=== PATIENT | female | born 1955 | race American Indian/Alaskan Native ===

== ENCOUNTER 2016-05-01 16:07 | Emergency (ER) | payer MEDICAID ==
[2016-05-01 19:19] LABS: Bilirubin,Urine NEG (Negative); Blood,Urine NEG (Negative); Ketones,Urine 20 mg/dL (Negative); Leukocyte Esterase,Urine NEG (Negative); Nitrite,Urine NEG (Negative); Urobilinogen,Urine < 2.0 mg/dL (<2.0)
[2016-05-01 19:20] LABS: Protein,Urine >500 mg/dL (Negative)
[2016-05-01 19:44] VITALS: BP 167/63
[2016-05-01] MEDS ORDERED: ZOFRAN IV ONE (20:19)
[2016-05-01] MEDS ORDERED: BENTYL IM ONE (20:20)
[2016-05-01 20:26] LABS: Basophils % (Auto) 0.7 % (0.0-1.8); Eosinophils % (Auto) 2.5 % (0.0-4.3); Hematocrit 37.4 % (30.3-42.9); Hemoglobin 11.8 gm/dl (10.1-14.3); Mean Corpuscular HGB Conc 32 % (30-34); Mean Corpuscular Hemoglobin 25 pg (28-32); Mean Corpuscular Volume 80 fl (79-97); Platelet Count 209 K/mm3 (140-440); Red Blood Count 4.66 M/mm3 (3.65-5.03); Red Cell Distribution Width 20.5 % (13.2-15.2); White Blood Count 6.1 K/mm3 (4.5-11.0)
--- NOTE | 2016-05-01 20:30 | Emergency Department Report ---
ED Abdominal Pain HPI - General Chief Complaint: Abdominal Pain Stated Complaint: ABDOMINAL PAIN Time Seen by Provider: 05/01/16 20:18 Source: patient, EMS Mode of arrival: Stretcher Limitations: Physical Limitation - History of Present Illness Initial Comments: Patient is a 61-year-old female with history of hypertension, diabetes, severe morbid obesity presented today because of abdominal pain. Patient states that she has had this pain on and off for the last many months and has been Vi here as well as another hospital for the pain. She states that she has a couple episodes of nonbloody nonbilious emesis over the last few days however she is having normal stool without any blood and at about 2 times a day. States she also ran out of her medications a week and half ago and has not made it to her primary doctor to have them refilled. No fevers, chills , dysuria, urinary frequency or any other new significant symptoms. Severity scale (0 -10): 0 - Related Data Home Medications Medication Instructions Recorded Confirmed Last Taken AtorvaSTATin [Lipitor] 20 mg PO QDAY 01/11/16 02/26/16 1 Day Ago 20 Citalopram [Celexa] 20 mg PO QDAY 01/11/16 02/26/16 1 Day Ago 20 Folic Acid [Folvite] 1 mg PO QDAY 01/11/16 02/26/16 1 Day Ago 1 Tizanidine HCl [tiZANidine] 2 mg PO Q8H 01/11/16 02/26/16 1 Day Ago 2 amLODIPine [Norvasc] 10 mg PO DAILY 01/11/16 02/26/16 1 Day Ago 10 Previous Rx's Medication Instructions Recorded Last Taken Type Furosemide [Lasix TAB] 40 mg PO DAILY #30 01/20/16 1 Day Ago Rx 40 Gabapentin [Gralise] 300 mg PO BID #30 01/20/16 1 Day Ago Rx 300 Insulin Glargine [Lantus VIAL] 20 units SUB-Q QAMDIAB 30 Days 01/20/16 1 Day Ago Rx 20 Insulin Glulisine [Apidra] 6 units SUB-Q AC 30 Days 01/20/16 1 Day Ago Rx 6 Bumetanide [Bumex] 1 mg PO QDAY #30 tablet 01/21/16 1 Day Ago Rx 1 Pantoprazole [Protonix TAB] 40 mg PO BID #60 tablet 01/21/16 1 Day Ago Rx 40 Warfarin [Coumadin] 5 mg PO QDAY #30 tablet 01/21/16 1 Day Ago Rx 5 HYDROcodone/APAP 5-325 [[place] 1 each PO Q6HR PRN #10 tablet 02/26/16 Unknown Rx 5-325 mg TAB] Acetaminophen [Acetaminophen TAB] 500 mg PO Q6HR #16 tablet 05/01/16 Unknown Rx Blood Sugar Diagnostic [Blood 1 each MC TIDAC #100 strip 05/01/16 Unknown Rx Glucose Test Strip] Allergies Allergy/AdvReac Type Severity Reaction Status Date / Time No Known Allergies Allergy Verified 01/11/16 00:24 ED Review of Systems ROS: Stated complaint: ABDOMINAL PAIN Other details as noted in HPI Comment: All other systems reviewed and negative Constitutional: denies: chills, fever Respiratory: denies: cough, shortness of breath Cardiovascular: denies: chest pain Gastrointestinal: abdominal pain Genitourinary: denies: dysuria Skin: denies: rash Psychiatric: denies: anxiety ED Past Medical Hx - Past Medical History Previous Medical History?: Yes Hx Hypertension: Yes Hx Congestive Heart Failure: Yes Hx Diabetes: Yes Additional medical history: High Cholesterol. morbid obesity - Social History Smoking Status: Never Smoker Substance Use Type: None - Medications Home Medications: Home Medications Medication Instructions Recorded Confirmed Last Taken Type AtorvaSTATin [Lipitor] 20 mg PO QDAY 01/11/16 02/26/16 1 Day Ago History 20 Citalopram [Celexa] 20 mg PO QDAY 01/11/16 02/26/16 1 Day Ago History 20 Folic Acid [Folvite] 1 mg PO QDAY 01/11/16 02/26/16 1 Day Ago History 1 Tizanidine HCl [tiZANidine] 2 mg PO Q8H 01/11/16 02/26/16 1 Day Ago History 2 amLODIPine [Norvasc] 10 mg PO DAILY 01/11/16 02/26/16 1 Day Ago History 10 Furosemide [Lasix TAB] 40 mg PO DAILY #30 01/20/16 02/26/16 1 Day Ago Rx 40 Gabapentin [Gralise] 300 mg PO BID #30 01/20/16 02/26/16 1 Day Ago Rx 300 Insulin Glargine [Lantus VIAL] 20 units SUB-Q QAMDIAB 30 Days 01/20/16 02/26/16 1 Day Ago Rx 20 Insulin Glulisine [Apidra] 6 units SUB-Q AC 30 Days 01/20/16 02/26/16 1 Day Ago Rx 6 Bumetanide [Bumex] 1 mg PO QDAY #30 tablet 01/21/16 02/26/16 1 Day Ago Rx 1 Pantoprazole [Protonix TAB] 40 mg PO BID #60 tablet 01/21/16 02/26/16 1 Day Ago Rx 40 Warfarin [Coumadin] 5 mg PO QDAY #30 tablet 01/21/16 02/26/16 1 Day Ago Rx 5 HYDROcodone/APAP 5-325 [[place] 1 each PO Q6HR PRN #10 tablet 02/26/16 Unknown Rx 5-325 mg TAB] Acetaminophen [Acetaminophen TAB] 500 mg PO Q6HR #16 tablet 05/01/16 Unknown Rx Blood Sugar Diagnostic [Blood 1 each MC TIDAC #100 strip 05/01/16 Unknown Rx Glucose Test Strip] ED Physical Exam - General Limitations: Physical Limitation General appearance: alert - Eye Eye exam: Present: normal appearance - ENT ENT exam: Present: mucous membranes dry - Respiratory Respiratory exam: Present: normal lung sounds bilaterally - Cardiovascular Cardiovascular Exam: Present: regular rate, normal heart sounds - GI/Abdominal GI/Abdominal exam: Present: soft, other (morbidly obese, mild diffuse tenderness , no guarding, no rebound). Absent: guarding, rebound - Neurological Exam Neurological exam: Present: alert, oriented X3 - Psychiatric Psychiatric exam: Present: normal affect ED Course Vital Signs 05/01/16 05/01/16 05/01/16 18:12 18:25 19:09 Temperature 98.2 F 98.2 F 98.4 F Pulse Rate 89 89 81 Respiratory 16 18 20 Rate Blood Pressure 158/85 Blood Pressure 158/85 167/63 [Left] O2 Sat by Pulse 99 99 Oximetry ED Medical Decision Making - Lab Data Result diagrams: 05/01/16 19:56 05/01/16 19:56 - Medical Decision Making Patient has chronic abdominal pain. Labs here are unremarkable other than hyperglycemia. Patient to receive 1 L normal saline boluses as 5 units of insulin. I discussed the results of the labs here with the patient. Given that the patient has chronic symptoms and no acute significant abnormalities and her exam or lab work, plan will be to discharge her. She understands and is okay with the plan to go home and follow-up with her primary doctor. Critical care attestation.: If time is entered above; I have spent that time in minutes in the direct care of this critically ill patient, excluding procedure time. ED Disposition Clinical Impression: Abdominal pain in female Disposition: DISCHARGED TO HOME OR SELFCARE Is pt being admited?: No Does the pt Need Aspirin: No Condition: Stable Instructions: Abdominal Pain (ED) Additional Instructions: Please follow up with your primary care doctor as well as it solutions architect in the next 3-5 days. Return to emergency room if you have worsening of your pain , or any new symptoms. Prescriptions: Acetaminophen [Acetaminophen TAB] 500 mg PO Q6HR #16 tablet Blood Sugar Diagnostic [Blood Glucose Test Strip] 1 each MC TIDAC #100 strip Referrals: PRIMARY CARE, [Primary Care Provider] - 3-5 Days Time of Disposition: 22:48
[2016-05-01 20:34] LABS: Alanine Aminotransferase 16 units/L (7-56); Albumin 2.7 g/dL (3.9-5); Albumin/Globulin Ratio 0.8 %; Alkaline Phosphatase 76 units/L (35-129); Anion Gap 15 mmol/L; BUN/Creatinine Ratio 5.55; Bilirubin,Total 0.5 mg/dL (0.1-1.2); Blood Urea Nitrogen 5 mg/dL (7-17); Calcium 8.6 mg/dL (8.4-10.2); Carbon Dioxide 30 mmol/L (22-30); Chloride 101.7 mmol/L (98-107); Glucose 341 mg/dL (65-100); Lipase 19 units/L (13-60); Potassium 4.4 mmol/L (3.6-5.0); Sodium 142 mmol/L (137-145); Total Protein 6.2 g/dL (6.3-8.2)
[2016-05-01] MEDS ORDERED: NACL 0.9% 1000 ML 1,000 ML IV ONE (21:12)
[2016-05-02] MEDS ORDERED: ZOFRAN PO ONE (02:11)
[2016-05-02] MEDS ORDERED: ZOFRAN ODT PO ONE (02:11)
== END 2016-05-02 03:39 | disposition home or self-care (01) ==
LOC: ED 16:07
DX: R10.9 Unspecified abdominal pain (principal); I10 Essential (primary) hypertension; I50.9 Heart failure, unspecified; E11.9 Type 2 diabetes mellitus without complications; E78.00 Pure hypercholesterolemia, unspecified; E66.01 Morbid (severe) obesity due to excess calories
CPT/HCPCS: 36415; 51702; 80053; 81001; 82962; 83690; 85025; 96361; 96372; 96374; 96375; 99284; J0500; J2405; J7030; J1815; Q0162

== ENCOUNTER 2016-07-08 22:24 | Inpatient (IN) | payer MEDICAID ==
[2016-07-09] MEDS ORDERED: ZOFRAN IV ONE (00:34)
[2016-07-09] MEDS ORDERED: DILAUDID IV ONE (00:34)
[2016-07-09 00:35] LABS: INR 1.12 (0.87-1.13)
[2016-07-09 00:50] LABS: Creatine Kinase MB < 1.0 ng/mL (0.0-4.0)
[2016-07-09 00:51] LABS: Alanine Aminotransferase 12 units/L (7-56); Albumin 1.8 g/dL (3.9-5); Albumin/Globulin Ratio 0.3 %; Alkaline Phosphatase 160 units/L (35-129); Anion Gap 24 mmol/L; Bilirubin,Total 0.5 mg/dL (0.1-1.2); Blood Urea Nitrogen 30 mg/dL (7-17); Calcium 8.7 mg/dL (8.4-10.2); Carbon Dioxide 18 mmol/L (22-30); Creatine Kinase 137 units/L (30-135); Glucose 241 mg/dL (65-100); Lipase 15 units/L (13-60); Potassium 5.8 mmol/L (3.6-5.0); Sodium 137 mmol/L (137-145); Total Protein 8.1 g/dL (6.3-8.2)
[2016-07-09 00:53] LABS: Hematocrit 39.4 % (30.3-42.9); Hemoglobin 12.2 gm/dl (10.1-14.3); Mean Corpuscular HGB Conc 31 % (30-34); Mean Corpuscular Volume 81 fl (79-97); Platelet Count 530 K/mm3 (140-440); Red Blood Count 4.86 M/mm3 (3.65-5.03); Red Cell Distribution Width 19.7 % (13.2-15.2); White Blood Count 8.5 K/mm3 (4.5-11.0)
[2016-07-09 00:54] LABS: Mean Corpuscular Hemoglobin 25 pg (28-32)
--- NOTE | 2016-07-09 00:54 | Emergency Department Report ---
ED Abdominal Pain HPI - General Chief Complaint: Abdominal Pain Stated Complaint: POSS SEPSIS Time Seen by Provider: 07/09/16 00:33 Source: patient, family, EMS, old records reviewed (patient was admitted here January 2016 for GI bleed, anemia, supratherapeutic INR on Coumadin. Patient states Coumadin was discontinued after this admission.) Mode of arrival: Stretcher Limitations: Altered Mental Status, Physical Limitation - History of Present Illness Initial Comments: 61-year-old female with a past medical history of morbid obesity, insulin dependent diabetes, diastolic CHF, hypertension, and elevated cholesterol presents to the hospital complaints of abdominal pain. Patient complains of generalized crampy intermittent abdominal pain rated as 9/10 in intensity. Worse with palpation. Patient has had nausea without vomiting and is tolerating by mouth intake. Patient had diarrhea for 3 days however, this stopped the last 2 days and she started to have a repeat bowel movement today. No reports of melena, hematochezia, or hematemesis. Patient is bedbound since last year. She has rehabilitation nurses and home care nurses come to the home to help her with her ADLs. For the past one week patient has had significant skin breakdown to her inner thighs upper leg area secondary to stool and urine contact. Patient presented to the ER covered in feces. Patient currently has hoarse voice secondary to crying all day as per . They are also complains of shortness of breath and worsening leg edema. They denies sleep apnea and BiPAP use. - Related Data Home Medications Medication Instructions Recorded Confirmed Last Taken AtorvaSTATin [Lipitor] 20 mg PO QDAY 01/11/16 02/26/16 1 Day Ago 20 Citalopram [Celexa] 20 mg PO QDAY 01/11/16 02/26/16 1 Day Ago 20 Folic Acid [Folvite] 1 mg PO QDAY 01/11/16 02/26/16 1 Day Ago 1 Tizanidine HCl [tiZANidine] 2 mg PO Q8H 01/11/16 02/26/16 1 Day Ago 2 amLODIPine [Norvasc] 10 mg PO DAILY 01/11/16 02/26/16 1 Day Ago 10 Previous Rx's Medication Instructions Recorded Last Taken Type Furosemide [Lasix TAB] 40 mg PO DAILY #30 01/20/16 1 Day Ago Rx 40 Gabapentin [Gralise] 300 mg PO BID #30 01/20/16 1 Day Ago Rx 300 Insulin Glargine [Lantus VIAL] 20 units SUB-Q QAMDIAB 30 Days 01/20/16 1 Day Ago Rx 20 Insulin Glulisine [Apidra] 6 units SUB-Q AC 30 Days 01/20/16 1 Day Ago Rx 6 Bumetanide [Bumex] 1 mg PO QDAY #30 tablet 01/21/16 1 Day Ago Rx 1 Pantoprazole [Protonix TAB] 40 mg PO BID #60 tablet 01/21/16 1 Day Ago Rx 40 Warfarin [Coumadin] 5 mg PO QDAY #30 tablet 01/21/16 1 Day Ago Rx 5 HYDROcodone/APAP 5-325 [[place] 1 each PO Q6HR PRN #10 tablet 02/26/16 Unknown Rx 5-325 mg TAB] Acetaminophen [Acetaminophen TAB] 500 mg PO Q6HR #16 tablet 05/01/16 Unknown Rx Blood Sugar Diagnostic [Blood 1 each MC TIDAC #100 strip 05/01/16 Unknown Rx Glucose Test Strip] Allergies Allergy/AdvReac Type Severity Reaction Status Date / Time No Known Allergies Allergy Verified 01/11/16 00:24 ED Review of Systems ROS: Stated complaint: POSS SEPSIS Other details as noted in HPI Comment: All other systems reviewed and negative Other: Constitutional: No fevers chills Eyes: No eye pain visual changes ENT: No ear pain or throat pain Neck: Denies pain Respiratory: Denies cough wheezing shortness of breath Cardiovascular: Denies chest pain, palpitations, syncope GI: as per hpi : Denies dysuria Musculoskeletal: Denies back pain Skin: as per hpi Neurologic: Denies headache, numbness, weakness Psychiatric: Denies suicidal ideation, hallucinations ED Past Medical Hx - Past Medical History Hx Hypertension: Yes Hx Congestive Heart Failure: Yes Hx Diabetes: Yes Additional medical history: High Cholesterol. morbid obesity - Surgical History Additional Surgical History: L ankle, lumpectomy - Social History Smoking Status: Never Smoker Substance Use Type: None - Medications Home Medications: Home Medications Medication Instructions Recorded Confirmed Last Taken Type AtorvaSTATin [Lipitor] 20 mg PO QDAY 01/11/16 02/26/16 1 Day Ago History 20 Citalopram [Celexa] 20 mg PO QDAY 01/11/16 02/26/16 1 Day Ago History 20 Folic Acid [Folvite] 1 mg PO QDAY 01/11/16 02/26/16 1 Day Ago History 1 Tizanidine HCl [tiZANidine] 2 mg PO Q8H 01/11/16 02/26/16 1 Day Ago History 2 amLODIPine [Norvasc] 10 mg PO DAILY 01/11/16 02/26/16 1 Day Ago History 10 Furosemide [Lasix TAB] 40 mg PO DAILY #30 01/20/16 02/26/16 1 Day Ago Rx 40 Gabapentin [Gralise] 300 mg PO BID #30 01/20/16 02/26/16 1 Day Ago Rx 300 Insulin Glargine [Lantus VIAL] 20 units SUB-Q QAMDIAB 30 Days 01/20/16 02/26/16 1 Day Ago Rx 20 Insulin Glulisine [Apidra] 6 units SUB-Q AC 30 Days 01/20/16 02/26/16 1 Day Ago Rx 6 Bumetanide [Bumex] 1 mg PO QDAY #30 tablet 01/21/16 02/26/16 1 Day Ago Rx 1 Pantoprazole [Protonix TAB] 40 mg PO BID #60 tablet 01/21/16 02/26/16 1 Day Ago Rx 40 Warfarin [Coumadin] 5 mg PO QDAY #30 tablet 01/21/16 02/26/16 1 Day Ago Rx 5 HYDROcodone/APAP 5-325 [[place] 1 each PO Q6HR PRN #10 tablet 02/26/16 Unknown Rx 5-325 mg TAB] Acetaminophen [Acetaminophen TAB] 500 mg PO Q6HR #16 tablet 05/01/16 Unknown Rx Blood Sugar Diagnostic [Blood 1 each TIDAC #100 strip 05/01/16 Unknown Rx Glucose Test Strip] ED Physical Exam - General Limitations: Altered Mental Status, Physical Limitation - Other Other exam information: General: Morbidly obese Head exam: Atraumatic, normocephalic Eyes exam: Normal appearance, pupils equal reactive to light, extraocular movements intact ENT: Moist mucous membrane, normal oropharynx Neck exam: Normal inspection, full range of motion, no meningismus nontender 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 Cardiovascular: Regular rate and rhythm Abdomen: Soft, nondistended, generalized abdominal tenderness Extremity: Full range of motion, b/l lower extremity edema Back: Normal Inspection, full range of motion, no tenderness Neurologic: Alert, oriented x3, cranial nerves intact, no motor or sensory deficit Psychiatric: normal affect, normal mood Skin: Patient has multiple skin ulcerations to the left labium, bilateral and left thighs, rectal area, and posterior thighs ED Course Vital Signs 07/08/16 07/08/16 07/08/16 22:45 23:38 23:50 Temperature 98.6 F Pulse Rate 85 Pulse Rate [ Bilateral Throughout] Respiratory 20 Rate Respiratory Rate [Bilateral Throughout] Blood Pressure 130/58 O2 Sat by Pulse 100 99 85 Oximetry 07/08/16 07/09/16 07/09/16 23:56 00:02 00:08 Temperature Pulse Rate Pulse Rate [ Bilateral Throughout] Respiratory Rate Respiratory Rate [Bilateral Throughout] Blood Pressure O2 Sat by Pulse 99 97 100 Oximetry 07/09/16 07/09/16 07/09/16 00:10 00:16 00:20 Temperature Pulse Rate Pulse Rate [ Bilateral Throughout] Respiratory 20 Rate Respiratory Rate [Bilateral Throughout] Blood Pressure O2 Sat by Pulse 100 97 96 Oximetry 07/09/16 07/09/16 07/09/16 00:26 00:30 00:36 Temperature Pulse Rate Pulse Rate [ Bilateral Throughout] Respiratory Rate Respiratory Rate [Bilateral Throughout] Blood Pressure O2 Sat by Pulse 97 69 L 97 Oximetry 07/09/16 07/09/16 07/09/16 00:40 00:46 00:51 Temperature Pulse Rate 80 Pulse Rate [ Bilateral Throughout] Respiratory 31 H Rate Respiratory Rate [Bilateral Throughout] Blood Pressure 101/46 101/46 101/46 O2 Sat by Pulse 97 100 96 Oximetry 07/09/16 07/09/16 01:45 02:25 Temperature Pulse Rate Pulse Rate [ 85 88 Bilateral Throughout] Respiratory Rate Respiratory 24 22 Rate [Bilateral Throughout] Blood Pressure O2 Sat by Pulse Oximetry - Reevaluation(s) Reevaluation #1: 07/09/16 04:45 repeat K ordered after meds. ED Medical Decision Making - Lab Data Result diagrams: 07/08/16 23:55 07/08/16 23:55 Lab Results 07/08/16 07/08/16 07/08/16 Range/Units 23:55 23:55 23:55 WBC 8.5 (4.5-11.0) K/mm3 RBC 4.86 (3.65-5.03) M/mm3 Hgb 12.2 (10.1-14.3) gm/dl Hct 39.4 (30.3-42.9) % MCV 81 (79-97) fl MCH 25 L (28-32) pg MCHC 31 (30-34) % RDW 19.7 H (13.2-15.2) % Plt Count 530 H (140-440) K/mm3 Add Manual Diff Complete Total Counted 100 Seg Neuts % (Manual) 47.0 (40.0-70.0) % Band Neutrophils % 21.0 % Lymphocytes % (Manual) 27.0 (13.4-35.0) % Reactive Lymphs % (Man) 0 % Monocytes % (Manual) 2.0 (0.0-7.3) % Eosinophils % (Manual) 0 (0.0-4.3) % Basophils % (Manual) 0 (0.0-1.8) % Metamyelocytes % 3.0 % Myelocytes % 0 % Promyelocytes % 0 % Blast Cells % 0 % Nucleated RBC % 4.0 H (0.0-0.9) % Seg Neutrophils # Man 4.0 (1.8-7.7) K/mm3 Band Neutrophils # 1.8 K/mm3 Lymphocytes # (Manual) 2.3 (1.2-5.4) K/mm3 Abs React Lymphs (Man) 0.0 K/mm3 Monocytes # (Manual) 0.2 (0.0-0.8) K/mm3 Eosinophils # (Manual) 0.0 (0.0-0.4) K/mm3 Basophils # (Manual) 0.0 (0.0-0.1) K/mm3 Metamyelocytes # 0.3 K/mm3 Myelocytes # 0.0 K/mm3 Promyelocytes # 0.0 K/mm3 Blast Cells # 0.0 K/mm3 WBC Morphology Not Reportable Hypersegmented Neuts Not Reportable Hyposegmented Neuts Not Reportable Hypogranular Neuts Not Reportable Smudge Cells Not Reportable Toxic Granulation Not Reportable Toxic Vacuolation Not Reportable Dohle Bodies Not Reportable Pelger-Huet Anomaly Not Reportable Feli Rods Not Reportable Platelet Estimate Consistent w auto Clumped Platelets Not Reportable Plt Clumps, EDTA Not Reportable Large Platelets Few Giant Platelets Not Reportable Platelet Satelliting Not Reportable Plt Morphology Comment Not Reportable RBC Morphology Not Reportable Dimorphic RBCs Not Reportable Polychromasia Not Reportable Hypochromasia 1+ Poikilocytosis Not Reportable Anisocytosis 1+ Microcytosis Not Reportable Macrocytosis Not Reportable Spherocytes Not Reportable Pappenheimer Bodies Not Reportable Sickle Cells Not Reportable Target Cells Not Reportable Tear Drop Cells Not Reportable Ovalocytes Not Reportable Helmet Cells Not Reportable [place] Bodies Not Reportable [place] Rings Not Reportable [place] Cells Not Reportable Bite Cells Not Reportable Crenated Cell Not Reportable Elliptocytes Not Reportable Acanthocytes (Spur) Not Reportable Rouleaux Not Reportable Hemoglobin C Crystals Not Reportable Schistocytes Not Reportable Malaria parasites Not Reportable Manny Bodies Not Reportable Hem Pathologist Commnt No PT 14.3 (12.2-14.9) Sec. INR 1.12 (0.87-1.13) APTT 20.0 L (24.2-36.6) Sec. Sodium 137 (137-145) mmol/L Potassium 5.8 H (3.6-5.0) mmol/L Chloride 101.0 (98-107) mmol/L Carbon Dioxide 18 L (22-30) mmol/L Anion Gap 24 mmol/L BUN 30 H (7-17) mg/dL Creatinine 1.0 (0.7-1.2) mg/dL Estimated GFR > 60 ml/min BUN/Creatinine Ratio 30.00 % Glucose 241 H (65-100) mg/dL Calcium 8.7 (8.4-10.2) mg/dL Total Bilirubin 0.5 (0.1-1.2) mg/dL AST 17 (5-40) units/L ALT 12 (7-56) units/L Alkaline Phosphatase 160 H (35-129) units/L Total Creatine Kinase 137 H (30-135) units/L CK-MB (CK-2) < 1.0 (0.0-4.0) ng/mL CK-MB (CK-2) Rel Index 0.7 (0-4) Troponin T 0.016 (0.00-0.029) ng/mL NT-Pro-B Natriuret Pep 3619 H (0-900) pg/mL Total Protein 8.1 (6.3-8.2) g/dL Albumin 1.8 L (3.9-5) g/dL Albumin/Globulin Ratio 0.3 % Lipase 15 (13-60) units/L - EKG Data -: EKG Interpreted by Me (nsr raet 76, marked sinus arrhythmia) - Medical Decision Making Patient received Dilaudid and Zofran. For hyperkalemia patient received D50, insulin, bicarbonate, Lasix, and albuterol. Repeat potassium ordered. Attempted to obtain a CT abdomen and pelvis however, patient needs to weight requirement however, patient will not fit circumferentially into the CT scanner. Patient has significant ulcerations and will require additional care and wound care. Patient admitted to the hospital for further treatment. york placed in ED due to significant skin breakdown - Differential Diagnosis gastroenteritis, diverticulitis, appendicitis, decubitus ulcers Critical Care Time: No Critical care attestation.: If time is entered above; I have spent that time in minutes in the direct care of this critically ill patient, excluding procedure time. ED Disposition Clinical Impression: Morbid obesity, Abdominal pain, Acute diarrhea, Acute on chronic diastolic ( congestive) heart failure, Decubitus ulcers, Hyperkalemia Disposition: OP ADMITTED IP TO THIS HOSP Is pt being admited?: Yes Condition: Stable Time of Disposition: 04:45 (Dr Crenshaw/hosp)
[2016-07-09] MEDS ORDERED: SODIUM BICARBONATE IV ONE (01:02)
[2016-07-09] MEDS ORDERED: PROVENTIL IH ONE (01:02)
[2016-07-09] MEDS ORDERED: LASIX IV ONE (01:02)
[2016-07-09] MEDS ORDERED: D50W (25GM) IV ONE (01:03)
[2016-07-09 01:45] LABS: Basophils % (Manual) 0 % (0.0-1.8); Blastocytes % (Manual) 0 %; Eosinophils % (Manual) 0 % (0.0-4.3)
[2016-07-09 01:46] LABS: Anisocytosis 1+; Diff Status Complete; Hypochromasia 1+; Large Platelets Few; Platelet Estimate Consistent w Auto
[2016-07-09] MEDS ORDERED: D50W (25GM) IV PRN ×2 (06:04→15:21)
[2016-07-09] MEDS ORDERED: MILK OF MAGNESIA PO PRN (06:04)
[2016-07-09] MEDS ORDERED: DULCOLAX PR PRN (06:04)
[2016-07-09] MEDS ORDERED: ZOFRAN IV PRN (06:04)
[2016-07-09] MEDS ORDERED: TYLENOL PO PRN (06:04)
--- NOTE | 2016-07-09 06:06 | History and Physical Report ---
History of Present Illness Date of examination: 07/09/16 History of present illness: 59-year-old woman with a history of hypertension, diabetes, CHF, hyperlipidemia , A. fib, morbid obesity, bedbound comes emergency room with complaints of abdominal pain that started 4 days ago. Abdominal pain is in the bilateral lower quadrants which she described as a sharp pain, intermittent in nature, unable to [place] the last 4, intensityv 6/10, no radiation and she cannot identify exacerbating or relieving factors. Patient stated that she has been constipated over the last 4 days, she took medication for constipation, and had diarrhea over the last 2 days. She's had skin breakdown between her legs, she states the cream that she's been using on is not working. She'll resume the emergency room covered in stool. Emergency room physician tried to obtain a CAT scan but the patient was unable to fit into CT there to body habitus. Also admits to nausea vomiting. Also admits to increasing lower extremity edema, shortness of breath, PND. She stated she was taken off her Lasix and Coumadin on the last admission Patient denies chest pain, palpitation, shortness of breath, cough, hematochezia, dysuria, frequency, focal weakness, dysarthria, fever chills, polydipsia polyuria, hot or cold intolerance, easy bruisability, or rash or bleeding from mucosal membrane, rhinorrhea, epistaxis, earache, tinnitus, blurry vision, eye discharge, anxiety, depression. Other review of systems negative PAST SURGICAL HISTORY: Ankle SOCIAL HISTORY: Denies alcohol, tobacco, drugs FAMILY HISTORY: Hypertension Medications and Allergies Allergies Allergy/AdvReac Type Severity Reaction Status Date / Time No Known Allergies Allergy Verified 01/11/16 00:24 Home Medications Medication Instructions Recorded Confirmed Last Taken Type AtorvaSTATin [Lipitor] 20 mg PO QDAY 01/11/16 02/26/16 1 Day Ago History 20 Citalopram [Celexa] 20 mg PO QDAY 01/11/16 02/26/16 1 Day Ago History 20 Folic Acid [Folvite] 1 mg PO QDAY 01/11/16 02/26/16 1 Day Ago History 1 Tizanidine HCl [tiZANidine] 2 mg PO Q8H 01/11/16 02/26/16 1 Day Ago History 2 amLODIPine [Norvasc] 10 mg PO DAILY 01/11/16 02/26/16 1 Day Ago History 10 Furosemide [Lasix TAB] 40 mg PO DAILY #30 01/20/16 02/26/16 1 Day Ago Rx 40 Gabapentin [Gralise] 300 mg PO BID #30 01/20/16 02/26/16 1 Day Ago Rx 300 Insulin Glargine [Lantus VIAL] 20 units SUB-Q QAMDIAB 30 Days 01/20/16 02/26/16 1 Day Ago Rx 20 Insulin Glulisine [Apidra] 6 units SUB-Q AC 30 Days 01/20/16 02/26/16 1 Day Ago Rx 6 Bumetanide [Bumex] 1 mg PO QDAY #30 tablet 01/21/16 02/26/16 1 Day Ago Rx 1 Pantoprazole [Protonix TAB] 40 mg PO BID #60 tablet 01/21/16 02/26/16 1 Day Ago Rx 40 Warfarin [Coumadin] 5 mg PO QDAY #30 tablet 01/21/16 02/26/16 1 Day Ago Rx 5 HYDROcodone/APAP 5-325 [[place] 1 each PO Q6HR PRN #10 tablet 02/26/16 Unknown Rx 5-325 mg TAB] Acetaminophen [Acetaminophen TAB] 500 mg PO Q6HR #16 tablet 05/01/16 Unknown Rx Blood Sugar Diagnostic [Blood 1 each TIDAC #100 strip 05/01/16 Unknown Rx Glucose Test Strip] Exam - Physical Exam Narrative exam: Gen. appearance: Patient lying in bed, no apparent distress HEENT: Normocephalic, atraumatic, pupils equally round and reactive to light, extraocular movement intact, and no sclericterus,. No JVD or thyromegaly or nodule,neck supple, no carotid bruit ,mucous membranes moist, no exudate or erythema Heart: S1, S2, regular rate and rhythm Lungs: Difficult to assess, breathing comfortable Abdomen: Positive bowel sounds, nontender, nondistended, no organomegaly Extremity:+edema, cyanosis, clubbing Skin: Skin breakdown on the right inner thighs, sacral decubitus, no nodules, warm, dry Neuro: Oriented 3, cranial nerves II-12 intact, speech is fluent, motor and sensory intact - Constitutional Vitals: Temp Pulse Resp BP Pulse Ox 98.6 F 84 29 H 94/49 100 07/08/16 22:45 07/09/16 04:40 07/09/16 04:40 07/09/16 04:40 07/09/16 04:20 Results - Labs CBC & Chem 7: 07/08/16 23:55 07/09/16 04:52 Labs: Abnormal lab results 07/08/16 07/08/16 07/08/16 Range/Units 23:55 23:55 23:55 MCH 25 L (28-32) pg RDW 19.7 H (13.2-15.2) % Plt Count 530 H (140-440) K/mm3 Nucleated RBC % 4.0 H (0.0-0.9) % APTT 20.0 L (24.2-36.6) Sec. Potassium 5.8 H (3.6-5.0) mmol/L Carbon Dioxide 18 L (22-30) mmol/L BUN 30 H (7-17) mg/dL Glucose 241 H (65-100) mg/dL Alkaline Phosphatase 160 H (35-129) units/L Total Creatine Kinase 137 H (30-135) units/L NT-Pro-B Natriuret Pep 3619 H (0-900) pg/mL Albumin 1.8 L (3.9-5) g/dL - Imaging and Cardiology EKG: image reviewed Chest x-ray: image reviewed Assessment and Plan CHF, acute on chronic diastolic Abdominal pain, unclear etiology, probably related to constipation Skin breakdown on the inner thighs, significant decubitus Hypertension Diabetes Hyperlipidemia A. fib Morbid obesity Admits medicine Diuresed with IV Lasix, hold RJ inhibitor secondary to renal failure the last admission, start aspirin Check cardiac enzymes, echo, consult cardiology Hold beta kalyani, blood pressure will not tolerate Monitor I's and O's, daily weights Obtain abdominal x-ray, consult wound care Check fingersticks and initiate insulin sliding scale Start DVT prophylaxis
[2016-07-09 06:56] LABS: Creatine Kinase MB < 1.0 ng/mL (0.0-4.0)
[2016-07-09 06:57] LABS: Creatine Kinase 93 units/L (30-135)
--- NOTE | 2016-07-09 07:02 | Admit Criteria Form ---
Admission Criteria Documentation: HEART FAILURE Clinical Indications for Admission to Inpatient Care (Place 'X' for any and all applicable criteria): Admission is indicated by ANY ONE of the following(1)(2)(3)(4): [ ]I. Severe electrolyte abnormalities requiring inpatient care(9) [ ]II. Hemodynamic instability [ ]III. Anasarca [ ]IV. Acute cardiac ischemia causing or associated with failure (Also use Angina or Myocardial Infarction as appropriate) [ ]V. Cardiac arrhythmias of immediate concern [ ]. Precipitating cause for acute decompensation (eg, pneumonia, pulmonary embolism) requires inpatient care [ ]VII. Pulmonary edema that is very severe (eg, mechanical ventilation needed, imminent or likely, need for 100% oxygen to keep oxygen saturation above 90%) [X ]VIII. Inpatient admission required rather than observation care (Also use Heart Failure: Observation Care as appropriate) because of ANY ONE of the following: [ ]a) Pulmonary edema that is severe or worsening as indicated by ALL of the following: [ ]i) New need for oxygen therapy to keep oxygen saturation above 90% (or increased FiO2 need from baseline) [ ]ii) Has not improved sufficiently with emergency department or observation care IV diuretics or other heart failure treatments[C] [ ]b) Cognitive impairment that is severe or persistent [ ]c) Increased creatinine (new on laboratory test) with reduction of more than 50% in estimated glomerular filtration rate from baseline. [ ]d) Acute renal insufficiency (progressively (ongoing) rising creatinine (known from past laboratory test) with reduction of more than 25% in estimated glomerular filtration rate from baseline) [ ]e) Acute peripheral ischemia (eg, pulseless, cool, mottled, or cyanotic extremity) [ ]f) Acute renal failure [ ]g) Supplemental O2 or respiratory treatment for >24 hr that are performable only in acute inpatient setting [ ]h) Pulmonary artery catheter monitoring [X ]i) Other condition, treatment or monitoring requiring inpatient admission [ ]IX. Contraindications and/or Inappropriate clinical situations for Observational Care in patients with Heart Failure, when ANY ONE of the following is required: [ ]a) Patient with High risk of cardiac embolism (e.g, patients with previous cardiac embolism, LVEF < 40%, age >75 and patients with prosthetic valve) 18 [ ]b) Patient with Moderate risk including DM patient, CAD and patient aged 65-75 [ ]c) Patient with any change in cardiac biomarker especially troponin should be managed as high risk in an inpatient setting 19 [ ]d) Physician judgement irrespective of ECG and other diagnostic findings 20 [ ]e) Patients with hyponatremia have high risk for mortality and require more extensive care and length of stay 21 [ ]f) Need for large volume diuresis 21 [ ]g) Presence of renal insufficiency or hypotension limiting speed of diuresis 21 [ ]h) Acute cardiac Ischemia in the elderly 21 [ ]i) Patients with a 30 day risk of mortality based on a multidimensional prognostic index (MPI) [J,]21 [X ]X. General contraindications and/or Inappropriate clinical situations for Observational Care in patients with Heart Failure, when ANY ONE of the following is required: [X ]a) Prediction of prolongation of LOS based on ANY ONE of the following may be considered as a contraindication for observational care 2, 3, 4, 5, 6, 7, 8 , 9, 10, 11 [ ]i) Age > 65 yrs. [ X]ii) Patient arriving by ambulance [ ]iii) Patient with high acuity [ ]iv) Patient requiring vital sign monitoring [ ]v) Patient on IV medication [ ]b) Systolic blood pressures 180mmHg 3,12 [ ]c) Patient with altered mental status including delirium and other alteration of consciousness, (3) [ ]d) Patient whose discharge disposition will be to a [place] [facility] home or rehabilitation home should not be managed in Emergency Department Observation Unit. CMS rule requires 3 days hospital stay before such placement.3,13 [ ]e) Patient with failure to thrive due to broad array of etiologies 3,16,17 [ ]f) Inability to ambulate 3,14 Extended stay beyond goal length of stay may be needed for(1)(3)(21)(25): [ ]a) Cardiac ischemia, confirmed or suspected as precipitant [ ]b) Cardiogenic shock or refractory pulmonary edema [ ]c) Acute kidney injury or renal failure [ ]d) Respiratory failure (eg, need for noninvasive or invasive mechanical ventilation) (23) [ ]e) Concomitant pneumonia or significant electrolyte abnormality (eg, severe hyponatremia) [ ]f) Newly diagnosed (new onset) atrial fibrillation [ ]g) Stage IV chronic kidney disease (estimated glomerular filtration rate of less than 30 mL/min/1.73m2 (0.50 mL/sec/1.73m2), and not previously on chronic dialysis The original [facility] content created by [facility] has been revised. The portions of the content which have been revised are identified through the use of italic text or in bold, and [facility] has neither reviewed nor approved the modified material. All other unmodified content is copyright [facility]. Please see references footnoted in the original [facility] edition 2016 Admission Criteria Met: Yes
--- NOTE | 2016-07-09 07:20 | XRay Report ---
ABDOMEN, 2 views: History: Abdominal pain. There is limited penetration secondary to body habitus. There is no evidence of free air beneath the diaphragms. The gas pattern within the abdomen is unremarkable. There is no evidence of bowel dilatation, significant air-fluid levels, or pathologic calcifications. Organ shadows are unremarkable. IMPRESSION: Unremarkable abdomen.
--- NOTE | 2016-07-09 09:37 | XRay Report ---
PORTABLE CHEST INDICATION: Shortness of breath. COMPARISON: 01/12/2016 FINDINGS: Portable, frontal chest radiographs, 2 images again demonstrate prominent/increased bronchovascular markings centrally and mild aortic knob calcifications. Mild exaggerated cardiomediastinal silhouette, though overall smaller since the prior exam. Slight mid to lower lung zones pulmonary haziness nonspecific and may in part be technical on this exam limited due to patient's body habitus. EKG leads. Stable bones. CONCLUSION: No significant acute chest process suspected radiographically, as described. Please correlate. Thank you for the opportunity to participate in this patient's care.
[2016-07-09] MEDS: ASPIRIN PO SCH (10:00)
[2016-07-09] MEDS: LOVENOX SUB-Q SCH (10:27)
--- NOTE | 2016-07-09 13:17 | Progress Note ---
Assessment and Plan Assessment and plan: Patient is a 61-year-old woman with a plethora comorbidities including extreme obesity BMI 73.2, type 2 diabetes mellitus, hypertension and diastolic heart failure who presents with abdominal pain abdominal x-ray unremarkable as well as chest x-ray although the proBNP is 3619 Suspect acute on chronic HFrEF Morbid obesity, bmi 73.2 causing most of these co-morbities, consider gastric bypass Severe protein malnurition, bmi 1.8, discuss gastric bypass History Interval history: Patient seen and examined. Follow up on abdominal pain which is slightly better. Overnight uneventful. No cp, sob, n/v or severe headaches. Imaging, old records, testing, labs, nursing notes reviewed. Plan discussed with patient. Hospitalist Physical - Physical exam Narrative exam: GEN: Morbid obesity BMI 73.2, NAD, AWAKE, ALERT, ORIENTATED 3 HEENT: NCAT, PERRL, EOMI, OP CLEAR NECK: SUPPLE, NO THYROMEGALY, NO JVD, NO LAD CVS: RRR, NORMAL S1S2 LUNGS/CHEST: CTA B, NORMAL CHEST EXPANSION B, GOOD AIR ENTRY B ABD: SOFT NTND, GBS, NO REBOUND OR GUARDING MSK: FROM X 4 EXTREMITIES NEURO: CN 2-12 GROSSLY INTACT, NO new FOCAL DEFICITS PSY: CALM - Constitutional Vitals: Temp Pulse Resp BP Pulse Ox 97.4 F L 81 24 92/44 100 07/09/16 12:00 07/09/16 08:16 07/09/16 08:16 07/09/16 08:16 07/09/16 08:16 Results - Labs CBC & Chem 7: 07/08/16 23:55 07/09/16 04:52 Labs: Laboratory Last Values WBC 8.5 K/mm3 (4.5-11.0) 07/08/16 23:55 RBC 4.86 M/mm3 (3.65-5.03) 07/08/16 23:55 Hgb 12.2 gm/dl (10.1-14.3) 07/08/16 23:55 Hct 39.4 % (30.3-42.9) 07/08/16 23:55 MCV 81 fl (79-97) 07/08/16 23:55 MCH 25 pg (28-32) L 07/08/16 23:55 MCHC 31 % (30-34) 07/08/16 23:55 RDW 19.7 % (13.2-15.2) H 07/08/16 23:55 Plt Count 530 K/mm3 (140-440) H 07/08/16 23:55 Add Manual Diff Complete 07/08/16 23:55 Total Counted 100 07/08/16 23:55 Seg Neuts % (Manual) 47.0 % (40.0-70.0) 07/08/16 23:55 Band Neutrophils % 21.0 % 07/08/16 23:55 Lymphocytes % (Manual) 27.0 % (13.4-35.0) 07/08/16 23:55 Reactive Lymphs % (Man) 0 % 07/08/16 23:55 Monocytes % (Manual) 2.0 % (0.0-7.3) 07/08/16 23:55 Eosinophils % (Manual) 0 % (0.0-4.3) 07/08/16 23:55 Basophils % (Manual) 0 % (0.0-1.8) 07/08/16 23:55 Metamyelocytes % 3.0 % 07/08/16 23:55 Myelocytes % 0 % 07/08/16 23:55 Promyelocytes % 0 % 07/08/16 23:55 Blast Cells % 0 % 07/08/16 23:55 Nucleated RBC % 4.0 % (0.0-0.9) H 07/08/16 23:55 Seg Neutrophils # Man 4.0 K/mm3 (1.8-7.7) 07/08/16 23:55 Band Neutrophils # 1.8 K/mm3 07/08/16 23:55 Lymphocytes # (Manual) 2.3 K/mm3 (1.2-5.4) 07/08/16 23:55 Abs React Lymphs (Man) 0.0 K/mm3 07/08/16 23:55 Monocytes # (Manual) 0.2 K/mm3 (0.0-0.8) 07/08/16 23:55 Eosinophils # (Manual) 0.0 K/mm3 (0.0-0.4) 07/08/16 23:55 Basophils # (Manual) 0.0 K/mm3 (0.0-0.1) 07/08/16 23:55 Metamyelocytes # 0.3 K/mm3 07/08/16 23:55 Myelocytes # 0.0 K/mm3 07/08/16 23:55 Promyelocytes # 0.0 K/mm3 07/08/16 23:55 Blast Cells # 0.0 K/mm3 07/08/16 23:55 WBC Morphology Not Reportable 07/08/16 23:55 Hypersegmented Neuts Not Reportable 07/08/16 23:55 Hyposegmented Neuts Not Reportable 07/08/16 23:55 Hypogranular Neuts Not Reportable 07/08/16 23:55 Smudge Cells Not Reportable 07/08/16 23:55 Toxic Granulation Not Reportable 07/08/16 23:55 Toxic Vacuolation Not Reportable 07/08/16 23:55 Dohle Bodies Not Reportable 07/08/16 23:55 Pelger-Huet Anomaly Not Reportable 07/08/16 23:55 Feli Rods Not Reportable 07/08/16 23:55 Platelet Estimate Consistent w auto 07/08/16 23:55 Clumped Platelets Not Reportable 07/08/16 23:55 Plt Clumps, EDTA Not Reportable 07/08/16 23:55 Large Platelets Few 07/08/16 23:55 Giant Platelets Not Reportable 07/08/16 23:55 Platelet Satelliting Not Reportable 07/08/16 23:55 Plt Morphology Comment Not Reportable 07/08/16 23:55 RBC Morphology Not Reportable 07/08/16 23:55 Dimorphic RBCs Not Reportable 07/08/16 23:55 Polychromasia Not Reportable 07/08/16 23:55 Hypochromasia 1+ 07/08/16 23:55 Poikilocytosis Not Reportable 07/08/16 23:55 Anisocytosis 1+ 07/08/16 23:55 Microcytosis Not Reportable 07/08/16 23:55 Macrocytosis Not Reportable 07/08/16 23:55 Spherocytes Not Reportable 07/08/16 23:55 Pappenheimer Bodies Not Reportable 07/08/16 23:55 Sickle Cells Not Reportable 07/08/16 23:55 Target Cells Not Reportable 07/08/16 23:55 Tear Drop Cells Not Reportable 07/08/16 23:55 Ovalocytes Not Reportable 07/08/16 23:55 Helmet Cells Not Reportable 07/08/16 23:55 [place] Bodies Not Reportable 07/08/16 23:55 [place] Rings Not Reportable 07/08/16 23:55 Dana Cells Not Reportable 07/08/16 23:55 Bite Cells Not Reportable 07/08/16 23:55 Crenated Cell Not Reportable 07/08/16 23:55 Elliptocytes Not Reportable 07/08/16 23:55 Acanthocytes (Spur) Not Reportable 07/08/16 23:55 Rouleaux Not Reportable 07/08/16 23:55 Hemoglobin C Crystals Not Reportable 07/08/16 23:55 Schistocytes Not Reportable 07/08/16 23:55 Malaria parasites Not Reportable 07/08/16 23:55 Manny Bodies Not Reportable 07/08/16 23:55 Hem Pathologist Commnt No 07/08/16 23:55 PT 14.3 Sec. (12.2-14.9) 07/08/16 23:55 INR 1.12 (0.87-1.13) 07/08/16 23:55 APTT 20.0 Sec. (24.2-36.6) L 07/08/16 23:55 Sodium 137 mmol/L (137-145) 07/08/16 23:55 Potassium 4.6 mmol/L (3.6-5.0) D 07/09/16 04:52 Chloride 101.0 mmol/L (98-107) 07/08/16 23:55 Carbon Dioxide 18 mmol/L (22-30) L 07/08/16 23:55 Anion Gap 24 mmol/L 07/08/16 23:55 BUN 30 mg/dL (7-17) H 07/08/16 23:55 Creatinine 1.0 mg/dL (0.7-1.2) 07/08/16 23:55 Estimated GFR > 60 ml/min 07/08/16 23:55 BUN/Creatinine Ratio 30.00 % 07/08/16 23:55 Glucose 241 mg/dL (65-100) H 07/08/16 23:55 POC Glucose 188 (70-105) H 07/09/16 12:18 Calcium 8.7 mg/dL (8.4-10.2) 07/08/16 23:55 Total Bilirubin 0.5 mg/dL (0.1-1.2) 07/08/16 23:55 AST 17 units/L (5-40) 07/08/16 23:55 ALT 12 units/L (7-56) 07/08/16 23:55 Alkaline Phosphatase 160 units/L (35-129) H 07/08/16 23:55 Total Creatine Kinase 93 units/L (30-135) 07/09/16 04:52 CK-MB (CK-2) < 1.0 ng/mL (0.0-4.0) 07/09/16 04:52 CK-MB (CK-2) Rel Index 1.0 (0-4) 07/09/16 04:52 Troponin T 0.011 ng/mL (0.00-0.029) 07/09/16 04:52 NT-Pro-B Natriuret Pep 3619 pg/mL (0-900) H 07/08/16 23:55 Total Protein 8.1 g/dL (6.3-8.2) 07/08/16 23:55 Albumin 1.8 g/dL (3.9-5) L 07/08/16 23:55 Albumin/Globulin Ratio 0.3 % 07/08/16 23:55 Lipase 15 units/L (13-60) 07/08/16 23:55
[2016-07-09 14:15] LABS: Creatine Kinase 101 units/L (30-135)
[2016-07-09 14:19] LABS: Creatine Kinase MB < 1.0 ng/mL (0.0-4.0)
[2016-07-09] MEDS ORDERED: NACL 0.9% 500 ML 500 ML IV ONE (14:37)
--- NOTE | 2016-07-09 15:03 | Consultation ---
History of Present Illness Consult date: 07/09/16 Consult reason: congestive heart failure History of present illness: This is a 61yr old woman whom is morbidly obese and bedridden was brought to the ED with complaints of abdominal pain and shortness of breath. Patient is poor historian. Patient unable to articulate prior cardiac history. She denies chest pain. An ECG shows a sinus rhythm with occasional sinus arrhythmia. A chest x-ray reports no acute process. Cardiac consultation requested for CHF. Medications and Allergies Allergies Allergy/AdvReac Type Severity Reaction Status Date / Time No Known Allergies Allergy Verified 01/11/16 00:24 Home Medications Medication Instructions Recorded Confirmed Last Taken Type AtorvaSTATin [Lipitor] 20 mg PO QDAY 01/11/16 07/09/16 07/08/16 History Citalopram [Celexa] 20 mg PO QDAY 01/11/16 07/09/16 07/08/16 History Folic Acid [Folvite] 1 mg PO QDAY 01/11/16 07/09/16 07/08/16 History Tizanidine HCl [tiZANidine] 2 mg PO Q8H 01/11/16 07/09/16 07/08/16 History amLODIPine [Norvasc] 10 mg PO DAILY 01/11/16 07/09/16 07/08/16 History Furosemide [Lasix TAB] 40 mg PO DAILY #30 01/20/16 07/09/16 07/08/16 Rx Gabapentin [Gralise] 300 mg PO BID #30 01/20/16 07/09/16 07/08/16 Rx Insulin Glargine [Lantus VIAL] 20 units SUB-Q QAMDIAB 30 Days 01/20/16 07/09/16 07/08/16 Rx Insulin Glulisine [Apidra] 6 units SUB-Q AC 30 Days 01/20/16 07/09/16 07/08/16 Rx Bumetanide [Bumex] 1 mg PO QDAY #30 tablet 01/21/16 07/09/16 07/08/16 Rx Pantoprazole [Protonix TAB] 40 mg PO BID #60 tablet 01/21/16 07/09/16 07/08/16 Rx Warfarin [Coumadin] 5 mg PO QDAY #30 tablet 01/21/16 07/09/16 07/08/16 Rx HYDROcodone/APAP 5-325 [[place] 1 each PO Q6HR PRN #10 tablet 02/26/16 07/09/16 Rx 5-325 mg TAB] Acetaminophen [Acetaminophen TAB] 500 mg PO Q6HR #16 tablet 05/01/16 07/09/16 Rx Blood Sugar Diagnostic [Blood 1 each TIDAC #100 strip 05/01/16 07/09/1607/08 Rx Glucose Test Strip] Active Meds: Active Medications Acetaminophen (Tylenol) 650 mg PO Q4H PRN PRN Reason: Pain MILD(1-3)/Fever >100.5/DUBOSE Acetaminophen/Hydrocodone Bitart ([place] 10/325) 1 each PO Q4H PRN PRN Reason: Pain , Severe (7-10) Aspirin (Aspirin) 325 mg PO QDAY KATHY Bisacodyl (Dulcolax) 10 mg VA QDAY PRN PRN Reason: Constipation unrelieved by MOM Dextrose (D50w (25gm)) 50 ml IV PRN PRN PRN Reason: Hypoglycemia Enoxaparin Sodium (Lovenox) 40 mg SUB-Q QDAY KATHY Furosemide (Lasix) 20 mg IV BID@0600,1800 KATHY Sodium Chloride (Nacl 0.9% 500 Ml) 500 mls @ 999 mls/hr IV ONCE ONE Stop: 07/09/16 15:07 Magnesium Hydroxide (Milk Of Magnesia) 30 ml PO Q4H PRN PRN Reason: Constipation Ondansetron HCl (Zofran) 4 mg IV Q8H PRN PRN Reason: N/V unrelieved by Reglan Physical Examination Vital Signs Temp Pulse Resp BP Pulse Ox 98.6 F 85 20 130/58 100 07/08/16 22:45 07/08/16 22:45 07/08/16 22:45 07/08/16 22:45 07/08/16 22:45 General appearance: obese Cardiac: Positive: Reg Rate and Rhythm Results 07/08/16 23:55 07/09/16 04:52 Cardiac Enzymes 07/09/16 Range/Units 13:53 CK-MB (CK-2) < 1.0 (0.0-4.0) ng/mL Assessment and Plan Abdominal pain Decubitus ulcers Morbidly obese Hypertension Diabetes mellitus EF 50-55% on echocardiogram.
[2016-07-09] MEDS: NOVOLOG SUB-Q SCH ×2 (17:00→23:04)
[2016-07-09] MEDS: LASIX IV SCH (17:38)
[2016-07-09] MEDS ORDERED: LASIX IV SCH (18:00)
[2016-07-09] MEDS: NORCO 10/325 PO PRN (20:17)
[2016-07-10] MEDS: NORCO 10/325 PO PRN ×2 (04:11→11:38)
[2016-07-10] MEDS: LASIX IV SCH (05:48)
[2016-07-10 06:49] LABS: Anion Gap 18 mmol/L; BUN/Creatinine Ratio 28.18; Blood Urea Nitrogen 31 mg/dL (7-17); Calcium 8.1 mg/dL (8.4-10.2); Carbon Dioxide 21 mmol/L (22-30); Chloride 103.4 mmol/L (98-107); Glucose 153 mg/dL (65-100); Potassium 5.6 mmol/L (3.6-5.0); Sodium 137 mmol/L (137-145)
[2016-07-10 07:30] LABS: Basophils % (Auto) 0.5 % (0.0-1.8); Eosinophils % (Auto) 1.5 % (0.0-4.3); Mean Corpuscular HGB Conc 32 % (30-34); Mean Corpuscular Volume 79 fl (79-97); Red Blood Count 3.56 M/mm3 (3.65-5.03); Red Cell Distribution Width 19.3 % (13.2-15.2); White Blood Count 15.2 K/mm3 (4.5-11.0)
[2016-07-10 07:43] LABS: Hemoglobin 9.9 gm/dl (10.1-14.3); Mean Corpuscular Hemoglobin 25 pg (28-32); Platelet Count 424 K/mm3 (140-440)
[2016-07-10] MEDS: NOVOLOG SUB-Q SCH ×2 (08:00→12:34)
[2016-07-10] MEDS ORDERED: KIONEX PO ONE (10:00)
--- NOTE | 2016-07-10 10:27 | Progress Note ---
Assessment and Plan Chronic lymphedema Morbid obesity Chronically bedridden Cardiomegaly, preserved LVEF Anemia Leukocytosis Hyperkalemia Recommendations: No cardiac recommendations for chronic lymphedema resulting from morbid obesity and a bedridden status Continue diuresis and afterload reduction Subjective Date of service: 07/10/16 Principal diagnosis: Lymphedema Interval history: Patient denies chest pain or shortness of breath Objective Vital Signs Temp Pulse Resp Resp Resp BP Pulse Ox 07/10/16 08:00 97.5 F L 07/10/16 07:00 74 21 113/48 95 07/10/16 06:00 69 19 121/54 91 07/10/16 05:22 70 99 07/10/16 05:11 12 07/10/16 04:24 97.4 F L 07/10/16 04:11 14 07/10/16 04:00 68 22 105/39 99 07/10/16 03:00 69 23 112/53 96 07/10/16 02:00 70 23 97/40 98 07/10/16 01:00 70 24 99/38 96 07/10/16 00:42 97.9 F 07/10/16 00:00 71 23 99/43 96 07/09/16 23:26 71 07/09/16 23:00 71 24 97/40 95 07/09/16 22:00 72 22 101/36 92 07/09/16 21:59 100 07/09/16 21:17 25 H 07/09/16 21:00 71 25 H 115/39 100 07/09/16 20:17 24 07/09/16 20:15 20 20 20 100 07/09/16 20:07 98.1 F 07/09/16 20:00 74 20 116/51 100 07/09/16 19:32 76 27 H 91/34 07/09/16 19:20 78 28 H 91/34 07/09/16 19:10 75 29 H 91/34 97 07/09/16 19:00 71 29 H 91/34 95 07/09/16 18:50 73 29 H 97/38 96 07/09/16 18:40 74 25 H 97/38 98 07/09/16 18:30 66 27 H 97/38 96 07/09/16 18:20 71 24 97/38 98 07/09/16 18:10 71 28 H 97/38 99 07/09/16 18:00 72 19 97/38 82 L 07/09/16 17:50 74 18 114/42 96 07/09/16 17:40 75 16 114/42 99 07/09/16 17:30 76 27 H 92/35 99 07/09/16 17:28 98 07/09/16 17:20 77 29 H 92/35 97 07/09/16 17:10 74 26 H 92/35 96 07/09/16 17:00 74 27 H 92/35 96 07/09/16 16:50 76 28 H 92/35 97 07/09/16 16:40 75 27 H 92/35 99 07/09/16 16:30 71 28 H 92/35 100 07/09/16 16:20 76 23 92/35 93 07/09/16 16:10 77 25 H 92/35 100 07/09/16 16:00 98.0 F 74 24 92/35 99 07/09/16 15:50 79 21 92/35 100 07/09/16 15:40 73 24 92/35 96 07/09/16 15:30 74 26 H 92/35 94 07/09/16 15:20 76 24 92/35 97 07/09/16 15:10 76 25 H 92/35 97 07/09/16 15:00 77 26 H 92/35 95 07/09/16 14:50 75 23 77/41 96 07/09/16 14:40 77 26 H 77/41 96 07/09/16 14:30 76 27 H 83/44 95 07/09/16 14:20 77 25 H 83/44 98 07/09/16 14:10 74 26 H 83/44 97 07/09/16 14:00 74 26 H 83/44 93 07/09/16 13:50 76 25 H 83/44 99 07/09/16 13:40 79 20 83/44 100 07/09/16 13:30 76 21 101/33 96 07/09/16 13:20 78 22 101/33 99 07/09/16 13:10 77 25 H 101/33 98 07/09/16 13:00 81 24 101/33 97 07/09/16 12:50 86 19 101/33 100 07/09/16 12:40 81 23 101/33 100 07/09/16 12:30 77 26 H 101/33 100 07/09/16 12:20 77 22 101/33 100 07/09/16 12:10 75 24 101/33 100 07/09/16 12:00 97.4 F L 77 25 H 97/43 07/09/16 11:50 76 20 97/43 100 07/09/16 11:40 73 19 97/43 96 07/09/16 11:30 75 19 97/43 99 07/09/16 11:20 76 17 97/43 48 L 07/09/16 11:10 75 25 H 97/43 99 07/09/16 11:00 70 25 H 07/09/16 10:50 76 21 100 07/09/16 10:40 79 26 H 91 07/09/16 10:32 75 24 - Physical Examination General: Appears Well Neck: Positive: neck supple Cardiac: Positive: Reg Rate and Rhythm Lungs: Positive: Decreased Breath Sounds Extremities: Present: edema - Labs and Meds Cardiac Enzymes 07/09/16 Range/Units 13:53 CK-MB (CK-2) < 1.0 (0.0-4.0) ng/mL CBC 07/10/16 Range/Units 06:29 WBC 15.2 H (4.5-11.0) K/mm3 RBC 3.56 L (3.65-5.03) M/mm3 Hgb 9.9 L (10.1-14.3) gm/dl Hct 30.0 L D (30.3-42.9) % Plt Count 424 (140-440) K/mm3 Lymph # 4.0 (1.2-5.4) K/mm3 [place] # 2.0 H (0.0-0.8) K/mm3 Eos # 0.2 (0.0-0.4) K/mm3 Baso # 0.1 (0.0-0.1) K/mm3 Comprehensive Metabolic Panel 07/10/16 Range/Units 06:29 Sodium 137 (137-145) mmol/L Potassium 5.6 H D (3.6-5.0) mmol/L Chloride 103.4 (98-107) mmol/L Carbon Dioxide 21 L (22-30) mmol/L BUN 31 H (7-17) mg/dL Creatinine 1.1 (0.7-1.2) mg/dL Glucose 153 H (65-100) mg/dL Calcium 8.1 L (8.4-10.2) mg/dL - Imaging and Cardiology EKG: image reviewed
[2016-07-10] MEDS: LOVENOX SUB-Q SCH (10:42)
[2016-07-10] MEDS: ASPIRIN PO SCH (10:43)
[2016-07-10 11:48] VITALS: BP 122/51
--- NOTE | 2016-07-10 15:11 | Progress Note ---
Assessment and Plan Assessment and plan: Patient is a 61-year-old woman with a plethora comorbidities including extreme obesity BMI 73.2, type 2 diabetes mellitus, hypertension and diastolic heart failure who presents with abdominal pain shortness breath and inner thighs skin breakdown. Abdominal x-ray unremarkable as well as chest x-ray although the proBNP is 3619. Patient had just moved into her apartment with her after being at [facility] for quite some time. She refused placement, even though, She was found covered in feces with worsening skin breakdown in between her legs and inner thighs. Chronic HFrEF, stable Extreme obesity, bmi 80 causing most of these co-morbities, consider gastric bypass Severe protein malnurition, poa, bmi 1.8, discuss gastric bypass Severe pressure ulcers due to functional quadriplegia, poa most likely due to extreme obesity Hyperkalemia, gave kayexalate, repeat levels in am d.c home once cleared by DFAC and potassium level stable. History Interval history: Patient seen and examined. Follow up on abdominal pain which is slightly better. Overnight uneventful. No cp, sob, n/v or severe headaches. Imaging, old records, testing, labs, nursing notes reviewed. Plan discussed with patient. Hospitalist Physical - Physical exam Narrative exam: GEN: Morbid obesity BMI 80 NAD, AWAKE, ALERT, ORIENTATED 3 HEENT: NCAT, PERRL, EOMI, OP CLEAR NECK: SUPPLE, NO THYROMEGALY, NO JVD, NO LAD CVS: RRR, NORMAL S1S2 LUNGS/CHEST: CTA B, NORMAL CHEST EXPANSION B, GOOD AIR ENTRY B ABD: SOFT NTND, GBS, NO REBOUND OR GUARDING MSK: FROM X 4 EXTREMITIES NEURO: CN 2-12 GROSSLY INTACT, NO new FOCAL DEFICITS PSY: CALM - Constitutional Vitals: Temp Pulse Resp BP Pulse Ox 97.3 F L 78 13 122/51 100 07/10/16 12:00 07/10/16 11:00 07/10/16 11:00 07/10/16 11:00 07/10/16 11:00 General appearance: Present: obese Results - Labs CBC & Chem 7: 07/10/16 06:29 07/10/16 06:29 Labs: Laboratory Last Values WBC 15.2 K/mm3 (4.5-11.0) H 07/10/16 06:29 RBC 3.56 M/mm3 (3.65-5.03) L 07/10/16 06:29 Hgb 9.9 gm/dl (10.1-14.3) L 07/10/16 06:29 Hct 30.0 % (30.3-42.9) L D 07/10/16 06:29 MCV 79 fl (79-97) 07/10/16 06:29 MCH 25 pg (28-32) L 07/10/16 06: MCHC 32 % (30-34) 07/10/16 06:29 RDW 19.3 % (13.2-15.2) H 07/10/16 06:29 Plt Count 424 K/mm3 (140-440) 07/10/16 06:29 Lymph % (Auto) 26.0 % (13.4-35.0) 07/10/16 06:29 [place] % (Auto) 13.1 % (0.0-7.3) H 07/10/16 06:29 Eos % (Auto) 1.5 % (0.0-4.3) 07/10/16 06:29 Baso % (Auto) 0.5 % (0.0-1.8) 07/10/16 06:29 Lymph # 4.0 K/mm3 (1.2-5.4) 07/10/16 06:29 [place] # 2.0 K/mm3 (0.0-0.8) H 07/10/16 06:29 Eos # 0.2 K/mm3 (0.0-0.4) 07/10/16 06:29 Baso # 0.1 K/mm3 (0.0-0.1) 07/10/16 06:29 Add Manual Diff Complete 07/08/16 23:55 Total Counted 100 07/08/16 23:55 Seg Neutrophils % 58.9 % (40.0-70.0) 07/10/16 06:29 Seg Neuts % (Manual) 47.0 % (40.0-70.0) 07/08/16 23:55 Band Neutrophils % 21.0 % 07/08/16 23:55 Lymphocytes % (Manual) 27.0 % (13.4-35.0) 07/08/16 23:55 Reactive Lymphs % (Man) 0 % 07/08/16 23:55 Monocytes % (Manual) 2.0 % (0.0-7.3) 07/08/16 23:55 Eosinophils % (Manual) 0 % (0.0-4.3) 07/08/16 23:55 Basophils % (Manual) 0 % (0.0-1.8) 07/08/16 23:55 Metamyelocytes % 3.0 % 07/08/16 23:55 Myelocytes % 0 % 07/08/16 23:55 Promyelocytes % 0 % 07/08/16 23:55 Blast Cells % 0 % 07/08/16 23:55 Nucleated RBC % 4.0 % (0.0-0.9) H 07/08/16 23:55 Seg Neutrophils # 9.0 K/mm3 (1.8-7.7) H 07/10/16 06:29 Seg Neutrophils # Man 4.0 K/mm3 (1.8-7.7) 07/08/16 23:55 Band Neutrophils # 1.8 K/mm3 07/08/16 23:55 Lymphocytes # (Manual) 2.3 K/mm3 (1.2-5.4) 07/08/16 23:55 Abs React Lymphs (Man) 0.0 K/mm3 07/08/16 23:55 Monocytes # (Manual) 0.2 K/mm3 (0.0-0.8) 07/08/16 23:55 Eosinophils # (Manual) 0.0 K/mm3 (0.0-0.4) 07/08/16 23:55 Basophils # (Manual) 0.0 K/mm3 (0.0-0.1) 07/08/16 23:55 Metamyelocytes # 0.3 K/mm3 07/08/16 23:55 Myelocytes # 0.0 K/mm3 07/08/16 23:55 Promyelocytes # 0.0 K/mm3 07/08/16 23:55 Blast Cells # 0.0 K/mm3 07/08/16 23:55 WBC Morphology Not Reportable 07/08/16 23:55 Hypersegmented Neuts Not Reportable 07/08/16 23:55 Hyposegmented Neuts Not Reportable 07/08/16 23:55 Hypogranular Neuts Not Reportable 07/08/16 23:55 Smudge Cells Not Reportable 07/08/16 23:55 Toxic Granulation Not Reportable 07/08/16 23:55 Toxic Vacuolation Not Reportable 07/08/16 23:55 Dohle Bodies Not Reportable 07/08/16 23:55 Pelger-Huet Anomaly Not Reportable 07/08/16 23:55 Feli Rods Not Reportable 07/08/16 23:55 Platelet Estimate Consistent w auto 07/08/16 23:55 Clumped Platelets Not Reportable 07/08/16 23:55 Plt Clumps, EDTA Not Reportable 07/08/16 23:55 Large Platelets Few 07/08/16 23:55 Giant Platelets Not Reportable 07/08/16 23:55 Platelet Satelliting Not Reportable 07/08/16 23:55 Plt Morphology Comment Not Reportable 07/08/16 23:55 RBC Morphology Not Reportable 07/08/16 23:55 Dimorphic RBCs Not Reportable 07/08/16 23:55 Polychromasia Not Reportable 07/08/16 23:55 Hypochromasia 1+ 07/08/16 23:55 Poikilocytosis Not Reportable 07/08/16 23:55 Anisocytosis 1+ 07/08/16 23:55 Microcytosis Not Reportable 07/08/16 23:55 Macrocytosis Not Reportable 07/08/16 23:55 Spherocytes Not Reportable 07/08/16 23:55 Pappenheimer Bodies Not Reportable 07/08/16 23:55 Sickle Cells Not Reportable 07/08/16 23:55 Target Cells Not Reportable 07/08/16 23:55 Tear Drop Cells Not Reportable 07/08/16 23:55 Ovalocytes Not Reportable 07/08/16 23:55 Helmet Cells Not Reportable 07/08/16 23:55 [place] Bodies Not Reportable 07/08/16 23:55 [place] Rings Not Reportable 07/08/16 23:55 [place] Cells Not Reportable 07/08/16 23:55 Bite Cells Not Reportable 07/08/16 23:55 Crenated Cell Not Reportable 07/08/16 23:55 Elliptocytes Not Reportable 07/08/16 23:55 Acanthocytes (Spur) Not Reportable 07/08/16 23:55 Rouleaux Not Reportable 07/08/16 23:55 Hemoglobin C Crystals Not Reportable 07/08/16 23:55 Schistocytes Not Reportable 07/08/16 23:55 Malaria parasites Not Reportable 07/08/16 23:55 Manny Bodies Not Reportable 07/08/16 23:55 Hem Pathologist Commnt No 07/08/16 23:55 PT 14.3 Sec. (12.2-14.9) 07/08/16 23:55 INR 1.12 (0.87-1.13) 07/08/16 23:55 APTT 20.0 Sec. (24.2-36.6) L 07/08/16 23:55 Sodium 137 mmol/L (137-145) 07/10/16 06:29 Potassium 5.6 mmol/L (3.6-5.0) H D 07/10/16 06:29 Chloride 103.4 mmol/L (98-107) 07/10/16 06:29 Carbon Dioxide 21 mmol/L (22-30) L 07/10/16 06:29 Anion Gap 18 mmol/L 07/10/16 06:29 BUN 31 mg/dL (7-17) H 07/10/16 06:29 Creatinine 1.1 mg/dL (0.7-1.2) 07/10/16 06:29 Estimated GFR > 60 ml/min 07/10/16 06:29 BUN/Creatinine Ratio 28.18 % 07/10/16 06:29 Glucose 153 mg/dL (65-100) H 07/10/16 06:29 POC Glucose 206 (70-105) H 07/10/16 12:10 Calcium 8.1 mg/dL (8.4-10.2) L 07/10/16 06:29 Total Bilirubin 0.5 mg/dL (0.1-1.2) 07/08/16 23:55 AST 17 units/L (5-40) 07/08/16 23:55 ALT 12 units/L (7-56) 07/08/16 23:55 Alkaline Phosphatase 160 units/L (35-129) H 07/08/16 23:55 Total Creatine Kinase 101 units/L (30-135) 07/09/16 13:53 CK-MB (CK-2) < 1.0 ng/mL (0.0-4.0) 07/09/16 13:53 CK-MB (CK-2) Rel Index 0.9 (0-4) 07/09/16 13:53 Troponin T < 0.010 ng/mL (0.00-0.029) 07/09/16 13:53 NT-Pro-B Natriuret Pep 3619 pg/mL (0-900) H 07/08/16 23:55 Total Protein 8.1 g/dL (6.3-8.2) 07/08/16 23:55 Albumin 1.8 g/dL (3.9-5) L 07/08/16 23:55 Albumin/Globulin Ratio 0.3 % 07/08/16 23:55 Lipase 15 units/L (13-60) 07/08/16 23:55
--- NOTE | 2016-07-10 15:58 | Discharge Summary ---
Providers - Providers Date of Admission: 07/09/16 06:04 Date of discharge: 07/10/16 Attending physician: JENNIFER GOLDSTEIN 07/09/16 06:08 Consult to Physician [CONS] Routine Consulting Provider: GA PEREZ Reason For Exam: chf Place consult to:: cardiology Notified:: y If yes, spoke with:: miladis 07/09/16 06:28 Consult to Wound/ET Nurse [CONS] Routine Reason For Exam: wound eval 07/10/16 08:57 Consult to Case Management [CONS] Routine Services Needed at Discharge: Other Notified:: immigration case worker Phone number called:: [phone] Was contact made?: Yes Time called:: 09:11 Comment:: placement Primary care physician: LOG CHAIN WORKER Hospitalization Condition: Stable Hospital course: Patient is a 61-year-old woman with a plethora comorbidities including extreme obesity BMI 73.2, type 2 diabetes mellitus, hypertension and diastolic heart failure who presents with abdominal pain shortness breath and inner thighs skin breakdown. Abdominal x-ray unremarkable as well as chest x-ray although the proBNP is 3619. Patient had just moved into her apartment with her after being at [facility] for quite some time. She refused placement, even though, She was found covered in feces with worsening skin breakdown in between her legs and inner thighs. Chronic HFrEF, stable Extreme obesity, bmi 80 causing most of these co-morbities, consider gastric bypass Severe protein malnurition, poa, bmi 1.8, discuss gastric bypass Severe pressure ulcers due to functional quadriplegia, poa most likely due to extreme obesity Hyperkalemia, gave kayexalate, mild d.c home once cleared by DFAC Disposition: DISCHARGED TO HOME OR SELFCARE Core Measure Documentation - Palliative Care Palliative Care/ Comfort Measures: Not Applicable - Core Measures Any of the following diagnoses?: none - VTE Discharge Requirements Deep Vein Thrombosis/Pulmonary Embolism Present on Admission: No Has pt received <5 days of overlap therapy or INR<2.0: No Anticoagulant overlap therapy prescribed at discharge: No Contraindication No Overlap Therapy order at DC: Not Indicated Exam - Physical Exam Narrative exam: GEN: Morbid obesity BMI 80 NAD, AWAKE, ALERT, ORIENTATED 3 HEENT: NCAT, PERRL, EOMI, OP CLEAR NECK: SUPPLE, NO THYROMEGALY, NO JVD, NO LAD CVS: RRR, NORMAL S1S2 LUNGS/CHEST: CTA B, NORMAL CHEST EXPANSION B, GOOD AIR ENTRY B ABD: SOFT NTND, GBS, NO REBOUND OR GUARDING MSK: FROM X 4 EXTREMITIES NEURO: CN 2-12 GROSSLY INTACT, NO new FOCAL DEFICITS PSY: CALM - Constitutional Vitals: Temp Pulse Resp BP Pulse Ox 97.3 F L 78 13 122/51 100 07/10/16 12:00 07/10/16 11:00 07/10/16 11:00 07/10/16 11:00 07/10/16 11:00 Plan Follow up with: PRIMARY CARE, [Primary Care Provider] - 7 Days
== END 2016-07-10 15:45 | disposition home health service (06) | DRG 291 ==
LOC: ED 22:24 → 4A 07-09 06:04 → CC1 07-09 08:42
PROVIDERS: ADMIT Internal Medicine; ATTEND Internal Medicine
DX: I11.0 Hypertensive heart disease with heart failure (principal); E43 Unspecified severe protein-calorie malnutrition; R53.2 Functional quadriplegia; I50.33 Acute on chronic diastolic (congestive) heart failure; K59.00 Constipation, unspecified; R10.9 Unspecified abdominal pain; E78.5 Hyperlipidemia, unspecified; I89.0 Lymphedema, not elsewhere classified; L89.159 Pressure ulcer of sacral region, unspecified stage; I48.91 Unspecified atrial fibrillation; E87.5 Hyperkalemia; E66.01 Morbid (severe) obesity due to excess calories; E11.9 Type 2 diabetes mellitus without complications; Z74.01 Bed confinement status; Z68.45 Body mass index [BMI] 70 or greater, adult; Z79.4 Long term (current) use of insulin; Z82.49 Family history of ischemic heart disease and other diseases of the circulatory system
CPT/HCPCS: 36415; 71010; 74020; 80048; 80053; 82550; 82553; 82962; 83690; 83880; 84132; 84484; 85007; 85025; 85610; 85730; 93005; 93010; 93306; 94644; 94760; 96374; 96375; J1170; J1650; J1815; J1940; J2405; J7040

== ENCOUNTER 2016-08-29 15:47 | Inpatient (IN) | payer MEDICAID ==
[2016-08-29] MEDS ORDERED: ATIVAN ONE (16:59)
[2016-08-29] MEDS ORDERED: NACL 0.9% 1000 ML 1,000 ML ONE (17:02)
[2016-08-29] MEDS ORDERED: KETALAR ONE (17:11)
[2016-08-29] MEDS ORDERED: NACL 0.9% 500 ML 500 ML IV ONE ×2 (17:22→18:18)
[2016-08-29] MEDS ORDERED: KETALAR IV ONE ×8 (17:30→19:00)
[2016-08-29] MEDS ORDERED: ATIVAN IV ONE (17:31)
[2016-08-29] MEDS ORDERED: NACL 0.9% 1000 ML 1,000 ML IV ONE ×2 (17:39→19:13)
[2016-08-29 17:57] LABS: Hematocrit 25.4 % (30.3-42.9); Hemoglobin 7.7 gm/dl (10.1-14.3); Mean Corpuscular HGB Conc 30 % (30-34); Mean Corpuscular Hemoglobin 30 pg (28-32); Mean Corpuscular Volume 98 fl (79-97); Platelet Count 330 K/mm3 (140-440); Red Blood Count 2.58 M/mm3 (3.65-5.03); White Blood Count 10.2 K/mm3 (4.5-11.0)
[2016-08-29] MEDS ORDERED: QUELICIN IV ONE (17:59)
[2016-08-29] MEDS ORDERED: ARTIFICIAL TEARS OPHTH OINT OU PRN (18:03)
[2016-08-29] MEDS ORDERED: VASELINE LIP THERAPY TP PRN (18:03)
[2016-08-29 18:07] LABS: INR 1.34 (0.87-1.13)
[2016-08-29 18:19] LABS: Alanine Aminotransferase 47 units/L (7-56); Albumin 1.2 g/dL (3.9-5); Albumin/Globulin Ratio 0.2 %; Alkaline Phosphatase 384 units/L (35-129); Anion Gap 18 mmol/L; Blood Urea Nitrogen 9 mg/dL (7-17); Calcium 7.3 mg/dL (8.4-10.2); Carbon Dioxide 20 mmol/L (22-30); Chloride 99.2 mmol/L (98-107); Creatine Kinase 28 units/L (30-135); Glucose 104 mg/dL (65-100); Potassium 4.4 mmol/L (3.6-5.0); Sodium 133 mmol/L (137-145); Total Protein 6.2 g/dL (6.3-8.2)
[2016-08-29 18:21] LABS: Creatine Kinase MB < 1.0 ng/mL (0.0-4.0)
[2016-08-29 18:34] LABS: Blastocytes % (Manual) 0 %
[2016-08-29 18:35] LABS: Basophils % (Manual) 0 % (0.0-1.8); Eosinophils % (Manual) 0 % (0.0-4.3)
[2016-08-29 18:36] LABS: Anisocytosis 1+; Diff Status Complete; Platelet Estimate Consistent w Auto; Polychromasia 1+
--- NOTE | 2016-08-29 18:37 | Emergency Department Report ---
ED General Adult HPI - General Chief complaint: Altered Mental Status Stated complaint: AMS Time Seen by Provider: 08/29/16 18:12 Source: patient Mode of arrival: Stretcher Limitations: Physical Limitation - History of Present Illness Initial comments: Patient is transported via EMS and her provides limited historical information. He states he called the ambulance because she hasn't been " talking for 2 days". Patient has been aware and tracking was largely not responding to verbal stimuli. She has kept her eyes open but is otherwise non- verbal. states that she has previously been here and required intubation. I discussed her current intubation and resuscitation status and the had an extremely limited understanding of end-of-life issues. I was unable to make any headway in determining if he has ever considered this in a meaningful way. In any case, the did want all medical interventions. The patient presented with a blood pressure which was low or unobtainable. She did not have a fever. She is extremely morbidly obese, nonverbal and is not providing any history. Asked The states that the patient has been admitted here before for abdominal pain. Apparently she was admitted in June and . She also has a complaint of abdominal pain in April and in June. Diagnostic study must admit extremely limited secondary to her extreme obesity. The only diagnostic test I see is a plain x-ray of the abdomen. Echocardiogram at that time showed an ejection fraction of 50-55%. -: unknown Severity scale (0 -10): 4 - Related Data Home Medications Medication Instructions Recorded Confirmed Last Taken AtorvaSTATin [Lipitor] 20 mg PO QDAY 01/11/16 07/09/16 07/08/16 Citalopram [Celexa] 20 mg PO QDAY 01/11/16 07/09/16 07/08/16 Folic Acid [Folvite] 1 mg PO QDAY 01/11/16 07/09/16 07/08/16 Tizanidine HCl [tiZANidine] 2 mg PO Q8H 01/11/16 07/09/16 07/08/16 amLODIPine [Norvasc] 10 mg PO DAILY 01/11/16 07/09/16 07/08/16 Previous Rx's Medication Instructions Recorded Last Taken Type Furosemide [Lasix TAB] 40 mg PO DAILY #30 01/20/16 07/08/16 Rx Gabapentin [Gralise] 300 mg PO BID #30 01/20/16 07/08/16 Rx Insulin Glargine [Lantus VIAL] 20 units SUB-Q QAMDIAB 30 Days 01/20/16 07/08/16 Rx Insulin Glulisine [Apidra] 6 units SUB-Q AC 30 Days 01/20/16 07/08/16 Rx Bumetanide [Bumex 1 mg tab] 1 mg PO QDAY #30 tablet 01/21/16 07/08/16 Rx Pantoprazole [Protonix TAB] 40 mg PO BID #60 tablet 01/21/16 07/08/16 Rx Warfarin [Coumadin] 5 mg PO QDAY #30 tablet 01/21/16 07/08/16 Rx HYDROcodone/APAP 5-325 [[place] 1 each PO Q6HR PRN #10 tablet 02/26/16 07/08/16 Rx 5-325 mg TAB] Acetaminophen [Acetaminophen TAB] 500 mg PO Q6HR #16 tablet 05/01/16 07/08/16 Rx Blood Sugar Diagnostic [Blood 1 each MC TIDAC #100 strip 05/01/16 07/08/16 Rx Glucose Test Strip] Allergies Allergy/AdvReac Type Severity Reaction Status Date / Time No Known Allergies Allergy Verified 01/11/16 00:24 ED Review of Systems ROS: Stated complaint: AMS Other details as noted in HPI Comment: Unobtainable due to pts medical conditions ED Past Medical Hx - Past Medical History Previous Medical History?: Yes Hx Hypertension: Yes Hx Congestive Heart Failure: Yes Hx Diabetes: Yes Hx Asthma: No Hx COPD: No Hx HIV: No Additional medical history: High Cholesterol. morbid obesity - Surgical History Past Surgical History?: Yes Additional Surgical History: L ankle, lumpectomy - Social History Smoking Status: Never Smoker Substance Use Type: None - Medications Home Medications: Home Medications Medication Instructions Recorded Confirmed Last Taken Type AtorvaSTATin [Lipitor] 20 mg PO QDAY 01/11/16 07/09/16 07/08/16 History Citalopram [Celexa] 20 mg PO QDAY 01/11/16 07/09/16 07/08/16 History Folic Acid [Folvite] 1 mg PO QDAY 01/11/16 07/09/16 07/08/16 History Tizanidine HCl [tiZANidine] 2 mg PO Q8H 01/11/16 07/09/16 07/08/16 History amLODIPine [Norvasc] 10 mg PO DAILY 01/11/16 07/09/16 07/08/16 History Furosemide [Lasix TAB] 40 mg PO DAILY #30 01/20/16 07/09/16 07/08/16 Rx Gabapentin [Gralise] 300 mg PO BID #30 01/20/16 07/09/16 07/08/16 Rx Insulin Glargine [Lantus VIAL] 20 units SUB-Q QAMDIAB 30 Days 01/20/16 07/09/16 07/08/16 Rx Insulin Glulisine [Apidra] 6 units SUB-Q AC 30 Days 01/20/16 07/09/16 07/08/16 Rx Bumetanide [Bumex 1 mg tab] 1 mg PO QDAY #30 tablet 01/21/16 07/09/16 07/08/16 Rx Pantoprazole [Protonix TAB] 40 mg PO BID #60 tablet 01/21/16 07/09/16 07/08/16 Rx Warfarin [Coumadin] 5 mg PO QDAY #30 tablet 01/21/16 07/09/16 07/08/16 Rx HYDROcodone/APAP 5-325 [[place] 1 each PO Q6HR PRN #10 tablet 02/26/16 07/09/16 Rx 5-325 mg TAB] Acetaminophen [Acetaminophen TAB] 500 mg PO Q6HR #16 tablet 05/01/16 07/09/16 Rx Blood Sugar Diagnostic [Blood 1 each TIDAC #100 strip 05/01/16 07/09/1607/08 Rx Glucose Test Strip] ED Physical Exam - General Limitations: Physical Limitation General appearance: lethargic - Head Head exam: Present: atraumatic - Eye Eye exam: Absent: scleral icterus - ENT ENT exam: Present: mucous membranes dry - Neck Neck exam: Present: normal inspection. Absent: tenderness, meningismus - Respiratory Respiratory exam: Present: decreased breath sounds - Cardiovascular Cardiovascular Exam: Present: regular rate, normal rhythm. Absent: systolic murmur, diastolic murmur, rubs, gallop - GI/Abdominal GI/Abdominal exam: Present: soft, other (exam limited secondary to habitus). Absent: distended, tenderness - Extremities Exam Extremities exam: Present: other (there is extreme lymphedema of both legs all the way to the abdomen and beyond into the abdominal wall) - Back Exam Back exam: Present: other (unable to visualize) - Neurological Exam Neurological exam: Present: other (patient appears to be functionally paraplegic. In addition she does appear to be moving her arms with guarding and voluntary movement. She is however lethargic/stuporous. She doesn't respond to a sternal rub specifically.) - Psychiatric Psychiatric exam: Present: flat affect - Skin Skin exam: Present: other (lymph edema noted) ED Course Vital Signs 08/29/16 08/29/16 16:30 16:45 Temperature 97.2 F L Pulse Rate 80 90 Respiratory 16 Rate Blood Pressure 87/36 O2 Sat by Pulse 100 Oximetry - Reevaluation(s) Reevaluation #1: Nurse was able to get a 24-gauge line in the patient's right shoulder. This enabled sedation for central line placement the patient was given boluses of ketamine 50 mg. This was effective in enabling me to place a central line. A central line was placed in the left subclavian vein actually without much difficulty. I did attempt IJ unsuccessfully under ultrasound. There appears to be no readily accessible vessel there. Patient continued to be essentially altered/lethargic and obtunded. It did not seem likely that she could successfully protect her airway. Therefore she was electively intubated using an 8 Arabic endotracheal tube under direct laryngoscopy without difficulty. Patient did respond to a first liter of IV fluid healing a blood pressure over 100 systolic. She was found to be in lactic acidosis. Empiric antibiotics are ordered. The patient is admitted to the hospitalist service for further care and management. 08/29/16 18:46 - Central Line Placement Left IJ Consent Obtained: emergent situation Time Out Performed: No Patient Placed on Monitor/Pulse Ox: Yes MD Prep: mask, gown, gloves, other Central Line Prep: Povidone-Iodine 1% Ultrasound Used for Placement: Yes Central Line Lumen Inserted: triple Bloods Obtained for Lab: Yes Central Line Position: good blood return, all ports aspirated, flus, sutured in place with 3-0 Dressing Applied: Tegaderm Post Procedure X-Ray: tip of catheter in good p Patient Tolerated Procedure: well Complications: none - Intubation Sedative: Ketamine Paralytic: Succinylcholine Laryngoscope: Luciana Size: 4 ET Tube Size: 8 Other Airway Intervention: 22-23 Tube Secured Location: lips Tube Placement Confirmation: visualized tube passing t, no breath sounds over epi Patient Tolerated Procedure: well Intubation Complications: none ED Medical Decision Making - Lab Data Result diagrams: 08/29/16 17:40 08/29/16 17:40 - EKG Data -: EKG Interpreted by Me EKG shows normal: sinus rhythm, axis, intervals, QRS complexes, ST-T waves Rate: normal - EKG Data Nonspecific inferolateral ST T wave changes. Consider LVH. 08/29/16 19:00 - Radiology Data interpreted by me: Chest x-ray showed good line and tube placement. I don't see any other acute process. - Medical Decision Making Further diagnostic workup of this patient is going to be limited secondary to her weight. She is not eligible for any CAT scan procedure. She'll be admitted to the ICU for supportive care and further evaluation per the hospitalist staff. Critical care attestation.: If time is entered above; I have spent that time in minutes in the direct care of this critically ill patient, excluding procedure time. ED Disposition Clinical Impression: Lactic acidosis, Renal insufficiency Morbid obesity Qualifiers: Obesity type: unspecified obesity type Qualified Code(s): E66.01 - Morbid ( severe) obesity due to excess calories Altered mental status Qualifiers: Altered mental status type: unspecified Qualified Code(s): R41.82 - Altered mental status, unspecified Anemia Qualifiers: Anemia type: unspecified type Qualified Code(s): D64.9 - Anemia, unspecified Disposition: OP ADMITTED IP TO THIS HOSP Is pt being admited?: Yes Does the pt Need Aspirin: Yes Condition: Stable Referrals: PRIMARY CARE, [Primary Care Provider] - 3-5 Days Time of Disposition: 19:04
[2016-08-29 18:43] LABS: Cholesterol 130 mg/dL (50-199); HDL Cholesterol 3 mg/dL (40-59); LDL Cholesterol,Direct 82 mg/dL (50-130); Triglycerides 225 mg/dL (2-149)
[2016-08-29] MEDS ORDERED: NACL 0.9% 500 ML IV SCH (19:00)
[2016-08-29] MEDS ORDERED: ATIVAN 100 MG in NACL 0.9% 50 ML, VIAFLEX EMPTY CONTAINER 0 ML IV SCH (19:00)
[2016-08-29] MEDS ORDERED: BABY ASPIRIN PO ONE (19:05)
[2016-08-29] MEDS ORDERED: QUELICIN ONE (19:31)
[2016-08-29] MEDS ORDERED: AMIDATE IV ONE (19:31)
[2016-08-29] MEDS: ZOSYN/NS 4.5GM/100ML 4.5 GM/100 ML VIAL IV SCH (19:38)
[2016-08-29] MEDS ORDERED: PROTONIX IV ONE (19:43)
[2016-08-29] MEDS: LEVOPHED DRIP 4 MG/NS 250 ML 4 MG/250 ML BAG IV SCH (19:57)
[2016-08-29 19:58] LABS: ISTAT Base Excess -4; ISTAT HCO3 20.7; ISTAT PCO2 35.2 (35-45); ISTAT PH 7.378 (7.35-7.45); ISTAT PO2 57 (80-105); ISTAT SO2 89; ISTAT TCO2 22
--- NOTE | 2016-08-29 21:53 | Event Note ---
Date: 08/29/16 See H/P in reports Sepsis Acute resp failure Hypotensiom Morbid obesity IDDM
[2016-08-29] MEDS ORDERED: DULCOLAX PR PRN (21:57)
[2016-08-29] MEDS ORDERED: ZOFRAN IV PRN (21:57)
[2016-08-29] MEDS ORDERED: TYLENOL PO PRN (21:57)
[2016-08-29] MEDS ORDERED: MILK OF MAGNESIA PO PRN (21:57)
[2016-08-29] MEDS ORDERED: SODIUM BICARBONATE FEEDTUBE PRN (21:59)
[2016-08-29] MEDS ORDERED: SIMPLE SYRUP FEEDTUBE PRN ×2 (21:59)
[2016-08-29] MEDS ORDERED: PANCREAZE DR 10,500 UNIT FEEDTUBE PRN (21:59)
[2016-08-29] MEDS ORDERED: DUONEB 0.5 MG-3 MG/3 ML SOLN IH PRN (22:01)
--- NOTE | 2016-08-29 22:09 | History and Physical Report ---
History of Present Illness Date of examination: 08/29/16 Date of admission: 08/29/16 Medications and Allergies Allergies Allergy/AdvReac Type Severity Reaction Status Date / Time No Known Allergies Allergy Verified 01/11/16 00:24 Home Medications Medication Instructions Recorded Confirmed Last Taken Type AtorvaSTATin [Lipitor] 20 mg PO QDAY 01/11/16 07/09/16 07/08/16 History Citalopram [Celexa] 20 mg PO QDAY 01/11/16 07/09/16 07/08/16 History Folic Acid [Folvite] 1 mg PO QDAY 01/11/16 07/09/16 07/08/16 History Tizanidine HCl [tiZANidine] 2 mg PO Q8H 01/11/16 07/09/16 07/08/16 History amLODIPine [Norvasc] 10 mg PO DAILY 01/11/16 07/09/16 07/08/16 History Furosemide [Lasix TAB] 40 mg PO DAILY #30 01/20/16 07/09/16 07/08/16 Rx Gabapentin [Gralise] 300 mg PO BID #30 01/20/16 07/09/16 07/08/16 Rx Insulin Glargine [Lantus VIAL] 20 units SUB-Q QAMDIAB 30 Days 01/20/16 07/09/16 07/08/16 Rx Insulin Glulisine [Apidra] 6 units SUB-Q AC 30 Days 01/20/16 07/09/16 07/08/16 Rx Bumetanide [Bumex 1 mg tab] 1 mg PO QDAY #30 tablet 01/21/16 07/09/16 07/08/16 Rx Pantoprazole [Protonix TAB] 40 mg PO BID #60 tablet 01/21/16 07/09/16 07/08/16 Rx Warfarin [Coumadin] 5 mg PO QDAY #30 tablet 01/21/16 07/09/16 07/08/16 Rx HYDROcodone/APAP 5-325 [Echo 1 each PO Q6HR PRN #10 tablet 02/26/16 07/09/16 Rx 5-325 mg TAB] Acetaminophen [Acetaminophen TAB] 500 mg PO Q6HR #16 tablet 05/01/16 07/09/16 Rx Blood Sugar Diagnostic [Blood 1 each MC TIDAC #100 strip 05/01/16 07/09/1607/08 Rx Glucose Test Strip] Active Meds: Active Medications Acetaminophen (Tylenol) 650 mg PO Q4H PRN PRN Reason: Pain MILD(1-3)/Fever >100.5/DUBOSE Albuterol/Ipratropium (Duoneb 0.5 Mg-3 Mg/3 Ml Soln) 1 ampul IH Q6HRT KATHY Albuterol/Ipratropium (Duoneb 0.5 Mg-3 Mg/3 Ml Soln) 1 ampul IH Q3H PRN PRN Reason: Wheezing Lipase/Protease/Amylase (Pancreaze Dr 10,500 Unit) 1 each FEEDTUBE PRN PRN PRN Reason: For Clogged Feeding Tube Bisacodyl (Dulcolax) 10 mg HI QDAY PRN PRN Reason: Constipation unrelieved by MOM Furosemide (Lasix) 60 mg IV 0600,1800 KATHY Hydrophilic Ointment (Vaseline Lip Therapy) 1 applic TP Q2HR PRN PRN Reason: Dry Lips Lorazepam 100 mg/ Sodium Chloride/ Miscellaneous Information 100 mls @ 1 mls/ hr IV TITR KATHY; 1 MG/HR PRN Reason: Protocol Last Titration: 08/29/16 19:58 Dose: 2 mg/hr, 2 mls/hr Piperacillin Sod/Tazobactam Sod (Zosyn/Ns 4.5gm/100ml) 4.5 gm in 100 mls @ 200 mls/hr IV Q8H KATHY PRN Reason: Protocol Last Admin: 08/29/16 19:38 Dose: 200 mls/hr Norepinephrine (Levophed Drip 4 Mg/Ns 250 Ml) 4 mg in 250 mls @ 7.5 mls/hr IV TITR KATHY; 2 MCG/MIN PRN Reason: Protocol Last Titration: 08/29/16 20:54 Dose: 8 mcg/min, 30 mls/hr Levofloxacin/Dextrose (Levaquin 750mg/150ml) 750 mg in 150 mls @ 100 mls/hr IV Q24HR KATHY PRN Reason: Protocol Magnesium Hydroxide (Milk Of Magnesia) 30 ml PO Q4H PRN PRN Reason: Constipation Methylprednisolone Sodium Succinate (Solu-Medrol) 40 mg IV Q8HR KATHY Miscellaneous Medication (Insulin Glargine) 20 units SUB-Q QAMDIAB KATHY Multi-Ingred Cream/Lotion/Oil/Oint (Artificial Tears Ophth Oint) 1 applic OU Q4HR PRN PRN Reason: Dry Eye(s) Ondansetron HCl (Zofran) 4 mg IV Q8H PRN PRN Reason: N/V unrelieved by Reglan Potassium Chloride (K-Dur) 20 meq PO Q12H KATHY Simple Syrup (Simple Syrup) 15 ml FEEDTUBE PRN PRN PRN Reason: Hypoglycemia Simple Syrup (Simple Syrup) 30 ml FEEDTUBE PRN PRN PRN Reason: Hypoglycemia Sodium Bicarbonate (Sodium Bicarbonate) 325 mg FEEDTUBE PRN PRN PRN Reason: For Clogged Feeding Tube Sodium Chloride (Nacl 0.9% 500 Ml) 500 ml IV DIRECT KATHY Warfarin Sodium (Coumadin) 5 mg PO QDAY KATHY PRN Reason: Protocol Exam - Constitutional Vitals: Temp Pulse Resp BP Pulse Ox 97.3 F L 96 H 16 92/52 65 L 08/29/16 20:58 08/29/16 21:40 08/29/16 21:40 08/29/16 21:40 08/29/16 21:40 Results - Labs CBC & Chem 7: 08/29/16 17:40 08/29/16 17:40 Labs: Laboratory Last Values WBC 10.2 K/mm3 (4.5-11.0) 08/29/16 17:40 RBC 2.58 M/mm3 (3.65-5.03) L 08/29/16 17:40 Hgb 7.7 gm/dl (10.1-14.3) L 08/29/16 17:40 Hct 25.4 % (30.3-42.9) L 08/29/16 17:40 MCV 98 fl (79-97) H 08/29/16 17:40 MCH 30 pg (28-32) 08/29/16 17:40 MCHC 30 % (30-34) 08/29/16 17:40 RDW 23.0 % (13.2-15.2) H 08/29/16 17:40 Plt Count 330 K/mm3 (140-440) 08/29/16 17:40 Add Manual Diff Complete 08/29/16 17:40 Total Counted 100 08/29/16 17:40 Seg Neuts % (Manual) 70.0 % (40.0-70.0) 08/29/16 17:40 Band Neutrophils % 17.0 % 08/29/16 17:40 Lymphocytes % (Manual) 10.0 % (13.4-35.0) L 08/29/16 17:40 Reactive Lymphs % (Man) 0 % 08/29/16 17:40 Monocytes % (Manual) 3.0 % (0.0-7.3) 08/29/16 17:40 Eosinophils % (Manual) 0 % (0.0-4.3) 08/29/16 17:40 Basophils % (Manual) 0 % (0.0-1.8) 08/29/16 17:40 Metamyelocytes % 0 % 08/29/16 17:40 Myelocytes % 0 % 08/29/16 17:40 Promyelocytes % 0 % 08/29/16 17:40 Blast Cells % 0 % 08/29/16 17:40 Nucleated RBC % 3.0 % (0.0-0.9) H 08/29/16 17:40 Seg Neutrophils # Man 7.1 K/mm3 (1.8-7.7) 08/29/16 17:40 Band Neutrophils # 1.7 K/mm3 08/29/16 17:40 Lymphocytes # (Manual) 1.0 K/mm3 (1.2-5.4) L 08/29/16 17:40 Abs React Lymphs (Man) 0.0 K/mm3 08/29/16 17:40 Monocytes # (Manual) 0.3 K/mm3 (0.0-0.8) 08/29/16 17:40 Eosinophils # (Manual) 0.0 K/mm3 (0.0-0.4) 08/29/16 17:40 Basophils # (Manual) 0.0 K/mm3 (0.0-0.1) 08/29/16 17:40 Metamyelocytes # 0.0 K/mm3 08/29/16 17:40 Myelocytes # 0.0 K/mm3 08/29/16 17:40 Promyelocytes # 0.0 K/mm3 08/29/16 17:40 Blast Cells # 0.0 K/mm3 08/29/16 17:40 WBC Morphology Not Reportable 08/29/16 17:40 Hypersegmented Neuts Not Reportable 08/29/16 17:40 Hyposegmented Neuts Not Reportable 08/29/16 17:40 Hypogranular Neuts Not Reportable 08/29/16 17:40 Smudge Cells Not Reportable 08/29/16 17:40 Toxic Granulation Not Reportable 08/29/16 17:40 Toxic Vacuolation Not Reportable 08/29/16 17:40 Dohle Bodies Not Reportable 08/29/16 17:40 Pelger-Huet Anomaly Not Reportable 08/29/16 17:40 Feli Rods Not Reportable 08/29/16 17:40 Platelet Estimate Consistent w auto 08/29/16 17:40 Clumped Platelets Not Reportable 08/29/16 17:40 Plt Clumps, EDTA Not Reportable 08/29/16 17:40 Large Platelets Not Reportable 08/29/16 17:40 Giant Platelets Not Reportable 08/29/16 17:40 Platelet Satelliting Not Reportable 08/29/16 17:40 Plt Morphology Comment Not Reportable 08/29/16 17:40 RBC Morphology Not Reportable 08/29/16 17:40 Dimorphic RBCs Not Reportable 08/29/16 17:40 Polychromasia 1+ 08/29/16 17:40 Hypochromasia Not Reportable 08/29/16 17:40 Poikilocytosis Not Reportable 08/29/16 17:40 Anisocytosis 1+ 08/29/16 17:40 Microcytosis Not Reportable 08/29/16 17:40 Macrocytosis Not Reportable 08/29/16 17:40 Spherocytes Not Reportable 08/29/16 17:40 Pappenheimer Bodies Not Reportable 08/29/16 17:40 Sickle Cells Not Reportable 08/29/16 17:40 Target Cells Not Reportable 08/29/16 17:40 Tear Drop Cells Not Reportable 08/29/16 17:40 Ovalocytes Not Reportable 08/29/16 17:40 Helmet Cells Not Reportable 08/29/16 17:40 [place] Bodies Not Reportable 08/29/16 17:40 [place] Rings Not Reportable 08/29/16 17:40 Dana Cells Not Reportable 08/29/16 17:40 Bite Cells Not Reportable 08/29/16 17:40 Crenated Cell Not Reportable 08/29/16 17:40 Elliptocytes Not Reportable 08/29/16 17:40 Acanthocytes (Spur) Not Reportable 08/29/16 17:40 Rouleaux Not Reportable 08/29/16 17:40 Hemoglobin C Crystals Not Reportable 08/29/16 17:40 Schistocytes Not Reportable 08/29/16 17:40 Malaria parasites Not Reportable 08/29/16 17:40 Manny Bodies Not Reportable 08/29/16 17:40 Hem Pathologist Commnt No 08/29/16 17:40 PT 16.5 Sec. (12.2-14.9) H 08/29/16 17:40 INR 1.34 (0.87-1.13) H 08/29/16 17:40 APTT 29.5 Sec. (24.2-36.6) 08/29/16 17:40 POC ABG pH 7.378 (7.35-7.45) 08/29/16 19:48 POC ABG pCO2 35.2 (35-45) 08/29/16 19:48 POC ABG pO2 57 (80-105) L 08/29/16 19:48 POC ABG HCO3 20.7 08/29/16 19:48 POC ABG Total CO2 22 08/29/16 19:48 POC ABG O2 Sat 89 08/29/16 19:48 POC ABG Base Excess -4 08/29/16 19:48 VBG pH 7.366 (7.320-7.420) 08/29/16 17:40 FiO2 50 % 08/29/16 19:48 Sodium 133 mmol/L (137-145) L 08/29/16 17:40 Potassium 4.4 mmol/L (3.6-5.0) 08/29/16 17:40 Chloride 99.2 mmol/L (98-107) 08/29/16 17:40 Carbon Dioxide 20 mmol/L (22-30) L 08/29/16 17:40 Anion Gap 18 mmol/L 08/29/16 17:40 BUN 9 mg/dL (7-17) 08/29/16 17:40 Creatinine 1.5 mg/dL (0.7-1.2) H 08/29/16 17:40 Estimated GFR 43 ml/min 08/29/16 17:40 BUN/Creatinine Ratio 6.00 % 08/29/16 17:40 Glucose 104 mg/dL (65-100) H 08/29/16 17:40 POC Glucose 99 (70-105) 08/29/16 17:03 Lactic Acid 3.60 mmol/L (0.7-2.0) H* 08/29/16 20:10 Calcium 7.3 mg/dL (8.4-10.2) L 08/29/16 17:40 Phosphorus 3.30 mg/dL (2.5-4.5) 08/29/16 17:40 Magnesium 1.80 mg/dL (1.7-2.3) 08/29/16 17:40 Total Bilirubin 1.00 mg/dL (0.1-1.2) 08/29/16 17:40 AST 130 units/L (5-40) H 08/29/16 17:40 ALT 47 units/L (7-56) 08/29/16 17:40 Alkaline Phosphatase 384 units/L (35-129) H 08/29/16 17:40 Ammonia 73.0 umol/L (25-60) H 08/29/16 17:40 Total Creatine Kinase 28 units/L (30-135) L 08/29/16 17:40 CK-MB (CK-2) < 1.0 ng/mL (0.0-4.0) 08/29/16 17:40 CK-MB (CK-2) Rel Index 3.5 (0-4) 08/29/16 17:40 Troponin T 0.232 ng/mL (0.00-0.029) H* 08/29/16 17:40 NT-Pro-B Natriuret Pep 1712 pg/mL (0-900) H 08/29/16 17:40 Total Protein 6.2 g/dL (6.3-8.2) L 08/29/16 17:40 Albumin 1.2 g/dL (3.9-5) L 08/29/16 17:40 Albumin/Globulin Ratio 0.2 % 08/29/16 17:40 Triglycerides 225 mg/dL (2-149) H 08/29/16 17:40 Cholesterol 130 mg/dL (50-199) 08/29/16 17:40 LDL Cholesterol Direct 82 mg/dL (50-130) 08/29/16 17:40 HDL Cholesterol 3 mg/dL (40-59) L 08/29/16 17:40 Cholesterol/HDL Ratio 43.33 % 08/29/16 17:40 Blood Type O POSITIVE 08/29/16 18:15 Antibody Screen TNR 08/29/16 18:15 PATRICK Antibody Screen Negative 08/29/16 18:15 Crossmatch See Detail 08/29/16 18:15
[2016-08-29] MEDS ORDERED: NOVOLOG SUB-Q ONE (22:18)
[2016-08-29] MEDS ORDERED: PROVENTIL IH PRN (22:52)
--- NOTE | 2016-08-29 22:53 | Admit Criteria Form ---
Admission Criteria Documentation: SEPSIS and OTHER FEBRILE ILLNESS, W/O FOCAL INFECTION Clinical Indications for Admission to Inpatient Care ( Place 'X' for any and all applicable criteria): Admission is indicated for ANY ONE of the following (1)(2)(3)(4): [ ] I. Bacteremia [ ]II. Suspected or identified specific infection requiring hospitalization (eg, meningitis, endocarditis) [ ]III. Hemodynamic instability [ X]IV. Altered mental status [ ]V. Failure or unavailability of outpatient antimicrobial treatment [ ]. Hypoxemia [ ]VII. Seizures [ ]VIII. High-risk febrile neutropenia [ ]IX. Need for parenteral antibiotic in patient who is likely to abuse vascular access device (eg, injection drug user) [A](7) [ ]X. Temperature greater than 104.9 degrees F (40.5 degrees C) (oral) [ ]XI. Inpatient admission required rather than observation care because of ANY ONE of the following: [ ]1) Specific infection identified that is too severe for outpatient treatment or observation care trial [ ]2) Metabolic disorder (eg, hypoglycemia, hyperglycemia, metabolic acidosis) that is severe or persistent [ ]3) Temperature greater than 103.1 degrees F (39.5 degrees C) ( oral) that is not responsive to observation care treatment [ ]4) IV fluid to replace significant ongoing (eg, for over 24 hours) losses (> 3 L/m2 per day) [ ]5) Supplemental oxygen or respiratory treatments for over 24 hours that is performable only in acute inpatient setting [ ]6) Parenteral nutrition regimen need that must be implemented on inpatient basis [ ]7) Strict or protective (eg, laminar flow) isolation [ ]8) Other condition, treatment or monitoring requiring inpatient admission Extended stay beyond goal length of stay may be needed for(1)(3) [ ]a) Sepsis or septic shock(22) [ ]b) Positive blood cultures [ ]c) Insufficient oral intake [ ]d) High-risk febrile neutropenia(29)(30) [ ]e) Continued fever and clinical instability [ ]f) Clinically active comorbid illness (e.g,heart failure, renal failure , diabetes) The original [facility] content created by Suzie Nicolas has been revised. The portions of the content which have been revised are identified through the use of italic text or in bold, and Suzie Nicolas has neither reviewed nor approved the modified material. All other unmodified content is copyright [facility]. Please see references footnoted in the original [facility] edition 2016 Admission Criteria Met: Yes
--- NOTE | 2016-08-29 22:54 | XRay Report ---
FINAL REPORT PROCEDURE: XR ABDOMEN 1V AP TECHNIQUE: Abdominal series, including supine and upright AP views. HISTORY: OG tube placement COMPARISON: No prior studies are available for comparison. FINDINGS: Bowel gas pattern:Nonobstructive . Masses or calcifications:None . Bony structures:No significant abnormality . Pneumoperitoneum:None . Other:No significant findings. The NG tube is in the stomach. IMPRESSION: No acute abnormality. The NG tube is in the stomach.
[2016-08-29 22:58] LABS: Magnesium 1.8 mg/dL (1.7-2.3); Phosphorous 3.6 mg/dL (2.5-4.5); Prealbumin 0.12 g/L (0.200-0.400)
[2016-08-29] MEDS ORDERED: NACL 0.9% 1000 ML 1,000 ML IV SCH (23:00)
[2016-08-30] MEDS: DUONEB 0.5 MG-3 MG/3 ML SOLN IH SCH ×5 (02:51→20:06)
[2016-08-30] MEDS: ZOSYN/NS 4.5GM/100ML 4.5 GM/100 ML VIAL IV SCH ×3 (05:05→20:25)
[2016-08-30] MEDS: LEVOPHED DRIP 4 MG/NS 250 ML 4 MG/250 ML BAG IV SCH ×5 (05:24→22:34)
[2016-08-30] MEDS ORDERED: NON-FORMULARY (Insulin Glargine 20 UNITS) SUB-Q SCH (08:00)
[2016-08-30] MEDS: POTASSIUM CHLORIDE PO SCH ×4 (08:16→22:38)
[2016-08-30] MEDS: LEVEMIR SUB-Q SCH ×2 (08:18→11:17)
--- NOTE | 2016-08-30 08:23 | Progress Note ---
Assessment and Plan Assessment and plan: Records obtained from ER documentation of family Patient is a 61-year-old morbidly obese female past medical history of congestive heart failure, severe protein calorie malnutrition with BMI of 1.8, functional quadriplegia, type 2 diabetes mellitus, hypertension, multiple skin breakdown between legs and thighs per history presented to the hospital via EMS after the called EMS. The patient has not been verbally responsive for about 2 days. Although tracks and appears to be aware for involvement. By history patient has had intubations in the past history appears to have been unavailable apart from what is noted above. It appears patient has been admitted to the hospital in the past for CHF and also for abdominal pain with echocardiogram at that time showing ejection fraction of 50-55%. During the past admission patient was recommended for placement but refused. On presentation patient was felt to be able to maintain airway and intubated the ER and was admitted was also felt to be in florid heart failure with hemoglobin of 7.7 on the source of bleeding and shock syndrome with systolic pressures in the 70s requiring packed red blood cell transfusion * Acute toxic metabolic encephalopathy * Acute on chronic diastolic congestive heart failure * Acute on chronic respiratory failure * Septic shock with hypothermia * Hypercoagulable state * Severe anemia * Paroxysmal atrial fibrillation * Non-ST elevated NM * Acute on chronic kidney disease likely secondary to vasomotor nephropathy-POA * Transaminitis-elevated alkaline phosphatase and AST * Severe protein calorie malnutrition albumin 1.2 * Morbid obesity BMI 81.6 * PRESSURE ULCERS-POA PLAN: * Continue supportive care * Currently on the vent aspiration precautions sedation holiday as needed * Await cardiology, pump mechanic, nephrology consultation and input * Monitor electrolytes and replace as needed * Obtain CT of the brain * Obtain nutrition consultation * Continue antibiotics. Cultures revealed no growth to date. * Patient is on warfarin * We'll trend lactic acid. * He is better however if temperatures and improving. * Monitor his H&H * Is no neurological improvement will need a neurologic consultation * Continue Lasix, daily weights, strict ins and outs, * POOR prognosis 35 mins critical care time discussed with family member at bedside - he states patient was taken off warfarin months ago,. she was taking it for AFIB, but had low blood count. History Interval history: Patient seen and examined, remains intubated Hospitalist Physical - Physical exam Narrative exam: VITAL SIGNS: Reviewed. GENERAL: The patient appeared to be obese. Vital signs as documented. HEAD: No signs of head trauma. EYES: Pupils are equal. Extraocular motions intact. EARS: Hearing grossly intact. MOUTH: ET tube NECK: No adenopathy, no JVD. CHEST: Chest with decreased sounds bilaterally. No wheezes, rales, or rhonchi. CARDIAC: Regular rate and rhythm. S1 and S2, without murmurs, gallops, or rubs. VASCULAR: Lymphedema. Peripheral pulses normal and equal in all extremities. ABDOMEN: Soft, without detectable tenderness. Anasarca with edema extended to the abdominal [place] No sign of distention. No rebound or guarding, and no masses palpated. Bowel Sounds normal. MUSCULOSKELETAL: Good range of motion of all major joints. Extremities without clubbing, cyanosis or edema. NEUROLOGIC EXAM: Lethargic, stuporous PSYCHIATRIC: Mood flat SKIN: multiple pressure ulcers - - Constitutional Vitals: Temp Pulse Resp BP Pulse Ox 97.4 F L 76 18 101/59 100 08/30/16 08:00 08/30/16 08:18 08/30/16 08:18 08/30/16 07:43 08/30/16 07:43 Results - Labs CBC & Chem 7: 08/30/16 10:30 08/30/16 10:30 Labs: Laboratory Last Values WBC 10.2 K/mm3 (4.5-11.0) 08/29/16 17:40 RBC 2.58 M/mm3 (3.65-5.03) L 08/29/16 17:40 Hgb 7.7 gm/dl (10.1-14.3) L 08/29/16 17:40 Hct 25.4 % (30.3-42.9) L 08/29/16 17:40 MCV 98 fl (79-97) H 08/29/16 17:40 MCH 30 pg (28-32) 08/29/16 17:40 MCHC 30 % (30-34) 08/29/16 17:40 RDW 23.0 % (13.2-15.2) H 08/29/16 17:40 Plt Count 330 K/mm3 (140-440) 08/29/16 17:40 Add Manual Diff Complete 08/29/16 17:40 Total Counted 100 08/29/16 17:40 Seg Neuts % (Manual) 70.0 % (40.0-70.0) 08/29/16 17:40 Band Neutrophils % 17.0 % 08/29/16 17:40 Lymphocytes % (Manual) 10.0 % (13.4-35.0) L 08/29/16 17:40 Reactive Lymphs % (Man) 0 % 08/29/16 17:40 Monocytes % (Manual) 3.0 % (0.0-7.3) 08/29/16 17:40 Eosinophils % (Manual) 0 % (0.0-4.3) 08/29/16 17:40 Basophils % (Manual) 0 % (0.0-1.8) 08/29/16 17:40 Metamyelocytes % 0 % 08/29/16 17:40 Myelocytes % 0 % 08/29/16 17:40 Promyelocytes % 0 % 08/29/16 17:40 Blast Cells % 0 % 08/29/16 17:40 Nucleated RBC % 3.0 % (0.0-0.9) H 08/29/16 17:40 Seg Neutrophils # Man 7.1 K/mm3 (1.8-7.7) 08/29/16 17:40 Band Neutrophils # 1.7 K/mm3 08/29/16 17:40 Lymphocytes # (Manual) 1.0 K/mm3 (1.2-5.4) L 08/29/16 17:40 Abs React Lymphs (Man) 0.0 K/mm3 08/29/16 17:40 Monocytes # (Manual) 0.3 K/mm3 (0.0-0.8) 08/29/16 17:40 Eosinophils # (Manual) 0.0 K/mm3 (0.0-0.4) 08/29/16 17:40 Basophils # (Manual) 0.0 K/mm3 (0.0-0.1) 08/29/16 17:40 Metamyelocytes # 0.0 K/mm3 08/29/16 17:40 Myelocytes # 0.0 K/mm3 08/29/16 17:40 Promyelocytes # 0.0 K/mm3 08/29/16 17:40 Blast Cells # 0.0 K/mm3 08/29/16 17:40 WBC Morphology Not Reportable 08/29/16 17:40 Hypersegmented Neuts Not Reportable 08/29/16 17:40 Hyposegmented Neuts Not Reportable 08/29/16 17:40 Hypogranular Neuts Not Reportable 08/29/16 17:40 Smudge Cells Not Reportable 08/29/16 17:40 Toxic Granulation Not Reportable 08/29/16 17:40 Toxic Vacuolation Not Reportable 08/29/16 17:40 Dohle Bodies Not Reportable 08/29/16 17:40 Pelger-Huet Anomaly Not Reportable 08/29/16 17:40 Feli Rods Not Reportable 08/29/16 17:40 Platelet Estimate Consistent w auto 08/29/16 17:40 Clumped Platelets Not Reportable 08/29/16 17:40 Plt Clumps, EDTA Not Reportable 08/29/16 17:40 Large Platelets Not Reportable 08/29/16 17:40 Giant Platelets Not Reportable 08/29/16 17:40 Platelet Satelliting Not Reportable 08/29/16 17:40 Plt Morphology Comment Not Reportable 08/29/16 17:40 RBC Morphology Not Reportable 08/29/16 17:40 Dimorphic RBCs Not Reportable 08/29/16 17:40 Polychromasia 1+ 08/29/16 17:40 Hypochromasia Not Reportable 08/29/16 17:40 Poikilocytosis Not Reportable 08/29/16 17:40 Anisocytosis 1+ 08/29/16 17:40 Microcytosis Not Reportable 08/29/16 17:40 Macrocytosis Not Reportable 08/29/16 17:40 Spherocytes Not Reportable 08/29/16 17:40 Pappenheimer Bodies Not Reportable 08/29/16 17:40 Sickle Cells Not Reportable 08/29/16 17:40 Target Cells Not Reportable 08/29/16 17:40 Tear Drop Cells Not Reportable 08/29/16 17:40 Ovalocytes Not Reportable 08/29/16 17:40 Helmet Cells Not Reportable 08/29/16 17:40 [place] Bodies Not Reportable 08/29/16 17:40 [place] Rings Not Reportable 08/29/16 17:40 Dana Cells Not Reportable 08/29/16 17:40 Bite Cells Not Reportable 08/29/16 17:40 Crenated Cell Not Reportable 08/29/16 17:40 Elliptocytes Not Reportable 08/29/16 17:40 Acanthocytes (Spur) Not Reportable 08/29/16 17:40 Rouleaux Not Reportable 08/29/16 17:40 Hemoglobin C Crystals Not Reportable 08/29/16 17:40 Schistocytes Not Reportable 08/29/16 17:40 Malaria parasites Not Reportable 08/29/16 17:40 Manny Bodies Not Reportable 08/29/16 17:40 Hem Pathologist Commnt No 08/29/16 17:40 PT 16.5 Sec. (12.2-14.9) H 08/29/16 17:40 INR 1.34 (0.87-1.13) H 08/29/16 17:40 APTT 29.5 Sec. (24.2-36.6) 08/29/16 17:40 POC ABG pH 7.378 (7.35-7.45) 08/29/16 19:48 POC ABG pCO2 35.2 (35-45) 08/29/16 19:48 POC ABG pO2 57 (80-105) L 08/29/16 19:48 POC ABG HCO3 20.7 08/29/16 19:48 POC ABG Total CO2 22 08/29/16 19:48 POC ABG O2 Sat 89 08/29/16 19:48 POC ABG Base Excess -4 08/29/16 19:48 VBG pH 7.366 (7.320-7.420) 08/29/16 17:40 FiO2 50 % 08/29/16 19:48 Sodium 133 mmol/L (137-145) L 08/29/16 17:40 Potassium 4.4 mmol/L (3.6-5.0) 08/29/16 17:40 Chloride 99.2 mmol/L (98-107) 08/29/16 17:40 Carbon Dioxide 20 mmol/L (22-30) L 08/29/16 17:40 Anion Gap 18 mmol/L 08/29/16 17:40 BUN 9 mg/dL (7-17) 08/29/16 17:40 Creatinine 1.5 mg/dL (0.7-1.2) H 08/29/16 17:40 Estimated GFR 43 ml/min 08/29/16 17:40 BUN/Creatinine Ratio 6.00 % 08/29/16 17:40 Glucose 104 mg/dL (65-100) H 08/29/16 17:40 POC Glucose 128 (70-105) H 08/30/16 05:39 Lactic Acid 3.60 mmol/L (0.7-2.0) H* 08/29/16 20:10 Calcium 7.3 mg/dL (8.4-10.2) L 08/29/16 17:40 Phosphorus 3.60 mg/dL (2.5-4.5) 08/29/16 21:59 Magnesium 1.80 mg/dL (1.7-2.3) 08/29/16 21:59 Total Bilirubin 1.00 mg/dL (0.1-1.2) 08/29/16 17:40 AST 130 units/L (5-40) H 08/29/16 17:40 ALT 47 units/L (7-56) 08/29/16 17:40 Alkaline Phosphatase 384 units/L (35-129) H 08/29/16 17:40 Ammonia 73.0 umol/L (25-60) H 08/29/16 17:40 Total Creatine Kinase 28 units/L (30-135) L 08/29/16 17:40 CK-MB (CK-2) < 1.0 ng/mL (0.0-4.0) 08/29/16 17:40 CK-MB (CK-2) Rel Index 3.5 (0-4) 08/29/16 17:40 Troponin T 0.232 ng/mL (0.00-0.029) H* 08/29/16 17:40 NT-Pro-B Natriuret Pep 1712 pg/mL (0-900) H 08/29/16 17:40 Total Protein 6.2 g/dL (6.3-8.2) L 08/29/16 17:40 Albumin 1.2 g/dL (3.9-5) L 08/29/16 17:40 Albumin/Globulin Ratio 0.2 % 08/29/16 17:40 Prealbumin 0.120 g/L (0.200-0.400) L 08/29/16 21:59 Triglycerides 225 mg/dL (2-149) H 08/29/16 17:40 Cholesterol 130 mg/dL (50-199) 08/29/16 17:40 LDL Cholesterol Direct 82 mg/dL (50-130) 08/29/16 17:40 HDL Cholesterol 3 mg/dL (40-59) L 08/29/16 17:40 Cholesterol/HDL Ratio 43.33 % 08/29/16 17:40 Blood Type O POSITIVE 08/29/16 18:15 Antibody Screen TNR 08/29/16 18:15 PATRICK Antibody Screen Negative 08/29/16 18:15 Crossmatch See Detail 08/29/16 18:15 - Imaging and Cardiology Abdominal x-ray: image reviewed (unremarkable)
[2016-08-30] MEDS ORDERED: PANCREAZE DR 10,500 UNIT FEEDTUBE PRN (08:29)
[2016-08-30] MEDS ORDERED: SIMPLE SYRUP FEEDTUBE PRN ×2 (08:29)
[2016-08-30] MEDS ORDERED: SODIUM BICARBONATE FEEDTUBE PRN (08:29)
--- NOTE | 2016-08-30 09:07 | History and Physical Report ---
CHIEF COMPLAINT: Decreased breathing. HISTORY OF PRESENT ILLNESS: This 61-year-old morbidly obese female brought in by EMS for decreased responsiveness and decreased breathing. As per her close friend, the patient has been keeping her eyes open, but has been nonverbal. She was previously intubated. Apparently, the patient has not been breathing well and not communicating at all. No fever, no chills. The patient is unable to give any history. The patient was hypertensive when she came into the ER. The patient also had some abdominal pain. The patient had some abdominal pain in April and June. Diagnostic studies were limited because of the extreme obesity. A plain x-ray of the abdomen was done and the echocardiogram was done, which showed 50-55% ejection fraction. The patient has history of depression, hypertension, hyperlipidemia, and insulin-dependent diabetes. PAST MEDICAL HISTORY: As mentioned, hypertension, congestive heart failure, diabetes, high cholesterol, moderate obesity. PAST SURGICAL HISTORY: Left ankle surgery and lumpectomy. SOCIAL HISTORY: Does not smoke. No alcohol, no recreational drugs. HOME MEDICATIONS: Atorvastatin 20 mg once a day, citalopram 20 mg once a day, folic acid 1 mg p.o. daily, tizanidine 2 mg p.o. q.8, amlodipine 10 mg p.o. daily, insulin 20 units in the morning Lantus, and Apidra 6 units before each meal, Bumex 1 mg b.i.d., Protonix 40 mg twice a day, Coumadin 5 mg p.o. daily, [place]beau 5/325 q.6 p.r.n. ____ 500 mg p.o. q.6. REVIEW OF SYSTEMS: CONSTITUTIONAL: No fever, no weight loss, no weight gain, no chills. HEENT: No sore throat. No postnasal drip. CARDIOVASCULAR AND RESPIRATORY SYSTEM: As mentioned in history of present illness, decreased breathing and staring into space and decreases verbalization. No chest pain, no palpitations, no diaphoresis. GASTROINTESTINAL: There is some abdominal pain present, but no nausea, no vomiting. Genitourinary: No dysuria, no flank pain. MUSCULOSKELETAL: No joint pains. CENTRAL NERVOUS SYSTEM: Altered sensorium present. Decreased verbalization. No syncope, no seizures. A 14-point review of systems done. PHYSICAL EXAMINATION: GENERAL: Elderly female, morbidly obese, lying in bed. VITAL SIGNS: Temperature is 97.2, pulse is 90, respirations 16, blood pressure 87/36, sats 100%. HEENT: Unremarkable. Pupils equally reacting to light. Posterior pharynx is normal. NECK: Supple, no lymphadenopathy, no thyromegaly. LUNGS: Clear to auscultation and percussion. Good air entry. CARDIOVASCULAR: S1, S2 heard. No gallop, no murmur, no rub. Apical impulse in left fifth intercostal space and midclavicular line. ABDOMEN: Soft and benign. No hepatosplenomegaly. No guarding, no rigidity. Hernial orifices are normal. Morbidly obese. EXTREMITIES: Good pedal pulses. No pedal edema. CENTRAL NERVOUS SYSTEM: Alert and oriented x 4, nonfocal exam. SKIN: Normal. LABORATORY DATA: Significant for white count of 10,200, H and H is 7.7 and 25.4, platelet count of 330,000. INR is 1.34. Lactic acid is 3.20 and the second one is 3.60. Sodium is 133, potassium is 4.4, chloride is 99.2, bicarbonate is 20, BUN and creatinine 9 and 1.5, glucose is 104, calcium is 7.3, phosphorus is 3.3. ABG significant for pH of 7.378, pCO2 of 35.2, pO2 of 57, bicarbonate of 20.7, O2 sat of 89, pH of 7.366. Troponin 0.232. Prealbumin is 0.123, albumin is 1.2 low. ASSESSMENT AND PLAN: 1. Acute respiratory failure secondary to hypoventilation. The patient was intubated in the ER for protection of airway because the patient has decreased responsiveness. Continue vent support. Critical care consult requested. Vent management. 2. Sepsis. The patient has a low blood pressure and lactic acid of 3.2 and 3.6. The patient is hypotensive, Started on empiric abx for broad spectrum coverage. No source of infection found. Blood cultures done. Urine negative. Chest x-ray negative. No focus of infection found. 3 Severe malnutrition. The patient's albumin is 1.2. Dietary consult requested for tube feeding. Once the patient is alert and oriented, and extubated, dietitian to reconsult about healthy and lowcarb/high protein diet. Even though the patient is morbidly obese patient is malnourished. 4 High troponin appears to be nonspecific because the CKs are normal. CK is 28 and CK-MB is less than 1.0. 5. Deep venous thrombosis prophylaxis. The patient's INR is 1.34. The patient is on Coumadin. Etiology not clear. Question of atrial fibrillation present, but EKG shows sinus rhythm. Normal axis and intervals. Normal QRS complexes. Nonspecific ST-T wave changes. Deep venous thrombosis prophylaxis, Lovenox initiated because Coumadin level was subtherapeutic. Continue Coumadin. 6. Nutrition. Continue tube feeding as per incident commander. The patient will be counseled about hypoproteinemia and hypoalbuminemia after the patient is stable. CRITICAL CARE STATEMENT: The high probability of clinically significant sudden or life-threatening deterioration of the cardiorespiratory system required my full and direct attention, intervention and personal management. The aggregate critical care time was 40 minutes. The time is in addition to time spent on performing the reported procedures, which includes the followin. Data review and interpretation. 2. The patient assessment and monitoring of vital signs. 3. Documentation. 4. Medication orders and management. JOB# [id number] CIPRIANO/GLENNY BAJWA
--- NOTE | 2016-08-30 09:38 | XRay Report ---
AP CHEST :08/29/16 18:09 CLINICAL: Post intubation. COMPARISON:07/09/16 FINDINGS: Endotracheal tube has been placed and the tip is in the right mainstem bronchus. However, lung are normally expanded and clear. A nasogastric tube tip is below the diaphragm and not imaged. A left central venous catheter tip is in the distal SVC. No pneumothorax. IMPRESSION: Endotracheal tube tip in the right mainstem bronchus. Recommend 5 cm pullback.
[2016-08-30] MEDS: LEVAQUIN 750MG/150ML 750 MG/150 ML BAG IV SCH (10:19)
[2016-08-30 11:05] LABS: Basophils % (Auto) 0.1 % (0.0-1.8); Eosinophils % (Auto) 0.6 % (0.0-4.3); Hematocrit 29.9 % (30.3-42.9); Hemoglobin 8.7 gm/dl (10.1-14.3); Mean Corpuscular HGB Conc 29 % (30-34); Mean Corpuscular Hemoglobin 28 pg (28-32); Mean Corpuscular Volume 95 fl (79-97); Platelet Count 334 K/mm3 (140-440); Red Blood Count 3.16 M/mm3 (3.65-5.03); White Blood Count 11.1 K/mm3 (4.5-11.0)
[2016-08-30 11:17] LABS: Albumin 1.2 g/dL (3.9-5); Albumin/Globulin Ratio 0.2 %; Bilirubin,Total 1.3 mg/dL (0.1-1.2); Calcium 7.2 mg/dL (8.4-10.2); Chloride 100.4 mmol/L (98-107); Potassium 4.3 mmol/L (3.6-5.0); Total Protein 6.1 g/dL (6.3-8.2)
--- NOTE | 2016-08-30 11:18 | XRay Report ---
AP CHEST :08/30/16 09:46 CLINICAL: Intubated.Follow up respiratory failure. COMPARISON:08/29/16 18:09 FINDINGS: The endotracheal tube tip remains in the right mainstem bronchus. However, the lungs are normally expanded. The left lung is clear. Vague opacities in the right lung base with overlying soft tissue. Normal heart and pulmonary vessels. IMPRESSION: Endotracheal tube tip in the right mainstem bronchus. Recommend a 5 cm pullback or replacement of the tube.Right basal airspace disease is a possibility.
[2016-08-30] MEDS ORDERED: PNEUMOVAX 23 IM ONE (12:00)
[2016-08-30] MEDS: NOVOLOG SUB-Q SCH ×2 (12:29→18:35)
--- NOTE | 2016-08-30 13:50 | Consultation ---
History of Present Illness Consult date: 08/30/16 Requesting physician: PATRICA RIVAS Reason for consult: other (Acute Hypoxemic Respiratory Failure; Acute Encephalopathy) History of present illness: PULMONARY/CCM CONSULT NOTE (Full dictation # [id number]) Please see dictated notes for full details Medications and Allergies Allergies Allergy/AdvReac Type Severity Reaction Status Date / Time No Known Allergies Allergy Verified 01/11/16 00:24 Home Medications Medication Instructions Recorded Confirmed Last Taken Type AtorvaSTATin [Lipitor] 20 mg PO QDAY 01/11/16 07/09/16 07/08/16 History Citalopram [Celexa] 20 mg PO QDAY 01/11/16 07/09/16 07/08/16 History Folic Acid [Folvite] 1 mg PO QDAY 01/11/16 07/09/16 07/08/16 History Tizanidine HCl [tiZANidine] 2 mg PO Q8H 01/11/16 07/09/16 07/08/16 History amLODIPine [Norvasc] 10 mg PO DAILY 01/11/16 07/09/16 07/08/16 History Furosemide [Lasix TAB] 40 mg PO DAILY #30 01/20/16 07/09/16 07/08/16 Rx Gabapentin [Gralise] 300 mg PO BID #30 01/20/16 07/09/16 07/08/16 Rx Insulin Glargine [Lantus VIAL] 20 units SUB-Q QAMDIAB 30 Days 01/20/16 07/09/16 07/08/16 Rx Insulin Glulisine [Apidra] 6 units SUB-Q AC 30 Days 01/20/16 07/09/16 07/08/16 Rx Bumetanide [Bumex 1 mg tab] 1 mg PO QDAY #30 tablet 01/21/16 07/09/16 07/08/16 Rx Pantoprazole [Protonix TAB] 40 mg PO BID #60 tablet 01/21/16 07/09/16 07/08/16 Rx Warfarin [Coumadin] 5 mg PO QDAY #30 tablet 01/21/16 07/09/16 07/08/16 Rx HYDROcodone/APAP 5-325 [[place] 1 each PO Q6HR PRN #10 tablet 02/26/16 07/09/16 Rx 5-325 mg TAB] Acetaminophen [Acetaminophen TAB] 500 mg PO Q6HR #16 tablet 05/01/16 07/09/16 Rx Blood Sugar Diagnostic [Blood 1 each TIDAC #100 strip 05/01/16 07/09/1607/08 Rx Glucose Test Strip] Active Meds: Active Medications Acetaminophen (Tylenol) 650 mg PO Q4H PRN PRN Reason: Pain MILD(1-3)/Fever >100.5/DUBOSE Albuterol (Proventil) 2.5 mg IH Q3HRT PRN PRN Reason: Shortness Of Breath Albuterol/Ipratropium (Duoneb 0.5 Mg-3 Mg/3 Ml Soln) 1 ampul IH Q6HRT [facility] [place] Last Admin: 08/30/16 07:43 Dose: Not Given Lipase/Protease/Amylase (Pancreaze Dr 10,500 Unit) 1 each FEEDTUBE PRN PRN PRN Reason: For Clogged Feeding Tube Bisacodyl (Dulcolax) 10 mg MT QDAY PRN PRN Reason: Constipation unrelieved by MOM Furosemide (Lasix) 60 mg IV 0600,1800 KATHY Hydrophilic Ointment (Vaseline Lip Therapy) 1 applic TP Q2HR PRN PRN Reason: Dry Lips Lorazepam 100 mg/ Sodium Chloride/ Miscellaneous Information 100 mls @ 1 mls/ hr IV TITR KATHY; 1 MG/HR PRN Reason: Protocol Last Titration: 08/29/16 19:58 Dose: 2 mg/hr, 2 mls/hr Piperacillin Sod/Tazobactam Sod (Zosyn/Ns 4.5gm/100ml) 4.5 gm in 100 mls @ 200 mls/hr IV Q8H KATHY PRN Reason: Protocol Last Admin: 08/30/16 11:19 Dose: 200 mls/hr Norepinephrine (Levophed Drip 4 Mg/Ns 250 Ml) 4 mg in 250 mls @ 7.5 mls/hr IV TITR KATHY; 2 MCG/MIN PRN Reason: Protocol Last Admin: 08/30/16 13:33 Dose: 15 mcg/min, 56.25 mls/hr Levofloxacin/Dextrose (Levaquin 750mg/150ml) 750 mg in 150 mls @ 100 mls/hr IV Q48HR KATHY PRN Reason: Protocol Last Admin: 08/30/16 10:19 Dose: 100 mls/hr Sodium Chloride (Nacl 0.9% 1000 Ml) 1,000 mls @ 42 mls/hr IV DIRECT [facility] [place] Last Admin: 08/30/16 10:12 Dose: 42 mls/hr Insulin Aspart (Novolog) 0 units SUB-Q Q6HR [facility] [place] PRN Reason: Protocol Last Admin: 08/30/16 12:29 Dose: Not Given Insulin Detemir (Levemir) 20 units SUB-Q QAM@0800 [facility] [place] Last Admin: 08/30/16 11:17 Dose: 20 units Magnesium Hydroxide (Milk Of Magnesia) 30 ml PO Q4H PRN PRN Reason: Constipation Methylprednisolone Sodium Succinate (Solu-Medrol) 40 mg IV Q8HR [facility] [place] Last Admin: 08/30/16 13:30 Dose: 40 mg Multi-Ingred Cream/Lotion/Oil/Oint (Artificial Tears Ophth Oint) 1 applic OU Q4HR PRN PRN Reason: Dry Eye(s) Ondansetron HCl (Zofran) 4 mg IV Q8H PRN PRN Reason: N/V unrelieved by Reglan Potassium Chloride (Potassium Chloride) 20 meq PO Q12HR [facility] [place] Last Admin: 08/30/16 10:48 Dose: 20 meq Simple Syrup (Simple Syrup) 15 ml FEEDTUBE PRN PRN PRN Reason: Hypoglycemia Simple Syrup (Simple Syrup) 30 ml FEEDTUBE PRN PRN PRN Reason: Hypoglycemia Sodium Bicarbonate (Sodium Bicarbonate) 325 mg FEEDTUBE PRN PRN PRN Reason: For Clogged Feeding Tube Sodium Bicarbonate (Sodium Bicarbonate) 325 mg FEEDTUBE PRN PRN PRN Reason: For Clogged Feeding Tube Sodium Chloride (Nacl 0.9% 500 Ml) 500 ml IV DIRECT [facility] [place] Warfarin Sodium (Coumadin) 5 mg PO 1700 [facility] [place] PRN Reason: Protocol Physical Examination Vital signs: Vital Signs Pulse Ox 100 08/29/16 16:06 Results - Laboratory Findings CBC and BMP: 08/30/16 10:30 08/30/16 10:30 ABG POC ABG pH 7.378 (7.35-7.45) 08/29/16 19:48 POC ABG pCO2 35.2 (35-45) 08/29/16 19:48 POC ABG pO2 57 (80-105) L 08/29/16 19:48 POC ABG HCO3 20.7 08/29/16 19:48 POC ABG Total CO2 22 08/29/16 19:48 POC ABG O2 Sat 89 08/29/16 19:48 PT/INR, D-dimer PT 16.5 Sec. (12.2-14.9) H 08/29/16 17:40 INR 1.34 (0.87-1.13) H 08/29/16 17:40 Abnormal lab findings: Abnormal Labs 08/29/16 08/30/16 08/30/16 21:59 00:16 05:39 WBC RBC Hgb Hct MCHC RDW Seg Neutrophils % Seg Neutrophils # Sodium Carbon Dioxide Creatinine Glucose POC Glucose 106 H 128 H Calcium Total Bilirubin AST Alkaline Phosphatase Total Protein Albumin Prealbumin 0.120 L 08/30/16 08/30/16 10:30 10:30 WBC 11.1 H RBC 3.16 L Hgb 8.7 L Hct 29.9 L MCHC 29 L RDW 25.0 H Seg Neutrophils % 78.6 H Seg Neutrophils # 8.7 H Sodium 135 L Carbon Dioxide 20 L Creatinine 1.5 H Glucose 148 H POC Glucose Calcium 7.2 L Total Bilirubin 1.30 H AST 143 H Alkaline Phosphatase 392 H Total Protein 6.1 L Albumin 1.2 L Prealbumin
[2016-08-30] MEDS ORDERED: COUMADIN PO SCH (17:00)
[2016-08-30] MEDS ORDERED: CEPHULAC PO PRN (17:22)
[2016-08-30] MEDS: PROTONIX PO SCH (17:58)
[2016-08-30] MEDS: LASIX IV SCH (17:58)
[2016-08-30 18:34] LABS: ISTAT Base Excess -3; ISTAT HCO3 22.3; ISTAT PCO2 39.7 (35-45); ISTAT PH 7.358 (7.35-7.45); ISTAT PO2 59 (80-105); ISTAT SO2 89; ISTAT TCO2 24
[2016-08-30 18:34] LABS: ISTAT Base Excess -3; ISTAT HCO3 22.7; ISTAT PCO2 44.4 (35-45); ISTAT PH 7.316 (7.35-7.45); ISTAT PO2 44 (80-105); ISTAT SO2 75; ISTAT TCO2 24
[2016-08-30] MEDS: LOVENOX SUB-Q SCH (22:39)
[2016-08-31] MEDS: NOVOLOG SUB-Q SCH ×4 (01:13→18:44)
[2016-08-31] MEDS: DUONEB 0.5 MG-3 MG/3 ML SOLN IH SCH ×4 (02:34→19:32)
[2016-08-31] MEDS: ZOSYN/NS 4.5GM/100ML 4.5 GM/100 ML VIAL IV SCH ×3 (04:15→20:11)
[2016-08-31 05:17] LABS: INR 1.37 (0.87-1.13)
[2016-08-31 05:24] LABS: Mean Corpuscular HGB Conc 29 % (30-34); Mean Corpuscular Hemoglobin 27 pg (28-32); Mean Corpuscular Volume 94 fl (79-97); Platelet Count 305 K/mm3 (140-440); Red Blood Count 3.19 M/mm3 (3.65-5.03); White Blood Count 18.3 K/mm3 (4.5-11.0)
[2016-08-31 05:25] LABS: Hemoglobin 8.8 gm/dl (10.1-14.3); Red Cell Distribution Width 23.9 % (13.2-15.2)
[2016-08-31 05:34] LABS: ISTAT Base Excess -2; ISTAT PCO2 40.7 (35-45); ISTAT PH 7.359 (7.35-7.45); ISTAT PO2 142 (80-105); ISTAT SO2 99; ISTAT TCO2 24
[2016-08-31 05:38] LABS: Albumin 1.2 g/dL (3.9-5); Albumin/Globulin Ratio 0.2 %; Bilirubin,Total 1.5 mg/dL (0.1-1.2); Chloride 102.2 mmol/L (98-107); Potassium 4.3 mmol/L (3.6-5.0); Total Protein 6.2 g/dL (6.3-8.2)
[2016-08-31] MEDS: LASIX IV SCH ×4 (05:50→20:12)
--- NOTE | 2016-08-31 07:20 | Consultation ---
History of Present Illness - Reason for Consult Consult date: 08/31/16 acute renal failure - History of Present Illness Patient is a 59-year-old AAF with history significant for Hypertension, Type 2 diabetes, CHF, Hyperlipidemia, A. fib, Morbid obesity and bedbound was brought into the Emergency room with complaints of altered mental status. Patient is not able to provide any history at this time and there was no family members at the bedside. Patient was not talking for about 2 days. She has kept her eyes open but non-verbal. Her sBP was 70s on admission and she is on Levophed. Patient is currently intubated and on mechanical ventilation. Her creatinine is 1.5 since admission and her baseline creatinine is around 1. Past History Past Medical History: anemia, diabetes, hypertension, hyperlipidemia, other ( Morbid Obesity) Medications and Allergies Allergies Allergy/AdvReac Type Severity Reaction Status Date / Time No Known Allergies Allergy Verified 01/11/16 00:24 Home Medications Medication Instructions Recorded Confirmed Last Taken Type AtorvaSTATin [Lipitor] 20 mg PO QDAY 01/11/16 08/31/16 07/08/16 History Folic Acid [Folvite] 1 mg PO QDAY 01/11/16 08/31/16 07/08/16 History Tizanidine HCl [tiZANidine] 2 mg PO Q8H 01/11/16 08/31/16 07/08/16 History amLODIPine [Norvasc] 10 mg PO DAILY 01/11/16 08/31/16 07/08/16 History Insulin Glargine [Lantus VIAL] 20 units SUB-Q QAMDIAB 30 Days 01/20/16 08/31/16 07/08/16 Rx Insulin Glulisine [Apidra] 6 units SUB-Q AC 30 Days 01/20/16 08/31/16 07/08/16 Rx Pantoprazole [Protonix TAB] 40 mg PO BID #60 tablet 01/21/16 08/31/16 07/08/16 Rx HYDROcodone/APAP 5-325 [[place] 1 each PO Q6HR PRN #10 tablet 02/26/16 08/31/16 Rx 5-325 mg TAB] Blood Sugar Diagnostic [Blood 1 each MC TIDAC #100 strip 05/01/16 08/31/1607/08 Rx Glucose Test Strip] Gabapentin 300 mg PO TID 08/31/16 08/31/16 Unknown History Active Meds: Active Medications Acetaminophen (Tylenol) 650 mg PO Q4H PRN PRN Reason: Pain MILD(1-3)/Fever >100.5/DUBOSE Albuterol (Proventil) 2.5 mg IH Q3HRT PRN PRN Reason: Shortness Of Breath Albuterol/Ipratropium (Duoneb 0.5 Mg-3 Mg/3 Ml Soln) 1 ampul IH Q6HRT [facility] Last Admin: 08/31/16 07:18 Dose: 1 ampul Lipase/Protease/Amylase (Pancreaze Dr 10,500 Unit) 1 each FEEDTUBE PRN PRN PRN Reason: For Clogged Feeding Tube Bisacodyl (Dulcolax) 10 mg [place] QDAY PRN PRN Reason: Constipation unrelieved by MOM Enoxaparin Sodium (Lovenox) 40 mg SUB-Q QDAY@2200 [facility] Last Admin: 08/30/16 22:39 Dose: 40 mg Furosemide (Lasix) 60 mg IV 0600,1800 [facility] Last Admin: 08/31/16 06:35 Dose: 60 mg Hydrophilic Ointment (Vaseline Lip Therapy) 1 applic TP Q2HR PRN PRN Reason: Dry Lips Lorazepam 100 mg/ Sodium Chloride/ Miscellaneous Information 100 mls @ 1 mls/ hr IV TITR KATHY; 1 MG/HR PRN Reason: Protocol Last Titration: 08/29/16 19:58 Dose: 2 mg/hr, 2 mls/hr Piperacillin Sod/Tazobactam Sod (Zosyn/Ns 4.5gm/100ml) 4.5 gm in 100 mls @ 200 mls/hr IV Q8H KATHY PRN Reason: Protocol Last Admin: 08/31/16 04:15 Dose: 200 mls/hr Norepinephrine (Levophed Drip 4 Mg/Ns 250 Ml) 4 mg in 250 mls @ 7.5 mls/hr IV TITR KATHY; 2 MCG/MIN PRN Reason: Protocol Last Admin: 08/30/16 22:34 Dose: 10 mcg/min, 37.5 mls/hr Levofloxacin/Dextrose (Levaquin 750mg/150ml) 750 mg in 150 mls @ 100 mls/hr IV Q48HR KATHY PRN Reason: Protocol Last Admin: 08/30/16 10:19 Dose: 100 mls/hr Sodium Chloride (Nacl 0.9% 1000 Ml) 1,000 mls @ 42 mls/hr IV DIRECT [facility] Last Admin: 08/30/16 10:12 Dose: 42 mls/hr Insulin Aspart (Novolog) 0 units SUB-Q Q6HR KATHY PRN Reason: Protocol Last Admin: 08/31/16 06:38 Dose: Not Given Insulin Detemir (Levemir) 20 units SUB-Q QAM@0800 [facility] Last Admin: 08/30/16 11:17 Dose: 20 units Lactulose (Cephulac) 20 gm PO Q6H PRN PRN Reason: Constipation Magnesium Hydroxide (Milk Of Magnesia) 30 ml PO Q4H PRN PRN Reason: Constipation Methylprednisolone Sodium Succinate (Solu-Medrol) 40 mg IV Q8HR [facility] Last Admin: 08/31/16 06:38 Dose: 40 mg Multi-Ingred Cream/Lotion/Oil/Oint (Artificial Tears Ophth Oint) 1 applic OU Q4HR PRN PRN Reason: Dry Eye(s) Ondansetron HCl (Zofran) 4 mg IV Q8H PRN PRN Reason: N/V unrelieved by Reglan Pantoprazole (Protonix) 40 mg PO QDAY [facility] Last Admin: 08/30/16 17:58 Dose: 40 mg Potassium Chloride (Potassium Chloride) 20 meq PO Q12HR [facility] Last Admin: 08/30/16 22:38 Dose: 20 meq Simple Syrup (Simple Syrup) 15 ml FEEDTUBE PRN PRN PRN Reason: Hypoglycemia Simple Syrup (Simple Syrup) 30 ml FEEDTUBE PRN PRN PRN Reason: Hypoglycemia Sodium Bicarbonate (Sodium Bicarbonate) 325 mg FEEDTUBE PRN PRN PRN Reason: For Clogged Feeding Tube Sodium Chloride (Nacl 0.9% 500 Ml) 500 ml IV DIRECT [facility] Review of Systems ROS unobtainable: due to endotracheal tube, due to mental status Exam - Vital Signs Vital signs: Vital Signs Pulse Ox 100 08/29/16 16:06 - General Appearance General appearance: well-developed, well-nourished, appears stated age, obese, sedated on ventilator (FiO2 40%), intubated EENT: ATNC, PERRL Neck: Present: neck supple Respiratory: Clear to Ascultation Heart: regular, S1S2, no murmurs Gastrointestinal: Present: obese. Absent: normoactive bowel sounds Integumentary: no rash Neurologic: other (not responding) Musculoskeletal: Present: other (2+ edema of both LEs noted) Results - Lab Results 08/31/16 04:20 08/31/16 15:45 Most recent lab results Calcium 7.0 mg/dL (8.4-10.2) L 08/31/16 04:20 Phosphorus 3.60 mg/dL (2.5-4.5) 08/29/16 21:59 Magnesium 1.80 mg/dL (1.7-2.3) 08/29/16 21:59 Assessment and Plan - Patient Problems (1) RORY (acute kidney injury) Current Visit: No Status: Acute Plan to address problem: Acute Kidney Injury is hemodynamically mediated in the setting of hypotension / shock. Renal function is stable. Continue current treatment. (2) Shock Current Visit: Yes Status: Acute (3) Respiratory failure Current Visit: Yes Status: Acute Qualifiers: Chronicity: C Respiratory failure complication: R Plan to address problem: On vent. (4) Altered mental status Current Visit: Yes Status: Acute Qualifiers: Altered mental status type: unspecified Coma depth: C Coma timing: C Qualified Code(s): R41.82 - Altered mental status, unspecified
--- NOTE | 2016-08-31 08:52 | XRay Report ---
Single view chest: Compared to 08/30/16. History: Followup respiratory failure. Findings: Normal cardiomediastinal silhouette. Trachea is midline. Tip of endotracheal tube in normal position. No consolidation, pneumothorax or pleural effusion. Stable support system. Impression: No acute lung changes. Haziness right lower lobe is probably related to overlying soft tissue.
[2016-08-31] MEDS: LEVEMIR SUB-Q SCH (09:02)
--- NOTE | 2016-08-31 10:15 | Progress Note ---
Assessment and Plan - Patient Problems (1) Respiratory failure Current Visit: Yes Status: Acute Qualifiers: Chronicity: C Respiratory failure complication: R Plan to address problem: Currently on mechanical ventilatory support AC-VC 16/500/PEEP8/60% ABG 7.36/41/142/23/-2.Continue with MVS VAP bundle addressed HOB>40, aspiration precautions VTE prophylaxis- enoxaparin Stress ulcer prophylaxis- Pantoprazole Sedation/Analgesia- Lorazepam---discontinue this and start on fentanyl once she starts becoming more responsive Lung protective strategies Continue with enteric feedings, monitor accucheck, glycemic control- keep blood glucose<180mg/dl (2) Shock Current Visit: Yes Status: Acute Plan to address problem: Treated as septic shock secondary to HCAP - Wean vasopressor support for MAP>65 Continue with antibiotics for now. Follow up cultures and de-escalate/re-evaluate on going need for antibiotics (3) Acute on chronic diastolic (congestive) heart failure Current Visit: No Status: Acute Plan to address problem: Documented EF 55% Increased diuretic while monitoring renal function and electrolyte profile closely (4) Altered mental status Current Visit: Yes Status: Acute Qualifiers: Altered mental status type: unspecified Coma depth: C Coma timing: C Qualified Code(s): R41.82 - Altered mental status, unspecified Plan to address problem: CThead and EEG pending Suspect this is metabolic/toxic encephalopathy but need to r/o non convulsive seizure activity and any acute intracranial processes (5) Morbid obesity Current Visit: Yes Status: Acute Qualifiers: Obesity type: unspecified obesity type Qualified Code(s): E66.01 - Morbid ( severe) obesity due to excess calories (6) Anemia Current Visit: Yes Status: Acute Qualifiers: Anemia type: unspecified type Iron deficiency anemia type: I Vitamin B12 deficiency anemia type: V Folate deficiency anemia type: F Bone marrow failure anemia type: B Hemolytic anemia type: H Other causes of anemia: O (7) Hyponatremia Current Visit: Yes Status: Acute Plan to address problem: Continue to monitor closely and trend Subjective Date of service: 08/31/16 Interval history: No acute overnight events. at the bedside. Remains unresponsive. Sedation has been discontinued. On empiric antibiotics for possible HCAP. Remains orally intubated. Seen and examined. Vitals, labs, medications, chart and imaging reviewed. Discussed care at interdisciplinary rounds Objective - Exam Narrative Exam: VITAL SIGNS: Reviewed. No ventilator-patient dysynchrony GENERAL: Morbidly obese. Vital signs as documented. HEAD: No signs of head trauma. EYES: Pupils are equal. Extraocular motions intact. MOUTH: ET tube NECK: No adenopathy, no JVD. CHEST: Chest with decreased sounds bilaterally. No wheezes, rales, or rhonchi. CARDIAC: Regular rate and rhythm. S1 and S2, without murmurs, gallops, or rubs. VASCULAR: Lymphedema. Peripheral pulses normal and equal in all extremities. ABDOMEN: Soft, without detectable tenderness. Anasarca with edema extended to the abdominal hamilton No sign of distention. No rebound or guarding, and no masses palpated. Bowel Sounds normal. MUSCULOSKELETAL: Extremities without clubbing or cyanosis NEUROLOGIC EXAM: Lethargic, stuporous, not obeying any commands SKIN: multiple pressure ulcers - Vital Signs - 12hr 08/30/16 08/30/16 08/30/16 22:21 22:30 22:41 Temperature Pulse Rate 76 77 75 Pulse Rate [ Anterior Left Throughout] Pulse Rate [ Throughout] Respiratory 17 16 16 Rate Respiratory Rate [Anterior Left Throughout ] Respiratory Rate [ Throughout] Blood Pressure 108/53 105/59 105/59 O2 Sat by Pulse 100 100 Oximetry 08/30/16 08/30/16 08/30/16 22:51 23:00 23:11 Temperature Pulse Rate 76 74 78 Pulse Rate [ Anterior Left Throughout] Pulse Rate [ Throughout] Respiratory 18 17 21 Rate Respiratory Rate [Anterior Left Throughout ] Respiratory Rate [ Throughout] Blood Pressure 99/51 97/45 97/45 O2 Sat by Pulse 100 97 Oximetry 08/30/16 08/30/16 08/30/16 23:21 23:30 23:39 Temperature Pulse Rate 79 80 78 Pulse Rate [ Anterior Left Throughout] Pulse Rate [ Throughout] Respiratory 18 21 20 Rate Respiratory Rate [Anterior Left Throughout ] Respiratory Rate [ Throughout] Blood Pressure 112/49 102/56 102/56 O2 Sat by Pulse 100 100 Oximetry 08/30/16 08/30/16 08/31/16 23:41 23:51 00:00 Temperature Pulse Rate 80 78 78 Pulse Rate [ Anterior Left Throughout] Pulse Rate [ Throughout] Respiratory 21 17 17 Rate Respiratory Rate [Anterior Left Throughout ] Respiratory Rate [ Throughout] Blood Pressure 102/56 109/49 107/59 O2 Sat by Pulse 100 100 87 Oximetry 08/31/16 08/31/16 08/31/16 00:11 00:21 00:25 Temperature Pulse Rate 78 77 76 Pulse Rate [ Anterior Left Throughout] Pulse Rate [ Throughout] Respiratory 19 19 Rate Respiratory Rate [Anterior Left Throughout ] Respiratory Rate [ Throughout] Blood Pressure 102/56 105/61 100/55 O2 Sat by Pulse 100 100 100 Oximetry 08/31/16 08/31/16 08/31/16 00:30 00:41 00:51 Temperature Pulse Rate 77 76 76 Pulse Rate [ Anterior Left Throughout] Pulse Rate [ Throughout] Respiratory 17 16 16 Rate Respiratory Rate [Anterior Left Throughout ] Respiratory Rate [ Throughout] Blood Pressure 114/59 107/59 106/51 O2 Sat by Pulse 99 100 100 Oximetry 08/31/16 08/31/16 08/31/16 01:00 01:11 01:21 Temperature Pulse Rate 75 76 76 Pulse Rate [ Anterior Left Throughout] Pulse Rate [ Throughout] Respiratory 16 16 16 Rate Respiratory Rate [Anterior Left Throughout ] Respiratory Rate [ Throughout] Blood Pressure 100/55 106/51 91/53 O2 Sat by Pulse 100 100 Oximetry 08/31/16 08/31/16 08/31/16 01:30 01:41 01:51 Temperature Pulse Rate 76 75 76 Pulse Rate [ Anterior Left Throughout] Pulse Rate [ Throughout] Respiratory 16 16 16 Rate Respiratory Rate [Anterior Left Throughout ] Respiratory Rate [ Throughout] Blood Pressure 97/59 100/55 102/55 O2 Sat by Pulse 100 100 100 Oximetry 08/31/16 08/31/16 08/31/16 02:00 02:11 02:21 Temperature Pulse Rate 74 74 75 Pulse Rate [ Anterior Left Throughout] Pulse Rate [ Throughout] Respiratory 16 16 16 Rate Respiratory Rate [Anterior Left Throughout ] Respiratory Rate [ Throughout] Blood Pressure 104/48 91/53 44/17 O2 Sat by Pulse 100 100 100 Oximetry 08/31/16 08/31/16 08/31/16 02:30 02:34 02:41 Temperature Pulse Rate 74 73 Pulse Rate [ 73 Anterior Left Throughout] Pulse Rate [ Throughout] Respiratory 16 16 Rate Respiratory 16 Rate [Anterior Left Throughout ] Respiratory Rate [ Throughout] Blood Pressure 111/55 111/55 O2 Sat by Pulse 100 Oximetry 08/31/16 08/31/16 08/31/16 02:44 02:51 03:00 Temperature Pulse Rate 73 73 Pulse Rate [ 78 Anterior Left Throughout] Pulse Rate [ Throughout] Respiratory 16 16 Rate Respiratory 18 Rate [Anterior Left Throughout ] Respiratory Rate [ Throughout] Blood Pressure 108/54 106/54 O2 Sat by Pulse 100 Oximetry 08/31/16 08/31/16 08/31/16 03:11 03:21 03:30 Temperature Pulse Rate 72 73 74 Pulse Rate [ Anterior Left Throughout] Pulse Rate [ Throughout] Respiratory 16 16 16 Rate Respiratory Rate [Anterior Left Throughout ] Respiratory Rate [ Throughout] Blood Pressure 106/54 102/55 102/51 O2 Sat by Pulse 100 100 Oximetry 08/31/16 08/31/16 08/31/16 03:41 03:51 04:00 Temperature Pulse Rate 74 74 77 Pulse Rate [ Anterior Left Throughout] Pulse Rate [ Throughout] Respiratory 15 15 16 Rate Respiratory Rate [Anterior Left Throughout ] Respiratory Rate [ Throughout] Blood Pressure 102/51 120/61 114/57 O2 Sat by Pulse 100 100 100 Oximetry 08/31/16 08/31/16 08/31/16 04:11 04:21 04:30 Temperature Pulse Rate 75 73 74 Pulse Rate [ Anterior Left Throughout] Pulse Rate [ Throughout] Respiratory 17 14 17 Rate Respiratory Rate [Anterior Left Throughout ] Respiratory Rate [ Throughout] Blood Pressure 114/57 96/44 118/61 O2 Sat by Pulse 100 100 Oximetry 08/31/16 08/31/16 08/31/16 04:41 04:51 05:00 Temperature Pulse Rate 75 75 74 Pulse Rate [ Anterior Left Throughout] Pulse Rate [ Throughout] Respiratory 16 16 16 Rate Respiratory Rate [Anterior Left Throughout ] Respiratory Rate [ Throughout] Blood Pressure 118/61 116/56 91/48 O2 Sat by Pulse 100 100 Oximetry 08/31/16 08/31/16 08/31/16 05:11 05:21 05:24 Temperature Pulse Rate 77 74 75 Pulse Rate [ Anterior Left Throughout] Pulse Rate [ Throughout] Respiratory 16 16 Rate Respiratory Rate [Anterior Left Throughout ] Respiratory Rate [ Throughout] Blood Pressure 116/56 115/49 115/49 O2 Sat by Pulse 100 100 100 Oximetry 08/31/16 08/31/16 08/31/16 05:30 05:41 05:51 Temperature Pulse Rate 72 71 72 Pulse Rate [ Anterior Left Throughout] Pulse Rate [ Throughout] Respiratory 15 14 14 Rate Respiratory Rate [Anterior Left Throughout ] Respiratory Rate [ Throughout] Blood Pressure 105/51 115/49 101/53 O2 Sat by Pulse 95 100 100 Oximetry 08/31/16 08/31/16 08/31/16 06:00 06:11 06:21 Temperature Pulse Rate 71 72 72 Pulse Rate [ Anterior Left Throughout] Pulse Rate [ Throughout] Respiratory 8 L 12 14 Rate Respiratory Rate [Anterior Left Throughout ] Respiratory Rate [ Throughout] Blood Pressure 102/54 102/54 103/58 O2 Sat by Pulse 98 100 100 Oximetry 08/31/16 08/31/16 08/31/16 06:30 06:41 07:15 Temperature Pulse Rate 71 72 73 Pulse Rate [ Anterior Left Throughout] Pulse Rate [ Throughout] Respiratory 12 16 Rate Respiratory Rate [Anterior Left Throughout ] Respiratory Rate [ Throughout] Blood Pressure 109/55 109/55 111/66 O2 Sat by Pulse 100 100 100 Oximetry 08/31/16 08/31/16 07:18 08:00 Temperature 97.3 F L Pulse Rate Pulse Rate [ Anterior Left Throughout] Pulse Rate [ 71 Throughout] Respiratory Rate Respiratory Rate [Anterior Left Throughout ] Respiratory 16 Rate [ Throughout] Blood Pressure O2 Sat by Pulse Oximetry CBC and BMP: 08/31/16 04:20 08/31/16 15:45 ABG, PT/INR, D-dimer: ABG POC ABG pH 7.359 (7.35-7.45) 08/31/16 05:24 POC ABG pCO2 40.7 (35-45) 08/31/16 05:24 POC ABG pO2 142 (80-105) H 08/31/16 05:24 POC ABG HCO3 23.0 08/31/16 05:24 POC ABG Total CO2 24 08/31/16 05:24 POC ABG O2 Sat 99 08/31/16 05:24 PT/INR, D-dimer PT 16.8 Sec. (12.2-14.9) H 08/31/16 04:20 INR 1.37 (0.87-1.13) H 08/31/16 04:20 Abnormal lab findings: Abnormal Labs 08/29/16 08/30/16 08/30/16 21:59 00:16 05:39 WBC RBC Hgb Hct MCH MCHC RDW Seg Neutrophils % Seg Neutrophils # PT INR POC ABG pH POC ABG pO2 Sodium Carbon Dioxide Creatinine Glucose POC Glucose 106 H 128 H Lactic Acid Calcium Total Bilirubin AST Alkaline Phosphatase Ammonia C-Reactive Protein Total Protein Albumin Prealbumin 0.120 L 08/30/16 08/30/16 08/30/16 10:30 10:30 11:12 WBC 11.1 H RBC 3.16 L Hgb 8.7 L Hct 29.9 L MCH MCHC 29 L RDW 25.0 H Seg Neutrophils % 78.6 H Seg Neutrophils # 8.7 H PT INR POC ABG pH POC ABG pO2 Sodium 135 L Carbon Dioxide 20 L Creatinine 1.5 H Glucose 148 H POC Glucose 142 H Lactic Acid Calcium 7.2 L Total Bilirubin 1.30 H AST 143 H Alkaline Phosphatase 392 H Ammonia C-Reactive Protein Total Protein 6.1 L Albumin 1.2 L Prealbumin 08/30/16 08/30/16 08/30/16 17:41 18:03 18:18 WBC RBC Hgb Hct MCH MCHC RDW Seg Neutrophils % Seg Neutrophils # PT INR POC ABG pH 7.316 L POC ABG pO2 44 L 59 L Sodium Carbon Dioxide Creatinine Glucose POC Glucose 150 H Lactic Acid Calcium Total Bilirubin AST Alkaline Phosphatase Ammonia C-Reactive Protein Total Protein Albumin Prealbumin 08/30/16 08/30/16 08/31/16 22:20 22:20 00:11 WBC RBC Hgb Hct MCH MCHC RDW Seg Neutrophils % Seg Neutrophils # PT INR POC ABG pH POC ABG pO2 Sodium Carbon Dioxide Creatinine Glucose POC Glucose 133 H Lactic Acid 2.30 H* Calcium Total Bilirubin AST Alkaline Phosphatase Ammonia C-Reactive Protein 10.20 H Total Protein Albumin Prealbumin 08/31/16 08/31/16 08/31/16 04:20 04:20 04:20 WBC 18.3 H RBC 3.19 L Hgb 8.8 L Hct 30.0 L MCH 27 L MCHC 29 L RDW 23.9 H Seg Neutrophils % Seg Neutrophils # PT 16.8 H INR 1.37 H POC ABG pH POC ABG pO2 Sodium 136 L Carbon Dioxide 19 L Creatinine 1.5 H Glucose 125 H POC Glucose Lactic Acid Calcium 7.0 L Total Bilirubin 1.50 H AST 131 H Alkaline Phosphatase 431 H Ammonia C-Reactive Protein Total Protein 6.2 L Albumin 1.2 L Prealbumin 08/31/16 08/31/16 08/31/16 04:20 05:22 05:24 WBC RBC Hgb Hct MCH MCHC RDW Seg Neutrophils % Seg Neutrophils # PT INR POC ABG pH POC ABG pO2 142 H Sodium Carbon Dioxide Creatinine Glucose POC Glucose 123 H Lactic Acid Calcium Total Bilirubin AST Alkaline Phosphatase Ammonia 70.0 H C-Reactive Protein Total Protein Albumin Prealbumin Chest x-ray: report reviewed Allied health notes reviewed: RT ED Critical Care Note - Critical Care Note Total Time (mins): 35 Critical Care Time: Yes Critical care time in (mins) excluding proc time.: 35 Critical care attestation.: If time is entered above; I have spent that time in minutes in the direct care of this critically ill patient, excluding procedure time.
--- NOTE | 2016-08-31 10:28 | Consultation ---
PULMONARY CRITICAL CARE CONSULT NOTE CONSULTING PHYSICIAN: Emanuel Aguilar M.D. REASON FOR CONSULTATION: Altered mental status, acute respiratory failure on mechanical ventilatory support. CHIEF COMPLAINT AND HISTORY OF PRESENT ILLNESS: The patient is a 61-year-old female with past medical history significant amongst other things for a diagnosis of congestive heart failure and morbid obesity who was brought into the Emergency Room because according to her , she had not been talking for two days. She had been aware. She was tracking largely but not responding to verbal stimuli. She kept her eyes open, but otherwise was nonviable. She was hypotensive at the time of presentation as a result of the patient been essentially obtunded. She was intubated for airway protection. Blood pressure responded to volume boluses we were asked to assist with management. We stopped by to see her, she was on sedation. She were to open her eyes occasionally to ____1.47, but was not following commands appropriately at that time. I do not have any history of nausea, vomiting, or overt aspiration. It is unclear if she was having any upper respiratory tract or other symptoms of an infection prior to coming into the ER. This is much of the limited history as I have on this lady. PAST MEDICAL HISTORY: Significant for hypertension, congestive heart failure, diabetes, morbid obesity, and hyperlipidemia. PAST SURGICAL HISTORY: She has had a left ankle surgery and lumpectomy. MEDICATIONS: She was on at the time I stopped by to see her according to the medication administration record included the following: Albuterol treatments 2.5 mg nebulized q.3h. p.r.n. shortness of breath, DuoNeb was scheduled q.6h., Dulcolax p.r.n., Lasix 60 mg IV b.i.d., insulin via sliding scale, detemir insulin 20 units subq q.a.m., Levaquin 750 mg IV q.48 h, p.r.n. milk of magnesia, Solu-Medrol 40 mg IV q.8h. She was on Levophed drip at 20 mcg per minute, Zofran 4 mg IV q.8h. p.r.n. nausea and vomiting, and Zosyn 4.5 g IV q.8h. ALLERGIES: No known drug allergies. DIET: Morbidly obese lady, acute weight loss or gain history is unknown. FAMILY AND SOCIAL HISTORY: Lives in the community. She is . She denied being on any tobacco use or abuse according to the at presentation, alcohol or illicit drug use or abuse history is unknown. REVIEW OF SYSTEMS: Unobtainable secondary to the patient's medical and mental condition. Since she has been here, no gross hematochezia or melena, no gross hematuria, no hematemesis. No hemoptysis. No seizures. PHYSICAL EXAMINATION: VITAL SIGNS: At presentation in the emergency room, she was afebrile, temperature 97.2, pulse was 90, respiratory rate was 16, blood pressure was 87/36, oxygen sats 100%, inspired oxygen concentration was not recorded. HEAD, EYES, EARS, NOSE AND THROAT: Pupils are equal, round, about 2 mm, sluggishly reactive to light. Extraocular muscle movements could not be assessed. Endotracheal tube was in place, taped at the lips around 23 to 24 cm. LUNGS: Auscultation of both lung rodriguez, bilateral breath sounds were heard basilar rales, no wheezing. HEART: Heart sounds 1 and 2 are heard, regular rate and rhythm at the time of my evaluation. ABDOMEN: Soft and full. Bowel sounds are positive, did not appear tender. EXTREMITIES: Very about 2+ bipedal pitting edema. No significant digital clubbing or cyanosis. NEUROLOGIC: She was sedated appeared to have spontaneous withdraws to noxious stimuli to all extremities. LABORATORY DATA: From my review are as follows: Admission white cell count 10,200, hemoglobin 7.7, hematocrit 25.4, and platelets 330. No band forms reported of significance. INR 1.34. Arterial blood gas showed a pH of 7.38, pCO2 of 35, pO2 of 57 that was on 50% at that time. Serum sodium 133, potassium 4.4, chloride 99, bicarbonate 20, BUN 9, creatinine 1.5, glucose 104. Lactic acid level was 3.2. I went up to 3.6 yesterday. Phosphorus, mag within normal limits. AST was up at 130, ALT within normal limits. Ammonia was up at 73. Troponin was up at 0.23. BNP was elevated at 1712. Albumin was 1.2. White count today 11,100. BUN today 9, creatinine is 21.5. AST is 143. Radiographic studies have been reviewed. I should first of all mention that all cultures have no growth to date from blood cultures and tracheal aspirate. Chest x-ray was done at admission and I have reviewed the radiologist's interpretation. The chest tube does appear to be the tip just in the right main stem bronchus without any significant atelectasis of the left lung. No gross pneumothorax, no gross bony fracture that has a left subclavian central line in place, tip is in the distal SVC. No gross bony fractures. A chest x-ray was repeated today, unfortunately I do see the x-ray now shows more prominent infiltrates in the bases, right greater than left. Endotracheal tube tip appears to be at the lower level of the clavicular heads. Feeding tube is seen coursing through the mediastinum. No gross pneumothorax, no gross bony fracture appears increased volume overload, although it may be due to the penetration and upon further review, the ET tube tip does appear to be at the right main stem bronchus opening. ASSESSMENT AND PLAN: We have an elderly lady in with altered mental status, elevated lactic acid levels and was essentially septic. From a respiratory standpoint, we will keep her on full mechanical ventilatory support. Arterial blood gas is pending. She is currently on assist control 500, tidal volumes I believe rate is 16, but FiO2 is at 80% we will get a stat arterial blood gas and make changes from there. Oxygen will be titrated to keep sats greater than or equal to about 92% initially until we get down below 60%. Aspiration precautions and other ventilator bundles will be instituted and we can get down to appreciable acceptable normals. We will begin weaning her. From a cardiovascular standpoint, she is on a Levophed drip at this time. Sepsis is what we have blaming this on. She will benefit obviously from a 2D echocardiogram, and note the BMP is elevated at 1712. Cardiology evaluation may also be in order in this patient. We will continue gentle diuresis for now and trend cardiac enzymes. I should also mention that from a hematologic standpoint, a stat D-dimer will be ordered and a venous thromboembolic disorder workup will be done. For now, she will be placed on GI prophylaxis. She is on mechanical GI prophylaxis. She will be placed on IV subacute heparinization. From GI and nutritional standpoint, enteral nutrition will be the feeding modality of choice. Aspiration precautions will be maintained and she will be placed on GI prophylaxis. From a [employer] standpoint, CT of the brain should be in order. However, it is unclear if she was just unable to get into the CT scanner. She does open her eyes. I do believe Neurology has been consulted. She does have spontaneous movement to all extremities. We will follow up on the CT of the brain. From an infectious disease standpoint, she is appropriately on broad-spectrum anti-infective coverage. I will order a CRP level. Anti-infectives will ultimately be deescalated based on results of clinical and microbiologic data. From a general and hospital healthcare maintenance standpoint, she is going to be on GI and DVT prophylaxis. Flu and pneumonia vaccination will be per protocol. From a GI standpoint, I should mention she will be placed on lactulose and we will try and get the ammonia level back within normal limits and see if that does not improve her mental status. Thank you very much for the consult. We will follow along. We will make further recommendations as picture progresses/becomes clearer. She is critically ill on life-sustaining interventions including mechanical ventilator support at risk for further deterioration including . At this point, I have spent about 35-40 minutes of critical care time without overlap and excluding any procedural time that may be necessary. JOB# [id number] GEN/GLENNY
[2016-08-31] MEDS: PROTONIX PO SCH (10:40)
[2016-08-31] MEDS: POTASSIUM CHLORIDE PO SCH ×2 (10:40→22:03)
[2016-08-31] MEDS: LEVOPHED DRIP 4 MG/NS 250 ML 4 MG/250 ML BAG IV SCH (10:45)
[2016-08-31] MEDS ORDERED: ZAROXOLYN PO SCH (11:00)
[2016-08-31] MEDS ORDERED: fentaNYL DRIP Premix 2,000 MCG/100 ML BAG IV SCH (11:00)
--- NOTE | 2016-08-31 11:02 | Consultation ---
History of Present Illness Consult date: 08/31/16 Consult reason: congestive heart failure History of present illness: This is a 61yr old woman whom is morbidly obese, bedridden with multiple skin breakdown lesions was brought to this hospital with altered mental status. Patient was subsequently intubated in the ED for airway protection and is currently on pressor support. A cardiac consultation is requested for CHF. There is no evidence of CHF on chest x-ray reports. An echocardiogram, done 2 months ago, shows a normal left ventricular systolic function, ejection fraction 50-55%. Medications and Allergies Allergies Allergy/AdvReac Type Severity Reaction Status Date / Time No Known Allergies Allergy Verified 01/11/16 00:24 Home Medications Medication Instructions Recorded Confirmed Last Taken Type AtorvaSTATin [Lipitor] 20 mg PO QDAY 01/11/16 07/09/16 07/08/16 History Citalopram [Celexa] 20 mg PO QDAY 01/11/16 07/09/16 07/08/16 History Folic Acid [Folvite] 1 mg PO QDAY 01/11/16 07/09/16 07/08/16 History Tizanidine HCl [tiZANidine] 2 mg PO Q8H 01/11/16 07/09/16 07/08/16 History amLODIPine [Norvasc] 10 mg PO DAILY 01/11/16 07/09/16 07/08/16 History Furosemide [Lasix TAB] 40 mg PO DAILY #30 01/20/16 07/09/16 07/08/16 Rx Gabapentin [Gralise] 300 mg PO BID #30 01/20/16 07/09/16 07/08/16 Rx Insulin Glargine [Lantus VIAL] 20 units SUB-Q QAMDIAB 30 Days 01/20/16 07/09/16 07/08/16 Rx Insulin Glulisine [Apidra] 6 units SUB-Q AC 30 Days 01/20/16 07/09/16 07/08/16 Rx Bumetanide [Bumex 1 mg tab] 1 mg PO QDAY #30 tablet 01/21/16 07/09/16 07/08/16 Rx Pantoprazole [Protonix TAB] 40 mg PO BID #60 tablet 01/21/16 07/09/16 07/08/16 Rx Warfarin [Coumadin] 5 mg PO QDAY #30 tablet 01/21/16 07/09/16 07/08/16 Rx HYDROcodone/APAP 5-325 [[place] 1 each PO Q6HR PRN #10 tablet 02/26/16 07/09/16 Rx 5-325 mg TAB] Acetaminophen [Acetaminophen TAB] 500 mg PO Q6HR #16 tablet 05/01/16 07/09/16 Rx Blood Sugar Diagnostic [Blood 1 each TIDAC #100 strip 05/01/16 07/09/1607/08 Rx Glucose Test Strip] Active Meds: Active Medications Acetaminophen (Tylenol) 650 mg PO Q4H PRN PRN Reason: Pain MILD(1-3)/Fever >100.5/DUBOSE Albuterol (Proventil) 2.5 mg IH Q3HRT PRN PRN Reason: Shortness Of Breath Albuterol/Ipratropium (Duoneb 0.5 Mg-3 Mg/3 Ml Soln) 1 ampul IH Q6HRT [facility] Last Admin: 08/31/16 07:18 Dose: 1 ampul Lipase/Protease/Amylase (Pancreaze Dr 10,500 Unit) 1 each FEEDTUBE PRN PRN PRN Reason: For Clogged Feeding Tube Bisacodyl (Dulcolax) 10 mg NM QDAY PRN PRN Reason: Constipation unrelieved by MOM Enoxaparin Sodium (Lovenox) 40 mg SUB-Q QDAY@2200 [facility] Last Admin: 08/30/16 22:39 Dose: 40 mg Furosemide (Lasix) 60 mg IV Q8H [facility] Hydrophilic Ointment (Vaseline Lip Therapy) 1 applic TP Q2HR PRN PRN Reason: Dry Lips Piperacillin Sod/Tazobactam Sod (Zosyn/Ns 4.5gm/100ml) 4.5 gm in 100 mls @ 200 mls/hr IV Q8H KATHY PRN Reason: Protocol Last Admin: 08/31/16 04:15 Dose: 200 mls/hr Norepinephrine (Levophed Drip 4 Mg/Ns 250 Ml) 4 mg in 250 mls @ 7.5 mls/hr IV TITR KATHY; 2 MCG/MIN PRN Reason: Protocol Last Titration: 08/31/16 10:41 Dose: 7.5 mcg/min, 28.125 mls/hr Levofloxacin/Dextrose (Levaquin 750mg/150ml) 750 mg in 150 mls @ 100 mls/hr IV Q48HR KATHY PRN Reason: Protocol Last Admin: 08/30/16 10:19 Dose: 100 mls/hr Sodium Chloride (Nacl 0.9% 1000 Ml) 1,000 mls @ 42 mls/hr IV DIRECT [facility] Last Admin: 08/30/16 10:12 Dose: 42 mls/hr Fentanyl Citrate (Fentanyl Drip Premix) 2,000 mcg in 100 mls @ 9.48 mls/hr IV TITR KATHY; 1 MCG/KG/HR PRN Reason: Protocol Insulin Aspart (Novolog) 0 units SUB-Q Q6HR [facility] PRN Reason: Protocol Last Admin: 08/31/16 06:38 Dose: Not Given Insulin Detemir (Levemir) 20 units SUB-Q QAM@0800 [facility] Last Admin: 08/31/16 09:02 Dose: 20 units Lactulose (Cephulac) 20 gm PO Q6H PRN PRN Reason: Constipation Magnesium Hydroxide (Milk Of Magnesia) 30 ml PO Q4H PRN PRN Reason: Constipation Methylprednisolone Sodium Succinate (Solu-Medrol) 40 mg IV Q8HR [facility] Last Admin: 08/31/16 06:38 Dose: 40 mg Metolazone (Zaroxolyn) 5 mg PO Q24H [facility] Multi-Ingred Cream/Lotion/Oil/Oint (Artificial Tears Ophth Oint) 1 applic OU Q4HR PRN PRN Reason: Dry Eye(s) Ondansetron HCl (Zofran) 4 mg IV Q8H PRN PRN Reason: N/V unrelieved by Reglan Pantoprazole (Protonix) 40 mg PO QDAY [facility] Last Admin: 08/31/16 10:40 Dose: 40 mg Potassium Chloride (Potassium Chloride) 20 meq PO Q12HR [facility] Last Admin: 08/31/16 10:40 Dose: 20 meq Simple Syrup (Simple Syrup) 15 ml FEEDTUBE PRN PRN PRN Reason: Hypoglycemia Simple Syrup (Simple Syrup) 30 ml FEEDTUBE PRN PRN PRN Reason: Hypoglycemia Sodium Bicarbonate (Sodium Bicarbonate) 325 mg FEEDTUBE PRN PRN PRN Reason: For Clogged Feeding Tube Sodium Chloride (Nacl 0.9% 500 Ml) 500 ml IV DIRECT KATHY Physical Examination Vital Signs Pulse Ox 100 08/29/16 16:06 General appearance: other (intubated on the vent) Cardiac: Positive: Reg Rate and Rhythm Results 08/31/16 04:20 08/31/16 04:20 Cardiac Enzymes 08/30/16 08/31/16 Range/Units 10:30 04:20 AST 143 H 131 H (5-40) units/L Coagulation 08/31/16 Range/Units 04:20 PT 16.8 H (12.2-14.9) Sec. INR 1.37 H (0.87-1.13) CBC 08/30/16 08/31/16 Range/Units 10:30 04:20 WBC 11.1 H 18.3 H (4.5-11.0) K/mm3 RBC 3.16 L 3.19 L (3.65-5.03) M/mm3 Hgb 8.7 L 8.8 L (10.1-14.3) gm/dl Hct 29.9 L 30.0 L (30.3-42.9) % Plt Count 334 305 (140-440) K/mm3 Lymph # 1.7 (1.2-5.4) K/mm3 [place] # 0.6 (0.0-0.8) K/mm3 Eos # 0.1 (0.0-0.4) K/mm3 Baso # 0.0 (0.0-0.1) K/mm3 Comprehensive Metabolic Panel 08/30/16 08/31/16 Range/Units 10:30 04:20 Sodium 135 L 136 L (137-145) mmol/L Potassium 4.3 4.3 (3.6-5.0) mmol/L Chloride 100.4 102.2 (98-107) mmol/L Carbon Dioxide 20 L 19 L (22-30) mmol/L BUN 9 9 (7-17) mg/dL Creatinine 1.5 H 1.5 H (0.7-1.2) mg/dL Glucose 148 H 125 H (65-100) mg/dL Calcium 7.2 L 7.0 L (8.4-10.2) mg/dL AST 143 H 131 H (5-40) units/L ALT 50 50 (7-56) units/L Alkaline Phosphatase 392 H 431 H (35-129) units/L Total Protein 6.1 L 6.2 L (6.3-8.2) g/dL Albumin 1.2 L 1.2 L (3.9-5) g/dL Assessment and Plan Altered mental status Acute respiratory failure intubated on the vent Lactic acidosis Anemia requiring blood transfusion Obesity Decubitus ulcer Sepsis
[2016-08-31 16:21] LABS: Bacteria,Urine 1+ /HPF (Negative); Bilirubin,Urine NEG (Negative); Blood,Urine SM (Negative); Ketones,Urine NEG (Negative); Leukocyte Esterase,Urine SM (Negative); Mucus,Urine FEW /HPF; Nitrite,Urine NEG (Negative); Protein,Urine <15 mg/dL mg/dL (Negative); Urobilinogen,Urine < 2.0 mg/dL (<2.0)
[2016-08-31 16:44] LABS: Calcium 6.9 mg/dL (8.4-10.2); Chloride 101.4 mmol/L (98-107); Potassium 4.3 mmol/L (3.6-5.0)
--- NOTE | 2016-08-31 17:25 | Progress Note ---
Assessment and Plan Assessment and plan: Records obtained from ER documentation of family Patient is a 61-year-old morbidly obese female past medical history of congestive heart failure, severe protein calorie malnutrition with BMI of 1.8, functional quadriplegia, type 2 diabetes mellitus, hypertension, multiple skin breakdown between legs and thighs per history presented to the hospital via EMS after the called EMS. The patient has not been verbally responsive for about 2 days. Although tracks and appears to be aware for involvement. By history patient has had intubations in the past history appears to have been unavailable apart from what is noted above. It appears patient has been admitted to the hospital in the past for CHF and also for abdominal pain with echocardiogram at that time showing ejection fraction of 50-55%. During the past admission patient was recommended for placement but refused. On presentation patient was felt to be able to maintain airway and intubated the ER and was admitted was also felt to be in florid heart failure with hemoglobin of 7.7 on the source of bleeding and shock syndrome with systolic pressures in the 70s requiring packed red blood cell transfusion * Acute toxic metabolic encephalopathy * Acute on chronic diastolic congestive heart failure * Acute on chronic respiratory failure * Septic shock with hypothermia * Hypercoagulable state * Severe anemia * Mitral stenosis * Paroxysmal atrial fibrillation * Non-ST elevated IA * Acute on chronic kidney disease likely secondary to vasomotor nephropathy-POA * Transaminitis-elevated alkaline phosphatase and AST * Severe protein calorie malnutrition albumin 1.2 * Morbid obesity BMI 81.6 * PRESSURE ULCERS-POA PLAN: * Continue supportive care * Currently on the vent aspiration precautions sedation holiday as needed * S/P 1 UNIT PRBC * Monitor electrolytes and replace as needed * Obtain CT of the brain * Obtain nutrition consultation * change sedation medications as benzos have long half life in fat cells. * Conservating mangement per cardiology * Continue antibiotics. Cultures revealed no growth to date. * Patient is on warfarin * We'll trend lactic acid. * He is better however if temperatures and improving. * Monitor his H&H * Is no neurological improvement will need a neurologic consultation * Continue Lasix, daily weights, strict ins and outs, * POOR prognosis 35 mins critical care time discussed with family member at bedside - he states patient was taken off warfarin months ago,. she was taking it for AFIB, but had low blood count. STILL AWAITING RECORDS History Interval history: Patient seen and examined, remains intubated, SEDATED Hospitalist Physical - Physical exam Narrative exam: VITAL SIGNS: Reviewed. GENERAL: The patient appeared to be obese. Vital signs as documented. HEAD: No signs of head trauma. EYES: Pupils are equal. Extraocular motions intact. EARS: Hearing grossly intact. MOUTH: ET tube NECK: No adenopathy, no JVD. CHEST: Chest with decreased sounds bilaterally. No wheezes, rales, or rhonchi. CARDIAC: Regular rate and rhythm. S1 and S2, without murmurs, gallops, or rubs. VASCULAR: Lymphedema. Peripheral pulses normal and equal in all extremities. ABDOMEN: Soft, without detectable tenderness. Anasarca with edema extended to the abdominal [place] No sign of distention. No rebound or guarding, and no masses palpated. Bowel Sounds normal. MUSCULOSKELETAL: Good range of motion of all major joints. Extremities without clubbing, cyanosis or edema. NEUROLOGIC EXAM: Lethargic, stuporous PSYCHIATRIC: Mood flat SKIN: multiple pressure ulcers - - Constitutional Vitals: Temp Pulse Resp BP Pulse Ox 97.4 F L 72 16 95/50 100 08/31/16 12:02 08/31/16 16:05 08/31/16 16:05 08/31/16 15:21 08/31/16 15:21 General appearance: Present: other (intubated on the vent) Results - Labs CBC & Chem 7: 08/31/16 04:20 08/31/16 15:45 Labs: Laboratory Last Values WBC 18.3 K/mm3 (4.5-11.0) H 08/31/16 04:20 RBC 3.19 M/mm3 (3.65-5.03) L 08/31/16 04:20 Hgb 8.8 gm/dl (10.1-14.3) L 08/31/16 04:20 Hct 30.0 % (30.3-42.9) L 08/31/16 04:20 MCV 94 fl (79-97) 08/31/16 04:20 MCH 27 pg (28-32) L 08/31/16 04:20 MCHC 29 % (30-34) L 08/31/16 04:20 RDW 23.9 % (13.2-15.2) H 08/31/16 04:20 Plt Count 305 K/mm3 (140-440) 08/31/16 04:20 Lymph % (Auto) 15.6 % (13.4-35.0) 08/30/16 10:30 [place] % (Auto) 5.1 % (0.0-7.3) 08/30/16 10:30 Eos % (Auto) 0.6 % (0.0-4.3) 08/30/16 10:30 Baso % (Auto) 0.1 % (0.0-1.8) 08/30/16 10:30 Lymph # 1.7 K/mm3 (1.2-5.4) 08/30/16 10:30 [place] # 0.6 K/mm3 (0.0-0.8) 08/30/16 10:30 Eos # 0.1 K/mm3 (0.0-0.4) 08/30/16 10:30 Baso # 0.0 K/mm3 (0.0-0.1) 08/30/16 10:30 Add Manual Diff Complete 08/29/16 17:40 Total Counted 100 08/29/16 17:40 Seg Neutrophils % 78.6 % (40.0-70.0) H 08/30/16 10:30 Seg Neuts % (Manual) 70.0 % (40.0-70.0) 08/29/16 17:40 Band Neutrophils % 17.0 % 08/29/16 17:40 Lymphocytes % (Manual) 10.0 % (13.4-35.0) L 08/29/16 17:40 Reactive Lymphs % (Man) 0 % 08/29/16 17:40 Monocytes % (Manual) 3.0 % (0.0-7.3) 08/29/16 17:40 Eosinophils % (Manual) 0 % (0.0-4.3) 08/29/16 17:40 Basophils % (Manual) 0 % (0.0-1.8) 08/29/16 17:40 Metamyelocytes % 0 % 08/29/16 17:40 Myelocytes % 0 % 08/29/16 17:40 Promyelocytes % 0 % 08/29/16 17:40 Blast Cells % 0 % 08/29/16 17:40 Nucleated RBC % 3.0 % (0.0-0.9) H 08/29/16 17:40 Seg Neutrophils # 8.7 K/mm3 (1.8-7.7) H 08/30/16 10:30 Seg Neutrophils # Man 7.1 K/mm3 (1.8-7.7) 08/29/16 17:40 Band Neutrophils # 1.7 K/mm3 08/29/16 17:40 Lymphocytes # (Manual) 1.0 K/mm3 (1.2-5.4) L 08/29/16 17:40 Abs React Lymphs (Man) 0.0 K/mm3 08/29/16 17:40 Monocytes # (Manual) 0.3 K/mm3 (0.0-0.8) 08/29/16 17:40 Eosinophils # (Manual) 0.0 K/mm3 (0.0-0.4) 08/29/16 17:40 Basophils # (Manual) 0.0 K/mm3 (0.0-0.1) 08/29/16 17:40 Metamyelocytes # 0.0 K/mm3 08/29/16 17:40 Myelocytes # 0.0 K/mm3 08/29/16 17:40 Promyelocytes # 0.0 K/mm3 08/29/16 17:40 Blast Cells # 0.0 K/mm3 08/29/16 17:40 WBC Morphology Not Reportable 08/29/16 17:40 Hypersegmented Neuts Not Reportable 08/29/16 17:40 Hyposegmented Neuts Not Reportable 08/29/16 17:40 Hypogranular Neuts Not Reportable 08/29/16 17:40 Smudge Cells Not Reportable 08/29/16 17:40 Toxic Granulation Not Reportable 08/29/16 17:40 Toxic Vacuolation Not Reportable 08/29/16 17:40 Dohle Bodies Not Reportable 08/29/16 17:40 Pel[place]-Huet Anomaly Not Reportable 08/29/16 17:40 Feli Rods Not Reportable 08/29/16 17:40 Platelet Estimate Consistent w auto 08/29/16 17:40 Clumped Platelets Not Reportable 08/29/16 17:40 Plt Clumps, EDTA Not Reportable 08/29/16 17:40 Large Platelets Not Reportable 08/29/16 17:40 Giant Platelets Not Reportable 08/29/16 17:40 Platelet Satelliting Not Reportable 08/29/16 17:40 Plt Morphology Comment Not Reportable 08/29/16 17:40 RBC Morphology Not Reportable 08/29/16 17:40 Dimorphic RBCs Not Reportable 08/29/16 17:40 Polychromasia 1+ 08/29/16 17:40 Hypochromasia Not Reportable 08/29/16 17:40 Poikilocytosis Not Reportable 08/29/16 17:40 Anisocytosis 1+ 08/29/16 17:40 Microcytosis Not Reportable 08/29/16 17:40 Macrocytosis Not Reportable 08/29/16 17:40 Spherocytes Not Reportable 08/29/16 17:40 Pappenheimer Bodies Not Reportable 08/29/16 17:40 Sickle Cells Not Reportable 08/29/16 17:40 Target Cells Not Reportable 08/29/16 17:40 Tear Drop Cells Not Reportable 08/29/16 17:40 Ovalocytes Not Reportable 08/29/16 17:40 Helmet Cells Not Reportable 08/29/16 17:40 [place] Bodies Not Reportable 08/29/16 17:40 [place] Rings Not Reportable 08/29/16 17:40 [place] Cells Not Reportable 08/29/16 17:40 Bite Cells Not Reportable 08/29/16 17:40 Crenated Cell Not Reportable 08/29/16 17:40 Elliptocytes Not Reportable 08/29/16 17:40 Acanthocytes (Spur) Not Reportable 08/29/16 17:40 Rouleaux Not Reportable 08/29/16 17:40 Hemoglobin C Crystals Not Reportable 08/29/16 17:40 Schistocytes Not Reportable 08/29/16 17:40 Malaria parasites Not Reportable 08/29/16 17:40 Manny Bodies Not Reportable 08/29/16 17:40 Hem Pathologist Commnt No 08/29/16 17:40 PT 16.8 Sec. (12.2-14.9) H 08/31/16 04:20 INR 1.37 (0.87-1.13) H 08/31/16 04:20 APTT 29.5 Sec. (24.2-36.6) 08/29/16 17:40 POC ABG pH 7.359 (7.35-7.45) 08/31/16 05:24 POC ABG pCO2 40.7 (35-45) 08/31/16 05:24 POC ABG pO2 142 (80-105) H 08/31/16 05:24 POC ABG HCO3 23.0 08/31/16 05:24 POC ABG Total CO2 24 08/31/16 05:24 POC ABG O2 Sat 99 08/31/16 05:24 POC ABG Base Excess -2 08/31/16 05:24 VBG pH 7.366 (7.320-7.420) 08/29/16 17:40 FiO2 60 % 08/31/16 05:24 Sodium 136 mmol/L (137-145) L 08/31/16 15:45 Potassium 4.3 mmol/L (3.6-5.0) 08/31/16 15:45 Chloride 101.4 mmol/L (98-107) 08/31/16 15:45 Carbon Dioxide 21 mmol/L (22-30) L 08/31/16 15:45 Anion Gap 18 mmol/L 08/31/16 15:45 BUN 9 mg/dL (7-17) 08/31/16 15:45 Creatinine 1.5 mg/dL (0.7-1.2) H 08/31/16 15:45 Estimated GFR 43 ml/min 08/31/16 15:45 BUN/Creatinine Ratio 6.00 % 08/31/16 15:45 Glucose 160 mg/dL (65-100) H 08/31/16 15:45 POC Glucose 123 (70-105) H 08/31/16 05:22 Lactic Acid 1.90 mmol/L (0.7-2.0) 08/31/16 04:20 Calcium 6.9 mg/dL (8.4-10.2) L 08/31/16 15:45 Phosphorus 3.60 mg/dL (2.5-4.5) 08/29/16 21:59 Magnesium 1.80 mg/dL (1.7-2.3) 08/29/16 21:59 Total Bilirubin 1.50 mg/dL (0.1-1.2) H 08/31/16 04:20 AST 131 units/L (5-40) H 08/31/16 04:20 ALT 50 units/L (7-56) 08/31/16 04:20 Alkaline Phosphatase 431 units/L (35-129) H 08/31/16 04:20 Ammonia 70.0 umol/L (25-60) H 08/31/16 04:20 Total Creatine Kinase 28 units/L (30-135) L 08/29/16 17:40 CK-MB (CK-2) < 1.0 ng/mL (0.0-4.0) 08/29/16 17:40 CK-MB (CK-2) Rel Index 3.5 (0-4) 08/29/16 17:40 Troponin T 0.109 ng/mL (0.00-0.029) H* D 08/31/16 15:45 C-Reactive Protein 10.20 mg/dL (0.00-1.30) H 08/30/16 22:20 NT-Pro-B Natriuret Pep 1712 pg/mL (0-900) H 08/29/16 17:40 Total Protein 6.2 g/dL (6.3-8.2) L 08/31/16 04:20 Albumin 1.2 g/dL (3.9-5) L 08/31/16 04:20 Albumin/Globulin Ratio 0.2 % 08/31/16 04:20 Prealbumin 0.120 g/L (0.200-0.400) L 08/29/16 21:59 Triglycerides 225 mg/dL (2-149) H 08/29/16 17:40 Cholesterol 130 mg/dL (50-199) 08/29/16 17:40 LDL Cholesterol Direct 82 mg/dL (50-130) 08/29/16 17:40 HDL Cholesterol 3 mg/dL (40-59) L 08/29/16 17:40 Cholesterol/HDL Ratio 43.33 % 08/29/16 17:40 Urine Color Yellow (Yellow) 08/31/16 15:37 Urine Turbidity Clear (Clear) 08/31/16 15:37 Urine pH 5.0 (5.0-7.0) 08/31/16 15:37 Ur Specific [place] 1.009 (1.003-1.030) 08/31/16 15:37 Urine Protein <15 mg/dl mg/dL (Negative) 08/31/16 15:37 Urine Glucose (UA) Neg mg/dL (Negative) 08/31/16 15:37 Urine Ketones Neg mg/dL (Negative) 08/31/16 15:37 Urine Blood Sm (Negative) 08/31/16 15:37 Urine Nitrite Neg (Negative) 08/31/16 15:37 Urine Bilirubin Neg (Negative) 08/31/16 15:37 Urine Urobilinogen < 2.0 mg/dL (<2.0) 08/31/16 15:37 Ur Leukocyte Esterase Sm (Negative) 08/31/16 15:37 Urine WBC (Auto) 3.0 /HPF (0.0-6.0) 08/31/16 15:37 Urine RBC (Auto) 1.0 /HPF (0.0-6.0) 08/31/16 15:37 U Epithel Cells (Auto) < 1.0 /HPF (0-13.0) 08/31/16 15:37 Urine Bacteria (Auto) 1+ /HPF (Negative) 08/31/16 15:37 Hyaline Casts 5 /LPF 08/31/16 15:37 Urine Mucus Few /HPF 08/31/16 15:37 Blood Type O POSITIVE 08/29/16 18:15 Antibody Screen TNR 08/29/16 18:15 PATRICK Antibody Screen Negative 08/29/16 18:15 Crossmatch See Detail 08/29/16 18:15
[2016-08-31] MEDS: LOVENOX SUB-Q SCH (22:03)
[2016-09-01] MEDS: LEVOPHED DRIP 4 MG/NS 250 ML 4 MG/250 ML BAG IV SCH ×2 (00:28→13:18)
[2016-09-01] MEDS: NOVOLOG SUB-Q SCH ×4 (00:29→17:54)
[2016-09-01] MEDS: DUONEB 0.5 MG-3 MG/3 ML SOLN IH SCH ×4 (03:56→19:33)
[2016-09-01 04:46] LABS: Mean Corpuscular HGB Conc 29 % (30-34); Mean Corpuscular Hemoglobin 27 pg (28-32); Mean Corpuscular Volume 94 fl (79-97); Platelet Count 252 K/mm3 (140-440); Red Blood Count 2.89 M/mm3 (3.65-5.03); White Blood Count 14.8 K/mm3 (4.5-11.0)
[2016-09-01 04:52] LABS: Hematocrit 27.2 % (30.3-42.9); Hemoglobin 7.8 gm/dl (10.1-14.3); Red Cell Distribution Width 24.4 % (13.2-15.2)
[2016-09-01 04:57] LABS: INR 1.51 (0.87-1.13)
[2016-09-01 05:01] LABS: Albumin 1.2 g/dL (3.9-5); Albumin/Globulin Ratio 0.2 %; BUN/Creatinine Ratio 5.62; Bilirubin,Total 1.3 mg/dL (0.1-1.2); Calcium 6.9 mg/dL (8.4-10.2); Chloride 101.6 mmol/L (98-107); Potassium 4.1 mmol/L (3.6-5.0); Total Protein 6.1 g/dL (6.3-8.2)
[2016-09-01] MEDS: LASIX IV SCH ×3 (05:29→20:33)
[2016-09-01] MEDS: ZOSYN/NS 4.5GM/100ML 4.5 GM/100 ML VIAL IV SCH ×3 (05:30→20:34)
[2016-09-01] MEDS: LEVEMIR SUB-Q SCH (07:36)
--- NOTE | 2016-09-01 07:59 | XRay Report ---
AP CHEST: HISTORY: Followup respiratory failure Lines and support devices remain in good position. Hazy opacity throughout the right lung is unchanged since yesterday's exam and probably represents atelectatic changes. Layering pleural effusion could also be considered. The left lung is clear. Heart size remains within normal limits.
--- NOTE | 2016-09-01 08:08 | Progress Note ---
Assessment and Plan - Patient Problems (1) RORY (acute kidney injury) Current Visit: No Status: Acute Plan to address problem: Acute Kidney Injury is hemodynamically mediated in the setting of hypotension / shock. Renal function is stable. Continue current treatment. (2) Shock Current Visit: Yes Status: Acute Plan to address problem: On Levophed. (3) Respiratory failure Current Visit: Yes Status: Acute Qualifiers: Chronicity: C Respiratory failure complication: R Plan to address problem: On vent. (4) Altered mental status Current Visit: Yes Status: Acute Qualifiers: Altered mental status type: unspecified Coma depth: C Coma timing: C Qualified Code(s): R41.82 - Altered mental status, unspecified Subjective Date of service: 09/01/16 Interval history: Patient remain on the vent. Objective - Vital Signs Vital signs: Vital Signs - 12hr 08/31/16 08/31/16 08/31/16 20:11 20:21 20:30 Pulse Rate 70 68 69 Pulse Rate [ Anterior Bilateral] Respiratory 18 16 16 Rate Respiratory Rate [Anterior Bilateral] Blood Pressure 106/46 99/46 97/46 O2 Sat by Pulse 100 100 100 Oximetry 08/31/16 08/31/16 08/31/16 20:41 20:51 21:00 Pulse Rate 69 69 70 Pulse Rate [ Anterior Bilateral] Respiratory 16 21 17 Rate Respiratory Rate [Anterior Bilateral] Blood Pressure 97/46 100/49 100/50 O2 Sat by Pulse 100 100 100 Oximetry 08/31/16 08/31/16 08/31/16 21:11 21:21 21:30 Pulse Rate 70 71 71 Pulse Rate [ Anterior Bilateral] Respiratory 20 20 19 Rate Respiratory Rate [Anterior Bilateral] Blood Pressure 100/50 110/47 103/49 O2 Sat by Pulse 100 100 98 Oximetry 08/31/16 08/31/16 08/31/16 21:41 21:51 22:00 Pulse Rate 71 70 70 Pulse Rate [ Anterior Bilateral] Respiratory 18 20 18 Rate Respiratory Rate [Anterior Bilateral] Blood Pressure 103/49 103/51 98/52 O2 Sat by Pulse 100 100 99 Oximetry 08/31/16 08/31/16 08/31/16 22:11 22:21 22:30 Pulse Rate 71 70 72 Pulse Rate [ Anterior Bilateral] Respiratory 16 16 16 Rate Respiratory Rate [Anterior Bilateral] Blood Pressure 98/52 113/56 110/47 O2 Sat by Pulse 100 100 100 Oximetry 08/31/16 08/31/16 08/31/16 22:41 22:51 23:00 Pulse Rate 71 71 70 Pulse Rate [ Anterior Bilateral] Respiratory 18 16 17 Rate Respiratory Rate [Anterior Bilateral] Blood Pressure 110/47 117/54 115/53 O2 Sat by Pulse 100 100 100 Oximetry 08/31/16 08/31/16 08/31/16 23:11 23:21 23:30 Pulse Rate 71 70 71 Pulse Rate [ Anterior Bilateral] Respiratory 17 17 16 Rate Respiratory Rate [Anterior Bilateral] Blood Pressure 115/53 108/46 105/56 O2 Sat by Pulse 100 100 100 Oximetry 08/31/16 08/31/16 09/01/16 23:41 23:51 00:00 Pulse Rate 72 72 69 Pulse Rate [ Anterior Bilateral] Respiratory 16 17 17 Rate Respiratory Rate [Anterior Bilateral] Blood Pressure 105/56 114/53 100/49 O2 Sat by Pulse 100 100 99 Oximetry 09/01/16 09/01/16 09/01/16 00:11 00:18 00:21 Pulse Rate 70 69 70 Pulse Rate [ Anterior Bilateral] Respiratory 18 18 Rate Respiratory Rate [Anterior Bilateral] Blood Pressure 100/49 100/49 107/52 O2 Sat by Pulse 100 100 100 Oximetry 09/01/16 09/01/16 09/01/16 00:23 00:30 00:41 Pulse Rate 69 69 68 Pulse Rate [ Anterior Bilateral] Respiratory 17 17 30 H Rate Respiratory Rate [Anterior Bilateral] Blood Pressure 107/52 118/59 118/59 O2 Sat by Pulse 98 100 100 Oximetry 09/01/16 09/01/16 09/01/16 00:51 01:00 01:11 Pulse Rate 67 Pulse Rate [ Anterior Bilateral] Respiratory 16 Rate Respiratory Rate [Anterior Bilateral] Blood Pressure 118/59 91/63 91/63 O2 Sat by Pulse 71 L 83 L 100 Oximetry 09/01/16 09/01/16 09/01/16 01:21 01:30 01:41 Pulse Rate 69 70 69 Pulse Rate [ Anterior Bilateral] Respiratory 16 15 14 Rate Respiratory Rate [Anterior Bilateral] Blood Pressure 106/61 111/60 118/59 O2 Sat by Pulse 100 100 100 Oximetry 09/01/16 09/01/16 09/01/16 01:51 02:00 02:11 Pulse Rate 67 67 70 Pulse Rate [ Anterior Bilateral] Respiratory 15 15 16 Rate Respiratory Rate [Anterior Bilateral] Blood Pressure 116/53 118/59 118/59 O2 Sat by Pulse 100 99 100 Oximetry 09/01/16 09/01/16 09/01/16 02:21 02:30 02:41 Pulse Rate 67 69 69 Pulse Rate [ Anterior Bilateral] Respiratory 16 15 16 Rate Respiratory Rate [Anterior Bilateral] Blood Pressure 112/60 113/63 118/59 O2 Sat by Pulse 100 97 100 Oximetry 09/01/16 09/01/16 09/01/16 02:51 03:00 03:11 Pulse Rate 68 67 67 Pulse Rate [ Anterior Bilateral] Respiratory 14 16 16 Rate Respiratory Rate [Anterior Bilateral] Blood Pressure 115/60 125/59 125/59 O2 Sat by Pulse 100 100 99 Oximetry 09/01/16 09/01/16 09/01/16 03:21 03:30 03:41 Pulse Rate 66 66 68 Pulse Rate [ Anterior Bilateral] Respiratory 16 16 16 Rate Respiratory Rate [Anterior Bilateral] Blood Pressure 119/59 115/63 115/63 O2 Sat by Pulse 100 98 100 Oximetry 09/01/16 09/01/16 09/01/16 03:51 03:57 04:00 Pulse Rate 66 65 Pulse Rate [ 76 Anterior Bilateral] Respiratory 16 14 Rate Respiratory 18 Rate [Anterior Bilateral] Blood Pressure 122/53 111/56 O2 Sat by Pulse 100 99 Oximetry 09/01/16 09/01/16 09/01/16 04:11 04:21 04:30 Pulse Rate 65 64 66 Pulse Rate [ Anterior Bilateral] Respiratory 15 16 16 Rate Respiratory Rate [Anterior Bilateral] Blood Pressure 111/56 113/58 117/54 O2 Sat by Pulse 100 100 100 Oximetry 09/01/16 09/01/16 09/01/16 04:41 04:51 05:00 Pulse Rate 67 66 65 Pulse Rate [ Anterior Bilateral] Respiratory 12 15 16 Rate Respiratory Rate [Anterior Bilateral] Blood Pressure 117/54 105/59 114/54 O2 Sat by Pulse 98 100 100 Oximetry 09/01/16 09/01/16 09/01/16 05:11 05:21 05:30 Pulse Rate 65 65 66 Pulse Rate [ Anterior Bilateral] Respiratory 16 16 11 L Rate Respiratory Rate [Anterior Bilateral] Blood Pressure 114/54 108/57 116/64 O2 Sat by Pulse 100 100 95 Oximetry 09/01/16 09/01/16 05:41 05:51 Pulse Rate 65 64 Pulse Rate [ Anterior Bilateral] Respiratory 16 16 Rate Respiratory Rate [Anterior Bilateral] Blood Pressure 116/64 104/46 O2 Sat by Pulse 99 100 Oximetry - General Appearance General appearance: well-developed, well-nourished, appears stated age, obese, intubated (FiO2 40%) EENT: ATNC, PERRL Neck: supple Respiratory: Present: Clear to Ascultation Cardiology: regular, S1S2, no murmurs Gastrointestinal: normoactive bowel sounds, no tenderness, obese Integumentary: no rash Neurologic: other (not responding) Musculoskeletal: other (2+ edema of both LEs noted) - Lab 09/01/16 04:00 09/01/16 04:00 Most recent lab results Calcium 6.9 mg/dL (8.4-10.2) L 09/01/16 04:00 Phosphorus 3.60 mg/dL (2.5-4.5) 08/29/16 21:59 Magnesium 1.80 mg/dL (1.7-2.3) 08/29/16 21:59
--- NOTE | 2016-09-01 09:55 | Progress Note ---
Assessment and Plan - Patient Problems (1) Respiratory failure Current Visit: Yes Status: Acute Qualifiers: Chronicity: C Respiratory failure complication: R Plan to address problem: Currently on mechanical ventilatory support AC-VC 16/500/PEEP8/60% ABG 7.36/41/142/23/-2.Continue with MVS VAP bundle addressed Wean FIO2 for O2 sats>92% HOB>40, aspiration precautions VTE prophylaxis- enoxaparin Stress ulcer prophylaxis- Pantoprazole Sedation/Analgesia- not requiring any sedation Lung protective strategies Start SBTs in the morning Continue with enteric feedings, monitor accucheck, glycemic control- keep blood glucose<180mg/dl (2) Shock Current Visit: Yes Status: Acute Plan to address problem: Treated as septic shock secondary to HCAP - Wean vasopressor support for MAP>65 Continue with antibiotics for now. Follow up cultures and de-escalate/re-evaluate on going need for antibiotics (3) Acute on chronic diastolic (congestive) heart failure Current Visit: No Status: Acute Plan to address problem: Documented EF 55% Increased diuretic while monitoring renal function and electrolyte profile closely Positive balance 600cc in the last 24 hours. Monitor urine output, electrolyte profile and electrolytes while on diuretics (4) Altered mental status Current Visit: Yes Status: Acute Qualifiers: Altered mental status type: unspecified Coma depth: C Coma timing: C Qualified Code(s): R41.82 - Altered mental status, unspecified Plan to address problem: EEG pending Suspect this is metabolic/toxic encephalopathy but need to r/o non convulsive seizure activity (5) Morbid obesity Current Visit: Yes Status: Acute Qualifiers: Obesity type: unspecified obesity type Qualified Code(s): E66.01 - Morbid ( severe) obesity due to excess calories (6) Anemia Current Visit: Yes Status: Acute Qualifiers: Anemia type: unspecified type Iron deficiency anemia type: I Vitamin B12 deficiency anemia type: V Folate deficiency anemia type: F Bone marrow failure anemia type: B Hemolytic anemia type: H Other causes of anemia: O Qualified Code(s): D64.9 - Anemia, unspecified (7) Hyponatremia Current Visit: Yes Status: Acute Plan to address problem: Resolved. Continue to monitor closely and trend Subjective Date of service: 09/01/16 Interval history: No acute overnight events. at the bedside. Remains unresponsive. Sedation has been discontinued. On empiric antibiotics for possible HCAP. Remains orally intubated. Seen and examined. Vitals, labs, medications, chart and imaging reviewed. Discussed care at interdisciplinary rounds Unable to obtain CTScan of the brain as she is over 400lbs and the CTscanner is unable to accommodate her weight Objective - Exam Narrative Exam: GEN: Critically ill, morbid obese BMI 81.6, intubated HEENT: Pupils are pinpoint and reactive, ET tube in place NECK: SUPPLE, NO THYROMEGALY, NO JVD, NO LAD CVS: regular irregular NORMAL S1S2 LUNGS/CHEST: TA B, NORMAL CHEST EXPANSION B, GOOD AIR ENTRY B ABD: SOFT, NONDISTENDED GBS, NO REBOUND OR GUARDING MSK: Lower extremity edema to thighs NEURO: CN 2-12 GROSSLY INTACT, doesn't follow commands Vital Signs - 12hr 08/31/16 08/31/16 08/31/16 22:00 22:11 22:21 Temperature Pulse Rate 70 71 70 Pulse Rate [ Anterior Bilateral] Respiratory 18 16 16 Rate Respiratory Rate [Anterior Bilateral] Blood Pressure 98/52 98/52 113/56 O2 Sat by Pulse 99 100 100 Oximetry 08/31/16 08/31/16 08/31/16 22:30 22:41 22:51 Temperature Pulse Rate 72 71 71 Pulse Rate [ Anterior Bilateral] Respiratory 16 18 16 Rate Respiratory Rate [Anterior Bilateral] Blood Pressure 110/47 110/47 117/54 O2 Sat by Pulse 100 100 100 Oximetry 08/31/16 08/31/16 08/31/16 23:00 23:11 23:21 Temperature Pulse Rate 70 71 70 Pulse Rate [ Anterior Bilateral] Respiratory 17 17 17 Rate Respiratory Rate [Anterior Bilateral] Blood Pressure 115/53 115/53 108/46 O2 Sat by Pulse 100 100 100 Oximetry 08/31/16 08/31/16 08/31/16 23:30 23:41 23:51 Temperature Pulse Rate 71 72 72 Pulse Rate [ Anterior Bilateral] Respiratory 16 16 17 Rate Respiratory Rate [Anterior Bilateral] Blood Pressure 105/56 105/56 114/53 O2 Sat by Pulse 100 100 100 Oximetry 09/01/16 09/01/16 09/01/16 00:00 00:11 00:18 Temperature Pulse Rate 69 70 69 Pulse Rate [ Anterior Bilateral] Respiratory 17 18 Rate Respiratory Rate [Anterior Bilateral] Blood Pressure 100/49 100/49 100/49 O2 Sat by Pulse 99 100 100 Oximetry 09/01/16 09/01/16 09/01/16 00:21 00:23 00:30 Temperature Pulse Rate 70 69 69 Pulse Rate [ Anterior Bilateral] Respiratory 18 17 17 Rate Respiratory Rate [Anterior Bilateral] Blood Pressure 107/52 107/52 118/59 O2 Sat by Pulse 100 98 100 Oximetry 09/01/16 09/01/16 09/01/16 00:41 00:51 01:00 Temperature Pulse Rate 68 Pulse Rate [ Anterior Bilateral] Respiratory 30 H Rate Respiratory Rate [Anterior Bilateral] Blood Pressure 118/59 118/59 91/63 O2 Sat by Pulse 100 71 L 83 L Oximetry 09/01/16 09/01/16 09/01/16 01:11 01:21 01:30 Temperature Pulse Rate 67 69 70 Pulse Rate [ Anterior Bilateral] Respiratory 16 16 15 Rate Respiratory Rate [Anterior Bilateral] Blood Pressure 91/63 106/61 111/60 O2 Sat by Pulse 100 100 100 Oximetry 09/01/16 09/01/16 09/01/16 01:41 01:51 02:00 Temperature Pulse Rate 69 67 67 Pulse Rate [ Anterior Bilateral] Respiratory 14 15 15 Rate Respiratory Rate [Anterior Bilateral] Blood Pressure 118/59 116/53 118/59 O2 Sat by Pulse 100 100 99 Oximetry 09/01/16 09/01/16 09/01/16 02:11 02:21 02:30 Temperature Pulse Rate 70 67 69 Pulse Rate [ Anterior Bilateral] Respiratory 16 16 15 Rate Respiratory Rate [Anterior Bilateral] Blood Pressure 118/59 112/60 113/63 O2 Sat by Pulse 100 100 97 Oximetry 09/01/16 09/01/16 09/01/16 02:41 02:51 03:00 Temperature Pulse Rate 69 68 67 Pulse Rate [ Anterior Bilateral] Respiratory 16 14 16 Rate Respiratory Rate [Anterior Bilateral] Blood Pressure 118/59 115/60 125/59 O2 Sat by Pulse 100 100 100 Oximetry 09/01/16 09/01/16 09/01/16 03:11 03:21 03:30 Temperature Pulse Rate 67 66 66 Pulse Rate [ Anterior Bilateral] Respiratory 16 16 16 Rate Respiratory Rate [Anterior Bilateral] Blood Pressure 125/59 119/59 115/63 O2 Sat by Pulse 99 100 98 Oximetry 09/01/16 09/01/16 09/01/16 03:41 03:51 03:57 Temperature Pulse Rate 68 66 Pulse Rate [ 76 Anterior Bilateral] Respiratory 16 16 Rate Respiratory 18 Rate [Anterior Bilateral] Blood Pressure 115/63 122/53 O2 Sat by Pulse 100 100 Oximetry 09/01/16 09/01/16 09/01/16 04:00 04:11 04:21 Temperature Pulse Rate 65 65 64 Pulse Rate [ Anterior Bilateral] Respiratory 14 15 16 Rate Respiratory Rate [Anterior Bilateral] Blood Pressure 111/56 111/56 113/58 O2 Sat by Pulse 99 100 100 Oximetry 09/01/16 09/01/16 09/01/16 04:30 04:41 04:51 Temperature Pulse Rate 66 67 66 Pulse Rate [ Anterior Bilateral] Respiratory 16 12 15 Rate Respiratory Rate [Anterior Bilateral] Blood Pressure 117/54 117/54 105/59 O2 Sat by Pulse 100 98 100 Oximetry 09/01/16 09/01/16 09/01/16 05:00 05:11 05:21 Temperature Pulse Rate 65 65 65 Pulse Rate [ Anterior Bilateral] Respiratory 16 16 16 Rate Respiratory Rate [Anterior Bilateral] Blood Pressure 114/54 114/54 108/57 O2 Sat by Pulse 100 100 100 Oximetry 09/01/16 09/01/16 09/01/16 05:30 05:41 05:51 Temperature Pulse Rate 66 65 64 Pulse Rate [ Anterior Bilateral] Respiratory 11 L 16 16 Rate Respiratory Rate [Anterior Bilateral] Blood Pressure 116/64 116/64 104/46 O2 Sat by Pulse 95 99 100 Oximetry 09/01/16 09/01/16 09/01/16 06:00 06:11 06:21 Temperature Pulse Rate 66 66 64 Pulse Rate [ Anterior Bilateral] Respiratory 16 16 16 Rate Respiratory Rate [Anterior Bilateral] Blood Pressure 102/52 102/52 101/53 O2 Sat by Pulse 100 100 100 Oximetry 09/01/16 09/01/16 09/01/16 06:30 06:41 06:51 Temperature Pulse Rate 66 65 66 Pulse Rate [ Anterior Bilateral] Respiratory 15 16 16 Rate Respiratory Rate [Anterior Bilateral] Blood Pressure 110/54 110/54 109/54 O2 Sat by Pulse 100 100 100 Oximetry 09/01/16 09/01/16 09/01/16 07:00 07:11 07:21 Temperature Pulse Rate 65 64 67 Pulse Rate [ Anterior Bilateral] Respiratory 16 16 16 Rate Respiratory Rate [Anterior Bilateral] Blood Pressure 104/54 104/54 113/57 O2 Sat by Pulse 100 100 99 Oximetry 09/01/16 09/01/16 09/01/16 07:30 07:41 07:51 Temperature Pulse Rate 67 66 67 Pulse Rate [ Anterior Bilateral] Respiratory 15 16 16 Rate Respiratory Rate [Anterior Bilateral] Blood Pressure 112/58 112/58 108/50 O2 Sat by Pulse 100 100 Oximetry 09/01/16 09/01/16 09/01/16 08:00 08:11 08:21 Temperature 98.4 F Pulse Rate 66 63 66 Pulse Rate [ Anterior Bilateral] Respiratory 16 16 16 Rate Respiratory Rate [Anterior Bilateral] Blood Pressure 110/52 110/52 113/57 O2 Sat by Pulse 100 100 100 Oximetry 09/01/16 09/01/16 09/01/16 08:30 08:41 08:49 Temperature Pulse Rate 65 67 66 Pulse Rate [ Anterior Bilateral] Respiratory 16 16 Rate Respiratory Rate [Anterior Bilateral] Blood Pressure 105/57 105/57 98/52 O2 Sat by Pulse 100 98 100 Oximetry CBC and BMP: 09/01/16 04:00 09/01/16 04:00 ABG, PT/INR, D-dimer: ABG POC ABG pH 7.359 (7.35-7.45) 08/31/16 05:24 POC ABG pCO2 40.7 (35-45) 08/31/16 05:24 POC ABG pO2 142 (80-105) H 08/31/16 05:24 POC ABG HCO3 23.0 08/31/16 05:24 POC ABG Total CO2 24 08/31/16 05:24 POC ABG O2 Sat 99 08/31/16 05:24 PT/INR, D-dimer PT 18.2 Sec. (12.2-14.9) H 09/01/16 04:00 INR 1.51 (0.87-1.13) H 09/01/16 04:00 Abnormal lab findings: Abnormal Labs 08/29/16 08/30/16 08/30/16 21:59 00:16 05:39 WBC RBC Hgb Hct MCH MCHC RDW Seg Neutrophils % Seg Neutrophils # PT INR POC ABG pH POC ABG pO2 Sodium Carbon Dioxide Creatinine Glucose POC Glucose 106 H 128 H Lactic Acid Calcium Total Bilirubin AST Alkaline Phosphatase Ammonia Troponin T C-Reactive Protein Total Protein Albumin Prealbumin 0.120 L 0508/30/16 08/30/16 10:30 10:30 11:12 WBC 11.1 H RBC 3.16 L Hgb 8.7 L Hct 29.9 L MCH MCHC 29 L RDW 25.0 H Seg Neutrophils % 78.6 H Seg Neutrophils # 8.7 H PT INR POC ABG pH POC ABG pO2 Sodium 135 L Carbon Dioxide 20 L Creatinine 1.5 H Glucose 148 H POC Glucose 142 H Lactic Acid Calcium 7.2 L Total Bilirubin 1.30 H AST 143 H Alkaline Phosphatase 392 H Ammonia Troponin T C-Reactive Protein Total Protein 6.1 L Albumin 1.2 L Prealbumin 08/30/16 08/30/16 08/30/16 17:41 18:03 18:18 WBC RBC Hgb Hct MCH MCHC RDW Seg Neutrophils % Seg Neutrophils # PT INR POC ABG pH 7.316 L POC ABG pO2 44 L 59 L Sodium Carbon Dioxide Creatinine Glucose POC Glucose 150 H Lactic Acid Calcium Total Bilirubin AST Alkaline Phosphatase Ammonia Troponin T C-Reactive Protein Total Protein Albumin Prealbumin 08/30/16 08/30/16 08/31/16 22:20 22:20 00:11 WBC RBC Hgb Hct MCH MCHC RDW Seg Neutrophils % Seg Neutrophils # PT INR POC ABG pH POC ABG pO2 Sodium Carbon Dioxide Creatinine Glucose POC Glucose 133 H Lactic Acid 2.30 H* Calcium Total Bilirubin AST Alkaline Phosphatase Ammonia Troponin T C-Reactive Protein 10.20 H Total Protein Albumin Prealbumin 08/31/16 08/31/16 08/31/16 04:20 04:20 04:20 WBC 18.3 H RBC 3.19 L Hgb 8.8 L Hct 30.0 L MCH 27 L MCHC 29 L RDW 23.9 H Seg Neutrophils % Seg Neutrophils # PT 16.8 H INR 1.37 H POC ABG pH POC ABG pO2 Sodium 136 L Carbon Dioxide 19 L Creatinine 1.5 H Glucose 125 H POC Glucose Lactic Acid Calcium 7.0 L Total Bilirubin 1.50 H AST 131 H Alkaline Phosphatase 431 H Ammonia Troponin T C-Reactive Protein Total Protein 6.2 L Albumin 1.2 L Prealbumin 08/31/16 08/31/16 08/31/16 04:20 05:22 05:24 WBC RBC Hgb Hct MCH MCHC RDW Seg Neutrophils % Seg Neutrophils # PT INR POC ABG pH POC ABG pO2 142 H Sodium Carbon Dioxide Creatinine Glucose POC Glucose 123 H Lactic Acid Calcium Total Bilirubin AST Alkaline Phosphatase Ammonia 70.0 H Troponin T C-Reactive Protein Total Protein Albumin Prealbumin 08/31/16 08/31/16 08/31/16 12:10 15:45 17:38 WBC RBC Hgb Hct MCH MCHC RDW Seg Neutrophils % Seg Neutrophils # PT INR POC ABG pH POC ABG pO2 Sodium 136 L Carbon Dioxide 21 L Creatinine 1.5 H Glucose 160 H POC Glucose 147 H 151 H Lactic Acid Calcium 6.9 L Total Bilirubin AST Alkaline Phosphatase Ammonia Troponin T 0.109 H* D C-Reactive Protein Total Protein Albumin Prealbumin 09/01/16 09/01/16 09/01/16 00:09 04:00 04:00 WBC 14.8 H RBC 2.89 L Hgb 7.8 L Hct 27.2 L MCH 27 L MCHC 29 L RDW 24.4 H Seg Neutrophils % Seg Neutrophils # PT 18.2 H INR 1.51 H POC ABG pH POC ABG pO2 Sodium Carbon Dioxide Creatinine Glucose POC Glucose 192 H Lactic Acid Calcium Total Bilirubin AST Alkaline Phosphatase Ammonia Troponin T C-Reactive Protein Total Protein Albumin Prealbumin 09/01/16 09/01/16 04:00 05:28 WBC RBC Hgb Hct MCH MCHC RDW Seg Neutrophils % Seg Neutrophils # PT INR POC ABG pH POC ABG pO2 Sodium Carbon Dioxide 20 L Creatinine 1.6 H Glucose 183 H POC Glucose 189 H Lactic Acid Calcium 6.9 L Total Bilirubin 1.30 H AST 138 H Alkaline Phosphatase 520 H Ammonia Troponin T C-Reactive Protein Total Protein 6.1 L Albumin 1.2 L Prealbumin Allied health notes reviewed: RT ED Critical Care Note - Critical Care Note Total Time (mins): 35 Critical care time in (mins) excluding proc time.: 35 Critical care attestation.: If time is entered above; I have spent that time in minutes in the direct care of this critically ill patient, excluding procedure time.
--- NOTE | 2016-09-01 10:22 | Progress Note ---
Assessment and Plan Altered mental status Acute respiratory failure intubated on the vent Lactic acidosis Anemia requiring blood transfusion Obesity Decubitus ulcer Sepsis Conservative cardiac management. Subjective Date of service: 09/01/16 Interval history: Patient remains intubated. Objective Vital Signs Temp Pulse Pulse Resp Resp BP Pulse Ox 09/01/16 08:49 66 98/52 100 09/01/16 08:41 67 16 105/57 98 09/01/16 08:30 65 16 105/57 100 09/01/16 08:21 66 16 113/57 100 09/01/16 08:11 63 16 110/52 100 09/01/16 08:00 98.4 F 66 16 110/52 100 09/01/16 07:51 67 16 108/50 100 09/01/16 07:41 66 16 112/58 100 09/01/16 07:30 67 15 112/58 09/01/16 07:21 67 16 113/57 99 09/01/16 07:11 64 16 104/54 100 09/01/16 07:00 65 16 104/54 100 09/01/16 06:51 66 16 109/54 100 09/01/16 06:41 65 16 110/54 100 09/01/16 06:30 66 15 110/54 100 09/01/16 06:21 64 16 101/53 100 09/01/16 06:11 66 16 102/52 100 09/01/16 06:00 66 16 102/52 100 09/01/16 05:51 64 16 104/46 100 09/01/16 05:41 65 16 116/64 99 09/01/16 05:30 66 11 L 116/64 95 09/01/16 05:21 65 16 108/57 100 09/01/16 05:11 65 16 114/54 100 09/01/16 05:00 65 16 114/54 100 09/01/16 04:51 66 15 105/59 100 09/01/16 04:41 67 12 117/54 98 09/01/16 04:30 66 16 117/54 100 09/01/16 04:21 64 16 113/58 100 09/01/16 04:11 65 15 111/56 100 09/01/16 04:00 65 14 111/56 99 09/01/16 03:57 76 18 09/01/16 03:51 66 16 122/53 100 05/ 03:41 68 16 115/63 100 0517 03:30 66 16 115/63 98 0517 03:21 66 16 119/59 100 0517 03:11 67 16 125/59 99 0517 03:00 67 16 125/59 100 0517 02:51 68 14 115/60 100 05 02:41 69 16 118/59 100 05 02:30 69 15 113/63 97 0517 02:21 67 16 112/60 100 05 02:11 70 16 118/59 100 05 02:00 67 15 118/59 99 05 01:51 67 15 116/53 100 05 01:41 69 14 118/59 100 05 01:30 70 15 111/60 100 05 01:21 69 16 106/61 100 05 01:11 67 16 91/63 100 05 01:00 91/63 83 L 05 00:51 118/59 71 L 05 00:41 68 30 H 118/59 100 05 00:30 69 17 118/59 100 05 00:23 69 17 107/52 98 05 00:21 70 18 107/52 100 05 00:18 69 100/49 100 0517 00:11 70 18 100/49 100 05 00:00 69 17 100/49 99 0517 23:51 72 17 114/53 100 05/17 23:41 72 16 105/56 100 05/17 23:30 71 16 105/56 100 05/22/17 23:21 70 17 108/46 100 05/22/17 23:11 71 17 115/53 100 05/17 23:00 70 17 115/53 100 0522/17 22:51 71 16 117/54 100 05/22/17 22:41 71 18 110/47 100 05/22/17 22:30 72 16 110/47 100 05/22/17 22:21 70 16 113/56 100 0522/17 22:11 71 16 98/52 100 05/22/17 22:00 70 18 98/52 99 05/22/17 21:51 70 20 103/51 100 05/22/17 21:41 71 18 103/49 100 05/22/17 21:30 71 19 103/49 98 05/22/17 21:21 71 20 110/47 100 05/22/17 21:11 70 20 100/50 100 05/22/17 21:00 70 17 100/50 100 05/22/17 20:51 69 21 100/49 100 05/22/17 20:41 69 16 97/46 100 05/22/17 20:30 69 16 97/46 100 05/22/17 20:21 68 16 99/46 100 05/22/17 20:11 70 18 106/46 100 05//17 20:00 68 17 106/46 100 05//17 19:51 70 18 113/56 100 05//17 19:41 69 17 96/47 100 05/17 19:33 74 18 05/17 19:30 67 15 96/47 100 05//17 19:29 68 104/46 100 05//17 19:21 69 17 104/46 100 05//17 19:11 70 16 99/50 100 05//17 19:00 70 16 99/50 99 05//17 18:51 70 16 109/51 100 05//17 18:41 70 16 104/42 100 05//17 18:30 71 17 104/42 100 05//17 18:21 69 16 109/51 100 05//17 18:11 69 15 107/45 100 05//17 18:00 71 17 107/45 100 05//17 17:52 70 111/49 100 05/22/17 17:51 71 16 111/49 100 05/22/17 17:48 70 98/45 100 05/22/17 17:41 70 16 98/45 100 05/22/17 17:30 72 17 98/45 100 05//17 17:21 69 16 103/52 100 05/22/17 17:11 70 16 104/47 100 05/22/17 17:00 71 16 104/47 100 05//17 16:51 69 16 100/46 100 05/22/17 16:41 68 16 95/42 100 08/31/16 16:31 71 15 08/31/16 16:25 71 8 L 08/31/16 16:05 72 16 08/31/16 15:51 71 16 96/52 100 08/31/16 15:41 69 16 87/52 100 08/31/16 15:30 70 16 87/52 79 L 08/31/16 15:21 71 16 95/50 100 08/31/16 15:11 68 16 93/45 100 08/31/16 15:03 69 17 08/31/16 15:00 70 17 93/45 100 08/31/16 14:59 70 95/50 100 08/31/16 14:51 69 16 95/50 100 08/31/16 14:41 68 16 105/59 100 08/31/16 14:30 68 16 105/59 94 08/31/16 14:21 68 16 112/57 100 08/31/16 14:11 69 16 118/61 100 08/31/16 14:00 68 16 118/61 100 08/31/16 13:51 68 16 121/63 100 08/31/16 13:41 69 16 118/62 100 08/31/16 13:30 69 16 118/62 99 08/31/16 13:21 68 16 125/65 100 08/31/16 13:11 68 16 117/64 100 08/31/16 13:00 70 16 117/64 99 08/31/16 12:51 70 16 111/58 100 08/31/16 12:41 69 16 117/59 100 08/31/16 12:30 70 16 117/59 100 08/31/16 12:21 71 16 118/59 100 08/31/16 12:11 70 16 114/64 100 08/31/16 12:02 97.4 F L 08/31/16 12:00 70 16 114/64 99 08/31/16 11:51 71 16 117/61 98 08/31/16 11:41 80 17 107/62 95 08/31/16 11:30 76 20 107/62 98 08/31/16 11:28 72 101/53 100 05 11:21 74 17 101/53 100 08/31/16 11:11 74 16 98/71 100 05/22/17 11:01 74 18 106/51 99 08/31/16 10:50 73 16 98/71 100 08/31/16 10:41 72 16 93/52 100 08/31/16 10:30 74 16 70/46 99 - Physical Examination General: Other (intubated on the vent) Cardiac: Positive: Reg Rate and Rhythm - Labs and Meds Cardiac Enzymes 09/01/16 Range/Units 04:00 AST 138 H (5-40) units/L Coagulation 09/01/16 Range/Units 04:00 PT 18.2 H (12.2-14.9) Sec. INR 1.51 H (0.87-1.13) CBC 09/01/16 Range/Units 04:00 WBC 14.8 H (4.5-11.0) K/mm3 RBC 2.89 L (3.65-5.03) M/mm3 Hgb 7.8 L (10.1-14.3) gm/dl Hct 27.2 L (30.3-42.9) % Plt Count 252 (140-440) K/mm3 Comprehensive Metabolic Panel 08/31/16 09/01/16 Range/Units 15:45 04:00 Sodium 136 L 137 (137-145) mmol/L Potassium 4.3 4.1 (3.6-5.0) mmol/L Chloride 101.4 101.6 (98-107) mmol/L Carbon Dioxide 21 L 20 L (22-30) mmol/L BUN 9 9 (7-17) mg/dL Creatinine 1.5 H 1.6 H (0.7-1.2) mg/dL Glucose 160 H 183 H (65-100) mg/dL Calcium 6.9 L 6.9 L (8.4-10.2) mg/dL AST 138 H (5-40) units/L ALT 53 (7-56) units/L Alkaline Phosphatase 520 H (35-129) units/L Total Protein 6.1 L (6.3-8.2) g/dL Albumin 1.2 L (3.9-5) g/dL - Allied health notes Allied health notes reviewed: RT
[2016-09-01] MEDS: LEVAQUIN 750MG/150ML 750 MG/150 ML BAG IV SCH (10:37)
[2016-09-01] MEDS: PROTONIX PO SCH (10:37)
[2016-09-01] MEDS: POTASSIUM CHLORIDE PO SCH ×2 (10:37→22:42)
[2016-09-01] MEDS: ZAROXOLYN PO SCH (12:45)
--- NOTE | 2016-09-01 16:11 | Progress Note ---
Assessment and Plan Assessment and plan: Patient is a 61-year-old morbidly obese woman with a past medical history of congestive heart failure, severe protein calorie malnutrition with BMI of 81.6, functional quadriplegia, type 2 diabetes mellitus, hypertension, multiple skin breakdown between legs and thighs who presented to the hospital via EMS with AMS. 2D echocardiogram with ejection fraction of 50-55%. During the past admission patient was recommended for placement but refused. On presentation patient was felt to be unable to maintain airway and intubated the ER. Acute toxic metabolic encephalopathy Acute on chronic diastolic congestive heart failure: Cardiology is following, diuresis Acute on chronic respiratory failure, intubated Septic shock on Levaphed: Weaning attempts Hypercoagulable state Severe anemia s/p blood transfusion: monitor cbc closely Mitral stenosis Paroxysmal atrial fibrillation Non-ST elevated MD: Cardiology is following, Acute on chronic kidney disease likely secondary to vasomotor nephropathy-POA Transaminitis-elevated alkaline phosphatase and AST: continue to monitor Severe protein calorie malnutrition albumin 1.2 Morbid obesity BMI 81.6 Mulitple PRESSURE ULCERS-POA: consulted wound care New issues: Levaphed down to 3 mcg Unable to get CT head due to weight issues Patient is currently not on sedation. Pupils are pinpoint so prior sedative medications are probably still active in her system Family to bring in old records History Interval history: Patient seen and examined. Follow up on respiratory failure. Patient still intubated. Overnight uneventful. No cp, sob, n/v or severe headaches. Imaging, old records, testing, labs, nursing notes reviewed. Hospitalist Physical - Physical exam Narrative exam: GEN: Critically ill, morbid obese BMI 81.6, intubated HEENT: Pupils are pinpoint and reactive, ET tube in place NECK: SUPPLE, NO THYROMEGALY, NO JVD, NO LAD CVS: regular irregular NORMAL S1S2 LUNGS/CHEST: TA B, NORMAL CHEST EXPANSION B, GOOD AIR ENTRY B ABD: SOFT, NONDISTENDED GBS, NO REBOUND OR GUARDING MSK: Spontaneous movement of extremities NEURO: CN 2-12 GROSSLY INTACT, doesn't follow commands PSY: Confused - Constitutional Vitals: Temp Pulse Resp BP Pulse Ox 98.6 F 64 17 73/42 100 09/01/16 12:00 09/01/16 14:51 09/01/16 14:51 09/01/16 14:51 09/01/16 14:51 General appearance: Present: other (intubated on the vent) Results - Labs CBC & Chem 7: 09/01/16 04:00 09/01/16 04:00 Labs: Laboratory Last Values WBC 14.8 K/mm3 (4.5-11.0) H 09/01/16 04:00 RBC 2.89 M/mm3 (3.65-5.03) L 09/01/16 04:00 Hgb 7.8 gm/dl (10.1-14.3) L 09/01/16 04:00 Hct 27.2 % (30.3-42.9) L 09/01/16 04:00 MCV 94 fl (79-97) 09/01/16 04:00 MCH 27 pg (28-32) L 09/01/16 04:00 MCHC 29 % (30-34) L 09/01/16 04:00 RDW 24.4 % (13.2-15.2) H 09/01/16 04:00 Plt Count 252 K/mm3 (140-440) 09/01/16 04:00 Lymph % (Auto) 15.6 % (13.4-35.0) 08/30/16 10:30 Edwards % (Auto) 5.1 % (0.0-7.3) 08/30/16 10:30 Eos % (Auto) 0.6 % (0.0-4.3) 08/30/16 10:30 Baso % (Auto) 0.1 % (0.0-1.8) 08/30/16 10:30 Lymph # 1.7 K/mm3 (1.2-5.4) 08/30/16 10:30 Edwards # 0.6 K/mm3 (0.0-0.8) 08/30/16 10:30 Eos # 0.1 K/mm3 (0.0-0.4) 08/30/16 10:30 Baso # 0.0 K/mm3 (0.0-0.1) 08/30/16 10:30 Add Manual Diff Complete 08/29/16 17:40 Total Counted 100 08/29/16 17:40 Seg Neutrophils % 78.6 % (40.0-70.0) H 08/30/16 10:30 Seg Neuts % (Manual) 70.0 % (40.0-70.0) 08/29/16 17:40 Band Neutrophils % 17.0 % 08/29/16 17:40 Lymphocytes % (Manual) 10.0 % (13.4-35.0) L 08/29/16 17:40 Reactive Lymphs % (Man) 0 % 08/29/16 17:40 Monocytes % (Manual) 3.0 % (0.0-7.3) 08/29/16 17:40 Eosinophils % (Manual) 0 % (0.0-4.3) 08/29/16 17:40 Basophils % (Manual) 0 % (0.0-1.8) 08/29/16 17:40 Metamyelocytes % 0 % 08/29/16 17:40 Myelocytes % 0 % 08/29/16 17:40 Promyelocytes % 0 % 08/29/16 17:40 Blast Cells % 0 % 08/29/16 17:40 Nucleated RBC % 3.0 % (0.0-0.9) H 08/29/16 17:40 Seg Neutrophils # 8.7 K/mm3 (1.8-7.7) H 08/30/16 10:30 Seg Neutrophils # Man 7.1 K/mm3 (1.8-7.7) 08/29/16 17:40 Band Neutrophils # 1.7 K/mm3 08/29/16 17:40 Lymphocytes # (Manual) 1.0 K/mm3 (1.2-5.4) L 08/29/16 17:40 Abs React Lymphs (Man) 0.0 K/mm3 08/29/16 17:40 Monocytes # (Manual) 0.3 K/mm3 (0.0-0.8) 08/29/16 17:40 Eosinophils # (Manual) 0.0 K/mm3 (0.0-0.4) 08/29/16 17:40 Basophils # (Manual) 0.0 K/mm3 (0.0-0.1) 08/29/16 17:40 Metamyelocytes # 0.0 K/mm3 08/29/16 17:40 Myelocytes # 0.0 K/mm3 08/29/16 17:40 Promyelocytes # 0.0 K/mm3 08/29/16 17:40 Blast Cells # 0.0 K/mm3 08/29/16 17:40 WBC Morphology Not Reportable 08/29/16 17:40 Hypersegmented Neuts Not Reportable 08/29/16 17:40 Hyposegmented Neuts Not Reportable 08/29/16 17:40 Hypogranular Neuts Not Reportable 08/29/16 17:40 Smudge Cells Not Reportable 08/29/16 17:40 Toxic Granulation Not Reportable 08/29/16 17:40 Toxic Vacuolation Not Reportable 08/29/16 17:40 Dohle Bodies Not Reportable 08/29/16 17:40 Pelger-Huet Anomaly Not Reportable 08/29/16 17:40 Feli Rods Not Reportable 08/29/16 17:40 Platelet Estimate Consistent w auto 08/29/16 17:40 Clumped Platelets Not Reportable 08/29/16 17:40 Plt Clumps, EDTA Not Reportable 08/29/16 17:40 Large Platelets Not Reportable 08/29/16 17:40 Giant Platelets Not Reportable 08/29/16 17:40 Platelet Satelliting Not Reportable 08/29/16 17:40 Plt Morphology Comment Not Reportable 08/29/16 17:40 RBC Morphology Not Reportable 08/29/16 17:40 Dimorphic RBCs Not Reportable 08/29/16 17:40 Polychromasia 1+ 08/29/16 17:40 Hypochromasia Not Reportable 08/29/16 17:40 Poikilocytosis Not Reportable 08/29/16 17:40 Anisocytosis 1+ 08/29/16 17:40 Microcytosis Not Reportable 08/29/16 17:40 Macrocytosis Not Reportable 08/29/16 17:40 Spherocytes Not Reportable 08/29/16 17:40 Pappenheimer Bodies Not Reportable 08/29/16 17:40 Sickle Cells Not Reportable 08/29/16 17:40 Target Cells Not Reportable 08/29/16 17:40 Tear Drop Cells Not Reportable 08/29/16 17:40 Ovalocytes Not Reportable 08/29/16 17:40 Helmet Cells Not Reportable 08/29/16 17:40 [place] Bodies Not Reportable 08/29/16 17:40 [place] Rings Not Reportable 08/29/16 17:40 [place] Cells Not Reportable 08/29/16 17:40 Bite Cells Not Reportable 08/29/16 17:40 Crenated Cell Not Reportable 08/29/16 17:40 Elliptocytes Not Reportable 08/29/16 17:40 Acanthocytes (Spur) Not Reportable 08/29/16 17:40 Rouleaux Not Reportable 08/29/16 17:40 Hemoglobin C Crystals Not Reportable 08/29/16 17:40 Schistocytes Not Reportable 08/29/16 17:40 Malaria parasites Not Reportable 08/29/16 17:40 Manny Bodies Not Reportable 08/29/16 17:40 Hem Pathologist Commnt No 08/29/16 17:40 PT 18.2 Sec. (12.2-14.9) H 09/01/16 04:00 INR 1.51 (0.87-1.13) H 09/01/16 04:00 APTT 29.5 Sec. (24.2-36.6) 08/29/16 17:40 POC ABG pH 7.359 (7.35-7.45) 08/31/16 05:24 POC ABG pCO2 40.7 (35-45) 08/31/16 05:24 POC ABG pO2 142 (80-105) H 08/31/16 05:24 POC ABG HCO3 23.0 08/31/16 05:24 POC ABG Total CO2 24 08/31/16 05:24 POC ABG O2 Sat 99 08/31/16 05:24 POC ABG Base Excess -2 08/31/16 05:24 VBG pH 7.366 (7.320-7.420) 08/29/16 17:40 FiO2 60 % 08/31/16 05:24 Sodium 137 mmol/L (137-145) 09/01/16 04:00 Potassium 4.1 mmol/L (3.6-5.0) 09/01/16 04:00 Chloride 101.6 mmol/L (98-107) 09/01/16 04:00 Carbon Dioxide 20 mmol/L (22-30) L 09/01/16 04:00 Anion Gap 20 mmol/L 09/01/16 04:00 BUN 9 mg/dL (7-17) 09/01/16 04:00 Creatinine 1.6 mg/dL (0.7-1.2) H 09/01/16 04:00 Estimated GFR 40 ml/min 09/01/16 04:00 BUN/Creatinine Ratio 5.62 % 09/01/16 04:00 Glucose 183 mg/dL (65-100) H 09/01/16 04:00 POC Glucose 189 (70-105) H 09/01/16 05:28 Lactic Acid 1.90 mmol/L (0.7-2.0) 08/31/16 04:20 Calcium 6.9 mg/dL (8.4-10.2) L 09/01/16 04:00 Phosphorus 3.60 mg/dL (2.5-4.5) 08/29/16 21:59 Magnesium 1.80 mg/dL (1.7-2.3) 08/29/16 21:59 Total Bilirubin 1.30 mg/dL (0.1-1.2) H 09/01/16 04:00 AST 138 units/L (5-40) H 09/01/16 04:00 ALT 53 units/L (7-56) 09/01/16 04:00 Alkaline Phosphatase 520 units/L (35-129) H 09/01/16 04:00 Ammonia 70.0 umol/L (25-60) H 08/31/16 04:20 Total Creatine Kinase 28 units/L (30-135) L 08/29/16 17:40 CK-MB (CK-2) < 1.0 ng/mL (0.0-4.0) 08/29/16 17:40 CK-MB (CK-2) Rel Index 3.5 (0-4) 08/29/16 17:40 Troponin T 0.109 ng/mL (0.00-0.029) H* D 08/31/16 15:45 C-Reactive Protein 10.20 mg/dL (0.00-1.30) H 08/30/16 22:20 NT-Pro-B Natriuret Pep 1712 pg/mL (0-900) H 08/29/16 17:40 Total Protein 6.1 g/dL (6.3-8.2) L 09/01/16 04:00 Albumin 1.2 g/dL (3.9-5) L 09/01/16 04:00 Albumin/Globulin Ratio 0.2 % 09/01/16 04:00 Prealbumin 0.120 g/L (0.200-0.400) L 08/29/16 21:59 Triglycerides 225 mg/dL (2-149) H 08/29/16 17:40 Cholesterol 130 mg/dL (50-199) 08/29/16 17:40 LDL Cholesterol Direct 82 mg/dL (50-130) 08/29/16 17:40 HDL Cholesterol 3 mg/dL (40-59) L 08/29/16 17:40 Cholesterol/HDL Ratio 43.33 % 08/29/16 17:40 Urine Color Yellow (Yellow) 08/31/16 15:37 Urine Turbidity Clear (Clear) 08/31/16 15:37 Urine pH 5.0 (5.0-7.0) 08/31/16 15:37 Ur Specific [place] 1.009 (1.003-1.030) 08/31/16 15:37 Urine Protein <15 mg/dl mg/dL (Negative) 08/31/16 15:37 Urine Glucose (UA) Neg mg/dL (Negative) 08/31/16 15:37 Urine Ketones Neg mg/dL (Negative) 08/31/16 15:37 Urine Blood Sm (Negative) 08/31/16 15:37 Urine Nitrite Neg (Negative) 08/31/16 15:37 Urine Bilirubin Neg (Negative) 08/31/16 15:37 Urine Urobilinogen < 2.0 mg/dL (<2.0) 08/31/16 15:37 Ur Leukocyte Esterase Sm (Negative) 08/31/16 15:37 Urine WBC (Auto) 3.0 /HPF (0.0-6.0) 08/31/16 15:37 Urine RBC (Auto) 1.0 /HPF (0.0-6.0) 08/31/16 15:37 U Epithel Cells (Auto) < 1.0 /HPF (0-13.0) 08/31/16 15:37 Urine Bacteria (Auto) 1+ /HPF (Negative) 08/31/16 15:37 Hyaline Casts 5 /LPF 08/31/16 15:37 Urine Mucus Few /HPF 08/31/16 15:37 Blood Type O POSITIVE 08/29/16 18:15 Antibody Screen TNR 08/29/16 18:15 PATRICK Antibody Screen Negative 08/29/16 18:15 Crossmatch See Detail 08/29/16 18:15
[2016-09-01] MEDS ORDERED: NACL 0.9% 250ML 250 ML ONE (20:40)
[2016-09-01] MEDS: LOVENOX SUB-Q SCH (22:41)
[2016-09-02] MEDS: NOVOLOG SUB-Q SCH ×4 (00:07→17:32)
[2016-09-02] MEDS: DUONEB 0.5 MG-3 MG/3 ML SOLN IH SCH ×4 (02:03→19:19)
[2016-09-02] MEDS: LASIX IV SCH ×2 (04:30→20:46)
[2016-09-02] MEDS: ZOSYN/NS 4.5GM/100ML 4.5 GM/100 ML VIAL IV SCH ×3 (04:30→21:18)
[2016-09-02 05:50] LABS: Hematocrit 23.4 % (30.3-42.9); Hemoglobin 7.1 gm/dl (10.1-14.3); Mean Corpuscular HGB Conc 30 % (30-34); Mean Corpuscular Hemoglobin 28 pg (28-32); Mean Corpuscular Volume 91 fl (79-97); Platelet Count 224 K/mm3 (140-440); Red Blood Count 2.57 M/mm3 (3.65-5.03); White Blood Count 12.3 K/mm3 (4.5-11.0)
[2016-09-02 05:50] LABS: ISTAT Base Excess -3; ISTAT HCO3 22.7; ISTAT PCO2 39.8 (35-45); ISTAT PH 7.364 (7.35-7.45); ISTAT PO2 92 (80-105); ISTAT SO2 97; ISTAT TCO2 24
[2016-09-02 05:51] LABS: Red Cell Distribution Width 23.9 % (13.2-15.2)
[2016-09-02 05:57] LABS: BUN/Creatinine Ratio 6.42; Chloride 102.3 mmol/L (98-107); Potassium 3.9 mmol/L (3.6-5.0)
[2016-09-02 06:03] LABS: INR 1.49 (0.87-1.13)
[2016-09-02 06:30] LABS: Anisocytosis 1+; Basophils % (Manual) 0 % (0.0-1.8); Blastocytes % (Manual) 0 %; Diff Status Complete; Eosinophils % (Manual) 0 % (0.0-4.3); Macrocytosis 1+; Platelet Estimate Consistent w Auto; Polychromasia Rare
[2016-09-02] MEDS: LEVEMIR SUB-Q SCH (08:29)
--- NOTE | 2016-09-02 08:30 | XRay Report ---
AP CHEST :09/02/16 CLINICAL: Intubated.Follow up respiratory failure. COMPARISON:09/01/16 FINDINGS: The endotracheal tube is in satisfactory position. The feeding tube is satisfactory. A left such venous catheter tip remains in the distal SVC. Continued diffuse opacification of the right hemithorax and relatively clear left hemithorax. The heart is normal size. Mild central vascular congestion. No pneumothorax. IMPRESSION: No change. Suspect right pleural effusion.
--- NOTE | 2016-09-02 08:38 | Progress Note ---
Assessment and Plan - Patient Problems (1) RORY (acute kidney injury) Current Visit: No Status: Acute Plan to address problem: Acute Kidney Injury is hemodynamically mediated in the setting of hypotension / shock. Renal function is stable. Continue current treatment. (2) Shock Current Visit: Yes Status: Acute Plan to address problem: On Levophed. (3) Respiratory failure Current Visit: Yes Status: Acute Qualifiers: Chronicity: C Respiratory failure complication: R Plan to address problem: On vent. (4) Altered mental status Current Visit: Yes Status: Acute Qualifiers: Altered mental status type: unspecified Coma depth: C Coma timing: C Qualified Code(s): R41.82 - Altered mental status, unspecified Subjective Date of service: 09/02/16 Interval history: Patient remain on the vent. Objective - Vital Signs Vital signs: Vital Signs - 12hr 09/01/16 09/01/16 09/01/16 20:41 20:51 21:00 Temperature Pulse Rate 65 66 68 Pulse Rate [ Bilateral Throughout] Respiratory 17 13 19 Rate Respiratory Rate [Bilateral Throughout] Blood Pressure 102/54 113/58 115/60 O2 Sat by Pulse 100 99 100 Oximetry 09/01/16 09/01/16 09/01/16 21:11 21:21 21:30 Temperature Pulse Rate 67 66 64 Pulse Rate [ Bilateral Throughout] Respiratory 11 L 12 18 Rate Respiratory Rate [Bilateral Throughout] Blood Pressure 115/60 116/55 119/54 O2 Sat by Pulse 100 100 100 Oximetry 09/01/16 09/01/16 09/01/16 21:41 21:51 22:00 Temperature Pulse Rate 67 65 68 Pulse Rate [ Bilateral Throughout] Respiratory 19 16 16 Rate Respiratory Rate [Bilateral Throughout] Blood Pressure 119/54 122/60 114/65 O2 Sat by Pulse 98 99 100 Oximetry 09/01/16 09/01/16 09/01/16 22:11 22:21 22:30 Temperature Pulse Rate 67 66 66 Pulse Rate [ Bilateral Throughout] Respiratory 21 17 14 Rate Respiratory Rate [Bilateral Throughout] Blood Pressure 114/65 122/56 120/51 O2 Sat by Pulse 99 100 100 Oximetry 09/01/16 09/01/16 09/01/16 22:41 22:51 23:00 Temperature Pulse Rate 68 65 68 Pulse Rate [ Bilateral Throughout] Respiratory 16 16 22 Rate Respiratory Rate [Bilateral Throughout] Blood Pressure 120/51 115/57 105/57 O2 Sat by Pulse 100 100 100 Oximetry 09/01/16 09/01/16 09/01/16 23:11 23:21 23:30 Temperature Pulse Rate 70 69 71 Pulse Rate [ Bilateral Throughout] Respiratory 20 22 14 Rate Respiratory Rate [Bilateral Throughout] Blood Pressure 115/57 112/57 112/57 O2 Sat by Pulse 100 100 99 Oximetry 09/01/16 09/01/16 09/01/16 23:31 23:33 23:41 Temperature Pulse Rate 70 69 70 Pulse Rate [ Bilateral Throughout] Respiratory 16 18 Rate Respiratory Rate [Bilateral Throughout] Blood Pressure 112/57 105/57 112/57 O2 Sat by Pulse 99 100 100 Oximetry 09/01/16 09/01/16 09/01/16 23:44 23:51 23:52 Temperature Pulse Rate 71 71 69 Pulse Rate [ Bilateral Throughout] Respiratory 15 19 16 Rate Respiratory Rate [Bilateral Throughout] Blood Pressure 112/57 121/53 112/57 O2 Sat by Pulse 99 100 100 Oximetry 09/02/16 09/02/16 09/02/16 00:00 00:01 00:10 Temperature 97.8 F Pulse Rate 72 68 70 Pulse Rate [ Bilateral Throughout] Respiratory 17 17 16 Rate Respiratory Rate [Bilateral Throughout] Blood Pressure 117/55 117/55 117/55 O2 Sat by Pulse 99 99 100 Oximetry 09/02/16 09/02/16 09/02/16 00:21 00:30 00:41 Temperature Pulse Rate 74 74 75 Pulse Rate [ Bilateral Throughout] Respiratory 9 L 17 19 Rate Respiratory Rate [Bilateral Throughout] Blood Pressure 117/59 116/56 117/59 O2 Sat by Pulse 99 98 100 Oximetry 09/02/16 09/02/16 09/02/16 00:51 01:00 01:11 Temperature Pulse Rate 72 76 73 Pulse Rate [ Bilateral Throughout] Respiratory 17 16 17 Rate Respiratory Rate [Bilateral Throughout] Blood Pressure 113/58 119/57 119/57 O2 Sat by Pulse 100 98 99 Oximetry 09/02/16 09/02/16 09/02/16 01:21 01:30 01:41 Temperature Pulse Rate 75 72 70 Pulse Rate [ Bilateral Throughout] Respiratory 22 16 20 Rate Respiratory Rate [Bilateral Throughout] Blood Pressure 112/56 119/60 112/56 O2 Sat by Pulse 99 99 100 Oximetry 09/02/16 09/02/16 09/02/16 01:51 02:00 02:03 Temperature Pulse Rate 79 78 Pulse Rate [ 72 Bilateral Throughout] Respiratory 20 16 Rate Respiratory 17 Rate [Bilateral Throughout] Blood Pressure 115/62 122/58 O2 Sat by Pulse 99 98 Oximetry 09/02/16 09/02/16 09/02/16 02:11 02:18 02:21 Temperature Pulse Rate 68 76 Pulse Rate [ 74 Bilateral Throughout] Respiratory 15 12 Rate Respiratory 17 Rate [Bilateral Throughout] Blood Pressure 122/58 109/38 O2 Sat by Pulse 96 93 Oximetry 09/02/16 09/02/16 09/02/16 02:30 02:41 02:51 Temperature Pulse Rate 75 75 78 Pulse Rate [ Bilateral Throughout] Respiratory 22 19 24 Rate Respiratory Rate [Bilateral Throughout] Blood Pressure 114/62 109/38 118/67 O2 Sat by Pulse 96 97 96 Oximetry 09/02/16 09/02/16 09/02/16 03:00 03:11 03:21 Temperature Pulse Rate 78 78 77 Pulse Rate [ Bilateral Throughout] Respiratory 22 22 24 Rate Respiratory Rate [Bilateral Throughout] Blood Pressure 125/64 125/64 120/68 O2 Sat by Pulse 97 98 98 Oximetry 09/02/16 09/02/16 09/02/16 03:30 03:41 03:51 Temperature Pulse Rate 80 80 77 Pulse Rate [ Bilateral Throughout] Respiratory 20 20 17 Rate Respiratory Rate [Bilateral Throughout] Blood Pressure 128/70 128/70 125/65 O2 Sat by Pulse 98 98 99 Oximetry 09/02/16 09/02/16 09/02/16 04:00 04:11 04:17 Temperature Pulse Rate 81 77 76 Pulse Rate [ Bilateral Throughout] Respiratory 19 18 Rate Respiratory Rate [Bilateral Throughout] Blood Pressure 121/65 121/65 121/65 O2 Sat by Pulse 99 99 99 Oximetry 09/02/16 09/02/16 09/02/16 04:21 04:30 04:41 Temperature Pulse Rate 79 81 78 Pulse Rate [ Bilateral Throughout] Respiratory 20 24 18 Rate Respiratory Rate [Bilateral Throughout] Blood Pressure 105/57 96/51 96/51 O2 Sat by Pulse 99 93 97 Oximetry 09/02/16 09/02/16 09/02/16 04:51 05:00 05:11 Temperature 98.0 F Pulse Rate 76 73 75 Pulse Rate [ Bilateral Throughout] Respiratory 20 20 18 Rate Respiratory Rate [Bilateral Throughout] Blood Pressure 111/62 117/59 117/59 O2 Sat by Pulse 97 97 97 Oximetry 09/02/16 09/02/16 09/02/16 05:21 05:30 05:41 Temperature Pulse Rate 73 73 75 Pulse Rate [ Bilateral Throughout] Respiratory 19 19 16 Rate Respiratory Rate [Bilateral Throughout] Blood Pressure 116/62 109/59 109/59 O2 Sat by Pulse 97 97 97 Oximetry 09/02/16 09/02/16 09/02/16 05:51 06:00 06:11 Temperature Pulse Rate 70 71 68 Pulse Rate [ Bilateral Throughout] Respiratory 19 16 16 Rate Respiratory Rate [Bilateral Throughout] Blood Pressure 107/61 100/63 100/63 O2 Sat by Pulse 97 97 98 Oximetry 09/02/16 09/02/16 09/02/16 06:21 06:30 06:41 Temperature Pulse Rate 70 70 72 Pulse Rate [ Bilateral Throughout] Respiratory 16 16 16 Rate Respiratory Rate [Bilateral Throughout] Blood Pressure 110/62 103/61 103/61 O2 Sat by Pulse 98 99 97 Oximetry 09/02/16 09/02/16 09/02/16 06:51 07:00 07:11 Temperature Pulse Rate 70 70 67 Pulse Rate [ Bilateral Throughout] Respiratory 16 16 18 Rate Respiratory Rate [Bilateral Throughout] Blood Pressure 110/62 112/61 112/61 O2 Sat by Pulse 98 97 99 Oximetry 09/02/16 09/02/16 09/02/16 07:21 07:25 07:30 Temperature Pulse Rate 69 69 71 Pulse Rate [ Bilateral Throughout] Respiratory 16 16 Rate Respiratory Rate [Bilateral Throughout] Blood Pressure 118/61 118/61 123/59 O2 Sat by Pulse 98 99 99 Oximetry 09/02/16 09/02/16 09/02/16 07:38 07:41 07:51 Temperature Pulse Rate 70 65 Pulse Rate [ 70 Bilateral Throughout] Respiratory 17 16 Rate Respiratory 18 Rate [Bilateral Throughout] Blood Pressure 123/59 110/60 O2 Sat by Pulse 99 99 Oximetry 09/02/16 09/02/16 09/02/16 08:00 08:11 08:22 Temperature 98 F Pulse Rate 71 69 Pulse Rate [ 73 Bilateral Throughout] Respiratory 18 17 Rate Respiratory 16 Rate [Bilateral Throughout] Blood Pressure 102/60 102/60 O2 Sat by Pulse 98 97 Oximetry - General Appearance General appearance: well-developed, well-nourished, appears stated age, obese, intubated (FiO2 30%) EENT: ATNC, PERRL Neck: supple Respiratory: Present: Clear to Ascultation Cardiology: regular, S1S2, no murmurs Gastrointestinal: no normoactive bowel sounds, no tenderness, obese Integumentary: no rash Neurologic: other (arousable) Musculoskeletal: other (2+ edema of both LEs noted) - Lab 09/02/16 05:00 09/02/16 05:00 Most recent lab results Calcium 7.0 mg/dL (8.4-10.2) L 09/02/16 05:00 Phosphorus 3.60 mg/dL (2.5-4.5) 08/29/16 21:59 Magnesium 1.80 mg/dL (1.7-2.3) 08/29/16 21:59
[2016-09-02] MEDS: LEVAQUIN 750MG/150ML 750 MG/150 ML BAG IV SCH (09:08)
[2016-09-02] MEDS: POTASSIUM CHLORIDE PO SCH ×2 (09:08→21:19)
[2016-09-02] MEDS: PROTONIX PO SCH (09:09)
--- NOTE | 2016-09-02 10:04 | Progress Note ---
Assessment and Plan - Patient Problems (1) Respiratory failure Current Visit: Yes Status: Acute Qualifiers: Chronicity: C Respiratory failure complication: R Plan to address problem: Currently on mechanical ventilatory support AC-VC 16/500/PEEP8/60% ABG 7.36/41/142/23/-2.Continue with MVS VAP bundle addressed Wean FIO2 for O2 sats>92% HOB>40, aspiration precautions VTE prophylaxis- enoxaparin Stress ulcer prophylaxis- Pantoprazole Sedation/Analgesia- not requiring any sedation Lung protective strategies Start SBTs in the morning Continue with enteric feedings, monitor accucheck, glycemic control- keep blood glucose<180mg/dl Decrease PEEP to 5, and continue to wean FIO2 (2) Shock Current Visit: Yes Status: Acute Plan to address problem: Treated as septic shock secondary to HCAP - Wean vasopressor support for MAP>65 Continue with antibiotics for now. Follow up cultures and de-escalate/re-evaluate on going need for antibiotics On steroid therapy for possible CPD with AE (3) Acute on chronic diastolic (congestive) heart failure Current Visit: No Status: Acute Plan to address problem: Documented EF 55% Increased diuretic while monitoring renal function and electrolyte profile closely Positive balance in the last 24 hours. Monitor urine output, electrolyte profile and electrolytes while on diuretics (4) Altered mental status Current Visit: Yes Status: Acute Qualifiers: Altered mental status type: unspecified Coma depth: C Coma timing: C Qualified Code(s): R41.82 - Altered mental status, unspecified Plan to address problem: Suspect this is metabolic/toxic encephalopathy but need to r/o non convulsive seizure activity (5) Morbid obesity Current Visit: Yes Status: Acute Qualifiers: Obesity type: unspecified obesity type Qualified Code(s): E66.01 - Morbid ( severe) obesity due to excess calories (6) Anemia Current Visit: Yes Status: Acute Qualifiers: Anemia type: unspecified type Iron deficiency anemia type: I Vitamin B12 deficiency anemia type: V Folate deficiency anemia type: F Bone marrow failure anemia type: B Hemolytic anemia type: H Other causes of anemia: O Qualified Code(s): D64.9 - Anemia, unspecified Plan to address problem: Start IV iron therapies with supplements. As per admission documentation, the patient elects not to be transfused (7) Hyponatremia Current Visit: Yes Status: Acute Plan to address problem: Resolved. Continue to monitor closely and trend (8) Decubitus ulcers Onset Date: Unknown Current Visit: No Status: Acute Qualifiers: Pressure ulcer location: P Pressure ulcer stage: P Laterality: L Plan to address problem: Present on admission. Wound care and off loading Subjective Date of service: 09/02/16 Interval history: No acute overnight events. at the bedside- he states that he is the boyfriend and they live together. Remains unresponsive. Sedation has been discontinued. On empiric antibiotics for possible HCAP. Remains orally intubated. Seen and examined. Vitals, labs, medications, chart and imaging reviewed. Discussed care at interdisciplinary rounds Objective - Exam Narrative Exam: GEN: Critically ill, morbid obese BMI 81.6, intubated HEENT: Pupils are pinpoint and reactive, ET tube in place NECK: SUPPLE, NO THYROMEGALY, NO JVD, NO LAD CVS: regular irregular NORMAL S1S2 LUNGS/CHEST: TA B, NORMAL CHEST EXPANSION B, GOOD AIR ENTRY B ABD: SOFT, NONDISTENDED GBS, NO REBOUND OR GUARDING MSK: Spontaneous movement of extremities NEURO: Doesn't follow commands, spontaneous eye opening Extremities- Bilateral lower extremity edema Vital Signs - 12hr 09/01/16 09/01/16 09/01/16 22:11 22:21 22:30 Temperature Pulse Rate 67 66 66 Pulse Rate [ Bilateral Throughout] Respiratory 21 17 14 Rate Respiratory Rate [Bilateral Throughout] Blood Pressure 114/65 122/56 120/51 O2 Sat by Pulse 99 100 100 Oximetry 09/01/16 09/01/16 09/01/16 22:41 22:51 23:00 Temperature Pulse Rate 68 65 68 Pulse Rate [ Bilateral Throughout] Respiratory 16 16 22 Rate Respiratory Rate [Bilateral Throughout] Blood Pressure 120/51 115/57 105/57 O2 Sat by Pulse 100 100 100 Oximetry 09/01/16 09/01/16 09/01/16 23:11 23:21 23:30 Temperature Pulse Rate 70 69 71 Pulse Rate [ Bilateral Throughout] Respiratory 20 22 14 Rate Respiratory Rate [Bilateral Throughout] Blood Pressure 115/57 112/57 112/57 O2 Sat by Pulse 100 100 99 Oximetry 09/01/16 09/01/16 09/01/16 23:31 23:33 23:41 Temperature Pulse Rate 70 69 70 Pulse Rate [ Bilateral Throughout] Respiratory 16 18 Rate Respiratory Rate [Bilateral Throughout] Blood Pressure 112/57 105/57 112/57 O2 Sat by Pulse 99 100 100 Oximetry 09/01/16 09/01/16 09/01/16 23:44 23:51 23:52 Temperature Pulse Rate 71 71 69 Pulse Rate [ Bilateral Throughout] Respiratory 15 19 16 Rate Respiratory Rate [Bilateral Throughout] Blood Pressure 112/57 121/53 112/57 O2 Sat by Pulse 99 100 100 Oximetry 09/02/16 09/02/16 09/02/16 00:00 00:01 00:10 Temperature 97.8 F Pulse Rate 72 68 70 Pulse Rate [ Bilateral Throughout] Respiratory 17 17 16 Rate Respiratory Rate [Bilateral Throughout] Blood Pressure 117/55 117/55 117/55 O2 Sat by Pulse 99 99 100 Oximetry 09/02/16 09/02/16 09/02/16 00:21 00:30 00:41 Temperature Pulse Rate 74 74 75 Pulse Rate [ Bilateral Throughout] Respiratory 9 L 17 19 Rate Respiratory Rate [Bilateral Throughout] Blood Pressure 117/59 116/56 117/59 O2 Sat by Pulse 99 98 100 Oximetry 09/02/16 09/02/16 09/02/16 00:51 01:00 01:11 Temperature Pulse Rate 72 76 73 Pulse Rate [ Bilateral Throughout] Respiratory 17 16 17 Rate Respiratory Rate [Bilateral Throughout] Blood Pressure 113/58 119/57 119/57 O2 Sat by Pulse 100 98 99 Oximetry 09/02/16 09/02/16 09/02/16 01:21 01:30 01:41 Temperature Pulse Rate 75 72 70 Pulse Rate [ Bilateral Throughout] Respiratory 22 16 20 Rate Respiratory Rate [Bilateral Throughout] Blood Pressure 112/56 119/60 112/56 O2 Sat by Pulse 99 99 100 Oximetry 09/02/16 09/02/16 09/02/16 01:51 02:00 02:03 Temperature Pulse Rate 79 78 Pulse Rate [ 72 Bilateral Throughout] Respiratory 20 16 Rate Respiratory 17 Rate [Bilateral Throughout] Blood Pressure 115/62 122/58 O2 Sat by Pulse 99 98 Oximetry 09/02/16 09/02/16 09/02/16 02:11 02:18 02:21 Temperature Pulse Rate 68 76 Pulse Rate [ 74 Bilateral Throughout] Respiratory 15 12 Rate Respiratory 17 Rate [Bilateral Throughout] Blood Pressure 122/58 109/38 O2 Sat by Pulse 96 93 Oximetry 09/02/16 09/02/16 09/02/16 02:30 02:41 02:51 Temperature Pulse Rate 75 75 78 Pulse Rate [ Bilateral Throughout] Respiratory 22 19 24 Rate Respiratory Rate [Bilateral Throughout] Blood Pressure 114/62 109/38 118/67 O2 Sat by Pulse 96 97 96 Oximetry 09/02/16 09/02/16 09/02/16 03:00 03:11 03:21 Temperature Pulse Rate 78 78 77 Pulse Rate [ Bilateral Throughout] Respiratory 22 22 24 Rate Respiratory Rate [Bilateral Throughout] Blood Pressure 125/64 125/64 120/68 O2 Sat by Pulse 97 98 98 Oximetry 09/02/16 09/02/16 09/02/16 03:30 03:41 03:51 Temperature Pulse Rate 80 80 77 Pulse Rate [ Bilateral Throughout] Respiratory 20 20 17 Rate Respiratory Rate [Bilateral Throughout] Blood Pressure 128/70 128/70 125/65 O2 Sat by Pulse 98 98 99 Oximetry 09/02/16 09/02/16 09/02/16 04:00 04:11 04:17 Temperature Pulse Rate 81 77 76 Pulse Rate [ Bilateral Throughout] Respiratory 19 18 Rate Respiratory Rate [Bilateral Throughout] Blood Pressure 121/65 121/65 121/65 O2 Sat by Pulse 99 99 99 Oximetry 09/02/16 09/02/16 09/02/16 04:21 04:30 04:41 Temperature Pulse Rate 79 81 78 Pulse Rate [ Bilateral Throughout] Respiratory 20 24 18 Rate Respiratory Rate [Bilateral Throughout] Blood Pressure 105/57 96/51 96/51 O2 Sat by Pulse 99 93 97 Oximetry 09/02/16 09/02/16 09/02/16 04:51 05:00 05:11 Temperature 98.0 F Pulse Rate 76 73 75 Pulse Rate [ Bilateral Throughout] Respiratory 20 20 18 Rate Respiratory Rate [Bilateral Throughout] Blood Pressure 111/62 117/59 117/59 O2 Sat by Pulse 97 97 97 Oximetry 09/02/16 09/02/16 09/02/16 05:21 05:30 05:41 Temperature Pulse Rate 73 73 75 Pulse Rate [ Bilateral Throughout] Respiratory 19 19 16 Rate Respiratory Rate [Bilateral Throughout] Blood Pressure 116/62 109/59 109/59 O2 Sat by Pulse 97 97 97 Oximetry 09/02/16 09/02/16 09/02/16 05:51 06:00 06:11 Temperature Pulse Rate 70 71 68 Pulse Rate [ Bilateral Throughout] Respiratory 19 16 16 Rate Respiratory Rate [Bilateral Throughout] Blood Pressure 107/61 100/63 100/63 O2 Sat by Pulse 97 97 98 Oximetry 09/02/16 09/02/16 09/02/16 06:21 06:30 06:41 Temperature Pulse Rate 70 70 72 Pulse Rate [ Bilateral Throughout] Respiratory 16 16 16 Rate Respiratory Rate [Bilateral Throughout] Blood Pressure 110/62 103/61 103/61 O2 Sat by Pulse 98 99 97 Oximetry 09/02/16 09/02/16 09/02/16 06:51 07:00 07:11 Temperature Pulse Rate 70 70 67 Pulse Rate [ Bilateral Throughout] Respiratory 16 16 18 Rate Respiratory Rate [Bilateral Throughout] Blood Pressure 110/62 112/61 112/61 O2 Sat by Pulse 98 97 99 Oximetry 09/02/16 09/02/16 09/02/16 07:21 07:25 07:30 Temperature Pulse Rate 69 69 71 Pulse Rate [ Bilateral Throughout] Respiratory 16 16 Rate Respiratory Rate [Bilateral Throughout] Blood Pressure 118/61 118/61 123/59 O2 Sat by Pulse 98 99 99 Oximetry 09/02/16 09/02/16 09/02/16 07:38 07:41 07:51 Temperature Pulse Rate 70 65 Pulse Rate [ 70 Bilateral Throughout] Respiratory 17 16 Rate Respiratory 18 Rate [Bilateral Throughout] Blood Pressure 123/59 110/60 O2 Sat by Pulse 99 99 Oximetry 09/02/16 09/02/16 09/02/16 08:00 08:11 08:22 Temperature 98 F Pulse Rate 71 69 Pulse Rate [ 73 Bilateral Throughout] Respiratory 18 17 Rate Respiratory 16 Rate [Bilateral Throughout] Blood Pressure 102/60 102/60 O2 Sat by Pulse 98 97 Oximetry CBC and BMP: 09/03/16 04:10 09/03/16 04:10 ABG, PT/INR, D-dimer: ABG POC ABG pH 7.364 (7.35-7.45) 09/02/16 04:34 POC ABG pCO2 39.8 (35-45) 09/02/16 04:34 POC ABG pO2 92 (80-105) 09/02/16 04:34 POC ABG HCO3 22.7 09/02/16 04:34 POC ABG Total CO2 24 09/02/16 04:34 POC ABG O2 Sat 97 09/02/16 04:34 PT/INR, D-dimer PT 18.0 Sec. (12.2-14.9) H 09/02/16 05:00 INR 1.49 (0.87-1.13) H 09/02/16 05:00 Abnormal lab findings: Abnormal Labs 08/29/16 08/30/16 08/30/16 21:59 00:16 05:39 WBC RBC Hgb Hct MCH MCHC RDW Seg Neutrophils % Seg Neuts % (Manual) Nucleated RBC % Seg Neutrophils # Seg Neutrophils # Man PT INR POC ABG pH POC ABG pO2 Sodium Carbon Dioxide Creatinine Glucose POC Glucose 106 H 128 H Lactic Acid Calcium Total Bilirubin AST Alkaline Phosphatase Ammonia Troponin T C-Reactive Protein Total Protein Albumin Prealbumin 0.120 L 08/30/16 08/30/16 08/30/16 10:30 10:30 11:12 WBC 11.1 H RBC 3.16 L Hgb 8.7 L Hct 29.9 L MCH MCHC 29 L RDW 25.0 H Seg Neutrophils % 78.6 H Seg Neuts % (Manual) Nucleated RBC % Seg Neutrophils # 8.7 H Seg Neutrophils # Man PT INR POC ABG pH POC ABG pO2 Sodium 135 L Carbon Dioxide 20 L Creatinine 1.5 H Glucose 148 H POC Glucose 142 H Lactic Acid Calcium 7.2 L Total Bilirubin 1.30 H AST 143 H Alkaline Phosphatase 392 H Ammonia Troponin T C-Reactive Protein Total Protein 6.1 L Albumin 1.2 L Prealbumin 08/30/16 08/30/16 08/30/16 17:41 18:03 18:18 WBC RBC Hgb Hct MCH MCHC RDW Seg Neutrophils % Seg Neuts % (Manual) Nucleated RBC % Seg Neutrophils # Seg Neutrophils # Man PT INR POC ABG pH 7.316 L POC ABG pO2 44 L 59 L Sodium Carbon Dioxide Creatinine Glucose POC Glucose 150 H Lactic Acid Calcium Total Bilirubin AST Alkaline Phosphatase Ammonia Troponin T C-Reactive Protein Total Protein Albumin Prealbumin 08/30/16 08/30/16 08/31/16 22:20 22:20 00:11 WBC RBC Hgb Hct MCH MCHC RDW Seg Neutrophils % Seg Neuts % (Manual) Nucleated RBC % Seg Neutrophils # Seg Neutrophils # Man PT INR POC ABG pH POC ABG pO2 Sodium Carbon Dioxide Creatinine Glucose POC Glucose 133 H Lactic Acid 2.30 H* Calcium Total Bilirubin AST Alkaline Phosphatase Ammonia Troponin T C-Reactive Protein 10.20 H Total Protein Albumin Prealbumin 08/31/16 08/31/16 08/31/16 04:20 04:20 04:20 WBC 18.3 H RBC 3.19 L Hgb 8.8 L Hct 30.0 L MCH 27 L MCHC 29 L RDW 23.9 H Seg Neutrophils % Seg Neuts % (Manual) Nucleated RBC % Seg Neutrophils # Seg Neutrophils # Man PT 16.8 H INR 1.37 H POC ABG pH POC ABG pO2 Sodium 136 L Carbon Dioxide 19 L Creatinine 1.5 H Glucose 125 H POC Glucose Lactic Acid Calcium 7.0 L Total Bilirubin 1.50 H AST 131 H Alkaline Phosphatase 431 H Ammonia Troponin T C-Reactive Protein Total Protein 6.2 L Albumin 1.2 L Prealbumin 08/31/16 08/31/16 08/31/16 04:20 05:22 05:24 WBC RBC Hgb Hct MCH MCHC RDW Seg Neutrophils % Seg Neuts % (Manual) Nucleated RBC % Seg Neutrophils # Seg Neutrophils # Man PT INR POC ABG pH POC ABG pO2 142 H Sodium Carbon Dioxide Creatinine Glucose POC Glucose 123 H Lactic Acid Calcium Total Bilirubin AST Alkaline Phosphatase Ammonia 70.0 H Troponin T C-Reactive Protein Total Protein Albumin Prealbumin 08/31/16 08/31/16 08/31/16 12:10 15:45 17:38 WBC RBC Hgb Hct MCH MCHC RDW Seg Neutrophils % Seg Neuts % (Manual) Nucleated RBC % Seg Neutrophils # Seg Neutrophils # Man PT INR POC ABG pH POC ABG pO2 Sodium 136 L Carbon Dioxide 21 L Creatinine 1.5 H Glucose 160 H POC Glucose 147 H 151 H Lactic Acid Calcium 6.9 L Total Bilirubin AST Alkaline Phosphatase Ammonia Troponin T 0.109 H* D C-Reactive Protein Total Protein Albumin Prealbumin 09/01/16 09/01/16 09/01/16 00:09 04:00 04:00 WBC 14.8 H RBC 2.89 L Hgb 7.8 L Hct 27.2 L MCH 27 L MCHC 29 L RDW 24.4 H Seg Neutrophils % Seg Neuts % (Manual) Nucleated RBC % Seg Neutrophils # Seg Neutrophils # Man PT 18.2 H INR 1.51 H POC ABG pH POC ABG pO2 Sodium Carbon Dioxide Creatinine Glucose POC Glucose 192 H Lactic Acid Calcium Total Bilirubin AST Alkaline Phosphatase Ammonia Troponin T C-Reactive Protein Total Protein Albumin Prealbumin 05/09/01/16 09/01/16 04:00 05:28 11:28 WBC RBC Hgb Hct MCH MCHC RDW Seg Neutrophils % Seg Neuts % (Manual) Nucleated RBC % Seg Neutrophils # Seg Neutrophils # Man PT INR POC ABG pH POC ABG pO2 Sodium Carbon Dioxide 20 L Creatinine 1.6 H Glucose 183 H POC Glucose 189 H 207 H Lactic Acid Calcium 6.9 L Total Bilirubin 1.30 H AST 138 H Alkaline Phosphatase 520 H Ammonia Troponin T C-Reactive Protein Total Protein 6.1 L Albumin 1.2 L Prealbumin 09/01/16 09/01/16 09/02/16 16:56 23:49 05:00 WBC RBC Hgb Hct MCH MCHC RDW Seg Neutrophils % Seg Neuts % (Manual) Nucleated RBC % Seg Neutrophils # Seg Neutrophils # Man PT 18.0 H INR 1.49 H POC ABG pH POC ABG pO2 Sodium Carbon Dioxide Creatinine Glucose POC Glucose 250 H 307 H Lactic Acid Calcium Total Bilirubin AST Alkaline Phosphatase Ammonia Troponin T C-Reactive Protein Total Protein Albumin Prealbumin 09/02/16 09/02/16 09/02/16 05:00 05:00 05:45 WBC 12.3 H RBC 2.57 L Hgb 7.1 L Hct 23.4 L MCH MCHC RDW 23.9 H Seg Neutrophils % Seg Neuts % (Manual) 72.0 H Nucleated RBC % 25.0 H Seg Neutrophils # Seg Neutrophils # Man 8.9 H PT INR POC ABG pH POC ABG pO2 Sodium Carbon Dioxide Creatinine 1.4 H Glucose 299 H POC Glucose 327 H Lactic Acid Calcium 7.0 L Total Bilirubin AST Alkaline Phosphatase Ammonia Troponin T C-Reactive Protein Total Protein Albumin Prealbumin Chest x-ray: report reviewed Allied health notes reviewed: RT
[2016-09-02] MEDS: ZAROXOLYN PO SCH (12:22)
--- NOTE | 2016-09-02 12:31 | Progress Note ---
Assessment and Plan Altered mental status Acute respiratory failure intubated on the vent Lactic acidosis Anemia requiring blood transfusion Obesity Decubitus ulcer Sepsis Conservative cardiac management. Subjective Date of service: 09/02/16 Interval history: Patient remains intubated on the vent. No event on panel monitor. Objective Vital Signs Temp Pulse Pulse Pulse Resp Resp Resp 09/02/16 12:00 72 25 H 09/02/16 11:51 71 19 09/02/16 11:41 71 26 H 09/02/16 11:30 71 29 H 09/02/16 11:21 66 22 09/02/16 11:11 70 25 H 09/02/16 11:07 69 23 09/02/16 10:51 69 23 09/02/16 10:41 69 23 09/02/16 10:30 70 23 09/02/16 10:21 71 23 09/02/16 10:11 72 22 09/02/16 10:05 73 20 09/02/16 10:00 74 33 H 09/02/16 09:51 75 34 H 09/02/16 09:41 73 18 09/02/16 09:30 72 17 09/02/16 09:21 71 18 09/02/16 09:11 72 16 09/02/16 09:00 69 21 09/02/16 08:51 70 09/02/16 08:41 67 18 09/02/16 08:30 72 16 09/02/16 08:22 73 16 09/02/16 08:21 72 18 09/02/16 08:11 69 17 09/02/16 08:00 98 F 71 18 09/02/16 07:51 65 09/02/16 07:41 70 17 09/02/16 07:38 70 18 09/02/16 07:30 71 09/02/16 07:25 69 09/02/16 07:21 69 09/02/16 07:11 67 18 09/02/16 07:00 70 09/02/16 06:51 70 16 09/02/16 06:41 72 16 09/02/16 06:30 70 16 09/02/16 06:21 70 16 09/02/16 06:11 68 16 09/02/16 06:00 71 16 09/02/16 05:51 70 19 09/02/16 05:41 75 16 09/02/16 05:30 73 19 09/02/16 05:21 73 19 09/02/16 05:11 75 18 09/02/16 05:00 98.0 F 73 20 09/02/16 04:51 76 20 09/02/16 04:41 78 18 09/02/16 04:30 81 24 09/02/16 04:21 79 20 09/02/16 04:17 76 09/02/16 04:11 77 18 09/02/16 04:00 81 19 09/02/16 03:51 77 17 09/02/16 03:41 80 20 09/02/16 03:30 80 20 09/02/16 03:21 77 24 09/02/16 03:11 78 22 09/02/16 03:00 78 22 09/02/16 02:51 78 24 09/02/16 02:41 75 19 09/02/16 02:30 75 22 09/02/16 02:21 76 12 09/02/16 02:18 74 17 09/02/16 02:11 68 15 09/02/16 02:03 72 17 09/02/16 02:00 78 16 09/02/16 01:51 79 20 09/02/16 01:41 70 20 09/02/16 01:30 72 16 09/02/16 01:21 75 22 09/02/16 01:11 73 17 09/02/16 01:00 76 16 09/02/16 00:51 72 17 09/02/16 00:41 75 19 09/02/16 00:30 74 17 09/02/16 00:21 74 9 L 09/02/16 00:10 70 16 09/02/16 00:01 68 17 09/02/16 00:00 97.8 F 72 17 09/01/16 23:52 69 16 17 23:51 71 19 17 23:44 71 15 17 23:41 70 18 17 23:33 69 17 23:31 70 16 17 23:30 71 14 17 23:21 69 22 17 23:11 70 20 17 23:00 68 22 17 22:51 65 16 05/23/17 22:41 68 16 05/17 22:30 66 14 05/17 22:21 66 17 05/17 22:11 67 21 0517 22:00 68 16 05/17 21:51 65 16 05/17 21:41 67 19 05/17 21:30 64 18 05/17 21:21 66 12 05/17 21:11 67 11 L 0517 21:00 68 19 05/17 20:51 66 13 05/17 20:41 65 17 05/17 20:30 65 18 05/17 20:21 66 19 05/17 20:11 68 16 05/17 20:00 98.9 F 65 16 05/17 19:51 66 21 05/17 19:49 64 17 0517 19:41 65 16 05/17 19:34 62 17 0517 19:30 64 17 0517 19:28 61 05/17 19:21 65 12 0517 19:11 66 16 0517 19:00 66 21 0517 18:51 66 18 0517 18:41 63 16 0517 18:30 65 19 05/17 18:21 65 16 05/17 18:11 66 17 0517 18:00 65 18 0517 17:51 64 16 0517 17:41 66 16 0517 17:30 65 19 0517 17:20 66 16 05/17 17:11 66 20 0517 17:00 66 19 05/17 16:51 68 21 05/17 16:41 66 19 05/17 16:30 66 16 05/17 16:21 64 16 05/17 16:11 66 17 05/17 16:00 98.4 F 68 20 05/17 15:51 66 17 05/23/17 15:41 64 16 05/23/17 15:31 64 18 0523/17 15:20 65 17 05//17 15:11 63 18 05//17 15:00 65 20 09/01/16 14:51 64 17 09/01/16 14:41 64 17 09/01/16 14:30 66 16 09/01/16 14:21 65 18 09/01/16 14:15 70 22 09/01/16 14:11 67 16 09/01/16 14:00 65 68 17 20 09/01/16 13:51 64 16 09/01/16 13:41 65 16 09/01/16 13:30 64 15 09/01/16 13:21 65 16 09/01/16 13:11 62 16 09/01/16 13:00 66 16 09/01/16 12:51 68 16 09/01/16 12:41 67 16 09/01/16 12:30 64 16 BP Pulse Ox 09/02/16 12:00 117/61 100 09/02/16 11:51 114/59 100 09/02/16 11:41 113/58 99 09/02/16 11:30 113/58 99 09/02/16 11:21 115/59 100 09/02/16 11:11 100 09/02/16 11:07 100 09/02/16 10:51 112/62 99 09/02/16 10:41 112/62 99 09/02/16 10:30 112/62 99 09/02/16 10:21 109/59 99 09/02/16 10:11 130/55 99 09/02/16 10:05 130/55 100 09/02/16 10:00 117/60 99 09/02/16 09:51 111/55 97 09/02/16 09:41 114/61 98 09/02/16 09:30 114/61 98 09/02/16 09:21 111/63 99 09/02/16 09:11 111/62 98 09/02/16 09:00 111/62 97 09/02/16 08:51 117/62 98 09/02/16 08:41 112/61 97 09/02/16 08:30 112/61 97 09/02/16 08:22 09/02/16 08:21 110/60 98 09/02/16 08:11 102/60 97 09/02/16 08:00 102/60 98 09/02/16 07:51 110/60 99 09/02/16 07:41 123/59 99 0517 07:38 05 07:30 123/59 99 0517 07:25 118/61 99 05 07:21 118/61 98 0517 07:11 112/61 99 09/02/16 07:00 112/61 97 05 06:51 110/62 98 09/02/16 06:41 103/61 97 09/02/16 06:30 103/61 99 0517 06:21 110/62 98 09/02/16 06:11 100/63 98 05 06:00 100/63 97 09/02/16 05:51 107/61 97 09/02/16 05:41 109/59 97 09/02/16 05:30 109/59 97 09/02/16 05:21 116/62 97 09/02/16 05:11 117/59 97 09/02/16 05:00 117/59 97 09/02/16 04:51 111/62 97 09/02/16 04:41 96/51 97 09/02/16 04:30 96/51 93 09/02/16 04:21 105/57 99 09/02/16 04:17 121/65 99 09/02/16 04:11 121/65 99 09/02/16 04:00 121/65 99 09/02/16 03:51 125/65 99 09/02/16 03:41 128/70 98 09/02/16 03:30 128/70 98 09/02/16 03:21 120/68 98 09/02/16 03:11 125/64 98 09/02/16 03:00 125/64 97 09/02/16 02:51 118/67 96 09/02/16 02:41 109/38 97 09/02/16 02:30 114/62 96 09/02/16 02:21 109/38 93 09/02/16 02:18 09/02/16 02:11 122/58 96 09/02/16 02:03 09/02/16 02:00 122/58 98 09/02/16 01:51 115/62 99 09/02/16 01:41 112/56 100 09/02/16 01:30 119/60 99 05/24/17 01:21 112/56 99 05 01:11 119/57 99 05 01:00 119/57 98 05 00:51 113/58 100 05 00:41 117/59 100 09/02/16 00:30 116/56 98 05 00:21 117/59 99 05 00:10 117/55 100 05 00:01 117/55 99 05 00:00 117/55 99 05 23:52 112/57 100 05 23:51 121/53 100 05 23:44 112/57 99 05 23:41 112/57 100 0517 23:33 105/57 100 05 23:31 112/57 99 05 23:30 112/57 99 05 23:21 112/57 100 05 23:11 115/57 100 05 23:00 105/57 100 0517 22:51 115/57 100 0517 22:41 120/51 100 0517 22:30 120/51 100 0517 22:21 122/56 100 0517 22:11 114/65 99 0517 22:00 114/65 100 05 21:51 122/60 99 05 21:41 119/54 98 05 21:30 119/54 100 0517 21:21 116/55 100 0517 21:11 115/60 100 05 21:00 115/60 100 0517 20:51 113/58 99 0517 20:41 102/54 100 0517 20:30 102/54 100 0517 20:21 108/54 100 0517 20:11 108/58 100 05 20:00 108/58 99 0517 19:51 122/58 98 0517 19:49 0517 19:41 118/55 99 05/23/17 19:34 05//17 19:30 118/55 100 05/23/17 19:28 114/54 100 05//17 19:21 114/54 98 05//17 19:11 115/59 100 05/17 19:00 115/59 100 05//17 18:51 113/60 99 05//17 18:41 115/55 100 05//17 18:30 115/55 100 05/17 18:21 115/53 100 05/17 18:11 111/52 100 05//17 18:00 111/52 99 05/17 17:51 118/61 100 05/17 17:41 113/59 100 05/17 17:30 113/59 97 05/17 17:20 122/66 100 05/17 17:11 122/66 99 05/17 17:00 122/66 92 05/17 16:51 122/45 97 0517 16:41 118/44 99 0517 16:30 102/49 100 05/17 16:21 130/60 98 05/17 16:11 129/67 100 05/23/17 16:00 129/67 98 05/17 15:51 134/57 100 05/17 15:41 126/75 99 05/17 15:31 126/75 100 05/17 15:20 82/43 05/17 15:11 84/42 100 05/17 15:00 71/40 100 05/17 14:51 73/42 100 05/17 14:41 79/41 100 05/17 14:30 79/41 97 05//17 14:21 88/40 98 05//17 14:15 05/17 14:11 116/61 100 05//17 14:00 116/61 100 05/17 13:51 105/56 100 05/17 13:41 107/57 100 05/17 13:30 107/57 98 05/23/17 13:21 104/50 100 05/23/17 13:11 83/41 100 05/17 13:00 83/41 95 05//17 12:51 104/50 100 09/01/16 12:41 105/48 100 09/01/16 12:30 105/48 100 - Physical Examination General: Other (intubated on the vent) Cardiac: Positive: Reg Rate and Rhythm - Labs and Meds Coagulation 09/02/16 Range/Units 05:00 PT 18.0 H (12.2-14.9) Sec. INR 1.49 H (0.87-1.13) CBC 09/02/16 Range/Units 05:00 WBC 12.3 H (4.5-11.0) K/mm3 RBC 2.57 L (3.65-5.03) M/mm3 Hgb 7.1 L (10.1-14.3) gm/dl Hct 23.4 L (30.3-42.9) % Plt Count 224 (140-440) K/mm3 Comprehensive Metabolic Panel 09/02/16 Range/Units 05:00 Sodium 139 (137-145) mmol/L Potassium 3.9 (3.6-5.0) mmol/L Chloride 102.3 (98-107) mmol/L Carbon Dioxide 22 (22-30) mmol/L BUN 9 (7-17) mg/dL Creatinine 1.4 H (0.7-1.2) mg/dL Glucose 299 H (65-100) mg/dL Calcium 7.0 L (8.4-10.2) mg/dL - Allied health notes Allied health notes reviewed: RT
[2016-09-02] MEDS ORDERED: LEVEMIR SUB-Q ONE (13:00)
--- NOTE | 2016-09-02 13:01 | Progress Note ---
Assessment and Plan Assessment and plan: Patient is a 61-year-old morbidly obese woman with a past medical history of congestive heart failure, severe protein calorie malnutrition with BMI of 81.6, functional quadriplegia, type 2 diabetes mellitus, hypertension, multiple skin breakdown between legs and thighs who presented to the hospital via EMS with AMS. 2D echocardiogram with ejection fraction of 50-55%. During the past admission patient was recommended for placement but refused. On presentation patient was felt to be unable to maintain airway and intubated the ER. Acute toxic metabolic encephalopathy Acute on chronic diastolic congestive heart failure: Cardiology is following, diuresis Acute on chronic respiratory failure, intubated Septic shock on Levaphed: Weaning attempts Hypercoagulable state Severe anemia s/p blood transfusion: monitor cbc closely Mitral stenosis Paroxysmal atrial fibrillation Non-ST elevated SC: Cardiology is following, conservative management Acute on chronic kidney disease likely secondary to vasomotor nephropathy-POA Transaminitis-elevated alkaline phosphatase and AST: continue to monitor Severe protein calorie malnutrition albumin 1.2 Morbid obesity BMI 81.6 Mulitple PRESSURE ULCERS-POA: consulted wound care New issues: uncontrolled dm: increase ssi and wean down iv steroids. restraints renewed drop in HCT, ordered am labs Levaphed still at 3 mcg Unable to get CT head due to weight issues Patient is currently not on sedation. Pupils are STILL pinpoint so prior sedative medications are probably still active in her system, she spontaneously opened her eyes today. Still not following commands Family to bring in old records History Interval history: Patient seen and examined. Follow up on respiratory failure. Patient still intubated. Overnight uneventful. No cp, sob, n/v or severe headaches. Imaging, old records, testing, labs, nursing notes reviewed. Hospitalist Physical - Physical exam Narrative exam: GEN: Critically ill, morbid obese BMI 81.6, intubated HEENT: Pupils are pinpoint and reactive, ET tube in place NECK: SUPPLE, NO THYROMEGALY, NO JVD, NO LAD CVS: regular irregular NORMAL S1S2 LUNGS/CHEST: TA B, NORMAL CHEST EXPANSION B, GOOD AIR ENTRY B ABD: SOFT, NONDISTENDED GBS, NO REBOUND OR GUARDING MSK: Spontaneous movement of extremities NEURO: CN 2-12 GROSSLY INTACT, doesn't follow commands PSY: Confused - Constitutional Vitals: Temp Pulse Resp BP Pulse Ox 98 F 72 25 H 117/61 100 09/02/16 08:00 09/02/16 12:00 09/02/16 12:00 09/02/16 12:00 09/02/16 12:00 General appearance: Present: other (intubated on the vent) Results - Labs CBC & Chem 7: 09/02/16 05:00 09/02/16 05:00 Labs: Laboratory Last Values WBC 12.3 K/mm3 (4.5-11.0) H 09/02/16 05:00 RBC 2.57 M/mm3 (3.65-5.03) L 09/02/16 05:00 Hgb 7.1 gm/dl (10.1-14.3) L 09/02/16 05:00 Hct 23.4 % (30.3-42.9) L 09/02/16 05:00 MCV 91 fl (79-97) D 09/02/16 05:00 MCH 28 pg (28-32) 09/02/16 05:00 MCHC 30 % (30-34) 09/02/16 05:00 RDW 23.9 % (13.2-15.2) H 09/02/16 05:00 Plt Count 224 K/mm3 (140-440) 09/02/16 05:00 Lymph % (Auto) 15.6 % (13.4-35.0) 08/30/16 10:30 [place] % (Auto) 5.1 % (0.0-7.3) 08/30/16 10:30 Eos % (Auto) 0.6 % (0.0-4.3) 08/30/16 10:30 Baso % (Auto) 0.1 % (0.0-1.8) 08/30/16 10:30 Lymph # 1.7 K/mm3 (1.2-5.4) 08/30/16 10:30 [place] # 0.6 K/mm3 (0.0-0.8) 08/30/16 10:30 Eos # 0.1 K/mm3 (0.0-0.4) 08/30/16 10:30 Baso # 0.0 K/mm3 (0.0-0.1) 08/30/16 10:30 Add Manual Diff Complete 09/02/16 05:00 Total Counted 100 09/02/16 05:00 Seg Neutrophils % 78.6 % (40.0-70.0) H 08/30/16 10:30 Seg Neuts % (Manual) 72.0 % (40.0-70.0) H 09/02/16 05:00 Band Neutrophils % 9.0 % 09/02/16 05:00 Lymphocytes % (Manual) 15.0 % (13.4-35.0) 09/02/16 05:00 Reactive Lymphs % (Man) 0 % 09/02/16 05:00 Monocytes % (Manual) 4.0 % (0.0-7.3) 09/02/16 05:00 Eosinophils % (Manual) 0 % (0.0-4.3) 09/02/16 05:00 Basophils % (Manual) 0 % (0.0-1.8) 09/02/16 05:00 Metamyelocytes % 0 % 09/02/16 05:00 Myelocytes % 0 % 09/02/16 05:00 Promyelocytes % 0 % 09/02/16 05:00 Blast Cells % 0 % 09/02/16 05:00 Nucleated RBC % 25.0 % (0.0-0.9) H 09/02/16 05:00 Seg Neutrophils # 8.7 K/mm3 (1.8-7.7) H 08/30/16 10:30 Seg Neutrophils # Man 8.9 K/mm3 (1.8-7.7) H 09/02/16 05:00 Band Neutrophils # 1.1 K/mm3 09/02/16 05:00 Lymphocytes # (Manual) 1.8 K/mm3 (1.2-5.4) 09/02/16 05:00 Abs React Lymphs (Man) 0.0 K/mm3 09/02/16 05:00 Monocytes # (Manual) 0.5 K/mm3 (0.0-0.8) 09/02/16 05:00 Eosinophils # (Manual) 0.0 K/mm3 (0.0-0.4) 09/02/16 05:00 Basophils # (Manual) 0.0 K/mm3 (0.0-0.1) 09/02/16 05:00 Metamyelocytes # 0.0 K/mm3 09/02/16 05:00 Myelocytes # 0.0 K/mm3 09/02/16 05:00 Promyelocytes # 0.0 K/mm3 09/02/16 05:00 Blast Cells # 0.0 K/mm3 09/02/16 05:00 WBC Morphology Not Reportable 09/02/16 05:00 Hypersegmented Neuts Not Reportable 09/02/16 05:00 Hyposegmented Neuts Not Reportable 09/02/16 05:00 Hypogranular Neuts Not Reportable 09/02/16 05:00 Smudge Cells Not Reportable 09/02/16 05:00 Toxic Granulation Not Reportable 09/02/16 05:00 Toxic Vacuolation Not Reportable 09/02/16 05:00 Dohle Bodies Not Reportable 09/02/16 05:00 Pelger-Huet Anomaly Not Reportable 09/02/16 05:00 Feli Rods Not Reportable 09/02/16 05:00 Platelet Estimate Consistent w auto 09/02/16 05:00 Clumped Platelets Not Reportable 09/02/16 05:00 Plt Clumps, EDTA Not Reportable 09/02/16 05:00 Large Platelets Not Reportable 09/02/16 05:00 Giant Platelets Not Reportable 09/02/16 05:00 Platelet Satelliting Not Reportable 09/02/16 05:00 Plt Morphology Comment Not Reportable 09/02/16 05:00 RBC Morphology Not Reportable 09/02/16 05:00 Dimorphic RBCs Not Reportable 09/02/16 05:00 Polychromasia Rare 09/02/16 05:00 Hypochromasia Not Reportable 09/02/16 05:00 Poikilocytosis Not Reportable 09/02/16 05:00 Anisocytosis 1+ 09/02/16 05:00 Microcytosis Not Reportable 09/02/16 05:00 Macrocytosis 1+ 09/02/16 05:00 Spherocytes Not Reportable 09/02/16 05:00 Pappenheimer Bodies Not Reportable 09/02/16 05:00 Sickle Cells Not Reportable 09/02/16 05:00 Target Cells Not Reportable 09/02/16 05:00 Tear Drop Cells Not Reportable 09/02/16 05:00 Ovalocytes Not Reportable 09/02/16 05:00 Helmet Cells Not Reportable 09/02/16 05:00 [place] Bodies Not Reportable 09/02/16 05:00 [place] Rings Not Reportable 09/02/16 05:00 [place] Cells Not Reportable 09/02/16 05:00 Bite Cells Not Reportable 09/02/16 05:00 Crenated Cell Not Reportable 09/02/16 05:00 Elliptocytes Not Reportable 09/02/16 05:00 Acanthocytes (Spur) Not Reportable 09/02/16 05:00 Rouleaux Not Reportable 09/02/16 05:00 Hemoglobin C Crystals Not Reportable 09/02/16 05:00 Schistocytes Not Reportable 09/02/16 05:00 Malaria parasites Not Reportable 09/02/16 05:00 Manny Bodies Not Reportable 09/02/16 05:00 Hem Pathologist Commnt No 09/02/16 05:00 PT 18.0 Sec. (12.2-14.9) H 09/02/16 05:00 INR 1.49 (0.87-1.13) H 09/02/16 05:00 APTT 29.5 Sec. (24.2-36.6) 08/29/16 17:40 POC ABG pH 7.364 (7.35-7.45) 09/02/16 04:34 POC ABG pCO2 39.8 (35-45) 09/02/16 04:34 POC ABG pO2 92 (80-105) 09/02/16 04:34 POC ABG HCO3 22.7 09/02/16 04:34 POC ABG Total CO2 24 09/02/16 04:34 POC ABG O2 Sat 97 09/02/16 04:34 POC ABG Base Excess -3 09/02/16 04:34 VBG pH 7.366 (7.320-7.420) 08/29/16 17:40 FiO2 40 % 09/02/16 04:34 Sodium 139 mmol/L (137-145) 09/02/16 05:00 Potassium 3.9 mmol/L (3.6-5.0) 09/02/16 05:00 Chloride 102.3 mmol/L (98-107) 09/02/16 05:00 Carbon Dioxide 22 mmol/L (22-30) 09/02/16 05:00 Anion Gap 19 mmol/L 09/02/16 05:00 BUN 9 mg/dL (7-17) 09/02/16 05:00 Creatinine 1.4 mg/dL (0.7-1.2) H 09/02/16 05:00 Estimated GFR 46 ml/min 09/02/16 05:00 BUN/Creatinine Ratio 6.42 % 09/02/16 05:00 Glucose 299 mg/dL (65-100) H 09/02/16 05:00 POC Glucose 310 (70-105) H 09/02/16 12:22 Lactic Acid 1.90 mmol/L (0.7-2.0) 08/31/16 04:20 Calcium 7.0 mg/dL (8.4-10.2) L 09/02/16 05:00 Phosphorus 3.60 mg/dL (2.5-4.5) 08/29/16 21:59 Magnesium 1.80 mg/dL (1.7-2.3) 08/29/16 21:59 Total Bilirubin 1.30 mg/dL (0.1-1.2) H 09/01/16 04:00 AST 138 units/L (5-40) H 09/01/16 04:00 ALT 53 units/L (7-56) 09/01/16 04:00 Alkaline Phosphatase 520 units/L (35-129) H 09/01/16 04:00 Ammonia 70.0 umol/L (25-60) H 08/31/16 04:20 Total Creatine Kinase 28 units/L (30-135) L 08/29/16 17:40 CK-MB (CK-2) < 1.0 ng/mL (0.0-4.0) 08/29/16 17:40 CK-MB (CK-2) Rel Index 3.5 (0-4) 08/29/16 17:40 Troponin T 0.109 ng/mL (0.00-0.029) H* D 08/31/16 15:45 C-Reactive Protein 10.20 mg/dL (0.00-1.30) H 08/30/16 22:20 NT-Pro-B Natriuret Pep 1712 pg/mL (0-900) H 08/29/16 17:40 Total Protein 6.1 g/dL (6.3-8.2) L 09/01/16 04:00 Albumin 1.2 g/dL (3.9-5) L 09/01/16 04:00 Albumin/Globulin Ratio 0.2 % 09/01/16 04:00 Prealbumin 0.120 g/L (0.200-0.400) L 08/29/16 21:59 Triglycerides 225 mg/dL (2-149) H 08/29/16 17:40 Cholesterol 130 mg/dL (50-199) 08/29/16 17:40 LDL Cholesterol Direct 82 mg/dL (50-130) 08/29/16 17:40 HDL Cholesterol 3 mg/dL (40-59) L 08/29/16 17:40 Cholesterol/HDL Ratio 43.33 % 08/29/16 17:40 Urine Color Yellow (Yellow) 08/31/16 15:37 Urine Turbidity Clear (Clear) 08/31/16 15:37 Urine pH 5.0 (5.0-7.0) 08/31/16 15:37 Ur Specific [place] 1.009 (1.003-1.030) 08/31/16 15:37 Urine Protein <15 mg/dl mg/dL (Negative) 08/31/16 15:37 Urine Glucose (UA) Neg mg/dL (Negative) 08/31/16 15:37 Urine Ketones Neg mg/dL (Negative) 08/31/16 15:37 Urine Blood Sm (Negative) 08/31/16 15:37 Urine Nitrite Neg (Negative) 08/31/16 15:37 Urine Bilirubin Neg (Negative) 08/31/16 15:37 Urine Urobilinogen < 2.0 mg/dL (<2.0) 08/31/16 15:37 Ur Leukocyte Esterase Sm (Negative) 08/31/16 15:37 Urine WBC (Auto) 3.0 /HPF (0.0-6.0) 08/31/16 15:37 Urine RBC (Auto) 1.0 /HPF (0.0-6.0) 08/31/16 15:37 U Epithel Cells (Auto) < 1.0 /HPF (0-13.0) 08/31/16 15:37 Urine Bacteria (Auto) 1+ /HPF (Negative) 08/31/16 15:37 Hyaline Casts 5 /LPF 08/31/16 15:37 Urine Mucus Few /HPF 08/31/16 15:37 Blood Type O POSITIVE 08/29/16 18:15 Antibody Screen TNR 08/29/16 18:15 PATRICK Antibody Screen Negative 08/29/16 18:15 Crossmatch See Detail 08/29/16 18:15
[2016-09-02] MEDS: BUMEX IV SCH ×2 (15:32→23:01)
[2016-09-02] MEDS: LOVENOX SUB-Q SCH (21:19)
[2016-09-02] MEDS: LEVOPHED DRIP 4 MG/NS 250 ML 4 MG/250 ML BAG IV SCH (23:02)
[2016-09-03] MEDS: NOVOLOG SUB-Q SCH ×4 (01:14→17:50)
[2016-09-03] MEDS: DUONEB 0.5 MG-3 MG/3 ML SOLN IH SCH ×4 (02:31→19:35)
[2016-09-03] MEDS: ZOSYN/NS 4.5GM/100ML 4.5 GM/100 ML VIAL IV SCH ×3 (03:38→22:12)
[2016-09-03 04:54] LABS: Hemoglobin 6.1 gm/dl (10.1-14.3); Mean Corpuscular HGB Conc 29 % (30-34); Mean Corpuscular Hemoglobin 27 pg (28-32); Mean Corpuscular Volume 92 fl (79-97); Platelet Count 186 K/mm3 (140-440); Red Blood Count 2.29 M/mm3 (3.65-5.03); White Blood Count 11.8 K/mm3 (4.5-11.0)
[2016-09-03 05:06] LABS: INR 1.45 (0.87-1.13); Red Cell Distribution Width 24.1 % (13.2-15.2)
[2016-09-03 05:08] LABS: BUN/Creatinine Ratio 7.85; Chloride 102.2 mmol/L (98-107)
[2016-09-03 05:25] LABS: ISTAT Base Excess 0; ISTAT HCO3 24.3; ISTAT PCO2 36.9 (35-45); ISTAT PH 7.426 (7.35-7.45); ISTAT PO2 86 (80-105); ISTAT SO2 97; ISTAT TCO2 25
--- NOTE | 2016-09-03 07:42 | Progress Note ---
Assessment and Plan - Patient Problems (1) RORY (acute kidney injury) Current Visit: No Status: Acute Plan to address problem: Acute Kidney Injury is hemodynamically mediated in the setting of hypotension / shock. Renal function is stable. Continue current treatment. (2) Shock Current Visit: Yes Status: Acute Plan to address problem: On Levophed. (3) Respiratory failure Current Visit: Yes Status: Acute Qualifiers: Chronicity: C Respiratory failure complication: R Plan to address problem: On vent. (4) Altered mental status Current Visit: Yes Status: Acute Qualifiers: Altered mental status type: unspecified Coma depth: C Coma timing: C Qualified Code(s): R41.82 - Altered mental status, unspecified (5) Anemia Current Visit: Yes Status: Acute Qualifiers: Anemia type: unspecified type Iron deficiency anemia type: I Vitamin B12 deficiency anemia type: V Folate deficiency anemia type: F Bone marrow failure anemia type: B Hemolytic anemia type: H Other causes of anemia: O Qualified Code(s): D64.9 - Anemia, unspecified Plan to address problem: Patient refused Transfusion. Subjective Date of service: 09/03/16 Interval history: Patient remain on the vent. Objective - Vital Signs Vital signs: Vital Signs - 12hr 09/02/16 09/02/16 09/02/16 19:45 20:00 20:01 Temperature 96.0 F L Pulse Rate 77 76 Pulse Rate [ Bilateral Throughout] Respiratory 15 16 Rate Respiratory Rate [Bilateral Throughout] Blood Pressure 109/55 103/81 O2 Sat by Pulse 99 Oximetry 09/02/16 09/02/16 09/02/16 20:15 20:30 20:45 Temperature Pulse Rate 77 77 73 Pulse Rate [ Bilateral Throughout] Respiratory 33 H 19 21 Rate Respiratory Rate [Bilateral Throughout] Blood Pressure 94/49 90/49 95/53 O2 Sat by Pulse 99 98 100 Oximetry 09/02/16 09/02/16 09/02/16 21:00 21:15 21:30 Temperature Pulse Rate 76 73 75 Pulse Rate [ Bilateral Throughout] Respiratory 19 24 21 Rate Respiratory Rate [Bilateral Throughout] Blood Pressure 101/54 96/53 108/41 O2 Sat by Pulse 100 93 100 Oximetry 09/02/16 09/02/16 09/02/16 21:45 22:00 22:15 Temperature Pulse Rate 74 72 75 Pulse Rate [ Bilateral Throughout] Respiratory 24 23 22 Rate Respiratory Rate [Bilateral Throughout] Blood Pressure 91/44 105/51 106/55 O2 Sat by Pulse 99 100 100 Oximetry 09/02/16 09/02/16 09/02/16 22:30 22:45 23:00 Temperature Pulse Rate 76 75 76 Pulse Rate [ Bilateral Throughout] Respiratory 31 H 11 L 21 Rate Respiratory Rate [Bilateral Throughout] Blood Pressure 114/56 104/53 96/56 O2 Sat by Pulse 98 100 100 Oximetry 09/02/16 09/02/16 09/02/16 23:09 23:15 23:30 Temperature Pulse Rate 81 72 74 Pulse Rate [ Bilateral Throughout] Respiratory 23 17 Rate Respiratory Rate [Bilateral Throughout] Blood Pressure 104/53 104/54 95/53 O2 Sat by Pulse 100 99 98 Oximetry 09/02/16 09/03/16 09/03/16 23:45 00:00 00:15 Temperature Pulse Rate 70 71 72 Pulse Rate [ Bilateral Throughout] Respiratory 12 20 18 Rate Respiratory Rate [Bilateral Throughout] Blood Pressure 103/55 105/55 101/55 O2 Sat by Pulse 99 99 99 Oximetry 09/03/16 09/03/16 09/03/16 00:30 00:45 01:00 Temperature Pulse Rate 69 72 74 Pulse Rate [ Bilateral Throughout] Respiratory 14 8 L 19 Rate Respiratory Rate [Bilateral Throughout] Blood Pressure 105/54 106/57 100/54 O2 Sat by Pulse 99 99 99 Oximetry 09/03/16 09/03/16 09/03/16 01:15 01:30 01:45 Temperature Pulse Rate 71 73 72 Pulse Rate [ Bilateral Throughout] Respiratory 23 30 H 30 H Rate Respiratory Rate [Bilateral Throughout] Blood Pressure 105/54 105/59 107/62 O2 Sat by Pulse 99 96 99 Oximetry 09/03/16 09/03/16 09/03/16 02:00 02:15 02:30 Temperature Pulse Rate 75 74 78 Pulse Rate [ Bilateral Throughout] Respiratory 20 18 10 L Rate Respiratory Rate [Bilateral Throughout] Blood Pressure 106/58 109/53 105/55 O2 Sat by Pulse 99 100 98 Oximetry 09/03/16 09/03/16 09/03/16 02:31 02:45 02:46 Temperature Pulse Rate 77 Pulse Rate [ 73 75 Bilateral Throughout] Respiratory 21 Rate Respiratory 19 19 Rate [Bilateral Throughout] Blood Pressure 106/58 O2 Sat by Pulse Oximetry 09/03/16 09/03/1617 03:00 03:15 03:30 Temperature Pulse Rate 79 74 76 Pulse Rate [ Bilateral Throughout] Respiratory 20 19 24 Rate Respiratory Rate [Bilateral Throughout] Blood Pressure 106/58 103/52 100/51 O2 Sat by Pulse 100 99 98 Oximetry 09/03/16 09/03/16 09/03/16 03:45 03:46 04:00 Temperature 96.0 F L Pulse Rate 80 79 78 Pulse Rate [ Bilateral Throughout] Respiratory 31 H 21 Rate Respiratory Rate [Bilateral Throughout] Blood Pressure 108/53 106/53 O2 Sat by Pulse 99 98 Oximetry 09/03/16 09/03/16 09/03/16 04:15 04:30 04:45 Temperature Pulse Rate 79 80 71 Pulse Rate [ Bilateral Throughout] Respiratory 24 18 19 Rate Respiratory Rate [Bilateral Throughout] Blood Pressure 108/54 103/55 100/48 O2 Sat by Pulse 99 99 Oximetry 09/03/16 09/03/16 09/03/16 05:00 05:15 05:30 Temperature Pulse Rate 80 77 79 Pulse Rate [ Bilateral Throughout] Respiratory 16 26 H 18 Rate Respiratory Rate [Bilateral Throughout] Blood Pressure 99/55 109/53 98/53 O2 Sat by Pulse 99 99 Oximetry 09/03/16 09/03/16 09/03/16 05:45 06:00 06:15 Temperature Pulse Rate 85 82 84 Pulse Rate [ Bilateral Throughout] Respiratory 28 H 20 21 Rate Respiratory Rate [Bilateral Throughout] Blood Pressure 108/54 103/55 106/51 O2 Sat by Pulse 97 97 Oximetry - General Appearance General appearance: well-developed, well-nourished, appears stated age, obese, intubated (FiO2 30%) EENT: ATNC, PERRL Neck: supple Respiratory: Present: Clear to Ascultation Cardiology: regular, S1S2, no murmurs Gastrointestinal: normoactive bowel sounds, obese Integumentary: no rash Neurologic: other (opens eyes) Musculoskeletal: other (2+ edema of both LEs noted) - Lab 09/03/16 04:10 09/03/16 04:10 Most recent lab results Calcium 7.0 mg/dL (8.4-10.2) L 09/03/16 04:10 Phosphorus 3.60 mg/dL (2.5-4.5) 08/29/16 21:59 Magnesium 1.80 mg/dL (1.7-2.3) 08/29/16 21:59
[2016-09-03] MEDS ORDERED: LEVEMIR SUB-Q SCH (08:00)
--- NOTE | 2016-09-03 08:14 | XRay Report ---
AP chest x-ray. Findings: Since yesterday's study, there has been no interval change. Hazy opacification of the lower right lung field suggest a posterior layered effusion and/or atelectasis with diminished by him of the right hemithorax.. No focal air space disease is seen. The left lung is clear. The endotracheal tube is in satisfactory position. No new findings are seen.
[2016-09-03] MEDS ORDERED: ZAROXOLYN PO SCH (09:30)
[2016-09-03] MEDS: PROTONIX PO SCH (09:36)
[2016-09-03] MEDS: LEVAQUIN 750MG/150ML 750 MG/150 ML BAG IV SCH (09:38)
[2016-09-03] MEDS: POTASSIUM CHLORIDE PO SCH ×2 (09:38→22:06)
[2016-09-03] MEDS ORDERED: LEVEMIR SUB-Q ONE (11:00)
--- NOTE | 2016-09-03 11:14 | Progress Note ---
Assessment and Plan - Patient Problems (1) Respiratory failure Current Visit: Yes Status: Acute Qualifiers: Chronicity: C Respiratory failure complication: R Plan to address problem: Currently on mechanical ventilatory support AC-VC 16/500/PEEP8/60% ABG 7.36/41/142/23/-2.Continue with MVS VAP bundle addressed Wean FIO2 for O2 sats>92% HOB>40, aspiration precautions VTE prophylaxis- enoxaparin Stress ulcer prophylaxis- Pantoprazole Sedation/Analgesia- not requiring any sedation Lung protective strategies Start SBTs in the morning Continue with enteric feedings, monitor accucheck, glycemic control- keep blood glucose<180mg/dl Decrease PEEP to 5, and continue to wean FIO2 (2) Shock Current Visit: Yes Status: Acute Plan to address problem: Treated as septic shock secondary to HCAP - Wean vasopressor support for MAP>65 Continue with antibiotics for now. Follow up cultures and de-escalate/re-evaluate on going need for antibiotics On steroid therapy for possible CPD with AE (3) Acute on chronic diastolic (congestive) heart failure Current Visit: No Status: Acute (4) Altered mental status Current Visit: Yes Status: Acute Qualifiers: Altered mental status type: unspecified Coma depth: C Coma timing: C Qualified Code(s): R41.82 - Altered mental status, unspecified Plan to address problem: Suspect this is metabolic/toxic encephalopathy but need to r/o non convulsive seizure activity (5) Morbid obesity Current Visit: Yes Status: Acute Qualifiers: Obesity type: unspecified obesity type Qualified Code(s): E66.01 - Morbid ( severe) obesity due to excess calories (6) Anemia Current Visit: Yes Status: Acute Qualifiers: Anemia type: unspecified type Iron deficiency anemia type: I Vitamin B12 deficiency anemia type: V Folate deficiency anemia type: F Bone marrow failure anemia type: B Hemolytic anemia type: H Other causes of anemia: O Qualified Code(s): D64.9 - Anemia, unspecified Plan to address problem: Start IV iron therapies with supplements. As per admission documentation, the patient elects not to be transfused (7) Hyponatremia Current Visit: Yes Status: Acute Plan to address problem: Resolved. Continue to monitor closely and trend Subjective Date of service: 09/03/16 Interval history: No acute overnight events. Boyfriend at the bedside. More awake today, though she still does not obey commands. Sedation has been discontinued. On empiric antibiotics for possible HCAP- will complete a 7 day course and then discontinue. Remains orally intubated. Seen and examined. Vitals, labs, medications, chart and imaging reviewed. Discussed care at interdisciplinary rounds Objective - Exam Narrative Exam: GEN: Critically ill, morbid obese BMI 81.6, intubated HEENT: Pupils are pinpoint and reactive, ET tube in place NECK: Supple, no adenopathy, orally intubated CVS: regular irregular, S1, S2 LUNGS/CHEST: Decreased AE bilterally, rhonchorus ABD: SOFT, NONDISTENDED GBS, NO REBOUND OR GUARDING MSK: Spontaneous movement of extremities NEURO: Doesn't follow commands, spontaneous eye opening Extremities- Bilateral lower extremity edema Vital Signs - 12hr 09/02/16 09/02/16 09/02/16 23:15 23:30 23:45 Temperature Pulse Rate 72 74 70 Pulse Rate [ Bilateral Throughout] Pulse Rate [ From Monitor] Respiratory 23 17 12 Rate Respiratory Rate [Bilateral Throughout] Blood Pressure 104/54 95/53 103/55 O2 Sat by Pulse 99 98 99 Oximetry 09/03/16 09/03/16 09/03/16 00:00 00:15 00:30 Temperature Pulse Rate 71 72 69 Pulse Rate [ Bilateral Throughout] Pulse Rate [ 69 From Monitor] Respiratory 20 18 14 Rate Respiratory Rate [Bilateral Throughout] Blood Pressure 105/55 101/55 105/54 O2 Sat by Pulse 99 99 99 Oximetry 09/03/16 09/03/16 09/03/16 00:45 01:00 01:15 Temperature Pulse Rate 72 74 71 Pulse Rate [ Bilateral Throughout] Pulse Rate [ From Monitor] Respiratory 8 L 19 23 Rate Respiratory Rate [Bilateral Throughout] Blood Pressure 106/57 100/54 105/54 O2 Sat by Pulse 99 99 99 Oximetry 09/03/16 09/03/16 09/03/16 01:30 01:45 02:00 Temperature Pulse Rate 73 72 75 Pulse Rate [ Bilateral Throughout] Pulse Rate [ From Monitor] Respiratory 30 H 30 H 20 Rate Respiratory Rate [Bilateral Throughout] Blood Pressure 105/59 107/62 106/58 O2 Sat by Pulse 96 99 99 Oximetry 09/03/16 09/03/16 09/03/16 02:15 02:30 02:31 Temperature Pulse Rate 74 78 Pulse Rate [ 73 Bilateral Throughout] Pulse Rate [ From Monitor] Respiratory 18 10 L Rate Respiratory 19 Rate [Bilateral Throughout] Blood Pressure 109/53 105/55 O2 Sat by Pulse 100 98 Oximetry 09/03/16 09/03/16 09/03/16 02:45 02:46 03:00 Temperature Pulse Rate 77 79 Pulse Rate [ 75 Bilateral Throughout] Pulse Rate [ From Monitor] Respiratory 21 20 Rate Respiratory 19 Rate [Bilateral Throughout] Blood Pressure 106/58 106/58 O2 Sat by Pulse 100 Oximetry 09/03/16 09/03/16 09/03/16 03:15 03:30 03:45 Temperature Pulse Rate 74 76 80 Pulse Rate [ Bilateral Throughout] Pulse Rate [ From Monitor] Respiratory 19 24 31 H Rate Respiratory Rate [Bilateral Throughout] Blood Pressure 103/52 100/51 108/53 O2 Sat by Pulse 99 98 99 Oximetry 09/03/16 09/03/16 09/03/16 03:46 04:00 04:15 Temperature 96.0 F L Pulse Rate 79 78 79 Pulse Rate [ Bilateral Throughout] Pulse Rate [ From Monitor] Respiratory 21 24 Rate Respiratory Rate [Bilateral Throughout] Blood Pressure 106/53 108/54 O2 Sat by Pulse 98 99 Oximetry 09/03/16 09/03/16 09/03/16 04:30 04:45 05:00 Temperature Pulse Rate 80 71 80 Pulse Rate [ Bilateral Throughout] Pulse Rate [ 80 From Monitor] Respiratory 18 19 16 Rate Respiratory Rate [Bilateral Throughout] Blood Pressure 103/55 100/48 99/55 O2 Sat by Pulse 99 Oximetry 09/03/16 09/03/16 09/03/16 05:15 05:30 05:45 Temperature Pulse Rate 77 79 85 Pulse Rate [ Bilateral Throughout] Pulse Rate [ From Monitor] Respiratory 26 H 18 28 H Rate Respiratory Rate [Bilateral Throughout] Blood Pressure 109/53 98/53 108/54 O2 Sat by Pulse 99 99 97 Oximetry 09/03/16 09/03/16 09/03/16 06:00 06:15 06:30 Temperature Pulse Rate 82 84 86 Pulse Rate [ Bilateral Throughout] Pulse Rate [ From Monitor] Respiratory 20 21 27 H Rate Respiratory Rate [Bilateral Throughout] Blood Pressure 103/55 106/51 104/52 O2 Sat by Pulse 97 97 Oximetry 09/03/16 09/03/16 09/03/16 06:45 07:00 07:15 Temperature Pulse Rate 78 84 85 Pulse Rate [ Bilateral Throughout] Pulse Rate [ From Monitor] Respiratory 26 H 22 24 Rate Respiratory Rate [Bilateral Throughout] Blood Pressure 105/52 109/53 105/55 O2 Sat by Pulse 98 Oximetry 09/03/16 09/03/16 09/03/16 07:30 07:45 07:49 Temperature Pulse Rate 87 85 85 Pulse Rate [ Bilateral Throughout] Pulse Rate [ From Monitor] Respiratory 28 H 25 H Rate Respiratory Rate [Bilateral Throughout] Blood Pressure 107/55 107/55 107/55 O2 Sat by Pulse 97 99 Oximetry 09/03/16 09/03/16 09/03/16 07:50 07:55 08:00 Temperature 97.6 F Pulse Rate 82 Pulse Rate [ 84 Bilateral Throughout] Pulse Rate [ From Monitor] Respiratory 27 H Rate Respiratory 27 H Rate [Bilateral Throughout] Blood Pressure 105/55 O2 Sat by Pulse Oximetry 09/03/16 09/03/16 09/03/16 08:15 08:30 08:45 Temperature Pulse Rate 85 76 81 Pulse Rate [ Bilateral Throughout] Pulse Rate [ From Monitor] Respiratory 28 H 29 H 24 Rate Respiratory Rate [Bilateral Throughout] Blood Pressure 112/54 104/45 103/54 O2 Sat by Pulse 98 98 Oximetry 09/03/16 09/03/16 09/03/16 09:00 09:15 09:30 Temperature Pulse Rate 87 84 85 Pulse Rate [ Bilateral Throughout] Pulse Rate [ From Monitor] Respiratory 26 H 29 H 20 Rate Respiratory Rate [Bilateral Throughout] Blood Pressure 110/57 104/54 96/53 O2 Sat by Pulse 97 98 Oximetry 09/03/16 09/03/16 09/03/16 09:45 10:00 10:15 Temperature Pulse Rate 86 82 84 Pulse Rate [ Bilateral Throughout] Pulse Rate [ From Monitor] Respiratory 24 22 29 H Rate Respiratory Rate [Bilateral Throughout] Blood Pressure 100/56 99/52 95/50 O2 Sat by Pulse 98 Oximetry 09/03/16 09/03/16 10:30 10:45 Temperature Pulse Rate 88 90 Pulse Rate [ Bilateral Throughout] Pulse Rate [ From Monitor] Respiratory 26 H 30 H Rate Respiratory Rate [Bilateral Throughout] Blood Pressure 97/50 103/52 O2 Sat by Pulse 96 Oximetry CBC and BMP: 09/03/16 04:10 09/03/16 04:10 ABG, PT/INR, D-dimer: ABG POC ABG pH 7.426 (7.35-7.45) 09/03/16 04:04 POC ABG pCO2 36.9 (35-45) 09/03/16 04:04 POC ABG pO2 86 (80-105) 09/03/16 04:04 POC ABG HCO3 24.3 09/03/16 04:04 POC ABG Total CO2 25 09/03/16 04:04 POC ABG O2 Sat 97 09/03/16 04:04 PT/INR, D-dimer PT 17.6 Sec. (12.2-14.9) H 09/03/16 04:10 INR 1.45 (0.87-1.13) H 09/03/16 04:10 Abnormal lab findings: Abnormal Labs 08/29/16 08/30/16 08/30/16 21:59 00:16 05:39 WBC RBC Hgb Hct MCH MCHC RDW Seg Neutrophils % Seg Neuts % (Manual) Nucleated RBC % Seg Neutrophils # Seg Neutrophils # Man PT INR POC ABG pH POC ABG pO2 Sodium Carbon Dioxide Creatinine Glucose POC Glucose 106 H 128 H Lactic Acid Calcium Total Bilirubin AST Alkaline Phosphatase Ammonia Troponin T C-Reactive Protein Total Protein Albumin Prealbumin 0.120 L 08/30/16 08/30/16 08/30/16 10:30 10:30 11:12 WBC 11.1 H RBC 3.16 L Hgb 8.7 L Hct 29.9 L MCH MCHC 29 L RDW 25.0 H Seg Neutrophils % 78.6 H Seg Neuts % (Manual) Nucleated RBC % Seg Neutrophils # 8.7 H Seg Neutrophils # Man PT INR POC ABG pH POC ABG pO2 Sodium 135 L Carbon Dioxide 20 L Creatinine 1.5 H Glucose 148 H POC Glucose 142 H Lactic Acid Calcium 7.2 L Total Bilirubin 1.30 H AST 143 H Alkaline Phosphatase 392 H Ammonia Troponin T C-Reactive Protein Total Protein 6.1 L Albumin 1.2 L Prealbumin 08/30/16 08/30/16 08/30/16 17:41 18:03 18:18 WBC RBC Hgb Hct MCH MCHC RDW Seg Neutrophils % Seg Neuts % (Manual) Nucleated RBC % Seg Neutrophils # Seg Neutrophils # Man PT INR POC ABG pH 7.316 L POC ABG pO2 44 L 59 L Sodium Carbon Dioxide Creatinine Glucose POC Glucose 150 H Lactic Acid Calcium Total Bilirubin AST Alkaline Phosphatase Ammonia Troponin T C-Reactive Protein Total Protein Albumin Prealbumin 08/30/16 08/30/16 08/31/16 22:20 22:20 00:11 WBC RBC Hgb Hct MCH MCHC RDW Seg Neutrophils % Seg Neuts % (Manual) Nucleated RBC % Seg Neutrophils # Seg Neutrophils # Man PT INR POC ABG pH POC ABG pO2 Sodium Carbon Dioxide Creatinine Glucose POC Glucose 133 H Lactic Acid 2.30 H* Calcium Total Bilirubin AST Alkaline Phosphatase Ammonia Troponin T C-Reactive Protein 10.20 H Total Protein Albumin Prealbumin 08/31/16 08/31/16 08/31/16 04:20 04:20 04:20 WBC 18.3 H RBC 3.19 L Hgb 8.8 L Hct 30.0 L MCH 27 L MCHC 29 L RDW 23.9 H Seg Neutrophils % Seg Neuts % (Manual) Nucleated RBC % Seg Neutrophils # Seg Neutrophils # Man PT 16.8 H INR 1.37 H POC ABG pH POC ABG pO2 Sodium 136 L Carbon Dioxide 19 L Creatinine 1.5 H Glucose 125 H POC Glucose Lactic Acid Calcium 7.0 L Total Bilirubin 1.50 H AST 131 H Alkaline Phosphatase 431 H Ammonia Troponin T C-Reactive Protein Total Protein 6.2 L Albumin 1.2 L Prealbumin 08/31/16 08/31/16 08/31/16 04:20 05:22 05:24 WBC RBC Hgb Hct MCH MCHC RDW Seg Neutrophils % Seg Neuts % (Manual) Nucleated RBC % Seg Neutrophils # Seg Neutrophils # Man PT INR POC ABG pH POC ABG pO2 142 H Sodium Carbon Dioxide Creatinine Glucose POC Glucose 123 H Lactic Acid Calcium Total Bilirubin AST Alkaline Phosphatase Ammonia 70.0 H Troponin T C-Reactive Protein Total Protein Albumin Prealbumin 08/31/16 08/31/16 08/31/16 12:10 15:45 17:38 WBC RBC Hgb Hct MCH MCHC RDW Seg Neutrophils % Seg Neuts % (Manual) Nucleated RBC % Seg Neutrophils # Seg Neutrophils # Man PT INR POC ABG pH POC ABG pO2 Sodium 136 L Carbon Dioxide 21 L Creatinine 1.5 H Glucose 160 H POC Glucose 147 H 151 H Lactic Acid Calcium 6.9 L Total Bilirubin AST Alkaline Phosphatase Ammonia Troponin T 0.109 H* D C-Reactive Protein Total Protein Albumin Prealbumin 09/01/16 09/01/16 09/01/16 00:09 04:00 04:00 WBC 14.8 H RBC 2.89 L Hgb 7.8 L Hct 27.2 L MCH 27 L MCHC 29 L RDW 24.4 H Seg Neutrophils % Seg Neuts % (Manual) Nucleated RBC % Seg Neutrophils # Seg Neutrophils # Cristian PT 18.2 H INR 1.51 H POC ABG pH POC ABG pO2 Sodium Carbon Dioxide Creatinine Glucose POC Glucose 192 H Lactic Acid Calcium Total Bilirubin AST Alkaline Phosphatase Ammonia Troponin T C-Reactive Protein Total Protein Albumin Prealbumin 09/01/16 09/01/16 09/01/16 04:00 05:28 11:28 WBC RBC Hgb Hct MCH MCHC RDW Seg Neutrophils % Seg Neuts % (Manual) Nucleated RBC % Seg Neutrophils # Seg Neutrophils # Man PT INR POC ABG pH POC ABG pO2 Sodium Carbon Dioxide 20 L Creatinine 1.6 H Glucose 183 H POC Glucose 189 H 207 H Lactic Acid Calcium 6.9 L Total Bilirubin 1.30 H AST 138 H Alkaline Phosphatase 520 H Ammonia Troponin T C-Reactive Protein Total Protein 6.1 L Albumin 1.2 L Prealbumin 09/01/16 09/01/16 09/02/16 16:56 23:49 05:00 WBC RBC Hgb Hct MCH MCHC RDW Seg Neutrophils % Seg Neuts % (Manual) Nucleated RBC % Seg Neutrophils # Seg Neutrophils # Man PT 18.0 H INR 1.49 H POC ABG pH POC ABG pO2 Sodium Carbon Dioxide Creatinine Glucose POC Glucose 250 H 307 H Lactic Acid Calcium Total Bilirubin AST Alkaline Phosphatase Ammonia Troponin T C-Reactive Protein Total Protein Albumin Prealbumin 09/02/16 09/02/16 09/02/16 05:00 05:00 05:45 WBC 12.3 H RBC 2.57 L Hgb 7.1 L Hct 23.4 L MCH MCHC RDW 23.9 H Seg Neutrophils % Seg Neuts % (Manual) 72.0 H Nucleated RBC % 25.0 H Seg Neutrophils # Seg Neutrophils # Man 8.9 H PT INR POC ABG pH POC ABG pO2 Sodium Carbon Dioxide Creatinine 1.4 H Glucose 299 H POC Glucose 327 H Lactic Acid Calcium 7.0 L Total Bilirubin AST Alkaline Phosphatase Ammonia Troponin T C-Reactive Protein Total Protein Albumin Prealbumin 09/02/16 09/02/16 09/02/16 12:22 17:22 23:24 WBC RBC Hgb Hct MCH MCHC RDW Seg Neutrophils % Seg Neuts % (Manual) Nucleated RBC % Seg Neutrophils # Seg Neutrophils # Man PT INR POC ABG pH POC ABG pO2 Sodium Carbon Dioxide Creatinine Glucose POC Glucose 310 H 358 H 286 H Lactic Acid Calcium Total Bilirubin AST Alkaline Phosphatase Ammonia Troponin T C-Reactive Protein Total Protein Albumin Prealbumin 09/03/16 09/03/16 09/03/16 04:10 04:10 04:10 WBC 11.8 H RBC 2.29 L Hgb 6.1 L Hct 21.0 L MCH 27 L MCHC 29 L RDW 24.1 H Seg Neutrophils % Seg Neuts % (Manual) Nucleated RBC % Seg Neutrophils # Seg Neutrophils # Man PT 17.6 H INR 1.45 H POC ABG pH POC ABG pO2 Sodium Carbon Dioxide Creatinine 1.4 H Glucose 301 H POC Glucose Lactic Acid Calcium 7.0 L Total Bilirubin AST Alkaline Phosphatase Ammonia Troponin T C-Reactive Protein Total Protein Albumin Prealbumin 09/03/16 05:59 WBC RBC Hgb Hct MCH MCHC RDW Seg Neutrophils % Seg Neuts % (Manual) Nucleated RBC % Seg Neutrophils # Seg Neutrophils # Man PT INR POC ABG pH POC ABG pO2 Sodium Carbon Dioxide Creatinine Glucose POC Glucose 351 H Lactic Acid Calcium Total Bilirubin AST Alkaline Phosphatase Ammonia Troponin T C-Reactive Protein Total Protein Albumin Prealbumin Allied health notes reviewed: RT
--- NOTE | 2016-09-03 12:38 | Progress Note ---
Assessment and Plan Altered mental status Acute respiratory failure intubated on the vent Lactic acidosis Anemia requiring blood transfusion Obesity Decubitus ulcer Septic shock Conservative cardiac management. Subjective Date of service: 09/03/16 Interval history: Patient remains intubated on the vent. No event on monitoring specialist. Objective Vital Signs Temp Pulse Pulse Pulse Resp Resp BP 09/03/16 12:24 84 110/55 09/03/16 12:00 98.0 F 09/03/16 11:15 89 30 H 94/45 09/03/16 11:00 88 27 H 96/48 09/03/16 10:45 90 30 H 103/52 09/03/16 10:30 88 26 H 97/50 09/03/16 10:15 84 29 H 95/50 09/03/16 10:00 82 22 99/52 09/03/16 09:45 86 24 100/56 09/03/16 09:30 85 20 96/53 09/03/16 09:15 84 29 H 104/54 09/03/16 09:00 87 26 H 110/57 09/03/16 08:45 81 24 103/54 09/03/16 08:30 76 29 H 104/45 09/03/16 08:15 85 28 H 112/54 09/03/16 08:00 82 27 H 105/55 09/03/16 07:55 84 27 H 09/03/16 07:50 97.6 F 09/03/16 07:49 85 107/55 09/03/16 07:45 85 25 H 107/55 09/03/16 07:30 87 28 H 107/55 09/03/16 07:15 85 24 105/55 09/03/16 07:00 84 22 109/53 09/03/16 06:45 78 26 H 105/52 09/03/16 06:30 86 27 H 104/52 09/03/16 06:15 84 21 106/51 09/03/16 06:00 82 20 103/55 09/03/16 05:45 85 28 H 108/54 09/03/16 05:30 79 18 98/53 09/03/16 05:15 77 26 H 109/53 09/03/16 05:00 80 16 99/55 09/03/16 04:45 71 19 100/48 09/03/16 04:30 80 80 18 103/55 09/03/16 04:15 79 24 108/54 09/03/16 04:00 96.0 F L 78 21 106/53 09/03/16 03:46 79 09/03/16 03:45 80 31 H 108/53 09/03/16 03:30 76 24 100/51 09/03/16 03:15 74 19 103/52 09/03/16 03:00 79 20 106/58 09/03/16 02:46 75 19 09/03/16 02:45 77 21 106/58 09/03/16 02:31 73 19 09/03/16 02:30 78 10 L 105/55 09/03/16 02:15 74 18 109/53 09/03/16 02:00 75 20 106/58 09/03/16 01:45 72 30 H 107/62 09/03/16 01:30 73 30 H 105/59 09/03/16 01:15 71 23 105/54 09/03/16 01:00 74 19 100/54 09/03/16 00:45 72 8 L 106/57 09/03/16 00:30 69 69 14 105/54 09/03/16 00:15 72 18 101/55 09/03/16 00:00 71 20 105/55 09/02/16 23:45 70 12 103/55 09/02/16 23:30 74 17 95/53 09/02/16 23:15 72 23 104/54 09/02/16 23:09 81 104/53 09/02/16 23:00 76 21 96/56 09/02/16 22:45 75 11 L 104/53 05 22:30 76 31 H 114/56 09/02/16 22:15 75 22 106/55 05 22:00 72 23 105/51 05 21:45 74 24 91/44 0517 21:30 75 21 108/41 05 21:15 73 24 96/53 05 21:00 76 19 101/54 09/02/16 20:45 73 21 95/53 05 20:30 77 77 19 90/49 0517 20:15 77 33 H 94/49 05 20:01 76 16 103/81 09/02/16 20:00 96.0 F L 09/02/16 19:45 77 15 109/55 09/02/16 19:35 83 25 H 09/02/16 19:30 78 26 H 103/55 09/02/16 19:19 81 25 H 09/02/16 19:15 78 20 108/52 09/02/16 19:12 77 100/52 09/02/16 19:00 75 19 100/52 09/02/16 18:45 78 20 95/49 09/02/16 18:30 73 24 110/53 09/02/16 18:15 69 18 106/55 09/02/16 18:11 74 17 108/52 09/02/16 18:01 83 19 108/52 09/02/16 17:51 77 17 119/64 09/02/16 17:41 78 15 117/63 09/02/16 17:30 81 28 H 117/63 09/02/16 17:21 82 16 114/57 09/02/16 17:11 80 27 H 120/64 09/02/16 17:00 80 26 H 120/64 09/02/16 16:51 78 21 118/61 09/02/16 16:41 79 27 H 95/56 09/02/16 16:30 79 26 H 114/62 09/02/16 16:21 77 26 H 89/56 09/02/16 16:14 77 19 95/56 09/02/16 16:11 75 24 95/56 09/02/16 16:00 77 23 95/56 09/02/16 15:51 75 27 H 109/56 09/02/16 15:41 75 26 H 116/59 09/02/16 15:30 67 25 H 116/59 09/02/16 15:21 77 27 H 104/59 09/02/16 15:11 77 30 H 115/57 09/02/16 15:00 74 31 H 115/57 09/02/16 14:59 72 20 09/02/16 14:51 74 25 H 112/56 09/02/16 14:41 72 15 115/57 09/02/16 14:30 73 28 H 115/57 09/02/16 14:21 72 27 H 109/58 09/02/16 14:11 70 29 H 120/57 09/02/16 14:09 72 28 H 120/57 09/02/16 14:08 71 18 09/02/16 14:00 69 26 H 120/57 09/02/16 13:51 69 23 121/59 09/02/16 13:41 67 16 115/59 09/02/16 13:30 65 22 115/59 09/02/16 13:21 60 18 114/58 09/02/16 13:10 69 25 H 115/59 09/02/16 13:00 66 26 H 118/58 09/02/16 12:51 68 22 110/57 09/02/16 12:41 71 32 H 112/59 Pulse Ox 09/03/16 12:24 100 09/03/16 12:00 09/03/16 11:15 09/03/16 11:00 95 09/03/16 10:45 96 09/03/16 10:30 09/03/16 10:15 98 09/03/16 10:00 09/03/16 09:45 09/03/16 09:30 98 09/03/16 09:15 97 09/03/16 09:00 09/03/16 08:45 98 09/03/16 08:30 98 09/03/16 08:15 09/03/16 08:00 09/03/16 07:55 09/03/16 07:50 09/03/16 07:49 99 09/03/16 07:45 97 09/03/16 07:30 09/03/16 07:15 09/03/16 07:00 09/03/16 06:45 98 09/03/16 06:30 97 09/03/16 06:15 97 09/03/16 06:00 09/03/16 05:45 97 09/03/16 05:30 99 09/03/16 05:15 99 09/03/16 05:00 09/03/16 04:45 09/03/16 04:30 99 09/03/16 04:15 99 09/03/16 04:00 98 09/03/16 03:46 09/03/16 03:45 99 09/03/16 03:30 98 09/03/16 03:15 99 09/03/16 03:00 100 09/03/16 02:46 09/03/16 02:45 09/03/16 02:31 09/03/16 02:30 98 09/03/16 02:15 100 09/03/16 02:00 99 09/03/16 01:45 99 09/03/16 01:30 96 09/03/16 01:15 99 09/03/16 01:00 99 09/03/16 00:45 99 09/03/16 00:30 99 09/03/16 00:15 99 09/03/16 00:00 99 09/02/16 23:45 99 09/02/16 23:30 98 09/02/16 23:15 99 09/02/16 23:09 100 09/02/16 23:00 100 09/02/16 22:45 100 09/02/16 22:30 98 09/02/16 22:15 100 09/02/16 22:00 100 09/02/16 21:45 99 09/02/16 21:30 100 09/02/16 21:15 93 09/02/16 21:00 100 09/02/16 20:45 100 09/02/16 20:30 98 09/02/16 20:15 99 09/02/16 20:01 09/02/16 20:00 09/02/16 19:45 99 09/02/16 19:35 09/02/16 19:30 99 09/02/16 19:19 09/02/16 19:15 100 09/02/16 19:12 97 09/02/16 19:00 99 09/02/16 18:45 99 09/02/16 18:30 100 09/02/16 18:15 100 09/02/16 18:11 100 09/02/16 18:01 98 09/02/16 17:51 98 09/02/16 17:41 100 09/02/16 17:30 98 09/02/16 17:21 100 09/02/16 17:11 99 09/02/16 17:00 99 09/02/16 16:51 100 09/02/16 16:41 100 17 16:30 100 17 16:21 100 17 16:14 100 17 16:11 100 09/02/16 16:00 100 05/24/17 15:51 09/02/16 15:41 09/02/16 15:30 09/02/16 15:21 09/02/16 15:11 09/02/16 15:00 09/02/16 14:59 09/02/16 14:51 09/02/16 14:41 09/02/16 14:30 09/02/16 14:21 09/02/16 14:11 09/02/16 14:09 09/02/16 14:08 09/02/16 14:00 09/02/16 13:51 09/02/16 13:41 09/02/16 13:30 09/02/16 13:21 09/02/16 13:10 09/02/16 13:00 09/02/16 12:51 09/02/16 12:41 100 - Physical Examination General: Other (intubated on the vent) Cardiac: Positive: Reg Rate and Rhythm - Labs and Meds Coagulation 09/03/16 Range/Units 04:10 PT 17.6 H (12.2-14.9) Sec. INR 1.45 H (0.87-1.13) CBC 09/03/16 Range/Units 04:10 WBC 11.8 H (4.5-11.0) K/mm3 RBC 2.29 L (3.65-5.03) M/mm3 Hgb 6.1 L (10.1-14.3) gm/dl Hct 21.0 L (30.3-42.9) % Plt Count 186 (140-440) K/mm3 Comprehensive Metabolic Panel 09/03/16 Range/Units 04:10 Sodium 140 (137-145) mmol/L Potassium 4.0 (3.6-5.0) mmol/L Chloride 102.2 (98-107) mmol/L Carbon Dioxide 23 (22-30) mmol/L BUN 11 (7-17) mg/dL Creatinine 1.4 H (0.7-1.2) mg/dL Glucose 301 H (65-100) mg/dL Calcium 7.0 L (8.4-10.2) mg/dL - Allied health notes Allied health notes reviewed: RT
[2016-09-03] MEDS: LASIX IV SCH ×2 (13:01→22:07)
[2016-09-03] MEDS: NULECIT 125 MG in NACL 0.9% 100 ML IV SCH (14:15)
--- NOTE | 2016-09-03 15:07 | Progress Note ---
Assessment and Plan Assessment and plan: Patient is a 61-year-old morbidly obese woman with a past medical history of congestive heart failure, severe protein calorie malnutrition with BMI of 81.6, functional quadriplegia, type 2 diabetes mellitus, hypertension, multiple skin breakdown between legs and thighs who presented to the hospital via EMS with AMS. 2D echocardiogram with ejection fraction of 50-55%. During the past admission patient was recommended for placement but refused. On presentation patient was felt to be unable to maintain airway and intubated the ER. Acute toxic metabolic encephalopathy Acute on chronic diastolic congestive heart failure: Cardiology is following, diuresis Acute on chronic respiratory failure, intubated Septic shock on Levaphed: Weaning attempts Hypercoagulable state Severe anemia s/p blood transfusion: monitor cbc closely Mitral stenosis Paroxysmal atrial fibrillation Non-ST elevated AR: Cardiology is following, conservative management Acute on chronic kidney disease likely secondary to vasomotor nephropathy-POA Transaminitis-elevated alkaline phosphatase and AST: continue to monitor Severe protein calorie malnutrition albumin 1.2 Morbid obesity BMI 81.6 Mulitple PRESSURE ULCERS-POA: consulted wound care New issues: uncontrolled dm: increase ssi and wean down iv steroids. restraints renewed drop in HCT, ordered am labs Levaphed still at 3 mcg Unable to get CT head due to weight issues Patient is currently not on sedation. Pupils are STILL pinpoint so prior sedative medications are probably still active in her system, she spontaneously opened her eyes today. Still not following commands Family to bring in old records History Interval history: Patient seen and examined. Follow up on respiratory failure. Patient still intubated. Overnight uneventful. No cp, sob, n/v or severe headaches. Imaging, old records, testing, labs, nursing notes reviewed. Hospitalist Physical - Physical exam Narrative exam: GEN: Critically ill, morbid obese BMI 81.6, intubated HEENT: Pupils are pinpoint and reactive, ET tube in place NECK: SUPPLE, NO THYROMEGALY, NO JVD, NO LAD CVS: regular irregular NORMAL S1S2 LUNGS/CHEST: TA B, NORMAL CHEST EXPANSION B, GOOD AIR ENTRY B ABD: SOFT, NONDISTENDED GBS, NO REBOUND OR GUARDING MSK: Spontaneous movement of extremities NEURO: CN 2-12 GROSSLY INTACT, doesn't follow commands PSY: Confused - Constitutional Vitals: Temp Pulse Resp BP Pulse Ox 98.0 F 90 29 H 109/59 98 09/03/16 12:00 09/03/16 14:00 09/03/16 14:00 09/03/16 14:00 09/03/16 13:45 General appearance: Present: other (intubated on the vent) Results - Labs CBC & Chem 7: 09/03/16 04:10 09/03/16 04:10 Labs: Laboratory Last Values WBC 11.8 K/mm3 (4.5-11.0) H 09/03/16 04:10 RBC 2.29 M/mm3 (3.65-5.03) L 09/03/16 04:10 Hgb 6.1 gm/dl (10.1-14.3) L 09/03/16 04:10 Hct 21.0 % (30.3-42.9) L 09/03/16 04:10 MCV 92 fl (79-97) 09/03/16 04:10 MCH 27 pg (28-32) L 09/03/16 04:10 MCHC 29 % (30-34) L 09/03/16 04:10 RDW 24.1 % (13.2-15.2) H 09/03/16 04:10 Plt Count 186 K/mm3 (140-440) 09/03/16 04:10 Lymph % (Auto) 15.6 % (13.4-35.0) 08/30/16 10:30 [place] % (Auto) 5.1 % (0.0-7.3) 08/30/16 10:30 Eos % (Auto) 0.6 % (0.0-4.3) 08/30/16 10:30 Baso % (Auto) 0.1 % (0.0-1.8) 08/30/16 10:30 Lymph # 1.7 K/mm3 (1.2-5.4) 08/30/16 10:30 [place] # 0.6 K/mm3 (0.0-0.8) 08/30/16 10:30 Eos # 0.1 K/mm3 (0.0-0.4) 08/30/16 10:30 Baso # 0.0 K/mm3 (0.0-0.1) 08/30/16 10:30 Add Manual Diff Complete 09/02/16 05:00 Total Counted 100 09/02/16 05:00 Seg Neutrophils % 78.6 % (40.0-70.0) H 08/30/16 10:30 Seg Neuts % (Manual) 72.0 % (40.0-70.0) H 09/02/16 05:00 Band Neutrophils % 9.0 % 09/02/16 05:00 Lymphocytes % (Manual) 15.0 % (13.4-35.0) 09/02/16 05:00 Reactive Lymphs % (Man) 0 % 09/02/16 05:00 Monocytes % (Manual) 4.0 % (0.0-7.3) 09/02/16 05:00 Eosinophils % (Manual) 0 % (0.0-4.3) 09/02/16 05:00 Basophils % (Manual) 0 % (0.0-1.8) 09/02/16 05:00 Metamyelocytes % 0 % 09/02/16 05:00 Myelocytes % 0 % 09/02/16 05:00 Promyelocytes % 0 % 09/02/16 05:00 Blast Cells % 0 % 09/02/16 05:00 Nucleated RBC % 25.0 % (0.0-0.9) H 09/02/16 05:00 Seg Neutrophils # 8.7 K/mm3 (1.8-7.7) H 08/30/16 10:30 Seg Neutrophils # Man 8.9 K/mm3 (1.8-7.7) H 09/02/16 05:00 Band Neutrophils # 1.1 K/mm3 09/02/16 05:00 Lymphocytes # (Manual) 1.8 K/mm3 (1.2-5.4) 09/02/16 05:00 Abs React Lymphs (Man) 0.0 K/mm3 09/02/16 05:00 Monocytes # (Manual) 0.5 K/mm3 (0.0-0.8) 09/02/16 05:00 Eosinophils # (Manual) 0.0 K/mm3 (0.0-0.4) 09/02/16 05:00 Basophils # (Manual) 0.0 K/mm3 (0.0-0.1) 09/02/16 05:00 Metamyelocytes # 0.0 K/mm3 09/02/16 05:00 Myelocytes # 0.0 K/mm3 09/02/16 05:00 Promyelocytes # 0.0 K/mm3 09/02/16 05:00 Blast Cells # 0.0 K/mm3 09/02/16 05:00 WBC Morphology Not Reportable 09/02/16 05:00 Hypersegmented Neuts Not Reportable 09/02/16 05:00 Hyposegmented Neuts Not Reportable 09/02/16 05:00 Hypogranular Neuts Not Reportable 09/02/16 05:00 Smudge Cells Not Reportable 09/02/16 05:00 Toxic Granulation Not Reportable 09/02/16 05:00 Toxic Vacuolation Not Reportable 09/02/16 05:00 Dohle Bodies Not Reportable 09/02/16 05:00 Pelger-Huet Anomaly Not Reportable 09/02/16 05:00 Feli Rods Not Reportable 09/02/16 05:00 Platelet Estimate Consistent w auto 09/02/16 05:00 Clumped Platelets Not Reportable 09/02/16 05:00 Plt Clumps, EDTA Not Reportable 09/02/16 05:00 Large Platelets Not Reportable 09/02/16 05:00 Giant Platelets Not Reportable 09/02/16 05:00 Platelet Satelliting Not Reportable 09/02/16 05:00 Plt Morphology Comment Not Reportable 09/02/16 05:00 RBC Morphology Not Reportable 09/02/16 05:00 Dimorphic RBCs Not Reportable 09/02/16 05:00 Polychromasia Rare 09/02/16 05:00 Hypochromasia Not Reportable 09/02/16 05:00 Poikilocytosis Not Reportable 09/02/16 05:00 Anisocytosis 1+ 09/02/16 05:00 Microcytosis Not Reportable 09/02/16 05:00 Macrocytosis 1+ 09/02/16 05:00 Spherocytes Not Reportable 09/02/16 05:00 Pappenheimer Bodies Not Reportable 09/02/16 05:00 Sickle Cells Not Reportable 09/02/16 05:00 Target Cells Not Reportable 09/02/16 05:00 Tear Drop Cells Not Reportable 09/02/16 05:00 Ovalocytes Not Reportable 09/02/16 05:00 Helmet Cells Not Reportable 09/02/16 05:00 [place] Bodies Not Reportable 09/02/16 05:00 [place] Rings Not Reportable 09/02/16 05:00 [place] Cells Not Reportable 09/02/16 05:00 Bite Cells Not Reportable 09/02/16 05:00 Crenated Cell Not Reportable 09/02/16 05:00 Elliptocytes Not Reportable 09/02/16 05:00 Acanthocytes (Spur) Not Reportable 09/02/16 05:00 Rouleaux Not Reportable 09/02/16 05:00 Hemoglobin C Crystals Not Reportable 09/02/16 05:00 Schistocytes Not Reportable 09/02/16 05:00 Malaria parasites Not Reportable 09/02/16 05:00 Manny Bodies Not Reportable 09/02/16 05:00 Hem Pathologist Commnt No 09/02/16 05:00 PT 17.6 Sec. (12.2-14.9) H 09/03/16 04:10 INR 1.45 (0.87-1.13) H 09/03/16 04:10 APTT 29.5 Sec. (24.2-36.6) 08/29/16 17:40 POC ABG pH 7.426 (7.35-7.45) 09/03/16 04:04 POC ABG pCO2 36.9 (35-45) 09/03/16 04:04 POC ABG pO2 86 (80-105) 09/03/16 04:04 POC ABG HCO3 24.3 09/03/16 04:04 POC ABG Total CO2 25 09/03/16 04:04 POC ABG O2 Sat 97 09/03/16 04:04 POC ABG Base Excess 0 09/03/16 04:04 VBG pH 7.366 (7.320-7.420) 08/29/16 17:40 FiO2 30 % 09/03/16 04:04 Sodium 140 mmol/L (137-145) 09/03/16 04:10 Potassium 4.0 mmol/L (3.6-5.0) 09/03/16 04:10 Chloride 102.2 mmol/L (98-107) 09/03/16 04:10 Carbon Dioxide 23 mmol/L (22-30) 09/03/16 04:10 Anion Gap 19 mmol/L 09/03/16 04:10 BUN 11 mg/dL (7-17) 09/03/16 04:10 Creatinine 1.4 mg/dL (0.7-1.2) H 09/03/16 04:10 Estimated GFR 46 ml/min 09/03/16 04:10 BUN/Creatinine Ratio 7.85 % 09/03/16 04:10 Glucose 301 mg/dL (65-100) H 09/03/16 04:10 POC Glucose 285 (70-105) H 09/03/16 11:36 Lactic Acid 1.90 mmol/L (0.7-2.0) 08/31/16 04:20 Calcium 7.0 mg/dL (8.4-10.2) L 09/03/16 04:10 Phosphorus 3.60 mg/dL (2.5-4.5) 08/29/16 21:59 Magnesium 1.80 mg/dL (1.7-2.3) 08/29/16 21:59 Total Bilirubin 1.30 mg/dL (0.1-1.2) H 09/01/16 04:00 AST 138 units/L (5-40) H 09/01/16 04:00 ALT 53 units/L (7-56) 09/01/16 04:00 Alkaline Phosphatase 520 units/L (35-129) H 09/01/16 04:00 Ammonia 70.0 umol/L (25-60) H 08/31/16 04:20 Total Creatine Kinase 28 units/L (30-135) L 08/29/16 17:40 CK-MB (CK-2) < 1.0 ng/mL (0.0-4.0) 08/29/16 17:40 CK-MB (CK-2) Rel Index 3.5 (0-4) 08/29/16 17:40 Troponin T 0.109 ng/mL (0.00-0.029) H* D 08/31/16 15:45 C-Reactive Protein 10.20 mg/dL (0.00-1.30) H 08/30/16 22:20 NT-Pro-B Natriuret Pep 1712 pg/mL (0-900) H 08/29/16 17:40 Total Protein 6.1 g/dL (6.3-8.2) L 09/01/16 04:00 Albumin 1.2 g/dL (3.9-5) L 09/01/16 04:00 Albumin/Globulin Ratio 0.2 % 09/01/16 04:00 Prealbumin 0.120 g/L (0.200-0.400) L 08/29/16 21:59 Triglycerides 225 mg/dL (2-149) H 08/29/16 17:40 Cholesterol 130 mg/dL (50-199) 08/29/16 17:40 LDL Cholesterol Direct 82 mg/dL (50-130) 08/29/16 17:40 HDL Cholesterol 3 mg/dL (40-59) L 08/29/16 17:40 Cholesterol/HDL Ratio 43.33 % 08/29/16 17:40 Urine Color Yellow (Yellow) 08/31/16 15:37 Urine Turbidity Clear (Clear) 08/31/16 15:37 Urine pH 5.0 (5.0-7.0) 08/31/16 15:37 Ur Specific [place] 1.009 (1.003-1.030) 08/31/16 15:37 Urine Protein <15 mg/dl mg/dL (Negative) 08/31/16 15:37 Urine Glucose (UA) Neg mg/dL (Negative) 08/31/16 15:37 Urine Ketones Neg mg/dL (Negative) 08/31/16 15:37 Urine Blood Sm (Negative) 08/31/16 15:37 Urine Nitrite Neg (Negative) 08/31/16 15:37 Urine Bilirubin Neg (Negative) 08/31/16 15:37 Urine Urobilinogen < 2.0 mg/dL (<2.0) 08/31/16 15:37 Ur Leukocyte Esterase Sm (Negative) 08/31/16 15:37 Urine WBC (Auto) 3.0 /HPF (0.0-6.0) 08/31/16 15:37 Urine RBC (Auto) 1.0 /HPF (0.0-6.0) 08/31/16 15:37 U Epithel Cells (Auto) < 1.0 /HPF (0-13.0) 08/31/16 15:37 Urine Bacteria (Auto) 1+ /HPF (Negative) 08/31/16 15:37 Hyaline Casts 5 /LPF 08/31/16 15:37 Urine Mucus Few /HPF 08/31/16 15:37 Blood Type O POSITIVE 08/29/16 18:15 Antibody Screen TNR 08/29/16 18:15 PATRICK Antibody Screen Negative 08/29/16 18:15 Crossmatch See Detail 08/29/16 18:15
[2016-09-03] MEDS: FOLVITE PO SCH (15:16)
[2016-09-03] MEDS: LEVOPHED DRIP 4 MG/NS 250 ML 4 MG/250 ML BAG IV SCH (20:48)
[2016-09-04] MEDS: DUONEB 0.5 MG-3 MG/3 ML SOLN IH SCH ×4 (02:02→19:35)
[2016-09-04 05:09] LABS: ISTAT Base Excess 4; ISTAT HCO3 26.6; ISTAT PCO2 30.8 (35-45); ISTAT PH 7.544 (7.35-7.45); ISTAT PO2 78 (80-105); ISTAT SO2 97; ISTAT TCO2 28
[2016-09-04] MEDS: ZOSYN/NS 4.5GM/100ML 4.5 GM/100 ML VIAL IV SCH ×3 (06:36→21:08)
[2016-09-04] MEDS: ZAROXOLYN PO SCH (06:43)
[2016-09-04] MEDS: LASIX IV SCH ×2 (06:44→13:31)
[2016-09-04 06:46] LABS: Hematocrit 20.1 % (30.3-42.9); Mean Corpuscular HGB Conc 30 % (30-34); Mean Corpuscular Hemoglobin 27 pg (28-32); Mean Corpuscular Volume 90 fl (79-97); Platelet Count 177 K/mm3 (140-440); Red Blood Count 2.22 M/mm3 (3.65-5.03)
[2016-09-04] MEDS: NOVOLOG SUB-Q SCH ×4 (06:46→18:15)
[2016-09-04 06:49] LABS: Red Cell Distribution Width 24.3 % (13.2-15.2)
[2016-09-04 06:54] LABS: INR 1.37 (0.87-1.13)
[2016-09-04 07:15] LABS: Calcium 7.1 mg/dL (8.4-10.2); Chloride 102.3 mmol/L (98-107); Potassium 4.9 mmol/L (3.6-5.0)
[2016-09-04] MEDS: LEVEMIR SUB-Q SCH (07:41)
[2016-09-04] MEDS: LEVOPHED DRIP 4 MG/NS 250 ML 4 MG/250 ML BAG IV SCH ×2 (07:43→23:30)
--- NOTE | 2016-09-04 08:19 | Progress Note ---
Assessment and Plan - Patient Problems (1) RORY (acute kidney injury) Current Visit: No Status: Acute Plan to address problem: Acute Kidney Injury is hemodynamically mediated in the setting of hypotension / shock. Renal function is stable. Continue current treatment. (2) Shock Current Visit: Yes Status: Acute Plan to address problem: On Levophed. (3) Respiratory failure Current Visit: Yes Status: Acute Qualifiers: Chronicity: C Respiratory failure complication: R Plan to address problem: On vent. (4) Altered mental status Current Visit: Yes Status: Acute Qualifiers: Altered mental status type: unspecified Coma depth: C Coma timing: C Qualified Code(s): R41.82 - Altered mental status, unspecified (5) Anemia Current Visit: Yes Status: Acute Qualifiers: Anemia type: unspecified type Iron deficiency anemia type: I Vitamin B12 deficiency anemia type: V Folate deficiency anemia type: F Bone marrow failure anemia type: B Hemolytic anemia type: H Other causes of anemia: O Qualified Code(s): D64.9 - Anemia, unspecified Plan to address problem: Family agreed for transfusion. Subjective Date of service: 09/04/16 Interval history: Patient remain on the vent. Objective - Vital Signs Vital signs: Vital Signs - 12hr 09/03/16 09/03/16 09/03/16 20:30 20:45 21:00 Temperature Pulse Rate 94 H 92 H 88 Pulse Rate [ Bilateral Throughout] Pulse Rate [ From Monitor] Respiratory 31 H 19 30 H Rate Respiratory Rate [Bilateral Throughout] Blood Pressure 106/55 106/53 104/53 O2 Sat by Pulse 100 99 Oximetry 09/03/16 09/03/16 09/03/16 21:15 21:30 21:45 Temperature Pulse Rate 92 H 89 90 Pulse Rate [ Bilateral Throughout] Pulse Rate [ From Monitor] Respiratory 29 H 27 H 28 H Rate Respiratory Rate [Bilateral Throughout] Blood Pressure 101/51 104/52 95/52 O2 Sat by Pulse 99 Oximetry 09/03/16 09/03/16 09/03/16 22:00 22:15 22:31 Temperature Pulse Rate 92 H 88 88 Pulse Rate [ Bilateral Throughout] Pulse Rate [ From Monitor] Respiratory 29 H 29 H 26 H Rate Respiratory Rate [Bilateral Throughout] Blood Pressure 87/51 110/59 108/54 O2 Sat by Pulse 98 98 97 Oximetry 09/03/16 09/03/16 09/03/16 22:45 23:00 23:05 Temperature Pulse Rate 87 86 87 Pulse Rate [ Bilateral Throughout] Pulse Rate [ From Monitor] Respiratory 29 H 30 H 30 H Rate Respiratory Rate [Bilateral Throughout] Blood Pressure 112/59 114/56 114/56 O2 Sat by Pulse 99 97 99 Oximetry 09/03/16 09/03/16 09/03/16 23:15 23:30 23:41 Temperature 98.6 F Pulse Rate 88 85 Pulse Rate [ Bilateral Throughout] Pulse Rate [ From Monitor] Respiratory 28 H 26 H Rate Respiratory Rate [Bilateral Throughout] Blood Pressure 114/54 114/60 O2 Sat by Pulse 97 98 Oximetry 09/03/16 09/04/16 09/04/16 23:45 00:00 00:04 Temperature Pulse Rate 87 85 85 Pulse Rate [ Bilateral Throughout] Pulse Rate [ 93 H From Monitor] Respiratory 24 29 H Rate Respiratory Rate [Bilateral Throughout] Blood Pressure 113/65 112/57 114/54 O2 Sat by Pulse 99 98 100 Oximetry 09/04/16 09/04/16 09/04/16 00:15 00:30 00:45 Temperature Pulse Rate 84 80 80 Pulse Rate [ Bilateral Throughout] Pulse Rate [ From Monitor] Respiratory 28 H 26 H 27 H Rate Respiratory Rate [Bilateral Throughout] Blood Pressure 111/53 101/52 106/50 O2 Sat by Pulse 100 100 99 Oximetry 09/04/16 09/04/16 09/04/16 01:00 01:15 01:30 Temperature Pulse Rate 83 81 81 Pulse Rate [ Bilateral Throughout] Pulse Rate [ From Monitor] Respiratory 28 H 27 H 28 H Rate Respiratory Rate [Bilateral Throughout] Blood Pressure 108/54 110/53 102/53 O2 Sat by Pulse 100 97 Oximetry 09/04/16 09/04/16 09/04/16 01:45 02:00 02:15 Temperature Pulse Rate 84 98 H Pulse Rate [ 88 85 Bilateral Throughout] Pulse Rate [ From Monitor] Respiratory 27 H 35 H Rate Respiratory 30 H 31 H Rate [Bilateral Throughout] Blood Pressure 112/57 114/63 O2 Sat by Pulse 100 Oximetry 09/04/16 09/04/16 09/04/16 02:16 02:30 02:45 Temperature Pulse Rate 91 H 85 80 Pulse Rate [ Bilateral Throughout] Pulse Rate [ From Monitor] Respiratory 25 H 20 29 H Rate Respiratory Rate [Bilateral Throughout] Blood Pressure 114/63 113/56 116/57 O2 Sat by Pulse 96 86 Oximetry 09/04/16 09/04/16 09/04/16 03:00 03:15 03:30 Temperature Pulse Rate 78 78 84 Pulse Rate [ Bilateral Throughout] Pulse Rate [ From Monitor] Respiratory 27 H 27 H 33 H Rate Respiratory Rate [Bilateral Throughout] Blood Pressure 106/58 108/57 116/63 O2 Sat by Pulse 96 100 Oximetry 09/04/16 09/04/16 09/04/16 03:45 04:00 04:06 Temperature 98.8 F Pulse Rate 81 81 Pulse Rate [ Bilateral Throughout] Pulse Rate [ 88 From Monitor] Respiratory 26 H 27 H Rate Respiratory Rate [Bilateral Throughout] Blood Pressure 109/59 110/58 O2 Sat by Pulse 98 98 Oximetry 09/04/16 09/04/16 09/04/16 04:15 04:30 04:45 Temperature Pulse Rate 83 81 83 Pulse Rate [ Bilateral Throughout] Pulse Rate [ From Monitor] Respiratory 25 H 24 25 H Rate Respiratory Rate [Bilateral Throughout] Blood Pressure 103/61 107/59 107/60 O2 Sat by Pulse 100 98 Oximetry 09/04/16 09/04/16 09/04/16 05:00 05:15 05:30 Temperature Pulse Rate 82 82 79 Pulse Rate [ Bilateral Throughout] Pulse Rate [ From Monitor] Respiratory 28 H 21 27 H Rate Respiratory Rate [Bilateral Throughout] Blood Pressure 114/57 112/54 108/57 O2 Sat by Pulse 97 96 97 Oximetry 09/04/16 09/04/16 09/04/16 05:45 06:00 06:15 Temperature Pulse Rate 82 80 81 Pulse Rate [ Bilateral Throughout] Pulse Rate [ From Monitor] Respiratory 27 H 17 18 Rate Respiratory Rate [Bilateral Throughout] Blood Pressure 110/51 114/53 107/52 O2 Sat by Pulse 97 96 97 Oximetry 09/04/16 09/04/16 09/04/16 06:30 06:45 07:00 Temperature Pulse Rate 79 81 82 Pulse Rate [ Bilateral Throughout] Pulse Rate [ From Monitor] Respiratory 19 28 H 22 Rate Respiratory Rate [Bilateral Throughout] Blood Pressure 115/53 112/54 114/50 O2 Sat by Pulse 99 97 98 Oximetry 09/04/16 09/04/16 09/04/16 07:15 07:30 07:51 Temperature 97.9 F Pulse Rate 82 80 Pulse Rate [ Bilateral Throughout] Pulse Rate [ From Monitor] Respiratory 29 H 29 H Rate Respiratory Rate [Bilateral Throughout] Blood Pressure 110/52 108/52 O2 Sat by Pulse 97 Oximetry - General Appearance General appearance: well-developed, well-nourished, appears stated age, intubated (FiO2 30%) EENT: ATNC, PERRL Neck: supple Respiratory: Present: Clear to Ascultation Cardiology: regular, S1S2, no murmurs Gastrointestinal: normoactive bowel sounds, no distended, obese Integumentary: no rash Neurologic: other (lethargic) Musculoskeletal: other (2+ edema of both LEs noted) - Lab 09/04/16 06:37 09/04/16 06:39 Most recent lab results Calcium 7.1 mg/dL (8.4-10.2) L 09/04/16 06:39 Phosphorus 3.60 mg/dL (2.5-4.5) 08/29/16 21:59 Magnesium 1.80 mg/dL (1.7-2.3) 08/29/16 21:59
--- NOTE | 2016-09-04 09:23 | Progress Note ---
Assessment and Plan - Patient Problems (1) Respiratory failure Current Visit: Yes Status: Acute Qualifiers: Chronicity: C Respiratory failure complication: R Plan to address problem: Currently on mechanical ventilatory support AC-VC 16/500/PEEP5/30% ABG 7.5/30/78/26/4.Continue with MVS VAP bundle addressed Wean FIO2 for O2 sats>92% HOB>40, aspiration precautions VTE prophylaxis- enoxaparin Stress ulcer prophylaxis- Pantoprazole Sedation/Analgesia- not requiring any sedation Lung protective strategies Daily spontaneous breathing rials as tolerated. Adjust minute ventilation for better gas-exchange. Continue with enteric feedings, monitor accucheck, glycemic control- keep blood glucose<180mg/dl (2) Shock Current Visit: Yes Status: Acute Plan to address problem: Treated as septic shock secondary to HCAP - Wean vasopressor support for MAP>65 Off vasopressor- discontinued this morning Cultures negative with worsening leukocytosis. Will get ID consult and start empiric metronidazole On steroid therapy for possible COPD with AE (3) Acute on chronic diastolic (congestive) heart failure Current Visit: No Status: Acute Plan to address problem: Documented EF 55% Increased diuretic while monitoring renal function and electrolyte profile closely Monitor urine output, electrolyte profile and electrolytes while on diuretics (4) Altered mental status Current Visit: Yes Status: Acute Qualifiers: Altered mental status type: unspecified Coma depth: C Coma timing: C Qualified Code(s): R41.82 - Altered mental status, unspecified Plan to address problem: Suspect this is metabolic/toxic encephalopathy . Neurology following. Seizure activity noted this morning. IV Lorazepam give. Keppra started. Neurology following (5) Morbid obesity Current Visit: Yes Status: Acute Qualifiers: Obesity type: unspecified obesity type Qualified Code(s): E66.01 - Morbid ( severe) obesity due to excess calories (6) Anemia Current Visit: Yes Status: Acute Qualifiers: Anemia type: unspecified type Iron deficiency anemia type: I Vitamin B12 deficiency anemia type: V Folate deficiency anemia type: F Bone marrow failure anemia type: B Hemolytic anemia type: H Other causes of anemia: O Qualified Code(s): D64.9 - Anemia, unspecified Plan to address problem: On IV iron therapy with supplements. As per admission documentation, the patient elects not to be transfused (7) Hyponatremia Current Visit: Yes Status: Acute Plan to address problem: Resolved. Continue to monitor closely and trend (8) Discharge planning issues Current Visit: Yes Status: Acute Plan to address problem: Needs leukocytosis addressed and recent seizure activity. Discussed with case management - will need LTACH Subjective Date of service: 09/04/16 Interval history: No acute overnight events. Boyfriend at the bedside. More awake today, though she still does not obey commands. Sedation has been discontinued. On empiric antibiotics for possible HCAP- will completed a 7 day course Remains orally intubated. Seen and examined. Vitals, labs, medications, chart and imaging reviewed. Discussed care at interdisciplinary rounds No acute overnight events, possible seizure activity this morning. During my evaluation- I witnessed one. EEG did not show any epileptiform discharge Objective - Exam Narrative Exam: GEN: Critically ill, morbid obese BMI 81.6, intubated HEENT: Pupils are pinpoint and reactive, ET tube in place NECK: SUPPLE, NO THYROMEGALY, NO JVD, NO LAD CVS: regular irregular NORMAL S1S2 LUNGS/CHEST: TA B, NORMAL CHEST EXPANSION B, GOOD AIR ENTRY B ABD: SOFT, NON DISTENDED GBS, NO REBOUND OR GUARDING MSK: Spontaneous movement of extremities NEURO: doesn't follow commands, seizure activity Vital Signs - 12hr 09/03/16 09/03/16 09/03/16 21:30 21:45 22:00 Temperature Pulse Rate 89 90 92 H Pulse Rate [ Anterior Bilateral Throughout] Pulse Rate [ Bilateral Throughout] Pulse Rate [ From Monitor] Respiratory 27 H 28 H 29 H Rate Respiratory Rate [Anterior Bilateral Throughout] Respiratory Rate [Bilateral Throughout] Blood Pressure 104/52 95/52 87/51 O2 Sat by Pulse 99 98 Oximetry 09/03/16 09/03/16 09/03/16 22:15 22:31 22:45 Temperature Pulse Rate 88 88 87 Pulse Rate [ Anterior Bilateral Throughout] Pulse Rate [ Bilateral Throughout] Pulse Rate [ From Monitor] Respiratory 29 H 26 H 29 H Rate Respiratory Rate [Anterior Bilateral Throughout] Respiratory Rate [Bilateral Throughout] Blood Pressure 110/59 108/54 112/59 O2 Sat by Pulse 98 97 99 Oximetry 09/03/16 09/03/16 09/03/16 23:00 23:05 23:15 Temperature Pulse Rate 86 87 88 Pulse Rate [ Anterior Bilateral Throughout] Pulse Rate [ Bilateral Throughout] Pulse Rate [ From Monitor] Respiratory 30 H 30 H 28 H Rate Respiratory Rate [Anterior Bilateral Throughout] Respiratory Rate [Bilateral Throughout] Blood Pressure 114/56 114/56 114/54 O2 Sat by Pulse 97 99 97 Oximetry 09/03/16 09/03/16 09/03/16 23:30 23:41 23:45 Temperature 98.6 F Pulse Rate 85 87 Pulse Rate [ Anterior Bilateral Throughout] Pulse Rate [ Bilateral Throughout] Pulse Rate [ From Monitor] Respiratory 26 H 24 Rate Respiratory Rate [Anterior Bilateral Throughout] Respiratory Rate [Bilateral Throughout] Blood Pressure 114/60 113/65 O2 Sat by Pulse 98 99 Oximetry 09/04/16 09/04/16 09/04/16 00:00 00:04 00:15 Temperature Pulse Rate 85 85 84 Pulse Rate [ Anterior Bilateral Throughout] Pulse Rate [ Bilateral Throughout] Pulse Rate [ 93 H From Monitor] Respiratory 29 H 28 H Rate Respiratory Rate [Anterior Bilateral Throughout] Respiratory Rate [Bilateral Throughout] Blood Pressure 112/57 114/54 111/53 O2 Sat by Pulse 98 100 100 Oximetry 09/04/16 09/04/16 09/04/16 00:30 00:45 01:00 Temperature Pulse Rate 80 80 83 Pulse Rate [ Anterior Bilateral Throughout] Pulse Rate [ Bilateral Throughout] Pulse Rate [ From Monitor] Respiratory 26 H 27 H 28 H Rate Respiratory Rate [Anterior Bilateral Throughout] Respiratory Rate [Bilateral Throughout] Blood Pressure 101/52 106/50 108/54 O2 Sat by Pulse 100 99 Oximetry 09/04/16 09/04/16 09/04/16 01:15 01:30 01:45 Temperature Pulse Rate 81 81 84 Pulse Rate [ Anterior Bilateral Throughout] Pulse Rate [ Bilateral Throughout] Pulse Rate [ From Monitor] Respiratory 27 H 28 H 27 H Rate Respiratory Rate [Anterior Bilateral Throughout] Respiratory Rate [Bilateral Throughout] Blood Pressure 110/53 102/53 112/57 O2 Sat by Pulse 100 97 Oximetry 09/04/16 09/04/16 09/04/16 02:00 02:15 02:16 Temperature Pulse Rate 98 H 91 H Pulse Rate [ Anterior Bilateral Throughout] Pulse Rate [ 88 85 Bilateral Throughout] Pulse Rate [ From Monitor] Respiratory 35 H 25 H Rate Respiratory Rate [Anterior Bilateral Throughout] Respiratory 30 H 31 H Rate [Bilateral Throughout] Blood Pressure 114/63 114/63 O2 Sat by Pulse 100 Oximetry 09/04/16 09/04/16 09/04/16 02:30 02:45 03:00 Temperature Pulse Rate 85 80 78 Pulse Rate [ Anterior Bilateral Throughout] Pulse Rate [ Bilateral Throughout] Pulse Rate [ From Monitor] Respiratory 20 29 H 27 H Rate Respiratory Rate [Anterior Bilateral Throughout] Respiratory Rate [Bilateral Throughout] Blood Pressure 113/56 116/57 106/58 O2 Sat by Pulse 96 86 96 Oximetry 09/04/16 09/04/16 09/04/16 03:15 03:30 03:45 Temperature Pulse Rate 78 84 81 Pulse Rate [ Anterior Bilateral Throughout] Pulse Rate [ Bilateral Throughout] Pulse Rate [ From Monitor] Respiratory 27 H 33 H 26 H Rate Respiratory Rate [Anterior Bilateral Throughout] Respiratory Rate [Bilateral Throughout] Blood Pressure 108/57 116/63 109/59 O2 Sat by Pulse 100 98 Oximetry 09/04/16 09/04/16 09/04/16 04:00 04:06 04:15 Temperature 98.8 F Pulse Rate 81 83 Pulse Rate [ Anterior Bilateral Throughout] Pulse Rate [ Bilateral Throughout] Pulse Rate [ 88 From Monitor] Respiratory 27 H 25 H Rate Respiratory Rate [Anterior Bilateral Throughout] Respiratory Rate [Bilateral Throughout] Blood Pressure 110/58 103/61 O2 Sat by Pulse 98 100 Oximetry 09/04/16 09/04/16 09/04/16 04:30 04:45 05:00 Temperature Pulse Rate 81 83 82 Pulse Rate [ Anterior Bilateral Throughout] Pulse Rate [ Bilateral Throughout] Pulse Rate [ From Monitor] Respiratory 24 25 H 28 H Rate Respiratory Rate [Anterior Bilateral Throughout] Respiratory Rate [Bilateral Throughout] Blood Pressure 107/59 107/60 114/57 O2 Sat by Pulse 98 97 Oximetry 09/04/16 09/04/16 09/04/16 05:15 05:30 05:45 Temperature Pulse Rate 82 79 82 Pulse Rate [ Anterior Bilateral Throughout] Pulse Rate [ Bilateral Throughout] Pulse Rate [ From Monitor] Respiratory 21 27 H 27 H Rate Respiratory Rate [Anterior Bilateral Throughout] Respiratory Rate [Bilateral Throughout] Blood Pressure 112/54 108/57 110/51 O2 Sat by Pulse 96 97 97 Oximetry 09/04/16 09/04/16 09/04/16 06:00 06:15 06:30 Temperature Pulse Rate 80 81 79 Pulse Rate [ Anterior Bilateral Throughout] Pulse Rate [ Bilateral Throughout] Pulse Rate [ From Monitor] Respiratory 17 18 19 Rate Respiratory Rate [Anterior Bilateral Throughout] Respiratory Rate [Bilateral Throughout] Blood Pressure 114/53 107/52 115/53 O2 Sat by Pulse 96 97 99 Oximetry 09/04/16 09/04/16 09/04/16 06:45 07:00 07:15 Temperature Pulse Rate 81 82 82 Pulse Rate [ Anterior Bilateral Throughout] Pulse Rate [ Bilateral Throughout] Pulse Rate [ From Monitor] Respiratory 28 H 22 29 H Rate Respiratory Rate [Anterior Bilateral Throughout] Respiratory Rate [Bilateral Throughout] Blood Pressure 112/54 114/50 110/52 O2 Sat by Pulse 97 98 97 Oximetry 09/04/16 09/04/16 09/04/16 07:30 07:45 07:51 Temperature 97.9 F Pulse Rate 80 84 Pulse Rate [ Anterior Bilateral Throughout] Pulse Rate [ Bilateral Throughout] Pulse Rate [ From Monitor] Respiratory 29 H 29 H Rate Respiratory Rate [Anterior Bilateral Throughout] Respiratory Rate [Bilateral Throughout] Blood Pressure 108/52 118/56 O2 Sat by Pulse Oximetry 09/04/16 09/04/16 09/04/16 08:00 08:15 08:27 Temperature Pulse Rate 85 87 85 Pulse Rate [ 86 Anterior Bilateral Throughout] Pulse Rate [ Bilateral Throughout] Pulse Rate [ 87 From Monitor] Respiratory 30 H 34 H Rate Respiratory 28 H Rate [Anterior Bilateral Throughout] Respiratory Rate [Bilateral Throughout] Blood Pressure 119/58 129/65 129/65 O2 Sat by Pulse 99 94 98 Oximetry 09/04/16 08:43 Temperature Pulse Rate Pulse Rate [ 89 Anterior Bilateral Throughout] Pulse Rate [ Bilateral Throughout] Pulse Rate [ From Monitor] Respiratory Rate Respiratory 27 H Rate [Anterior Bilateral Throughout] Respiratory Rate [Bilateral Throughout] Blood Pressure O2 Sat by Pulse Oximetry CBC and BMP: 09/04/16 06:37 09/04/16 06:39 ABG, PT/INR, D-dimer: ABG POC ABG pH 7.544 (7.35-7.45) H 09/04/16 04:27 POC ABG pCO2 30.8 (35-45) L 09/04/16 04:27 POC ABG pO2 78 (80-105) L 09/04/16 04:27 POC ABG HCO3 26.6 09/04/16 04:27 POC ABG Total CO2 28 09/04/16 04:27 POC ABG O2 Sat 97 09/04/16 04:27 PT/INR, D-dimer PT 16.8 Sec. (12.2-14.9) H 09/04/16 06:37 INR 1.37 (0.87-1.13) H 09/04/16 06:37 Abnormal lab findings: Abnormal Labs 08/29/16 08/30/16 08/30/16 21:59 00:16 05:39 WBC RBC Hgb Hct MCH MCHC RDW Seg Neutrophils % Seg Neuts % (Manual) Nucleated RBC % Seg Neutrophils # Seg Neutrophils # Man PT INR POC ABG pH POC ABG pCO2 POC ABG pO2 Sodium Carbon Dioxide Creatinine Glucose POC Glucose 106 H 128 H Lactic Acid Calcium Total Bilirubin AST Alkaline Phosphatase Ammonia Troponin T C-Reactive Protein Total Protein Albumin Prealbumin 0.120 L 08/30/16 08/30/16 08/30/16 10:30 10:30 11:12 WBC 11.1 H RBC 3.16 L Hgb 8.7 L Hct 29.9 L MCH MCHC 29 L RDW 25.0 H Seg Neutrophils % 78.6 H Seg Neuts % (Manual) Nucleated RBC % Seg Neutrophils # 8.7 H Seg Neutrophils # Man PT INR POC ABG pH POC ABG pCO2 POC ABG pO2 Sodium 135 L Carbon Dioxide 20 L Creatinine 1.5 H Glucose 148 H POC Glucose 142 H Lactic Acid Calcium 7.2 L Total Bilirubin 1.30 H AST 143 H Alkaline Phosphatase 392 H Ammonia Troponin T C-Reactive Protein Total Protein 6.1 L Albumin 1.2 L Prealbumin 08/30/16 08/30/16 08/30/16 17:41 18:03 18:18 WBC RBC Hgb Hct MCH MCHC RDW Seg Neutrophils % Seg Neuts % (Manual) Nucleated RBC % Seg Neutrophils # Seg Neutrophils # Man PT INR POC ABG pH 7.316 L POC ABG pCO2 POC ABG pO2 44 L 59 L Sodium Carbon Dioxide Creatinine Glucose POC Glucose 150 H Lactic Acid Calcium Total Bilirubin AST Alkaline Phosphatase Ammonia Troponin T C-Reactive Protein Total Protein Albumin Prealbumin 08/30/16 08/30/16 08/31/16 22:20 22:20 00:11 WBC RBC Hgb Hct MCH MCHC RDW Seg Neutrophils % Seg Neuts % (Manual) Nucleated RBC % Seg Neutrophils # Seg Neutrophils # Man PT INR POC ABG pH POC ABG pCO2 POC ABG pO2 Sodium Carbon Dioxide Creatinine Glucose POC Glucose 133 H Lactic Acid 2.30 H* Calcium Total Bilirubin AST Alkaline Phosphatase Ammonia Troponin T C-Reactive Protein 10.20 H Total Protein Albumin Prealbumin 08/31/16 08/31/16 08/31/16 04:20 04:20 04:20 WBC 18.3 H RBC 3.19 L Hgb 8.8 L Hct 30.0 L MCH 27 L MCHC 29 L RDW 23.9 H Seg Neutrophils % Seg Neuts % (Manual) Nucleated RBC % Seg Neutrophils # Seg Neutrophils # Man PT 16.8 H INR 1.37 H POC ABG pH POC ABG pCO2 POC ABG pO2 Sodium 136 L Carbon Dioxide 19 L Creatinine 1.5 H Glucose 125 H POC Glucose Lactic Acid Calcium 7.0 L Total Bilirubin 1.50 H AST 131 H Alkaline Phosphatase 431 H Ammonia Troponin T C-Reactive Protein Total Protein 6.2 L Albumin 1.2 L Prealbumin 08/31/16 08/31/16 08/31/16 04:20 05:22 05:24 WBC RBC Hgb Hct MCH MCHC RDW Seg Neutrophils % Seg Neuts % (Manual) Nucleated RBC % Seg Neutrophils # Seg Neutrophils # Man PT INR POC ABG pH POC ABG pCO2 POC ABG pO2 142 H Sodium Carbon Dioxide Creatinine Glucose POC Glucose 123 H Lactic Acid Calcium Total Bilirubin AST Alkaline Phosphatase Ammonia 70.0 H Troponin T C-Reactive Protein Total Protein Albumin Prealbumin 08/31/16 08/31/16 08/31/16 12:10 15:45 17:38 WBC RBC Hgb Hct MCH MCHC RDW Seg Neutrophils % Seg Neuts % (Manual) Nucleated RBC % Seg Neutrophils # Seg Neutrophils # Cristian PT INR POC ABG pH POC ABG pCO2 POC ABG pO2 Sodium 136 L Carbon Dioxide 21 L Creatinine 1.5 H Glucose 160 H POC Glucose 147 H 151 H Lactic Acid Calcium 6.9 L Total Bilirubin AST Alkaline Phosphatase Ammonia Troponin T 0.109 H* D C-Reactive Protein Total Protein Albumin Prealbumin 09/01/16 09/01/16 09/01/16 00:09 04:00 04:00 WBC 14.8 H RBC 2.89 L Hgb 7.8 L Hct 27.2 L MCH 27 L MCHC 29 L RDW 24.4 H Seg Neutrophils % Seg Neuts % (Manual) Nucleated RBC % Seg Neutrophils # Seg Neutrophils # Man PT 18.2 H INR 1.51 H POC ABG pH POC ABG pCO2 POC ABG pO2 Sodium Carbon Dioxide Creatinine Glucose POC Glucose 192 H Lactic Acid Calcium Total Bilirubin AST Alkaline Phosphatase Ammonia Troponin T C-Reactive Protein Total Protein Albumin Prealbumin 09/01/16 09/01/16 09/01/16 04:00 05:28 11:28 WBC RBC Hgb Hct MCH MCHC RDW Seg Neutrophils % Seg Neuts % (Manual) Nucleated RBC % Seg Neutrophils # Seg Neutrophils # Man PT INR POC ABG pH POC ABG pCO2 POC ABG pO2 Sodium Carbon Dioxide 20 L Creatinine 1.6 H Glucose 183 H POC Glucose 189 H 207 H Lactic Acid Calcium 6.9 L Total Bilirubin 1.30 H AST 138 H Alkaline Phosphatase 520 H Ammonia Troponin T C-Reactive Protein Total Protein 6.1 L Albumin 1.2 L Prealbumin 09/01/16 09/01/16 09/02/16 16:56 23:49 05:00 WBC RBC Hgb Hct MCH MCHC RDW Seg Neutrophils % Seg Neuts % (Manual) Nucleated RBC % Seg Neutrophils # Seg Neutrophils # Man PT 18.0 H INR 1.49 H POC ABG pH POC ABG pCO2 POC ABG pO2 Sodium Carbon Dioxide Creatinine Glucose POC Glucose 250 H 307 H Lactic Acid Calcium Total Bilirubin AST Alkaline Phosphatase Ammonia Troponin T C-Reactive Protein Total Protein Albumin Prealbumin 09/02/16 09/02/16 09/02/16 05:00 05:00 05:45 WBC 12.3 H RBC 2.57 L Hgb 7.1 L Hct 23.4 L MCH MCHC RDW 23.9 H Seg Neutrophils % Seg Neuts % (Manual) 72.0 H Nucleated RBC % 25.0 H Seg Neutrophils # Seg Neutrophils # Man 8.9 H PT INR POC ABG pH POC ABG pCO2 POC ABG pO2 Sodium Carbon Dioxide Creatinine 1.4 H Glucose 299 H POC Glucose 327 H Lactic Acid Calcium 7.0 L Total Bilirubin AST Alkaline Phosphatase Ammonia Troponin T C-Reactive Protein Total Protein Albumin Prealbumin 09/02/16 09/02/16 09/02/16 12:22 17:22 23:24 WBC RBC Hgb Hct MCH MCHC RDW Seg Neutrophils % Seg Neuts % (Manual) Nucleated RBC % Seg Neutrophils # Seg Neutrophils # Man PT INR POC ABG pH POC ABG pCO2 POC ABG pO2 Sodium Carbon Dioxide Creatinine Glucose POC Glucose 310 H 358 H 286 H Lactic Acid Calcium Total Bilirubin AST Alkaline Phosphatase Ammonia Troponin T C-Reactive Protein Total Protein Albumin Prealbumin 09/03/16 09/03/16 09/03/16 04:10 04:10 04:10 WBC 11.8 H RBC 2.29 L Hgb 6.1 L Hct 21.0 L MCH 27 L MCHC 29 L RDW 24.1 H Seg Neutrophils % Seg Neuts % (Manual) Nucleated RBC % Seg Neutrophils # Seg Neutrophils # Man PT 17.6 H INR 1.45 H POC ABG pH POC ABG pCO2 POC ABG pO2 Sodium Carbon Dioxide Creatinine 1.4 H Glucose 301 H POC Glucose Lactic Acid Calcium 7.0 L Total Bilirubin AST Alkaline Phosphatase Ammonia Troponin T C-Reactive Protein Total Protein Albumin Prealbumin 09/03/16 09/03/16 09/03/16 05:59 11:36 17:42 WBC RBC Hgb Hct MCH MCHC RDW Seg Neutrophils % Seg Neuts % (Manual) Nucleated RBC % Seg Neutrophils # Seg Neutrophils # Man PT INR POC ABG pH POC ABG pCO2 POC ABG pO2 Sodium Carbon Dioxide Creatinine Glucose POC Glucose 351 H 285 H 259 H Lactic Acid Calcium Total Bilirubin AST Alkaline Phosphatase Ammonia Troponin T C-Reactive Protein Total Protein Albumin Prealbumin 09/03/16 09/04/16 09/04/16 23:00 04:27 05:36 WBC RBC Hgb Hct MCH MCHC RDW Seg Neutrophils % Seg Neuts % (Manual) Nucleated RBC % Seg Neutrophils # Seg Neutrophils # Man PT INR POC ABG pH 7.544 H POC ABG pCO2 30.8 L POC ABG pO2 78 L Sodium Carbon Dioxide Creatinine Glucose POC Glucose 192 H 228 H Lactic Acid Calcium Total Bilirubin AST Alkaline Phosphatase Ammonia Troponin T C-Reactive Protein Total Protein Albumin Prealbumin 09/04/16 09/04/16 09/04/16 06:37 06:37 06:39 WBC 21.0 H RBC 2.22 L Hgb 6.0 L Hct 20.1 L MCH 27 L MCHC RDW 24.3 H Seg Neutrophils % Seg Neuts % (Manual) Nucleated RBC % Seg Neutrophils # Seg Neutrophils # Man PT 16.8 H INR 1.37 H POC ABG pH POC ABG pCO2 POC ABG pO2 Sodium Carbon Dioxide Creatinine 1.4 H Glucose 201 H POC Glucose Lactic Acid Calcium 7.1 L Total Bilirubin AST Alkaline Phosphatase Ammonia Troponin T C-Reactive Protein Total Protein Albumin Prealbumin Allied health notes reviewed: RT
--- NOTE | 2016-09-04 09:41 | XRay Report ---
Portable chest: Respiratory distress. Comparison is made to recent studies of September 02 and September 03. The patient continues to have bronchoalveolar opacity occupying most of the right lung with questionable coarsening of the markings on the left. The cardiac contour is questionable in size in view of the positioning. There is no obvious vascular congestion. Multiple life support tubes are in good positions unchanged from prior study. Impression: No recent change. Right pulmonary consolidation/effusion.
[2016-09-04] MEDS: LEVAQUIN 750MG/150ML 750 MG/150 ML BAG IV SCH (10:02)
[2016-09-04] MEDS: PROTONIX PO SCH (10:03)
[2016-09-04] MEDS: FOLVITE PO SCH (10:03)
[2016-09-04] MEDS: POTASSIUM CHLORIDE PO SCH (10:03)
[2016-09-04] MEDS ORDERED: ATIVAN IV ONE (11:00)
--- NOTE | 2016-09-04 11:51 | Consultation ---
History of Present Illness - Reason for Consult Consult date: 09/04/16 Leukocytosis - History of Present Illness Ms. Ashley is a 61-year-old morbidly obese woman with multiple chronic medical problems. She was brought by ambulance for evaluation of decreased responsiveness. Sequential chest radiographic imaging show a right lower lobe opacity initially thought to be atelectasis but likely a layering pleural effusion. She remains intubated in the ICU. A tracheal aspirate culture showed rare Gram positive cocci in pairs and Gram negative rods. She has been on empiric Zosyna nd Levaquin for several days. Her WBC increased significantly today. She is on steroids over the past ~2 days. She has no other localizing clinical issues. ID is consulted for further treatment recommendations. Past History Past Medical History: anemia, diabetes, hypertension, hyperlipidemia, other ( Morbid Obesity) Social history: Family history: hypertension Medications and Allergies Allergies Allergy/AdvReac Type Severity Reaction Status Date / Time No Known Allergies Allergy Verified 01/11/16 00:24 Home Medications Medication Instructions Recorded Confirmed Last Taken Type AtorvaSTATin [Lipitor] 20 mg PO QDAY 01/11/16 08/31/16 07/08/16 History Folic Acid [Folvite] 1 mg PO QDAY 01/11/16 08/31/16 07/08/16 History Tizanidine HCl [tiZANidine] 2 mg PO Q8H 01/11/16 08/31/16 07/08/16 History amLODIPine [Norvasc] 10 mg PO DAILY 01/11/16 08/31/16 07/08/16 History Insulin Glargine [Lantus VIAL] 20 units SUB-Q QAMDIAB 30 Days 01/20/16 08/31/16 07/08/16 Rx Insulin Glulisine [Apidra] 6 units SUB-Q AC 30 Days 01/20/16 08/31/16 07/08/16 Rx Pantoprazole [Protonix TAB] 40 mg PO BID #60 tablet 01/21/16 08/31/16 07/08/16 Rx HYDROcodone/APAP 5-325 [[place] 1 each PO Q6HR PRN #10 tablet 02/26/16 08/31/16 Rx 5-325 mg TAB] Blood Sugar Diagnostic [Blood 1 each MC TIDAC #100 strip 05/01/16 08/31/1607/08 /17 Rx Glucose Test Strip] Gabapentin 300 mg PO TID 08/31/16 08/31/16 Unknown History Active Meds: Active Medications Acetaminophen (Tylenol) 650 mg PO Q4H PRN PRN Reason: Pain MILD(1-3)/Fever >100.5/DUBOSE Albuterol (Proventil) 2.5 mg IH Q3HRT PRN PRN Reason: Shortness Of Breath Albuterol/Ipratropium (Duoneb 0.5 Mg-3 Mg/3 Ml Soln) 1 ampul IH Q6HRT [facility] Last Admin: 09/04/16 08:32 Dose: 1 ampul Lipase/Protease/Amylase (Pancreaze Dr 10,500 Unit) 1 each FEEDTUBE PRN PRN PRN Reason: For Clogged Feeding Tube Bisacodyl (Dulcolax) 10 mg MI QDAY PRN PRN Reason: Constipation unrelieved by MOM Ferrous Sulfate (Ferrous Sulfate) 300 mg PO QDAY KATHY Folic Acid (Folvite) 1 mg PO DAILY [facility] Last Admin: 09/04/16 10:03 Dose: 1 mg Furosemide (Lasix) 60 mg IV Q8HR [facility] Last Admin: 09/04/16 06:44 Dose: 60 mg Hydrophilic Ointment (Vaseline Lip Therapy) 1 applic TP Q2HR PRN PRN Reason: Dry Lips Piperacillin Sod/Tazobactam Sod (Zosyn/Ns 4.5gm/100ml) 4.5 gm in 100 mls @ 200 mls/hr IV Q8H KATHY PRN Reason: Protocol Stop: 09/04/16 23:59 Last Admin: 09/04/16 06:36 Dose: 200 mls/hr Norepinephrine (Levophed Drip 4 Mg/Ns 250 Ml) 4 mg in 250 mls @ 7.5 mls/hr IV TITR KATHY; 2 MCG/MIN PRN Reason: Protocol Last Titration: 09/04/16 10:24 Dose: 0 mcg/min, 0 mls/hr Fentanyl Citrate (Fentanyl Drip Premix) 2,000 mcg in 100 mls @ 9.48 mls/hr IV TITR KATHY; 1 MCG/KG/HR PRN Reason: Protocol Last Titration: 09/01/16 19:53 Dose: 0 mcg/kg/hr, 0 mls/hr Levofloxacin/Dextrose (Levaquin 750mg/150ml) 750 mg in 150 mls @ 100 mls/hr IV Q24HR [facility] PRN Reason: Protocol Stop: 09/04/16 12:00 Last Admin: 09/04/16 10:02 Dose: 100 mls/hr Ferric Sodium Gluconate Complex 125 mg/ Sodium Chloride 110 mls @ 100 mls/hr IV Q24H [facility] Stop: 09/05/16 14:05 Last Admin: 09/03/16 14:15 Dose: 100 mls/hr Insulin Aspart (Novolog) 0 units SUB-Q Q6HR [facility] PRN Reason: Protocol Last Admin: 09/04/16 06:46 Dose: 4 units Insulin Detemir (Levemir) 45 units SUB-Q QAM@0800 [facility] Last Admin: 09/04/16 07:41 Dose: 45 units Lactulose (Cephulac) 20 gm PO Q6H PRN PRN Reason: Constipation Magnesium Hydroxide (Milk Of Magnesia) 30 ml PO Q4H PRN PRN Reason: Constipation Methylprednisolone Sodium Succinate (Solu-Medrol) 40 mg IV Q12HR [facility] Last Admin: 09/04/16 10:03 Dose: 40 mg Metolazone (Zaroxolyn) 5 mg PO Q24H [facility] Last Admin: 09/04/16 06:43 Dose: 5 mg Multi-Ingred Cream/Lotion/Oil/Oint (Artificial Tears Ophth Oint) 1 applic OU Q4HR PRN PRN Reason: Dry Eye(s) Ondansetron HCl (Zofran) 4 mg IV Q8H PRN PRN Reason: N/V unrelieved by Reglan Pantoprazole (Protonix) 40 mg PO QDAY [facility] Last Admin: 09/04/16 10:03 Dose: 40 mg Potassium Chloride (Potassium Chloride) 20 meq PO Q12HR [facility] Last Admin: 09/04/16 10:03 Dose: 20 meq Simple Syrup (Simple Syrup) 15 ml FEEDTUBE PRN PRN PRN Reason: Hypoglycemia Simple Syrup (Simple Syrup) 30 ml FEEDTUBE PRN PRN PRN Reason: Hypoglycemia Sodium Bicarbonate (Sodium Bicarbonate) 325 mg FEEDTUBE PRN PRN PRN Reason: For Clogged Feeding Tube Review of Systems ROS unobtainable: due to endotracheal tube Physical Examination - Physical Exam Narrative exam: morbidly obese woman, intubated - Constitutional Vitals: Vital Signs Temp Pulse Resp BP Pulse Ox 97.9 F 100 H 29 H 116/60 99 09/04/16 07:51 09/04/16 11:27 09/04/16 11:27 09/04/16 11:27 09/04/16 11:27 Temperature -Last 24 Hours Temperature 97.9 F Temperature 98.8 F Temperature 98.6 F Temperature 98.6 F Temperature 98.6 F Temperature 98.0 F - EENT Eyes: Absent: scleral icterus - Neck Neck: Present: supple - Respiratory Respiratory: bilateral: diminished (ET tube in place) - Cardiovascular Rhythm: regular Heart Sounds: Present: S1 & S2 - Extremities Extremity abnormal: edema (prominent skin folds with chronic, inflammatory skin changes within folds of thighs) - Abdominal General gastrointestinal: Present: soft, non-distended Female genitourinary: Present: other (Jose with yellow urine) - Integumentary Integumentary: Absent: jaundice, rash - Additional findings Additional findings: subclavian central line, no surrounding inflammation Results - Labs CBC & Chem 7: 09/04/16 06:37 09/04/16 06:39 Labs: Abnormal lab results 09/03/16 09/03/16 09/03/16 Range/Units 11:36 17:42 23:00 WBC (4.5-11.0) K/mm3 RBC (3.65-5.03) M/mm3 Hgb (10.1-14.3) gm/dl Hct (30.3-42.9) % MCH (28-32) pg RDW (13.2-15.2) % PT (12.2-14.9) Sec. INR (0.87-1.13) POC ABG pH (7.35-7.45) POC ABG pCO2 (35-45) POC ABG pO2 (80-105) Creatinine (0.7-1.2) mg/dL Glucose (65-100) mg/dL POC Glucose 285 H 259 H 192 H (70-105) Calcium (8.4-10.2) mg/dL 09/04/16 09/04/16 09/04/16 Range/Units 04:27 05:36 06:37 WBC (4.5-11.0) K/mm3 RBC (3.65-5.03) M/mm3 Hgb (10.1-14.3) gm/dl Hct (30.3-42.9) % MCH (28-32) pg RDW (13.2-15.2) % PT 16.8 H (12.2-14.9) Sec. INR 1.37 H (0.87-1.13) POC ABG pH 7.544 H (7.35-7.45) POC ABG pCO2 30.8 L (35-45) POC ABG pO2 78 L (80-105) Creatinine (0.7-1.2) mg/dL Glucose (65-100) mg/dL POC Glucose 228 H (70-105) Calcium (8.4-10.2) mg/dL 09/04/16 09/04/16 Range/Units 06:37 06:39 WBC 21.0 H (4.5-11.0) K/mm3 RBC 2.22 L (3.65-5.03) M/mm3 Hgb 6.0 L (10.1-14.3) gm/dl Hct 20.1 L (30.3-42.9) % MCH 27 L (28-32) pg RDW 24.3 H (13.2-15.2) % PT (12.2-14.9) Sec. INR (0.87-1.13) POC ABG pH (7.35-7.45) POC ABG pCO2 (35-45) POC ABG pO2 (80-105) Creatinine 1.4 H (0.7-1.2) mg/dL Glucose 201 H (65-100) mg/dL POC Glucose (70-105) Calcium 7.1 L (8.4-10.2) mg/dL Microbiology 08/29/16 17:40 Peripheral/Venous Blood Culture - Final NO GROWTH AFTER 5 DAYS 08/29/16 17:45 Peripheral/Venous Blood Culture - Final NO GROWTH AFTER 5 DAYS 09/03/16 18:00 Stool Stool Occult Blood (JEANNETTE) - Final 08/29/16 15:37 Urine,Catheterized - Indwelling Catheter Urine Culture - Final NO GROWTH AFTER 48 HOURS 08/29/16 Unknown Tracheal Aspirate Sputum Culture - Final Assessment and Plan - Patient Problems (1) Leukocytosis, unspecified Current Visit: Yes Status: Acute Qualifiers: Leukocytosis type: L Plan to address problem: 1. Would finish out current course of pneumonia treatment with Zosyn monotherapy. 2. Leukocytosis is likely from concurrent steroids, but will monitor closely clinically for new changes, e.g. diarrhea, rash, etc.
--- NOTE | 2016-09-04 11:55 | Progress Note ---
Assessment and Plan Altered mental status Acute respiratory failure intubated on the vent Lactic acidosis Anemia requiring blood transfusion Obesity Decubitus ulcer Sepsis Diabetes EF 50-55% on echo 06/2016. Conservative cardiac management. Subjective Date of service: 09/04/16 Interval history: Patient remains intubated on the vent, with out sedation. Patient with eyes open. Objective Vital Signs Temp Pulse Pulse Pulse Pulse Resp Resp 09/04/16 11:27 100 H 29 H 09/04/16 11:21 102 H 09/04/16 10:30 102 H 09/04/16 10:22 99 H 09/04/16 10:15 100 H 30 H 09/04/16 10:00 99 H 25 H 09/04/16 09:45 97 H 30 H 09/04/16 09:30 97 H 25 H 09/04/16 09:15 95 H 25 H 09/04/16 09:00 92 H 33 H 09/04/16 08:45 89 32 H 09/04/16 08:43 89 27 H 09/04/16 08:30 85 33 H 09/04/16 08:27 85 86 28 H 09/04/16 08:15 87 34 H 09/04/16 08:00 85 87 30 H 09/04/16 07:51 97.9 F 09/04/16 07:45 84 29 H 09/04/16 07:30 80 29 H 09/04/16 07:15 82 29 H 09/04/16 07:00 82 22 09/04/16 06:45 81 28 H 09/04/16 06:30 79 19 09/04/16 06:15 81 18 09/04/16 06:00 80 17 09/04/16 05:45 82 27 H 09/04/16 05:30 79 27 H 09/04/16 05:15 82 21 09/04/16 05:00 82 28 H 09/04/16 04:45 83 25 H 09/04/16 04:30 81 24 09/04/16 04:15 83 25 H 09/04/16 04:06 98.8 F 09/04/16 04:00 81 88 27 H 09/04/16 03:45 81 26 H 09/04/16 03:30 84 33 H 09/04/16 03:15 78 27 H 09/04/16 03:00 78 27 H 09/04/16 02:45 80 29 H 09/04/16 02:30 85 20 09/04/16 02:16 91 H 25 H 09/04/16 02:15 85 09/04/16 02:00 98 H 88 35 H 09/04/16 01:45 84 27 H 09/04/16 01:30 81 28 H 09/04/16 01:15 81 27 H 09/04/16 01:00 83 28 H 09/04/16 00:45 80 27 H 09/04/16 00:30 80 26 H 09/04/16 00:15 84 28 H 09/04/16 00:04 85 09/04/16 00:00 85 93 H 29 H 09/03/16 23:45 87 24 09/03/16 23:41 98.6 F 09/03/16 23:30 85 26 H 09/03/16 23:15 88 28 H 09/03/16 23:05 87 30 H 09/03/16 23:00 86 30 H 09/03/16 22:45 87 29 H 09/03/16 22:31 88 26 H 09/03/16 22:15 88 29 H 09/03/16 22:00 92 H 29 H 09/03/16 21:45 90 28 H 09/03/16 21:30 89 27 H 09/03/16 21:15 92 H 29 H 09/03/16 21:00 88 30 H 09/03/16 20:45 92 H 19 09/03/16 20:30 94 H 31 H 09/03/16 20:15 91 H 32 H 09/03/16 20:02 91 H 09/03/16 20:00 98.6 F 90 93 H 31 H 09/03/16 19:45 95 H 33 H 09/03/16 19:40 98 H 09/03/16 19:35 93 H 09/03/16 19:30 92 H 32 H 09/03/16 19:15 93 H 31 H 09/03/16 19:00 93 H 30 H 09/03/16 18:45 94 H 30 H 09/03/16 18:30 95 H 32 H 09/03/16 18:15 93 H 11 L 09/03/16 18:00 110 H 15 09/03/16 17:45 93 H 29 H 09/03/16 17:40 93 H 09/03/16 17:30 91 H 28 H 09/03/16 17:15 95 H 30 H 09/03/16 17:00 92 H 29 H 09/03/16 16:45 90 27 H 09/03/16 16:30 93 H 30 H 09/03/16 16:15 90 28 H 09/03/16 16:00 97 H 92 H 30 H 09/03/16 15:45 96 H 29 H 09/03/16 15:44 98.6 F 09/03/16 15:30 94 H 29 H 09/03/16 15:21 95 H 09/03/16 15:19 90 09/03/16 15:15 94 H 31 H 09/03/16 15:00 94 H 30 H 09/03/16 14:45 94 H 30 H 09/03/16 14:30 84 32 H 09/03/16 14:15 90 28 H 09/03/16 14:00 90 29 H 09/03/16 13:45 87 30 H 09/03/16 13:30 89 28 H 09/03/16 13:15 86 27 H 09/03/16 13:00 94 H 27 H 09/03/16 12:45 91 H 25 H 09/03/16 12:43 87 09/03/16 12:30 89 29 H 09/03/16 12:24 84 09/03/16 12:15 89 25 H 09/03/16 12:00 98.0 F 88 30 H Resp BP Pulse Ox 09/04/16 11:27 116/60 99 09/04/16 11:21 116/60 99 09/04/16 10:30 09/04/16 10:22 102/54 97 09/04/16 10:15 102/54 95 09/04/16 10:00 131/50 96 09/04/16 09:45 123/60 96 09/04/16 09:30 117/57 96 09/04/16 09:15 124/59 09/04/16 09:00 119/62 98 09/04/16 08:45 120/54 96 09/04/16 08:43 09/04/16 08:30 139/67 99 09/04/16 08:27 129/65 98 09/04/16 08:15 129/65 94 09/04/16 08:00 119/58 99 09/04/16 07:51 09/04/16 07:45 118/56 09/04/16 07:30 108/52 09/04/16 07:15 110/52 97 09/04/16 07:00 114/50 98 09/04/16 06:45 112/54 97 09/04/16 06:30 115/53 99 09/04/16 06:15 107/52 97 09/04/16 06:00 114/53 96 09/04/16 05:45 110/51 97 09/04/16 05:30 108/57 97 09/04/16 05:15 112/54 96 09/04/16 05:00 114/57 97 09/04/16 04:45 107/60 09/04/16 04:30 107/59 98 09/04/16 04:15 103/61 100 09/04/16 04:06 09/04/16 04:00 110/58 98 09/04/16 03:45 109/59 98 09/04/16 03:30 116/63 09/04/16 03:15 108/57 100 09/04/16 03:00 106/58 96 09/04/16 02:45 116/57 86 09/04/16 02:30 113/56 96 09/04/16 02:16 114/63 09/04/16 02:15 31 H 09/04/16 02:00 30 H 114/63 100 09/04/16 01:45 112/57 09/04/16 01:30 102/53 97 09/04/16 01:15 110/53 100 09/04/16 01:00 108/54 09/04/16 00:45 106/50 99 09/04/16 00:30 101/52 100 09/04/16 00:15 111/53 100 09/04/16 00:04 114/54 100 09/04/16 00:00 112/57 98 09/03/16 23:45 113/65 99 09/03/16 23:41 09/03/16 23:30 114/60 98 09/03/16 23:15 114/54 97 09/03/16 23:05 114/56 99 09/03/16 23:00 114/56 97 09/03/16 22:45 112/59 99 09/03/16 22:31 108/54 97 09/03/16 22:15 110/59 98 09/03/16 22:00 87/51 98 0517 21:45 95/52 99 17 21:30 104/52 09/03/16 21:15 101/51 09/03/16 21:00 104/53 99 17 20:45 106/53 09/03/16 20:30 106/55 100 17 20:15 109/55 98 09/03/16 20:02 30 H 09/03/16 20:00 113/54 98 09/03/16 19:45 106/55 98 09/03/16 19:40 32 H 09/03/16 19:35 113/54 100 09/03/16 19:30 113/54 97 09/03/16 19:15 115/57 99 09/03/16 19:00 106/56 98 09/03/16 18:45 118/62 98 17 18:30 114/61 97 09/03/16 18:15 108/58 09/03/16 18:00 108/57 96 09/03/16 17:45 108/57 97 09/03/16 17:40 98/55 99 17 17:30 98/55 09/03/16 17:15 107/54 09/03/16 17:00 114/53 17 16:45 105/53 98 17 16:30 110/54 09/03/16 16:15 106/53 98 17 16:00 27 H 111/55 99 17 15:45 101/51 98 17 15:44 0517 15:30 113/53 09/03/16 15:21 30 H 09/03/16 15:19 105/57 100 17 15:15 111/56 09/03/16 15:00 105/57 98 17 14:45 110/58 05/17 14:30 95/59 0517 14:15 101/54 0517 14:00 109/59 05/25/17 13:45 102/53 98 09/03/16 13:30 110/55 09/03/16 13:15 101/54 09/03/16 13:00 103/60 09/03/16 12:45 114/55 98 09/03/16 12:43 27 H 09/03/16 12:30 105/60 98 09/03/16 12:24 110/55 100 09/03/16 12:15 110/55 09/03/16 12:00 103/55 99 - Physical Examination General: Other (intubated on the vent) Cardiac: Positive: Reg Rate and Rhythm - Labs and Meds Coagulation 09/04/16 Range/Units 06:37 PT 16.8 H (12.2-14.9) Sec. INR 1.37 H (0.87-1.13) CBC 09/04/16 Range/Units 06:37 WBC 21.0 H (4.5-11.0) K/mm3 RBC 2.22 L (3.65-5.03) M/mm3 Hgb 6.0 L (10.1-14.3) gm/dl Hct 20.1 L (30.3-42.9) % Plt Count 177 (140-440) K/mm3 Comprehensive Metabolic Panel 09/04/16 Range/Units 06:39 Sodium 141 (137-145) mmol/L Potassium 4.9 D (3.6-5.0) mmol/L Chloride 102.3 (98-107) mmol/L Carbon Dioxide 24 (22-30) mmol/L BUN 14 (7-17) mg/dL Creatinine 1.4 H (0.7-1.2) mg/dL Glucose 201 H (65-100) mg/dL Calcium 7.1 L (8.4-10.2) mg/dL - Allied health notes Allied health notes reviewed: RT
--- NOTE | 2016-09-04 13:14 | XRay Report ---
Portable supine chest: Dobbhoff placement. A Dobbhoff catheter is located with its tip in the midportion of what appears to be a somewhat distended stomach. Abnormal chest findings are described in separate dictation of the chest.
[2016-09-04] MEDS: NULECIT 125 MG in NACL 0.9% 100 ML IV SCH (13:30)
[2016-09-04] MEDS ORDERED: NACL 0.9% 500 ML 500 ML IV ONE (14:45)
--- NOTE | 2016-09-04 14:52 | Progress Note ---
Assessment and Plan Assessment and plan: Patient is a 61-year-old morbidly obese woman with a past medical history of congestive heart failure, severe protein calorie malnutrition with BMI of 81.6, functional quadriplegia, type 2 diabetes mellitus, hypertension, multiple skin breakdown between legs and thighs who presented to the hospital via EMS with AMS. 2D echocardiogram with ejection fraction of 50-55%. During the past admission patient was recommended for placement but refused. On presentation patient was felt to be unable to maintain airway and intubated the ER. Acute toxic metabolic encephalopathy Acute on chronic diastolic congestive heart failure: Cardiology is following, diuresis Acute on chronic respiratory failure, intubated Septic shock on Levaphed: Weaning attempts Hypercoagulable state Severe anemia s/p blood transfusion: monitor cbc closely altered and. Mitral stenosis Paroxysmal atrial fibrillation Non-ST elevated SD: Cardiology is following, conservative management Acute on chronic kidney disease likely secondary to vasomotor nephropathy-POA Transaminitis-elevated alkaline phosphatase and AST: continue to monitor Severe protein calorie malnutrition albumin 1.2 Morbid obesity BMI 81.6 Mulitple PRESSURE ULCERS-POA: consulted wound care New issues: uncontrolled dm: increase ssi and wean down iv steroids. restraints renewed drop in HCT, ordered am labs Levaphed still at 3 mcg Unable to get CT head due to weight issues Patient is currently not on sedation. Pupils are STILL pinpoint so prior sedative medications are probably still active in her system, she spontaneously opened her eyes today. Still not following commands Family to bring in old records has agreed to blood transfusion, hgb is 6.0 will transfuse 2 units. History Interval history: Patient seen and examined. Follow up on respiratory failure. Patient still intubated. Overnight uneventful. No cp, sob, n/v or severe headaches. Imaging, old records, testing, labs, nursing notes reviewed. at bedside states that she can have blood transfusion. She's not [employer]. This statement was witnessed by public health aide Dr. Avendano who was also at bedside. Hospitalist Physical - Physical exam Narrative exam: GEN: Critically ill, morbid obese BMI 81.6, intubated HEENT: Pupils are pinpoint and reactive, ET tube in place NECK: SUPPLE, NO THYROMEGALY, NO JVD, NO LAD CVS: regular irregular NORMAL S1S2 LUNGS/CHEST: TA B, NORMAL CHEST EXPANSION B, GOOD AIR ENTRY B ABD: SOFT, NONDISTENDED GBS, NO REBOUND OR GUARDING MSK: Spontaneous movement of extremities NEURO: CN 2-12 GROSSLY INTACT, doesn't follow commands PSY: Confused - Constitutional Vitals: Temp Pulse Resp BP Pulse Ox 97.8 F 103 H 26 H 108/56 100 09/04/16 12:00 09/04/16 13:45 09/04/16 12:30 09/04/16 12:30 09/04/16 13:45 General appearance: Present: other (intubated on the vent) Results - Labs CBC & Chem 7: 09/04/16 06:37 09/04/16 06:39 Labs: Laboratory Last Values WBC 21.0 K/mm3 (4.5-11.0) H 09/04/16 06:37 RBC 2.22 M/mm3 (3.65-5.03) L 09/04/16 06:37 Hgb 6.0 gm/dl (10.1-14.3) L 09/04/16 06:37 Hct 20.1 % (30.3-42.9) L 09/04/16 06:37 MCV 90 fl (79-97) 09/04/16 06:37 MCH 27 pg (28-32) L 09/04/16 06:37 MCHC 30 % (30-34) 09/04/16 06:37 RDW 24.3 % (13.2-15.2) H 09/04/16 06:37 Plt Count 177 K/mm3 (140-440) 09/04/16 06:37 Lymph % (Auto) 15.6 % (13.4-35.0) 08/30/16 10:30 Dickinson % (Auto) 5.1 % (0.0-7.3) 08/30/16 10:30 Eos % (Auto) 0.6 % (0.0-4.3) 08/30/16 10:30 Baso % (Auto) 0.1 % (0.0-1.8) 08/30/16 10:30 Lymph # 1.7 K/mm3 (1.2-5.4) 08/30/16 10:30 Dickinson # 0.6 K/mm3 (0.0-0.8) 08/30/16 10:30 Eos # 0.1 K/mm3 (0.0-0.4) 08/30/16 10:30 Baso # 0.0 K/mm3 (0.0-0.1) 08/30/16 10:30 Add Manual Diff Complete 09/02/16 05:00 Total Counted 100 09/02/16 05:00 Seg Neutrophils % 78.6 % (40.0-70.0) H 08/30/16 10:30 Seg Neuts % (Manual) 72.0 % (40.0-70.0) H 09/02/16 05:00 Band Neutrophils % 9.0 % 09/02/16 05:00 Lymphocytes % (Manual) 15.0 % (13.4-35.0) 09/02/16 05:00 Reactive Lymphs % (Man) 0 % 09/02/16 05:00 Monocytes % (Manual) 4.0 % (0.0-7.3) 09/02/16 05:00 Eosinophils % (Manual) 0 % (0.0-4.3) 09/02/16 05:00 Basophils % (Manual) 0 % (0.0-1.8) 09/02/16 05:00 Metamyelocytes % 0 % 09/02/16 05:00 Myelocytes % 0 % 09/02/16 05:00 Promyelocytes % 0 % 09/02/16 05:00 Blast Cells % 0 % 09/02/16 05:00 Nucleated RBC % 25.0 % (0.0-0.9) H 09/02/16 05:00 Seg Neutrophils # 8.7 K/mm3 (1.8-7.7) H 08/30/16 10:30 Seg Neutrophils # Man 8.9 K/mm3 (1.8-7.7) H 09/02/16 05:00 Band Neutrophils # 1.1 K/mm3 09/02/16 05:00 Lymphocytes # (Manual) 1.8 K/mm3 (1.2-5.4) 09/02/16 05:00 Abs React Lymphs (Man) 0.0 K/mm3 09/02/16 05:00 Monocytes # (Manual) 0.5 K/mm3 (0.0-0.8) 09/02/16 05:00 Eosinophils # (Manual) 0.0 K/mm3 (0.0-0.4) 09/02/16 05:00 Basophils # (Manual) 0.0 K/mm3 (0.0-0.1) 09/02/16 05:00 Metamyelocytes # 0.0 K/mm3 09/02/16 05:00 Myelocytes # 0.0 K/mm3 09/02/16 05:00 Promyelocytes # 0.0 K/mm3 09/02/16 05:00 Blast Cells # 0.0 K/mm3 09/02/16 05:00 WBC Morphology Not Reportable 09/02/16 05:00 Hypersegmented Neuts Not Reportable 09/02/16 05:00 Hyposegmented Neuts Not Reportable 09/02/16 05:00 Hypogranular Neuts Not Reportable 09/02/16 05:00 Smudge Cells Not Reportable 09/02/16 05:00 Toxic Granulation Not Reportable 09/02/16 05:00 Toxic Vacuolation Not Reportable 09/02/16 05:00 Dohle Bodies Not Reportable 09/02/16 05:00 Pelger-Huet Anomaly Not Reportable 09/02/16 05:00 Feli Rods Not Reportable 09/02/16 05:00 Platelet Estimate Consistent w auto 09/02/16 05:00 Clumped Platelets Not Reportable 09/02/16 05:00 Plt Clumps, EDTA Not Reportable 09/02/16 05:00 Large Platelets Not Reportable 09/02/16 05:00 Giant Platelets Not Reportable 09/02/16 05:00 Platelet Satelliting Not Reportable 09/02/16 05:00 Plt Morphology Comment Not Reportable 09/02/16 05:00 RBC Morphology Not Reportable 09/02/16 05:00 Dimorphic RBCs Not Reportable 09/02/16 05:00 Polychromasia Rare 09/02/16 05:00 Hypochromasia Not Reportable 09/02/16 05:00 Poikilocytosis Not Reportable 09/02/16 05:00 Anisocytosis 1+ 09/02/16 05:00 Microcytosis Not Reportable 09/02/16 05:00 Macrocytosis 1+ 09/02/16 05:00 Spherocytes Not Reportable 09/02/16 05:00 Pappenheimer Bodies Not Reportable 09/02/16 05:00 Sickle Cells Not Reportable 09/02/16 05:00 Target Cells Not Reportable 09/02/16 05:00 Tear Drop Cells Not Reportable 09/02/16 05:00 Ovalocytes Not Reportable 09/02/16 05:00 Helmet Cells Not Reportable 09/02/16 05:00 Patterson-Balta Bodies Not Reportable 09/02/16 05:00 Boscobel Rings Not Reportable 09/02/16 05:00 Dana Cells Not Reportable 09/02/16 05:00 Bite Cells Not Reportable 09/02/16 05:00 Crenated Cell Not Reportable 09/02/16 05:00 Elliptocytes Not Reportable 09/02/16 05:00 Acanthocytes (Spur) Not Reportable 09/02/16 05:00 Rouleaux Not Reportable 09/02/16 05:00 Hemoglobin C Crystals Not Reportable 09/02/16 05:00 Schistocytes Not Reportable 09/02/16 05:00 Malaria parasites Not Reportable 09/02/16 05:00 Manny Bodies Not Reportable 09/02/16 05:00 Hem Pathologist Commnt No 09/02/16 05:00 PT 16.8 Sec. (12.2-14.9) H 09/04/16 06:37 INR 1.37 (0.87-1.13) H 09/04/16 06:37 APTT 29.5 Sec. (24.2-36.6) 08/29/16 17:40 POC ABG pH 7.544 (7.35-7.45) H 09/04/16 04:27 POC ABG pCO2 30.8 (35-45) L 09/04/16 04:27 POC ABG pO2 78 (80-105) L 09/04/16 04:27 POC ABG HCO3 26.6 09/04/16 04:27 POC ABG Total CO2 28 09/04/16 04:27 POC ABG O2 Sat 97 09/04/16 04:27 POC ABG Base Excess 4 09/04/16 04:27 VBG pH 7.366 (7.320-7.420) 08/29/16 17:40 FiO2 30 % 09/04/16 04:27 Sodium 141 mmol/L (137-145) 09/04/16 06:39 Potassium 4.9 mmol/L (3.6-5.0) D 09/04/16 06:39 Chloride 102.3 mmol/L (98-107) 09/04/16 06:39 Carbon Dioxide 24 mmol/L (22-30) 09/04/16 06:39 Anion Gap 20 mmol/L 09/04/16 06:39 BUN 14 mg/dL (7-17) 09/04/16 06:39 Creatinine 1.4 mg/dL (0.7-1.2) H 09/04/16 06:39 Estimated GFR 46 ml/min 09/04/16 06:39 BUN/Creatinine Ratio 10.00 % 09/04/16 06:39 Glucose 201 mg/dL (65-100) H 09/04/16 06:39 POC Glucose 176 (70-105) H 09/04/16 12:14 Lactic Acid 1.90 mmol/L (0.7-2.0) 08/31/16 04:20 Calcium 7.1 mg/dL (8.4-10.2) L 09/04/16 06:39 Phosphorus 3.60 mg/dL (2.5-4.5) 08/29/16 21:59 Magnesium 1.80 mg/dL (1.7-2.3) 08/29/16 21:59 Total Bilirubin 1.30 mg/dL (0.1-1.2) H 09/01/16 04:00 AST 138 units/L (5-40) H 09/01/16 04:00 ALT 53 units/L (7-56) 09/01/16 04:00 Alkaline Phosphatase 520 units/L (35-129) H 09/01/16 04:00 Ammonia 70.0 umol/L (25-60) H 08/31/16 04:20 Total Creatine Kinase 28 units/L (30-135) L 08/29/16 17:40 CK-MB (CK-2) < 1.0 ng/mL (0.0-4.0) 08/29/16 17:40 CK-MB (CK-2) Rel Index 3.5 (0-4) 08/29/16 17:40 Troponin T 0.109 ng/mL (0.00-0.029) H* D 08/31/16 15:45 C-Reactive Protein 10.20 mg/dL (0.00-1.30) H 08/30/16 22:20 NT-Pro-B Natriuret Pep 1712 pg/mL (0-900) H 08/29/16 17:40 Total Protein 6.1 g/dL (6.3-8.2) L 09/01/16 04:00 Albumin 1.2 g/dL (3.9-5) L 09/01/16 04:00 Albumin/Globulin Ratio 0.2 % 09/01/16 04:00 Prealbumin 0.120 g/L (0.200-0.400) L 08/29/16 21:59 Triglycerides 225 mg/dL (2-149) H 08/29/16 17:40 Cholesterol 130 mg/dL (50-199) 08/29/16 17:40 LDL Cholesterol Direct 82 mg/dL (50-130) 08/29/16 17:40 HDL Cholesterol 3 mg/dL (40-59) L 08/29/16 17:40 Cholesterol/HDL Ratio 43.33 % 08/29/16 17:40 Urine Color Yellow (Yellow) 08/31/16 15:37 Urine Turbidity Clear (Clear) 08/31/16 15:37 Urine pH 5.0 (5.0-7.0) 08/31/16 15:37 Ur Specific Bryant 1.009 (1.003-1.030) 08/31/16 15:37 Urine Protein <15 mg/dl mg/dL (Negative) 08/31/16 15:37 Urine Glucose (UA) Neg mg/dL (Negative) 08/31/16 15:37 Urine Ketones Neg mg/dL (Negative) 08/31/16 15:37 Urine Blood Sm (Negative) 08/31/16 15:37 Urine Nitrite Neg (Negative) 08/31/16 15:37 Urine Bilirubin Neg (Negative) 08/31/16 15:37 Urine Urobilinogen < 2.0 mg/dL (<2.0) 08/31/16 15:37 Ur Leukocyte Esterase Sm (Negative) 08/31/16 15:37 Urine WBC (Auto) 3.0 /HPF (0.0-6.0) 08/31/16 15:37 Urine RBC (Auto) 1.0 /HPF (0.0-6.0) 08/31/16 15:37 U Epithel Cells (Auto) < 1.0 /HPF (0-13.0) 08/31/16 15:37 Urine Bacteria (Auto) 1+ /HPF (Negative) 08/31/16 15:37 Hyaline Casts 5 /LPF 08/31/16 15:37 Urine Mucus Few /HPF 08/31/16 15:37 Blood Type O POSITIVE 08/29/16 18:15 Antibody Screen TNR 08/29/16 18:15 PATRICK Antibody Screen Negative 08/29/16 18:15 Crossmatch See Detail 08/29/16 18:15
[2016-09-04] MEDS ORDERED: KEPPRA 500 MG in D5W 100 ML IV ONE ×2 (15:00→16:00)
[2016-09-04] MEDS ORDERED: KEPPRA 1,000 MG in D5W 100 ML IV ONE (15:00)
[2016-09-04] MEDS: ATIVAN IV PRN ×5 (20:21→23:47)
[2016-09-04] MEDS ORDERED: NACL 0.9% 500 ML 500 ML ONE (20:52)
[2016-09-05] MEDS ORDERED: DILANTIN 1,000 MG in NACL 0.9% 250ML 250 ML IV ONE
[2016-09-05] MEDS: KEPPRA PO SCH ×3 (00:50→22:18)
[2016-09-05] MEDS: NOVOLOG SUB-Q SCH ×4 (01:15→17:52)
[2016-09-05] MEDS: LASIX IV SCH ×3 (01:16→22:50)
[2016-09-05] MEDS: ATIVAN IV PRN ×5 (01:32→03:05)
[2016-09-05] MEDS: POTASSIUM CHLORIDE PO SCH (01:39)
[2016-09-05] MEDS: DUONEB 0.5 MG-3 MG/3 ML SOLN IH SCH ×4 (02:20→19:30)
[2016-09-05] MEDS ORDERED: VASELINE LIP THERAPY TP PRN ×2 (02:46→09:55)
[2016-09-05] MEDS ORDERED: ARTIFICIAL TEARS OPHTH OINT OU PRN (02:46)
[2016-09-05] MEDS: ATIVAN 100 MG in NACL 0.9% 50 ML, VIAFLEX EMPTY CONTAINER 0 ML IV SCH ×2 (03:25→18:51)
[2016-09-05 05:17] LABS: Hematocrit 28.3 % (30.3-42.9); Hemoglobin 8.5 gm/dl (10.1-14.3); Mean Corpuscular HGB Conc 30 % (30-34); Mean Corpuscular Hemoglobin 27 pg (28-32); Mean Corpuscular Volume 91 fl (79-97); Platelet Count 168 K/mm3 (140-440); Red Blood Count 3.11 M/mm3 (3.65-5.03)
[2016-09-05 05:20] LABS: White Blood Count 31.9 K/mm3 (4.5-11.0)
[2016-09-05 05:26] LABS: INR 1.41 (0.87-1.13)
[2016-09-05 05:36] LABS: BUN/Creatinine Ratio 14.37; Calcium 7.1 mg/dL (8.4-10.2); Chloride 96.6 mmol/L (98-107); Potassium 5.5 mmol/L (3.6-5.0)
[2016-09-05 05:48] LABS: ISTAT Base Excess -2; ISTAT HCO3 25.6; ISTAT PCO2 61.6 (35-45); ISTAT PH 7.226 (7.35-7.45); ISTAT PO2 68 (80-105); ISTAT SO2 89; ISTAT TCO2 27
--- NOTE | 2016-09-05 05:52 | Event Note ---
Date: 09/05/16 Patient with status epilepticus unresponsive to IV Ativan Nurse reports that patient started seizing on day shift IV Dilantin loading dose given, patient still seizing Ativan drip was started, frequency of seizure decreases Will give phenobarb, obtain CT head Please have neurology follow up with patient D/c fentanyl drip, patient not on fentanyl Critical care 35 minutes
[2016-09-05] MEDS ORDERED: NACL 0.9% IV ONE (06:00)
[2016-09-05] MEDS ORDERED: PHENOBARBITAL IV ONE (06:00)
[2016-09-05] MEDS: ZAROXOLYN PO SCH (06:41)
[2016-09-05] MEDS ORDERED: KIONEX PO ONE ×2 (06:58→08:17)
[2016-09-05] MEDS: LEVOPHED DRIP 4 MG/NS 250 ML 4 MG/250 ML BAG IV SCH ×3 (07:40→22:44)
--- NOTE | 2016-09-05 07:56 | Progress Note ---
Assessment and Plan - Patient Problems (1) RORY (acute kidney injury) Current Visit: No Status: Acute Plan to address problem: Acute Kidney Injury is hemodynamically mediated in the setting of hypotension / shock. Renal function is stable. Continue current treatment. (2) Hyperkalemia Current Visit: No Status: Acute Plan to address problem: Kayexalate ordered. (3) Shock Current Visit: Yes Status: Acute Plan to address problem: On Levophed. (4) Respiratory failure Current Visit: Yes Status: Acute Qualifiers: Chronicity: C Respiratory failure complication: R Plan to address problem: On vent. (5) Altered mental status Current Visit: Yes Status: Acute Qualifiers: Altered mental status type: unspecified Coma depth: C Coma timing: C Qualified Code(s): R41.82 - Altered mental status, unspecified (6) Anemia Current Visit: Yes Status: Acute Qualifiers: Anemia type: unspecified type Iron deficiency anemia type: I Vitamin B12 deficiency anemia type: V Folate deficiency anemia type: F Bone marrow failure anemia type: B Hemolytic anemia type: H Other causes of anemia: O Qualified Code(s): D64.9 - Anemia, unspecified Plan to address problem: S/p PRBC. Subjective Date of service: 09/05/16 Interval history: Patient remain on the vent. Objective - Vital Signs Vital signs: Vital Signs - 12hr 09/04/16 09/04/16 09/04/16 20:00 20:16 20:17 Temperature Pulse Rate 102 H 100 H Pulse Rate [ 101 H Anterior Bilateral Throughout] Respiratory 16 17 Rate Respiratory 17 Rate [Anterior Bilateral Throughout] Blood Pressure 109/60 100/49 O2 Sat by Pulse 91 78 L Oximetry 09/04/16 09/04/16 09/04/16 20:30 20:46 21:00 Temperature Pulse Rate 101 H 100 H 97 H Pulse Rate [ Anterior Bilateral Throughout] Respiratory 19 28 H 19 Rate Respiratory Rate [Anterior Bilateral Throughout] Blood Pressure 100/49 118/56 102/51 O2 Sat by Pulse 92 97 90 Oximetry 09/04/16 09/04/16 09/04/16 21:02 21:15 21:17 Temperature 98.5 F 97.8 F Pulse Rate 100 H 97 H 96 H Pulse Rate [ Anterior Bilateral Throughout] Respiratory 24 18 19 Rate Respiratory Rate [Anterior Bilateral Throughout] Blood Pressure 105/45 108/50 102/51 O2 Sat by Pulse 92 90 93 Oximetry 09/04/16 09/04/16 09/04/16 21:30 21:45 21:47 Temperature 97.6 F Pulse Rate 97 H 97 H 95 H Pulse Rate [ Anterior Bilateral Throughout] Respiratory 18 16 16 Rate Respiratory Rate [Anterior Bilateral Throughout] Blood Pressure 115/59 114/57 115/59 O2 Sat by Pulse 91 92 Oximetry 09/04/16 09/04/16 09/04/16 22:00 22:16 22:30 Temperature Pulse Rate 97 H 94 H 94 H Pulse Rate [ Anterior Bilateral Throughout] Respiratory 18 15 22 Rate Respiratory Rate [Anterior Bilateral Throughout] Blood Pressure 113/59 100/49 110/45 O2 Sat by Pulse 93 Oximetry 09/04/16 09/04/16 09/04/16 22:40 22:46 23:00 Temperature 97.8 F Pulse Rate 96 H 97 H 94 H Pulse Rate [ Anterior Bilateral Throughout] Respiratory 16 14 17 Rate Respiratory Rate [Anterior Bilateral Throughout] Blood Pressure 110/45 110/45 87/42 O2 Sat by Pulse 93 94 Oximetry 09/04/16 09/04/16 09/04/16 23:08 23:12 23:30 Temperature 97.8 F 98.3 F Pulse Rate 96 H 98 H 97 H Pulse Rate [ Anterior Bilateral Throughout] Respiratory 16 16 26 H Rate Respiratory Rate [Anterior Bilateral Throughout] Blood Pressure 87/42 87/42 77/43 O2 Sat by Pulse 94 94 96 Oximetry 09/04/16 09/05/16 09/05/16 23:43 00:00 00:01 Temperature 97.8 F 98.2 F Pulse Rate 96 H 97 H 94 H Pulse Rate [ Anterior Bilateral Throughout] Respiratory 23 16 Rate Respiratory Rate [Anterior Bilateral Throughout] Blood Pressure 87/42 102/48 102/48 O2 Sat by Pulse 96 98 94 Oximetry 09/05/16 09/05/16 09/05/16 00:15 00:20 00:30 Temperature 98.4 F 98.5 F Pulse Rate 96 H 96 H Pulse Rate [ Anterior Bilateral Throughout] Respiratory 19 17 Rate Respiratory Rate [Anterior Bilateral Throughout] Blood Pressure 114/52 114/52 O2 Sat by Pulse 92 90 Oximetry 09/05/16 09/05/16 09/05/16 00:46 01:00 01:05 Temperature 98.5 F Pulse Rate 96 H 82 80 Pulse Rate [ Anterior Bilateral Throughout] Respiratory 18 25 H 28 H Rate Respiratory Rate [Anterior Bilateral Throughout] Blood Pressure 114/52 96/48 96/49 O2 Sat by Pulse 93 94 95 Oximetry 09/05/16 09/05/16 09/05/16 01:16 01:30 01:46 Temperature Pulse Rate 80 80 85 Pulse Rate [ Anterior Bilateral Throughout] Respiratory 17 17 26 H Rate Respiratory Rate [Anterior Bilateral Throughout] Blood Pressure 80/44 90/45 90/45 O2 Sat by Pulse 92 89 Oximetry 09/05/16 09/05/16 09/05/16 02:00 02:07 02:10 Temperature Pulse Rate 85 Pulse Rate [ 90 Anterior Bilateral Throughout] Respiratory 20 Rate Respiratory 31 H Rate [Anterior Bilateral Throughout] Blood Pressure 114/59 114/59 O2 Sat by Pulse 91 Oximetry 09/05/16 09/05/16 09/05/16 02:20 02:30 03:20 Temperature Pulse Rate 90 89 92 H Pulse Rate [ Anterior Bilateral Throughout] Respiratory 26 H 32 H 15 Rate Respiratory Rate [Anterior Bilateral Throughout] Blood Pressure 90/45 90/45 107/73 O2 Sat by Pulse 93 89 94 Oximetry 09/05/16 09/05/16 09/05/16 03:30 04:00 04:10 Temperature 97.8 F Pulse Rate 91 H 95 H 90 Pulse Rate [ Anterior Bilateral Throughout] Respiratory 18 29 H 18 Rate Respiratory Rate [Anterior Bilateral Throughout] Blood Pressure 107/73 107/73 121/69 O2 Sat by Pulse 92 93 88 Oximetry 09/05/16 09/05/16 09/05/16 04:30 05:00 05:20 Temperature Pulse Rate 92 H 91 H 90 Pulse Rate [ Anterior Bilateral Throughout] Respiratory 20 18 21 Rate Respiratory Rate [Anterior Bilateral Throughout] Blood Pressure 124/76 100/67 100/67 O2 Sat by Pulse 91 92 98 Oximetry 09/05/16 09/05/16 05:40 07:41 Temperature Pulse Rate 88 85 Pulse Rate [ 85 Anterior Bilateral Throughout] Respiratory 21 Rate Respiratory 27 H Rate [Anterior Bilateral Throughout] Blood Pressure 118/67 O2 Sat by Pulse 99 100 Oximetry - General Appearance General appearance: well-developed, well-nourished, appears stated age, obese, intubated (FiO2 50%) EENT: ATNC, PERRL Neck: supple Respiratory: Present: Clear to Ascultation Cardiology: regular, S1S2, no murmurs Gastrointestinal: normoactive bowel sounds, obese Integumentary: no rash Neurologic: other (opens eyes) Musculoskeletal: other (2+ pitting edema of both LEs noted) - Lab 09/06/16 03:30 09/06/16 03:30 Most recent lab results Calcium 7.1 mg/dL (8.4-10.2) L 09/05/16 04:30 Phosphorus 3.60 mg/dL (2.5-4.5) 08/29/16 21:59 Magnesium 1.80 mg/dL (1.7-2.3) 08/29/16 21:59
[2016-09-05] MEDS: LEVEMIR SUB-Q SCH (09:25)
[2016-09-05] MEDS: PROTONIX PO SCH (09:25)
[2016-09-05] MEDS: FOLVITE PO SCH (09:25)
--- NOTE | 2016-09-05 09:41 | XRay Report ---
AP CHEST: HISTORY: Followup respiratory failure Lines and support devices are unchanged since yesterday's exam. Heart size is stable at the upper limits of normal. Bilateral congestive changes are again noted. Hazy opacity in the right lung has decreased slightly. Small pleural effusions and mild bibasilar atelectasis are suspected and not significantly changed. No new acute process is appreciated.
[2016-09-05] MEDS: DIPRIVAN 10 MG/ML 1,000 MG/100 ML BOTTLE IV SCH (10:12)
--- NOTE | 2016-09-05 11:46 | Progress Note ---
Assessment and Plan - Patient Problems (1) Leukocytosis, unspecified Current Visit: Yes Status: Acute Qualifiers: Leukocytosis type: L Plan to address problem: Increased, but patient is on steroids. Zosyn course completed. Recommend monitoring clinically for any infection concerns. Subjective Date of service: 09/05/16 Interval history: Remains in ICU. Seizure-like activity today. Objective - Exam Narrative Exam: morbidly obese woman with generalized seizure-like movements; spouse at bedside - Constitutional Vitals: Vital Signs Temp Pulse Resp BP Pulse Ox 99.3 F 90 21 113/48 99 09/05/16 08:00 09/05/16 11:30 09/05/16 11:30 09/05/16 11:30 09/05/16 11:30 Temperature -Last 24 Hours Temperature 99.3 F Temperature 97.8 F Temperature 98.5 F Temperature 98.5 F Temperature 98.4 F Temperature 98.2 F Temperature 97.8 F Temperature 98.3 F Temperature 97.8 F Temperature 97.8 F Temperature 97.8 F Temperature 97.6 F Temperature 97.8 F Temperature 98.5 F Temperature 98.6 F Temperature 97.8 F General appearance: Present: obese - EENT Eyes: no scleral icterus ENT: other (ET and Dobhoff tubes in place) - Neck Neck: supple - Respiratory Respiratory: bilateral: CTA (FiO2 50%), diminished - Cardiovascular Rhythm: regular Heart Sounds: Present: S1 & S2 Extremity abnormal: edema (trace edema) - Gastrointestinal General gastrointestinal: Present: soft, non-distended - Genitourinary Female genitourinary: other (Jose catheter) - Integumentary Integumentary: no rash (chronic intertrigo between thighs) - Neurologic Neurologic: other (seizures) - Additional findings Additional findings: left subclavian central line - Labs CBC & Chem 7: 09/05/16 04:30 09/05/16 04:30 Labs: Abnormal lab results 09/04/16 09/04/16 09/04/16 Range/Units 12:14 15:47 17:41 WBC (4.5-11.0) K/mm3 RBC (3.65-5.03) M/mm3 Hgb (10.1-14.3) gm/dl Hct (30.3-42.9) % MCH (28-32) pg RDW (13.2-15.2) % PT (12.2-14.9) Sec. INR (0.87-1.13) POC ABG pH (7.35-7.45) POC ABG pCO2 (35-45) POC ABG pO2 (80-105) Sodium (137-145) mmol/L Potassium (3.6-5.0) mmol/L Chloride (98-107) mmol/L BUN (7-17) mg/dL Creatinine (0.7-1.2) mg/dL Glucose (65-100) mg/dL POC Glucose 176 H 218 H (70-105) Calcium (8.4-10.2) mg/dL Crossmatch See Detail 09/04/16 09/04/16 09/05/16 Range/Units 21:59 23:48 04:30 WBC (4.5-11.0) K/mm3 RBC (3.65-5.03) M/mm3 Hgb (10.1-14.3) gm/dl Hct (30.3-42.9) % MCH (28-32) pg RDW (13.2-15.2) % PT 17.2 H (12.2-14.9) Sec. INR 1.41 H (0.87-1.13) POC ABG pH (7.35-7.45) POC ABG pCO2 (35-45) POC ABG pO2 (80-105) Sodium (137-145) mmol/L Potassium (3.6-5.0) mmol/L Chloride (98-107) mmol/L BUN (7-17) mg/dL Creatinine (0.7-1.2) mg/dL Glucose (65-100) mg/dL POC Glucose 170 H 121 H (70-105) Calcium (8.4-10.2) mg/dL Crossmatch 09/05/16 09/05/16 09/05/16 Range/Units 04:30 04:30 05:09 WBC 31.9 H (4.5-11.0) K/mm3 RBC 3.11 L (3.65-5.03) M/mm3 Hgb 8.5 L (10.1-14.3) gm/dl Hct 28.3 L D (30.3-42.9) % MCH 27 L (28-32) pg RDW 21.0 H (13.2-15.2) % PT (12.2-14.9) Sec. INR (0.87-1.13) POC ABG pH 7.226 L (7.35-7.45) POC ABG pCO2 61.6 H (35-45) POC ABG pO2 68 L (80-105) Sodium 134 L (137-145) mmol/L Potassium 5.5 H (3.6-5.0) mmol/L Chloride 96.6 L (98-107) mmol/L BUN 23 H (7-17) mg/dL Creatinine 1.6 H (0.7-1.2) mg/dL Glucose 116 H (65-100) mg/dL POC Glucose (70-105) Calcium 7.1 L (8.4-10.2) mg/dL Crossmatch 09/05/16 Range/Units 05:33 WBC (4.5-11.0) K/mm3 RBC (3.65-5.03) M/mm3 Hgb (10.1-14.3) gm/dl Hct (30.3-42.9) % MCH (28-32) pg RDW (13.2-15.2) % PT (12.2-14.9) Sec. INR (0.87-1.13) POC ABG pH (7.35-7.45) POC ABG pCO2 (35-45) POC ABG pO2 (80-105) Sodium (137-145) mmol/L Potassium (3.6-5.0) mmol/L Chloride (98-107) mmol/L BUN (7-17) mg/dL Creatinine (0.7-1.2) mg/dL Glucose (65-100) mg/dL POC Glucose 114 H (70-105) Calcium (8.4-10.2) mg/dL Crossmatch - Imaging and cardiology Chest x-ray: report reviewed (small effusions, no acute process)
--- NOTE | 2016-09-05 12:34 | Progress Note ---
Assessment and Plan - Patient Problems (1) Respiratory failure Current Visit: Yes Status: Acute Qualifiers: Chronicity: C Respiratory failure complication: R Plan to address problem: Currently on mechanical ventilatory support AC-VC 16/500/PEEP5/30% ABG 7.226/61.6/68/.Continue with MVS, increase FIO2 to 50% and increase rate to 20. VAP bundle addressed Wean FIO2 for O2 sats>92% HOB>40, aspiration precautions VTE prophylaxis- discontinue enoxaparin in view of anemia and use SCDs Stress ulcer prophylaxis- Pantoprazole Sedation/Analgesia-propofol, lorazepam Lung protective strategies Suspend SBTs until seizures are better controlled Adjust minute ventilation for better gas-exchange. Continue with enteric feedings, monitor accucheck, glycemic control- keep blood glucose<180mg/dl (2) Shock Current Visit: Yes Status: Acute Plan to address problem: Treated as septic shock secondary to HCAP - Wean vasopressor support for MAP>65 On Norepinephrine at 10mcg Cultures negative with worsening leukocytosis. ID following On steroid therapy for possible COPD with AE (3) Acute on chronic diastolic (congestive) heart failure Current Visit: No Status: Acute Plan to address problem: Documented EF 55% Increased diuretic while monitoring renal function and electrolyte profile closely Monitor urine output, electrolyte profile and electrolytes while on diuretics (4) Altered mental status Current Visit: Yes Status: Acute Qualifiers: Altered mental status type: unspecified Coma depth: C Coma timing: C Qualified Code(s): R41.82 - Altered mental status, unspecified Plan to address problem: Suspect this is metabolic/toxic encephalopathy . Neurology following. Seizure activity noted this morning. IV Lorazepam give. Keppra started. Neurology following (5) Morbid obesity Current Visit: Yes Status: Acute Qualifiers: Obesity type: unspecified obesity type Qualified Code(s): E66.01 - Morbid ( severe) obesity due to excess calories (6) Anemia Current Visit: Yes Status: Acute Qualifiers: Anemia type: unspecified type Iron deficiency anemia type: I Vitamin B12 deficiency anemia type: V Folate deficiency anemia type: F Bone marrow failure anemia type: B Hemolytic anemia type: H Other causes of anemia: O Qualified Code(s): D64.9 - Anemia, unspecified Plan to address problem: On IV iron therapy with supplements. As per admission documentation, the patient elects not to be transfused Significant other signed consent for blood transfusion this morning (7) Status epilepticus Current Visit: Yes Status: Acute (8) Status epilepticus due to refractory complex partial seizures Current Visit: Yes Status: Acute Plan to address problem: On lorazepam infusion, propofol Keppra and Dilantin Neurology following. This could be secondary to an intracranial process, however unable to obtain neuro imaging, patient's weight exceeds allowable maximum (9) Discharge planning issues Current Visit: Yes Status: Acute Plan to address problem: Needs leukocytosis addressed and recent seizure activity. Discussed with case management - will need LTACH Subjective Date of service: 09/05/16 Interval history: No acute overnight events. Boyfriend at the bedside. More awake today, though she still does not obey commands. Sedation has been discontinued. On empiric antibiotics for possible HCAP- will completed a 7 day course Remains orally intubated. Seen and examined. Vitals, labs, medications, chart and imaging reviewed. On going seizures overnight. Had one while I was evaluating her. Currently on IV lorazepam infusion, IV propofol. Received dilantin loading, and is on IV Keppra. Her son and niece are at the bedside Objective - Exam Narrative Exam: GEN: Critically ill, morbid obese BMI 81.6, intubated HEENT: Pupils are pinpoint and reactive, ET tube in place Orofacial twitching NECK: SUPPLE, NO THYROMEGALY, NO JVD, NO LAD CVS: regular irregular NORMAL S1S2 LUNGS/CHEST: TA B, NORMAL CHEST EXPANSION B, GOOD AIR ENTRY B ABD: SOFT, NONDISTENDED GBS, NO REBOUND OR GUARDING NEURO: Sedated EXTREMITIES- bilateral lower extremity edema, improving Vital Signs - 12hr 09/05/16 09/05/16 09/05/16 00:46 00:50 01:00 Temperature Pulse Rate 96 H 82 Pulse Rate [ Anterior Bilateral Throughout] Pulse Rate [ 96 H From Monitor] Respiratory 18 18 25 H Rate Respiratory Rate [Anterior Bilateral Throughout] Blood Pressure 114/52 96/48 O2 Sat by Pulse 93 93 94 Oximetry 09/05/16 09/05/16 09/05/16 01:05 01:16 01:30 Temperature 98.5 F Pulse Rate 80 80 80 Pulse Rate [ Anterior Bilateral Throughout] Pulse Rate [ From Monitor] Respiratory 28 H 17 17 Rate Respiratory Rate [Anterior Bilateral Throughout] Blood Pressure 96/49 80/44 90/45 O2 Sat by Pulse 95 92 89 Oximetry 09/05/16 09/05/16 09/05/16 01:46 02:00 02:07 Temperature Pulse Rate 85 85 Pulse Rate [ Anterior Bilateral Throughout] Pulse Rate [ From Monitor] Respiratory 26 H 20 Rate Respiratory Rate [Anterior Bilateral Throughout] Blood Pressure 90/45 114/59 114/59 O2 Sat by Pulse 91 Oximetry 09/05/16 09/05/16 09/05/16 02:10 02:20 02:30 Temperature Pulse Rate 90 89 Pulse Rate [ 90 Anterior Bilateral Throughout] Pulse Rate [ From Monitor] Respiratory 26 H 32 H Rate Respiratory 31 H Rate [Anterior Bilateral Throughout] Blood Pressure 90/45 90/45 O2 Sat by Pulse 93 89 Oximetry 09/05/16 09/05/16 09/05/16 03:20 03:30 04:00 Temperature 97.8 F Pulse Rate 92 H 91 H 95 H Pulse Rate [ Anterior Bilateral Throughout] Pulse Rate [ From Monitor] Respiratory 15 18 29 H Rate Respiratory Rate [Anterior Bilateral Throughout] Blood Pressure 107/73 107/73 107/73 O2 Sat by Pulse 94 92 93 Oximetry 09/05/16 09/05/16 09/05/16 04:10 04:30 04:49 Temperature Pulse Rate 90 92 H Pulse Rate [ Anterior Bilateral Throughout] Pulse Rate [ 90 From Monitor] Respiratory 18 20 20 Rate Respiratory Rate [Anterior Bilateral Throughout] Blood Pressure 121/69 124/76 O2 Sat by Pulse 88 91 93 Oximetry 09/05/16 09/05/16 09/05/16 05:00 05:20 05:40 Temperature Pulse Rate 91 H 90 88 Pulse Rate [ Anterior Bilateral Throughout] Pulse Rate [ From Monitor] Respiratory 18 21 21 Rate Respiratory Rate [Anterior Bilateral Throughout] Blood Pressure 100/67 100/67 118/67 O2 Sat by Pulse 92 98 99 Oximetry 09/05/16 09/05/16 09/05/16 05:46 06:00 06:30 Temperature Pulse Rate 90 93 H 87 Pulse Rate [ Anterior Bilateral Throughout] Pulse Rate [ From Monitor] Respiratory 20 20 21 Rate Respiratory Rate [Anterior Bilateral Throughout] Blood Pressure 118/67 116/67 165/145 O2 Sat by Pulse 99 99 Oximetry 09/05/16 09/05/16 09/05/16 06:46 07:00 07:16 Temperature Pulse Rate 88 87 87 Pulse Rate [ Anterior Bilateral Throughout] Pulse Rate [ From Monitor] Respiratory 21 21 24 Rate Respiratory Rate [Anterior Bilateral Throughout] Blood Pressure 116/62 116/62 116/62 O2 Sat by Pulse 100 Oximetry 09/05/16 09/05/16 09/05/16 07:30 07:41 07:46 Temperature Pulse Rate 86 85 86 Pulse Rate [ 85 Anterior Bilateral Throughout] Pulse Rate [ 87 From Monitor] Respiratory 21 22 Rate Respiratory 27 H Rate [Anterior Bilateral Throughout] Blood Pressure 86/46 72/12 O2 Sat by Pulse 99 100 99 Oximetry 09/05/16 09/05/16 09/05/16 07:55 08:00 08:15 Temperature 99.3 F Pulse Rate 88 87 Pulse Rate [ 92 H Anterior Bilateral Throughout] Pulse Rate [ From Monitor] Respiratory 18 21 Rate Respiratory 21 Rate [Anterior Bilateral Throughout] Blood Pressure 72/12 114/53 O2 Sat by Pulse 100 99 Oximetry 09/05/16 09/05/16 09/05/16 08:30 08:45 09:00 Temperature Pulse Rate 88 88 91 H Pulse Rate [ Anterior Bilateral Throughout] Pulse Rate [ From Monitor] Respiratory 21 29 H 25 H Rate Respiratory Rate [Anterior Bilateral Throughout] Blood Pressure 114/53 94/49 94/49 O2 Sat by Pulse 89 100 99 Oximetry 09/05/16 09/05/16 09/05/16 09:16 09:30 09:46 Temperature Pulse Rate 92 H 93 H 95 H Pulse Rate [ Anterior Bilateral Throughout] Pulse Rate [ From Monitor] Respiratory 21 21 29 H Rate Respiratory Rate [Anterior Bilateral Throughout] Blood Pressure 58/34 118/51 175/129 O2 Sat by Pulse 76 L 100 89 Oximetry 09/05/16 09/05/16 09/05/16 10:00 10:15 10:30 Temperature Pulse Rate 91 H 93 H 89 Pulse Rate [ Anterior Bilateral Throughout] Pulse Rate [ From Monitor] Respiratory 21 21 15 Rate Respiratory Rate [Anterior Bilateral Throughout] Blood Pressure 175/129 108/48 98/50 O2 Sat by Pulse 97 99 98 Oximetry 09/05/16 09/05/16 09/05/16 10:46 11:00 11:15 Temperature Pulse Rate 89 91 H 94 H Pulse Rate [ Anterior Bilateral Throughout] Pulse Rate [ From Monitor] Respiratory 24 22 22 Rate Respiratory Rate [Anterior Bilateral Throughout] Blood Pressure 98/50 101/53 109/55 O2 Sat by Pulse 84 96 99 Oximetry 09/05/16 09/05/16 09/05/16 11:30 11:45 12:00 Temperature 99.1 F Pulse Rate 90 90 90 Pulse Rate [ Anterior Bilateral Throughout] Pulse Rate [ From Monitor] Respiratory 21 22 21 Rate Respiratory Rate [Anterior Bilateral Throughout] Blood Pressure 113/48 103/48 103/48 O2 Sat by Pulse 99 100 86 Oximetry 09/05/16 12:15 Temperature Pulse Rate 89 Pulse Rate [ Anterior Bilateral Throughout] Pulse Rate [ From Monitor] Respiratory 22 Rate Respiratory Rate [Anterior Bilateral Throughout] Blood Pressure 99/60 O2 Sat by Pulse Oximetry CBC and BMP: 09/05/16 04:30 09/05/16 17:25 ABG, PT/INR, D-dimer: ABG POC ABG pH 7.226 (7.35-7.45) L 09/05/16 05:09 POC ABG pCO2 61.6 (35-45) H 09/05/16 05:09 POC ABG pO2 68 (80-105) L 09/05/16 05:09 POC ABG HCO3 25.6 09/05/16 05:09 POC ABG Total CO2 27 09/05/16 05:09 POC ABG O2 Sat 89 09/05/16 05:09 PT/INR, D-dimer PT 17.2 Sec. (12.2-14.9) H 09/05/16 04:30 INR 1.41 (0.87-1.13) H 09/05/16 04:30 Abnormal lab findings: Abnormal Labs 08/29/16 08/30/16 08/30/16 21:59 00:16 05:39 WBC RBC Hgb Hct MCH MCHC RDW Seg Neutrophils % Seg Neuts % (Manual) Nucleated RBC % Seg Neutrophils # Seg Neutrophils # Man PT INR POC ABG pH POC ABG pCO2 POC ABG pO2 Sodium Potassium Chloride Carbon Dioxide BUN Creatinine Glucose POC Glucose 106 H 128 H Lactic Acid Calcium Total Bilirubin AST Alkaline Phosphatase Ammonia Troponin T C-Reactive Protein Total Protein Albumin Prealbumin 0.120 L Crossmatch 08/30/16 08/30/16 08/30/16 10:30 10:30 11:12 WBC 11.1 H RBC 3.16 L Hgb 8.7 L Hct 29.9 L MCH MCHC 29 L RDW 25.0 H Seg Neutrophils % 78.6 H Seg Neuts % (Manual) Nucleated RBC % Seg Neutrophils # 8.7 H Seg Neutrophils # Man PT INR POC ABG pH POC ABG pCO2 POC ABG pO2 Sodium 135 L Potassium Chloride Carbon Dioxide 20 L BUN Creatinine 1.5 H Glucose 148 H POC Glucose 142 H Lactic Acid Calcium 7.2 L Total Bilirubin 1.30 H AST 143 H Alkaline Phosphatase 392 H Ammonia Troponin T C-Reactive Protein Total Protein 6.1 L Albumin 1.2 L Prealbumin Crossmatch 08/30/16 08/30/16 08/30/16 17:41 18:03 18:18 WBC RBC Hgb Hct MCH MCHC RDW Seg Neutrophils % Seg Neuts % (Manual) Nucleated RBC % Seg Neutrophils # Seg Neutrophils # Man PT INR POC ABG pH 7.316 L POC ABG pCO2 POC ABG pO2 44 L 59 L Sodium Potassium Chloride Carbon Dioxide BUN Creatinine Glucose POC Glucose 150 H Lactic Acid Calcium Total Bilirubin AST Alkaline Phosphatase Ammonia Troponin T C-Reactive Protein Total Protein Albumin Prealbumin Crossmatch 08/30/16 08/30/16 08/31/16 22:20 22:20 00:11 WBC RBC Hgb Hct MCH MCHC RDW Seg Neutrophils % Seg Neuts % (Manual) Nucleated RBC % Seg Neutrophils # Seg Neutrophils # Man PT INR POC ABG pH POC ABG pCO2 POC ABG pO2 Sodium Potassium Chloride Carbon Dioxide BUN Creatinine Glucose POC Glucose 133 H Lactic Acid 2.30 H* Calcium Total Bilirubin AST Alkaline Phosphatase Ammonia Troponin T C-Reactive Protein 10.20 H Total Protein Albumin Prealbumin Crossmatch 08/31/16 08/31/16 08/31/16 04:20 04:20 04:20 WBC 18.3 H RBC 3.19 L Hgb 8.8 L Hct 30.0 L MCH 27 L MCHC 29 L RDW 23.9 H Seg Neutrophils % Seg Neuts % (Manual) Nucleated RBC % Seg Neutrophils # Seg Neutrophils # Man PT 16.8 H INR 1.37 H POC ABG pH POC ABG pCO2 POC ABG pO2 Sodium 136 L Potassium Chloride Carbon Dioxide 19 L BUN Creatinine 1.5 H Glucose 125 H POC Glucose Lactic Acid Calcium 7.0 L Total Bilirubin 1.50 H AST 131 H Alkaline Phosphatase 431 H Ammonia Troponin T C-Reactive Protein Total Protein 6.2 L Albumin 1.2 L Prealbumin Crossmatch 08/31/16 08/31/16 08/31/16 04:20 05:22 05:24 WBC RBC Hgb Hct MCH MCHC RDW Seg Neutrophils % Seg Neuts % (Manual) Nucleated RBC % Seg Neutrophils # Seg Neutrophils # Man PT INR POC ABG pH POC ABG pCO2 POC ABG pO2 142 H Sodium Potassium Chloride Carbon Dioxide BUN Creatinine Glucose POC Glucose 123 H Lactic Acid Calcium Total Bilirubin AST Alkaline Phosphatase Ammonia 70.0 H Troponin T C-Reactive Protein Total Protein Albumin Prealbumin Crossmatch 08/31/16 08/31/16 08/31/16 12:10 15:45 17:38 WBC RBC Hgb Hct MCH MCHC RDW Seg Neutrophils % Seg Neuts % (Manual) Nucleated RBC % Seg Neutrophils # Seg Neutrophils # Man PT INR POC ABG pH POC ABG pCO2 POC ABG pO2 Sodium 136 L Potassium Chloride Carbon Dioxide 21 L BUN Creatinine 1.5 H Glucose 160 H POC Glucose 147 H 151 H Lactic Acid Calcium 6.9 L Total Bilirubin AST Alkaline Phosphatase Ammonia Troponin T 0.109 H* D C-Reactive Protein Total Protein Albumin Prealbumin Crossmatch 09/01/16 09/01/16 09/01/16 00:09 04:00 04:00 WBC 14.8 H RBC 2.89 L Hgb 7.8 L Hct 27.2 L MCH 27 L MCHC 29 L RDW 24.4 H Seg Neutrophils % Seg Neuts % (Manual) Nucleated RBC % Seg Neutrophils # Seg Neutrophils # Man PT 18.2 H INR 1.51 H POC ABG pH POC ABG pCO2 POC ABG pO2 Sodium Potassium Chloride Carbon Dioxide BUN Creatinine Glucose POC Glucose 192 H Lactic Acid Calcium Total Bilirubin AST Alkaline Phosphatase Ammonia Troponin T C-Reactive Protein Total Protein Albumin Prealbumin Crossmatch 09/01/16 09/01/16 09/01/16 04:00 05:28 11:28 WBC RBC Hgb Hct MCH MCHC RDW Seg Neutrophils % Seg Neuts % (Manual) Nucleated RBC % Seg Neutrophils # Seg Neutrophils # Man PT INR POC ABG pH POC ABG pCO2 POC ABG pO2 Sodium Potassium Chloride Carbon Dioxide 20 L BUN Creatinine 1.6 H Glucose 183 H POC Glucose 189 H 207 H Lactic Acid Calcium 6.9 L Total Bilirubin 1.30 H AST 138 H Alkaline Phosphatase 520 H Ammonia Troponin T C-Reactive Protein Total Protein 6.1 L Albumin 1.2 L Prealbumin Crossmatch 05/23/17 05/23/17 05/24/17 16:56 23:49 05:00 WBC RBC Hgb Hct MCH MCHC RDW Seg Neutrophils % Seg Neuts % (Manual) Nucleated RBC % Seg Neutrophils # Seg Neutrophils # Man PT 18.0 H INR 1.49 H POC ABG pH POC ABG pCO2 POC ABG pO2 Sodium Potassium Chloride Carbon Dioxide BUN Creatinine Glucose POC Glucose 250 H 307 H Lactic Acid Calcium Total Bilirubin AST Alkaline Phosphatase Ammonia Troponin T C-Reactive Protein Total Protein Albumin Prealbumin Crossmatch 09/02/16 09/02/16 09/02/16 05:00 05:00 05:45 WBC 12.3 H RBC 2.57 L Hgb 7.1 L Hct 23.4 L MCH MCHC RDW 23.9 H Seg Neutrophils % Seg Neuts % (Manual) 72.0 H Nucleated RBC % 25.0 H Seg Neutrophils # Seg Neutrophils # Man 8.9 H PT INR POC ABG pH POC ABG pCO2 POC ABG pO2 Sodium Potassium Chloride Carbon Dioxide BUN Creatinine 1.4 H Glucose 299 H POC Glucose 327 H Lactic Acid Calcium 7.0 L Total Bilirubin AST Alkaline Phosphatase Ammonia Troponin T C-Reactive Protein Total Protein Albumin Prealbumin Crossmatch 09/02/16 09/02/16 09/02/16 12:22 17:22 23:24 WBC RBC Hgb Hct MCH MCHC RDW Seg Neutrophils % Seg Neuts % (Manual) Nucleated RBC % Seg Neutrophils # Seg Neutrophils # Cristian PT INR POC ABG pH POC ABG pCO2 POC ABG pO2 Sodium Potassium Chloride Carbon Dioxide BUN Creatinine Glucose POC Glucose 310 H 358 H 286 H Lactic Acid Calcium Total Bilirubin AST Alkaline Phosphatase Ammonia Troponin T C-Reactive Protein Total Protein Albumin Prealbumin Crossmatch 09/03/16 09/03/16 09/03/16 04:10 04:10 04:10 WBC 11.8 H RBC 2.29 L Hgb 6.1 L Hct 21.0 L MCH 27 L MCHC 29 L RDW 24.1 H Seg Neutrophils % Seg Neuts % (Manual) Nucleated RBC % Seg Neutrophils # Seg Neutrophils # Man PT 17.6 H INR 1.45 H POC ABG pH POC ABG pCO2 POC ABG pO2 Sodium Potassium Chloride Carbon Dioxide BUN Creatinine 1.4 H Glucose 301 H POC Glucose Lactic Acid Calcium 7.0 L Total Bilirubin AST Alkaline Phosphatase Ammonia Troponin T C-Reactive Protein Total Protein Albumin Prealbumin Crossmatch 05/25/17 05/25/17 05/25/17 05:59 11:36 17:42 WBC RBC Hgb Hct MCH MCHC RDW Seg Neutrophils % Seg Neuts % (Manual) Nucleated RBC % Seg Neutrophils # Seg Neutrophils # Man PT INR POC ABG pH POC ABG pCO2 POC ABG pO2 Sodium Potassium Chloride Carbon Dioxide BUN Creatinine Glucose POC Glucose 351 H 285 H 259 H Lactic Acid Calcium Total Bilirubin AST Alkaline Phosphatase Ammonia Troponin T C-Reactive Protein Total Protein Albumin Prealbumin Crossmatch 09/03/16 09/04/16 09/04/16 23:00 04:27 05:36 WBC RBC Hgb Hct MCH MCHC RDW Seg Neutrophils % Seg Neuts % (Manual) Nucleated RBC % Seg Neutrophils # Seg Neutrophils # Man PT INR POC ABG pH 7.544 H POC ABG pCO2 30.8 L POC ABG pO2 78 L Sodium Potassium Chloride Carbon Dioxide BUN Creatinine Glucose POC Glucose 192 H 228 H Lactic Acid Calcium Total Bilirubin AST Alkaline Phosphatase Ammonia Troponin T C-Reactive Protein Total Protein Albumin Prealbumin Crossmatch 09/04/16 09/04/16 09/04/16 06:37 06:37 06:39 WBC 21.0 H RBC 2.22 L Hgb 6.0 L Hct 20.1 L MCH 27 L MCHC RDW 24.3 H Seg Neutrophils % Seg Neuts % (Manual) Nucleated RBC % Seg Neutrophils # Seg Neutrophils # Man PT 16.8 H INR 1.37 H POC ABG pH POC ABG pCO2 POC ABG pO2 Sodium Potassium Chloride Carbon Dioxide BUN Creatinine 1.4 H Glucose 201 H POC Glucose Lactic Acid Calcium 7.1 L Total Bilirubin AST Alkaline Phosphatase Ammonia Troponin T C-Reactive Protein Total Protein Albumin Prealbumin Crossmatch 09/04/16 09/04/16 09/04/16 12:14 15:47 17:41 WBC RBC Hgb Hct MCH MCHC RDW Seg Neutrophils % Seg Neuts % (Manual) Nucleated RBC % Seg Neutrophils # Seg Neutrophils # Man PT INR POC ABG pH POC ABG pCO2 POC ABG pO2 Sodium Potassium Chloride Carbon Dioxide BUN Creatinine Glucose POC Glucose 176 H 218 H Lactic Acid Calcium Total Bilirubin AST Alkaline Phosphatase Ammonia Troponin T C-Reactive Protein Total Protein Albumin Prealbumin Crossmatch See Detail 09/04/16 09/04/16 09/05/16 21:59 23:48 04:30 WBC RBC Hgb Hct MCH MCHC RDW Seg Neutrophils % Seg Neuts % (Manual) Nucleated RBC % Seg Neutrophils # Seg Neutrophils # Man PT 17.2 H INR 1.41 H POC ABG pH POC ABG pCO2 POC ABG pO2 Sodium Potassium Chloride Carbon Dioxide BUN Creatinine Glucose POC Glucose 170 H 121 H Lactic Acid Calcium Total Bilirubin AST Alkaline Phosphatase Ammonia Troponin T C-Reactive Protein Total Protein Albumin Prealbumin Crossmatch 09/05/16 09/05/16 09/05/16 04:30 04:30 05:09 WBC 31.9 H RBC 3.11 L Hgb 8.5 L Hct 28.3 L D MCH 27 L MCHC RDW 21.0 H Seg Neutrophils % Seg Neuts % (Manual) Nucleated RBC % Seg Neutrophils # Seg Neutrophils # Man PT INR POC ABG pH 7.226 L POC ABG pCO2 61.6 H POC ABG pO2 68 L Sodium 134 L Potassium 5.5 H Chloride 96.6 L Carbon Dioxide BUN 23 H Creatinine 1.6 H Glucose 116 H POC Glucose Lactic Acid Calcium 7.1 L Total Bilirubin AST Alkaline Phosphatase Ammonia Troponin T C-Reactive Protein Total Protein Albumin Prealbumin Crossmatch 09/05/16 05:33 WBC RBC Hgb Hct MCH MCHC RDW Seg Neutrophils % Seg Neuts % (Manual) Nucleated RBC % Seg Neutrophils # Seg Neutrophils # Man PT INR POC ABG pH POC ABG pCO2 POC ABG pO2 Sodium Potassium Chloride Carbon Dioxide BUN Creatinine Glucose POC Glucose 114 H Lactic Acid Calcium Total Bilirubin AST Alkaline Phosphatase Ammonia Troponin T C-Reactive Protein Total Protein Albumin Prealbumin Crossmatch Allied health notes reviewed: RT
--- NOTE | 2016-09-05 12:37 | Progress Note ---
Assessment and Plan 1. Acute respiratory failure 2. Type 2 diabetes mellitus 3. Sepsis 4. Decubitus ulcer Plan. Echocardiogram shows normal left ventricular size and function with left ventricular ejection fraction of 50-55%. Continue antibiotic treatment to wean off ventilator. Subjective Date of service: 09/05/16 Interval history: Intubated and sedated Objective Vital Signs Temp Pulse Pulse Pulse Resp Resp BP 09/05/16 12:15 89 22 99/60 09/05/16 12:00 99.1 F 90 21 103/48 09/05/16 11:45 90 22 103/48 09/05/16 11:30 90 21 113/48 09/05/16 11:15 94 H 22 109/55 09/05/16 11:00 91 H 22 101/53 09/05/16 10:46 89 24 98/50 09/05/16 10:30 89 15 98/50 09/05/16 10:15 93 H 21 108/48 09/05/16 10:00 91 H 21 175/129 09/05/16 09:46 95 H 29 H 175/129 09/05/16 09:30 93 H 21 118/51 09/05/16 09:16 92 H 21 58/34 09/05/16 09:00 91 H 25 H 94/49 09/05/16 08:45 88 29 H 94/49 09/05/16 08:30 88 21 114/53 09/05/16 08:15 87 21 114/53 09/05/16 08:00 99.3 F 88 18 72/12 09/05/16 07:55 92 H 21 09/05/16 07:46 86 22 72/12 09/05/16 07:41 85 85 27 H 09/05/16 07:30 86 87 21 86/46 09/05/16 07:16 87 24 116/62 09/05/16 07:00 87 21 116/62 09/05/16 06:46 88 21 116/62 09/05/16 06:30 87 21 165/145 09/05/16 06:00 93 H 20 116/67 09/05/16 05:46 90 20 118/67 09/05/16 05:40 88 21 118/67 09/05/16 05:20 90 21 100/67 09/05/16 05:00 91 H 18 100/67 09/05/16 04:49 90 20 09/05/16 04:30 92 H 20 124/76 09/05/16 04:10 90 18 121/69 09/05/16 04:00 97.8 F 95 H 29 H 107/73 09/05/16 03:30 91 H 18 107/73 09/05/16 03:20 92 H 15 107/73 09/05/16 02:30 89 32 H 90/45 09/05/16 02:20 90 26 H 90/45 09/05/16 02:10 90 31 H 09/05/16 02:07 114/59 09/05/16 02:00 85 20 114/59 09/05/16 01:46 85 26 H 90/45 09/05/16 01:30 80 17 90/45 09/05/16 01:16 80 17 80/44 09/05/16 01:05 98.5 F 80 28 H 96/49 09/05/16 01:00 82 25 H 96/48 09/05/16 00:50 96 H 18 09/05/16 00:46 96 H 18 114/52 09/05/16 00:30 98.5 F 96 H 17 114/52 09/05/16 00:20 98.4 F 09/05/16 00:15 96 H 19 114/52 09/05/16 00:01 98.2 F 94 H 16 102/48 09/05/16 00:00 97.8 F 97 H 23 102/48 09/04/16 23:43 96 H 87/42 09/04/16 23:30 97 H 26 H 77/43 09/04/16 23:12 98.3 F 98 H 16 87/42 09/04/16 23:08 97.8 F 96 H 16 87/42 09/04/16 23:00 94 H 17 87/42 09/04/16 22:46 97 H 14 110/45 09/04/16 22:40 97.8 F 96 H 16 110/45 09/04/16 22:30 94 H 22 110/45 09/04/16 22:16 94 H 15 100/49 09/04/16 22:00 97 H 18 113/59 09/04/16 21:47 97.6 F 95 H 16 115/59 09/04/16 21:45 97 H 16 114/57 09/04/16 21:30 97 H 18 115/59 09/04/16 21:17 97.8 F 96 H 19 102/51 09/04/16 21:15 97 H 18 108/50 09/04/16 21:02 98.5 F 100 H 24 105/45 09/04/16 21:00 97 H 19 102/51 09/04/16 20:46 100 H 28 H 118/56 09/04/16 20:30 101 H 19 100/49 09/04/16 20:17 101 H 17 09/04/16 20:16 100 H 17 100/49 09/04/16 20:00 102 H 102 H 16 109/60 09/04/16 19:52 101 H 16 104/53 09/04/16 19:45 102 H 17 104/53 09/04/16 19:39 101 H 16 09/04/16 19:35 103 H 109/51 09/04/16 19:32 104 H 19 95/40 09/04/16 19:30 101 H 17 109/51 09/04/16 19:16 102 H 19 95/40 09/04/16 19:00 102 H 19 111/45 09/04/16 18:46 102 H 20 103/35 09/04/16 18:30 104 H 20 114/61 09/04/16 18:15 105 H 18 116/62 09/04/16 18:00 103 H 21 114/59 09/04/16 17:46 104 H 17 107/55 09/04/16 17:30 103 H 19 119/64 09/04/16 17:15 107 H 16 115/60 09/04/16 17:00 107 H 19 119/65 09/04/16 16:45 103 H 17 126/66 09/04/16 16:30 105 H 19 119/67 09/04/16 16:15 104 H 23 133/63 09/04/16 16:00 98.6 F 104 H 104 H 16 126/65 09/04/16 15:50 108 H 18 09/04/16 15:45 108 H 21 130/71 09/04/16 15:38 110 H 107 H 33 H 118/56 09/04/16 15:30 106 H 25 H 224/108 09/04/16 15:16 108 H 24 224/108 09/04/16 15:00 102 H 21 126/66 09/04/16 14:45 102 H 26 H 133/72 09/04/16 14:30 103 H 20 131/64 09/04/16 14:16 104 H 20 123/62 09/04/16 14:00 111 H 18 126/67 09/04/16 13:45 101 H 12 126/67 09/04/16 13:30 102 H 25 H 127/69 09/04/16 13:15 97 H 12 117/63 09/04/16 13:00 98 H 14 117/62 09/04/16 12:45 95 H 24 116/62 Pulse Ox 09/05/16 12:15 09/05/16 12:00 86 09/05/16 11:45 100 09/05/16 11:30 99 09/05/16 11:15 99 09/05/16 11:00 96 09/05/16 10:46 84 09/05/16 10:30 98 09/05/16 10:15 99 09/05/16 10:00 97 09/05/16 09:46 89 09/05/16 09:30 100 09/05/16 09:16 76 L 09/05/16 09:00 99 09/05/16 08:45 100 09/05/16 08:30 89 09/05/16 08:15 99 09/05/16 08:00 100 09/05/16 07:55 09/05/16 07:46 99 09/05/16 07:41 100 09/05/16 07:30 99 09/05/16 07:16 09/05/16 07:00 09/05/16 06:46 100 09/05/16 06:30 09/05/16 06:00 99 09/05/16 05:46 99 09/05/16 05:40 99 09/05/16 05:20 98 09/05/16 05:00 92 09/05/16 04:49 93 09/05/16 04:30 91 09/05/16 04:10 88 09/05/16 04:00 93 09/05/16 03:30 92 09/05/16 03:20 94 09/05/16 02:30 89 09/05/16 02:20 93 09/05/16 02:10 09/05/16 02:07 09/05/16 02:00 91 09/05/16 01:46 09/05/16 01:30 89 09/05/16 01:16 92 09/05/16 01:05 95 09/05/16 01:00 94 09/05/16 00:50 93 09/05/16 00:46 93 09/05/16 00:30 90 09/05/16 00:20 09/05/16 00:15 92 09/05/16 00:01 94 09/05/16 00:00 98 09/04/16 23:43 96 09/04/16 23:30 96 09/04/16 23:12 94 09/04/16 23:08 94 09/04/16 23:00 09/04/16 22:46 94 09/04/16 22:40 93 09/04/16 22:30 93 09/04/16 22:16 09/04/16 22:00 09/04/16 21:47 92 09/04/16 21:45 91 09/04/16 21:30 09/04/16 21:17 93 09/04/16 21:15 90 09/04/16 21:02 92 09/04/16 21:00 90 09/04/16 20:46 97 09/04/16 20:30 92 09/04/16 20:17 09/04/16 20:16 78 L 09/04/16 20:00 91 09/04/16 19:52 93 09/04/16 19:45 94 09/04/16 19:39 09/04/16 19:35 95 09/04/16 19:32 92 09/04/16 19:30 90 09/04/16 19:16 09/04/16 19:00 92 09/04/16 18:46 86 09/04/16 18:30 91 09/04/16 18:15 92 09/04/16 18:00 96 09/04/16 17:46 09/04/16 17:30 97 09/04/16 17:15 94 09/04/16 17:00 95 09/04/16 16:45 97 09/04/16 16:30 96 09/04/16 16:15 97 09/04/16 16:00 96 09/04/16 15:50 09/04/16 15:45 94 09/04/16 15:38 96 09/04/16 15:30 75 L 09/04/16 15:16 09/04/16 15:00 99 09/04/16 14:45 99 09/04/16 14:30 97 09/04/16 14:16 98 09/04/16 14:00 92 09/04/16 13:45 97 09/04/16 13:30 99 09/04/16 13:15 98 09/04/16 13:00 99 09/04/16 12:45 - Physical Examination General: Other (intubated on the vent) HEENT: Positive: PERRL, Normocephaly, Mucus Membranes Moist Neck: Positive: neck supple. Negative: JVD/HJR Cardiac: Positive: Regular Rate, S1/S2. Negative: Audible Murmur Lungs: Positive: No Wheeze, Rales, Rhonchi Abdomen: Positive: Unremarkable, Soft Extremities: Absent: edema - Labs and Meds Coagulation 09/05/16 Range/Units 04:30 PT 17.2 H (12.2-14.9) Sec. INR 1.41 H (0.87-1.13) CBC 09/05/16 Range/Units 04:30 WBC 31.9 H (4.5-11.0) K/mm3 RBC 3.11 L (3.65-5.03) M/mm3 Hgb 8.5 L (10.1-14.3) gm/dl Hct 28.3 L D (30.3-42.9) % Plt Count 168 (140-440) K/mm3 Comprehensive Metabolic Panel 09/05/16 Range/Units 04:30 Sodium 134 L (137-145) mmol/L Potassium 5.5 H (3.6-5.0) mmol/L Chloride 96.6 L (98-107) mmol/L Carbon Dioxide 23 (22-30) mmol/L BUN 23 H (7-17) mg/dL Creatinine 1.6 H (0.7-1.2) mg/dL Glucose 116 H (65-100) mg/dL Calcium 7.1 L (8.4-10.2) mg/dL - Telemetry EKG Rhythm: Sinus Rhythm - Allied health notes Allied health notes reviewed: RT
[2016-09-05] MEDS: NULECIT 125 MG in NACL 0.9% 100 ML IV SCH (13:21)
--- NOTE | 2016-09-05 15:19 | Progress Note ---
Assessment and Plan Assessment and plan: Patient is a 61-year-old morbidly obese woman with a past medical history of congestive heart failure, severe protein calorie malnutrition (bilateral taoism muscle severe wasting, hypothenar muscle wasting) with BMI of 81.6, functional quadriplegia, type 2 diabetes mellitus, hypertension, multiple skin breakdown between legs and thighs who presented to the hospital via EMS with AMS. 2D echocardiogram with ejection fraction of 50-55%. During the past admission patient was recommended for placement but refused. On presentation to ED, patient was felt to be unable to maintain airway and intubated the ER since 08/29. Acute toxic metabolic encephalopathy Acute on chronic diastolic congestive heart failure: Cardiology is following, diuresis Acute on chronic respiratory failure, intubated Septic shock on Levaphed: Weaning attempts Hypercoagulable state Severe anemia s/p blood transfusion: monitor cbc closely altered and. Mitral stenosis Paroxysmal atrial fibrillation Non-ST elevated OR: Cardiology is following, conservative management Acute on chronic kidney disease likely secondary to vasomotor nephropathy-POA Transaminitis-elevated alkaline phosphatase and AST: continue to monitor Severe protein calorie malnutrition albumin 1.2 Morbid obesity BMI 81.6 Mulitple PRESSURE ULCERS-POA: consulted wound care uncontrolled dm: increase ssi and wean down iv steroids. restraints renewed drop in HCT, ordered am labs Levaphed still at 3 mcg Unable to get CT head due to weight issues Patient is currently not on sedation. Pupils are STILL pinpoint so prior sedative medications are probably still active in her system, she spontaneously opened her eyes today. Still not following commands Family did not bring old records after multiple request has agreed to blood transfusion, hgb is 6.0 will transfuse 2 units==>h/ h steady, continue to monitor 09/05/16: Overnight was very eventful. New issue: Status epilepticus most likely due to anoxic brain injury, poa. She is back on 8 mcg of Levophed, which had weaned off up to the point of seizure activity Patient had status epilepticus before receiving blood transfusions. She was given multiple doses of Ativan and was still having breakthrough seizures. She was given phenobarbital and Dilantin but still having seizures. I started propofol drip which is helping. She still on IV Ativan drip also. Difficult family dynamics: Her son (she has multiple children), Srikanth and sister Leanne were at her bedside and well as her boyfriend who is not her legal , which he told me. They are upset because they didn't know patient was in the hospital. It appears the gentleman in the room is her boyfriend and not her legal He also did not notify the family the patient was here. That gentleman who is her boyfriend dropped the patient's wallet and our security called the number inside the wallet which was patient's mother's number and this is how the family found out that patient was in the hospital. I was told by RN, that patient has no , patient has 7 siblings and they are estranged from mother. No legal POA but sister Leanne is active in sister's life. Her boyfriend name is Tad Vieyra and he has consistently been at her beside, holding her hand and being supportive. CCT 45 minutes History Interval history: Patient seen and examined. Follow up on respiratory failure. Patient still intubated. Overnight was very eventful. Patient had status epilepticus before receiving blood transfusions. She was given multiple doses of Ativan and was still having breakthrough seizures. She was given phenobarbital and Dilantin but still having seizures. I started propofol which helped. She still on IV Ativan drip. Her son and sister Leanne were at her bedside and well as her boyfriend who is not her legal , which he told me. They are upset because they didn't know patient was in the hospital. It appears the gentleman in the room is her boyfriend and not her legal He also did not notify the family the patient was here. That gentleman who is her boyfriend dropped the patient's wallet and our security called the number inside the wallet which was patient's mother's number and this is how the family found out that patient was in the hospital. Hospitalist Physical - Physical exam Narrative exam: GEN: Critically ill, morbid obese BMI 81.6, intubated HEENT: Pupils are pinpoint and reactive, ET tube in place NECK: SUPPLE, NO THYROMEGALY, NO JVD, NO LAD CVS: regular irregular NORMAL S1S2 LUNGS/CHEST: TA B, NORMAL CHEST EXPANSION B, GOOD AIR ENTRY B ABD: SOFT, NONDISTENDED GBS, NO REBOUND OR GUARDING MSK: Spontaneous movement of extremities NEURO: CN 2-12 GROSSLY INTACT, doesn't follow commands PSY: Confused - Constitutional Vitals: Temp Pulse Resp BP Pulse Ox 99.1 F 102 H 20 103/52 51 L 09/05/16 12:00 09/05/16 14:13 09/05/16 14:13 09/05/16 13:30 09/05/16 13:30 General appearance: Present: obese Results - Labs CBC & Chem 7: 09/05/16 04:30 09/05/16 04:30 Labs: Laboratory Last Values WBC 31.9 K/mm3 (4.5-11.0) H 09/05/16 04:30 RBC 3.11 M/mm3 (3.65-5.03) L 09/05/16 04:30 Hgb 8.5 gm/dl (10.1-14.3) L 09/05/16 04:30 Hct 28.3 % (30.3-42.9) L D 09/05/16 04:30 MCV 91 fl (79-97) 09/05/16 04:30 MCH 27 pg (28-32) L 09/05/16 04:30 MCHC 30 % (30-34) 09/05/16 04:30 RDW 21.0 % (13.2-15.2) H 09/05/16 04:30 Plt Count 168 K/mm3 (140-440) 09/05/16 04:30 Lymph % (Auto) 15.6 % (13.4-35.0) 08/30/16 10:30 [place] % (Auto) 5.1 % (0.0-7.3) 08/30/16 10:30 Eos % (Auto) 0.6 % (0.0-4.3) 08/30/16 10:30 Baso % (Auto) 0.1 % (0.0-1.8) 08/30/16 10:30 Lymph # 1.7 K/mm3 (1.2-5.4) 08/30/16 10:30 [place] # 0.6 K/mm3 (0.0-0.8) 08/30/16 10:30 Eos # 0.1 K/mm3 (0.0-0.4) 08/30/16 10:30 Baso # 0.0 K/mm3 (0.0-0.1) 08/30/16 10:30 Add Manual Diff Complete 09/02/16 05:00 Total Counted 100 09/02/16 05:00 Seg Neutrophils % 78.6 % (40.0-70.0) H 08/30/16 10:30 Seg Neuts % (Manual) 72.0 % (40.0-70.0) H 09/02/16 05:00 Band Neutrophils % 9.0 % 09/02/16 05:00 Lymphocytes % (Manual) 15.0 % (13.4-35.0) 09/02/16 05:00 Reactive Lymphs % (Man) 0 % 09/02/16 05:00 Monocytes % (Manual) 4.0 % (0.0-7.3) 09/02/16 05:00 Eosinophils % (Manual) 0 % (0.0-4.3) 09/02/16 05:00 Basophils % (Manual) 0 % (0.0-1.8) 09/02/16 05:00 Metamyelocytes % 0 % 09/02/16 05:00 Myelocytes % 0 % 09/02/16 05:00 Promyelocytes % 0 % 09/02/16 05:00 Blast Cells % 0 % 09/02/16 05:00 Nucleated RBC % 25.0 % (0.0-0.9) H 09/02/16 05:00 Seg Neutrophils # 8.7 K/mm3 (1.8-7.7) H 08/30/16 10:30 Seg Neutrophils # Man 8.9 K/mm3 (1.8-7.7) H 09/02/16 05:00 Band Neutrophils # 1.1 K/mm3 09/02/16 05:00 Lymphocytes # (Manual) 1.8 K/mm3 (1.2-5.4) 09/02/16 05:00 Abs React Lymphs (Man) 0.0 K/mm3 09/02/16 05:00 Monocytes # (Manual) 0.5 K/mm3 (0.0-0.8) 09/02/16 05:00 Eosinophils # (Manual) 0.0 K/mm3 (0.0-0.4) 09/02/16 05:00 Basophils # (Manual) 0.0 K/mm3 (0.0-0.1) 09/02/16 05:00 Metamyelocytes # 0.0 K/mm3 09/02/16 05:00 Myelocytes # 0.0 K/mm3 09/02/16 05:00 Promyelocytes # 0.0 K/mm3 09/02/16 05:00 Blast Cells # 0.0 K/mm3 09/02/16 05:00 WBC Morphology Not Reportable 09/02/16 05:00 Hypersegmented Neuts Not Reportable 09/02/16 05:00 Hyposegmented Neuts Not Reportable 09/02/16 05:00 Hypogranular Neuts Not Reportable 09/02/16 05:00 Smudge Cells Not Reportable 09/02/16 05:00 Toxic Granulation Not Reportable 09/02/16 05:00 Toxic Vacuolation Not Reportable 09/02/16 05:00 Dohle Bodies Not Reportable 09/02/16 05:00 Pelger-Huet Anomaly Not Reportable 09/02/16 05:00 Feli Rods Not Reportable 09/02/16 05:00 Platelet Estimate Consistent w auto 09/02/16 05:00 Clumped Platelets Not Reportable 09/02/16 05:00 Plt Clumps, EDTA Not Reportable 09/02/16 05:00 Large Platelets Not Reportable 09/02/16 05:00 Giant Platelets Not Reportable 09/02/16 05:00 Platelet Satelliting Not Reportable 09/02/16 05:00 Plt Morphology Comment Not Reportable 09/02/16 05:00 RBC Morphology Not Reportable 09/02/16 05:00 Dimorphic RBCs Not Reportable 09/02/16 05:00 Polychromasia Rare 09/02/16 05:00 Hypochromasia Not Reportable 09/02/16 05:00 Poikilocytosis Not Reportable 09/02/16 05:00 Anisocytosis 1+ 09/02/16 05:00 Microcytosis Not Reportable 09/02/16 05:00 Macrocytosis 1+ 09/02/16 05:00 Spherocytes Not Reportable 09/02/16 05:00 Pappenheimer Bodies Not Reportable 09/02/16 05:00 Sickle Cells Not Reportable 09/02/16 05:00 Target Cells Not Reportable 09/02/16 05:00 Tear Drop Cells Not Reportable 09/02/16 05:00 Ovalocytes Not Reportable 09/02/16 05:00 Helmet Cells Not Reportable 09/02/16 05:00 [place] Bodies Not Reportable 09/02/16 05:00 [place] Rings Not Reportable 09/02/16 05:00 [place] Cells Not Reportable 09/02/16 05:00 Bite Cells Not Reportable 09/02/16 05:00 Crenated Cell Not Reportable 09/02/16 05:00 Elliptocytes Not Reportable 09/02/16 05:00 Acanthocytes (Spur) Not Reportable 09/02/16 05:00 Rouleaux Not Reportable 09/02/16 05:00 Hemoglobin C Crystals Not Reportable 09/02/16 05:00 Schistocytes Not Reportable 09/02/16 05:00 Malaria parasites Not Reportable 09/02/16 05:00 Manny Bodies Not Reportable 09/02/16 05:00 Hem Pathologist Commnt No 09/02/16 05:00 PT 17.2 Sec. (12.2-14.9) H 09/05/16 04:30 INR 1.41 (0.87-1.13) H 09/05/16 04:30 APTT 29.5 Sec. (24.2-36.6) 08/29/16 17:40 POC ABG pH 7.226 (7.35-7.45) L 09/05/16 05:09 POC ABG pCO2 61.6 (35-45) H 09/05/16 05:09 POC ABG pO2 68 (80-105) L 09/05/16 05:09 POC ABG HCO3 25.6 09/05/16 05:09 POC ABG Total CO2 27 09/05/16 05:09 POC ABG O2 Sat 89 09/05/16 05:09 POC ABG Base Excess -2 09/05/16 05:09 VBG pH 7.366 (7.320-7.420) 08/29/16 17:40 FiO2 30 % 09/05/16 05:09 Sodium 134 mmol/L (137-145) L 09/05/16 04:30 Potassium 5.5 mmol/L (3.6-5.0) H 09/05/16 04:30 Chloride 96.6 mmol/L (98-107) L 09/05/16 04:30 Carbon Dioxide 23 mmol/L (22-30) 09/05/16 04:30 Anion Gap 20 mmol/L 09/05/16 04:30 BUN 23 mg/dL (7-17) H 09/05/16 04:30 Creatinine 1.6 mg/dL (0.7-1.2) H 09/05/16 04:30 Estimated GFR 40 ml/min 09/05/16 04:30 BUN/Creatinine Ratio 14.37 % 09/05/16 04:30 Glucose 116 mg/dL (65-100) H 09/05/16 04:30 POC Glucose 114 (70-105) H 09/05/16 05:33 Lactic Acid 1.90 mmol/L (0.7-2.0) 08/31/16 04:20 Calcium 7.1 mg/dL (8.4-10.2) L 09/05/16 04:30 Phosphorus 3.60 mg/dL (2.5-4.5) 08/29/16 21:59 Magnesium 1.80 mg/dL (1.7-2.3) 08/29/16 21:59 Total Bilirubin 1.30 mg/dL (0.1-1.2) H 09/01/16 04:00 AST 138 units/L (5-40) H 09/01/16 04:00 ALT 53 units/L (7-56) 09/01/16 04:00 Alkaline Phosphatase 520 units/L (35-129) H 09/01/16 04:00 Ammonia 70.0 umol/L (25-60) H 08/31/16 04:20 Total Creatine Kinase 28 units/L (30-135) L 08/29/16 17:40 CK-MB (CK-2) < 1.0 ng/mL (0.0-4.0) 08/29/16 17:40 CK-MB (CK-2) Rel Index 3.5 (0-4) 08/29/16 17:40 Troponin T 0.109 ng/mL (0.00-0.029) H* D 08/31/16 15:45 C-Reactive Protein 10.20 mg/dL (0.00-1.30) H 08/30/16 22:20 NT-Pro-B Natriuret Pep 1712 pg/mL (0-900) H 08/29/16 17:40 Total Protein 6.1 g/dL (6.3-8.2) L 09/01/16 04:00 Albumin 1.2 g/dL (3.9-5) L 09/01/16 04:00 Albumin/Globulin Ratio 0.2 % 09/01/16 04:00 Prealbumin 0.120 g/L (0.200-0.400) L 08/29/16 21:59 Triglycerides 225 mg/dL (2-149) H 08/29/16 17:40 Cholesterol 130 mg/dL (50-199) 08/29/16 17:40 LDL Cholesterol Direct 82 mg/dL (50-130) 08/29/16 17:40 HDL Cholesterol 3 mg/dL (40-59) L 08/29/16 17:40 Cholesterol/HDL Ratio 43.33 % 08/29/16 17:40 Urine Color Yellow (Yellow) 08/31/16 15:37 Urine Turbidity Clear (Clear) 08/31/16 15:37 Urine pH 5.0 (5.0-7.0) 08/31/16 15:37 Ur Specific [place] 1.009 (1.003-1.030) 08/31/16 15:37 Urine Protein <15 mg/dl mg/dL (Negative) 08/31/16 15:37 Urine Glucose (UA) Neg mg/dL (Negative) 08/31/16 15:37 Urine Ketones Neg mg/dL (Negative) 08/31/16 15:37 Urine Blood Sm (Negative) 08/31/16 15:37 Urine Nitrite Neg (Negative) 08/31/16 15:37 Urine Bilirubin Neg (Negative) 08/31/16 15:37 Urine Urobilinogen < 2.0 mg/dL (<2.0) 08/31/16 15:37 Ur Leukocyte Esterase Sm (Negative) 08/31/16 15:37 Urine WBC (Auto) 3.0 /HPF (0.0-6.0) 08/31/16 15:37 Urine RBC (Auto) 1.0 /HPF (0.0-6.0) 08/31/16 15:37 U Epithel Cells (Auto) < 1.0 /HPF (0-13.0) 08/31/16 15:37 Urine Bacteria (Auto) 1+ /HPF (Negative) 08/31/16 15:37 Hyaline Casts 5 /LPF 08/31/16 15:37 Urine Mucus Few /HPF 08/31/16 15:37 Blood Type O POSITIVE 09/04/16 15:47 Antibody Screen TNR 09/04/16 15:47 PATRICK Antibody Screen Negative 09/04/16 15:47 Crossmatch See Detail 09/04/16 15:47
[2016-09-06] MEDS: DIPRIVAN 10 MG/ML 1,000 MG/100 ML BOTTLE IV SCH (01:00)
[2016-09-06] MEDS: DUONEB 0.5 MG-3 MG/3 ML SOLN IH SCH ×4 (01:55→19:26)
[2016-09-06] MEDS: ZAROXOLYN PO SCH (05:30)
[2016-09-06] MEDS: NOVOLOG SUB-Q SCH ×4 (05:50→18:00)
[2016-09-06] MEDS ORDERED: D50W (25GM) IV ONE (06:10)
[2016-09-06 06:20] LABS: Hematocrit 22.8 % (30.3-42.9); Hemoglobin 7.2 gm/dl (10.1-14.3); Mean Corpuscular HGB Conc 32 % (30-34); Mean Corpuscular Hemoglobin 28 pg (28-32); Mean Corpuscular Volume 89 fl (79-97); Platelet Count 138 K/mm3 (140-440); Red Blood Count 2.57 M/mm3 (3.65-5.03)
[2016-09-06 06:25] LABS: Red Cell Distribution Width 20.9 % (13.2-15.2); White Blood Count 25.4 K/mm3 (4.5-11.0)
[2016-09-06 06:27] LABS: INR 1.33 (0.87-1.13)
[2016-09-06 06:41] LABS: BUN/Creatinine Ratio 18.94; Calcium 7.2 mg/dL (8.4-10.2); Chloride 99.4 mmol/L (98-107); Magnesium 1.7 mg/dL (1.7-2.3); Potassium 4.1 mmol/L (3.6-5.0)
[2016-09-06] MEDS: LEVEMIR SUB-Q SCH (08:00)
--- NOTE | 2016-09-06 08:09 | Progress Note ---
Assessment and Plan - Patient Problems (1) RORY (acute kidney injury) Current Visit: No Status: Acute Plan to address problem: Acute Kidney Injury is hemodynamically mediated in the setting of hypotension / shock. Increase in the creatinine level noted. Remain on Levophed. Continue current treatment. (2) Hyperkalemia Current Visit: No Status: Acute Plan to address problem: Improved with Kayexalate. (3) Shock Current Visit: Yes Status: Acute Plan to address problem: On Levophed. (4) Respiratory failure Current Visit: Yes Status: Acute Qualifiers: Chronicity: C Respiratory failure complication: R Plan to address problem: On vent. (5) Altered mental status Current Visit: Yes Status: Acute Qualifiers: Altered mental status type: unspecified Coma depth: C Coma timing: C Qualified Code(s): R41.82 - Altered mental status, unspecified (6) Anemia Current Visit: Yes Status: Acute Qualifiers: Anemia type: unspecified type Iron deficiency anemia type: I Vitamin B12 deficiency anemia type: V Folate deficiency anemia type: F Bone marrow failure anemia type: B Hemolytic anemia type: H Other causes of anemia: O Qualified Code(s): D64.9 - Anemia, unspecified Plan to address problem: S/p PRBC. Subjective Date of service: 09/06/16 Interval history: Patient remain on the vent. Objective - Vital Signs Vital signs: Vital Signs - 12hr 09/05/16 09/05/16 09/06/16 23:41 23:52 01:55 Temperature 99.1 F Pulse Rate 90 Pulse Rate [ 83 Anterior Bilateral Throughout] Respiratory 23 Rate [Anterior Bilateral Throughout] Blood Pressure 116/65 O2 Sat by Pulse 100 Oximetry 09/06/16 09/06/16 09/06/16 02:15 03:46 03:57 Temperature 99.8 F H Pulse Rate 82 Pulse Rate [ 89 Anterior Bilateral Throughout] Respiratory 21 Rate [Anterior Bilateral Throughout] Blood Pressure 95/56 O2 Sat by Pulse 100 Oximetry 09/06/16 09/06/16 07:28 07:44 Temperature Pulse Rate 81 Pulse Rate [ 81 68 Anterior Bilateral Throughout] Respiratory 31 H 32 H Rate [Anterior Bilateral Throughout] Blood Pressure O2 Sat by Pulse 100 Oximetry - General Appearance General appearance: well-developed, well-nourished, appears stated age, obese, sedated on ventilator (FiO2 50%), intubated EENT: ATNC, PERRL Neck: supple Respiratory: Present: Clear to Ascultation Cardiology: regular, S1S2, no murmurs Gastrointestinal: normoactive bowel sounds, no tenderness, obese Integumentary: no rash Neurologic: obtunded Musculoskeletal: other (2+ edema of both LEs noted) - Lab 09/06/16 03:30 09/06/16 03:30 Most recent lab results Calcium 7.2 mg/dL (8.4-10.2) L 09/06/16 03:30 Phosphorus 3.60 mg/dL (2.5-4.5) 08/29/16 21:59 Magnesium 1.70 mg/dL (1.7-2.3) 09/06/16 03:30
--- NOTE | 2016-09-06 09:26 | XRay Report ---
Single view chest: Compared to 09/05/16. History: Followup respiratory failure. Findings: Borderline cardiomegaly. Bilateral airspace opacities with suspected bilateral pleural effusion. Stable support system. No significant interval change. Impression: No significant interval change.
[2016-09-06] MEDS: KEPPRA PO SCH ×2 (10:30→22:30)
--- NOTE | 2016-09-06 10:56 | Ultrasound Report ---
Renal sonogram: History: Acute renal failure. Findings: Right kidney 12.6 x 4.7 x 5.6 cm. Cortical thickness 1.3 cm. Cyst right kidney. Cyst measures 2 x 1.7 x 1.9 cm. Left kidney 11.6 x 6 x 4.5 cm. Cortical thickness 1.6 cm. No mass. No hydronephrosis. Impression: Cyst right kidney.
[2016-09-06] MEDS ORDERED: INTROPIN DRIP 800 MG/D5W 250 ML 800 MG/250 ML BAG IV SCH (11:00)
[2016-09-06] MEDS: ATIVAN 100 MG in NACL 0.9% 50 ML, VIAFLEX EMPTY CONTAINER 0 ML IV SCH (11:15)
--- NOTE | 2016-09-06 11:21 | Progress Note ---
Assessment and Plan 1. Acute respiratory failure 2. Type 2 diabetes mellitus 3. Sepsis 4. Decubitus ulcer Plan. Echocardiogram shows normal left ventricular size and function with left ventricular ejection fraction of 50-55%. Continue antibiotic treatment to wean off ventilator. Subjective Date of service: 09/06/16 Interval history: Intubated and sedated Objective Vital Signs Temp Pulse Pulse Pulse Resp Resp BP 09/06/16 11:09 55 L 108/52 09/06/16 09:30 71 15 111/50 09/06/16 09:15 61 10 L 101/51 09/06/16 09:00 92 H 29 H 105/52 09/06/16 08:45 75 24 114/45 09/06/16 08:30 85 14 104/55 09/06/16 08:15 75 26 H 112/52 09/06/16 08:00 97.9 F 58 L 69 30 H 115/48 09/06/16 07:46 70 31 H 117/49 09/06/16 07:44 68 32 H 09/06/16 07:30 71 30 H 117/49 09/06/16 07:28 81 81 31 H 09/06/16 07:16 67 30 H 117/49 09/06/16 07:00 70 31 H 117/49 09/06/16 06:46 74 33 H 117/49 09/06/16 06:30 81 31 H 117/49 09/06/16 06:15 69 32 H 117/49 09/06/16 06:00 76 27 H 108/53 09/06/16 05:45 80 22 106/55 09/06/16 05:30 79 31 H 116/45 09/06/16 05:15 74 28 H 115/49 09/06/16 05:00 71 24 106/55 09/06/16 04:45 71 22 102/52 09/06/16 04:30 63 23 98/40 09/06/16 04:15 75 31 H 108/47 09/06/16 04:00 81 88 31 H 95/56 09/06/16 03:57 82 95/56 09/06/16 03:46 99.8 F H 09/06/16 03:45 77 24 112/49 09/06/16 03:30 76 24 94/49 09/06/16 03:15 86 25 H 105/57 09/06/16 03:00 83 26 H 122/53 09/06/16 02:45 84 33 H 110/53 09/06/16 02:30 83 32 H 106/44 09/06/16 02:15 90 89 30 H 21 130/73 09/06/16 02:00 83 30 H 120/59 09/06/16 01:55 83 23 09/06/16 01:45 84 29 H 120/61 09/06/16 01:30 82 21 125/61 09/06/16 01:15 88 28 H 120/61 09/06/16 01:00 88 25 H 120/55 09/06/16 00:45 90 22 124/50 09/06/16 00:30 91 H 24 118/51 09/06/16 00:16 89 22 118/52 09/06/16 00:00 90 72 20 118/52 09/05/16 23:52 99.1 F 09/05/16 23:45 91 H 23 118/57 09/05/16 23:41 90 116/65 09/05/16 23:30 89 21 116/65 09/05/16 23:15 91 H 29 H 127/63 09/05/16 23:00 91 H 24 130/71 09/05/16 22:46 89 21 154/125 09/05/16 22:30 90 26 H 92/62 09/05/16 22:15 88 21 92/62 09/05/16 22:00 88 23 99/54 09/05/16 21:46 89 25 H 129/92 09/05/16 21:30 92 H 25 H 131/66 09/05/16 21:15 92 H 24 132/70 09/05/16 21:00 93 H 25 H 131/71 09/05/16 20:46 94 H 22 144/103 09/05/16 20:30 93 H 25 H 130/70 09/05/16 20:00 99.6 F 09/05/16 19:45 93 H 20 09/05/16 19:30 94 H 96 H 21 21 120/60 09/05/16 19:27 96 H 124/68 09/05/16 19:15 96 H 22 124/68 09/05/16 19:00 97 H 21 102/45 09/05/16 18:45 96 H 20 121/65 09/05/16 18:30 96 H 23 134/63 09/05/16 18:15 96 H 20 134/63 09/05/16 18:00 95 H 20 114/65 09/05/16 17:46 95 H 20 176/137 09/05/16 17:30 96 H 22 112/65 09/05/16 17:16 94 H 23 209/118 09/05/16 17:00 95 H 30 H 115/61 09/05/16 16:46 93 H 19 124/62 09/05/16 16:30 94 H 23 123/62 09/05/16 16:15 94 H 20 117/62 09/05/16 16:00 99.4 F 94 H 94 H 21 124/62 09/05/16 15:46 94 H 20 103/67 09/05/16 15:30 95 H 22 103/67 09/05/16 15:15 93 H 22 117/51 09/05/16 15:00 95 H 30 H 135/78 09/05/16 14:45 93 H 22 117/54 09/05/16 14:30 92 H 23 91/50 09/05/16 14:16 94 H 21 91/50 09/05/16 14:13 102 H 20 09/05/16 14:00 92 H 28 H 191/159 09/05/16 13:59 94 H 22 09/05/16 13:46 91 H 22 103/49 09/05/16 13:30 92 H 34 H 103/52 09/05/16 13:16 93 H 20 103/52 09/05/16 13:00 92 H 22 106/56 09/05/16 12:48 92 H 106/56 09/05/16 12:45 90 21 106/56 09/05/16 12:30 90 26 H 99/60 09/05/16 12:15 89 22 99/60 09/05/16 12:00 99.1 F 90 90 21 103/48 09/05/16 11:45 90 22 103/48 09/05/16 11:30 90 21 113/48 Pulse Ox 09/06/16 11:09 100 09/06/16 09:30 99 09/06/16 09:15 100 09/06/16 09:00 100 09/06/16 08:45 99 09/06/16 08:30 99 09/06/16 08:15 99 09/06/16 08:00 100 09/06/16 07:46 100 09/06/16 07:44 05 07:30 100 09/06/16 07:28 100 09/06/16 07:16 100 09/06/16 07:00 100 09/06/16 06:46 100 09/06/16 06:30 100 09/06/16 06:15 96 09/06/16 06:00 96 09/06/16 05:45 97 09/06/16 05:30 98 09/06/16 05:15 97 09/06/16 05:00 98 09/06/16 04:45 97 09/06/16 04:30 98 09/06/16 04:15 98 09/06/16 04:00 97 09/06/16 03:57 100 09/06/16 03:46 09/06/16 03:45 98 09/06/16 03:30 97 09/06/16 03:15 97 09/06/16 03:00 97 09/06/16 02:45 96 09/06/16 02:30 97 09/06/16 02:15 98 09/06/16 02:00 97 09/06/16 01:55 09/06/16 01:45 97 09/06/16 01:30 98 09/06/16 01:15 98 09/06/16 01:00 98 09/06/16 00:45 99 09/06/16 00:30 100 09/06/16 00:16 09/06/16 00:00 99 09/05/16 23:52 09/05/16 23:45 98 09/05/16 23:41 100 09/05/16 23:30 99 09/05/16 23:15 100 09/05/16 23:00 100 09/05/16 22:46 91 09/05/16 22:30 100 09/05/16 22:15 99 09/05/16 22:00 99 09/05/16 21:46 100 05 21:30 100 09/05/16 21:15 100 09/05/16 21:00 100 09/05/16 20:46 94 05 20:30 99 05/27/17 20:00 09/05/16 19:45 09/05/16 19:30 100 09/05/16 19:27 100 09/05/16 19:15 09/05/16 19:00 97 09/05/16 18:45 98 09/05/16 18:30 84 09/05/16 18:15 98 09/05/16 18:00 97 09/05/16 17:46 89 09/05/16 17:30 09/05/16 17:16 74 L 09/05/16 17:00 97 09/05/16 16:46 68 L 09/05/16 16:30 98 09/05/16 16:15 96 09/05/16 16:00 98 09/05/16 15:46 86 09/05/16 15:30 97 09/05/16 15:15 99 09/05/16 15:00 99 09/05/16 14:45 99 09/05/16 14:30 94 09/05/16 14:16 99 09/05/16 14:13 09/05/16 14:00 09/05/16 13:59 09/05/16 13:46 72 L 09/05/16 13:30 51 L 09/05/16 13:16 99 09/05/16 13:00 100 09/05/16 12:48 100 09/05/16 12:45 09/05/16 12:30 93 09/05/16 12:15 09/05/16 12:00 96 09/05/16 11:45 100 09/05/16 11:30 99 - Physical Examination General: Other (intubated on the vent) HEENT: Positive: PERRL, Normocephaly, Mucus Membranes Moist Neck: Positive: neck supple. Negative: JVD/HJR Cardiac: Positive: Regular Rate, S1/S2, PMI, Laterally Displaced Lungs: Positive: Decreased Breath Sounds, Rhonchi Abdomen: Positive: Unremarkable, Soft Extremities: Absent: edema - Labs and Meds Coagulation 09/06/16 Range/Units 03:30 PT 16.4 H (12.2-14.9) Sec. INR 1.33 H (0.87-1.13) CBC 09/06/16 Range/Units 03:30 WBC 25.4 H (4.5-11.0) K/mm3 RBC 2.57 L (3.65-5.03) M/mm3 Hgb 7.2 L (10.1-14.3) gm/dl Hct 22.8 L (30.3-42.9) % Plt Count 138 L (140-440) K/mm3 Comprehensive Metabolic Panel 09/05/16 09/06/16 Range/Units 17:25 03:30 Sodium 141 D (137-145) mmol/L Potassium 4.9 4.1 (3.6-5.0) mmol/L Chloride 99.4 (98-107) mmol/L Carbon Dioxide 23 (22-30) mmol/L BUN 36 H (7-17) mg/dL Creatinine 1.9 H (0.7-1.2) mg/dL Glucose 75 (65-100) mg/dL Calcium 7.2 L (8.4-10.2) mg/dL - Allied health notes Allied health notes reviewed: RT
[2016-09-06] MEDS: FERROUS SULFATE PO SCH (11:34)
[2016-09-06] MEDS: PROTONIX PO SCH (11:35)
[2016-09-06] MEDS: FOLVITE PO SCH (11:35)
[2016-09-06 11:50] LABS: Creatine Kinase MB < 1.0 ng/mL (0.0-4.0)
[2016-09-06 11:51] LABS: Creatine Kinase 36 units/L (30-135)
--- NOTE | 2016-09-06 13:42 | Progress Note ---
Assessment and Plan - Patient Problems (1) Respiratory failure Current Visit: Yes Status: Acute Qualifiers: Chronicity: C Respiratory failure complication: R Plan to address problem: Currently on mechanical ventilatory support AC-VC 16/500/PEEP5/30% ABG 7.226/61.6/68/.Continue with MVS, increase FIO2 to 50% and increase rate to 20. VAP bundle addressed Wean FIO2 for O2 sats>92% HOB>40, aspiration precautions VTE prophylaxis- discontinue enoxaparin in view of anemia and use SCDs Stress ulcer prophylaxis- Pantoprazole Sedation/Analgesia-propofol, lorazepam Lung protective strategies Suspend SBTs until there is better hemodynamic stability Continue with enteric feedings, monitor accucheck,episodes of profound hypoglycemia today. D10 infusion started. (2) Shock Current Visit: Yes Status: Acute Plan to address problem: Treated as septic shock secondary to HCAP - Wean vasopressor support for MAP>65 On Norepinephrine at 10mcg and dopamine at 5mcg Cultures negative with worsening leukocytosis. ID following On steroid therapy for possible COPD with AE (3) Acute on chronic diastolic (congestive) heart failure Current Visit: No Status: Acute Plan to address problem: Documented EF 55% Diuretics discontinued in view or worsening renal indices and the need for vasoprsessor support. Continue to monitoring renal function and electrolyte profile closely Monitor urine output, electrolyte profile (4) Altered mental status Current Visit: Yes Status: Acute Qualifiers: Altered mental status type: unspecified Coma depth: C Coma timing: C Qualified Code(s): R41.82 - Altered mental status, unspecified Plan to address problem: Neurology following (5) Morbid obesity Current Visit: Yes Status: Acute Qualifiers: Obesity type: unspecified obesity type Qualified Code(s): E66.01 - Morbid ( severe) obesity due to excess calories (6) Anemia Current Visit: Yes Status: Acute Qualifiers: Anemia type: unspecified type Iron deficiency anemia type: I Vitamin B12 deficiency anemia type: V Folate deficiency anemia type: F Bone marrow failure anemia type: B Hemolytic anemia type: H Other causes of anemia: O Qualified Code(s): D64.9 - Anemia, unspecified Plan to address problem: Coffee ground emesis, high residuals reported by RN Place OGT to LIS. Discontinue tube feedings for the next 24 hours, monitor H and H and the output from the GI tract. Supportive transfusions (7) Status epilepticus Current Visit: Yes Status: Acute Plan to address problem: Continue AEDs Neurology following (8) Status epilepticus due to refractory complex partial seizures Current Visit: Yes Status: Acute Plan to address problem: On lorazepam infusion, propofol Keppra and Dilantin Neurology following. This could be secondary to an intracranial process, however unable to obtain neuro imaging, patient's weight exceeds allowable maximum (9) Discharge planning issues Current Visit: Yes Status: Acute Plan to address problem: Continue current care. AND/DNR Sister update at the bedside re care plan and the critical nature of her illness Subjective Date of service: 09/06/16 Interval history: Remains orally intubated. Seen and examined. Vitals, labs, medications, chart and imaging reviewed. No seizures overnight Currently on IV lorazepam infusion, IV propofol, IV norepinephrine. Received dilantin loading, and is on IV Keppra. Episodes of bradycardia with rivera-arrhythmias Continues to require norepinephrine to support her blood pressure Her sister is at the bedside- patient is now DNR in the event of cardiopulmonary arrest Objective - Exam Narrative Exam: GEN: Critically ill, morbid obese BMI 81.6, intubated HEENT: Pupils are pinpoint and reactive, ET tube in place NECK: SUPPLE, NO THYROMEGALY, NO JVD, NO LAD CVS: regular irregular NORMAL S1S2 LUNGS/CHEST: TA B, NORMAL CHEST EXPANSION B, GOOD AIR ENTRY B ABD: SOFT, NON-DISTENDED BS+, NO REBOUND OR GUARDING NEURO: Obtunded, unresponsive doesn't follow commands EXT: Edema +, no cyanosis, no clubbing Vital Signs - 12hr 09/06/16 09/06/16 09/06/16 01:45 01:55 02:00 Temperature Pulse Rate 84 83 Pulse Rate [ 83 Anterior Bilateral Throughout] Pulse Rate [ From Monitor] Respiratory 29 H 30 H Rate Respiratory 23 Rate [Anterior Bilateral Throughout] Blood Pressure 120/61 120/59 O2 Sat by Pulse 97 97 Oximetry 09/06/16 09/06/16 09/06/16 02:15 02:30 02:45 Temperature Pulse Rate 90 83 84 Pulse Rate [ 89 Anterior Bilateral Throughout] Pulse Rate [ From Monitor] Respiratory 30 H 32 H 33 H Rate Respiratory 21 Rate [Anterior Bilateral Throughout] Blood Pressure 130/73 106/44 110/53 O2 Sat by Pulse 98 97 96 Oximetry 09/06/16 09/06/16 09/06/16 03:00 03:15 03:30 Temperature Pulse Rate 83 86 76 Pulse Rate [ Anterior Bilateral Throughout] Pulse Rate [ From Monitor] Respiratory 26 H 25 H 24 Rate Respiratory Rate [Anterior Bilateral Throughout] Blood Pressure 122/53 105/57 94/49 O2 Sat by Pulse 97 97 97 Oximetry 09/06/16 09/06/16 09/06/16 03:45 03:46 03:57 Temperature 99.8 F H Pulse Rate 77 82 Pulse Rate [ Anterior Bilateral Throughout] Pulse Rate [ From Monitor] Respiratory 24 Rate Respiratory Rate [Anterior Bilateral Throughout] Blood Pressure 112/49 95/56 O2 Sat by Pulse 98 100 Oximetry 09/06/16 09/06/16 09/06/16 04:00 04:15 04:30 Temperature Pulse Rate 81 75 63 Pulse Rate [ Anterior Bilateral Throughout] Pulse Rate [ 88 From Monitor] Respiratory 31 H 31 H 23 Rate Respiratory Rate [Anterior Bilateral Throughout] Blood Pressure 95/56 108/47 98/40 O2 Sat by Pulse 97 98 98 Oximetry 09/06/16 09/06/16 09/06/16 04:45 05:00 05:15 Temperature Pulse Rate 71 71 74 Pulse Rate [ Anterior Bilateral Throughout] Pulse Rate [ From Monitor] Respiratory 22 24 28 H Rate Respiratory Rate [Anterior Bilateral Throughout] Blood Pressure 102/52 106/55 115/49 O2 Sat by Pulse 97 98 97 Oximetry 09/06/16 09/06/16 09/06/16 05:30 05:45 06:00 Temperature Pulse Rate 79 80 76 Pulse Rate [ Anterior Bilateral Throughout] Pulse Rate [ From Monitor] Respiratory 31 H 22 27 H Rate Respiratory Rate [Anterior Bilateral Throughout] Blood Pressure 116/45 106/55 108/53 O2 Sat by Pulse 98 97 96 Oximetry 09/06/16 09/06/16 09/06/16 06:15 06:30 06:46 Temperature Pulse Rate 69 81 74 Pulse Rate [ Anterior Bilateral Throughout] Pulse Rate [ From Monitor] Respiratory 32 H 31 H 33 H Rate Respiratory Rate [Anterior Bilateral Throughout] Blood Pressure 117/49 117/49 117/49 O2 Sat by Pulse 96 100 100 Oximetry 09/06/16 09/06/16 09/06/16 07:00 07:16 07:28 Temperature Pulse Rate 70 67 81 Pulse Rate [ 81 Anterior Bilateral Throughout] Pulse Rate [ From Monitor] Respiratory 31 H 30 H Rate Respiratory 31 H Rate [Anterior Bilateral Throughout] Blood Pressure 117/49 117/49 O2 Sat by Pulse 100 100 100 Oximetry 09/06/16 09/06/16 09/06/16 07:30 07:44 07:46 Temperature Pulse Rate 71 70 Pulse Rate [ 68 Anterior Bilateral Throughout] Pulse Rate [ From Monitor] Respiratory 30 H 31 H Rate Respiratory 32 H Rate [Anterior Bilateral Throughout] Blood Pressure 117/49 117/49 O2 Sat by Pulse 100 100 Oximetry 09/06/16 09/06/16 09/06/16 08:00 08:15 08:30 Temperature 97.9 F Pulse Rate 58 L 75 85 Pulse Rate [ Anterior Bilateral Throughout] Pulse Rate [ 69 From Monitor] Respiratory 30 H 26 H 14 Rate Respiratory Rate [Anterior Bilateral Throughout] Blood Pressure 115/48 112/52 104/55 O2 Sat by Pulse 100 99 99 Oximetry 09/06/16 09/06/16 09/06/16 08:45 09:00 09:15 Temperature Pulse Rate 75 92 H 61 Pulse Rate [ Anterior Bilateral Throughout] Pulse Rate [ From Monitor] Respiratory 24 29 H 10 L Rate Respiratory Rate [Anterior Bilateral Throughout] Blood Pressure 114/45 105/52 101/51 O2 Sat by Pulse 99 100 100 Oximetry 09/06/16 09/06/16 09:30 11:09 Temperature Pulse Rate 71 55 L Pulse Rate [ Anterior Bilateral Throughout] Pulse Rate [ From Monitor] Respiratory 15 Rate Respiratory Rate [Anterior Bilateral Throughout] Blood Pressure 111/50 108/52 O2 Sat by Pulse 99 100 Oximetry CBC and BMP: 09/07/16 03:42 09/07/16 03:42 ABG, PT/INR, D-dimer: ABG POC ABG pH 7.226 (7.35-7.45) L 09/05/16 05:09 POC ABG pCO2 61.6 (35-45) H 09/05/16 05:09 POC ABG pO2 68 (80-105) L 09/05/16 05:09 POC ABG HCO3 25.6 09/05/16 05:09 POC ABG Total CO2 27 09/05/16 05:09 POC ABG O2 Sat 89 09/05/16 05:09 PT/INR, D-dimer PT 16.4 Sec. (12.2-14.9) H 09/06/16 03:30 INR 1.33 (0.87-1.13) H 09/06/16 03:30 Abnormal lab findings: Abnormal Labs 08/29/16 08/30/16 08/30/16 21:59 00:16 05:39 WBC RBC Hgb Hct MCH MCHC RDW Plt Count Seg Neutrophils % Seg Neuts % (Manual) Nucleated RBC % Seg Neutrophils # Seg Neutrophils # Man PT INR POC ABG pH POC ABG pCO2 POC ABG pO2 Sodium Potassium Chloride Carbon Dioxide BUN Creatinine Glucose POC Glucose 106 H 128 H Lactic Acid Calcium Total Bilirubin AST Alkaline Phosphatase Ammonia Troponin T C-Reactive Protein Total Protein Albumin Prealbumin 0.120 L Crossmatch 08/30/16 08/30/16 08/30/16 10:30 10:30 11:12 WBC 11.1 H RBC 3.16 L Hgb 8.7 L Hct 29.9 L MCH MCHC 29 L RDW 25.0 H Plt Count Seg Neutrophils % 78.6 H Seg Neuts % (Manual) Nucleated RBC % Seg Neutrophils # 8.7 H Seg Neutrophils # Man PT INR POC ABG pH POC ABG pCO2 POC ABG pO2 Sodium 135 L Potassium Chloride Carbon Dioxide 20 L BUN Creatinine 1.5 H Glucose 148 H POC Glucose 142 H Lactic Acid Calcium 7.2 L Total Bilirubin 1.30 H AST 143 H Alkaline Phosphatase 392 H Ammonia Troponin T C-Reactive Protein Total Protein 6.1 L Albumin 1.2 L Prealbumin Crossmatch 08/30/16 08/30/16 08/30/16 17:41 18:03 18:18 WBC RBC Hgb Hct MCH MCHC RDW Plt Count Seg Neutrophils % Seg Neuts % (Manual) Nucleated RBC % Seg Neutrophils # Seg Neutrophils # Man PT INR POC ABG pH 7.316 L POC ABG pCO2 POC ABG pO2 44 L 59 L Sodium Potassium Chloride Carbon Dioxide BUN Creatinine Glucose POC Glucose 150 H Lactic Acid Calcium Total Bilirubin AST Alkaline Phosphatase Ammonia Troponin T C-Reactive Protein Total Protein Albumin Prealbumin Crossmatch 08/30/16 08/30/16 08/31/16 22:20 22:20 00:11 WBC RBC Hgb Hct MCH MCHC RDW Plt Count Seg Neutrophils % Seg Neuts % (Manual) Nucleated RBC % Seg Neutrophils # Seg Neutrophils # Man PT INR POC ABG pH POC ABG pCO2 POC ABG pO2 Sodium Potassium Chloride Carbon Dioxide BUN Creatinine Glucose POC Glucose 133 H Lactic Acid 2.30 H* Calcium Total Bilirubin AST Alkaline Phosphatase Ammonia Troponin T C-Reactive Protein 10.20 H Total Protein Albumin Prealbumin Crossmatch 08/31/16 08/31/16 08/31/16 04:20 04:20 04:20 WBC 18.3 H RBC 3.19 L Hgb 8.8 L Hct 30.0 L MCH 27 L MCHC 29 L RDW 23.9 H Plt Count Seg Neutrophils % Seg Neuts % (Manual) Nucleated RBC % Seg Neutrophils # Seg Neutrophils # Man PT 16.8 H INR 1.37 H POC ABG pH POC ABG pCO2 POC ABG pO2 Sodium 136 L Potassium Chloride Carbon Dioxide 19 L BUN Creatinine 1.5 H Glucose 125 H POC Glucose Lactic Acid Calcium 7.0 L Total Bilirubin 1.50 H AST 131 H Alkaline Phosphatase 431 H Ammonia Troponin T C-Reactive Protein Total Protein 6.2 L Albumin 1.2 L Prealbumin Crossmatch 08/31/16 08/31/16 08/31/16 04:20 05:22 05:24 WBC RBC Hgb Hct MCH MCHC RDW Plt Count Seg Neutrophils % Seg Neuts % (Manual) Nucleated RBC % Seg Neutrophils # Seg Neutrophils # Man PT INR POC ABG pH POC ABG pCO2 POC ABG pO2 142 H Sodium Potassium Chloride Carbon Dioxide BUN Creatinine Glucose POC Glucose 123 H Lactic Acid Calcium Total Bilirubin AST Alkaline Phosphatase Ammonia 70.0 H Troponin T C-Reactive Protein Total Protein Albumin Prealbumin Crossmatch 08/31/16 08/31/16 08/31/16 12:10 15:45 17:38 WBC RBC Hgb Hct MCH MCHC RDW Plt Count Seg Neutrophils % Seg Neuts % (Manual) Nucleated RBC % Seg Neutrophils # Seg Neutrophils # Man PT INR POC ABG pH POC ABG pCO2 POC ABG pO2 Sodium 136 L Potassium Chloride Carbon Dioxide 21 L BUN Creatinine 1.5 H Glucose 160 H POC Glucose 147 H 151 H Lactic Acid Calcium 6.9 L Total Bilirubin AST Alkaline Phosphatase Ammonia Troponin T 0.109 H* D C-Reactive Protein Total Protein Albumin Prealbumin Crossmatch 09/01/16 09/01/16 09/01/16 00:09 04:00 04:00 WBC 14.8 H RBC 2.89 L Hgb 7.8 L Hct 27.2 L MCH 27 L MCHC 29 L RDW 24.4 H Plt Count Seg Neutrophils % Seg Neuts % (Manual) Nucleated RBC % Seg Neutrophils # Seg Neutrophils # Man PT 18.2 H INR 1.51 H POC ABG pH POC ABG pCO2 POC ABG pO2 Sodium Potassium Chloride Carbon Dioxide BUN Creatinine Glucose POC Glucose 192 H Lactic Acid Calcium Total Bilirubin AST Alkaline Phosphatase Ammonia Troponin T C-Reactive Protein Total Protein Albumin Prealbumin Crossmatch 09/01/16 09/01/16 09/01/16 04:00 05:28 11:28 WBC RBC Hgb Hct MCH MCHC RDW Plt Count Seg Neutrophils % Seg Neuts % (Manual) Nucleated RBC % Seg Neutrophils # Seg Neutrophils # Man PT INR POC ABG pH POC ABG pCO2 POC ABG pO2 Sodium Potassium Chloride Carbon Dioxide 20 L BUN Creatinine 1.6 H Glucose 183 H POC Glucose 189 H 207 H Lactic Acid Calcium 6.9 L Total Bilirubin 1.30 H AST 138 H Alkaline Phosphatase 520 H Ammonia Troponin T C-Reactive Protein Total Protein 6.1 L Albumin 1.2 L Prealbumin Crossmatch 09/01/16 09/01/16 09/02/16 16:56 23:49 05:00 WBC RBC Hgb Hct MCH MCHC RDW Plt Count Seg Neutrophils % Seg Neuts % (Manual) Nucleated RBC % Seg Neutrophils # Seg Neutrophils # Man PT 18.0 H INR 1.49 H POC ABG pH POC ABG pCO2 POC ABG pO2 Sodium Potassium Chloride Carbon Dioxide BUN Creatinine Glucose POC Glucose 250 H 307 H Lactic Acid Calcium Total Bilirubin AST Alkaline Phosphatase Ammonia Troponin T C-Reactive Protein Total Protein Albumin Prealbumin Crossmatch 09/02/16 09/02/16 09/02/16 05:00 05:00 05:45 WBC 12.3 H RBC 2.57 L Hgb 7.1 L Hct 23.4 L MCH MCHC RDW 23.9 H Plt Count Seg Neutrophils % Seg Neuts % (Manual) 72.0 H Nucleated RBC % 25.0 H Seg Neutrophils # Seg Neutrophils # Man 8.9 H PT INR POC ABG pH POC ABG pCO2 POC ABG pO2 Sodium Potassium Chloride Carbon Dioxide BUN Creatinine 1.4 H Glucose 299 H POC Glucose 327 H Lactic Acid Calcium 7.0 L Total Bilirubin AST Alkaline Phosphatase Ammonia Troponin T C-Reactive Protein Total Protein Albumin Prealbumin Crossmatch 09/02/16 09/02/16 09/02/16 12:22 17:22 23:24 WBC RBC Hgb Hct MCH MCHC RDW Plt Count Seg Neutrophils % Seg Neuts % (Manual) Nucleated RBC % Seg Neutrophils # Seg Neutrophils # Man PT INR POC ABG pH POC ABG pCO2 POC ABG pO2 Sodium Potassium Chloride Carbon Dioxide BUN Creatinine Glucose POC Glucose 310 H 358 H 286 H Lactic Acid Calcium Total Bilirubin AST Alkaline Phosphatase Ammonia Troponin T C-Reactive Protein Total Protein Albumin Prealbumin Crossmatch 09/03/16 09/03/16 09/03/16 04:10 04:10 04:10 WBC 11.8 H RBC 2.29 L Hgb 6.1 L Hct 21.0 L MCH 27 L MCHC 29 L RDW 24.1 H Plt Count Seg Neutrophils % Seg Neuts % (Manual) Nucleated RBC % Seg Neutrophils # Seg Neutrophils # Man PT 17.6 H INR 1.45 H POC ABG pH POC ABG pCO2 POC ABG pO2 Sodium Potassium Chloride Carbon Dioxide BUN Creatinine 1.4 H Glucose 301 H POC Glucose Lactic Acid Calcium 7.0 L Total Bilirubin AST Alkaline Phosphatase Ammonia Troponin T C-Reactive Protein Total Protein Albumin Prealbumin Crossmatch 09/03/16 09/03/16 09/03/16 05:59 11:36 17:42 WBC RBC Hgb Hct MCH MCHC RDW Plt Count Seg Neutrophils % Seg Neuts % (Manual) Nucleated RBC % Seg Neutrophils # Seg Neutrophils # Man PT INR POC ABG pH POC ABG pCO2 POC ABG pO2 Sodium Potassium Chloride Carbon Dioxide BUN Creatinine Glucose POC Glucose 351 H 285 H 259 H Lactic Acid Calcium Total Bilirubin AST Alkaline Phosphatase Ammonia Troponin T C-Reactive Protein Total Protein Albumin Prealbumin Crossmatch 09/03/16 09/04/16 09/04/16 23:00 04:27 05:36 WBC RBC Hgb Hct MCH MCHC RDW Plt Count Seg Neutrophils % Seg Neuts % (Manual) Nucleated RBC % Seg Neutrophils # Seg Neutrophils # Man PT INR POC ABG pH 7.544 H POC ABG pCO2 30.8 L POC ABG pO2 78 L Sodium Potassium Chloride Carbon Dioxide BUN Creatinine Glucose POC Glucose 192 H 228 H Lactic Acid Calcium Total Bilirubin AST Alkaline Phosphatase Ammonia Troponin T C-Reactive Protein Total Protein Albumin Prealbumin Crossmatch 09/04/16 09/04/16 09/04/16 06:37 06:37 06:39 WBC 21.0 H RBC 2.22 L Hgb 6.0 L Hct 20.1 L MCH 27 L MCHC RDW 24.3 H Plt Count Seg Neutrophils % Seg Neuts % (Manual) Nucleated RBC % Seg Neutrophils # Seg Neutrophils # Man PT 16.8 H INR 1.37 H POC ABG pH POC ABG pCO2 POC ABG pO2 Sodium Potassium Chloride Carbon Dioxide BUN Creatinine 1.4 H Glucose 201 H POC Glucose Lactic Acid Calcium 7.1 L Total Bilirubin AST Alkaline Phosphatase Ammonia Troponin T C-Reactive Protein Total Protein Albumin Prealbumin Crossmatch 09/04/16 09/04/16 09/04/16 12:14 15:47 17:41 WBC RBC Hgb Hct MCH MCHC RDW Plt Count Seg Neutrophils % Seg Neuts % (Manual) Nucleated RBC % Seg Neutrophils # Seg Neutrophils # Man PT INR POC ABG pH POC ABG pCO2 POC ABG pO2 Sodium Potassium Chloride Carbon Dioxide BUN Creatinine Glucose POC Glucose 176 H 218 H Lactic Acid Calcium Total Bilirubin AST Alkaline Phosphatase Ammonia Troponin T C-Reactive Protein Total Protein Albumin Prealbumin Crossmatch See Detail 09/04/16 09/04/16 09/05/16 21:59 23:48 04:30 WBC RBC Hgb Hct MCH MCHC RDW Plt Count Seg Neutrophils % Seg Neuts % (Manual) Nucleated RBC % Seg Neutrophils # Seg Neutrophils # Man PT 17.2 H INR 1.41 H POC ABG pH POC ABG pCO2 POC ABG pO2 Sodium Potassium Chloride Carbon Dioxide BUN Creatinine Glucose POC Glucose 170 H 121 H Lactic Acid Calcium Total Bilirubin AST Alkaline Phosphatase Ammonia Troponin T C-Reactive Protein Total Protein Albumin Prealbumin Crossmatch 09/05/16 09/05/16 09/05/16 04:30 04:30 05:09 WBC 31.9 H RBC 3.11 L Hgb 8.5 L Hct 28.3 L D MCH 27 L MCHC RDW 21.0 H Plt Count Seg Neutrophils % Seg Neuts % (Manual) Nucleated RBC % Seg Neutrophils # Seg Neutrophils # Man PT INR POC ABG pH 7.226 L POC ABG pCO2 61.6 H POC ABG pO2 68 L Sodium 134 L Potassium 5.5 H Chloride 96.6 L Carbon Dioxide BUN 23 H Creatinine 1.6 H Glucose 116 H POC Glucose Lactic Acid Calcium 7.1 L Total Bilirubin AST Alkaline Phosphatase Ammonia Troponin T C-Reactive Protein Total Protein Albumin Prealbumin Crossmatch 09/05/16 09/05/16 09/05/16 05:33 12:08 17:32 WBC RBC Hgb Hct MCH MCHC RDW Plt Count Seg Neutrophils % Seg Neuts % (Manual) Nucleated RBC % Seg Neutrophils # Seg Neutrophils # Man PT INR POC ABG pH POC ABG pCO2 POC ABG pO2 Sodium Potassium Chloride Carbon Dioxide BUN Creatinine Glucose POC Glucose 114 H 147 H 174 H Lactic Acid Calcium Total Bilirubin AST Alkaline Phosphatase Ammonia Troponin T C-Reactive Protein Total Protein Albumin Prealbumin Crossmatch 09/06/16 09/06/16 09/06/16 03:30 03:30 03:30 WBC 25.4 H RBC 2.57 L Hgb 7.2 L Hct 22.8 L MCH MCHC RDW 20.9 H Plt Count 138 L Seg Neutrophils % Seg Neuts % (Manual) Nucleated RBC % Seg Neutrophils # Seg Neutrophils # Man PT 16.4 H INR 1.33 H POC ABG pH POC ABG pCO2 POC ABG pO2 Sodium Potassium Chloride Carbon Dioxide BUN 36 H Creatinine 1.9 H Glucose POC Glucose Lactic Acid Calcium 7.2 L Total Bilirubin AST Alkaline Phosphatase Ammonia Troponin T C-Reactive Protein Total Protein Albumin Prealbumin Crossmatch 09/06/16 09/06/16 11:07 12:03 WBC RBC Hgb Hct MCH MCHC RDW Plt Count Seg Neutrophils % Seg Neuts % (Manual) Nucleated RBC % Seg Neutrophils # Seg Neutrophils # Man PT INR POC ABG pH POC ABG pCO2 POC ABG pO2 Sodium Potassium Chloride Carbon Dioxide BUN Creatinine Glucose POC Glucose 61 L Lactic Acid Calcium Total Bilirubin AST Alkaline Phosphatase Ammonia Troponin T 0.080 H C-Reactive Protein Total Protein Albumin Prealbumin Crossmatch Allied health notes reviewed: [facility] ED Critical Care Note - Critical Care Note Total Time (mins): 31
--- NOTE | 2016-09-06 14:18 | Progress Note ---
Assessment and Plan Assessment and plan: Patient is a 61-year-old morbid obese woman with a past medical history of congestive heart failure, severe protein calorie malnutrition (bilateral mormon muscle severe wasting, hypothenar muscle wasting) with BMI of 81.6, functional quadriplegia, type 2 diabetes mellitus, hypertension, multiple skin breakdown between legs and thighs who presented to the hospital via EMS with AMS. 2D echocardiogram with ejection fraction of 50-55%. During the past admission patient was recommended for placement but refused. On presentation to ED, patient was felt to be unable to maintain her airways and intubated the ER since 08/29/16. Acute toxic metabolic encephalopathy Acute on chronic diastolic congestive heart failure: Cardiology is following, diuresis Acute on chronic respiratory failure, intubated Septic shock on Levaphed: Weaning attempts Hypercoagulable state Severe anemia s/p blood transfusion: monitor cbc closely altered and. Mitral stenosis Paroxysmal atrial fibrillation Non-ST elevated HI: Cardiology is following, conservative management Acute on chronic kidney disease likely secondary to vasomotor nephropathy-POA Transaminitis-elevated alkaline phosphatase and AST: continue to monitor Severe protein calorie malnutrition albumin 1.2 Morbid obesity BMI 81.6 Mulitple PRESSURE ULCERS-POA: consulted wound care uncontrolled dm: increase ssi and wean down iv steroids. restraints renewed drop in HCT, ordered am labs Levaphed now at 8 mcg Unable to get CT head due to weight issues , boyfriend agreed to blood transfusion, hgb is 6.0 will transfuse 2 units==>h/ h steady, continue to monitor 09/05/16: Overnight was very eventful. New issue: Status epilepticus most likely due to anoxic brain injury, poa. She is back on 8 mcg of Levophed, which had weaned off up to the point of seizure activity Patient had status epilepticus before receiving blood transfusions. She was given multiple doses of Ativan and was still having breakthrough seizures. She was given phenobarbital and Dilantin but still having seizures. I started propofol drip which is helping. She still on IV Ativan drip also. Difficult family dynamics: Her son (she has multiple children), Srikanth and sister Leanne were at her bedside and well as her boyfriend who is not her legal , which he told me. They are upset because they didn't know patient was in the hospital. It appears the gentleman in the room is her boyfriend and not her legal He also did not notify the family the patient was here. That gentleman who is her boyfriend dropped the patient's wallet and our security called the number inside the wallet which was patient's mother's number and this is how the family found out that patient was in the hospital. I was told by RN, that patient has no , patient has 7 siblings and they are estranged from mother. No legal POA but sister Leanne is active in sister's life. Her boyfriend name is Tad Vieyra and he has consistently been at her beside, holding her hand and being supportive. New issue: Patient is becoming bradycardic, son at bedside defer to his Leanne and afebrile with family patient is now DO NOT RESUSCITATE, which I think is appropriate, poor prognosis. Spoke with the family to consider hospice History Interval history: Patient seen and examined. Follow up on respiratory failure. Patient still intubated. Overnight was very eventful. Patient had status epilepticus before receiving blood transfusions. She was given multiple doses of Ativan and was still having breakthrough seizures. She was given phenobarbital and Dilantin but still having seizures. I started propofol which helped. She still on IV Ativan drip. Her son and sister Leanne were at her bedside and well as her boyfriend who is not her legal , which he told me. They are upset because they didn't know patient was in the hospital. It appears the gentleman in the room is her boyfriend and not her legal He also did not notify the family the patient was here. That gentleman who is her boyfriend dropped the patient's wallet and our security called the number inside the wallet which was patient's mother's number and this is how the family found out that patient was in the hospital. Hospitalist Physical - Physical exam Narrative exam: GEN: Critically ill, morbid obese BMI 81.6, intubated HEENT: Pupils are pinpoint and reactive, ET tube in place NECK: SUPPLE, NO THYROMEGALY, NO JVD, NO LAD CVS: regular irregular NORMAL S1S2 LUNGS/CHEST: TA B, NORMAL CHEST EXPANSION B, GOOD AIR ENTRY B ABD: SOFT, NONDISTENDED GBS, NO REBOUND OR GUARDING MSK: Spontaneous movement of extremities NEURO: CN 2-12 GROSSLY INTACT, doesn't follow commands PSY: Confused - Constitutional Vitals: Temp Pulse Resp BP Pulse Ox 97.9 F 55 L 15 108/52 100 09/06/16 08:00 09/06/16 11:09 09/06/16 09:30 09/06/16 11:09 09/06/16 11:09 General appearance: Present: obese Results - Labs CBC & Chem 7: 09/06/16 03:30 09/06/16 03:30 Labs: Laboratory Last Values WBC 25.4 K/mm3 (4.5-11.0) H 09/06/16 03:30 RBC 2.57 M/mm3 (3.65-5.03) L 09/06/16 03:30 Hgb 7.2 gm/dl (10.1-14.3) L 09/06/16 03:30 Hct 22.8 % (30.3-42.9) L 09/06/16 03:30 MCV 89 fl (79-97) 09/06/16 03:30 MCH 28 pg (28-32) 09/06/16 03:30 MCHC 32 % (30-34) 09/06/16 03:30 RDW 20.9 % (13.2-15.2) H 09/06/16 03:30 Plt Count 138 K/mm3 (140-440) L 09/06/16 03:30 Lymph % (Auto) 15.6 % (13.4-35.0) 08/30/16 10:30 [place] % (Auto) 5.1 % (0.0-7.3) 08/30/16 10:30 Eos % (Auto) 0.6 % (0.0-4.3) 08/30/16 10:30 Baso % (Auto) 0.1 % (0.0-1.8) 08/30/16 10:30 Lymph # 1.7 K/mm3 (1.2-5.4) 08/30/16 10:30 [place] # 0.6 K/mm3 (0.0-0.8) 08/30/16 10:30 Eos # 0.1 K/mm3 (0.0-0.4) 08/30/16 10:30 Baso # 0.0 K/mm3 (0.0-0.1) 08/30/16 10:30 Add Manual Diff Complete 09/02/16 05:00 Total Counted 100 09/02/16 05:00 Seg Neutrophils % 78.6 % (40.0-70.0) H 08/30/16 10:30 Seg Neuts % (Manual) 72.0 % (40.0-70.0) H 09/02/16 05:00 Band Neutrophils % 9.0 % 09/02/16 05:00 Lymphocytes % (Manual) 15.0 % (13.4-35.0) 09/02/16 05:00 Reactive Lymphs % (Man) 0 % 09/02/16 05:00 Monocytes % (Manual) 4.0 % (0.0-7.3) 09/02/16 05:00 Eosinophils % (Manual) 0 % (0.0-4.3) 09/02/16 05:00 Basophils % (Manual) 0 % (0.0-1.8) 09/02/16 05:00 Metamyelocytes % 0 % 09/02/16 05:00 Myelocytes % 0 % 09/02/16 05:00 Promyelocytes % 0 % 09/02/16 05:00 Blast Cells % 0 % 09/02/16 05:00 Nucleated RBC % 25.0 % (0.0-0.9) H 09/02/16 05:00 Seg Neutrophils # 8.7 K/mm3 (1.8-7.7) H 08/30/16 10:30 Seg Neutrophils # Man 8.9 K/mm3 (1.8-7.7) H 09/02/16 05:00 Band Neutrophils # 1.1 K/mm3 09/02/16 05:00 Lymphocytes # (Manual) 1.8 K/mm3 (1.2-5.4) 09/02/16 05:00 Abs React Lymphs (Man) 0.0 K/mm3 09/02/16 05:00 Monocytes # (Manual) 0.5 K/mm3 (0.0-0.8) 09/02/16 05:00 Eosinophils # (Manual) 0.0 K/mm3 (0.0-0.4) 09/02/16 05:00 Basophils # (Manual) 0.0 K/mm3 (0.0-0.1) 09/02/16 05:00 Metamyelocytes # 0.0 K/mm3 09/02/16 05:00 Myelocytes # 0.0 K/mm3 09/02/16 05:00 Promyelocytes # 0.0 K/mm3 09/02/16 05:00 Blast Cells # 0.0 K/mm3 09/02/16 05:00 WBC Morphology Not Reportable 09/02/16 05:00 Hypersegmented Neuts Not Reportable 09/02/16 05:00 Hyposegmented Neuts Not Reportable 09/02/16 05:00 Hypogranular Neuts Not Reportable 09/02/16 05:00 Smudge Cells Not Reportable 09/02/16 05:00 Toxic Granulation Not Reportable 09/02/16 05:00 Toxic Vacuolation Not Reportable 09/02/16 05:00 Dohle Bodies Not Reportable 09/02/16 05:00 Pelger-Huet Anomaly Not Reportable 09/02/16 05:00 Feli Rods Not Reportable 09/02/16 05:00 Platelet Estimate Consistent w auto 09/02/16 05:00 Clumped Platelets Not Reportable 09/02/16 05:00 Plt Clumps, EDTA Not Reportable 09/02/16 05:00 Large Platelets Not Reportable 09/02/16 05:00 Giant Platelets Not Reportable 09/02/16 05:00 Platelet Satelliting Not Reportable 09/02/16 05:00 Plt Morphology Comment Not Reportable 09/02/16 05:00 RBC Morphology Not Reportable 09/02/16 05:00 Dimorphic RBCs Not Reportable 09/02/16 05:00 Polychromasia Rare 09/02/16 05:00 Hypochromasia Not Reportable 09/02/16 05:00 Poikilocytosis Not Reportable 09/02/16 05:00 Anisocytosis 1+ 09/02/16 05:00 Microcytosis Not Reportable 09/02/16 05:00 Macrocytosis 1+ 09/02/16 05:00 Spherocytes Not Reportable 09/02/16 05:00 Pappenheimer Bodies Not Reportable 09/02/16 05:00 Sickle Cells Not Reportable 09/02/16 05:00 Target Cells Not Reportable 09/02/16 05:00 Tear Drop Cells Not Reportable 09/02/16 05:00 Ovalocytes Not Reportable 09/02/16 05:00 Helmet Cells Not Reportable 09/02/16 05:00 [place] Bodies Not Reportable 09/02/16 05:00 [place] Rings Not Reportable 09/02/16 05:00 [place] Cells Not Reportable 09/02/16 05:00 Bite Cells Not Reportable 09/02/16 05:00 Crenated Cell Not Reportable 09/02/16 05:00 Elliptocytes Not Reportable 09/02/16 05:00 Acanthocytes (Spur) Not Reportable 09/02/16 05:00 Rouleaux Not Reportable 09/02/16 05:00 Hemoglobin C Crystals Not Reportable 09/02/16 05:00 Schistocytes Not Reportable 09/02/16 05:00 Malaria parasites Not Reportable 09/02/16 05:00 Manny Bodies Not Reportable 09/02/16 05:00 Hem Pathologist Commnt No 09/02/16 05:00 PT 16.4 Sec. (12.2-14.9) H 09/06/16 03:30 INR 1.33 (0.87-1.13) H 09/06/16 03:30 APTT 29.5 Sec. (24.2-36.6) 08/29/16 17:40 POC ABG pH 7.226 (7.35-7.45) L 09/05/16 05:09 POC ABG pCO2 61.6 (35-45) H 09/05/16 05:09 POC ABG pO2 68 (80-105) L 09/05/16 05:09 POC ABG HCO3 25.6 09/05/16 05:09 POC ABG Total CO2 27 09/05/16 05:09 POC ABG O2 Sat 89 09/05/16 05:09 POC ABG Base Excess -2 09/05/16 05:09 VBG pH 7.366 (7.320-7.420) 08/29/16 17:40 FiO2 30 % 09/05/16 05:09 Sodium 141 mmol/L (137-145) D 09/06/16 03:30 Potassium 4.1 mmol/L (3.6-5.0) 09/06/16 03:30 Chloride 99.4 mmol/L (98-107) 09/06/16 03:30 Carbon Dioxide 23 mmol/L (22-30) 09/06/16 03:30 Anion Gap 23 mmol/L 09/06/16 03:30 BUN 36 mg/dL (7-17) H 09/06/16 03:30 Creatinine 1.9 mg/dL (0.7-1.2) H 09/06/16 03:30 Estimated GFR 32 ml/min 09/06/16 03:30 BUN/Creatinine Ratio 18.94 % 09/06/16 03:30 Glucose 75 mg/dL (65-100) 09/06/16 03:30 POC Glucose 61 (70-105) L 09/06/16 12:03 Lactic Acid 1.90 mmol/L (0.7-2.0) 08/31/16 04:20 Calcium 7.2 mg/dL (8.4-10.2) L 09/06/16 03:30 Phosphorus 3.60 mg/dL (2.5-4.5) 08/29/16 21:59 Magnesium 1.70 mg/dL (1.7-2.3) 09/06/16 03:30 Total Bilirubin 1.30 mg/dL (0.1-1.2) H 09/01/16 04:00 AST 138 units/L (5-40) H 09/01/16 04:00 ALT 53 units/L (7-56) 09/01/16 04:00 Alkaline Phosphatase 520 units/L (35-129) H 09/01/16 04:00 Ammonia 70.0 umol/L (25-60) H 08/31/16 04:20 Total Creatine Kinase 36 units/L (30-135) 09/06/16 11:07 CK-MB (CK-2) < 1.0 ng/mL (0.0-4.0) 09/06/16 11:07 CK-MB (CK-2) Rel Index 2.7 (0-4) 09/06/16 11:07 Troponin T 0.080 ng/mL (0.00-0.029) H 09/06/16 11:07 C-Reactive Protein 10.20 mg/dL (0.00-1.30) H 08/30/16 22:20 NT-Pro-B Natriuret Pep 1712 pg/mL (0-900) H 08/29/16 17:40 Total Protein 6.1 g/dL (6.3-8.2) L 09/01/16 04:00 Albumin 1.2 g/dL (3.9-5) L 09/01/16 04:00 Albumin/Globulin Ratio 0.2 % 09/01/16 04:00 Prealbumin 0.120 g/L (0.200-0.400) L 08/29/16 21:59 Triglycerides 225 mg/dL (2-149) H 08/29/16 17:40 Cholesterol 130 mg/dL (50-199) 08/29/16 17:40 LDL Cholesterol Direct 82 mg/dL (50-130) 08/29/16 17:40 HDL Cholesterol 3 mg/dL (40-59) L 08/29/16 17:40 Cholesterol/HDL Ratio 43.33 % 08/29/16 17:40 Urine Color Yellow (Yellow) 08/31/16 15:37 Urine Turbidity Clear (Clear) 08/31/16 15:37 Urine pH 5.0 (5.0-7.0) 08/31/16 15:37 Ur Specific [place] 1.009 (1.003-1.030) 08/31/16 15:37 Urine Protein <15 mg/dl mg/dL (Negative) 08/31/16 15:37 Urine Glucose (UA) Neg mg/dL (Negative) 08/31/16 15:37 Urine Ketones Neg mg/dL (Negative) 08/31/16 15:37 Urine Blood Sm (Negative) 08/31/16 15:37 Urine Nitrite Neg (Negative) 08/31/16 15:37 Urine Bilirubin Neg (Negative) 08/31/16 15:37 Urine Urobilinogen < 2.0 mg/dL (<2.0) 08/31/16 15:37 Ur Leukocyte Esterase Sm (Negative) 08/31/16 15:37 Urine WBC (Auto) 3.0 /HPF (0.0-6.0) 08/31/16 15:37 Urine RBC (Auto) 1.0 /HPF (0.0-6.0) 08/31/16 15:37 U Epithel Cells (Auto) < 1.0 /HPF (0-13.0) 08/31/16 15:37 Urine Bacteria (Auto) 1+ /HPF (Negative) 08/31/16 15:37 Hyaline Casts 5 /LPF 08/31/16 15:37 Urine Mucus Few /HPF 08/31/16 15:37 Blood Type O POSITIVE 09/04/16 15:47 Antibody Screen TNR 09/04/16 15:47 PATRICK Antibody Screen Negative 09/04/16 15:47 Crossmatch See Detail 09/04/16 15:47
[2016-09-06] MEDS: LEVOPHED DRIP 4 MG/NS 250 ML 4 MG/250 ML BAG IV SCH (14:42)
[2016-09-06] MEDS: D10W 1,000 ML IV SCH (17:23)
[2016-09-07] MEDS: NOVOLOG SUB-Q SCH ×4 (01:00→18:11)
[2016-09-07] MEDS: LEVOPHED DRIP 4 MG/NS 250 ML 4 MG/250 ML BAG IV SCH ×2 (01:01→22:47)
[2016-09-07] MEDS: DUONEB 0.5 MG-3 MG/3 ML SOLN IH SCH ×4 (02:32→19:09)
[2016-09-07 05:36] LABS: Hematocrit 23.8 % (30.3-42.9); Hemoglobin 7.6 gm/dl (10.1-14.3); Mean Corpuscular HGB Conc 32 % (30-34); Mean Corpuscular Hemoglobin 28 pg (28-32); Mean Corpuscular Volume 89 fl (79-97); Platelet Count 137 K/mm3 (140-440); Red Blood Count 2.69 M/mm3 (3.65-5.03); White Blood Count 17.3 K/mm3 (4.5-11.0)
[2016-09-07 05:47] LABS: Red Cell Distribution Width 20.5 % (13.2-15.2)
[2016-09-07 05:53] LABS: BUN/Creatinine Ratio 23.75; Calcium 7.4 mg/dL (8.4-10.2); Chloride 100.1 mmol/L (98-107); Potassium 3.3 mmol/L (3.6-5.0)
[2016-09-07] MEDS: D10W 1,000 ML IV SCH (05:53)
[2016-09-07] MEDS: ZAROXOLYN PO SCH (08:25)
[2016-09-07] MEDS: LASIX IV SCH (08:27)
--- NOTE | 2016-09-07 08:40 | XRay Report ---
AP CHEST: HISTORY: Follow up respiratory failure No significant change in borderline to mild cardiomegaly, mild vascular congestion and trace pleural effusions is demonstrated since yesterday's exam. No new acute findings are appreciated. Lines and support devices remain in good position. IMPRESSION: No change.
--- NOTE | 2016-09-07 08:52 | Progress Note ---
Assessment and Plan - Patient Problems (1) RORY (acute kidney injury) Current Visit: No Status: Acute Plan to address problem: Acute Kidney Injury is hemodynamically mediated in the setting of hypotension / shock. Creatinine level is slightly better today. Remain on Levophed. Continue current treatment. (2) Hyperkalemia Current Visit: No Status: Acute Plan to address problem: Improved with Kayexalate. (3) Shock Current Visit: Yes Status: Acute Plan to address problem: On Levophed. (4) Respiratory failure Current Visit: Yes Status: Acute Qualifiers: Chronicity: C Respiratory failure complication: R Plan to address problem: On vent. (5) Altered mental status Current Visit: Yes Status: Acute Qualifiers: Altered mental status type: unspecified Coma depth: C Coma timing: C Qualified Code(s): R41.82 - Altered mental status, unspecified (6) Anemia Current Visit: Yes Status: Acute Qualifiers: Anemia type: unspecified type Iron deficiency anemia type: I Vitamin B12 deficiency anemia type: V Folate deficiency anemia type: F Bone marrow failure anemia type: B Hemolytic anemia type: H Other causes of anemia: O Qualified Code(s): D64.9 - Anemia, unspecified Plan to address problem: S/p PRBC. Subjective Date of service: 09/07/16 Interval history: Patient remain on the vent. Objective - Vital Signs Vital signs: Vital Signs - 12hr 09/06/16 09/06/16 09/06/16 21:00 21:15 21:30 Temperature Pulse Rate 64 68 70 Pulse Rate [ Anterior Bilateral Throughout] Pulse Rate [ From Monitor] Respiratory 27 H 9 L 5 L Rate Respiratory Rate [Anterior Bilateral Throughout] Blood Pressure 123/63 128/63 126/63 O2 Sat by Pulse 98 Oximetry 09/06/16 09/06/16 09/06/16 21:45 22:00 22:15 Temperature Pulse Rate 68 62 67 Pulse Rate [ Anterior Bilateral Throughout] Pulse Rate [ From Monitor] Respiratory 28 H 28 H 27 H Rate Respiratory Rate [Anterior Bilateral Throughout] Blood Pressure 123/56 121/54 124/55 O2 Sat by Pulse 97 99 99 Oximetry 09/06/16 09/06/16 09/06/16 22:30 22:45 22:54 Temperature Pulse Rate 68 63 58 L Pulse Rate [ Anterior Bilateral Throughout] Pulse Rate [ From Monitor] Respiratory 26 H 28 H Rate Respiratory Rate [Anterior Bilateral Throughout] Blood Pressure 121/53 114/55 114/55 O2 Sat by Pulse 97 97 100 Oximetry 09/06/16 09/06/16 09/06/16 23:00 23:15 23:30 Temperature Pulse Rate 57 L 65 55 L Pulse Rate [ Anterior Bilateral Throughout] Pulse Rate [ From Monitor] Respiratory 25 H 25 H 22 Rate Respiratory Rate [Anterior Bilateral Throughout] Blood Pressure 128/47 128/56 128/49 O2 Sat by Pulse 98 97 98 Oximetry 09/06/16 09/06/16 09/07/16 23:45 23:58 00:00 Temperature Pulse Rate 65 60 54 L Pulse Rate [ Anterior Bilateral Throughout] Pulse Rate [ 62 From Monitor] Respiratory 25 H 27 H 24 Rate Respiratory Rate [Anterior Bilateral Throughout] Blood Pressure 120/55 120/55 135/48 O2 Sat by Pulse 96 100 100 Oximetry 09/07/16 09/07/16 09/07/16 00:03 00:15 00:23 Temperature 97.4 F L Pulse Rate 52 L 50 L Pulse Rate [ Anterior Bilateral Throughout] Pulse Rate [ From Monitor] Respiratory 25 H 24 Rate Respiratory Rate [Anterior Bilateral Throughout] Blood Pressure 135/48 132/54 O2 Sat by Pulse 100 97 Oximetry 09/07/16 09/07/16 09/07/16 00:30 00:45 01:00 Temperature Pulse Rate 61 66 58 L Pulse Rate [ Anterior Bilateral Throughout] Pulse Rate [ From Monitor] Respiratory 29 H 26 H 23 Rate Respiratory Rate [Anterior Bilateral Throughout] Blood Pressure 144/54 125/63 130/56 O2 Sat by Pulse 98 96 98 Oximetry 09/07/16 09/07/16 09/07/16 01:15 01:30 01:45 Temperature Pulse Rate 67 61 57 L Pulse Rate [ Anterior Bilateral Throughout] Pulse Rate [ From Monitor] Respiratory 26 H 26 H 25 H Rate Respiratory Rate [Anterior Bilateral Throughout] Blood Pressure 133/59 140/58 138/58 O2 Sat by Pulse 96 96 96 Oximetry 09/07/16 09/07/16 09/07/16 02:00 02:15 02:30 Temperature Pulse Rate 59 L 59 L 56 L Pulse Rate [ Anterior Bilateral Throughout] Pulse Rate [ From Monitor] Respiratory 24 27 H 26 H Rate Respiratory Rate [Anterior Bilateral Throughout] Blood Pressure 144/81 147/72 141/71 O2 Sat by Pulse 97 94 94 Oximetry 09/07/16 09/07/16 09/07/16 02:32 02:45 02:59 Temperature Pulse Rate 52 L 61 Pulse Rate [ 51 L 61 Anterior Bilateral Throughout] Pulse Rate [ From Monitor] Respiratory 29 H Rate Respiratory 27 H 25 H Rate [Anterior Bilateral Throughout] Blood Pressure 144/56 144/56 O2 Sat by Pulse 99 100 Oximetry 09/07/16 09/07/16 09/07/16 03:00 03:15 03:30 Temperature Pulse Rate 63 49 L 58 L Pulse Rate [ Anterior Bilateral Throughout] Pulse Rate [ From Monitor] Respiratory 28 H 27 H 30 H Rate Respiratory Rate [Anterior Bilateral Throughout] Blood Pressure 147/46 150/56 141/69 O2 Sat by Pulse 96 95 97 Oximetry 09/07/16 09/07/16 09/07/16 03:45 04:00 04:15 Temperature 97.8 F Pulse Rate 69 68 67 Pulse Rate [ Anterior Bilateral Throughout] Pulse Rate [ 46 L From Monitor] Respiratory 28 H 29 H 27 H Rate Respiratory Rate [Anterior Bilateral Throughout] Blood Pressure 144/64 136/65 143/71 O2 Sat by Pulse 96 96 94 Oximetry 09/07/16 09/07/16 09/07/16 04:30 04:45 05:00 Temperature Pulse Rate 61 56 L 61 Pulse Rate [ Anterior Bilateral Throughout] Pulse Rate [ From Monitor] Respiratory H 27 H 28 H Rate Respiratory Rate [Anterior Bilateral Throughout] Blood Pressure 152/65 142/66 143/64 O2 Sat by Pulse 97 96 96 Oximetry 09/07/16 09/07/16 09/07/16 05:15 05:30 05:45 Temperature Pulse Rate 62 67 64 Pulse Rate [ Anterior Bilateral Throughout] Pulse Rate [ From Monitor] Respiratory 28 H 27 H 28 H Rate Respiratory Rate [Anterior Bilateral Throughout] Blood Pressure 135/69 146/72 146/68 O2 Sat by Pulse 96 95 94 Oximetry 09/07/16 09/07/16 09/07/16 06:00 06:15 06:30 Temperature Pulse Rate 56 L 58 L 56 L Pulse Rate [ Anterior Bilateral Throughout] Pulse Rate [ From Monitor] Respiratory 24 25 H 28 H Rate Respiratory Rate [Anterior Bilateral Throughout] Blood Pressure 140/52 149/47 138/68 O2 Sat by Pulse 96 97 96 Oximetry 09/07/16 09/07/16 09/07/16 06:45 07:00 07:15 Temperature Pulse Rate 65 58 L 70 Pulse Rate [ Anterior Bilateral Throughout] Pulse Rate [ From Monitor] Respiratory 28 H 28 H 26 H Rate Respiratory Rate [Anterior Bilateral Throughout] Blood Pressure 145/58 150/48 143/57 O2 Sat by Pulse 96 95 97 Oximetry 09/07/16 09/07/16 09/07/16 07:30 07:41 07:45 Temperature 97.5 F L Pulse Rate 51 L 66 Pulse Rate [ Anterior Bilateral Throughout] Pulse Rate [ From Monitor] Respiratory 28 H 29 H Rate Respiratory Rate [Anterior Bilateral Throughout] Blood Pressure 149/63 148/66 O2 Sat by Pulse 96 95 Oximetry 09/07/16 09/07/16 09/07/16 08:00 08:15 08:33 Temperature Pulse Rate 50 L 57 L 52 L Pulse Rate [ Anterior Bilateral Throughout] Pulse Rate [ From Monitor] Respiratory 30 H 29 H Rate Respiratory Rate [Anterior Bilateral Throughout] Blood Pressure 140/63 147/67 147/67 O2 Sat by Pulse 96 96 100 Oximetry 09/07/16 08:43 Temperature Pulse Rate Pulse Rate [ 71 Anterior Bilateral Throughout] Pulse Rate [ From Monitor] Respiratory Rate Respiratory 29 H Rate [Anterior Bilateral Throughout] Blood Pressure O2 Sat by Pulse Oximetry - General Appearance General appearance: well-developed, well-nourished, appears stated age, sedated on ventilator (FiO2 50%), intubated EENT: ATNC, PERRL Neck: supple Respiratory: Present: Other (coarse breath sounds) Cardiology: regular, S1S2, no murmurs Gastrointestinal: normoactive bowel sounds, obese Integumentary: no rash Neurologic: other (sedated) Musculoskeletal: other (2+ edema of both LEs noted) - Lab 09/07/16 03:42 09/07/16 03:42 Most recent lab results Calcium 7.4 mg/dL (8.4-10.2) L 09/07/16 03:42 Phosphorus 3.60 mg/dL (2.5-4.5) 08/29/16 21:59 Magnesium 1.70 mg/dL (1.7-2.3) 09/06/16 03:30
[2016-09-07] MEDS: PROTONIX PO SCH (09:51)
[2016-09-07] MEDS: LEVEMIR SUB-Q SCH (09:51)
[2016-09-07] MEDS: FOLVITE PO SCH (09:51)
[2016-09-07] MEDS: FERROUS SULFATE PO SCH (09:51)
[2016-09-07] MEDS: KEPPRA PO SCH ×2 (09:51→22:21)
[2016-09-07] MEDS ORDERED: POTASSIUM CHLORIDE FEEDTUBE ONE (10:00)
--- NOTE | 2016-09-07 11:12 | Progress Note ---
Assessment and Plan Assessment and plan: Patient is a 61-year-old morbid obese woman with a past medical history of congestive heart failure, severe protein calorie malnutrition (bilateral moravian muscle severe wasting, hypothenar muscle wasting) with BMI of 81.6, functional quadriplegia, type 2 diabetes mellitus, hypertension, multiple skin breakdown between legs and thighs who presented to the hospital via EMS with AMS. 2D echocardiogram with ejection fraction of 50-55%. During the past admission patient was recommended for placement but refused. On presentation to ED, patient was felt to be unable to maintain her airways and intubated the ER since 08/29/16. Acute toxic metabolic encephalopathy Acute on chronic diastolic congestive heart failure: Cardiology is following, diuresis Acute on chronic respiratory failure, intubated Septic shock on Levaphed: Weaning attempts Hypercoagulable state Severe anemia s/p blood transfusion: monitor cbc closely altered and. Mitral stenosis Paroxysmal atrial fibrillation Non-ST elevated LA: Cardiology is following, conservative management Acute on chronic kidney disease likely secondary to vasomotor nephropathy-POA Transaminitis-elevated alkaline phosphatase and AST: continue to monitor Severe protein calorie malnutrition albumin 1.2 Morbid obesity BMI 81.6 Mulitple PRESSURE ULCERS-POA: consulted wound care uncontrolled dm: increase ssi and wean down iv steroids. restraints renewed drop in HCT, ordered am labs Levaphed now at 4 mcg Unable to get CT head due to weight issues , boyfriend agreed to blood transfusion, hgb is 6.0 will transfuse 2 units==>h/ h steady, continue to monitor 09/05/16: Overnight was very eventful. New issue: Status epilepticus most likely due to anoxic brain injury, poa. She is back on 8 mcg of Levophed, which had weaned off up to the point of seizure activity Patient had status epilepticus before receiving blood transfusions. She was given multiple doses of Ativan and was still having breakthrough seizures. She was given phenobarbital and Dilantin but still having seizures. I started propofol drip which is helping. She still on IV Ativan drip also. Difficult family dynamics: Her son (she has multiple children), Srikanth and sister Leanne were at her bedside and well as her boyfriend who is not her legal , which he told me. They are upset because they didn't know patient was in the hospital. It appears the gentleman in the room is her boyfriend and not her legal He also did not notify the family the patient was here. That gentleman who is her boyfriend dropped the patient's wallet and our security called the number inside the wallet which was patient's mother's number and this is how the family found out that patient was in the hospital. I was told by RN, that patient has no , patient has 7 siblings and they are estranged from mother. No legal POA but sister Leanne is active in sister's life. Her boyfriend name is Tad Vieyra and he has consistently been at her beside, holding her hand and being supportive. History Interval history: Patient seen and examined. Follow up on respiratory failure. Patient still intubated. Overnight was very eventful. Patient had status epilepticus before receiving blood transfusions. She was given multiple doses of Ativan and was still having breakthrough seizures. She was given phenobarbital and Dilantin but still having seizures. I started propofol which helped. She still on IV Ativan drip. Her son and sister Leanne were at her bedside and well as her boyfriend who is not her legal , which he told me. They are upset because they didn't know patient was in the hospital. It appears the gentleman in the room is her boyfriend and not her legal He also did not notify the family the patient was here. That gentleman who is her boyfriend dropped the patient's wallet and our security called the number inside the wallet which was patient's mother's number and this is how the family found out that patient was in the hospital. Hospitalist Physical - Physical exam Narrative exam: GEN: Critically ill, morbid obese BMI 81.6, intubated HEENT: Pupils are pinpoint and reactive, ET tube in place NECK: SUPPLE, NO THYROMEGALY, NO JVD, NO LAD CVS: regular irregular NORMAL S1S2 LUNGS/CHEST: TA B, NORMAL CHEST EXPANSION B, GOOD AIR ENTRY B ABD: SOFT, NONDISTENDED GBS, NO REBOUND OR GUARDING MSK: Spontaneous movement of extremities NEURO: CN 2-12 GROSSLY INTACT, doesn't follow commands PSY: Confused - Constitutional Vitals: Temp Pulse Resp BP Pulse Ox 97.5 F L 57 L 25 H 128/55 96 09/07/16 07:41 09/07/16 11:00 09/07/16 11:00 09/07/16 11:00 09/07/16 11:00 General appearance: Present: obese Results - Labs CBC & Chem 7: 09/07/16 03:42 09/07/16 03:42 Labs: Laboratory Last Values WBC 17.3 K/mm3 (4.5-11.0) H 09/07/16 03:42 RBC 2.69 M/mm3 (3.65-5.03) L 09/07/16 03:42 Hgb 7.6 gm/dl (10.1-14.3) L 09/07/16 03:42 Hct 23.8 % (30.3-42.9) L 09/07/16 03:42 MCV 89 fl (79-97) 09/07/16 03:42 MCH 28 pg (28-32) 09/07/16 03:42 MCHC 32 % (30-34) 09/07/16 03:42 RDW 20.5 % (13.2-15.2) H 09/07/16 03:42 Plt Count 137 K/mm3 (140-440) L 09/07/16 03:42 Lymph % (Auto) 15.6 % (13.4-35.0) 08/30/16 10:30 [place] % (Auto) 5.1 % (0.0-7.3) 08/30/16 10:30 Eos % (Auto) 0.6 % (0.0-4.3) 08/30/16 10:30 Baso % (Auto) 0.1 % (0.0-1.8) 08/30/16 10:30 Lymph # 1.7 K/mm3 (1.2-5.4) 08/30/16 10:30 [place] # 0.6 K/mm3 (0.0-0.8) 08/30/16 10:30 Eos # 0.1 K/mm3 (0.0-0.4) 08/30/16 10:30 Baso # 0.0 K/mm3 (0.0-0.1) 08/30/16 10:30 Add Manual Diff Complete 09/02/16 05:00 Total Counted 100 09/02/16 05:00 Seg Neutrophils % 78.6 % (40.0-70.0) H 08/30/16 10:30 Seg Neuts % (Manual) 72.0 % (40.0-70.0) H 09/02/16 05:00 Band Neutrophils % 9.0 % 09/02/16 05:00 Lymphocytes % (Manual) 15.0 % (13.4-35.0) 09/02/16 05:00 Reactive Lymphs % (Man) 0 % 09/02/16 05:00 Monocytes % (Manual) 4.0 % (0.0-7.3) 09/02/16 05:00 Eosinophils % (Manual) 0 % (0.0-4.3) 09/02/16 05:00 Basophils % (Manual) 0 % (0.0-1.8) 09/02/16 05:00 Metamyelocytes % 0 % 09/02/16 05:00 Myelocytes % 0 % 09/02/16 05:00 Promyelocytes % 0 % 09/02/16 05:00 Blast Cells % 0 % 09/02/16 05:00 Nucleated RBC % 25.0 % (0.0-0.9) H 09/02/16 05:00 Seg Neutrophils # 8.7 K/mm3 (1.8-7.7) H 08/30/16 10:30 Seg Neutrophils # Man 8.9 K/mm3 (1.8-7.7) H 09/02/16 05:00 Band Neutrophils # 1.1 K/mm3 09/02/16 05:00 Lymphocytes # (Manual) 1.8 K/mm3 (1.2-5.4) 09/02/16 05:00 Abs React Lymphs (Man) 0.0 K/mm3 09/02/16 05:00 Monocytes # (Manual) 0.5 K/mm3 (0.0-0.8) 09/02/16 05:00 Eosinophils # (Manual) 0.0 K/mm3 (0.0-0.4) 09/02/16 05:00 Basophils # (Manual) 0.0 K/mm3 (0.0-0.1) 09/02/16 05:00 Metamyelocytes # 0.0 K/mm3 09/02/16 05:00 Myelocytes # 0.0 K/mm3 09/02/16 05:00 Promyelocytes # 0.0 K/mm3 09/02/16 05:00 Blast Cells # 0.0 K/mm3 09/02/16 05:00 WBC Morphology Not Reportable 09/02/16 05:00 Hypersegmented Neuts Not Reportable 09/02/16 05:00 Hyposegmented Neuts Not Reportable 09/02/16 05:00 Hypogranular Neuts Not Reportable 09/02/16 05:00 Smudge Cells Not Reportable 09/02/16 05:00 Toxic Granulation Not Reportable 09/02/16 05:00 Toxic Vacuolation Not Reportable 09/02/16 05:00 Dohle Bodies Not Reportable 09/02/16 05:00 Pelger-Huet Anomaly Not Reportable 09/02/16 05:00 Feli Rods Not Reportable 09/02/16 05:00 Platelet Estimate Consistent w auto 09/02/16 05:00 Clumped Platelets Not Reportable 09/02/16 05:00 Plt Clumps, EDTA Not Reportable 09/02/16 05:00 Large Platelets Not Reportable 09/02/16 05:00 Giant Platelets Not Reportable 09/02/16 05:00 Platelet Satelliting Not Reportable 09/02/16 05:00 Plt Morphology Comment Not Reportable 09/02/16 05:00 RBC Morphology Not Reportable 09/02/16 05:00 Dimorphic RBCs Not Reportable 09/02/16 05:00 Polychromasia Rare 09/02/16 05:00 Hypochromasia Not Reportable 09/02/16 05:00 Poikilocytosis Not Reportable 09/02/16 05:00 Anisocytosis 1+ 09/02/16 05:00 Microcytosis Not Reportable 09/02/16 05:00 Macrocytosis 1+ 09/02/16 05:00 Spherocytes Not Reportable 09/02/16 05:00 Pappenheimer Bodies Not Reportable 09/02/16 05:00 Sickle Cells Not Reportable 09/02/16 05:00 Target Cells Not Reportable 09/02/16 05:00 Tear Drop Cells Not Reportable 09/02/16 05:00 Ovalocytes Not Reportable 09/02/16 05:00 Helmet Cells Not Reportable 09/02/16 05:00 Patterson-Ayden Bodies Not Reportable 09/02/16 05:00 Everetts Rings Not Reportable 09/02/16 05:00 Dana Cells Not Reportable 09/02/16 05:00 Bite Cells Not Reportable 09/02/16 05:00 Crenated Cell Not Reportable 09/02/16 05:00 Elliptocytes Not Reportable 09/02/16 05:00 Acanthocytes (Spur) Not Reportable 09/02/16 05:00 Rouleaux Not Reportable 09/02/16 05:00 Hemoglobin C Crystals Not Reportable 09/02/16 05:00 Schistocytes Not Reportable 09/02/16 05:00 Malaria parasites Not Reportable 09/02/16 05:00 Manny Bodies Not Reportable 09/02/16 05:00 Hem Pathologist Commnt No 09/02/16 05:00 PT 16.4 Sec. (12.2-14.9) H 09/06/16 03:30 INR 1.33 (0.87-1.13) H 09/06/16 03:30 APTT 29.5 Sec. (24.2-36.6) 08/29/16 17:40 POC ABG pH 7.226 (7.35-7.45) L 09/05/16 05:09 POC ABG pCO2 61.6 (35-45) H 09/05/16 05:09 POC ABG pO2 68 (80-105) L 09/05/16 05:09 POC ABG HCO3 25.6 09/05/16 05:09 POC ABG Total CO2 27 09/05/16 05:09 POC ABG O2 Sat 89 09/05/16 05:09 POC ABG Base Excess -2 09/05/16 05:09 VBG pH 7.366 (7.320-7.420) 08/29/16 17:40 FiO2 30 % 09/05/16 05:09 Sodium 142 mmol/L (137-145) 09/07/16 03:42 Potassium 3.3 mmol/L (3.6-5.0) L 09/07/16 03:42 Chloride 100.1 mmol/L (98-107) 09/07/16 03:42 Carbon Dioxide 23 mmol/L (22-30) 09/07/16 03:42 Anion Gap 22 mmol/L 09/07/16 03:42 BUN 38 mg/dL (7-17) H 09/07/16 03:42 Creatinine 1.6 mg/dL (0.7-1.2) H 09/07/16 03:42 Estimated GFR 40 ml/min 09/07/16 03:42 BUN/Creatinine Ratio 23.75 % 09/07/16 03:42 Glucose 201 mg/dL (65-100) H 09/07/16 03:42 POC Glucose 241 (70-105) H 09/07/16 05:04 Lactic Acid 1.90 mmol/L (0.7-2.0) 08/31/16 04:20 Calcium 7.4 mg/dL (8.4-10.2) L 09/07/16 03:42 Phosphorus 3.60 mg/dL (2.5-4.5) 08/29/16 21:59 Magnesium 1.70 mg/dL (1.7-2.3) 09/06/16 03:30 Total Bilirubin 1.30 mg/dL (0.1-1.2) H 09/01/16 04:00 AST 138 units/L (5-40) H 09/01/16 04:00 ALT 53 units/L (7-56) 09/01/16 04:00 Alkaline Phosphatase 520 units/L (35-129) H 09/01/16 04:00 Ammonia 70.0 umol/L (25-60) H 08/31/16 04:20 Total Creatine Kinase 36 units/L (30-135) 09/06/16 11:07 CK-MB (CK-2) < 1.0 ng/mL (0.0-4.0) 09/06/16 11:07 CK-MB (CK-2) Rel Index 2.7 (0-4) 09/06/16 11:07 Troponin T 0.080 ng/mL (0.00-0.029) H 09/06/16 11:07 C-Reactive Protein 10.20 mg/dL (0.00-1.30) H 08/30/16 22:20 NT-Pro-B Natriuret Pep 1712 pg/mL (0-900) H 08/29/16 17:40 Total Protein 6.1 g/dL (6.3-8.2) L 09/01/16 04:00 Albumin 1.2 g/dL (3.9-5) L 09/01/16 04:00 Albumin/Globulin Ratio 0.2 % 09/01/16 04:00 Prealbumin 0.120 g/L (0.200-0.400) L 08/29/16 21:59 Triglycerides 225 mg/dL (2-149) H 08/29/16 17:40 Cholesterol 130 mg/dL (50-199) 08/29/16 17:40 LDL Cholesterol Direct 82 mg/dL (50-130) 08/29/16 17:40 HDL Cholesterol 3 mg/dL (40-59) L 08/29/16 17:40 Cholesterol/HDL Ratio 43.33 % 08/29/16 17:40 Urine Color Yellow (Yellow) 08/31/16 15:37 Urine Turbidity Clear (Clear) 08/31/16 15:37 Urine pH 5.0 (5.0-7.0) 08/31/16 15:37 Ur Specific [place] 1.009 (1.003-1.030) 08/31/16 15:37 Urine Protein <15 mg/dl mg/dL (Negative) 08/31/16 15:37 Urine Glucose (UA) Neg mg/dL (Negative) 08/31/16 15:37 Urine Ketones Neg mg/dL (Negative) 08/31/16 15:37 Urine Blood Sm (Negative) 08/31/16 15:37 Urine Nitrite Neg (Negative) 08/31/16 15:37 Urine Bilirubin Neg (Negative) 08/31/16 15:37 Urine Urobilinogen < 2.0 mg/dL (<2.0) 08/31/16 15:37 Ur Leukocyte Esterase Sm (Negative) 08/31/16 15:37 Urine WBC (Auto) 3.0 /HPF (0.0-6.0) 08/31/16 15:37 Urine RBC (Auto) 1.0 /HPF (0.0-6.0) 08/31/16 15:37 U Epithel Cells (Auto) < 1.0 /HPF (0-13.0) 08/31/16 15:37 Urine Bacteria (Auto) 1+ /HPF (Negative) 08/31/16 15:37 Hyaline Casts 5 /LPF 08/31/16 15:37 Urine Mucus Few /HPF 08/31/16 15:37 Blood Type O POSITIVE 09/04/16 15:47 Antibody Screen TNR 09/04/16 15:47 PATRICK Antibody Screen Negative 09/04/16 15:47 Crossmatch See Detail 09/04/16 15:47
--- NOTE | 2016-09-07 11:18 | Progress Note ---
Assessment and Plan - Patient Problems (1) Leukocytosis, unspecified Current Visit: Yes Status: Acute Qualifiers: Leukocytosis type: L Plan to address problem: 1. Downtrending WBC count. No new infectious issues clinically. 2. Continue to monitor off antibiotics for now. Subjective Date of service: 09/07/16 Interval history: Remains in ICU. Afebrile. No new clinical issues. Objective - Exam Narrative Exam: morbidly obese, intubated, FiO2 50% - Constitutional Vitals: Vital Signs Temp Pulse Resp BP Pulse Ox 97.5 F L 57 L 25 H 128/55 96 09/07/16 07:41 09/07/16 11:00 09/07/16 11:00 09/07/16 11:00 09/07/16 11:00 Temperature -Last 24 Hours Temperature 97.5 F Temperature 97.8 F Temperature 97.4 F Temperature 97.5 F - EENT Eyes: no conjunctival injection ENT: other (ET and NG tubes) - Respiratory Respiratory effort: normal Respiratory: bilateral: CTA, diminished - Cardiovascular Rhythm: regular Heart Sounds: Present: S1 & S2 Extremities: No edema - Gastrointestinal General gastrointestinal: Present: soft, non-distended - Integumentary Integumentary: clear, no rash - Additional findings Additional findings: left subclavian central line - Labs CBC & Chem 7: 09/07/16 03:42 09/07/16 03:42 Labs: Abnormal lab results 09/06/16 09/06/16 09/06/16 Range/Units 11:07 12:03 14:44 WBC (4.5-11.0) K/mm3 RBC (3.65-5.03) M/mm3 Hgb (10.1-14.3) gm/dl Hct (30.3-42.9) % RDW (13.2-15.2) % Plt Count (140-440) K/mm3 Potassium (3.6-5.0) mmol/L BUN (7-17) mg/dL Creatinine (0.7-1.2) mg/dL Glucose (65-100) mg/dL POC Glucose 61 L 55 L (70-105) Calcium (8.4-10.2) mg/dL Troponin T 0.080 H (0.00-0.029) ng/mL 09/06/16 09/06/1609/07/17 Range/Units 21:05 23:53 03:36 WBC (4.5-11.0) K/mm3 RBC (3.65-5.03) M/mm3 Hgb (10.1-14.3) gm/dl Hct (30.3-42.9) % RDW (13.2-15.2) % Plt Count (140-440) K/mm3 Potassium (3.6-5.0) mmol/L BUN (7-17) mg/dL Creatinine (0.7-1.2) mg/dL Glucose (65-100) mg/dL POC Glucose 140 H 178 H 243 H (70-105) Calcium (8.4-10.2) mg/dL Troponin T (0.00-0.029) ng/mL 09/07/16 09/07/16 09/07/16 Range/Units 03:42 03:42 05:04 WBC 17.3 H (4.5-11.0) K/mm3 RBC 2.69 L (3.65-5.03) M/mm3 Hgb 7.6 L (10.1-14.3) gm/dl Hct 23.8 L (30.3-42.9) % RDW 20.5 H (13.2-15.2) % Plt Count 137 L (140-440) K/mm3 Potassium 3.3 L (3.6-5.0) mmol/L BUN 38 H (7-17) mg/dL Creatinine 1.6 H (0.7-1.2) mg/dL Glucose 201 H (65-100) mg/dL POC Glucose 241 H (70-105) Calcium 7.4 L (8.4-10.2) mg/dL Troponin T (0.00-0.029) ng/mL Microbiology 08/29/16 17:40 Peripheral/Venous Blood Culture - Final NO GROWTH AFTER 5 DAYS 08/29/16 17:45 Peripheral/Venous Blood Culture - Final NO GROWTH AFTER 5 DAYS 09/03/16 18:00 Stool Stool Occult Blood (JEANNETTE) - Final 08/29/16 15:37 Urine,Catheterized - Indwelling Catheter Urine Culture - Final NO GROWTH AFTER 48 HOURS 08/29/16 Unknown Tracheal Aspirate Sputum Culture - Final Active Medications Acetaminophen (Tylenol) 650 mg PO Q4H PRN PRN Reason: Pain MILD(1-3)/Fever >100.5/DUBOSE Albuterol (Proventil) 2.5 mg IH Q3HRT PRN PRN Reason: Shortness Of Breath Albuterol/Ipratropium (Duoneb 0.5 Mg-3 Mg/3 Ml Soln) 1 ampul IH Q6HRT [facility] Last Admin: 09/07/16 08:43 Dose: 1 ampul Lipase/Protease/Amylase (Pancreaze Dr 10,500 Unit) 1 each FEEDTUBE PRN PRN PRN Reason: For Clogged Feeding Tube Bisacodyl (Dulcolax) 10 mg MI QDAY PRN PRN Reason: Constipation unrelieved by MOM Ferrous Sulfate (Ferrous Sulfate) 300 mg PO QDAY [facility] Last Admin: 09/07/16 09:51 Dose: 300 mg Folic Acid (Folvite) 1 mg PO DAILY [facility] Last Admin: 09/07/16 09:51 Dose: 1 mg Hydrophilic Ointment (Vaseline Lip Therapy) 1 applic TP Q2HR PRN PRN Reason: Dry Lips Hydrophilic Ointment (Vaseline Lip Therapy) 1 applic TP Q2HR PRN PRN Reason: Dry Lips Norepinephrine (Levophed Drip 4 Mg/Ns 250 Ml) 4 mg in 250 mls @ 7.5 mls/hr IV TITR KATHY; 2 MCG/MIN PRN Reason: Protocol Last Titration: 09/07/16 09:00 Dose: 2 mcg/min, 7.5 mls/hr Lorazepam 100 mg/ Sodium Chloride/ Miscellaneous Information 100 mls @ 2 mls/ hr IV TITR KATHY; 2 MG/HR PRN Reason: Protocol Last Titration: 09/06/16 18:00 Dose: 3 mg/hr, 3 mls/hr Propofol (Diprivan 10 Mg/Ml) 1,000 mg in 100 mls @ 5.688 mls/hr IV TITR KATHY; 5 MCG/KG/MIN PRN Reason: Protocol Last Titration: 09/07/16 07:00 Dose: 4 mcg/kg/min, 4.55 mls/hr Dopamine HCl/Dextrose (Intropin Drip 800 Mg/D5w 250 Ml) 800 mg in 250 mls @ 7.11 mls/hr IV TITR KATHY; 2 MCG/KG/MIN PRN Reason: Protocol Dextrose (D10w) 1,000 mls @ 75 mls/hr IV DIRECT [facility] Last Admin: 09/07/16 05:53 Dose: 75 mls/hr Insulin Aspart (Novolog) 0 units SUB-Q Q6HR KATHY PRN Reason: Protocol Last Admin: 09/07/16 05:55 Dose: 4 units Insulin Detemir (Levemir) 45 units SUB-Q QAM@0800 [facility] Last Admin: 09/07/16 09:51 Dose: 45 units Lactulose (Cephulac) 20 gm PO Q6H PRN PRN Reason: Constipation Levetiracetam (Keppra) 500 mg PO BID [facility] Last Admin: 09/07/16 09:51 Dose: 500 mg Lorazepam (Ativan) 1 mg IV Q5MIN PRN PRN Reason: Seizures Last Admin: 09/05/16 03:05 Dose: 1 mg Magnesium Hydroxide (Milk Of Magnesia) 30 ml PO Q4H PRN PRN Reason: Constipation Methylprednisolone Sodium Succinate (Solu-Medrol) 40 mg IV Q12HR [facility] Last Admin: 09/07/16 09:50 Dose: 40 mg Metolazone (Zaroxolyn) 5 mg PO Q24H [facility] Last Admin: 09/07/16 08:25 Dose: Not Given Multi-Ingred Cream/Lotion/Oil/Oint (Artificial Tears Ophth Oint) 1 applic OU Q4HR PRN PRN Reason: Dry Eye(s) Last Admin: 09/06/16 06:39 Dose: 1 applic Ondansetron HCl (Zofran) 4 mg IV Q8H PRN PRN Reason: N/V unrelieved by Reglan Pantoprazole (Protonix) 40 mg PO QDAY [facility] Last Admin: 09/07/16 09:51 Dose: 40 mg Simple Syrup (Simple Syrup) 15 ml FEEDTUBE PRN PRN PRN Reason: Hypoglycemia Last Admin: 09/06/16 13:00 Dose: 15 ml Simple Syrup (Simple Syrup) 30 ml FEEDTUBE PRN PRN PRN Reason: Hypoglycemia Last Admin: 09/06/16 15:00 Dose: 30 ml Sodium Bicarbonate (Sodium Bicarbonate) 325 mg FEEDTUBE PRN PRN PRN Reason: For Clogged Feeding Tube
--- NOTE | 2016-09-07 11:54 | Progress Note ---
Assessment and Plan 1. Acute respiratory failure 2. Type 2 diabetes mellitus 3. Sepsis 4. Decubitus ulcer Plan. Echocardiogram shows normal left ventricular size and function with left ventricular ejection fraction of 50-55%. Continue antibiotic treatment to wean off ventilator. Subjective Date of service: 09/07/16 Interval history: Intubated and sedated Objective Vital Signs Temp Pulse Pulse Pulse Resp Resp BP 09/07/16 11:24 59 L 122/58 09/07/16 11:00 57 L 25 H 128/55 09/07/16 10:45 57 L 26 H 119/56 09/07/16 10:30 56 L 28 H 119/51 09/07/16 10:15 67 29 H 128/59 09/07/16 10:00 59 L 28 H 115/56 09/07/16 09:49 50 L 29 H 09/07/16 09:45 58 L 28 H 132/60 09/07/16 09:30 57 L 28 H 119/55 09/07/16 09:15 60 30 H 133/45 09/07/16 09:00 59 L 30 H 133/68 09/07/16 08:45 61 28 H 136/61 09/07/16 08:43 71 29 H 09/07/16 08:33 52 L 147/67 09/07/16 08:30 64 29 H 147/67 09/07/16 08:15 57 L 29 H 147/67 09/07/16 08:00 50 L 58 L 26 H 140/63 09/07/16 07:45 66 29 H 148/66 09/07/16 07:41 97.5 F L 09/07/16 07:30 51 L 28 H 149/63 09/07/16 07:15 70 26 H 143/57 09/07/16 07:00 58 L 28 H 150/48 09/07/16 06:45 65 28 H 145/58 09/07/16 06:30 56 L 28 H 138/68 09/07/16 06:15 58 L 25 H 149/47 09/07/16 06:00 56 L 24 140/52 09/07/16 05:45 64 28 H 146/68 09/07/16 05:30 67 27 H 146/72 09/07/16 05:15 62 28 H 135/69 09/07/16 05:00 61 28 H 143/64 09/07/16 04:45 56 L 27 H 142/66 09/07/16 04:30 61 25 H 152/65 09/07/16 04:15 67 27 H 143/71 09/07/16 04:00 68 46 L 29 H 136/65 09/07/16 03:45 97.8 F 69 28 H 144/64 09/07/16 03:30 58 L 30 H 141/69 09/07/16 03:15 49 L 27 H 150/56 09/07/16 03:00 63 28 H 147/46 09/07/16 02:59 61 144/56 09/07/16 02:45 52 L 61 29 H 25 H 144/56 09/07/16 02:32 51 L 27 H 09/07/16 02:30 56 L 26 H 141/71 09/07/16 02:15 59 L 27 H 147/72 09/07/16 02:00 59 L 24 144/81 09/07/16 01:45 57 L 25 H 138/58 09/07/16 01:30 61 26 H 140/58 09/07/16 01:15 67 26 H 133/59 09/07/16 01:00 58 L 23 130/56 09/07/16 00:45 66 26 H 125/63 09/07/16 00:30 61 29 H 144/54 09/07/16 00:23 97.4 F L 09/07/16 00:15 50 L 24 132/54 09/07/16 00:03 52 L 25 H 135/48 09/07/16 00:00 54 L 62 24 135/48 09/06/16 23:58 60 27 H 120/55 09/06/16 23:45 65 25 H 120/55 09/06/16 23:30 55 L 22 128/49 09/06/16 23:15 65 25 H 128/56 09/06/16 23:00 57 L 25 H 128/47 09/06/16 22:54 58 L 114/55 09/06/16 22:45 63 28 H 114/55 09/06/16 22:30 68 26 H 121/53 09/06/16 22:15 67 27 H 124/55 09/06/16 22:00 62 28 H 121/54 09/06/16 21:45 68 28 H 123/56 09/06/16 21:30 70 5 L 126/63 09/06/16 21:15 68 9 L 128/63 09/06/16 21:00 64 27 H 123/63 09/06/16 20:45 60 30 H 127/61 09/06/16 20:30 66 29 H 130/65 09/06/16 20:15 67 10 L 135/65 09/06/16 20:00 72 56 L 26 H 142/66 09/06/16 19:48 97.5 F L 09/06/16 19:45 65 12 130/41 09/06/16 19:39 66 24 09/06/16 19:30 64 25 H 137/71 09/06/16 19:27 71 129/62 09/06/16 19:26 71 28 H 09/06/16 19:15 69 26 H 129/62 09/06/16 19:00 66 27 H 127/63 09/06/16 18:45 66 30 H 123/60 09/06/16 18:30 60 26 H 127/60 09/06/16 18:15 73 29 H 115/63 09/06/16 18:00 65 19 134/71 09/06/16 17:45 60 26 H 129/59 09/06/16 17:30 62 26 H 139/69 09/06/16 17:15 49 L 26 H 131/66 09/06/16 17:00 61 31 H 138/71 09/06/16 16:45 67 31 H 142/66 09/06/16 16:30 63 30 H 131/62 09/06/16 16:15 70 8 L 150/86 09/06/16 16:00 75 75 29 H 122/53 09/06/16 15:46 68 31 H 101/62 09/06/16 15:35 79 33 H 09/06/16 15:30 57 L 25 H 88/58 09/06/16 15:19 64 64 38 H 94/52 09/06/16 15:16 63 30 H 88/58 09/06/16 15:00 57 L 29 H 94/52 09/06/16 14:45 64 28 H 106/50 09/06/16 14:30 61 27 H 111/45 09/06/16 14:15 61 29 H 103/46 05/28/17 14:00 60 30 H 112/38 09/06/16 13:45 73 31 H 107/56 09/06/16 13:30 70 31 H 112/47 09/06/16 13:15 64 31 H 113/44 09/06/16 13:00 71 31 H 113/48 09/06/16 12:45 66 29 H 107/43 09/06/16 12:30 64 31 H 102/46 09/06/16 12:15 59 L 30 H 102/46 09/06/16 12:00 63 63 32 H 103/47 Pulse Ox 09/07/16 11:24 100 09/07/16 11:00 96 09/07/16 10:45 97 09/07/16 10:30 97 09/07/16 10:15 96 09/07/16 10:00 96 09/07/16 09:49 09/07/16 09:45 98 09/07/16 09:30 97 09/07/16 09:15 99 09/07/16 09:00 95 09/07/16 08:45 97 09/07/16 08:43 09/07/16 08:33 100 09/07/16 08:30 95 09/07/16 08:15 96 09/07/16 08:00 100 09/07/16 07:45 95 09/07/16 07:41 09/07/16 07:30 96 09/07/16 07:15 97 09/07/16 07:00 95 09/07/16 06:45 96 09/07/16 06:30 96 09/07/16 06:15 97 09/07/16 06:00 96 09/07/16 05:45 94 09/07/16 05:30 95 09/07/16 05:15 96 09/07/16 05:00 96 09/07/16 04:45 96 09/07/16 04:30 97 09/07/16 04:15 94 09/07/16 04:00 96 09/07/16 03:45 96 09/07/16 03:30 97 09/07/16 03:15 95 09/07/16 03:00 96 09/07/16 02:59 100 09/07/16 02:45 99 09/07/16 02:32 09/07/16 02:30 94 09/07/16 02:15 94 09/07/16 02:00 97 09/07/16 01:45 96 09/07/16 01:30 96 09/07/16 01:15 96 09/07/16 01:00 98 09/07/16 00:45 96 09/07/16 00:30 98 09/07/16 00:23 09/07/16 00:15 97 09/07/16 00:03 100 09/07/16 00:00 100 09/06/16 23:58 100 09/06/16 23:45 96 09/06/16 23:30 98 09/06/16 23:15 97 09/06/16 23:00 98 09/06/16 22:54 100 09/06/16 22:45 97 09/06/16 22:30 97 09/06/16 22:15 99 09/06/16 22:00 99 09/06/16 21:45 97 09/06/16 21:30 98 09/06/16 21:15 09/06/16 21:00 09/06/16 20:45 09/06/16 20:30 09/06/16 20:15 86 09/06/16 20:00 99 09/06/16 19:48 09/06/16 19:45 99 09/06/16 19:39 09/06/16 19:30 100 09/06/16 19:27 100 09/06/16 19:26 09/06/16 19:15 97 09/06/16 19:00 98 09/06/16 18:45 97 09/06/16 18:30 99 09/06/16 18:15 99 09/06/16 18:00 99 09/06/16 17:45 99 09/06/16 17:30 99 09/06/16 17:15 98 09/06/16 17:00 98 09/06/16 16:45 97 09/06/16 16:30 97 09/06/16 16:15 100 09/06/16 16:00 98 09/06/16 15:46 96 09/06/16 15:35 09/06/16 15:30 98 09/06/16 15:19 100 09/06/16 15:16 96 09/06/16 15:00 98 09/06/16 14:45 98 09/06/16 14:30 98 09/06/16 14:15 98 09/06/16 14:00 98 09/06/16 13:45 98 09/06/16 13:30 98 09/06/16 13:15 98 09/06/16 13:00 97 09/06/16 12:45 98 09/06/16 12:30 100 09/06/16 12:15 98 09/06/16 12:00 99 - Physical Examination General: Other (intubated on the vent) HEENT: Positive: PERRL, Normocephaly, Mucus Membranes Moist Neck: Positive: neck supple. Negative: JVD/HJR Cardiac: Positive: Regular Rate, PMI, Laterally Displaced Abdomen: Positive: Unremarkable, Soft Extremities: Absent: edema - Labs and Meds CBC 09/07/16 Range/Units 03:42 WBC 17.3 H (4.5-11.0) K/mm3 RBC 2.69 L (3.65-5.03) M/mm3 Hgb 7.6 L (10.1-14.3) gm/dl Hct 23.8 L (30.3-42.9) % Plt Count 137 L (140-440) K/mm3 Comprehensive Metabolic Panel 09/07/16 Range/Units 03:42 Sodium 142 (137-145) mmol/L Potassium 3.3 L (3.6-5.0) mmol/L Chloride 100.1 (98-107) mmol/L Carbon Dioxide 23 (22-30) mmol/L BUN 38 H (7-17) mg/dL Creatinine 1.6 H (0.7-1.2) mg/dL Glucose 201 H (65-100) mg/dL Calcium 7.4 L (8.4-10.2) mg/dL - Allied health notes Allied health notes reviewed: RT
--- NOTE | 2016-09-07 12:02 | Progress Note ---
Assessment and Plan (1) Respiratory failure Current Visit: Yes Status: Acute Qualifiers: Chronicity: C Respiratory failure complication: R Plan to address problem: - Currently on mechanical ventilatory support AC-VC 16/500/PEEP5/50% - VAP bundle addressed - continue to Wean FIO2 for O2 sats>92% - continue VTE prophylaxis (SCD's re: thrombocytopenia) - continue Stress ulcer prophylaxis (Pantoprazole) - sedation vacations while watching for any obvious seizure activity - continue Lung protective strategies (2) Shock Current Visit: Yes Status: Acute Plan to address problem: - Treated as septic shock secondary to HCAP - continue Wean vasopressor support for MAP>65 - glycemic control - completed AB's course; trending WBC - ID following - On steroid therapy for possible COPD with AE (but also possible relative adrenal insufficiency) (3) Acute on chronic diastolic (congestive) heart failure Current Visit: No Status: Acute Plan to address problem: - Documented EF 55% - gentle diuresis prn (will transduce CVP's to assist with volume resuscitation) - Continue to monitoring renal function and electrolyte profile closely - Monitor urine output, electrolyte profile (4) Altered mental status Current Visit: Yes Status: Acute Qualifiers: Altered mental status type: unspecified Coma depth: C Coma timing: C Qualified Code(s): R41.82 - Altered mental status, unspecified Plan to address problem: - Neurology following - on keppra - wean off ativan (5) Morbid obesity Current Visit: Yes Status: Acute Qualifiers: Obesity type: unspecified obesity type Qualified Code(s): E66.01 - Morbid ( severe) obesity due to excess calories - weight loss strategies once more stable - caloric intake per biofuels engineering manager at this point (6) Anemia Current Visit: Yes Status: Acute Qualifiers: Anemia type: unspecified type Iron deficiency anemia type: I Vitamin B12 deficiency anemia type: V Folate deficiency anemia type: F Bone marrow failure anemia type: B Hemolytic anemia type: H Other causes of anemia: O Qualified Code(s): D64.9 - Anemia, unspecified Plan to address problem: - no more coffe grouds noted - tube feeds resumed - continuing PPI therapy (7) Status epilepticus Current Visit: Yes Status: Acute Plan to address problem: - Continue AEDs - Neurology following - no obvious clinical seizure activity (8) Status epilepticus due to refractory complex partial seizures Current Visit: Yes Status: Acute Plan to address problem: - On lorazepam infusion, propofol - continue Keppra and Dilantin - Neurology following. - This could be secondary to an intracranial process, however unable to obtain neuro imaging, patient's weight exceeds allowable maximum (9) Discharge planning issues Current Visit: Yes Status: Acute Plan to address problem: - Continue current care. - need to determine appropriate power of banking attorney / legal healthcare veterans employment representative prior to any tentative withdrawal of care - discussed with relatives in room that a tracheostomy will be indicated if further care desired in light especially of altered mental status ..she remains critically ill on life sustaining interventions including MVS and at high risk for further deterioration including ....34' CCT Subjective Date of service: 09/07/16 Principal diagnosis: Acute Hypoxemic Hypercapnic Resp Failure; Severe Sepsis Interval history: Seen and examined at bedside; 24 hour events reviewed; nursing and respiratory care staff consulted; no adverse overnight events reported to me; resting peacefully in bed; sedated; Ativan going at 3mg/hr; mother and niece visiting; remains on full AC support; no emesis or overt aspiration; remains hypotensive and on levophed at 8mics/min with room to wean Objective Vital Signs - 12hr 09/07/16 09/07/16 09/07/16 00:03 00:15 00:23 Temperature 97.4 F L Pulse Rate 52 L 50 L Pulse Rate [ Anterior Bilateral Throughout] Pulse Rate [ From Monitor] Respiratory 25 H 24 Rate Respiratory Rate [Anterior Bilateral Throughout] Blood Pressure 135/48 132/54 O2 Sat by Pulse 100 97 Oximetry 09/07/16 09/07/16 09/07/16 00:30 00:45 01:00 Temperature Pulse Rate 61 66 58 L Pulse Rate [ Anterior Bilateral Throughout] Pulse Rate [ From Monitor] Respiratory 29 H 26 H 23 Rate Respiratory Rate [Anterior Bilateral Throughout] Blood Pressure 144/54 125/63 130/56 O2 Sat by Pulse 98 96 98 Oximetry 09/07/16 09/07/16 09/07/16 01:15 01:30 01:45 Temperature Pulse Rate 67 61 57 L Pulse Rate [ Anterior Bilateral Throughout] Pulse Rate [ From Monitor] Respiratory 26 H 26 H 25 H Rate Respiratory Rate [Anterior Bilateral Throughout] Blood Pressure 133/59 140/58 138/58 O2 Sat by Pulse 96 96 96 Oximetry 09/07/16 09/07/16 09/07/16 02:00 02:15 02:30 Temperature Pulse Rate 59 L 59 L 56 L Pulse Rate [ Anterior Bilateral Throughout] Pulse Rate [ From Monitor] Respiratory 24 27 H 26 H Rate Respiratory Rate [Anterior Bilateral Throughout] Blood Pressure 144/81 147/72 141/71 O2 Sat by Pulse 97 94 94 Oximetry 09/07/16 09/07/16 09/07/16 02:32 02:45 02:59 Temperature Pulse Rate 52 L 61 Pulse Rate [ 51 L 61 Anterior Bilateral Throughout] Pulse Rate [ From Monitor] Respiratory 29 H Rate Respiratory 27 H 25 H Rate [Anterior Bilateral Throughout] Blood Pressure 144/56 144/56 O2 Sat by Pulse 99 100 Oximetry 09/07/16 09/07/16 09/07/16 03:00 03:15 03:30 Temperature Pulse Rate 63 49 L 58 L Pulse Rate [ Anterior Bilateral Throughout] Pulse Rate [ From Monitor] Respiratory 28 H 27 H 30 H Rate Respiratory Rate [Anterior Bilateral Throughout] Blood Pressure 147/46 150/56 141/69 O2 Sat by Pulse 96 95 97 Oximetry 09/07/16 09/07/16 09/07/16 03:45 04:00 04:15 Temperature 97.8 F Pulse Rate 69 68 67 Pulse Rate [ Anterior Bilateral Throughout] Pulse Rate [ 46 L From Monitor] Respiratory 28 H 29 H 27 H Rate Respiratory Rate [Anterior Bilateral Throughout] Blood Pressure 144/64 136/65 143/71 O2 Sat by Pulse 96 96 94 Oximetry 09/07/16 09/07/16 09/07/16 04:30 04:45 05:00 Temperature Pulse Rate 61 56 L 61 Pulse Rate [ Anterior Bilateral Throughout] Pulse Rate [ From Monitor] Respiratory 25 H 27 H 28 H Rate Respiratory Rate [Anterior Bilateral Throughout] Blood Pressure 152/65 142/66 143/64 O2 Sat by Pulse 97 96 96 Oximetry 09/07/16 09/07/16 09/07/16 05:15 05:30 05:45 Temperature Pulse Rate 62 67 64 Pulse Rate [ Anterior Bilateral Throughout] Pulse Rate [ From Monitor] Respiratory 28 H 27 H 28 H Rate Respiratory Rate [Anterior Bilateral Throughout] Blood Pressure 135/69 146/72 146/68 O2 Sat by Pulse 96 95 94 Oximetry 09/07/16 09/07/16 09/07/16 06:00 06:15 06:30 Temperature Pulse Rate 56 L 58 L 56 L Pulse Rate [ Anterior Bilateral Throughout] Pulse Rate [ From Monitor] Respiratory 24 25 H 28 H Rate Respiratory Rate [Anterior Bilateral Throughout] Blood Pressure 140/52 149/47 138/68 O2 Sat by Pulse 96 97 96 Oximetry 09/07/16 09/07/16 09/07/16 06:45 07:00 07:15 Temperature Pulse Rate 65 58 L 70 Pulse Rate [ Anterior Bilateral Throughout] Pulse Rate [ From Monitor] Respiratory 28 H 28 H 26 H Rate Respiratory Rate [Anterior Bilateral Throughout] Blood Pressure 145/58 150/48 143/57 O2 Sat by Pulse 96 95 97 Oximetry 09/07/16 09/07/16 09/07/16 07:30 07:41 07:45 Temperature 97.5 F L Pulse Rate 51 L 66 Pulse Rate [ Anterior Bilateral Throughout] Pulse Rate [ From Monitor] Respiratory 28 H 29 H Rate Respiratory Rate [Anterior Bilateral Throughout] Blood Pressure 149/63 148/66 O2 Sat by Pulse 96 95 Oximetry 09/07/16 09/07/16 09/07/16 08:00 08:15 08:30 Temperature Pulse Rate 50 L 57 L 64 Pulse Rate [ Anterior Bilateral Throughout] Pulse Rate [ 58 L From Monitor] Respiratory 26 H 29 H 29 H Rate Respiratory Rate [Anterior Bilateral Throughout] Blood Pressure 140/63 147/67 147/67 O2 Sat by Pulse 100 96 95 Oximetry 09/07/16 09/07/16 09/07/16 08:33 08:43 08:45 Temperature Pulse Rate 52 L 61 Pulse Rate [ 71 Anterior Bilateral Throughout] Pulse Rate [ From Monitor] Respiratory 28 H Rate Respiratory 29 H Rate [Anterior Bilateral Throughout] Blood Pressure 147/67 136/61 O2 Sat by Pulse 100 97 Oximetry 09/07/16 09/07/16 09/07/16 09:00 09:15 09:30 Temperature Pulse Rate 59 L 60 57 L Pulse Rate [ Anterior Bilateral Throughout] Pulse Rate [ From Monitor] Respiratory 30 H 30 H 28 H Rate Respiratory Rate [Anterior Bilateral Throughout] Blood Pressure 133/68 133/45 119/55 O2 Sat by Pulse 95 99 97 Oximetry 09/07/16 09/07/16 09/07/16 09:45 09:49 10:00 Temperature Pulse Rate 58 L 59 L Pulse Rate [ 50 L Anterior Bilateral Throughout] Pulse Rate [ From Monitor] Respiratory 28 H 28 H Rate Respiratory 29 H Rate [Anterior Bilateral Throughout] Blood Pressure 132/60 115/56 O2 Sat by Pulse 98 96 Oximetry 09/07/16 09/07/16 09/07/16 10:15 10:30 10:45 Temperature Pulse Rate 67 56 L 57 L Pulse Rate [ Anterior Bilateral Throughout] Pulse Rate [ From Monitor] Respiratory 29 H 28 H 26 H Rate Respiratory Rate [Anterior Bilateral Throughout] Blood Pressure 128/59 119/51 119/56 O2 Sat by Pulse 96 97 97 Oximetry 09/07/16 09/07/16 11:00 11:24 Temperature Pulse Rate 57 L 59 L Pulse Rate [ Anterior Bilateral Throughout] Pulse Rate [ From Monitor] Respiratory 25 H Rate Respiratory Rate [Anterior Bilateral Throughout] Blood Pressure 128/55 122/58 O2 Sat by Pulse 96 100 Oximetry Constitutional: no acute distress, other (sedated) Eyes: non-icteric ENT: oropharynx moist Neck: supple, no lymphadenopathy Effort: mildly labored Ascultation: Bilateral: clear, diminished breath sounds (bases) Cardiovascular: regular rate and rhythm Gastrointestinal: hypoactive bowel sounds, soft, non-tender, non-distended Integumentary: normal Extremities: no cyanosis, pink and warm, pulses normal, no ischemia or petechiae , edema (trace) Neurologic: unable to assess, other (sedated; status epilepticus prior) Psychiatric: other (sedated) CBC and BMP: 09/07/16 03:42 09/07/16 03:42 ABG, PT/INR, D-dimer: ABG POC ABG pH 7.226 (7.35-7.45) L 09/05/16 05:09 POC ABG pCO2 61.6 (35-45) H 09/05/16 05:09 POC ABG pO2 68 (80-105) L 09/05/16 05:09 POC ABG HCO3 25.6 09/05/16 05:09 POC ABG Total CO2 27 09/05/16 05:09 POC ABG O2 Sat 89 09/05/16 05:09 PT/INR, D-dimer PT 16.4 Sec. (12.2-14.9) H 09/06/16 03:30 INR 1.33 (0.87-1.13) H 09/06/16 03:30 Abnormal lab findings: Abnormal Labs 05/20/17 05/21/17 05/21/17 21:59 00:16 05:39 WBC RBC Hgb Hct MCH MCHC RDW Plt Count Seg Neutrophils % Seg Neuts % (Manual) Nucleated RBC % Seg Neutrophils # Seg Neutrophils # Man PT INR POC ABG pH POC ABG pCO2 POC ABG pO2 Sodium Potassium Chloride Carbon Dioxide BUN Creatinine Glucose POC Glucose 106 H 128 H Lactic Acid Calcium Total Bilirubin AST Alkaline Phosphatase Ammonia Troponin T C-Reactive Protein Total Protein Albumin Prealbumin 0.120 L Crossmatch 08/30/16 08/30/16 08/30/16 10:30 10:30 11:12 WBC 11.1 H RBC 3.16 L Hgb 8.7 L Hct 29.9 L MCH MCHC 29 L RDW 25.0 H Plt Count Seg Neutrophils % 78.6 H Seg Neuts % (Manual) Nucleated RBC % Seg Neutrophils # 8.7 H Seg Neutrophils # Man PT INR POC ABG pH POC ABG pCO2 POC ABG pO2 Sodium 135 L Potassium Chloride Carbon Dioxide 20 L BUN Creatinine 1.5 H Glucose 148 H POC Glucose 142 H Lactic Acid Calcium 7.2 L Total Bilirubin 1.30 H AST 143 H Alkaline Phosphatase 392 H Ammonia Troponin T C-Reactive Protein Total Protein 6.1 L Albumin 1.2 L Prealbumin Crossmatch 08/30/16 08/30/16 08/30/16 17:41 18:03 18:18 WBC RBC Hgb Hct MCH MCHC RDW Plt Count Seg Neutrophils % Seg Neuts % (Manual) Nucleated RBC % Seg Neutrophils # Seg Neutrophils # Man PT INR POC ABG pH 7.316 L POC ABG pCO2 POC ABG pO2 44 L 59 L Sodium Potassium Chloride Carbon Dioxide BUN Creatinine Glucose POC Glucose 150 H Lactic Acid Calcium Total Bilirubin AST Alkaline Phosphatase Ammonia Troponin T C-Reactive Protein Total Protein Albumin Prealbumin Crossmatch 08/30/16 08/30/16 08/31/16 22:20 22:20 00:11 WBC RBC Hgb Hct MCH MCHC RDW Plt Count Seg Neutrophils % Seg Neuts % (Manual) Nucleated RBC % Seg Neutrophils # Seg Neutrophils # Man PT INR POC ABG pH POC ABG pCO2 POC ABG pO2 Sodium Potassium Chloride Carbon Dioxide BUN Creatinine Glucose POC Glucose 133 H Lactic Acid 2.30 H* Calcium Total Bilirubin AST Alkaline Phosphatase Ammonia Troponin T C-Reactive Protein 10.20 H Total Protein Albumin Prealbumin Crossmatch 08/31/16 08/31/1608/31/17 04:20 04:20 04:20 WBC 18.3 H RBC 3.19 L Hgb 8.8 L Hct 30.0 L MCH 27 L MCHC 29 L RDW 23.9 H Plt Count Seg Neutrophils % Seg Neuts % (Manual) Nucleated RBC % Seg Neutrophils # Seg Neutrophils # Cristian PT 16.8 H INR 1.37 H POC ABG pH POC ABG pCO2 POC ABG pO2 Sodium 136 L Potassium Chloride Carbon Dioxide 19 L BUN Creatinine 1.5 H Glucose 125 H POC Glucose Lactic Acid Calcium 7.0 L Total Bilirubin 1.50 H AST 131 H Alkaline Phosphatase 431 H Ammonia Troponin T C-Reactive Protein Total Protein 6.2 L Albumin 1.2 L Prealbumin Crossmatch 08/31/16 08/31/16 08/31/16 04:20 05:22 05:24 WBC RBC Hgb Hct MCH MCHC RDW Plt Count Seg Neutrophils % Seg Neuts % (Manual) Nucleated RBC % Seg Neutrophils # Seg Neutrophils # Cristian PT INR POC ABG pH POC ABG pCO2 POC ABG pO2 142 H Sodium Potassium Chloride Carbon Dioxide BUN Creatinine Glucose POC Glucose 123 H Lactic Acid Calcium Total Bilirubin AST Alkaline Phosphatase Ammonia 70.0 H Troponin T C-Reactive Protein Total Protein Albumin Prealbumin Crossmatch 08/31/16 08/31/16 08/31/16 12:10 15:45 17:38 WBC RBC Hgb Hct MCH MCHC RDW Plt Count Seg Neutrophils % Seg Neuts % (Manual) Nucleated RBC % Seg Neutrophils # Seg Neutrophils # Cristian PT INR POC ABG pH POC ABG pCO2 POC ABG pO2 Sodium 136 L Potassium Chloride Carbon Dioxide 21 L BUN Creatinine 1.5 H Glucose 160 H POC Glucose 147 H 151 H Lactic Acid Calcium 6.9 L Total Bilirubin AST Alkaline Phosphatase Ammonia Troponin T 0.109 H* D C-Reactive Protein Total Protein Albumin Prealbumin Crossmatch 09/01/16 09/01/16 09/01/16 00:09 04:00 04:00 WBC 14.8 H RBC 2.89 L Hgb 7.8 L Hct 27.2 L MCH 27 L MCHC 29 L RDW 24.4 H Plt Count Seg Neutrophils % Seg Neuts % (Manual) Nucleated RBC % Seg Neutrophils # Seg Neutrophils # Cristian PT 18.2 H INR 1.51 H POC ABG pH POC ABG pCO2 POC ABG pO2 Sodium Potassium Chloride Carbon Dioxide BUN Creatinine Glucose POC Glucose 192 H Lactic Acid Calcium Total Bilirubin AST Alkaline Phosphatase Ammonia Troponin T C-Reactive Protein Total Protein Albumin Prealbumin Crossmatch 09/01/16 09/01/16 09/01/16 04:00 05:28 11:28 WBC RBC Hgb Hct MCH MCHC RDW Plt Count Seg Neutrophils % Seg Neuts % (Manual) Nucleated RBC % Seg Neutrophils # Seg Neutrophils # Man PT INR POC ABG pH POC ABG pCO2 POC ABG pO2 Sodium Potassium Chloride Carbon Dioxide 20 L BUN Creatinine 1.6 H Glucose 183 H POC Glucose 189 H 207 H Lactic Acid Calcium 6.9 L Total Bilirubin 1.30 H AST 138 H Alkaline Phosphatase 520 H Ammonia Troponin T C-Reactive Protein Total Protein 6.1 L Albumin 1.2 L Prealbumin Crossmatch 09/01/16 09/01/16 09/02/16 16:56 23:49 05:00 WBC RBC Hgb Hct MCH MCHC RDW Plt Count Seg Neutrophils % Seg Neuts % (Manual) Nucleated RBC % Seg Neutrophils # Seg Neutrophils # Man PT 18.0 H INR 1.49 H POC ABG pH POC ABG pCO2 POC ABG pO2 Sodium Potassium Chloride Carbon Dioxide BUN Creatinine Glucose POC Glucose 250 H 307 H Lactic Acid Calcium Total Bilirubin AST Alkaline Phosphatase Ammonia Troponin T C-Reactive Protein Total Protein Albumin Prealbumin Crossmatch 09/02/16 09/02/16 09/02/16 05:00 05:00 05:45 WBC 12.3 H RBC 2.57 L Hgb 7.1 L Hct 23.4 L MCH MCHC RDW 23.9 H Plt Count Seg Neutrophils % Seg Neuts % (Manual) 72.0 H Nucleated RBC % 25.0 H Seg Neutrophils # Seg Neutrophils # Man 8.9 H PT INR POC ABG pH POC ABG pCO2 POC ABG pO2 Sodium Potassium Chloride Carbon Dioxide BUN Creatinine 1.4 H Glucose 299 H POC Glucose 327 H Lactic Acid Calcium 7.0 L Total Bilirubin AST Alkaline Phosphatase Ammonia Troponin T C-Reactive Protein Total Protein Albumin Prealbumin Crossmatch 09/02/16 09/02/16 09/02/16 12:22 17:22 23:24 WBC RBC Hgb Hct MCH MCHC RDW Plt Count Seg Neutrophils % Seg Neuts % (Manual) Nucleated RBC % Seg Neutrophils # Seg Neutrophils # Man PT INR POC ABG pH POC ABG pCO2 POC ABG pO2 Sodium Potassium Chloride Carbon Dioxide BUN Creatinine Glucose POC Glucose 310 H 358 H 286 H Lactic Acid Calcium Total Bilirubin AST Alkaline Phosphatase Ammonia Troponin T C-Reactive Protein Total Protein Albumin Prealbumin Crossmatch 09/03/16 09/03/16 09/03/16 04:10 04:10 04:10 WBC 11.8 H RBC 2.29 L Hgb 6.1 L Hct 21.0 L MCH 27 L MCHC 29 L RDW 24.1 H Plt Count Seg Neutrophils % Seg Neuts % (Manual) Nucleated RBC % Seg Neutrophils # Seg Neutrophils # Man PT 17.6 H INR 1.45 H POC ABG pH POC ABG pCO2 POC ABG pO2 Sodium Potassium Chloride Carbon Dioxide BUN Creatinine 1.4 H Glucose 301 H POC Glucose Lactic Acid Calcium 7.0 L Total Bilirubin AST Alkaline Phosphatase Ammonia Troponin T C-Reactive Protein Total Protein Albumin Prealbumin Crossmatch 09/03/16 09/03/16 09/03/16 05:59 11:36 17:42 WBC RBC Hgb Hct MCH MCHC RDW Plt Count Seg Neutrophils % Seg Neuts % (Manual) Nucleated RBC % Seg Neutrophils # Seg Neutrophils # Man PT INR POC ABG pH POC ABG pCO2 POC ABG pO2 Sodium Potassium Chloride Carbon Dioxide BUN Creatinine Glucose POC Glucose 351 H 285 H 259 H Lactic Acid Calcium Total Bilirubin AST Alkaline Phosphatase Ammonia Troponin T C-Reactive Protein Total Protein Albumin Prealbumin Crossmatch 09/03/16 09/04/16 09/04/16 23:00 04:27 05:36 WBC RBC Hgb Hct MCH MCHC RDW Plt Count Seg Neutrophils % Seg Neuts % (Manual) Nucleated RBC % Seg Neutrophils # Seg Neutrophils # Cristian PT INR POC ABG pH 7.544 H POC ABG pCO2 30.8 L POC ABG pO2 78 L Sodium Potassium Chloride Carbon Dioxide BUN Creatinine Glucose POC Glucose 192 H 228 H Lactic Acid Calcium Total Bilirubin AST Alkaline Phosphatase Ammonia Troponin T C-Reactive Protein Total Protein Albumin Prealbumin Crossmatch 09/04/16 09/04/16 09/04/16 06:37 06:37 06:39 WBC 21.0 H RBC 2.22 L Hgb 6.0 L Hct 20.1 L MCH 27 L MCHC RDW 24.3 H Plt Count Seg Neutrophils % Seg Neuts % (Manual) Nucleated RBC % Seg Neutrophils # Seg Neutrophils # Man PT 16.8 H INR 1.37 H POC ABG pH POC ABG pCO2 POC ABG pO2 Sodium Potassium Chloride Carbon Dioxide BUN Creatinine 1.4 H Glucose 201 H POC Glucose Lactic Acid Calcium 7.1 L Total Bilirubin AST Alkaline Phosphatase Ammonia Troponin T C-Reactive Protein Total Protein Albumin Prealbumin Crossmatch 09/04/16 09/04/16 09/04/16 12:14 15:47 17:41 WBC RBC Hgb Hct MCH MCHC RDW Plt Count Seg Neutrophils % Seg Neuts % (Manual) Nucleated RBC % Seg Neutrophils # Seg Neutrophils # Man PT INR POC ABG pH POC ABG pCO2 POC ABG pO2 Sodium Potassium Chloride Carbon Dioxide BUN Creatinine Glucose POC Glucose 176 H 218 H Lactic Acid Calcium Total Bilirubin AST Alkaline Phosphatase Ammonia Troponin T C-Reactive Protein Total Protein Albumin Prealbumin Crossmatch See Detail 09/04/16 09/04/16 09/05/16 21:59 23:48 04:30 WBC RBC Hgb Hct MCH MCHC RDW Plt Count Seg Neutrophils % Seg Neuts % (Manual) Nucleated RBC % Seg Neutrophils # Seg Neutrophils # Man PT 17.2 H INR 1.41 H POC ABG pH POC ABG pCO2 POC ABG pO2 Sodium Potassium Chloride Carbon Dioxide BUN Creatinine Glucose POC Glucose 170 H 121 H Lactic Acid Calcium Total Bilirubin AST Alkaline Phosphatase Ammonia Troponin T C-Reactive Protein Total Protein Albumin Prealbumin Crossmatch 09/05/16 09/05/16 09/05/16 04:30 04:30 05:09 WBC 31.9 H RBC 3.11 L Hgb 8.5 L Hct 28.3 L D MCH 27 L MCHC RDW 21.0 H Plt Count Seg Neutrophils % Seg Neuts % (Manual) Nucleated RBC % Seg Neutrophils # Seg Neutrophils # Man PT INR POC ABG pH 7.226 L POC ABG pCO2 61.6 H POC ABG pO2 68 L Sodium 134 L Potassium 5.5 H Chloride 96.6 L Carbon Dioxide BUN 23 H Creatinine 1.6 H Glucose 116 H POC Glucose Lactic Acid Calcium 7.1 L Total Bilirubin AST Alkaline Phosphatase Ammonia Troponin T C-Reactive Protein Total Protein Albumin Prealbumin Crossmatch 09/05/16 09/05/16 09/05/16 05:33 12:08 17:32 WBC RBC Hgb Hct MCH MCHC RDW Plt Count Seg Neutrophils % Seg Neuts % (Manual) Nucleated RBC % Seg Neutrophils # Seg Neutrophils # Man PT INR POC ABG pH POC ABG pCO2 POC ABG pO2 Sodium Potassium Chloride Carbon Dioxide BUN Creatinine Glucose POC Glucose 114 H 147 H 174 H Lactic Acid Calcium Total Bilirubin AST Alkaline Phosphatase Ammonia Troponin T C-Reactive Protein Total Protein Albumin Prealbumin Crossmatch 09/06/16 09/06/16 09/06/16 03:30 03:30 03:30 WBC 25.4 H RBC 2.57 L Hgb 7.2 L Hct 22.8 L MCH MCHC RDW 20.9 H Plt Count 138 L Seg Neutrophils % Seg Neuts % (Manual) Nucleated RBC % Seg Neutrophils # Seg Neutrophils # Man PT 16.4 H INR 1.33 H POC ABG pH POC ABG pCO2 POC ABG pO2 Sodium Potassium Chloride Carbon Dioxide BUN 36 H Creatinine 1.9 H Glucose POC Glucose Lactic Acid Calcium 7.2 L Total Bilirubin AST Alkaline Phosphatase Ammonia Troponin T C-Reactive Protein Total Protein Albumin Prealbumin Crossmatch 09/06/16 09/06/16 09/06/16 11:07 12:03 14:44 WBC RBC Hgb Hct MCH MCHC RDW Plt Count Seg Neutrophils % Seg Neuts % (Manual) Nucleated RBC % Seg Neutrophils # Seg Neutrophils # Man PT INR POC ABG pH POC ABG pCO2 POC ABG pO2 Sodium Potassium Chloride Carbon Dioxide BUN Creatinine Glucose POC Glucose 61 L 55 L Lactic Acid Calcium Total Bilirubin AST Alkaline Phosphatase Ammonia Troponin T 0.080 H C-Reactive Protein Total Protein Albumin Prealbumin Crossmatch 09/06/16 09/06/16 09/07/16 21:05 23:53 03:36 WBC RBC Hgb Hct MCH MCHC RDW Plt Count Seg Neutrophils % Seg Neuts % (Manual) Nucleated RBC % Seg Neutrophils # Seg Neutrophils # Man PT INR POC ABG pH POC ABG pCO2 POC ABG pO2 Sodium Potassium Chloride Carbon Dioxide BUN Creatinine Glucose POC Glucose 140 H 178 H 243 H Lactic Acid Calcium Total Bilirubin AST Alkaline Phosphatase Ammonia Troponin T C-Reactive Protein Total Protein Albumin Prealbumin Crossmatch 09/07/16 09/07/16 09/07/16 03:42 03:42 05:04 WBC 17.3 H RBC 2.69 L Hgb 7.6 L Hct 23.8 L MCH MCHC RDW 20.5 H Plt Count 137 L Seg Neutrophils % Seg Neuts % (Manual) Nucleated RBC % Seg Neutrophils # Seg Neutrophils # Man PT INR POC ABG pH POC ABG pCO2 POC ABG pO2 Sodium Potassium 3.3 L Chloride Carbon Dioxide BUN 38 H Creatinine 1.6 H Glucose 201 H POC Glucose 241 H Lactic Acid Calcium 7.4 L Total Bilirubin AST Alkaline Phosphatase Ammonia Troponin T C-Reactive Protein Total Protein Albumin Prealbumin Crossmatch Chest x-ray: image reviewed Allied health notes reviewed: RT
[2016-09-07] MEDS ORDERED: NACL 0.9% 500 ML 500 ML ONE (13:36)
[2016-09-07] MEDS ORDERED: NACL 0.9% 500 ML IV ONE (13:47)
[2016-09-07] MEDS: ATIVAN 100 MG in NACL 0.9% 50 ML, VIAFLEX EMPTY CONTAINER 0 ML IV SCH (14:02)
[2016-09-08] MEDS: DUONEB 0.5 MG-3 MG/3 ML SOLN IH SCH ×4 (02:23→20:16)
[2016-09-08 05:22] LABS: ISTAT Base Excess 5; ISTAT PH 7.458 (7.35-7.45); ISTAT PO2 177 (80-105); ISTAT SO2 100; ISTAT TCO2 30
[2016-09-08 05:35] LABS: Hematocrit 21.5 % (30.3-42.9); Hemoglobin 6.9 gm/dl (10.1-14.3); Mean Corpuscular HGB Conc 32 % (30-34); Mean Corpuscular Hemoglobin 28 pg (28-32); Mean Corpuscular Volume 88 fl (79-97); Platelet Count 119 K/mm3 (140-440); Red Blood Count 2.43 M/mm3 (3.65-5.03); White Blood Count 18.4 K/mm3 (4.5-11.0)
[2016-09-08 05:39] LABS: Red Cell Distribution Width 20.5 % (13.2-15.2)
[2016-09-08 05:56] LABS: BUN/Creatinine Ratio 28.46; Calcium 7.1 mg/dL (8.4-10.2); Chloride 100.1 mmol/L (98-107); Potassium 3.5 mmol/L (3.6-5.0)
[2016-09-08] MEDS: NOVOLOG SUB-Q SCH ×5 (06:19→23:33)
[2016-09-08] MEDS: ZAROXOLYN PO SCH (06:21)
[2016-09-08] MEDS: D10W 1,000 ML IV SCH ×3 (06:25→23:25)
--- NOTE | 2016-09-08 08:50 | Progress Note ---
Assessment and Plan - Patient Problems (1) RORY (acute kidney injury) Current Visit: No Status: Acute Plan to address problem: Acute Kidney Injury is hemodynamically mediated in the setting of hypotension / shock. Creatinine level is better today. Remain on Levophed. Continue current treatment. (2) Hyperkalemia Current Visit: No Status: Acute Plan to address problem: Improved with Kayexalate. Monitor K levels. (3) Shock Current Visit: Yes Status: Acute Plan to address problem: On Levophed. (4) Respiratory failure Current Visit: Yes Status: Acute Qualifiers: Chronicity: C Respiratory failure complication: R Plan to address problem: On vent. (5) Altered mental status Current Visit: Yes Status: Acute Qualifiers: Altered mental status type: unspecified Coma depth: C Coma timing: C Qualified Code(s): R41.82 - Altered mental status, unspecified (6) Anemia Current Visit: Yes Status: Acute Qualifiers: Anemia type: unspecified type Iron deficiency anemia type: I Vitamin B12 deficiency anemia type: V Folate deficiency anemia type: F Bone marrow failure anemia type: B Hemolytic anemia type: H Other causes of anemia: O Qualified Code(s): D64.9 - Anemia, unspecified Plan to address problem: S/p PRBC. Subjective Date of service: 09/08/16 Principal diagnosis: Acute Hypoxemic Hypercapnic Resp Failure; Severe Sepsis Interval history: Patient remain on the vent. Objective - Vital Signs Vital signs: Vital Signs - 12hr 09/07/16 09/07/16 09/07/16 21:00 21:15 21:30 Temperature Pulse Rate 63 56 L 78 Pulse Rate [ Anterior Bilateral Throughout] Pulse Rate [ From Monitor] Respiratory 27 H 26 H 25 H Rate Respiratory Rate [Anterior Bilateral Throughout] Blood Pressure 110/44 104/43 107/51 O2 Sat by Pulse 100 99 98 Oximetry 09/07/16 09/07/16 09/07/16 21:45 22:00 22:15 Temperature Pulse Rate 63 65 60 Pulse Rate [ Anterior Bilateral Throughout] Pulse Rate [ From Monitor] Respiratory 28 H 22 29 H Rate Respiratory Rate [Anterior Bilateral Throughout] Blood Pressure 104/41 111/46 105/44 O2 Sat by Pulse 100 100 100 Oximetry 09/07/16 09/07/16 09/07/16 22:30 22:45 22:49 Temperature Pulse Rate 75 69 69 Pulse Rate [ Anterior Bilateral Throughout] Pulse Rate [ From Monitor] Respiratory 29 H 25 H Rate Respiratory Rate [Anterior Bilateral Throughout] Blood Pressure 101/41 111/42 111/42 O2 Sat by Pulse 100 98 98 Oximetry 09/07/16 09/07/16 09/07/16 23:00 23:15 23:30 Temperature Pulse Rate 69 70 63 Pulse Rate [ Anterior Bilateral Throughout] Pulse Rate [ From Monitor] Respiratory 40 H 32 H 25 H Rate Respiratory Rate [Anterior Bilateral Throughout] Blood Pressure 112/45 106/42 116/43 O2 Sat by Pulse 99 97 97 Oximetry 09/07/16 09/07/16 09/08/16 23:38 23:45 00:00 Temperature 98.8 F Pulse Rate 74 67 63 Pulse Rate [ Anterior Bilateral Throughout] Pulse Rate [ 61 From Monitor] Respiratory 28 H 29 H 24 Rate Respiratory Rate [Anterior Bilateral Throughout] Blood Pressure 116/43 105/49 126/44 O2 Sat by Pulse 100 97 98 Oximetry 09/08/16 09/08/16 09/08/16 00:16 00:30 00:45 Temperature Pulse Rate 54 L 68 60 Pulse Rate [ Anterior Bilateral Throughout] Pulse Rate [ From Monitor] Respiratory 18 27 H 19 Rate Respiratory Rate [Anterior Bilateral Throughout] Blood Pressure 110/44 109/47 108/45 O2 Sat by Pulse 100 100 99 Oximetry 09/08/16 09/08/16 09/08/16 01:00 01:15 01:30 Temperature Pulse Rate 54 L 65 58 L Pulse Rate [ Anterior Bilateral Throughout] Pulse Rate [ From Monitor] Respiratory 25 H 21 23 Rate Respiratory Rate [Anterior Bilateral Throughout] Blood Pressure 113/43 110/43 115/43 O2 Sat by Pulse 98 100 100 Oximetry 09/08/16 09/08/16 09/08/16 01:45 02:00 02:15 Temperature Pulse Rate 57 L 68 69 Pulse Rate [ Anterior Bilateral Throughout] Pulse Rate [ From Monitor] Respiratory 25 H 25 H 28 H Rate Respiratory Rate [Anterior Bilateral Throughout] Blood Pressure 117/37 96/34 95/37 O2 Sat by Pulse 100 98 99 Oximetry 09/08/16 09/08/16 09/08/16 02:23 02:30 02:43 Temperature Pulse Rate 65 Pulse Rate [ 59 L 66 Anterior Bilateral Throughout] Pulse Rate [ From Monitor] Respiratory 29 H Rate Respiratory 28 H 18 Rate [Anterior Bilateral Throughout] Blood Pressure 97/44 O2 Sat by Pulse 97 Oximetry 09/08/16 09/08/16 09/08/16 02:45 03:00 03:15 Temperature Pulse Rate 73 78 57 L Pulse Rate [ Anterior Bilateral Throughout] Pulse Rate [ From Monitor] Respiratory 24 28 H 26 H Rate Respiratory Rate [Anterior Bilateral Throughout] Blood Pressure 102/39 93/40 108/33 O2 Sat by Pulse 98 98 99 Oximetry 09/08/16 09/08/16 09/08/16 03:30 03:39 03:45 Temperature 98.4 F Pulse Rate 74 62 Pulse Rate [ Anterior Bilateral Throughout] Pulse Rate [ From Monitor] Respiratory 21 27 H Rate Respiratory Rate [Anterior Bilateral Throughout] Blood Pressure 106/46 99/51 O2 Sat by Pulse 97 97 Oximetry 09/08/16 09/08/16 09/08/16 04:00 04:04 04:15 Temperature Pulse Rate 67 61 Pulse Rate [ Anterior Bilateral Throughout] Pulse Rate [ From Monitor] Respiratory 19 Rate Respiratory Rate [Anterior Bilateral Throughout] Blood Pressure 106/49 99/51 120/42 O2 Sat by Pulse 96 100 99 Oximetry 09/08/16 09/08/16 09/08/16 04:30 04:45 05:00 Temperature Pulse Rate 46 L 61 53 L Pulse Rate [ Anterior Bilateral Throughout] Pulse Rate [ From Monitor] Respiratory 13 25 H 22 Rate Respiratory Rate [Anterior Bilateral Throughout] Blood Pressure 106/49 117/45 107/44 O2 Sat by Pulse 100 100 98 Oximetry 09/08/16 09/08/16 09/08/16 05:15 05:30 05:45 Temperature Pulse Rate 58 L 67 56 L Pulse Rate [ Anterior Bilateral Throughout] Pulse Rate [ From Monitor] Respiratory 26 H 27 H 26 H Rate Respiratory Rate [Anterior Bilateral Throughout] Blood Pressure 111/45 108/51 113/32 O2 Sat by Pulse 99 97 100 Oximetry 09/08/16 09/08/16 09/08/16 06:00 06:15 06:30 Temperature Pulse Rate 61 63 63 Pulse Rate [ Anterior Bilateral Throughout] Pulse Rate [ From Monitor] Respiratory 14 27 H 27 H Rate Respiratory Rate [Anterior Bilateral Throughout] Blood Pressure 107/41 106/46 110/48 O2 Sat by Pulse 99 99 96 Oximetry 09/08/16 09/08/16 09/08/16 06:45 07:00 07:15 Temperature Pulse Rate 66 58 L 61 Pulse Rate [ Anterior Bilateral Throughout] Pulse Rate [ From Monitor] Respiratory 12 24 27 H Rate Respiratory Rate [Anterior Bilateral Throughout] Blood Pressure 115/47 109/45 107/40 O2 Sat by Pulse 97 98 99 Oximetry 09/08/16 09/08/16 09/08/16 07:30 07:45 07:47 Temperature Pulse Rate 50 L 51 L Pulse Rate [ Anterior Bilateral Throughout] Pulse Rate [ 80 From Monitor] Respiratory 17 25 H 20 Rate Respiratory Rate [Anterior Bilateral Throughout] Blood Pressure 105/37 109/43 O2 Sat by Pulse 98 98 98 Oximetry 09/08/16 09/08/16 09/08/16 08:00 08:12 08:41 Temperature 97.4 F L Pulse Rate 59 L 59 L Pulse Rate [ 68 Anterior Bilateral Throughout] Pulse Rate [ From Monitor] Respiratory 20 Rate Respiratory 18 Rate [Anterior Bilateral Throughout] Blood Pressure 105/52 105/52 O2 Sat by Pulse 98 98 Oximetry - General Appearance General appearance: well-developed, well-nourished, appears stated age, intubated (FiO2 30%) EENT: ATNC, PERRL Neck: supple Respiratory: Present: Other (coarse breath sounds) Cardiology: irregular, S1S2, no murmurs Gastrointestinal: normoactive bowel sounds, obese Integumentary: no rash Neurologic: obtunded Musculoskeletal: other (2+ edema of both LEs) - Lab 09/08/16 04:00 09/08/16 04:00 Most recent lab results Calcium 7.1 mg/dL (8.4-10.2) L 09/08/16 04:00 Phosphorus 3.60 mg/dL (2.5-4.5) 08/29/16 21:59 Magnesium 1.70 mg/dL (1.7-2.3) 09/06/16 03:30
[2016-09-08] MEDS: KEPPRA PO SCH ×2 (09:10→22:03)
[2016-09-08] MEDS: KCL 20MEQ/100ML 20 MEQ/100 ML BAG IV SCH ×2 (09:10→10:05)
[2016-09-08] MEDS: PROTONIX PO SCH (09:11)
[2016-09-08] MEDS: FERROUS SULFATE PO SCH (09:11)
[2016-09-08] MEDS: LEVEMIR SUB-Q SCH (09:11)
[2016-09-08] MEDS: FOLVITE PO SCH (09:11)
--- NOTE | 2016-09-08 09:20 | XRay Report ---
Single view chest: Compared to 09/07/16. History: Followup of respiratory failure. Findings: Cardiomegaly. Stable support system. Pulmonary venous congestion. No consolidation or pleural effusion. No significant interval change. Impression: No significant interval change.
--- NOTE | 2016-09-08 10:13 | Progress Note ---
Assessment and Plan Patient is a 61-year-old morbid obese woman with a past medical history of congestive heart failure, severe protein calorie malnutrition (severe wasting bilateral taoist muscle, hypothenar muscle wasting) with BMI of 81.6, functional quadriplegia, type 2 diabetes mellitus, hypertension, multiple skin breakdown between legs and thighs who presented to the hospital via EMS with AMS. 2D echocardiogram with ejection fraction of 50-55%. During the past admission patient was recommended for placement but refused. On presentation to ED, patient was felt to be unable to maintain her airways and intubated the ER since 08/29/16. Pt's son wants pt to be DNR. Awaiting decision for withdrawal of care by family member Acute toxic metabolic encephalopathy Acute on chronic diastolic congestive heart failure: Cardiology is following, diuresis Acute on chronic respiratory failure, intubated Septic shock on Levaphed: Weaning attempts Hypercoagulable state Severe anemia s/p blood transfusion: Will be xfuse with 2 more unit as H/H is 6.9/21.5. monitor cbc Mitral stenosis Paroxysmal atrial fibrillation Non-ST elevated KS: Cardiology is following, conservative management Acute on chronic kidney disease likely secondary to vasomotor nephropathy-POA Transaminitis-elevated alkaline phosphatase and AST: continue to monitor Severe protein calorie malnutrition albumin 1.2 Morbid obesity BMI 81.6 Mulitple PRESSURE ULCERS-POA: consulted wound care uncontrolled dm: increase ssi and wean down iv steroids. restraints renewed Unable to get CT head due to weight issues Still very sick with high probability of demised is not in ICU. Awaitng DNR signature by adult son. Subjective Date of service: 09/08/16 Principal diagnosis: Acute Hypoxemic Hypercapnic Resp Failure; Severe Sepsis Interval history: still unresponsive Objective - Constitutional Vitals: Vital Signs - 12hr 09/07/16 09/07/16 09/07/16 22:15 22:30 22:45 Temperature Pulse Rate 60 75 69 Pulse Rate [ Anterior Bilateral Throughout] Pulse Rate [ From Monitor] Respiratory 29 H 29 H 25 H Rate Respiratory Rate [Anterior Bilateral Throughout] Blood Pressure 105/44 101/41 111/42 O2 Sat by Pulse 100 100 98 Oximetry 09/07/16 09/07/16 09/07/16 22:49 23:00 23:15 Temperature Pulse Rate 69 69 70 Pulse Rate [ Anterior Bilateral Throughout] Pulse Rate [ From Monitor] Respiratory 40 H 32 H Rate Respiratory Rate [Anterior Bilateral Throughout] Blood Pressure 111/42 112/45 106/42 O2 Sat by Pulse 98 99 97 Oximetry 09/07/16 09/07/16 09/07/16 23:30 23:38 23:45 Temperature 98.8 F Pulse Rate 63 74 67 Pulse Rate [ Anterior Bilateral Throughout] Pulse Rate [ From Monitor] Respiratory 25 H 28 H 29 H Rate Respiratory Rate [Anterior Bilateral Throughout] Blood Pressure 116/43 116/43 105/49 O2 Sat by Pulse 97 100 97 Oximetry 09/08/16 09/08/16 09/08/16 00:00 00:16 00:30 Temperature Pulse Rate 63 54 L 68 Pulse Rate [ Anterior Bilateral Throughout] Pulse Rate [ 61 From Monitor] Respiratory 24 18 27 H Rate Respiratory Rate [Anterior Bilateral Throughout] Blood Pressure 126/44 110/44 109/47 O2 Sat by Pulse 98 100 100 Oximetry 09/08/16 09/08/16 09/08/16 00:45 01:00 01:15 Temperature Pulse Rate 60 54 L 65 Pulse Rate [ Anterior Bilateral Throughout] Pulse Rate [ From Monitor] Respiratory 19 25 H 21 Rate Respiratory Rate [Anterior Bilateral Throughout] Blood Pressure 108/45 113/43 110/43 O2 Sat by Pulse 99 98 100 Oximetry 09/08/16 09/08/16 09/08/16 01:30 01:45 02:00 Temperature Pulse Rate 58 L 57 L 68 Pulse Rate [ Anterior Bilateral Throughout] Pulse Rate [ From Monitor] Respiratory 23 25 H 25 H Rate Respiratory Rate [Anterior Bilateral Throughout] Blood Pressure 115/43 117/37 96/34 O2 Sat by Pulse 100 100 98 Oximetry 09/08/16 09/08/16 09/08/16 02:15 02:23 02:30 Temperature Pulse Rate 69 65 Pulse Rate [ 59 L Anterior Bilateral Throughout] Pulse Rate [ From Monitor] Respiratory 28 H 29 H Rate Respiratory 28 H Rate [Anterior Bilateral Throughout] Blood Pressure 95/37 97/44 O2 Sat by Pulse 99 97 Oximetry 09/08/16 09/08/16 09/08/16 02:43 02:45 03:00 Temperature Pulse Rate 73 78 Pulse Rate [ 66 Anterior Bilateral Throughout] Pulse Rate [ From Monitor] Respiratory 24 28 H Rate Respiratory 18 Rate [Anterior Bilateral Throughout] Blood Pressure 102/39 93/40 O2 Sat by Pulse 98 98 Oximetry 0509/08/16 09/08/16 03:15 03:30 03:39 Temperature 98.4 F Pulse Rate 57 L 74 Pulse Rate [ Anterior Bilateral Throughout] Pulse Rate [ From Monitor] Respiratory 26 H 21 Rate Respiratory Rate [Anterior Bilateral Throughout] Blood Pressure 108/33 106/46 O2 Sat by Pulse 99 97 Oximetry 09/08/16 09/08/16 09/08/16 03:45 04:00 04:04 Temperature Pulse Rate 62 67 61 Pulse Rate [ Anterior Bilateral Throughout] Pulse Rate [ From Monitor] Respiratory 27 H 19 Rate Respiratory Rate [Anterior Bilateral Throughout] Blood Pressure 99/51 106/49 99/51 O2 Sat by Pulse 97 96 100 Oximetry 09/08/16 09/08/16 09/08/16 04:15 04:30 04:45 Temperature Pulse Rate 46 L 61 Pulse Rate [ Anterior Bilateral Throughout] Pulse Rate [ From Monitor] Respiratory 13 25 H Rate Respiratory Rate [Anterior Bilateral Throughout] Blood Pressure 120/42 106/49 117/45 O2 Sat by Pulse 99 100 100 Oximetry 09/08/16 09/08/16 09/08/16 05:00 05:15 05:30 Temperature Pulse Rate 53 L 58 L 67 Pulse Rate [ Anterior Bilateral Throughout] Pulse Rate [ From Monitor] Respiratory 22 26 H 27 H Rate Respiratory Rate [Anterior Bilateral Throughout] Blood Pressure 107/44 111/45 108/51 O2 Sat by Pulse 98 99 97 Oximetry 09/08/16 09/08/16 09/08/16 05:45 06:00 06:15 Temperature Pulse Rate 56 L 61 63 Pulse Rate [ Anterior Bilateral Throughout] Pulse Rate [ From Monitor] Respiratory 26 H 14 27 H Rate Respiratory Rate [Anterior Bilateral Throughout] Blood Pressure 113/32 107/41 106/46 O2 Sat by Pulse 100 99 99 Oximetry 09/08/16 09/08/16 09/08/16 06:30 06:45 07:00 Temperature Pulse Rate 63 66 58 L Pulse Rate [ Anterior Bilateral Throughout] Pulse Rate [ From Monitor] Respiratory 27 H 12 24 Rate Respiratory Rate [Anterior Bilateral Throughout] Blood Pressure 110/48 115/47 109/45 O2 Sat by Pulse 96 97 98 Oximetry 09/08/16 09/08/16 09/08/16 07:15 07:30 07:45 Temperature Pulse Rate 61 50 L 51 L Pulse Rate [ Anterior Bilateral Throughout] Pulse Rate [ From Monitor] Respiratory 27 H 17 25 H Rate Respiratory Rate [Anterior Bilateral Throughout] Blood Pressure 107/40 105/37 109/43 O2 Sat by Pulse 99 98 98 Oximetry 09/08/16 09/08/16 09/08/16 07:47 08:00 08:12 Temperature 97.4 F L Pulse Rate 59 L 59 L Pulse Rate [ Anterior Bilateral Throughout] Pulse Rate [ 80 From Monitor] Respiratory 20 20 Rate Respiratory Rate [Anterior Bilateral Throughout] Blood Pressure 105/52 105/52 O2 Sat by Pulse 98 98 98 Oximetry 09/08/16 09/08/16 09/08/16 08:15 08:30 08:41 Temperature Pulse Rate 63 76 Pulse Rate [ 68 Anterior Bilateral Throughout] Pulse Rate [ From Monitor] Respiratory 19 19 Rate Respiratory 18 Rate [Anterior Bilateral Throughout] Blood Pressure 114/52 124/54 O2 Sat by Pulse 96 98 Oximetry 09/08/16 09/08/16 09/08/16 08:45 09:00 09:15 Temperature Pulse Rate 68 57 L 64 Pulse Rate [ Anterior Bilateral Throughout] Pulse Rate [ From Monitor] Respiratory 14 18 25 H Rate Respiratory Rate [Anterior Bilateral Throughout] Blood Pressure 116/45 115/44 106/52 O2 Sat by Pulse 99 97 97 Oximetry General appearance: Present: other (intubated) - EENT Eyes: PERRL, EOM intact - Neck Neck: supple - Respiratory Respiratory effort: normal Respiratory: bilateral: diminished - Cardiovascular Rhythm: regular Heart Sounds: Present: S1 & S2. Absent: gallop, rub Extremities: pulses intact, No edema, normal color, Full ROM - Gastrointestinal General gastrointestinal: Present: soft, non-tender, non-distended, normal bowel sounds - Integumentary Integumentary: clear, warm, dry - Musculoskeletal Musculoskeletal: strength equal bilaterally - Psychiatric Psychiatric: other (intubated and unresponsive) - Labs CBC & Chem 7: 09/08/16 04:00 09/08/16 04:00 Labs: Abnormal lab results 09/07/16 09/07/16 09/07/16 Range/Units 11:46 17:41 23:18 WBC (4.5-11.0) K/mm3 RBC (3.65-5.03) M/mm3 Hgb (10.1-14.3) gm/dl Hct (30.3-42.9) % RDW (13.2-15.2) % Plt Count (140-440) K/mm3 POC ABG pH (7.35-7.45) POC ABG pO2 (80-105) Potassium (3.6-5.0) mmol/L BUN (7-17) mg/dL Creatinine (0.7-1.2) mg/dL POC Glucose 313 H 227 H 116 H (70-105) Calcium (8.4-10.2) mg/dL 09/08/16 09/08/16 09/08/16 Range/Units 04:00 04:00 05:15 WBC 18.4 H (4.5-11.0) K/mm3 RBC 2.43 L (3.65-5.03) M/mm3 Hgb 6.9 L (10.1-14.3) gm/dl Hct 21.5 L (30.3-42.9) % RDW 20.5 H (13.2-15.2) % Plt Count 119 L (140-440) K/mm3 POC ABG pH 7.458 H (7.35-7.45) POC ABG pO2 177 H (80-105) Potassium 3.5 L (3.6-5.0) mmol/L BUN 37 H (7-17) mg/dL Creatinine 1.3 H (0.7-1.2) mg/dL POC Glucose (70-105) Calcium 7.1 L (8.4-10.2) mg/dL
--- NOTE | 2016-09-08 10:44 | Progress Note ---
Assessment and Plan Altered mental status Acute respiratory failure intubated on the vent Lactic acidosis Anemia requiring blood transfusion Obesity Decubitus ulcers Sepsis Diabetes EF 50-55% on echo 06/2016. Conservative cardiac management. Subjective Date of service: 09/08/16 Principal diagnosis: Acute Hypoxemic Hypercapnic Resp Failure; Severe Sepsis Interval history: Patient remains intubated on the vent. Objective Vital Signs Temp Pulse Pulse Pulse Resp Resp BP 09/08/16 10:00 70 25 H 113/53 09/08/16 09:45 66 14 121/50 09/08/16 09:30 73 15 111/48 09/08/16 09:15 64 25 H 106/52 09/08/16 09:00 57 L 18 115/44 09/08/16 08:56 70 18 09/08/16 08:45 68 14 116/45 09/08/16 08:41 68 18 09/08/16 08:30 76 19 124/54 09/08/16 08:15 63 19 114/52 09/08/16 08:12 59 L 105/52 09/08/16 08:00 97.4 F L 59 L 20 105/52 09/08/16 07:47 80 20 09/08/16 07:45 51 L 25 H 109/43 09/08/16 07:30 50 L 17 105/37 09/08/16 07:15 61 27 H 107/40 09/08/16 07:00 58 L 24 109/45 09/08/16 06:45 66 12 115/47 09/08/16 06:30 63 27 H 110/48 09/08/16 06:15 63 27 H 106/46 09/08/16 06:00 61 14 107/41 09/08/16 05:45 56 L 26 H 113/32 09/08/16 05:30 67 27 H 108/51 09/08/16 05:15 58 L 26 H 111/45 09/08/16 05:00 53 L 22 107/44 09/08/16 04:45 61 25 H 117/45 09/08/16 04:30 46 L 13 106/49 09/08/16 04:15 120/42 09/08/16 04:04 61 99/51 09/08/16 04:00 67 19 106/49 09/08/16 03:45 62 27 H 99/51 09/08/16 03:39 98.4 F 09/08/16 03:30 74 21 106/46 09/08/16 03:15 57 L 26 H 108/33 09/08/16 03:00 78 28 H 93/40 09/08/16 02:45 73 24 102/39 09/08/16 02:43 66 18 09/08/16 02:30 65 29 H 97/44 09/08/16 02:23 59 L 28 H 09/08/16 02:15 69 28 H 95/37 09/08/16 02:00 68 25 H 96/34 09/08/16 01:45 57 L 25 H 117/37 09/08/16 01:30 58 L 23 115/43 09/08/16 01:15 65 21 110/43 09/08/16 01:00 54 L 25 H 113/43 09/08/16 00:45 60 19 108/45 09/08/16 00:30 68 27 H 109/47 09/08/16 00:16 54 L 18 110/44 09/08/16 00:00 63 61 24 126/44 09/07/16 23:45 67 29 H 105/49 09/07/16 23:38 98.8 F 74 28 H 116/43 09/07/16 23:30 63 25 H 116/43 09/07/16 23:15 70 32 H 106/42 09/07/16 23:00 69 40 H 112/45 09/07/16 22:49 69 111/42 09/07/16 22:45 69 25 H 111/42 09/07/16 22:30 75 29 H 101/41 09/07/16 22:15 60 29 H 105/44 09/07/16 22:00 65 22 111/46 09/07/16 21:45 63 28 H 104/41 09/07/16 21:30 78 25 H 107/51 09/07/16 21:15 56 L 26 H 104/43 09/07/16 21:00 63 27 H 110/44 09/07/16 20:45 67 16 120/40 09/07/16 20:30 72 30 H 114/40 09/07/16 20:15 70 27 H 100/52 09/07/16 20:00 63 70 24 102/49 09/07/16 19:45 53 L 24 118/45 09/07/16 19:33 97.2 F L 09/07/16 19:30 59 L 28 H 113/51 09/07/16 19:21 60 24 09/07/16 19:15 63 25 H 117/51 09/07/16 19:09 61 26 H 09/07/16 19:06 61 120/51 09/07/16 19:00 60 24 120/51 09/07/16 18:45 52 L 26 H 118/50 09/07/16 18:30 53 L 22 108/42 09/07/16 18:15 69 22 113/58 09/07/16 18:00 60 26 H 122/50 09/07/16 17:45 66 26 H 121/54 09/07/16 17:30 59 L 25 H 114/48 09/07/16 17:15 47 L 27 H 114/48 09/07/16 17:00 56 L 26 H 95/48 09/07/16 16:45 53 L 22 100/44 09/07/16 16:30 63 27 H 107/48 09/07/16 16:16 68 25 H 111/40 09/07/16 16:00 63 25 H 112/53 09/07/16 15:57 94.0 F L 09/07/16 15:45 64 10 L 102/53 09/07/16 15:30 60 13 102/53 09/07/16 15:15 59 L 19 100/50 09/07/16 15:00 62 11 L 104/45 09/07/16 14:45 47 L 26 H 95/53 09/07/16 14:30 49 L 24 101/42 09/07/16 14:15 68 61 25 H 23 122/61 09/07/16 14:00 53 L 23 113/57 09/07/16 13:45 58 L 25 H 121/52 09/07/16 13:30 58 L 23 137/64 09/07/16 13:26 61 24 09/07/16 13:15 61 25 H 128/59 09/07/16 13:00 55 L 24 130/57 09/07/16 12:45 60 23 141/58 09/07/16 12:30 59 L 24 137/69 09/07/16 12:15 55 L 23 127/65 05/29/17 12:00 97.8 F 58 L 25 H 133/63 09/07/16 11:45 62 26 H 131/62 09/07/16 11:30 61 26 H 133/61 09/07/16 11:24 59 L 122/58 09/07/16 11:15 55 L 27 H 122/58 09/07/16 11:00 57 L 25 H 128/55 09/07/16 10:45 57 L 26 H 119/56 Pulse Ox 09/08/16 10:00 97 09/08/16 09:45 96 09/08/16 09:30 97 09/08/16 09:15 97 09/08/16 09:00 97 09/08/16 08:56 09/08/16 08:45 99 09/08/16 08:41 09/08/16 08:30 98 09/08/16 08:15 96 09/08/16 08:12 98 09/08/16 08:00 98 09/08/16 07:47 98 09/08/16 07:45 98 09/08/16 07:30 98 09/08/16 07:15 99 09/08/16 07:00 98 09/08/16 06:45 97 09/08/16 06:30 96 09/08/16 06:15 99 09/08/16 06:00 99 09/08/16 05:45 100 09/08/16 05:30 97 09/08/16 05:15 99 09/08/16 05:00 98 09/08/16 04:45 100 09/08/16 04:30 100 09/08/16 04:15 99 09/08/16 04:04 100 09/08/16 04:00 96 09/08/16 03:45 97 09/08/16 03:39 09/08/16 03:30 97 09/08/16 03:15 99 09/08/16 03:00 98 09/08/16 02:45 98 09/08/16 02:43 09/08/16 02:30 97 09/08/16 02:23 09/08/16 02:15 99 09/08/16 02:00 98 09/08/16 01:45 100 09/08/16 01:30 100 09/08/16 01:15 100 09/08/16 01:00 98 09/08/16 00:45 99 09/08/16 00:30 100 09/08/16 00:16 100 09/08/16 00:00 98 09/07/16 23:45 97 09/07/16 23:38 100 09/07/16 23:30 97 09/07/16 23:15 97 09/07/16 23:00 99 09/07/16 22:49 98 09/07/16 22:45 98 09/07/16 22:30 100 09/07/16 22:15 100 09/07/16 22:00 100 09/07/16 21:45 100 09/07/16 21:30 98 09/07/16 21:15 99 09/07/16 21:00 100 09/07/16 20:45 99 09/07/16 20:30 99 09/07/16 20:15 100 09/07/16 20:00 93 09/07/16 19:45 97 09/07/16 19:33 09/07/16 19:30 96 09/07/16 19:21 09/07/16 19:15 100 09/07/16 19:09 09/07/16 19:06 100 09/07/16 19:00 97 09/07/16 18:45 96 09/07/16 18:30 98 09/07/16 18:15 97 09/07/16 18:00 98 09/07/16 17:45 97 09/07/16 17:30 97 09/07/16 17:15 98 09/07/16 17:00 98 09/07/16 16:45 97 09/07/16 16:30 97 09/07/16 16:16 100 09/07/16 16:00 98 09/07/16 15:57 05 15:45 98 09/07/16 15:30 99 09/07/16 15:15 98 09/07/16 15:00 98 09/07/16 14:45 98 09/07/16 14:30 98 09/07/16 14:15 95 09/07/16 14:00 95 09/07/16 13:45 95 09/07/16 13:30 98 09/07/16 13:26 09/07/16 13:15 96 09/07/16 13:00 96 09/07/16 12:45 97 09/07/16 12:30 96 09/07/16 12:15 95 09/07/16 12:00 95 09/07/16 11:45 95 09/07/16 11:30 94 09/07/16 11:24 100 09/07/16 11:15 99 09/07/16 11:00 96 09/07/16 10:45 97 - Physical Examination General: Other (intubated on the vent) Cardiac: Positive: Reg Rate and Rhythm - Labs and Meds CBC 09/08/16 Range/Units 04:00 WBC 18.4 H (4.5-11.0) K/mm3 RBC 2.43 L (3.65-5.03) M/mm3 Hgb 6.9 L (10.1-14.3) gm/dl Hct 21.5 L (30.3-42.9) % Plt Count 119 L (140-440) K/mm3 Comprehensive Metabolic Panel 09/08/16 Range/Units 04:00 Sodium 139 (137-145) mmol/L Potassium 3.5 L (3.6-5.0) mmol/L Chloride 100.1 (98-107) mmol/L Carbon Dioxide 24 (22-30) mmol/L BUN 37 H (7-17) mg/dL Creatinine 1.3 H (0.7-1.2) mg/dL Glucose 93 (65-100) mg/dL Calcium 7.1 L (8.4-10.2) mg/dL - Allied health notes Allied health notes reviewed: RT
--- NOTE | 2016-09-08 13:01 | Progress Note ---
Assessment and Plan (1) Respiratory failure Current Visit: Yes Status: Acute Qualifiers: Chronicity: C Respiratory failure complication: R Plan to address problem: - Placed on PSV trial at 15/5 and tolerating well so far - VAP bundle addressed - continue to Wean FIO2 for O2 sats>92% - continue VTE prophylaxis (SCD's re: thrombocytopenia) - continue Stress ulcer prophylaxis (Pantoprazole) - continuing sedation vacations while watching for any obvious seizure activity - continue Lung protective strategies (2) Shock Current Visit: Yes Status: Acute Plan to address problem: - Treated as septic shock secondary to HCAP - off vasopressors now - strict glycemic control - completed AB's course; trending WBC - ID following - On steroid therapy for possible COPD with AE (but also possible relative adrenal insufficiency)(weaning slowly) (3) Acute on chronic diastolic (congestive) heart failure Current Visit: No Status: Acute Plan to address problem: - Documented EF 55% - CVP's 8-9; diuretics on hold - Continue to monitoring renal function and electrolyte profile closely - Monitor urine output, electrolyte profile (4) Altered mental status Current Visit: Yes Status: Acute Qualifiers: Altered mental status type: unspecified Coma depth: C Coma timing: C Qualified Code(s): R41.82 - Altered mental status, unspecified Plan to address problem: - Neurology following - on keppra - weaned off ativan and will use prn now (5) Morbid obesity Current Visit: Yes Status: Acute Qualifiers: Obesity type: unspecified obesity type Qualified Code(s): E66.01 - Morbid ( severe) obesity due to excess calories - weight loss strategies once more stable - caloric intake per department of sociology chair at this point (6) Anemia Current Visit: Yes Status: Acute Qualifiers: Anemia type: unspecified type Iron deficiency anemia type: I Vitamin B12 deficiency anemia type: V Folate deficiency anemia type: F Bone marrow failure anemia type: B Hemolytic anemia type: H Other causes of anemia: O Qualified Code(s): D64.9 - Anemia, unspecified Plan to address problem: - no more coffee grounds noted - continuing PPI therapy - begining reglan today - resume trickle feeding (7) Status epilepticus Current Visit: Yes Status: Acute Plan to address problem: - Continue AEDs - Neurology following - no obvious clinical seizure activity (8) 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 - This could be secondary to an intra-cranial process, however unable to obtain neuro-imaging, patient's weight exceeds allowable maximum (9) Discharge planning issues Current Visit: Yes Status: Acute Plan to address problem: - Continue current care. - need to determine appropriate power of complex human resources manager / legal healthcare fuels sales representative prior to any tentative withdrawal of care - discussed with relatives in room that a tracheostomy will be indicated if further care desired in light especially of altered mental status - discussed with her son Srikanth who states that there are 3 adult children; his other brother is awaiting a call and agree's with DNR decision; also states that he did ask his aunt (patient's sister) to sign the DNR; third brother is incarcerated at this time ..she remains critically ill on life sustaining interventions including MVS and at high risk for further deterioration including ....30' CCT Subjective Date of service: 09/08/16 Principal diagnosis: Acute Hypoxemic Hypercapnic Resp Failure; Severe Sepsis Interval history: Seen and examined at bedside; 24 hour events reviewed; nursing and respiratory care staff consulted; no adverse overnight events reported to me; remains on MVS ; oxygenation improved; AMS is persistent; neurology evaluation pending; no new issues otherwise; Hb <7.0 and PRBC transfusion ordered Objective Vital Signs - 12hr 09/08/16 09/08/16 09/08/16 01:15 01:30 01:45 Temperature Pulse Rate 65 58 L 57 L Pulse Rate [ Anterior Bilateral Throughout] Pulse Rate [ From Monitor] Respiratory 21 23 25 H Rate Respiratory Rate [Anterior Bilateral Throughout] Blood Pressure 110/43 115/43 117/37 O2 Sat by Pulse 100 100 100 Oximetry 09/08/16 09/08/16 09/08/16 02:00 02:15 02:23 Temperature Pulse Rate 68 69 Pulse Rate [ 59 L Anterior Bilateral Throughout] Pulse Rate [ From Monitor] Respiratory 25 H 28 H Rate Respiratory 28 H Rate [Anterior Bilateral Throughout] Blood Pressure 96/34 95/37 O2 Sat by Pulse 98 99 Oximetry 09/08/16 09/08/16 09/08/16 02:30 02:43 02:45 Temperature Pulse Rate 65 73 Pulse Rate [ 66 Anterior Bilateral Throughout] Pulse Rate [ From Monitor] Respiratory 29 H 24 Rate Respiratory 18 Rate [Anterior Bilateral Throughout] Blood Pressure 97/44 102/39 O2 Sat by Pulse 97 98 Oximetry 09/08/16 09/08/16 09/08/16 03:00 03:15 03:30 Temperature Pulse Rate 78 57 L 74 Pulse Rate [ Anterior Bilateral Throughout] Pulse Rate [ From Monitor] Respiratory 28 H 26 H 21 Rate Respiratory Rate [Anterior Bilateral Throughout] Blood Pressure 93/40 108/33 106/46 O2 Sat by Pulse 98 99 97 Oximetry 09/08/16 09/08/16 09/08/16 03:39 03:45 04:00 Temperature 98.4 F Pulse Rate 62 67 Pulse Rate [ Anterior Bilateral Throughout] Pulse Rate [ From Monitor] Respiratory 27 H 19 Rate Respiratory Rate [Anterior Bilateral Throughout] Blood Pressure 99/51 106/49 O2 Sat by Pulse 97 96 Oximetry 09/08/16 09/08/16 09/08/16 04:04 04:15 04:30 Temperature Pulse Rate 61 46 L Pulse Rate [ Anterior Bilateral Throughout] Pulse Rate [ From Monitor] Respiratory 13 Rate Respiratory Rate [Anterior Bilateral Throughout] Blood Pressure 99/51 120/42 106/49 O2 Sat by Pulse 100 99 100 Oximetry 09/08/16 09/08/16 09/08/16 04:45 05:00 05:15 Temperature Pulse Rate 61 53 L 58 L Pulse Rate [ Anterior Bilateral Throughout] Pulse Rate [ From Monitor] Respiratory 25 H 22 26 H Rate Respiratory Rate [Anterior Bilateral Throughout] Blood Pressure 117/45 107/44 111/45 O2 Sat by Pulse 100 98 99 Oximetry 09/08/16 09/08/16 09/08/16 05:30 05:45 06:00 Temperature Pulse Rate 67 56 L 61 Pulse Rate [ Anterior Bilateral Throughout] Pulse Rate [ From Monitor] Respiratory 27 H 26 H 14 Rate Respiratory Rate [Anterior Bilateral Throughout] Blood Pressure 108/51 113/32 107/41 O2 Sat by Pulse 97 100 99 Oximetry 09/08/16 09/08/16 09/08/16 06:15 06:30 06:45 Temperature Pulse Rate 63 63 66 Pulse Rate [ Anterior Bilateral Throughout] Pulse Rate [ From Monitor] Respiratory 27 H 27 H 12 Rate Respiratory Rate [Anterior Bilateral Throughout] Blood Pressure 106/46 110/48 115/47 O2 Sat by Pulse 99 96 97 Oximetry 09/08/16 09/08/16 09/08/16 07:00 07:15 07:30 Temperature Pulse Rate 58 L 61 50 L Pulse Rate [ Anterior Bilateral Throughout] Pulse Rate [ From Monitor] Respiratory 24 27 H 17 Rate Respiratory Rate [Anterior Bilateral Throughout] Blood Pressure 109/45 107/40 105/37 O2 Sat by Pulse 98 99 98 Oximetry 09/08/16 09/08/16 09/08/16 07:45 07:47 08:00 Temperature 97.4 F L Pulse Rate 51 L 59 L Pulse Rate [ Anterior Bilateral Throughout] Pulse Rate [ 80 From Monitor] Respiratory 25 H 20 20 Rate Respiratory Rate [Anterior Bilateral Throughout] Blood Pressure 109/43 105/52 O2 Sat by Pulse 98 98 98 Oximetry 09/08/16 09/08/16 09/08/16 08:12 08:15 08:30 Temperature Pulse Rate 59 L 63 76 Pulse Rate [ Anterior Bilateral Throughout] Pulse Rate [ From Monitor] Respiratory 19 19 Rate Respiratory Rate [Anterior Bilateral Throughout] Blood Pressure 105/52 114/52 124/54 O2 Sat by Pulse 98 96 98 Oximetry 09/08/16 09/08/16 09/08/16 08:41 08:45 08:56 Temperature Pulse Rate 68 Pulse Rate [ 68 70 Anterior Bilateral Throughout] Pulse Rate [ From Monitor] Respiratory 14 Rate Respiratory 18 18 Rate [Anterior Bilateral Throughout] Blood Pressure 116/45 O2 Sat by Pulse 99 Oximetry 09/08/16 09/08/16 09/08/16 09:00 09:15 09:30 Temperature Pulse Rate 57 L 64 73 Pulse Rate [ Anterior Bilateral Throughout] Pulse Rate [ From Monitor] Respiratory 18 25 H 15 Rate Respiratory Rate [Anterior Bilateral Throughout] Blood Pressure 115/44 106/52 111/48 O2 Sat by Pulse 97 97 97 Oximetry 09/08/16 09/08/16 09/08/16 09:45 10:00 10:15 Temperature Pulse Rate 66 70 74 Pulse Rate [ Anterior Bilateral Throughout] Pulse Rate [ From Monitor] Respiratory 14 25 H 9 L Rate Respiratory Rate [Anterior Bilateral Throughout] Blood Pressure 121/50 113/53 114/52 O2 Sat by Pulse 96 97 98 Oximetry 09/08/16 09/08/16 09/08/16 10:30 10:45 11:00 Temperature Pulse Rate 67 65 74 Pulse Rate [ Anterior Bilateral Throughout] Pulse Rate [ From Monitor] Respiratory 25 H 27 H 25 H Rate Respiratory Rate [Anterior Bilateral Throughout] Blood Pressure 109/46 108/48 101/54 O2 Sat by Pulse 98 95 99 Oximetry 09/08/16 09/08/16 09/08/16 11:15 11:29 11:30 Temperature Pulse Rate 66 66 79 Pulse Rate [ Anterior Bilateral Throughout] Pulse Rate [ From Monitor] Respiratory 26 H 27 H Rate Respiratory Rate [Anterior Bilateral Throughout] Blood Pressure 110/44 110/44 124/52 O2 Sat by Pulse 98 98 97 Oximetry 09/08/16 09/08/16 11:45 12:00 Temperature Pulse Rate 76 70 Pulse Rate [ Anterior Bilateral Throughout] Pulse Rate [ From Monitor] Respiratory 27 H 25 H Rate Respiratory Rate [Anterior Bilateral Throughout] Blood Pressure 106/64 114/54 O2 Sat by Pulse 98 99 Oximetry Constitutional: no acute distress, other (obtunded) Eyes: non-icteric ENT: oropharynx moist Neck: supple, no lymphadenopathy Effort: mildly labored Ascultation: Bilateral: clear, diminished breath sounds (bases) Cardiovascular: regular rate and rhythm Gastrointestinal: hypoactive bowel sounds, soft, non-tender, non-distended Integumentary: normal Extremities: no cyanosis, pink and warm, pulses normal, no ischemia or petechiae , edema (trace) Neurologic: unable to assess, other (off sedation now) Psychiatric: other (sedated) CBC and BMP: 09/08/16 04:00 09/08/16 04:00 ABG, PT/INR, D-dimer: ABG POC ABG pH 7.458 (7.35-7.45) H 09/08/16 05:15 POC ABG pCO2 41.0 (35-45) 09/08/16 05:15 POC ABG pO2 177 (80-105) H 09/08/16 05:15 POC ABG HCO3 29.0 09/08/16 05:15 POC ABG Total CO2 30 09/08/16 05:15 POC ABG O2 Sat 100 09/08/16 05:15 PT/INR, D-dimer PT 16.4 Sec. (12.2-14.9) H 09/06/16 03:30 INR 1.33 (0.87-1.13) H 09/06/16 03:30 Abnormal lab findings: Abnormal Labs 08/29/16 08/30/16 08/30/16 21:59 00:16 05:39 WBC RBC Hgb Hct MCH MCHC RDW Plt Count Seg Neutrophils % Seg Neuts % (Manual) Nucleated RBC % Seg Neutrophils # Seg Neutrophils # Man PT INR POC ABG pH POC ABG pCO2 POC ABG pO2 Sodium Potassium Chloride Carbon Dioxide BUN Creatinine Glucose POC Glucose 106 H 128 H Lactic Acid Calcium Total Bilirubin AST Alkaline Phosphatase Ammonia Troponin T C-Reactive Protein Total Protein Albumin Prealbumin 0.120 L Crossmatch 08/30/16 08/30/16 08/30/16 10:30 10:30 11:12 WBC 11.1 H RBC 3.16 L Hgb 8.7 L Hct 29.9 L MCH MCHC 29 L RDW 25.0 H Plt Count Seg Neutrophils % 78.6 H Seg Neuts % (Manual) Nucleated RBC % Seg Neutrophils # 8.7 H Seg Neutrophils # Man PT INR POC ABG pH POC ABG pCO2 POC ABG pO2 Sodium 135 L Potassium Chloride Carbon Dioxide 20 L BUN Creatinine 1.5 H Glucose 148 H POC Glucose 142 H Lactic Acid Calcium 7.2 L Total Bilirubin 1.30 H AST 143 H Alkaline Phosphatase 392 H Ammonia Troponin T C-Reactive Protein Total Protein 6.1 L Albumin 1.2 L Prealbumin Crossmatch 08/30/16 08/30/16 08/30/16 17:41 18:03 18:18 WBC RBC Hgb Hct MCH MCHC RDW Plt Count Seg Neutrophils % Seg Neuts % (Manual) Nucleated RBC % Seg Neutrophils # Seg Neutrophils # Man PT INR POC ABG pH 7.316 L POC ABG pCO2 POC ABG pO2 44 L 59 L Sodium Potassium Chloride Carbon Dioxide BUN Creatinine Glucose POC Glucose 150 H Lactic Acid Calcium Total Bilirubin AST Alkaline Phosphatase Ammonia Troponin T C-Reactive Protein Total Protein Albumin Prealbumin Crossmatch 08/30/16 08/30/16 08/31/16 22:20 22:20 00:11 WBC RBC Hgb Hct MCH MCHC RDW Plt Count Seg Neutrophils % Seg Neuts % (Manual) Nucleated RBC % Seg Neutrophils # Seg Neutrophils # Man PT INR POC ABG pH POC ABG pCO2 POC ABG pO2 Sodium Potassium Chloride Carbon Dioxide BUN Creatinine Glucose POC Glucose 133 H Lactic Acid 2.30 H* Calcium Total Bilirubin AST Alkaline Phosphatase Ammonia Troponin T C-Reactive Protein 10.20 H Total Protein Albumin Prealbumin Crossmatch 08/31/16 08/31/16 08/31/16 04:20 04:20 04:20 WBC 18.3 H RBC 3.19 L Hgb 8.8 L Hct 30.0 L MCH 27 L MCHC 29 L RDW 23.9 H Plt Count Seg Neutrophils % Seg Neuts % (Manual) Nucleated RBC % Seg Neutrophils # Seg Neutrophils # Cristian PT 16.8 H INR 1.37 H POC ABG pH POC ABG pCO2 POC ABG pO2 Sodium 136 L Potassium Chloride Carbon Dioxide 19 L BUN Creatinine 1.5 H Glucose 125 H POC Glucose Lactic Acid Calcium 7.0 L Total Bilirubin 1.50 H AST 131 H Alkaline Phosphatase 431 H Ammonia Troponin T C-Reactive Protein Total Protein 6.2 L Albumin 1.2 L Prealbumin Crossmatch 08/31/16 08/31/16 08/31/16 04:20 05:22 05:24 WBC RBC Hgb Hct MCH MCHC RDW Plt Count Seg Neutrophils % Seg Neuts % (Manual) Nucleated RBC % Seg Neutrophils # Seg Neutrophils # Cristian PT INR POC ABG pH POC ABG pCO2 POC ABG pO2 142 H Sodium Potassium Chloride Carbon Dioxide BUN Creatinine Glucose POC Glucose 123 H Lactic Acid Calcium Total Bilirubin AST Alkaline Phosphatase Ammonia 70.0 H Troponin T C-Reactive Protein Total Protein Albumin Prealbumin Crossmatch 08/31/16 08/31/16 08/31/16 12:10 15:45 17:38 WBC RBC Hgb Hct MCH MCHC RDW Plt Count Seg Neutrophils % Seg Neuts % (Manual) Nucleated RBC % Seg Neutrophils # Seg Neutrophils # Cristian PT INR POC ABG pH POC ABG pCO2 POC ABG pO2 Sodium 136 L Potassium Chloride Carbon Dioxide 21 L BUN Creatinine 1.5 H Glucose 160 H POC Glucose 147 H 151 H Lactic Acid Calcium 6.9 L Total Bilirubin AST Alkaline Phosphatase Ammonia Troponin T 0.109 H* D C-Reactive Protein Total Protein Albumin Prealbumin Crossmatch 09/01/16 09/01/16 09/01/16 00:09 04:00 04:00 WBC 14.8 H RBC 2.89 L Hgb 7.8 L Hct 27.2 L MCH 27 L MCHC 29 L RDW 24.4 H Plt Count Seg Neutrophils % Seg Neuts % (Manual) Nucleated RBC % Seg Neutrophils # Seg Neutrophils # Man PT 18.2 H INR 1.51 H POC ABG pH POC ABG pCO2 POC ABG pO2 Sodium Potassium Chloride Carbon Dioxide BUN Creatinine Glucose POC Glucose 192 H Lactic Acid Calcium Total Bilirubin AST Alkaline Phosphatase Ammonia Troponin T C-Reactive Protein Total Protein Albumin Prealbumin Crossmatch 09/01/16 09/01/16 09/01/16 04:00 05:28 11:28 WBC RBC Hgb Hct MCH MCHC RDW Plt Count Seg Neutrophils % Seg Neuts % (Manual) Nucleated RBC % Seg Neutrophils # Seg Neutrophils # Man PT INR POC ABG pH POC ABG pCO2 POC ABG pO2 Sodium Potassium Chloride Carbon Dioxide 20 L BUN Creatinine 1.6 H Glucose 183 H POC Glucose 189 H 207 H Lactic Acid Calcium 6.9 L Total Bilirubin 1.30 H AST 138 H Alkaline Phosphatase 520 H Ammonia Troponin T C-Reactive Protein Total Protein 6.1 L Albumin 1.2 L Prealbumin Crossmatch 09/01/16 09/01/16 09/02/16 16:56 23:49 05:00 WBC RBC Hgb Hct MCH MCHC RDW Plt Count Seg Neutrophils % Seg Neuts % (Manual) Nucleated RBC % Seg Neutrophils # Seg Neutrophils # Man PT 18.0 H INR 1.49 H POC ABG pH POC ABG pCO2 POC ABG pO2 Sodium Potassium Chloride Carbon Dioxide BUN Creatinine Glucose POC Glucose 250 H 307 H Lactic Acid Calcium Total Bilirubin AST Alkaline Phosphatase Ammonia Troponin T C-Reactive Protein Total Protein Albumin Prealbumin Crossmatch 09/02/16 09/02/16 09/02/16 05:00 05:00 05:45 WBC 12.3 H RBC 2.57 L Hgb 7.1 L Hct 23.4 L MCH MCHC RDW 23.9 H Plt Count Seg Neutrophils % Seg Neuts % (Manual) 72.0 H Nucleated RBC % 25.0 H Seg Neutrophils # Seg Neutrophils # Man 8.9 H PT INR POC ABG pH POC ABG pCO2 POC ABG pO2 Sodium Potassium Chloride Carbon Dioxide BUN Creatinine 1.4 H Glucose 299 H POC Glucose 327 H Lactic Acid Calcium 7.0 L Total Bilirubin AST Alkaline Phosphatase Ammonia Troponin T C-Reactive Protein Total Protein Albumin Prealbumin Crossmatch 09/02/16 09/02/16 09/02/16 12:22 17:22 23:24 WBC RBC Hgb Hct MCH MCHC RDW Plt Count Seg Neutrophils % Seg Neuts % (Manual) Nucleated RBC % Seg Neutrophils # Seg Neutrophils # Man PT INR POC ABG pH POC ABG pCO2 POC ABG pO2 Sodium Potassium Chloride Carbon Dioxide BUN Creatinine Glucose POC Glucose 310 H 358 H 286 H Lactic Acid Calcium Total Bilirubin AST Alkaline Phosphatase Ammonia Troponin T C-Reactive Protein Total Protein Albumin Prealbumin Crossmatch 09/03/16 09/03/16 09/03/16 04:10 04:10 04:10 WBC 11.8 H RBC 2.29 L Hgb 6.1 L Hct 21.0 L MCH 27 L MCHC 29 L RDW 24.1 H Plt Count Seg Neutrophils % Seg Neuts % (Manual) Nucleated RBC % Seg Neutrophils # Seg Neutrophils # Man PT 17.6 H INR 1.45 H POC ABG pH POC ABG pCO2 POC ABG pO2 Sodium Potassium Chloride Carbon Dioxide BUN Creatinine 1.4 H Glucose 301 H POC Glucose Lactic Acid Calcium 7.0 L Total Bilirubin AST Alkaline Phosphatase Ammonia Troponin T C-Reactive Protein Total Protein Albumin Prealbumin Crossmatch 09/03/16 09/03/16 09/03/16 05:59 11:36 17:42 WBC RBC Hgb Hct MCH MCHC RDW Plt Count Seg Neutrophils % Seg Neuts % (Manual) Nucleated RBC % Seg Neutrophils # Seg Neutrophils # Man PT INR POC ABG pH POC ABG pCO2 POC ABG pO2 Sodium Potassium Chloride Carbon Dioxide BUN Creatinine Glucose POC Glucose 351 H 285 H 259 H Lactic Acid Calcium Total Bilirubin AST Alkaline Phosphatase Ammonia Troponin T C-Reactive Protein Total Protein Albumin Prealbumin Crossmatch 09/03/16 09/04/16 09/04/16 23:00 04:27 05:36 WBC RBC Hgb Hct MCH MCHC RDW Plt Count Seg Neutrophils % Seg Neuts % (Manual) Nucleated RBC % Seg Neutrophils # Seg Neutrophils # Man PT INR POC ABG pH 7.544 H POC ABG pCO2 30.8 L POC ABG pO2 78 L Sodium Potassium Chloride Carbon Dioxide BUN Creatinine Glucose POC Glucose 192 H 228 H Lactic Acid Calcium Total Bilirubin AST Alkaline Phosphatase Ammonia Troponin T C-Reactive Protein Total Protein Albumin Prealbumin Crossmatch 09/04/16 09/04/16 09/04/16 06:37 06:37 06:39 WBC 21.0 H RBC 2.22 L Hgb 6.0 L Hct 20.1 L MCH 27 L MCHC RDW 24.3 H Plt Count Seg Neutrophils % Seg Neuts % (Manual) Nucleated RBC % Seg Neutrophils # Seg Neutrophils # Man PT 16.8 H INR 1.37 H POC ABG pH POC ABG pCO2 POC ABG pO2 Sodium Potassium Chloride Carbon Dioxide BUN Creatinine 1.4 H Glucose 201 H POC Glucose Lactic Acid Calcium 7.1 L Total Bilirubin AST Alkaline Phosphatase Ammonia Troponin T C-Reactive Protein Total Protein Albumin Prealbumin Crossmatch 09/04/16 09/04/16 09/04/16 12:14 15:47 17:41 WBC RBC Hgb Hct MCH MCHC RDW Plt Count Seg Neutrophils % Seg Neuts % (Manual) Nucleated RBC % Seg Neutrophils # Seg Neutrophils # Man PT INR POC ABG pH POC ABG pCO2 POC ABG pO2 Sodium Potassium Chloride Carbon Dioxide BUN Creatinine Glucose POC Glucose 176 H 218 H Lactic Acid Calcium Total Bilirubin AST Alkaline Phosphatase Ammonia Troponin T C-Reactive Protein Total Protein Albumin Prealbumin Crossmatch See Detail 09/04/16 09/04/16 09/05/16 21:59 23:48 04:30 WBC RBC Hgb Hct MCH MCHC RDW Plt Count Seg Neutrophils % Seg Neuts % (Manual) Nucleated RBC % Seg Neutrophils # Seg Neutrophils # Man PT 17.2 H INR 1.41 H POC ABG pH POC ABG pCO2 POC ABG pO2 Sodium Potassium Chloride Carbon Dioxide BUN Creatinine Glucose POC Glucose 170 H 121 H Lactic Acid Calcium Total Bilirubin AST Alkaline Phosphatase Ammonia Troponin T C-Reactive Protein Total Protein Albumin Prealbumin Crossmatch 09/05/16 09/05/16 09/05/16 04:30 04:30 05:09 WBC 31.9 H RBC 3.11 L Hgb 8.5 L Hct 28.3 L D MCH 27 L MCHC RDW 21.0 H Plt Count Seg Neutrophils % Seg Neuts % (Manual) Nucleated RBC % Seg Neutrophils # Seg Neutrophils # Man PT INR POC ABG pH 7.226 L POC ABG pCO2 61.6 H POC ABG pO2 68 L Sodium 134 L Potassium 5.5 H Chloride 96.6 L Carbon Dioxide BUN 23 H Creatinine 1.6 H Glucose 116 H POC Glucose Lactic Acid Calcium 7.1 L Total Bilirubin AST Alkaline Phosphatase Ammonia Troponin T C-Reactive Protein Total Protein Albumin Prealbumin Crossmatch 09/05/16 09/05/16 09/05/16 05:33 12:08 17:32 WBC RBC Hgb Hct MCH MCHC RDW Plt Count Seg Neutrophils % Seg Neuts % (Manual) Nucleated RBC % Seg Neutrophils # Seg Neutrophils # Man PT INR POC ABG pH POC ABG pCO2 POC ABG pO2 Sodium Potassium Chloride Carbon Dioxide BUN Creatinine Glucose POC Glucose 114 H 147 H 174 H Lactic Acid Calcium Total Bilirubin AST Alkaline Phosphatase Ammonia Troponin T C-Reactive Protein Total Protein Albumin Prealbumin Crossmatch 09/06/16 09/06/16 09/06/16 03:30 03:30 03:30 WBC 25.4 H RBC 2.57 L Hgb 7.2 L Hct 22.8 L MCH MCHC RDW 20.9 H Plt Count 138 L Seg Neutrophils % Seg Neuts % (Manual) Nucleated RBC % Seg Neutrophils # Seg Neutrophils # Man PT 16.4 H INR 1.33 H POC ABG pH POC ABG pCO2 POC ABG pO2 Sodium Potassium Chloride Carbon Dioxide BUN 36 H Creatinine 1.9 H Glucose POC Glucose Lactic Acid Calcium 7.2 L Total Bilirubin AST Alkaline Phosphatase Ammonia Troponin T C-Reactive Protein Total Protein Albumin Prealbumin Crossmatch 09/06/16 09/06/16 09/06/16 11:07 12:03 14:44 WBC RBC Hgb Hct MCH MCHC RDW Plt Count Seg Neutrophils % Seg Neuts % (Manual) Nucleated RBC % Seg Neutrophils # Seg Neutrophils # Man PT INR POC ABG pH POC ABG pCO2 POC ABG pO2 Sodium Potassium Chloride Carbon Dioxide BUN Creatinine Glucose POC Glucose 61 L 55 L Lactic Acid Calcium Total Bilirubin AST Alkaline Phosphatase Ammonia Troponin T 0.080 H C-Reactive Protein Total Protein Albumin Prealbumin Crossmatch 09/06/16 09/06/16 09/07/16 21:05 23:53 03:36 WBC RBC Hgb Hct MCH MCHC RDW Plt Count Seg Neutrophils % Seg Neuts % (Manual) Nucleated RBC % Seg Neutrophils # Seg Neutrophils # Man PT INR POC ABG pH POC ABG pCO2 POC ABG pO2 Sodium Potassium Chloride Carbon Dioxide BUN Creatinine Glucose POC Glucose 140 H 178 H 243 H Lactic Acid Calcium Total Bilirubin AST Alkaline Phosphatase Ammonia Troponin T C-Reactive Protein Total Protein Albumin Prealbumin Crossmatch 09/07/16 09/07/16 09/07/16 03:42 03:42 05:04 WBC 17.3 H RBC 2.69 L Hgb 7.6 L Hct 23.8 L MCH MCHC RDW 20.5 H Plt Count 137 L Seg Neutrophils % Seg Neuts % (Manual) Nucleated RBC % Seg Neutrophils # Seg Neutrophils # Man PT INR POC ABG pH POC ABG pCO2 POC ABG pO2 Sodium Potassium 3.3 L Chloride Carbon Dioxide BUN 38 H Creatinine 1.6 H Glucose 201 H POC Glucose 241 H Lactic Acid Calcium 7.4 L Total Bilirubin AST Alkaline Phosphatase Ammonia Troponin T C-Reactive Protein Total Protein Albumin Prealbumin Crossmatch 09/07/16 09/07/16 09/07/16 11:46 17:41 23:18 WBC RBC Hgb Hct MCH MCHC RDW Plt Count Seg Neutrophils % Seg Neuts % (Manual) Nucleated RBC % Seg Neutrophils # Seg Neutrophils # Man PT INR POC ABG pH POC ABG pCO2 POC ABG pO2 Sodium Potassium Chloride Carbon Dioxide BUN Creatinine Glucose POC Glucose 313 H 227 H 116 H Lactic Acid Calcium Total Bilirubin AST Alkaline Phosphatase Ammonia Troponin T C-Reactive Protein Total Protein Albumin Prealbumin Crossmatch 09/08/16 09/08/16 09/08/16 04:00 04:00 05:15 WBC 18.4 H RBC 2.43 L Hgb 6.9 L Hct 21.5 L MCH MCHC RDW 20.5 H Plt Count 119 L Seg Neutrophils % Seg Neuts % (Manual) Nucleated RBC % Seg Neutrophils # Seg Neutrophils # Man PT INR POC ABG pH 7.458 H POC ABG pCO2 POC ABG pO2 177 H Sodium Potassium 3.5 L Chloride Carbon Dioxide BUN 37 H Creatinine 1.3 H Glucose POC Glucose Lactic Acid Calcium 7.1 L Total Bilirubin AST Alkaline Phosphatase Ammonia Troponin T C-Reactive Protein Total Protein Albumin Prealbumin Crossmatch Allied health notes reviewed: RT
[2016-09-08] MEDS ORDERED: NACL 0.9% 500 ML 500 ML IV NR (15:11)
[2016-09-08] MEDS: REGLAN IV SCH ×2 (15:34→22:04)
[2016-09-08 16:08] LABS: ISTAT Base Excess 2; ISTAT HCO3 26.5; ISTAT PCO2 38.6 (35-45); ISTAT PH 7.445 (7.35-7.45); ISTAT PO2 113 (80-105); ISTAT SO2 99; ISTAT TCO2 28
[2016-09-08] MEDS ORDERED: D50W (25GM) IV ONE (23:20)
[2016-09-09] MEDS: DUONEB 0.5 MG-3 MG/3 ML SOLN IH SCH ×4 (02:14→19:47)
[2016-09-09] MEDS: REGLAN IV SCH ×3 (05:08→22:33)
[2016-09-09] MEDS ORDERED: D50W (25GM) IV ONE (05:13)
[2016-09-09] MEDS: NOVOLOG SUB-Q SCH ×2 (05:13→12:38)
--- NOTE | 2016-09-09 08:51 | XRay Report ---
AP CHEST: HISTORY: Followup respiratory failure Lines and support devices remain in the same position. Increased congestive changes in both lungs is suspected since yesterday's exam. Small layering pleural effusions are likely present. Borderline to mild cardiomegaly and pulmonary venous congestion are stable.
[2016-09-09] MEDS: KEPPRA PO SCH ×2 (09:24→22:33)
[2016-09-09] MEDS: PROTONIX PO SCH (09:24)
[2016-09-09] MEDS: FOLVITE PO SCH (09:28)
[2016-09-09] MEDS ORDERED: NACL 0.9% 250ML 250 ML ONE (10:23)
--- NOTE | 2016-09-09 10:24 | Progress Note ---
Assessment and Plan - Patient Problems (1) Leukocytosis, unspecified Current Visit: Yes Status: Acute Qualifiers: Leukocytosis type: L Plan to address problem: Continued leukocytosis, but remains on steroids. Will re-culture sputum and blood given hypothermia. Can result from post- ictal state as well. Empiric Cefepime/ Flagyl pending culture results. Subjective Date of service: 09/09/16 Principal diagnosis: Acute Hypoxemic Hypercapnic Resp Failure; Severe Sepsis Interval history: Requiring Levophed. Minimal responsiveness. Remains intubated in ICU. Afebrile. Objective - Exam Narrative Exam: morbidly obese woman, minimal responsiveness, intubated, FiO2 30%, covered in warming blanket - Constitutional Vitals: Vital Signs Temp Pulse Resp BP Pulse Ox 98.8 F 85 33 H 106/42 96 09/09/16 08:00 09/09/16 08:30 09/09/16 08:30 09/09/16 08:30 09/09/16 08:30 Temperature -Last 24 Hours Temperature 98.8 F Temperature 98.2 F Temperature 98.0 F Temperature 96.5 F Temperature 96.5 F Temperature 96.5 F Temperature 96.5 F Temperature 97.8 F Temperature 97.3 F - EENT Eyes: no conjunctival injection ENT: other (ET tube in place) - Respiratory Respiratory: bilateral: diminished, negative: rales, rhonchi - Cardiovascular Rhythm: regular Heart Sounds: Present: S1 & S2 Extremity abnormal: edema (2+) - Gastrointestinal General gastrointestinal: Present: soft, non-distended - Integumentary Integumentary: no jaundice, no rash - Neurologic Neurologic: other (unresponsive to verbal and deep tactile stimuli) - Labs CBC & Chem 7: 09/08/16 04:00 09/08/16 04:00 Labs: Abnormal lab results 09/04/16 09/08/16 09/08/16 Range/Units 15:47 11:00 15:58 POC ABG pO2 113 H (80-105) POC Glucose (70-105) Crossmatch See Detail See Detail 09/08/16 09/09/16 Range/Units 23:16 05:02 POC ABG pO2 (80-105) POC Glucose 40 L 59 L (70-105) Crossmatch Microbiology 08/29/16 17:40 Peripheral/Venous Blood Culture - Final NO GROWTH AFTER 5 DAYS 08/29/16 17:45 Peripheral/Venous Blood Culture - Final NO GROWTH AFTER 5 DAYS 09/03/16 18:00 Stool Stool Occult Blood (JEANNETTE) - Final 08/29/16 15:37 Urine,Catheterized - Indwelling Catheter Urine Culture - Final NO GROWTH AFTER 48 HOURS 08/29/16 Unknown Tracheal Aspirate Sputum Culture - Final Active Medications Acetaminophen (Tylenol) 650 mg PO Q4H PRN PRN Reason: Pain MILD(1-3)/Fever >100.5/DUBOSE Albuterol (Proventil) 2.5 mg IH Q3HRT PRN PRN Reason: Shortness Of Breath Albuterol/Ipratropium (Duoneb 0.5 Mg-3 Mg/3 Ml Soln) 1 ampul IH Q6HRT [facility] Last Admin: 09/09/16 07:50 Dose: 1 ampul Lipase/Protease/Amylase (Pancreaze Dr 10,500 Unit) 1 each FEEDTUBE PRN PRN PRN Reason: For Clogged Feeding Tube Bisacodyl (Dulcolax) 10 mg TN QDAY PRN PRN Reason: Constipation unrelieved by MOM Ferrous Sulfate (Ferrous Sulfate) 300 mg PO QDAY [facility] Last Admin: 09/08/16 09:11 Dose: 300 mg Folic Acid (Folvite) 1 mg PO DAILY [facility] Last Admin: 09/08/16 09:11 Dose: 1 mg Hydrophilic Ointment (Vaseline Lip Therapy) 1 applic TP Q2HR PRN PRN Reason: Dry Lips Norepinephrine (Levophed Drip 4 Mg/Ns 250 Ml) 4 mg in 250 mls @ 7.5 mls/hr IV TITR KATHY; 2 MCG/MIN PRN Reason: Protocol Last Titration: 09/08/16 16:24 Dose: 1 mcg/min, 3.75 mls/hr Lorazepam 100 mg/ Sodium Chloride/ Miscellaneous Information 100 mls @ 2 mls/ hr IV TITR KATHY; 2 MG/HR PRN Reason: Protocol Last Titration: 09/07/16 14:03 Dose: 0 mg/hr, 0 mls/hr Propofol (Diprivan 10 Mg/Ml) 1,000 mg in 100 mls @ 5.688 mls/hr IV TITR KATYH; 5 MCG/KG/MIN PRN Reason: Protocol Last Titration: 09/07/16 07:00 Dose: 4 mcg/kg/min, 4.55 mls/hr Dopamine HCl/Dextrose (Intropin Drip 800 Mg/D5w 250 Ml) 800 mg in 250 mls @ 7.11 mls/hr IV TITR KATHY; 2 MCG/KG/MIN PRN Reason: Protocol Dextrose (D10w) 1,000 mls @ 75 mls/hr IV DIRECT KATHY Last Admin: 09/08/16 23:25 Dose: 75 mls/hr Insulin Aspart (Novolog) 0 units SUB-Q Q6HR AKTHY PRN Reason: Protocol Last Admin: 09/09/16 05:13 Dose: Not Given Lactulose (Cephulac) 20 gm PO Q6H PRN PRN Reason: Constipation Levetiracetam (Keppra) 500 mg PO BID [facility] Last Admin: 09/09/16 09:24 Dose: 500 mg Lorazepam (Ativan) 1 mg IV Q5MIN PRN PRN Reason: Seizures Last Admin: 09/05/16 03:05 Dose: 1 mg Magnesium Hydroxide (Milk Of Magnesia) 30 ml PO Q4H PRN PRN Reason: Constipation Methylprednisolone Sodium Succinate (Solu-Medrol) 40 mg IV Q12HR [facility] Last Admin: 09/08/16 22:03 Dose: 40 mg Metoclopramide HCl (Reglan) 10 mg IV Q8HR [facility] Last Admin: 09/09/16 05:08 Dose: 10 mg Multi-Ingred Cream/Lotion/Oil/Oint (Artificial Tears Ophth Oint) 1 applic OU Q4HR PRN PRN Reason: Dry Eye(s) Last Admin: 09/06/16 06:39 Dose: 1 applic Ondansetron HCl (Zofran) 4 mg IV Q8H PRN PRN Reason: N/V unrelieved by Reglan Pantoprazole (Protonix) 40 mg PO QDAY [facility] Last Admin: 09/09/16 09:24 Dose: 40 mg Simple Syrup (Simple Syrup) 15 ml FEEDTUBE PRN PRN PRN Reason: Hypoglycemia Last Admin: 09/06/16 13:00 Dose: 15 ml Simple Syrup (Simple Syrup) 30 ml FEEDTUBE PRN PRN PRN Reason: Hypoglycemia Last Admin: 09/06/16 15:00 Dose: 30 ml Sodium Bicarbonate (Sodium Bicarbonate) 325 mg FEEDTUBE PRN PRN PRN Reason: For Clogged Feeding Tube
--- NOTE | 2016-09-09 10:28 | Progress Note ---
Assessment and Plan Altered mental status Acute respiratory failure intubated on the vent Lactic acidosis Anemia requiring blood transfusion Obesity Decubitus ulcers Sepsis Diabetes EF 50-55% on echo 06/2016. Conservative cardiac management. Subjective Date of service: 09/09/16 Principal diagnosis: Acute Hypoxemic Hypercapnic Resp Failure; Severe Sepsis Interval history: Patient remains intubated on the vent. Abbe hugger in place. Objective Vital Signs Temp Pulse Pulse Pulse Resp Resp BP 09/09/16 08:30 85 33 H 106/42 09/09/16 08:15 71 33 H 109/43 09/09/16 08:10 66 33 H 09/09/16 08:00 98.8 F 83 28 H 116/44 09/09/16 07:50 80 62 33 H 33 H 109/46 09/09/16 07:45 63 33 H 121/52 09/09/16 07:30 96 H 31 H 117/51 09/09/16 07:15 75 33 H 111/45 09/09/16 07:00 80 31 H 115/48 09/09/16 06:45 73 27 H 111/45 09/09/16 06:30 72 28 H 104/36 09/09/16 06:15 80 28 H 109/46 09/09/16 06:00 66 28 H 111/50 09/09/16 05:45 78 29 H 109/43 09/09/16 05:30 73 28 H 115/38 09/09/16 05:15 71 21 110/48 09/09/16 05:00 70 26 H 108/40 09/09/16 04:45 70 26 H 113/46 09/09/16 04:30 58 L 26 H 122/44 09/09/16 04:15 62 27 H 115/49 09/09/16 04:00 98.2 F 75 79 24 118/41 09/09/16 03:45 74 26 H 123/50 09/09/16 03:30 72 27 H 108/56 09/09/16 03:15 81 28 H 107/65 09/09/16 03:00 73 30 H 122/57 09/09/16 02:45 66 29 H 121/56 09/09/16 02:30 70 27 H 121/56 09/09/16 02:26 72 25 H 09/09/16 02:15 68 23 119/60 05/31/17 02:00 69 27 H 113/54 09/09/16 01:45 67 27 H 103/48 09/09/16 01:30 69 24 103/48 09/09/16 01:15 59 L 23 111/57 09/09/16 01:00 76 26 H 112/50 09/09/16 00:45 72 27 H 104/47 09/09/16 00:30 52 L 27 H 112/42 09/09/16 00:15 65 27 H 112/51 09/09/16 00:00 98.0 F 68 29 H 107/52 09/08/16 23:45 70 26 H 108/50 09/08/16 23:30 66 25 H 119/46 09/08/16 23:25 63 110/48 09/08/16 23:15 55 L 24 110/48 09/08/16 23:00 65 25 H 103/45 09/08/16 22:45 60 24 102/45 09/08/16 22:30 66 27 H 100/49 09/08/16 22:15 68 26 H 113/48 09/08/16 22:00 78 26 H 108/41 09/08/16 21:45 68 25 H 111/51 09/08/16 21:34 61 26 H 102/45 09/08/16 21:30 66 20 102/45 09/08/16 21:15 65 29 H 102/43 09/08/16 21:00 68 26 H 103/49 09/08/16 20:45 70 28 H 107/48 09/08/16 20:43 58 L 09/08/16 20:30 61 28 H 111/50 09/08/16 20:16 49 L 23 117/44 09/08/16 20:00 96.5 F L 59 L 64 25 H 106/47 09/08/16 19:45 60 25 H 102/52 09/08/16 19:35 96.5 F L 09/08/16 19:30 96.5 F L 61 25 H 104/52 09/08/16 19:15 54 L 18 109/48 09/08/16 19:00 96.5 F L 70 25 H 106/47 09/08/16 18:00 74 25 H 110/49 09/08/16 17:45 65 24 109/40 05/30/17 17:30 73 24 100/46 09/08/16 17:15 69 24 92/41 09/08/16 17:00 61 26 H 105/42 09/08/16 16:45 58 L 24 110/40 09/08/16 16:30 65 25 H 100/37 09/08/16 16:15 63 22 119/54 09/08/16 16:00 97.8 F 79 25 H 118/46 09/08/16 15:45 59 L 25 H 121/41 09/08/16 15:30 70 23 113/47 09/08/16 15:15 69 28 H 118/51 09/08/16 15:00 62 26 H 114/42 09/08/16 14:46 71 103/48 09/08/16 14:45 75 27 H 110/53 09/08/16 14:30 77 26 H 103/48 09/08/16 14:18 78 16 09/08/16 14:15 71 29 H 109/52 09/08/16 14:03 76 18 09/08/16 14:00 61 20 108/49 09/08/16 13:45 62 24 126/55 09/08/16 13:30 53 L 26 H 117/52 09/08/16 13:15 65 24 123/58 09/08/16 13:00 55 L 24 122/54 09/08/16 12:45 70 25 H 119/51 09/08/16 12:30 70 25 H 118/42 09/08/16 12:15 53 L 23 118/42 09/08/16 12:00 97.3 F L 70 25 H 114/54 09/08/16 11:45 76 27 H 106/64 09/08/16 11:30 79 27 H 124/52 09/08/16 11:29 66 110/44 09/08/16 11:15 66 26 H 110/44 09/08/16 11:00 74 25 H 101/54 09/08/16 10:45 65 27 H 108/48 09/08/16 10:30 67 25 H 109/46 Pulse Ox 09/09/16 08:30 96 09/09/16 08:15 95 09/09/16 08:10 09/09/16 08:00 97 09/09/16 07:50 95 05/31/17 07:45 93 09/09/16 07:30 96 09/09/16 07:15 95 09/09/16 07:00 95 09/09/16 06:45 97 09/09/16 06:30 97 09/09/16 06:15 95 09/09/16 06:00 94 09/09/16 05:45 97 09/09/16 05:30 98 09/09/16 05:15 93 09/09/16 05:00 97 09/09/16 04:45 96 09/09/16 04:30 96 09/09/16 04:15 96 09/09/16 04:00 99 09/09/16 03:45 94 09/09/16 03:30 92 09/09/16 03:15 95 09/09/16 03:00 93 09/09/16 02:45 93 09/09/16 02:30 93 09/09/16 02:26 09/09/16 02:15 93 09/09/16 02:00 96 09/09/16 01:45 97 09/09/16 01:30 95 09/09/16 01:15 93 09/09/16 01:00 94 09/09/16 00:45 96 09/09/16 00:30 96 09/09/16 00:15 94 09/09/16 00:00 93 09/08/16 23:45 95 09/08/16 23:30 96 09/08/16 23:25 99 09/08/16 23:15 96 09/08/16 23:00 97 09/08/16 22:45 97 09/08/16 22:30 94 09/08/16 22:15 95 09/08/16 22:00 97 09/08/16 21:45 95 09/08/16 21:34 99 09/08/16 21:30 96 09/08/16 21:15 95 09/08/16 21:00 96 09/08/16 20:45 97 09/08/16 20:43 09/08/16 20:30 95 09/08/16 20:16 98 09/08/16 20:00 100 09/08/16 19:45 95 09/08/16 19:35 09/08/16 19:30 100 09/08/16 19:15 96 09/08/16 19:00 99 09/08/16 18:00 95 09/08/16 17:45 98 09/08/16 17:30 97 09/08/16 17:15 97 09/08/16 17:00 99 09/08/16 16:45 97 09/08/16 16:30 98 09/08/16 16:15 98 09/08/16 16:00 98 09/08/16 15:45 99 09/08/16 15:30 97 09/08/16 15:15 97 09/08/16 15:00 97 09/08/16 14:46 99 09/08/16 14:45 97 09/08/16 14:30 97 09/08/16 14:18 09/08/16 14:15 97 09/08/16 14:03 09/08/16 14:00 97 09/08/16 13:45 96 09/08/16 13:30 97 09/08/16 13:15 96 09/08/16 13:00 97 09/08/16 12:45 97 09/08/16 12:30 09/08/16 12:15 99 09/08/16 12:00 99 09/08/16 11:45 98 09/08/16 11:30 97 09/08/16 11:29 98 09/08/16 11:15 98 09/08/16 11:00 99 09/08/16 10:45 95 09/08/16 10:30 98 - Physical Examination General: Other (intubated on the vent) Cardiac: Positive: Reg Rate and Rhythm - Allied health notes Allied health notes reviewed: RT
[2016-09-09] MEDS: FERROUS SULFATE PO SCH (10:37)
--- NOTE | 2016-09-09 11:03 | Consultation ---
History of Present Illness Consult date: 09/09/16 Requesting physician: JALYN GARCIA Reason for Consult: Brain Chief complaint: AMS limits direct hx History of present illness: 61-year-old morbid obese woman with a past medical history of congestive heart failure, severe protein calorie malnutrition (severe wasting bilateral muslim muscle, hypothenar muscle wasting) with BMI of 81.6, functional quadriplegia ? etiology, type 2 diabetes mellitus, hypertension, multiple skin breakdown between legs and thighs who presented to the hospital via EMS with AMS on 08/29. On presentation to ED, patient was felt to be unable to maintain her airways and intubated the ER since 08/29/16. She has been managed for acute on chronic diastolic congestive heart failure, Acute on chronic respiratory failure, intubated, septic shock on Levaphed, hypercoagulable state, severe anemia s/p blood transfusion, Paroxysmal atrial fibrillation, non-ST elevated HI, Acute on chronic kidney disease likely secondary to vasomotor nephropathy, Transaminitis and uncontrolled dm. Direct Hx unable to obtained d/t AMS. CTH unable to be obtained d/t weight. Past History Past Medical History: anemia, diabetes, hypertension, hyperlipidemia, other ( Morbid Obesity) Social history: Family history: hypertension Medications and Allergies Allergies Allergy/AdvReac Type Severity Reaction Status Date / Time No Known Allergies Allergy Verified 01/11/16 00:24 Home Medications Medication Instructions Recorded Confirmed Last Taken Type AtorvaSTATin [Lipitor] 20 mg PO QDAY 01/11/16 08/31/16 07/08/16 History Folic Acid [Folvite] 1 mg PO QDAY 01/11/16 08/31/16 07/08/16 History Tizanidine HCl [tiZANidine] 2 mg PO Q8H 01/11/16 08/31/16 07/08/16 History amLODIPine [Norvasc] 10 mg PO DAILY 01/11/16 08/31/16 07/08/16 History Insulin Glargine [Lantus VIAL] 20 units SUB-Q QAMDIAB 30 Days 01/20/16 08/31/16 07/08/16 Rx Insulin Glulisine [Apidra] 6 units SUB-Q AC 30 Days 01/20/16 08/31/16 07/08/16 Rx Pantoprazole [Protonix TAB] 40 mg PO BID #60 tablet 01/21/16 08/31/16 07/08/16 Rx HYDROcodone/APAP 5-325 [[place] 1 each PO Q6HR PRN #10 tablet 02/26/16 08/31/16 Rx 5-325 mg TAB] Blood Sugar Diagnostic [Blood 1 each TIDAC #100 strip 05/01/16 08/31/1607/08 Rx Glucose Test Strip] Gabapentin 300 mg PO TID 08/31/16 08/31/16 Unknown History Active Meds: Active Medications Acetaminophen (Tylenol) 650 mg PO Q4H PRN PRN Reason: Pain MILD(1-3)/Fever >100.5/DUBOSE Albuterol (Proventil) 2.5 mg IH Q3HRT PRN PRN Reason: Shortness Of Breath Albuterol/Ipratropium (Duoneb 0.5 Mg-3 Mg/3 Ml Soln) 1 ampul IH Q6HRT [facility] Last Admin: 09/09/16 07:50 Dose: 1 ampul Lipase/Protease/Amylase (Pancreaze Dr 10,500 Unit) 1 each FEEDTUBE PRN PRN PRN Reason: For Clogged Feeding Tube Bisacodyl (Dulcolax) 10 mg PA QDAY PRN PRN Reason: Constipation unrelieved by MOM Ferrous Sulfate (Ferrous Sulfate) 300 mg PO QDAY [facility] Last Admin: 09/08/16 09:11 Dose: 300 mg Folic Acid (Folvite) 1 mg PO DAILY [facility] Last Admin: 09/08/16 09:11 Dose: 1 mg Hydrophilic Ointment (Vaseline Lip Therapy) 1 applic TP Q2HR PRN PRN Reason: Dry Lips Norepinephrine (Levophed Drip 4 Mg/Ns 250 Ml) 4 mg in 250 mls @ 7.5 mls/hr IV TITR KATHY; 2 MCG/MIN PRN Reason: Protocol Last Titration: 09/08/16 16:24 Dose: 1 mcg/min, 3.75 mls/hr Lorazepam 100 mg/ Sodium Chloride/ Miscellaneous Information 100 mls @ 2 mls/ hr IV TITR KATHY; 2 MG/HR PRN Reason: Protocol Last Titration: 09/07/16 14:03 Dose: 0 mg/hr, 0 mls/hr Propofol (Diprivan 10 Mg/Ml) 1,000 mg in 100 mls @ 5.688 mls/hr IV TITR KATHY; 5 MCG/KG/MIN PRN Reason: Protocol Last Titration: 09/07/16 07:00 Dose: 4 mcg/kg/min, 4.55 mls/hr Dopamine HCl/Dextrose (Intropin Drip 800 Mg/D5w 250 Ml) 800 mg in 250 mls @ 7.11 mls/hr IV TITR KATHY; 2 MCG/KG/MIN PRN Reason: Protocol Dextrose (D10w) 1,000 mls @ 75 mls/hr IV DIRECT [facility] Last Admin: 09/08/16 23:25 Dose: 75 mls/hr Insulin Aspart (Novolog) 0 units SUB-Q Q6HR KATHY PRN Reason: Protocol Last Admin: 09/09/16 05:13 Dose: Not Given Lactulose (Cephulac) 20 gm PO Q6H PRN PRN Reason: Constipation Levetiracetam (Keppra) 500 mg PO BID [facility] Last Admin: 09/09/16 09:24 Dose: 500 mg Lorazepam (Ativan) 1 mg IV Q5MIN PRN PRN Reason: Seizures Last Admin: 09/05/16 03:05 Dose: 1 mg Magnesium Hydroxide (Milk Of Magnesia) 30 ml PO Q4H PRN PRN Reason: Constipation Methylprednisolone Sodium Succinate (Solu-Medrol) 40 mg IV Q12HR [facility] Last Admin: 09/08/16 22:03 Dose: 40 mg Metoclopramide HCl (Reglan) 10 mg IV Q8HR [facility] Last Admin: 09/09/16 05:08 Dose: 10 mg Multi-Ingred Cream/Lotion/Oil/Oint (Artificial Tears Ophth Oint) 1 applic OU Q4HR PRN PRN Reason: Dry Eye(s) Last Admin: 09/06/16 06:39 Dose: 1 applic Ondansetron HCl (Zofran) 4 mg IV Q8H PRN PRN Reason: N/V unrelieved by Reglan Pantoprazole (Protonix) 40 mg PO QDAY [facility] Last Admin: 09/09/16 09:24 Dose: 40 mg Simple Syrup (Simple Syrup) 15 ml FEEDTUBE PRN PRN PRN Reason: Hypoglycemia Last Admin: 09/06/16 13:00 Dose: 15 ml Simple Syrup (Simple Syrup) 30 ml FEEDTUBE PRN PRN PRN Reason: Hypoglycemia Last Admin: 09/06/16 15:00 Dose: 30 ml Sodium Bicarbonate (Sodium Bicarbonate) 325 mg FEEDTUBE PRN PRN PRN Reason: For Clogged Feeding Tube Review of Systems ROS unobtainable: due to endotracheal tube, due to mental status Physical Examination - Vital Signs Vital Signs: Vital Signs Pulse Ox 100 08/29/16 16:06 - Constitutional General appearance: acutely ill, chronically ill - EENT EENT: Present: ATNC, PERRL, mucous membranes dry - Respiratory Respiratory: Present: decreased breath sounds - Cardiovascular Cardiovascular: Present: regular rate Extremities: Present: no clubbing, cyanosis, no inflammation, no ischemia or petechiae - Gastrointestinal Gastrointestinal: Present: normoactive bowel sounds, soft, non-distended - Integumentary Integumentary: Present: normal - Neurologic Cranial nerve examination: PERRL, face symmetric, other (sluggish intermittent corneal reflex, neg OCR but present gag) Speech examination: other (no speech intubated, not following commands) Detailed motor examination: other (UE no clear movement to proximal pain, LE triple flexion) Reflex and gait examination: Babinski's sign (b/l) Reflexes: 0: ankle, knee, 1+: bicep - Musculoskeletal Musculoskeletal: Present: no fluid collection, no pain Results - Laboratory Findings CBC and BMP: 09/08/16 04:00 09/08/16 04:00 Abnormal Lab Findings: Abnormal Labs 08/29/16 08/30/16 08/30/16 21:59 00:16 05:39 WBC RBC Hgb Hct MCH MCHC RDW Plt Count Seg Neutrophils % Seg Neuts % (Manual) Nucleated RBC % Seg Neutrophils # Seg Neutrophils # Man PT INR POC ABG pH POC ABG pCO2 POC ABG pO2 Sodium Potassium Chloride Carbon Dioxide BUN Creatinine Glucose POC Glucose 106 H 128 H Lactic Acid Calcium Total Bilirubin AST Alkaline Phosphatase Ammonia Troponin T C-Reactive Protein Total Protein Albumin Prealbumin 0.120 L Crossmatch 08/30/16 08/30/16 08/30/16 10:30 10:30 11:12 WBC 11.1 H RBC 3.16 L Hgb 8.7 L Hct 29.9 L MCH MCHC 29 L RDW 25.0 H Plt Count Seg Neutrophils % 78.6 H Seg Neuts % (Manual) Nucleated RBC % Seg Neutrophils # 8.7 H Seg Neutrophils # Man PT INR POC ABG pH POC ABG pCO2 POC ABG pO2 Sodium 135 L Potassium Chloride Carbon Dioxide 20 L BUN Creatinine 1.5 H Glucose 148 H POC Glucose 142 H Lactic Acid Calcium 7.2 L Total Bilirubin 1.30 H AST 143 H Alkaline Phosphatase 392 H Ammonia Troponin T C-Reactive Protein Total Protein 6.1 L Albumin 1.2 L Prealbumin Crossmatch 08/30/16 08/30/16 08/30/16 17:41 18:03 18:18 WBC RBC Hgb Hct MCH MCHC RDW Plt Count Seg Neutrophils % Seg Neuts % (Manual) Nucleated RBC % Seg Neutrophils # Seg Neutrophils # Man PT INR POC ABG pH 7.316 L POC ABG pCO2 POC ABG pO2 44 L 59 L Sodium Potassium Chloride Carbon Dioxide BUN Creatinine Glucose POC Glucose 150 H Lactic Acid Calcium Total Bilirubin AST Alkaline Phosphatase Ammonia Troponin T C-Reactive Protein Total Protein Albumin Prealbumin Crossmatch 08/30/16 08/30/16 08/31/16 22:20 22:20 00:11 WBC RBC Hgb Hct MCH MCHC RDW Plt Count Seg Neutrophils % Seg Neuts % (Manual) Nucleated RBC % Seg Neutrophils # Seg Neutrophils # Man PT INR POC ABG pH POC ABG pCO2 POC ABG pO2 Sodium Potassium Chloride Carbon Dioxide BUN Creatinine Glucose POC Glucose 133 H Lactic Acid 2.30 H* Calcium Total Bilirubin AST Alkaline Phosphatase Ammonia Troponin T C-Reactive Protein 10.20 H Total Protein Albumin Prealbumin Crossmatch 08/31/16 08/31/16 08/31/16 04:20 04:20 04:20 WBC 18.3 H RBC 3.19 L Hgb 8.8 L Hct 30.0 L MCH 27 L MCHC 29 L RDW 23.9 H Plt Count Seg Neutrophils % Seg Neuts % (Manual) Nucleated RBC % Seg Neutrophils # Seg Neutrophils # Man PT 16.8 H INR 1.37 H POC ABG pH POC ABG pCO2 POC ABG pO2 Sodium 136 L Potassium Chloride Carbon Dioxide 19 L BUN Creatinine 1.5 H Glucose 125 H POC Glucose Lactic Acid Calcium 7.0 L Total Bilirubin 1.50 H AST 131 H Alkaline Phosphatase 431 H Ammonia Troponin T C-Reactive Protein Total Protein 6.2 L Albumin 1.2 L Prealbumin Crossmatch 08/31/16 08/31/16 08/31/16 04:20 05:22 05:24 WBC RBC Hgb Hct MCH MCHC RDW Plt Count Seg Neutrophils % Seg Neuts % (Manual) Nucleated RBC % Seg Neutrophils # Seg Neutrophils # Man PT INR POC ABG pH POC ABG pCO2 POC ABG pO2 142 H Sodium Potassium Chloride Carbon Dioxide BUN Creatinine Glucose POC Glucose 123 H Lactic Acid Calcium Total Bilirubin AST Alkaline Phosphatase Ammonia 70.0 H Troponin T C-Reactive Protein Total Protein Albumin Prealbumin Crossmatch 08/31/16 08/31/16 08/31/16 12:10 15:45 17:38 WBC RBC Hgb Hct MCH MCHC RDW Plt Count Seg Neutrophils % Seg Neuts % (Manual) Nucleated RBC % Seg Neutrophils # Seg Neutrophils # Man PT INR POC ABG pH POC ABG pCO2 POC ABG pO2 Sodium 136 L Potassium Chloride Carbon Dioxide 21 L BUN Creatinine 1.5 H Glucose 160 H POC Glucose 147 H 151 H Lactic Acid Calcium 6.9 L Total Bilirubin AST Alkaline Phosphatase Ammonia Troponin T 0.109 H* D C-Reactive Protein Total Protein Albumin Prealbumin Crossmatch 09/01/16 09/01/16 09/01/16 00:09 04:00 04:00 WBC 14.8 H RBC 2.89 L Hgb 7.8 L Hct 27.2 L MCH 27 L MCHC 29 L RDW 24.4 H Plt Count Seg Neutrophils % Seg Neuts % (Manual) Nucleated RBC % Seg Neutrophils # Seg Neutrophils # Man PT 18.2 H INR 1.51 H POC ABG pH POC ABG pCO2 POC ABG pO2 Sodium Potassium Chloride Carbon Dioxide BUN Creatinine Glucose POC Glucose 192 H Lactic Acid Calcium Total Bilirubin AST Alkaline Phosphatase Ammonia Troponin T C-Reactive Protein Total Protein Albumin Prealbumin Crossmatch 09/01/16 09/01/16 09/01/16 04:00 05:28 11:28 WBC RBC Hgb Hct MCH MCHC RDW Plt Count Seg Neutrophils % Seg Neuts % (Manual) Nucleated RBC % Seg Neutrophils # Seg Neutrophils # Man PT INR POC ABG pH POC ABG pCO2 POC ABG pO2 Sodium Potassium Chloride Carbon Dioxide 20 L BUN Creatinine 1.6 H Glucose 183 H POC Glucose 189 H 207 H Lactic Acid Calcium 6.9 L Total Bilirubin 1.30 H AST 138 H Alkaline Phosphatase 520 H Ammonia Troponin T C-Reactive Protein Total Protein 6.1 L Albumin 1.2 L Prealbumin Crossmatch 09/01/16 09/01/16 09/02/16 16:56 23:49 05:00 WBC RBC Hgb Hct MCH MCHC RDW Plt Count Seg Neutrophils % Seg Neuts % (Manual) Nucleated RBC % Seg Neutrophils # Seg Neutrophils # Cristian PT 18.0 H INR 1.49 H POC ABG pH POC ABG pCO2 POC ABG pO2 Sodium Potassium Chloride Carbon Dioxide BUN Creatinine Glucose POC Glucose 250 H 307 H Lactic Acid Calcium Total Bilirubin AST Alkaline Phosphatase Ammonia Troponin T C-Reactive Protein Total Protein Albumin Prealbumin Crossmatch 09/02/16 09/02/16 09/02/16 05:00 05:00 05:45 WBC 12.3 H RBC 2.57 L Hgb 7.1 L Hct 23.4 L MCH MCHC RDW 23.9 H Plt Count Seg Neutrophils % Seg Neuts % (Manual) 72.0 H Nucleated RBC % 25.0 H Seg Neutrophils # Seg Neutrophils # Cristian 8.9 H PT INR POC ABG pH POC ABG pCO2 POC ABG pO2 Sodium Potassium Chloride Carbon Dioxide BUN Creatinine 1.4 H Glucose 299 H POC Glucose 327 H Lactic Acid Calcium 7.0 L Total Bilirubin AST Alkaline Phosphatase Ammonia Troponin T C-Reactive Protein Total Protein Albumin Prealbumin Crossmatch 09/02/16 09/02/16 09/02/16 12:22 17:22 23:24 WBC RBC Hgb Hct MCH MCHC RDW Plt Count Seg Neutrophils % Seg Neuts % (Manual) Nucleated RBC % Seg Neutrophils # Seg Neutrophils # Cristian PT INR POC ABG pH POC ABG pCO2 POC ABG pO2 Sodium Potassium Chloride Carbon Dioxide BUN Creatinine Glucose POC Glucose 310 H 358 H 286 H Lactic Acid Calcium Total Bilirubin AST Alkaline Phosphatase Ammonia Troponin T C-Reactive Protein Total Protein Albumin Prealbumin Crossmatch 09/03/16 09/03/16 09/03/16 04:10 04:10 04:10 WBC 11.8 H RBC 2.29 L Hgb 6.1 L Hct 21.0 L MCH 27 L MCHC 29 L RDW 24.1 H Plt Count Seg Neutrophils % Seg Neuts % (Manual) Nucleated RBC % Seg Neutrophils # Seg Neutrophils # Cristian PT 17.6 H INR 1.45 H POC ABG pH POC ABG pCO2 POC ABG pO2 Sodium Potassium Chloride Carbon Dioxide BUN Creatinine 1.4 H Glucose 301 H POC Glucose Lactic Acid Calcium 7.0 L Total Bilirubin AST Alkaline Phosphatase Ammonia Troponin T C-Reactive Protein Total Protein Albumin Prealbumin Crossmatch 09/03/16 09/03/16 09/03/16 05:59 11:36 17:42 WBC RBC Hgb Hct MCH MCHC RDW Plt Count Seg Neutrophils % Seg Neuts % (Manual) Nucleated RBC % Seg Neutrophils # Seg Neutrophils # Man PT INR POC ABG pH POC ABG pCO2 POC ABG pO2 Sodium Potassium Chloride Carbon Dioxide BUN Creatinine Glucose POC Glucose 351 H 285 H 259 H Lactic Acid Calcium Total Bilirubin AST Alkaline Phosphatase Ammonia Troponin T C-Reactive Protein Total Protein Albumin Prealbumin Crossmatch 09/03/16 09/04/16 09/04/16 23:00 04:27 05:36 WBC RBC Hgb Hct MCH MCHC RDW Plt Count Seg Neutrophils % Seg Neuts % (Manual) Nucleated RBC % Seg Neutrophils # Seg Neutrophils # Man PT INR POC ABG pH 7.544 H POC ABG pCO2 30.8 L POC ABG pO2 78 L Sodium Potassium Chloride Carbon Dioxide BUN Creatinine Glucose POC Glucose 192 H 228 H Lactic Acid Calcium Total Bilirubin AST Alkaline Phosphatase Ammonia Troponin T C-Reactive Protein Total Protein Albumin Prealbumin Crossmatch 09/04/16 09/04/16 09/04/16 06:37 06:37 06:39 WBC 21.0 H RBC 2.22 L Hgb 6.0 L Hct 20.1 L MCH 27 L MCHC RDW 24.3 H Plt Count Seg Neutrophils % Seg Neuts % (Manual) Nucleated RBC % Seg Neutrophils # Seg Neutrophils # Man PT 16.8 H INR 1.37 H POC ABG pH POC ABG pCO2 POC ABG pO2 Sodium Potassium Chloride Carbon Dioxide BUN Creatinine 1.4 H Glucose 201 H POC Glucose Lactic Acid Calcium 7.1 L Total Bilirubin AST Alkaline Phosphatase Ammonia Troponin T C-Reactive Protein Total Protein Albumin Prealbumin Crossmatch 09/04/16 09/04/16 09/04/16 12:14 15:47 17:41 WBC RBC Hgb Hct MCH MCHC RDW Plt Count Seg Neutrophils % Seg Neuts % (Manual) Nucleated RBC % Seg Neutrophils # Seg Neutrophils # Man PT INR POC ABG pH POC ABG pCO2 POC ABG pO2 Sodium Potassium Chloride Carbon Dioxide BUN Creatinine Glucose POC Glucose 176 H 218 H Lactic Acid Calcium Total Bilirubin AST Alkaline Phosphatase Ammonia Troponin T C-Reactive Protein Total Protein Albumin Prealbumin Crossmatch See Detail 09/04/16 09/04/16 09/05/16 21:59 23:48 04:30 WBC RBC Hgb Hct MCH MCHC RDW Plt Count Seg Neutrophils % Seg Neuts % (Manual) Nucleated RBC % Seg Neutrophils # Seg Neutrophils # Cristian PT 17.2 H INR 1.41 H POC ABG pH POC ABG pCO2 POC ABG pO2 Sodium Potassium Chloride Carbon Dioxide BUN Creatinine Glucose POC Glucose 170 H 121 H Lactic Acid Calcium Total Bilirubin AST Alkaline Phosphatase Ammonia Troponin T C-Reactive Protein Total Protein Albumin Prealbumin Crossmatch 09/05/16 09/05/16 09/05/16 04:30 04:30 05:09 WBC 31.9 H RBC 3.11 L Hgb 8.5 L Hct 28.3 L D MCH 27 L MCHC RDW 21.0 H Plt Count Seg Neutrophils % Seg Neuts % (Manual) Nucleated RBC % Seg Neutrophils # Seg Neutrophils # Cristian PT INR POC ABG pH 7.226 L POC ABG pCO2 61.6 H POC ABG pO2 68 L Sodium 134 L Potassium 5.5 H Chloride 96.6 L Carbon Dioxide BUN 23 H Creatinine 1.6 H Glucose 116 H POC Glucose Lactic Acid Calcium 7.1 L Total Bilirubin AST Alkaline Phosphatase Ammonia Troponin T C-Reactive Protein Total Protein Albumin Prealbumin Crossmatch 09/05/16 09/05/16 09/05/16 05:33 12:08 17:32 WBC RBC Hgb Hct MCH MCHC RDW Plt Count Seg Neutrophils % Seg Neuts % (Manual) Nucleated RBC % Seg Neutrophils # Seg Neutrophils # Man PT INR POC ABG pH POC ABG pCO2 POC ABG pO2 Sodium Potassium Chloride Carbon Dioxide BUN Creatinine Glucose POC Glucose 114 H 147 H 174 H Lactic Acid Calcium Total Bilirubin AST Alkaline Phosphatase Ammonia Troponin T C-Reactive Protein Total Protein Albumin Prealbumin Crossmatch 09/06/16 09/06/16 09/06/16 03:30 03:30 03:30 WBC 25.4 H RBC 2.57 L Hgb 7.2 L Hct 22.8 L MCH MCHC RDW 20.9 H Plt Count 138 L Seg Neutrophils % Seg Neuts % (Manual) Nucleated RBC % Seg Neutrophils # Seg Neutrophils # Man PT 16.4 H INR 1.33 H POC ABG pH POC ABG pCO2 POC ABG pO2 Sodium Potassium Chloride Carbon Dioxide BUN 36 H Creatinine 1.9 H Glucose POC Glucose Lactic Acid Calcium 7.2 L Total Bilirubin AST Alkaline Phosphatase Ammonia Troponin T C-Reactive Protein Total Protein Albumin Prealbumin Crossmatch 09/06/16 09/06/16 09/06/16 11:07 12:03 14:44 WBC RBC Hgb Hct MCH MCHC RDW Plt Count Seg Neutrophils % Seg Neuts % (Manual) Nucleated RBC % Seg Neutrophils # Seg Neutrophils # Man PT INR POC ABG pH POC ABG pCO2 POC ABG pO2 Sodium Potassium Chloride Carbon Dioxide BUN Creatinine Glucose POC Glucose 61 L 55 L Lactic Acid Calcium Total Bilirubin AST Alkaline Phosphatase Ammonia Troponin T 0.080 H C-Reactive Protein Total Protein Albumin Prealbumin Crossmatch 09/06/16 09/06/16 09/07/16 21:05 23:53 03:36 WBC RBC Hgb Hct MCH MCHC RDW Plt Count Seg Neutrophils % Seg Neuts % (Manual) Nucleated RBC % Seg Neutrophils # Seg Neutrophils # Man PT INR POC ABG pH POC ABG pCO2 POC ABG pO2 Sodium Potassium Chloride Carbon Dioxide BUN Creatinine Glucose POC Glucose 140 H 178 H 243 H Lactic Acid Calcium Total Bilirubin AST Alkaline Phosphatase Ammonia Troponin T C-Reactive Protein Total Protein Albumin Prealbumin Crossmatch 09/07/16 09/07/16 09/07/16 03:42 03:42 05:04 WBC 17.3 H RBC 2.69 L Hgb 7.6 L Hct 23.8 L MCH MCHC RDW 20.5 H Plt Count 137 L Seg Neutrophils % Seg Neuts % (Manual) Nucleated RBC % Seg Neutrophils # Seg Neutrophils # Man PT INR POC ABG pH POC ABG pCO2 POC ABG pO2 Sodium Potassium 3.3 L Chloride Carbon Dioxide BUN 38 H Creatinine 1.6 H Glucose 201 H POC Glucose 241 H Lactic Acid Calcium 7.4 L Total Bilirubin AST Alkaline Phosphatase Ammonia Troponin T C-Reactive Protein Total Protein Albumin Prealbumin Crossmatch 09/07/16 09/07/16 09/07/16 11:46 17:41 23:18 WBC RBC Hgb Hct MCH MCHC RDW Plt Count Seg Neutrophils % Seg Neuts % (Manual) Nucleated RBC % Seg Neutrophils # Seg Neutrophils # Man PT INR POC ABG pH POC ABG pCO2 POC ABG pO2 Sodium Potassium Chloride Carbon Dioxide BUN Creatinine Glucose POC Glucose 313 H 227 H 116 H Lactic Acid Calcium Total Bilirubin AST Alkaline Phosphatase Ammonia Troponin T C-Reactive Protein Total Protein Albumin Prealbumin Crossmatch 09/08/16 09/08/16 09/08/16 04:00 04:00 05:15 WBC 18.4 H RBC 2.43 L Hgb 6.9 L Hct 21.5 L MCH MCHC RDW 20.5 H Plt Count 119 L Seg Neutrophils % Seg Neuts % (Manual) Nucleated RBC % Seg Neutrophils # Seg Neutrophils # Man PT INR POC ABG pH 7.458 H POC ABG pCO2 POC ABG pO2 177 H Sodium Potassium 3.5 L Chloride Carbon Dioxide BUN 37 H Creatinine 1.3 H Glucose POC Glucose Lactic Acid Calcium 7.1 L Total Bilirubin AST Alkaline Phosphatase Ammonia Troponin T C-Reactive Protein Total Protein Albumin Prealbumin Crossmatch 09/08/16 09/08/16 09/08/16 11:00 15:58 23:16 WBC RBC Hgb Hct MCH MCHC RDW Plt Count Seg Neutrophils % Seg Neuts % (Manual) Nucleated RBC % Seg Neutrophils # Seg Neutrophils # Man PT INR POC ABG pH POC ABG pCO2 POC ABG pO2 113 H Sodium Potassium Chloride Carbon Dioxide BUN Creatinine Glucose POC Glucose 40 L Lactic Acid Calcium Total Bilirubin AST Alkaline Phosphatase Ammonia Troponin T C-Reactive Protein Total Protein Albumin Prealbumin Crossmatch See Detail 09/09/16 05:02 WBC RBC Hgb Hct MCH MCHC RDW Plt Count Seg Neutrophils % Seg Neuts % (Manual) Nucleated RBC % Seg Neutrophils # Seg Neutrophils # Man PT INR POC ABG pH POC ABG pCO2 POC ABG pO2 Sodium Potassium Chloride Carbon Dioxide BUN Creatinine Glucose POC Glucose 59 L Lactic Acid Calcium Total Bilirubin AST Alkaline Phosphatase Ammonia Troponin T C-Reactive Protein Total Protein Albumin Prealbumin Crossmatch Assessment and Plan 61-year-old morbid obese woman with a past medical history of CHF, severe protein calorie malnutrition, morbid obesity with BMI of 81.[address]/MRI, functional quadriplegia ? etiology, DM2, HTN, admitted w/ AMS on 08/29 s.p intubation managed for acute on chronic diastolic congestive heart failure, Acute on chronic respiratory failure, septic shock on Levaphed, hypercoagulable state, severe anemia s/p blood transfusion, paroxysmal atrial fibrillation but not placed on AC, NSTEMI, and Acute on chronic kidney disease likely secondary to vasomotor nephropathy, Transaminitis and uncontrolled dm. Direct Hx unable to obtained d/t AMS. CTH unable to be obtained d/t weight. I have been asked to eval for brain but pt breathes over vent and has intact Pupillary reflex to light and gag reflex, therefore she is be definition not brain . EEG mild-mod diffuse slowing no IEDs/Sz. NH4 elevated prior in admit but normal on 09/07 Recommendations: 1. Unable to obtain CTH/MRI Brain d/t weight 2. Check serum TSH and correct as necessary 3. Cont Infectious work up/medical management for UTI, PNA, cellulitis, bacteremia, etc. 4. Avoid hyponatremia, hypo/hyper-calcemia, hypo/hyperglycemia, acidosis, hypoxia/hypoxemia, hypercarbia/hypercapnia 5. Avoid institution of any psychoactive medications (e.g. antihistamines, anticholinergics, BZD, hypnotics, opiates) as able unless low doses of low potency antipsychotic needed for behavioral issues complicating medical care 6. Specific neurologic assessment of likelihood of prognosis back to baseline @ this point is limited as there is no active primary neurologic issue ongoing, and therefore prognosis will be completely secondary to any potential progress patient is able to make from multiple ongoing critical medical issues as above. 7. Thiamine/Folate/CIWA protocol accordingly for any hx obtained to suggest EtOH withdrawal 8. Cont home meds-there is no neurologic indication to change 9. We can revisit as needed.
--- NOTE | 2016-09-09 11:18 | Progress Note ---
Assessment and Plan (1) Respiratory failure Current Visit: Yes Status: Acute Qualifiers: Chronicity: C Respiratory failure complication: R Plan to address problem: - On PSV at 10/5 and tolerating decently - get ABG to assess ventilation - VAP bundle addressed - continue to Wean FIO2 for O2 sats>92% - continue VTE prophylaxis (SCD's re: thrombocytopenia) - continue Stress ulcer prophylaxis (Pantoprazole) - continuing sedation vacations while watching for any obvious seizure activity - continue Lung protective strategies - she needs a tracheostomy and we will place a consult (2) Shock Current Visit: Yes Status: Acute Plan to address problem: - Treated as septic shock secondary to HCAP - on low dose levophed - continue strict glycemic control - completed AB's course; trending WBC - ID following - On steroid therapy for possible COPD with AE (but also possible relative adrenal insufficiency)(weaning slowly) - will add midodrine (3) Acute on chronic diastolic (congestive) heart failure Current Visit: No Status: Acute Plan to address problem: - Documented EF 55% - CVP's 8-9; diuretics on hold - Continue to monitoring renal function and electrolyte profile closely - Monitor urine output, electrolyte profile (4) Altered mental status Current Visit: Yes Status: Acute Qualifiers: Altered mental status type: unspecified Coma depth: C Coma timing: C Qualified Code(s): R41.82 - Altered mental status, unspecified Plan to address problem: - Neurology following - on keppra - weaned off ativan and will use prn now - follow TSH level (5) Morbid obesity Current Visit: Yes Status: Acute Qualifiers: Obesity type: unspecified obesity type Qualified Code(s): E66.01 - Morbid ( severe) obesity due to excess calories - weight loss strategies once more stable - caloric intake per global analytics head at this point (6) Anemia Current Visit: Yes Status: Acute Qualifiers: Anemia type: unspecified type Iron deficiency anemia type: I Vitamin B12 deficiency anemia type: V Folate deficiency anemia type: F Bone marrow failure anemia type: B Hemolytic anemia type: H Other causes of anemia: O Qualified Code(s): D64.9 - Anemia, unspecified Plan to address problem: - no more coffee grounds noted - continuing PPI therapy - beginning reglan today - resumed tube feeding (7) Status epilepticus Current Visit: Yes Status: Acute Plan to address problem: - Continue AEDs - Neurology following - no obvious clinical seizure activity (8) 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 - This could be secondary to an intra-cranial process, however unable to obtain neuro-imaging, patient's weight exceeds allowable maximum (9) Discharge planning issues Current Visit: Yes Status: Acute Plan to address problem: - Continue current care. - need to determine appropriate power of erisa attorney / legal healthcare financial service representative prior to any tentative withdrawal of care - discussed with relatives in room that a tracheostomy will be indicated if further care desired in light especially of altered mental status - son came by and signed DNR order however no concencus on hospice care / withdrawal ..she remains critically ill on life sustaining interventions including MVS and at high risk for further deterioration including ....34' CCT Subjective Date of service: 09/09/16 Principal diagnosis: Acute Hypoxemic Hypercapnic Resp Failure; Severe Sepsis Interval history: Seen and examined at bedside; 24 hour events reviewed; nursing and respiratory care staff consulted; no adverse overnight events reported to me; remains on MVS ; AMS is persistent; tolerating PSV trials well so far; on low dose levophed; no emesis or overt aspiration and no significant gastric residuals Objective Vital Signs - 12hr 09/08/16 09/08/16 09/08/16 23:25 23:30 23:45 Temperature Pulse Rate 63 66 70 Pulse Rate [ Anterior Bilateral Throughout] Pulse Rate [ From Monitor] Respiratory 25 H 26 H Rate Respiratory Rate [Anterior Bilateral Throughout] Blood Pressure 110/48 119/46 108/50 O2 Sat by Pulse 99 96 95 Oximetry 09/09/16 09/09/16 09/09/16 00:00 00:15 00:30 Temperature 98.0 F Pulse Rate 68 65 52 L Pulse Rate [ Anterior Bilateral Throughout] Pulse Rate [ From Monitor] Respiratory 29 H 27 H 27 H Rate Respiratory Rate [Anterior Bilateral Throughout] Blood Pressure 107/52 112/51 112/42 O2 Sat by Pulse 93 94 96 Oximetry 09/09/16 09/09/16 09/09/16 00:45 01:00 01:15 Temperature Pulse Rate 72 76 59 L Pulse Rate [ Anterior Bilateral Throughout] Pulse Rate [ From Monitor] Respiratory 27 H 26 H 23 Rate Respiratory Rate [Anterior Bilateral Throughout] Blood Pressure 104/47 112/50 111/57 O2 Sat by Pulse 96 94 93 Oximetry 09/09/16 09/09/16 09/09/16 01:30 01:45 02:00 Temperature Pulse Rate 69 67 69 Pulse Rate [ Anterior Bilateral Throughout] Pulse Rate [ From Monitor] Respiratory 24 27 H 27 H Rate Respiratory Rate [Anterior Bilateral Throughout] Blood Pressure 103/48 103/48 113/54 O2 Sat by Pulse 95 97 96 Oximetry 09/09/16 09/09/16 09/09/16 02:15 02:26 02:30 Temperature Pulse Rate 68 70 Pulse Rate [ 72 Anterior Bilateral Throughout] Pulse Rate [ From Monitor] Respiratory 23 27 H Rate Respiratory 25 H Rate [Anterior Bilateral Throughout] Blood Pressure 119/60 121/56 O2 Sat by Pulse 93 93 Oximetry 09/09/16 09/09/16 09/09/16 02:45 03:00 03:15 Temperature Pulse Rate 66 73 81 Pulse Rate [ Anterior Bilateral Throughout] Pulse Rate [ From Monitor] Respiratory 29 H 30 H 28 H Rate Respiratory Rate [Anterior Bilateral Throughout] Blood Pressure 121/56 122/57 107/65 O2 Sat by Pulse 93 93 95 Oximetry 09/09/16 09/09/16 09/09/16 03:30 03:45 04:00 Temperature 98.2 F Pulse Rate 72 74 75 Pulse Rate [ Anterior Bilateral Throughout] Pulse Rate [ 79 From Monitor] Respiratory 27 H 26 H 24 Rate Respiratory Rate [Anterior Bilateral Throughout] Blood Pressure 108/56 123/50 118/41 O2 Sat by Pulse 92 94 99 Oximetry 09/09/16 09/09/16 09/09/16 04:15 04:30 04:45 Temperature Pulse Rate 62 58 L 70 Pulse Rate [ Anterior Bilateral Throughout] Pulse Rate [ From Monitor] Respiratory 27 H 26 H 26 H Rate Respiratory Rate [Anterior Bilateral Throughout] Blood Pressure 115/49 122/44 113/46 O2 Sat by Pulse 96 96 96 Oximetry 09/09/16 09/09/16 09/09/16 05:00 05:15 05:30 Temperature Pulse Rate 70 71 73 Pulse Rate [ Anterior Bilateral Throughout] Pulse Rate [ From Monitor] Respiratory 26 H 21 28 H Rate Respiratory Rate [Anterior Bilateral Throughout] Blood Pressure 108/40 110/48 115/38 O2 Sat by Pulse 97 93 98 Oximetry 09/09/16 09/09/16 09/09/16 05:45 06:00 06:15 Temperature Pulse Rate 78 66 80 Pulse Rate [ Anterior Bilateral Throughout] Pulse Rate [ From Monitor] Respiratory 29 H 28 H 28 H Rate Respiratory Rate [Anterior Bilateral Throughout] Blood Pressure 109/43 111/50 109/46 O2 Sat by Pulse 97 94 95 Oximetry 09/09/16 09/09/16 09/09/16 06:30 06:45 07:00 Temperature Pulse Rate 72 73 80 Pulse Rate [ Anterior Bilateral Throughout] Pulse Rate [ From Monitor] Respiratory 28 H 27 H 31 H Rate Respiratory Rate [Anterior Bilateral Throughout] Blood Pressure 104/36 111/45 115/48 O2 Sat by Pulse 97 97 95 Oximetry 09/09/16 09/09/16 09/09/16 07:15 07:30 07:45 Temperature Pulse Rate 75 96 H 63 Pulse Rate [ Anterior Bilateral Throughout] Pulse Rate [ From Monitor] Respiratory 33 H 31 H 33 H Rate Respiratory Rate [Anterior Bilateral Throughout] Blood Pressure 111/45 117/51 121/52 O2 Sat by Pulse 95 96 93 Oximetry 09/09/16 09/09/16 09/09/16 07:50 08:00 08:10 Temperature 98.8 F Pulse Rate 80 83 Pulse Rate [ 62 66 Anterior Bilateral Throughout] Pulse Rate [ From Monitor] Respiratory 33 H 28 H Rate Respiratory 33 H 33 H Rate [Anterior Bilateral Throughout] Blood Pressure 109/46 116/44 O2 Sat by Pulse 95 97 Oximetry 09/09/16 09/09/16 09/09/16 08:15 08:30 08:45 Temperature Pulse Rate 71 85 73 Pulse Rate [ Anterior Bilateral Throughout] Pulse Rate [ From Monitor] Respiratory 33 H 33 H 32 H Rate Respiratory Rate [Anterior Bilateral Throughout] Blood Pressure 109/43 106/42 98/38 O2 Sat by Pulse 95 96 95 Oximetry 09/09/16 09/09/16 09/09/16 09:00 09:15 09:30 Temperature Pulse Rate 93 H 87 84 Pulse Rate [ Anterior Bilateral Throughout] Pulse Rate [ From Monitor] Respiratory 33 H 31 H 32 H Rate Respiratory Rate [Anterior Bilateral Throughout] Blood Pressure 102/42 103/45 103/41 O2 Sat by Pulse 95 92 93 Oximetry 09/09/16 09/09/16 09/09/16 09:45 10:00 10:15 Temperature Pulse Rate 76 69 96 H Pulse Rate [ Anterior Bilateral Throughout] Pulse Rate [ From Monitor] Respiratory 28 H 34 H 31 H Rate Respiratory Rate [Anterior Bilateral Throughout] Blood Pressure 102/41 89/32 84/39 O2 Sat by Pulse 95 94 98 Oximetry 09/09/16 09/09/16 09/09/16 10:30 10:46 11:00 Temperature Pulse Rate 73 65 77 Pulse Rate [ Anterior Bilateral Throughout] Pulse Rate [ From Monitor] Respiratory 31 H 31 H 31 H Rate Respiratory Rate [Anterior Bilateral Throughout] Blood Pressure 84/31 80/34 113/44 O2 Sat by Pulse 96 98 96 Oximetry Constitutional: no acute distress, other (obtunded) Eyes: non-icteric ENT: oropharynx moist Neck: supple, no lymphadenopathy Effort: mildly labored Ascultation: Bilateral: clear, diminished breath sounds (bases) Cardiovascular: regular rate and rhythm Gastrointestinal: normoactive bowel sounds, soft, non-distended Integumentary: normal Extremities: no cyanosis, pink and warm, pulses normal, no ischemia or petechiae , edema (trace) Neurologic: unable to assess, other (off sedation now) Psychiatric: other (sedated) CBC and BMP: 09/08/16 04:00 09/08/16 04:00 ABG, PT/INR, D-dimer: ABG POC ABG pH 7.445 (7.35-7.45) 09/08/16 15:58 POC ABG pCO2 38.6 (35-45) 09/08/16 15:58 POC ABG pO2 113 (80-105) H 09/08/16 15:58 POC ABG HCO3 26.5 09/08/16 15:58 POC ABG Total CO2 28 09/08/16 15:58 POC ABG O2 Sat 99 09/08/16 15:58 PT/INR, D-dimer PT 16.4 Sec. (12.2-14.9) H 09/06/16 03:30 INR 1.33 (0.87-1.13) H 09/06/16 03:30 Abnormal lab findings: Abnormal Labs 08/29/16 08/30/16 08/30/16 21:59 00:16 05:39 WBC RBC Hgb Hct MCH MCHC RDW Plt Count Seg Neutrophils % Seg Neuts % (Manual) Nucleated RBC % Seg Neutrophils # Seg Neutrophils # Man PT INR POC ABG pH POC ABG pCO2 POC ABG pO2 Sodium Potassium Chloride Carbon Dioxide BUN Creatinine Glucose POC Glucose 106 H 128 H Lactic Acid Calcium Total Bilirubin AST Alkaline Phosphatase Ammonia Troponin T C-Reactive Protein Total Protein Albumin Prealbumin 0.120 L Crossmatch 08/30/16 08/30/16 08/30/16 10:30 10:30 11:12 WBC 11.1 H RBC 3.16 L Hgb 8.7 L Hct 29.9 L MCH MCHC 29 L RDW 25.0 H Plt Count Seg Neutrophils % 78.6 H Seg Neuts % (Manual) Nucleated RBC % Seg Neutrophils # 8.7 H Seg Neutrophils # Man PT INR POC ABG pH POC ABG pCO2 POC ABG pO2 Sodium 135 L Potassium Chloride Carbon Dioxide 20 L BUN Creatinine 1.5 H Glucose 148 H POC Glucose 142 H Lactic Acid Calcium 7.2 L Total Bilirubin 1.30 H AST 143 H Alkaline Phosphatase 392 H Ammonia Troponin T C-Reactive Protein Total Protein 6.1 L Albumin 1.2 L Prealbumin Crossmatch 08/30/16 08/30/16 08/30/16 17:41 18:03 18:18 WBC RBC Hgb Hct MCH MCHC RDW Plt Count Seg Neutrophils % Seg Neuts % (Manual) Nucleated RBC % Seg Neutrophils # Seg Neutrophils # Man PT INR POC ABG pH 7.316 L POC ABG pCO2 POC ABG pO2 44 L 59 L Sodium Potassium Chloride Carbon Dioxide BUN Creatinine Glucose POC Glucose 150 H Lactic Acid Calcium Total Bilirubin AST Alkaline Phosphatase Ammonia Troponin T C-Reactive Protein Total Protein Albumin Prealbumin Crossmatch 08/30/16 08/30/16 08/31/16 22:20 22:20 00:11 WBC RBC Hgb Hct MCH MCHC RDW Plt Count Seg Neutrophils % Seg Neuts % (Manual) Nucleated RBC % Seg Neutrophils # Seg Neutrophils # Man PT INR POC ABG pH POC ABG pCO2 POC ABG pO2 Sodium Potassium Chloride Carbon Dioxide BUN Creatinine Glucose POC Glucose 133 H Lactic Acid 2.30 H* Calcium Total Bilirubin AST Alkaline Phosphatase Ammonia Troponin T C-Reactive Protein 10.20 H Total Protein Albumin Prealbumin Crossmatch 08/31/16 08/31/16 08/31/16 04:20 04:20 04:20 WBC 18.3 H RBC 3.19 L Hgb 8.8 L Hct 30.0 L MCH 27 L MCHC 29 L RDW 23.9 H Plt Count Seg Neutrophils % Seg Neuts % (Manual) Nucleated RBC % Seg Neutrophils # Seg Neutrophils # Man PT 16.8 H INR 1.37 H POC ABG pH POC ABG pCO2 POC ABG pO2 Sodium 136 L Potassium Chloride Carbon Dioxide 19 L BUN Creatinine 1.5 H Glucose 125 H POC Glucose Lactic Acid Calcium 7.0 L Total Bilirubin 1.50 H AST 131 H Alkaline Phosphatase 431 H Ammonia Troponin T C-Reactive Protein Total Protein 6.2 L Albumin 1.2 L Prealbumin Crossmatch 08/31/16 08/31/16 08/31/16 04:20 05:22 05:24 WBC RBC Hgb Hct MCH MCHC RDW Plt Count Seg Neutrophils % Seg Neuts % (Manual) Nucleated RBC % Seg Neutrophils # Seg Neutrophils # Man PT INR POC ABG pH POC ABG pCO2 POC ABG pO2 142 H Sodium Potassium Chloride Carbon Dioxide BUN Creatinine Glucose POC Glucose 123 H Lactic Acid Calcium Total Bilirubin AST Alkaline Phosphatase Ammonia 70.0 H Troponin T C-Reactive Protein Total Protein Albumin Prealbumin Crossmatch 08/31/16 08/31/16 08/31/16 12:10 15:45 17:38 WBC RBC Hgb Hct MCH MCHC RDW Plt Count Seg Neutrophils % Seg Neuts % (Manual) Nucleated RBC % Seg Neutrophils # Seg Neutrophils # Man PT INR POC ABG pH POC ABG pCO2 POC ABG pO2 Sodium 136 L Potassium Chloride Carbon Dioxide 21 L BUN Creatinine 1.5 H Glucose 160 H POC Glucose 147 H 151 H Lactic Acid Calcium 6.9 L Total Bilirubin AST Alkaline Phosphatase Ammonia Troponin T 0.109 H* D C-Reactive Protein Total Protein Albumin Prealbumin Crossmatch 09/01/16 09/01/16 09/01/16 00:09 04:00 04:00 WBC 14.8 H RBC 2.89 L Hgb 7.8 L Hct 27.2 L MCH 27 L MCHC 29 L RDW 24.4 H Plt Count Seg Neutrophils % Seg Neuts % (Manual) Nucleated RBC % Seg Neutrophils # Seg Neutrophils # Man PT 18.2 H INR 1.51 H POC ABG pH POC ABG pCO2 POC ABG pO2 Sodium Potassium Chloride Carbon Dioxide BUN Creatinine Glucose POC Glucose 192 H Lactic Acid Calcium Total Bilirubin AST Alkaline Phosphatase Ammonia Troponin T C-Reactive Protein Total Protein Albumin Prealbumin Crossmatch 09/01/16 09/01/16 09/01/16 04:00 05:28 11:28 WBC RBC Hgb Hct MCH MCHC RDW Plt Count Seg Neutrophils % Seg Neuts % (Manual) Nucleated RBC % Seg Neutrophils # Seg Neutrophils # Man PT INR POC ABG pH POC ABG pCO2 POC ABG pO2 Sodium Potassium Chloride Carbon Dioxide 20 L BUN Creatinine 1.6 H Glucose 183 H POC Glucose 189 H 207 H Lactic Acid Calcium 6.9 L Total Bilirubin 1.30 H AST 138 H Alkaline Phosphatase 520 H Ammonia Troponin T C-Reactive Protein Total Protein 6.1 L Albumin 1.2 L Prealbumin Crossmatch 09/01/16 09/01/16 09/02/16 16:56 23:49 05:00 WBC RBC Hgb Hct MCH MCHC RDW Plt Count Seg Neutrophils % Seg Neuts % (Manual) Nucleated RBC % Seg Neutrophils # Seg Neutrophils # Man PT 18.0 H INR 1.49 H POC ABG pH POC ABG pCO2 POC ABG pO2 Sodium Potassium Chloride Carbon Dioxide BUN Creatinine Glucose POC Glucose 250 H 307 H Lactic Acid Calcium Total Bilirubin AST Alkaline Phosphatase Ammonia Troponin T C-Reactive Protein Total Protein Albumin Prealbumin Crossmatch 09/02/16 09/02/16 09/02/16 05:00 05:00 05:45 WBC 12.3 H RBC 2.57 L Hgb 7.1 L Hct 23.4 L MCH MCHC RDW 23.9 H Plt Count Seg Neutrophils % Seg Neuts % (Manual) 72.0 H Nucleated RBC % 25.0 H Seg Neutrophils # Seg Neutrophils # Man 8.9 H PT INR POC ABG pH POC ABG pCO2 POC ABG pO2 Sodium Potassium Chloride Carbon Dioxide BUN Creatinine 1.4 H Glucose 299 H POC Glucose 327 H Lactic Acid Calcium 7.0 L Total Bilirubin AST Alkaline Phosphatase Ammonia Troponin T C-Reactive Protein Total Protein Albumin Prealbumin Crossmatch 09/02/16 09/02/16 09/02/16 12:22 17:22 23:24 WBC RBC Hgb Hct MCH MCHC RDW Plt Count Seg Neutrophils % Seg Neuts % (Manual) Nucleated RBC % Seg Neutrophils # Seg Neutrophils # Man PT INR POC ABG pH POC ABG pCO2 POC ABG pO2 Sodium Potassium Chloride Carbon Dioxide BUN Creatinine Glucose POC Glucose 310 H 358 H 286 H Lactic Acid Calcium Total Bilirubin AST Alkaline Phosphatase Ammonia Troponin T C-Reactive Protein Total Protein Albumin Prealbumin Crossmatch 09/03/16 09/03/16 09/03/16 04:10 04:10 04:10 WBC 11.8 H RBC 2.29 L Hgb 6.1 L Hct 21.0 L MCH 27 L MCHC 29 L RDW 24.1 H Plt Count Seg Neutrophils % Seg Neuts % (Manual) Nucleated RBC % Seg Neutrophils # Seg Neutrophils # Man PT 17.6 H INR 1.45 H POC ABG pH POC ABG pCO2 POC ABG pO2 Sodium Potassium Chloride Carbon Dioxide BUN Creatinine 1.4 H Glucose 301 H POC Glucose Lactic Acid Calcium 7.0 L Total Bilirubin AST Alkaline Phosphatase Ammonia Troponin T C-Reactive Protein Total Protein Albumin Prealbumin Crossmatch 09/03/16 09/03/16 09/03/16 05:59 11:36 17:42 WBC RBC Hgb Hct MCH MCHC RDW Plt Count Seg Neutrophils % Seg Neuts % (Manual) Nucleated RBC % Seg Neutrophils # Seg Neutrophils # Man PT INR POC ABG pH POC ABG pCO2 POC ABG pO2 Sodium Potassium Chloride Carbon Dioxide BUN Creatinine Glucose POC Glucose 351 H 285 H 259 H Lactic Acid Calcium Total Bilirubin AST Alkaline Phosphatase Ammonia Troponin T C-Reactive Protein Total Protein Albumin Prealbumin Crossmatch 09/03/16 09/04/16 09/04/16 23:00 04:27 05:36 WBC RBC Hgb Hct MCH MCHC RDW Plt Count Seg Neutrophils % Seg Neuts % (Manual) Nucleated RBC % Seg Neutrophils # Seg Neutrophils # Man PT INR POC ABG pH 7.544 H POC ABG pCO2 30.8 L POC ABG pO2 78 L Sodium Potassium Chloride Carbon Dioxide BUN Creatinine Glucose POC Glucose 192 H 228 H Lactic Acid Calcium Total Bilirubin AST Alkaline Phosphatase Ammonia Troponin T C-Reactive Protein Total Protein Albumin Prealbumin Crossmatch 09/04/16 09/04/16 09/04/16 06:37 06:37 06:39 WBC 21.0 H RBC 2.22 L Hgb 6.0 L Hct 20.1 L MCH 27 L MCHC RDW 24.3 H Plt Count Seg Neutrophils % Seg Neuts % (Manual) Nucleated RBC % Seg Neutrophils # Seg Neutrophils # Man PT 16.8 H INR 1.37 H POC ABG pH POC ABG pCO2 POC ABG pO2 Sodium Potassium Chloride Carbon Dioxide BUN Creatinine 1.4 H Glucose 201 H POC Glucose Lactic Acid Calcium 7.1 L Total Bilirubin AST Alkaline Phosphatase Ammonia Troponin T C-Reactive Protein Total Protein Albumin Prealbumin Crossmatch 09/04/16 09/04/16 09/04/16 12:14 15:47 17:41 WBC RBC Hgb Hct MCH MCHC RDW Plt Count Seg Neutrophils % Seg Neuts % (Manual) Nucleated RBC % Seg Neutrophils # Seg Neutrophils # Man PT INR POC ABG pH POC ABG pCO2 POC ABG pO2 Sodium Potassium Chloride Carbon Dioxide BUN Creatinine Glucose POC Glucose 176 H 218 H Lactic Acid Calcium Total Bilirubin AST Alkaline Phosphatase Ammonia Troponin T C-Reactive Protein Total Protein Albumin Prealbumin Crossmatch See Detail 09/04/16 09/04/16 09/05/16 21:59 23:48 04:30 WBC RBC Hgb Hct MCH MCHC RDW Plt Count Seg Neutrophils % Seg Neuts % (Manual) Nucleated RBC % Seg Neutrophils # Seg Neutrophils # Man PT 17.2 H INR 1.41 H POC ABG pH POC ABG pCO2 POC ABG pO2 Sodium Potassium Chloride Carbon Dioxide BUN Creatinine Glucose POC Glucose 170 H 121 H Lactic Acid Calcium Total Bilirubin AST Alkaline Phosphatase Ammonia Troponin T C-Reactive Protein Total Protein Albumin Prealbumin Crossmatch 09/05/16 09/05/16 09/05/16 04:30 04:30 05:09 WBC 31.9 H RBC 3.11 L Hgb 8.5 L Hct 28.3 L D MCH 27 L MCHC RDW 21.0 H Plt Count Seg Neutrophils % Seg Neuts % (Manual) Nucleated RBC % Seg Neutrophils # Seg Neutrophils # Man PT INR POC ABG pH 7.226 L POC ABG pCO2 61.6 H POC ABG pO2 68 L Sodium 134 L Potassium 5.5 H Chloride 96.6 L Carbon Dioxide BUN 23 H Creatinine 1.6 H Glucose 116 H POC Glucose Lactic Acid Calcium 7.1 L Total Bilirubin AST Alkaline Phosphatase Ammonia Troponin T C-Reactive Protein Total Protein Albumin Prealbumin Crossmatch 09/05/16 09/05/16 09/05/16 05:33 12:08 17:32 WBC RBC Hgb Hct MCH MCHC RDW Plt Count Seg Neutrophils % Seg Neuts % (Manual) Nucleated RBC % Seg Neutrophils # Seg Neutrophils # Man PT INR POC ABG pH POC ABG pCO2 POC ABG pO2 Sodium Potassium Chloride Carbon Dioxide BUN Creatinine Glucose POC Glucose 114 H 147 H 174 H Lactic Acid Calcium Total Bilirubin AST Alkaline Phosphatase Ammonia Troponin T C-Reactive Protein Total Protein Albumin Prealbumin Crossmatch 09/06/16 09/06/16 09/06/16 03:30 03:30 03:30 WBC 25.4 H RBC 2.57 L Hgb 7.2 L Hct 22.8 L MCH MCHC RDW 20.9 H Plt Count 138 L Seg Neutrophils % Seg Neuts % (Manual) Nucleated RBC % Seg Neutrophils # Seg Neutrophils # Cristian PT 16.4 H INR 1.33 H POC ABG pH POC ABG pCO2 POC ABG pO2 Sodium Potassium Chloride Carbon Dioxide BUN 36 H Creatinine 1.9 H Glucose POC Glucose Lactic Acid Calcium 7.2 L Total Bilirubin AST Alkaline Phosphatase Ammonia Troponin T C-Reactive Protein Total Protein Albumin Prealbumin Crossmatch 09/06/16 09/06/16 09/06/16 11:07 12:03 14:44 WBC RBC Hgb Hct MCH MCHC RDW Plt Count Seg Neutrophils % Seg Neuts % (Manual) Nucleated RBC % Seg Neutrophils # Seg Neutrophils # Cristian PT INR POC ABG pH POC ABG pCO2 POC ABG pO2 Sodium Potassium Chloride Carbon Dioxide BUN Creatinine Glucose POC Glucose 61 L 55 L Lactic Acid Calcium Total Bilirubin AST Alkaline Phosphatase Ammonia Troponin T 0.080 H C-Reactive Protein Total Protein Albumin Prealbumin Crossmatch 09/06/16 09/06/16 09/07/16 21:05 23:53 03:36 WBC RBC Hgb Hct MCH MCHC RDW Plt Count Seg Neutrophils % Seg Neuts % (Manual) Nucleated RBC % Seg Neutrophils # Seg Neutrophils # Cristian PT INR POC ABG pH POC ABG pCO2 POC ABG pO2 Sodium Potassium Chloride Carbon Dioxide BUN Creatinine Glucose POC Glucose 140 H 178 H 243 H Lactic Acid Calcium Total Bilirubin AST Alkaline Phosphatase Ammonia Troponin T C-Reactive Protein Total Protein Albumin Prealbumin Crossmatch 09/07/16 09/07/16 09/07/16 03:42 03:42 05:04 WBC 17.3 H RBC 2.69 L Hgb 7.6 L Hct 23.8 L MCH MCHC RDW 20.5 H Plt Count 137 L Seg Neutrophils % Seg Neuts % (Manual) Nucleated RBC % Seg Neutrophils # Seg Neutrophils # Man PT INR POC ABG pH POC ABG pCO2 POC ABG pO2 Sodium Potassium 3.3 L Chloride Carbon Dioxide BUN 38 H Creatinine 1.6 H Glucose 201 H POC Glucose 241 H Lactic Acid Calcium 7.4 L Total Bilirubin AST Alkaline Phosphatase Ammonia Troponin T C-Reactive Protein Total Protein Albumin Prealbumin Crossmatch 09/07/16 09/07/16 09/07/16 11:46 17:41 23:18 WBC RBC Hgb Hct MCH MCHC RDW Plt Count Seg Neutrophils % Seg Neuts % (Manual) Nucleated RBC % Seg Neutrophils # Seg Neutrophils # Man PT INR POC ABG pH POC ABG pCO2 POC ABG pO2 Sodium Potassium Chloride Carbon Dioxide BUN Creatinine Glucose POC Glucose 313 H 227 H 116 H Lactic Acid Calcium Total Bilirubin AST Alkaline Phosphatase Ammonia Troponin T C-Reactive Protein Total Protein Albumin Prealbumin Crossmatch 09/08/16 09/08/16 09/08/16 04:00 04:00 05:15 WBC 18.4 H RBC 2.43 L Hgb 6.9 L Hct 21.5 L MCH MCHC RDW 20.5 H Plt Count 119 L Seg Neutrophils % Seg Neuts % (Manual) Nucleated RBC % Seg Neutrophils # Seg Neutrophils # Man PT INR POC ABG pH 7.458 H POC ABG pCO2 POC ABG pO2 177 H Sodium Potassium 3.5 L Chloride Carbon Dioxide BUN 37 H Creatinine 1.3 H Glucose POC Glucose Lactic Acid Calcium 7.1 L Total Bilirubin AST Alkaline Phosphatase Ammonia Troponin T C-Reactive Protein Total Protein Albumin Prealbumin Crossmatch 09/08/16 09/08/16 09/08/16 11:00 15:58 23:16 WBC RBC Hgb Hct MCH MCHC RDW Plt Count Seg Neutrophils % Seg Neuts % (Manual) Nucleated RBC % Seg Neutrophils # Seg Neutrophils # Man PT INR POC ABG pH POC ABG pCO2 POC ABG pO2 113 H Sodium Potassium Chloride Carbon Dioxide BUN Creatinine Glucose POC Glucose 40 L Lactic Acid Calcium Total Bilirubin AST Alkaline Phosphatase Ammonia Troponin T C-Reactive Protein Total Protein Albumin Prealbumin Crossmatch See Detail 09/09/16 05:02 WBC RBC Hgb Hct MCH MCHC RDW Plt Count Seg Neutrophils % Seg Neuts % (Manual) Nucleated RBC % Seg Neutrophils # Seg Neutrophils # Man PT INR POC ABG pH POC ABG pCO2 POC ABG pO2 Sodium Potassium Chloride Carbon Dioxide BUN Creatinine Glucose POC Glucose 59 L Lactic Acid Calcium Total Bilirubin AST Alkaline Phosphatase Ammonia Troponin T C-Reactive Protein Total Protein Albumin Prealbumin Crossmatch Allied health notes reviewed: RT
--- NOTE | 2016-09-09 11:46 | Progress Note ---
Assessment and Plan - Patient Problems (1) RORY (acute kidney injury) Current Visit: No Status: Acute Plan to address problem: Acute Kidney Injury is hemodynamically mediated in the setting of hypotension / shock. Creatinine level is better. Lab results pending. Remain on Levophed. Continue current treatment. (2) Hyperkalemia Current Visit: No Status: Acute Plan to address problem: Improved with Kayexalate. Monitor K levels. (3) Shock Current Visit: Yes Status: Acute Plan to address problem: On Levophed. (4) Respiratory failure Current Visit: Yes Status: Acute Qualifiers: Chronicity: C Respiratory failure complication: R Plan to address problem: On vent. (5) Altered mental status Current Visit: Yes Status: Acute Qualifiers: Altered mental status type: unspecified Coma depth: C Coma timing: C Qualified Code(s): R41.82 - Altered mental status, unspecified (6) Anemia Current Visit: Yes Status: Acute Qualifiers: Anemia type: unspecified type Iron deficiency anemia type: I Vitamin B12 deficiency anemia type: V Folate deficiency anemia type: F Bone marrow failure anemia type: B Hemolytic anemia type: H Other causes of anemia: O Qualified Code(s): D64.9 - Anemia, unspecified Plan to address problem: Receiving PRBC. Subjective Date of service: 09/09/16 Principal diagnosis: Acute Hypoxemic Hypercapnic Resp Failure; Severe Sepsis Interval history: Patient remain on the vent. Objective - Vital Signs Vital signs: Vital Signs - 12hr 09/08/16 09/09/16 09/09/16 23:45 00:00 00:15 Temperature 98.0 F Pulse Rate 70 68 65 Pulse Rate [ Anterior Bilateral Throughout] Pulse Rate [ From Monitor] Respiratory 26 H 29 H 27 H Rate Respiratory Rate [Anterior Bilateral Throughout] Blood Pressure 108/50 107/52 112/51 O2 Sat by Pulse 95 93 94 Oximetry 09/09/16 09/09/16 09/09/16 00:30 00:45 01:00 Temperature Pulse Rate 52 L 72 76 Pulse Rate [ Anterior Bilateral Throughout] Pulse Rate [ From Monitor] Respiratory 27 H 27 H 26 H Rate Respiratory Rate [Anterior Bilateral Throughout] Blood Pressure 112/42 104/47 112/50 O2 Sat by Pulse 96 96 94 Oximetry 09/09/16 09/09/16 09/09/16 01:15 01:30 01:45 Temperature Pulse Rate 59 L 69 67 Pulse Rate [ Anterior Bilateral Throughout] Pulse Rate [ From Monitor] Respiratory 23 24 27 H Rate Respiratory Rate [Anterior Bilateral Throughout] Blood Pressure 111/57 103/48 103/48 O2 Sat by Pulse 93 95 97 Oximetry 09/09/16 09/09/16 09/09/16 02:00 02:15 02:26 Temperature Pulse Rate 69 68 Pulse Rate [ 72 Anterior Bilateral Throughout] Pulse Rate [ From Monitor] Respiratory 27 H 23 Rate Respiratory 25 H Rate [Anterior Bilateral Throughout] Blood Pressure 113/54 119/60 O2 Sat by Pulse 96 93 Oximetry 09/09/16 09/09/16 09/09/16 02:30 02:45 03:00 Temperature Pulse Rate 70 66 73 Pulse Rate [ Anterior Bilateral Throughout] Pulse Rate [ From Monitor] Respiratory 27 H 29 H 30 H Rate Respiratory Rate [Anterior Bilateral Throughout] Blood Pressure 121/56 121/56 122/57 O2 Sat by Pulse 93 93 93 Oximetry 09/09/16 09/09/16 09/09/16 03:15 03:30 03:45 Temperature Pulse Rate 81 72 74 Pulse Rate [ Anterior Bilateral Throughout] Pulse Rate [ From Monitor] Respiratory 28 H 27 H 26 H Rate Respiratory Rate [Anterior Bilateral Throughout] Blood Pressure 107/65 108/56 123/50 O2 Sat by Pulse 95 92 94 Oximetry 09/09/16 09/09/16 09/09/16 04:00 04:15 04:30 Temperature 98.2 F Pulse Rate 75 62 58 L Pulse Rate [ Anterior Bilateral Throughout] Pulse Rate [ 79 From Monitor] Respiratory 24 27 H 26 H Rate Respiratory Rate [Anterior Bilateral Throughout] Blood Pressure 118/41 115/49 122/44 O2 Sat by Pulse 99 96 96 Oximetry 09/09/16 09/09/16 09/09/16 04:45 05:00 05:15 Temperature Pulse Rate 70 70 71 Pulse Rate [ Anterior Bilateral Throughout] Pulse Rate [ From Monitor] Respiratory 26 H 26 H 21 Rate Respiratory Rate [Anterior Bilateral Throughout] Blood Pressure 113/46 108/40 110/48 O2 Sat by Pulse 96 97 93 Oximetry 09/09/16 09/09/16 09/09/16 05:30 05:45 06:00 Temperature Pulse Rate 73 78 66 Pulse Rate [ Anterior Bilateral Throughout] Pulse Rate [ From Monitor] Respiratory 28 H 29 H 28 H Rate Respiratory Rate [Anterior Bilateral Throughout] Blood Pressure 115/38 109/43 111/50 O2 Sat by Pulse 98 97 94 Oximetry 09/09/16 09/09/16 09/09/16 06:15 06:30 06:45 Temperature Pulse Rate 80 72 73 Pulse Rate [ Anterior Bilateral Throughout] Pulse Rate [ From Monitor] Respiratory 28 H 28 H 27 H Rate Respiratory Rate [Anterior Bilateral Throughout] Blood Pressure 109/46 104/36 111/45 O2 Sat by Pulse 95 97 97 Oximetry 09/09/16 09/09/16 09/09/16 07:00 07:15 07:30 Temperature Pulse Rate 80 75 96 H Pulse Rate [ Anterior Bilateral Throughout] Pulse Rate [ From Monitor] Respiratory 31 H 33 H 31 H Rate Respiratory Rate [Anterior Bilateral Throughout] Blood Pressure 115/48 111/45 117/51 O2 Sat by Pulse 95 95 96 Oximetry 09/09/16 09/09/16 09/09/16 07:45 07:50 08:00 Temperature 98.8 F Pulse Rate 63 80 83 Pulse Rate [ 62 Anterior Bilateral Throughout] Pulse Rate [ From Monitor] Respiratory 33 H 33 H 28 H Rate Respiratory 33 H Rate [Anterior Bilateral Throughout] Blood Pressure 121/52 109/46 116/44 O2 Sat by Pulse 93 95 97 Oximetry 09/09/16 09/09/16 09/09/16 08:10 08:15 08:30 Temperature Pulse Rate 71 85 Pulse Rate [ 66 Anterior Bilateral Throughout] Pulse Rate [ From Monitor] Respiratory 33 H 33 H Rate Respiratory 33 H Rate [Anterior Bilateral Throughout] Blood Pressure 109/43 106/42 O2 Sat by Pulse 95 96 Oximetry 09/09/16 09/09/16 09/09/16 08:45 09:00 09:15 Temperature Pulse Rate 73 93 H 87 Pulse Rate [ Anterior Bilateral Throughout] Pulse Rate [ From Monitor] Respiratory 32 H 33 H 31 H Rate Respiratory Rate [Anterior Bilateral Throughout] Blood Pressure 98/38 102/42 103/45 O2 Sat by Pulse 95 95 92 Oximetry 09/09/16 09/09/16 09/09/16 09:30 09:45 10:00 Temperature Pulse Rate 84 76 69 Pulse Rate [ Anterior Bilateral Throughout] Pulse Rate [ From Monitor] Respiratory 32 H 28 H 34 H Rate Respiratory Rate [Anterior Bilateral Throughout] Blood Pressure 103/41 102/41 89/32 O2 Sat by Pulse 93 95 94 Oximetry 09/09/16 09/09/1609/09/17 10:15 10:30 10:46 Temperature Pulse Rate 96 H 73 65 Pulse Rate [ Anterior Bilateral Throughout] Pulse Rate [ From Monitor] Respiratory 31 H 31 H 31 H Rate Respiratory Rate [Anterior Bilateral Throughout] Blood Pressure 84/39 84/31 80/34 O2 Sat by Pulse 98 96 98 Oximetry 09/09/16 09/09/16 11:00 11:15 Temperature 97.6 F Pulse Rate 77 84 Pulse Rate [ Anterior Bilateral Throughout] Pulse Rate [ From Monitor] Respiratory 31 H 29 H Rate Respiratory Rate [Anterior Bilateral Throughout] Blood Pressure 113/44 104/49 O2 Sat by Pulse 96 80 L Oximetry - General Appearance General appearance: well-developed, well-nourished, appears stated age, intubated (FiO2 30%) EENT: ATNC, PERRL Neck: supple Respiratory: Present: Other (coarse breath sounds) Cardiology: irregular, S1S2, no murmurs Gastrointestinal: normoactive bowel sounds, obese Integumentary: no rash Neurologic: obtunded Musculoskeletal: other (2+ edema of both LEs noted) - Lab 09/08/16 04:00 09/08/16 04:00 Most recent lab results Calcium 7.1 mg/dL (8.4-10.2) L 09/08/16 04:00 Phosphorus 3.60 mg/dL (2.5-4.5) 08/29/16 21:59 Magnesium 1.70 mg/dL (1.7-2.3) 09/06/16 03:30
[2016-09-09] MEDS: LEVOPHED DRIP 4 MG/NS 250 ML 4 MG/250 ML BAG IV SCH (12:29)
[2016-09-09] MEDS: D5NS 1,000 ML IV SCH ×2 (12:30→20:14)
[2016-09-09] MEDS: PROAMATINE PO SCH ×3 (12:38→22:33)
[2016-09-09 12:40] LABS: ISTAT Base Excess 3; ISTAT PCO2 38.4 (35-45); ISTAT PH 7.454 (7.35-7.45); ISTAT PO2 75 (80-105); ISTAT SO2 96; ISTAT TCO2 28
--- NOTE | 2016-09-09 14:48 | Progress Note ---
Assessment and Plan Patient is a 61-year-old morbid obese woman with a past medical history of congestive heart failure, severe protein calorie malnutrition (severe wasting bilateral congregation muscle, hypothenar muscle wasting) with BMI of 81.6, functional quadriplegia, type 2 diabetes mellitus, hypertension, multiple skin breakdown between legs and thighs who presented to the hospital via EMS with AMS. 2D echocardiogram with ejection fraction of 50-55%. During the past admission patient was recommended for placement but refused. On presentation to ED, patient was felt to be unable to maintain her airways and intubated the ER since 08/29/16. Pt's son wants pt to be DNR. Awaiting decision for withdrawal of care by family member Acute toxic metabolic encephalopathy Acute on chronic diastolic congestive heart failure: Cardiology is following, diuresis Acute on chronic respiratory failure, intubated Septic shock on Levaphed: Weaning attempts Hypercoagulable state Severe anemia s/p blood transfusion: Will be xfuse with 2 more unit as H/H is 6.9/21.5. monitor cbc Mitral stenosis Paroxysmal atrial fibrillation Non-ST elevated DE: Cardiology is following, conservative management Acute on chronic kidney disease likely secondary to vasomotor nephropathy-POA Transaminitis-elevated alkaline phosphatase and AST: continue to monitor Severe protein calorie malnutrition albumin 1.2 Morbid obesity BMI 81.6 Mulitple PRESSURE ULCERS-POA: consulted wound care uncontrolled dm: increase ssi and wean down iv steroids. restraints renewed Unable to get CT head due to weight issues Still very sick with high probability of demised is not in ICU. Awaitng DNR signature by adult son. Critical care time was 35 min Subjective Date of service: 09/09/16 Principal diagnosis: Acute Hypoxemic Hypercapnic Resp Failure; Severe Sepsis Interval history: still unresponsive. Still awaiting consensus on withdrawal of support from family members Objective - Constitutional Vitals: Vital Signs - 12hr 09/09/16 09/09/16 09/09/16 02:45 03:00 03:15 Temperature Pulse Rate 66 73 81 Pulse Rate [ Anterior Bilateral Throughout] Pulse Rate [ From Monitor] Respiratory 29 H 30 H 28 H Rate Respiratory Rate [Anterior Bilateral Throughout] Blood Pressure 121/56 122/57 107/65 O2 Sat by Pulse 93 93 95 Oximetry 09/09/16 09/09/16 09/09/16 03:30 03:45 04:00 Temperature 98.2 F Pulse Rate 72 74 75 Pulse Rate [ Anterior Bilateral Throughout] Pulse Rate [ 79 From Monitor] Respiratory 27 H 26 H 24 Rate Respiratory Rate [Anterior Bilateral Throughout] Blood Pressure 108/56 123/50 118/41 O2 Sat by Pulse 92 94 99 Oximetry 09/09/16 09/09/16 09/09/16 04:15 04:30 04:45 Temperature Pulse Rate 62 58 L 70 Pulse Rate [ Anterior Bilateral Throughout] Pulse Rate [ From Monitor] Respiratory 27 H 26 H 26 H Rate Respiratory Rate [Anterior Bilateral Throughout] Blood Pressure 115/49 122/44 113/46 O2 Sat by Pulse 96 96 96 Oximetry 09/09/16 09/09/16 09/09/16 05:00 05:15 05:30 Temperature Pulse Rate 70 71 73 Pulse Rate [ Anterior Bilateral Throughout] Pulse Rate [ From Monitor] Respiratory 26 H 21 28 H Rate Respiratory Rate [Anterior Bilateral Throughout] Blood Pressure 108/40 110/48 115/38 O2 Sat by Pulse 97 93 98 Oximetry 09/09/16 09/09/16 09/09/16 05:45 06:00 06:15 Temperature Pulse Rate 78 66 80 Pulse Rate [ Anterior Bilateral Throughout] Pulse Rate [ From Monitor] Respiratory 29 H 28 H 28 H Rate Respiratory Rate [Anterior Bilateral Throughout] Blood Pressure 109/43 111/50 109/46 O2 Sat by Pulse 97 94 95 Oximetry 09/09/16 09/09/16 09/09/16 06:30 06:45 07:00 Temperature Pulse Rate 72 73 80 Pulse Rate [ Anterior Bilateral Throughout] Pulse Rate [ From Monitor] Respiratory 28 H 27 H 31 H Rate Respiratory Rate [Anterior Bilateral Throughout] Blood Pressure 104/36 111/45 115/48 O2 Sat by Pulse 97 97 95 Oximetry 09/09/16 09/09/16 09/09/16 07:15 07:30 07:45 Temperature Pulse Rate 75 96 H 63 Pulse Rate [ Anterior Bilateral Throughout] Pulse Rate [ From Monitor] Respiratory 33 H 31 H 33 H Rate Respiratory Rate [Anterior Bilateral Throughout] Blood Pressure 111/45 117/51 121/52 O2 Sat by Pulse 95 96 93 Oximetry 09/09/16 09/09/16 09/09/16 07:50 08:00 08:10 Temperature 98.8 F Pulse Rate 80 83 Pulse Rate [ 62 66 Anterior Bilateral Throughout] Pulse Rate [ From Monitor] Respiratory 33 H 28 H Rate Respiratory 33 H 33 H Rate [Anterior Bilateral Throughout] Blood Pressure 109/46 116/44 O2 Sat by Pulse 95 97 Oximetry 09/09/16 09/09/16 09/09/16 08:15 08:30 08:45 Temperature Pulse Rate 71 85 73 Pulse Rate [ Anterior Bilateral Throughout] Pulse Rate [ From Monitor] Respiratory 33 H 33 H 32 H Rate Respiratory Rate [Anterior Bilateral Throughout] Blood Pressure 109/43 106/42 98/38 O2 Sat by Pulse 95 96 95 Oximetry 09/09/16 09/09/16 09/09/16 09:00 09:15 09:30 Temperature Pulse Rate 93 H 87 84 Pulse Rate [ Anterior Bilateral Throughout] Pulse Rate [ From Monitor] Respiratory 33 H 31 H 32 H Rate Respiratory Rate [Anterior Bilateral Throughout] Blood Pressure 102/42 103/45 103/41 O2 Sat by Pulse 95 92 93 Oximetry 09/09/16 09/09/16 09/09/16 09:45 10:00 10:15 Temperature Pulse Rate 76 69 96 H Pulse Rate [ Anterior Bilateral Throughout] Pulse Rate [ From Monitor] Respiratory 28 H 34 H 31 H Rate Respiratory Rate [Anterior Bilateral Throughout] Blood Pressure 102/41 89/32 84/39 O2 Sat by Pulse 95 94 98 Oximetry 09/09/16 09/09/16 09/09/16 10:30 10:46 11:00 Temperature Pulse Rate 73 65 77 Pulse Rate [ Anterior Bilateral Throughout] Pulse Rate [ From Monitor] Respiratory 31 H 31 H 31 H Rate Respiratory Rate [Anterior Bilateral Throughout] Blood Pressure 84/31 80/34 113/44 O2 Sat by Pulse 96 98 96 Oximetry 09/09/16 09/09/16 09/09/16 11:15 11:30 11:45 Temperature 97.6 F 98 F Pulse Rate 88 82 75 Pulse Rate [ Anterior Bilateral Throughout] Pulse Rate [ From Monitor] Respiratory 30 H 30 H 31 H Rate Respiratory Rate [Anterior Bilateral Throughout] Blood Pressure 102/41 113/44 97/42 O2 Sat by Pulse 95 100 96 Oximetry 09/09/16 09/09/16 09/09/16 12:00 12:15 12:30 Temperature 98 F 97 F L Pulse Rate 78 92 H 88 Pulse Rate [ Anterior Bilateral Throughout] Pulse Rate [ From Monitor] Respiratory 25 H 32 H 31 H Rate Respiratory Rate [Anterior Bilateral Throughout] Blood Pressure 101/44 104/40 98/37 O2 Sat by Pulse 100 95 97 Oximetry 09/09/16 09/09/16 09/09/16 12:45 12:47 13:00 Temperature 98 F Pulse Rate 95 H 84 98 H Pulse Rate [ Anterior Bilateral Throughout] Pulse Rate [ From Monitor] Respiratory 33 H 29 H 33 H Rate Respiratory Rate [Anterior Bilateral Throughout] Blood Pressure 112/46 104/49 116/45 O2 Sat by Pulse 96 98 95 Oximetry 09/09/16 09/09/16 09/09/16 13:15 13:30 13:45 Temperature 99.4 F Pulse Rate 94 H 96 H 94 H Pulse Rate [ Anterior Bilateral Throughout] Pulse Rate [ From Monitor] Respiratory 36 H 33 H 33 H Rate Respiratory Rate [Anterior Bilateral Throughout] Blood Pressure 120/53 115/52 118/52 O2 Sat by Pulse 93 94 91 Oximetry 09/09/16 09/09/16 09/09/16 13:55 14:00 14:04 Temperature Pulse Rate 98 H Pulse Rate [ 69 71 Anterior Bilateral Throughout] Pulse Rate [ From Monitor] Respiratory 36 H Rate Respiratory 28 H 28 H Rate [Anterior Bilateral Throughout] Blood Pressure 119/50 O2 Sat by Pulse 93 Oximetry 09/09/16 14:15 Temperature Pulse Rate 83 Pulse Rate [ Anterior Bilateral Throughout] Pulse Rate [ From Monitor] Respiratory 34 H Rate Respiratory Rate [Anterior Bilateral Throughout] Blood Pressure 107/44 O2 Sat by Pulse 95 Oximetry General appearance: Present: obese, other (still on mechanical ventilation day # 11) - EENT Eyes: PERRL - Neck Neck: supple, normal ROM - Respiratory Respiratory effort: normal Respiratory: bilateral: diminished - Cardiovascular Rhythm: regular Heart Sounds: Present: S1 & S2. Absent: gallop, rub Extremities: pulses intact, No edema, normal color, Full ROM - Gastrointestinal General gastrointestinal: Present: soft, non-tender, non-distended, normal bowel sounds - Genitourinary Female genitourinary: normal - Integumentary Integumentary: clear, warm, dry - Musculoskeletal Musculoskeletal: 1, strength equal bilaterally - Neurologic Neurologic: moves all extremities - Psychiatric Psychiatric: memory intact, appropriate mood/affect, intact judgment & insight - Labs CBC & Chem 7: 09/08/16 04:00 09/08/16 04:00 Labs: Abnormal lab results 09/04/16 09/08/16 09/08/16 Range/Units 15:47 11:00 15:58 POC ABG pH (7.35-7.45) POC ABG pO2 113 H (80-105) POC Glucose (70-105) Crossmatch See Detail See Detail 09/08/16 09/09/16 09/09/16 Range/Units 23:16 05:02 12:33 POC ABG pH 7.454 H (7.35-7.45) POC ABG pO2 75 L (80-105) POC Glucose 40 L 59 L (70-105) Crossmatch
[2016-09-09] MEDS: LOVENOX SUB-Q SCH (15:33)
[2016-09-09] MEDS: FLAGYL 500 MG/100 ML 500 MG/100 ML BAG IV SCH ×2 (16:07→23:18)
[2016-09-09] MEDS ORDERED: SODIUM BICARBONATE FEEDTUBE PRN (16:11)
[2016-09-09] MEDS ORDERED: SIMPLE SYRUP FEEDTUBE PRN ×2 (16:11)
[2016-09-09] MEDS ORDERED: PANCREAZE DR 10,500 UNIT FEEDTUBE PRN (16:11)
--- NOTE | 2016-09-09 16:24 | Consultation ---
History of Present Illness Consult date: 09/09/16 - History of present illness History of present illness: The patient is a 61F with h/o morbid obesity, CHF, DM, HTN who is currently intubated with an FIO2 of .35. She initially presented with metabolic encephalopathy. The surgery service has been called to evaluate for a trach/ PEG. Past History Past Medical History: anemia, diabetes, hypertension, hyperlipidemia, other ( Morbid Obesity) Social history: Family history: hypertension Medications and Allergies Allergies Allergy/AdvReac Type Severity Reaction Status Date / Time No Known Allergies Allergy Verified 01/11/16 00:24 Home Medications Medication Instructions Recorded Confirmed Last Taken Type AtorvaSTATin [Lipitor] 20 mg PO QDAY 01/11/16 08/31/16 07/08/16 History Folic Acid [Folvite] 1 mg PO QDAY 01/11/16 08/31/16 07/08/16 History Tizanidine HCl [tiZANidine] 2 mg PO Q8H 01/11/16 08/31/16 07/08/16 History amLODIPine [Norvasc] 10 mg PO DAILY 01/11/16 08/31/16 07/08/16 History Insulin Glargine [Lantus VIAL] 20 units SUB-Q QAMDIAB 30 Days 01/20/16 08/31/16 07/08/16 Rx Insulin Glulisine [Apidra] 6 units SUB-Q AC 30 Days 01/20/16 08/31/16 07/08/16 Rx Pantoprazole [Protonix TAB] 40 mg PO BID #60 tablet 01/21/16 08/31/16 07/08/16 Rx HYDROcodone/APAP 5-325 [[place] 1 each PO Q6HR PRN #10 tablet 02/26/16 08/31/16 Rx 5-325 mg TAB] Blood Sugar Diagnostic [Blood 1 each [facility] TIDAC #100 strip 05/01/16 08/31/1607/08 Rx Glucose Test Strip] Gabapentin 300 mg PO TID 08/31/16 08/31/16 Unknown History Active Meds: Active Medications Acetaminophen (Tylenol) 650 mg PO Q4H PRN PRN Reason: Pain MILD(1-3)/Fever >100.5/DUBOSE Albuterol (Proventil) 2.5 mg IH Q3HRT PRN PRN Reason: Shortness Of Breath Albuterol/Ipratropium (Duoneb 0.5 Mg-3 Mg/3 Ml Soln) 1 ampul IH Q6HRT [facility] Last Admin: 09/09/16 13:55 Dose: 1 ampul Lipase/Protease/Amylase (Pancreaze Dr 10,500 Unit) 1 each FEEDTUBE PRN PRN PRN Reason: For Clogged Feeding Tube Lipase/Protease/Amylase (Pancreaze Dr 10,500 Unit) 1 each FEEDTUBE PRN PRN PRN Reason: For Clogged Feeding Tube Bisacodyl (Dulcolax) 10 mg HI QDAY PRN PRN Reason: Constipation unrelieved by MOM Enoxaparin Sodium (Lovenox) 40 mg SUB-Q DAILY [facility] Last Admin: 09/09/16 15:33 Dose: 40 mg Ferrous Sulfate (Ferrous Sulfate) 300 mg PO QDAY [facility] Last Admin: 09/09/16 10:37 Dose: 300 mg Folic Acid (Folvite) 1 mg PO DAILY [facility] Last Admin: 09/08/16 09:11 Dose: 1 mg Hydrophilic Ointment (Vaseline Lip Therapy) 1 applic TP Q2HR PRN PRN Reason: Dry Lips Norepinephrine (Levophed Drip 4 Mg/Ns 250 Ml) 4 mg in 250 mls @ 7.5 mls/hr IV TITR KATHY; 2 MCG/MIN PRN Reason: Protocol Last Admin: 09/09/16 12:29 Dose: 1 mcg/min, 3.75 mls/hr Lorazepam 100 mg/ Sodium Chloride/ Miscellaneous Information 100 mls @ 2 mls/ hr IV TITR KATHY; 2 MG/HR PRN Reason: Protocol Last Titration: 09/07/16 14:03 Dose: 0 mg/hr, 0 mls/hr Propofol (Diprivan 10 Mg/Ml) 1,000 mg in 100 mls @ 5.688 mls/hr IV TITR KATHY; 5 MCG/KG/MIN PRN Reason: Protocol Last Titration: 09/07/16 07:00 Dose: 4 mcg/kg/min, 4.55 mls/hr Dopamine HCl/Dextrose (Intropin Drip 800 Mg/D5w 250 Ml) 800 mg in 250 mls @ 7.11 mls/hr IV TITR KATHY; 2 MCG/KG/MIN PRN Reason: Protocol Dextrose (D10w) 1,000 mls @ 75 mls/hr IV DIRECT [facility] Last Admin: 09/08/16 23:25 Dose: 75 mls/hr Dextrose/Sodium Chloride (D5ns) 1,000 mls @ 150 mls/hr IV DIRECT KATHY Stop: 09/10/16 18:39 Last Admin: 09/09/16 12:30 Dose: 150 mls/hr Cefepime HCl (Maxipime/Ns 1 Gm/100 Ml) 1 gm in 100 mls @ 200 mls/hr IV Q8H KATHY PRN Reason: Protocol Metronidazole (Flagyl 500 Mg/100 Ml) 500 mg in 100 mls @ 100 mls/hr IV Q8H [facility] Last Admin: 09/09/16 16:07 Dose: 100 mls/hr Insulin Aspart (Novolog) 0 units SUB-Q Q6HR KATHY PRN Reason: Protocol Last Admin: 09/09/16 12:38 Dose: Not Given Lactulose (Cephulac) 20 gm PO Q6H PRN PRN Reason: Constipation Levetiracetam (Keppra) 500 mg PO BID [facility] Last Admin: 09/09/16 09:24 Dose: 500 mg Lorazepam (Ativan) 1 mg IV Q5MIN PRN PRN Reason: Seizures Last Admin: 09/05/16 03:05 Dose: 1 mg Magnesium Hydroxide (Milk Of Magnesia) 30 ml PO Q4H PRN PRN Reason: Constipation Methylprednisolone Sodium Succinate (Solu-Medrol) 40 mg IV Q12HR [facility] Last Admin: 09/09/16 11:00 Dose: 40 mg Metoclopramide HCl (Reglan) 10 mg IV Q8HR [facility] Last Admin: 09/09/16 13:43 Dose: 10 mg Midodrine (Proamatine) 10 mg PO Q8HR [facility] Last Admin: 09/09/16 15:34 Dose: 10 mg Multi-Ingred Cream/Lotion/Oil/Oint (Artificial Tears Ophth Oint) 1 applic OU Q4HR PRN PRN Reason: Dry Eye(s) Last Admin: 09/06/16 06:39 Dose: 1 applic Ondansetron HCl (Zofran) 4 mg IV Q8H PRN PRN Reason: N/V unrelieved by Reglan Pantoprazole (Protonix) 40 mg PO QDAY [facility] Last Admin: 09/09/16 09:24 Dose: 40 mg Simple Syrup (Simple Syrup) 15 ml FEEDTUBE PRN PRN PRN Reason: Hypoglycemia Last Admin: 09/06/16 13:00 Dose: 15 ml Simple Syrup (Simple Syrup) 30 ml FEEDTUBE PRN PRN PRN Reason: Hypoglycemia Last Admin: 09/06/16 15:00 Dose: 30 ml Simple Syrup (Simple Syrup) 15 ml FEEDTUBE PRN PRN PRN Reason: Hypoglycemia Simple Syrup (Simple Syrup) 30 ml FEEDTUBE PRN PRN PRN Reason: Hypoglycemia Sodium Bicarbonate (Sodium Bicarbonate) 325 mg FEEDTUBE PRN PRN PRN Reason: For Clogged Feeding Tube Sodium Bicarbonate (Sodium Bicarbonate) 325 mg FEEDTUBE PRN PRN PRN Reason: For Clogged Feeding Tube Exam Vital Signs Pulse Ox 100 08/29/16 16:06 - Neck Positive: no masses, trachea midline - Respiratory Positive: clear to auscultation - Cardiovascular Rhythm: regular Heart Sounds: Present: S1 & S2 - Abdomen Abdomen: Present: soft (soft, obese, no visible surgical scars) Results - Labs 09/08/16 04:00 09/08/16 04:00 Abnormal lab results 09/04/16 09/08/16 09/08/16 Range/Units 15:47 11:00 23:16 POC ABG pH (7.35-7.45) POC ABG pO2 (80-105) POC Glucose 40 L (70-105) Crossmatch See Detail See Detail 09/09/16 09/09/16 Range/Units 05:02 12:33 POC ABG pH 7.454 H (7.35-7.45) POC ABG pO2 75 L (80-105) POC Glucose 59 L (70-105) Crossmatch Assessment and Plan A/P: 1) We have to speak to the family to obtain consent for the trach/PEG. Once that is done, we can schedule the procedure at the next earliest available time.
[2016-09-09] MEDS: MAXIPIME/NS 1 GM/100 ML 1 GM/100 ML BAG IV SCH (18:34)
[2016-09-09 18:56] LABS: Hematocrit 26.1 % (30.3-42.9); Hemoglobin 8.5 gm/dl (10.1-14.3); Mean Corpuscular HGB Conc 33 % (30-34); Mean Corpuscular Hemoglobin 29 pg (28-32); Mean Corpuscular Volume 90 fl (79-97); Platelet Count 126 K/mm3 (140-440); Red Cell Distribution Width 17.9 % (13.2-15.2)
[2016-09-09 18:59] LABS: Alanine Aminotransferase 184 units/L (7-56); Albumin 1.7 g/dL (3.9-5); Albumin/Globulin Ratio 0.5 %; Alkaline Phosphatase 729 units/L (35-129); Anion Gap 17 mmol/L; Blood Urea Nitrogen 36 mg/dL (7-17); Calcium 6.9 mg/dL (8.4-10.2); Carbon Dioxide 25 mmol/L (22-30); Chloride 98.7 mmol/L (98-107); Glucose 133 mg/dL (65-100); Potassium 3.7 mmol/L (3.6-5.0); Sodium 137 mmol/L (137-145); Total Protein 5.1 g/dL (6.3-8.2)
[2016-09-10] MEDS: MAXIPIME/NS 1 GM/100 ML 1 GM/100 ML BAG IV SCH ×3 (00:05→16:32)
[2016-09-10] MEDS: NOVOLOG SUB-Q SCH ×4 (00:08→18:20)
[2016-09-10] MEDS: DUONEB 0.5 MG-3 MG/3 ML SOLN IH SCH ×4 (01:55→19:34)
[2016-09-10] MEDS: REGLAN IV SCH ×3 (05:21→21:09)
[2016-09-10] MEDS: PROAMATINE PO SCH ×3 (05:21→21:09)
[2016-09-10 06:05] LABS: INR 1.07 (0.87-1.13)
[2016-09-10 06:13] LABS: Alanine Aminotransferase 171 units/L (7-56); Albumin 1.7 g/dL (3.9-5); Albumin/Globulin Ratio 0.5 %; Alkaline Phosphatase 710 units/L (35-129); Anion Gap 20 mmol/L; Blood Urea Nitrogen 35 mg/dL (7-17); Calcium 6.8 mg/dL (8.4-10.2); Carbon Dioxide 22 mmol/L (22-30); Chloride 99.6 mmol/L (98-107); Glucose 240 mg/dL (65-100); Potassium 3.6 mmol/L (3.6-5.0); Sodium 138 mmol/L (137-145); Total Protein 5.2 g/dL (6.3-8.2)
--- NOTE | 2016-09-10 06:59 | Progress Note ---
Assessment and Plan - Patient Problems (1) RORY (acute kidney injury) Current Visit: No Status: Acute Plan to address problem: Acute Kidney Injury is hemodynamically mediated in the setting of hypotension / shock. Renal function has improved. Remain on Levophed. Continue current treatment. Will follow labs. (2) Hyperkalemia Current Visit: No Status: Acute Plan to address problem: Improved with Kayexalate. Monitor K levels. (3) Shock Current Visit: Yes Status: Acute Plan to address problem: On Levophed. (4) Respiratory failure Current Visit: Yes Status: Acute Qualifiers: Chronicity: C Respiratory failure complication: R Plan to address problem: On vent. (5) Altered mental status Current Visit: Yes Status: Acute Qualifiers: Altered mental status type: unspecified Coma depth: C Coma timing: C Qualified Code(s): R41.82 - Altered mental status, unspecified (6) Anemia Current Visit: Yes Status: Acute Qualifiers: Anemia type: unspecified type Iron deficiency anemia type: I Vitamin B12 deficiency anemia type: V Folate deficiency anemia type: F Bone marrow failure anemia type: B Hemolytic anemia type: H Other causes of anemia: O Qualified Code(s): D64.9 - Anemia, unspecified Plan to address problem: S/p PRBC. Subjective Date of service: 09/10/16 Principal diagnosis: Acute Hypoxemic Hypercapnic Resp Failure; Severe Sepsis Interval history: Patient remain on the vent. Objective - Vital Signs Vital signs: Vital Signs - 12hr 09/09/16 09/09/16 09/09/16 19:00 19:15 19:30 Temperature Pulse Rate 80 97 H 94 H Pulse Rate [ Anterior Bilateral Throughout] Pulse Rate [ From Monitor] Respiratory 30 H 34 H 33 H Rate Respiratory Rate [Anterior Bilateral Throughout] Blood Pressure 100/64 91/55 104/45 O2 Sat by Pulse 95 97 Oximetry 09/09/16 09/09/16 09/09/16 19:45 19:48 19:49 Temperature Pulse Rate 73 83 Pulse Rate [ 93 H Anterior Bilateral Throughout] Pulse Rate [ From Monitor] Respiratory 34 H 35 H Rate Respiratory 33 H Rate [Anterior Bilateral Throughout] Blood Pressure 96/41 104/45 O2 Sat by Pulse 94 99 Oximetry 09/09/16 09/09/16 09/09/16 19:52 19:54 20:00 Temperature 99.0 F Pulse Rate 67 Pulse Rate [ 94 H Anterior Bilateral Throughout] Pulse Rate [ 70 From Monitor] Respiratory 34 H Rate Respiratory 33 H Rate [Anterior Bilateral Throughout] Blood Pressure 99/39 O2 Sat by Pulse 98 Oximetry 09/09/16 09/09/16 09/09/16 20:15 20:30 20:45 Temperature Pulse Rate 96 H 81 79 Pulse Rate [ Anterior Bilateral Throughout] Pulse Rate [ From Monitor] Respiratory 33 H 31 H 32 H Rate Respiratory Rate [Anterior Bilateral Throughout] Blood Pressure 99/46 108/44 97/40 O2 Sat by Pulse 94 95 Oximetry 09/09/16 09/09/16 09/09/16 21:00 21:15 21:30 Temperature Pulse Rate 80 86 Pulse Rate [ Anterior Bilateral Throughout] Pulse Rate [ From Monitor] Respiratory 30 H 18 Rate Respiratory Rate [Anterior Bilateral Throughout] Blood Pressure 105/45 113/54 113/54 O2 Sat by Pulse 96 96 98 Oximetry 09/09/16 09/09/16 09/09/16 21:45 22:00 22:15 Temperature Pulse Rate 102 H 88 91 H Pulse Rate [ Anterior Bilateral Throughout] Pulse Rate [ From Monitor] Respiratory 29 H 27 H 34 H Rate Respiratory Rate [Anterior Bilateral Throughout] Blood Pressure 92/38 91/37 90/35 O2 Sat by Pulse 97 97 94 Oximetry 09/09/16 09/09/16 09/09/16 22:30 22:36 22:45 Temperature Pulse Rate 66 75 94 H Pulse Rate [ Anterior Bilateral Throughout] Pulse Rate [ From Monitor] Respiratory 19 28 H 19 Rate Respiratory Rate [Anterior Bilateral Throughout] Blood Pressure 79/33 81/42 88/40 O2 Sat by Pulse 95 97 95 Oximetry 09/09/16 09/09/16 09/09/16 23:00 23:15 23:30 Temperature Pulse Rate 95 H 93 H 86 Pulse Rate [ Anterior Bilateral Throughout] Pulse Rate [ From Monitor] Respiratory 31 H 28 H 31 H Rate Respiratory Rate [Anterior Bilateral Throughout] Blood Pressure 91/42 98/39 97/37 O2 Sat by Pulse 94 92 96 Oximetry 09/09/16 09/09/16 09/10/16 23:37 23:45 00:00 Temperature 97.9 F Pulse Rate 78 81 75 Pulse Rate [ Anterior Bilateral Throughout] Pulse Rate [ From Monitor] Respiratory 19 24 32 H Rate Respiratory Rate [Anterior Bilateral Throughout] Blood Pressure 97/37 90/35 104/38 O2 Sat by Pulse 96 95 100 Oximetry 09/10/16 09/10/16 09/10/16 00:15 00:30 00:45 Temperature Pulse Rate 85 70 82 Pulse Rate [ Anterior Bilateral Throughout] Pulse Rate [ From Monitor] Respiratory 27 H 31 H 26 H Rate Respiratory Rate [Anterior Bilateral Throughout] Blood Pressure 98/42 100/42 108/52 O2 Sat by Pulse 94 93 94 Oximetry 09/10/16 09/10/16 09/10/16 01:00 01:15 01:30 Temperature Pulse Rate 85 88 77 Pulse Rate [ Anterior Bilateral Throughout] Pulse Rate [ From Monitor] Respiratory 30 H 26 H 24 Rate Respiratory Rate [Anterior Bilateral Throughout] Blood Pressure 111/46 108/53 112/54 O2 Sat by Pulse 92 94 92 Oximetry 09/10/16 09/10/16 09/10/16 01:45 01:55 02:00 Temperature Pulse Rate 82 67 Pulse Rate [ 88 Anterior Bilateral Throughout] Pulse Rate [ From Monitor] Respiratory 23 20 Rate Respiratory 28 H Rate [Anterior Bilateral Throughout] Blood Pressure 116/44 118/44 O2 Sat by Pulse 92 95 Oximetry 09/10/16 09/10/16 09/10/16 02:02 02:15 02:30 Temperature Pulse Rate 86 94 H Pulse Rate [ 86 Anterior Bilateral Throughout] Pulse Rate [ From Monitor] Respiratory 16 12 Rate Respiratory 28 H Rate [Anterior Bilateral Throughout] Blood Pressure 127/59 118/61 O2 Sat by Pulse 93 94 Oximetry 09/10/16 09/10/16 09/10/16 02:45 03:00 03:15 Temperature Pulse Rate 95 H 93 H 81 Pulse Rate [ Anterior Bilateral Throughout] Pulse Rate [ From Monitor] Respiratory 24 35 H 11 L Rate Respiratory Rate [Anterior Bilateral Throughout] Blood Pressure 114/57 123/55 128/63 O2 Sat by Pulse 95 94 94 Oximetry 09/10/16 09/10/16 09/10/16 03:30 03:45 04:00 Temperature 98.0 F Pulse Rate 94 H 81 78 Pulse Rate [ Anterior Bilateral Throughout] Pulse Rate [ 82 From Monitor] Respiratory 26 H 25 H 25 H Rate Respiratory Rate [Anterior Bilateral Throughout] Blood Pressure 126/60 127/61 123/55 O2 Sat by Pulse 94 94 94 Oximetry 09/10/16 09/10/16 09/10/16 04:15 04:30 04:45 Temperature Pulse Rate 92 H 94 H 91 H Pulse Rate [ Anterior Bilateral Throughout] Pulse Rate [ From Monitor] Respiratory 25 H 15 25 H Rate Respiratory Rate [Anterior Bilateral Throughout] Blood Pressure 130/60 118/40 126/36 O2 Sat by Pulse 96 94 Oximetry 09/10/16 09/10/16 09/10/16 05:00 05:15 05:30 Temperature Pulse Rate 95 H 87 87 Pulse Rate [ Anterior Bilateral Throughout] Pulse Rate [ From Monitor] Respiratory 18 28 H 27 H Rate Respiratory Rate [Anterior Bilateral Throughout] Blood Pressure 117/52 126/49 125/49 O2 Sat by Pulse 96 95 95 Oximetry 09/10/16 09/10/16 05:45 06:00 Temperature Pulse Rate 78 89 Pulse Rate [ Anterior Bilateral Throughout] Pulse Rate [ From Monitor] Respiratory 25 H 29 H Rate Respiratory Rate [Anterior Bilateral Throughout] Blood Pressure 109/42 121/55 O2 Sat by Pulse 95 97 Oximetry - General Appearance General appearance: well-developed, well-nourished, appears stated age, obese, intubated (FiO2 30%) EENT: ATNC, PERRL Neck: supple Respiratory: Present: Other (coarse breath sounds) Cardiology: regular, S1S2, no murmurs Gastrointestinal: normoactive bowel sounds, no tenderness, obese Integumentary: no rash Neurologic: obtunded Musculoskeletal: other (2+ edema of both LEs noted) - Lab 09/09/16 18:10 09/10/16 05:10 Most recent lab results Calcium 6.8 mg/dL (8.4-10.2) L 09/10/16 05:10 Phosphorus 3.60 mg/dL (2.5-4.5) 08/29/16 21:59 Magnesium 1.70 mg/dL (1.7-2.3) 09/06/16 03:30
--- NOTE | 2016-09-10 07:02 | Progress Note ---
Assessment and Plan - Patient Problems (1) Leukocytosis, unspecified Current Visit: Yes Status: Acute Qualifiers: Leukocytosis type: L Plan to address problem: 1. GPC pairs and GNRs on Gram stain of tracheal aspirate. Continue Cefepime/ Flagyl for now. 2. Normothermic presently. Subjective Date of service: 09/10/16 Principal diagnosis: Acute Hypoxemic Hypercapnic Resp Failure; Severe Sepsis Interval history: Remains intubated in ICU. Empiric antibiotics started yesterday given report of hypothermia and increased respiratory secretions. Objective - Exam Narrative Exam: morbidly obese, intubated, FiO2 30% - Constitutional Vitals: Vital Signs Temp Pulse Resp BP Pulse Ox 98.0 F 89 29 H 121/55 97 09/10/16 04:00 09/10/16 06:00 09/10/16 06:00 09/10/16 06:00 09/10/16 06:00 Temperature -Last 24 Hours Temperature 98.0 F Temperature 97.9 F Temperature 99.0 F Temperature 99.3 F Temperature 99.3 F Temperature 99.3 F Temperature 99.3 F Temperature 99.4 F Temperature 98 F Temperature 97 F Temperature 98 F Temperature 99.4 F Temperature 98 F Temperature 97.6 F Temperature 98.8 F - EENT Eyes: no scleral icterus, no conjunctival injection ENT: clear oral mucosa, other (ET tube) - Respiratory Respiratory: bilateral: diminished, negative: rhonchi - Cardiovascular Rhythm: irregularly irregular (PACs) Extremity abnormal: edema (2-3+ bilaterally) - Gastrointestinal General gastrointestinal: Present: soft, non-distended - Genitourinary Female genitourinary: other (Jose with normal-appearing urine) - Integumentary Integumentary: no jaundice, no rash - Psychiatric Psychiatric: other (minimally responsive to tactile/ auditory stimuli) - Labs CBC & Chem 7: 09/09/16 18:10 09/10/16 05:10 Labs: Abnormal lab results 09/08/16 09/09/16 09/09/16 Range/Units 11:00 12:33 18:10 WBC (4.5-11.0) K/mm3 RBC (3.65-5.03) M/mm3 Hgb (10.1-14.3) gm/dl Hct (30.3-42.9) % RDW (13.2-15.2) % Plt Count (140-440) K/mm3 POC ABG pH 7.454 H (7.35-7.45) POC ABG pO2 75 L (80-105) BUN (7-17) mg/dL Glucose (65-100) mg/dL POC Glucose (70-105) Calcium (8.4-10.2) mg/dL AST (5-40) units/L ALT (7-56) units/L Alkaline Phosphatase (35-129) units/L Total Protein (6.3-8.2) g/dL Albumin (3.9-5) g/dL TSH 5.220 H (0.270-4.200) mlU/mL Crossmatch See Detail 09/09/16 09/09/16 09/09/16 Range/Units 18:10 18:10 18:42 WBC 17.0 H (4.5-11.0) K/mm3 RBC 2.90 L (3.65-5.03) M/mm3 Hgb 8.5 L (10.1-14.3) gm/dl Hct 26.1 L (30.3-42.9) % RDW 17.9 H (13.2-15.2) % Plt Count 126 L (140-440) K/mm3 POC ABG pH (7.35-7.45) POC ABG pO2 (80-105) BUN 36 H (7-17) mg/dL Glucose 133 H (65-100) mg/dL POC Glucose 148 H (70-105) Calcium 6.9 L (8.4-10.2) mg/dL AST 253 H (5-40) units/L ALT 184 H (7-56) units/L Alkaline Phosphatase 729 H (35-129) units/L Total Protein 5.1 L (6.3-8.2) g/dL Albumin 1.7 L (3.9-5) g/dL TSH (0.270-4.200) mlU/mL Crossmatch 09/09/16 09/10/16 Range/Units 23:22 05:10 WBC (4.5-11.0) K/mm3 RBC (3.65-5.03) M/mm3 Hgb (10.1-14.3) gm/dl Hct (30.3-42.9) % RDW (13.2-15.2) % Plt Count (140-440) K/mm3 POC ABG pH (7.35-7.45) POC ABG pO2 (80-105) BUN 35 H (7-17) mg/dL Glucose 240 H (65-100) mg/dL POC Glucose 170 H (70-105) Calcium 6.8 L (8.4-10.2) mg/dL AST 226 H (5-40) units/L ALT 171 H (7-56) units/L Alkaline Phosphatase 710 H (35-129) units/L Total Protein 5.2 L (6.3-8.2) g/dL Albumin 1.7 L (3.9-5) g/dL TSH (0.270-4.200) mlU/mL Crossmatch Microbiology 09/09/16 19:23 Peripheral/Venous Blood Culture - Preliminary Culture in Progress 09/09/16 18:10 Peripheral/Venous Blood Culture - Preliminary Culture in Progress 09/09/16 13:40 Tracheal Aspirate Sputum Culture - Preliminary 08/29/16 17:40 Peripheral/Venous Blood Culture - Final NO GROWTH AFTER 5 DAYS 08/29/16 17:45 Peripheral/Venous Blood Culture - Final NO GROWTH AFTER 5 DAYS 09/03/16 18:00 Stool Stool Occult Blood (JEANNETTE) - Final 08/29/16 15:37 Urine,Catheterized - Indwelling Catheter Urine Culture - Final NO GROWTH AFTER 48 HOURS 08/29/16 Unknown Tracheal Aspirate Sputum Culture - Final Active Medications Acetaminophen (Tylenol) 650 mg PO Q4H PRN PRN Reason: Pain MILD(1-3)/Fever >100.5/DUBOSE Albuterol (Proventil) 2.5 mg IH Q3HRT PRN PRN Reason: Shortness Of Breath Albuterol/Ipratropium (Duoneb 0.5 Mg-3 Mg/3 Ml Soln) 1 ampul IH Q6HRT KATHY Last Admin: 09/10/16 01:55 Dose: 1 ampul Lipase/Protease/Amylase (Pancreaze Dr 10,500 Unit) 1 each FEEDTUBE PRN PRN PRN Reason: For Clogged Feeding Tube Bisacodyl (Dulcolax) 10 mg FL QDAY PRN PRN Reason: Constipation unrelieved by MOM Enoxaparin Sodium (Lovenox) 40 mg SUB-Q DAILY [facility] Last Admin: 09/09/16 15:33 Dose: 40 mg Ferrous Sulfate (Ferrous Sulfate) 300 mg PO QDAY KATHY Last Admin: 09/09/16 10:37 Dose: 300 mg Folic Acid (Folvite) 1 mg PO DAILY KATHY Last Admin: 09/08/16 09:11 Dose: 1 mg Hydrophilic Ointment (Vaseline Lip Therapy) 1 applic TP Q2HR PRN PRN Reason: Dry Lips Norepinephrine (Levophed Drip 4 Mg/Ns 250 Ml) 4 mg in 250 mls @ 7.5 mls/hr IV TITR KATHY; 2 MCG/MIN PRN Reason: Protocol Last Titration: 09/09/16 22:40 Dose: 2 mcg/min, 7.5 mls/hr Lorazepam 100 mg/ Sodium Chloride/ Miscellaneous Information 100 mls @ 2 mls/ hr IV TITR KATHY; 2 MG/HR PRN Reason: Protocol Last Titration: 09/07/16 14:03 Dose: 0 mg/hr, 0 mls/hr Propofol (Diprivan 10 Mg/Ml) 1,000 mg in 100 mls @ 5.688 mls/hr IV TITR KATHY; 5 MCG/KG/MIN PRN Reason: Protocol Last Titration: 09/07/16 07:00 Dose: 4 mcg/kg/min, 4.55 mls/hr Dopamine HCl/Dextrose (Intropin Drip 800 Mg/D5w 250 Ml) 800 mg in 250 mls @ 7.11 mls/hr IV TITR KATHY; 2 MCG/KG/MIN PRN Reason: Protocol Dextrose/Sodium Chloride (D5ns) 1,000 mls @ 150 mls/hr IV DIRECT KATHY Stop: 09/10/16 18:39 Last Admin: 09/09/16 20:14 Dose: 150 mls/hr Cefepime HCl (Maxipime/Ns 1 Gm/100 Ml) 1 gm in 100 mls @ 200 mls/hr IV Q8H KATHY PRN Reason: Protocol Last Admin: 09/10/16 00:05 Dose: 200 mls/hr Metronidazole (Flagyl 500 Mg/100 Ml) 500 mg in 100 mls @ 100 mls/hr IV Q8H [facility] Last Admin: 09/09/16 23:18 Dose: 100 mls/hr Insulin Aspart (Novolog) 0 units SUB-Q Q6HR [facility] PRN Reason: Protocol Last Admin: 09/10/16 06:16 Dose: 4 units Lactulose (Cephulac) 20 gm PO Q6H PRN PRN Reason: Constipation Levetiracetam (Keppra) 500 mg PO BID [facility] Last Admin: 09/09/16 22:33 Dose: 500 mg Lorazepam (Ativan) 1 mg IV Q5MIN PRN PRN Reason: Seizures Last Admin: 09/05/16 03:05 Dose: 1 mg Magnesium Hydroxide (Milk Of Magnesia) 30 ml PO Q4H PRN PRN Reason: Constipation Methylprednisolone Sodium Succinate (Solu-Medrol) 40 mg IV Q12HR [facility] Last Admin: 09/09/16 22:33 Dose: 40 mg Metoclopramide HCl (Reglan) 10 mg IV Q8HR [facility] Last Admin: 09/10/16 05:21 Dose: 10 mg Midodrine (Proamatine) 10 mg PO Q8HR [facility] Last Admin: 09/10/16 05:21 Dose: 10 mg Multi-Ingred Cream/Lotion/Oil/Oint (Artificial Tears Ophth Oint) 1 applic OU Q4HR PRN PRN Reason: Dry Eye(s) Last Admin: 09/06/16 06:39 Dose: 1 applic Ondansetron HCl (Zofran) 4 mg IV Q8H PRN PRN Reason: N/V unrelieved by Reglan Pantoprazole (Protonix) 40 mg PO QDAY [facility] Last Admin: 09/09/16 09:24 Dose: 40 mg Simple Syrup (Simple Syrup) 15 ml FEEDTUBE PRN PRN PRN Reason: Hypoglycemia Simple Syrup (Simple Syrup) 30 ml FEEDTUBE PRN PRN PRN Reason: Hypoglycemia Sodium Bicarbonate (Sodium Bicarbonate) 325 mg FEEDTUBE PRN PRN PRN Reason: For Clogged Feeding Tube - Imaging and cardiology Chest x-ray: report reviewed (no significant change in CHF pattern)
--- NOTE | 2016-09-10 08:52 | XRay Report ---
CHEST 1 VIEW INDICATION: Respiratory failure followup. COMPARISON: Yesterday. FINDINGS: Portable, frontal chest radiograph, 2:19 AM, 09/10/2016 reveals stable cardiomediastinal silhouette, supporting devices, appearance of the lungs and osseous structures, providing for the difference in technique. CONCLUSION: No significant interval change in CHF pattern. Thank you for the opportunity to participate in this patient's care.
[2016-09-10] MEDS: KEPPRA PO SCH ×2 (09:27→21:08)
[2016-09-10] MEDS: FERROUS SULFATE PO SCH (09:27)
[2016-09-10] MEDS: PROTONIX PO SCH (09:28)
[2016-09-10] MEDS: LOVENOX SUB-Q SCH (09:28)
[2016-09-10] MEDS: FOLVITE PO SCH (09:32)
[2016-09-10] MEDS: FLAGYL 500 MG/100 ML 500 MG/100 ML BAG IV SCH ×2 (09:42→16:32)
--- NOTE | 2016-09-10 10:00 | Progress Note ---
Assessment and Plan Altered mental status Acute respiratory failure intubated on the vent Lactic acidosis Anemia requiring blood transfusion Obesity Decubitus ulcers Sepsis Diabetes AND/DNR status EF 50-55% on echo 06/2016. Conservative cardiac management. Subjective Date of service: 09/10/16 Principal diagnosis: Acute Hypoxemic Hypercapnic Resp Failure; Severe Sepsis Interval history: No interval changes. Patient remains intubated on the vent. Objective Vital Signs Temp Pulse Pulse Pulse Resp Resp BP 09/10/16 08:20 73 23 09/10/16 08:10 80 24 09/10/16 08:00 98.3 F 62 31 H 114/38 09/10/16 07:45 78 27 H 117/39 09/10/16 07:30 76 31 H 123/47 09/10/16 07:15 68 27 H 124/48 09/10/16 07:00 88 32 H 117/49 09/10/16 06:45 81 32 H 122/48 09/10/16 06:30 84 31 H 106/41 09/10/16 06:15 87 26 H 120/56 09/10/16 06:00 89 29 H 121/55 09/10/16 05:45 78 25 H 109/42 09/10/16 05:30 87 27 H 125/49 09/10/16 05:15 87 28 H 126/49 09/10/16 05:00 95 H 18 117/52 09/10/16 04:45 91 H 25 H 126/36 09/10/16 04:30 94 H 15 118/40 09/10/16 04:15 92 H 25 H 130/60 09/10/16 04:00 98.0 F 78 82 25 H 123/55 09/10/16 03:45 81 25 H 127/61 09/10/16 03:30 94 H 26 H 126/60 09/10/16 03:15 81 11 L 128/63 09/10/16 03:00 93 H 35 H 123/55 09/10/16 02:45 95 H 24 114/57 09/10/16 02:30 94 H 12 118/61 09/10/16 02:15 86 16 127/59 09/10/16 02:02 86 28 H 09/10/16 02:00 67 20 118/44 09/10/16 01:55 88 28 H 09/10/16 01:45 82 23 116/44 09/10/16 01:30 77 24 112/54 09/10/16 01:15 88 26 H 108/53 09/10/16 01:00 85 30 H 111/46 09/10/16 00:45 82 26 H 108/52 09/10/16 00:30 70 31 H 100/42 09/10/16 00:15 85 27 H 98/42 09/10/16 00:00 97.9 F 75 32 H 104/38 09/09/16 23:45 81 24 90/35 09/09/16 23:37 78 19 97/37 09/09/16 23:30 86 31 H 97/37 09/09/16 23:15 93 H 28 H 98/39 09/09/16 23:00 95 H 31 H 91/42 09/09/16 22:45 94 H 19 88/40 09/09/16 22:36 75 28 H 81/42 09/09/16 22:30 66 19 79/33 09/09/16 22:15 91 H 34 H 90/35 09/09/16 22:00 88 27 H 91/37 09/09/16 21:45 102 H 29 H 92/38 09/09/16 21:30 113/54 09/09/16 21:15 86 18 113/54 09/09/16 21:00 80 30 H 105/45 09/09/16 20:45 79 32 H 97/40 09/09/16 20:30 81 31 H 108/44 09/09/16 20:15 96 H 33 H 99/46 09/09/16 20:00 67 70 34 H 99/39 09/09/16 19:54 99.0 F 09/09/16 19:52 94 H 33 H 09/09/16 19:49 83 35 H 104/45 09/09/16 19:48 93 H 33 H 09/09/16 19:45 73 34 H 96/41 09/09/16 19:30 94 H 33 H 104/45 09/09/16 19:15 97 H 34 H 91/55 09/09/16 19:00 80 30 H 100/64 09/09/16 18:15 95 H 35 H 121/45 09/09/16 18:00 82 34 H 118/39 09/09/16 17:45 104 H 34 H 108/54 09/09/16 17:30 90 34 H 111/52 09/09/16 17:15 105 H 33 H 121/58 09/09/16 17:00 88 30 H 121/49 09/09/16 16:45 95 H 33 H 118/53 09/09/16 16:30 89 32 H 113/46 09/09/16 16:18 78 33 H 115/45 09/09/16 16:15 101 H 33 H 108/50 09/09/16 16:00 102 H 102 H 33 H 112/49 09/09/16 15:46 99.3 F 09/09/16 15:45 96 H 37 H 110/41 09/09/16 15:30 82 32 H 117/51 09/09/16 15:15 78 33 H 115/45 09/09/16 15:00 99.3 F 100 H 32 H 111/53 09/09/16 14:45 89 33 H 108/43 09/09/16 14:30 99.3 F 99 H 33 H 111/51 09/09/16 14:15 83 34 H 107/44 09/09/16 14:04 71 28 H 09/09/16 14:00 99.3 F 97 H 33 H 107/44 09/09/16 13:55 69 28 H 09/09/16 13:45 94 H 33 H 118/52 09/09/16 13:30 99.4 F 96 H 33 H 115/52 09/09/16 13:15 94 H 36 H 120/53 09/09/16 13:00 98 F 98 H 33 H 116/45 09/09/16 12:47 84 29 H 104/49 09/09/16 12:45 95 H 33 H 112/46 09/09/16 12:30 97 F L 88 31 H 98/37 09/09/16 12:15 92 H 32 H 104/40 09/09/16 12:00 98 F 78 25 H 101/44 09/09/16 11:45 75 31 H 97/42 09/09/16 11:30 98 F 82 30 H 113/44 09/09/16 11:15 97.6 F 88 30 H 102/41 09/09/16 11:00 77 31 H 113/44 09/09/16 10:46 65 31 H 80/34 09/09/16 10:30 73 31 H 84/31 09/09/16 10:15 96 H 31 H 84/39 09/09/16 10:00 69 34 H 89/32 Pulse Ox 09/10/16 08:20 09/10/16 08:10 09/10/16 08:00 94 09/10/16 07:45 96 09/10/16 07:30 94 09/10/16 07:15 100 09/10/16 07:00 94 09/10/16 06:45 96 09/10/16 06:30 96 09/10/16 06:15 97 09/10/16 06:00 97 09/10/16 05:45 95 09/10/16 05:30 95 09/10/16 05:15 95 09/10/16 05:00 96 09/10/16 04:45 94 09/10/16 04:30 96 09/10/16 04:15 09/10/16 04:00 94 09/10/16 03:45 94 09/10/16 03:30 94 09/10/16 03:15 94 09/10/16 03:00 94 09/10/16 02:45 95 09/10/16 02:30 94 09/10/16 02:15 93 09/10/16 02:02 09/10/16 02:00 95 09/10/16 01:55 09/10/16 01:45 92 09/10/16 01:30 92 09/10/16 01:15 94 09/10/16 01:00 92 09/10/16 00:45 94 09/10/16 00:30 93 09/10/16 00:15 94 09/10/16 00:00 100 09/09/16 23:45 95 09/09/16 23:37 96 09/09/16 23:30 96 09/09/16 23:15 92 09/09/16 23:00 94 09/09/16 22:45 95 09/09/16 22:36 97 09/09/16 22:30 95 09/09/16 22:15 94 09/09/16 22:00 97 09/09/16 21:45 97 09/09/16 21:30 98 09/09/16 21:15 96 09/09/16 21:00 96 09/09/16 20:45 95 09/09/16 20:30 09/09/16 20:15 94 09/09/16 20:00 98 09/09/16 19:54 09/09/16 19:52 09/09/16 19:49 99 09/09/16 19:48 09/09/16 19:45 94 09/09/16 19:30 97 09/09/16 19:15 09/09/16 19:00 95 09/09/16 18:15 96 09/09/16 18:00 94 09/09/16 17:45 92 09/09/16 17:30 92 09/09/16 17:15 98 09/09/16 17:00 94 09/09/16 16:45 97 09/09/16 16:30 94 09/09/16 16:18 96 09/09/16 16:15 09/09/16 16:00 96 09/09/16 15:46 09/09/16 15:45 94 09/09/16 15:30 93 09/09/16 15:15 96 09/09/16 15:00 09/09/16 14:45 95 09/09/16 14:30 94 09/09/16 14:15 95 09/09/16 14:04 09/09/16 14:00 93 09/09/16 13:55 09/09/16 13:45 91 09/09/16 13:30 94 09/09/16 13:15 93 09/09/16 13:00 95 09/09/16 12:47 98 09/09/16 12:45 96 09/09/16 12:30 97 09/09/16 12:15 95 09/09/16 12:00 100 09/09/16 11:45 96 09/09/16 11:30 100 09/09/16 11:15 95 09/09/16 11:00 96 09/09/16 10:46 98 09/09/16 10:30 96 09/09/16 10:15 98 09/09/16 10:00 94 - Physical Examination General: Other (intubated on the vent) Cardiac: Positive: Reg Rate and Rhythm - Labs and Meds Cardiac Enzymes 09/09/16 09/10/16 Range/Units 18:10 05:10 AST 253 H 226 H (5-40) units/L Coagulation 09/10/16 Range/Units 05:10 PT 13.8 (12.2-14.9) Sec. INR 1.07 (0.87-1.13) CBC 09/09/16 Range/Units 18:10 WBC 17.0 H (4.5-11.0) K/mm3 RBC 2.90 L (3.65-5.03) M/mm3 Hgb 8.5 L (10.1-14.3) gm/dl Hct 26.1 L (30.3-42.9) % Plt Count 126 L (140-440) K/mm3 Comprehensive Metabolic Panel 09/09/16 09/10/16 Range/Units 18:10 05:10 Sodium 137 138 (137-145) mmol/L Potassium 3.7 3.6 (3.6-5.0) mmol/L Chloride 98.7 99.6 (98-107) mmol/L Carbon Dioxide 25 22 (22-30) mmol/L BUN 36 H 35 H (7-17) mg/dL Creatinine 1.0 1.0 (0.7-1.2) mg/dL Glucose 133 H 240 H (65-100) mg/dL Calcium 6.9 L 6.8 L (8.4-10.2) mg/dL AST 253 H 226 H (5-40) units/L ALT 184 H 171 H (7-56) units/L Alkaline Phosphatase 729 H 710 H (35-129) units/L Total Protein 5.1 L 5.2 L (6.3-8.2) g/dL Albumin 1.7 L 1.7 L (3.9-5) g/dL - Allied health notes Allied health notes reviewed: RT
--- NOTE | 2016-09-10 11:30 | Progress Note ---
Assessment and Plan (1) Respiratory failure Current Visit: Yes Status: Acute Qualifiers: Chronicity: C Respiratory failure complication: R Plan to address problem: - continue daytime PSV trials as tolerated - VAP bundle addressed - continue to Wean FIO2 for O2 sats>92% - continue VTE prophylaxis (SCD's re: thrombocytopenia) - continue Stress ulcer prophylaxis (Pantoprazole) - continuing sedation vacations while watching for any obvious seizure activity - continue Lung protective strategies - she needs a tracheostomy and consult placed - LTAC evaluation ongoing and family refuses to sign for tracheostomy in meantime (2) Shock Current Visit: Yes Status: Acute Plan to address problem: - Treated as septic shock secondary to HCAP - on low dose levophed - continue strict glycemic control - completed AB's course; trending WBC - ID following - On steroid therapy for possible COPD with AE (but also possible relative adrenal insufficiency)(weaning slowly) - will change to stress dosed solucortef - continue midodrine (3) Acute on chronic diastolic (congestive) heart failure Current Visit: No Status: Acute Plan to address problem: - Documented EF 55% - CVP's 8-9; diuretics on hold - Continue to monitoring renal function and electrolyte profile closely - Monitor urine output, electrolyte profile (4) Altered mental status Current Visit: Yes Status: Acute Qualifiers: Altered mental status type: unspecified Coma depth: C Coma timing: C Qualified Code(s): R41.82 - Altered mental status, unspecified Plan to address problem: - Neurology following - on keppra - weaned off ativan and will use prn now - follow TSH level (5) Morbid obesity Current Visit: Yes Status: Acute Qualifiers: Obesity type: unspecified obesity type Qualified Code(s): E66.01 - Morbid ( severe) obesity due to excess calories - weight loss strategies once more stable - caloric intake per tax services manager at this point (6) Anemia Current Visit: Yes Status: Acute Qualifiers: Anemia type: unspecified type Iron deficiency anemia type: I Vitamin B12 deficiency anemia type: V Folate deficiency anemia type: F Bone marrow failure anemia type: B Hemolytic anemia type: H Other causes of anemia: O Qualified Code(s): D64.9 - Anemia, unspecified Plan to address problem: - no more coffee grounds noted - continuing PPI therapy - continue reglan - continue tube feeding (7) Status epilepticus Current Visit: Yes Status: Acute Plan to address problem: - Continue AEDs - Neurology following - no obvious clinical seizure activity (8) 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 - This could be secondary to an intra-cranial process, however unable to obtain neuro-imaging, patient's weight exceeds allowable maximum (9) Discharge planning issues Current Visit: Yes Status: Acute Plan to address problem: - Continue current care. - need to determine appropriate power of insurance defense attorney / legal healthcare sales representative electric service prior to any tentative withdrawal of care - son came by and signed DNR order however no concencus on hospice care / withdrawal - transfer to LTAC once bed available ..she remains critically ill on life sustaining interventions including MVS and at high risk for further deterioration including ....30' CCT Subjective Date of service: 09/10/16 Principal diagnosis: Acute Hypoxemic Hypercapnic Resp Failure; Severe Sepsis Interval history: Seen and examined at bedside; 24 hour events reviewed; nursing and respiratory care staff consulted; no adverse overnight events reported to me; remains on MVS ; AMS is persistent; tolerating PSV trials albeit tenuously at times Objective Vital Signs - 12hr 09/09/16 09/09/16 09/10/16 23:37 23:45 00:00 Temperature 97.9 F Pulse Rate 78 81 75 Pulse Rate [ Anterior Bilateral Throughout] Pulse Rate [ From Monitor] Respiratory 19 24 32 H Rate Respiratory Rate [Anterior Bilateral Throughout] Blood Pressure 97/37 90/35 104/38 O2 Sat by Pulse 96 95 100 Oximetry 09/10/16 09/10/16 09/10/16 00:15 00:30 00:45 Temperature Pulse Rate 85 70 82 Pulse Rate [ Anterior Bilateral Throughout] Pulse Rate [ From Monitor] Respiratory 27 H 31 H 26 H Rate Respiratory Rate [Anterior Bilateral Throughout] Blood Pressure 98/42 100/42 108/52 O2 Sat by Pulse 94 93 94 Oximetry 09/10/16 09/10/16 09/10/16 01:00 01:15 01:30 Temperature Pulse Rate 85 88 77 Pulse Rate [ Anterior Bilateral Throughout] Pulse Rate [ From Monitor] Respiratory 30 H 26 H 24 Rate Respiratory Rate [Anterior Bilateral Throughout] Blood Pressure 111/46 108/53 112/54 O2 Sat by Pulse 92 94 92 Oximetry 09/10/16 09/10/16 09/10/16 01:45 01:55 02:00 Temperature Pulse Rate 82 67 Pulse Rate [ 88 Anterior Bilateral Throughout] Pulse Rate [ From Monitor] Respiratory 23 20 Rate Respiratory 28 H Rate [Anterior Bilateral Throughout] Blood Pressure 116/44 118/44 O2 Sat by Pulse 92 95 Oximetry 09/10/16 09/10/16 09/10/16 02:02 02:15 02:30 Temperature Pulse Rate 86 94 H Pulse Rate [ 86 Anterior Bilateral Throughout] Pulse Rate [ From Monitor] Respiratory 16 12 Rate Respiratory 28 H Rate [Anterior Bilateral Throughout] Blood Pressure 127/59 118/61 O2 Sat by Pulse 93 94 Oximetry 09/10/16 09/10/16 09/10/16 02:45 03:00 03:15 Temperature Pulse Rate 95 H 93 H 81 Pulse Rate [ Anterior Bilateral Throughout] Pulse Rate [ From Monitor] Respiratory 24 35 H 11 L Rate Respiratory Rate [Anterior Bilateral Throughout] Blood Pressure 114/57 123/55 128/63 O2 Sat by Pulse 95 94 94 Oximetry 09/10/16 09/10/16 09/10/16 03:30 03:45 04:00 Temperature 98.0 F Pulse Rate 94 H 81 78 Pulse Rate [ Anterior Bilateral Throughout] Pulse Rate [ 82 From Monitor] Respiratory 26 H 25 H 25 H Rate Respiratory Rate [Anterior Bilateral Throughout] Blood Pressure 126/60 127/61 123/55 O2 Sat by Pulse 94 94 94 Oximetry 09/10/16 09/10/16 09/10/16 04:15 04:30 04:45 Temperature Pulse Rate 92 H 94 H 91 H Pulse Rate [ Anterior Bilateral Throughout] Pulse Rate [ From Monitor] Respiratory 25 H 15 25 H Rate Respiratory Rate [Anterior Bilateral Throughout] Blood Pressure 130/60 118/40 126/36 O2 Sat by Pulse 96 94 Oximetry 09/10/16 09/10/16 09/10/16 05:00 05:15 05:30 Temperature Pulse Rate 95 H 87 87 Pulse Rate [ Anterior Bilateral Throughout] Pulse Rate [ From Monitor] Respiratory 18 28 H 27 H Rate Respiratory Rate [Anterior Bilateral Throughout] Blood Pressure 117/52 126/49 125/49 O2 Sat by Pulse 96 95 95 Oximetry 09/10/16 09/10/16 09/10/16 05:45 06:00 06:15 Temperature Pulse Rate 78 89 87 Pulse Rate [ Anterior Bilateral Throughout] Pulse Rate [ From Monitor] Respiratory 25 H 29 H 26 H Rate Respiratory Rate [Anterior Bilateral Throughout] Blood Pressure 109/42 121/55 120/56 O2 Sat by Pulse 95 97 97 Oximetry 09/10/16 09/10/16 09/10/16 06:30 06:45 07:00 Temperature Pulse Rate 84 81 88 Pulse Rate [ Anterior Bilateral Throughout] Pulse Rate [ From Monitor] Respiratory 31 H 32 H 32 H Rate Respiratory Rate [Anterior Bilateral Throughout] Blood Pressure 106/41 122/48 117/49 O2 Sat by Pulse 96 96 94 Oximetry 09/10/16 09/10/16 09/10/16 07:15 07:30 07:45 Temperature Pulse Rate 68 76 78 Pulse Rate [ Anterior Bilateral Throughout] Pulse Rate [ From Monitor] Respiratory 27 H 31 H 27 H Rate Respiratory Rate [Anterior Bilateral Throughout] Blood Pressure 124/48 123/47 117/39 O2 Sat by Pulse 100 94 96 Oximetry 09/10/16 09/10/16 09/10/16 08:00 08:10 08:20 Temperature 98.3 F Pulse Rate 62 Pulse Rate [ 80 73 Anterior Bilateral Throughout] Pulse Rate [ From Monitor] Respiratory 31 H Rate Respiratory 24 23 Rate [Anterior Bilateral Throughout] Blood Pressure 114/38 O2 Sat by Pulse 94 Oximetry 09/10/16 11:25 Temperature Pulse Rate 83 Pulse Rate [ Anterior Bilateral Throughout] Pulse Rate [ From Monitor] Respiratory 30 H Rate Respiratory Rate [Anterior Bilateral Throughout] Blood Pressure 128/41 O2 Sat by Pulse 199 H Oximetry Constitutional: no acute distress, other (obtunded) Eyes: non-icteric ENT: oropharynx moist Neck: supple, no lymphadenopathy Effort: mildly labored Ascultation: Bilateral: clear, diminished breath sounds (bases) Cardiovascular: regular rate and rhythm Gastrointestinal: normoactive bowel sounds, soft, non-distended Integumentary: normal Extremities: no cyanosis, pink and warm, pulses normal, no ischemia or petechiae , edema (trace) Neurologic: unable to assess, other (off sedation now) Psychiatric: other (sedated) CBC and BMP: 09/09/16 18:10 09/10/16 05:10 ABG, PT/INR, D-dimer: ABG POC ABG pH 7.454 (7.35-7.45) H 09/09/16 12:33 POC ABG pCO2 38.4 (35-45) 09/09/16 12:33 POC ABG pO2 75 (80-105) L 09/09/16 12:33 POC ABG HCO3 27.0 09/09/16 12:33 POC ABG Total CO2 28 09/09/16 12:33 POC ABG O2 Sat 96 09/09/16 12:33 PT/INR, D-dimer PT 13.8 Sec. (12.2-14.9) 09/10/16 05:10 INR 1.07 (0.87-1.13) 09/10/16 05:10 Abnormal lab findings: Abnormal Labs 08/29/16 08/30/16 08/30/16 21:59 00:16 05:39 WBC RBC Hgb Hct MCH MCHC RDW Plt Count Seg Neutrophils % Seg Neuts % (Manual) Nucleated RBC % Seg Neutrophils # Seg Neutrophils # Man PT INR POC ABG pH POC ABG pCO2 POC ABG pO2 Sodium Potassium Chloride Carbon Dioxide BUN Creatinine Glucose POC Glucose 106 H 128 H Lactic Acid Calcium Total Bilirubin AST ALT Alkaline Phosphatase Ammonia Troponin T C-Reactive Protein Total Protein Albumin Prealbumin 0.120 L TSH Crossmatch 08/30/16 08/30/16 08/30/16 10:30 10:30 11:12 WBC 11.1 H RBC 3.16 L Hgb 8.7 L Hct 29.9 L MCH MCHC 29 L RDW 25.0 H Plt Count Seg Neutrophils % 78.6 H Seg Neuts % (Manual) Nucleated RBC % Seg Neutrophils # 8.7 H Seg Neutrophils # Man PT INR POC ABG pH POC ABG pCO2 POC ABG pO2 Sodium 135 L Potassium Chloride Carbon Dioxide 20 L BUN Creatinine 1.5 H Glucose 148 H POC Glucose 142 H Lactic Acid Calcium 7.2 L Total Bilirubin 1.30 H AST 143 H ALT Alkaline Phosphatase 392 H Ammonia Troponin T C-Reactive Protein Total Protein 6.1 L Albumin 1.2 L Prealbumin TSH Crossmatch 08/30/16 08/30/16 08/30/16 17:41 18:03 18:18 WBC RBC Hgb Hct MCH MCHC RDW Plt Count Seg Neutrophils % Seg Neuts % (Manual) Nucleated RBC % Seg Neutrophils # Seg Neutrophils # Man PT INR POC ABG pH 7.316 L POC ABG pCO2 POC ABG pO2 44 L 59 L Sodium Potassium Chloride Carbon Dioxide BUN Creatinine Glucose POC Glucose 150 H Lactic Acid Calcium Total Bilirubin AST ALT Alkaline Phosphatase Ammonia Troponin T C-Reactive Protein Total Protein Albumin Prealbumin TSH Crossmatch 08/30/16 08/30/16 08/31/16 22:20 22:20 00:11 WBC RBC Hgb Hct MCH MCHC RDW Plt Count Seg Neutrophils % Seg Neuts % (Manual) Nucleated RBC % Seg Neutrophils # Seg Neutrophils # Man PT INR POC ABG pH POC ABG pCO2 POC ABG pO2 Sodium Potassium Chloride Carbon Dioxide BUN Creatinine Glucose POC Glucose 133 H Lactic Acid 2.30 H* Calcium Total Bilirubin AST ALT Alkaline Phosphatase Ammonia Troponin T C-Reactive Protein 10.20 H Total Protein Albumin Prealbumin TSH Crossmatch 08/31/16 08/31/16 08/31/16 04:20 04:20 04:20 WBC 18.3 H RBC 3.19 L Hgb 8.8 L Hct 30.0 L MCH 27 L MCHC 29 L RDW 23.9 H Plt Count Seg Neutrophils % Seg Neuts % (Manual) Nucleated RBC % Seg Neutrophils # Seg Neutrophils # Man PT 16.8 H INR 1.37 H POC ABG pH POC ABG pCO2 POC ABG pO2 Sodium 136 L Potassium Chloride Carbon Dioxide 19 L BUN Creatinine 1.5 H Glucose 125 H POC Glucose Lactic Acid Calcium 7.0 L Total Bilirubin 1.50 H AST 131 H ALT Alkaline Phosphatase 431 H Ammonia Troponin T C-Reactive Protein Total Protein 6.2 L Albumin 1.2 L Prealbumin TSH Crossmatch 08/31/16 08/31/16 08/31/16 04:20 05:22 05:24 WBC RBC Hgb Hct MCH MCHC RDW Plt Count Seg Neutrophils % Seg Neuts % (Manual) Nucleated RBC % Seg Neutrophils # Seg Neutrophils # Man PT INR POC ABG pH POC ABG pCO2 POC ABG pO2 142 H Sodium Potassium Chloride Carbon Dioxide BUN Creatinine Glucose POC Glucose 123 H Lactic Acid Calcium Total Bilirubin AST ALT Alkaline Phosphatase Ammonia 70.0 H Troponin T C-Reactive Protein Total Protein Albumin Prealbumin TSH Crossmatch 08/31/16 08/31/16 08/31/16 12:10 15:45 17:38 WBC RBC Hgb Hct MCH MCHC RDW Plt Count Seg Neutrophils % Seg Neuts % (Manual) Nucleated RBC % Seg Neutrophils # Seg Neutrophils # Man PT INR POC ABG pH POC ABG pCO2 POC ABG pO2 Sodium 136 L Potassium Chloride Carbon Dioxide 21 L BUN Creatinine 1.5 H Glucose 160 H POC Glucose 147 H 151 H Lactic Acid Calcium 6.9 L Total Bilirubin AST ALT Alkaline Phosphatase Ammonia Troponin T 0.109 H* D C-Reactive Protein Total Protein Albumin Prealbumin TSH Crossmatch 09/01/16 09/01/16 09/01/16 00:09 04:00 04:00 WBC 14.8 H RBC 2.89 L Hgb 7.8 L Hct 27.2 L MCH 27 L MCHC 29 L RDW 24.4 H Plt Count Seg Neutrophils % Seg Neuts % (Manual) Nucleated RBC % Seg Neutrophils # Seg Neutrophils # Man PT 18.2 H INR 1.51 H POC ABG pH POC ABG pCO2 POC ABG pO2 Sodium Potassium Chloride Carbon Dioxide BUN Creatinine Glucose POC Glucose 192 H Lactic Acid Calcium Total Bilirubin AST ALT Alkaline Phosphatase Ammonia Troponin T C-Reactive Protein Total Protein Albumin Prealbumin TSH Crossmatch 09/01/16 09/01/16 09/01/16 04:00 05:28 11:28 WBC RBC Hgb Hct MCH MCHC RDW Plt Count Seg Neutrophils % Seg Neuts % (Manual) Nucleated RBC % Seg Neutrophils # Seg Neutrophils # Man PT INR POC ABG pH POC ABG pCO2 POC ABG pO2 Sodium Potassium Chloride Carbon Dioxide 20 L BUN Creatinine 1.6 H Glucose 183 H POC Glucose 189 H 207 H Lactic Acid Calcium 6.9 L Total Bilirubin 1.30 H AST 138 H ALT Alkaline Phosphatase 520 H Ammonia Troponin T C-Reactive Protein Total Protein 6.1 L Albumin 1.2 L Prealbumin TSH Crossmatch 09/01/16 09/01/16 09/02/16 16:56 23:49 05:00 WBC RBC Hgb Hct MCH MCHC RDW Plt Count Seg Neutrophils % Seg Neuts % (Manual) Nucleated RBC % Seg Neutrophils # Seg Neutrophils # Man PT 18.0 H INR 1.49 H POC ABG pH POC ABG pCO2 POC ABG pO2 Sodium Potassium Chloride Carbon Dioxide BUN Creatinine Glucose POC Glucose 250 H 307 H Lactic Acid Calcium Total Bilirubin AST ALT Alkaline Phosphatase Ammonia Troponin T C-Reactive Protein Total Protein Albumin Prealbumin TSH Crossmatch 09/02/16 09/02/16 09/02/16 05:00 05:00 05:45 WBC 12.3 H RBC 2.57 L Hgb 7.1 L Hct 23.4 L MCH MCHC RDW 23.9 H Plt Count Seg Neutrophils % Seg Neuts % (Manual) 72.0 H Nucleated RBC % 25.0 H Seg Neutrophils # Seg Neutrophils # Man 8.9 H PT INR POC ABG pH POC ABG pCO2 POC ABG pO2 Sodium Potassium Chloride Carbon Dioxide BUN Creatinine 1.4 H Glucose 299 H POC Glucose 327 H Lactic Acid Calcium 7.0 L Total Bilirubin AST ALT Alkaline Phosphatase Ammonia Troponin T C-Reactive Protein Total Protein Albumin Prealbumin TSH Crossmatch 09/02/16 09/02/16 09/02/16 12:22 17:22 23:24 WBC RBC Hgb Hct MCH MCHC RDW Plt Count Seg Neutrophils % Seg Neuts % (Manual) Nucleated RBC % Seg Neutrophils # Seg Neutrophils # Man PT INR POC ABG pH POC ABG pCO2 POC ABG pO2 Sodium Potassium Chloride Carbon Dioxide BUN Creatinine Glucose POC Glucose 310 H 358 H 286 H Lactic Acid Calcium Total Bilirubin AST ALT Alkaline Phosphatase Ammonia Troponin T C-Reactive Protein Total Protein Albumin Prealbumin TSH Crossmatch 09/03/16 09/03/16 09/03/16 04:10 04:10 04:10 WBC 11.8 H RBC 2.29 L Hgb 6.1 L Hct 21.0 L MCH 27 L MCHC 29 L RDW 24.1 H Plt Count Seg Neutrophils % Seg Neuts % (Manual) Nucleated RBC % Seg Neutrophils # Seg Neutrophils # Man PT 17.6 H INR 1.45 H POC ABG pH POC ABG pCO2 POC ABG pO2 Sodium Potassium Chloride Carbon Dioxide BUN Creatinine 1.4 H Glucose 301 H POC Glucose Lactic Acid Calcium 7.0 L Total Bilirubin AST ALT Alkaline Phosphatase Ammonia Troponin T C-Reactive Protein Total Protein Albumin Prealbumin TSH Crossmatch 09/03/16 09/03/16 09/03/16 05:59 11:36 17:42 WBC RBC Hgb Hct MCH MCHC RDW Plt Count Seg Neutrophils % Seg Neuts % (Manual) Nucleated RBC % Seg Neutrophils # Seg Neutrophils # Man PT INR POC ABG pH POC ABG pCO2 POC ABG pO2 Sodium Potassium Chloride Carbon Dioxide BUN Creatinine Glucose POC Glucose 351 H 285 H 259 H Lactic Acid Calcium Total Bilirubin AST ALT Alkaline Phosphatase Ammonia Troponin T C-Reactive Protein Total Protein Albumin Prealbumin TSH Crossmatch 09/03/16 09/04/16 09/04/16 23:00 04:27 05:36 WBC RBC Hgb Hct MCH MCHC RDW Plt Count Seg Neutrophils % Seg Neuts % (Manual) Nucleated RBC % Seg Neutrophils # Seg Neutrophils # Man PT INR POC ABG pH 7.544 H POC ABG pCO2 30.8 L POC ABG pO2 78 L Sodium Potassium Chloride Carbon Dioxide BUN Creatinine Glucose POC Glucose 192 H 228 H Lactic Acid Calcium Total Bilirubin AST ALT Alkaline Phosphatase Ammonia Troponin T C-Reactive Protein Total Protein Albumin Prealbumin TSH Crossmatch 09/04/16 09/04/16 09/04/16 06:37 06:37 06:39 WBC 21.0 H RBC 2.22 L Hgb 6.0 L Hct 20.1 L MCH 27 L MCHC RDW 24.3 H Plt Count Seg Neutrophils % Seg Neuts % (Manual) Nucleated RBC % Seg Neutrophils # Seg Neutrophils # Man PT 16.8 H INR 1.37 H POC ABG pH POC ABG pCO2 POC ABG pO2 Sodium Potassium Chloride Carbon Dioxide BUN Creatinine 1.4 H Glucose 201 H POC Glucose Lactic Acid Calcium 7.1 L Total Bilirubin AST ALT Alkaline Phosphatase Ammonia Troponin T C-Reactive Protein Total Protein Albumin Prealbumin TSH Crossmatch 09/04/16 09/04/16 09/04/16 12:14 15:47 17:41 WBC RBC Hgb Hct MCH MCHC RDW Plt Count Seg Neutrophils % Seg Neuts % (Manual) Nucleated RBC % Seg Neutrophils # Seg Neutrophils # Man PT INR POC ABG pH POC ABG pCO2 POC ABG pO2 Sodium Potassium Chloride Carbon Dioxide BUN Creatinine Glucose POC Glucose 176 H 218 H Lactic Acid Calcium Total Bilirubin AST ALT Alkaline Phosphatase Ammonia Troponin T C-Reactive Protein Total Protein Albumin Prealbumin TSH Crossmatch See Detail 09/04/16 09/04/16 09/05/16 21:59 23:48 04:30 WBC RBC Hgb Hct MCH MCHC RDW Plt Count Seg Neutrophils % Seg Neuts % (Manual) Nucleated RBC % Seg Neutrophils # Seg Neutrophils # Man PT 17.2 H INR 1.41 H POC ABG pH POC ABG pCO2 POC ABG pO2 Sodium Potassium Chloride Carbon Dioxide BUN Creatinine Glucose POC Glucose 170 H 121 H Lactic Acid Calcium Total Bilirubin AST ALT Alkaline Phosphatase Ammonia Troponin T C-Reactive Protein Total Protein Albumin Prealbumin TSH Crossmatch 09/05/16 09/05/16 09/05/16 04:30 04:30 05:09 WBC 31.9 H RBC 3.11 L Hgb 8.5 L Hct 28.3 L D MCH 27 L MCHC RDW 21.0 H Plt Count Seg Neutrophils % Seg Neuts % (Manual) Nucleated RBC % Seg Neutrophils # Seg Neutrophils # Man PT INR POC ABG pH 7.226 L POC ABG pCO2 61.6 H POC ABG pO2 68 L Sodium 134 L Potassium 5.5 H Chloride 96.6 L Carbon Dioxide BUN 23 H Creatinine 1.6 H Glucose 116 H POC Glucose Lactic Acid Calcium 7.1 L Total Bilirubin AST ALT Alkaline Phosphatase Ammonia Troponin T C-Reactive Protein Total Protein Albumin Prealbumin TSH Crossmatch 09/05/16 09/05/16 09/05/16 05:33 12:08 17:32 WBC RBC Hgb Hct MCH MCHC RDW Plt Count Seg Neutrophils % Seg Neuts % (Manual) Nucleated RBC % Seg Neutrophils # Seg Neutrophils # Man PT INR POC ABG pH POC ABG pCO2 POC ABG pO2 Sodium Potassium Chloride Carbon Dioxide BUN Creatinine Glucose POC Glucose 114 H 147 H 174 H Lactic Acid Calcium Total Bilirubin AST ALT Alkaline Phosphatase Ammonia Troponin T C-Reactive Protein Total Protein Albumin Prealbumin TSH Crossmatch 09/06/16 09/06/16 09/06/16 03:30 03:30 03:30 WBC 25.4 H RBC 2.57 L Hgb 7.2 L Hct 22.8 L MCH MCHC RDW 20.9 H Plt Count 138 L Seg Neutrophils % Seg Neuts % (Manual) Nucleated RBC % Seg Neutrophils # Seg Neutrophils # Man PT 16.4 H INR 1.33 H POC ABG pH POC ABG pCO2 POC ABG pO2 Sodium Potassium Chloride Carbon Dioxide BUN 36 H Creatinine 1.9 H Glucose POC Glucose Lactic Acid Calcium 7.2 L Total Bilirubin AST ALT Alkaline Phosphatase Ammonia Troponin T C-Reactive Protein Total Protein Albumin Prealbumin TSH Crossmatch 09/06/16 09/06/16 09/06/16 11:07 12:03 14:44 WBC RBC Hgb Hct MCH MCHC RDW Plt Count Seg Neutrophils % Seg Neuts % (Manual) Nucleated RBC % Seg Neutrophils # Seg Neutrophils # Man PT INR POC ABG pH POC ABG pCO2 POC ABG pO2 Sodium Potassium Chloride Carbon Dioxide BUN Creatinine Glucose POC Glucose 61 L 55 L Lactic Acid Calcium Total Bilirubin AST ALT Alkaline Phosphatase Ammonia Troponin T 0.080 H C-Reactive Protein Total Protein Albumin Prealbumin TSH Crossmatch 09/06/16 09/06/16 09/07/16 21:05 23:53 03:36 WBC RBC Hgb Hct MCH MCHC RDW Plt Count Seg Neutrophils % Seg Neuts % (Manual) Nucleated RBC % Seg Neutrophils # Seg Neutrophils # Man PT INR POC ABG pH POC ABG pCO2 POC ABG pO2 Sodium Potassium Chloride Carbon Dioxide BUN Creatinine Glucose POC Glucose 140 H 178 H 243 H Lactic Acid Calcium Total Bilirubin AST ALT Alkaline Phosphatase Ammonia Troponin T C-Reactive Protein Total Protein Albumin Prealbumin TSH Crossmatch 09/07/16 09/07/16 09/07/16 03:42 03:42 05:04 WBC 17.3 H RBC 2.69 L Hgb 7.6 L Hct 23.8 L MCH MCHC RDW 20.5 H Plt Count 137 L Seg Neutrophils % Seg Neuts % (Manual) Nucleated RBC % Seg Neutrophils # Seg Neutrophils # Man PT INR POC ABG pH POC ABG pCO2 POC ABG pO2 Sodium Potassium 3.3 L Chloride Carbon Dioxide BUN 38 H Creatinine 1.6 H Glucose 201 H POC Glucose 241 H Lactic Acid Calcium 7.4 L Total Bilirubin AST ALT Alkaline Phosphatase Ammonia Troponin T C-Reactive Protein Total Protein Albumin Prealbumin TSH Crossmatch 09/07/16 09/07/16 09/07/16 11:46 17:41 23:18 WBC RBC Hgb Hct MCH MCHC RDW Plt Count Seg Neutrophils % Seg Neuts % (Manual) Nucleated RBC % Seg Neutrophils # Seg Neutrophils # Man PT INR POC ABG pH POC ABG pCO2 POC ABG pO2 Sodium Potassium Chloride Carbon Dioxide BUN Creatinine Glucose POC Glucose 313 H 227 H 116 H Lactic Acid Calcium Total Bilirubin AST ALT Alkaline Phosphatase Ammonia Troponin T C-Reactive Protein Total Protein Albumin Prealbumin TSH Crossmatch 09/08/16 09/08/16 09/08/16 04:00 04:00 05:15 WBC 18.4 H RBC 2.43 L Hgb 6.9 L Hct 21.5 L MCH MCHC RDW 20.5 H Plt Count 119 L Seg Neutrophils % Seg Neuts % (Manual) Nucleated RBC % Seg Neutrophils # Seg Neutrophils # Man PT INR POC ABG pH 7.458 H POC ABG pCO2 POC ABG pO2 177 H Sodium Potassium 3.5 L Chloride Carbon Dioxide BUN 37 H Creatinine 1.3 H Glucose POC Glucose Lactic Acid Calcium 7.1 L Total Bilirubin AST ALT Alkaline Phosphatase Ammonia Troponin T C-Reactive Protein Total Protein Albumin Prealbumin TSH Crossmatch 09/08/16 09/08/16 09/08/16 11:00 15:58 23:16 WBC RBC Hgb Hct MCH MCHC RDW Plt Count Seg Neutrophils % Seg Neuts % (Manual) Nucleated RBC % Seg Neutrophils # Seg Neutrophils # Man PT INR POC ABG pH POC ABG pCO2 POC ABG pO2 113 H Sodium Potassium Chloride Carbon Dioxide BUN Creatinine Glucose POC Glucose 40 L Lactic Acid Calcium Total Bilirubin AST ALT Alkaline Phosphatase Ammonia Troponin T C-Reactive Protein Total Protein Albumin Prealbumin TSH Crossmatch See Detail 09/09/16 09/09/16 09/09/16 05:02 12:33 18:10 WBC RBC Hgb Hct MCH MCHC RDW Plt Count Seg Neutrophils % Seg Neuts % (Manual) Nucleated RBC % Seg Neutrophils # Seg Neutrophils # Man PT INR POC ABG pH 7.454 H POC ABG pCO2 POC ABG pO2 75 L Sodium Potassium Chloride Carbon Dioxide BUN Creatinine Glucose POC Glucose 59 L Lactic Acid Calcium Total Bilirubin AST ALT Alkaline Phosphatase Ammonia Troponin T C-Reactive Protein Total Protein Albumin Prealbumin TSH 5.220 H Crossmatch 09/09/16 09/09/16 09/09/16 18:10 18:10 18:42 WBC 17.0 H RBC 2.90 L Hgb 8.5 L Hct 26.1 L MCH MCHC RDW 17.9 H Plt Count 126 L Seg Neutrophils % Seg Neuts % (Manual) Nucleated RBC % Seg Neutrophils # Seg Neutrophils # Man PT INR POC ABG pH POC ABG pCO2 POC ABG pO2 Sodium Potassium Chloride Carbon Dioxide BUN 36 H Creatinine Glucose 133 H POC Glucose 148 H Lactic Acid Calcium 6.9 L Total Bilirubin AST 253 H ALT 184 H Alkaline Phosphatase 729 H Ammonia Troponin T C-Reactive Protein Total Protein 5.1 L Albumin 1.7 L Prealbumin TSH Crossmatch 09/09/16 09/10/16 23:22 05:10 WBC RBC Hgb Hct MCH MCHC RDW Plt Count Seg Neutrophils % Seg Neuts % (Manual) Nucleated RBC % Seg Neutrophils # Seg Neutrophils # Man PT INR POC ABG pH POC ABG pCO2 POC ABG pO2 Sodium Potassium Chloride Carbon Dioxide BUN 35 H Creatinine Glucose 240 H POC Glucose 170 H Lactic Acid Calcium 6.8 L Total Bilirubin AST 226 H ALT 171 H Alkaline Phosphatase 710 H Ammonia Troponin T C-Reactive Protein Total Protein 5.2 L Albumin 1.7 L Prealbumin TSH Crossmatch Allied health notes reviewed: RT
--- NOTE | 2016-09-10 12:56 | Progress Note ---
Assessment and Plan - Patient Problems (1) Respiratory failure Current Visit: Yes Status: Acute Qualifiers: Chronicity: C Respiratory failure complication: R Plan to address problem: We were asked to place Trach and PEG spoke with Dr. Robledo and patient's sister ( Leanne)- patient to have Trach and PEG at LTAC we will sign-off thanks Subjective Date of service: 09/10/16 Patient Reports: Positive: other (on vent; significant other at bedside ( Tad)) Objective Vital Signs - 12hr 09/10/16 09/10/16 09/10/16 01:00 01:15 01:30 Temperature Pulse Rate 85 88 77 Pulse Rate [ Anterior Bilateral Throughout] Pulse Rate [ From Monitor] Respiratory 30 H 26 H 24 Rate Respiratory Rate [Anterior Bilateral Throughout] Blood Pressure 111/46 108/53 112/54 O2 Sat by Pulse 92 94 92 Oximetry 09/10/16 09/10/16 09/10/16 01:45 01:55 02:00 Temperature Pulse Rate 82 67 Pulse Rate [ 88 Anterior Bilateral Throughout] Pulse Rate [ From Monitor] Respiratory 23 20 Rate Respiratory 28 H Rate [Anterior Bilateral Throughout] Blood Pressure 116/44 118/44 O2 Sat by Pulse 92 95 Oximetry 09/10/16 09/10/16 09/10/16 02:02 02:15 02:30 Temperature Pulse Rate 86 94 H Pulse Rate [ 86 Anterior Bilateral Throughout] Pulse Rate [ From Monitor] Respiratory 16 12 Rate Respiratory 28 H Rate [Anterior Bilateral Throughout] Blood Pressure 127/59 118/61 O2 Sat by Pulse 93 94 Oximetry 09/10/16 09/10/16 09/10/16 02:45 03:00 03:15 Temperature Pulse Rate 95 H 93 H 81 Pulse Rate [ Anterior Bilateral Throughout] Pulse Rate [ From Monitor] Respiratory 24 35 H 11 L Rate Respiratory Rate [Anterior Bilateral Throughout] Blood Pressure 114/57 123/55 128/63 O2 Sat by Pulse 95 94 94 Oximetry 09/10/16 09/10/16 09/10/16 03:30 03:45 04:00 Temperature 98.0 F Pulse Rate 94 H 81 78 Pulse Rate [ Anterior Bilateral Throughout] Pulse Rate [ 82 From Monitor] Respiratory 26 H 25 H 25 H Rate Respiratory Rate [Anterior Bilateral Throughout] Blood Pressure 126/60 127/61 123/55 O2 Sat by Pulse 94 94 94 Oximetry 09/10/16 09/10/16 09/10/16 04:15 04:30 04:45 Temperature Pulse Rate 92 H 94 H 91 H Pulse Rate [ Anterior Bilateral Throughout] Pulse Rate [ From Monitor] Respiratory 25 H 15 25 H Rate Respiratory Rate [Anterior Bilateral Throughout] Blood Pressure 130/60 118/40 126/36 O2 Sat by Pulse 96 94 Oximetry 09/10/16 09/10/16 09/10/16 05:00 05:15 05:30 Temperature Pulse Rate 95 H 87 87 Pulse Rate [ Anterior Bilateral Throughout] Pulse Rate [ From Monitor] Respiratory 18 28 H 27 H Rate Respiratory Rate [Anterior Bilateral Throughout] Blood Pressure 117/52 126/49 125/49 O2 Sat by Pulse 96 95 95 Oximetry 09/10/16 09/10/16 09/10/16 05:45 06:00 06:15 Temperature Pulse Rate 78 89 87 Pulse Rate [ Anterior Bilateral Throughout] Pulse Rate [ From Monitor] Respiratory 25 H 29 H 26 H Rate Respiratory Rate [Anterior Bilateral Throughout] Blood Pressure 109/42 121/55 120/56 O2 Sat by Pulse 95 97 97 Oximetry 09/10/16 09/10/16 09/10/16 06:30 06:45 07:00 Temperature Pulse Rate 84 81 88 Pulse Rate [ Anterior Bilateral Throughout] Pulse Rate [ From Monitor] Respiratory 31 H 32 H 32 H Rate Respiratory Rate [Anterior Bilateral Throughout] Blood Pressure 106/41 122/48 117/49 O2 Sat by Pulse 96 96 94 Oximetry 09/10/16 09/10/16 09/10/16 07:15 07:30 07:45 Temperature Pulse Rate 68 76 78 Pulse Rate [ Anterior Bilateral Throughout] Pulse Rate [ From Monitor] Respiratory 27 H 31 H 27 H Rate Respiratory Rate [Anterior Bilateral Throughout] Blood Pressure 124/48 123/47 117/39 O2 Sat by Pulse 100 94 96 Oximetry 09/10/16 09/10/16 09/10/16 08:00 08:10 08:20 Temperature 98.3 F Pulse Rate 62 Pulse Rate [ 80 73 Anterior Bilateral Throughout] Pulse Rate [ From Monitor] Respiratory 31 H Rate Respiratory 24 23 Rate [Anterior Bilateral Throughout] Blood Pressure 114/38 O2 Sat by Pulse 94 Oximetry 09/10/16 09/10/16 11:25 12:00 Temperature 98.7 F Pulse Rate 83 Pulse Rate [ Anterior Bilateral Throughout] Pulse Rate [ From Monitor] Respiratory 30 H Rate Respiratory Rate [Anterior Bilateral Throughout] Blood Pressure 128/41 O2 Sat by Pulse 199 H Oximetry - General physical appearance no distress, obese - Neck trachea midline - Abdomen other (morbidly obese) - Labs 09/09/16 18:10 09/10/16 05:10 Diabetes panel 09/09/16 09/10/16 Range/Units 18:10 05:10 Sodium 137 138 (137-145) mmol/L Potassium 3.7 3.6 (3.6-5.0) mmol/L Chloride 98.7 99.6 (98-107) mmol/L Carbon Dioxide 25 22 (22-30) mmol/L BUN 36 H 35 H (7-17) mg/dL Creatinine 1.0 1.0 (0.7-1.2) mg/dL Glucose 133 H 240 H (65-100) mg/dL Calcium 6.9 L 6.8 L (8.4-10.2) mg/dL AST 253 H 226 H (5-40) units/L ALT 184 H 171 H (7-56) units/L Alkaline Phosphatase 729 H 710 H (35-129) units/L Total Protein 5.1 L 5.2 L (6.3-8.2) g/dL Albumin 1.7 L 1.7 L (3.9-5) g/dL Thyroid panel 09/09/16 Range/Units 18:10 TSH 5.220 H (0.270-4.200) mlU/mL Calcium panel 09/09/16 09/10/16 Range/Units 18:10 05:10 Calcium 6.9 L 6.8 L (8.4-10.2) mg/dL Albumin 1.7 L 1.7 L (3.9-5) g/dL Pituitary panel 09/09/16 09/09/16 09/10/16 Range/Units 18:10 18:10 05:10 Sodium 137 138 (137-145) mmol/L Potassium 3.7 3.6 (3.6-5.0) mmol/L Chloride 98.7 99.6 (98-107) mmol/L Carbon Dioxide 25 22 (22-30) mmol/L BUN 36 H 35 H (7-17) mg/dL Creatinine 1.0 1.0 (0.7-1.2) mg/dL Glucose 133 H 240 H (65-100) mg/dL Calcium 6.9 L 6.8 L (8.4-10.2) mg/dL TSH 5.220 H (0.270-4.200) mlU/mL Adrenal panel 09/09/16 09/10/16 Range/Units 18:10 05:10 Sodium 137 138 (137-145) mmol/L Potassium 3.7 3.6 (3.6-5.0) mmol/L Chloride 98.7 99.6 (98-107) mmol/L Carbon Dioxide 25 22 (22-30) mmol/L BUN 36 H 35 H (7-17) mg/dL Creatinine 1.0 1.0 (0.7-1.2) mg/dL Glucose 133 H 240 H (65-100) mg/dL Calcium 6.9 L 6.8 L (8.4-10.2) mg/dL Total Bilirubin 0.80 0.90 (0.1-1.2) mg/dL AST 253 H 226 H (5-40) units/L ALT 184 H 171 H (7-56) units/L Alkaline Phosphatase 729 H 710 H (35-129) units/L Total Protein 5.1 L 5.2 L (6.3-8.2) g/dL Albumin 1.7 L 1.7 L (3.9-5) g/dL
--- NOTE | 2016-09-10 14:35 | Progress Note ---
Assessment and Plan Assessment and plan: Patient is a 61-year-old morbid obese woman with a past medical history of congestive heart failure, severe protein calorie malnutrition (bilateral rastafari muscle severe wasting, hypothenar muscle wasting) with BMI of 81.6, functional quadriplegia, type 2 diabetes mellitus, hypertension, multiple skin breakdown between legs and thighs who presented to the hospital via EMS with AMS. 2D echocardiogram with ejection fraction of 50-55%. During the past admission, patient was recommended for placement but refused. On presentation to ED, patient was felt to be unable to maintain her airways and intubated the ER since 08/29/16. Acute toxic metabolic encephalopathy Acute on chronic diastolic congestive heart failure: treat with diuresis Acute on chronic respiratory failure, intubated > 96 hours Septic shock on Levaphed: Weaning attempts Hypercoagulable state Severe anemia s/p blood transfusion: monitor cbc closely altered Mitral stenosis Paroxysmal atrial fibrillation Non-ST elevated [place] type 2: Cardiology is following, conservative management Acute on chronic kidney disease likely secondary to vasomotor nephropathy-POA Transaminitis-elevated alkaline phosphatase and AST: continue to monitor Severe protein calorie malnutrition albumin 1.2 Morbid obesity BMI 81.6 Mulitple PRESSURE ULCERS-POA: consulted wound care uncontrolled dm: increase ssi and wean down iv steroids. restraints renewed drop in HCT, ordered am labs Levaphed now at 2 mcg Unable to get CT head due to weight issues Disposition: Trach and trach LTAC 09/04/16 , boyfriend agreed to blood transfusion, hgb is 6.0 will transfuse 2 units==>h/h steady, continue to monitor 09/05/16: Overnight was very eventful. New issue: Status epilepticus most likely due to anoxic brain injury, poa. She is back on 8 mcg of Levophed, which had weaned off up to the point of seizure activity Patient had status epilepticus before receiving blood transfusions. She was given multiple doses of Ativan and was still having breakthrough seizures. She was given phenobarbital and Dilantin but still having seizures. I started propofol drip which is helping. She still on IV Ativan drip also. Difficult family dynamics: Her son (she has multiple children), Srikanth and sister Leanne were at her bedside and well as her boyfriend who is not her legal , which he told me. They are upset because they didn't know patient was in the hospital. It appears the gentleman in the room is her boyfriend and not her legal He also did not notify the family the patient was here. That gentleman who is her boyfriend dropped the patient's wallet and our security called the number inside the wallet which was patient's mother's number and this is how the family found out that patient was in the hospital. I was told by RN, that patient has no , patient has 7 siblings and they are estranged from mother. No legal POA but sister Leanne is active in sister's life. Her boyfriend name is Tad Vieyra and he has consistently been at her beside, holding her hand and being supportive. 09/10/16: Trying to get to LTAC, still on 2 mcg of Levaphed but not sedated==>? Significant anoxic brain injury most likely poa History Interval history: Patient seen and examined. Follow up on respiratory failure. Patient still intubated. Overnight uneventful. Patient had status epilepticus before receiving blood transfusions. She was given multiple doses of Ativan and was still having breakthrough seizures. She was given phenobarbital and Dilantin but still having seizures. I started propofol which helped. She still on IV Ativan drip. Her son and sister Leanne were at her bedside and well as her boyfriend who is not her legal , which he told me. They are upset because they didn't know patient was in the hospital. It appears the gentleman in the room is her boyfriend and not her legal He also did not notify the family the patient was here. That gentleman who is her boyfriend dropped the patient's wallet and our security called the number inside the wallet which was patient's mother's number and this is how the family found out that patient was in the hospital. Hospitalist Physical - Physical exam Narrative exam: GEN: Critically ill, morbid obese BMI 81.6, intubated HEENT: Pupils are pinpoint and reactive, ET tube in place NECK: SUPPLE, NO THYROMEGALY, NO JVD, NO LAD CVS: regular irregular NORMAL S1S2 LUNGS/CHEST: TA B, NORMAL CHEST EXPANSION B, GOOD AIR ENTRY B ABD: SOFT, NONDISTENDED GBS, NO REBOUND OR GUARDING MSK: Spontaneous movement of extremities NEURO: CN 2-12 GROSSLY INTACT, doesn't follow commands PSY: Confused - Constitutional Vitals: Temp Pulse Resp BP Pulse Ox 98.7 F 85 35 H 128/62 98 09/10/16 12:00 09/10/16 13:31 09/10/16 13:31 09/10/16 13:31 09/10/16 13:31 General appearance: Present: obese, other (still on mechanical ventilation day ) Results - Labs CBC & Chem 7: 09/09/16 18:10 09/10/16 05:10 Labs: Laboratory Last Values WBC 17.0 K/mm3 (4.5-11.0) H 09/09/16 18:10 RBC 2.90 M/mm3 (3.65-5.03) L 09/09/16 18:10 Hgb 8.5 gm/dl (10.1-14.3) L 09/09/16 18:10 Hct 26.1 % (30.3-42.9) L 09/09/16 18:10 MCV 90 fl (79-97) 09/09/16 18:10 MCH 29 pg (28-32) 09/09/16 18:10 MCHC 33 % (30-34) 09/09/16 18:10 RDW 17.9 % (13.2-15.2) H 09/09/16 18:10 Plt Count 126 K/mm3 (140-440) L 09/09/16 18:10 Lymph % (Auto) 15.6 % (13.4-35.0) 08/30/16 10:30 Saline % (Auto) 5.1 % (0.0-7.3) 08/30/16 10:30 Eos % (Auto) 0.6 % (0.0-4.3) 08/30/16 10:30 Baso % (Auto) 0.1 % (0.0-1.8) 08/30/16 10:30 Lymph # 1.7 K/mm3 (1.2-5.4) 08/30/16 10:30 Saline # 0.6 K/mm3 (0.0-0.8) 08/30/16 10:30 Eos # 0.1 K/mm3 (0.0-0.4) 08/30/16 10:30 Baso # 0.0 K/mm3 (0.0-0.1) 08/30/16 10:30 Add Manual Diff Complete 09/02/16 05:00 Total Counted 100 09/02/16 05:00 Seg Neutrophils % 78.6 % (40.0-70.0) H 08/30/16 10:30 Seg Neuts % (Manual) 72.0 % (40.0-70.0) H 09/02/16 05:00 Band Neutrophils % 9.0 % 09/02/16 05:00 Lymphocytes % (Manual) 15.0 % (13.4-35.0) 09/02/16 05:00 Reactive Lymphs % (Man) 0 % 09/02/16 05:00 Monocytes % (Manual) 4.0 % (0.0-7.3) 09/02/16 05:00 Eosinophils % (Manual) 0 % (0.0-4.3) 09/02/16 05:00 Basophils % (Manual) 0 % (0.0-1.8) 09/02/16 05:00 Metamyelocytes % 0 % 09/02/16 05:00 Myelocytes % 0 % 09/02/16 05:00 Promyelocytes % 0 % 09/02/16 05:00 Blast Cells % 0 % 09/02/16 05:00 Nucleated RBC % 25.0 % (0.0-0.9) H 09/02/16 05:00 Seg Neutrophils # 8.7 K/mm3 (1.8-7.7) H 08/30/16 10:30 Seg Neutrophils # Man 8.9 K/mm3 (1.8-7.7) H 09/02/16 05:00 Band Neutrophils # 1.1 K/mm3 09/02/16 05:00 Lymphocytes # (Manual) 1.8 K/mm3 (1.2-5.4) 09/02/16 05:00 Abs React Lymphs (Man) 0.0 K/mm3 09/02/16 05:00 Monocytes # (Manual) 0.5 K/mm3 (0.0-0.8) 09/02/16 05:00 Eosinophils # (Manual) 0.0 K/mm3 (0.0-0.4) 09/02/16 05:00 Basophils # (Manual) 0.0 K/mm3 (0.0-0.1) 09/02/16 05:00 Metamyelocytes # 0.0 K/mm3 09/02/16 05:00 Myelocytes # 0.0 K/mm3 09/02/16 05:00 Promyelocytes # 0.0 K/mm3 09/02/16 05:00 Blast Cells # 0.0 K/mm3 09/02/16 05:00 WBC Morphology Not Reportable 09/02/16 05:00 Hypersegmented Neuts Not Reportable 09/02/16 05:00 Hyposegmented Neuts Not Reportable 09/02/16 05:00 Hypogranular Neuts Not Reportable 09/02/16 05:00 Smudge Cells Not Reportable 09/02/16 05:00 Toxic Granulation Not Reportable 09/02/16 05:00 Toxic Vacuolation Not Reportable 09/02/16 05:00 Dohle Bodies Not Reportable 09/02/16 05:00 Pelger-Huet Anomaly Not Reportable 09/02/16 05:00 Feli Rods Not Reportable 09/02/16 05:00 Platelet Estimate Consistent w auto 09/02/16 05:00 Clumped Platelets Not Reportable 09/02/16 05:00 Plt Clumps, EDTA Not Reportable 09/02/16 05:00 Large Platelets Not Reportable 09/02/16 05:00 Giant Platelets Not Reportable 09/02/16 05:00 Platelet Satelliting Not Reportable 09/02/16 05:00 Plt Morphology Comment Not Reportable 09/02/16 05:00 RBC Morphology Not Reportable 09/02/16 05:00 Dimorphic RBCs Not Reportable 09/02/16 05:00 Polychromasia Rare 09/02/16 05:00 Hypochromasia Not Reportable 09/02/16 05:00 Poikilocytosis Not Reportable 09/02/16 05:00 Anisocytosis 1+ 09/02/16 05:00 Microcytosis Not Reportable 09/02/16 05:00 Macrocytosis 1+ 09/02/16 05:00 Spherocytes Not Reportable 09/02/16 05:00 Pappenheimer Bodies Not Reportable 09/02/16 05:00 Sickle Cells Not Reportable 09/02/16 05:00 Target Cells Not Reportable 09/02/16 05:00 Tear Drop Cells Not Reportable 09/02/16 05:00 Ovalocytes Not Reportable 09/02/16 05:00 Helmet Cells Not Reportable 09/02/16 05:00 [place] Bodies Not Reportable 09/02/16 05:00 [place] Rings Not Reportable 09/02/16 05:00 [place] Cells Not Reportable 09/02/16 05:00 Bite Cells Not Reportable 09/02/16 05:00 Crenated Cell Not Reportable 09/02/16 05:00 Elliptocytes Not Reportable 09/02/16 05:00 Acanthocytes (Spur) Not Reportable 09/02/16 05:00 Rouleaux Not Reportable 09/02/16 05:00 Hemoglobin C Crystals Not Reportable 09/02/16 05:00 Schistocytes Not Reportable 09/02/16 05:00 Malaria parasites Not Reportable 09/02/16 05:00 Manny Bodies Not Reportable 09/02/16 05:00 Hem Pathologist Commnt No 09/02/16 05:00 PT 13.8 Sec. (12.2-14.9) 09/10/16 05:10 INR 1.07 (0.87-1.13) 09/10/16 05:10 APTT 29.5 Sec. (24.2-36.6) 08/29/16 17:40 POC ABG pH 7.454 (7.35-7.45) H 09/09/16 12:33 POC ABG pCO2 38.4 (35-45) 09/09/16 12:33 POC ABG pO2 75 (80-105) L 09/09/16 12:33 POC ABG HCO3 27.0 09/09/16 12:33 POC ABG Total CO2 28 09/09/16 12:33 POC ABG O2 Sat 96 09/09/16 12:33 POC ABG Base Excess 3 09/09/16 12:33 VBG pH 7.366 (7.320-7.420) 08/29/16 17:40 FiO2 30 % 09/09/16 12:33 Sodium 138 mmol/L (137-145) 09/10/16 05:10 Potassium 3.6 mmol/L (3.6-5.0) 09/10/16 05:10 Chloride 99.6 mmol/L (98-107) 09/10/16 05:10 Carbon Dioxide 22 mmol/L (22-30) 09/10/16 05:10 Anion Gap 20 mmol/L 09/10/16 05:10 BUN 35 mg/dL (7-17) H 09/10/16 05:10 Creatinine 1.0 mg/dL (0.7-1.2) 09/10/16 05:10 Estimated GFR > 60 ml/min 09/10/16 05:10 BUN/Creatinine Ratio 35.00 % 09/10/16 05:10 Glucose 240 mg/dL (65-100) H 09/10/16 05:10 POC Glucose 268 (70-105) H 09/10/16 11:43 Lactic Acid 1.90 mmol/L (0.7-2.0) 09/07/16 15:00 Calcium 6.8 mg/dL (8.4-10.2) L 09/10/16 05:10 Phosphorus 3.60 mg/dL (2.5-4.5) 08/29/16 21:59 Magnesium 1.70 mg/dL (1.7-2.3) 09/06/16 03:30 Total Bilirubin 0.90 mg/dL (0.1-1.2) 09/10/16 05:10 AST 226 units/L (5-40) H 09/10/16 05:10 ALT 171 units/L (7-56) H 09/10/16 05:10 Alkaline Phosphatase 710 units/L (35-129) H 09/10/16 05:10 Ammonia 39.0 umol/L (25-60) 09/07/16 15:00 Total Creatine Kinase 36 units/L (30-135) 09/06/16 11:07 CK-MB (CK-2) < 1.0 ng/mL (0.0-4.0) 09/06/16 11:07 CK-MB (CK-2) Rel Index 2.7 (0-4) 09/06/16 11:07 Troponin T 0.080 ng/mL (0.00-0.029) H 09/06/16 11:07 C-Reactive Protein 10.20 mg/dL (0.00-1.30) H 08/30/16 22:20 NT-Pro-B Natriuret Pep 1712 pg/mL (0-900) H 08/29/16 17:40 Total Protein 5.2 g/dL (6.3-8.2) L 09/10/16 05:10 Albumin 1.7 g/dL (3.9-5) L 09/10/16 05:10 Albumin/Globulin Ratio 0.5 % 09/10/16 05:10 Prealbumin 0.120 g/L (0.200-0.400) L 08/29/16 21:59 Triglycerides 225 mg/dL (2-149) H 08/29/16 17:40 Cholesterol 130 mg/dL (50-199) 08/29/16 17:40 LDL Cholesterol Direct 82 mg/dL (50-130) 08/29/16 17:40 HDL Cholesterol 3 mg/dL (40-59) L 08/29/16 17:40 Cholesterol/HDL Ratio 43.33 % 08/29/16 17:40 TSH 5.220 mlU/mL (0.270-4.200) H 09/09/16 18:10 Urine Color Yellow (Yellow) 08/31/16 15:37 Urine Turbidity Clear (Clear) 08/31/16 15:37 Urine pH 5.0 (5.0-7.0) 08/31/16 15:37 Ur Specific [place] 1.009 (1.003-1.030) 08/31/16 15:37 Urine Protein <15 mg/dl mg/dL (Negative) 08/31/16 15:37 Urine Glucose (UA) Neg mg/dL (Negative) 08/31/16 15:37 Urine Ketones Neg mg/dL (Negative) 08/31/16 15:37 Urine Blood Sm (Negative) 08/31/16 15:37 Urine Nitrite Neg (Negative) 08/31/16 15:37 Urine Bilirubin Neg (Negative) 08/31/16 15:37 Urine Urobilinogen < 2.0 mg/dL (<2.0) 08/31/16 15:37 Ur Leukocyte Esterase Sm (Negative) 08/31/16 15:37 Urine WBC (Auto) 3.0 /HPF (0.0-6.0) 08/31/16 15:37 Urine RBC (Auto) 1.0 /HPF (0.0-6.0) 08/31/16 15:37 U Epithel Cells (Auto) < 1.0 /HPF (0-13.0) 08/31/16 15:37 Urine Bacteria (Auto) 1+ /HPF (Negative) 08/31/16 15:37 Hyaline Casts 5 /LPF 08/31/16 15:37 Urine Mucus Few /HPF 08/31/16 15:37 Blood Type O POSITIVE 09/08/16 11:00 Antibody Screen TNR 09/08/16 11:00 PATRICK Antibody Screen Negative 09/08/16 11:00 Crossmatch See Detail 09/08/16 11:00
[2016-09-10] MEDS: SYNTHROID IV SCH (16:31)
[2016-09-11] MEDS: DUONEB 0.5 MG-3 MG/3 ML SOLN IH SCH ×4 (01:09→18:59)
[2016-09-11] MEDS: NOVOLOG SUB-Q SCH ×4 (01:13→17:38)
[2016-09-11] MEDS: MAXIPIME/NS 1 GM/100 ML 1 GM/100 ML BAG IV SCH ×3 (05:35→16:55)
[2016-09-11] MEDS: FLAGYL 500 MG/100 ML 500 MG/100 ML BAG IV SCH ×3 (05:35→16:55)
[2016-09-11] MEDS: PROAMATINE PO SCH ×3 (05:36→22:09)
[2016-09-11] MEDS: REGLAN IV SCH ×3 (05:36→22:09)
[2016-09-11 05:56] LABS: Alanine Aminotransferase 145 units/L (7-56); Albumin 1.6 g/dL (3.9-5); Albumin/Globulin Ratio 0.5 %; Alkaline Phosphatase 631 units/L (35-129); Anion Gap 18 mmol/L; BUN/Creatinine Ratio 43.75; Blood Urea Nitrogen 35 mg/dL (7-17); Calcium 6.9 mg/dL (8.4-10.2); Carbon Dioxide 23 mmol/L (22-30); Chloride 100.1 mmol/L (98-107); Glucose 274 mg/dL (65-100); Sodium 138 mmol/L (137-145); Total Protein 5.1 g/dL (6.3-8.2)
[2016-09-11 05:58] LABS: Potassium 2.9 mmol/L (3.6-5.0)
--- NOTE | 2016-09-11 07:20 | Progress Note ---
Assessment and Plan - Patient Problems (1) Tracheobronchitis Current Visit: Yes Status: Acute Plan to address problem: 1. Continue current antimicrobials pending identification of GNR in tracheal aspirate. (2) Leukocytosis, unspecified Current Visit: Yes Status: Acute Qualifiers: Leukocytosis type: L Plan to address problem: 1. Stable without recent increase. Subjective Date of service: 09/11/16 Principal diagnosis: Acute Hypoxemic Hypercapnic Resp Failure; Severe Sepsis Interval history: Remains afebrile in ICU. Off pressors. Intermittently more alert. Objective - Exam Narrative Exam: intubated, FiO2 30% - Constitutional Vitals: Vital Signs Temp Pulse Resp BP Pulse Ox 97.0 F L 69 24 133/68 99 09/11/16 04:00 09/11/16 06:16 09/11/16 06:16 09/11/16 06:16 09/11/16 06:16 Temperature -Last 24 Hours Temperature 97.0 F Temperature 97.8 F Temperature 98.5 F Temperature 98.5 F Temperature 98.7 F Temperature 98.3 F - EENT ENT: other (ET tube in place) - Respiratory Respiratory: bilateral: diminished - Cardiovascular Rhythm: regular Heart Sounds: Present: S1 & S2 Extremity abnormal: edema - Gastrointestinal General gastrointestinal: Present: soft, non-distended - Genitourinary Female genitourinary: other (Jose with normal-appearing urine) - Integumentary Integumentary: no rash - Additional findings Additional findings: left subclavian central line - Labs CBC & Chem 7: 09/09/16 18:10 09/11/16 05:00 Labs: Abnormal lab results 09/10/16 09/10/16 09/11/16 Range/Units 11:43 17:51 01:07 Potassium (3.6-5.0) mmol/L BUN (7-17) mg/dL Glucose (65-100) mg/dL POC Glucose 268 H 334 H 223 H (70-105) Calcium (8.4-10.2) mg/dL AST (5-40) units/L ALT (7-56) units/L Alkaline Phosphatase (35-129) units/L Total Protein (6.3-8.2) g/dL Albumin (3.9-5) g/dL 09/11/16 Range/Units 05:00 Potassium 2.9 L* (3.6-5.0) mmol/L BUN 35 H (7-17) mg/dL Glucose 274 H (65-100) mg/dL POC Glucose (70-105) Calcium 6.9 L (8.4-10.2) mg/dL AST 167 H (5-40) units/L ALT 145 H (7-56) units/L Alkaline Phosphatase 631 H (35-129) units/L Total Protein 5.1 L (6.3-8.2) g/dL Albumin 1.6 L (3.9-5) g/dL Microbiology 09/09/16 19:23 Peripheral/Venous Blood Culture - Preliminary NO GROWTH AFTER 24 HOURS 09/09/16 18:10 Peripheral/Venous Blood Culture - Preliminary NO GROWTH AFTER 24 HOURS 09/09/16 13:40 Tracheal Aspirate Sputum Culture - Preliminary Gram Negative Scot 08/29/16 17:40 Peripheral/Venous Blood Culture - Final NO GROWTH AFTER 5 DAYS 08/29/16 17:45 Peripheral/Venous Blood Culture - Final NO GROWTH AFTER 5 DAYS 09/03/16 18:00 Stool Stool Occult Blood (JEANNETTE) - Final 08/29/16 15:37 Urine,Catheterized - Indwelling Catheter Urine Culture - Final NO GROWTH AFTER 48 HOURS 08/29/16 Unknown Tracheal Aspirate Sputum Culture - Final Active Medications Acetaminophen (Tylenol) 650 mg PO Q4H PRN PRN Reason: Pain MILD(1-3)/Fever >100.5/DUBOSE Albuterol (Proventil) 2.5 mg IH Q3HRT PRN PRN Reason: Shortness Of Breath Albuterol/Ipratropium (Duoneb 0.5 Mg-3 Mg/3 Ml Soln) 1 ampul IH Q6HRT [facility] Last Admin: 09/11/16 01:09 Dose: 1 ampul Lipase/Protease/Amylase (Pancreaze Dr 10,500 Unit) 1 each FEEDTUBE PRN PRN PRN Reason: For Clogged Feeding Tube Bisacodyl (Dulcolax) 10 mg MI QDAY PRN PRN Reason: Constipation unrelieved by MOM Enoxaparin Sodium (Lovenox) 40 mg SUB-Q DAILY [facility] Last Admin: 09/10/16 09:28 Dose: 40 mg Ferrous Sulfate (Ferrous Sulfate) 300 mg PO QDAY [facility] Last Admin: 09/10/16 09:27 Dose: 300 mg Folic Acid (Folvite) 1 mg PO DAILY [facility] Last Admin: 09/10/16 09:32 Dose: 1 mg Hydrocortisone Sodium Succinate (Solu-Cortef) 100 mg IV Q8HR [facility] Last Admin: 09/11/16 05:35 Dose: 100 mg Hydrophilic Ointment (Vaseline Lip Therapy) 1 applic TP Q2HR PRN PRN Reason: Dry Lips Norepinephrine (Levophed Drip 4 Mg/Ns 250 Ml) 4 mg in 250 mls @ 7.5 mls/hr IV TITR KATHY; 2 MCG/MIN PRN Reason: Protocol Last Titration: 09/10/16 12:00 Dose: 0 mcg/min, 0 mls/hr Lorazepam 100 mg/ Sodium Chloride/ Miscellaneous Information 100 mls @ 2 mls/ hr IV TITR KATHY; 2 MG/HR PRN Reason: Protocol Last Titration: 09/07/16 14:03 Dose: 0 mg/hr, 0 mls/hr Propofol (Diprivan 10 Mg/Ml) 1,000 mg in 100 mls @ 5.688 mls/hr IV TITR KATHY; 5 MCG/KG/MIN PRN Reason: Protocol Last Titration: 09/07/16 07:00 Dose: 4 mcg/kg/min, 4.55 mls/hr Dopamine HCl/Dextrose (Intropin Drip 800 Mg/D5w 250 Ml) 800 mg in 250 mls @ 7.11 mls/hr IV TITR KATHY; 2 MCG/KG/MIN PRN Reason: Protocol Cefepime HCl (Maxipime/Ns 1 Gm/100 Ml) 1 gm in 100 mls @ 200 mls/hr IV Q8H KATHY PRN Reason: Protocol Last Admin: 09/11/16 05:35 Dose: 200 mls/hr Metronidazole (Flagyl 500 Mg/100 Ml) 500 mg in 100 mls @ 100 mls/hr IV Q8H [facility] Last Admin: 09/11/16 05:35 Dose: 100 mls/hr Insulin Aspart (Novolog) 0 units SUB-Q Q6HR KATHY PRN Reason: Protocol Last Admin: 09/11/16 05:34 Dose: 8 units Lactulose (Cephulac) 20 gm PO Q6H PRN PRN Reason: Constipation Levetiracetam (Keppra) 500 mg PO BID [facility] Last Admin: 09/10/16 21:08 Dose: 500 mg Levothyroxine Sodium (Synthroid) 37.5 mcg IV DAILY [facility] Last Admin: 09/10/16 16:31 Dose: 37.5 mcg Lorazepam (Ativan) 1 mg IV Q5MIN PRN PRN Reason: Seizures Last Admin: 09/05/16 03:05 Dose: 1 mg Magnesium Hydroxide (Milk Of Magnesia) 30 ml PO Q4H PRN PRN Reason: Constipation Metoclopramide HCl (Reglan) 10 mg IV Q8HR [facility] Last Admin: 09/11/16 05:36 Dose: 10 mg Midodrine (Proamatine) 10 mg PO Q8HR [facility] Last Admin: 09/11/16 05:36 Dose: 10 mg Multi-Ingred Cream/Lotion/Oil/Oint (Artificial Tears Ophth Oint) 1 applic OU Q4HR PRN PRN Reason: Dry Eye(s) Last Admin: 09/06/16 06:39 Dose: 1 applic Ondansetron HCl (Zofran) 4 mg IV Q8H PRN PRN Reason: N/V unrelieved by Reglan Pantoprazole (Protonix) 40 mg PO QDAY [facility] Last Admin: 09/10/16 09:28 Dose: 40 mg Simple Syrup (Simple Syrup) 15 ml FEEDTUBE PRN PRN PRN Reason: Hypoglycemia Simple Syrup (Simple Syrup) 30 ml FEEDTUBE PRN PRN PRN Reason: Hypoglycemia Sodium Bicarbonate (Sodium Bicarbonate) 325 mg FEEDTUBE PRN PRN PRN Reason: For Clogged Feeding Tube - Imaging and cardiology Chest x-ray: report reviewed
--- NOTE | 2016-09-11 08:22 | XRay Report ---
CHEST 1 VIEW INDICATION: Respiratory failure followup. COMPARISON: Yesterday. FINDINGS: Portable, frontal chest radiograph, 1:58 AM, 09/11/2016 reveals stable cardiomediastinal silhouette, supporting devices, appearance of the lungs and osseous structures, providing for the difference in technique. CONCLUSION: No significant interval change in CHF pattern. Thank you for the opportunity to participate in this patient's care.
[2016-09-11] MEDS: KCL 20MEQ/100ML 20 MEQ/100 ML BAG IV SCH ×2 (10:13→11:36)
[2016-09-11] MEDS: FERROUS SULFATE PO SCH (10:14)
[2016-09-11] MEDS: KEPPRA PO SCH ×2 (10:14→22:09)
[2016-09-11] MEDS: PROTONIX PO SCH (10:14)
[2016-09-11] MEDS: SYNTHROID IV SCH (10:14)
[2016-09-11] MEDS: LOVENOX SUB-Q SCH (10:14)
[2016-09-11] MEDS: FOLVITE PO SCH (10:14)
[2016-09-11] MEDS ORDERED: MAGNESIUM SULFATE 2GM/50ML 2 GM/50 ML BAG IV ONE (11:14)
[2016-09-11] MEDS ORDERED: POTASSIUM CHLORIDE FEEDTUBE ONE (11:14)
--- NOTE | 2016-09-11 11:16 | Progress Note ---
Assessment and Plan Assessment and plan: Patient is a 61-year-old morbid obese woman with a past medical history of congestive heart failure, severe protein calorie malnutrition (bilateral muslim muscle severe wasting, hypothenar muscle wasting) with BMI of 81.6, functional quadriplegia, type 2 diabetes mellitus, hypertension, multiple skin breakdown between legs and thighs who presented to the hospital via EMS with AMS. 2D echocardiogram with ejection fraction of 50-55%. During the past admission, patient was recommended for placement but refused. On presentation to ED, patient was felt to be unable to maintain her airways and intubated the ER since 08/29/16. Acute toxic metabolic encephalopathy Acute on chronic diastolic congestive heart failure: treat with diuresis Acute on chronic respiratory failure, intubated > 96 hours Septic shock on Levaphed: Weaning attempts Hypercoagulable state Severe anemia s/p blood transfusion: monitor cbc closely altered Mitral stenosis Paroxysmal atrial fibrillation Non-ST elevated ND type 2: Cardiology is following, conservative management Acute on chronic kidney disease likely secondary to vasomotor nephropathy-POA Transaminitis-elevated alkaline phosphatase and AST: continue to monitor Severe protein calorie malnutrition albumin 1.2 Morbid obesity BMI 81.6 Mulitple PRESSURE ULCERS-POA: consulted wound care uncontrolled dm: increase ssi and wean down iv steroids. restraints renewed drop in HCT, ordered am labs Levaphed now at 2 mcg Unable to get [address] head due to weight issues Disposition: [facility] 09/04/16 , boyfriend agreed to blood transfusion, hgb is 6.0 will transfuse 2 units==>h/h steady, continue to monitor 09/05/16: Overnight was very eventful. New issue: Status epilepticus most likely due to anoxic brain injury, poa. She is back on 8 mcg of Levophed, which had weaned off up to the point of seizure activity Patient had status epilepticus before receiving blood transfusions. She was given multiple doses of Ativan and was still having breakthrough seizures. She was given phenobarbital and Dilantin but still having seizures. I started propofol drip which is helping. She still on IV Ativan drip also. Difficult family dynamics: Her son (she has multiple children), Srikanth and sister Leanne were at her bedside and well as her boyfriend who is not her legal , which he told me. They are upset because they didn't know patient was in the hospital. It appears the gentleman in the room is her boyfriend and not her legal He also did not notify the family the patient was here. That gentleman who is her boyfriend dropped the patient's wallet and our security called the number inside the wallet which was patient's mother's number and this is how the family found out that patient was in the hospital. I was told by RN, that patient has no , patient has 7 siblings and they are estranged from mother. No legal POA but sister Leanne is active in sister's life. Her boyfriend name is Tad Vieyra and he has consistently been at her beside, holding her hand and being supportive. 09/10/16: Trying to get to LTAC, still on 2 mcg of Levaphed but not sedated==>? Significant anoxic brain injury most likely poa 09/11/16, trach aspirated GNR, continue abx pending identification, off levaphed today. Trying to get to LTAC, they can trach her there. Only [facility] takes her insurance History Interval history: Patient seen and examined. Follow up on respiratory failure. Patient still intubated. Overnight uneventful. Patient had status epilepticus before receiving blood transfusions. She was given multiple doses of Ativan and was still having breakthrough seizures. She was given phenobarbital and Dilantin but still having seizures. I started propofol which helped. She still on IV Ativan drip. Her son and sister Leanne were at her bedside and well as her boyfriend who is not her legal , which he told me. They are upset because they didn't know patient was in the hospital. It appears the gentleman in the room is her boyfriend and not her legal He also did not notify the family the patient was here. That gentleman who is her boyfriend dropped the patient's wallet and our security called the number inside the wallet which was patient's mother's number and this is how the family found out that patient was in the hospital. Hospitalist Physical - Physical exam Narrative exam: GEN: Critically ill, morbid obese BMI 81.6, intubated HEENT: Pupils are pinpoint and reactive, ET tube in place NECK: SUPPLE, NO THYROMEGALY, NO JVD, NO LAD CVS: regular irregular NORMAL S1S2 LUNGS/CHEST: TA B, NORMAL CHEST EXPANSION B, GOOD AIR ENTRY B ABD: SOFT, NONDISTENDED GBS, NO REBOUND OR GUARDING MSK: Spontaneous movement of extremities NEURO: CN 2-12 GROSSLY INTACT, doesn't follow commands PSY: Confused - Constitutional Vitals: Temp Pulse Resp BP Pulse Ox 98 F 67 25 H 143/67 94 09/11/16 08:00 09/11/16 09:00 09/11/16 09:00 09/11/16 09:00 09/11/16 09:00 General appearance: Present: obese, other (still on mechanical ventilation ) Results - Labs CBC & Chem 7: 09/09/16 18:10 09/11/16 05:00 Labs: Laboratory Last Values WBC 17.0 K/mm3 (4.5-11.0) H 09/09/16 18:10 RBC 2.90 M/mm3 (3.65-5.03) L 09/09/16 18:10 Hgb 8.5 gm/dl (10.1-14.3) L 09/09/16 18:10 Hct 26.1 % (30.3-42.9) L 09/09/16 18:10 MCV 90 fl (79-97) 09/09/16 18:10 MCH 29 pg (28-32) 09/09/16 18:10 MCHC 33 % (30-34) 09/09/16 18:10 RDW 17.9 % (13.2-15.2) H 09/09/16 18:10 Plt Count 126 K/mm3 (140-440) L 09/09/16 18:10 Lymph % (Auto) 15.6 % (13.4-35.0) 08/30/16 10:30 Dickson % (Auto) 5.1 % (0.0-7.3) 08/30/16 10:30 Eos % (Auto) 0.6 % (0.0-4.3) 08/30/16 10:30 Baso % (Auto) 0.1 % (0.0-1.8) 08/30/16 10:30 Lymph # 1.7 K/mm3 (1.2-5.4) 08/30/16 10:30 Dickson # 0.6 K/mm3 (0.0-0.8) 08/30/16 10:30 Eos # 0.1 K/mm3 (0.0-0.4) 08/30/16 10:30 Baso # 0.0 K/mm3 (0.0-0.1) 08/30/16 10:30 Add Manual Diff Complete 09/02/16 05:00 Total Counted 100 09/02/16 05:00 Seg Neutrophils % 78.6 % (40.0-70.0) H 08/30/16 10:30 Seg Neuts % (Manual) 72.0 % (40.0-70.0) H 09/02/16 05:00 Band Neutrophils % 9.0 % 09/02/16 05:00 Lymphocytes % (Manual) 15.0 % (13.4-35.0) 09/02/16 05:00 Reactive Lymphs % (Man) 0 % 09/02/16 05:00 Monocytes % (Manual) 4.0 % (0.0-7.3) 09/02/16 05:00 Eosinophils % (Manual) 0 % (0.0-4.3) 09/02/16 05:00 Basophils % (Manual) 0 % (0.0-1.8) 09/02/16 05:00 Metamyelocytes % 0 % 09/02/16 05:00 Myelocytes % 0 % 09/02/16 05:00 Promyelocytes % 0 % 09/02/16 05:00 Blast Cells % 0 % 09/02/16 05:00 Nucleated RBC % 25.0 % (0.0-0.9) H 09/02/16 05:00 Seg Neutrophils # 8.7 K/mm3 (1.8-7.7) H 08/30/16 10:30 Seg Neutrophils # Man 8.9 K/mm3 (1.8-7.7) H 09/02/16 05:00 Band Neutrophils # 1.1 K/mm3 09/02/16 05:00 Lymphocytes # (Manual) 1.8 K/mm3 (1.2-5.4) 09/02/16 05:00 Abs React Lymphs (Man) 0.0 K/mm3 09/02/16 05:00 Monocytes # (Manual) 0.5 K/mm3 (0.0-0.8) 09/02/16 05:00 Eosinophils # (Manual) 0.0 K/mm3 (0.0-0.4) 09/02/16 05:00 Basophils # (Manual) 0.0 K/mm3 (0.0-0.1) 09/02/16 05:00 Metamyelocytes # 0.0 K/mm3 09/02/16 05:00 Myelocytes # 0.0 K/mm3 09/02/16 05:00 Promyelocytes # 0.0 K/mm3 09/02/16 05:00 Blast Cells # 0.0 K/mm3 09/02/16 05:00 WBC Morphology Not Reportable 09/02/16 05:00 Hypersegmented Neuts Not Reportable 09/02/16 05:00 Hyposegmented Neuts Not Reportable 09/02/16 05:00 Hypogranular Neuts Not Reportable 09/02/16 05:00 Smudge Cells Not Reportable 09/02/16 05:00 Toxic Granulation Not Reportable 09/02/16 05:00 Toxic Vacuolation Not Reportable 09/02/16 05:00 Dohle Bodies Not Reportable 09/02/16 05:00 Pelger-Huet Anomaly Not Reportable 09/02/16 05:00 Feli Rods Not Reportable 09/02/16 05:00 Platelet Estimate Consistent w auto 09/02/16 05:00 Clumped Platelets Not Reportable 09/02/16 05:00 Plt Clumps, EDTA Not Reportable 09/02/16 05:00 Large Platelets Not Reportable 09/02/16 05:00 Giant Platelets Not Reportable 09/02/16 05:00 Platelet Satelliting Not Reportable 09/02/16 05:00 Plt Morphology Comment Not Reportable 09/02/16 05:00 RBC Morphology Not Reportable 09/02/16 05:00 Dimorphic RBCs Not Reportable 09/02/16 05:00 Polychromasia Rare 09/02/16 05:00 Hypochromasia Not Reportable 09/02/16 05:00 Poikilocytosis Not Reportable 09/02/16 05:00 Anisocytosis 1+ 09/02/16 05:00 Microcytosis Not Reportable 09/02/16 05:00 Macrocytosis 1+ 09/02/16 05:00 Spherocytes Not Reportable 09/02/16 05:00 Pappenheimer Bodies Not Reportable 09/02/16 05:00 Sickle Cells Not Reportable 09/02/16 05:00 Target Cells Not Reportable 09/02/16 05:00 Tear Drop Cells Not Reportable 09/02/16 05:00 Ovalocytes Not Reportable 09/02/16 05:00 Helmet Cells Not Reportable 09/02/16 05:00 Patterson-Luverne Bodies Not Reportable 09/02/16 05:00 [place] Rings Not Reportable 09/02/16 05:00 Eccles Cells Not Reportable 09/02/16 05:00 Bite Cells Not Reportable 09/02/16 05:00 Crenated Cell Not Reportable 09/02/16 05:00 Elliptocytes Not Reportable 09/02/16 05:00 Acanthocytes (Spur) Not Reportable 09/02/16 05:00 Rouleaux Not Reportable 09/02/16 05:00 Hemoglobin C Crystals Not Reportable 09/02/16 05:00 Schistocytes Not Reportable 09/02/16 05:00 Malaria parasites Not Reportable 09/02/16 05:00 Manny Bodies Not Reportable 09/02/16 05:00 Hem Pathologist Commnt No 09/02/16 05:00 PT 13.8 Sec. (12.2-14.9) 09/10/16 05:10 INR 1.07 (0.87-1.13) 09/10/16 05:10 APTT 29.5 Sec. (24.2-36.6) 08/29/16 17:40 POC ABG pH 7.454 (7.35-7.45) H 09/09/16 12:33 POC ABG pCO2 38.4 (35-45) 09/09/16 12:33 POC ABG pO2 75 (80-105) L 09/09/16 12:33 POC ABG HCO3 27.0 09/09/16 12:33 POC ABG Total CO2 28 09/09/16 12:33 POC ABG O2 Sat 96 09/09/16 12:33 POC ABG Base Excess 3 09/09/16 12:33 VBG pH 7.366 (7.320-7.420) 08/29/16 17:40 FiO2 30 % 09/09/16 12:33 Sodium 138 mmol/L (137-145) 09/11/16 05:00 Potassium 2.9 mmol/L (3.6-5.0) L* 09/11/16 05:00 Chloride 100.1 mmol/L (98-107) 09/11/16 05:00 Carbon Dioxide 23 mmol/L (22-30) 09/11/16 05:00 Anion Gap 18 mmol/L 09/11/16 05:00 BUN 35 mg/dL (7-17) H 09/11/16 05:00 Creatinine 0.8 mg/dL (0.7-1.2) 09/11/16 05:00 Estimated GFR > 60 ml/min 09/11/16 05:00 BUN/Creatinine Ratio 43.75 % 09/11/16 05:00 Glucose 274 mg/dL (65-100) H 09/11/16 05:00 POC Glucose 223 (70-105) H 09/11/16 01:07 Lactic Acid 1.90 mmol/L (0.7-2.0) 09/07/16 15:00 Calcium 6.9 mg/dL (8.4-10.2) L 09/11/16 05:00 Phosphorus 3.60 mg/dL (2.5-4.5) 08/29/16 21:59 Magnesium 1.70 mg/dL (1.7-2.3) 09/06/16 03:30 Total Bilirubin 0.70 mg/dL (0.1-1.2) 09/11/16 05:00 AST 167 units/L (5-40) H 09/11/16 05:00 ALT 145 units/L (7-56) H 09/11/16 05:00 Alkaline Phosphatase 631 units/L (35-129) H 09/11/16 05:00 Ammonia 39.0 umol/L (25-60) 09/07/16 15:00 Total Creatine Kinase 36 units/L (30-135) 09/06/16 11:07 CK-MB (CK-2) < 1.0 ng/mL (0.0-4.0) 09/06/16 11:07 CK-MB (CK-2) Rel Index 2.7 (0-4) 09/06/16 11:07 Troponin T 0.080 ng/mL (0.00-0.029) H 09/06/16 11:07 C-Reactive Protein 10.20 mg/dL (0.00-1.30) H 08/30/16 22:20 NT-Pro-B Natriuret Pep 1712 pg/mL (0-900) H 08/29/16 17:40 Total Protein 5.1 g/dL (6.3-8.2) L 09/11/16 05:00 Albumin 1.6 g/dL (3.9-5) L 09/11/16 05:00 Albumin/Globulin Ratio 0.5 % 09/11/16 05:00 Prealbumin 0.120 g/L (0.200-0.400) L 08/29/16 21:59 Triglycerides 225 mg/dL (2-149) H 08/29/16 17:40 Cholesterol 130 mg/dL (50-199) 08/29/16 17:40 LDL Cholesterol Direct 82 mg/dL (50-130) 08/29/16 17:40 HDL Cholesterol 3 mg/dL (40-59) L 08/29/16 17:40 Cholesterol/HDL Ratio 43.33 % 08/29/16 17:40 TSH 5.220 mlU/mL (0.270-4.200) H 09/09/16 18:10 Urine Color Yellow (Yellow) 08/31/16 15:37 Urine Turbidity Clear (Clear) 08/31/16 15:37 Urine pH 5.0 (5.0-7.0) 08/31/16 15:37 Ur Specific Solo 1.009 (1.003-1.030) 08/31/16 15:37 Urine Protein <15 mg/dl mg/dL (Negative) 08/31/16 15:37 Urine Glucose (UA) Neg mg/dL (Negative) 08/31/16 15:37 Urine Ketones Neg mg/dL (Negative) 08/31/16 15:37 Urine Blood Sm (Negative) 08/31/16 15:37 Urine Nitrite Neg (Negative) 08/31/16 15:37 Urine Bilirubin Neg (Negative) 08/31/16 15:37 Urine Urobilinogen < 2.0 mg/dL (<2.0) 08/31/16 15:37 Ur Leukocyte Esterase Sm (Negative) 08/31/16 15:37 Urine WBC (Auto) 3.0 /HPF (0.0-6.0) 08/31/16 15:37 Urine RBC (Auto) 1.0 /HPF (0.0-6.0) 08/31/16 15:37 U Epithel Cells (Auto) < 1.0 /HPF (0-13.0) 08/31/16 15:37 Urine Bacteria (Auto) 1+ /HPF (Negative) 08/31/16 15:37 Hyaline Casts 5 /LPF 08/31/16 15:37 Urine Mucus Few /HPF 08/31/16 15:37 Blood Type O POSITIVE 09/08/16 11:00 Antibody Screen TNR 09/08/16 11:00 PATRICK Antibody Screen Negative 09/08/16 11:00 Crossmatch See Detail 09/08/16 11:00
--- NOTE | 2016-09-11 11:25 | Progress Note ---
Assessment and Plan (1) Respiratory failure Current Visit: Yes Status: Acute Qualifiers: Chronicity: C Respiratory failure complication: R Plan to address problem: - continue daytime PSV trials as tolerated - VAP bundle addressed - continue to Wean FIO2 for O2 sats>92% - continue VTE prophylaxis (SCD's re: thrombocytopenia) - continue Stress ulcer prophylaxis (Pantoprazole) - continuing sedation vacations while watching for any obvious seizure activity - continue Lung protective strategies - will add gentle diuresis now with better BP's and stopped IVF - she needs a tracheostomy and consult placed - LTAC evaluation ongoing and family refuses to sign for tracheostomy in meantime (2) Shock Current Visit: Yes Status: Acute Plan to address problem: - Treated as septic shock secondary to HCAP - off levophed now - continue strict glycemic control - completed AB's course; trending WBC - ID following - continue stress dosed solucortef - continue midodrine (3) Acute on chronic diastolic (congestive) heart failure Current Visit: No Status: Acute Plan to address problem: - Documented EF 55% - CVP's 12-21 - resume gentle diuresis - Continue to monitoring renal function and electrolyte profile closely - continue to monitor urine output, electrolyte profile (4) Altered mental status Current Visit: Yes Status: Acute Qualifiers: Altered mental status type: unspecified Coma depth: C Coma timing: C Qualified Code(s): R41.82 - Altered mental status, unspecified Plan to address problem: - Neurology following - on keppra - weaned off ativan and will use prn now - TSH elevated and started on low dose levoxyl (5) Morbid obesity Current Visit: Yes Status: Acute Qualifiers: Obesity type: unspecified obesity type Qualified Code(s): E66.01 - Morbid ( severe) obesity due to excess calories - weight loss strategies once more stable - caloric intake per billet assembler at this point (6) Anemia Current Visit: Yes Status: Acute Qualifiers: Anemia type: unspecified type Iron deficiency anemia type: I Vitamin B12 deficiency anemia type: V Folate deficiency anemia type: F Bone marrow failure anemia type: B Hemolytic anemia type: H Other causes of anemia: O Qualified Code(s): D64.9 - Anemia, unspecified Plan to address problem: - no more coffee grounds noted - continuing PPI therapy - continue reglan but increased frequency - continue tube feeding but at 5mls/hr (7) Status epilepticus Current Visit: Yes Status: Acute Plan to address problem: - Continue AEDs - Neurology following - no obvious clinical seizure activity (8) 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 - This could be secondary to an intra-cranial process, however unable to obtain neuro-imaging, patient's weight exceeds allowable maximum (9) Discharge planning issues Current Visit: Yes Status: Acute Plan to address problem: - Continue current care. - need to determine appropriate power of college or university faculty member / legal healthcare community service representative prior to any tentative withdrawal of care - son came by and signed DNR order however no concencus on hospice care / withdrawal - transfer to LTAC once bed available ..she remains critically ill on life sustaining interventions including MVS and at high risk for further deterioration including ....34' CCT Subjective Date of service: 09/11/16 Principal diagnosis: Acute Hypoxemic Hypercapnic Resp Failure; Severe Sepsis Interval history: Seen and examined at bedside; 24 hour events reviewed; nursing and respiratory care staff consulted; no adverse overnight events reported to me; more somnolent than lethargic earlier; residuals increased and possible regurgitation without overt emesis; no fevers / chills; ETT at 22 cm RAFAEL; off vasopressors and good press Objective Vital Signs - 12hr 09/10/16 09/10/16 09/11/16 23:30 23:45 00:00 Temperature 97.8 F Pulse Rate 81 80 73 Pulse Rate [ Anterior Bilateral Throughout] Respiratory 19 20 22 Rate Respiratory Rate [Anterior Bilateral Throughout] Blood Pressure 151/64 134/63 144/56 O2 Sat by Pulse 95 96 97 Oximetry 09/11/16 09/11/16 09/11/16 00:15 00:30 00:45 Temperature Pulse Rate 91 H 65 72 Pulse Rate [ Anterior Bilateral Throughout] Respiratory 21 22 23 Rate Respiratory Rate [Anterior Bilateral Throughout] Blood Pressure 135/72 154/56 141/73 O2 Sat by Pulse 95 97 93 Oximetry 09/11/16 09/11/16 09/11/16 01:00 01:15 01:30 Temperature Pulse Rate 67 65 60 Pulse Rate [ Anterior Bilateral Throughout] Respiratory 22 21 21 Rate Respiratory Rate [Anterior Bilateral Throughout] Blood Pressure 146/72 152/72 146/69 O2 Sat by Pulse 97 94 92 Oximetry 09/11/16 09/11/16 09/11/16 01:45 01:58 02:00 Temperature Pulse Rate 80 79 Pulse Rate [ 78 77 Anterior Bilateral Throughout] Respiratory 23 19 Rate Respiratory 27 H 24 Rate [Anterior Bilateral Throughout] Blood Pressure 151/70 155/61 O2 Sat by Pulse 96 93 Oximetry 09/11/16 09/11/16 09/11/16 02:15 02:30 02:45 Temperature Pulse Rate 74 71 63 Pulse Rate [ Anterior Bilateral Throughout] Respiratory 25 H 23 27 H Rate Respiratory Rate [Anterior Bilateral Throughout] Blood Pressure 147/61 147/61 157/67 O2 Sat by Pulse 99 92 95 Oximetry 09/11/16 09/11/16 09/11/16 03:00 03:15 03:30 Temperature Pulse Rate 64 66 77 Pulse Rate [ Anterior Bilateral Throughout] Respiratory 27 H 26 H 28 H Rate Respiratory Rate [Anterior Bilateral Throughout] Blood Pressure 138/69 146/61 143/61 O2 Sat by Pulse 93 97 94 Oximetry 09/11/16 09/11/16 09/11/16 03:45 03:50 04:00 Temperature 97.0 F L Pulse Rate 74 63 68 Pulse Rate [ Anterior Bilateral Throughout] Respiratory 30 H 24 Rate Respiratory Rate [Anterior Bilateral Throughout] Blood Pressure 155/68 155/68 148/61 O2 Sat by Pulse 94 99 94 Oximetry 09/11/16 09/11/16 09/11/16 04:16 04:30 04:46 Temperature Pulse Rate 68 73 78 Pulse Rate [ Anterior Bilateral Throughout] Respiratory 26 H 26 H 24 Rate Respiratory Rate [Anterior Bilateral Throughout] Blood Pressure 148/61 148/61 148/61 O2 Sat by Pulse 99 99 99 Oximetry 09/11/16 09/11/16 09/11/16 05:00 05:16 05:30 Temperature Pulse Rate 68 67 70 Pulse Rate [ Anterior Bilateral Throughout] Respiratory 23 22 23 Rate Respiratory Rate [Anterior Bilateral Throughout] Blood Pressure 133/68 133/68 133/68 O2 Sat by Pulse 94 100 99 Oximetry 09/11/16 09/11/16 09/11/16 05:46 06:00 06:16 Temperature Pulse Rate 69 63 69 Pulse Rate [ Anterior Bilateral Throughout] Respiratory 24 25 H 24 Rate Respiratory Rate [Anterior Bilateral Throughout] Blood Pressure 133/68 141/66 133/68 O2 Sat by Pulse 100 94 99 Oximetry 09/11/16 09/11/16 09/11/16 06:30 06:46 07:00 Temperature Pulse Rate 79 74 80 Pulse Rate [ Anterior Bilateral Throughout] Respiratory 32 H 27 H 29 H Rate Respiratory Rate [Anterior Bilateral Throughout] Blood Pressure 133/68 133/68 150/79 O2 Sat by Pulse 100 100 99 Oximetry 09/11/16 09/11/16 09/11/16 07:16 07:30 07:46 Temperature Pulse Rate 77 79 67 Pulse Rate [ Anterior Bilateral Throughout] Respiratory 21 29 H 28 H Rate Respiratory Rate [Anterior Bilateral Throughout] Blood Pressure 150/79 150/79 150/79 O2 Sat by Pulse 99 100 99 Oximetry 09/11/16 09/11/16 09/11/16 08:00 08:15 08:16 Temperature 98 F Pulse Rate 58 L 91 H Pulse Rate [ 66 74 Anterior Bilateral Throughout] Respiratory 29 H 30 H Rate Respiratory 29 H 31 H Rate [Anterior Bilateral Throughout] Blood Pressure 150/79 144/74 O2 Sat by Pulse 99 100 Oximetry 09/11/16 09/11/16 09/11/16 08:30 08:46 09:00 Temperature Pulse Rate 60 57 L 67 Pulse Rate [ Anterior Bilateral Throughout] Respiratory 23 26 H 25 H Rate Respiratory Rate [Anterior Bilateral Throughout] Blood Pressure 144/74 144/74 143/67 O2 Sat by Pulse 99 100 94 Oximetry Constitutional: no acute distress, other (somnolent) Eyes: non-icteric ENT: oropharynx moist Neck: supple, no lymphadenopathy Effort: mildly labored Ascultation: Bilateral: diminished breath sounds (bases), rales Cardiovascular: regular rate and rhythm Gastrointestinal: hypoactive bowel sounds, soft, non-tender, non-distended Integumentary: normal Extremities: no cyanosis, pulses normal, no ischemia or petechiae, edema (trace) Neurologic: unable to assess, other (lethargic) Psychiatric: other (sedated) CBC and BMP: 09/09/16 18:10 09/11/16 05:00 ABG, PT/INR, D-dimer: ABG POC ABG pH 7.454 (7.35-7.45) H 09/09/16 12:33 POC ABG pCO2 38.4 (35-45) 09/09/16 12:33 POC ABG pO2 75 (80-105) L 09/09/16 12:33 POC ABG HCO3 27.0 09/09/16 12:33 POC ABG Total CO2 28 09/09/16 12:33 POC ABG O2 Sat 96 09/09/16 12:33 PT/INR, D-dimer PT 13.8 Sec. (12.2-14.9) 09/10/16 05:10 INR 1.07 (0.87-1.13) 09/10/16 05:10 Abnormal lab findings: Abnormal Labs 08/29/16 08/30/16 08/30/16 21:59 00:16 05:39 WBC RBC Hgb Hct MCH MCHC RDW Plt Count Seg Neutrophils % Seg Neuts % (Manual) Nucleated RBC % Seg Neutrophils # Seg Neutrophils # Man PT INR POC ABG pH POC ABG pCO2 POC ABG pO2 Sodium Potassium Chloride Carbon Dioxide BUN Creatinine Glucose POC Glucose 106 H 128 H Lactic Acid Calcium Total Bilirubin AST ALT Alkaline Phosphatase Ammonia Troponin T C-Reactive Protein Total Protein Albumin Prealbumin 0.120 L TSH Crossmatch 08/30/16 08/30/16 08/30/16 10:30 10:30 11:12 WBC 11.1 H RBC 3.16 L Hgb 8.7 L Hct 29.9 L MCH MCHC 29 L RDW 25.0 H Plt Count Seg Neutrophils % 78.6 H Seg Neuts % (Manual) Nucleated RBC % Seg Neutrophils # 8.7 H Seg Neutrophils # Man PT INR POC ABG pH POC ABG pCO2 POC ABG pO2 Sodium 135 L Potassium Chloride Carbon Dioxide 20 L BUN Creatinine 1.5 H Glucose 148 H POC Glucose 142 H Lactic Acid Calcium 7.2 L Total Bilirubin 1.30 H AST 143 H ALT Alkaline Phosphatase 392 H Ammonia Troponin T C-Reactive Protein Total Protein 6.1 L Albumin 1.2 L Prealbumin TSH Crossmatch 08/30/16 08/30/16 08/30/16 17:41 18:03 18:18 WBC RBC Hgb Hct MCH MCHC RDW Plt Count Seg Neutrophils % Seg Neuts % (Manual) Nucleated RBC % Seg Neutrophils # Seg Neutrophils # Man PT INR POC ABG pH 7.316 L POC ABG pCO2 POC ABG pO2 44 L 59 L Sodium Potassium Chloride Carbon Dioxide BUN Creatinine Glucose POC Glucose 150 H Lactic Acid Calcium Total Bilirubin AST ALT Alkaline Phosphatase Ammonia Troponin T C-Reactive Protein Total Protein Albumin Prealbumin TSH Crossmatch 08/30/16 08/30/16 08/31/16 22:20 22:20 00:11 WBC RBC Hgb Hct MCH MCHC RDW Plt Count Seg Neutrophils % Seg Neuts % (Manual) Nucleated RBC % Seg Neutrophils # Seg Neutrophils # Man PT INR POC ABG pH POC ABG pCO2 POC ABG pO2 Sodium Potassium Chloride Carbon Dioxide BUN Creatinine Glucose POC Glucose 133 H Lactic Acid 2.30 H* Calcium Total Bilirubin AST ALT Alkaline Phosphatase Ammonia Troponin T C-Reactive Protein 10.20 H Total Protein Albumin Prealbumin TSH Crossmatch 08/31/16 08/31/16 08/31/16 04:20 04:20 04:20 WBC 18.3 H RBC 3.19 L Hgb 8.8 L Hct 30.0 L MCH 27 L MCHC 29 L RDW 23.9 H Plt Count Seg Neutrophils % Seg Neuts % (Manual) Nucleated RBC % Seg Neutrophils # Seg Neutrophils # Man PT 16.8 H INR 1.37 H POC ABG pH POC ABG pCO2 POC ABG pO2 Sodium 136 L Potassium Chloride Carbon Dioxide 19 L BUN Creatinine 1.5 H Glucose 125 H POC Glucose Lactic Acid Calcium 7.0 L Total Bilirubin 1.50 H AST 131 H ALT Alkaline Phosphatase 431 H Ammonia Troponin T C-Reactive Protein Total Protein 6.2 L Albumin 1.2 L Prealbumin TSH Crossmatch 08/31/16 08/31/16 08/31/16 04:20 05:22 05:24 WBC RBC Hgb Hct MCH MCHC RDW Plt Count Seg Neutrophils % Seg Neuts % (Manual) Nucleated RBC % Seg Neutrophils # Seg Neutrophils # Man PT INR POC ABG pH POC ABG pCO2 POC ABG pO2 142 H Sodium Potassium Chloride Carbon Dioxide BUN Creatinine Glucose POC Glucose 123 H Lactic Acid Calcium Total Bilirubin AST ALT Alkaline Phosphatase Ammonia 70.0 H Troponin T C-Reactive Protein Total Protein Albumin Prealbumin TSH Crossmatch 08/31/16 08/31/16 08/31/16 12:10 15:45 17:38 WBC RBC Hgb Hct MCH MCHC RDW Plt Count Seg Neutrophils % Seg Neuts % (Manual) Nucleated RBC % Seg Neutrophils # Seg Neutrophils # Man PT INR POC ABG pH POC ABG pCO2 POC ABG pO2 Sodium 136 L Potassium Chloride Carbon Dioxide 21 L BUN Creatinine 1.5 H Glucose 160 H POC Glucose 147 H 151 H Lactic Acid Calcium 6.9 L Total Bilirubin AST ALT Alkaline Phosphatase Ammonia Troponin T 0.109 H* D C-Reactive Protein Total Protein Albumin Prealbumin TSH Crossmatch 09/01/16 09/01/16 09/01/16 00:09 04:00 04:00 WBC 14.8 H RBC 2.89 L Hgb 7.8 L Hct 27.2 L MCH 27 L MCHC 29 L RDW 24.4 H Plt Count Seg Neutrophils % Seg Neuts % (Manual) Nucleated RBC % Seg Neutrophils # Seg Neutrophils # Man PT 18.2 H INR 1.51 H POC ABG pH POC ABG pCO2 POC ABG pO2 Sodium Potassium Chloride Carbon Dioxide BUN Creatinine Glucose POC Glucose 192 H Lactic Acid Calcium Total Bilirubin AST ALT Alkaline Phosphatase Ammonia Troponin T C-Reactive Protein Total Protein Albumin Prealbumin TSH Crossmatch 09/01/16 09/01/16 09/01/16 04:00 05:28 11:28 WBC RBC Hgb Hct MCH MCHC RDW Plt Count Seg Neutrophils % Seg Neuts % (Manual) Nucleated RBC % Seg Neutrophils # Seg Neutrophils # Man PT INR POC ABG pH POC ABG pCO2 POC ABG pO2 Sodium Potassium Chloride Carbon Dioxide 20 L BUN Creatinine 1.6 H Glucose 183 H POC Glucose 189 H 207 H Lactic Acid Calcium 6.9 L Total Bilirubin 1.30 H AST 138 H ALT Alkaline Phosphatase 520 H Ammonia Troponin T C-Reactive Protein Total Protein 6.1 L Albumin 1.2 L Prealbumin TSH Crossmatch 09/01/16 09/01/16 09/02/16 16:56 23:49 05:00 WBC RBC Hgb Hct MCH MCHC RDW Plt Count Seg Neutrophils % Seg Neuts % (Manual) Nucleated RBC % Seg Neutrophils # Seg Neutrophils # Man PT 18.0 H INR 1.49 H POC ABG pH POC ABG pCO2 POC ABG pO2 Sodium Potassium Chloride Carbon Dioxide BUN Creatinine Glucose POC Glucose 250 H 307 H Lactic Acid Calcium Total Bilirubin AST ALT Alkaline Phosphatase Ammonia Troponin T C-Reactive Protein Total Protein Albumin Prealbumin TSH Crossmatch 09/02/16 09/02/16 09/02/16 05:00 05:00 05:45 WBC 12.3 H RBC 2.57 L Hgb 7.1 L Hct 23.4 L MCH MCHC RDW 23.9 H Plt Count Seg Neutrophils % Seg Neuts % (Manual) 72.0 H Nucleated RBC % 25.0 H Seg Neutrophils # Seg Neutrophils # Man 8.9 H PT INR POC ABG pH POC ABG pCO2 POC ABG pO2 Sodium Potassium Chloride Carbon Dioxide BUN Creatinine 1.4 H Glucose 299 H POC Glucose 327 H Lactic Acid Calcium 7.0 L Total Bilirubin AST ALT Alkaline Phosphatase Ammonia Troponin T C-Reactive Protein Total Protein Albumin Prealbumin TSH Crossmatch 09/02/16 09/02/16 09/02/16 12:22 17:22 23:24 WBC RBC Hgb Hct MCH MCHC RDW Plt Count Seg Neutrophils % Seg Neuts % (Manual) Nucleated RBC % Seg Neutrophils # Seg Neutrophils # Man PT INR POC ABG pH POC ABG pCO2 POC ABG pO2 Sodium Potassium Chloride Carbon Dioxide BUN Creatinine Glucose POC Glucose 310 H 358 H 286 H Lactic Acid Calcium Total Bilirubin AST ALT Alkaline Phosphatase Ammonia Troponin T C-Reactive Protein Total Protein Albumin Prealbumin TSH Crossmatch 09/03/16 09/03/16 09/03/16 04:10 04:10 04:10 WBC 11.8 H RBC 2.29 L Hgb 6.1 L Hct 21.0 L MCH 27 L MCHC 29 L RDW 24.1 H Plt Count Seg Neutrophils % Seg Neuts % (Manual) Nucleated RBC % Seg Neutrophils # Seg Neutrophils # Man PT 17.6 H INR 1.45 H POC ABG pH POC ABG pCO2 POC ABG pO2 Sodium Potassium Chloride Carbon Dioxide BUN Creatinine 1.4 H Glucose 301 H POC Glucose Lactic Acid Calcium 7.0 L Total Bilirubin AST ALT Alkaline Phosphatase Ammonia Troponin T C-Reactive Protein Total Protein Albumin Prealbumin TSH Crossmatch 09/03/16 09/03/16 09/03/16 05:59 11:36 17:42 WBC RBC Hgb Hct MCH MCHC RDW Plt Count Seg Neutrophils % Seg Neuts % (Manual) Nucleated RBC % Seg Neutrophils # Seg Neutrophils # Man PT INR POC ABG pH POC ABG pCO2 POC ABG pO2 Sodium Potassium Chloride Carbon Dioxide BUN Creatinine Glucose POC Glucose 351 H 285 H 259 H Lactic Acid Calcium Total Bilirubin AST ALT Alkaline Phosphatase Ammonia Troponin T C-Reactive Protein Total Protein Albumin Prealbumin TSH Crossmatch 09/03/16 09/04/16 09/04/16 23:00 04:27 05:36 WBC RBC Hgb Hct MCH MCHC RDW Plt Count Seg Neutrophils % Seg Neuts % (Manual) Nucleated RBC % Seg Neutrophils # Seg Neutrophils # Man PT INR POC ABG pH 7.544 H POC ABG pCO2 30.8 L POC ABG pO2 78 L Sodium Potassium Chloride Carbon Dioxide BUN Creatinine Glucose POC Glucose 192 H 228 H Lactic Acid Calcium Total Bilirubin AST ALT Alkaline Phosphatase Ammonia Troponin T C-Reactive Protein Total Protein Albumin Prealbumin TSH Crossmatch 09/04/16 09/04/16 09/04/16 06:37 06:37 06:39 WBC 21.0 H RBC 2.22 L Hgb 6.0 L Hct 20.1 L MCH 27 L MCHC RDW 24.3 H Plt Count Seg Neutrophils % Seg Neuts % (Manual) Nucleated RBC % Seg Neutrophils # Seg Neutrophils # Man PT 16.8 H INR 1.37 H POC ABG pH POC ABG pCO2 POC ABG pO2 Sodium Potassium Chloride Carbon Dioxide BUN Creatinine 1.4 H Glucose 201 H POC Glucose Lactic Acid Calcium 7.1 L Total Bilirubin AST ALT Alkaline Phosphatase Ammonia Troponin T C-Reactive Protein Total Protein Albumin Prealbumin TSH Crossmatch 09/04/16 09/04/16 09/04/16 12:14 15:47 17:41 WBC RBC Hgb Hct MCH MCHC RDW Plt Count Seg Neutrophils % Seg Neuts % (Manual) Nucleated RBC % Seg Neutrophils # Seg Neutrophils # Man PT INR POC ABG pH POC ABG pCO2 POC ABG pO2 Sodium Potassium Chloride Carbon Dioxide BUN Creatinine Glucose POC Glucose 176 H 218 H Lactic Acid Calcium Total Bilirubin AST ALT Alkaline Phosphatase Ammonia Troponin T C-Reactive Protein Total Protein Albumin Prealbumin TSH Crossmatch See Detail 09/04/16 09/04/16 09/05/16 21:59 23:48 04:30 WBC RBC Hgb Hct MCH MCHC RDW Plt Count Seg Neutrophils % Seg Neuts % (Manual) Nucleated RBC % Seg Neutrophils # Seg Neutrophils # Cristian PT 17.2 H INR 1.41 H POC ABG pH POC ABG pCO2 POC ABG pO2 Sodium Potassium Chloride Carbon Dioxide BUN Creatinine Glucose POC Glucose 170 H 121 H Lactic Acid Calcium Total Bilirubin AST ALT Alkaline Phosphatase Ammonia Troponin T C-Reactive Protein Total Protein Albumin Prealbumin TSH Crossmatch 09/05/16 09/05/16 09/05/16 04:30 04:30 05:09 WBC 31.9 H RBC 3.11 L Hgb 8.5 L Hct 28.3 L D MCH 27 L MCHC RDW 21.0 H Plt Count Seg Neutrophils % Seg Neuts % (Manual) Nucleated RBC % Seg Neutrophils # Seg Neutrophils # Man PT INR POC ABG pH 7.226 L POC ABG pCO2 61.6 H POC ABG pO2 68 L Sodium 134 L Potassium 5.5 H Chloride 96.6 L Carbon Dioxide BUN 23 H Creatinine 1.6 H Glucose 116 H POC Glucose Lactic Acid Calcium 7.1 L Total Bilirubin AST ALT Alkaline Phosphatase Ammonia Troponin T C-Reactive Protein Total Protein Albumin Prealbumin TSH Crossmatch 09/05/16 09/05/16 09/05/16 05:33 12:08 17:32 WBC RBC Hgb Hct MCH MCHC RDW Plt Count Seg Neutrophils % Seg Neuts % (Manual) Nucleated RBC % Seg Neutrophils # Seg Neutrophils # Man PT INR POC ABG pH POC ABG pCO2 POC ABG pO2 Sodium Potassium Chloride Carbon Dioxide BUN Creatinine Glucose POC Glucose 114 H 147 H 174 H Lactic Acid Calcium Total Bilirubin AST ALT Alkaline Phosphatase Ammonia Troponin T C-Reactive Protein Total Protein Albumin Prealbumin TSH Crossmatch 09/06/16 09/06/16 09/06/16 03:30 03:30 03:30 WBC 25.4 H RBC 2.57 L Hgb 7.2 L Hct 22.8 L MCH MCHC RDW 20.9 H Plt Count 138 L Seg Neutrophils % Seg Neuts % (Manual) Nucleated RBC % Seg Neutrophils # Seg Neutrophils # Man PT 16.4 H INR 1.33 H POC ABG pH POC ABG pCO2 POC ABG pO2 Sodium Potassium Chloride Carbon Dioxide BUN 36 H Creatinine 1.9 H Glucose POC Glucose Lactic Acid Calcium 7.2 L Total Bilirubin AST ALT Alkaline Phosphatase Ammonia Troponin T C-Reactive Protein Total Protein Albumin Prealbumin TSH Crossmatch 09/06/16 09/06/16 09/06/16 11:07 12:03 14:44 WBC RBC Hgb Hct MCH MCHC RDW Plt Count Seg Neutrophils % Seg Neuts % (Manual) Nucleated RBC % Seg Neutrophils # Seg Neutrophils # Man PT INR POC ABG pH POC ABG pCO2 POC ABG pO2 Sodium Potassium Chloride Carbon Dioxide BUN Creatinine Glucose POC Glucose 61 L 55 L Lactic Acid Calcium Total Bilirubin AST ALT Alkaline Phosphatase Ammonia Troponin T 0.080 H C-Reactive Protein Total Protein Albumin Prealbumin TSH Crossmatch 09/06/16 09/06/16 09/07/16 21:05 23:53 03:36 WBC RBC Hgb Hct MCH MCHC RDW Plt Count Seg Neutrophils % Seg Neuts % (Manual) Nucleated RBC % Seg Neutrophils # Seg Neutrophils # Man PT INR POC ABG pH POC ABG pCO2 POC ABG pO2 Sodium Potassium Chloride Carbon Dioxide BUN Creatinine Glucose POC Glucose 140 H 178 H 243 H Lactic Acid Calcium Total Bilirubin AST ALT Alkaline Phosphatase Ammonia Troponin T C-Reactive Protein Total Protein Albumin Prealbumin TSH Crossmatch 09/07/16 09/07/16 09/07/16 03:42 03:42 05:04 WBC 17.3 H RBC 2.69 L Hgb 7.6 L Hct 23.8 L MCH MCHC RDW 20.5 H Plt Count 137 L Seg Neutrophils % Seg Neuts % (Manual) Nucleated RBC % Seg Neutrophils # Seg Neutrophils # Man PT INR POC ABG pH POC ABG pCO2 POC ABG pO2 Sodium Potassium 3.3 L Chloride Carbon Dioxide BUN 38 H Creatinine 1.6 H Glucose 201 H POC Glucose 241 H Lactic Acid Calcium 7.4 L Total Bilirubin AST ALT Alkaline Phosphatase Ammonia Troponin T C-Reactive Protein Total Protein Albumin Prealbumin TSH Crossmatch 09/07/16 09/07/16 09/07/16 11:46 17:41 23:18 WBC RBC Hgb Hct MCH MCHC RDW Plt Count Seg Neutrophils % Seg Neuts % (Manual) Nucleated RBC % Seg Neutrophils # Seg Neutrophils # Man PT INR POC ABG pH POC ABG pCO2 POC ABG pO2 Sodium Potassium Chloride Carbon Dioxide BUN Creatinine Glucose POC Glucose 313 H 227 H 116 H Lactic Acid Calcium Total Bilirubin AST ALT Alkaline Phosphatase Ammonia Troponin T C-Reactive Protein Total Protein Albumin Prealbumin TSH Crossmatch 09/08/16 09/08/16 09/08/16 04:00 04:00 05:15 WBC 18.4 H RBC 2.43 L Hgb 6.9 L Hct 21.5 L MCH MCHC RDW 20.5 H Plt Count 119 L Seg Neutrophils % Seg Neuts % (Manual) Nucleated RBC % Seg Neutrophils # Seg Neutrophils # Man PT INR POC ABG pH 7.458 H POC ABG pCO2 POC ABG pO2 177 H Sodium Potassium 3.5 L Chloride Carbon Dioxide BUN 37 H Creatinine 1.3 H Glucose POC Glucose Lactic Acid Calcium 7.1 L Total Bilirubin AST ALT Alkaline Phosphatase Ammonia Troponin T C-Reactive Protein Total Protein Albumin Prealbumin TSH Crossmatch 09/08/16 09/08/16 09/08/16 11:00 15:58 23:16 WBC RBC Hgb Hct MCH MCHC RDW Plt Count Seg Neutrophils % Seg Neuts % (Manual) Nucleated RBC % Seg Neutrophils # Seg Neutrophils # Man PT INR POC ABG pH POC ABG pCO2 POC ABG pO2 113 H Sodium Potassium Chloride Carbon Dioxide BUN Creatinine Glucose POC Glucose 40 L Lactic Acid Calcium Total Bilirubin AST ALT Alkaline Phosphatase Ammonia Troponin T C-Reactive Protein Total Protein Albumin Prealbumin TSH Crossmatch See Detail 09/09/16 09/09/16 09/09/16 05:02 12:33 18:10 WBC RBC Hgb Hct MCH MCHC RDW Plt Count Seg Neutrophils % Seg Neuts % (Manual) Nucleated RBC % Seg Neutrophils # Seg Neutrophils # Man PT INR POC ABG pH 7.454 H POC ABG pCO2 POC ABG pO2 75 L Sodium Potassium Chloride Carbon Dioxide BUN Creatinine Glucose POC Glucose 59 L Lactic Acid Calcium Total Bilirubin AST ALT Alkaline Phosphatase Ammonia Troponin T C-Reactive Protein Total Protein Albumin Prealbumin TSH 5.220 H Crossmatch 09/09/16 09/09/16 09/09/16 18:10 18:10 18:42 WBC 17.0 H RBC 2.90 L Hgb 8.5 L Hct 26.1 L MCH MCHC RDW 17.9 H Plt Count 126 L Seg Neutrophils % Seg Neuts % (Manual) Nucleated RBC % Seg Neutrophils # Seg Neutrophils # Man PT INR POC ABG pH POC ABG pCO2 POC ABG pO2 Sodium Potassium Chloride Carbon Dioxide BUN 36 H Creatinine Glucose 133 H POC Glucose 148 H Lactic Acid Calcium 6.9 L Total Bilirubin AST 253 H ALT 184 H Alkaline Phosphatase 729 H Ammonia Troponin T C-Reactive Protein Total Protein 5.1 L Albumin 1.7 L Prealbumin TSH Crossmatch 09/09/16 09/10/16 09/10/16 23:22 05:10 11:43 WBC RBC Hgb Hct MCH MCHC RDW Plt Count Seg Neutrophils % Seg Neuts % (Manual) Nucleated RBC % Seg Neutrophils # Seg Neutrophils # Man PT INR POC ABG pH POC ABG pCO2 POC ABG pO2 Sodium Potassium Chloride Carbon Dioxide BUN 35 H Creatinine Glucose 240 H POC Glucose 170 H 268 H Lactic Acid Calcium 6.8 L Total Bilirubin AST 226 H ALT 171 H Alkaline Phosphatase 710 H Ammonia Troponin T C-Reactive Protein Total Protein 5.2 L Albumin 1.7 L Prealbumin TSH Crossmatch 09/10/16 09/11/16 09/11/16 17:51 01:07 05:00 WBC RBC Hgb Hct MCH MCHC RDW Plt Count Seg Neutrophils % Seg Neuts % (Manual) Nucleated RBC % Seg Neutrophils # Seg Neutrophils # Man PT INR POC ABG pH POC ABG pCO2 POC ABG pO2 Sodium Potassium 2.9 L* Chloride Carbon Dioxide BUN 35 H Creatinine Glucose 274 H POC Glucose 334 H 223 H Lactic Acid Calcium 6.9 L Total Bilirubin AST 167 H ALT 145 H Alkaline Phosphatase 631 H Ammonia Troponin T C-Reactive Protein Total Protein 5.1 L Albumin 1.6 L Prealbumin TSH Crossmatch Chest x-ray: image reviewed Allied health notes reviewed: RT
--- NOTE | 2016-09-11 11:34 | Progress Note ---
Assessment and Plan Altered mental status Acute respiratory failure intubated on the vent Lactic acidosis Anemia requiring blood transfusion Obesity Decubitus ulcers Sepsis Diabetes AND/DNR status EF 50-55% on echo 06/2016. Conservative cardiac management. Subjective Date of service: 09/11/16 Principal diagnosis: Acute Hypoxemic Hypercapnic Resp Failure; Severe Sepsis Interval history: Patient remains intubated on the vent. Objective Vital Signs Temp Pulse Pulse Resp Resp BP Pulse Ox 09/11/16 09:00 67 25 H 143/67 94 09/11/16 08:46 57 L 26 H 144/74 100 09/11/16 08:30 60 23 144/74 99 09/11/16 08:16 91 H 30 H 144/74 100 09/11/16 08:15 74 31 H 09/11/16 08:00 98 F 58 L 66 29 H 29 H 150/79 99 09/11/16 07:46 67 28 H 150/79 99 09/11/16 07:30 79 29 H 150/79 100 09/11/16 07:16 77 21 150/79 99 09/11/16 07:00 80 29 H 150/79 99 09/11/16 06:46 74 27 H 133/68 100 09/11/16 06:30 79 32 H 133/68 100 09/11/16 06:16 69 24 133/68 99 09/11/16 06:00 63 25 H 141/66 94 09/11/16 05:46 69 24 133/68 100 09/11/16 05:30 70 23 133/68 99 09/11/16 05:16 67 22 133/68 100 09/11/16 05:00 68 23 133/68 94 09/11/16 04:46 78 24 148/61 99 09/11/16 04:30 73 26 H 148/61 99 09/11/16 04:16 68 26 H 148/61 99 09/11/16 04:00 97.0 F L 68 24 148/61 94 09/11/16 03:50 63 155/68 99 09/11/16 03:45 74 30 H 155/68 94 09/11/16 03:30 77 28 H 143/61 94 09/11/16 03:15 66 26 H 146/61 97 09/11/16 03:00 64 27 H 138/69 93 09/11/16 02:45 63 27 H 157/67 95 09/11/16 02:30 71 23 147/61 92 09/11/16 02:15 74 25 H 147/61 99 09/11/16 02:00 79 19 155/61 93 09/11/16 01:58 77 24 09/11/16 01:45 80 78 23 27 H 151/70 96 09/11/16 01:30 60 21 146/69 92 09/11/16 01:15 65 21 152/72 94 09/11/16 01:00 67 22 146/72 97 09/11/16 00:45 72 23 141/73 93 09/11/16 00:30 65 22 154/56 97 09/11/16 00:15 91 H 21 135/72 95 09/11/16 00:00 97.8 F 73 22 144/56 97 09/10/16 23:45 80 20 134/63 96 09/10/16 23:30 81 19 151/64 95 09/10/16 23:15 79 23 140/62 97 09/10/16 23:00 83 22 147/51 99 09/10/16 22:45 76 22 146/71 97 09/10/16 22:30 72 22 138/68 94 09/10/16 22:15 63 21 134/66 96 09/10/16 22:00 81 24 133/60 96 09/10/16 21:48 86 26 H 132/63 98 09/10/16 21:45 78 28 H 132/63 95 09/10/16 21:30 88 21 138/66 97 09/10/16 21:15 69 27 H 137/50 96 09/10/16 21:00 73 27 H 149/74 95 09/10/16 20:45 83 28 H 142/65 96 09/10/16 20:30 81 32 H 144/58 96 09/10/16 20:15 93 H 23 148/62 99 09/10/16 20:00 98.5 F 78 31 H 146/53 94 09/10/16 19:45 79 30 H 141/59 98 09/10/16 19:39 88 24 09/10/16 19:30 80 77 25 H 22 145/53 100 09/10/16 19:15 86 23 136/71 99 09/10/16 19:00 85 24 134/62 97 09/10/16 18:45 88 24 138/75 98 09/10/16 18:30 81 23 141/71 98 09/10/16 18:15 82 27 H 137/69 96 09/10/16 18:02 93 H 123/77 98 09/10/16 18:00 95 H 27 H 143/74 93 09/10/16 17:45 95 H 24 123/77 96 09/10/16 17:30 94 H 21 134/75 97 09/10/16 17:15 96 H 24 138/72 92 09/10/16 17:00 102 H 15 142/82 96 09/10/16 16:46 119 H 18 130/53 86 09/10/16 16:30 93 H 35 H 130/53 93 09/10/16 16:15 95 H 34 H 135/54 93 09/10/16 16:00 98.5 F 98 H 33 H 139/44 93 09/10/16 15:45 93 H 36 H 134/54 93 09/10/16 15:30 94 H 35 H 145/63 93 09/10/16 15:15 98 H 34 H 131/53 95 09/10/16 15:00 79 31 H 121/54 92 09/10/16 14:45 94 H 33 H 136/52 94 09/10/16 14:30 96 H 35 H 131/53 96 09/10/16 14:15 95 H 35 H 120/51 95 09/10/16 14:00 84 36 H 117/57 98 09/10/16 13:45 93 H 34 H 139/58 95 09/10/16 13:31 85 85 35 H 35 H 128/62 98 09/10/16 13:30 95 H 33 H 139/61 94 09/10/16 13:15 93 H 36 H 128/62 94 09/10/16 13:00 92 H 30 H 127/54 95 09/10/16 12:45 90 38 H 127/60 99 09/10/16 12:30 93 H 33 H 128/55 95 09/10/16 12:15 80 34 H 120/53 96 09/10/16 12:00 98.7 F 90 31 H 133/52 95 09/10/16 11:45 88 32 H 118/49 94 - Physical Examination General: Other (intubated on the vent) Cardiac: Positive: Reg Rate and Rhythm - Labs and Meds Cardiac Enzymes 09/11/16 Range/Units 05:00 AST 167 H (5-40) units/L Comprehensive Metabolic Panel 09/11/16 Range/Units 05:00 Sodium 138 (137-145) mmol/L Potassium 2.9 L* (3.6-5.0) mmol/L Chloride 100.1 (98-107) mmol/L Carbon Dioxide 23 (22-30) mmol/L BUN 35 H (7-17) mg/dL Creatinine 0.8 (0.7-1.2) mg/dL Glucose 274 H (65-100) mg/dL Calcium 6.9 L (8.4-10.2) mg/dL AST 167 H (5-40) units/L ALT 145 H (7-56) units/L Alkaline Phosphatase 631 H (35-129) units/L Total Protein 5.1 L (6.3-8.2) g/dL Albumin 1.6 L (3.9-5) g/dL - Allied health notes Allied health notes reviewed: RT
[2016-09-11] MEDS ORDERED: PANCREAZE DR 10,500 UNIT FEEDTUBE PRN ×3 (12:51→12:57)
[2016-09-11] MEDS ORDERED: SIMPLE SYRUP FEEDTUBE PRN ×6 (12:51→12:57)
[2016-09-11] MEDS ORDERED: SODIUM BICARBONATE FEEDTUBE PRN ×3 (12:51→12:57)
[2016-09-11] MEDS: LASIX IV SCH (14:33)
--- NOTE | 2016-09-11 14:40 | XRay Report ---
SUPINE KUB: History: Ileus, high feeding residuals. There is poor penetration through the abdomen secondary to body habitus. Grossly, the bowel gas pattern is unremarkable. No obvious obstruction or pathologic calcifications. Mild cardiomegaly and vascular congestion is suspected at the lung bases. IMPRESSION: No acute abdominal process is identified.
[2016-09-11] MEDS: LEVEMIR SUB-Q SCH (22:09)
[2016-09-12] MEDS: REGLAN IV SCH ×4 (01:00→21:53)
[2016-09-12] MEDS: DUONEB 0.5 MG-3 MG/3 ML SOLN IH SCH ×4 (01:52→19:42)
[2016-09-12] MEDS: NOVOLOG SUB-Q SCH ×3 (02:50→18:39)
[2016-09-12] MEDS: FLAGYL 500 MG/100 ML 500 MG/100 ML BAG IV SCH ×3 (03:09→17:18)
[2016-09-12] MEDS: MAXIPIME/NS 1 GM/100 ML 1 GM/100 ML BAG IV SCH ×3 (03:09→17:00)
[2016-09-12 07:25] LABS: Hematocrit 25.4 % (30.3-42.9); Hemoglobin 8.2 gm/dl (10.1-14.3); Mean Corpuscular HGB Conc 32 % (30-34); Mean Corpuscular Hemoglobin 29 pg (28-32); Mean Corpuscular Volume 90 fl (79-97); Platelet Count 151 K/mm3 (140-440); Red Blood Count 2.81 M/mm3 (3.65-5.03); Red Cell Distribution Width 17.9 % (13.2-15.2); White Blood Count 12.9 K/mm3 (4.5-11.0)
[2016-09-12 07:36] LABS: Anion Gap 18 mmol/L; Blood Urea Nitrogen 33 mg/dL (7-17); Carbon Dioxide 23 mmol/L (22-30); Chloride 103.5 mmol/L (98-107); Glucose 95 mg/dL (65-100); Sodium 141 mmol/L (137-145)
[2016-09-12] MEDS: LOVENOX SUB-Q SCH (09:26)
[2016-09-12] MEDS: FERROUS SULFATE PO SCH (09:26)
[2016-09-12] MEDS: KEPPRA PO SCH ×2 (09:26→21:53)
[2016-09-12] MEDS: FOLVITE PO SCH (09:26)
[2016-09-12] MEDS: SYNTHROID IV SCH (09:27)
[2016-09-12] MEDS: PROTONIX PO SCH (09:30)
[2016-09-12] MEDS: LASIX IV SCH (09:33)
--- NOTE | 2016-09-12 10:07 | Progress Note ---
Assessment and Plan Assessment and plan: Patient is a 61-year-old morbid obese woman with a history of congestive heart failure, severe protein calorie malnutrition (bilateral restorationism muscle severe wasting, hypothenar muscle wasting) with BMI of 81.6, functional quadriplegia, type 2 diabetes mellitus, hypertension, multiple skin breakdown between legs and thighs who presented to the hospital via EMS with AMS. 2D echocardiogram with ejection fraction of 50-55%. During the past admission, patient was recommended for placement but refused. On presentation to ED, patient was felt to be unable to maintain her airways and intubated the ER since 08/29/16. -Acute toxic metabolic encephalopathy -Acute on chronic diastolic congestive heart failure: treated with diuresis -Acute on chronic respiratory failure, intubated > 96 hours -Septic shock on on IV solucorticef and midodrine -Severe anemia s/p blood transfusion: monitor cbc closely altered -Paroxysmal atrial fibrillation -Non-ST elevated HI type 2: Cardiology is following, conservative management -Acute on chronic kidney disease likely secondary to vasomotor nephropathy-POA -Transaminitis-elevated alkaline phosphatase and AST: continue to monitor -Severe protein calorie malnutrition albumin 1.2 -Morbid obesity BMI 81.6 -Mulitple PRESSURE ULCERS-POA: consulted wound care -uncontrolled dm: increased ssi -Acute anemia with drop in HCT resolved s/p 5 units of PRBC transfused -Levaphed off -Unable to get CT head due to weight issues Disposition: LTAC once accepted 09/04/16 , boyfriend agreed to blood transfusion, hgb is 6.0 will transfuse 2 units==>h/h steady, continue to monitor 09/05/16: Overnight was very eventful. New issue: Status epilepticus most likely due to anoxic brain injury, poa. She is back on 8 mcg of Levophed, which had weaned off up to the point of seizure activity Patient had status epilepticus before receiving blood transfusions. She was given multiple doses of Ativan and was still having breakthrough seizures. She was given phenobarbital and Dilantin but still having seizures. I started propofol drip which is helping. She still on IV Ativan drip also. Difficult family dynamics: Her son (she has multiple children), Srikanth and sister Leanne were at her bedside and well as her boyfriend who is not her legal , which he told me. They are upset because they didn't know patient was in the hospital. It appears the gentleman in the room is her boyfriend and not her legal He also did not notify the family the patient was here. That gentleman who is her boyfriend dropped the patient's wallet and our security called the number inside the wallet which was patient's mother's number and this is how the family found out that patient was in the hospital. I was told by RN, that patient has no , patient has 7 siblings and they are estranged from mother. No legal POA but sister Leanne is active in sister's life. Her boyfriend name is Tad Vieyra and he has consistently been at her beside, holding her hand and being supportive. 09/10/16: Trying to get to LTAC, still on 2 mcg of Levaphed but not sedated==>? Significant anoxic brain injury most likely poa, Ethic committee consulted because some family members want to withdraw. 09/11/16, Trach aspirated GNR, continue abx pending identification, off levaphed today. Trying to get to LTAC, they can trach her there. Only [facility] takes her insurance 09/12/16 Trach aspirate still pending, new issue of hypothermia, responded to [facility], tube feeding low rate due to high residuals, abd xray unremarkable. Potassium replaced. No restraints needs, no sedation needed, poor prognosis History Interval history: Patient seen and examined. Follow up on respiratory failure. Patient still intubated. Overnight patient was hypothermic and Abbe hugger applied. Hospitalist Physical - Physical exam Narrative exam: GEN: Critically ill, morbid obese BMI 81.6, intubated HEENT: Pupils are pinpoint and reactive, ET tube in place NECK: SUPPLE, NO THYROMEGALY, NO JVD, NO LAD CVS: regular irregular NORMAL S1S2 LUNGS/CHEST: TA B, NORMAL CHEST EXPANSION B, GOOD AIR ENTRY B ABD: SOFT, NONDISTENDED GBS, NO REBOUND OR GUARDING MSK: Spontaneous movement of extremities NEURO: CN 2-12 GROSSLY INTACT, doesn't follow commands PSY: Confused - Constitutional Vitals: Temp Pulse Resp BP Pulse Ox 99.7 F H 81 31 H 107/53 99 09/12/16 08:00 09/12/16 08:29 09/12/16 08:29 09/12/16 07:53 09/12/16 07:53 General appearance: Present: obese, other (still on mechanical ventilation ) Results - Labs CBC & Chem 7: 09/12/16 05:00 09/12/16 05:00 Labs: Laboratory Last Values WBC 12.9 K/mm3 (4.5-11.0) H 09/12/16 05:00 RBC 2.81 M/mm3 (3.65-5.03) L 09/12/16 05:00 Hgb 8.2 gm/dl (10.1-14.3) L 09/12/16 05:00 Hct 25.4 % (30.3-42.9) L 09/12/16 05:00 MCV 90 fl (79-97) 09/12/16 05:00 MCH 29 pg (28-32) 09/12/16 05:00 MCHC 32 % (30-34) 09/12/16 05:00 RDW 17.9 % (13.2-15.2) H 09/12/16 05:00 Plt Count 151 K/mm3 (140-440) 09/12/16 05:00 Lymph % (Auto) 15.6 % (13.4-35.0) 08/30/16 10:30 Sanders % (Auto) 5.1 % (0.0-7.3) 08/30/16 10:30 Eos % (Auto) 0.6 % (0.0-4.3) 08/30/16 10:30 Baso % (Auto) 0.1 % (0.0-1.8) 08/30/16 10:30 Lymph # 1.7 K/mm3 (1.2-5.4) 08/30/16 10:30 Sanders # 0.6 K/mm3 (0.0-0.8) 08/30/16 10:30 Eos # 0.1 K/mm3 (0.0-0.4) 08/30/16 10:30 Baso # 0.0 K/mm3 (0.0-0.1) 08/30/16 10:30 Add Manual Diff Complete 09/02/16 05:00 Total Counted 100 09/02/16 05:00 Seg Neutrophils % 78.6 % (40.0-70.0) H 08/30/16 10:30 Seg Neuts % (Manual) 72.0 % (40.0-70.0) H 09/02/16 05:00 Band Neutrophils % 9.0 % 09/02/16 05:00 Lymphocytes % (Manual) 15.0 % (13.4-35.0) 09/02/16 05:00 Reactive Lymphs % (Man) 0 % 09/02/16 05:00 Monocytes % (Manual) 4.0 % (0.0-7.3) 09/02/16 05:00 Eosinophils % (Manual) 0 % (0.0-4.3) 09/02/16 05:00 Basophils % (Manual) 0 % (0.0-1.8) 09/02/16 05:00 Metamyelocytes % 0 % 09/02/16 05:00 Myelocytes % 0 % 09/02/16 05:00 Promyelocytes % 0 % 09/02/16 05:00 Blast Cells % 0 % 09/02/16 05:00 Nucleated RBC % 25.0 % (0.0-0.9) H 09/02/16 05:00 Seg Neutrophils # 8.7 K/mm3 (1.8-7.7) H 08/30/16 10:30 Seg Neutrophils # Man 8.9 K/mm3 (1.8-7.7) H 09/02/16 05:00 Band Neutrophils # 1.1 K/mm3 09/02/16 05:00 Lymphocytes # (Manual) 1.8 K/mm3 (1.2-5.4) 09/02/16 05:00 Abs React Lymphs (Man) 0.0 K/mm3 09/02/16 05:00 Monocytes # (Manual) 0.5 K/mm3 (0.0-0.8) 09/02/16 05:00 Eosinophils # (Manual) 0.0 K/mm3 (0.0-0.4) 09/02/16 05:00 Basophils # (Manual) 0.0 K/mm3 (0.0-0.1) 09/02/16 05:00 Metamyelocytes # 0.0 K/mm3 09/02/16 05:00 Myelocytes # 0.0 K/mm3 09/02/16 05:00 Promyelocytes # 0.0 K/mm3 09/02/16 05:00 Blast Cells # 0.0 K/mm3 09/02/16 05:00 WBC Morphology Not Reportable 09/02/16 05:00 Hypersegmented Neuts Not Reportable 09/02/16 05:00 Hyposegmented Neuts Not Reportable 09/02/16 05:00 Hypogranular Neuts Not Reportable 09/02/16 05:00 Smudge Cells Not Reportable 09/02/16 05:00 Toxic Granulation Not Reportable 09/02/16 05:00 Toxic Vacuolation Not Reportable 09/02/16 05:00 Dohle Bodies Not Reportable 09/02/16 05:00 Pelger-Huet Anomaly Not Reportable 09/02/16 05:00 Feli Rods Not Reportable 09/02/16 05:00 Platelet Estimate Consistent w auto 09/02/16 05:00 Clumped Platelets Not Reportable 09/02/16 05:00 Plt Clumps, EDTA Not Reportable 09/02/16 05:00 Large Platelets Not Reportable 09/02/16 05:00 Giant Platelets Not Reportable 09/02/16 05:00 Platelet Satelliting Not Reportable 09/02/16 05:00 Plt Morphology Comment Not Reportable 09/02/16 05:00 RBC Morphology Not Reportable 09/02/16 05:00 Dimorphic RBCs Not Reportable 09/02/16 05:00 Polychromasia Rare 09/02/16 05:00 Hypochromasia Not Reportable 09/02/16 05:00 Poikilocytosis Not Reportable 09/02/16 05:00 Anisocytosis 1+ 09/02/16 05:00 Microcytosis Not Reportable 09/02/16 05:00 Macrocytosis 1+ 09/02/16 05:00 Spherocytes Not Reportable 09/02/16 05:00 Pappenheimer Bodies Not Reportable 09/02/16 05:00 Sickle Cells Not Reportable 09/02/16 05:00 Target Cells Not Reportable 09/02/16 05:00 Tear Drop Cells Not Reportable 09/02/16 05:00 Ovalocytes Not Reportable 09/02/16 05:00 Helmet Cells Not Reportable 09/02/16 05:00 Patterson-Cubero Bodies Not Reportable 09/02/16 05:00 [place] Rings Not Reportable 09/02/16 05:00 Scurry Cells Not Reportable 09/02/16 05:00 Bite Cells Not Reportable 09/02/16 05:00 Crenated Cell Not Reportable 09/02/16 05:00 Elliptocytes Not Reportable 09/02/16 05:00 Acanthocytes (Spur) Not Reportable 09/02/16 05:00 Rouleaux Not Reportable 09/02/16 05:00 Hemoglobin C Crystals Not Reportable 09/02/16 05:00 Schistocytes Not Reportable 09/02/16 05:00 Malaria parasites Not Reportable 09/02/16 05:00 Manny Bodies Not Reportable 09/02/16 05:00 Hem Pathologist Commnt No 09/02/16 05:00 PT 13.8 Sec. (12.2-14.9) 09/10/16 05:10 INR 1.07 (0.87-1.13) 09/10/16 05:10 APTT 29.5 Sec. (24.2-36.6) 08/29/16 17:40 POC ABG pH 7.454 (7.35-7.45) H 09/09/16 12:33 POC ABG pCO2 38.4 (35-45) 09/09/16 12:33 POC ABG pO2 75 (80-105) L 09/09/16 12:33 POC ABG HCO3 27.0 09/09/16 12:33 POC ABG Total CO2 28 09/09/16 12:33 POC ABG O2 Sat 96 09/09/16 12:33 POC ABG Base Excess 3 09/09/16 12:33 VBG pH 7.366 (7.320-7.420) 08/29/16 17:40 FiO2 30 % 09/09/16 12:33 Sodium 141 mmol/L (137-145) 09/12/16 05:00 Potassium 3.0 mmol/L (3.6-5.0) L 09/12/16 05:00 Chloride 103.5 mmol/L (98-107) 09/12/16 05:00 Carbon Dioxide 23 mmol/L (22-30) 09/12/16 05:00 Anion Gap 18 mmol/L 09/12/16 05:00 BUN 33 mg/dL (7-17) H 09/12/16 05:00 Creatinine 0.5 mg/dL (0.7-1.2) L 09/12/16 05:00 Estimated GFR > 60 ml/min 09/12/16 05:00 BUN/Creatinine Ratio 66.00 % 09/12/16 05:00 Glucose 95 mg/dL (65-100) 09/12/16 05:00 POC Glucose 183 (70-105) H 09/12/16 03:33 Lactic Acid 1.90 mmol/L (0.7-2.0) 09/07/16 15:00 Calcium 7.0 mg/dL (8.4-10.2) L 09/12/16 05:00 Phosphorus 3.60 mg/dL (2.5-4.5) 08/29/16 21:59 Magnesium 1.70 mg/dL (1.7-2.3) 09/12/16 05:00 Total Bilirubin 0.70 mg/dL (0.1-1.2) 09/11/16 05:00 AST 167 units/L (5-40) H 09/11/16 05:00 ALT 145 units/L (7-56) H 09/11/16 05:00 Alkaline Phosphatase 631 units/L (35-129) H 09/11/16 05:00 Ammonia 39.0 umol/L (25-60) 09/07/16 15:00 Total Creatine Kinase 36 units/L (30-135) 09/06/16 11:07 CK-MB (CK-2) < 1.0 ng/mL (0.0-4.0) 09/06/16 11:07 CK-MB (CK-2) Rel Index 2.7 (0-4) 09/06/16 11:07 Troponin T 0.080 ng/mL (0.00-0.029) H 09/06/16 11:07 C-Reactive Protein 10.20 mg/dL (0.00-1.30) H 08/30/16 22:20 NT-Pro-B Natriuret Pep 1712 pg/mL (0-900) H 08/29/16 17:40 Total Protein 5.1 g/dL (6.3-8.2) L 09/11/16 05:00 Albumin 1.6 g/dL (3.9-5) L 09/11/16 05:00 Albumin/Globulin Ratio 0.5 % 09/11/16 05:00 Prealbumin 0.120 g/L (0.200-0.400) L 08/29/16 21:59 Triglycerides 225 mg/dL (2-149) H 08/29/16 17:40 Cholesterol 130 mg/dL (50-199) 08/29/16 17:40 LDL Cholesterol Direct 82 mg/dL (50-130) 08/29/16 17:40 HDL Cholesterol 3 mg/dL (40-59) L 08/29/16 17:40 Cholesterol/HDL Ratio 43.33 % 08/29/16 17:40 TSH 5.220 mlU/mL (0.270-4.200) H 09/09/16 18:10 Urine Color Yellow (Yellow) 08/31/16 15:37 Urine Turbidity Clear (Clear) 08/31/16 15:37 Urine pH 5.0 (5.0-7.0) 08/31/16 15:37 Ur Specific [place] 1.009 (1.003-1.030) 08/31/16 15:37 Urine Protein <15 mg/dl mg/dL (Negative) 08/31/16 15:37 Urine Glucose (UA) Neg mg/dL (Negative) 08/31/16 15:37 Urine Ketones Neg mg/dL (Negative) 08/31/16 15:37 Urine Blood Sm (Negative) 08/31/16 15:37 Urine Nitrite Neg (Negative) 08/31/16 15:37 Urine Bilirubin Neg (Negative) 08/31/16 15:37 Urine Urobilinogen < 2.0 mg/dL (<2.0) 08/31/16 15:37 Ur Leukocyte Esterase Sm (Negative) 08/31/16 15:37 Urine WBC (Auto) 3.0 /HPF (0.0-6.0) 08/31/16 15:37 Urine RBC (Auto) 1.0 /HPF (0.0-6.0) 08/31/16 15:37 U Epithel Cells (Auto) < 1.0 /HPF (0-13.0) 08/31/16 15:37 Urine Bacteria (Auto) 1+ /HPF (Negative) 08/31/16 15:37 Hyaline Casts 5 /LPF 08/31/16 15:37 Urine Mucus Few /HPF 08/31/16 15:37 Blood Type O POSITIVE 09/08/16 11:00 Antibody Screen TNR 09/08/16 11:00 PATRICK Antibody Screen Negative 09/08/16 11:00 Crossmatch See Detail 09/08/16 11:00
--- NOTE | 2016-09-12 10:14 | XRay Report ---
AP chest History: Followup respiratory failure. Findings: Lines and support devices remain in adequate position. Bilateral congestive changes are stable. Heart size appears grossly stable at the upper limits of normal. No new acute process is noted. Impression: No change.
--- NOTE | 2016-09-12 10:52 | Progress Note ---
Assessment and Plan - Patient Problems (1) Respiratory failure Current Visit: Yes Status: Acute Qualifiers: Chronicity: C Respiratory failure complication: R Plan to address problem: Continue supportive care, in addition to optimal management of fluid and electrolyte balance, we will add metoprolol 25 mg every 6 hours to the regimen. Subjective Date of service: 09/12/16 Principal diagnosis: Acute Hypoxemic Hypercapnic Resp Failure; Severe Sepsis Interval history: Patient is sedated, on the vent. On telemetry, she has a mild sinus tachycardia , 102/m, with frequent complex ventricular ectopy including multiform PVCs and ventricular couplets and triplets. Blood pressure is stable at 125 systolic. Objective Vital Signs Temp Pulse Pulse Resp Resp BP Pulse Ox 09/12/16 08:29 81 31 H 09/12/16 08:03 96 H 36 H 09/12/16 08:00 99.7 F H 09/12/16 07:53 74 34 H 107/53 99 09/12/16 05:00 76 21 130/51 98 09/12/16 04:46 75 29 H 146/50 100 09/12/16 04:30 93 H 31 H 146/50 100 09/12/16 04:16 88 29 H 146/50 100 09/12/16 04:00 109 H 27 H 146/50 98 09/12/16 03:57 82 151/59 100 09/12/16 03:46 88 21 151/59 98 09/12/16 03:41 98.5 F 09/12/16 03:30 76 21 151/59 99 09/12/16 03:16 77 27 H 151/59 100 09/12/16 03:00 73 21 151/59 100 09/12/16 02:46 66 21 136/57 100 09/12/16 02:30 72 22 136/57 99 09/12/16 02:16 59 L 20 136/57 100 09/12/16 02:07 65 20 09/12/16 02:00 70 20 136/57 96 09/12/16 01:52 63 20 09/12/16 01:46 53 L 20 129/51 100 09/12/16 01:30 56 L 19 129/51 100 09/12/16 01:16 60 20 129/51 100 09/12/16 01:00 54 L 20 129/51 96 09/12/16 00:46 59 L 20 132/61 100 09/12/16 00:30 65 15 132/61 100 09/12/16 00:16 53 L 18 132/61 100 09/12/16 00:00 96 F L 55 L 16 132/61 99 09/11/16 23:46 62 20 120/51 100 09/11/16 23:30 61 13 120/51 100 09/11/16 23:16 60 20 120/51 100 09/11/16 23:00 55 L 18 120/51 97 09/11/16 22:46 50 L 20 128/55 100 09/11/16 22:30 56 L 18 128/55 100 09/11/16 22:16 49 L 20 128/55 100 09/11/16 22:00 59 L 18 128/55 99 09/11/16 21:46 65 20 126/62 100 09/11/16 21:30 57 L 21 126/62 99 09/11/16 21:16 58 L 19 126/62 100 09/11/16 21:00 64 20 126/62 98 09/11/16 20:46 67 18 134/62 100 09/11/16 20:34 65 20 134/62 100 09/11/16 20:30 65 21 134/62 100 09/11/16 20:16 66 10 L 134/62 100 09/11/16 20:00 56 L 22 134/62 97 09/11/16 19:52 98.4 F 09/11/16 19:46 65 14 127/64 100 09/11/16 19:30 58 L 18 127/64 100 09/11/16 19:16 57 L 19 127/64 100 09/11/16 19:12 59 L 20 09/11/16 19:00 58 L 22 127/64 100 09/11/16 18:59 62 21 09/11/16 18:57 60 30 H 139/58 100 09/11/16 18:46 63 22 139/58 100 09/11/16 18:30 63 20 139/58 100 09/11/16 18:16 66 20 139/58 100 09/11/16 18:00 77 24 139/58 94 09/11/16 17:46 77 25 H 133/54 100 09/11/16 17:30 70 24 133/54 98 09/11/16 17:16 65 24 132/64 99 09/11/16 17:00 72 22 132/64 95 09/11/16 16:46 55 L 25 H 133/54 100 09/11/16 16:30 54 L 65 23 33 H 133/54 100 09/11/16 16:16 62 22 133/54 100 09/11/16 16:15 63 63 30 H 30 H 133/54 100 09/11/16 16:00 57 L 23 133/54 98 09/11/16 15:56 97.4 F L 09/11/16 15:46 63 24 132/59 100 09/11/16 15:30 68 23 132/59 100 09/11/16 15:16 63 22 132/59 99 09/11/16 15:00 70 24 132/59 98 09/11/16 14:46 54 L 23 121/63 99 09/11/16 14:30 65 21 121/63 99 09/11/16 14:16 56 L 23 121/63 100 09/11/16 14:00 65 24 121/63 93 09/11/16 13:46 59 L 21 159/80 100 09/11/16 13:30 72 27 H 159/80 99 09/11/16 13:16 159/80 100 09/11/16 13:00 81 19 159/80 96 09/11/16 12:46 72 22 140/82 100 09/11/16 12:32 67 24 140/82 100 09/11/16 12:30 66 24 140/82 100 09/11/16 12:16 79 23 140/82 100 09/11/16 12:00 98.4 F 71 27 H 140/82 97 09/11/16 11:46 67 24 136/73 100 09/11/16 11:30 64 26 H 136/73 100 09/11/16 11:16 70 27 H 136/73 100 09/11/16 11:00 73 28 H 136/73 93 - Physical Examination General: Other (intubated on the vent) HEENT: Positive: PERRL, Normocephaly, Mucus Membranes Moist Neck: Positive: neck supple. Negative: JVD/HJR Cardiac: Positive: Irregularly Regular Lungs: Positive: Decreased Breath Sounds Neuro: Positive: Other (sedated, on the vent) Abdomen: Positive: Unremarkable, Soft Skin: Positive: Clear Extremities: Absent: edema - Labs and Meds CBC 09/12/16 Range/Units 05:00 WBC 12.9 H (4.5-11.0) K/mm3 RBC 2.81 L (3.65-5.03) M/mm3 Hgb 8.2 L (10.1-14.3) gm/dl Hct 25.4 L (30.3-42.9) % Plt Count 151 (140-440) K/mm3 Comprehensive Metabolic Panel 09/12/16 Range/Units 05:00 Sodium 141 (137-145) mmol/L Potassium 3.0 L (3.6-5.0) mmol/L Chloride 103.5 (98-107) mmol/L Carbon Dioxide 23 (22-30) mmol/L BUN 33 H (7-17) mg/dL Creatinine 0.5 L (0.7-1.2) mg/dL Glucose 95 (65-100) mg/dL Calcium 7.0 L (8.4-10.2) mg/dL - Allied health notes Allied health notes reviewed: RT
[2016-09-12] MEDS: KCL 20MEQ/100ML 20 MEQ/100 ML BAG IV SCH ×2 (11:00→12:00)
--- NOTE | 2016-09-12 12:11 | Progress Note ---
Assessment and Plan (1) Respiratory failure Current Visit: Yes Status: Acute Qualifiers: Chronicity: C Respiratory failure complication: R Plan to address problem: - continue daytime PSV trials as tolerated - VAP bundle addressed - continue to Wean FIO2 for O2 sats>92% - continue VTE prophylaxis (SCD's re: thrombocytopenia) - continue Stress ulcer prophylaxis (Pantoprazole) - continuing sedation vacations while watching for any obvious seizure activity - continue Lung protective strategies - will add gentle diuresis now with better BP's and stopped IVF - she needs a tracheostomy and consult placed - LTAC evaluation ongoing and family refuses to sign for tracheostomy in meantime (2) Shock Current Visit: Yes Status: Acute Plan to address problem: - Treated as septic shock secondary to HCAP - off levophed now - continue strict glycemic control - completed AB's course; trending WBC - ID following - continue stress dosed solucortef - continue midodrine for now (3) Acute on chronic diastolic (congestive) heart failure Current Visit: No Status: Acute Plan to address problem: - Documented EF 55% - resume gentle diuresis - Continue to monitoring renal function and electrolyte profile closely - continue to monitor urine output, electrolyte profile (4) Altered mental status Current Visit: Yes Status: Acute Qualifiers: Altered mental status type: unspecified Coma depth: C Coma timing: C Qualified Code(s): R41.82 - Altered mental status, unspecified Plan to address problem: - Neurology following - on keppra - weaned off ativan and will use prn now - TSH elevated and started on low dose levoxyl (5) Morbid obesity Current Visit: Yes Status: Acute Qualifiers: Obesity type: unspecified obesity type Qualified Code(s): E66.01 - Morbid ( severe) obesity due to excess calories - weight loss strategies once more stable - caloric intake per battery charger tester at this point (6) Anemia Current Visit: Yes Status: Acute Qualifiers: Anemia type: unspecified type Iron deficiency anemia type: I Vitamin B12 deficiency anemia type: V Folate deficiency anemia type: F Bone marrow failure anemia type: B Hemolytic anemia type: H Other causes of anemia: O Qualified Code(s): D64.9 - Anemia, unspecified Plan to address problem: - no more coffee grounds noted - continuing PPI therapy - increased reglan frequency - increase tube feeding sequentially q12h by 10mls/hr till goal rate (7) Status epilepticus Current Visit: Yes Status: Acute Plan to address problem: - Continue AEDs - Neurology following - no obvious clinical seizure activity (8) 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 - This could be secondary to an intra-cranial process, however unable to obtain neuro-imaging, patient's weight exceeds allowable maximum (9) Discharge planning issues Current Visit: Yes Status: Acute Plan to address problem: - Continue current care. 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 prior to any tentative withdrawal of care - son came by and signed DNR order however no concencus on hospice care / withdrawal - transfer to LTAC once bed available ..she remains critically ill on life sustaining interventions including MVS and at high risk for further deterioration including ....30' CCT Subjective Date of service: 09/12/16 Principal diagnosis: Acute Hypoxemic Hypercapnic Resp Failure; Severe Sepsis Interval history: Seen and examined at bedside; 24 hour events reviewed; nursing and respiratory care staff consulted; no adverse overnight events reported to me; resting peacefully; AMS is persistent; opens eyes but not to name calling; no new issues otherwise and tolerating trickle feeding Objective Vital Signs - 12hr 09/12/16 09/12/16 09/12/16 00:16 00:30 00:46 Temperature Pulse Rate 53 L 65 59 L Pulse Rate [ Anterior Bilateral Throughout] Respiratory 18 15 20 Rate Respiratory Rate [Anterior Bilateral Throughout] Blood Pressure 132/61 132/61 132/61 O2 Sat by Pulse 100 100 100 Oximetry 09/12/16 09/12/16 09/12/16 01:00 01:16 01:30 Temperature Pulse Rate 54 L 60 56 L Pulse Rate [ Anterior Bilateral Throughout] Respiratory 20 20 19 Rate Respiratory Rate [Anterior Bilateral Throughout] Blood Pressure 129/51 129/51 129/51 O2 Sat by Pulse 96 100 100 Oximetry 09/12/16 09/12/16 09/12/16 01:46 01:52 02:00 Temperature Pulse Rate 53 L 70 Pulse Rate [ 63 Anterior Bilateral Throughout] Respiratory 20 20 Rate Respiratory 20 Rate [Anterior Bilateral Throughout] Blood Pressure 129/51 136/57 O2 Sat by Pulse 100 96 Oximetry 09/12/16 09/12/16 09/12/16 02:07 02:16 02:30 Temperature Pulse Rate 59 L 72 Pulse Rate [ 65 Anterior Bilateral Throughout] Respiratory 20 22 Rate Respiratory 20 Rate [Anterior Bilateral Throughout] Blood Pressure 136/57 136/57 O2 Sat by Pulse 100 99 Oximetry 09/12/16 09/12/16 09/12/16 02:46 03:00 03:16 Temperature Pulse Rate 66 73 77 Pulse Rate [ Anterior Bilateral Throughout] Respiratory 21 21 27 H Rate Respiratory Rate [Anterior Bilateral Throughout] Blood Pressure 136/57 151/59 151/59 O2 Sat by Pulse 100 100 100 Oximetry 09/12/16 09/12/16 09/12/16 03:30 03:41 03:46 Temperature 98.5 F Pulse Rate 76 88 Pulse Rate [ Anterior Bilateral Throughout] Respiratory 21 21 Rate Respiratory Rate [Anterior Bilateral Throughout] Blood Pressure 151/59 151/59 O2 Sat by Pulse 99 98 Oximetry 09/12/16 09/12/16 09/12/16 03:57 04:00 04:16 Temperature Pulse Rate 82 109 H 88 Pulse Rate [ Anterior Bilateral Throughout] Respiratory 27 H 29 H Rate Respiratory Rate [Anterior Bilateral Throughout] Blood Pressure 151/59 146/50 146/50 O2 Sat by Pulse 100 98 100 Oximetry 09/12/16 09/12/16 09/12/16 04:30 04:46 05:00 Temperature Pulse Rate 93 H 75 76 Pulse Rate [ Anterior Bilateral Throughout] Respiratory 31 H 29 H 21 Rate Respiratory Rate [Anterior Bilateral Throughout] Blood Pressure 146/50 146/50 130/51 O2 Sat by Pulse 100 100 98 Oximetry 09/12/16 09/12/16 09/12/16 05:16 05:30 05:46 Temperature Pulse Rate 93 H 87 72 Pulse Rate [ Anterior Bilateral Throughout] Respiratory 21 27 H 27 H Rate Respiratory Rate [Anterior Bilateral Throughout] Blood Pressure 130/51 130/51 130/51 O2 Sat by Pulse 100 100 100 Oximetry 09/12/16 09/12/16 09/12/16 06:00 06:16 06:30 Temperature Pulse Rate 81 85 76 Pulse Rate [ Anterior Bilateral Throughout] Respiratory 28 H 28 H 26 H Rate Respiratory Rate [Anterior Bilateral Throughout] Blood Pressure 130/51 118/41 118/41 O2 Sat by Pulse 95 97 100 Oximetry 09/12/16 09/12/16 09/12/16 06:46 07:00 07:16 Temperature Pulse Rate 89 113 H 81 Pulse Rate [ Anterior Bilateral Throughout] Respiratory 27 H 27 H 22 Rate Respiratory Rate [Anterior Bilateral Throughout] Blood Pressure 118/41 107/53 107/53 O2 Sat by Pulse 100 94 99 Oximetry 09/12/16 09/12/16 09/12/16 07:30 07:46 07:53 Temperature Pulse Rate 77 81 74 Pulse Rate [ Anterior Bilateral Throughout] Respiratory 23 27 H 34 H Rate Respiratory Rate [Anterior Bilateral Throughout] Blood Pressure 107/53 107/53 107/53 O2 Sat by Pulse 99 99 99 Oximetry 09/12/16 09/12/16 09/12/16 08:00 08:03 08:16 Temperature 99.7 F H Pulse Rate 70 82 Pulse Rate [ 96 H Anterior Bilateral Throughout] Respiratory 33 H 39 H Rate Respiratory 36 H Rate [Anterior Bilateral Throughout] Blood Pressure 115/32 115/32 O2 Sat by Pulse 98 99 Oximetry 09/12/16 09/12/16 09/12/16 08:29 08:30 08:46 Temperature Pulse Rate 85 103 H Pulse Rate [ 81 Anterior Bilateral Throughout] Respiratory 35 H 41 H Rate Respiratory 31 H Rate [Anterior Bilateral Throughout] Blood Pressure 115/32 115/32 O2 Sat by Pulse 100 99 Oximetry 09/12/16 09/12/16 09/12/16 09:00 09:16 09:30 Temperature Pulse Rate 96 H 96 H 114 H Pulse Rate [ Anterior Bilateral Throughout] Respiratory 34 H 36 H 31 H Rate Respiratory Rate [Anterior Bilateral Throughout] Blood Pressure 123/42 123/42 123/42 O2 Sat by Pulse 88 99 99 Oximetry 09/12/16 09/12/16 09/12/16 09:46 10:00 10:16 Temperature Pulse Rate 103 H 87 90 Pulse Rate [ Anterior Bilateral Throughout] Respiratory 39 H 35 H 37 H Rate Respiratory Rate [Anterior Bilateral Throughout] Blood Pressure 123/42 100/39 100/39 O2 Sat by Pulse 99 93 100 Oximetry 09/12/16 09/12/16 09/12/16 10:30 10:46 11:00 Temperature Pulse Rate 100 H 83 92 H Pulse Rate [ Anterior Bilateral Throughout] Respiratory 25 H 29 H 35 H Rate Respiratory Rate [Anterior Bilateral Throughout] Blood Pressure 100/39 114/29 O2 Sat by Pulse 99 98 95 Oximetry 09/12/16 09/12/16 11:16 11:44 Temperature Pulse Rate 107 H 118 H Pulse Rate [ Anterior Bilateral Throughout] Respiratory 37 H 33 H Rate Respiratory Rate [Anterior Bilateral Throughout] Blood Pressure 114/29 114/29 O2 Sat by Pulse 93 99 Oximetry Constitutional: no acute distress, other (lethargic) Eyes: non-icteric ENT: oropharynx moist Neck: supple, no lymphadenopathy Effort: mildly labored Ascultation: Bilateral: diminished breath sounds (bases), rales Cardiovascular: regular rate and rhythm Gastrointestinal: hypoactive bowel sounds, soft, non-tender, non-distended Integumentary: normal Extremities: no cyanosis, pulses normal, no ischemia or petechiae, edema (1++) Neurologic: unable to assess, other (lethargic) Psychiatric: other (sedated) CBC and BMP: 09/12/16 05:00 09/12/16 05:00 ABG, PT/INR, D-dimer: ABG POC ABG pH 7.454 (7.35-7.45) H 09/09/16 12:33 POC ABG pCO2 38.4 (35-45) 09/09/16 12:33 POC ABG pO2 75 (80-105) L 09/09/16 12:33 POC ABG HCO3 27.0 09/09/16 12:33 POC ABG Total CO2 28 09/09/16 12:33 POC ABG O2 Sat 96 09/09/16 12:33 PT/INR, D-dimer PT 13.8 Sec. (12.2-14.9) 09/10/16 05:10 INR 1.07 (0.87-1.13) 09/10/16 05:10 Abnormal lab findings: Abnormal Labs 08/29/16 08/30/16 08/30/16 21:59 00:16 05:39 WBC RBC Hgb Hct MCH MCHC RDW Plt Count Seg Neutrophils % Seg Neuts % (Manual) Nucleated RBC % Seg Neutrophils # Seg Neutrophils # Man PT INR POC ABG pH POC ABG pCO2 POC ABG pO2 Sodium Potassium Chloride Carbon Dioxide BUN Creatinine Glucose POC Glucose 106 H 128 H Lactic Acid Calcium Total Bilirubin AST ALT Alkaline Phosphatase Ammonia Troponin T C-Reactive Protein Total Protein Albumin Prealbumin 0.120 L TSH Crossmatch 08/30/16 08/30/16 08/30/16 10:30 10:30 11:12 WBC 11.1 H RBC 3.16 L Hgb 8.7 L Hct 29.9 L MCH MCHC 29 L RDW 25.0 H Plt Count Seg Neutrophils % 78.6 H Seg Neuts % (Manual) Nucleated RBC % Seg Neutrophils # 8.7 H Seg Neutrophils # Man PT INR POC ABG pH POC ABG pCO2 POC ABG pO2 Sodium 135 L Potassium Chloride Carbon Dioxide 20 L BUN Creatinine 1.5 H Glucose 148 H POC Glucose 142 H Lactic Acid Calcium 7.2 L Total Bilirubin 1.30 H AST 143 H ALT Alkaline Phosphatase 392 H Ammonia Troponin T C-Reactive Protein Total Protein 6.1 L Albumin 1.2 L Prealbumin TSH Crossmatch 08/30/16 08/30/16 08/30/16 17:41 18:03 18:18 WBC RBC Hgb Hct MCH MCHC RDW Plt Count Seg Neutrophils % Seg Neuts % (Manual) Nucleated RBC % Seg Neutrophils # Seg Neutrophils # Man PT INR POC ABG pH 7.316 L POC ABG pCO2 POC ABG pO2 44 L 59 L Sodium Potassium Chloride Carbon Dioxide BUN Creatinine Glucose POC Glucose 150 H Lactic Acid Calcium Total Bilirubin AST ALT Alkaline Phosphatase Ammonia Troponin T C-Reactive Protein Total Protein Albumin Prealbumin TSH Crossmatch 08/30/16 08/30/16 08/31/16 22:20 22:20 00:11 WBC RBC Hgb Hct MCH MCHC RDW Plt Count Seg Neutrophils % Seg Neuts % (Manual) Nucleated RBC % Seg Neutrophils # Seg Neutrophils # Man PT INR POC ABG pH POC ABG pCO2 POC ABG pO2 Sodium Potassium Chloride Carbon Dioxide BUN Creatinine Glucose POC Glucose 133 H Lactic Acid 2.30 H* Calcium Total Bilirubin AST ALT Alkaline Phosphatase Ammonia Troponin T C-Reactive Protein 10.20 H Total Protein Albumin Prealbumin TSH Crossmatch 08/31/16 08/31/16 08/31/16 04:20 04:20 04:20 WBC 18.3 H RBC 3.19 L Hgb 8.8 L Hct 30.0 L MCH 27 L MCHC 29 L RDW 23.9 H Plt Count Seg Neutrophils % Seg Neuts % (Manual) Nucleated RBC % Seg Neutrophils # Seg Neutrophils # Man PT 16.8 H INR 1.37 H POC ABG pH POC ABG pCO2 POC ABG pO2 Sodium 136 L Potassium Chloride Carbon Dioxide 19 L BUN Creatinine 1.5 H Glucose 125 H POC Glucose Lactic Acid Calcium 7.0 L Total Bilirubin 1.50 H AST 131 H ALT Alkaline Phosphatase 431 H Ammonia Troponin T C-Reactive Protein Total Protein 6.2 L Albumin 1.2 L Prealbumin TSH Crossmatch 08/31/16 08/31/16 08/31/16 04:20 05:22 05:24 WBC RBC Hgb Hct MCH MCHC RDW Plt Count Seg Neutrophils % Seg Neuts % (Manual) Nucleated RBC % Seg Neutrophils # Seg Neutrophils # Man PT INR POC ABG pH POC ABG pCO2 POC ABG pO2 142 H Sodium Potassium Chloride Carbon Dioxide BUN Creatinine Glucose POC Glucose 123 H Lactic Acid Calcium Total Bilirubin AST ALT Alkaline Phosphatase Ammonia 70.0 H Troponin T C-Reactive Protein Total Protein Albumin Prealbumin TSH Crossmatch 08/31/16 08/31/16 08/31/16 12:10 15:45 17:38 WBC RBC Hgb Hct MCH MCHC RDW Plt Count Seg Neutrophils % Seg Neuts % (Manual) Nucleated RBC % Seg Neutrophils # Seg Neutrophils # Man PT INR POC ABG pH POC ABG pCO2 POC ABG pO2 Sodium 136 L Potassium Chloride Carbon Dioxide 21 L BUN Creatinine 1.5 H Glucose 160 H POC Glucose 147 H 151 H Lactic Acid Calcium 6.9 L Total Bilirubin AST ALT Alkaline Phosphatase Ammonia Troponin T 0.109 H* D C-Reactive Protein Total Protein Albumin Prealbumin TSH Crossmatch 09/01/16 09/01/16 09/01/16 00:09 04:00 04:00 WBC 14.8 H RBC 2.89 L Hgb 7.8 L Hct 27.2 L MCH 27 L MCHC 29 L RDW 24.4 H Plt Count Seg Neutrophils % Seg Neuts % (Manual) Nucleated RBC % Seg Neutrophils # Seg Neutrophils # Man PT 18.2 H INR 1.51 H POC ABG pH POC ABG pCO2 POC ABG pO2 Sodium Potassium Chloride Carbon Dioxide BUN Creatinine Glucose POC Glucose 192 H Lactic Acid Calcium Total Bilirubin AST ALT Alkaline Phosphatase Ammonia Troponin T C-Reactive Protein Total Protein Albumin Prealbumin TSH Crossmatch 09/01/16 09/01/16 09/01/16 04:00 05:28 11:28 WBC RBC Hgb Hct MCH MCHC RDW Plt Count Seg Neutrophils % Seg Neuts % (Manual) Nucleated RBC % Seg Neutrophils # Seg Neutrophils # Man PT INR POC ABG pH POC ABG pCO2 POC ABG pO2 Sodium Potassium Chloride Carbon Dioxide 20 L BUN Creatinine 1.6 H Glucose 183 H POC Glucose 189 H 207 H Lactic Acid Calcium 6.9 L Total Bilirubin 1.30 H AST 138 H ALT Alkaline Phosphatase 520 H Ammonia Troponin T C-Reactive Protein Total Protein 6.1 L Albumin 1.2 L Prealbumin TSH Crossmatch 09/01/16 09/01/16 09/02/16 16:56 23:49 05:00 WBC RBC Hgb Hct MCH MCHC RDW Plt Count Seg Neutrophils % Seg Neuts % (Manual) Nucleated RBC % Seg Neutrophils # Seg Neutrophils # Man PT 18.0 H INR 1.49 H POC ABG pH POC ABG pCO2 POC ABG pO2 Sodium Potassium Chloride Carbon Dioxide BUN Creatinine Glucose POC Glucose 250 H 307 H Lactic Acid Calcium Total Bilirubin AST ALT Alkaline Phosphatase Ammonia Troponin T C-Reactive Protein Total Protein Albumin Prealbumin TSH Crossmatch 09/02/16 09/02/16 09/02/16 05:00 05:00 05:45 WBC 12.3 H RBC 2.57 L Hgb 7.1 L Hct 23.4 L MCH MCHC RDW 23.9 H Plt Count Seg Neutrophils % Seg Neuts % (Manual) 72.0 H Nucleated RBC % 25.0 H Seg Neutrophils # Seg Neutrophils # Man 8.9 H PT INR POC ABG pH POC ABG pCO2 POC ABG pO2 Sodium Potassium Chloride Carbon Dioxide BUN Creatinine 1.4 H Glucose 299 H POC Glucose 327 H Lactic Acid Calcium 7.0 L Total Bilirubin AST ALT Alkaline Phosphatase Ammonia Troponin T C-Reactive Protein Total Protein Albumin Prealbumin TSH Crossmatch 09/02/16 09/02/16 09/02/16 12:22 17:22 23:24 WBC RBC Hgb Hct MCH MCHC RDW Plt Count Seg Neutrophils % Seg Neuts % (Manual) Nucleated RBC % Seg Neutrophils # Seg Neutrophils # Man PT INR POC ABG pH POC ABG pCO2 POC ABG pO2 Sodium Potassium Chloride Carbon Dioxide BUN Creatinine Glucose POC Glucose 310 H 358 H 286 H Lactic Acid Calcium Total Bilirubin AST ALT Alkaline Phosphatase Ammonia Troponin T C-Reactive Protein Total Protein Albumin Prealbumin TSH Crossmatch 09/03/16 09/03/16 09/03/16 04:10 04:10 04:10 WBC 11.8 H RBC 2.29 L Hgb 6.1 L Hct 21.0 L MCH 27 L MCHC 29 L RDW 24.1 H Plt Count Seg Neutrophils % Seg Neuts % (Manual) Nucleated RBC % Seg Neutrophils # Seg Neutrophils # Man PT 17.6 H INR 1.45 H POC ABG pH POC ABG pCO2 POC ABG pO2 Sodium Potassium Chloride Carbon Dioxide BUN Creatinine 1.4 H Glucose 301 H POC Glucose Lactic Acid Calcium 7.0 L Total Bilirubin AST ALT Alkaline Phosphatase Ammonia Troponin T C-Reactive Protein Total Protein Albumin Prealbumin TSH Crossmatch 09/03/16 09/03/16 09/03/16 05:59 11:36 17:42 WBC RBC Hgb Hct MCH MCHC RDW Plt Count Seg Neutrophils % Seg Neuts % (Manual) Nucleated RBC % Seg Neutrophils # Seg Neutrophils # Man PT INR POC ABG pH POC ABG pCO2 POC ABG pO2 Sodium Potassium Chloride Carbon Dioxide BUN Creatinine Glucose POC Glucose 351 H 285 H 259 H Lactic Acid Calcium Total Bilirubin AST ALT Alkaline Phosphatase Ammonia Troponin T C-Reactive Protein Total Protein Albumin Prealbumin TSH Crossmatch 09/03/16 09/04/16 09/04/16 23:00 04:27 05:36 WBC RBC Hgb Hct MCH MCHC RDW Plt Count Seg Neutrophils % Seg Neuts % (Manual) Nucleated RBC % Seg Neutrophils # Seg Neutrophils # Man PT INR POC ABG pH 7.544 H POC ABG pCO2 30.8 L POC ABG pO2 78 L Sodium Potassium Chloride Carbon Dioxide BUN Creatinine Glucose POC Glucose 192 H 228 H Lactic Acid Calcium Total Bilirubin AST ALT Alkaline Phosphatase Ammonia Troponin T C-Reactive Protein Total Protein Albumin Prealbumin TSH Crossmatch 09/04/16 09/04/16 09/04/16 06:37 06:37 06:39 WBC 21.0 H RBC 2.22 L Hgb 6.0 L Hct 20.1 L MCH 27 L MCHC RDW 24.3 H Plt Count Seg Neutrophils % Seg Neuts % (Manual) Nucleated RBC % Seg Neutrophils # Seg Neutrophils # Man PT 16.8 H INR 1.37 H POC ABG pH POC ABG pCO2 POC ABG pO2 Sodium Potassium Chloride Carbon Dioxide BUN Creatinine 1.4 H Glucose 201 H POC Glucose Lactic Acid Calcium 7.1 L Total Bilirubin AST ALT Alkaline Phosphatase Ammonia Troponin T C-Reactive Protein Total Protein Albumin Prealbumin TSH Crossmatch 09/04/16 09/04/16 09/04/16 12:14 15:47 17:41 WBC RBC Hgb Hct MCH MCHC RDW Plt Count Seg Neutrophils % Seg Neuts % (Manual) Nucleated RBC % Seg Neutrophils # Seg Neutrophils # Man PT INR POC ABG pH POC ABG pCO2 POC ABG pO2 Sodium Potassium Chloride Carbon Dioxide BUN Creatinine Glucose POC Glucose 176 H 218 H Lactic Acid Calcium Total Bilirubin AST ALT Alkaline Phosphatase Ammonia Troponin T C-Reactive Protein Total Protein Albumin Prealbumin TSH Crossmatch See Detail 09/04/16 09/04/16 09/05/16 21:59 23:48 04:30 WBC RBC Hgb Hct MCH MCHC RDW Plt Count Seg Neutrophils % Seg Neuts % (Manual) Nucleated RBC % Seg Neutrophils # Seg Neutrophils # Man PT 17.2 H INR 1.41 H POC ABG pH POC ABG pCO2 POC ABG pO2 Sodium Potassium Chloride Carbon Dioxide BUN Creatinine Glucose POC Glucose 170 H 121 H Lactic Acid Calcium Total Bilirubin AST ALT Alkaline Phosphatase Ammonia Troponin T C-Reactive Protein Total Protein Albumin Prealbumin TSH Crossmatch 09/05/16 09/05/16 09/05/16 04:30 04:30 05:09 WBC 31.9 H RBC 3.11 L Hgb 8.5 L Hct 28.3 L D MCH 27 L MCHC RDW 21.0 H Plt Count Seg Neutrophils % Seg Neuts % (Manual) Nucleated RBC % Seg Neutrophils # Seg Neutrophils # Man PT INR POC ABG pH 7.226 L POC ABG pCO2 61.6 H POC ABG pO2 68 L Sodium 134 L Potassium 5.5 H Chloride 96.6 L Carbon Dioxide BUN 23 H Creatinine 1.6 H Glucose 116 H POC Glucose Lactic Acid Calcium 7.1 L Total Bilirubin AST ALT Alkaline Phosphatase Ammonia Troponin T C-Reactive Protein Total Protein Albumin Prealbumin TSH Crossmatch 09/05/16 09/05/16 09/05/16 05:33 12:08 17:32 WBC RBC Hgb Hct MCH MCHC RDW Plt Count Seg Neutrophils % Seg Neuts % (Manual) Nucleated RBC % Seg Neutrophils # Seg Neutrophils # Man PT INR POC ABG pH POC ABG pCO2 POC ABG pO2 Sodium Potassium Chloride Carbon Dioxide BUN Creatinine Glucose POC Glucose 114 H 147 H 174 H Lactic Acid Calcium Total Bilirubin AST ALT Alkaline Phosphatase Ammonia Troponin T C-Reactive Protein Total Protein Albumin Prealbumin TSH Crossmatch 09/06/16 09/06/16 09/06/16 03:30 03:30 03:30 WBC 25.4 H RBC 2.57 L Hgb 7.2 L Hct 22.8 L MCH MCHC RDW 20.9 H Plt Count 138 L Seg Neutrophils % Seg Neuts % (Manual) Nucleated RBC % Seg Neutrophils # Seg Neutrophils # Man PT 16.4 H INR 1.33 H POC ABG pH POC ABG pCO2 POC ABG pO2 Sodium Potassium Chloride Carbon Dioxide BUN 36 H Creatinine 1.9 H Glucose POC Glucose Lactic Acid Calcium 7.2 L Total Bilirubin AST ALT Alkaline Phosphatase Ammonia Troponin T C-Reactive Protein Total Protein Albumin Prealbumin TSH Crossmatch 09/06/16 09/06/16 09/06/16 11:07 12:03 14:44 WBC RBC Hgb Hct MCH MCHC RDW Plt Count Seg Neutrophils % Seg Neuts % (Manual) Nucleated RBC % Seg Neutrophils # Seg Neutrophils # Man PT INR POC ABG pH POC ABG pCO2 POC ABG pO2 Sodium Potassium Chloride Carbon Dioxide BUN Creatinine Glucose POC Glucose 61 L 55 L Lactic Acid Calcium Total Bilirubin AST ALT Alkaline Phosphatase Ammonia Troponin T 0.080 H C-Reactive Protein Total Protein Albumin Prealbumin TSH Crossmatch 09/06/16 09/06/16 09/07/16 21:05 23:53 03:36 WBC RBC Hgb Hct MCH MCHC RDW Plt Count Seg Neutrophils % Seg Neuts % (Manual) Nucleated RBC % Seg Neutrophils # Seg Neutrophils # Man PT INR POC ABG pH POC ABG pCO2 POC ABG pO2 Sodium Potassium Chloride Carbon Dioxide BUN Creatinine Glucose POC Glucose 140 H 178 H 243 H Lactic Acid Calcium Total Bilirubin AST ALT Alkaline Phosphatase Ammonia Troponin T C-Reactive Protein Total Protein Albumin Prealbumin TSH Crossmatch 09/07/16 09/07/16 09/07/16 03:42 03:42 05:04 WBC 17.3 H RBC 2.69 L Hgb 7.6 L Hct 23.8 L MCH MCHC RDW 20.5 H Plt Count 137 L Seg Neutrophils % Seg Neuts % (Manual) Nucleated RBC % Seg Neutrophils # Seg Neutrophils # Man PT INR POC ABG pH POC ABG pCO2 POC ABG pO2 Sodium Potassium 3.3 L Chloride Carbon Dioxide BUN 38 H Creatinine 1.6 H Glucose 201 H POC Glucose 241 H Lactic Acid Calcium 7.4 L Total Bilirubin AST ALT Alkaline Phosphatase Ammonia Troponin T C-Reactive Protein Total Protein Albumin Prealbumin TSH Crossmatch 09/07/16 09/07/16 09/07/16 11:46 17:41 23:18 WBC RBC Hgb Hct MCH MCHC RDW Plt Count Seg Neutrophils % Seg Neuts % (Manual) Nucleated RBC % Seg Neutrophils # Seg Neutrophils # Man PT INR POC ABG pH POC ABG pCO2 POC ABG pO2 Sodium Potassium Chloride Carbon Dioxide BUN Creatinine Glucose POC Glucose 313 H 227 H 116 H Lactic Acid Calcium Total Bilirubin AST ALT Alkaline Phosphatase Ammonia Troponin T C-Reactive Protein Total Protein Albumin Prealbumin TSH Crossmatch 09/08/16 09/08/16 09/08/16 04:00 04:00 05:15 WBC 18.4 H RBC 2.43 L Hgb 6.9 L Hct 21.5 L MCH MCHC RDW 20.5 H Plt Count 119 L Seg Neutrophils % Seg Neuts % (Manual) Nucleated RBC % Seg Neutrophils # Seg Neutrophils # Man PT INR POC ABG pH 7.458 H POC ABG pCO2 POC ABG pO2 177 H Sodium Potassium 3.5 L Chloride Carbon Dioxide BUN 37 H Creatinine 1.3 H Glucose POC Glucose Lactic Acid Calcium 7.1 L Total Bilirubin AST ALT Alkaline Phosphatase Ammonia Troponin T C-Reactive Protein Total Protein Albumin Prealbumin TSH Crossmatch 09/08/16 09/08/16 09/08/16 11:00 15:58 23:16 WBC RBC Hgb Hct MCH MCHC RDW Plt Count Seg Neutrophils % Seg Neuts % (Manual) Nucleated RBC % Seg Neutrophils # Seg Neutrophils # Man PT INR POC ABG pH POC ABG pCO2 POC ABG pO2 113 H Sodium Potassium Chloride Carbon Dioxide BUN Creatinine Glucose POC Glucose 40 L Lactic Acid Calcium Total Bilirubin AST ALT Alkaline Phosphatase Ammonia Troponin T C-Reactive Protein Total Protein Albumin Prealbumin TSH Crossmatch See Detail 09/09/16 09/09/16 09/09/16 05:02 12:33 18:10 WBC RBC Hgb Hct MCH MCHC RDW Plt Count Seg Neutrophils % Seg Neuts % (Manual) Nucleated RBC % Seg Neutrophils # Seg Neutrophils # Man PT INR POC ABG pH 7.454 H POC ABG pCO2 POC ABG pO2 75 L Sodium Potassium Chloride Carbon Dioxide BUN Creatinine Glucose POC Glucose 59 L Lactic Acid Calcium Total Bilirubin AST ALT Alkaline Phosphatase Ammonia Troponin T C-Reactive Protein Total Protein Albumin Prealbumin TSH 5.220 H Crossmatch 09/09/16 09/09/16 09/09/16 18:10 18:10 18:42 WBC 17.0 H RBC 2.90 L Hgb 8.5 L Hct 26.1 L MCH MCHC RDW 17.9 H Plt Count 126 L Seg Neutrophils % Seg Neuts % (Manual) Nucleated RBC % Seg Neutrophils # Seg Neutrophils # Man PT INR POC ABG pH POC ABG pCO2 POC ABG pO2 Sodium Potassium Chloride Carbon Dioxide BUN 36 H Creatinine Glucose 133 H POC Glucose 148 H Lactic Acid Calcium 6.9 L Total Bilirubin AST 253 H ALT 184 H Alkaline Phosphatase 729 H Ammonia Troponin T C-Reactive Protein Total Protein 5.1 L Albumin 1.7 L Prealbumin TSH Crossmatch 09/09/16 09/10/16 09/10/16 23:22 05:10 11:43 WBC RBC Hgb Hct MCH MCHC RDW Plt Count Seg Neutrophils % Seg Neuts % (Manual) Nucleated RBC % Seg Neutrophils # Seg Neutrophils # Man PT INR POC ABG pH POC ABG pCO2 POC ABG pO2 Sodium Potassium Chloride Carbon Dioxide BUN 35 H Creatinine Glucose 240 H POC Glucose 170 H 268 H Lactic Acid Calcium 6.8 L Total Bilirubin AST 226 H ALT 171 H Alkaline Phosphatase 710 H Ammonia Troponin T C-Reactive Protein Total Protein 5.2 L Albumin 1.7 L Prealbumin TSH Crossmatch 09/10/16 09/11/16 09/11/16 17:51 01:07 05:00 WBC RBC Hgb Hct MCH MCHC RDW Plt Count Seg Neutrophils % Seg Neuts % (Manual) Nucleated RBC % Seg Neutrophils # Seg Neutrophils # Man PT INR POC ABG pH POC ABG pCO2 POC ABG pO2 Sodium Potassium 2.9 L* Chloride Carbon Dioxide BUN 35 H Creatinine Glucose 274 H POC Glucose 334 H 223 H Lactic Acid Calcium 6.9 L Total Bilirubin AST 167 H ALT 145 H Alkaline Phosphatase 631 H Ammonia Troponin T C-Reactive Protein Total Protein 5.1 L Albumin 1.6 L Prealbumin TSH Crossmatch 09/11/16 09/11/16 09/11/16 05:01 12:16 17:12 WBC RBC Hgb Hct MCH MCHC RDW Plt Count Seg Neutrophils % Seg Neuts % (Manual) Nucleated RBC % Seg Neutrophils # Seg Neutrophils # Man PT INR POC ABG pH POC ABG pCO2 POC ABG pO2 Sodium Potassium Chloride Carbon Dioxide BUN Creatinine Glucose POC Glucose 305 H 219 H 171 H Lactic Acid Calcium Total Bilirubin AST ALT Alkaline Phosphatase Ammonia Troponin T C-Reactive Protein Total Protein Albumin Prealbumin TSH Crossmatch 09/11/16 09/12/16 09/12/16 23:35 03:33 05:00 WBC 12.9 H RBC 2.81 L Hgb 8.2 L Hct 25.4 L MCH MCHC RDW 17.9 H Plt Count Seg Neutrophils % Seg Neuts % (Manual) Nucleated RBC % Seg Neutrophils # Seg Neutrophils # Man PT INR POC ABG pH POC ABG pCO2 POC ABG pO2 Sodium Potassium Chloride Carbon Dioxide BUN Creatinine Glucose POC Glucose 216 H 183 H Lactic Acid Calcium Total Bilirubin AST ALT Alkaline Phosphatase Ammonia Troponin T C-Reactive Protein Total Protein Albumin Prealbumin TSH Crossmatch 09/12/16 05:00 WBC RBC Hgb Hct MCH MCHC RDW Plt Count Seg Neutrophils % Seg Neuts % (Manual) Nucleated RBC % Seg Neutrophils # Seg Neutrophils # Man PT INR POC ABG pH POC ABG pCO2 POC ABG pO2 Sodium Potassium 3.0 L Chloride Carbon Dioxide BUN 33 H Creatinine 0.5 L Glucose POC Glucose Lactic Acid Calcium 7.0 L Total Bilirubin AST ALT Alkaline Phosphatase Ammonia Troponin T C-Reactive Protein Total Protein Albumin Prealbumin TSH Crossmatch Chest x-ray: image reviewed Allied health notes reviewed: RT
[2016-09-12] MEDS: LOPRESSOR PO SCH (13:00)
[2016-09-12] MEDS: PROAMATINE PO SCH ×2 (13:19→21:53)
--- NOTE | 2016-09-12 14:48 | Progress Note ---
Assessment and Plan - Patient Problems (1) HCAP (healthcare-associated pneumonia) Current Visit: Yes Status: Acute Plan to address problem: 1. Continue empiric Cefepime and Flagyl pending identification of GNR in tracheal aspirate. 2. Follow fever clinically for now. (2) Leukocytosis, unspecified Current Visit: Yes Status: Acute Qualifiers: Leukocytosis type: L Plan to address problem: Slowly improving. Subjective Date of service: 09/12/16 Principal diagnosis: Acute Hypoxemic Hypercapnic Resp Failure; Severe Sepsis Interval history: Low-grade fever to 100.6 deg F today. Remains intubated in ICU. Objective - Constitutional Vitals: Vital Signs Temp Pulse Resp BP Pulse Ox 100.6 F H 98 H 30 H 119/39 100 09/12/16 12:00 09/12/16 14:31 09/12/16 14:31 09/12/16 14:30 09/12/16 14:30 Temperature -Last 24 Hours Temperature 100.6 F Temperature 99.7 F Temperature 98.5 F Temperature 96 F Temperature 98.4 F Temperature 97.4 F General appearance: Present: obese - EENT ENT: other (ET tube in place; FiO2 30%) - Respiratory Respiratory: bilateral: rhonchi - Cardiovascular Rhythm: irregularly irregular Extremity abnormal: edema (trace, improved) - Gastrointestinal General gastrointestinal: Present: soft, non-distended - Genitourinary Female genitourinary: other (Jose with normal-appearing urine) - Labs CBC & Chem 7: 09/12/16 05:00 09/12/16 15:15 Labs: Abnormal lab results 09/11/16 09/11/16 09/12/16 Range/Units 17:12 23:35 03:33 WBC (4.5-11.0) K/mm3 RBC (3.65-5.03) M/mm3 Hgb (10.1-14.3) gm/dl Hct (30.3-42.9) % RDW (13.2-15.2) % Potassium (3.6-5.0) mmol/L BUN (7-17) mg/dL Creatinine (0.7-1.2) mg/dL POC Glucose 171 H 216 H 183 H (70-105) Calcium (8.4-10.2) mg/dL 09/12/16 09/12/16 Range/Units 05:00 05:00 WBC 12.9 H (4.5-11.0) K/mm3 RBC 2.81 L (3.65-5.03) M/mm3 Hgb 8.2 L (10.1-14.3) gm/dl Hct 25.4 L (30.3-42.9) % RDW 17.9 H (13.2-15.2) % Potassium 3.0 L (3.6-5.0) mmol/L BUN 33 H (7-17) mg/dL Creatinine 0.5 L (0.7-1.2) mg/dL POC Glucose (70-105) Calcium 7.0 L (8.4-10.2) mg/dL Microbiology 09/09/16 19:23 Peripheral/Venous Blood Culture - Preliminary NO GROWTH AFTER 48 HOURS 09/09/16 18:10 Peripheral/Venous Blood Culture - Preliminary NO GROWTH AFTER 48 HOURS 09/09/16 13:40 Tracheal Aspirate Sputum Culture - Preliminary Gram Negative Scot 08/29/16 17:40 Peripheral/Venous Blood Culture - Final NO GROWTH AFTER 5 DAYS 08/29/16 17:45 Peripheral/Venous Blood Culture - Final NO GROWTH AFTER 5 DAYS 09/03/16 18:00 Stool Stool Occult Blood (JEANNETTE) - Final 08/29/16 15:37 Urine,Catheterized - Indwelling Catheter Urine Culture - Final NO GROWTH AFTER 48 HOURS 08/29/16 Unknown Tracheal Aspirate Sputum Culture - Final Active Medications Acetaminophen (Tylenol) 650 mg PO Q4H PRN PRN Reason: Pain MILD(1-3)/Fever >100.5/DUBOSE Albuterol (Proventil) 2.5 mg IH Q3HRT PRN PRN Reason: Shortness Of Breath Albuterol/Ipratropium (Duoneb 0.5 Mg-3 Mg/3 Ml Soln) 1 ampul IH Q6HRT KATHY Last Admin: 09/12/16 13:48 Dose: 1 ampul Lipase/Protease/Amylase (Pancreaze Dr 10,500 Unit) 1 each FEEDTUBE PRN PRN PRN Reason: For Clogged Feeding Tube Bisacodyl (Dulcolax) 10 mg OK QDAY PRN PRN Reason: Constipation unrelieved by MOM Enoxaparin Sodium (Lovenox) 40 mg SUB-Q DAILY KATHY Last Admin: 09/12/16 09:26 Dose: 40 mg Ferrous Sulfate (Ferrous Sulfate) 300 mg PO QDAY [facility] Last Admin: 09/12/16 09:26 Dose: 300 mg Folic Acid (Folvite) 1 mg PO DAILY [facility] Last Admin: 09/12/16 09:26 Dose: 1 mg Furosemide (Lasix) 20 mg IV QDAY [facility] Stop: 09/14/16 12:59 Last Admin: 09/12/16 09:33 Dose: 20 mg Hydrocortisone Sodium Succinate (Solu-Cortef) 100 mg IV Q8HR [facility] Last Admin: 09/12/16 13:19 Dose: 100 mg Hydrophilic Ointment (Vaseline Lip Therapy) 1 applic TP Q2HR PRN PRN Reason: Dry Lips Norepinephrine (Levophed Drip 4 Mg/Ns 250 Ml) 4 mg in 250 mls @ 7.5 mls/hr IV TITR KATHY; 2 MCG/MIN PRN Reason: Protocol Last Titration: 09/10/16 12:00 Dose: 0 mcg/min, 0 mls/hr Lorazepam 100 mg/ Sodium Chloride/ Miscellaneous Information 100 mls @ 2 mls/ hr IV TITR KATHY; 2 MG/HR PRN Reason: Protocol Last Titration: 09/07/16 14:03 Dose: 0 mg/hr, 0 mls/hr Cefepime HCl (Maxipime/Ns 1 Gm/100 Ml) 1 gm in 100 mls @ 200 mls/hr IV Q8H KATHY PRN Reason: Protocol Last Admin: 09/12/16 09:25 Dose: 200 mls/hr Metronidazole (Flagyl 500 Mg/100 Ml) 500 mg in 100 mls @ 100 mls/hr IV Q8H [facility] Last Admin: 09/12/16 09:27 Dose: 100 mls/hr Insulin Aspart (Novolog) 0 units SUB-Q Q6HR KATHY PRN Reason: Protocol Last Admin: 09/12/16 13:20 Dose: Not Given Insulin Detemir (Levemir) 10 units SUB-Q QHS [facility] Last Admin: 09/11/16 22:09 Dose: 10 units Lactulose (Cephulac) 20 gm PO Q6H PRN PRN Reason: Constipation Levetiracetam (Keppra) 500 mg PO BID [facility] Last Admin: 09/12/16 09:26 Dose: 500 mg Levothyroxine Sodium (Synthroid) 37.5 mcg IV DAILY [facility] Last Admin: 09/12/16 09:27 Dose: 37.5 mcg Lorazepam (Ativan) 1 mg IV Q5MIN PRN PRN Reason: Seizures Last Admin: 09/05/16 03:05 Dose: 1 mg Magnesium Hydroxide (Milk Of Magnesia) 30 ml PO Q4H PRN PRN Reason: Constipation Metoclopramide HCl (Reglan) 10 mg IV Q6H [facility] Last Admin: 09/12/16 13:18 Dose: 10 mg Metoprolol Tartrate (Lopressor) 25 mg PO Q6H KATHY Midodrine (Proamatine) 10 mg PO Q8HR [facility] Last Admin: 09/12/16 13:19 Dose: 10 mg Multi-Ingred Cream/Lotion/Oil/Oint (Artificial Tears Ophth Oint) 1 applic OU Q4HR PRN PRN Reason: Dry Eye(s) Last Admin: 09/06/16 06:39 Dose: 1 applic Ondansetron HCl (Zofran) 4 mg IV Q8H PRN PRN Reason: N/V unrelieved by Reglan Pantoprazole (Protonix) 40 mg PO QDAY [facility] Last Admin: 09/12/16 09:30 Dose: 40 mg Simple Syrup (Simple Syrup) 15 ml FEEDTUBE PRN PRN PRN Reason: Hypoglycemia Simple Syrup (Simple Syrup) 30 ml FEEDTUBE PRN PRN PRN Reason: Hypoglycemia Sodium Bicarbonate (Sodium Bicarbonate) 325 mg FEEDTUBE PRN PRN PRN Reason: For Clogged Feeding Tube - Imaging and cardiology Chest x-ray: report reviewed (stable bilateral congestion, no acute changes)
[2016-09-12] MEDS: LEVEMIR SUB-Q SCH (21:52)
[2016-09-13] MEDS: MAXIPIME/NS 1 GM/100 ML 1 GM/100 ML BAG IV SCH ×3 (00:16→14:30)
[2016-09-13] MEDS: FLAGYL 500 MG/100 ML 500 MG/100 ML BAG IV SCH ×3 (00:17→17:39)
[2016-09-13] MEDS: NOVOLOG SUB-Q SCH ×3 (00:18→19:40)
[2016-09-13] MEDS: REGLAN IV SCH ×4 (00:19→20:37)
[2016-09-13] MEDS: DUONEB 0.5 MG-3 MG/3 ML SOLN IH SCH ×4 (01:52→19:34)
[2016-09-13] MEDS: LOPRESSOR PO SCH ×5 (05:54→23:48)
[2016-09-13] MEDS: PROAMATINE PO SCH ×3 (05:55→21:55)
[2016-09-13 07:24] LABS: Hematocrit 26.7 % (30.3-42.9); Hemoglobin 8.8 gm/dl (10.1-14.3); Mean Corpuscular HGB Conc 33 % (30-34); Mean Corpuscular Hemoglobin 30 pg (28-32); Mean Corpuscular Volume 91 fl (79-97); Platelet Count 171 K/mm3 (140-440); Red Blood Count 2.93 M/mm3 (3.65-5.03); White Blood Count 10.2 K/mm3 (4.5-11.0)
[2016-09-13 07:41] LABS: Anion Gap 18 mmol/L; Blood Urea Nitrogen 29 mg/dL (7-17); Calcium 7.3 mg/dL (8.4-10.2); Carbon Dioxide 24 mmol/L (22-30); Chloride 105.2 mmol/L (98-107); Glucose 106 mg/dL (65-100); Sodium 144 mmol/L (137-145)
[2016-09-13 08:06] LABS: Potassium 2.6 mmol/L (3.6-5.0)
[2016-09-13] MEDS: KCL 10MEQ/100ML 10 MEQ/100 ML BAG IV SCH ×4 (09:12→13:45)
[2016-09-13] MEDS: SYNTHROID IV SCH (09:29)
[2016-09-13] MEDS: FERROUS SULFATE PO SCH (09:30)
[2016-09-13] MEDS: PROTONIX PO SCH (09:34)
[2016-09-13] MEDS: FOLVITE PO SCH (09:34)
[2016-09-13] MEDS: LOVENOX SUB-Q SCH (09:34)
[2016-09-13] MEDS: KEPPRA PO SCH ×2 (09:34→21:55)
[2016-09-13] MEDS: LASIX IV SCH (09:46)
--- NOTE | 2016-09-13 09:49 | Progress Note ---
Assessment and Plan - Patient Problems (1) RORY (acute kidney injury) Current Visit: No Status: Acute Plan to address problem: Acute Kidney Injury is hemodynamically mediated in the setting of hypotension / shock. Renal function has improved. Continue current treatment. Follow renal function. (2) Hypokalemia Current Visit: Yes Status: Acute Plan to address problem: Replete K. (3) Shock Current Visit: Yes Status: Acute (4) Respiratory failure Current Visit: Yes Status: Acute Qualifiers: Chronicity: C Respiratory failure complication: R Plan to address problem: On vent. (5) Altered mental status Current Visit: Yes Status: Acute Qualifiers: Altered mental status type: unspecified Coma depth: C Coma timing: C Qualified Code(s): R41.82 - Altered mental status, unspecified (6) Anemia Current Visit: Yes Status: Acute Qualifiers: Anemia type: unspecified type Iron deficiency anemia type: I Vitamin B12 deficiency anemia type: V Folate deficiency anemia type: F Bone marrow failure anemia type: B Hemolytic anemia type: H Other causes of anemia: O Qualified Code(s): D64.9 - Anemia, unspecified Subjective Date of service: 09/13/16 Principal diagnosis: Acute Hypoxemic Hypercapnic Resp Failure; Severe Sepsis Interval history: Patient remain on the vent. Objective - Vital Signs Vital signs: Vital Signs - 12hr 09/12/16 09/12/16 09/12/16 22:00 23:00 23:02 Temperature Pulse Rate 79 63 72 Pulse Rate [ Anterior Bilateral Throughout] Pulse Rate [ Anterior Left Throughout] Respiratory 26 H 23 Rate Respiratory Rate [Anterior Bilateral Throughout] Respiratory Rate [Anterior Left Throughout ] Blood Pressure 147/91 123/95 147/91 O2 Sat by Pulse 99 100 100 Oximetry 09/12/16 09/13/16 09/13/16 23:43 00:00 01:00 Temperature 98.9 F Pulse Rate 55 L 59 L Pulse Rate [ Anterior Bilateral Throughout] Pulse Rate [ Anterior Left Throughout] Respiratory 20 19 Rate Respiratory Rate [Anterior Bilateral Throughout] Respiratory Rate [Anterior Left Throughout ] Blood Pressure 139/56 147/57 O2 Sat by Pulse 100 99 Oximetry 09/13/16 09/13/16 09/13/16 02:00 03:00 03:42 Temperature 98.7 F Pulse Rate 66 60 Pulse Rate [ Anterior Bilateral Throughout] Pulse Rate [ Anterior Left Throughout] Respiratory 22 22 Rate Respiratory Rate [Anterior Bilateral Throughout] Respiratory Rate [Anterior Left Throughout ] Blood Pressure 147/57 143/82 O2 Sat by Pulse 97 98 Oximetry 09/13/16 09/13/16 09/13/16 04:00 05:00 05:54 Temperature Pulse Rate 67 64 66 Pulse Rate [ Anterior Bilateral Throughout] Pulse Rate [ Anterior Left Throughout] Respiratory 22 24 Rate Respiratory Rate [Anterior Bilateral Throughout] Respiratory Rate [Anterior Left Throughout ] Blood Pressure 157/70 161/75 161/75 O2 Sat by Pulse 100 99 Oximetry 09/13/16 09/13/16 09/13/16 06:00 07:00 07:54 Temperature 97.6 F Pulse Rate 64 71 Pulse Rate [ Anterior Bilateral Throughout] Pulse Rate [ Anterior Left Throughout] Respiratory 20 21 Rate Respiratory Rate [Anterior Bilateral Throughout] Respiratory Rate [Anterior Left Throughout ] Blood Pressure 152/74 156/82 O2 Sat by Pulse 99 100 Oximetry 09/13/16 09/13/16 09/13/16 08:00 08:09 08:23 Temperature Pulse Rate 56 L 59 L Pulse Rate [ 59 L Anterior Bilateral Throughout] Pulse Rate [ 69 Anterior Left Throughout] Respiratory 18 Rate Respiratory 22 Rate [Anterior Bilateral Throughout] Respiratory 22 Rate [Anterior Left Throughout ] Blood Pressure 161/78 168/69 O2 Sat by Pulse 100 100 Oximetry 09/13/16 08:25 Temperature Pulse Rate 68 Pulse Rate [ Anterior Bilateral Throughout] Pulse Rate [ Anterior Left Throughout] Respiratory 20 Rate Respiratory Rate [Anterior Bilateral Throughout] Respiratory Rate [Anterior Left Throughout ] Blood Pressure 168/69 O2 Sat by Pulse 97 Oximetry - General Appearance General appearance: well-developed, well-nourished, appears stated age, obese, intubated (FiO2 30%) EENT: ATNC, PERRL Neck: supple Respiratory: Present: Other (coarse breath sounds) Cardiology: S1S2, no murmurs Gastrointestinal: normoactive bowel sounds, obese Integumentary: no rash Neurologic: other (opens eyes) Musculoskeletal: other (2+ edema of both LEs ) - Lab 09/13/16 05:50 09/13/16 05:50 Most recent lab results Calcium 7.3 mg/dL (8.4-10.2) L 09/13/16 05:50 Phosphorus 3.60 mg/dL (2.5-4.5) 08/29/16 21:59 Magnesium 1.80 mg/dL (1.7-2.3) 09/13/16 05:50
--- NOTE | 2016-09-13 10:05 | Progress Note ---
Assessment and Plan - Patient Problems (1) Respiratory failure Current Visit: Yes Status: Acute Qualifiers: Chronicity: C Respiratory failure complication: R Plan to address problem: Continue supportive care, cardiac status is stable. Subjective Date of service: 09/13/16 Principal diagnosis: Acute Hypoxemic Hypercapnic Resp Failure; Severe Sepsis Interval history: Patient is sedated, on the vent. On telemetry, she has a sinus rhythm with occasional ventricular ectopy. Blood pressure is stable at 125 systolic. Objective Vital Signs Temp Pulse Pulse Pulse Resp Resp Resp 09/13/16 08:25 68 20 09/13/16 08:23 69 22 09/13/16 08:09 59 L 59 L 22 09/13/16 08:00 56 L 18 09/13/16 07:54 97.6 F 09/13/16 07:00 71 21 09/13/16 06:00 64 20 09/13/16 05:54 66 09/13/16 05:00 64 24 09/13/16 04:00 67 22 09/13/16 03:42 98.7 F 09/13/16 03:00 60 22 09/13/16 02:00 66 22 09/13/16 01:00 59 L 19 09/13/16 00:00 55 L 20 09/12/16 23:43 98.9 F 09/12/16 23:02 72 09/12/16 23:00 63 23 09/12/16 22:00 79 26 H 09/12/16 21:00 64 28 H 09/12/16 20:00 98.8 F 68 26 H 09/12/16 19:55 56 L 20 09/12/16 19:43 78 20 09/12/16 19:30 84 09/12/16 19:00 79 21 09/12/16 18:30 69 28 H 09/12/16 18:16 82 24 09/12/16 18:00 86 26 H 09/12/16 17:46 82 25 H 09/12/16 17:30 96 H 18 09/12/16 17:16 72 26 H 09/12/16 17:00 60 23 09/12/16 16:51 69 22 09/12/16 16:46 63 23 09/12/16 16:30 74 25 H 09/12/16 16:16 97 H 19 09/12/16 16:00 98.8 F 82 27 H 09/12/16 15:46 82 25 H 09/12/16 15:30 73 22 09/12/16 15:16 73 20 09/12/16 15:00 89 26 H 09/12/16 14:46 81 25 H 09/12/16 14:31 98 H 30 H 09/12/16 14:30 87 32 H 09/12/16 14:16 88 29 H 09/12/16 14:00 100 H 28 H 09/12/16 13:49 106 H 29 H 09/12/16 13:46 109 H 26 H 09/12/16 13:30 93 H 29 H 09/12/16 13:16 110 H 29 H 09/12/16 13:00 103 H 18 09/12/16 12:46 72 29 H 09/12/16 12:30 74 27 H 09/12/16 12:16 91 H 31 H 09/12/16 12:00 100.6 F H 97 H 31 H 09/12/16 11:46 96 H 33 H 09/12/16 11:44 118 H 33 H 09/12/16 11:30 139 H 33 H 09/12/16 11:16 107 H 37 H 09/12/16 11:00 92 H 35 H 09/12/16 10:46 83 29 H 09/12/16 10:30 100 H 25 H 09/12/16 10:16 90 37 H BP Pulse Ox 09/13/16 08:25 168/69 97 09/13/16 08:23 09/13/16 08:09 168/69 100 09/13/16 08:00 161/78 100 09/13/16 07:54 09/13/16 07:00 156/82 100 09/13/16 06:00 152/74 99 09/13/16 05:54 161/75 09/13/16 05:00 161/75 99 09/13/16 04:00 157/70 100 09/13/16 03:42 09/13/16 03:00 143/82 98 09/13/16 02:00 147/57 97 09/13/16 01:00 147/57 99 09/13/16 00:00 139/56 100 09/12/16 23:43 09/12/16 23:02 147/91 100 09/12/16 23:00 123/95 100 09/12/16 22:00 147/91 99 09/12/16 21:00 132/53 98 09/12/16 20:00 132/53 100 09/12/16 19:55 09/12/16 19:43 09/12/16 19:30 161/80 100 09/12/16 19:00 123/75 98 09/12/16 18:30 123/75 100 09/12/16 18:16 123/75 100 09/12/16 18:00 118/39 100 09/12/16 17:46 118/39 100 09/12/16 17:30 118/39 94 09/12/16 17:16 118/39 100 09/12/16 17:00 118/39 100 09/12/16 16:51 113/41 100 09/12/16 16:46 109/62 100 09/12/16 16:30 109/62 100 09/12/16 16:16 113/41 99 09/12/16 16:00 113/41 98 09/12/16 15:46 109/62 100 09/12/16 15:30 109/62 100 09/12/16 15:16 109/62 100 09/12/16 15:00 109/62 09/12/16 14:46 119/39 100 09/12/16 14:31 09/12/16 14:30 119/39 100 09/12/16 14:16 119/39 100 09/12/16 14:00 102/46 96 09/12/16 13:49 09/12/16 13:46 119/39 99 09/12/16 13:30 119/39 99 09/12/16 13:16 119/39 100 09/12/16 13:00 112/67 88 09/12/16 12:46 107/29 99 09/12/16 12:30 107/29 98 09/12/16 12:16 107/29 99 09/12/16 12:00 107/29 96 09/12/16 11:46 114/29 99 09/12/16 11:44 99 09/12/16 11:30 114/29 98 09/12/16 11:16 114/29 93 09/12/16 11:00 114/29 95 09/12/16 10:46 100/39 98 09/12/16 10:30 99 09/12/16 10:16 100/39 100 - Physical Examination General: Other (intubated on the vent) HEENT: Positive: PERRL, Normocephaly, Mucus Membranes Moist Neck: Positive: neck supple. Negative: JVD/HJR Cardiac: Positive: Reg Rate and Rhythm Lungs: Positive: Decreased Breath Sounds Neuro: Positive: Other (sedated, on the vent) Abdomen: Positive: Unremarkable, Soft Skin: Positive: Clear Extremities: Absent: edema - Labs and Meds CBC 09/13/16 Range/Units 05:50 WBC 10.2 (4.5-11.0) K/mm3 RBC 2.93 L (3.65-5.03) M/mm3 Hgb 8.8 L (10.1-14.3) gm/dl Hct 26.7 L (30.3-42.9) % Plt Count 171 (140-440) K/mm3 Comprehensive Metabolic Panel 09/12/16 09/13/16 Range/Units 15:15 05:50 Sodium 144 (137-145) mmol/L Potassium 3.4 L 2.6 L* D (3.6-5.0) mmol/L Chloride 105.2 (98-107) mmol/L Carbon Dioxide 24 (22-30) mmol/L BUN 29 H (7-17) mg/dL Creatinine 0.5 L (0.7-1.2) mg/dL Glucose 106 H (65-100) mg/dL Calcium 7.3 L (8.4-10.2) mg/dL - Allied health notes Allied health notes reviewed: RT
[2016-09-13] MEDS ORDERED: POTASSIUM CHLORIDE FEEDTUBE ONE ×2 (10:11→20:00)
--- NOTE | 2016-09-13 11:43 | XRay Report ---
KUB: History: Dobbhoff placement. Findings: Tip of feeding tube is noted in the proximal duodenum distal to the antrum. Impression: Findings as described.
--- NOTE | 2016-09-13 14:00 | Progress Note ---
Assessment and Plan Assessment and plan: Records obtained from ER documentation of family Patient is a 61-year-old morbidly obese female past medical history of congestive heart failure, severe protein calorie malnutrition with BMI of 1.8, functional quadriplegia, type 2 diabetes mellitus, hypertension, multiple skin breakdown between legs and thighs per history presented to the hospital via EMS after the called EMS. The patient has not been verbally responsive for about 2 days. Although tracks and appears to be aware for involvement. By history patient has had intubations in the past history appears to have been unavailable apart from what is noted above. It appears patient has been admitted to the hospital in the past for CHF and also for abdominal pain with echocardiogram at that time showing ejection fraction of 50-55%. During the past admission patient was recommended for placement but refused. On presentation patient was felt to be able to maintain airway and intubated the ER and was admitted was also felt to be in florid heart failure with hemoglobin of 7.7 on the source of bleeding and shock syndrome with systolic pressures in the 70s requiring packed red blood cell transfusion * Acute toxic metabolic encephalopathy-? Anoxic Injury * Septic shock * VENTRICULAR ECTOPY with SINUS ARRHYTHMIA- HR 125 this am * Acute on chronic diastolic congestive heart failure * Acute on chronic respiratory failure with >96 hrs on mechanical ventilation * Septic shock with hypothermia * Status epilepticus due to refractory complex partial seizures * Hypercoagulable state * Severe anemia-with precipitous drop in hemoglobin * Hypothyroidism * Mitral stenosis * Paroxysmal atrial fibrillation * Non-ST elevated NM * Acute on chronic kidney disease likely secondary to vasomotor nephropathy-POA - IMPROVED, LIKELY SECONDARY TO HYPOTENSION * Transaminitis-elevated alkaline phosphatase and AST * Severe protein calorie malnutrition albumin 1.2 * Morbid obesity BMI 81.6 * PRESSURE ULCERS-POA PLAN: * Continue supportive care * Currently on the vent aspiration precautions, STRESS ulcer phrophy, Aspiration of laxatives * Continue abx, also on Midodrine * Cotinue gentle diuresis, replace Electrolytes as needed * S/P 5 UNIT PRBC * Continue Keppra and dilantin, neuroplogy following * Cipro eyedrops for conjunctivitis medication * Continue Low dose Levoxyl * NGT for tube feed * CT head unable to obtain due to weight. We'll discuss in a.m. for possible open imaging Center to evaluate central etiology. * Conservative mangement per cardiology * A thread singer following * Continue antibiotics. Cultures revealed no growth to date. * Warfarin discontinued * Monitor his H&H * Is no neurological improvement will need a neurologic consultation * Family made the patient AND/DNR-likely dyspneic with the son also notes patient has multiple children. Coronary and sister Leanne Woody on the bedside as well as the boyfriend who we hear some of her legal . According to documentation not upset the visit February the patient was in the hospital. In the boyfriend who lives with the patient did not notify the family. Family still not agreeable to trach and PEG. LT[facility] eval is pending. My understanding only [facility] takes insurance and was still awaiting their input. * Continue Lasix, daily weights, strict ins and outs, * POOR prognosis 35 mins critical care time No family present at bedside. History Interval history: Patient seen and examined, remains intubated, not on sedation but not following commands. Hospitalist Physical - Physical exam Narrative exam: VITAL SIGNS: Reviewed. GENERAL: The patient appeared to be obese. Vital signs as documented. HEAD: No signs of head trauma. EYES: Pupils are equal. Extraocular motions intact. left conguctivital injection EARS: Hearing grossly intact. MOUTH: ET tube NECK: No adenopathy, no JVD. CHEST: Chest with decreased sounds bilaterally. No wheezes, rales, or rhonchi. CARDIAC: Regular rate and rhythm. S1 and S2, without murmurs, gallops, or rubs. VASCULAR: Lymphedema. Peripheral pulses normal and equal in all extremities. ABDOMEN: Soft, without detectable tenderness. Anasarca with edema extended to the abdominal [place] No sign of distention. No rebound or guarding, and no masses palpated. Bowel Sounds normal. MUSCULOSKELETAL: Good range of motion of all major joints. Extremities without clubbing, cyanosis or edema. NEUROLOGIC EXAM: Not following commands PSYCHIATRIC: Mood flat SKIN: multiple pressure ulcers - - Constitutional Vitals: Temp Pulse Resp BP Pulse Ox 97.3 F L 70 16 163/97 97 09/13/16 12:00 09/13/16 12:00 09/13/16 12:00 09/13/16 12:00 09/13/16 12:00 General appearance: Present: obese Results - Labs CBC & Chem 7: 09/13/16 05:50 09/13/16 05:50 Labs: Laboratory Last Values WBC 10.2 K/mm3 (4.5-11.0) 09/13/16 05:50 RBC 2.93 M/mm3 (3.65-5.03) L 09/13/16 05:50 Hgb 8.8 gm/dl (10.1-14.3) L 09/13/16 05:50 Hct 26.7 % (30.3-42.9) L 09/13/16 05:50 MCV 91 fl (79-97) 09/13/16 05:50 MCH 30 pg (28-32) 09/13/16 05:50 MCHC 33 % (30-34) 09/13/16 05:50 RDW 18.0 % (13.2-15.2) H 09/13/16 05:50 Plt Count 171 K/mm3 (140-440) 09/13/16 05:50 Lymph % (Auto) 15.6 % (13.4-35.0) 08/30/16 10:30 [place] % (Auto) 5.1 % (0.0-7.3) 08/30/16 10:30 Eos % (Auto) 0.6 % (0.0-4.3) 08/30/16 10:30 Baso % (Auto) 0.1 % (0.0-1.8) 08/30/16 10:30 Lymph # 1.7 K/mm3 (1.2-5.4) 08/30/16 10:30 [place] # 0.6 K/mm3 (0.0-0.8) 08/30/16 10:30 Eos # 0.1 K/mm3 (0.0-0.4) 08/30/16 10:30 Baso # 0.0 K/mm3 (0.0-0.1) 08/30/16 10:30 Add Manual Diff Complete 09/02/16 05:00 Total Counted 100 09/02/16 05:00 Seg Neutrophils % 78.6 % (40.0-70.0) H 08/30/16 10:30 Seg Neuts % (Manual) 72.0 % (40.0-70.0) H 09/02/16 05:00 Band Neutrophils % 9.0 % 09/02/16 05:00 Lymphocytes % (Manual) 15.0 % (13.4-35.0) 09/02/16 05:00 Reactive Lymphs % (Man) 0 % 09/02/16 05:00 Monocytes % (Manual) 4.0 % (0.0-7.3) 09/02/16 05:00 Eosinophils % (Manual) 0 % (0.0-4.3) 09/02/16 05:00 Basophils % (Manual) 0 % (0.0-1.8) 09/02/16 05:00 Metamyelocytes % 0 % 09/02/16 05:00 Myelocytes % 0 % 09/02/16 05:00 Promyelocytes % 0 % 09/02/16 05:00 Blast Cells % 0 % 09/02/16 05:00 Nucleated RBC % 25.0 % (0.0-0.9) H 09/02/16 05:00 Seg Neutrophils # 8.7 K/mm3 (1.8-7.7) H 08/30/16 10:30 Seg Neutrophils # Man 8.9 K/mm3 (1.8-7.7) H 09/02/16 05:00 Band Neutrophils # 1.1 K/mm3 09/02/16 05:00 Lymphocytes # (Manual) 1.8 K/mm3 (1.2-5.4) 09/02/16 05:00 Abs React Lymphs (Man) 0.0 K/mm3 09/02/16 05:00 Monocytes # (Manual) 0.5 K/mm3 (0.0-0.8) 09/02/16 05:00 Eosinophils # (Manual) 0.0 K/mm3 (0.0-0.4) 09/02/16 05:00 Basophils # (Manual) 0.0 K/mm3 (0.0-0.1) 09/02/16 05:00 Metamyelocytes # 0.0 K/mm3 09/02/16 05:00 Myelocytes # 0.0 K/mm3 09/02/16 05:00 Promyelocytes # 0.0 K/mm3 09/02/16 05:00 Blast Cells # 0.0 K/mm3 09/02/16 05:00 WBC Morphology Not Reportable 09/02/16 05:00 Hypersegmented Neuts Not Reportable 09/02/16 05:00 Hyposegmented Neuts Not Reportable 09/02/16 05:00 Hypogranular Neuts Not Reportable 09/02/16 05:00 Smudge Cells Not Reportable 09/02/16 05:00 Toxic Granulation Not Reportable 09/02/16 05:00 Toxic Vacuolation Not Reportable 09/02/16 05:00 Dohle Bodies Not Reportable 09/02/16 05:00 Pelger-Huet Anomaly Not Reportable 09/02/16 05:00 Feli Rods Not Reportable 09/02/16 05:00 Platelet Estimate Consistent w auto 09/02/16 05:00 Clumped Platelets Not Reportable 09/02/16 05:00 Plt Clumps, EDTA Not Reportable 09/02/16 05:00 Large Platelets Not Reportable 09/02/16 05:00 Giant Platelets Not Reportable 09/02/16 05:00 Platelet Satelliting Not Reportable 09/02/16 05:00 Plt Morphology Comment Not Reportable 09/02/16 05:00 RBC Morphology Not Reportable 09/02/16 05:00 Dimorphic RBCs Not Reportable 09/02/16 05:00 Polychromasia Rare 09/02/16 05:00 Hypochromasia Not Reportable 09/02/16 05:00 Poikilocytosis Not Reportable 09/02/16 05:00 Anisocytosis 1+ 09/02/16 05:00 Microcytosis Not Reportable 09/02/16 05:00 Macrocytosis 1+ 09/02/16 05:00 Spherocytes Not Reportable 09/02/16 05:00 Pappenheimer Bodies Not Reportable 09/02/16 05:00 Sickle Cells Not Reportable 09/02/16 05:00 Target Cells Not Reportable 09/02/16 05:00 Tear Drop Cells Not Reportable 09/02/16 05:00 Ovalocytes Not Reportable 09/02/16 05:00 Helmet Cells Not Reportable 09/02/16 05:00 [place] Bodies Not Reportable 09/02/16 05:00 [place] Rings Not Reportable 09/02/16 05:00 [place] Cells Not Reportable 09/02/16 05:00 Bite Cells Not Reportable 09/02/16 05:00 Crenated Cell Not Reportable 09/02/16 05:00 Elliptocytes Not Reportable 09/02/16 05:00 Acanthocytes (Spur) Not Reportable 09/02/16 05:00 Rouleaux Not Reportable 09/02/16 05:00 Hemoglobin C Crystals Not Reportable 09/02/16 05:00 Schistocytes Not Reportable 09/02/16 05:00 Malaria parasites Not Reportable 09/02/16 05:00 Manny Bodies Not Reportable 09/02/16 05:00 Hem Pathologist Commnt No 09/02/16 05:00 PT 13.8 Sec. (12.2-14.9) 09/10/16 05:10 INR 1.07 (0.87-1.13) 09/10/16 05:10 APTT 29.5 Sec. (24.2-36.6) 08/29/16 17:40 POC ABG pH 7.454 (7.35-7.45) H 09/09/16 12:33 POC ABG pCO2 38.4 (35-45) 09/09/16 12:33 POC ABG pO2 75 (80-105) L 09/09/16 12:33 POC ABG HCO3 27.0 09/09/16 12:33 POC ABG Total CO2 28 09/09/16 12:33 POC ABG O2 Sat 96 09/09/16 12:33 POC ABG Base Excess 3 09/09/16 12:33 VBG pH 7.366 (7.320-7.420) 08/29/16 17:40 FiO2 30 % 09/09/16 12:33 Sodium 144 mmol/L (137-145) 09/13/16 05:50 Potassium 2.6 mmol/L (3.6-5.0) L* D 09/13/16 05:50 Chloride 105.2 mmol/L (98-107) 09/13/16 05:50 Carbon Dioxide 24 mmol/L (22-30) 09/13/16 05:50 Anion Gap 18 mmol/L 09/13/16 05:50 BUN 29 mg/dL (7-17) H 09/13/16 05:50 Creatinine 0.5 mg/dL (0.7-1.2) L 09/13/16 05:50 Estimated GFR > 60 ml/min 09/13/16 05:50 BUN/Creatinine Ratio 58.00 % 09/13/16 05:50 Glucose 106 mg/dL (65-100) H 09/13/16 05:50 POC Glucose 129 (70-105) H 09/13/16 11:43 Lactic Acid 1.90 mmol/L (0.7-2.0) 09/07/16 15:00 Calcium 7.3 mg/dL (8.4-10.2) L 09/13/16 05:50 Phosphorus 3.60 mg/dL (2.5-4.5) 08/29/16 21:59 Magnesium 1.80 mg/dL (1.7-2.3) 09/13/16 05:50 Total Bilirubin 0.70 mg/dL (0.1-1.2) 09/11/16 05:00 AST 167 units/L (5-40) H 09/11/16 05:00 ALT 145 units/L (7-56) H 09/11/16 05:00 Alkaline Phosphatase 631 units/L (35-129) H 09/11/16 05:00 Ammonia 39.0 umol/L (25-60) 09/07/16 15:00 Total Creatine Kinase 36 units/L (30-135) 09/06/16 11:07 CK-MB (CK-2) < 1.0 ng/mL (0.0-4.0) 09/06/16 11:07 CK-MB (CK-2) Rel Index 2.7 (0-4) 09/06/16 11:07 Troponin T 0.080 ng/mL (0.00-0.029) H 09/06/16 11:07 C-Reactive Protein 10.20 mg/dL (0.00-1.30) H 08/30/16 22:20 NT-Pro-B Natriuret Pep 1712 pg/mL (0-900) H 08/29/16 17:40 Total Protein 5.1 g/dL (6.3-8.2) L 09/11/16 05:00 Albumin 1.6 g/dL (3.9-5) L 09/11/16 05:00 Albumin/Globulin Ratio 0.5 % 09/11/16 05:00 Prealbumin 0.120 g/L (0.200-0.400) L 08/29/16 21:59 Triglycerides 225 mg/dL (2-149) H 08/29/16 17:40 Cholesterol 130 mg/dL (50-199) 08/29/16 17:40 LDL Cholesterol Direct 82 mg/dL (50-130) 08/29/16 17:40 HDL Cholesterol 3 mg/dL (40-59) L 08/29/16 17:40 Cholesterol/HDL Ratio 43.33 % 08/29/16 17:40 TSH 5.220 mlU/mL (0.270-4.200) H 09/09/16 18:10 Urine Color Yellow (Yellow) 08/31/16 15:37 Urine Turbidity Clear (Clear) 08/31/16 15:37 Urine pH 5.0 (5.0-7.0) 08/31/16 15:37 Ur Specific [place] 1.009 (1.003-1.030) 08/31/16 15:37 Urine Protein <15 mg/dl mg/dL (Negative) 08/31/16 15:37 Urine Glucose (UA) Neg mg/dL (Negative) 08/31/16 15:37 Urine Ketones Neg mg/dL (Negative) 08/31/16 15:37 Urine Blood Sm (Negative) 08/31/16 15:37 Urine Nitrite Neg (Negative) 08/31/16 15:37 Urine Bilirubin Neg (Negative) 08/31/16 15:37 Urine Urobilinogen < 2.0 mg/dL (<2.0) 08/31/16 15:37 Ur Leukocyte Esterase Sm (Negative) 08/31/16 15:37 Urine WBC (Auto) 3.0 /HPF (0.0-6.0) 08/31/16 15:37 Urine RBC (Auto) 1.0 /HPF (0.0-6.0) 08/31/16 15:37 U Epithel Cells (Auto) < 1.0 /HPF (0-13.0) 08/31/16 15:37 Urine Bacteria (Auto) 1+ /HPF (Negative) 08/31/16 15:37 Hyaline Casts 5 /LPF 08/31/16 15:37 Urine Mucus Few /HPF 08/31/16 15:37 Blood Type O POSITIVE 09/08/16 11:00 Antibody Screen TNR 09/08/16 11:00 PATRICK Antibody Screen Negative 09/08/16 11:00 Crossmatch See Detail 09/08/16 11:00
[2016-09-13] MEDS ORDERED: GENTAMICIN 0.3% OS ONE (16:00)
--- NOTE | 2016-09-13 19:33 | Progress Note ---
Assessment and Plan Patient not responding to verbal stimuli. Patient presently resting on Assist control rate 20, tidal volume 400, PEEP 5 and FIO2 30%.. i SPENT DIRECT CRITICAL CARE TIME OF 40 MINUTES ON THIS PATIENT. - Patient Problems (1) Acute respiratory failure Current Visit: Yes Status: Acute Qualifiers: Respiratory failure complication: R Plan to address problem: ON MECHANICAL VENTILATION ON ASSIST CONTROL RATE 20, TIDAL VOLUME 400, FIO2 30%, PEEP 5, ALBUTEROL/ATROVENT AEROSOL TREATMENTS Q 6 HOURS. CONTINUE S/C LOVENOX. CONTINUE PROTONIX. (2) Altered mental status Current Visit: Yes Status: Acute Qualifiers: Altered mental status type: unspecified Coma depth: C Coma timing: C Qualified Code(s): R41.82 - Altered mental status, unspecified Plan to address problem: mANAGEMENT PER PRIMARY CARE. (3) HCAP (healthcare-associated pneumonia) Current Visit: Yes Status: Acute Plan to address problem: PATIENT IS ON CEFEPIME AND METRANIDAZOLE (4) Morbid obesity Current Visit: Yes Status: Acute Qualifiers: Obesity type: unspecified obesity type Qualified Code(s): E66.01 - Morbid ( severe) obesity due to excess calories Plan to address problem: DIETARY CONSULTATION FOR WEIGHT REDUCTION DIET. Subjective Date of service: 09/13/16 Principal diagnosis: Acute Hypoxemic Hypercapnic Resp Failure; Severe Sepsis Interval history: Patient not responding to verbal stimuli. Patient presently resting on Assist control rate 20, tidal volume 400, PEEP 5 and FIO2 30%. Objective Vital Signs - 12hr 09/13/16 09/13/16 09/13/16 07:54 08:00 08:09 Temperature 97.6 F Pulse Rate 56 L 59 L Pulse Rate [ 59 L Anterior Bilateral Throughout] Pulse Rate [ Anterior Left Throughout] Respiratory 18 Rate Respiratory 22 Rate [Anterior Bilateral Throughout] Respiratory Rate [Anterior Left Throughout ] Blood Pressure 161/78 168/69 O2 Sat by Pulse 100 100 Oximetry 09/13/16 09/13/16 09/13/16 08:23 08:25 09:00 Temperature Pulse Rate 68 58 L Pulse Rate [ Anterior Bilateral Throughout] Pulse Rate [ 69 Anterior Left Throughout] Respiratory 20 19 Rate Respiratory Rate [Anterior Bilateral Throughout] Respiratory 22 Rate [Anterior Left Throughout ] Blood Pressure 168/69 136/74 O2 Sat by Pulse 97 89 Oximetry 09/13/16 09/13/16 09/13/16 10:00 11:00 11:52 Temperature Pulse Rate 61 67 79 Pulse Rate [ Anterior Bilateral Throughout] Pulse Rate [ Anterior Left Throughout] Respiratory 17 18 18 Rate Respiratory Rate [Anterior Bilateral Throughout] Respiratory Rate [Anterior Left Throughout ] Blood Pressure 136/74 163/97 O2 Sat by Pulse 97 98 100 Oximetry 09/13/16 09/13/16 09/13/16 12:00 13:00 14:00 Temperature 97.3 F L Pulse Rate 70 73 78 Pulse Rate [ Anterior Bilateral Throughout] Pulse Rate [ Anterior Left Throughout] Respiratory 16 17 17 Rate Respiratory Rate [Anterior Bilateral Throughout] Respiratory Rate [Anterior Left Throughout ] Blood Pressure 163/97 154/73 154/73 O2 Sat by Pulse 99 100 87 Oximetry 09/13/16 09/13/16 09/13/16 15:00 15:50 16:00 Temperature 97.3 F L Pulse Rate 62 65 64 Pulse Rate [ Anterior Bilateral Throughout] Pulse Rate [ Anterior Left Throughout] Respiratory 19 21 16 Rate Respiratory Rate [Anterior Bilateral Throughout] Respiratory Rate [Anterior Left Throughout ] Blood Pressure 140/116 140/116 139/107 O2 Sat by Pulse 97 100 100 Oximetry 09/13/16 09/13/16 09/13/16 16:45 16:59 17:00 Temperature Pulse Rate 68 Pulse Rate [ 68 64 Anterior Bilateral Throughout] Pulse Rate [ Anterior Left Throughout] Respiratory 20 Rate Respiratory 19 21 Rate [Anterior Bilateral Throughout] Respiratory Rate [Anterior Left Throughout ] Blood Pressure 140/98 O2 Sat by Pulse 100 Oximetry 09/13/16 09/13/16 18:00 19:00 Temperature Pulse Rate 65 67 Pulse Rate [ Anterior Bilateral Throughout] Pulse Rate [ Anterior Left Throughout] Respiratory 20 19 Rate Respiratory Rate [Anterior Bilateral Throughout] Respiratory Rate [Anterior Left Throughout ] Blood Pressure 140/98 115/38 O2 Sat by Pulse 36 L 36 L Oximetry Constitutional: no acute distress, asleep, other (lethargic) Eyes: non-icteric ENT: oropharynx moist Neck: supple, no lymphadenopathy Effort: mildly labored Ascultation: Bilateral: diminished breath sounds (bases), rales Cardiovascular: regular rate and rhythm Gastrointestinal: hypoactive bowel sounds, soft, non-tender, non-distended Integumentary: normal Extremities: no cyanosis, pulses normal, no ischemia or petechiae, edema (1++) Neurologic: unable to assess, other (lethargic) Psychiatric: other (sedated) CBC and BMP: 09/13/16 05:50 09/13/16 15:07 ABG, PT/INR, D-dimer: ABG POC ABG pH 7.454 (7.35-7.45) H 09/09/16 12:33 POC ABG pCO2 38.4 (35-45) 09/09/16 12:33 POC ABG pO2 75 (80-105) L 09/09/16 12:33 POC ABG HCO3 27.0 09/09/16 12:33 POC ABG Total CO2 28 09/09/16 12:33 POC ABG O2 Sat 96 09/09/16 12:33 PT/INR, D-dimer PT 13.8 Sec. (12.2-14.9) 09/10/16 05:10 INR 1.07 (0.87-1.13) 09/10/16 05:10 Abnormal lab findings: Abnormal Labs 08/29/16 08/30/16 08/30/16 21:59 00:16 05:39 WBC RBC Hgb Hct MCH MCHC RDW Plt Count Seg Neutrophils % Seg Neuts % (Manual) Nucleated RBC % Seg Neutrophils # Seg Neutrophils # Man PT INR POC ABG pH POC ABG pCO2 POC ABG pO2 Sodium Potassium Chloride Carbon Dioxide BUN Creatinine Glucose POC Glucose 106 H 128 H Lactic Acid Calcium Total Bilirubin AST ALT Alkaline Phosphatase Ammonia Troponin T C-Reactive Protein Total Protein Albumin Prealbumin 0.120 L TSH Crossmatch 08/30/16 08/30/16 08/30/16 10:30 10:30 11:12 WBC 11.1 H RBC 3.16 L Hgb 8.7 L Hct 29.9 L MCH MCHC 29 L RDW 25.0 H Plt Count Seg Neutrophils % 78.6 H Seg Neuts % (Manual) Nucleated RBC % Seg Neutrophils # 8.7 H Seg Neutrophils # Man PT INR POC ABG pH POC ABG pCO2 POC ABG pO2 Sodium 135 L Potassium Chloride Carbon Dioxide 20 L BUN Creatinine 1.5 H Glucose 148 H POC Glucose 142 H Lactic Acid Calcium 7.2 L Total Bilirubin 1.30 H AST 143 H ALT Alkaline Phosphatase 392 H Ammonia Troponin T C-Reactive Protein Total Protein 6.1 L Albumin 1.2 L Prealbumin TSH Crossmatch 08/30/16 08/30/16 08/30/16 17:41 18:03 18:18 WBC RBC Hgb Hct MCH MCHC RDW Plt Count Seg Neutrophils % Seg Neuts % (Manual) Nucleated RBC % Seg Neutrophils # Seg Neutrophils # Man PT INR POC ABG pH 7.316 L POC ABG pCO2 POC ABG pO2 44 L 59 L Sodium Potassium Chloride Carbon Dioxide BUN Creatinine Glucose POC Glucose 150 H Lactic Acid Calcium Total Bilirubin AST ALT Alkaline Phosphatase Ammonia Troponin T C-Reactive Protein Total Protein Albumin Prealbumin TSH Crossmatch 08/30/16 08/30/16 08/31/16 22:20 22:20 00:11 WBC RBC Hgb Hct MCH MCHC RDW Plt Count Seg Neutrophils % Seg Neuts % (Manual) Nucleated RBC % Seg Neutrophils # Seg Neutrophils # Man PT INR POC ABG pH POC ABG pCO2 POC ABG pO2 Sodium Potassium Chloride Carbon Dioxide BUN Creatinine Glucose POC Glucose 133 H Lactic Acid 2.30 H* Calcium Total Bilirubin AST ALT Alkaline Phosphatase Ammonia Troponin T C-Reactive Protein 10.20 H Total Protein Albumin Prealbumin TSH Crossmatch 08/31/16 08/31/16 08/31/16 04:20 04:20 04:20 WBC 18.3 H RBC 3.19 L Hgb 8.8 L Hct 30.0 L MCH 27 L MCHC 29 L RDW 23.9 H Plt Count Seg Neutrophils % Seg Neuts % (Manual) Nucleated RBC % Seg Neutrophils # Seg Neutrophils # Man PT 16.8 H INR 1.37 H POC ABG pH POC ABG pCO2 POC ABG pO2 Sodium 136 L Potassium Chloride Carbon Dioxide 19 L BUN Creatinine 1.5 H Glucose 125 H POC Glucose Lactic Acid Calcium 7.0 L Total Bilirubin 1.50 H AST 131 H ALT Alkaline Phosphatase 431 H Ammonia Troponin T C-Reactive Protein Total Protein 6.2 L Albumin 1.2 L Prealbumin TSH Crossmatch 08/31/16 08/31/16 08/31/16 04:20 05:22 05:24 WBC RBC Hgb Hct MCH MCHC RDW Plt Count Seg Neutrophils % Seg Neuts % (Manual) Nucleated RBC % Seg Neutrophils # Seg Neutrophils # Man PT INR POC ABG pH POC ABG pCO2 POC ABG pO2 142 H Sodium Potassium Chloride Carbon Dioxide BUN Creatinine Glucose POC Glucose 123 H Lactic Acid Calcium Total Bilirubin AST ALT Alkaline Phosphatase Ammonia 70.0 H Troponin T C-Reactive Protein Total Protein Albumin Prealbumin TSH Crossmatch 08/31/16 08/31/16 08/31/16 12:10 15:45 17:38 WBC RBC Hgb Hct MCH MCHC RDW Plt Count Seg Neutrophils % Seg Neuts % (Manual) Nucleated RBC % Seg Neutrophils # Seg Neutrophils # Cristian PT INR POC ABG pH POC ABG pCO2 POC ABG pO2 Sodium 136 L Potassium Chloride Carbon Dioxide 21 L BUN Creatinine 1.5 H Glucose 160 H POC Glucose 147 H 151 H Lactic Acid Calcium 6.9 L Total Bilirubin AST ALT Alkaline Phosphatase Ammonia Troponin T 0.109 H* D C-Reactive Protein Total Protein Albumin Prealbumin TSH Crossmatch 09/01/16 09/01/16 09/01/16 00:09 04:00 04:00 WBC 14.8 H RBC 2.89 L Hgb 7.8 L Hct 27.2 L MCH 27 L MCHC 29 L RDW 24.4 H Plt Count Seg Neutrophils % Seg Neuts % (Manual) Nucleated RBC % Seg Neutrophils # Seg Neutrophils # Man PT 18.2 H INR 1.51 H POC ABG pH POC ABG pCO2 POC ABG pO2 Sodium Potassium Chloride Carbon Dioxide BUN Creatinine Glucose POC Glucose 192 H Lactic Acid Calcium Total Bilirubin AST ALT Alkaline Phosphatase Ammonia Troponin T C-Reactive Protein Total Protein Albumin Prealbumin TSH Crossmatch 09/01/16 09/01/16 09/01/16 04:00 05:28 11:28 WBC RBC Hgb Hct MCH MCHC RDW Plt Count Seg Neutrophils % Seg Neuts % (Manual) Nucleated RBC % Seg Neutrophils # Seg Neutrophils # Man PT INR POC ABG pH POC ABG pCO2 POC ABG pO2 Sodium Potassium Chloride Carbon Dioxide 20 L BUN Creatinine 1.6 H Glucose 183 H POC Glucose 189 H 207 H Lactic Acid Calcium 6.9 L Total Bilirubin 1.30 H AST 138 H ALT Alkaline Phosphatase 520 H Ammonia Troponin T C-Reactive Protein Total Protein 6.1 L Albumin 1.2 L Prealbumin TSH Crossmatch 09/01/16 09/01/16 09/02/16 16:56 23:49 05:00 WBC RBC Hgb Hct MCH MCHC RDW Plt Count Seg Neutrophils % Seg Neuts % (Manual) Nucleated RBC % Seg Neutrophils # Seg Neutrophils # Man PT 18.0 H INR 1.49 H POC ABG pH POC ABG pCO2 POC ABG pO2 Sodium Potassium Chloride Carbon Dioxide BUN Creatinine Glucose POC Glucose 250 H 307 H Lactic Acid Calcium Total Bilirubin AST ALT Alkaline Phosphatase Ammonia Troponin T C-Reactive Protein Total Protein Albumin Prealbumin TSH Crossmatch 09/02/16 09/02/16 09/02/16 05:00 05:00 05:45 WBC 12.3 H RBC 2.57 L Hgb 7.1 L Hct 23.4 L MCH MCHC RDW 23.9 H Plt Count Seg Neutrophils % Seg Neuts % (Manual) 72.0 H Nucleated RBC % 25.0 H Seg Neutrophils # Seg Neutrophils # Man 8.9 H PT INR POC ABG pH POC ABG pCO2 POC ABG pO2 Sodium Potassium Chloride Carbon Dioxide BUN Creatinine 1.4 H Glucose 299 H POC Glucose 327 H Lactic Acid Calcium 7.0 L Total Bilirubin AST ALT Alkaline Phosphatase Ammonia Troponin T C-Reactive Protein Total Protein Albumin Prealbumin TSH Crossmatch 09/02/16 09/02/16 09/02/16 12:22 17:22 23:24 WBC RBC Hgb Hct MCH MCHC RDW Plt Count Seg Neutrophils % Seg Neuts % (Manual) Nucleated RBC % Seg Neutrophils # Seg Neutrophils # Man PT INR POC ABG pH POC ABG pCO2 POC ABG pO2 Sodium Potassium Chloride Carbon Dioxide BUN Creatinine Glucose POC Glucose 310 H 358 H 286 H Lactic Acid Calcium Total Bilirubin AST ALT Alkaline Phosphatase Ammonia Troponin T C-Reactive Protein Total Protein Albumin Prealbumin TSH Crossmatch 09/03/16 09/03/16 09/03/16 04:10 04:10 04:10 WBC 11.8 H RBC 2.29 L Hgb 6.1 L Hct 21.0 L MCH 27 L MCHC 29 L RDW 24.1 H Plt Count Seg Neutrophils % Seg Neuts % (Manual) Nucleated RBC % Seg Neutrophils # Seg Neutrophils # Man PT 17.6 H INR 1.45 H POC ABG pH POC ABG pCO2 POC ABG pO2 Sodium Potassium Chloride Carbon Dioxide BUN Creatinine 1.4 H Glucose 301 H POC Glucose Lactic Acid Calcium 7.0 L Total Bilirubin AST ALT Alkaline Phosphatase Ammonia Troponin T C-Reactive Protein Total Protein Albumin Prealbumin TSH Crossmatch 09/03/16 09/03/16 09/03/16 05:59 11:36 17:42 WBC RBC Hgb Hct MCH MCHC RDW Plt Count Seg Neutrophils % Seg Neuts % (Manual) Nucleated RBC % Seg Neutrophils # Seg Neutrophils # Man PT INR POC ABG pH POC ABG pCO2 POC ABG pO2 Sodium Potassium Chloride Carbon Dioxide BUN Creatinine Glucose POC Glucose 351 H 285 H 259 H Lactic Acid Calcium Total Bilirubin AST ALT Alkaline Phosphatase Ammonia Troponin T C-Reactive Protein Total Protein Albumin Prealbumin TSH Crossmatch 09/03/16 09/04/16 09/04/16 23:00 04:27 05:36 WBC RBC Hgb Hct MCH MCHC RDW Plt Count Seg Neutrophils % Seg Neuts % (Manual) Nucleated RBC % Seg Neutrophils # Seg Neutrophils # Man PT INR POC ABG pH 7.544 H POC ABG pCO2 30.8 L POC ABG pO2 78 L Sodium Potassium Chloride Carbon Dioxide BUN Creatinine Glucose POC Glucose 192 H 228 H Lactic Acid Calcium Total Bilirubin AST ALT Alkaline Phosphatase Ammonia Troponin T C-Reactive Protein Total Protein Albumin Prealbumin TSH Crossmatch 09/04/16 09/04/16 09/04/16 06:37 06:37 06:39 WBC 21.0 H RBC 2.22 L Hgb 6.0 L Hct 20.1 L MCH 27 L MCHC RDW 24.3 H Plt Count Seg Neutrophils % Seg Neuts % (Manual) Nucleated RBC % Seg Neutrophils # Seg Neutrophils # Man PT 16.8 H INR 1.37 H POC ABG pH POC ABG pCO2 POC ABG pO2 Sodium Potassium Chloride Carbon Dioxide BUN Creatinine 1.4 H Glucose 201 H POC Glucose Lactic Acid Calcium 7.1 L Total Bilirubin AST ALT Alkaline Phosphatase Ammonia Troponin T C-Reactive Protein Total Protein Albumin Prealbumin TSH Crossmatch 09/04/16 09/04/16 09/04/16 12:14 15:47 17:41 WBC RBC Hgb Hct MCH MCHC RDW Plt Count Seg Neutrophils % Seg Neuts % (Manual) Nucleated RBC % Seg Neutrophils # Seg Neutrophils # Man PT INR POC ABG pH POC ABG pCO2 POC ABG pO2 Sodium Potassium Chloride Carbon Dioxide BUN Creatinine Glucose POC Glucose 176 H 218 H Lactic Acid Calcium Total Bilirubin AST ALT Alkaline Phosphatase Ammonia Troponin T C-Reactive Protein Total Protein Albumin Prealbumin TSH Crossmatch See Detail 09/04/16 09/04/16 09/05/16 21:59 23:48 04:30 WBC RBC Hgb Hct MCH MCHC RDW Plt Count Seg Neutrophils % Seg Neuts % (Manual) Nucleated RBC % Seg Neutrophils # Seg Neutrophils # Man PT 17.2 H INR 1.41 H POC ABG pH POC ABG pCO2 POC ABG pO2 Sodium Potassium Chloride Carbon Dioxide BUN Creatinine Glucose POC Glucose 170 H 121 H Lactic Acid Calcium Total Bilirubin AST ALT Alkaline Phosphatase Ammonia Troponin T C-Reactive Protein Total Protein Albumin Prealbumin TSH Crossmatch 09/05/16 09/05/16 09/05/16 04:30 04:30 05:09 WBC 31.9 H RBC 3.11 L Hgb 8.5 L Hct 28.3 L D MCH 27 L MCHC RDW 21.0 H Plt Count Seg Neutrophils % Seg Neuts % (Manual) Nucleated RBC % Seg Neutrophils # Seg Neutrophils # Man PT INR POC ABG pH 7.226 L POC ABG pCO2 61.6 H POC ABG pO2 68 L Sodium 134 L Potassium 5.5 H Chloride 96.6 L Carbon Dioxide BUN 23 H Creatinine 1.6 H Glucose 116 H POC Glucose Lactic Acid Calcium 7.1 L Total Bilirubin AST ALT Alkaline Phosphatase Ammonia Troponin T C-Reactive Protein Total Protein Albumin Prealbumin TSH Crossmatch 09/05/16 09/05/16 09/05/16 05:33 12:08 17:32 WBC RBC Hgb Hct MCH MCHC RDW Plt Count Seg Neutrophils % Seg Neuts % (Manual) Nucleated RBC % Seg Neutrophils # Seg Neutrophils # Man PT INR POC ABG pH POC ABG pCO2 POC ABG pO2 Sodium Potassium Chloride Carbon Dioxide BUN Creatinine Glucose POC Glucose 114 H 147 H 174 H Lactic Acid Calcium Total Bilirubin AST ALT Alkaline Phosphatase Ammonia Troponin T C-Reactive Protein Total Protein Albumin Prealbumin TSH Crossmatch 09/06/16 09/06/16 09/06/16 03:30 03:30 03:30 WBC 25.4 H RBC 2.57 L Hgb 7.2 L Hct 22.8 L MCH MCHC RDW 20.9 H Plt Count 138 L Seg Neutrophils % Seg Neuts % (Manual) Nucleated RBC % Seg Neutrophils # Seg Neutrophils # Man PT 16.4 H INR 1.33 H POC ABG pH POC ABG pCO2 POC ABG pO2 Sodium Potassium Chloride Carbon Dioxide BUN 36 H Creatinine 1.9 H Glucose POC Glucose Lactic Acid Calcium 7.2 L Total Bilirubin AST ALT Alkaline Phosphatase Ammonia Troponin T C-Reactive Protein Total Protein Albumin Prealbumin TSH Crossmatch 09/06/16 09/06/16 09/06/16 11:07 12:03 14:44 WBC RBC Hgb Hct MCH MCHC RDW Plt Count Seg Neutrophils % Seg Neuts % (Manual) Nucleated RBC % Seg Neutrophils # Seg Neutrophils # Man PT INR POC ABG pH POC ABG pCO2 POC ABG pO2 Sodium Potassium Chloride Carbon Dioxide BUN Creatinine Glucose POC Glucose 61 L 55 L Lactic Acid Calcium Total Bilirubin AST ALT Alkaline Phosphatase Ammonia Troponin T 0.080 H C-Reactive Protein Total Protein Albumin Prealbumin TSH Crossmatch 09/06/16 09/06/16 09/07/16 21:05 23:53 03:36 WBC RBC Hgb Hct MCH MCHC RDW Plt Count Seg Neutrophils % Seg Neuts % (Manual) Nucleated RBC % Seg Neutrophils # Seg Neutrophils # Cristian PT INR POC ABG pH POC ABG pCO2 POC ABG pO2 Sodium Potassium Chloride Carbon Dioxide BUN Creatinine Glucose POC Glucose 140 H 178 H 243 H Lactic Acid Calcium Total Bilirubin AST ALT Alkaline Phosphatase Ammonia Troponin T C-Reactive Protein Total Protein Albumin Prealbumin TSH Crossmatch 09/07/16 09/07/16 09/07/16 03:42 03:42 05:04 WBC 17.3 H RBC 2.69 L Hgb 7.6 L Hct 23.8 L MCH MCHC RDW 20.5 H Plt Count 137 L Seg Neutrophils % Seg Neuts % (Manual) Nucleated RBC % Seg Neutrophils # Seg Neutrophils # Cristian PT INR POC ABG pH POC ABG pCO2 POC ABG pO2 Sodium Potassium 3.3 L Chloride Carbon Dioxide BUN 38 H Creatinine 1.6 H Glucose 201 H POC Glucose 241 H Lactic Acid Calcium 7.4 L Total Bilirubin AST ALT Alkaline Phosphatase Ammonia Troponin T C-Reactive Protein Total Protein Albumin Prealbumin TSH Crossmatch 09/07/16 09/07/16 09/07/16 11:46 17:41 23:18 WBC RBC Hgb Hct MCH MCHC RDW Plt Count Seg Neutrophils % Seg Neuts % (Manual) Nucleated RBC % Seg Neutrophils # Seg Neutrophils # Cristian PT INR POC ABG pH POC ABG pCO2 POC ABG pO2 Sodium Potassium Chloride Carbon Dioxide BUN Creatinine Glucose POC Glucose 313 H 227 H 116 H Lactic Acid Calcium Total Bilirubin AST ALT Alkaline Phosphatase Ammonia Troponin T C-Reactive Protein Total Protein Albumin Prealbumin TSH Crossmatch 09/08/16 09/08/16 09/08/16 04:00 04:00 05:15 WBC 18.4 H RBC 2.43 L Hgb 6.9 L Hct 21.5 L MCH MCHC RDW 20.5 H Plt Count 119 L Seg Neutrophils % Seg Neuts % (Manual) Nucleated RBC % Seg Neutrophils # Seg Neutrophils # Man PT INR POC ABG pH 7.458 H POC ABG pCO2 POC ABG pO2 177 H Sodium Potassium 3.5 L Chloride Carbon Dioxide BUN 37 H Creatinine 1.3 H Glucose POC Glucose Lactic Acid Calcium 7.1 L Total Bilirubin AST ALT Alkaline Phosphatase Ammonia Troponin T C-Reactive Protein Total Protein Albumin Prealbumin TSH Crossmatch 09/08/16 09/08/16 09/08/16 11:00 15:58 23:16 WBC RBC Hgb Hct MCH MCHC RDW Plt Count Seg Neutrophils % Seg Neuts % (Manual) Nucleated RBC % Seg Neutrophils # Seg Neutrophils # Man PT INR POC ABG pH POC ABG pCO2 POC ABG pO2 113 H Sodium Potassium Chloride Carbon Dioxide BUN Creatinine Glucose POC Glucose 40 L Lactic Acid Calcium Total Bilirubin AST ALT Alkaline Phosphatase Ammonia Troponin T C-Reactive Protein Total Protein Albumin Prealbumin TSH Crossmatch See Detail 09/09/16 09/09/16 09/09/16 05:02 12:33 18:10 WBC RBC Hgb Hct MCH MCHC RDW Plt Count Seg Neutrophils % Seg Neuts % (Manual) Nucleated RBC % Seg Neutrophils # Seg Neutrophils # Man PT INR POC ABG pH 7.454 H POC ABG pCO2 POC ABG pO2 75 L Sodium Potassium Chloride Carbon Dioxide BUN Creatinine Glucose POC Glucose 59 L Lactic Acid Calcium Total Bilirubin AST ALT Alkaline Phosphatase Ammonia Troponin T C-Reactive Protein Total Protein Albumin Prealbumin TSH 5.220 H Crossmatch 09/09/16 09/09/16 09/09/16 18:10 18:10 18:42 WBC 17.0 H RBC 2.90 L Hgb 8.5 L Hct 26.1 L MCH MCHC RDW 17.9 H Plt Count 126 L Seg Neutrophils % Seg Neuts % (Manual) Nucleated RBC % Seg Neutrophils # Seg Neutrophils # Man PT INR POC ABG pH POC ABG pCO2 POC ABG pO2 Sodium Potassium Chloride Carbon Dioxide BUN 36 H Creatinine Glucose 133 H POC Glucose 148 H Lactic Acid Calcium 6.9 L Total Bilirubin AST 253 H ALT 184 H Alkaline Phosphatase 729 H Ammonia Troponin T C-Reactive Protein Total Protein 5.1 L Albumin 1.7 L Prealbumin TSH Crossmatch 09/09/16 09/10/16 09/10/16 23:22 05:10 11:43 WBC RBC Hgb Hct MCH MCHC RDW Plt Count Seg Neutrophils % Seg Neuts % (Manual) Nucleated RBC % Seg Neutrophils # Seg Neutrophils # Man PT INR POC ABG pH POC ABG pCO2 POC ABG pO2 Sodium Potassium Chloride Carbon Dioxide BUN 35 H Creatinine Glucose 240 H POC Glucose 170 H 268 H Lactic Acid Calcium 6.8 L Total Bilirubin AST 226 H ALT 171 H Alkaline Phosphatase 710 H Ammonia Troponin T C-Reactive Protein Total Protein 5.2 L Albumin 1.7 L Prealbumin TSH Crossmatch 09/10/16 09/11/16 09/11/16 17:51 01:07 05:00 WBC RBC Hgb Hct MCH MCHC RDW Plt Count Seg Neutrophils % Seg Neuts % (Manual) Nucleated RBC % Seg Neutrophils # Seg Neutrophils # Man PT INR POC ABG pH POC ABG pCO2 POC ABG pO2 Sodium Potassium 2.9 L* Chloride Carbon Dioxide BUN 35 H Creatinine Glucose 274 H POC Glucose 334 H 223 H Lactic Acid Calcium 6.9 L Total Bilirubin AST 167 H ALT 145 H Alkaline Phosphatase 631 H Ammonia Troponin T C-Reactive Protein Total Protein 5.1 L Albumin 1.6 L Prealbumin TSH Crossmatch 09/11/16 09/11/16 09/11/16 05:01 12:16 17:12 WBC RBC Hgb Hct MCH MCHC RDW Plt Count Seg Neutrophils % Seg Neuts % (Manual) Nucleated RBC % Seg Neutrophils # Seg Neutrophils # Man PT INR POC ABG pH POC ABG pCO2 POC ABG pO2 Sodium Potassium Chloride Carbon Dioxide BUN Creatinine Glucose POC Glucose 305 H 219 H 171 H Lactic Acid Calcium Total Bilirubin AST ALT Alkaline Phosphatase Ammonia Troponin T C-Reactive Protein Total Protein Albumin Prealbumin TSH Crossmatch 09/11/16 09/12/16 09/12/16 23:35 03:33 05:00 WBC 12.9 H RBC 2.81 L Hgb 8.2 L Hct 25.4 L MCH MCHC RDW 17.9 H Plt Count Seg Neutrophils % Seg Neuts % (Manual) Nucleated RBC % Seg Neutrophils # Seg Neutrophils # Man PT INR POC ABG pH POC ABG pCO2 POC ABG pO2 Sodium Potassium Chloride Carbon Dioxide BUN Creatinine Glucose POC Glucose 216 H 183 H Lactic Acid Calcium Total Bilirubin AST ALT Alkaline Phosphatase Ammonia Troponin T C-Reactive Protein Total Protein Albumin Prealbumin TSH Crossmatch 09/12/16 09/12/16 09/12/16 05:00 15:15 18:30 WBC RBC Hgb Hct MCH MCHC RDW Plt Count Seg Neutrophils % Seg Neuts % (Manual) Nucleated RBC % Seg Neutrophils # Seg Neutrophils # Man PT INR POC ABG pH POC ABG pCO2 POC ABG pO2 Sodium Potassium 3.0 L 3.4 L Chloride Carbon Dioxide BUN 33 H Creatinine 0.5 L Glucose POC Glucose 215 H Lactic Acid Calcium 7.0 L Total Bilirubin AST ALT Alkaline Phosphatase Ammonia Troponin T C-Reactive Protein Total Protein Albumin Prealbumin TSH Crossmatch 09/12/16 09/13/16 09/13/16 23:17 05:50 05:50 WBC RBC 2.93 L Hgb 8.8 L Hct 26.7 L MCH MCHC RDW 18.0 H Plt Count Seg Neutrophils % Seg Neuts % (Manual) Nucleated RBC % Seg Neutrophils # Seg Neutrophils # Man PT INR POC ABG pH POC ABG pCO2 POC ABG pO2 Sodium Potassium 2.6 L* D Chloride Carbon Dioxide BUN 29 H Creatinine 0.5 L Glucose 106 H POC Glucose 155 H Lactic Acid Calcium 7.3 L Total Bilirubin AST ALT Alkaline Phosphatase Ammonia Troponin T C-Reactive Protein Total Protein Albumin Prealbumin TSH Crossmatch 09/13/16 09/13/16 09/13/16 05:53 11:43 15:07 WBC RBC Hgb Hct MCH MCHC RDW Plt Count Seg Neutrophils % Seg Neuts % (Manual) Nucleated RBC % Seg Neutrophils # Seg Neutrophils # Man PT INR POC ABG pH POC ABG pCO2 POC ABG pO2 Sodium Potassium 2.8 L* Chloride Carbon Dioxide BUN Creatinine Glucose POC Glucose 119 H 129 H Lactic Acid Calcium Total Bilirubin AST ALT Alkaline Phosphatase Ammonia Troponin T C-Reactive Protein Total Protein Albumin Prealbumin TSH Crossmatch 09/13/16 17:39 WBC RBC Hgb Hct MCH MCHC RDW Plt Count Seg Neutrophils % Seg Neuts % (Manual) Nucleated RBC % Seg Neutrophils # Seg Neutrophils # Man PT INR POC ABG pH POC ABG pCO2 POC ABG pO2 Sodium Potassium Chloride Carbon Dioxide BUN Creatinine Glucose POC Glucose 144 H Lactic Acid Calcium Total Bilirubin AST ALT Alkaline Phosphatase Ammonia Troponin T C-Reactive Protein Total Protein Albumin Prealbumin TSH Crossmatch Chest x-ray: report reviewed (ET tube in place. No acute changes reported.) Allied health notes reviewed: RT
[2016-09-13] MEDS: LEVEMIR SUB-Q SCH (21:55)
[2016-09-14] MEDS: FLAGYL 500 MG/100 ML 500 MG/100 ML BAG IV SCH ×3 (00:15→18:37)
[2016-09-14] MEDS: NOVOLOG SUB-Q SCH ×4 (00:15→18:36)
[2016-09-14] MEDS: MAXIPIME/NS 1 GM/100 ML 1 GM/100 ML BAG IV SCH (00:15)
[2016-09-14] MEDS: REGLAN IV SCH ×4 (00:16→22:00)
[2016-09-14] MEDS: DUONEB 0.5 MG-3 MG/3 ML SOLN IH SCH ×4 (02:06→21:01)
[2016-09-14] MEDS: PROAMATINE PO SCH ×3 (06:02→22:00)
[2016-09-14] MEDS: LOPRESSOR PO SCH ×5 (06:02→23:00)
[2016-09-14 06:36] LABS: Hematocrit 25.7 % (30.3-42.9); Hemoglobin 8.4 gm/dl (10.1-14.3); Mean Corpuscular HGB Conc 33 % (30-34); Mean Corpuscular Hemoglobin 30 pg (28-32); Mean Corpuscular Volume 91 fl (79-97); Platelet Count 183 K/mm3 (140-440); Red Blood Count 2.82 M/mm3 (3.65-5.03)
--- NOTE | 2016-09-14 06:41 | Progress Note ---
Assessment and Plan - Patient Problems (1) HCAP (healthcare-associated pneumonia) Current Visit: Yes Status: Acute Plan to address problem: 1. Will narrow Cefepime to Ceftriaxone to complete course through ~September 17. 2. Continue Flagyl while on Ceftriaxone. (2) Leukocytosis, unspecified Current Visit: Yes Status: Acute Qualifiers: Leukocytosis type: L Plan to address problem: 1. Resolved. Subjective Date of service: 09/14/16 Principal diagnosis: Acute Hypoxemic Hypercapnic Resp Failure; Severe Sepsis Interval history: Remains in ICU. Afebrile. Objective - Exam Narrative Exam: eyes open, not presently tracking to voice/ movement - Constitutional Vitals: Vital Signs Temp Pulse Resp BP Pulse Ox 96.8 F L 76 22 134/91 100 09/14/16 04:00 09/14/16 06:22 09/14/16 06:00 09/14/16 06:22 09/14/16 06:22 Temperature -Last 24 Hours Temperature 96.8 F Temperature 97.1 F Temperature 97.1 F Temperature 98.6 F Temperature 97.3 F Temperature 97.3 F Temperature 97.6 F General appearance: Present: other (morbidly obese) - EENT ENT: other (ET and NG tubes in place, FiO2 30%) - Respiratory Respiratory: bilateral: rhonchi - Cardiovascular Rhythm: regular Heart Sounds: Present: S1 & S2 Extremities: No edema - Gastrointestinal General gastrointestinal: Present: soft, non-distended, normal bowel sounds - Integumentary Integumentary: no jaundice, no rash - Labs CBC & Chem 7: 09/14/16 06:24 09/14/16 06:24 Labs: Abnormal lab results 09/13/16 09/13/16 09/13/16 Range/Units 05:50 05:50 11:43 RBC 2.93 L (3.65-5.03) M/mm3 Hgb 8.8 L (10.1-14.3) gm/dl Hct 26.7 L (30.3-42.9) % RDW 18.0 H (13.2-15.2) % Potassium 2.6 L* D (3.6-5.0) mmol/L BUN 29 H (7-17) mg/dL Creatinine 0.5 L (0.7-1.2) mg/dL Glucose 106 H (65-100) mg/dL POC Glucose 129 H (70-105) Calcium 7.3 L (8.4-10.2) mg/dL 09/13/16 09/13/16 09/13/16 Range/Units 15:07 17:39 23:30 RBC (3.65-5.03) M/mm3 Hgb (10.1-14.3) gm/dl Hct (30.3-42.9) % RDW (13.2-15.2) % Potassium 2.8 L* (3.6-5.0) mmol/L BUN (7-17) mg/dL Creatinine (0.7-1.2) mg/dL Glucose (65-100) mg/dL POC Glucose 144 H 196 H (70-105) Calcium (8.4-10.2) mg/dL 09/14/16 09/14/16 Range/Units 05:34 06:24 RBC 2.82 L (3.65-5.03) M/mm3 Hgb 8.4 L (10.1-14.3) gm/dl Hct 25.7 L (30.3-42.9) % RDW 18.0 H (13.2-15.2) % Potassium (3.6-5.0) mmol/L BUN (7-17) mg/dL Creatinine (0.7-1.2) mg/dL Glucose (65-100) mg/dL POC Glucose 175 H (70-105) Calcium (8.4-10.2) mg/dL Microbiology 09/09/16 19:23 Peripheral/Venous Blood Culture - Preliminary NO GROWTH AFTER 4 DAYS 09/09/16 18:10 Peripheral/Venous Blood Culture - Preliminary NO GROWTH AFTER 4 DAYS 09/09/16 13:40 Tracheal Aspirate Sputum Culture - Final Klebsiella Pneumoniae 08/29/16 17:40 Peripheral/Venous Blood Culture - Final NO GROWTH AFTER 5 DAYS 08/29/16 17:45 Peripheral/Venous Blood Culture - Final NO GROWTH AFTER 5 DAYS 09/03/16 18:00 Stool Stool Occult Blood (JEANNETTE) - Final 08/29/16 15:37 Urine,Catheterized - Indwelling Catheter Urine Culture - Final NO GROWTH AFTER 48 HOURS 08/29/16 Unknown Tracheal Aspirate Sputum Culture - Final Active Medications Acetaminophen (Tylenol) 650 mg PO Q4H PRN PRN Reason: Pain MILD(1-3)/Fever >100.5/DUBOSE Albuterol (Proventil) 2.5 mg IH Q3HRT PRN PRN Reason: Shortness Of Breath Albuterol/Ipratropium (Duoneb 0.5 Mg-3 Mg/3 Ml Soln) 1 ampul IH Q6HRT [facility] [place] Last Admin: 09/14/16 02:06 Dose: 1 ampul Lipase/Protease/Amylase (Pancreaze Dr 10,500 Unit) 1 each FEEDTUBE PRN PRN PRN Reason: For Clogged Feeding Tube Bisacodyl (Dulcolax) 10 mg NH QDAY PRN PRN Reason: Constipation unrelieved by MOM Enoxaparin Sodium (Lovenox) 40 mg SUB-Q DAILY [facility] [place] Last Admin: 09/13/16 09:34 Dose: 40 mg Ferrous Sulfate (Ferrous Sulfate) 300 mg PO QDAY [facility] [place] Last Admin: 09/13/16 09:30 Dose: 300 mg Folic Acid (Folvite) 1 mg PO DAILY [facility] [place] Last Admin: 09/13/16 09:34 Dose: 1 mg Furosemide (Lasix) 20 mg IV QDAY [facility] [place] Stop: 09/14/16 12:59 Last Admin: 09/13/16 09:46 Dose: 20 mg Hydrocortisone Sodium Succinate (Solu-Cortef) 100 mg IV Q8HR [facility] [place] Last Admin: 09/14/16 06:02 Dose: 100 mg Hydrophilic Ointment (Vaseline Lip Therapy) 1 applic TP Q2HR PRN PRN Reason: Dry Lips Norepinephrine (Levophed Drip 4 Mg/Ns 250 Ml) 4 mg in 250 mls @ 7.5 mls/hr IV TITR KATHY; 2 MCG/MIN PRN Reason: Protocol Last Titration: 09/10/16 12:00 Dose: 0 mcg/min, 0 mls/hr Lorazepam 100 mg/ Sodium Chloride/ Miscellaneous Information 100 mls @ 2 mls/ hr IV TITR KATHY; 2 MG/HR PRN Reason: Protocol Last Titration: 09/07/16 14:03 Dose: 0 mg/hr, 0 mls/hr Cefepime HCl (Maxipime/Ns 1 Gm/100 Ml) 1 gm in 100 mls @ 200 mls/hr IV Q8H KATHY PRN Reason: Protocol Last Admin: 09/14/16 00:15 Dose: 200 mls/hr Metronidazole (Flagyl 500 Mg/100 Ml) 500 mg in 100 mls @ 100 mls/hr IV Q8H [facility] [place] Last Admin: 09/14/16 00:15 Dose: 100 mls/hr Insulin Aspart (Novolog) 0 units SUB-Q Q6HR [facility] PRN Reason: Protocol Last Admin: 09/14/16 06:01 Dose: 3 units Insulin Detemir (Levemir) 10 units SUB-Q QHS [facility] [place] Last Admin: 09/13/16 21:55 Dose: 10 units Lactulose (Cephulac) 20 gm PO Q6H PRN PRN Reason: Constipation Levetiracetam (Keppra) 500 mg PO BID [facility] [place] Last Admin: 09/13/16 21:55 Dose: 500 mg Levothyroxine Sodium (Synthroid) 37.5 mcg IV DAILY [facility] [place] Last Admin: 09/13/16 09:29 Dose: 37.5 mcg Lorazepam (Ativan) 1 mg IV Q5MIN PRN PRN Reason: Seizures Last Admin: 09/05/16 03:05 Dose: 1 mg Magnesium Hydroxide (Milk Of Magnesia) 30 ml PO Q4H PRN PRN Reason: Constipation Metoclopramide HCl (Reglan) 10 mg IV Q6H [facility] [place] Last Admin: 09/14/16 00:16 Dose: 10 mg Metoprolol Tartrate (Lopressor) 25 mg PO Q6H [facility] [place] Last Admin: 09/14/16 06:02 Dose: Not Given Midodrine (Proamatine) 10 mg PO Q8HR [facility] [place] Last Admin: 09/14/16 06:02 Dose: 10 mg Multi-Ingred Cream/Lotion/Oil/Oint (Artificial Tears Ophth Oint) 1 applic OU Q4HR PRN PRN Reason: Dry Eye(s) Last Admin: 09/06/16 06:39 Dose: 1 applic Ondansetron HCl (Zofran) 4 mg IV Q8H PRN PRN Reason: N/V unrelieved by Reglan Pantoprazole (Protonix) 40 mg PO QDAY [facility] [place] Last Admin: 09/13/16 09:34 Dose: 40 mg Simple Syrup (Simple Syrup) 15 ml FEEDTUBE PRN PRN PRN Reason: Hypoglycemia Simple Syrup (Simple Syrup) 30 ml FEEDTUBE PRN PRN PRN Reason: Hypoglycemia Sodium Bicarbonate (Sodium Bicarbonate) 325 mg FEEDTUBE PRN PRN PRN Reason: For Clogged Feeding Tube - Imaging and cardiology Abdominal x-ray: report reviewed (confirmation of feeding tube placement)
[2016-09-14 06:51] LABS: Anion Gap 14 mmol/L; Blood Urea Nitrogen 26 mg/dL (7-17); Calcium 7.5 mg/dL (8.4-10.2); Carbon Dioxide 26 mmol/L (22-30); Chloride 107.3 mmol/L (98-107); Glucose 169 mg/dL (65-100); Sodium 144 mmol/L (137-145)
[2016-09-14 07:34] LABS: Potassium 2.9 mmol/L (3.6-5.0)
[2016-09-14] MEDS ORDERED: KCL 10MEQ/100ML 10 MEQ/100 ML BAG IV SCH (08:00)
--- NOTE | 2016-09-14 09:17 | Progress Note ---
Assessment and Plan Assessment and plan: Records obtained from ER documentation of family Patient is a 61-year-old morbidly obese female past medical history of congestive heart failure, severe protein calorie malnutrition with BMI of 1.8, functional quadriplegia, type 2 diabetes mellitus, hypertension, multiple skin breakdown between legs and thighs per history presented to the hospital via EMS after the called EMS. The patient has not been verbally responsive for about 2 days. Although tracks and appears to be aware for involvement. By history patient has had intubations in the past history appears to have been unavailable apart from what is noted above. It appears patient has been admitted to the hospital in the past for CHF and also for abdominal pain with echocardiogram at that time showing ejection fraction of 50-55%. During the past admission patient was recommended for placement but refused. On presentation patient was felt to be able to maintain airway and intubated the ER and was admitted was also felt to be in florid heart failure with hemoglobin of 7.7 on the source of bleeding and shock syndrome with systolic pressures in the 70s requiring packed red blood cell transfusion * Acute toxic metabolic encephalopathy-? Anoxic Injury * Septic shock * VENTRICULAR ECTOPY with SINUS ARRHYTHMIA- HR 125 this am * Acute on chronic diastolic congestive heart failure * Acute on chronic respiratory failure with >96 hrs on mechanical ventilation * Septic shock with hypothermia * Status epilepticus due to refractory complex partial seizures * Hypercoagulable state * Severe anemia-with precipitous drop in hemoglobin * Hypothyroidism * Mitral stenosis * Paroxysmal atrial fibrillation * Non-ST elevated ND * Acute on chronic kidney disease likely secondary to vasomotor nephropathy-POA - IMPROVED, LIKELY SECONDARY TO HYPOTENSION * Transaminitis-elevated alkaline phosphatase and AST * Severe protein calorie malnutrition albumin 1.2 * Morbid obesity BMI 81.6 * PRESSURE ULCERS-POA PLAN: * Continue supportive care * Family refused to sign For trach and peg * plan for discharge to LTAC in am * Currently on the vent aspiration precautions, STRESS ulcer phrophy, Aspiration of laxatives * Continue abx, also on Midodrine * Cotinue gentle diuresis, replace Electrolytes as needed * S/P 5 UNIT PRBC * Continue Keppra and dilantin, neuroplogy following * Cipro eyedrops for conjunctivitis medication * Continue Low dose Levoxyl * NGT for tube feed * CT head unable to obtain due to weight. We'll discuss in a.m. for possible open imaging Center to evaluate central etiology. * Conservative mangement per cardiology * A chief radiology following * Continue antibiotics. Cultures revealed no growth to date. * Warfarin discontinued * Monitor his H&H * Is no neurological improvement will need a neurologic consultation * Family made the patient AND/DNR-likely dyspneic with the son also notes patient has multiple children. Coronary and sister Leanne Woody on the bedside as well as the boyfriend who we hear some of her legal . According to documentation not upset the visit February the patient was in the hospital. In the boyfriend who lives with the patient did not notify the family. Family still not agreeable to trach and PEG. LTAC eval is pending. My understanding only [facility] LT[facility] takes insurance and was still awaiting their input. * Continue Lasix, daily weights, strict ins and outs, * POOR prognosis 40 mins critical care time DISCUSSED WITH CASE MANAGEMENT FAMILY FRIEND PRESENT IN THE ROOM. History Interval history: Patient seen and examined, remains intubated, not on sedation but not following commands. Hospitalist Physical - Physical exam Narrative exam: VITAL SIGNS: Reviewed. GENERAL: The patient appeared to be obese. Vital signs as documented. HEAD: No signs of head trauma. EYES: Pupils are equal. Extraocular motions intact. left conguctivital injection EARS: Hearing grossly intact. MOUTH: ET tube NECK: No adenopathy, no JVD. CHEST: Chest with decreased sounds bilaterally. No wheezes, rales, or rhonchi. CARDIAC: Regular rate and rhythm. S1 and S2, without murmurs, gallops, or rubs. VASCULAR: Lymphedema. Peripheral pulses normal and equal in all extremities. ABDOMEN: Soft, without detectable tenderness. Anasarca with edema extended to the abdominal [place] No sign of distention. No rebound or guarding, and no masses palpated. Bowel Sounds normal. MUSCULOSKELETAL: Good range of motion of all major joints. Extremities without clubbing, cyanosis or edema. NEUROLOGIC EXAM: Not following commands PSYCHIATRIC: Mood flat SKIN: multiple pressure ulcers - - Constitutional Vitals: Temp Pulse Resp BP Pulse Ox 97.3 F L 56 L 21 134/47 100 09/14/16 08:00 09/14/16 08:42 09/14/16 08:42 09/14/16 08:27 09/14/16 08:27 General appearance: Present: other (morbidly obese) Results - Labs CBC & Chem 7: 09/14/16 06:24 09/14/16 06:24 Labs: Laboratory Last Values WBC 8.0 K/mm3 (4.5-11.0) 09/14/16 06:24 RBC 2.82 M/mm3 (3.65-5.03) L 09/14/16 06:24 Hgb 8.4 gm/dl (10.1-14.3) L 09/14/16 06:24 Hct 25.7 % (30.3-42.9) L 09/14/16 06:24 MCV 91 fl (79-97) 09/14/16 06:24 MCH 30 pg (28-32) 09/14/16 06:24 MCHC 33 % (30-34) 09/14/16 06:24 RDW 18.0 % (13.2-15.2) H 09/14/16 06:24 Plt Count 183 K/mm3 (140-440) 09/14/16 06:24 Lymph % (Auto) 15.6 % (13.4-35.0) 08/30/16 10:30 [place]cl[place] % (Auto) 5.1 % (0.0-7.3) 08/30/16 10:30 Eos % (Auto) 0.6 % (0.0-4.3) 08/30/16 10:30 Baso % (Auto) 0.1 % (0.0-1.8) 08/30/16 10:30 Lymph # 1.7 K/mm3 (1.2-5.4) 08/30/16 10:30 [place]cl[place] # 0.6 K/mm3 (0.0-0.8) 08/30/16 10:30 Eos # 0.1 K/mm3 (0.0-0.4) 08/30/16 10:30 Baso # 0.0 K/mm3 (0.0-0.1) 08/30/16 10:30 Add Manual Diff Complete 09/02/16 05:00 Total Counted 100 09/02/16 05:00 Seg Neutrophils % 78.6 % (40.0-70.0) H 08/30/16 10:30 Seg Neuts % (Manual) 72.0 % (40.0-70.0) H 09/02/16 05:00 Band Neutrophils % 9.0 % 09/02/16 05:00 Lymphocytes % (Manual) 15.0 % (13.4-35.0) 09/02/16 05:00 Reactive Lymphs % (Man) 0 % 09/02/16 05:00 Monocytes % (Manual) 4.0 % (0.0-7.3) 09/02/16 05:00 Eosinophils % (Manual) 0 % (0.0-4.3) 09/02/16 05:00 Basophils % (Manual) 0 % (0.0-1.8) 09/02/16 05:00 Metamyelocytes % 0 % 09/02/16 05:00 Myelocytes % 0 % 09/02/16 05:00 Promyelocytes % 0 % 09/02/16 05:00 Blast Cells % 0 % 09/02/16 05:00 Nucleated RBC % 25.0 % (0.0-0.9) H 09/02/16 05:00 Seg Neutrophils # 8.7 K/mm3 (1.8-7.7) H 08/30/16 10:30 Seg Neutrophils # Man 8.9 K/mm3 (1.8-7.7) H 09/02/16 05:00 Band Neutrophils # 1.1 K/mm3 09/02/16 05:00 Lymphocytes # (Manual) 1.8 K/mm3 (1.2-5.4) 09/02/16 05:00 Abs React Lymphs (Man) 0.0 K/mm3 09/02/16 05:00 Monocytes # (Manual) 0.5 K/mm3 (0.0-0.8) 09/02/16 05:00 Eosinophils # (Manual) 0.0 K/mm3 (0.0-0.4) 09/02/16 05:00 Basophils # (Manual) 0.0 K/mm3 (0.0-0.1) 09/02/16 05:00 Metamyelocytes # 0.0 K/mm3 09/02/16 05:00 Myelocytes # 0.0 K/mm3 09/02/16 05:00 Promyelocytes # 0.0 K/mm3 09/02/16 05:00 Blast Cells # 0.0 K/mm3 09/02/16 05:00 WBC Morphology Not Reportable 09/02/16 05:00 Hypersegmented Neuts Not Reportable 09/02/16 05:00 Hyposegmented Neuts Not Reportable 09/02/16 05:00 Hypogranular Neuts Not Reportable 09/02/16 05:00 Smudge Cells Not Reportable 09/02/16 05:00 Toxic Granulation Not Reportable 09/02/16 05:00 Toxic Vacuolation Not Reportable 09/02/16 05:00 Dohle Bodies Not Reportable 09/02/16 05:00 Pelger-Huet Anomaly Not Reportable 09/02/16 05:00 Feli Rods Not Reportable 09/02/16 05:00 Platelet Estimate Consistent w auto 09/02/16 05:00 Clumped Platelets Not Reportable 09/02/16 05:00 Plt Clumps, EDTA Not Reportable 09/02/16 05:00 Large Platelets Not Reportable 09/02/16 05:00 Giant Platelets Not Reportable 09/02/16 05:00 Platelet Satelliting Not Reportable 09/02/16 05:00 Plt Morphology Comment Not Reportable 09/02/16 05:00 RBC Morphology Not Reportable 09/02/16 05:00 Dimorphic RBCs Not Reportable 09/02/16 05:00 Polychromasia Rare 09/02/16 05:00 Hypochromasia Not Reportable 09/02/16 05:00 Poikilocytosis Not Reportable 09/02/16 05:00 Anisocytosis 1+ 09/02/16 05:00 Microcytosis Not Reportable 09/02/16 05:00 Macrocytosis 1+ 09/02/16 05:00 Spherocytes Not Reportable 09/02/16 05:00 Pappenheimer Bodies Not Reportable 09/02/16 05:00 Sickle Cells Not Reportable 09/02/16 05:00 Target Cells Not Reportable 09/02/16 05:00 Tear Drop Cells Not Reportable 09/02/16 05:00 Ovalocytes Not Reportable 09/02/16 05:00 Helmet Cells Not Reportable 09/02/16 05:00 [place] Bodies Not Reportable 09/02/16 05:00 [place] Rings Not Reportable 09/02/16 05:00 Dana Cells Not Reportable 09/02/16 05:00 Bite Cells Not Reportable 09/02/16 05:00 Crenated Cell Not Reportable 09/02/16 05:00 Elliptocytes Not Reportable 09/02/16 05:00 Acanthocytes (Spur) Not Reportable 09/02/16 05:00 Rouleaux Not Reportable 09/02/16 05:00 Hemoglobin C Crystals Not Reportable 09/02/16 05:00 Schistocytes Not Reportable 09/02/16 05:00 Malaria parasites Not Reportable 09/02/16 05:00 Manny Bodies Not Reportable 09/02/16 05:00 Hem Pathologist Commnt No 09/02/16 05:00 PT 13.8 Sec. (12.2-14.9) 09/10/16 05:10 INR 1.07 (0.87-1.13) 09/10/16 05:10 APTT 29.5 Sec. (24.2-36.6) 08/29/16 17:40 POC ABG pH 7.454 (7.35-7.45) H 09/09/16 12:33 POC ABG pCO2 38.4 (35-45) 09/09/16 12:33 POC ABG pO2 75 (80-105) L 09/09/16 12:33 POC ABG HCO3 27.0 09/09/16 12:33 POC ABG Total CO2 28 09/09/16 12:33 POC ABG O2 Sat 96 09/09/16 12:33 POC ABG Base Excess 3 09/09/16 12:33 VBG pH 7.366 (7.320-7.420) 08/29/16 17:40 FiO2 30 % 09/09/16 12:33 Sodium 144 mmol/L (137-145) 09/14/16 06:24 Potassium 2.9 mmol/L (3.6-5.0) L* 09/14/16 06:24 Chloride 107.3 mmol/L (98-107) H 09/14/16 06:24 Carbon Dioxide 26 mmol/L (22-30) 09/14/16 06:24 Anion Gap 14 mmol/L 09/14/16 06:24 BUN 26 mg/dL (7-17) H 09/14/16 06:24 Creatinine 0.4 mg/dL (0.7-1.2) L 09/14/16 06:24 Estimated GFR > 60 ml/min 09/14/16 06:24 BUN/Creatinine Ratio 65.00 % 09/14/16 06:24 Glucose 169 mg/dL (65-100) H 09/14/16 06:24 POC Glucose 175 (70-105) H 09/14/16 05:34 Lactic Acid 1.90 mmol/L (0.7-2.0) 09/07/16 15:00 Calcium 7.5 mg/dL (8.4-10.2) L 09/14/16 06:24 Phosphorus 3.60 mg/dL (2.5-4.5) 08/29/16 21:59 Magnesium 1.80 mg/dL (1.7-2.3) 09/13/16 05:50 Total Bilirubin 0.70 mg/dL (0.1-1.2) 09/11/16 05:00 AST 167 units/L (5-40) H 09/11/16 05:00 ALT 145 units/L (7-56) H 09/11/16 05:00 Alkaline Phosphatase 631 units/L (35-129) H 09/11/16 05:00 Ammonia 39.0 umol/L (25-60) 09/07/16 15:00 Total Creatine Kinase 36 units/L (30-135) 09/06/16 11:07 CK-MB (CK-2) < 1.0 ng/mL (0.0-4.0) 09/06/16 11:07 CK-MB (CK-2) Rel Index 2.7 (0-4) 09/06/16 11:07 Troponin T 0.080 ng/mL (0.00-0.029) H 09/06/16 11:07 C-Reactive Protein 10.20 mg/dL (0.00-1.30) H 08/30/16 22:20 NT-Pro-B Natriuret Pep 1712 pg/mL (0-900) H 08/29/16 17:40 Total Protein 5.1 g/dL (6.3-8.2) L 09/11/16 05:00 Albumin 1.6 g/dL (3.9-5) L 09/11/16 05:00 Albumin/Globulin Ratio 0.5 % 09/11/16 05:00 Prealbumin 0.120 g/L (0.200-0.400) L 08/29/16 21:59 Triglycerides 225 mg/dL (2-149) H 08/29/16 17:40 Cholesterol 130 mg/dL (50-199) 08/29/16 17:40 LDL Cholesterol Direct 82 mg/dL (50-130) 08/29/16 17:40 HDL Cholesterol 3 mg/dL (40-59) L 08/29/16 17:40 Cholesterol/HDL Ratio 43.33 % 08/29/16 17:40 TSH 5.220 mlU/mL (0.270-4.200) H 09/09/16 18:10 Urine Color Yellow (Yellow) 08/31/16 15:37 Urine Turbidity Clear (Clear) 08/31/16 15:37 Urine pH 5.0 (5.0-7.0) 08/31/16 15:37 Ur Specific [place] 1.009 (1.003-1.030) 08/31/16 15:37 Urine Protein <15 mg/dl mg/dL (Negative) 08/31/16 15:37 Urine Glucose (UA) Neg mg/dL (Negative) 08/31/16 15:37 Urine Ketones Neg mg/dL (Negative) 08/31/16 15:37 Urine Blood Sm (Negative) 08/31/16 15:37 Urine Nitrite Neg (Negative) 08/31/16 15:37 Urine Bilirubin Neg (Negative) 08/31/16 15:37 Urine Urobilinogen < 2.0 mg/dL (<2.0) 08/31/16 15:37 Ur Leukocyte Esterase Sm (Negative) 08/31/16 15:37 Urine WBC (Auto) 3.0 /HPF (0.0-6.0) 08/31/16 15:37 Urine RBC (Auto) 1.0 /HPF (0.0-6.0) 08/31/16 15:37 U Epithel Cells (Auto) < 1.0 /HPF (0-13.0) 08/31/16 15:37 Urine Bacteria (Auto) 1+ /HPF (Negative) 08/31/16 15:37 Hyaline Casts 5 /LPF 08/31/16 15:37 Urine Mucus Few /HPF 08/31/16 15:37 Blood Type O POSITIVE 09/08/16 11:00 Antibody Screen TNR 09/08/16 11:00 PATRICK Antibody Screen Negative 09/08/16 11:00 Crossmatch See Detail 09/08/16 11:00
[2016-09-14] MEDS: PROTONIX PO SCH (09:30)
[2016-09-14] MEDS: KEPPRA PO SCH ×2 (09:30→22:00)
[2016-09-14] MEDS: ROCEPHIN/NS 1 GM/50 ML 1 GM/50 ML BAG IV SCH (09:46)
[2016-09-14] MEDS: LASIX IV SCH (09:46)
[2016-09-14] MEDS: FERROUS SULFATE PO SCH (09:46)
[2016-09-14] MEDS: LOVENOX SUB-Q SCH (09:46)
[2016-09-14] MEDS: SYNTHROID IV SCH (09:46)
[2016-09-14] MEDS: POTASSIUM CHLORIDE FEEDTUBE SCH (09:47)
[2016-09-14] MEDS: FOLVITE PO SCH (09:47)
[2016-09-14] MEDS: KCL 20MEQ/100ML 20 MEQ/100 ML BAG IV SCH ×2 (10:00→11:30)
--- NOTE | 2016-09-14 10:21 | Progress Note ---
Assessment and Plan - Patient Problems (1) RORY (acute kidney injury) Current Visit: No Status: Acute Plan to address problem: Acute Kidney Injury is hemodynamically mediated in the setting of hypotension / shock. Renal function has improved. Continue current treatment. Follow renal function. (2) Hypokalemia Current Visit: Yes Status: Acute Plan to address problem: Replete K. (3) Shock Current Visit: Yes Status: Acute Plan to address problem: S/p Levophed. (4) Respiratory failure Current Visit: Yes Status: Acute Qualifiers: Chronicity: C Respiratory failure complication: R Plan to address problem: On vent. (5) Altered mental status Current Visit: Yes Status: Acute Qualifiers: Altered mental status type: unspecified Coma depth: C Coma timing: C Qualified Code(s): R41.82 - Altered mental status, unspecified (6) Anemia Current Visit: Yes Status: Acute Qualifiers: Anemia type: unspecified type Iron deficiency anemia type: I Vitamin B12 deficiency anemia type: V Folate deficiency anemia type: F Bone marrow failure anemia type: B Hemolytic anemia type: H Other causes of anemia: O Qualified Code(s): D64.9 - Anemia, unspecified Subjective Date of service: 09/14/16 Principal diagnosis: Acute Hypoxemic Hypercapnic Resp Failure; Severe Sepsis Interval history: Patient remain on the vent. Objective - Vital Signs Vital signs: Vital Signs - 12hr 09/13/16 09/13/16 09/13/16 23:00 23:40 23:48 Temperature Pulse Rate 82 72 82 Pulse Rate [ Anterior Bilateral Throughout] Respiratory 19 19 Rate Respiratory Rate [Anterior Bilateral Throughout] Blood Pressure 68/48 74/18 68/48 O2 Sat by Pulse 96 100 Oximetry 09/14/16 09/14/16 09/14/16 00:00 00:30 00:50 Temperature 97.1 F L Pulse Rate 60 61 80 Pulse Rate [ Anterior Bilateral Throughout] Respiratory 13 20 Rate Respiratory Rate [Anterior Bilateral Throughout] Blood Pressure 253/167 135/87 242/197 O2 Sat by Pulse 100 99 100 Oximetry 09/14/16 09/14/16 09/14/16 01:00 01:30 02:00 Temperature Pulse Rate 55 L 57 L 59 L Pulse Rate [ Anterior Bilateral Throughout] Respiratory 20 20 20 Rate Respiratory Rate [Anterior Bilateral Throughout] Blood Pressure 135/47 135/47 147/68 O2 Sat by Pulse 99 99 100 Oximetry 09/14/16 09/14/16 09/14/16 02:06 02:21 02:30 Temperature Pulse Rate 49 L Pulse Rate [ 60 62 Anterior Bilateral Throughout] Respiratory 20 Rate Respiratory 20 20 Rate [Anterior Bilateral Throughout] Blood Pressure 147/68 O2 Sat by Pulse 100 Oximetry 09/14/16 09/14/16 09/14/16 03:00 03:30 04:00 Temperature 96.8 F L Pulse Rate 67 69 74 Pulse Rate [ Anterior Bilateral Throughout] Respiratory 16 21 20 Rate Respiratory Rate [Anterior Bilateral Throughout] Blood Pressure 147/68 178/58 O2 Sat by Pulse 100 100 99 Oximetry 09/14/16 09/14/16 09/14/16 04:30 05:00 05:30 Temperature Pulse Rate 77 73 77 Pulse Rate [ Anterior Bilateral Throughout] Respiratory 19 19 19 Rate Respiratory Rate [Anterior Bilateral Throughout] Blood Pressure 178/47 129/24 O2 Sat by Pulse 100 96 100 Oximetry 09/14/16 09/14/16 09/14/16 06:00 06:02 06:22 Temperature Pulse Rate 84 58 L 76 Pulse Rate [ Anterior Bilateral Throughout] Respiratory 22 Rate Respiratory Rate [Anterior Bilateral Throughout] Blood Pressure 129/24 134/91 O2 Sat by Pulse 100 100 Oximetry 09/14/16 09/14/16 09/14/16 06:30 07:00 07:30 Temperature Pulse Rate 62 59 L 52 L Pulse Rate [ Anterior Bilateral Throughout] Respiratory 19 21 20 Rate Respiratory Rate [Anterior Bilateral Throughout] Blood Pressure 129/24 146/90 146/90 O2 Sat by Pulse 100 100 100 Oximetry 09/14/16 09/14/16 09/14/16 08:00 08:27 08:42 Temperature 97.3 F L Pulse Rate 67 52 L Pulse Rate [ 52 L 56 L Anterior Bilateral Throughout] Respiratory 16 21 Rate Respiratory 21 21 Rate [Anterior Bilateral Throughout] Blood Pressure 134/47 134/47 O2 Sat by Pulse 100 100 Oximetry - General Appearance General appearance: well-developed, well-nourished, appears stated age, obese, intubated (FiO2 30%) EENT: ATNC Neck: supple Respiratory: Present: Other (coarse breath sounds) Cardiology: regular, S1S2, no murmurs Gastrointestinal: normoactive bowel sounds, no tenderness, obese Integumentary: no rash Neurologic: obtunded Musculoskeletal: other (2+ edema of both LEs) - Lab 09/15/16 07:57 09/15/16 07:57 Most recent lab results Calcium 7.5 mg/dL (8.4-10.2) L 09/14/16 06:24 Phosphorus 3.60 mg/dL (2.5-4.5) 08/29/16 21:59 Magnesium 1.80 mg/dL (1.7-2.3) 09/13/16 05:50
--- NOTE | 2016-09-14 10:38 | Progress Note ---
Assessment and Plan Altered mental status Acute respiratory failure intubated on the vent Lactic acidosis Anemia requiring blood transfusion Obesity Decubitus ulcers Sepsis Diabetes AND/DNR status EF 50-55% on echo 06/2016. Conservative cardiac management. Subjective Date of service: 09/14/16 Principal diagnosis: Acute Hypoxemic Hypercapnic Resp Failure; Severe Sepsis Interval history: Patient remains intubated on the vent. Objective Vital Signs Temp Pulse Pulse Resp Resp BP Pulse Ox 09/14/16 08:42 56 L 21 09/14/16 08:27 52 L 52 L 21 21 134/47 100 09/14/16 08:00 97.3 F L 67 16 134/47 100 09/14/16 07:30 52 L 20 146/90 100 09/14/16 07:00 59 L 21 146/90 100 09/14/16 06:30 62 19 129/24 100 09/14/16 06:22 76 134/91 100 09/14/16 06:02 58 L 09/14/16 06:00 84 22 129/24 100 09/14/16 05:30 77 19 129/24 100 09/14/16 05:00 73 19 178/47 96 09/14/16 04:30 77 19 100 09/14/16 04:00 96.8 F L 74 20 178/58 99 09/14/16 03:30 69 21 100 09/14/16 03:00 67 16 147/68 100 09/14/16 02:30 49 L 20 147/68 100 09/14/16 02:21 62 20 09/14/16 02:06 60 20 09/14/16 02:00 59 L 20 147/68 100 09/14/16 01:30 57 L 20 135/47 99 09/14/16 01:00 55 L 20 135/47 99 09/14/16 00:50 80 242/197 100 09/14/16 00:30 61 20 135/87 99 09/14/16 00:00 97.1 F L 60 13 253/167 100 09/13/16 23:48 82 68/48 09/13/16 23:40 72 19 74/18 100 09/13/16 23:00 82 19 68/48 96 09/13/16 22:00 58 L 21 142/100 83 L 09/13/16 21:00 80 21 124/100 100 09/13/16 20:00 98.6 F 61 11 L 94/22 92 09/13/16 19:49 59 L 20 09/13/16 19:34 57 L 20 09/13/16 19:27 66 94/22 100 09/13/16 19:00 67 19 115/38 36 L 09/13/16 18:00 65 20 140/98 36 L 09/13/16 17:00 68 20 140/98 100 09/13/16 16:59 64 21 09/13/16 16:45 68 19 09/13/16 16:00 97.3 F L 64 16 139/107 100 09/13/16 15:50 65 21 140/116 100 09/13/16 15:00 62 19 140/116 97 09/13/16 14:00 78 17 154/73 87 09/13/16 13:00 73 17 154/73 100 09/13/16 12:00 97.3 F L 70 16 163/97 99 09/13/16 11:52 79 18 100 09/13/16 11:00 67 18 163/97 98 - Physical Examination General: Other (intubated on the vent) Cardiac: Positive: Reg Rate and Rhythm - Labs and Meds CBC 09/14/16 Range/Units 06:24 WBC 8.0 (4.5-11.0) K/mm3 RBC 2.82 L (3.65-5.03) M/mm3 Hgb 8.4 L (10.1-14.3) gm/dl Hct 25.7 L (30.3-42.9) % Plt Count 183 (140-440) K/mm3 Comprehensive Metabolic Panel 09/13/16 09/14/16 Range/Units 15:07 06:24 Sodium 144 (137-145) mmol/L Potassium 2.8 L* 2.9 L* (3.6-5.0) mmol/L Chloride 107.3 H (98-107) mmol/L Carbon Dioxide 26 (22-30) mmol/L BUN 26 H (7-17) mg/dL Creatinine 0.4 L (0.7-1.2) mg/dL Glucose 169 H (65-100) mg/dL Calcium 7.5 L (8.4-10.2) mg/dL - Allied health notes Allied health notes reviewed: RT
--- NOTE | 2016-09-14 11:37 | Progress Note ---
Assessment and Plan (1) Respiratory failure Current Visit: Yes Status: Acute Qualifiers: Chronicity: C Respiratory failure complication: R Plan to address problem: - continue daytime PSV trials as tolerated - VAP bundle addressed - continue to Wean FIO2 for O2 sats>92% - continue VTE prophylaxis (SCD's re: thrombocytopenia) - continue Stress ulcer prophylaxis (Pantoprazole) - continuing sedation vacations while watching for any obvious seizure activity - continue Lung protective strategies - continue gentle diuresis now with better BP's and stopped IVF - she needs a tracheostomy and consult placed - LTAC evaluation ongoing and family refuses to sign for tracheostomy in meantime (2) Shock Current Visit: Yes Status: Acute Plan to address problem: - Treated as septic shock secondary to HCAP - off levophed now - continue strict glycemic control - completed AB's course; trending WBC - ID following - continue stress dosed solucortef - continue midodrine for now (3) Acute on chronic diastolic (congestive) heart failure Current Visit: No Status: Acute Plan to address problem: - Documented EF 55% - continue gentle diuresis - Continue to monitoring renal function and electrolyte profile closely - continue to monitor urine output, electrolyte profile (4) Altered mental status Current Visit: Yes Status: Acute Qualifiers: Altered mental status type: unspecified Coma depth: C Coma timing: C Qualified Code(s): R41.82 - Altered mental status, unspecified Plan to address problem: - Neurology following - on keppra - weaned off ativan and will use prn now - TSH elevated and started on low dose levoxyl (5) Morbid obesity Current Visit: Yes Status: Acute Qualifiers: Obesity type: unspecified obesity type Qualified Code(s): E66.01 - Morbid ( severe) obesity due to excess calories - weight loss strategies once more stable - caloric intake per radio electrician at this point (6) Anemia Current Visit: Yes Status: Acute Qualifiers: Anemia type: unspecified type Iron deficiency anemia type: I Vitamin B12 deficiency anemia type: V Folate deficiency anemia type: F Bone marrow failure anemia type: B Hemolytic anemia type: H Other causes of anemia: O Qualified Code(s): D64.9 - Anemia, unspecified Plan to address problem: - no more coffee grounds noted - continuing PPI therapy - increased reglan frequency - will resume trickle feeding and consider addition of erhythromycin for GI motility issues (7) Status epilepticus Current Visit: Yes Status: Acute Plan to address problem: - Continue AEDs - Neurology following - no obvious clinical seizure activity (8) 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 - This could be secondary to an intra-cranial process, however unable to obtain neuro-imaging, patient's weight exceeds allowable maximum (9) Discharge planning issues Current Visit: Yes Status: Acute Plan to address problem: - Continue current care. - need to determine appropriate power of support services tech / legal healthcare marketing development representative prior to any tentative withdrawal of care - son came by and signed DNR order however no consensus on hospice care / withdrawal - transfer to LTAC once bed available (tentatively in am) ..she remains critically ill on life sustaining interventions including MVS and at high risk for further deterioration including ....32' CCT Subjective Date of service: 09/14/16 Principal diagnosis: Acute Hypoxemic Hypercapnic Resp Failure; Severe Sepsis Interval history: Seen and examined at bedside; 24 hour events reviewed; nursing and respiratory care staff consulted; no adverse overnight events reported to me; remains on MVS ; tolerating PSV trials; AMS is persistent; no emesis but tube feeds noted in oropharynx Objective Vital Signs - 12hr 09/13/16 09/13/16 09/14/16 23:40 23:48 00:00 Temperature 97.1 F L Pulse Rate 72 82 60 Pulse Rate [ Anterior Bilateral Throughout] Respiratory 19 13 Rate Respiratory Rate [Anterior Bilateral Throughout] Blood Pressure 74/18 68/48 253/167 O2 Sat by Pulse 100 100 Oximetry 09/14/16 09/14/16 09/14/16 00:30 00:50 01:00 Temperature Pulse Rate 61 80 55 L Pulse Rate [ Anterior Bilateral Throughout] Respiratory 20 20 Rate Respiratory Rate [Anterior Bilateral Throughout] Blood Pressure 135/87 242/197 135/47 O2 Sat by Pulse 99 100 99 Oximetry 09/14/16 09/14/16 09/14/16 01:30 02:00 02:06 Temperature Pulse Rate 57 L 59 L Pulse Rate [ 60 Anterior Bilateral Throughout] Respiratory 20 20 Rate Respiratory 20 Rate [Anterior Bilateral Throughout] Blood Pressure 135/47 147/68 O2 Sat by Pulse 99 100 Oximetry 09/14/16 09/14/16 09/14/16 02:21 02:30 03:00 Temperature Pulse Rate 49 L 67 Pulse Rate [ 62 Anterior Bilateral Throughout] Respiratory 20 16 Rate Respiratory 20 Rate [Anterior Bilateral Throughout] Blood Pressure 147/68 147/68 O2 Sat by Pulse 100 100 Oximetry 09/14/16 09/14/16 09/14/16 03:30 04:00 04:30 Temperature 96.8 F L Pulse Rate 69 74 77 Pulse Rate [ Anterior Bilateral Throughout] Respiratory 21 20 19 Rate Respiratory Rate [Anterior Bilateral Throughout] Blood Pressure 178/58 O2 Sat by Pulse 100 99 100 Oximetry 09/14/16 09/14/16 09/14/16 05:00 05:30 06:00 Temperature Pulse Rate 73 77 84 Pulse Rate [ Anterior Bilateral Throughout] Respiratory 19 19 22 Rate Respiratory Rate [Anterior Bilateral Throughout] Blood Pressure 178/47 129/24 129/24 O2 Sat by Pulse 96 100 100 Oximetry 09/14/16 09/14/16 09/14/16 06:02 06:22 06:30 Temperature Pulse Rate 58 L 76 62 Pulse Rate [ Anterior Bilateral Throughout] Respiratory 19 Rate Respiratory Rate [Anterior Bilateral Throughout] Blood Pressure 134/91 129/24 O2 Sat by Pulse 100 100 Oximetry 09/14/16 09/14/16 09/14/16 07:00 07:30 08:00 Temperature 97.3 F L Pulse Rate 59 L 52 L 67 Pulse Rate [ Anterior Bilateral Throughout] Respiratory 21 20 16 Rate Respiratory Rate [Anterior Bilateral Throughout] Blood Pressure 146/90 146/90 134/47 O2 Sat by Pulse 100 100 100 Oximetry 09/14/16 09/14/16 09/14/16 08:27 08:30 08:42 Temperature Pulse Rate 52 L 63 Pulse Rate [ 52 L 56 L Anterior Bilateral Throughout] Respiratory 21 17 Rate Respiratory 21 21 Rate [Anterior Bilateral Throughout] Blood Pressure 134/47 134/47 O2 Sat by Pulse 100 100 Oximetry 09/14/16 09/14/16 09/14/16 09:00 09:30 10:00 Temperature Pulse Rate 75 79 84 Pulse Rate [ Anterior Bilateral Throughout] Respiratory 21 18 20 Rate Respiratory Rate [Anterior Bilateral Throughout] Blood Pressure 134/47 202/77 131/75 O2 Sat by Pulse 99 100 100 Oximetry 09/14/16 09/14/16 09/14/16 10:30 11:00 11:13 Temperature Pulse Rate 82 79 80 Pulse Rate [ Anterior Bilateral Throughout] Respiratory 20 20 18 Rate Respiratory Rate [Anterior Bilateral Throughout] Blood Pressure 131/75 131/75 132/108 O2 Sat by Pulse 88 94 100 Oximetry Constitutional: no acute distress, other (lethargic) Eyes: non-icteric ENT: oropharynx moist Neck: supple, no lymphadenopathy Effort: mildly labored Ascultation: Bilateral: diminished breath sounds (bases), rales Cardiovascular: regular rate and rhythm Gastrointestinal: hypoactive bowel sounds, soft, non-tender, non-distended Integumentary: normal Extremities: no cyanosis, pulses normal, no ischemia or petechiae, edema (1++) Neurologic: unable to assess, other (lethargic) Psychiatric: other (sedated) CBC and BMP: 09/14/16 06:24 09/14/16 06:24 ABG, PT/INR, D-dimer: ABG POC ABG pH 7.454 (7.35-7.45) H 09/09/16 12:33 POC ABG pCO2 38.4 (35-45) 09/09/16 12:33 POC ABG pO2 75 (80-105) L 09/09/16 12:33 POC ABG HCO3 27.0 09/09/16 12:33 POC ABG Total CO2 28 09/09/16 12:33 POC ABG O2 Sat 96 09/09/16 12:33 PT/INR, D-dimer PT 13.8 Sec. (12.2-14.9) 09/10/16 05:10 INR 1.07 (0.87-1.13) 09/10/16 05:10 Abnormal lab findings: Abnormal Labs 08/29/16 08/30/16 08/30/16 21:59 00:16 05:39 WBC RBC Hgb Hct MCH MCHC RDW Plt Count Seg Neutrophils % Seg Neuts % (Manual) Nucleated RBC % Seg Neutrophils # Seg Neutrophils # Man PT INR POC ABG pH POC ABG pCO2 POC ABG pO2 Sodium Potassium Chloride Carbon Dioxide BUN Creatinine Glucose POC Glucose 106 H 128 H Lactic Acid Calcium Total Bilirubin AST ALT Alkaline Phosphatase Ammonia Troponin T C-Reactive Protein Total Protein Albumin Prealbumin 0.120 L TSH Crossmatch 08/30/16 08/30/16 08/30/16 10:30 10:30 11:12 WBC 11.1 H RBC 3.16 L Hgb 8.7 L Hct 29.9 L MCH MCHC 29 L RDW 25.0 H Plt Count Seg Neutrophils % 78.6 H Seg Neuts % (Manual) Nucleated RBC % Seg Neutrophils # 8.7 H Seg Neutrophils # Man PT INR POC ABG pH POC ABG pCO2 POC ABG pO2 Sodium 135 L Potassium Chloride Carbon Dioxide 20 L BUN Creatinine 1.5 H Glucose 148 H POC Glucose 142 H Lactic Acid Calcium 7.2 L Total Bilirubin 1.30 H AST 143 H ALT Alkaline Phosphatase 392 H Ammonia Troponin T C-Reactive Protein Total Protein 6.1 L Albumin 1.2 L Prealbumin TSH Crossmatch 08/30/16 08/30/16 08/30/16 17:41 18:03 18:18 WBC RBC Hgb Hct MCH MCHC RDW Plt Count Seg Neutrophils % Seg Neuts % (Manual) Nucleated RBC % Seg Neutrophils # Seg Neutrophils # Man PT INR POC ABG pH 7.316 L POC ABG pCO2 POC ABG pO2 44 L 59 L Sodium Potassium Chloride Carbon Dioxide BUN Creatinine Glucose POC Glucose 150 H Lactic Acid Calcium Total Bilirubin AST ALT Alkaline Phosphatase Ammonia Troponin T C-Reactive Protein Total Protein Albumin Prealbumin TSH Crossmatch 08/30/16 08/30/16 08/31/16 22:20 22:20 00:11 WBC RBC Hgb Hct MCH MCHC RDW Plt Count Seg Neutrophils % Seg Neuts % (Manual) Nucleated RBC % Seg Neutrophils # Seg Neutrophils # Man PT INR POC ABG pH POC ABG pCO2 POC ABG pO2 Sodium Potassium Chloride Carbon Dioxide BUN Creatinine Glucose POC Glucose 133 H Lactic Acid 2.30 H* Calcium Total Bilirubin AST ALT Alkaline Phosphatase Ammonia Troponin T C-Reactive Protein 10.20 H Total Protein Albumin Prealbumin TSH Crossmatch 08/31/16 08/31/16 08/31/16 04:20 04:20 04:20 WBC 18.3 H RBC 3.19 L Hgb 8.8 L Hct 30.0 L MCH 27 L MCHC 29 L RDW 23.9 H Plt Count Seg Neutrophils % Seg Neuts % (Manual) Nucleated RBC % Seg Neutrophils # Seg Neutrophils # Man PT 16.8 H INR 1.37 H POC ABG pH POC ABG pCO2 POC ABG pO2 Sodium 136 L Potassium Chloride Carbon Dioxide 19 L BUN Creatinine 1.5 H Glucose 125 H POC Glucose Lactic Acid Calcium 7.0 L Total Bilirubin 1.50 H AST 131 H ALT Alkaline Phosphatase 431 H Ammonia Troponin T C-Reactive Protein Total Protein 6.2 L Albumin 1.2 L Prealbumin TSH Crossmatch 08/31/16 08/31/16 08/31/16 04:20 05:22 05:24 WBC RBC Hgb Hct MCH MCHC RDW Plt Count Seg Neutrophils % Seg Neuts % (Manual) Nucleated RBC % Seg Neutrophils # Seg Neutrophils # Man PT INR POC ABG pH POC ABG pCO2 POC ABG pO2 142 H Sodium Potassium Chloride Carbon Dioxide BUN Creatinine Glucose POC Glucose 123 H Lactic Acid Calcium Total Bilirubin AST ALT Alkaline Phosphatase Ammonia 70.0 H Troponin T C-Reactive Protein Total Protein Albumin Prealbumin TSH Crossmatch 08/31/16 08/31/16 08/31/16 12:10 15:45 17:38 WBC RBC Hgb Hct MCH MCHC RDW Plt Count Seg Neutrophils % Seg Neuts % (Manual) Nucleated RBC % Seg Neutrophils # Seg Neutrophils # Man PT INR POC ABG pH POC ABG pCO2 POC ABG pO2 Sodium 136 L Potassium Chloride Carbon Dioxide 21 L BUN Creatinine 1.5 H Glucose 160 H POC Glucose 147 H 151 H Lactic Acid Calcium 6.9 L Total Bilirubin AST ALT Alkaline Phosphatase Ammonia Troponin T 0.109 H* D C-Reactive Protein Total Protein Albumin Prealbumin TSH Crossmatch 09/01/16 09/01/16 09/01/16 00:09 04:00 04:00 WBC 14.8 H RBC 2.89 L Hgb 7.8 L Hct 27.2 L MCH 27 L MCHC 29 L RDW 24.4 H Plt Count Seg Neutrophils % Seg Neuts % (Manual) Nucleated RBC % Seg Neutrophils # Seg Neutrophils # Man PT 18.2 H INR 1.51 H POC ABG pH POC ABG pCO2 POC ABG pO2 Sodium Potassium Chloride Carbon Dioxide BUN Creatinine Glucose POC Glucose 192 H Lactic Acid Calcium Total Bilirubin AST ALT Alkaline Phosphatase Ammonia Troponin T C-Reactive Protein Total Protein Albumin Prealbumin TSH Crossmatch 09/01/16 09/01/16 09/01/16 04:00 05:28 11:28 WBC RBC Hgb Hct MCH MCHC RDW Plt Count Seg Neutrophils % Seg Neuts % (Manual) Nucleated RBC % Seg Neutrophils # Seg Neutrophils # Man PT INR POC ABG pH POC ABG pCO2 POC ABG pO2 Sodium Potassium Chloride Carbon Dioxide 20 L BUN Creatinine 1.6 H Glucose 183 H POC Glucose 189 H 207 H Lactic Acid Calcium 6.9 L Total Bilirubin 1.30 H AST 138 H ALT Alkaline Phosphatase 520 H Ammonia Troponin T C-Reactive Protein Total Protein 6.1 L Albumin 1.2 L Prealbumin TSH Crossmatch 09/01/16 09/01/16 09/02/16 16:56 23:49 05:00 WBC RBC Hgb Hct MCH MCHC RDW Plt Count Seg Neutrophils % Seg Neuts % (Manual) Nucleated RBC % Seg Neutrophils # Seg Neutrophils # Man PT 18.0 H INR 1.49 H POC ABG pH POC ABG pCO2 POC ABG pO2 Sodium Potassium Chloride Carbon Dioxide BUN Creatinine Glucose POC Glucose 250 H 307 H Lactic Acid Calcium Total Bilirubin AST ALT Alkaline Phosphatase Ammonia Troponin T C-Reactive Protein Total Protein Albumin Prealbumin TSH Crossmatch 09/02/16 09/02/16 09/02/16 05:00 05:00 05:45 WBC 12.3 H RBC 2.57 L Hgb 7.1 L Hct 23.4 L MCH MCHC RDW 23.9 H Plt Count Seg Neutrophils % Seg Neuts % (Manual) 72.0 H Nucleated RBC % 25.0 H Seg Neutrophils # Seg Neutrophils # Man 8.9 H PT INR POC ABG pH POC ABG pCO2 POC ABG pO2 Sodium Potassium Chloride Carbon Dioxide BUN Creatinine 1.4 H Glucose 299 H POC Glucose 327 H Lactic Acid Calcium 7.0 L Total Bilirubin AST ALT Alkaline Phosphatase Ammonia Troponin T C-Reactive Protein Total Protein Albumin Prealbumin TSH Crossmatch 09/02/16 09/02/16 09/02/16 12:22 17:22 23:24 WBC RBC Hgb Hct MCH MCHC RDW Plt Count Seg Neutrophils % Seg Neuts % (Manual) Nucleated RBC % Seg Neutrophils # Seg Neutrophils # Man PT INR POC ABG pH POC ABG pCO2 POC ABG pO2 Sodium Potassium Chloride Carbon Dioxide BUN Creatinine Glucose POC Glucose 310 H 358 H 286 H Lactic Acid Calcium Total Bilirubin AST ALT Alkaline Phosphatase Ammonia Troponin T C-Reactive Protein Total Protein Albumin Prealbumin TSH Crossmatch 09/03/16 09/03/16 09/03/16 04:10 04:10 04:10 WBC 11.8 H RBC 2.29 L Hgb 6.1 L Hct 21.0 L MCH 27 L MCHC 29 L RDW 24.1 H Plt Count Seg Neutrophils % Seg Neuts % (Manual) Nucleated RBC % Seg Neutrophils # Seg Neutrophils # Man PT 17.6 H INR 1.45 H POC ABG pH POC ABG pCO2 POC ABG pO2 Sodium Potassium Chloride Carbon Dioxide BUN Creatinine 1.4 H Glucose 301 H POC Glucose Lactic Acid Calcium 7.0 L Total Bilirubin AST ALT Alkaline Phosphatase Ammonia Troponin T C-Reactive Protein Total Protein Albumin Prealbumin TSH Crossmatch 09/03/16 09/03/16 09/03/16 05:59 11:36 17:42 WBC RBC Hgb Hct MCH MCHC RDW Plt Count Seg Neutrophils % Seg Neuts % (Manual) Nucleated RBC % Seg Neutrophils # Seg Neutrophils # Man PT INR POC ABG pH POC ABG pCO2 POC ABG pO2 Sodium Potassium Chloride Carbon Dioxide BUN Creatinine Glucose POC Glucose 351 H 285 H 259 H Lactic Acid Calcium Total Bilirubin AST ALT Alkaline Phosphatase Ammonia Troponin T C-Reactive Protein Total Protein Albumin Prealbumin TSH Crossmatch 09/03/16 09/04/16 09/04/16 23:00 04:27 05:36 WBC RBC Hgb Hct MCH MCHC RDW Plt Count Seg Neutrophils % Seg Neuts % (Manual) Nucleated RBC % Seg Neutrophils # Seg Neutrophils # Man PT INR POC ABG pH 7.544 H POC ABG pCO2 30.8 L POC ABG pO2 78 L Sodium Potassium Chloride Carbon Dioxide BUN Creatinine Glucose POC Glucose 192 H 228 H Lactic Acid Calcium Total Bilirubin AST ALT Alkaline Phosphatase Ammonia Troponin T C-Reactive Protein Total Protein Albumin Prealbumin TSH Crossmatch 09/04/16 09/04/16 09/04/16 06:37 06:37 06:39 WBC 21.0 H RBC 2.22 L Hgb 6.0 L Hct 20.1 L MCH 27 L MCHC RDW 24.3 H Plt Count Seg Neutrophils % Seg Neuts % (Manual) Nucleated RBC % Seg Neutrophils # Seg Neutrophils # Man PT 16.8 H INR 1.37 H POC ABG pH POC ABG pCO2 POC ABG pO2 Sodium Potassium Chloride Carbon Dioxide BUN Creatinine 1.4 H Glucose 201 H POC Glucose Lactic Acid Calcium 7.1 L Total Bilirubin AST ALT Alkaline Phosphatase Ammonia Troponin T C-Reactive Protein Total Protein Albumin Prealbumin TSH Crossmatch 09/04/16 09/04/16 09/04/16 12:14 15:47 17:41 WBC RBC Hgb Hct MCH MCHC RDW Plt Count Seg Neutrophils % Seg Neuts % (Manual) Nucleated RBC % Seg Neutrophils # Seg Neutrophils # Man PT INR POC ABG pH POC ABG pCO2 POC ABG pO2 Sodium Potassium Chloride Carbon Dioxide BUN Creatinine Glucose POC Glucose 176 H 218 H Lactic Acid Calcium Total Bilirubin AST ALT Alkaline Phosphatase Ammonia Troponin T C-Reactive Protein Total Protein Albumin Prealbumin TSH Crossmatch See Detail 09/04/16 09/04/16 09/05/16 21:59 23:48 04:30 WBC RBC Hgb Hct MCH MCHC RDW Plt Count Seg Neutrophils % Seg Neuts % (Manual) Nucleated RBC % Seg Neutrophils # Seg Neutrophils # Man PT 17.2 H INR 1.41 H POC ABG pH POC ABG pCO2 POC ABG pO2 Sodium Potassium Chloride Carbon Dioxide BUN Creatinine Glucose POC Glucose 170 H 121 H Lactic Acid Calcium Total Bilirubin AST ALT Alkaline Phosphatase Ammonia Troponin T C-Reactive Protein Total Protein Albumin Prealbumin TSH Crossmatch 09/05/16 09/05/16 09/05/16 04:30 04:30 05:09 WBC 31.9 H RBC 3.11 L Hgb 8.5 L Hct 28.3 L D MCH 27 L MCHC RDW 21.0 H Plt Count Seg Neutrophils % Seg Neuts % (Manual) Nucleated RBC % Seg Neutrophils # Seg Neutrophils # Man PT INR POC ABG pH 7.226 L POC ABG pCO2 61.6 H POC ABG pO2 68 L Sodium 134 L Potassium 5.5 H Chloride 96.6 L Carbon Dioxide BUN 23 H Creatinine 1.6 H Glucose 116 H POC Glucose Lactic Acid Calcium 7.1 L Total Bilirubin AST ALT Alkaline Phosphatase Ammonia Troponin T C-Reactive Protein Total Protein Albumin Prealbumin TSH Crossmatch 09/05/16 09/05/16 09/05/16 05:33 12:08 17:32 WBC RBC Hgb Hct MCH MCHC RDW Plt Count Seg Neutrophils % Seg Neuts % (Manual) Nucleated RBC % Seg Neutrophils # Seg Neutrophils # Man PT INR POC ABG pH POC ABG pCO2 POC ABG pO2 Sodium Potassium Chloride Carbon Dioxide BUN Creatinine Glucose POC Glucose 114 H 147 H 174 H Lactic Acid Calcium Total Bilirubin AST ALT Alkaline Phosphatase Ammonia Troponin T C-Reactive Protein Total Protein Albumin Prealbumin TSH Crossmatch 09/06/16 09/06/16 09/06/16 03:30 03:30 03:30 WBC 25.4 H RBC 2.57 L Hgb 7.2 L Hct 22.8 L MCH MCHC RDW 20.9 H Plt Count 138 L Seg Neutrophils % Seg Neuts % (Manual) Nucleated RBC % Seg Neutrophils # Seg Neutrophils # Man PT 16.4 H INR 1.33 H POC ABG pH POC ABG pCO2 POC ABG pO2 Sodium Potassium Chloride Carbon Dioxide BUN 36 H Creatinine 1.9 H Glucose POC Glucose Lactic Acid Calcium 7.2 L Total Bilirubin AST ALT Alkaline Phosphatase Ammonia Troponin T C-Reactive Protein Total Protein Albumin Prealbumin TSH Crossmatch 09/06/16 09/06/16 09/06/16 11:07 12:03 14:44 WBC RBC Hgb Hct MCH MCHC RDW Plt Count Seg Neutrophils % Seg Neuts % (Manual) Nucleated RBC % Seg Neutrophils # Seg Neutrophils # Man PT INR POC ABG pH POC ABG pCO2 POC ABG pO2 Sodium Potassium Chloride Carbon Dioxide BUN Creatinine Glucose POC Glucose 61 L 55 L Lactic Acid Calcium Total Bilirubin AST ALT Alkaline Phosphatase Ammonia Troponin T 0.080 H C-Reactive Protein Total Protein Albumin Prealbumin TSH Crossmatch 09/06/16 09/06/16 09/07/16 21:05 23:53 03:36 WBC RBC Hgb Hct MCH MCHC RDW Plt Count Seg Neutrophils % Seg Neuts % (Manual) Nucleated RBC % Seg Neutrophils # Seg Neutrophils # Man PT INR POC ABG pH POC ABG pCO2 POC ABG pO2 Sodium Potassium Chloride Carbon Dioxide BUN Creatinine Glucose POC Glucose 140 H 178 H 243 H Lactic Acid Calcium Total Bilirubin AST ALT Alkaline Phosphatase Ammonia Troponin T C-Reactive Protein Total Protein Albumin Prealbumin TSH Crossmatch 09/07/16 09/07/16 09/07/16 03:42 03:42 05:04 WBC 17.3 H RBC 2.69 L Hgb 7.6 L Hct 23.8 L MCH MCHC RDW 20.5 H Plt Count 137 L Seg Neutrophils % Seg Neuts % (Manual) Nucleated RBC % Seg Neutrophils # Seg Neutrophils # Man PT INR POC ABG pH POC ABG pCO2 POC ABG pO2 Sodium Potassium 3.3 L Chloride Carbon Dioxide BUN 38 H Creatinine 1.6 H Glucose 201 H POC Glucose 241 H Lactic Acid Calcium 7.4 L Total Bilirubin AST ALT Alkaline Phosphatase Ammonia Troponin T C-Reactive Protein Total Protein Albumin Prealbumin TSH Crossmatch 09/07/16 09/07/16 09/07/16 11:46 17:41 23:18 WBC RBC Hgb Hct MCH MCHC RDW Plt Count Seg Neutrophils % Seg Neuts % (Manual) Nucleated RBC % Seg Neutrophils # Seg Neutrophils # Man PT INR POC ABG pH POC ABG pCO2 POC ABG pO2 Sodium Potassium Chloride Carbon Dioxide BUN Creatinine Glucose POC Glucose 313 H 227 H 116 H Lactic Acid Calcium Total Bilirubin AST ALT Alkaline Phosphatase Ammonia Troponin T C-Reactive Protein Total Protein Albumin Prealbumin TSH Crossmatch 09/08/16 09/08/16 09/08/16 04:00 04:00 05:15 WBC 18.4 H RBC 2.43 L Hgb 6.9 L Hct 21.5 L MCH MCHC RDW 20.5 H Plt Count 119 L Seg Neutrophils % Seg Neuts % (Manual) Nucleated RBC % Seg Neutrophils # Seg Neutrophils # Man PT INR POC ABG pH 7.458 H POC ABG pCO2 POC ABG pO2 177 H Sodium Potassium 3.5 L Chloride Carbon Dioxide BUN 37 H Creatinine 1.3 H Glucose POC Glucose Lactic Acid Calcium 7.1 L Total Bilirubin AST ALT Alkaline Phosphatase Ammonia Troponin T C-Reactive Protein Total Protein Albumin Prealbumin TSH Crossmatch 09/08/16 09/08/16 09/08/16 11:00 15:58 23:16 WBC RBC Hgb Hct MCH MCHC RDW Plt Count Seg Neutrophils % Seg Neuts % (Manual) Nucleated RBC % Seg Neutrophils # Seg Neutrophils # Man PT INR POC ABG pH POC ABG pCO2 POC ABG pO2 113 H Sodium Potassium Chloride Carbon Dioxide BUN Creatinine Glucose POC Glucose 40 L Lactic Acid Calcium Total Bilirubin AST ALT Alkaline Phosphatase Ammonia Troponin T C-Reactive Protein Total Protein Albumin Prealbumin TSH Crossmatch See Detail 09/09/16 09/09/16 09/09/16 05:02 12:33 18:10 WBC RBC Hgb Hct MCH MCHC RDW Plt Count Seg Neutrophils % Seg Neuts % (Manual) Nucleated RBC % Seg Neutrophils # Seg Neutrophils # Man PT INR POC ABG pH 7.454 H POC ABG pCO2 POC ABG pO2 75 L Sodium Potassium Chloride Carbon Dioxide BUN Creatinine Glucose POC Glucose 59 L Lactic Acid Calcium Total Bilirubin AST ALT Alkaline Phosphatase Ammonia Troponin T C-Reactive Protein Total Protein Albumin Prealbumin TSH 5.220 H Crossmatch 09/09/16 09/09/16 09/09/16 18:10 18:10 18:42 WBC 17.0 H RBC 2.90 L Hgb 8.5 L Hct 26.1 L MCH MCHC RDW 17.9 H Plt Count 126 L Seg Neutrophils % Seg Neuts % (Manual) Nucleated RBC % Seg Neutrophils # Seg Neutrophils # Man PT INR POC ABG pH POC ABG pCO2 POC ABG pO2 Sodium Potassium Chloride Carbon Dioxide BUN 36 H Creatinine Glucose 133 H POC Glucose 148 H Lactic Acid Calcium 6.9 L Total Bilirubin AST 253 H ALT 184 H Alkaline Phosphatase 729 H Ammonia Troponin T C-Reactive Protein Total Protein 5.1 L Albumin 1.7 L Prealbumin TSH Crossmatch 09/09/16 09/10/16 09/10/16 23:22 05:10 11:43 WBC RBC Hgb Hct MCH MCHC RDW Plt Count Seg Neutrophils % Seg Neuts % (Manual) Nucleated RBC % Seg Neutrophils # Seg Neutrophils # Man PT INR POC ABG pH POC ABG pCO2 POC ABG pO2 Sodium Potassium Chloride Carbon Dioxide BUN 35 H Creatinine Glucose 240 H POC Glucose 170 H 268 H Lactic Acid Calcium 6.8 L Total Bilirubin AST 226 H ALT 171 H Alkaline Phosphatase 710 H Ammonia Troponin T C-Reactive Protein Total Protein 5.2 L Albumin 1.7 L Prealbumin TSH Crossmatch 09/10/16 09/11/16 09/11/16 17:51 01:07 05:00 WBC RBC Hgb Hct MCH MCHC RDW Plt Count Seg Neutrophils % Seg Neuts % (Manual) Nucleated RBC % Seg Neutrophils # Seg Neutrophils # Cristian PT INR POC ABG pH POC ABG pCO2 POC ABG pO2 Sodium Potassium 2.9 L* Chloride Carbon Dioxide BUN 35 H Creatinine Glucose 274 H POC Glucose 334 H 223 H Lactic Acid Calcium 6.9 L Total Bilirubin AST 167 H ALT 145 H Alkaline Phosphatase 631 H Ammonia Troponin T C-Reactive Protein Total Protein 5.1 L Albumin 1.6 L Prealbumin TSH Crossmatch 09/11/16 09/11/16 09/11/16 05:01 12:16 17:12 WBC RBC Hgb Hct MCH MCHC RDW Plt Count Seg Neutrophils % Seg Neuts % (Manual) Nucleated RBC % Seg Neutrophils # Seg Neutrophils # Man PT INR POC ABG pH POC ABG pCO2 POC ABG pO2 Sodium Potassium Chloride Carbon Dioxide BUN Creatinine Glucose POC Glucose 305 H 219 H 171 H Lactic Acid Calcium Total Bilirubin AST ALT Alkaline Phosphatase Ammonia Troponin T C-Reactive Protein Total Protein Albumin Prealbumin TSH Crossmatch 09/11/16 09/12/16 09/12/16 23:35 03:33 05:00 WBC 12.9 H RBC 2.81 L Hgb 8.2 L Hct 25.4 L MCH MCHC RDW 17.9 H Plt Count Seg Neutrophils % Seg Neuts % (Manual) Nucleated RBC % Seg Neutrophils # Seg Neutrophils # Man PT INR POC ABG pH POC ABG pCO2 POC ABG pO2 Sodium Potassium Chloride Carbon Dioxide BUN Creatinine Glucose POC Glucose 216 H 183 H Lactic Acid Calcium Total Bilirubin AST ALT Alkaline Phosphatase Ammonia Troponin T C-Reactive Protein Total Protein Albumin Prealbumin TSH Crossmatch 09/12/16 09/12/16 09/12/16 05:00 15:15 18:30 WBC RBC Hgb Hct MCH MCHC RDW Plt Count Seg Neutrophils % Seg Neuts % (Manual) Nucleated RBC % Seg Neutrophils # Seg Neutrophils # Man PT INR POC ABG pH POC ABG pCO2 POC ABG pO2 Sodium Potassium 3.0 L 3.4 L Chloride Carbon Dioxide BUN 33 H Creatinine 0.5 L Glucose POC Glucose 215 H Lactic Acid Calcium 7.0 L Total Bilirubin AST ALT Alkaline Phosphatase Ammonia Troponin T C-Reactive Protein Total Protein Albumin Prealbumin TSH Crossmatch 09/12/16 09/13/16 09/13/16 23:17 05:50 05:50 WBC RBC 2.93 L Hgb 8.8 L Hct 26.7 L MCH MCHC RDW 18.0 H Plt Count Seg Neutrophils % Seg Neuts % (Manual) Nucleated RBC % Seg Neutrophils # Seg Neutrophils # Man PT INR POC ABG pH POC ABG pCO2 POC ABG pO2 Sodium Potassium 2.6 L* D Chloride Carbon Dioxide BUN 29 H Creatinine 0.5 L Glucose 106 H POC Glucose 155 H Lactic Acid Calcium 7.3 L Total Bilirubin AST ALT Alkaline Phosphatase Ammonia Troponin T C-Reactive Protein Total Protein Albumin Prealbumin TSH Crossmatch 09/13/16 09/13/16 09/13/16 05:53 11:43 15:07 WBC RBC Hgb Hct MCH MCHC RDW Plt Count Seg Neutrophils % Seg Neuts % (Manual) Nucleated RBC % Seg Neutrophils # Seg Neutrophils # Man PT INR POC ABG pH POC ABG pCO2 POC ABG pO2 Sodium Potassium 2.8 L* Chloride Carbon Dioxide BUN Creatinine Glucose POC Glucose 119 H 129 H Lactic Acid Calcium Total Bilirubin AST ALT Alkaline Phosphatase Ammonia Troponin T C-Reactive Protein Total Protein Albumin Prealbumin TSH Crossmatch 06/07/2709/13/16 09/14/16 17:39 23:30 05:34 WBC RBC Hgb Hct MCH MCHC RDW Plt Count Seg Neutrophils % Seg Neuts % (Manual) Nucleated RBC % Seg Neutrophils # Seg Neutrophils # Man PT INR POC ABG pH POC ABG pCO2 POC ABG pO2 Sodium Potassium Chloride Carbon Dioxide BUN Creatinine Glucose POC Glucose 144 H 196 H 175 H Lactic Acid Calcium Total Bilirubin AST ALT Alkaline Phosphatase Ammonia Troponin T C-Reactive Protein Total Protein Albumin Prealbumin TSH Crossmatch 09/14/16 09/14/16 06:24 06:24 WBC RBC 2.82 L Hgb 8.4 L Hct 25.7 L MCH MCHC RDW 18.0 H Plt Count Seg Neutrophils % Seg Neuts % (Manual) Nucleated RBC % Seg Neutrophils # Seg Neutrophils # Man PT INR POC ABG pH POC ABG pCO2 POC ABG pO2 Sodium Potassium 2.9 L* Chloride 107.3 H Carbon Dioxide BUN 26 H Creatinine 0.4 L Glucose 169 H POC Glucose Lactic Acid Calcium 7.5 L Total Bilirubin AST ALT Alkaline Phosphatase Ammonia Troponin T C-Reactive Protein Total Protein Albumin Prealbumin TSH Crossmatch Allied health notes reviewed: RT
[2016-09-14] MEDS ORDERED: POTASSIUM CHLORIDE FEEDTUBE ONE (17:00)
[2016-09-14] MEDS: ATIVAN IV PRN (18:36)
[2016-09-14] MEDS: LEVEMIR SUB-Q SCH (22:00)
[2016-09-15] MEDS: REGLAN IV SCH ×4 (00:28→18:20)
[2016-09-15] MEDS: FLAGYL 500 MG/100 ML 500 MG/100 ML BAG IV SCH ×4 (00:29→23:51)
[2016-09-15] MEDS: NOVOLOG SUB-Q SCH ×7 (00:34→23:51)
[2016-09-15] MEDS: DUONEB 0.5 MG-3 MG/3 ML SOLN IH SCH ×4 (03:57→19:29)
[2016-09-15] MEDS: PROAMATINE PO SCH ×3 (05:33→22:16)
[2016-09-15] MEDS: LOPRESSOR PO SCH ×4 (05:51→22:20)
[2016-09-15 08:08] LABS: Hematocrit 28.2 % (30.3-42.9); Hemoglobin 9.2 gm/dl (10.1-14.3); Mean Corpuscular HGB Conc 33 % (30-34); Mean Corpuscular Hemoglobin 30 pg (28-32); Mean Corpuscular Volume 93 fl (79-97); Platelet Count 215 K/mm3 (140-440); Red Blood Count 3.04 M/mm3 (3.65-5.03); Red Cell Distribution Width 18.8 % (13.2-15.2); White Blood Count 8.6 K/mm3 (4.5-11.0)
[2016-09-15 08:24] LABS: Anion Gap 16 mmol/L; Blood Urea Nitrogen 26 mg/dL (7-17); Calcium 7.7 mg/dL (8.4-10.2); Carbon Dioxide 26 mmol/L (22-30); Chloride 107.2 mmol/L (98-107); Glucose 160 mg/dL (65-100); Potassium 3.8 mmol/L (3.6-5.0); Sodium 145 mmol/L (137-145)
--- NOTE | 2016-09-15 08:47 | Progress Note ---
Assessment and Plan - Patient Problems (1) RORY (acute kidney injury) Current Visit: No Status: Acute Plan to address problem: Acute Kidney Injury is hemodynamically mediated in the setting of hypotension / shock. Renal function has improved and stable. Follow renal function. (2) Hypokalemia Current Visit: Yes Status: Acute Plan to address problem: Replete K. (3) Shock Current Visit: Yes Status: Acute Plan to address problem: S/p Levophed. (4) Respiratory failure Current Visit: Yes Status: Acute Qualifiers: Chronicity: C Respiratory failure complication: R Plan to address problem: On vent. (5) Altered mental status Current Visit: Yes Status: Acute Qualifiers: Altered mental status type: unspecified Coma depth: C Coma timing: C Qualified Code(s): R41.82 - Altered mental status, unspecified (6) Anemia Current Visit: Yes Status: Acute Qualifiers: Anemia type: unspecified type Iron deficiency anemia type: I Vitamin B12 deficiency anemia type: V Folate deficiency anemia type: F Bone marrow failure anemia type: B Hemolytic anemia type: H Other causes of anemia: O Qualified Code(s): D64.9 - Anemia, unspecified Subjective Date of service: 09/15/16 Principal diagnosis: Acute Hypoxemic Hypercapnic Resp Failure; Severe Sepsis Interval history: Patient remain on the vent. Objective - Vital Signs Vital signs: Vital Signs - 12hr 09/14/16 09/14/16 09/14/16 21:00 21:16 21:30 Temperature Pulse Rate 68 63 59 L Pulse Rate [ Anterior Bilateral Throughout] Pulse Rate [ From Monitor] Respiratory 19 20 22 Rate Respiratory Rate [Anterior Bilateral Throughout] Blood Pressure 125/89 151/70 139/72 O2 Sat by Pulse 100 100 92 Oximetry 09/14/16 09/14/16 09/14/16 21:46 22:00 22:16 Temperature Pulse Rate 66 72 56 L Pulse Rate [ Anterior Bilateral Throughout] Pulse Rate [ From Monitor] Respiratory 17 19 20 Rate Respiratory Rate [Anterior Bilateral Throughout] Blood Pressure 139/72 151/70 149/52 O2 Sat by Pulse 100 100 Oximetry 09/14/16 09/14/16 09/14/16 22:30 22:46 23:00 Temperature Pulse Rate 57 L 57 L 53 L Pulse Rate [ Anterior Bilateral Throughout] Pulse Rate [ From Monitor] Respiratory 20 20 21 Rate Respiratory Rate [Anterior Bilateral Throughout] Blood Pressure 149/52 149/52 153/67 O2 Sat by Pulse 100 100 99 Oximetry 09/14/16 09/14/16 09/14/16 23:16 23:30 23:46 Temperature Pulse Rate 49 L 52 L 49 L Pulse Rate [ Anterior Bilateral Throughout] Pulse Rate [ From Monitor] Respiratory 21 21 20 Rate Respiratory Rate [Anterior Bilateral Throughout] Blood Pressure 153/67 153/67 153/67 O2 Sat by Pulse 100 100 100 Oximetry 09/15/16 09/15/16 09/15/16 00:00 00:16 00:30 Temperature 98.7 F Pulse Rate 56 L 52 L 51 L Pulse Rate [ Anterior Bilateral Throughout] Pulse Rate [ 73 From Monitor] Respiratory 20 20 20 Rate Respiratory Rate [Anterior Bilateral Throughout] Blood Pressure 152/59 152/59 152/59 O2 Sat by Pulse 98 100 100 Oximetry 09/15/16 09/15/16 09/15/16 00:46 01:00 01:16 Temperature Pulse Rate 50 L 59 L 63 Pulse Rate [ Anterior Bilateral Throughout] Pulse Rate [ From Monitor] Respiratory 19 21 20 Rate Respiratory Rate [Anterior Bilateral Throughout] Blood Pressure 152/59 138/76 138/76 O2 Sat by Pulse 100 99 100 Oximetry 09/15/16 09/15/16 09/15/16 01:30 01:46 02:00 Temperature Pulse Rate 57 L 60 58 L Pulse Rate [ Anterior Bilateral Throughout] Pulse Rate [ From Monitor] Respiratory 14 18 17 Rate Respiratory Rate [Anterior Bilateral Throughout] Blood Pressure 138/76 138/76 138/76 O2 Sat by Pulse 100 100 100 Oximetry 09/15/16 09/15/16 09/15/16 02:16 02:28 02:30 Temperature Pulse Rate 57 L 52 L Pulse Rate [ Anterior Bilateral Throughout] Pulse Rate [ From Monitor] Respiratory 22 21 Rate Respiratory Rate [Anterior Bilateral Throughout] Blood Pressure 162/69 162/69 138/76 O2 Sat by Pulse 100 100 100 Oximetry 09/15/16 09/15/16 09/15/16 02:33 02:45 02:46 Temperature Pulse Rate 58 L Pulse Rate [ 56 L 63 Anterior Bilateral Throughout] Pulse Rate [ From Monitor] Respiratory 18 Rate Respiratory 27 H 23 Rate [Anterior Bilateral Throughout] Blood Pressure 138/76 O2 Sat by Pulse 100 Oximetry 09/15/16 09/15/16 09/15/16 03:00 03:16 03:30 Temperature Pulse Rate 59 L 58 L 63 Pulse Rate [ Anterior Bilateral Throughout] Pulse Rate [ From Monitor] Respiratory 19 17 15 Rate Respiratory Rate [Anterior Bilateral Throughout] Blood Pressure 138/76 180/83 180/83 O2 Sat by Pulse 100 100 100 Oximetry 09/15/16 09/15/16 09/15/16 03:46 04:00 04:16 Temperature 97.4 F L Pulse Rate 61 63 79 Pulse Rate [ Anterior Bilateral Throughout] Pulse Rate [ 75 From Monitor] Respiratory 17 17 20 Rate Respiratory Rate [Anterior Bilateral Throughout] Blood Pressure 180/83 180/83 163/97 O2 Sat by Pulse 100 100 99 Oximetry 09/15/16 09/15/16 09/15/16 04:30 04:45 04:46 Temperature Pulse Rate 115 H 62 82 Pulse Rate [ Anterior Bilateral Throughout] Pulse Rate [ From Monitor] Respiratory 25 H 19 Rate Respiratory Rate [Anterior Bilateral Throughout] Blood Pressure 163/97 180/84 163/97 O2 Sat by Pulse 100 100 100 Oximetry 09/15/16 09/15/16 09/15/16 05:00 05:16 05:30 Temperature Pulse Rate 83 71 77 Pulse Rate [ Anterior Bilateral Throughout] Pulse Rate [ From Monitor] Respiratory 18 24 19 Rate Respiratory Rate [Anterior Bilateral Throughout] Blood Pressure 163/97 163/97 O2 Sat by Pulse 78 L 100 100 Oximetry 09/15/16 09/15/16 09/15/16 05:46 05:51 06:00 Temperature Pulse Rate 71 70 76 Pulse Rate [ Anterior Bilateral Throughout] Pulse Rate [ From Monitor] Respiratory 17 19 Rate Respiratory Rate [Anterior Bilateral Throughout] Blood Pressure 163/97 138/60 138/60 O2 Sat by Pulse 100 Oximetry 09/15/16 09/15/16 09/15/16 06:16 06:30 06:46 Temperature Pulse Rate 70 60 59 L Pulse Rate [ Anterior Bilateral Throughout] Pulse Rate [ From Monitor] Respiratory 19 14 17 Rate Respiratory Rate [Anterior Bilateral Throughout] Blood Pressure 101/23 101/23 101/23 O2 Sat by Pulse 63 L 100 Oximetry 09/15/16 09/15/16 09/15/16 07:00 07:16 07:30 Temperature Pulse Rate 59 L 59 L 55 L Pulse Rate [ Anterior Bilateral Throughout] Pulse Rate [ From Monitor] Respiratory 19 17 19 Rate Respiratory Rate [Anterior Bilateral Throughout] Blood Pressure 124/60 124/60 124/60 O2 Sat by Pulse 99 92 87 Oximetry 09/15/16 09/15/16 09/15/16 07:46 08:00 08:16 Temperature 98.5 F Pulse Rate 49 L 52 L 53 L Pulse Rate [ 50 L Anterior Bilateral Throughout] Pulse Rate [ From Monitor] Respiratory 17 18 15 Rate Respiratory 16 Rate [Anterior Bilateral Throughout] Blood Pressure 124/60 135/54 135/54 O2 Sat by Pulse 100 100 100 Oximetry - General Appearance General appearance: well-developed, well-nourished, appears stated age, obese, intubated (FiO2 30%) EENT: ATNC Neck: supple Respiratory: Present: Other (coarse breath sounds) Cardiology: S1S2, no murmurs Gastrointestinal: normoactive bowel sounds, obese Integumentary: no rash Neurologic: obtunded Musculoskeletal: other (2+ edema of both LEs noted) - Lab 09/15/16 07:57 09/15/16 07:57 Most recent lab results Calcium 7.7 mg/dL (8.4-10.2) L 09/15/16 07:57 Phosphorus 3.60 mg/dL (2.5-4.5) 08/29/16 21:59 Magnesium 1.80 mg/dL (1.7-2.3) 09/13/16 05:50
--- NOTE | 2016-09-15 09:14 | Progress Note ---
Assessment and Plan Altered mental status Acute respiratory failure intubated on the vent Lactic acidosis Anemia requiring blood transfusion Obesity Decubitus ulcers Sepsis Diabetes AND/DNR status EF 50-55% on echo 06/2016. Conservative cardiac management. Subjective Date of service: 09/15/16 Principal diagnosis: Acute Hypoxemic Hypercapnic Resp Failure; Severe Sepsis Interval history: Patient remains intubated on the vent. Objective Vital Signs Temp Pulse Pulse Pulse Resp Resp BP 09/15/16 08:25 47 L 09/15/16 08:16 53 L 15 135/54 09/15/16 08:00 98.5 F 52 L 50 L 18 16 135/54 09/15/16 07:46 49 L 17 124/60 09/15/16 07:30 55 L 19 124/60 09/15/16 07:16 59 L 17 124/60 09/15/16 07:00 59 L 19 124/60 09/15/16 06:46 59 L 17 101/23 09/15/16 06:30 60 14 101/23 09/15/16 06:16 70 19 101/23 09/15/16 06:00 76 19 138/60 09/15/16 05:51 70 138/60 09/15/16 05:46 71 17 163/97 09/15/16 05:30 77 19 163/97 09/15/16 05:16 71 24 09/15/16 05:00 83 18 163/97 09/15/16 04:46 82 19 163/97 09/15/16 04:45 62 180/84 09/15/16 04:30 115 H 25 H 163/97 09/15/16 04:16 79 20 163/97 09/15/16 04:00 97.4 F L 63 75 17 180/83 09/15/16 03:46 61 17 180/83 09/15/16 03:30 63 15 180/83 09/15/16 03:16 58 L 17 180/83 09/15/16 03:00 59 L 19 138/76 09/15/16 02:46 58 L 18 138/76 09/15/16 02:45 63 23 09/15/16 02:33 56 L 27 H 09/15/16 02:30 52 L 21 138/76 09/15/16 02:28 162/69 06/06/17 02:16 57 L 22 162/69 09/15/16 02:00 58 L 17 138/76 09/15/16 01:46 60 18 138/76 09/15/16 01:30 57 L 14 138/76 09/15/16 01:16 63 20 138/76 09/15/16 01:00 59 L 21 138/76 09/15/16 00:46 50 L 19 152/59 09/15/16 00:30 51 L 20 152/59 09/15/16 00:16 52 L 20 152/59 09/15/16 00:00 98.7 F 56 L 73 20 152/59 09/14/16 23:46 49 L 20 153/67 09/14/16 23:30 52 L 21 153/67 09/14/16 23:16 49 L 21 153/67 09/14/16 23:00 53 L 21 153/67 09/14/16 22:46 57 L 20 149/52 09/14/16 22:30 57 L 20 149/52 09/14/16 22:16 56 L 20 149/52 09/14/16 22:00 72 19 151/70 09/14/16 21:46 66 17 139/72 09/14/16 21:30 59 L 22 139/72 09/14/16 21:16 63 20 151/70 09/14/16 21:00 68 19 125/89 09/14/16 20:46 58 L 18 125/89 09/14/16 20:30 60 22 125/89 09/14/16 20:24 85 20 125/89 09/14/16 20:16 69 17 125/89 09/14/16 20:00 98.6 F 77 70 22 139/72 09/14/16 19:54 66 125/89 09/14/16 19:50 68 21 09/14/16 19:46 69 18 125/89 09/14/16 19:39 66 22 09/14/16 19:30 70 22 125/89 09/14/16 19:16 69 24 125/89 09/14/16 19:00 70 20 125/89 09/14/16 18:46 68 19 125/90 09/14/16 18:40 75 125/90 09/14/16 18:39 77 125/90 09/14/16 18:30 78 24 125/90 05 18:16 81 20 126/37 /05/17 18:00 92 H 24 126/37 09/14/16 17:46 95 H 32 H 126/37 05 17:30 84 21 126/37 /05/17 17:16 62 20 126/37 0517 17:00 62 21 126/37 05/17 16:46 59 L 22 116/36 0517 16:30 58 L 23 116/36 05/ 16:00 98.6 F 61 22 131/38 /05/17 15:45 67 20 05 15:30 57 L 17 131/38 09/14/16 15:07 61 20 09/14/16 15:06 61 20 131/38 09/14/16 15:00 61 20 131/38 09/14/16 14:30 68 20 135/36 05 14:00 62 20 139/51 09/14/16 13:30 56 L 19 139/51 09/14/16 13:00 75 20 136/64 05 12:59 74 136/64 09/14/16 12:30 78 20 136/64 09/14/16 12:00 98.5 F 79 19 136/64 09/14/16 11:30 68 19 132/108 09/14/16 11:13 80 18 132/108 09/14/16 11:00 79 20 131/75 09/14/16 10:30 82 20 131/75 09/14/16 10:00 84 20 131/75 09/14/16 09:30 79 18 202/77 Pulse Ox 09/15/16 08:25 09/15/16 08:16 100 09/15/16 08:00 100 09/15/16 07:46 100 09/15/16 07:30 87 09/15/16 07:16 92 09/15/16 07:00 99 09/15/16 06:46 09/15/16 06:30 100 09/15/16 06:16 63 L 09/15/16 06:00 09/15/16 05:51 09/15/16 05:46 100 09/15/16 05:30 100 09/15/16 05:16 100 09/15/16 05:00 78 L 09/15/16 04:46 100 09/15/16 04:45 100 09/15/16 04:30 100 09/15/16 04:16 99 09/15/16 04:00 100 09/15/16 03:46 100 09/15/16 03:30 100 09/15/16 03:16 100 09/15/16 03:00 100 09/15/16 02:46 100 09/15/16 02:45 09/15/16 02:33 09/15/16 02:30 100 09/15/16 02:28 100 09/15/16 02:16 100 09/15/16 02:00 100 09/15/16 01:46 100 09/15/16 01:30 100 09/15/16 01:16 100 09/15/16 01:00 99 09/15/16 00:46 100 09/15/16 00:30 100 09/15/16 00:16 100 09/15/16 00:00 98 09/14/16 23:46 100 09/14/16 23:30 100 09/14/16 23:16 100 09/14/16 23:00 99 09/14/16 22:46 100 09/14/16 22:30 100 09/14/16 22:16 100 09/14/16 22:00 09/14/16 21:46 100 09/14/16 21:30 92 09/14/16 21:16 100 09/14/16 21:00 100 09/14/16 20:46 76 L 09/14/16 20:30 100 09/14/16 20:24 67 L 09/14/16 20:16 94 09/14/16 20:00 100 09/14/16 19:54 100 09/14/16 19:50 09/14/16 19:46 100 09/14/16 19:39 09/14/16 19:30 100 09/14/16 19:16 100 09/14/16 19:00 100 09/14/16 18:46 100 09/14/16 18:40 09/14/16 18:39 09/14/16 18:30 100 09/14/16 18:16 97 09/14/16 18:00 09/14/16 17:46 90 09/14/16 17:30 100 09/14/16 17:16 100 09/14/16 17:00 99 09/14/16 16:46 100 09/14/16 16:30 99 09/14/16 16:00 100 09/14/16 15:45 09/14/16 15:30 100 09/14/16 15:07 09/14/16 15:06 100 09/14/16 15:00 100 09/14/16 14:30 100 09/14/16 14:00 100 09/14/16 13:30 85 09/14/16 13:00 93 09/14/16 12:59 09/14/16 12:30 100 09/14/16 12:00 83 L 09/14/16 11:30 94 09/14/16 11:13 100 09/14/16 11:00 94 09/14/16 10:30 88 09/14/16 10:00 100 09/14/16 09:30 100 - Physical Examination General: Other (intubated on the vent) Cardiac: Positive: Reg Rate and Rhythm - Labs and Meds CBC 09/15/16 Range/Units 07:57 WBC 8.6 (4.5-11.0) K/mm3 RBC 3.04 L (3.65-5.03) M/mm3 Hgb 9.2 L (10.1-14.3) gm/dl Hct 28.2 L (30.3-42.9) % Plt Count 215 (140-440) K/mm3 Comprehensive Metabolic Panel 09/14/16 09/15/16 Range/Units 14:50 07:57 Sodium 145 (137-145) mmol/L Potassium 3.3 L 3.8 (3.6-5.0) mmol/L Chloride 107.2 H (98-107) mmol/L Carbon Dioxide 26 (22-30) mmol/L BUN 26 H (7-17) mg/dL Creatinine 0.4 L (0.7-1.2) mg/dL Glucose 160 H (65-100) mg/dL Calcium 7.7 L (8.4-10.2) mg/dL - Allied health notes Allied health notes reviewed: RT
[2016-09-15] MEDS: ROCEPHIN/NS 1 GM/50 ML 1 GM/50 ML BAG IV SCH (09:17)
[2016-09-15] MEDS: LOVENOX SUB-Q SCH (09:18)
[2016-09-15] MEDS: SYNTHROID IV SCH (09:18)
[2016-09-15] MEDS: PROTONIX PO SCH (09:19)
[2016-09-15] MEDS: FERROUS SULFATE PO SCH (09:19)
[2016-09-15] MEDS: LASIX IV SCH (09:19)
[2016-09-15] MEDS: POTASSIUM CHLORIDE FEEDTUBE SCH (09:19)
[2016-09-15] MEDS: KEPPRA PO SCH ×2 (09:19→22:16)
[2016-09-15] MEDS: FOLVITE PO SCH (09:19)
--- NOTE | 2016-09-15 10:26 | Progress Note ---
Assessment and Plan (1) Respiratory failure Current Visit: Yes Status: Acute Qualifiers: Chronicity: C Respiratory failure complication: R Plan to address problem: - continue daytime PSV trials as tolerated - VAP bundle addressed - continue to Wean FIO2 for O2 sats>92% - continue VTE prophylaxis (SCD's re: thrombocytopenia) - continue Stress ulcer prophylaxis (Pantoprazole) - continuing sedation vacations while watching for any obvious seizure activity - continue Lung protective strategies - continue gentle diuresis now with better BP's and stopped IVF - she needs a tracheostomy and consult placed - LTAC evaluation ongoing and family refused to sign for tracheostomy in meantime (2) Shock Current Visit: Yes Status: Acute Plan to address problem: - Treated as septic shock secondary to HCAP - off levophed now - continue strict glycemic control - completed AB's course; trending WBC - ID following - tapering off stress steroids now - continue midodrine for now (3) Acute on chronic diastolic (congestive) heart failure Current Visit: No Status: Acute Plan to address problem: - Documented EF 55% - continue gentle diuresis - Continue to monitoring renal function and electrolyte profile closely - continue to monitor urine output, electrolyte profile (4) Altered mental status Current Visit: Yes Status: Acute Qualifiers: Altered mental status type: unspecified Coma depth: C Coma timing: C Qualified Code(s): R41.82 - Altered mental status, unspecified Plan to address problem: - Neurology following - on keppra - weaned off ativan and will use prn now - TSH elevated and started on low dose levoxyl (5) Morbid obesity Current Visit: Yes Status: Acute Qualifiers: Obesity type: unspecified obesity type Qualified Code(s): E66.01 - Morbid ( severe) obesity due to excess calories - weight loss strategies once more stable - caloric intake per newcomer hostess at this point (6) Anemia Current Visit: Yes Status: Acute Qualifiers: Anemia type: unspecified type Iron deficiency anemia type: I Vitamin B12 deficiency anemia type: V Folate deficiency anemia type: F Bone marrow failure anemia type: B Hemolytic anemia type: H Other causes of anemia: O Qualified Code(s): D64.9 - Anemia, unspecified Plan to address problem: - no more coffee grounds noted - continuing PPI therapy - increased reglan frequency - advance tube feeds to goal as tolerated (7) Status epilepticus Current Visit: Yes Status: Acute Plan to address problem: - Continue AEDs - Neurology following - no obvious clinical seizure activity (8) 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 - This could be secondary to an intra-cranial process, however unable to obtain neuro-imaging, patient's weight exceeds allowable maximum (9) Discharge planning issues Current Visit: Yes Status: Acute Plan to address problem: - Continue current care. - need to determine appropriate power of tax associate attorney / legal healthcare livestock sales representative prior to any tentative withdrawal of care - son came by and signed DNR order however no consensus on hospice care / withdrawal - transfer to LTAC once bed available (tentatively in am again) ..she remains critically ill on life sustaining interventions including MVS and at high risk for further deterioration including ....34' CCT Subjective Date of service: 09/15/16 Principal diagnosis: Acute Hypoxemic Hypercapnic Resp Failure; Severe Sepsis Interval history: Seen and examined at bedside; 24 hour events reviewed; nursing and respiratory care staff consulted; no adverse overnight events reported to me; remains on MVS ; awaiting transfer to LTAC; AMS is persistent; tolerating tube feeds a little better now; no new issues respiratory-burch Objective Vital Signs - 12hr 09/14/16 09/14/16 09/14/16 22:30 22:46 23:00 Temperature Pulse Rate 57 L 57 L 53 L Pulse Rate [ Anterior Bilateral Throughout] Pulse Rate [ From Monitor] Respiratory 20 20 21 Rate Respiratory Rate [Anterior Bilateral Throughout] Blood Pressure 149/52 149/52 153/67 O2 Sat by Pulse 100 100 99 Oximetry 09/14/16 09/14/16 09/14/16 23:16 23:30 23:46 Temperature Pulse Rate 49 L 52 L 49 L Pulse Rate [ Anterior Bilateral Throughout] Pulse Rate [ From Monitor] Respiratory 21 21 20 Rate Respiratory Rate [Anterior Bilateral Throughout] Blood Pressure 153/67 153/67 153/67 O2 Sat by Pulse 100 100 100 Oximetry 09/15/16 09/15/16 09/15/16 00:00 00:16 00:30 Temperature 98.7 F Pulse Rate 56 L 52 L 51 L Pulse Rate [ Anterior Bilateral Throughout] Pulse Rate [ 73 From Monitor] Respiratory 20 20 20 Rate Respiratory Rate [Anterior Bilateral Throughout] Blood Pressure 152/59 152/59 152/59 O2 Sat by Pulse 98 100 100 Oximetry 09/15/16 09/15/16 09/15/16 00:46 01:00 01:16 Temperature Pulse Rate 50 L 59 L 63 Pulse Rate [ Anterior Bilateral Throughout] Pulse Rate [ From Monitor] Respiratory 19 21 20 Rate Respiratory Rate [Anterior Bilateral Throughout] Blood Pressure 152/59 138/76 138/76 O2 Sat by Pulse 100 99 100 Oximetry 09/15/16 09/15/16 09/15/16 01:30 01:46 02:00 Temperature Pulse Rate 57 L 60 58 L Pulse Rate [ Anterior Bilateral Throughout] Pulse Rate [ From Monitor] Respiratory 14 18 17 Rate Respiratory Rate [Anterior Bilateral Throughout] Blood Pressure 138/76 138/76 138/76 O2 Sat by Pulse 100 100 100 Oximetry 09/15/16 09/15/16 09/15/16 02:16 02:28 02:30 Temperature Pulse Rate 57 L 52 L Pulse Rate [ Anterior Bilateral Throughout] Pulse Rate [ From Monitor] Respiratory 22 21 Rate Respiratory Rate [Anterior Bilateral Throughout] Blood Pressure 162/69 162/69 138/76 O2 Sat by Pulse 100 100 100 Oximetry 09/15/16 09/15/16 09/15/16 02:33 02:45 02:46 Temperature Pulse Rate 58 L Pulse Rate [ 56 L 63 Anterior Bilateral Throughout] Pulse Rate [ From Monitor] Respiratory 18 Rate Respiratory 27 H 23 Rate [Anterior Bilateral Throughout] Blood Pressure 138/76 O2 Sat by Pulse 100 Oximetry 09/15/16 09/15/16 09/15/16 03:00 03:16 03:30 Temperature Pulse Rate 59 L 58 L 63 Pulse Rate [ Anterior Bilateral Throughout] Pulse Rate [ From Monitor] Respiratory 19 17 15 Rate Respiratory Rate [Anterior Bilateral Throughout] Blood Pressure 138/76 180/83 180/83 O2 Sat by Pulse 100 100 100 Oximetry 09/15/16 09/15/16 09/15/16 03:46 04:00 04:16 Temperature 97.4 F L Pulse Rate 61 63 79 Pulse Rate [ Anterior Bilateral Throughout] Pulse Rate [ 75 From Monitor] Respiratory 17 17 20 Rate Respiratory Rate [Anterior Bilateral Throughout] Blood Pressure 180/83 180/83 163/97 O2 Sat by Pulse 100 100 99 Oximetry 09/15/16 09/15/16 09/15/16 04:30 04:45 04:46 Temperature Pulse Rate 115 H 62 82 Pulse Rate [ Anterior Bilateral Throughout] Pulse Rate [ From Monitor] Respiratory 25 H 19 Rate Respiratory Rate [Anterior Bilateral Throughout] Blood Pressure 163/97 180/84 163/97 O2 Sat by Pulse 100 100 100 Oximetry 09/15/16 09/15/16 09/15/16 05:00 05:16 05:30 Temperature Pulse Rate 83 71 77 Pulse Rate [ Anterior Bilateral Throughout] Pulse Rate [ From Monitor] Respiratory 18 24 19 Rate Respiratory Rate [Anterior Bilateral Throughout] Blood Pressure 163/97 163/97 O2 Sat by Pulse 78 L 100 100 Oximetry 09/15/16 09/15/16 09/15/16 05:46 05:51 06:00 Temperature Pulse Rate 71 70 76 Pulse Rate [ Anterior Bilateral Throughout] Pulse Rate [ From Monitor] Respiratory 17 19 Rate Respiratory Rate [Anterior Bilateral Throughout] Blood Pressure 163/97 138/60 138/60 O2 Sat by Pulse 100 Oximetry 09/15/16 09/15/16 09/15/16 06:16 06:30 06:46 Temperature Pulse Rate 70 60 59 L Pulse Rate [ Anterior Bilateral Throughout] Pulse Rate [ From Monitor] Respiratory 19 14 17 Rate Respiratory Rate [Anterior Bilateral Throughout] Blood Pressure 101/23 101/23 101/23 O2 Sat by Pulse 63 L 100 Oximetry 09/15/16 09/15/16 09/15/16 07:00 07:16 07:30 Temperature Pulse Rate 59 L 59 L 55 L Pulse Rate [ Anterior Bilateral Throughout] Pulse Rate [ From Monitor] Respiratory 19 17 19 Rate Respiratory Rate [Anterior Bilateral Throughout] Blood Pressure 124/60 124/60 124/60 O2 Sat by Pulse 99 92 87 Oximetry 09/15/16 09/15/16 09/15/16 07:46 08:00 08:16 Temperature 98.5 F Pulse Rate 49 L 52 L 53 L Pulse Rate [ 50 L Anterior Bilateral Throughout] Pulse Rate [ From Monitor] Respiratory 17 18 15 Rate Respiratory 16 Rate [Anterior Bilateral Throughout] Blood Pressure 124/60 135/54 135/54 O2 Sat by Pulse 100 100 100 Oximetry 09/15/16 08:25 Temperature Pulse Rate Pulse Rate [ Anterior Bilateral Throughout] Pulse Rate [ 47 L From Monitor] Respiratory Rate Respiratory Rate [Anterior Bilateral Throughout] Blood Pressure O2 Sat by Pulse Oximetry Constitutional: no acute distress, other (lethargic) Eyes: non-icteric ENT: oropharynx moist Neck: supple, no lymphadenopathy Effort: mildly labored Ascultation: Bilateral: diminished breath sounds (bases), rales (scant) Cardiovascular: regular rate and rhythm Gastrointestinal: hypoactive bowel sounds, soft, non-tender, non-distended Integumentary: normal Extremities: no cyanosis, pulses normal, no ischemia or petechiae, edema (1++) Neurologic: unable to assess, other (lethargic) Psychiatric: other (sedated) CBC and BMP: 09/16/16 04:55 09/16/16 04:55 ABG, PT/INR, D-dimer: ABG POC ABG pH 7.454 (7.35-7.45) H 09/09/16 12:33 POC ABG pCO2 38.4 (35-45) 09/09/16 12:33 POC ABG pO2 75 (80-105) L 09/09/16 12:33 POC ABG HCO3 27.0 09/09/16 12:33 POC ABG Total CO2 28 09/09/16 12:33 POC ABG O2 Sat 96 09/09/16 12:33 PT/INR, D-dimer PT 13.8 Sec. (12.2-14.9) 09/10/16 05:10 INR 1.07 (0.87-1.13) 09/10/16 05:10 Abnormal lab findings: Abnormal Labs 08/29/16 08/30/16 08/30/16 21:59 00:16 05:39 WBC RBC Hgb Hct MCH MCHC RDW Plt Count Seg Neutrophils % Seg Neuts % (Manual) Nucleated RBC % Seg Neutrophils # Seg Neutrophils # Man PT INR POC ABG pH POC ABG pCO2 POC ABG pO2 Sodium Potassium Chloride Carbon Dioxide BUN Creatinine Glucose POC Glucose 106 H 128 H Lactic Acid Calcium Total Bilirubin AST ALT Alkaline Phosphatase Ammonia Troponin T C-Reactive Protein Total Protein Albumin Prealbumin 0.120 L TSH Crossmatch 08/30/16 08/30/16 08/30/16 10:30 10:30 11:12 WBC 11.1 H RBC 3.16 L Hgb 8.7 L Hct 29.9 L MCH MCHC 29 L RDW 25.0 H Plt Count Seg Neutrophils % 78.6 H Seg Neuts % (Manual) Nucleated RBC % Seg Neutrophils # 8.7 H Seg Neutrophils # Man PT INR POC ABG pH POC ABG pCO2 POC ABG pO2 Sodium 135 L Potassium Chloride Carbon Dioxide 20 L BUN Creatinine 1.5 H Glucose 148 H POC Glucose 142 H Lactic Acid Calcium 7.2 L Total Bilirubin 1.30 H AST 143 H ALT Alkaline Phosphatase 392 H Ammonia Troponin T C-Reactive Protein Total Protein 6.1 L Albumin 1.2 L Prealbumin TSH Crossmatch 08/30/16 08/30/16 08/30/16 17:41 18:03 18:18 WBC RBC Hgb Hct MCH MCHC RDW Plt Count Seg Neutrophils % Seg Neuts % (Manual) Nucleated RBC % Seg Neutrophils # Seg Neutrophils # Man PT INR POC ABG pH 7.316 L POC ABG pCO2 POC ABG pO2 44 L 59 L Sodium Potassium Chloride Carbon Dioxide BUN Creatinine Glucose POC Glucose 150 H Lactic Acid Calcium Total Bilirubin AST ALT Alkaline Phosphatase Ammonia Troponin T C-Reactive Protein Total Protein Albumin Prealbumin TSH Crossmatch 08/30/16 08/30/16 08/31/16 22:20 22:20 00:11 WBC RBC Hgb Hct MCH MCHC RDW Plt Count Seg Neutrophils % Seg Neuts % (Manual) Nucleated RBC % Seg Neutrophils # Seg Neutrophils # Man PT INR POC ABG pH POC ABG pCO2 POC ABG pO2 Sodium Potassium Chloride Carbon Dioxide BUN Creatinine Glucose POC Glucose 133 H Lactic Acid 2.30 H* Calcium Total Bilirubin AST ALT Alkaline Phosphatase Ammonia Troponin T C-Reactive Protein 10.20 H Total Protein Albumin Prealbumin TSH Crossmatch 08/31/16 08/31/16 08/31/16 04:20 04:20 04:20 WBC 18.3 H RBC 3.19 L Hgb 8.8 L Hct 30.0 L MCH 27 L MCHC 29 L RDW 23.9 H Plt Count Seg Neutrophils % Seg Neuts % (Manual) Nucleated RBC % Seg Neutrophils # Seg Neutrophils # Man PT 16.8 H INR 1.37 H POC ABG pH POC ABG pCO2 POC ABG pO2 Sodium 136 L Potassium Chloride Carbon Dioxide 19 L BUN Creatinine 1.5 H Glucose 125 H POC Glucose Lactic Acid Calcium 7.0 L Total Bilirubin 1.50 H AST 131 H ALT Alkaline Phosphatase 431 H Ammonia Troponin T C-Reactive Protein Total Protein 6.2 L Albumin 1.2 L Prealbumin TSH Crossmatch 08/31/16 08/31/16 08/31/16 04:20 05:22 05:24 WBC RBC Hgb Hct MCH MCHC RDW Plt Count Seg Neutrophils % Seg Neuts % (Manual) Nucleated RBC % Seg Neutrophils # Seg Neutrophils # Man PT INR POC ABG pH POC ABG pCO2 POC ABG pO2 142 H Sodium Potassium Chloride Carbon Dioxide BUN Creatinine Glucose POC Glucose 123 H Lactic Acid Calcium Total Bilirubin AST ALT Alkaline Phosphatase Ammonia 70.0 H Troponin T C-Reactive Protein Total Protein Albumin Prealbumin TSH Crossmatch 08/31/16 08/31/16 08/31/16 12:10 15:45 17:38 WBC RBC Hgb Hct MCH MCHC RDW Plt Count Seg Neutrophils % Seg Neuts % (Manual) Nucleated RBC % Seg Neutrophils # Seg Neutrophils # Man PT INR POC ABG pH POC ABG pCO2 POC ABG pO2 Sodium 136 L Potassium Chloride Carbon Dioxide 21 L BUN Creatinine 1.5 H Glucose 160 H POC Glucose 147 H 151 H Lactic Acid Calcium 6.9 L Total Bilirubin AST ALT Alkaline Phosphatase Ammonia Troponin T 0.109 H* D C-Reactive Protein Total Protein Albumin Prealbumin TSH Crossmatch 09/01/16 09/01/16 09/01/16 00:09 04:00 04:00 WBC 14.8 H RBC 2.89 L Hgb 7.8 L Hct 27.2 L MCH 27 L MCHC 29 L RDW 24.4 H Plt Count Seg Neutrophils % Seg Neuts % (Manual) Nucleated RBC % Seg Neutrophils # Seg Neutrophils # Man PT 18.2 H INR 1.51 H POC ABG pH POC ABG pCO2 POC ABG pO2 Sodium Potassium Chloride Carbon Dioxide BUN Creatinine Glucose POC Glucose 192 H Lactic Acid Calcium Total Bilirubin AST ALT Alkaline Phosphatase Ammonia Troponin T C-Reactive Protein Total Protein Albumin Prealbumin TSH Crossmatch 09/01/16 09/01/16 09/01/16 04:00 05:28 11:28 WBC RBC Hgb Hct MCH MCHC RDW Plt Count Seg Neutrophils % Seg Neuts % (Manual) Nucleated RBC % Seg Neutrophils # Seg Neutrophils # Man PT INR POC ABG pH POC ABG pCO2 POC ABG pO2 Sodium Potassium Chloride Carbon Dioxide 20 L BUN Creatinine 1.6 H Glucose 183 H POC Glucose 189 H 207 H Lactic Acid Calcium 6.9 L Total Bilirubin 1.30 H AST 138 H ALT Alkaline Phosphatase 520 H Ammonia Troponin T C-Reactive Protein Total Protein 6.1 L Albumin 1.2 L Prealbumin TSH Crossmatch 09/01/16 09/01/16 09/02/16 16:56 23:49 05:00 WBC RBC Hgb Hct MCH MCHC RDW Plt Count Seg Neutrophils % Seg Neuts % (Manual) Nucleated RBC % Seg Neutrophils # Seg Neutrophils # Man PT 18.0 H INR 1.49 H POC ABG pH POC ABG pCO2 POC ABG pO2 Sodium Potassium Chloride Carbon Dioxide BUN Creatinine Glucose POC Glucose 250 H 307 H Lactic Acid Calcium Total Bilirubin AST ALT Alkaline Phosphatase Ammonia Troponin T C-Reactive Protein Total Protein Albumin Prealbumin TSH Crossmatch 09/02/16 09/02/16 09/02/16 05:00 05:00 05:45 WBC 12.3 H RBC 2.57 L Hgb 7.1 L Hct 23.4 L MCH MCHC RDW 23.9 H Plt Count Seg Neutrophils % Seg Neuts % (Manual) 72.0 H Nucleated RBC % 25.0 H Seg Neutrophils # Seg Neutrophils # Man 8.9 H PT INR POC ABG pH POC ABG pCO2 POC ABG pO2 Sodium Potassium Chloride Carbon Dioxide BUN Creatinine 1.4 H Glucose 299 H POC Glucose 327 H Lactic Acid Calcium 7.0 L Total Bilirubin AST ALT Alkaline Phosphatase Ammonia Troponin T C-Reactive Protein Total Protein Albumin Prealbumin TSH Crossmatch 09/02/16 09/02/16 09/02/16 12:22 17:22 23:24 WBC RBC Hgb Hct MCH MCHC RDW Plt Count Seg Neutrophils % Seg Neuts % (Manual) Nucleated RBC % Seg Neutrophils # Seg Neutrophils # Cristian PT INR POC ABG pH POC ABG pCO2 POC ABG pO2 Sodium Potassium Chloride Carbon Dioxide BUN Creatinine Glucose POC Glucose 310 H 358 H 286 H Lactic Acid Calcium Total Bilirubin AST ALT Alkaline Phosphatase Ammonia Troponin T C-Reactive Protein Total Protein Albumin Prealbumin TSH Crossmatch 09/03/16 09/03/16 09/03/16 04:10 04:10 04:10 WBC 11.8 H RBC 2.29 L Hgb 6.1 L Hct 21.0 L MCH 27 L MCHC 29 L RDW 24.1 H Plt Count Seg Neutrophils % Seg Neuts % (Manual) Nucleated RBC % Seg Neutrophils # Seg Neutrophils # Man PT 17.6 H INR 1.45 H POC ABG pH POC ABG pCO2 POC ABG pO2 Sodium Potassium Chloride Carbon Dioxide BUN Creatinine 1.4 H Glucose 301 H POC Glucose Lactic Acid Calcium 7.0 L Total Bilirubin AST ALT Alkaline Phosphatase Ammonia Troponin T C-Reactive Protein Total Protein Albumin Prealbumin TSH Crossmatch 09/03/16 09/03/16 09/03/16 05:59 11:36 17:42 WBC RBC Hgb Hct MCH MCHC RDW Plt Count Seg Neutrophils % Seg Neuts % (Manual) Nucleated RBC % Seg Neutrophils # Seg Neutrophils # Man PT INR POC ABG pH POC ABG pCO2 POC ABG pO2 Sodium Potassium Chloride Carbon Dioxide BUN Creatinine Glucose POC Glucose 351 H 285 H 259 H Lactic Acid Calcium Total Bilirubin AST ALT Alkaline Phosphatase Ammonia Troponin T C-Reactive Protein Total Protein Albumin Prealbumin TSH Crossmatch 09/03/16 09/04/16 09/04/16 23:00 04:27 05:36 WBC RBC Hgb Hct MCH MCHC RDW Plt Count Seg Neutrophils % Seg Neuts % (Manual) Nucleated RBC % Seg Neutrophils # Seg Neutrophils # Man PT INR POC ABG pH 7.544 H POC ABG pCO2 30.8 L POC ABG pO2 78 L Sodium Potassium Chloride Carbon Dioxide BUN Creatinine Glucose POC Glucose 192 H 228 H Lactic Acid Calcium Total Bilirubin AST ALT Alkaline Phosphatase Ammonia Troponin T C-Reactive Protein Total Protein Albumin Prealbumin TSH Crossmatch 09/04/16 09/04/16 09/04/16 06:37 06:37 06:39 WBC 21.0 H RBC 2.22 L Hgb 6.0 L Hct 20.1 L MCH 27 L MCHC RDW 24.3 H Plt Count Seg Neutrophils % Seg Neuts % (Manual) Nucleated RBC % Seg Neutrophils # Seg Neutrophils # Man PT 16.8 H INR 1.37 H POC ABG pH POC ABG pCO2 POC ABG pO2 Sodium Potassium Chloride Carbon Dioxide BUN Creatinine 1.4 H Glucose 201 H POC Glucose Lactic Acid Calcium 7.1 L Total Bilirubin AST ALT Alkaline Phosphatase Ammonia Troponin T C-Reactive Protein Total Protein Albumin Prealbumin TSH Crossmatch 09/04/16 09/04/16 09/04/16 12:14 15:47 17:41 WBC RBC Hgb Hct MCH MCHC RDW Plt Count Seg Neutrophils % Seg Neuts % (Manual) Nucleated RBC % Seg Neutrophils # Seg Neutrophils # Man PT INR POC ABG pH POC ABG pCO2 POC ABG pO2 Sodium Potassium Chloride Carbon Dioxide BUN Creatinine Glucose POC Glucose 176 H 218 H Lactic Acid Calcium Total Bilirubin AST ALT Alkaline Phosphatase Ammonia Troponin T C-Reactive Protein Total Protein Albumin Prealbumin TSH Crossmatch See Detail 09/04/16 09/04/16 09/05/16 21:59 23:48 04:30 WBC RBC Hgb Hct MCH MCHC RDW Plt Count Seg Neutrophils % Seg Neuts % (Manual) Nucleated RBC % Seg Neutrophils # Seg Neutrophils # Man PT 17.2 H INR 1.41 H POC ABG pH POC ABG pCO2 POC ABG pO2 Sodium Potassium Chloride Carbon Dioxide BUN Creatinine Glucose POC Glucose 170 H 121 H Lactic Acid Calcium Total Bilirubin AST ALT Alkaline Phosphatase Ammonia Troponin T C-Reactive Protein Total Protein Albumin Prealbumin TSH Crossmatch 09/05/16 09/05/16 09/05/16 04:30 04:30 05:09 WBC 31.9 H RBC 3.11 L Hgb 8.5 L Hct 28.3 L D MCH 27 L MCHC RDW 21.0 H Plt Count Seg Neutrophils % Seg Neuts % (Manual) Nucleated RBC % Seg Neutrophils # Seg Neutrophils # Man PT INR POC ABG pH 7.226 L POC ABG pCO2 61.6 H POC ABG pO2 68 L Sodium 134 L Potassium 5.5 H Chloride 96.6 L Carbon Dioxide BUN 23 H Creatinine 1.6 H Glucose 116 H POC Glucose Lactic Acid Calcium 7.1 L Total Bilirubin AST ALT Alkaline Phosphatase Ammonia Troponin T C-Reactive Protein Total Protein Albumin Prealbumin TSH Crossmatch 09/05/16 09/05/16 09/05/16 05:33 12:08 17:32 WBC RBC Hgb Hct MCH MCHC RDW Plt Count Seg Neutrophils % Seg Neuts % (Manual) Nucleated RBC % Seg Neutrophils # Seg Neutrophils # Man PT INR POC ABG pH POC ABG pCO2 POC ABG pO2 Sodium Potassium Chloride Carbon Dioxide BUN Creatinine Glucose POC Glucose 114 H 147 H 174 H Lactic Acid Calcium Total Bilirubin AST ALT Alkaline Phosphatase Ammonia Troponin T C-Reactive Protein Total Protein Albumin Prealbumin TSH Crossmatch 09/06/16 09/06/16 09/06/16 03:30 03:30 03:30 WBC 25.4 H RBC 2.57 L Hgb 7.2 L Hct 22.8 L MCH MCHC RDW 20.9 H Plt Count 138 L Seg Neutrophils % Seg Neuts % (Manual) Nucleated RBC % Seg Neutrophils # Seg Neutrophils # Man PT 16.4 H INR 1.33 H POC ABG pH POC ABG pCO2 POC ABG pO2 Sodium Potassium Chloride Carbon Dioxide BUN 36 H Creatinine 1.9 H Glucose POC Glucose Lactic Acid Calcium 7.2 L Total Bilirubin AST ALT Alkaline Phosphatase Ammonia Troponin T C-Reactive Protein Total Protein Albumin Prealbumin TSH Crossmatch 09/06/16 09/06/16 09/06/16 11:07 12:03 14:44 WBC RBC Hgb Hct MCH MCHC RDW Plt Count Seg Neutrophils % Seg Neuts % (Manual) Nucleated RBC % Seg Neutrophils # Seg Neutrophils # Man PT INR POC ABG pH POC ABG pCO2 POC ABG pO2 Sodium Potassium Chloride Carbon Dioxide BUN Creatinine Glucose POC Glucose 61 L 55 L Lactic Acid Calcium Total Bilirubin AST ALT Alkaline Phosphatase Ammonia Troponin T 0.080 H C-Reactive Protein Total Protein Albumin Prealbumin TSH Crossmatch 09/06/16 09/06/16 09/07/16 21:05 23:53 03:36 WBC RBC Hgb Hct MCH MCHC RDW Plt Count Seg Neutrophils % Seg Neuts % (Manual) Nucleated RBC % Seg Neutrophils # Seg Neutrophils # Man PT INR POC ABG pH POC ABG pCO2 POC ABG pO2 Sodium Potassium Chloride Carbon Dioxide BUN Creatinine Glucose POC Glucose 140 H 178 H 243 H Lactic Acid Calcium Total Bilirubin AST ALT Alkaline Phosphatase Ammonia Troponin T C-Reactive Protein Total Protein Albumin Prealbumin TSH Crossmatch 09/07/16 09/07/16 09/07/16 03:42 03:42 05:04 WBC 17.3 H RBC 2.69 L Hgb 7.6 L Hct 23.8 L MCH MCHC RDW 20.5 H Plt Count 137 L Seg Neutrophils % Seg Neuts % (Manual) Nucleated RBC % Seg Neutrophils # Seg Neutrophils # Man PT INR POC ABG pH POC ABG pCO2 POC ABG pO2 Sodium Potassium 3.3 L Chloride Carbon Dioxide BUN 38 H Creatinine 1.6 H Glucose 201 H POC Glucose 241 H Lactic Acid Calcium 7.4 L Total Bilirubin AST ALT Alkaline Phosphatase Ammonia Troponin T C-Reactive Protein Total Protein Albumin Prealbumin TSH Crossmatch 09/07/16 09/07/16 09/07/16 11:46 17:41 23:18 WBC RBC Hgb Hct MCH MCHC RDW Plt Count Seg Neutrophils % Seg Neuts % (Manual) Nucleated RBC % Seg Neutrophils # Seg Neutrophils # Man PT INR POC ABG pH POC ABG pCO2 POC ABG pO2 Sodium Potassium Chloride Carbon Dioxide BUN Creatinine Glucose POC Glucose 313 H 227 H 116 H Lactic Acid Calcium Total Bilirubin AST ALT Alkaline Phosphatase Ammonia Troponin T C-Reactive Protein Total Protein Albumin Prealbumin TSH Crossmatch 09/08/16 09/08/16 09/08/16 04:00 04:00 05:15 WBC 18.4 H RBC 2.43 L Hgb 6.9 L Hct 21.5 L MCH MCHC RDW 20.5 H Plt Count 119 L Seg Neutrophils % Seg Neuts % (Manual) Nucleated RBC % Seg Neutrophils # Seg Neutrophils # Man PT INR POC ABG pH 7.458 H POC ABG pCO2 POC ABG pO2 177 H Sodium Potassium 3.5 L Chloride Carbon Dioxide BUN 37 H Creatinine 1.3 H Glucose POC Glucose Lactic Acid Calcium 7.1 L Total Bilirubin AST ALT Alkaline Phosphatase Ammonia Troponin T C-Reactive Protein Total Protein Albumin Prealbumin TSH Crossmatch 09/08/16 09/08/16 09/08/16 11:00 15:58 23:16 WBC RBC Hgb Hct MCH MCHC RDW Plt Count Seg Neutrophils % Seg Neuts % (Manual) Nucleated RBC % Seg Neutrophils # Seg Neutrophils # Man PT INR POC ABG pH POC ABG pCO2 POC ABG pO2 113 H Sodium Potassium Chloride Carbon Dioxide BUN Creatinine Glucose POC Glucose 40 L Lactic Acid Calcium Total Bilirubin AST ALT Alkaline Phosphatase Ammonia Troponin T C-Reactive Protein Total Protein Albumin Prealbumin TSH Crossmatch See Detail 09/09/16 09/09/16 09/09/16 05:02 12:33 18:10 WBC RBC Hgb Hct MCH MCHC RDW Plt Count Seg Neutrophils % Seg Neuts % (Manual) Nucleated RBC % Seg Neutrophils # Seg Neutrophils # Man PT INR POC ABG pH 7.454 H POC ABG pCO2 POC ABG pO2 75 L Sodium Potassium Chloride Carbon Dioxide BUN Creatinine Glucose POC Glucose 59 L Lactic Acid Calcium Total Bilirubin AST ALT Alkaline Phosphatase Ammonia Troponin T C-Reactive Protein Total Protein Albumin Prealbumin TSH 5.220 H Crossmatch 09/09/16 09/09/16 09/09/16 18:10 18:10 18:42 WBC 17.0 H RBC 2.90 L Hgb 8.5 L Hct 26.1 L MCH MCHC RDW 17.9 H Plt Count 126 L Seg Neutrophils % Seg Neuts % (Manual) Nucleated RBC % Seg Neutrophils # Seg Neutrophils # Man PT INR POC ABG pH POC ABG pCO2 POC ABG pO2 Sodium Potassium Chloride Carbon Dioxide BUN 36 H Creatinine Glucose 133 H POC Glucose 148 H Lactic Acid Calcium 6.9 L Total Bilirubin AST 253 H ALT 184 H Alkaline Phosphatase 729 H Ammonia Troponin T C-Reactive Protein Total Protein 5.1 L Albumin 1.7 L Prealbumin TSH Crossmatch 09/09/16 09/10/16 09/10/16 23:22 05:10 11:43 WBC RBC Hgb Hct MCH MCHC RDW Plt Count Seg Neutrophils % Seg Neuts % (Manual) Nucleated RBC % Seg Neutrophils # Seg Neutrophils # Man PT INR POC ABG pH POC ABG pCO2 POC ABG pO2 Sodium Potassium Chloride Carbon Dioxide BUN 35 H Creatinine Glucose 240 H POC Glucose 170 H 268 H Lactic Acid Calcium 6.8 L Total Bilirubin AST 226 H ALT 171 H Alkaline Phosphatase 710 H Ammonia Troponin T C-Reactive Protein Total Protein 5.2 L Albumin 1.7 L Prealbumin TSH Crossmatch 09/10/16 09/11/16 09/11/16 17:51 01:07 05:00 WBC RBC Hgb Hct MCH MCHC RDW Plt Count Seg Neutrophils % Seg Neuts % (Manual) Nucleated RBC % Seg Neutrophils # Seg Neutrophils # Man PT INR POC ABG pH POC ABG pCO2 POC ABG pO2 Sodium Potassium 2.9 L* Chloride Carbon Dioxide BUN 35 H Creatinine Glucose 274 H POC Glucose 334 H 223 H Lactic Acid Calcium 6.9 L Total Bilirubin AST 167 H ALT 145 H Alkaline Phosphatase 631 H Ammonia Troponin T C-Reactive Protein Total Protein 5.1 L Albumin 1.6 L Prealbumin TSH Crossmatch 09/11/16 09/11/16 09/11/16 05:01 12:16 17:12 WBC RBC Hgb Hct MCH MCHC RDW Plt Count Seg Neutrophils % Seg Neuts % (Manual) Nucleated RBC % Seg Neutrophils # Seg Neutrophils # Man PT INR POC ABG pH POC ABG pCO2 POC ABG pO2 Sodium Potassium Chloride Carbon Dioxide BUN Creatinine Glucose POC Glucose 305 H 219 H 171 H Lactic Acid Calcium Total Bilirubin AST ALT Alkaline Phosphatase Ammonia Troponin T C-Reactive Protein Total Protein Albumin Prealbumin TSH Crossmatch 09/11/16 09/12/16 09/12/16 23:35 03:33 05:00 WBC 12.9 H RBC 2.81 L Hgb 8.2 L Hct 25.4 L MCH MCHC RDW 17.9 H Plt Count Seg Neutrophils % Seg Neuts % (Manual) Nucleated RBC % Seg Neutrophils # Seg Neutrophils # Man PT INR POC ABG pH POC ABG pCO2 POC ABG pO2 Sodium Potassium Chloride Carbon Dioxide BUN Creatinine Glucose POC Glucose 216 H 183 H Lactic Acid Calcium Total Bilirubin AST ALT Alkaline Phosphatase Ammonia Troponin T C-Reactive Protein Total Protein Albumin Prealbumin TSH Crossmatch 09/12/16 09/12/16 09/12/16 05:00 15:15 18:30 WBC RBC Hgb Hct MCH MCHC RDW Plt Count Seg Neutrophils % Seg Neuts % (Manual) Nucleated RBC % Seg Neutrophils # Seg Neutrophils # Man PT INR POC ABG pH POC ABG pCO2 POC ABG pO2 Sodium Potassium 3.0 L 3.4 L Chloride Carbon Dioxide BUN 33 H Creatinine 0.5 L Glucose POC Glucose 215 H Lactic Acid Calcium 7.0 L Total Bilirubin AST ALT Alkaline Phosphatase Ammonia Troponin T C-Reactive Protein Total Protein Albumin Prealbumin TSH Crossmatch 09/12/16 09/13/16 09/13/16 23:17 05:50 05:50 WBC RBC 2.93 L Hgb 8.8 L Hct 26.7 L MCH MCHC RDW 18.0 H Plt Count Seg Neutrophils % Seg Neuts % (Manual) Nucleated RBC % Seg Neutrophils # Seg Neutrophils # Man PT INR POC ABG pH POC ABG pCO2 POC ABG pO2 Sodium Potassium 2.6 L* D Chloride Carbon Dioxide BUN 29 H Creatinine 0.5 L Glucose 106 H POC Glucose 155 H Lactic Acid Calcium 7.3 L Total Bilirubin AST ALT Alkaline Phosphatase Ammonia Troponin T C-Reactive Protein Total Protein Albumin Prealbumin TSH Crossmatch 09/13/16 09/13/16 09/13/16 05:53 11:43 15:07 WBC RBC Hgb Hct MCH MCHC RDW Plt Count Seg Neutrophils % Seg Neuts % (Manual) Nucleated RBC % Seg Neutrophils # Seg Neutrophils # Man PT INR POC ABG pH POC ABG pCO2 POC ABG pO2 Sodium Potassium 2.8 L* Chloride Carbon Dioxide BUN Creatinine Glucose POC Glucose 119 H 129 H Lactic Acid Calcium Total Bilirubin AST ALT Alkaline Phosphatase Ammonia Troponin T C-Reactive Protein Total Protein Albumin Prealbumin TSH Crossmatch 09/13/16 09/13/16 09/14/16 17:39 23:30 05:34 WBC RBC Hgb Hct MCH MCHC RDW Plt Count Seg Neutrophils % Seg Neuts % (Manual) Nucleated RBC % Seg Neutrophils # Seg Neutrophils # Man PT INR POC ABG pH POC ABG pCO2 POC ABG pO2 Sodium Potassium Chloride Carbon Dioxide BUN Creatinine Glucose POC Glucose 144 H 196 H 175 H Lactic Acid Calcium Total Bilirubin AST ALT Alkaline Phosphatase Ammonia Troponin T C-Reactive Protein Total Protein Albumin Prealbumin TSH Crossmatch 09/14/16 09/14/16 09/14/16 06:24 06:24 12:41 WBC RBC 2.82 L Hgb 8.4 L Hct 25.7 L MCH MCHC RDW 18.0 H Plt Count Seg Neutrophils % Seg Neuts % (Manual) Nucleated RBC % Seg Neutrophils # Seg Neutrophils # Man PT INR POC ABG pH POC ABG pCO2 POC ABG pO2 Sodium Potassium 2.9 L* Chloride 107.3 H Carbon Dioxide BUN 26 H Creatinine 0.4 L Glucose 169 H POC Glucose 184 H Lactic Acid Calcium 7.5 L Total Bilirubin AST ALT Alkaline Phosphatase Ammonia Troponin T C-Reactive Protein Total Protein Albumin Prealbumin TSH Crossmatch 09/14/16 09/14/16 09/14/16 14:50 17:57 23:34 WBC RBC Hgb Hct MCH MCHC RDW Plt Count Seg Neutrophils % Seg Neuts % (Manual) Nucleated RBC % Seg Neutrophils # Seg Neutrophils # Man PT INR POC ABG pH POC ABG pCO2 POC ABG pO2 Sodium Potassium 3.3 L Chloride Carbon Dioxide BUN Creatinine Glucose POC Glucose 191 H 178 H Lactic Acid Calcium Total Bilirubin AST ALT Alkaline Phosphatase Ammonia Troponin T C-Reactive Protein Total Protein Albumin Prealbumin TSH Crossmatch 09/15/16 09/15/16 09/15/16 05:02 07:57 07:57 WBC RBC 3.04 L Hgb 9.2 L Hct 28.2 L MCH MCHC RDW 18.8 H Plt Count Seg Neutrophils % Seg Neuts % (Manual) Nucleated RBC % Seg Neutrophils # Seg Neutrophils # Man PT INR POC ABG pH POC ABG pCO2 POC ABG pO2 Sodium Potassium Chloride 107.2 H Carbon Dioxide BUN 26 H Creatinine 0.4 L Glucose 160 H POC Glucose 192 H Lactic Acid Calcium 7.7 L Total Bilirubin AST ALT Alkaline Phosphatase Ammonia Troponin T C-Reactive Protein Total Protein Albumin Prealbumin TSH Crossmatch Allied health notes reviewed: RT
[2016-09-15] MEDS: ATIVAN IV PRN ×2 (10:42→17:37)
--- NOTE | 2016-09-15 14:33 | Progress Note ---
Assessment and Plan Assessment and plan: Patient is a 61-year-old morbid obese woman with a history of congestive heart failure, severe protein calorie malnutrition (bilateral presybeterian muscle severe wasting, hypothenar muscle wasting) with BMI of 81.6, functional quadriplegia, type 2 diabetes mellitus, hypertension, multiple skin breakdown between legs and thighs who presented to the hospital via EMS with AMS. 2D echocardiogram with ejection fraction of 50-55%. During the past admission, patient was recommended for placement but refused. On presentation to ED, patient was felt to be unable to maintain her airways and intubated the ER since 08/29/16. 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, poa: supportative care -Acute on chronic diastolic congestive heart failure: treated with diuresis -Acute on chronic respiratory failure, intubated > 96 hours -Septic shock on on IV solucorticef and midodrine -Severe anemia s/p blood transfusion: monitor cbc closely altered -Paroxysmal atrial fibrillation -Non-ST elevated OK type 2: Conservative management -Acute on chronic kidney disease III, likely secondary to vasomotor nephropathy- POA -Transaminitis-elevated alkaline phosphatase and AST: continue to monitor -Severe protein calorie malnutrition albumin 1.2 -Morbid obesity BMI 81.6 -Mulitple PRESSURE ULCERS-POA: consulted wound care -uncontrolled dm: increased ssi -Acute anemia with drop in HCT resolved, received 5 units of PRBC transfused -Levaphed still off -Unable to get CT head due to weight issues Disposition: LTAC once accepted 09/04/16 , boyfriend, Tad agreed to blood transfusion, hgb is 6.0 will transfuse 2 units==>h/h steady, continue to monitor 09/05/16: Overnight was very eventful. New issue: Status epilepticus most likely due to anoxic brain injury, poa. She is back on 8 mcg of Levophed, which had weaned off up to the point of seizure activity Patient had status epilepticus before receiving blood transfusions. She was given multiple doses of Ativan and was still having breakthrough seizures. She was given phenobarbital and Dilantin but still having seizures. I started propofol drip which is helping. She still on IV Ativan drip also. Difficult family dynamics: Her son (she has multiple children), Srikanth and sister Leanne were at her bedside and well as her boyfriend who is not her legal , which he told me. They are upset because they didn't know patient was in the hospital. It appears the gentleman in the room is her boyfriend and not her legal He also did not notify the family the patient was here. That gentleman who is her boyfriend dropped the patient's wallet and our security called the number inside the wallet which was patient's mother's number and this is how the family found out that patient was in the hospital. I was told by RN, that patient has no , patient has 7 siblings and they are estranged from mother. No legal POA but sister Leanne is active in sister's life. Her boyfriend name is Tad Vieyra and he has consistently been at her beside, holding her hand and being supportive. 09/10/16 (resumed care): Trying to get to LTAC, still on 2 mcg of Levaphed but not sedated==>?Significant anoxic brain injury most likely poa, Ethic committee consulted because some family members want to withdraw. 09/11/16, Trach aspirated GNR, continue abx pending identification, off levaphed today. Trying to get to LTAC, they can trach her there. Only [facility] takes her insurance 09/12/16 Trach aspirate still pending, new issue of hypothermia, responded to [facility], tube feeding low rate due to high residuals, abd xray unremarkable. Potassium replaced. No restraints needs, no sedation needed, poor prognosis 09/15/16(resumed care): new issue seizure, gave 1mg iv ativan x 1. Awaiting to go to [facility] History Interval history: Patient seen and examined. Follow up on respiratory failure. Patient still intubated. Overnight uneventful. Hospitalist Physical - Physical exam Narrative exam: GEN: Critically ill, morbid obese BMI 81.6, intubated HEENT: Pupils are pinpoint and reactive, ET tube in place NECK: SUPPLE, NO THYROMEGALY, NO JVD, NO LAD CVS: regular irregular NORMAL S1S2 LUNGS/CHEST: TA B, NORMAL CHEST EXPANSION B, GOOD AIR ENTRY B ABD: SOFT, NONDISTENDED GBS, NO REBOUND OR GUARDING MSK: Spontaneous movement of extremities NEURO: CN 2-12 GROSSLY INTACT, doesn't follow commands PSY: Confused - Constitutional Vitals: Temp Pulse Resp BP Pulse Ox 97.5 F L 81 20 109/60 100 09/15/16 12:00 09/15/16 14:14 09/15/16 14:14 09/15/16 12:46 09/15/16 12:46 General appearance: Present: other (morbidly obese) Results - Labs CBC & Chem 7: 09/15/16 07:57 09/15/16 07:57 Labs: Laboratory Last Values WBC 8.6 K/mm3 (4.5-11.0) 09/15/16 07:57 RBC 3.04 M/mm3 (3.65-5.03) L 09/15/16 07:57 Hgb 9.2 gm/dl (10.1-14.3) L 09/15/16 07:57 Hct 28.2 % (30.3-42.9) L 09/15/16 07:57 MCV 93 fl (79-97) 09/15/16 07:57 MCH 30 pg (28-32) 09/15/16 07:57 MCHC 33 % (30-34) 09/15/16 07:57 RDW 18.8 % (13.2-15.2) H 09/15/16 07:57 Plt Count 215 K/mm3 (140-440) 09/15/16 07:57 Lymph % (Auto) 15.6 % (13.4-35.0) 08/30/16 10:30 [place] % (Auto) 5.1 % (0.0-7.3) 08/30/16 10:30 Eos % (Auto) 0.6 % (0.0-4.3) 08/30/16 10:30 Baso % (Auto) 0.1 % (0.0-1.8) 08/30/16 10:30 Lymph # 1.7 K/mm3 (1.2-5.4) 08/30/16 10:30 [place] # 0.6 K/mm3 (0.0-0.8) 08/30/16 10:30 Eos # 0.1 K/mm3 (0.0-0.4) 08/30/16 10:30 Baso # 0.0 K/mm3 (0.0-0.1) 08/30/16 10:30 Add Manual Diff Complete 09/02/16 05:00 Total Counted 100 09/02/16 05:00 Seg Neutrophils % 78.6 % (40.0-70.0) H 08/30/16 10:30 Seg Neuts % (Manual) 72.0 % (40.0-70.0) H 09/02/16 05:00 Band Neutrophils % 9.0 % 09/02/16 05:00 Lymphocytes % (Manual) 15.0 % (13.4-35.0) 09/02/16 05:00 Reactive Lymphs % (Man) 0 % 09/02/16 05:00 Monocytes % (Manual) 4.0 % (0.0-7.3) 09/02/16 05:00 Eosinophils % (Manual) 0 % (0.0-4.3) 09/02/16 05:00 Basophils % (Manual) 0 % (0.0-1.8) 09/02/16 05:00 Metamyelocytes % 0 % 09/02/16 05:00 Myelocytes % 0 % 09/02/16 05:00 Promyelocytes % 0 % 09/02/16 05:00 Blast Cells % 0 % 09/02/16 05:00 Nucleated RBC % 25.0 % (0.0-0.9) H 09/02/16 05:00 Seg Neutrophils # 8.7 K/mm3 (1.8-7.7) H 08/30/16 10:30 Seg Neutrophils # Man 8.9 K/mm3 (1.8-7.7) H 09/02/16 05:00 Band Neutrophils # 1.1 K/mm3 09/02/16 05:00 Lymphocytes # (Manual) 1.8 K/mm3 (1.2-5.4) 09/02/16 05:00 Abs React Lymphs (Man) 0.0 K/mm3 09/02/16 05:00 Monocytes # (Manual) 0.5 K/mm3 (0.0-0.8) 09/02/16 05:00 Eosinophils # (Manual) 0.0 K/mm3 (0.0-0.4) 09/02/16 05:00 Basophils # (Manual) 0.0 K/mm3 (0.0-0.1) 09/02/16 05:00 Metamyelocytes # 0.0 K/mm3 09/02/16 05:00 Myelocytes # 0.0 K/mm3 09/02/16 05:00 Promyelocytes # 0.0 K/mm3 09/02/16 05:00 Blast Cells # 0.0 K/mm3 09/02/16 05:00 WBC Morphology Not Reportable 09/02/16 05:00 Hypersegmented Neuts Not Reportable 09/02/16 05:00 Hyposegmented Neuts Not Reportable 09/02/16 05:00 Hypogranular Neuts Not Reportable 09/02/16 05:00 Smudge Cells Not Reportable 09/02/16 05:00 Toxic Granulation Not Reportable 09/02/16 05:00 Toxic Vacuolation Not Reportable 09/02/16 05:00 Dohle Bodies Not Reportable 09/02/16 05:00 Pelger-Huet Anomaly Not Reportable 09/02/16 05:00 Feli Rods Not Reportable 09/02/16 05:00 Platelet Estimate Consistent w auto 09/02/16 05:00 Clumped Platelets Not Reportable 09/02/16 05:00 Plt Clumps, EDTA Not Reportable 09/02/16 05:00 Large Platelets Not Reportable 09/02/16 05:00 Giant Platelets Not Reportable 09/02/16 05:00 Platelet Satelliting Not Reportable 09/02/16 05:00 Plt Morphology Comment Not Reportable 09/02/16 05:00 RBC Morphology Not Reportable 09/02/16 05:00 Dimorphic RBCs Not Reportable 09/02/16 05:00 Polychromasia Rare 09/02/16 05:00 Hypochromasia Not Reportable 09/02/16 05:00 Poikilocytosis Not Reportable 09/02/16 05:00 Anisocytosis 1+ 09/02/16 05:00 Microcytosis Not Reportable 09/02/16 05:00 Macrocytosis 1+ 09/02/16 05:00 Spherocytes Not Reportable 09/02/16 05:00 Pappenheimer Bodies Not Reportable 09/02/16 05:00 Sickle Cells Not Reportable 09/02/16 05:00 Target Cells Not Reportable 09/02/16 05:00 Tear Drop Cells Not Reportable 09/02/16 05:00 Ovalocytes Not Reportable 09/02/16 05:00 Helmet Cells Not Reportable 09/02/16 05:00 [place] Bodies Not Reportable 09/02/16 05:00 [place] Rings Not Reportable 09/02/16 05:00 [place] Cells Not Reportable 09/02/16 05:00 Bite Cells Not Reportable 09/02/16 05:00 Crenated Cell Not Reportable 09/02/16 05:00 Elliptocytes Not Reportable 09/02/16 05:00 Acanthocytes (Spur) Not Reportable 09/02/16 05:00 Rouleaux Not Reportable 09/02/16 05:00 Hemoglobin C Crystals Not Reportable 09/02/16 05:00 Schistocytes Not Reportable 09/02/16 05:00 Malaria parasites Not Reportable 09/02/16 05:00 Manny Bodies Not Reportable 09/02/16 05:00 Hem Pathologist Commnt No 09/02/16 05:00 PT 13.8 Sec. (12.2-14.9) 09/10/16 05:10 INR 1.07 (0.87-1.13) 09/10/16 05:10 APTT 29.5 Sec. (24.2-36.6) 08/29/16 17:40 POC ABG pH 7.454 (7.35-7.45) H 09/09/16 12:33 POC ABG pCO2 38.4 (35-45) 09/09/16 12:33 POC ABG pO2 75 (80-105) L 09/09/16 12:33 POC ABG HCO3 27.0 09/09/16 12:33 POC ABG Total CO2 28 09/09/16 12:33 POC ABG O2 Sat 96 09/09/16 12:33 POC ABG Base Excess 3 09/09/16 12:33 VBG pH 7.366 (7.320-7.420) 08/29/16 17:40 FiO2 30 % 09/09/16 12:33 Sodium 145 mmol/L (137-145) 09/15/16 07:57 Potassium 3.8 mmol/L (3.6-5.0) 09/15/16 07:57 Chloride 107.2 mmol/L (98-107) H 09/15/16 07:57 Carbon Dioxide 26 mmol/L (22-30) 09/15/16 07:57 Anion Gap 16 mmol/L 09/15/16 07:57 BUN 26 mg/dL (7-17) H 09/15/16 07:57 Creatinine 0.4 mg/dL (0.7-1.2) L 09/15/16 07:57 Estimated GFR > 60 ml/min 09/15/16 07:57 BUN/Creatinine Ratio 65.00 % 09/15/16 07:57 Glucose 160 mg/dL (65-100) H 09/15/16 07:57 POC Glucose 232 (70-105) H 09/15/16 11:23 Lactic Acid 1.90 mmol/L (0.7-2.0) 09/07/16 15:00 Calcium 7.7 mg/dL (8.4-10.2) L 09/15/16 07:57 Phosphorus 3.60 mg/dL (2.5-4.5) 08/29/16 21:59 Magnesium 1.80 mg/dL (1.7-2.3) 09/13/16 05:50 Total Bilirubin 0.70 mg/dL (0.1-1.2) 09/11/16 05:00 AST 167 units/L (5-40) H 09/11/16 05:00 ALT 145 units/L (7-56) H 09/11/16 05:00 Alkaline Phosphatase 631 units/L (35-129) H 09/11/16 05:00 Ammonia 39.0 umol/L (25-60) 09/07/16 15:00 Total Creatine Kinase 36 units/L (30-135) 09/06/16 11:07 CK-MB (CK-2) < 1.0 ng/mL (0.0-4.0) 09/06/16 11:07 CK-MB (CK-2) Rel Index 2.7 (0-4) 09/06/16 11:07 Troponin T 0.080 ng/mL (0.00-0.029) H 09/06/16 11:07 C-Reactive Protein 10.20 mg/dL (0.00-1.30) H 08/30/16 22:20 NT-Pro-B Natriuret Pep 1712 pg/mL (0-900) H 08/29/16 17:40 Total Protein 5.1 g/dL (6.3-8.2) L 09/11/16 05:00 Albumin 1.6 g/dL (3.9-5) L 09/11/16 05:00 Albumin/Globulin Ratio 0.5 % 09/11/16 05:00 Prealbumin 0.120 g/L (0.200-0.400) L 08/29/16 21:59 Triglycerides 225 mg/dL (2-149) H 08/29/16 17:40 Cholesterol 130 mg/dL (50-199) 08/29/16 17:40 LDL Cholesterol Direct 82 mg/dL (50-130) 08/29/16 17:40 HDL Cholesterol 3 mg/dL (40-59) L 08/29/16 17:40 Cholesterol/HDL Ratio 43.33 % 08/29/16 17:40 TSH 5.220 mlU/mL (0.270-4.200) H 09/09/16 18:10 Urine Color Yellow (Yellow) 08/31/16 15:37 Urine Turbidity Clear (Clear) 08/31/16 15:37 Urine pH 5.0 (5.0-7.0) 08/31/16 15:37 Ur Specific [place] 1.009 (1.003-1.030) 08/31/16 15:37 Urine Protein <15 mg/dl mg/dL (Negative) 08/31/16 15:37 Urine Glucose (UA) Neg mg/dL (Negative) 08/31/16 15:37 Urine Ketones Neg mg/dL (Negative) 08/31/16 15:37 Urine Blood Sm (Negative) 08/31/16 15:37 Urine Nitrite Neg (Negative) 08/31/16 15:37 Urine Bilirubin Neg (Negative) 08/31/16 15:37 Urine Urobilinogen < 2.0 mg/dL (<2.0) 08/31/16 15:37 Ur Leukocyte Esterase Sm (Negative) 08/31/16 15:37 Urine WBC (Auto) 3.0 /HPF (0.0-6.0) 08/31/16 15:37 Urine RBC (Auto) 1.0 /HPF (0.0-6.0) 08/31/16 15:37 U Epithel Cells (Auto) < 1.0 /HPF (0-13.0) 08/31/16 15:37 Urine Bacteria (Auto) 1+ /HPF (Negative) 08/31/16 15:37 Hyaline Casts 5 /LPF 08/31/16 15:37 Urine Mucus Few /HPF 08/31/16 15:37 Blood Type O POSITIVE 09/08/16 11:00 Antibody Screen TNR 09/08/16 11:00 PATRICK Antibody Screen Negative 09/08/16 11:00 Crossmatch See Detail 09/08/16 11:00
[2016-09-15] MEDS: LEVEMIR SUB-Q SCH (22:16)
[2016-09-16] MEDS: DUONEB 0.5 MG-3 MG/3 ML SOLN IH SCH ×4 (01:53→19:42)
[2016-09-16] MEDS: LOPRESSOR PO SCH ×3 (05:04→18:11)
[2016-09-16] MEDS: PROAMATINE PO SCH ×4 (05:06→21:38)
[2016-09-16] MEDS: REGLAN IV SCH ×4 (05:09→18:07)
[2016-09-16 05:44] LABS: Hematocrit 26.2 % (30.3-42.9); Hemoglobin 8.6 gm/dl (10.1-14.3); Mean Corpuscular HGB Conc 33 % (30-34); Mean Corpuscular Hemoglobin 30 pg (28-32); Mean Corpuscular Volume 92 fl (79-97); Platelet Count 204 K/mm3 (140-440); Red Blood Count 2.84 M/mm3 (3.65-5.03); Red Cell Distribution Width 18.8 % (13.2-15.2); White Blood Count 9.1 K/mm3 (4.5-11.0)
[2016-09-16] MEDS: NOVOLOG SUB-Q SCH ×3 (05:53→17:59)
[2016-09-16 06:26] LABS: Anion Gap 13 mmol/L; BUN/Creatinine Ratio 83.33; Blood Urea Nitrogen 25 mg/dL (7-17); Calcium 7.6 mg/dL (8.4-10.2); Carbon Dioxide 27 mmol/L (22-30); Chloride 107.6 mmol/L (98-107); Glucose 134 mg/dL (65-100); Potassium 3.1 mmol/L (3.6-5.0); Sodium 144 mmol/L (137-145)
[2016-09-16] MEDS: POTASSIUM CHLORIDE FEEDTUBE SCH ×3 (08:19→12:45)
[2016-09-16] MEDS: FLAGYL 500 MG/100 ML 500 MG/100 ML BAG IV SCH ×2 (08:19→18:06)
--- NOTE | 2016-09-16 10:29 | Progress Note ---
Assessment and Plan - Patient Problems (1) RORY (acute kidney injury) Current Visit: No Status: Acute Plan to address problem: Acute Kidney Injury is hemodynamically mediated in the setting of hypotension / shock. Renal function has improved and stable. Follow renal function. (2) Hypokalemia Current Visit: Yes Status: Acute Plan to address problem: Replete K. (3) Shock Current Visit: Yes Status: Acute Plan to address problem: S/p Levophed. (4) Respiratory failure Current Visit: Yes Status: Acute Qualifiers: Chronicity: C Respiratory failure complication: R Plan to address problem: On vent. (5) Altered mental status Current Visit: Yes Status: Acute Qualifiers: Altered mental status type: unspecified Coma depth: C Coma timing: C Qualified Code(s): R41.82 - Altered mental status, unspecified (6) Anemia Current Visit: Yes Status: Acute Qualifiers: Anemia type: unspecified type Iron deficiency anemia type: I Vitamin B12 deficiency anemia type: V Folate deficiency anemia type: F Bone marrow failure anemia type: B Hemolytic anemia type: H Other causes of anemia: O Chronic kidney disease stage: C Qualified Code(s): D64.9 - Anemia, unspecified Subjective Date of service: 09/16/16 Principal diagnosis: Acute Hypoxemic Hypercapnic Resp Failure; Severe Sepsis Interval history: Patient remain on the vent. Objective - Vital Signs Vital signs: Vital Signs - 12hr 09/15/16 09/15/16 09/15/16 22:30 22:46 23:00 Temperature Pulse Rate 66 65 63 Pulse Rate [ Anterior Bilateral Throughout] Pulse Rate [ From Monitor] Respiratory 18 17 19 Rate Respiratory Rate [Anterior Bilateral Throughout] Blood Pressure 125/71 125/71 125/71 O2 Sat by Pulse 100 100 95 Oximetry 09/15/16 09/15/16 09/15/16 23:16 23:30 23:34 Temperature Pulse Rate 63 57 L 57 L Pulse Rate [ Anterior Bilateral Throughout] Pulse Rate [ From Monitor] Respiratory 22 19 Rate Respiratory Rate [Anterior Bilateral Throughout] Blood Pressure 140/89 140/89 140/89 O2 Sat by Pulse 100 100 100 Oximetry 09/15/16 09/16/16 09/16/16 23:46 00:00 00:16 Temperature 97.8 F Pulse Rate 63 60 66 Pulse Rate [ Anterior Bilateral Throughout] Pulse Rate [ 74 From Monitor] Respiratory 20 16 18 Rate Respiratory Rate [Anterior Bilateral Throughout] Blood Pressure 140/89 140/89 145/23 O2 Sat by Pulse 100 99 100 Oximetry 09/16/16 09/16/16 09/16/16 00:30 00:46 01:00 Temperature Pulse Rate 51 L 53 L 62 Pulse Rate [ Anterior Bilateral Throughout] Pulse Rate [ From Monitor] Respiratory 17 20 19 Rate Respiratory Rate [Anterior Bilateral Throughout] Blood Pressure 140/89 140/89 145/23 O2 Sat by Pulse 100 100 100 Oximetry 09/16/16 09/16/16 09/16/16 01:16 01:30 01:46 Temperature Pulse Rate 53 L 71 71 Pulse Rate [ Anterior Bilateral Throughout] Pulse Rate [ From Monitor] Respiratory 20 20 22 Rate Respiratory Rate [Anterior Bilateral Throughout] Blood Pressure 206/155 206/155 206/155 O2 Sat by Pulse 100 92 100 Oximetry 09/16/16 09/16/16 09/16/16 01:54 02:00 02:16 Temperature Pulse Rate 76 75 Pulse Rate [ 62 Anterior Bilateral Throughout] Pulse Rate [ From Monitor] Respiratory 25 H 23 Rate Respiratory 20 Rate [Anterior Bilateral Throughout] Blood Pressure 189/140 189/140 O2 Sat by Pulse 95 100 Oximetry 09/16/16 09/16/16 09/16/16 02:30 02:46 03:00 Temperature Pulse Rate 76 67 76 Pulse Rate [ Anterior Bilateral Throughout] Pulse Rate [ From Monitor] Respiratory 21 19 20 Rate Respiratory Rate [Anterior Bilateral Throughout] Blood Pressure 189/140 189/140 87/57 O2 Sat by Pulse 100 100 100 Oximetry 09/16/16 09/16/16 09/16/16 03:16 03:27 03:30 Temperature Pulse Rate 75 65 Pulse Rate [ Anterior Bilateral Throughout] Pulse Rate [ 76 From Monitor] Respiratory 19 20 Rate Respiratory Rate [Anterior Bilateral Throughout] Blood Pressure 87/57 87/57 O2 Sat by Pulse 100 100 100 Oximetry 09/16/16 09/16/16 09/16/16 03:45 03:46 04:00 Temperature 97.7 F Pulse Rate 69 75 69 Pulse Rate [ Anterior Bilateral Throughout] Pulse Rate [ From Monitor] Respiratory 20 22 Rate Respiratory Rate [Anterior Bilateral Throughout] Blood Pressure 87/57 87/57 87/57 O2 Sat by Pulse 100 100 99 Oximetry 09/16/16 09/16/16 09/16/16 04:16 04:30 04:46 Temperature Pulse Rate 61 79 70 Pulse Rate [ Anterior Bilateral Throughout] Pulse Rate [ From Monitor] Respiratory 19 23 19 Rate Respiratory Rate [Anterior Bilateral Throughout] Blood Pressure 154/96 87/57 87/57 O2 Sat by Pulse 100 100 100 Oximetry 09/16/16 09/16/16 09/16/16 05:00 05:04 05:16 Temperature Pulse Rate 69 71 67 Pulse Rate [ Anterior Bilateral Throughout] Pulse Rate [ From Monitor] Respiratory 21 21 Rate Respiratory Rate [Anterior Bilateral Throughout] Blood Pressure 113/62 154/96 113/62 O2 Sat by Pulse 100 100 Oximetry 09/16/16 09/16/16 09/16/16 05:30 05:46 06:00 Temperature Pulse Rate 70 59 L 79 Pulse Rate [ Anterior Bilateral Throughout] Pulse Rate [ From Monitor] Respiratory 21 22 18 Rate Respiratory Rate [Anterior Bilateral Throughout] Blood Pressure 113/62 113/62 219/80 O2 Sat by Pulse 100 100 93 Oximetry 09/16/16 09/16/16 09/16/16 06:16 06:30 06:46 Temperature Pulse Rate 67 71 69 Pulse Rate [ Anterior Bilateral Throughout] Pulse Rate [ From Monitor] Respiratory 30 H 22 21 Rate Respiratory Rate [Anterior Bilateral Throughout] Blood Pressure 219/80 219/80 219/80 O2 Sat by Pulse 100 100 100 Oximetry 09/16/16 09/16/16 09/16/16 07:00 07:16 07:30 Temperature Pulse Rate 61 63 63 Pulse Rate [ Anterior Bilateral Throughout] Pulse Rate [ From Monitor] Respiratory 22 22 20 Rate Respiratory Rate [Anterior Bilateral Throughout] Blood Pressure 219/80 170/20 170/20 O2 Sat by Pulse 99 90 Oximetry 09/16/16 09/16/16 09/16/16 07:46 08:00 08:10 Temperature 97.2 F L Pulse Rate 61 57 L 67 Pulse Rate [ Anterior Bilateral Throughout] Pulse Rate [ From Monitor] Respiratory 19 20 Rate Respiratory Rate [Anterior Bilateral Throughout] Blood Pressure 170/20 94/46 113/62 O2 Sat by Pulse 100 93 100 Oximetry 09/16/16 09/16/16 09/16/16 08:16 08:25 08:30 Temperature Pulse Rate 58 L 68 Pulse Rate [ 71 Anterior Bilateral Throughout] Pulse Rate [ From Monitor] Respiratory 19 22 Rate Respiratory 24 Rate [Anterior Bilateral Throughout] Blood Pressure 94/46 94/46 O2 Sat by Pulse 82 L 100 Oximetry 09/16/16 09/16/16 09/16/16 08:46 08:53 09:00 Temperature Pulse Rate 68 73 Pulse Rate [ 68 Anterior Bilateral Throughout] Pulse Rate [ From Monitor] Respiratory 22 24 Rate Respiratory 26 H Rate [Anterior Bilateral Throughout] Blood Pressure 94/46 94/46 O2 Sat by Pulse 60 L 98 Oximetry 09/16/16 09/16/16 09/16/16 09:16 09:30 09:46 Temperature Pulse Rate 89 83 81 Pulse Rate [ Anterior Bilateral Throughout] Pulse Rate [ From Monitor] Respiratory 21 20 22 Rate Respiratory Rate [Anterior Bilateral Throughout] Blood Pressure 95/72 95/72 95/72 O2 Sat by Pulse 49 L 97 96 Oximetry 09/16/16 10:00 Temperature Pulse Rate 73 Pulse Rate [ Anterior Bilateral Throughout] Pulse Rate [ From Monitor] Respiratory 20 Rate Respiratory Rate [Anterior Bilateral Throughout] Blood Pressure 208/111 O2 Sat by Pulse 88 Oximetry - General Appearance General appearance: well-developed, well-nourished, appears stated age, obese, intubated (FiO2 30%) EENT: ATNC Neck: supple Respiratory: Present: Other (coarse breath sounds) Cardiology: irregular, S1S2 Gastrointestinal: normoactive bowel sounds Integumentary: no rash Neurologic: obtunded Musculoskeletal: other (2+ edema of both LEs noted) - Lab 09/17/16 05:00 09/17/16 05:00 Most recent lab results Calcium 7.6 mg/dL (8.4-10.2) L 09/16/16 04:55 Phosphorus 3.60 mg/dL (2.5-4.5) 08/29/16 21:59 Magnesium 1.80 mg/dL (1.7-2.3) 09/13/16 05:50
[2016-09-16] MEDS: LOVENOX SUB-Q SCH (10:52)
[2016-09-16] MEDS: FERROUS SULFATE PO SCH (10:52)
[2016-09-16] MEDS: LASIX IV SCH (10:53)
[2016-09-16] MEDS: FOLVITE PO SCH (10:53)
[2016-09-16] MEDS: ROCEPHIN/NS 1 GM/50 ML 1 GM/50 ML BAG IV SCH (10:54)
[2016-09-16] MEDS: KEPPRA PO SCH ×2 (10:54→21:33)
[2016-09-16] MEDS: PROTONIX PO SCH (10:57)
--- NOTE | 2016-09-16 11:13 | Progress Note ---
Assessment and Plan (1) Respiratory failure Current Visit: Yes Status: Acute Qualifiers: Chronicity: C Respiratory failure complication: R Plan to address problem: - continue daytime PSV trials as tolerated - VAP bundle addressed - continue to Wean FIO2 for O2 sats>92% - continue VTE prophylaxis (SCD's re: thrombocytopenia) - continue Stress ulcer prophylaxis (Pantoprazole) - continuing sedation vacations while watching for any obvious seizure activity - continue Lung protective strategies - continue gentle diuresis now with better BP's and stopped IVF - she needs a tracheostomy and surgery re-consulted (2) Shock Current Visit: Yes Status: Acute Plan to address problem: - Treated as septic shock secondary to HCAP - off levophed now - continue strict glycemic control - completed AB's course; trending WBC - ID following - tapering off stress steroids now - continue midodrine for now (3) Acute on chronic diastolic (congestive) heart failure Current Visit: No Status: Acute Plan to address problem: - Documented EF 55% - continue gentle diuresis - Continue to monitoring renal function and electrolyte profile closely - continue to monitor urine output, electrolyte profile (4) Altered mental status Current Visit: Yes Status: Acute Qualifiers: Altered mental status type: unspecified Coma depth: C Coma timing: C Qualified Code(s): R41.82 - Altered mental status, unspecified Plan to address problem: - Neurology following - on keppra - weaned off ativan and will use prn now - TSH elevated and started on low dose levoxyl (5) Morbid obesity Current Visit: Yes Status: Acute Qualifiers: Obesity type: unspecified obesity type Qualified Code(s): E66.01 - Morbid ( severe) obesity due to excess calories - weight loss strategies once more stable - caloric intake per steelscope operator at this point (6) Anemia Current Visit: Yes Status: Acute Qualifiers: Anemia type: unspecified type Iron deficiency anemia type: I Vitamin B12 deficiency anemia type: V Folate deficiency anemia type: F Bone marrow failure anemia type: B Hemolytic anemia type: H Other causes of anemia: O Qualified Code(s): D64.9 - Anemia, unspecified Plan to address problem: - no more coffee grounds noted - continuing PPI therapy - increased reglan frequency - advance tube feeds to goal as tolerated (7) Status epilepticus Current Visit: Yes Status: Acute Plan to address problem: - Continue AEDs - Neurology following - no obvious clinical seizure activity (8) 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 - This could be secondary to an intra-cranial process, however unable to obtain neuro-imaging, patient's weight exceeds allowable maximum (9) Discharge planning issues Current Visit: Yes Status: Acute Plan to address problem: - Continue current care. - need to determine appropriate power of sports attorney / legal healthcare product support sales representative prior to any tentative withdrawal of care - son came by and signed DNR order however no consensus on hospice care / withdrawal - transfer to LTAC once bed available (tentatively in am again) ..she remains critically ill on life sustaining interventions including MVS and at high risk for further deterioration including ....34' CCT Subjective Date of service: 09/16/16 Principal diagnosis: Acute Hypoxemic Hypercapnic Resp Failure; Severe Sepsis Interval history: Seen and examined at bedside; 24 hour events reviewed; nursing and respiratory care staff consulted; no adverse overnight events reported to me; refused LTAC admission and will now need to get trach and PEG here; no new issues otherwise but remains on MVS with AMS Objective Vital Signs - 12hr 09/15/16 09/15/16 09/15/16 23:16 23:30 23:34 Temperature Pulse Rate 63 57 L 57 L Pulse Rate [ Anterior Bilateral Throughout] Pulse Rate [ From Monitor] Respiratory 22 19 Rate Respiratory Rate [Anterior Bilateral Throughout] Blood Pressure 140/89 140/89 140/89 O2 Sat by Pulse 100 100 100 Oximetry 09/15/16 09/16/16 09/16/16 23:46 00:00 00:16 Temperature 97.8 F Pulse Rate 63 60 66 Pulse Rate [ Anterior Bilateral Throughout] Pulse Rate [ 74 From Monitor] Respiratory 20 16 18 Rate Respiratory Rate [Anterior Bilateral Throughout] Blood Pressure 140/89 140/89 145/23 O2 Sat by Pulse 100 99 100 Oximetry 09/16/16 09/16/16 09/16/16 00:30 00:46 01:00 Temperature Pulse Rate 51 L 53 L 62 Pulse Rate [ Anterior Bilateral Throughout] Pulse Rate [ From Monitor] Respiratory 17 20 19 Rate Respiratory Rate [Anterior Bilateral Throughout] Blood Pressure 140/89 140/89 145/23 O2 Sat by Pulse 100 100 100 Oximetry 09/16/16 09/16/16 09/16/16 01:16 01:30 01:46 Temperature Pulse Rate 53 L 71 71 Pulse Rate [ Anterior Bilateral Throughout] Pulse Rate [ From Monitor] Respiratory 20 20 22 Rate Respiratory Rate [Anterior Bilateral Throughout] Blood Pressure 206/155 206/155 206/155 O2 Sat by Pulse 100 92 100 Oximetry 09/16/16 09/16/16 09/16/16 01:54 02:00 02:16 Temperature Pulse Rate 76 75 Pulse Rate [ 62 Anterior Bilateral Throughout] Pulse Rate [ From Monitor] Respiratory 25 H 23 Rate Respiratory 20 Rate [Anterior Bilateral Throughout] Blood Pressure 189/140 189/140 O2 Sat by Pulse 95 100 Oximetry 09/16/16 09/16/16 09/16/16 02:30 02:46 03:00 Temperature Pulse Rate 76 67 76 Pulse Rate [ Anterior Bilateral Throughout] Pulse Rate [ From Monitor] Respiratory 21 19 20 Rate Respiratory Rate [Anterior Bilateral Throughout] Blood Pressure 189/140 189/140 87/57 O2 Sat by Pulse 100 100 100 Oximetry 09/16/16 09/16/16 09/16/16 03:16 03:27 03:30 Temperature Pulse Rate 75 65 Pulse Rate [ Anterior Bilateral Throughout] Pulse Rate [ 76 From Monitor] Respiratory 19 20 Rate Respiratory Rate [Anterior Bilateral Throughout] Blood Pressure 87/57 87/57 O2 Sat by Pulse 100 100 100 Oximetry 09/16/16 09/16/16 09/16/16 03:45 03:46 04:00 Temperature 97.7 F Pulse Rate 69 75 69 Pulse Rate [ Anterior Bilateral Throughout] Pulse Rate [ From Monitor] Respiratory 20 22 Rate Respiratory Rate [Anterior Bilateral Throughout] Blood Pressure 87/57 87/57 87/57 O2 Sat by Pulse 100 100 99 Oximetry 09/16/16 09/16/16 09/16/16 04:16 04:30 04:46 Temperature Pulse Rate 61 79 70 Pulse Rate [ Anterior Bilateral Throughout] Pulse Rate [ From Monitor] Respiratory 19 23 19 Rate Respiratory Rate [Anterior Bilateral Throughout] Blood Pressure 154/96 87/57 87/57 O2 Sat by Pulse 100 100 100 Oximetry 09/16/16 09/16/16 09/16/16 05:00 05:04 05:16 Temperature Pulse Rate 69 71 67 Pulse Rate [ Anterior Bilateral Throughout] Pulse Rate [ From Monitor] Respiratory 21 21 Rate Respiratory Rate [Anterior Bilateral Throughout] Blood Pressure 113/62 154/96 113/62 O2 Sat by Pulse 100 100 Oximetry 09/16/16 09/16/16 09/16/16 05:30 05:46 06:00 Temperature Pulse Rate 70 59 L 79 Pulse Rate [ Anterior Bilateral Throughout] Pulse Rate [ From Monitor] Respiratory 21 22 18 Rate Respiratory Rate [Anterior Bilateral Throughout] Blood Pressure 113/62 113/62 219/80 O2 Sat by Pulse 100 100 93 Oximetry 09/16/16 09/16/16 09/16/16 06:16 06:30 06:46 Temperature Pulse Rate 67 71 69 Pulse Rate [ Anterior Bilateral Throughout] Pulse Rate [ From Monitor] Respiratory 30 H 22 21 Rate Respiratory Rate [Anterior Bilateral Throughout] Blood Pressure 219/80 219/80 219/80 O2 Sat by Pulse 100 100 100 Oximetry 09/16/16 09/16/16 09/16/16 07:00 07:16 07:30 Temperature Pulse Rate 61 63 63 Pulse Rate [ Anterior Bilateral Throughout] Pulse Rate [ From Monitor] Respiratory 22 22 20 Rate Respiratory Rate [Anterior Bilateral Throughout] Blood Pressure 219/80 170/20 170/20 O2 Sat by Pulse 99 90 Oximetry 09/16/16 09/16/16 09/16/16 07:46 08:00 08:10 Temperature 97.2 F L Pulse Rate 61 57 L 67 Pulse Rate [ Anterior Bilateral Throughout] Pulse Rate [ From Monitor] Respiratory 19 20 Rate Respiratory Rate [Anterior Bilateral Throughout] Blood Pressure 170/20 94/46 113/62 O2 Sat by Pulse 100 93 100 Oximetry 09/16/16 09/16/16 09/16/16 08:16 08:25 08:30 Temperature Pulse Rate 58 L 68 Pulse Rate [ 71 Anterior Bilateral Throughout] Pulse Rate [ From Monitor] Respiratory 19 22 Rate Respiratory 24 Rate [Anterior Bilateral Throughout] Blood Pressure 94/46 94/46 O2 Sat by Pulse 82 L 100 Oximetry 09/16/16 09/16/16 09/16/16 08:46 08:53 09:00 Temperature Pulse Rate 68 73 Pulse Rate [ 68 Anterior Bilateral Throughout] Pulse Rate [ From Monitor] Respiratory 22 24 Rate Respiratory 26 H Rate [Anterior Bilateral Throughout] Blood Pressure 94/46 94/46 O2 Sat by Pulse 60 L 98 Oximetry 09/16/16 09/16/16 09/16/16 09:16 09:30 09:46 Temperature Pulse Rate 89 83 81 Pulse Rate [ Anterior Bilateral Throughout] Pulse Rate [ From Monitor] Respiratory 21 20 22 Rate Respiratory Rate [Anterior Bilateral Throughout] Blood Pressure 95/72 95/72 95/72 O2 Sat by Pulse 49 L 97 96 Oximetry 09/16/16 10:00 Temperature Pulse Rate 73 Pulse Rate [ Anterior Bilateral Throughout] Pulse Rate [ From Monitor] Respiratory 20 Rate Respiratory Rate [Anterior Bilateral Throughout] Blood Pressure 208/111 O2 Sat by Pulse 88 Oximetry Constitutional: no acute distress, other (encephalopathic) Eyes: non-icteric ENT: oropharynx moist Neck: supple, no lymphadenopathy Effort: mildly labored Ascultation: Bilateral: diminished breath sounds (bases), rales Cardiovascular: regular rate and rhythm Gastrointestinal: hypoactive bowel sounds, soft, non-tender, non-distended Integumentary: normal Extremities: no cyanosis, pulses normal, no ischemia or petechiae, edema (1++) Neurologic: unable to assess, other (lethargic) Psychiatric: other (sedated) CBC and BMP: 09/16/16 04:55 09/16/16 04:55 ABG, PT/INR, D-dimer: ABG POC ABG pH 7.454 (7.35-7.45) H 09/09/16 12:33 POC ABG pCO2 38.4 (35-45) 09/09/16 12:33 POC ABG pO2 75 (80-105) L 09/09/16 12:33 POC ABG HCO3 27.0 09/09/16 12:33 POC ABG Total CO2 28 09/09/16 12:33 POC ABG O2 Sat 96 09/09/16 12:33 PT/INR, D-dimer PT 13.8 Sec. (12.2-14.9) 09/10/16 05:10 INR 1.07 (0.87-1.13) 09/10/16 05:10 Abnormal lab findings: Abnormal Labs 08/29/16 08/30/16 08/30/16 21:59 00:16 05:39 WBC RBC Hgb Hct MCH MCHC RDW Plt Count Seg Neutrophils % Seg Neuts % (Manual) Nucleated RBC % Seg Neutrophils # Seg Neutrophils # Man PT INR POC ABG pH POC ABG pCO2 POC ABG pO2 Sodium Potassium Chloride Carbon Dioxide BUN Creatinine Glucose POC Glucose 106 H 128 H Lactic Acid Calcium Total Bilirubin AST ALT Alkaline Phosphatase Ammonia Troponin T C-Reactive Protein Total Protein Albumin Prealbumin 0.120 L TSH Crossmatch 08/30/16 08/30/16 08/30/16 10:30 10:30 11:12 WBC 11.1 H RBC 3.16 L Hgb 8.7 L Hct 29.9 L MCH MCHC 29 L RDW 25.0 H Plt Count Seg Neutrophils % 78.6 H Seg Neuts % (Manual) Nucleated RBC % Seg Neutrophils # 8.7 H Seg Neutrophils # Man PT INR POC ABG pH POC ABG pCO2 POC ABG pO2 Sodium 135 L Potassium Chloride Carbon Dioxide 20 L BUN Creatinine 1.5 H Glucose 148 H POC Glucose 142 H Lactic Acid Calcium 7.2 L Total Bilirubin 1.30 H AST 143 H ALT Alkaline Phosphatase 392 H Ammonia Troponin T C-Reactive Protein Total Protein 6.1 L Albumin 1.2 L Prealbumin TSH Crossmatch 08/30/16 08/30/16 08/30/16 17:41 18:03 18:18 WBC RBC Hgb Hct MCH MCHC RDW Plt Count Seg Neutrophils % Seg Neuts % (Manual) Nucleated RBC % Seg Neutrophils # Seg Neutrophils # Man PT INR POC ABG pH 7.316 L POC ABG pCO2 POC ABG pO2 44 L 59 L Sodium Potassium Chloride Carbon Dioxide BUN Creatinine Glucose POC Glucose 150 H Lactic Acid Calcium Total Bilirubin AST ALT Alkaline Phosphatase Ammonia Troponin T C-Reactive Protein Total Protein Albumin Prealbumin TSH Crossmatch 08/30/16 08/30/16 08/31/16 22:20 22:20 00:11 WBC RBC Hgb Hct MCH MCHC RDW Plt Count Seg Neutrophils % Seg Neuts % (Manual) Nucleated RBC % Seg Neutrophils # Seg Neutrophils # Man PT INR POC ABG pH POC ABG pCO2 POC ABG pO2 Sodium Potassium Chloride Carbon Dioxide BUN Creatinine Glucose POC Glucose 133 H Lactic Acid 2.30 H* Calcium Total Bilirubin AST ALT Alkaline Phosphatase Ammonia Troponin T C-Reactive Protein 10.20 H Total Protein Albumin Prealbumin TSH Crossmatch 08/31/16 08/31/16 08/31/16 04:20 04:20 04:20 WBC 18.3 H RBC 3.19 L Hgb 8.8 L Hct 30.0 L MCH 27 L MCHC 29 L RDW 23.9 H Plt Count Seg Neutrophils % Seg Neuts % (Manual) Nucleated RBC % Seg Neutrophils # Seg Neutrophils # Man PT 16.8 H INR 1.37 H POC ABG pH POC ABG pCO2 POC ABG pO2 Sodium 136 L Potassium Chloride Carbon Dioxide 19 L BUN Creatinine 1.5 H Glucose 125 H POC Glucose Lactic Acid Calcium 7.0 L Total Bilirubin 1.50 H AST 131 H ALT Alkaline Phosphatase 431 H Ammonia Troponin T C-Reactive Protein Total Protein 6.2 L Albumin 1.2 L Prealbumin TSH Crossmatch 08/31/16 08/31/16 08/31/16 04:20 05:22 05:24 WBC RBC Hgb Hct MCH MCHC RDW Plt Count Seg Neutrophils % Seg Neuts % (Manual) Nucleated RBC % Seg Neutrophils # Seg Neutrophils # Man PT INR POC ABG pH POC ABG pCO2 POC ABG pO2 142 H Sodium Potassium Chloride Carbon Dioxide BUN Creatinine Glucose POC Glucose 123 H Lactic Acid Calcium Total Bilirubin AST ALT Alkaline Phosphatase Ammonia 70.0 H Troponin T C-Reactive Protein Total Protein Albumin Prealbumin TSH Crossmatch 08/31/16 08/31/16 08/31/16 12:10 15:45 17:38 WBC RBC Hgb Hct MCH MCHC RDW Plt Count Seg Neutrophils % Seg Neuts % (Manual) Nucleated RBC % Seg Neutrophils # Seg Neutrophils # Man PT INR POC ABG pH POC ABG pCO2 POC ABG pO2 Sodium 136 L Potassium Chloride Carbon Dioxide 21 L BUN Creatinine 1.5 H Glucose 160 H POC Glucose 147 H 151 H Lactic Acid Calcium 6.9 L Total Bilirubin AST ALT Alkaline Phosphatase Ammonia Troponin T 0.109 H* D C-Reactive Protein Total Protein Albumin Prealbumin TSH Crossmatch 09/01/16 09/01/16 09/01/16 00:09 04:00 04:00 WBC 14.8 H RBC 2.89 L Hgb 7.8 L Hct 27.2 L MCH 27 L MCHC 29 L RDW 24.4 H Plt Count Seg Neutrophils % Seg Neuts % (Manual) Nucleated RBC % Seg Neutrophils # Seg Neutrophils # Man PT 18.2 H INR 1.51 H POC ABG pH POC ABG pCO2 POC ABG pO2 Sodium Potassium Chloride Carbon Dioxide BUN Creatinine Glucose POC Glucose 192 H Lactic Acid Calcium Total Bilirubin AST ALT Alkaline Phosphatase Ammonia Troponin T C-Reactive Protein Total Protein Albumin Prealbumin TSH Crossmatch 09/01/16 09/01/16 09/01/16 04:00 05:28 11:28 WBC RBC Hgb Hct MCH MCHC RDW Plt Count Seg Neutrophils % Seg Neuts % (Manual) Nucleated RBC % Seg Neutrophils # Seg Neutrophils # Man PT INR POC ABG pH POC ABG pCO2 POC ABG pO2 Sodium Potassium Chloride Carbon Dioxide 20 L BUN Creatinine 1.6 H Glucose 183 H POC Glucose 189 H 207 H Lactic Acid Calcium 6.9 L Total Bilirubin 1.30 H AST 138 H ALT Alkaline Phosphatase 520 H Ammonia Troponin T C-Reactive Protein Total Protein 6.1 L Albumin 1.2 L Prealbumin TSH Crossmatch 09/01/16 09/01/16 09/02/16 16:56 23:49 05:00 WBC RBC Hgb Hct MCH MCHC RDW Plt Count Seg Neutrophils % Seg Neuts % (Manual) Nucleated RBC % Seg Neutrophils # Seg Neutrophils # Man PT 18.0 H INR 1.49 H POC ABG pH POC ABG pCO2 POC ABG pO2 Sodium Potassium Chloride Carbon Dioxide BUN Creatinine Glucose POC Glucose 250 H 307 H Lactic Acid Calcium Total Bilirubin AST ALT Alkaline Phosphatase Ammonia Troponin T C-Reactive Protein Total Protein Albumin Prealbumin TSH Crossmatch 09/02/16 09/02/16 09/02/16 05:00 05:00 05:45 WBC 12.3 H RBC 2.57 L Hgb 7.1 L Hct 23.4 L MCH MCHC RDW 23.9 H Plt Count Seg Neutrophils % Seg Neuts % (Manual) 72.0 H Nucleated RBC % 25.0 H Seg Neutrophils # Seg Neutrophils # Man 8.9 H PT INR POC ABG pH POC ABG pCO2 POC ABG pO2 Sodium Potassium Chloride Carbon Dioxide BUN Creatinine 1.4 H Glucose 299 H POC Glucose 327 H Lactic Acid Calcium 7.0 L Total Bilirubin AST ALT Alkaline Phosphatase Ammonia Troponin T C-Reactive Protein Total Protein Albumin Prealbumin TSH Crossmatch 09/02/16 09/02/16 09/02/16 12:22 17:22 23:24 WBC RBC Hgb Hct MCH MCHC RDW Plt Count Seg Neutrophils % Seg Neuts % (Manual) Nucleated RBC % Seg Neutrophils # Seg Neutrophils # Man PT INR POC ABG pH POC ABG pCO2 POC ABG pO2 Sodium Potassium Chloride Carbon Dioxide BUN Creatinine Glucose POC Glucose 310 H 358 H 286 H Lactic Acid Calcium Total Bilirubin AST ALT Alkaline Phosphatase Ammonia Troponin T C-Reactive Protein Total Protein Albumin Prealbumin TSH Crossmatch 09/03/16 09/03/16 09/03/16 04:10 04:10 04:10 WBC 11.8 H RBC 2.29 L Hgb 6.1 L Hct 21.0 L MCH 27 L MCHC 29 L RDW 24.1 H Plt Count Seg Neutrophils % Seg Neuts % (Manual) Nucleated RBC % Seg Neutrophils # Seg Neutrophils # Man PT 17.6 H INR 1.45 H POC ABG pH POC ABG pCO2 POC ABG pO2 Sodium Potassium Chloride Carbon Dioxide BUN Creatinine 1.4 H Glucose 301 H POC Glucose Lactic Acid Calcium 7.0 L Total Bilirubin AST ALT Alkaline Phosphatase Ammonia Troponin T C-Reactive Protein Total Protein Albumin Prealbumin TSH Crossmatch 09/03/16 09/03/16 09/03/16 05:59 11:36 17:42 WBC RBC Hgb Hct MCH MCHC RDW Plt Count Seg Neutrophils % Seg Neuts % (Manual) Nucleated RBC % Seg Neutrophils # Seg Neutrophils # Man PT INR POC ABG pH POC ABG pCO2 POC ABG pO2 Sodium Potassium Chloride Carbon Dioxide BUN Creatinine Glucose POC Glucose 351 H 285 H 259 H Lactic Acid Calcium Total Bilirubin AST ALT Alkaline Phosphatase Ammonia Troponin T C-Reactive Protein Total Protein Albumin Prealbumin TSH Crossmatch 09/03/16 09/04/16 09/04/16 23:00 04:27 05:36 WBC RBC Hgb Hct MCH MCHC RDW Plt Count Seg Neutrophils % Seg Neuts % (Manual) Nucleated RBC % Seg Neutrophils # Seg Neutrophils # Man PT INR POC ABG pH 7.544 H POC ABG pCO2 30.8 L POC ABG pO2 78 L Sodium Potassium Chloride Carbon Dioxide BUN Creatinine Glucose POC Glucose 192 H 228 H Lactic Acid Calcium Total Bilirubin AST ALT Alkaline Phosphatase Ammonia Troponin T C-Reactive Protein Total Protein Albumin Prealbumin TSH Crossmatch 09/04/16 09/04/16 09/04/16 06:37 06:37 06:39 WBC 21.0 H RBC 2.22 L Hgb 6.0 L Hct 20.1 L MCH 27 L MCHC RDW 24.3 H Plt Count Seg Neutrophils % Seg Neuts % (Manual) Nucleated RBC % Seg Neutrophils # Seg Neutrophils # Man PT 16.8 H INR 1.37 H POC ABG pH POC ABG pCO2 POC ABG pO2 Sodium Potassium Chloride Carbon Dioxide BUN Creatinine 1.4 H Glucose 201 H POC Glucose Lactic Acid Calcium 7.1 L Total Bilirubin AST ALT Alkaline Phosphatase Ammonia Troponin T C-Reactive Protein Total Protein Albumin Prealbumin TSH Crossmatch 09/04/16 09/04/16 09/04/16 12:14 15:47 17:41 WBC RBC Hgb Hct MCH MCHC RDW Plt Count Seg Neutrophils % Seg Neuts % (Manual) Nucleated RBC % Seg Neutrophils # Seg Neutrophils # Man PT INR POC ABG pH POC ABG pCO2 POC ABG pO2 Sodium Potassium Chloride Carbon Dioxide BUN Creatinine Glucose POC Glucose 176 H 218 H Lactic Acid Calcium Total Bilirubin AST ALT Alkaline Phosphatase Ammonia Troponin T C-Reactive Protein Total Protein Albumin Prealbumin TSH Crossmatch See Detail 09/04/16 09/04/16 09/05/16 21:59 23:48 04:30 WBC RBC Hgb Hct MCH MCHC RDW Plt Count Seg Neutrophils % Seg Neuts % (Manual) Nucleated RBC % Seg Neutrophils # Seg Neutrophils # Man PT 17.2 H INR 1.41 H POC ABG pH POC ABG pCO2 POC ABG pO2 Sodium Potassium Chloride Carbon Dioxide BUN Creatinine Glucose POC Glucose 170 H 121 H Lactic Acid Calcium Total Bilirubin AST ALT Alkaline Phosphatase Ammonia Troponin T C-Reactive Protein Total Protein Albumin Prealbumin TSH Crossmatch 09/05/16 09/05/16 09/05/16 04:30 04:30 05:09 WBC 31.9 H RBC 3.11 L Hgb 8.5 L Hct 28.3 L D MCH 27 L MCHC RDW 21.0 H Plt Count Seg Neutrophils % Seg Neuts % (Manual) Nucleated RBC % Seg Neutrophils # Seg Neutrophils # Man PT INR POC ABG pH 7.226 L POC ABG pCO2 61.6 H POC ABG pO2 68 L Sodium 134 L Potassium 5.5 H Chloride 96.6 L Carbon Dioxide BUN 23 H Creatinine 1.6 H Glucose 116 H POC Glucose Lactic Acid Calcium 7.1 L Total Bilirubin AST ALT Alkaline Phosphatase Ammonia Troponin T C-Reactive Protein Total Protein Albumin Prealbumin TSH Crossmatch 09/05/16 09/05/16 09/05/16 05:33 12:08 17:32 WBC RBC Hgb Hct MCH MCHC RDW Plt Count Seg Neutrophils % Seg Neuts % (Manual) Nucleated RBC % Seg Neutrophils # Seg Neutrophils # Man PT INR POC ABG pH POC ABG pCO2 POC ABG pO2 Sodium Potassium Chloride Carbon Dioxide BUN Creatinine Glucose POC Glucose 114 H 147 H 174 H Lactic Acid Calcium Total Bilirubin AST ALT Alkaline Phosphatase Ammonia Troponin T C-Reactive Protein Total Protein Albumin Prealbumin TSH Crossmatch 09/06/16 09/06/16 09/06/16 03:30 03:30 03:30 WBC 25.4 H RBC 2.57 L Hgb 7.2 L Hct 22.8 L MCH MCHC RDW 20.9 H Plt Count 138 L Seg Neutrophils % Seg Neuts % (Manual) Nucleated RBC % Seg Neutrophils # Seg Neutrophils # Man PT 16.4 H INR 1.33 H POC ABG pH POC ABG pCO2 POC ABG pO2 Sodium Potassium Chloride Carbon Dioxide BUN 36 H Creatinine 1.9 H Glucose POC Glucose Lactic Acid Calcium 7.2 L Total Bilirubin AST ALT Alkaline Phosphatase Ammonia Troponin T C-Reactive Protein Total Protein Albumin Prealbumin TSH Crossmatch 09/06/16 09/06/16 09/06/16 11:07 12:03 14:44 WBC RBC Hgb Hct MCH MCHC RDW Plt Count Seg Neutrophils % Seg Neuts % (Manual) Nucleated RBC % Seg Neutrophils # Seg Neutrophils # Man PT INR POC ABG pH POC ABG pCO2 POC ABG pO2 Sodium Potassium Chloride Carbon Dioxide BUN Creatinine Glucose POC Glucose 61 L 55 L Lactic Acid Calcium Total Bilirubin AST ALT Alkaline Phosphatase Ammonia Troponin T 0.080 H C-Reactive Protein Total Protein Albumin Prealbumin TSH Crossmatch 09/06/16 09/06/16 09/07/16 21:05 23:53 03:36 WBC RBC Hgb Hct MCH MCHC RDW Plt Count Seg Neutrophils % Seg Neuts % (Manual) Nucleated RBC % Seg Neutrophils # Seg Neutrophils # Man PT INR POC ABG pH POC ABG pCO2 POC ABG pO2 Sodium Potassium Chloride Carbon Dioxide BUN Creatinine Glucose POC Glucose 140 H 178 H 243 H Lactic Acid Calcium Total Bilirubin AST ALT Alkaline Phosphatase Ammonia Troponin T C-Reactive Protein Total Protein Albumin Prealbumin TSH Crossmatch 09/07/16 09/07/16 09/07/16 03:42 03:42 05:04 WBC 17.3 H RBC 2.69 L Hgb 7.6 L Hct 23.8 L MCH MCHC RDW 20.5 H Plt Count 137 L Seg Neutrophils % Seg Neuts % (Manual) Nucleated RBC % Seg Neutrophils # Seg Neutrophils # Man PT INR POC ABG pH POC ABG pCO2 POC ABG pO2 Sodium Potassium 3.3 L Chloride Carbon Dioxide BUN 38 H Creatinine 1.6 H Glucose 201 H POC Glucose 241 H Lactic Acid Calcium 7.4 L Total Bilirubin AST ALT Alkaline Phosphatase Ammonia Troponin T C-Reactive Protein Total Protein Albumin Prealbumin TSH Crossmatch 09/07/16 09/07/16 09/07/16 11:46 17:41 23:18 WBC RBC Hgb Hct MCH MCHC RDW Plt Count Seg Neutrophils % Seg Neuts % (Manual) Nucleated RBC % Seg Neutrophils # Seg Neutrophils # Man PT INR POC ABG pH POC ABG pCO2 POC ABG pO2 Sodium Potassium Chloride Carbon Dioxide BUN Creatinine Glucose POC Glucose 313 H 227 H 116 H Lactic Acid Calcium Total Bilirubin AST ALT Alkaline Phosphatase Ammonia Troponin T C-Reactive Protein Total Protein Albumin Prealbumin TSH Crossmatch 09/08/16 09/08/16 09/08/16 04:00 04:00 05:15 WBC 18.4 H RBC 2.43 L Hgb 6.9 L Hct 21.5 L MCH MCHC RDW 20.5 H Plt Count 119 L Seg Neutrophils % Seg Neuts % (Manual) Nucleated RBC % Seg Neutrophils # Seg Neutrophils # Man PT INR POC ABG pH 7.458 H POC ABG pCO2 POC ABG pO2 177 H Sodium Potassium 3.5 L Chloride Carbon Dioxide BUN 37 H Creatinine 1.3 H Glucose POC Glucose Lactic Acid Calcium 7.1 L Total Bilirubin AST ALT Alkaline Phosphatase Ammonia Troponin T C-Reactive Protein Total Protein Albumin Prealbumin TSH Crossmatch 09/08/16 09/08/16 09/08/16 11:00 15:58 23:16 WBC RBC Hgb Hct MCH MCHC RDW Plt Count Seg Neutrophils % Seg Neuts % (Manual) Nucleated RBC % Seg Neutrophils # Seg Neutrophils # Man PT INR POC ABG pH POC ABG pCO2 POC ABG pO2 113 H Sodium Potassium Chloride Carbon Dioxide BUN Creatinine Glucose POC Glucose 40 L Lactic Acid Calcium Total Bilirubin AST ALT Alkaline Phosphatase Ammonia Troponin T C-Reactive Protein Total Protein Albumin Prealbumin TSH Crossmatch See Detail 09/09/16 09/09/16 09/09/16 05:02 12:33 18:10 WBC RBC Hgb Hct MCH MCHC RDW Plt Count Seg Neutrophils % Seg Neuts % (Manual) Nucleated RBC % Seg Neutrophils # Seg Neutrophils # Man PT INR POC ABG pH 7.454 H POC ABG pCO2 POC ABG pO2 75 L Sodium Potassium Chloride Carbon Dioxide BUN Creatinine Glucose POC Glucose 59 L Lactic Acid Calcium Total Bilirubin AST ALT Alkaline Phosphatase Ammonia Troponin T C-Reactive Protein Total Protein Albumin Prealbumin TSH 5.220 H Crossmatch 09/09/16 09/09/16 09/09/16 18:10 18:10 18:42 WBC 17.0 H RBC 2.90 L Hgb 8.5 L Hct 26.1 L MCH MCHC RDW 17.9 H Plt Count 126 L Seg Neutrophils % Seg Neuts % (Manual) Nucleated RBC % Seg Neutrophils # Seg Neutrophils # Man PT INR POC ABG pH POC ABG pCO2 POC ABG pO2 Sodium Potassium Chloride Carbon Dioxide BUN 36 H Creatinine Glucose 133 H POC Glucose 148 H Lactic Acid Calcium 6.9 L Total Bilirubin AST 253 H ALT 184 H Alkaline Phosphatase 729 H Ammonia Troponin T C-Reactive Protein Total Protein 5.1 L Albumin 1.7 L Prealbumin TSH Crossmatch 09/09/16 09/10/16 09/10/16 23:22 05:10 11:43 WBC RBC Hgb Hct MCH MCHC RDW Plt Count Seg Neutrophils % Seg Neuts % (Manual) Nucleated RBC % Seg Neutrophils # Seg Neutrophils # Man PT INR POC ABG pH POC ABG pCO2 POC ABG pO2 Sodium Potassium Chloride Carbon Dioxide BUN 35 H Creatinine Glucose 240 H POC Glucose 170 H 268 H Lactic Acid Calcium 6.8 L Total Bilirubin AST 226 H ALT 171 H Alkaline Phosphatase 710 H Ammonia Troponin T C-Reactive Protein Total Protein 5.2 L Albumin 1.7 L Prealbumin TSH Crossmatch 09/10/16 09/11/16 09/11/16 17:51 01:07 05:00 WBC RBC Hgb Hct MCH MCHC RDW Plt Count Seg Neutrophils % Seg Neuts % (Manual) Nucleated RBC % Seg Neutrophils # Seg Neutrophils # Man PT INR POC ABG pH POC ABG pCO2 POC ABG pO2 Sodium Potassium 2.9 L* Chloride Carbon Dioxide BUN 35 H Creatinine Glucose 274 H POC Glucose 334 H 223 H Lactic Acid Calcium 6.9 L Total Bilirubin AST 167 H ALT 145 H Alkaline Phosphatase 631 H Ammonia Troponin T C-Reactive Protein Total Protein 5.1 L Albumin 1.6 L Prealbumin TSH Crossmatch 09/11/16 09/11/16 09/11/16 05:01 12:16 17:12 WBC RBC Hgb Hct MCH MCHC RDW Plt Count Seg Neutrophils % Seg Neuts % (Manual) Nucleated RBC % Seg Neutrophils # Seg Neutrophils # Man PT INR POC ABG pH POC ABG pCO2 POC ABG pO2 Sodium Potassium Chloride Carbon Dioxide BUN Creatinine Glucose POC Glucose 305 H 219 H 171 H Lactic Acid Calcium Total Bilirubin AST ALT Alkaline Phosphatase Ammonia Troponin T C-Reactive Protein Total Protein Albumin Prealbumin TSH Crossmatch 09/11/16 09/12/16 09/12/16 23:35 03:33 05:00 WBC 12.9 H RBC 2.81 L Hgb 8.2 L Hct 25.4 L MCH MCHC RDW 17.9 H Plt Count Seg Neutrophils % Seg Neuts % (Manual) Nucleated RBC % Seg Neutrophils # Seg Neutrophils # Man PT INR POC ABG pH POC ABG pCO2 POC ABG pO2 Sodium Potassium Chloride Carbon Dioxide BUN Creatinine Glucose POC Glucose 216 H 183 H Lactic Acid Calcium Total Bilirubin AST ALT Alkaline Phosphatase Ammonia Troponin T C-Reactive Protein Total Protein Albumin Prealbumin TSH Crossmatch 09/12/16 09/12/16 09/12/16 05:00 15:15 18:30 WBC RBC Hgb Hct MCH MCHC RDW Plt Count Seg Neutrophils % Seg Neuts % (Manual) Nucleated RBC % Seg Neutrophils # Seg Neutrophils # Man PT INR POC ABG pH POC ABG pCO2 POC ABG pO2 Sodium Potassium 3.0 L 3.4 L Chloride Carbon Dioxide BUN 33 H Creatinine 0.5 L Glucose POC Glucose 215 H Lactic Acid Calcium 7.0 L Total Bilirubin AST ALT Alkaline Phosphatase Ammonia Troponin T C-Reactive Protein Total Protein Albumin Prealbumin TSH Crossmatch 09/12/16 09/13/16 09/13/16 23:17 05:50 05:50 WBC RBC 2.93 L Hgb 8.8 L Hct 26.7 L MCH MCHC RDW 18.0 H Plt Count Seg Neutrophils % Seg Neuts % (Manual) Nucleated RBC % Seg Neutrophils # Seg Neutrophils # Man PT INR POC ABG pH POC ABG pCO2 POC ABG pO2 Sodium Potassium 2.6 L* D Chloride Carbon Dioxide BUN 29 H Creatinine 0.5 L Glucose 106 H POC Glucose 155 H Lactic Acid Calcium 7.3 L Total Bilirubin AST ALT Alkaline Phosphatase Ammonia Troponin T C-Reactive Protein Total Protein Albumin Prealbumin TSH Crossmatch 09/13/16 09/13/16 09/13/16 05:53 11:43 15:07 WBC RBC Hgb Hct MCH MCHC RDW Plt Count Seg Neutrophils % Seg Neuts % (Manual) Nucleated RBC % Seg Neutrophils # Seg Neutrophils # Man PT INR POC ABG pH POC ABG pCO2 POC ABG pO2 Sodium Potassium 2.8 L* Chloride Carbon Dioxide BUN Creatinine Glucose POC Glucose 119 H 129 H Lactic Acid Calcium Total Bilirubin AST ALT Alkaline Phosphatase Ammonia Troponin T C-Reactive Protein Total Protein Albumin Prealbumin TSH Crossmatch 09/13/16 09/13/16 09/14/16 17:39 23:30 05:34 WBC RBC Hgb Hct MCH MCHC RDW Plt Count Seg Neutrophils % Seg Neuts % (Manual) Nucleated RBC % Seg Neutrophils # Seg Neutrophils # Man PT INR POC ABG pH POC ABG pCO2 POC ABG pO2 Sodium Potassium Chloride Carbon Dioxide BUN Creatinine Glucose POC Glucose 144 H 196 H 175 H Lactic Acid Calcium Total Bilirubin AST ALT Alkaline Phosphatase Ammonia Troponin T C-Reactive Protein Total Protein Albumin Prealbumin TSH Crossmatch 09/14/16 09/14/16 09/14/16 06:24 06:24 12:41 WBC RBC 2.82 L Hgb 8.4 L Hct 25.7 L MCH MCHC RDW 18.0 H Plt Count Seg Neutrophils % Seg Neuts % (Manual) Nucleated RBC % Seg Neutrophils # Seg Neutrophils # Man PT INR POC ABG pH POC ABG pCO2 POC ABG pO2 Sodium Potassium 2.9 L* Chloride 107.3 H Carbon Dioxide BUN 26 H Creatinine 0.4 L Glucose 169 H POC Glucose 184 H Lactic Acid Calcium 7.5 L Total Bilirubin AST ALT Alkaline Phosphatase Ammonia Troponin T C-Reactive Protein Total Protein Albumin Prealbumin TSH Crossmatch 09/14/16 09/14/16 09/14/16 14:50 17:57 23:34 WBC RBC Hgb Hct MCH MCHC RDW Plt Count Seg Neutrophils % Seg Neuts % (Manual) Nucleated RBC % Seg Neutrophils # Seg Neutrophils # Man PT INR POC ABG pH POC ABG pCO2 POC ABG pO2 Sodium Potassium 3.3 L Chloride Carbon Dioxide BUN Creatinine Glucose POC Glucose 191 H 178 H Lactic Acid Calcium Total Bilirubin AST ALT Alkaline Phosphatase Ammonia Troponin T C-Reactive Protein Total Protein Albumin Prealbumin TSH Crossmatch 09/15/16 09/15/16 09/15/16 05:02 07:57 07:57 WBC RBC 3.04 L Hgb 9.2 L Hct 28.2 L MCH MCHC RDW 18.8 H Plt Count Seg Neutrophils % Seg Neuts % (Manual) Nucleated RBC % Seg Neutrophils # Seg Neutrophils # Man PT INR POC ABG pH POC ABG pCO2 POC ABG pO2 Sodium Potassium Chloride 107.2 H Carbon Dioxide BUN 26 H Creatinine 0.4 L Glucose 160 H POC Glucose 192 H Lactic Acid Calcium 7.7 L Total Bilirubin AST ALT Alkaline Phosphatase Ammonia Troponin T C-Reactive Protein Total Protein Albumin Prealbumin TSH Crossmatch 09/15/16 09/15/16 09/15/16 11:23 17:51 23:45 WBC RBC Hgb Hct MCH MCHC RDW Plt Count Seg Neutrophils % Seg Neuts % (Manual) Nucleated RBC % Seg Neutrophils # Seg Neutrophils # Man PT INR POC ABG pH POC ABG pCO2 POC ABG pO2 Sodium Potassium Chloride Carbon Dioxide BUN Creatinine Glucose POC Glucose 232 H 240 H 251 H Lactic Acid Calcium Total Bilirubin AST ALT Alkaline Phosphatase Ammonia Troponin T C-Reactive Protein Total Protein Albumin Prealbumin TSH Crossmatch 09/16/16 09/16/16 09/16/16 04:55 04:55 05:38 WBC RBC 2.84 L Hgb 8.6 L Hct 26.2 L MCH MCHC RDW 18.8 H Plt Count Seg Neutrophils % Seg Neuts % (Manual) Nucleated RBC % Seg Neutrophils # Seg Neutrophils # Man PT INR POC ABG pH POC ABG pCO2 POC ABG pO2 Sodium Potassium 3.1 L Chloride 107.6 H Carbon Dioxide BUN 25 H Creatinine 0.3 L Glucose 134 H POC Glucose 157 H Lactic Acid Calcium 7.6 L Total Bilirubin AST ALT Alkaline Phosphatase Ammonia Troponin T C-Reactive Protein Total Protein Albumin Prealbumin TSH Crossmatch Allied health notes reviewed: RT
--- NOTE | 2016-09-16 11:43 | Progress Note ---
Assessment and Plan Altered mental status Acute respiratory failure intubated on the vent Lactic acidosis Anemia requiring blood transfusion Obesity Decubitus ulcers Sepsis Diabetes AND/DNR status EF 50-55% on echo 06/2016. Conservative cardiac management. Will sign off Subjective Date of service: 09/16/16 Principal diagnosis: Acute Hypoxemic Hypercapnic Resp Failure; Severe Sepsis Interval history: Patient seen and examined Patient is unresponsive, intubated and mechanically ventilated Objective Vital Signs Temp Pulse Pulse Pulse Resp Resp BP 09/16/16 10:00 73 20 208/111 09/16/16 09:46 81 22 95/72 09/16/16 09:30 83 20 95/72 09/16/16 09:16 89 21 95/72 09/16/16 09:00 73 24 94/46 09/16/16 08:53 68 26 H 09/16/16 08:46 68 22 94/46 09/16/16 08:30 68 22 94/46 09/16/16 08:25 71 24 09/16/16 08:16 58 L 19 94/46 09/16/16 08:10 67 113/62 09/16/16 08:00 97.2 F L 57 L 20 94/46 09/16/16 07:46 61 19 170/20 09/16/16 07:30 63 20 170/20 09/16/16 07:16 63 22 170/20 09/16/16 07:00 61 22 219/80 09/16/16 06:46 69 21 219/80 09/16/16 06:30 71 22 219/80 09/16/16 06:16 67 30 H 219/80 09/16/16 06:00 79 18 219/80 09/16/16 05:46 59 L 22 113/62 09/16/16 05:30 70 21 113/62 09/16/16 05:16 67 21 113/62 09/16/16 05:04 71 154/96 09/16/16 05:00 69 21 113/62 09/16/16 04:46 70 19 87/57 09/16/16 04:30 79 23 87/57 09/16/16 04:16 61 19 154/96 09/16/16 04:00 97.7 F 69 22 87/57 09/16/16 03:46 75 20 87/57 09/16/16 03:45 69 87/57 09/16/16 03:30 65 20 87/57 09/16/16 03:27 76 09/16/16 03:16 75 19 87/57 09/16/16 03:00 76 20 87/57 09/16/16 02:46 67 19 189/140 09/16/16 02:30 76 21 189/140 09/16/16 02:16 75 23 189/140 09/16/16 02:00 76 25 H 189/140 09/16/16 01:54 62 20 09/16/16 01:46 71 22 206/155 09/16/16 01:30 71 20 206/155 09/16/16 01:16 53 L 20 206/155 09/16/16 01:00 62 19 145/23 09/16/16 00:46 53 L 20 140/89 09/16/16 00:30 51 L 17 140/89 09/16/16 00:16 66 18 145/23 09/16/16 00:00 97.8 F 60 74 16 140/89 09/15/16 23:46 63 20 140/89 09/15/16 23:34 57 L 140/89 09/15/16 23:30 57 L 19 140/89 09/15/16 23:16 63 22 140/89 09/15/16 23:00 63 19 125/71 09/15/16 22:46 65 17 125/71 09/15/16 22:30 66 18 125/71 09/15/16 22:20 69 125/71 09/15/16 22:16 73 18 125/71 09/15/16 22:00 62 18 73/42 09/15/16 21:46 66 19 73/42 09/15/16 21:30 79 18 73/42 09/15/16 21:16 78 18 73/42 09/15/16 21:00 73 16 112/52 09/15/16 20:46 78 19 112/52 09/15/16 20:36 82 09/15/16 20:30 81 18 112/52 09/15/16 20:28 73 19 112/52 09/15/16 20:16 64 19 112/52 09/15/16 20:00 97.3 F L 62 55 L 15 112/52 06/06/17 19:46 62 18 149/62 06/06/17 19:39 62 14 09/15/16 19:31 53 L 18 149/62 09/15/16 19:30 72 18 149/62 09/15/16 19:29 59 L 16 09/15/16 19:16 50 L 19 149/62 09/15/16 19:00 62 16 149/62 09/15/16 18:46 61 16 125/71 09/15/16 18:30 76 19 125/71 09/15/16 18:16 76 19 125/71 09/15/16 18:00 79 16 125/71 09/15/16 17:46 82 17 107/74 09/15/16 17:34 81 147/88 09/15/16 17:30 81 19 107/74 09/15/16 17:16 78 18 107/74 09/15/16 17:00 81 19 107/74 09/15/16 16:46 51 L 16 107/74 09/15/16 16:30 52 L 17 107/74 09/15/16 16:16 57 L 16 107/74 09/15/16 16:00 97.5 F L 60 15 131/74 09/15/16 15:46 69 16 131/74 09/15/16 15:30 54 L 17 131/74 09/15/16 15:16 65 17 131/74 09/15/16 15:00 73 16 131/74 09/15/16 14:46 72 16 131/74 09/15/16 14:30 71 13 131/74 09/15/16 14:16 75 17 131/74 09/15/16 14:14 81 20 09/15/16 14:00 77 17 131/74 09/15/16 13:46 64 17 115/76 09/15/16 13:33 66 16 09/15/16 13:30 64 16 115/76 09/15/16 13:16 66 16 115/76 09/15/16 13:00 66 16 109/60 09/15/16 12:46 67 15 109/60 09/15/16 12:39 48 L 109/60 09/15/16 12:30 58 L 15 109/60 09/15/16 12:16 62 17 109/60 09/15/16 12:00 97.5 F L 61 16 132/91 09/15/16 11:46 63 16 132/91 Pulse Ox 09/16/16 10:00 88 09/16/16 09:46 96 09/16/16 09:30 97 09/16/16 09:16 49 L 09/16/16 09:00 98 09/16/16 08:53 09/16/16 08:46 60 L 09/16/16 08:30 100 09/16/16 08:25 09/16/16 08:16 82 L 09/16/16 08:10 100 09/16/16 08:00 93 09/16/16 07:46 100 09/16/16 07:30 90 09/16/16 07:16 99 09/16/16 07:00 09/16/16 06:46 100 09/16/16 06:30 100 09/16/16 06:16 100 09/16/16 06:00 93 09/16/16 05:46 100 09/16/16 05:30 100 09/16/16 05:16 100 09/16/16 05:04 09/16/16 05:00 100 09/16/16 04:46 100 09/16/16 04:30 100 09/16/16 04:16 100 09/16/16 04:00 99 09/16/16 03:46 100 09/16/16 03:45 100 09/16/16 03:30 100 09/16/16 03:27 100 09/16/16 03:16 100 09/16/16 03:00 100 09/16/16 02:46 100 09/16/16 02:30 100 09/16/16 02:16 100 09/16/16 02:00 95 09/16/16 01:54 09/16/16 01:46 100 09/16/16 01:30 92 09/16/16 01:16 100 09/16/16 01:00 100 09/16/16 00:46 100 09/16/16 00:30 100 09/16/16 00:16 100 09/16/16 00:00 99 09/15/16 23:46 100 09/15/16 23:34 100 09/15/16 23:30 100 09/15/16 23:16 100 09/15/16 23:00 95 09/15/16 22:46 100 09/15/16 22:30 100 09/15/16 22:20 09/15/16 22:16 83 L 09/15/16 22:00 100 09/15/16 21:46 100 09/15/16 21:30 100 09/15/16 21:16 100 09/15/16 21:00 100 09/15/16 20:46 09/15/16 20:36 09/15/16 20:30 100 09/15/16 20:28 100 09/15/16 20:16 100 09/15/16 20:00 100 09/15/16 19:46 100 09/15/16 19:39 09/15/16 19:31 100 09/15/16 19:30 100 09/15/16 19:29 09/15/16 19:16 100 09/15/16 19:00 100 09/15/16 18:46 100 09/15/16 18:30 100 09/15/16 18:16 100 09/15/16 18:00 100 09/15/16 17:46 100 09/15/16 17:34 09/15/16 17:30 92 09/15/16 17:16 100 09/15/16 17:00 100 09/15/16 16:46 100 09/15/16 16:30 100 09/15/16 16:16 100 09/15/16 16:00 100 09/15/16 15:46 100 09/15/16 15:30 100 09/15/16 15:16 100 09/15/16 15:00 100 09/15/16 14:46 100 09/15/16 14:30 100 09/15/16 14:16 95 09/15/16 14:14 09/15/16 14:00 87 09/15/16 13:46 100 09/15/16 13:33 09/15/16 13:30 97 09/15/16 13:16 100 09/15/16 13:00 100 09/15/16 12:46 100 09/15/16 12:39 09/15/16 12:30 97 09/15/16 12:16 94 09/15/16 12:00 100 09/15/16 11:46 100 - Physical Examination General: Other (intubated on the vent) HEENT: Positive: PERRL, Normocephaly, Mucus Membranes Moist Neck: Positive: neck supple. Negative: JVD/HJR Cardiac: Positive: Reg Rate and Rhythm Lungs: Positive: Ventilated Respirations Neuro: Positive: Other (sedated, on the vent) Abdomen: Positive: Unremarkable, Soft Skin: Positive: Clear Extremities: Absent: edema - Labs and Meds CBC 09/16/16 Range/Units 04:55 WBC 9.1 (4.5-11.0) K/mm3 RBC 2.84 L (3.65-5.03) M/mm3 Hgb 8.6 L (10.1-14.3) gm/dl Hct 26.2 L (30.3-42.9) % Plt Count 204 (140-440) K/mm3 Comprehensive Metabolic Panel 09/16/16 Range/Units 04:55 Sodium 144 (137-145) mmol/L Potassium 3.1 L (3.6-5.0) mmol/L Chloride 107.6 H (98-107) mmol/L Carbon Dioxide 27 (22-30) mmol/L BUN 25 H (7-17) mg/dL Creatinine 0.3 L (0.7-1.2) mg/dL Glucose 134 H (65-100) mg/dL Calcium 7.6 L (8.4-10.2) mg/dL - Allied health notes Allied health notes reviewed: RT
[2016-09-16] MEDS: SYNTHROID IV SCH (12:45)
--- NOTE | 2016-09-16 14:54 | Progress Note ---
Assessment and Plan Assessment and plan: Patient is a 61-year-old morbid obese woman with a history of congestive heart failure, severe protein calorie malnutrition (bilateral tenriism muscle severe wasting, hypothenar muscle wasting) with BMI of 81.6, functional quadriplegia, type 2 diabetes mellitus, hypertension, multiple skin breakdown between legs and thighs who presented to the hospital via EMS with AMS. 2D echocardiogram with ejection fraction of 50-55%. During the past admission, patient was recommended for placement but refused. On presentation to ED, patient was felt to be unable to maintain her airways and intubated the ER since 08/29/16. 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, poa: supportative care -Acute on chronic diastolic congestive heart failure: treated with diuresis -Acute on chronic respiratory failure, intubated > 96 hours -Septic shock on on IV solucorticef and midodrine -Severe anemia s/p blood transfusion: monitor cbc closely altered -Paroxysmal atrial fibrillation -Non-ST elevated PA type 2: Conservative management -Acute on chronic kidney disease III, likely secondary to vasomotor nephropathy- POA -Transaminitis-elevated alkaline phosphatase and AST: continue to monitor -Severe protein calorie malnutrition albumin 1.2 -Morbid obesity BMI 81.6 -Mulitple PRESSURE ULCERS-POA: consulted wound care -uncontrolled dm: increased ssi -Acute anemia with drop in HCT resolved, received 5 units of PRBC transfused -Levaphed still off -Unable to get CT head due to weight issues Disposition: LTAC once accepted 09/04/16 , boyfriend, Tad agreed to blood transfusion, hgb is 6.0 will transfuse 2 units==>h/h steady, continue to monitor 09/05/16: Overnight was very eventful. New issue: Status epilepticus most likely due to anoxic brain injury, poa. She is back on 8 mcg of Levophed, which had weaned off up to the point of seizure activity Patient had status epilepticus before receiving blood transfusions. She was given multiple doses of Ativan and was still having breakthrough seizures. She was given phenobarbital and Dilantin but still having seizures. I started propofol drip which is helping. She still on IV Ativan drip also. Difficult family dynamics: Her son (she has multiple children), Srikanth and sister Leanne were at her bedside and well as her boyfriend who is not her legal , which he told me. They are upset because they didn't know patient was in the hospital. It appears the gentleman in the room is her boyfriend and not her legal He also did not notify the family the patient was here. That gentleman who is her boyfriend dropped the patient's wallet and our security called the number inside the wallet which was patient's mother's number and this is how the family found out that patient was in the hospital. I was told by RN, that patient has no , patient has 7 siblings and they are estranged from mother. No legal POA but sister Leanne is active in sister's life. Her boyfriend name is Tad Vieyra and he has consistently been at her beside, holding her hand and being supportive. 09/10/16 (resumed care): Trying to get to LTAC, still on 2 mcg of Levaphed but not sedated==>?Significant anoxic brain injury most likely poa, Ethic committee consulted because some family members want to withdraw. 09/11/16, Trach aspirated GNR, continue abx pending identification, off levaphed today. Trying to get to LTAC, they can trach her there. Only [facility] takes her insurance 09/12/16 Trach aspirate still pending, new issue of hypothermia, responded to [facility], tube feeding low rate due to high residuals, abd xray unremarkable. Potassium replaced. No restraints needs, no sedation needed, poor prognosis 09/15/16(resumed care): new issue seizure, gave 1mg iv ativan x 1. Awaiting to go to [facility] 09/16/16: cpm, no new seizures. History Interval history: Patient seen and examined. Follow up on respiratory failure. Patient still intubated. Overnight uneventful. Hospitalist Physical - Physical exam Narrative exam: GEN: Critically ill, morbid obese BMI 81.6, intubated HEENT: Pupils are pinpoint and reactive, ET tube in place NECK: SUPPLE, NO THYROMEGALY, NO JVD, NO LAD CVS: regular irregular NORMAL S1S2 LUNGS/CHEST: TA B, NORMAL CHEST EXPANSION B, GOOD AIR ENTRY B ABD: SOFT, NONDISTENDED GBS, NO REBOUND OR GUARDING MSK: Spontaneous movement of extremities NEURO: CN 2-12 GROSSLY INTACT, doesn't follow commands PSY: Confused - Constitutional Vitals: Temp Pulse Resp BP Pulse Ox 97.6 F 86 26 H 113/71 80 L 09/16/16 12:00 09/16/16 14:10 09/16/16 14:10 09/16/16 14:00 09/16/16 14:00 General appearance: Present: other (morbidly obese) Results - Labs CBC & Chem 7: 09/16/16 04:55 09/16/16 04:55 Labs: Laboratory Last Values WBC 9.1 K/mm3 (4.5-11.0) 09/16/16 04:55 RBC 2.84 M/mm3 (3.65-5.03) L 09/16/16 04:55 Hgb 8.6 gm/dl (10.1-14.3) L 09/16/16 04:55 Hct 26.2 % (30.3-42.9) L 09/16/16 04:55 MCV 92 fl (79-97) 09/16/16 04:55 MCH 30 pg (28-32) 09/16/16 04:55 MCHC 33 % (30-34) 09/16/16 04:55 RDW 18.8 % (13.2-15.2) H 09/16/16 04:55 Plt Count 204 K/mm3 (140-440) 09/16/16 04:55 Lymph % (Auto) 15.6 % (13.4-35.0) 08/30/16 10:30 [place] % (Auto) 5.1 % (0.0-7.3) 08/30/16 10:30 Eos % (Auto) 0.6 % (0.0-4.3) 08/30/16 10:30 Baso % (Auto) 0.1 % (0.0-1.8) 08/30/16 10:30 Lymph # 1.7 K/mm3 (1.2-5.4) 08/30/16 10:30 [place] # 0.6 K/mm3 (0.0-0.8) 08/30/16 10:30 Eos # 0.1 K/mm3 (0.0-0.4) 08/30/16 10:30 Baso # 0.0 K/mm3 (0.0-0.1) 08/30/16 10:30 Add Manual Diff Complete 09/02/16 05:00 Total Counted 100 09/02/16 05:00 Seg Neutrophils % 78.6 % (40.0-70.0) H 08/30/16 10:30 Seg Neuts % (Manual) 72.0 % (40.0-70.0) H 09/02/16 05:00 Band Neutrophils % 9.0 % 09/02/16 05:00 Lymphocytes % (Manual) 15.0 % (13.4-35.0) 09/02/16 05:00 Reactive Lymphs % (Man) 0 % 09/02/16 05:00 Monocytes % (Manual) 4.0 % (0.0-7.3) 09/02/16 05:00 Eosinophils % (Manual) 0 % (0.0-4.3) 09/02/16 05:00 Basophils % (Manual) 0 % (0.0-1.8) 09/02/16 05:00 Metamyelocytes % 0 % 09/02/16 05:00 Myelocytes % 0 % 09/02/16 05:00 Promyelocytes % 0 % 09/02/16 05:00 Blast Cells % 0 % 09/02/16 05:00 Nucleated RBC % 25.0 % (0.0-0.9) H 09/02/16 05:00 Seg Neutrophils # 8.7 K/mm3 (1.8-7.7) H 08/30/16 10:30 Seg Neutrophils # Man 8.9 K/mm3 (1.8-7.7) H 09/02/16 05:00 Band Neutrophils # 1.1 K/mm3 09/02/16 05:00 Lymphocytes # (Manual) 1.8 K/mm3 (1.2-5.4) 09/02/16 05:00 Abs React Lymphs (Man) 0.0 K/mm3 09/02/16 05:00 Monocytes # (Manual) 0.5 K/mm3 (0.0-0.8) 09/02/16 05:00 Eosinophils # (Manual) 0.0 K/mm3 (0.0-0.4) 09/02/16 05:00 Basophils # (Manual) 0.0 K/mm3 (0.0-0.1) 09/02/16 05:00 Metamyelocytes # 0.0 K/mm3 09/02/16 05:00 Myelocytes # 0.0 K/mm3 09/02/16 05:00 Promyelocytes # 0.0 K/mm3 09/02/16 05:00 Blast Cells # 0.0 K/mm3 09/02/16 05:00 WBC Morphology Not Reportable 09/02/16 05:00 Hypersegmented Neuts Not Reportable 09/02/16 05:00 Hyposegmented Neuts Not Reportable 09/02/16 05:00 Hypogranular Neuts Not Reportable 09/02/16 05:00 Smudge Cells Not Reportable 09/02/16 05:00 Toxic Granulation Not Reportable 09/02/16 05:00 Toxic Vacuolation Not Reportable 09/02/16 05:00 Dohle Bodies Not Reportable 09/02/16 05:00 Pelger-Huet Anomaly Not Reportable 09/02/16 05:00 Feli Rods Not Reportable 09/02/16 05:00 Platelet Estimate Consistent w auto 09/02/16 05:00 Clumped Platelets Not Reportable 09/02/16 05:00 Plt Clumps, EDTA Not Reportable 09/02/16 05:00 Large Platelets Not Reportable 09/02/16 05:00 Giant Platelets Not Reportable 09/02/16 05:00 Platelet Satelliting Not Reportable 09/02/16 05:00 Plt Morphology Comment Not Reportable 09/02/16 05:00 RBC Morphology Not Reportable 09/02/16 05:00 Dimorphic RBCs Not Reportable 09/02/16 05:00 Polychromasia Rare 09/02/16 05:00 Hypochromasia Not Reportable 09/02/16 05:00 Poikilocytosis Not Reportable 09/02/16 05:00 Anisocytosis 1+ 09/02/16 05:00 Microcytosis Not Reportable 09/02/16 05:00 Macrocytosis 1+ 09/02/16 05:00 Spherocytes Not Reportable 09/02/16 05:00 Pappenheimer Bodies Not Reportable 09/02/16 05:00 Sickle Cells Not Reportable 09/02/16 05:00 Target Cells Not Reportable 09/02/16 05:00 Tear Drop Cells Not Reportable 09/02/16 05:00 Ovalocytes Not Reportable 09/02/16 05:00 Helmet Cells Not Reportable 09/02/16 05:00 Patterson-Cochran Bodies Not Reportable 09/02/16 05:00 [place] Rings Not Reportable 09/02/16 05:00 Dana Cells Not Reportable 09/02/16 05:00 Bite Cells Not Reportable 09/02/16 05:00 Crenated Cell Not Reportable 09/02/16 05:00 Elliptocytes Not Reportable 09/02/16 05:00 Acanthocytes (Spur) Not Reportable 09/02/16 05:00 Rouleaux Not Reportable 09/02/16 05:00 Hemoglobin C Crystals Not Reportable 09/02/16 05:00 Schistocytes Not Reportable 09/02/16 05:00 Malaria parasites Not Reportable 09/02/16 05:00 Manny Bodies Not Reportable 09/02/16 05:00 Hem Pathologist Commnt No 09/02/16 05:00 PT 13.8 Sec. (12.2-14.9) 09/10/16 05:10 INR 1.07 (0.87-1.13) 09/10/16 05:10 APTT 29.5 Sec. (24.2-36.6) 08/29/16 17:40 POC ABG pH 7.454 (7.35-7.45) H 09/09/16 12:33 POC ABG pCO2 38.4 (35-45) 09/09/16 12:33 POC ABG pO2 75 (80-105) L 09/09/16 12:33 POC ABG HCO3 27.0 09/09/16 12:33 POC ABG Total CO2 28 09/09/16 12:33 POC ABG O2 Sat 96 09/09/16 12:33 POC ABG Base Excess 3 09/09/16 12:33 VBG pH 7.366 (7.320-7.420) 08/29/16 17:40 FiO2 30 % 09/09/16 12:33 Sodium 144 mmol/L (137-145) 09/16/16 04:55 Potassium 3.1 mmol/L (3.6-5.0) L 09/16/16 04:55 Chloride 107.6 mmol/L (98-107) H 09/16/16 04:55 Carbon Dioxide 27 mmol/L (22-30) 09/16/16 04:55 Anion Gap 13 mmol/L 09/16/16 04:55 BUN 25 mg/dL (7-17) H 09/16/16 04:55 Creatinine 0.3 mg/dL (0.7-1.2) L 09/16/16 04:55 Estimated GFR > 60 ml/min 09/16/16 04:55 BUN/Creatinine Ratio 83.33 % 09/16/16 04:55 Glucose 134 mg/dL (65-100) H 09/16/16 04:55 POC Glucose 137 (70-105) H 09/16/16 11:53 Lactic Acid 1.90 mmol/L (0.7-2.0) 09/07/16 15:00 Calcium 7.6 mg/dL (8.4-10.2) L 09/16/16 04:55 Phosphorus 3.60 mg/dL (2.5-4.5) 08/29/16 21:59 Magnesium 1.80 mg/dL (1.7-2.3) 09/13/16 05:50 Total Bilirubin 0.70 mg/dL (0.1-1.2) 09/11/16 05:00 AST 167 units/L (5-40) H 09/11/16 05:00 ALT 145 units/L (7-56) H 09/11/16 05:00 Alkaline Phosphatase 631 units/L (35-129) H 09/11/16 05:00 Ammonia 39.0 umol/L (25-60) 09/07/16 15:00 Total Creatine Kinase 36 units/L (30-135) 09/06/16 11:07 CK-MB (CK-2) < 1.0 ng/mL (0.0-4.0) 09/06/16 11:07 CK-MB (CK-2) Rel Index 2.7 (0-4) 09/06/16 11:07 Troponin T 0.080 ng/mL (0.00-0.029) H 09/06/16 11:07 C-Reactive Protein 10.20 mg/dL (0.00-1.30) H 08/30/16 22:20 NT-Pro-B Natriuret Pep 1712 pg/mL (0-900) H 08/29/16 17:40 Total Protein 5.1 g/dL (6.3-8.2) L 09/11/16 05:00 Albumin 1.6 g/dL (3.9-5) L 09/11/16 05:00 Albumin/Globulin Ratio 0.5 % 09/11/16 05:00 Prealbumin 0.120 g/L (0.200-0.400) L 08/29/16 21:59 Triglycerides 225 mg/dL (2-149) H 08/29/16 17:40 Cholesterol 130 mg/dL (50-199) 08/29/16 17:40 LDL Cholesterol Direct 82 mg/dL (50-130) 08/29/16 17:40 HDL Cholesterol 3 mg/dL (40-59) L 08/29/16 17:40 Cholesterol/HDL Ratio 43.33 % 08/29/16 17:40 TSH 5.220 mlU/mL (0.270-4.200) H 09/09/16 18:10 Urine Color Yellow (Yellow) 08/31/16 15:37 Urine Turbidity Clear (Clear) 08/31/16 15:37 Urine pH 5.0 (5.0-7.0) 08/31/16 15:37 Ur Specific [place] 1.009 (1.003-1.030) 08/31/16 15:37 Urine Protein <15 mg/dl mg/dL (Negative) 08/31/16 15:37 Urine Glucose (UA) Neg mg/dL (Negative) 08/31/16 15:37 Urine Ketones Neg mg/dL (Negative) 08/31/16 15:37 Urine Blood Sm (Negative) 08/31/16 15:37 Urine Nitrite Neg (Negative) 08/31/16 15:37 Urine Bilirubin Neg (Negative) 08/31/16 15:37 Urine Urobilinogen < 2.0 mg/dL (<2.0) 08/31/16 15:37 Ur Leukocyte Esterase Sm (Negative) 08/31/16 15:37 Urine WBC (Auto) 3.0 /HPF (0.0-6.0) 08/31/16 15:37 Urine RBC (Auto) 1.0 /HPF (0.0-6.0) 08/31/16 15:37 U Epithel Cells (Auto) < 1.0 /HPF (0-13.0) 08/31/16 15:37 Urine Bacteria (Auto) 1+ /HPF (Negative) 08/31/16 15:37 Hyaline Casts 5 /LPF 08/31/16 15:37 Urine Mucus Few /HPF 08/31/16 15:37 Blood Type O POSITIVE 09/08/16 11:00 Antibody Screen TNR 09/08/16 11:00 PATRICK Antibody Screen Negative 09/08/16 11:00 Crossmatch See Detail 09/08/16 11:00
--- NOTE | 2016-09-16 17:03 | Progress Note ---
Assessment and Plan A/P: 1) We will have to obtain consent from the patient's family to proceed forward with the tracheostomy and PEG tube. Subjective Date of service: 09/16/16 Narrative: The patient remains intubated. Objective Vital Signs - 12hr 09/16/16 09/16/16 09/16/16 05:04 05:16 05:30 Temperature Pulse Rate 71 67 70 Pulse Rate [ Anterior Bilateral Throughout] Respiratory 21 21 Rate Respiratory Rate [Anterior Bilateral Throughout] Blood Pressure 154/96 113/62 113/62 O2 Sat by Pulse 100 100 Oximetry 09/16/16 09/16/16 09/16/16 05:46 06:00 06:16 Temperature Pulse Rate 59 L 79 67 Pulse Rate [ Anterior Bilateral Throughout] Respiratory 22 18 30 H Rate Respiratory Rate [Anterior Bilateral Throughout] Blood Pressure 113/62 219/80 219/80 O2 Sat by Pulse 100 93 100 Oximetry 09/16/16 09/16/16 09/16/16 06:30 06:46 07:00 Temperature Pulse Rate 71 69 61 Pulse Rate [ Anterior Bilateral Throughout] Respiratory 22 21 22 Rate Respiratory Rate [Anterior Bilateral Throughout] Blood Pressure 219/80 219/80 219/80 O2 Sat by Pulse 100 100 Oximetry 09/16/16 09/16/16 09/16/16 07:16 07:30 07:46 Temperature Pulse Rate 63 63 61 Pulse Rate [ Anterior Bilateral Throughout] Respiratory 22 20 19 Rate Respiratory Rate [Anterior Bilateral Throughout] Blood Pressure 170/20 170/20 170/20 O2 Sat by Pulse 99 90 100 Oximetry 09/16/16 09/16/16 09/16/16 08:00 08:10 08:16 Temperature 97.2 F L Pulse Rate 57 L 67 58 L Pulse Rate [ Anterior Bilateral Throughout] Respiratory 20 19 Rate Respiratory Rate [Anterior Bilateral Throughout] Blood Pressure 94/46 113/62 94/46 O2 Sat by Pulse 93 100 82 L Oximetry 09/16/16 09/16/16 09/16/16 08:25 08:30 08:46 Temperature Pulse Rate 68 68 Pulse Rate [ 71 Anterior Bilateral Throughout] Respiratory 22 22 Rate Respiratory 24 Rate [Anterior Bilateral Throughout] Blood Pressure 94/46 94/46 O2 Sat by Pulse 100 60 L Oximetry 09/16/16 09/16/16 09/16/16 08:53 09:00 09:16 Temperature Pulse Rate 73 89 Pulse Rate [ 68 Anterior Bilateral Throughout] Respiratory 24 21 Rate Respiratory 26 H Rate [Anterior Bilateral Throughout] Blood Pressure 94/46 95/72 O2 Sat by Pulse 98 49 L Oximetry 09/16/16 09/16/16 09/16/16 09:30 09:46 10:00 Temperature Pulse Rate 83 81 73 Pulse Rate [ Anterior Bilateral Throughout] Respiratory 20 22 20 Rate Respiratory Rate [Anterior Bilateral Throughout] Blood Pressure 95/72 95/72 208/111 O2 Sat by Pulse 97 96 88 Oximetry 09/16/16 09/16/16 09/16/16 10:16 10:30 10:45 Temperature Pulse Rate 64 99 H 81 Pulse Rate [ Anterior Bilateral Throughout] Respiratory 20 21 21 Rate Respiratory Rate [Anterior Bilateral Throughout] Blood Pressure 208/111 208/111 206/20 O2 Sat by Pulse 100 100 84 Oximetry 09/16/16 09/16/16 09/16/16 11:00 11:16 11:30 Temperature Pulse Rate 85 83 89 Pulse Rate [ Anterior Bilateral Throughout] Respiratory 20 21 22 Rate Respiratory Rate [Anterior Bilateral Throughout] Blood Pressure 126/69 126/69 126/69 O2 Sat by Pulse 100 71 L 100 Oximetry 09/16/16 09/16/16 09/16/16 11:46 12:00 12:16 Temperature 97.6 F Pulse Rate 72 74 70 Pulse Rate [ Anterior Bilateral Throughout] Respiratory 23 20 23 Rate Respiratory Rate [Anterior Bilateral Throughout] Blood Pressure 126/69 129/97 129/97 O2 Sat by Pulse 100 98 100 Oximetry 09/16/16 09/16/16 09/16/16 12:30 12:46 12:55 Temperature Pulse Rate 81 76 78 Pulse Rate [ Anterior Bilateral Throughout] Respiratory 22 21 Rate Respiratory Rate [Anterior Bilateral Throughout] Blood Pressure 129/97 129/97 113/71 O2 Sat by Pulse 100 89 99 Oximetry 09/16/16 09/16/16 09/16/16 13:00 13:16 13:30 Temperature Pulse Rate 84 78 73 Pulse Rate [ Anterior Bilateral Throughout] Respiratory 22 21 22 Rate Respiratory Rate [Anterior Bilateral Throughout] Blood Pressure 113/71 113/71 113/71 O2 Sat by Pulse 98 100 87 Oximetry 09/16/16 09/16/16 09/16/16 13:46 13:50 14:00 Temperature Pulse Rate 76 82 Pulse Rate [ 72 Anterior Bilateral Throughout] Respiratory 24 24 Rate Respiratory 26 H Rate [Anterior Bilateral Throughout] Blood Pressure 113/71 113/71 O2 Sat by Pulse 69 L 80 L Oximetry 09/16/16 09/16/16 09/16/16 14:10 14:16 14:30 Temperature Pulse Rate 73 73 Pulse Rate [ 86 Anterior Bilateral Throughout] Respiratory 24 20 Rate Respiratory 26 H Rate [Anterior Bilateral Throughout] Blood Pressure 113/71 149/58 O2 Sat by Pulse 48 L 100 Oximetry 09/16/16 09/16/16 14:46 15:46 Temperature 98.6 F Pulse Rate 72 Pulse Rate [ Anterior Bilateral Throughout] Respiratory 22 Rate Respiratory Rate [Anterior Bilateral Throughout] Blood Pressure 149/58 O2 Sat by Pulse 100 Oximetry - Neck no masses, trachea midline - Abdomen soft (morbidly obese) - Labs 09/16/16 04:55 09/16/16 04:55 Diabetes panel 09/16/16 Range/Units 04:55 Sodium 144 (137-145) mmol/L Potassium 3.1 L (3.6-5.0) mmol/L Chloride 107.6 H (98-107) mmol/L Carbon Dioxide 27 (22-30) mmol/L BUN 25 H (7-17) mg/dL Creatinine 0.3 L (0.7-1.2) mg/dL Glucose 134 H (65-100) mg/dL Calcium 7.6 L (8.4-10.2) mg/dL Calcium panel 09/16/16 Range/Units 04:55 Calcium 7.6 L (8.4-10.2) mg/dL Pituitary panel 09/16/16 Range/Units 04:55 Sodium 144 (137-145) mmol/L Potassium 3.1 L (3.6-5.0) mmol/L Chloride 107.6 H (98-107) mmol/L Carbon Dioxide 27 (22-30) mmol/L BUN 25 H (7-17) mg/dL Creatinine 0.3 L (0.7-1.2) mg/dL Glucose 134 H (65-100) mg/dL Calcium 7.6 L (8.4-10.2) mg/dL Adrenal panel 09/16/16 Range/Units 04:55 Sodium 144 (137-145) mmol/L Potassium 3.1 L (3.6-5.0) mmol/L Chloride 107.6 H (98-107) mmol/L Carbon Dioxide 27 (22-30) mmol/L BUN 25 H (7-17) mg/dL Creatinine 0.3 L (0.7-1.2) mg/dL Glucose 134 H (65-100) mg/dL Calcium 7.6 L (8.4-10.2) mg/dL
[2016-09-16] MEDS: LEVEMIR SUB-Q SCH (21:35)
[2016-09-17] MEDS: LOPRESSOR PO SCH ×5 (00:03→22:34)
[2016-09-17] MEDS: FLAGYL 500 MG/100 ML 500 MG/100 ML BAG IV SCH ×2 (00:04→09:10)
[2016-09-17] MEDS: NOVOLOG SUB-Q SCH ×4 (00:32→18:00)
[2016-09-17] MEDS: REGLAN IV SCH ×4 (00:32→19:57)
[2016-09-17] MEDS: DUONEB 0.5 MG-3 MG/3 ML SOLN IH SCH ×4 (02:40→20:12)
[2016-09-17] MEDS: PROAMATINE PO SCH ×3 (05:30→21:20)
[2016-09-17 06:50] LABS: Hematocrit 25.9 % (30.3-42.9); Hemoglobin 8.2 gm/dl (10.1-14.3); Mean Corpuscular HGB Conc 32 % (30-34); Mean Corpuscular Hemoglobin 30 pg (28-32); Mean Corpuscular Volume 94 fl (79-97); Platelet Count 209 K/mm3 (140-440); Red Blood Count 2.77 M/mm3 (3.65-5.03); Red Cell Distribution Width 19.1 % (13.2-15.2); White Blood Count 9.2 K/mm3 (4.5-11.0)
[2016-09-17 07:12] LABS: Anion Gap 13 mmol/L; BUN/Creatinine Ratio 96.66; Blood Urea Nitrogen 29 mg/dL (7-17); Calcium 7.4 mg/dL (8.4-10.2); Carbon Dioxide 27 mmol/L (22-30); Chloride 108.4 mmol/L (98-107); Glucose 117 mg/dL (65-100); Potassium 3.5 mmol/L (3.6-5.0); Sodium 145 mmol/L (137-145)
--- NOTE | 2016-09-17 07:54 | Progress Note ---
Assessment and Plan - Patient Problems (1) RORY (acute kidney injury) Current Visit: No Status: Acute Plan to address problem: Acute Kidney Injury is hemodynamically mediated in the setting of hypotension / shock. Renal function has improved and stable. Follow renal function. (2) Hypokalemia Current Visit: Yes Status: Acute Plan to address problem: Monitor K levels and replete as needed. (3) Shock Current Visit: Yes Status: Acute Plan to address problem: S/p Levophed. (4) Respiratory failure Current Visit: Yes Status: Acute Qualifiers: Chronicity: C Respiratory failure complication: R Plan to address problem: On vent. (5) Altered mental status Current Visit: Yes Status: Acute Qualifiers: Altered mental status type: unspecified Coma depth: C Coma timing: C Qualified Code(s): R41.82 - Altered mental status, unspecified (6) Anemia Current Visit: Yes Status: Acute Qualifiers: Anemia type: unspecified type Iron deficiency anemia type: I Vitamin B12 deficiency anemia type: V Folate deficiency anemia type: F Bone marrow failure anemia type: B Hemolytic anemia type: H Other causes of anemia: O Chronic kidney disease stage: C Qualified Code(s): D64.9 - Anemia, unspecified Subjective Date of service: 09/17/16 Principal diagnosis: Acute Hypoxemic Hypercapnic Resp Failure; Severe Sepsis Interval history: Patient remain on the vent. Objective - Vital Signs Vital signs: Vital Signs - 12hr 09/16/16 09/16/16 09/16/16 20:00 20:16 20:20 Temperature Pulse Rate 95 H 81 Pulse Rate [ 77 Anterior Bilateral Throughout] Pulse Rate [ From Monitor] Respiratory 21 24 Rate Respiratory 21 Rate [Anterior Bilateral Throughout] Blood Pressure 139/58 139/58 O2 Sat by Pulse 95 94 Oximetry 09/16/16 09/16/16 09/16/16 20:30 20:46 21:00 Temperature Pulse Rate 105 H 98 H 102 H Pulse Rate [ Anterior Bilateral Throughout] Pulse Rate [ From Monitor] Respiratory 24 20 25 H Rate Respiratory Rate [Anterior Bilateral Throughout] Blood Pressure 139/58 139/58 130/51 O2 Sat by Pulse 94 90 94 Oximetry 09/16/16 09/16/16 09/16/16 21:16 21:30 21:46 Temperature Pulse Rate 83 82 90 Pulse Rate [ Anterior Bilateral Throughout] Pulse Rate [ From Monitor] Respiratory 21 23 22 Rate Respiratory Rate [Anterior Bilateral Throughout] Blood Pressure 130/51 130/51 130/51 O2 Sat by Pulse 93 93 88 Oximetry 09/16/16 09/16/16 09/16/16 22:00 22:16 22:30 Temperature Pulse Rate 92 H 70 72 Pulse Rate [ Anterior Bilateral Throughout] Pulse Rate [ From Monitor] Respiratory 23 22 24 Rate Respiratory Rate [Anterior Bilateral Throughout] Blood Pressure 121/53 121/53 121/53 O2 Sat by Pulse 93 95 92 Oximetry 09/16/16 09/16/16 09/16/16 22:46 23:00 23:16 Temperature Pulse Rate 92 H 112 H 92 H Pulse Rate [ Anterior Bilateral Throughout] Pulse Rate [ From Monitor] Respiratory 22 22 20 Rate Respiratory Rate [Anterior Bilateral Throughout] Blood Pressure 121/53 121/53 121/53 O2 Sat by Pulse 97 99 100 Oximetry 09/16/16 09/16/16 09/16/16 23:30 23:31 23:46 Temperature Pulse Rate 116 H 104 H 86 Pulse Rate [ Anterior Bilateral Throughout] Pulse Rate [ From Monitor] Respiratory 26 H 26 H 22 Rate Respiratory Rate [Anterior Bilateral Throughout] Blood Pressure 167/103 167/103 167/103 O2 Sat by Pulse 100 100 100 Oximetry 09/16/16 09/17/16 09/17/16 23:59 00:00 00:03 Temperature 98.6 F Pulse Rate 101 H 93 H 80 Pulse Rate [ Anterior Bilateral Throughout] Pulse Rate [ 83 From Monitor] Respiratory 21 Rate Respiratory Rate [Anterior Bilateral Throughout] Blood Pressure 167/103 127/75 167/103 O2 Sat by Pulse 100 100 Oximetry 09/17/16 09/17/16 09/17/16 00:16 00:30 00:46 Temperature Pulse Rate 73 80 67 Pulse Rate [ Anterior Bilateral Throughout] Pulse Rate [ From Monitor] Respiratory 22 18 20 Rate Respiratory Rate [Anterior Bilateral Throughout] Blood Pressure 127/75 127/75 127/75 O2 Sat by Pulse 96 96 93 Oximetry 09/17/16 09/17/16 09/17/16 01:00 01:16 01:30 Temperature Pulse Rate 69 61 63 Pulse Rate [ Anterior Bilateral Throughout] Pulse Rate [ From Monitor] Respiratory 21 21 23 Rate Respiratory Rate [Anterior Bilateral Throughout] Blood Pressure 140/56 140/56 140/56 O2 Sat by Pulse 90 94 93 Oximetry 09/17/16 09/17/16 09/17/16 01:46 02:00 02:16 Temperature Pulse Rate 80 70 63 Pulse Rate [ Anterior Bilateral Throughout] Pulse Rate [ From Monitor] Respiratory 22 23 22 Rate Respiratory Rate [Anterior Bilateral Throughout] Blood Pressure 140/56 165/43 165/43 O2 Sat by Pulse 94 92 Oximetry 09/17/16 09/17/16 09/17/16 02:30 02:46 03:00 Temperature Pulse Rate 77 77 71 Pulse Rate [ Anterior Bilateral Throughout] Pulse Rate [ From Monitor] Respiratory 20 24 20 Rate Respiratory Rate [Anterior Bilateral Throughout] Blood Pressure 165/43 165/43 185/162 O2 Sat by Pulse 92 94 94 Oximetry 09/17/16 09/17/16 09/17/16 03:07 03:16 03:30 Temperature Pulse Rate 67 68 Pulse Rate [ 74 Anterior Bilateral Throughout] Pulse Rate [ From Monitor] Respiratory 23 22 Rate Respiratory 26 H Rate [Anterior Bilateral Throughout] Blood Pressure 185/162 185/162 O2 Sat by Pulse 100 99 Oximetry 09/17/16 09/17/16 09/17/16 03:46 04:00 04:16 Temperature 98.7 F Pulse Rate 89 81 62 Pulse Rate [ Anterior Bilateral Throughout] Pulse Rate [ From Monitor] Respiratory 22 22 24 Rate Respiratory Rate [Anterior Bilateral Throughout] Blood Pressure 132/50 132/50 144/45 O2 Sat by Pulse 99 99 100 Oximetry 09/17/16 09/17/16 09/17/16 04:30 04:46 05:00 Temperature Pulse Rate 70 47 L 74 Pulse Rate [ Anterior Bilateral Throughout] Pulse Rate [ From Monitor] Respiratory 23 25 H 27 H Rate Respiratory Rate [Anterior Bilateral Throughout] Blood Pressure 144/45 144/45 128/41 O2 Sat by Pulse 100 100 96 Oximetry 09/17/16 09/17/16 09/17/16 05:16 05:30 05:46 Temperature Pulse Rate 71 76 69 Pulse Rate [ Anterior Bilateral Throughout] Pulse Rate [ From Monitor] Respiratory 24 22 24 Rate Respiratory Rate [Anterior Bilateral Throughout] Blood Pressure 128/41 128/41 128/41 O2 Sat by Pulse 100 99 89 Oximetry 09/17/16 09/17/16 09/17/16 06:00 06:16 06:37 Temperature Pulse Rate 74 58 L 48 L Pulse Rate [ Anterior Bilateral Throughout] Pulse Rate [ From Monitor] Respiratory 23 22 22 Rate Respiratory Rate [Anterior Bilateral Throughout] Blood Pressure 155/85 155/85 155/85 O2 Sat by Pulse 88 92 100 Oximetry - General Appearance General appearance: well-developed, well-nourished, appears stated age, obese, intubated (FiO2 30%) EENT: ATNC Neck: supple Respiratory: Present: Other (coarse breath sounds) Cardiology: irregular, S1S2 Gastrointestinal: normoactive bowel sounds Integumentary: no rash Neurologic: obtunded Musculoskeletal: other (2+ edema of both LEs noted) - Lab 09/17/16 05:00 09/17/16 05:00 Most recent lab results Calcium 7.4 mg/dL (8.4-10.2) L 09/17/16 05:00 Phosphorus 3.60 mg/dL (2.5-4.5) 08/29/16 21:59 Magnesium 1.80 mg/dL (1.7-2.3) 09/13/16 05:50
[2016-09-17] MEDS: POTASSIUM CHLORIDE FEEDTUBE SCH (10:00)
[2016-09-17] MEDS: LOVENOX SUB-Q SCH (10:47)
[2016-09-17] MEDS: FERROUS SULFATE PO SCH (10:48)
[2016-09-17] MEDS: SYNTHROID IV SCH (10:49)
[2016-09-17] MEDS: FOLVITE PO SCH (10:49)
[2016-09-17] MEDS: PROTONIX PO SCH (10:50)
[2016-09-17] MEDS: KEPPRA PO SCH ×2 (10:50→21:20)
--- NOTE | 2016-09-17 12:08 | Progress Note ---
Assessment and Plan (1) Respiratory failure Current Visit: Yes Status: Acute Qualifiers: Chronicity: C Respiratory failure complication: R Plan to address problem: - continue daytime PSV trials as tolerated - VAP bundle addressed - continue to Wean FIO2 for O2 sats>92% - continue VTE prophylaxis (SCD's re: thrombocytopenia) - continue Stress ulcer prophylaxis (Pantoprazole) - continuing sedation vacations while watching for any obvious seizure activity - continue Lung protective strategies - continue gentle diuresis now with better BP's and stopped IVF - seen by surgery and consent to be obtained today for trach +/- PEG if technically feasible (2) Shock Current Visit: Yes Status: Acute Plan to address problem: - Treated as septic shock secondary to HCAP - off levophed now - continue strict glycemic control - completed AB's course; trending WBC - ID following - tapering off stress steroids now - continue midodrine for now but taper soon (3) Acute on chronic diastolic (congestive) heart failure Current Visit: No Status: Acute Plan to address problem: - Documented EF 55% - continue gentle diuresis - Continue to monitoring renal function and electrolyte profile closely - continue to monitor urine output, electrolyte profile (4) Altered mental status Current Visit: Yes Status: Acute Qualifiers: Altered mental status type: unspecified Coma depth: C Coma timing: C Qualified Code(s): R41.82 - Altered mental status, unspecified Plan to address problem: - Neurology following - on keppra - weaned off ativan and will use prn now - TSH elevated and started on low dose levoxyl (5) Morbid obesity Current Visit: Yes Status: Acute Qualifiers: Obesity type: unspecified obesity type Qualified Code(s): E66.01 - Morbid ( severe) obesity due to excess calories - weight loss strategies once more stable - caloric intake per systems test engineer at this point (6) Anemia Current Visit: Yes Status: Acute Qualifiers: Anemia type: unspecified type Iron deficiency anemia type: I Vitamin B12 deficiency anemia type: V Folate deficiency anemia type: F Bone marrow failure anemia type: B Hemolytic anemia type: H Other causes of anemia: O Qualified Code(s): D64.9 - Anemia, unspecified Plan to address problem: - no more coffee grounds noted - continuing PPI therapy - increased reglan frequency - advancing tube feeds to goal as tolerated (7) Status epilepticus Current Visit: Yes Status: Acute Plan to address problem: - Continue AEDs - Neurology following - no obvious clinical seizure activity (8) 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 - This could be secondary to an intra-cranial process, however unable to obtain neuro-imaging, patient's weight exceeds allowable maximum (9) Discharge planning issues Current Visit: Yes Status: Acute Plan to address problem: - Continue current care. - need to determine appropriate power of disbursing agent / legal healthcare mortician supplies sales representative prior to any tentative withdrawal of care - son came by and signed DNR order however no consensus on hospice care / withdrawal - LTAC refused admission ..she remains critically ill on life sustaining interventions including MVS and at high risk for further deterioration including ....30' CCT Subjective Date of service: 09/17/16 Principal diagnosis: Acute Hypoxemic Hypercapnic Resp Failure; Severe Sepsis Interval history: Seen and examined at bedside; 24 hour events reviewed; nursing and respiratory care staff consulted; no adverse overnight events reported to me; remains on MVS ; remains encephalopathic; tolerating tube feeds; no new issues respiratory-burch Objective Vital Signs - 12hr 09/17/16 09/17/16 09/17/16 00:16 00:30 00:46 Temperature Pulse Rate 73 80 67 Pulse Rate [ Anterior Bilateral Throughout] Respiratory 22 18 20 Rate Respiratory Rate [Anterior Bilateral Throughout] Blood Pressure 127/75 127/75 127/75 O2 Sat by Pulse 96 96 93 Oximetry 09/17/16 09/17/16 09/17/16 01:00 01:16 01:30 Temperature Pulse Rate 69 61 63 Pulse Rate [ Anterior Bilateral Throughout] Respiratory 21 21 23 Rate Respiratory Rate [Anterior Bilateral Throughout] Blood Pressure 140/56 140/56 140/56 O2 Sat by Pulse 90 94 93 Oximetry 09/17/16 09/17/16 09/17/16 01:46 02:00 02:16 Temperature Pulse Rate 80 70 63 Pulse Rate [ Anterior Bilateral Throughout] Respiratory 22 23 22 Rate Respiratory Rate [Anterior Bilateral Throughout] Blood Pressure 140/56 165/43 165/43 O2 Sat by Pulse 94 92 Oximetry 09/17/16 09/17/16 09/17/16 02:30 02:46 03:00 Temperature Pulse Rate 77 77 71 Pulse Rate [ Anterior Bilateral Throughout] Respiratory 20 24 20 Rate Respiratory Rate [Anterior Bilateral Throughout] Blood Pressure 165/43 165/43 185/162 O2 Sat by Pulse 92 94 94 Oximetry 09/17/16 09/17/16 09/17/16 03:07 03:16 03:30 Temperature Pulse Rate 67 68 Pulse Rate [ 74 Anterior Bilateral Throughout] Respiratory 23 22 Rate Respiratory 26 H Rate [Anterior Bilateral Throughout] Blood Pressure 185/162 185/162 O2 Sat by Pulse 100 99 Oximetry 09/17/16 09/17/16 09/17/16 03:46 04:00 04:16 Temperature 98.7 F Pulse Rate 89 81 62 Pulse Rate [ Anterior Bilateral Throughout] Respiratory 22 22 24 Rate Respiratory Rate [Anterior Bilateral Throughout] Blood Pressure 132/50 132/50 144/45 O2 Sat by Pulse 99 99 100 Oximetry 09/17/16 09/17/16 09/17/16 04:30 04:46 05:00 Temperature Pulse Rate 70 47 L 74 Pulse Rate [ Anterior Bilateral Throughout] Respiratory 23 25 H 27 H Rate Respiratory Rate [Anterior Bilateral Throughout] Blood Pressure 144/45 144/45 128/41 O2 Sat by Pulse 100 100 96 Oximetry 09/17/16 09/17/16 09/17/16 05:16 05:30 05:46 Temperature Pulse Rate 71 76 69 Pulse Rate [ Anterior Bilateral Throughout] Respiratory 24 22 24 Rate Respiratory Rate [Anterior Bilateral Throughout] Blood Pressure 128/41 128/41 128/41 O2 Sat by Pulse 100 99 89 Oximetry 09/17/16 09/17/16 09/17/16 06:00 06:16 06:30 Temperature Pulse Rate 74 58 L 70 Pulse Rate [ Anterior Bilateral Throughout] Respiratory 23 22 22 Rate Respiratory Rate [Anterior Bilateral Throughout] Blood Pressure 155/85 155/85 155/85 O2 Sat by Pulse 88 92 100 Oximetry 09/17/16 09/17/16 09/17/16 06:37 06:46 07:00 Temperature Pulse Rate 48 L 70 63 Pulse Rate [ Anterior Bilateral Throughout] Respiratory 22 22 21 Rate Respiratory Rate [Anterior Bilateral Throughout] Blood Pressure 155/85 155/85 146/95 O2 Sat by Pulse 100 96 93 Oximetry 09/17/16 09/17/16 09/17/16 07:16 07:30 07:46 Temperature Pulse Rate 68 81 80 Pulse Rate [ Anterior Bilateral Throughout] Respiratory 21 22 21 Rate Respiratory Rate [Anterior Bilateral Throughout] Blood Pressure 146/95 146/95 146/95 O2 Sat by Pulse 93 94 93 Oximetry 09/17/16 09/17/16 09/17/16 08:00 08:16 08:30 Temperature 99 F Pulse Rate 64 68 69 Pulse Rate [ Anterior Bilateral Throughout] Respiratory 24 20 23 Rate Respiratory Rate [Anterior Bilateral Throughout] Blood Pressure 146/43 146/43 146/43 O2 Sat by Pulse 92 88 88 Oximetry 09/17/16 09/17/16 09/17/16 08:40 08:46 08:57 Temperature Pulse Rate 76 Pulse Rate [ 69 22 L Anterior Bilateral Throughout] Respiratory 24 Rate Respiratory 22 Rate [Anterior Bilateral Throughout] Blood Pressure 146/43 O2 Sat by Pulse 100 Oximetry 09/17/16 09/17/16 09/17/16 09:00 09:15 09:31 Temperature Pulse Rate 64 61 77 Pulse Rate [ Anterior Bilateral Throughout] Respiratory 23 21 20 Rate Respiratory Rate [Anterior Bilateral Throughout] Blood Pressure 146/43 137/107 O2 Sat by Pulse 100 98 100 Oximetry 09/17/16 09/17/16 09/17/16 09:45 10:00 10:01 Temperature Pulse Rate 87 64 83 Pulse Rate [ Anterior Bilateral Throughout] Respiratory 23 19 Rate Respiratory Rate [Anterior Bilateral Throughout] Blood Pressure 137/107 137/107 O2 Sat by Pulse 100 100 Oximetry 09/17/16 09/17/16 09/17/16 10:15 10:31 10:45 Temperature Pulse Rate 68 94 H 82 Pulse Rate [ Anterior Bilateral Throughout] Respiratory 21 22 22 Rate Respiratory Rate [Anterior Bilateral Throughout] Blood Pressure 137/107 137/107 137/107 O2 Sat by Pulse 99 99 98 Oximetry 09/17/16 09/17/16 09/17/16 11:01 11:15 11:31 Temperature Pulse Rate 57 L 76 77 Pulse Rate [ Anterior Bilateral Throughout] Respiratory 21 22 22 Rate Respiratory Rate [Anterior Bilateral Throughout] Blood Pressure 108/60 108/60 108/60 O2 Sat by Pulse 100 100 Oximetry 09/17/16 11:45 Temperature Pulse Rate 83 Pulse Rate [ Anterior Bilateral Throughout] Respiratory 22 Rate Respiratory Rate [Anterior Bilateral Throughout] Blood Pressure 108/60 O2 Sat by Pulse 100 Oximetry Constitutional: no acute distress, other (encephalopathic) Eyes: non-icteric ENT: oropharynx moist Neck: supple, no lymphadenopathy Effort: mildly labored Ascultation: Bilateral: diminished breath sounds (bases), rales Cardiovascular: regular rate and rhythm Gastrointestinal: hypoactive bowel sounds, soft, non-tender, non-distended Integumentary: normal Extremities: no cyanosis, pulses normal, no ischemia or petechiae, edema (1++) Neurologic: unable to assess, other (lethargic) Psychiatric: other (sedated) CBC and BMP: 09/17/16 05:00 09/18/16 06:30 ABG, PT/INR, D-dimer: ABG POC ABG pH 7.454 (7.35-7.45) H 09/09/16 12:33 POC ABG pCO2 38.4 (35-45) 09/09/16 12:33 POC ABG pO2 75 (80-105) L 09/09/16 12:33 POC ABG HCO3 27.0 09/09/16 12:33 POC ABG Total CO2 28 09/09/16 12:33 POC ABG O2 Sat 96 09/09/16 12:33 PT/INR, D-dimer PT 13.8 Sec. (12.2-14.9) 09/10/16 05:10 INR 1.07 (0.87-1.13) 09/10/16 05:10 Abnormal lab findings: Abnormal Labs 08/29/16 08/30/16 08/30/16 21:59 00:16 05:39 WBC RBC Hgb Hct MCH MCHC RDW Plt Count Seg Neutrophils % Seg Neuts % (Manual) Nucleated RBC % Seg Neutrophils # Seg Neutrophils # Man PT INR POC ABG pH POC ABG pCO2 POC ABG pO2 Sodium Potassium Chloride Carbon Dioxide BUN Creatinine Glucose POC Glucose 106 H 128 H Lactic Acid Calcium Total Bilirubin AST ALT Alkaline Phosphatase Ammonia Troponin T C-Reactive Protein Total Protein Albumin Prealbumin 0.120 L TSH Crossmatch 08/30/16 08/30/16 08/30/16 10:30 10:30 11:12 WBC 11.1 H RBC 3.16 L Hgb 8.7 L Hct 29.9 L MCH MCHC 29 L RDW 25.0 H Plt Count Seg Neutrophils % 78.6 H Seg Neuts % (Manual) Nucleated RBC % Seg Neutrophils # 8.7 H Seg Neutrophils # Man PT INR POC ABG pH POC ABG pCO2 POC ABG pO2 Sodium 135 L Potassium Chloride Carbon Dioxide 20 L BUN Creatinine 1.5 H Glucose 148 H POC Glucose 142 H Lactic Acid Calcium 7.2 L Total Bilirubin 1.30 H AST 143 H ALT Alkaline Phosphatase 392 H Ammonia Troponin T C-Reactive Protein Total Protein 6.1 L Albumin 1.2 L Prealbumin TSH Crossmatch 08/30/16 08/30/16 08/30/16 17:41 18:03 18:18 WBC RBC Hgb Hct MCH MCHC RDW Plt Count Seg Neutrophils % Seg Neuts % (Manual) Nucleated RBC % Seg Neutrophils # Seg Neutrophils # Man PT INR POC ABG pH 7.316 L POC ABG pCO2 POC ABG pO2 44 L 59 L Sodium Potassium Chloride Carbon Dioxide BUN Creatinine Glucose POC Glucose 150 H Lactic Acid Calcium Total Bilirubin AST ALT Alkaline Phosphatase Ammonia Troponin T C-Reactive Protein Total Protein Albumin Prealbumin TSH Crossmatch 08/30/16 08/30/16 08/31/16 22:20 22:20 00:11 WBC RBC Hgb Hct MCH MCHC RDW Plt Count Seg Neutrophils % Seg Neuts % (Manual) Nucleated RBC % Seg Neutrophils # Seg Neutrophils # Man PT INR POC ABG pH POC ABG pCO2 POC ABG pO2 Sodium Potassium Chloride Carbon Dioxide BUN Creatinine Glucose POC Glucose 133 H Lactic Acid 2.30 H* Calcium Total Bilirubin AST ALT Alkaline Phosphatase Ammonia Troponin T C-Reactive Protein 10.20 H Total Protein Albumin Prealbumin TSH Crossmatch 08/31/16 08/31/16 08/31/16 04:20 04:20 04:20 WBC 18.3 H RBC 3.19 L Hgb 8.8 L Hct 30.0 L MCH 27 L MCHC 29 L RDW 23.9 H Plt Count Seg Neutrophils % Seg Neuts % (Manual) Nucleated RBC % Seg Neutrophils # Seg Neutrophils # Man PT 16.8 H INR 1.37 H POC ABG pH POC ABG pCO2 POC ABG pO2 Sodium 136 L Potassium Chloride Carbon Dioxide 19 L BUN Creatinine 1.5 H Glucose 125 H POC Glucose Lactic Acid Calcium 7.0 L Total Bilirubin 1.50 H AST 131 H ALT Alkaline Phosphatase 431 H Ammonia Troponin T C-Reactive Protein Total Protein 6.2 L Albumin 1.2 L Prealbumin TSH Crossmatch 08/31/16 08/31/16 08/31/16 04:20 05:22 05:24 WBC RBC Hgb Hct MCH MCHC RDW Plt Count Seg Neutrophils % Seg Neuts % (Manual) Nucleated RBC % Seg Neutrophils # Seg Neutrophils # Man PT INR POC ABG pH POC ABG pCO2 POC ABG pO2 142 H Sodium Potassium Chloride Carbon Dioxide BUN Creatinine Glucose POC Glucose 123 H Lactic Acid Calcium Total Bilirubin AST ALT Alkaline Phosphatase Ammonia 70.0 H Troponin T C-Reactive Protein Total Protein Albumin Prealbumin TSH Crossmatch 08/31/16 08/31/16 08/31/16 12:10 15:45 17:38 WBC RBC Hgb Hct MCH MCHC RDW Plt Count Seg Neutrophils % Seg Neuts % (Manual) Nucleated RBC % Seg Neutrophils # Seg Neutrophils # Man PT INR POC ABG pH POC ABG pCO2 POC ABG pO2 Sodium 136 L Potassium Chloride Carbon Dioxide 21 L BUN Creatinine 1.5 H Glucose 160 H POC Glucose 147 H 151 H Lactic Acid Calcium 6.9 L Total Bilirubin AST ALT Alkaline Phosphatase Ammonia Troponin T 0.109 H* D C-Reactive Protein Total Protein Albumin Prealbumin TSH Crossmatch 09/01/16 09/01/16 09/01/16 00:09 04:00 04:00 WBC 14.8 H RBC 2.89 L Hgb 7.8 L Hct 27.2 L MCH 27 L MCHC 29 L RDW 24.4 H Plt Count Seg Neutrophils % Seg Neuts % (Manual) Nucleated RBC % Seg Neutrophils # Seg Neutrophils # Man PT 18.2 H INR 1.51 H POC ABG pH POC ABG pCO2 POC ABG pO2 Sodium Potassium Chloride Carbon Dioxide BUN Creatinine Glucose POC Glucose 192 H Lactic Acid Calcium Total Bilirubin AST ALT Alkaline Phosphatase Ammonia Troponin T C-Reactive Protein Total Protein Albumin Prealbumin TSH Crossmatch 09/01/16 09/01/16 09/01/16 04:00 05:28 11:28 WBC RBC Hgb Hct MCH MCHC RDW Plt Count Seg Neutrophils % Seg Neuts % (Manual) Nucleated RBC % Seg Neutrophils # Seg Neutrophils # Man PT INR POC ABG pH POC ABG pCO2 POC ABG pO2 Sodium Potassium Chloride Carbon Dioxide 20 L BUN Creatinine 1.6 H Glucose 183 H POC Glucose 189 H 207 H Lactic Acid Calcium 6.9 L Total Bilirubin 1.30 H AST 138 H ALT Alkaline Phosphatase 520 H Ammonia Troponin T C-Reactive Protein Total Protein 6.1 L Albumin 1.2 L Prealbumin TSH Crossmatch 09/01/16 09/01/16 09/02/16 16:56 23:49 05:00 WBC RBC Hgb Hct MCH MCHC RDW Plt Count Seg Neutrophils % Seg Neuts % (Manual) Nucleated RBC % Seg Neutrophils # Seg Neutrophils # Man PT 18.0 H INR 1.49 H POC ABG pH POC ABG pCO2 POC ABG pO2 Sodium Potassium Chloride Carbon Dioxide BUN Creatinine Glucose POC Glucose 250 H 307 H Lactic Acid Calcium Total Bilirubin AST ALT Alkaline Phosphatase Ammonia Troponin T C-Reactive Protein Total Protein Albumin Prealbumin TSH Crossmatch 09/02/16 09/02/16 09/02/16 05:00 05:00 05:45 WBC 12.3 H RBC 2.57 L Hgb 7.1 L Hct 23.4 L MCH MCHC RDW 23.9 H Plt Count Seg Neutrophils % Seg Neuts % (Manual) 72.0 H Nucleated RBC % 25.0 H Seg Neutrophils # Seg Neutrophils # Man 8.9 H PT INR POC ABG pH POC ABG pCO2 POC ABG pO2 Sodium Potassium Chloride Carbon Dioxide BUN Creatinine 1.4 H Glucose 299 H POC Glucose 327 H Lactic Acid Calcium 7.0 L Total Bilirubin AST ALT Alkaline Phosphatase Ammonia Troponin T C-Reactive Protein Total Protein Albumin Prealbumin TSH Crossmatch 09/02/16 09/02/16 09/02/16 12:22 17:22 23:24 WBC RBC Hgb Hct MCH MCHC RDW Plt Count Seg Neutrophils % Seg Neuts % (Manual) Nucleated RBC % Seg Neutrophils # Seg Neutrophils # Cristian PT INR POC ABG pH POC ABG pCO2 POC ABG pO2 Sodium Potassium Chloride Carbon Dioxide BUN Creatinine Glucose POC Glucose 310 H 358 H 286 H Lactic Acid Calcium Total Bilirubin AST ALT Alkaline Phosphatase Ammonia Troponin T C-Reactive Protein Total Protein Albumin Prealbumin TSH Crossmatch 09/03/16 09/03/16 09/03/16 04:10 04:10 04:10 WBC 11.8 H RBC 2.29 L Hgb 6.1 L Hct 21.0 L MCH 27 L MCHC 29 L RDW 24.1 H Plt Count Seg Neutrophils % Seg Neuts % (Manual) Nucleated RBC % Seg Neutrophils # Seg Neutrophils # Man PT 17.6 H INR 1.45 H POC ABG pH POC ABG pCO2 POC ABG pO2 Sodium Potassium Chloride Carbon Dioxide BUN Creatinine 1.4 H Glucose 301 H POC Glucose Lactic Acid Calcium 7.0 L Total Bilirubin AST ALT Alkaline Phosphatase Ammonia Troponin T C-Reactive Protein Total Protein Albumin Prealbumin TSH Crossmatch 05/09/03/16 09/03/16 05:59 11:36 17:42 WBC RBC Hgb Hct MCH MCHC RDW Plt Count Seg Neutrophils % Seg Neuts % (Manual) Nucleated RBC % Seg Neutrophils # Seg Neutrophils # Man PT INR POC ABG pH POC ABG pCO2 POC ABG pO2 Sodium Potassium Chloride Carbon Dioxide BUN Creatinine Glucose POC Glucose 351 H 285 H 259 H Lactic Acid Calcium Total Bilirubin AST ALT Alkaline Phosphatase Ammonia Troponin T C-Reactive Protein Total Protein Albumin Prealbumin TSH Crossmatch 09/03/16 09/04/16 09/04/16 23:00 04:27 05:36 WBC RBC Hgb Hct MCH MCHC RDW Plt Count Seg Neutrophils % Seg Neuts % (Manual) Nucleated RBC % Seg Neutrophils # Seg Neutrophils # Man PT INR POC ABG pH 7.544 H POC ABG pCO2 30.8 L POC ABG pO2 78 L Sodium Potassium Chloride Carbon Dioxide BUN Creatinine Glucose POC Glucose 192 H 228 H Lactic Acid Calcium Total Bilirubin AST ALT Alkaline Phosphatase Ammonia Troponin T C-Reactive Protein Total Protein Albumin Prealbumin TSH Crossmatch 09/04/16 09/04/16 09/04/16 06:37 06:37 06:39 WBC 21.0 H RBC 2.22 L Hgb 6.0 L Hct 20.1 L MCH 27 L MCHC RDW 24.3 H Plt Count Seg Neutrophils % Seg Neuts % (Manual) Nucleated RBC % Seg Neutrophils # Seg Neutrophils # Man PT 16.8 H INR 1.37 H POC ABG pH POC ABG pCO2 POC ABG pO2 Sodium Potassium Chloride Carbon Dioxide BUN Creatinine 1.4 H Glucose 201 H POC Glucose Lactic Acid Calcium 7.1 L Total Bilirubin AST ALT Alkaline Phosphatase Ammonia Troponin T C-Reactive Protein Total Protein Albumin Prealbumin TSH Crossmatch 09/04/16 09/04/16 09/04/16 12:14 15:47 17:41 WBC RBC Hgb Hct MCH MCHC RDW Plt Count Seg Neutrophils % Seg Neuts % (Manual) Nucleated RBC % Seg Neutrophils # Seg Neutrophils # Man PT INR POC ABG pH POC ABG pCO2 POC ABG pO2 Sodium Potassium Chloride Carbon Dioxide BUN Creatinine Glucose POC Glucose 176 H 218 H Lactic Acid Calcium Total Bilirubin AST ALT Alkaline Phosphatase Ammonia Troponin T C-Reactive Protein Total Protein Albumin Prealbumin TSH Crossmatch See Detail 09/04/16 09/04/16 09/05/16 21:59 23:48 04:30 WBC RBC Hgb Hct MCH MCHC RDW Plt Count Seg Neutrophils % Seg Neuts % (Manual) Nucleated RBC % Seg Neutrophils # Seg Neutrophils # Cristian PT 17.2 H INR 1.41 H POC ABG pH POC ABG pCO2 POC ABG pO2 Sodium Potassium Chloride Carbon Dioxide BUN Creatinine Glucose POC Glucose 170 H 121 H Lactic Acid Calcium Total Bilirubin AST ALT Alkaline Phosphatase Ammonia Troponin T C-Reactive Protein Total Protein Albumin Prealbumin TSH Crossmatch 09/05/16 09/05/16 09/05/16 04:30 04:30 05:09 WBC 31.9 H RBC 3.11 L Hgb 8.5 L Hct 28.3 L D MCH 27 L MCHC RDW 21.0 H Plt Count Seg Neutrophils % Seg Neuts % (Manual) Nucleated RBC % Seg Neutrophils # Seg Neutrophils # Cristian PT INR POC ABG pH 7.226 L POC ABG pCO2 61.6 H POC ABG pO2 68 L Sodium 134 L Potassium 5.5 H Chloride 96.6 L Carbon Dioxide BUN 23 H Creatinine 1.6 H Glucose 116 H POC Glucose Lactic Acid Calcium 7.1 L Total Bilirubin AST ALT Alkaline Phosphatase Ammonia Troponin T C-Reactive Protein Total Protein Albumin Prealbumin TSH Crossmatch 09/05/16 09/05/16 09/05/16 05:33 12:08 17:32 WBC RBC Hgb Hct MCH MCHC RDW Plt Count Seg Neutrophils % Seg Neuts % (Manual) Nucleated RBC % Seg Neutrophils # Seg Neutrophils # Cristian PT INR POC ABG pH POC ABG pCO2 POC ABG pO2 Sodium Potassium Chloride Carbon Dioxide BUN Creatinine Glucose POC Glucose 114 H 147 H 174 H Lactic Acid Calcium Total Bilirubin AST ALT Alkaline Phosphatase Ammonia Troponin T C-Reactive Protein Total Protein Albumin Prealbumin TSH Crossmatch 09/06/16 09/06/16 09/06/16 03:30 03:30 03:30 WBC 25.4 H RBC 2.57 L Hgb 7.2 L Hct 22.8 L MCH MCHC RDW 20.9 H Plt Count 138 L Seg Neutrophils % Seg Neuts % (Manual) Nucleated RBC % Seg Neutrophils # Seg Neutrophils # Man PT 16.4 H INR 1.33 H POC ABG pH POC ABG pCO2 POC ABG pO2 Sodium Potassium Chloride Carbon Dioxide BUN 36 H Creatinine 1.9 H Glucose POC Glucose Lactic Acid Calcium 7.2 L Total Bilirubin AST ALT Alkaline Phosphatase Ammonia Troponin T C-Reactive Protein Total Protein Albumin Prealbumin TSH Crossmatch 09/06/16 09/06/16 09/06/16 11:07 12:03 14:44 WBC RBC Hgb Hct MCH MCHC RDW Plt Count Seg Neutrophils % Seg Neuts % (Manual) Nucleated RBC % Seg Neutrophils # Seg Neutrophils # Man PT INR POC ABG pH POC ABG pCO2 POC ABG pO2 Sodium Potassium Chloride Carbon Dioxide BUN Creatinine Glucose POC Glucose 61 L 55 L Lactic Acid Calcium Total Bilirubin AST ALT Alkaline Phosphatase Ammonia Troponin T 0.080 H C-Reactive Protein Total Protein Albumin Prealbumin TSH Crossmatch 09/06/16 09/06/16 09/07/16 21:05 23:53 03:36 WBC RBC Hgb Hct MCH MCHC RDW Plt Count Seg Neutrophils % Seg Neuts % (Manual) Nucleated RBC % Seg Neutrophils # Seg Neutrophils # Man PT INR POC ABG pH POC ABG pCO2 POC ABG pO2 Sodium Potassium Chloride Carbon Dioxide BUN Creatinine Glucose POC Glucose 140 H 178 H 243 H Lactic Acid Calcium Total Bilirubin AST ALT Alkaline Phosphatase Ammonia Troponin T C-Reactive Protein Total Protein Albumin Prealbumin TSH Crossmatch 09/07/16 09/07/16 09/07/16 03:42 03:42 05:04 WBC 17.3 H RBC 2.69 L Hgb 7.6 L Hct 23.8 L MCH MCHC RDW 20.5 H Plt Count 137 L Seg Neutrophils % Seg Neuts % (Manual) Nucleated RBC % Seg Neutrophils # Seg Neutrophils # Man PT INR POC ABG pH POC ABG pCO2 POC ABG pO2 Sodium Potassium 3.3 L Chloride Carbon Dioxide BUN 38 H Creatinine 1.6 H Glucose 201 H POC Glucose 241 H Lactic Acid Calcium 7.4 L Total Bilirubin AST ALT Alkaline Phosphatase Ammonia Troponin T C-Reactive Protein Total Protein Albumin Prealbumin TSH Crossmatch 09/07/16 09/07/16 09/07/16 11:46 17:41 23:18 WBC RBC Hgb Hct MCH MCHC RDW Plt Count Seg Neutrophils % Seg Neuts % (Manual) Nucleated RBC % Seg Neutrophils # Seg Neutrophils # Man PT INR POC ABG pH POC ABG pCO2 POC ABG pO2 Sodium Potassium Chloride Carbon Dioxide BUN Creatinine Glucose POC Glucose 313 H 227 H 116 H Lactic Acid Calcium Total Bilirubin AST ALT Alkaline Phosphatase Ammonia Troponin T C-Reactive Protein Total Protein Albumin Prealbumin TSH Crossmatch 0509/08/16 09/08/16 04:00 04:00 05:15 WBC 18.4 H RBC 2.43 L Hgb 6.9 L Hct 21.5 L MCH MCHC RDW 20.5 H Plt Count 119 L Seg Neutrophils % Seg Neuts % (Manual) Nucleated RBC % Seg Neutrophils # Seg Neutrophils # Man PT INR POC ABG pH 7.458 H POC ABG pCO2 POC ABG pO2 177 H Sodium Potassium 3.5 L Chloride Carbon Dioxide BUN 37 H Creatinine 1.3 H Glucose POC Glucose Lactic Acid Calcium 7.1 L Total Bilirubin AST ALT Alkaline Phosphatase Ammonia Troponin T C-Reactive Protein Total Protein Albumin Prealbumin TSH Crossmatch 09/08/16 09/08/16 09/08/16 11:00 15:58 23:16 WBC RBC Hgb Hct MCH MCHC RDW Plt Count Seg Neutrophils % Seg Neuts % (Manual) Nucleated RBC % Seg Neutrophils # Seg Neutrophils # Man PT INR POC ABG pH POC ABG pCO2 POC ABG pO2 113 H Sodium Potassium Chloride Carbon Dioxide BUN Creatinine Glucose POC Glucose 40 L Lactic Acid Calcium Total Bilirubin AST ALT Alkaline Phosphatase Ammonia Troponin T C-Reactive Protein Total Protein Albumin Prealbumin TSH Crossmatch See Detail 09/09/16 09/09/16 09/09/16 05:02 12:33 18:10 WBC RBC Hgb Hct MCH MCHC RDW Plt Count Seg Neutrophils % Seg Neuts % (Manual) Nucleated RBC % Seg Neutrophils # Seg Neutrophils # Man PT INR POC ABG pH 7.454 H POC ABG pCO2 POC ABG pO2 75 L Sodium Potassium Chloride Carbon Dioxide BUN Creatinine Glucose POC Glucose 59 L Lactic Acid Calcium Total Bilirubin AST ALT Alkaline Phosphatase Ammonia Troponin T C-Reactive Protein Total Protein Albumin Prealbumin TSH 5.220 H Crossmatch 09/09/16 09/09/16 09/09/16 18:10 18:10 18:42 WBC 17.0 H RBC 2.90 L Hgb 8.5 L Hct 26.1 L MCH MCHC RDW 17.9 H Plt Count 126 L Seg Neutrophils % Seg Neuts % (Manual) Nucleated RBC % Seg Neutrophils # Seg Neutrophils # Man PT INR POC ABG pH POC ABG pCO2 POC ABG pO2 Sodium Potassium Chloride Carbon Dioxide BUN 36 H Creatinine Glucose 133 H POC Glucose 148 H Lactic Acid Calcium 6.9 L Total Bilirubin AST 253 H ALT 184 H Alkaline Phosphatase 729 H Ammonia Troponin T C-Reactive Protein Total Protein 5.1 L Albumin 1.7 L Prealbumin TSH Crossmatch 09/09/16 09/10/16 09/10/16 23:22 05:10 11:43 WBC RBC Hgb Hct MCH MCHC RDW Plt Count Seg Neutrophils % Seg Neuts % (Manual) Nucleated RBC % Seg Neutrophils # Seg Neutrophils # Man PT INR POC ABG pH POC ABG pCO2 POC ABG pO2 Sodium Potassium Chloride Carbon Dioxide BUN 35 H Creatinine Glucose 240 H POC Glucose 170 H 268 H Lactic Acid Calcium 6.8 L Total Bilirubin AST 226 H ALT 171 H Alkaline Phosphatase 710 H Ammonia Troponin T C-Reactive Protein Total Protein 5.2 L Albumin 1.7 L Prealbumin TSH Crossmatch 09/10/16 09/11/16 09/11/16 17:51 01:07 05:00 WBC RBC Hgb Hct MCH MCHC RDW Plt Count Seg Neutrophils % Seg Neuts % (Manual) Nucleated RBC % Seg Neutrophils # Seg Neutrophils # Man PT INR POC ABG pH POC ABG pCO2 POC ABG pO2 Sodium Potassium 2.9 L* Chloride Carbon Dioxide BUN 35 H Creatinine Glucose 274 H POC Glucose 334 H 223 H Lactic Acid Calcium 6.9 L Total Bilirubin AST 167 H ALT 145 H Alkaline Phosphatase 631 H Ammonia Troponin T C-Reactive Protein Total Protein 5.1 L Albumin 1.6 L Prealbumin TSH Crossmatch 09/11/16 09/11/16 09/11/16 05:01 12:16 17:12 WBC RBC Hgb Hct MCH MCHC RDW Plt Count Seg Neutrophils % Seg Neuts % (Manual) Nucleated RBC % Seg Neutrophils # Seg Neutrophils # Man PT INR POC ABG pH POC ABG pCO2 POC ABG pO2 Sodium Potassium Chloride Carbon Dioxide BUN Creatinine Glucose POC Glucose 305 H 219 H 171 H Lactic Acid Calcium Total Bilirubin AST ALT Alkaline Phosphatase Ammonia Troponin T C-Reactive Protein Total Protein Albumin Prealbumin TSH Crossmatch 09/11/16 09/12/16 09/12/16 23:35 03:33 05:00 WBC 12.9 H RBC 2.81 L Hgb 8.2 L Hct 25.4 L MCH MCHC RDW 17.9 H Plt Count Seg Neutrophils % Seg Neuts % (Manual) Nucleated RBC % Seg Neutrophils # Seg Neutrophils # Man PT INR POC ABG pH POC ABG pCO2 POC ABG pO2 Sodium Potassium Chloride Carbon Dioxide BUN Creatinine Glucose POC Glucose 216 H 183 H Lactic Acid Calcium Total Bilirubin AST ALT Alkaline Phosphatase Ammonia Troponin T C-Reactive Protein Total Protein Albumin Prealbumin TSH Crossmatch 09/12/16 09/12/16 09/12/16 05:00 15:15 18:30 WBC RBC Hgb Hct MCH MCHC RDW Plt Count Seg Neutrophils % Seg Neuts % (Manual) Nucleated RBC % Seg Neutrophils # Seg Neutrophils # Man PT INR POC ABG pH POC ABG pCO2 POC ABG pO2 Sodium Potassium 3.0 L 3.4 L Chloride Carbon Dioxide BUN 33 H Creatinine 0.5 L Glucose POC Glucose 215 H Lactic Acid Calcium 7.0 L Total Bilirubin AST ALT Alkaline Phosphatase Ammonia Troponin T C-Reactive Protein Total Protein Albumin Prealbumin TSH Crossmatch 09/12/16 09/13/16 09/13/16 23:17 05:50 05:50 WBC RBC 2.93 L Hgb 8.8 L Hct 26.7 L MCH MCHC RDW 18.0 H Plt Count Seg Neutrophils % Seg Neuts % (Manual) Nucleated RBC % Seg Neutrophils # Seg Neutrophils # Man PT INR POC ABG pH POC ABG pCO2 POC ABG pO2 Sodium Potassium 2.6 L* D Chloride Carbon Dioxide BUN 29 H Creatinine 0.5 L Glucose 106 H POC Glucose 155 H Lactic Acid Calcium 7.3 L Total Bilirubin AST ALT Alkaline Phosphatase Ammonia Troponin T C-Reactive Protein Total Protein Albumin Prealbumin TSH Crossmatch 09/13/16 09/13/16 09/13/16 05:53 11:43 15:07 WBC RBC Hgb Hct MCH MCHC RDW Plt Count Seg Neutrophils % Seg Neuts % (Manual) Nucleated RBC % Seg Neutrophils # Seg Neutrophils # Man PT INR POC ABG pH POC ABG pCO2 POC ABG pO2 Sodium Potassium 2.8 L* Chloride Carbon Dioxide BUN Creatinine Glucose POC Glucose 119 H 129 H Lactic Acid Calcium Total Bilirubin AST ALT Alkaline Phosphatase Ammonia Troponin T C-Reactive Protein Total Protein Albumin Prealbumin TSH Crossmatch 09/13/16 09/13/16 09/14/16 17:39 23:30 05:34 WBC RBC Hgb Hct MCH MCHC RDW Plt Count Seg Neutrophils % Seg Neuts % (Manual) Nucleated RBC % Seg Neutrophils # Seg Neutrophils # Man PT INR POC ABG pH POC ABG pCO2 POC ABG pO2 Sodium Potassium Chloride Carbon Dioxide BUN Creatinine Glucose POC Glucose 144 H 196 H 175 H Lactic Acid Calcium Total Bilirubin AST ALT Alkaline Phosphatase Ammonia Troponin T C-Reactive Protein Total Protein Albumin Prealbumin TSH Crossmatch 09/14/16 09/14/16 09/14/16 06:24 06:24 12:41 WBC RBC 2.82 L Hgb 8.4 L Hct 25.7 L MCH MCHC RDW 18.0 H Plt Count Seg Neutrophils % Seg Neuts % (Manual) Nucleated RBC % Seg Neutrophils # Seg Neutrophils # Man PT INR POC ABG pH POC ABG pCO2 POC ABG pO2 Sodium Potassium 2.9 L* Chloride 107.3 H Carbon Dioxide BUN 26 H Creatinine 0.4 L Glucose 169 H POC Glucose 184 H Lactic Acid Calcium 7.5 L Total Bilirubin AST ALT Alkaline Phosphatase Ammonia Troponin T C-Reactive Protein Total Protein Albumin Prealbumin TSH Crossmatch 09/14/16 09/14/16 09/14/16 14:50 17:57 23:34 WBC RBC Hgb Hct MCH MCHC RDW Plt Count Seg Neutrophils % Seg Neuts % (Manual) Nucleated RBC % Seg Neutrophils # Seg Neutrophils # Man PT INR POC ABG pH POC ABG pCO2 POC ABG pO2 Sodium Potassium 3.3 L Chloride Carbon Dioxide BUN Creatinine Glucose POC Glucose 191 H 178 H Lactic Acid Calcium Total Bilirubin AST ALT Alkaline Phosphatase Ammonia Troponin T C-Reactive Protein Total Protein Albumin Prealbumin TSH Crossmatch 09/15/16 09/15/16 09/15/16 05:02 07:57 07:57 WBC RBC 3.04 L Hgb 9.2 L Hct 28.2 L MCH MCHC RDW 18.8 H Plt Count Seg Neutrophils % Seg Neuts % (Manual) Nucleated RBC % Seg Neutrophils # Seg Neutrophils # Man PT INR POC ABG pH POC ABG pCO2 POC ABG pO2 Sodium Potassium Chloride 107.2 H Carbon Dioxide BUN 26 H Creatinine 0.4 L Glucose 160 H POC Glucose 192 H Lactic Acid Calcium 7.7 L Total Bilirubin AST ALT Alkaline Phosphatase Ammonia Troponin T C-Reactive Protein Total Protein Albumin Prealbumin TSH Crossmatch 09/15/16 09/15/16 09/15/16 11:23 17:51 23:45 WBC RBC Hgb Hct MCH MCHC RDW Plt Count Seg Neutrophils % Seg Neuts % (Manual) Nucleated RBC % Seg Neutrophils # Seg Neutrophils # Man PT INR POC ABG pH POC ABG pCO2 POC ABG pO2 Sodium Potassium Chloride Carbon Dioxide BUN Creatinine Glucose POC Glucose 232 H 240 H 251 H Lactic Acid Calcium Total Bilirubin AST ALT Alkaline Phosphatase Ammonia Troponin T C-Reactive Protein Total Protein Albumin Prealbumin TSH Crossmatch 09/16/16 09/16/16 09/16/16 04:55 04:55 05:38 WBC RBC 2.84 L Hgb 8.6 L Hct 26.2 L MCH MCHC RDW 18.8 H Plt Count Seg Neutrophils % Seg Neuts % (Manual) Nucleated RBC % Seg Neutrophils # Seg Neutrophils # Man PT INR POC ABG pH POC ABG pCO2 POC ABG pO2 Sodium Potassium 3.1 L Chloride 107.6 H Carbon Dioxide BUN 25 H Creatinine 0.3 L Glucose 134 H POC Glucose 157 H Lactic Acid Calcium 7.6 L Total Bilirubin AST ALT Alkaline Phosphatase Ammonia Troponin T C-Reactive Protein Total Protein Albumin Prealbumin TSH Crossmatch 09/16/16 09/16/16 09/16/16 11:53 17:56 23:54 WBC RBC Hgb Hct MCH MCHC RDW Plt Count Seg Neutrophils % Seg Neuts % (Manual) Nucleated RBC % Seg Neutrophils # Seg Neutrophils # Man PT INR POC ABG pH POC ABG pCO2 POC ABG pO2 Sodium Potassium Chloride Carbon Dioxide BUN Creatinine Glucose POC Glucose 137 H 138 H 179 H Lactic Acid Calcium Total Bilirubin AST ALT Alkaline Phosphatase Ammonia Troponin T C-Reactive Protein Total Protein Albumin Prealbumin TSH Crossmatch 09/17/16 09/17/16 09/17/16 05:00 05:00 05:28 WBC RBC 2.77 L Hgb 8.2 L Hct 25.9 L MCH MCHC RDW 19.1 H Plt Count Seg Neutrophils % Seg Neuts % (Manual) Nucleated RBC % Seg Neutrophils # Seg Neutrophils # Man PT INR POC ABG pH POC ABG pCO2 POC ABG pO2 Sodium Potassium 3.5 L Chloride 108.4 H Carbon Dioxide BUN 29 H Creatinine 0.3 L Glucose 117 H POC Glucose 142 H Lactic Acid Calcium 7.4 L Total Bilirubin AST ALT Alkaline Phosphatase Ammonia Troponin T C-Reactive Protein Total Protein Albumin Prealbumin TSH Crossmatch Allied health notes reviewed: RT
--- NOTE | 2016-09-17 15:38 | Progress Note ---
Assessment and Plan Assessment and plan: Patient is a 61-year-old morbid obese woman with a history of congestive heart failure, severe protein calorie malnutrition (bilateral anabaptism muscle severe wasting, hypothenar muscle wasting) with BMI of 81.6, functional quadriplegia, type 2 diabetes mellitus, hypertension, multiple skin breakdown between legs and thighs who presented to the hospital via EMS with AMS. 2D echocardiogram with ejection fraction of 50-55%. During the past admission, patient was recommended for placement but refused. On presentation to ED, patient was felt to be unable to maintain her airways and intubated the ER since 08/29/16. 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, poa: supportative care -Acute on chronic diastolic congestive heart failure: treated with diuresis -Acute on chronic respiratory failure, intubated > 96 hours -Septic shock on on IV solucorticef and midodrine -Severe anemia s/p blood transfusion: monitor cbc closely altered -Paroxysmal atrial fibrillation -Non-ST elevated [place] type 2: Conservative management -Acute on chronic kidney disease III, likely secondary to vasomotor nephropathy- POA -Transaminitis-elevated alkaline phosphatase and AST: continue to monitor -Severe protein calorie malnutrition albumin 1.2 -Morbid obesity BMI 81.6 -Mulitple PRESSURE ULCERS-POA: consulted wound care -uncontrolled dm: increased ssi -Acute anemia with drop in HCT resolved, received 5 units of PRBC transfused -Levaphed still off -Unable to get CT head due to weight issues Disposition: LTAC once accepted 09/04/16 , boyfriend, Tad agreed to blood transfusion, hgb is 6.0 will transfuse 2 units==>h/h steady, continue to monitor 09/05/16: Overnight was very eventful. New issue: Status epilepticus most likely due to anoxic brain injury, poa. She is back on 8 mcg of Levophed, which had weaned off up to the point of seizure activity Patient had status epilepticus before receiving blood transfusions. She was given multiple doses of Ativan and was still having breakthrough seizures. She was given phenobarbital and Dilantin but still having seizures. I started propofol drip which is helping. She still on IV Ativan drip also. Difficult family dynamics: Her son (she has multiple children), Srikanth and sister Leanne were at her bedside and well as her boyfriend who is not her legal , which he told me. They are upset because they didn't know patient was in the hospital. It appears the gentleman in the room is her boyfriend and not her legal He also did not notify the family the patient was here. That gentleman who is her boyfriend dropped the patient's wallet and our security called the number inside the wallet which was patient's mother's number and this is how the family found out that patient was in the hospital. I was told by RN, that patient has no , patient has 7 siblings and they are estranged from mother. No legal POA but sister Leanne is active in sister's life. Her boyfriend name is Tad Vieyra and he has consistently been at her beside, holding her hand and being supportive. 09/10/16 (resumed care): Trying to get to LTAC, still on 2 mcg of Levaphed but not sedated==>?Significant anoxic brain injury most likely poa, Ethic committee consulted because some family members want to withdraw. 09/11/16, Trach aspirated GNR, continue abx pending identification, off levaphed today. Trying to get to LTAC, they can trach her there. Only [facility] takes her insurance 09/12/16 Trach aspirate still pending, new issue of hypothermia, responded to [facility], tube feeding low rate due to high residuals, abd xray unremarkable. Potassium replaced. No restraints needs, no sedation needed, poor prognosis 09/15/16(resumed care): new issue seizure, gave 1mg iv ativan x 1. Awaiting to go to [facility] 09/16-11/26: cpm, no new seizures. History Interval history: Patient seen and examined. Follow up on respiratory failure. Patient still intubated. Overnight uneventful. Hospitalist Physical - Physical exam Narrative exam: GEN: Critically ill, morbid obese BMI 81.6, intubated HEENT: Pupils are pinpoint and reactive, ET tube in place NECK: SUPPLE, NO THYROMEGALY, NO JVD, NO LAD CVS: regular irregular NORMAL S1S2 LUNGS/CHEST: TA B, NORMAL CHEST EXPANSION B, GOOD AIR ENTRY B ABD: SOFT, NONDISTENDED GBS, NO REBOUND OR GUARDING MSK: Spontaneous movement of extremities NEURO: CN 2-12 GROSSLY INTACT, doesn't follow commands PSY: Confused - Constitutional Vitals: Temp Pulse Resp BP Pulse Ox 98.9 F 66 26 H 143/51 99 09/17/16 12:00 09/17/16 13:59 09/17/16 13:59 09/17/16 12:15 09/17/16 12:15 General appearance: Present: other (morbidly obese) Results - Labs CBC & Chem 7: 09/17/16 05:00 09/17/16 05:00 Labs: Laboratory Last Values WBC 9.2 K/mm3 (4.5-11.0) 09/17/16 05:00 RBC 2.77 M/mm3 (3.65-5.03) L 09/17/16 05:00 Hgb 8.2 gm/dl (10.1-14.3) L 09/17/16 05:00 Hct 25.9 % (30.3-42.9) L 09/17/16 05:00 MCV 94 fl (79-97) 09/17/16 05:00 MCH 30 pg (28-32) 09/17/16 05:00 MCHC 32 % (30-34) 09/17/16 05:00 RDW 19.1 % (13.2-15.2) H 09/17/16 05:00 Plt Count 209 K/mm3 (140-440) 09/17/16 05:00 Lymph % (Auto) 15.6 % (13.4-35.0) 08/30/16 10:30 Rice % (Auto) 5.1 % (0.0-7.3) 08/30/16 10:30 Eos % (Auto) 0.6 % (0.0-4.3) 08/30/16 10:30 Baso % (Auto) 0.1 % (0.0-1.8) 08/30/16 10:30 Lymph # 1.7 K/mm3 (1.2-5.4) 08/30/16 10:30 Rice # 0.6 K/mm3 (0.0-0.8) 08/30/16 10:30 Eos # 0.1 K/mm3 (0.0-0.4) 08/30/16 10:30 Baso # 0.0 K/mm3 (0.0-0.1) 08/30/16 10:30 Add Manual Diff Complete 09/02/16 05:00 Total Counted 100 09/02/16 05:00 Seg Neutrophils % 78.6 % (40.0-70.0) H 08/30/16 10:30 Seg Neuts % (Manual) 72.0 % (40.0-70.0) H 09/02/16 05:00 Band Neutrophils % 9.0 % 09/02/16 05:00 Lymphocytes % (Manual) 15.0 % (13.4-35.0) 09/02/16 05:00 Reactive Lymphs % (Man) 0 % 09/02/16 05:00 Monocytes % (Manual) 4.0 % (0.0-7.3) 09/02/16 05:00 Eosinophils % (Manual) 0 % (0.0-4.3) 09/02/16 05:00 Basophils % (Manual) 0 % (0.0-1.8) 09/02/16 05:00 Metamyelocytes % 0 % 09/02/16 05:00 Myelocytes % 0 % 09/02/16 05:00 Promyelocytes % 0 % 09/02/16 05:00 Blast Cells % 0 % 09/02/16 05:00 Nucleated RBC % 25.0 % (0.0-0.9) H 09/02/16 05:00 Seg Neutrophils # 8.7 K/mm3 (1.8-7.7) H 08/30/16 10:30 Seg Neutrophils # Man 8.9 K/mm3 (1.8-7.7) H 09/02/16 05:00 Band Neutrophils # 1.1 K/mm3 09/02/16 05:00 Lymphocytes # (Manual) 1.8 K/mm3 (1.2-5.4) 09/02/16 05:00 Abs React Lymphs (Man) 0.0 K/mm3 09/02/16 05:00 Monocytes # (Manual) 0.5 K/mm3 (0.0-0.8) 09/02/16 05:00 Eosinophils # (Manual) 0.0 K/mm3 (0.0-0.4) 09/02/16 05:00 Basophils # (Manual) 0.0 K/mm3 (0.0-0.1) 09/02/16 05:00 Metamyelocytes # 0.0 K/mm3 09/02/16 05:00 Myelocytes # 0.0 K/mm3 09/02/16 05:00 Promyelocytes # 0.0 K/mm3 09/02/16 05:00 Blast Cells # 0.0 K/mm3 09/02/16 05:00 WBC Morphology Not Reportable 09/02/16 05:00 Hypersegmented Neuts Not Reportable 09/02/16 05:00 Hyposegmented Neuts Not Reportable 09/02/16 05:00 Hypogranular Neuts Not Reportable 09/02/16 05:00 Smudge Cells Not Reportable 09/02/16 05:00 Toxic Granulation Not Reportable 09/02/16 05:00 Toxic Vacuolation Not Reportable 09/02/16 05:00 Dohle Bodies Not Reportable 09/02/16 05:00 Pelger-Huet Anomaly Not Reportable 09/02/16 05:00 Feli Rods Not Reportable 09/02/16 05:00 Platelet Estimate Consistent w auto 09/02/16 05:00 Clumped Platelets Not Reportable 09/02/16 05:00 Plt Clumps, EDTA Not Reportable 09/02/16 05:00 Large Platelets Not Reportable 09/02/16 05:00 Giant Platelets Not Reportable 09/02/16 05:00 Platelet Satelliting Not Reportable 09/02/16 05:00 Plt Morphology Comment Not Reportable 09/02/16 05:00 RBC Morphology Not Reportable 09/02/16 05:00 Dimorphic RBCs Not Reportable 09/02/16 05:00 Polychromasia Rare 09/02/16 05:00 Hypochromasia Not Reportable 09/02/16 05:00 Poikilocytosis Not Reportable 09/02/16 05:00 Anisocytosis 1+ 09/02/16 05:00 Microcytosis Not Reportable 09/02/16 05:00 Macrocytosis 1+ 09/02/16 05:00 Spherocytes Not Reportable 09/02/16 05:00 Pappenheimer Bodies Not Reportable 09/02/16 05:00 Sickle Cells Not Reportable 09/02/16 05:00 Target Cells Not Reportable 09/02/16 05:00 Tear Drop Cells Not Reportable 09/02/16 05:00 Ovalocytes Not Reportable 09/02/16 05:00 Helmet Cells Not Reportable 09/02/16 05:00 [place] Bodies Not Reportable 09/02/16 05:00 [place] Rings Not Reportable 09/02/16 05:00 Dana Cells Not Reportable 09/02/16 05:00 Bite Cells Not Reportable 09/02/16 05:00 Crenated Cell Not Reportable 09/02/16 05:00 Elliptocytes Not Reportable 09/02/16 05:00 Acanthocytes (Spur) Not Reportable 09/02/16 05:00 Rouleaux Not Reportable 09/02/16 05:00 Hemoglobin C Crystals Not Reportable 09/02/16 05:00 Schistocytes Not Reportable 09/02/16 05:00 Malaria parasites Not Reportable 09/02/16 05:00 Manny Bodies Not Reportable 09/02/16 05:00 Hem Pathologist Commnt No 09/02/16 05:00 PT 13.8 Sec. (12.2-14.9) 09/10/16 05:10 INR 1.07 (0.87-1.13) 09/10/16 05:10 APTT 29.5 Sec. (24.2-36.6) 08/29/16 17:40 POC ABG pH 7.454 (7.35-7.45) H 09/09/16 12:33 POC ABG pCO2 38.4 (35-45) 09/09/16 12:33 POC ABG pO2 75 (80-105) L 09/09/16 12:33 POC ABG HCO3 27.0 09/09/16 12:33 POC ABG Total CO2 28 09/09/16 12:33 POC ABG O2 Sat 96 09/09/16 12:33 POC ABG Base Excess 3 09/09/16 12:33 VBG pH 7.366 (7.320-7.420) 08/29/16 17:40 FiO2 30 % 09/09/16 12:33 Sodium 145 mmol/L (137-145) 09/17/16 05:00 Potassium 3.5 mmol/L (3.6-5.0) L 09/17/16 05:00 Chloride 108.4 mmol/L (98-107) H 09/17/16 05:00 Carbon Dioxide 27 mmol/L (22-30) 09/17/16 05:00 Anion Gap 13 mmol/L 09/17/16 05:00 BUN 29 mg/dL (7-17) H 09/17/16 05:00 Creatinine 0.3 mg/dL (0.7-1.2) L 09/17/16 05:00 Estimated GFR > 60 ml/min 09/17/16 05:00 BUN/Creatinine Ratio 96.66 % 09/17/16 05:00 Glucose 117 mg/dL (65-100) H 09/17/16 05:00 POC Glucose 142 (70-105) H 09/17/16 05:28 Lactic Acid 1.90 mmol/L (0.7-2.0) 09/07/16 15:00 Calcium 7.4 mg/dL (8.4-10.2) L 09/17/16 05:00 Phosphorus 3.60 mg/dL (2.5-4.5) 08/29/16 21:59 Magnesium 1.80 mg/dL (1.7-2.3) 09/13/16 05:50 Total Bilirubin 0.70 mg/dL (0.1-1.2) 09/11/16 05:00 AST 167 units/L (5-40) H 09/11/16 05:00 ALT 145 units/L (7-56) H 09/11/16 05:00 Alkaline Phosphatase 631 units/L (35-129) H 09/11/16 05:00 Ammonia 39.0 umol/L (25-60) 09/07/16 15:00 Total Creatine Kinase 36 units/L (30-135) 09/06/16 11:07 CK-MB (CK-2) < 1.0 ng/mL (0.0-4.0) 09/06/16 11:07 CK-MB (CK-2) Rel Index 2.7 (0-4) 09/06/16 11:07 Troponin T 0.080 ng/mL (0.00-0.029) H 09/06/16 11:07 C-Reactive Protein 10.20 mg/dL (0.00-1.30) H 08/30/16 22:20 NT-Pro-B Natriuret Pep 1712 pg/mL (0-900) H 08/29/16 17:40 Total Protein 5.1 g/dL (6.3-8.2) L 09/11/16 05:00 Albumin 1.6 g/dL (3.9-5) L 09/11/16 05:00 Albumin/Globulin Ratio 0.5 % 09/11/16 05:00 Prealbumin 0.120 g/L (0.200-0.400) L 08/29/16 21:59 Triglycerides 225 mg/dL (2-149) H 08/29/16 17:40 Cholesterol 130 mg/dL (50-199) 08/29/16 17:40 LDL Cholesterol Direct 82 mg/dL (50-130) 08/29/16 17:40 HDL Cholesterol 3 mg/dL (40-59) L 08/29/16 17:40 Cholesterol/HDL Ratio 43.33 % 08/29/16 17:40 TSH 5.220 mlU/mL (0.270-4.200) H 09/09/16 18:10 Urine Color Yellow (Yellow) 08/31/16 15:37 Urine Turbidity Clear (Clear) 08/31/16 15:37 Urine pH 5.0 (5.0-7.0) 08/31/16 15:37 Ur Specific [place] 1.009 (1.003-1.030) 08/31/16 15:37 Urine Protein <15 mg/dl mg/dL (Negative) 08/31/16 15:37 Urine Glucose (UA) Neg mg/dL (Negative) 08/31/16 15:37 Urine Ketones Neg mg/dL (Negative) 08/31/16 15:37 Urine Blood Sm (Negative) 08/31/16 15:37 Urine Nitrite Neg (Negative) 08/31/16 15:37 Urine Bilirubin Neg (Negative) 08/31/16 15:37 Urine Urobilinogen < 2.0 mg/dL (<2.0) 08/31/16 15:37 Ur Leukocyte Esterase Sm (Negative) 08/31/16 15:37 Urine WBC (Auto) 3.0 /HPF (0.0-6.0) 08/31/16 15:37 Urine RBC (Auto) 1.0 /HPF (0.0-6.0) 08/31/16 15:37 U Epithel Cells (Auto) < 1.0 /HPF (0-13.0) 08/31/16 15:37 Urine Bacteria (Auto) 1+ /HPF (Negative) 08/31/16 15:37 Hyaline Casts 5 /LPF 08/31/16 15:37 Urine Mucus Few /HPF 08/31/16 15:37 Blood Type O POSITIVE 09/08/16 11:00 Antibody Screen TNR 09/08/16 11:00 PATRICK Antibody Screen Negative 09/08/16 11:00 Crossmatch See Detail 09/08/16 11:00
--- NOTE | 2016-09-17 16:19 | Progress Note ---
Assessment and Plan A/P: 1) I was unable to reach a family member for consent. We will need consent before proceeding forward with the trach/PEG. Subjective Date of service: 09/17/16 Narrative: The patient remains intubated. Objective Vital Signs - 12hr 09/17/16 09/17/16 09/17/16 04:30 04:46 05:00 Temperature Pulse Rate 70 47 L 74 Pulse Rate [ Anterior Bilateral Throughout] Respiratory 23 25 H 27 H Rate Respiratory Rate [Anterior Bilateral Throughout] Blood Pressure 144/45 144/45 128/41 O2 Sat by Pulse 100 100 96 Oximetry 09/17/16 09/17/16 09/17/16 05:16 05:30 05:46 Temperature Pulse Rate 71 76 69 Pulse Rate [ Anterior Bilateral Throughout] Respiratory 24 22 24 Rate Respiratory Rate [Anterior Bilateral Throughout] Blood Pressure 128/41 128/41 128/41 O2 Sat by Pulse 100 99 89 Oximetry 09/17/16 09/17/16 09/17/16 06:00 06:16 06:30 Temperature Pulse Rate 74 58 L 70 Pulse Rate [ Anterior Bilateral Throughout] Respiratory 23 22 22 Rate Respiratory Rate [Anterior Bilateral Throughout] Blood Pressure 155/85 155/85 155/85 O2 Sat by Pulse 88 92 100 Oximetry 09/17/16 09/17/16 09/17/16 06:37 06:46 07:00 Temperature Pulse Rate 48 L 70 63 Pulse Rate [ Anterior Bilateral Throughout] Respiratory 22 22 21 Rate Respiratory Rate [Anterior Bilateral Throughout] Blood Pressure 155/85 155/85 146/95 O2 Sat by Pulse 100 96 93 Oximetry 09/17/16 09/17/16 09/17/16 07:16 07:30 07:46 Temperature Pulse Rate 68 81 80 Pulse Rate [ Anterior Bilateral Throughout] Respiratory 21 22 21 Rate Respiratory Rate [Anterior Bilateral Throughout] Blood Pressure 146/95 146/95 146/95 O2 Sat by Pulse 93 94 93 Oximetry 09/17/16 09/17/16 09/17/16 08:00 08:16 08:30 Temperature 99 F Pulse Rate 64 68 69 Pulse Rate [ Anterior Bilateral Throughout] Respiratory 24 20 23 Rate Respiratory Rate [Anterior Bilateral Throughout] Blood Pressure 146/43 146/43 146/43 O2 Sat by Pulse 92 88 88 Oximetry 09/17/16 09/17/16 09/17/16 08:40 08:46 08:57 Temperature Pulse Rate 76 Pulse Rate [ 69 92 H Anterior Bilateral Throughout] Respiratory 24 Rate Respiratory 22 20 Rate [Anterior Bilateral Throughout] Blood Pressure 146/43 O2 Sat by Pulse 100 Oximetry 09/17/16 09/17/16 09/17/16 09:00 09:15 09:31 Temperature Pulse Rate 64 61 77 Pulse Rate [ Anterior Bilateral Throughout] Respiratory 23 21 20 Rate Respiratory Rate [Anterior Bilateral Throughout] Blood Pressure 146/43 137/107 O2 Sat by Pulse 100 98 100 Oximetry 09/17/16 09/17/16 09/17/16 09:45 10:00 10:01 Temperature Pulse Rate 87 64 83 Pulse Rate [ Anterior Bilateral Throughout] Respiratory 23 19 Rate Respiratory Rate [Anterior Bilateral Throughout] Blood Pressure 137/107 137/107 O2 Sat by Pulse 100 100 Oximetry 09/17/16 09/17/16 09/17/16 10:15 10:31 10:45 Temperature Pulse Rate 68 94 H 82 Pulse Rate [ Anterior Bilateral Throughout] Respiratory 21 22 22 Rate Respiratory Rate [Anterior Bilateral Throughout] Blood Pressure 137/107 137/107 137/107 O2 Sat by Pulse 99 99 98 Oximetry 09/17/16 09/17/16 09/17/16 11:01 11:15 11:31 Temperature Pulse Rate 57 L 76 77 Pulse Rate [ Anterior Bilateral Throughout] Respiratory 21 22 22 Rate Respiratory Rate [Anterior Bilateral Throughout] Blood Pressure 108/60 108/60 108/60 O2 Sat by Pulse 100 100 Oximetry 09/17/16 09/17/16 09/17/16 11:45 12:00 12:15 Temperature 98.9 F Pulse Rate 83 117 H Pulse Rate [ Anterior Bilateral Throughout] Respiratory 22 26 H Rate Respiratory Rate [Anterior Bilateral Throughout] Blood Pressure 108/60 143/51 O2 Sat by Pulse 100 99 99 Oximetry 09/17/16 09/17/16 13:40 13:59 Temperature Pulse Rate Pulse Rate [ 98 H 66 Anterior Bilateral Throughout] Respiratory Rate Respiratory 24 26 H Rate [Anterior Bilateral Throughout] Blood Pressure O2 Sat by Pulse Oximetry - Neck no masses, trachea midline - Abdomen soft (morbidly obese) - Labs 09/17/16 05:00 09/17/16 05:00 Diabetes panel 09/17/16 Range/Units 05:00 Sodium 145 (137-145) mmol/L Potassium 3.5 L (3.6-5.0) mmol/L Chloride 108.4 H (98-107) mmol/L Carbon Dioxide 27 (22-30) mmol/L BUN 29 H (7-17) mg/dL Creatinine 0.3 L (0.7-1.2) mg/dL Glucose 117 H (65-100) mg/dL Calcium 7.4 L (8.4-10.2) mg/dL Calcium panel 09/17/16 Range/Units 05:00 Calcium 7.4 L (8.4-10.2) mg/dL Pituitary panel 09/17/16 Range/Units 05:00 Sodium 145 (137-145) mmol/L Potassium 3.5 L (3.6-5.0) mmol/L Chloride 108.4 H (98-107) mmol/L Carbon Dioxide 27 (22-30) mmol/L BUN 29 H (7-17) mg/dL Creatinine 0.3 L (0.7-1.2) mg/dL Glucose 117 H (65-100) mg/dL Calcium 7.4 L (8.4-10.2) mg/dL Adrenal panel 09/17/16 Range/Units 05:00 Sodium 145 (137-145) mmol/L Potassium 3.5 L (3.6-5.0) mmol/L Chloride 108.4 H (98-107) mmol/L Carbon Dioxide 27 (22-30) mmol/L BUN 29 H (7-17) mg/dL Creatinine 0.3 L (0.7-1.2) mg/dL Glucose 117 H (65-100) mg/dL Calcium 7.4 L (8.4-10.2) mg/dL
[2016-09-17] MEDS ORDERED: POTASSIUM CHLORIDE FEEDTUBE ONE (19:40)
[2016-09-17] MEDS: LASIX IV SCH (20:49)
[2016-09-17] MEDS: LEVEMIR SUB-Q SCH (21:19)
[2016-09-18] MEDS: NOVOLOG SUB-Q SCH ×4 (00:30→18:09)
[2016-09-18] MEDS: REGLAN IV SCH ×4 (00:31→18:10)
[2016-09-18] MEDS: LOPRESSOR PO SCH ×5 (01:11→22:43)
[2016-09-18] MEDS: DUONEB 0.5 MG-3 MG/3 ML SOLN IH SCH ×4 (02:48→20:15)
[2016-09-18] MEDS: PROAMATINE PO SCH ×3 (06:19→22:44)
[2016-09-18 07:24] LABS: Carbon Dioxide 26 mmol/L (22-30)
[2016-09-18 07:25] LABS: Anion Gap 15 mmol/L; Blood Urea Nitrogen 30 mg/dL (7-17); Calcium 7.4 mg/dL (8.4-10.2); Chloride 110.7 mmol/L (98-107); Glucose 249 mg/dL (65-100); Potassium 3.8 mmol/L (3.6-5.0); Sodium 148 mmol/L (137-145)
--- NOTE | 2016-09-18 07:32 | Progress Note ---
Assessment and Plan - Patient Problems (1) RORY (acute kidney injury) Current Visit: No Status: Acute Plan to address problem: Acute Kidney Injury is hemodynamically mediated in the setting of hypotension / shock. Renal function has improved and stable. Follow renal function. (2) Hypokalemia Current Visit: Yes Status: Acute Plan to address problem: Monitor K levels and replete as needed. Replete Mg. Hypernatremia: Increase water flushes to 250ml Q 4hrs. (3) Shock Current Visit: Yes Status: Acute Plan to address problem: S/p Levophed. (4) Respiratory failure Current Visit: Yes Status: Acute Qualifiers: Chronicity: C Respiratory failure complication: R Plan to address problem: On vent. (5) Altered mental status Current Visit: Yes Status: Acute Qualifiers: Altered mental status type: unspecified Coma depth: C Coma timing: C Qualified Code(s): R41.82 - Altered mental status, unspecified (6) Anemia Current Visit: Yes Status: Acute Qualifiers: Anemia type: unspecified type Iron deficiency anemia type: I Vitamin B12 deficiency anemia type: V Folate deficiency anemia type: F Bone marrow failure anemia type: B Hemolytic anemia type: H Other causes of anemia: O Chronic kidney disease stage: C Qualified Code(s): D64.9 - Anemia, unspecified Plan to address problem: S/p PRBC. Subjective Date of service: 09/18/16 Principal diagnosis: Acute Hypoxemic Hypercapnic Resp Failure; Severe Sepsis Interval history: Patient remain on the vent. Objective - Vital Signs Vital signs: Vital Signs - 12hr 09/17/16 09/17/16 09/17/16 20:00 20:01 20:10 Temperature 98.0 F Pulse Rate 88 22 L Pulse Rate [ Anterior Bilateral Throughout] Pulse Rate [ 88 From Monitor] Respiratory 19 19 22 Rate Respiratory Rate [Anterior Bilateral Throughout] Blood Pressure 133/58 207/184 O2 Sat by Pulse 99 99 98 Oximetry 09/17/16 09/17/16 09/17/16 20:12 20:22 21:01 Temperature Pulse Rate 84 Pulse Rate [ 89 81 Anterior Bilateral Throughout] Pulse Rate [ From Monitor] Respiratory 22 Rate Respiratory 22 22 Rate [Anterior Bilateral Throughout] Blood Pressure 119/51 O2 Sat by Pulse 100 Oximetry 09/17/16 09/17/16 09/17/16 22:01 22:32 22:34 Temperature Pulse Rate 67 72 82 Pulse Rate [ Anterior Bilateral Throughout] Pulse Rate [ From Monitor] Respiratory 21 Rate Respiratory Rate [Anterior Bilateral Throughout] Blood Pressure 116/52 116/62 O2 Sat by Pulse 100 Oximetry 09/17/16 09/17/16 09/18/16 23:01 23:10 00:00 Temperature 98.8 F Pulse Rate 104 H 97 H 90 Pulse Rate [ Anterior Bilateral Throughout] Pulse Rate [ 90 From Monitor] Respiratory 22 23 Rate Respiratory Rate [Anterior Bilateral Throughout] Blood Pressure 116/62 114/46 114/46 O2 Sat by Pulse 100 100 100 Oximetry 09/18/16 09/18/16 09/18/16 01:00 01:11 02:00 Temperature Pulse Rate 175 H 102 H 56 L Pulse Rate [ Anterior Bilateral Throughout] Pulse Rate [ From Monitor] Respiratory 28 H 25 H Rate Respiratory Rate [Anterior Bilateral Throughout] Blood Pressure 126/99 126/99 121/38 O2 Sat by Pulse 100 100 Oximetry 09/18/16 09/18/16 09/18/16 02:48 03:00 04:00 Temperature 99.3 F Pulse Rate 88 96 H Pulse Rate [ 84 Anterior Bilateral Throughout] Pulse Rate [ 96 H From Monitor] Respiratory 25 H 25 H Rate Respiratory 24 Rate [Anterior Bilateral Throughout] Blood Pressure 121/46 123/45 O2 Sat by Pulse 100 100 Oximetry 09/18/16 09/18/16 09/18/16 04:15 05:01 06:01 Temperature Pulse Rate 79 96 H Pulse Rate [ Anterior Bilateral Throughout] Pulse Rate [ From Monitor] Respiratory 23 Rate Respiratory Rate [Anterior Bilateral Throughout] Blood Pressure 123/45 123/45 132/49 O2 Sat by Pulse 100 100 100 Oximetry 09/18/16 06:18 Temperature Pulse Rate Pulse Rate [ Anterior Bilateral Throughout] Pulse Rate [ From Monitor] Respiratory Rate Respiratory Rate [Anterior Bilateral Throughout] Blood Pressure 123/45 O2 Sat by Pulse Oximetry - General Appearance General appearance: well-developed, well-nourished, appears stated age, obese, intubated (FiO2 30%) EENT: ATNC Neck: supple Respiratory: Present: Other (coarse breath sounds) Cardiology: regular, S1S2, no murmurs Gastrointestinal: normoactive bowel sounds, obese Integumentary: no rash Neurologic: obtunded Musculoskeletal: other (2+ edema of both LEs noted) - Lab 09/17/16 05:00 06/09/17 06:30 Most recent lab results Calcium 7.4 mg/dL (8.4-10.2) L 09/18/16 06:30 Phosphorus 3.60 mg/dL (2.5-4.5) 08/29/16 21:59 Magnesium 1.60 mg/dL (1.7-2.3) L 09/18/16 06:30
[2016-09-18] MEDS ORDERED: MAGNESIUM SULFATE 2GM/50ML 2 GM/50 ML BAG IV ONE ×2 (07:33→13:00)
[2016-09-18] MEDS: LASIX IV SCH (10:11)
[2016-09-18] MEDS: SYNTHROID IV SCH (10:11)
[2016-09-18] MEDS: PROTONIX PO SCH (10:12)
[2016-09-18] MEDS: FOLVITE PO SCH (10:12)
[2016-09-18] MEDS: POTASSIUM CHLORIDE FEEDTUBE SCH ×3 (10:12→18:10)
[2016-09-18] MEDS: LOVENOX SUB-Q SCH (10:12)
[2016-09-18] MEDS: FERROUS SULFATE PO SCH (10:13)
[2016-09-18] MEDS: KEPPRA PO SCH ×2 (10:13→22:44)
--- NOTE | 2016-09-18 11:12 | Progress Note ---
Assessment and Plan (1) Respiratory failure Current Visit: Yes Status: Acute Qualifiers: Chronicity: C Respiratory failure complication: R Plan to address problem: - continue daytime PSV trials as tolerated - VAP bundle addressed - continue to Wean FIO2 for O2 sats>92% - continue VTE prophylaxis (SCD's re: thrombocytopenia) - continue Stress ulcer prophylaxis (Pantoprazole) - continuing sedation vacations while watching for any obvious seizure activity - continue Lung protective strategies - continue gentle diuresis now with better BP's and stopped IVF - seen by surgery and consent to be obtained today for trach +/- PEG if technically feasible - following clinically otherwise (2) Shock Current Visit: Yes Status: Acute Plan to address problem: - Treated as septic shock secondary to HCAP - off levophed now - continue strict glycemic control - completed AB's course; trending WBC - ID following - tapering off stress steroids now - continue midodrine for now but tapering (3) Acute on chronic diastolic (congestive) heart failure Current Visit: No Status: Acute Plan to address problem: - Documented EF 55% - continue gentle diuresis - Continue to monitoring renal function and electrolyte profile closely - continue to monitor urine output, electrolyte profile (4) Altered mental status Current Visit: Yes Status: Acute Qualifiers: Altered mental status type: unspecified Coma depth: C Coma timing: C Qualified Code(s): R41.82 - Altered mental status, unspecified Plan to address problem: - Neurology following - on keppra - weaned off ativan and will use prn now - TSH elevated and started on low dose levoxyl (5) Morbid obesity Current Visit: Yes Status: Acute Qualifiers: Obesity type: unspecified obesity type Qualified Code(s): E66.01 - Morbid ( severe) obesity due to excess calories - weight loss strategies once more stable - caloric intake per press manager at this point (6) Anemia Current Visit: Yes Status: Acute Qualifiers: Anemia type: unspecified type Iron deficiency anemia type: I Vitamin B12 deficiency anemia type: V Folate deficiency anemia type: F Bone marrow failure anemia type: B Hemolytic anemia type: H Other causes of anemia: O Qualified Code(s): D64.9 - Anemia, unspecified Plan to address problem: - no more coffee grounds noted - continuing PPI therapy - reglan taper shortly but advance tube feeds to goal for now - advancing tube feeds to goal as tolerated (7) Status epilepticus Current Visit: Yes Status: Acute Plan to address problem: - Continue AEDs - Neurology following - no obvious clinical seizure activity (8) 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 - This could be secondary to an intra-cranial process, however unable to obtain neuro-imaging, patient's weight exceeds allowable maximum (9) Discharge planning issues Current Visit: Yes Status: Acute Plan to address problem: - Continue current care. - need to determine appropriate power of family law attorney / legal healthcare pharmaceutical representative prior to any tentative withdrawal of care - son came by and signed DNR order however no consensus on hospice care / withdrawal - LTAC refused admission ..she remains critically ill on life sustaining interventions including MVS and at high risk for further deterioration including ....33' CCT Subjective Date of service: 09/18/16 Principal diagnosis: Acute Hypoxemic Hypercapnic Resp Failure; Severe Sepsis Interval history: Seen and examined at bedside; 24 hour events reviewed; nursing and respiratory care staff consulted; no adverse overnight events reported to me; remains on MVS ; tolerating daytime PSV trials still; AMS is persistent; awaiting trach and PEG ; tolerating tube feeds better Objective Vital Signs - 12hr 09/18/16 09/18/16 09/18/16 00:00 01:00 01:11 Temperature 98.8 F Pulse Rate 90 175 H 102 H Pulse Rate [ Anterior Bilateral Throughout] Pulse Rate [ 90 From Monitor] Respiratory 23 28 H Rate Respiratory Rate [Anterior Bilateral Throughout] Blood Pressure 114/46 126/99 126/99 O2 Sat by Pulse 100 100 Oximetry 09/18/16 09/18/16 09/18/16 02:00 02:48 03:00 Temperature Pulse Rate 56 L 88 Pulse Rate [ 84 Anterior Bilateral Throughout] Pulse Rate [ From Monitor] Respiratory 25 H 25 H Rate Respiratory 24 Rate [Anterior Bilateral Throughout] Blood Pressure 121/38 121/46 O2 Sat by Pulse 100 100 Oximetry 09/18/16 09/18/16 09/18/16 04:00 04:15 05:01 Temperature 99.3 F Pulse Rate 96 H 79 Pulse Rate [ Anterior Bilateral Throughout] Pulse Rate [ 96 H From Monitor] Respiratory 25 H Rate Respiratory Rate [Anterior Bilateral Throughout] Blood Pressure 123/45 123/45 123/45 O2 Sat by Pulse 100 100 100 Oximetry 09/18/16 09/18/16 09/18/16 06:01 06:18 07:01 Temperature Pulse Rate 96 H 97 H Pulse Rate [ Anterior Bilateral Throughout] Pulse Rate [ From Monitor] Respiratory 23 23 Rate Respiratory Rate [Anterior Bilateral Throughout] Blood Pressure 132/49 123/45 130/67 O2 Sat by Pulse 100 100 Oximetry 09/18/16 09/18/16 09/18/16 07:45 07:56 08:00 Temperature 98 F Pulse Rate 82 112 H Pulse Rate [ 82 Anterior Bilateral Throughout] Pulse Rate [ 76 From Monitor] Respiratory 27 H 29 H Rate Respiratory 27 H Rate [Anterior Bilateral Throughout] Blood Pressure 130/67 133/67 O2 Sat by Pulse 100 100 Oximetry 09/18/16 09/18/16 09/18/16 08:07 09:00 10:00 Temperature Pulse Rate 62 80 Pulse Rate [ 76 Anterior Bilateral Throughout] Pulse Rate [ From Monitor] Respiratory 21 24 Rate Respiratory 29 H Rate [Anterior Bilateral Throughout] Blood Pressure 119/45 122/47 O2 Sat by Pulse 97 98 Oximetry 09/18/16 09/18/16 10:12 11:00 Temperature Pulse Rate 71 81 Pulse Rate [ Anterior Bilateral Throughout] Pulse Rate [ From Monitor] Respiratory 22 Rate Respiratory Rate [Anterior Bilateral Throughout] Blood Pressure 122/47 113/71 O2 Sat by Pulse 100 Oximetry Constitutional: no acute distress, other (encephalopathic) Eyes: non-icteric ENT: oropharynx moist Neck: supple, no lymphadenopathy Effort: mildly labored Ascultation: Bilateral: diminished breath sounds (bases), rales Cardiovascular: regular rate and rhythm Gastrointestinal: hypoactive bowel sounds, soft, non-tender, non-distended Integumentary: normal Extremities: no cyanosis, pulses normal, no ischemia or petechiae, edema (1++) Neurologic: unable to assess, other (lethargic) Psychiatric: other (sedated) CBC and BMP: 09/17/16 05:00 09/19/16 04:45 ABG, PT/INR, D-dimer: ABG POC ABG pH 7.454 (7.35-7.45) H 09/09/16 12:33 POC ABG pCO2 38.4 (35-45) 09/09/16 12:33 POC ABG pO2 75 (80-105) L 09/09/16 12:33 POC ABG HCO3 27.0 09/09/16 12:33 POC ABG Total CO2 28 09/09/16 12:33 POC ABG O2 Sat 96 09/09/16 12:33 PT/INR, D-dimer PT 13.8 Sec. (12.2-14.9) 09/10/16 05:10 INR 1.07 (0.87-1.13) 09/10/16 05:10 Abnormal lab findings: Abnormal Labs 08/29/16 08/30/16 08/30/16 21:59 00:16 05:39 WBC RBC Hgb Hct MCH MCHC RDW Plt Count Seg Neutrophils % Seg Neuts % (Manual) Nucleated RBC % Seg Neutrophils # Seg Neutrophils # Man PT INR POC ABG pH POC ABG pCO2 POC ABG pO2 Sodium Potassium Chloride Carbon Dioxide BUN Creatinine Glucose POC Glucose 106 H 128 H Lactic Acid Calcium Magnesium Total Bilirubin AST ALT Alkaline Phosphatase Ammonia Troponin T C-Reactive Protein Total Protein Albumin Prealbumin 0.120 L TSH Crossmatch 08/30/16 08/30/16 08/30/16 10:30 10:30 11:12 WBC 11.1 H RBC 3.16 L Hgb 8.7 L Hct 29.9 L MCH MCHC 29 L RDW 25.0 H Plt Count Seg Neutrophils % 78.6 H Seg Neuts % (Manual) Nucleated RBC % Seg Neutrophils # 8.7 H Seg Neutrophils # Man PT INR POC ABG pH POC ABG pCO2 POC ABG pO2 Sodium 135 L Potassium Chloride Carbon Dioxide 20 L BUN Creatinine 1.5 H Glucose 148 H POC Glucose 142 H Lactic Acid Calcium 7.2 L Magnesium Total Bilirubin 1.30 H AST 143 H ALT Alkaline Phosphatase 392 H Ammonia Troponin T C-Reactive Protein Total Protein 6.1 L Albumin 1.2 L Prealbumin TSH Crossmatch 08/30/16 08/30/16 08/30/16 17:41 18:03 18:18 WBC RBC Hgb Hct MCH MCHC RDW Plt Count Seg Neutrophils % Seg Neuts % (Manual) Nucleated RBC % Seg Neutrophils # Seg Neutrophils # Man PT INR POC ABG pH 7.316 L POC ABG pCO2 POC ABG pO2 44 L 59 L Sodium Potassium Chloride Carbon Dioxide BUN Creatinine Glucose POC Glucose 150 H Lactic Acid Calcium Magnesium Total Bilirubin AST ALT Alkaline Phosphatase Ammonia Troponin T C-Reactive Protein Total Protein Albumin Prealbumin TSH Crossmatch 08/30/16 08/30/16 08/31/16 22:20 22:20 00:11 WBC RBC Hgb Hct MCH MCHC RDW Plt Count Seg Neutrophils % Seg Neuts % (Manual) Nucleated RBC % Seg Neutrophils # Seg Neutrophils # Man PT INR POC ABG pH POC ABG pCO2 POC ABG pO2 Sodium Potassium Chloride Carbon Dioxide BUN Creatinine Glucose POC Glucose 133 H Lactic Acid 2.30 H* Calcium Magnesium Total Bilirubin AST ALT Alkaline Phosphatase Ammonia Troponin T C-Reactive Protein 10.20 H Total Protein Albumin Prealbumin TSH Crossmatch 08/31/16 08/31/16 08/31/16 04:20 04:20 04:20 WBC 18.3 H RBC 3.19 L Hgb 8.8 L Hct 30.0 L MCH 27 L MCHC 29 L RDW 23.9 H Plt Count Seg Neutrophils % Seg Neuts % (Manual) Nucleated RBC % Seg Neutrophils # Seg Neutrophils # Man PT 16.8 H INR 1.37 H POC ABG pH POC ABG pCO2 POC ABG pO2 Sodium 136 L Potassium Chloride Carbon Dioxide 19 L BUN Creatinine 1.5 H Glucose 125 H POC Glucose Lactic Acid Calcium 7.0 L Magnesium Total Bilirubin 1.50 H AST 131 H ALT Alkaline Phosphatase 431 H Ammonia Troponin T C-Reactive Protein Total Protein 6.2 L Albumin 1.2 L Prealbumin TSH Crossmatch 08/31/16 08/31/16 08/31/16 04:20 05:22 05:24 WBC RBC Hgb Hct MCH MCHC RDW Plt Count Seg Neutrophils % Seg Neuts % (Manual) Nucleated RBC % Seg Neutrophils # Seg Neutrophils # Man PT INR POC ABG pH POC ABG pCO2 POC ABG pO2 142 H Sodium Potassium Chloride Carbon Dioxide BUN Creatinine Glucose POC Glucose 123 H Lactic Acid Calcium Magnesium Total Bilirubin AST ALT Alkaline Phosphatase Ammonia 70.0 H Troponin T C-Reactive Protein Total Protein Albumin Prealbumin TSH Crossmatch 08/31/16 08/31/16 08/31/16 12:10 15:45 17:38 WBC RBC Hgb Hct MCH MCHC RDW Plt Count Seg Neutrophils % Seg Neuts % (Manual) Nucleated RBC % Seg Neutrophils # Seg Neutrophils # Man PT INR POC ABG pH POC ABG pCO2 POC ABG pO2 Sodium 136 L Potassium Chloride Carbon Dioxide 21 L BUN Creatinine 1.5 H Glucose 160 H POC Glucose 147 H 151 H Lactic Acid Calcium 6.9 L Magnesium Total Bilirubin AST ALT Alkaline Phosphatase Ammonia Troponin T 0.109 H* D C-Reactive Protein Total Protein Albumin Prealbumin TSH Crossmatch 09/01/16 09/01/16 09/01/16 00:09 04:00 04:00 WBC 14.8 H RBC 2.89 L Hgb 7.8 L Hct 27.2 L MCH 27 L MCHC 29 L RDW 24.4 H Plt Count Seg Neutrophils % Seg Neuts % (Manual) Nucleated RBC % Seg Neutrophils # Seg Neutrophils # Man PT 18.2 H INR 1.51 H POC ABG pH POC ABG pCO2 POC ABG pO2 Sodium Potassium Chloride Carbon Dioxide BUN Creatinine Glucose POC Glucose 192 H Lactic Acid Calcium Magnesium Total Bilirubin AST ALT Alkaline Phosphatase Ammonia Troponin T C-Reactive Protein Total Protein Albumin Prealbumin TSH Crossmatch 09/01/16 09/01/16 09/01/16 04:00 05:28 11:28 WBC RBC Hgb Hct MCH MCHC RDW Plt Count Seg Neutrophils % Seg Neuts % (Manual) Nucleated RBC % Seg Neutrophils # Seg Neutrophils # Man PT INR POC ABG pH POC ABG pCO2 POC ABG pO2 Sodium Potassium Chloride Carbon Dioxide 20 L BUN Creatinine 1.6 H Glucose 183 H POC Glucose 189 H 207 H Lactic Acid Calcium 6.9 L Magnesium Total Bilirubin 1.30 H AST 138 H ALT Alkaline Phosphatase 520 H Ammonia Troponin T C-Reactive Protein Total Protein 6.1 L Albumin 1.2 L Prealbumin TSH Crossmatch 09/01/16 09/01/16 09/02/16 16:56 23:49 05:00 WBC RBC Hgb Hct MCH MCHC RDW Plt Count Seg Neutrophils % Seg Neuts % (Manual) Nucleated RBC % Seg Neutrophils # Seg Neutrophils # Man PT 18.0 H INR 1.49 H POC ABG pH POC ABG pCO2 POC ABG pO2 Sodium Potassium Chloride Carbon Dioxide BUN Creatinine Glucose POC Glucose 250 H 307 H Lactic Acid Calcium Magnesium Total Bilirubin AST ALT Alkaline Phosphatase Ammonia Troponin T C-Reactive Protein Total Protein Albumin Prealbumin TSH Crossmatch 09/02/16 09/02/16 09/02/16 05:00 05:00 05:45 WBC 12.3 H RBC 2.57 L Hgb 7.1 L Hct 23.4 L MCH MCHC RDW 23.9 H Plt Count Seg Neutrophils % Seg Neuts % (Manual) 72.0 H Nucleated RBC % 25.0 H Seg Neutrophils # Seg Neutrophils # Man 8.9 H PT INR POC ABG pH POC ABG pCO2 POC ABG pO2 Sodium Potassium Chloride Carbon Dioxide BUN Creatinine 1.4 H Glucose 299 H POC Glucose 327 H Lactic Acid Calcium 7.0 L Magnesium Total Bilirubin AST ALT Alkaline Phosphatase Ammonia Troponin T C-Reactive Protein Total Protein Albumin Prealbumin TSH Crossmatch 09/02/16 09/02/16 09/02/16 12:22 17:22 23:24 WBC RBC Hgb Hct MCH MCHC RDW Plt Count Seg Neutrophils % Seg Neuts % (Manual) Nucleated RBC % Seg Neutrophils # Seg Neutrophils # Man PT INR POC ABG pH POC ABG pCO2 POC ABG pO2 Sodium Potassium Chloride Carbon Dioxide BUN Creatinine Glucose POC Glucose 310 H 358 H 286 H Lactic Acid Calcium Magnesium Total Bilirubin AST ALT Alkaline Phosphatase Ammonia Troponin T C-Reactive Protein Total Protein Albumin Prealbumin TSH Crossmatch 09/03/16 09/03/16 09/03/16 04:10 04:10 04:10 WBC 11.8 H RBC 2.29 L Hgb 6.1 L Hct 21.0 L MCH 27 L MCHC 29 L RDW 24.1 H Plt Count Seg Neutrophils % Seg Neuts % (Manual) Nucleated RBC % Seg Neutrophils # Seg Neutrophils # Man PT 17.6 H INR 1.45 H POC ABG pH POC ABG pCO2 POC ABG pO2 Sodium Potassium Chloride Carbon Dioxide BUN Creatinine 1.4 H Glucose 301 H POC Glucose Lactic Acid Calcium 7.0 L Magnesium Total Bilirubin AST ALT Alkaline Phosphatase Ammonia Troponin T C-Reactive Protein Total Protein Albumin Prealbumin TSH Crossmatch 09/03/16 09/03/16 09/03/16 05:59 11:36 17:42 WBC RBC Hgb Hct MCH MCHC RDW Plt Count Seg Neutrophils % Seg Neuts % (Manual) Nucleated RBC % Seg Neutrophils # Seg Neutrophils # Man PT INR POC ABG pH POC ABG pCO2 POC ABG pO2 Sodium Potassium Chloride Carbon Dioxide BUN Creatinine Glucose POC Glucose 351 H 285 H 259 H Lactic Acid Calcium Magnesium Total Bilirubin AST ALT Alkaline Phosphatase Ammonia Troponin T C-Reactive Protein Total Protein Albumin Prealbumin TSH Crossmatch 09/03/16 09/04/16 09/04/16 23:00 04:27 05:36 WBC RBC Hgb Hct MCH MCHC RDW Plt Count Seg Neutrophils % Seg Neuts % (Manual) Nucleated RBC % Seg Neutrophils # Seg Neutrophils # Man PT INR POC ABG pH 7.544 H POC ABG pCO2 30.8 L POC ABG pO2 78 L Sodium Potassium Chloride Carbon Dioxide BUN Creatinine Glucose POC Glucose 192 H 228 H Lactic Acid Calcium Magnesium Total Bilirubin AST ALT Alkaline Phosphatase Ammonia Troponin T C-Reactive Protein Total Protein Albumin Prealbumin TSH Crossmatch 09/04/16 09/04/16 09/04/16 06:37 06:37 06:39 WBC 21.0 H RBC 2.22 L Hgb 6.0 L Hct 20.1 L MCH 27 L MCHC RDW 24.3 H Plt Count Seg Neutrophils % Seg Neuts % (Manual) Nucleated RBC % Seg Neutrophils # Seg Neutrophils # Man PT 16.8 H INR 1.37 H POC ABG pH POC ABG pCO2 POC ABG pO2 Sodium Potassium Chloride Carbon Dioxide BUN Creatinine 1.4 H Glucose 201 H POC Glucose Lactic Acid Calcium 7.1 L Magnesium Total Bilirubin AST ALT Alkaline Phosphatase Ammonia Troponin T C-Reactive Protein Total Protein Albumin Prealbumin TSH Crossmatch 09/04/16 09/04/16 09/04/16 12:14 15:47 17:41 WBC RBC Hgb Hct MCH MCHC RDW Plt Count Seg Neutrophils % Seg Neuts % (Manual) Nucleated RBC % Seg Neutrophils # Seg Neutrophils # Cristian PT INR POC ABG pH POC ABG pCO2 POC ABG pO2 Sodium Potassium Chloride Carbon Dioxide BUN Creatinine Glucose POC Glucose 176 H 218 H Lactic Acid Calcium Magnesium Total Bilirubin AST ALT Alkaline Phosphatase Ammonia Troponin T C-Reactive Protein Total Protein Albumin Prealbumin TSH Crossmatch See Detail 09/04/16 09/04/16 09/05/16 21:59 23:48 04:30 WBC RBC Hgb Hct MCH MCHC RDW Plt Count Seg Neutrophils % Seg Neuts % (Manual) Nucleated RBC % Seg Neutrophils # Seg Neutrophils # Man PT 17.2 H INR 1.41 H POC ABG pH POC ABG pCO2 POC ABG pO2 Sodium Potassium Chloride Carbon Dioxide BUN Creatinine Glucose POC Glucose 170 H 121 H Lactic Acid Calcium Magnesium Total Bilirubin AST ALT Alkaline Phosphatase Ammonia Troponin T C-Reactive Protein Total Protein Albumin Prealbumin TSH Crossmatch 09/05/16 09/05/16 09/05/16 04:30 04:30 05:09 WBC 31.9 H RBC 3.11 L Hgb 8.5 L Hct 28.3 L D MCH 27 L MCHC RDW 21.0 H Plt Count Seg Neutrophils % Seg Neuts % (Manual) Nucleated RBC % Seg Neutrophils # Seg Neutrophils # Man PT INR POC ABG pH 7.226 L POC ABG pCO2 61.6 H POC ABG pO2 68 L Sodium 134 L Potassium 5.5 H Chloride 96.6 L Carbon Dioxide BUN 23 H Creatinine 1.6 H Glucose 116 H POC Glucose Lactic Acid Calcium 7.1 L Magnesium Total Bilirubin AST ALT Alkaline Phosphatase Ammonia Troponin T C-Reactive Protein Total Protein Albumin Prealbumin TSH Crossmatch 09/05/16 09/05/16 09/05/16 05:33 12:08 17:32 WBC RBC Hgb Hct MCH MCHC RDW Plt Count Seg Neutrophils % Seg Neuts % (Manual) Nucleated RBC % Seg Neutrophils # Seg Neutrophils # Man PT INR POC ABG pH POC ABG pCO2 POC ABG pO2 Sodium Potassium Chloride Carbon Dioxide BUN Creatinine Glucose POC Glucose 114 H 147 H 174 H Lactic Acid Calcium Magnesium Total Bilirubin AST ALT Alkaline Phosphatase Ammonia Troponin T C-Reactive Protein Total Protein Albumin Prealbumin TSH Crossmatch 09/06/16 09/06/16 09/06/16 03:30 03:30 03:30 WBC 25.4 H RBC 2.57 L Hgb 7.2 L Hct 22.8 L MCH MCHC RDW 20.9 H Plt Count 138 L Seg Neutrophils % Seg Neuts % (Manual) Nucleated RBC % Seg Neutrophils # Seg Neutrophils # Man PT 16.4 H INR 1.33 H POC ABG pH POC ABG pCO2 POC ABG pO2 Sodium Potassium Chloride Carbon Dioxide BUN 36 H Creatinine 1.9 H Glucose POC Glucose Lactic Acid Calcium 7.2 L Magnesium Total Bilirubin AST ALT Alkaline Phosphatase Ammonia Troponin T C-Reactive Protein Total Protein Albumin Prealbumin TSH Crossmatch 09/06/16 09/06/16 09/06/16 11:07 12:03 14:44 WBC RBC Hgb Hct MCH MCHC RDW Plt Count Seg Neutrophils % Seg Neuts % (Manual) Nucleated RBC % Seg Neutrophils # Seg Neutrophils # Man PT INR POC ABG pH POC ABG pCO2 POC ABG pO2 Sodium Potassium Chloride Carbon Dioxide BUN Creatinine Glucose POC Glucose 61 L 55 L Lactic Acid Calcium Magnesium Total Bilirubin AST ALT Alkaline Phosphatase Ammonia Troponin T 0.080 H C-Reactive Protein Total Protein Albumin Prealbumin TSH Crossmatch 05/28/17 05/28/17 05/29/17 21:05 23:53 03:36 WBC RBC Hgb Hct MCH MCHC RDW Plt Count Seg Neutrophils % Seg Neuts % (Manual) Nucleated RBC % Seg Neutrophils # Seg Neutrophils # Man PT INR POC ABG pH POC ABG pCO2 POC ABG pO2 Sodium Potassium Chloride Carbon Dioxide BUN Creatinine Glucose POC Glucose 140 H 178 H 243 H Lactic Acid Calcium Magnesium Total Bilirubin AST ALT Alkaline Phosphatase Ammonia Troponin T C-Reactive Protein Total Protein Albumin Prealbumin TSH Crossmatch 09/07/16 09/07/16 09/07/16 03:42 03:42 05:04 WBC 17.3 H RBC 2.69 L Hgb 7.6 L Hct 23.8 L MCH MCHC RDW 20.5 H Plt Count 137 L Seg Neutrophils % Seg Neuts % (Manual) Nucleated RBC % Seg Neutrophils # Seg Neutrophils # Man PT INR POC ABG pH POC ABG pCO2 POC ABG pO2 Sodium Potassium 3.3 L Chloride Carbon Dioxide BUN 38 H Creatinine 1.6 H Glucose 201 H POC Glucose 241 H Lactic Acid Calcium 7.4 L Magnesium Total Bilirubin AST ALT Alkaline Phosphatase Ammonia Troponin T C-Reactive Protein Total Protein Albumin Prealbumin TSH Crossmatch 09/07/16 09/07/16 09/07/16 11:46 17:41 23:18 WBC RBC Hgb Hct MCH MCHC RDW Plt Count Seg Neutrophils % Seg Neuts % (Manual) Nucleated RBC % Seg Neutrophils # Seg Neutrophils # Man PT INR POC ABG pH POC ABG pCO2 POC ABG pO2 Sodium Potassium Chloride Carbon Dioxide BUN Creatinine Glucose POC Glucose 313 H 227 H 116 H Lactic Acid Calcium Magnesium Total Bilirubin AST ALT Alkaline Phosphatase Ammonia Troponin T C-Reactive Protein Total Protein Albumin Prealbumin TSH Crossmatch 09/08/16 09/08/16 09/08/16 04:00 04:00 05:15 WBC 18.4 H RBC 2.43 L Hgb 6.9 L Hct 21.5 L MCH MCHC RDW 20.5 H Plt Count 119 L Seg Neutrophils % Seg Neuts % (Manual) Nucleated RBC % Seg Neutrophils # Seg Neutrophils # Man PT INR POC ABG pH 7.458 H POC ABG pCO2 POC ABG pO2 177 H Sodium Potassium 3.5 L Chloride Carbon Dioxide BUN 37 H Creatinine 1.3 H Glucose POC Glucose Lactic Acid Calcium 7.1 L Magnesium Total Bilirubin AST ALT Alkaline Phosphatase Ammonia Troponin T C-Reactive Protein Total Protein Albumin Prealbumin TSH Crossmatch 09/08/16 09/08/16 09/08/16 11:00 15:58 23:16 WBC RBC Hgb Hct MCH MCHC RDW Plt Count Seg Neutrophils % Seg Neuts % (Manual) Nucleated RBC % Seg Neutrophils # Seg Neutrophils # Man PT INR POC ABG pH POC ABG pCO2 POC ABG pO2 113 H Sodium Potassium Chloride Carbon Dioxide BUN Creatinine Glucose POC Glucose 40 L Lactic Acid Calcium Magnesium Total Bilirubin AST ALT Alkaline Phosphatase Ammonia Troponin T C-Reactive Protein Total Protein Albumin Prealbumin TSH Crossmatch See Detail 09/09/16 09/09/16 09/09/16 05:02 12:33 18:10 WBC RBC Hgb Hct MCH MCHC RDW Plt Count Seg Neutrophils % Seg Neuts % (Manual) Nucleated RBC % Seg Neutrophils # Seg Neutrophils # Man PT INR POC ABG pH 7.454 H POC ABG pCO2 POC ABG pO2 75 L Sodium Potassium Chloride Carbon Dioxide BUN Creatinine Glucose POC Glucose 59 L Lactic Acid Calcium Magnesium Total Bilirubin AST ALT Alkaline Phosphatase Ammonia Troponin T C-Reactive Protein Total Protein Albumin Prealbumin TSH 5.220 H Crossmatch 09/09/16 09/09/16 09/09/16 18:10 18:10 18:42 WBC 17.0 H RBC 2.90 L Hgb 8.5 L Hct 26.1 L MCH MCHC RDW 17.9 H Plt Count 126 L Seg Neutrophils % Seg Neuts % (Manual) Nucleated RBC % Seg Neutrophils # Seg Neutrophils # Man PT INR POC ABG pH POC ABG pCO2 POC ABG pO2 Sodium Potassium Chloride Carbon Dioxide BUN 36 H Creatinine Glucose 133 H POC Glucose 148 H Lactic Acid Calcium 6.9 L Magnesium Total Bilirubin AST 253 H ALT 184 H Alkaline Phosphatase 729 H Ammonia Troponin T C-Reactive Protein Total Protein 5.1 L Albumin 1.7 L Prealbumin TSH Crossmatch 09/09/16 09/10/16 09/10/16 23:22 05:10 11:43 WBC RBC Hgb Hct MCH MCHC RDW Plt Count Seg Neutrophils % Seg Neuts % (Manual) Nucleated RBC % Seg Neutrophils # Seg Neutrophils # Man PT INR POC ABG pH POC ABG pCO2 POC ABG pO2 Sodium Potassium Chloride Carbon Dioxide BUN 35 H Creatinine Glucose 240 H POC Glucose 170 H 268 H Lactic Acid Calcium 6.8 L Magnesium Total Bilirubin AST 226 H ALT 171 H Alkaline Phosphatase 710 H Ammonia Troponin T C-Reactive Protein Total Protein 5.2 L Albumin 1.7 L Prealbumin TSH Crossmatch 09/10/16 09/11/16 09/11/16 17:51 01:07 05:00 WBC RBC Hgb Hct MCH MCHC RDW Plt Count Seg Neutrophils % Seg Neuts % (Manual) Nucleated RBC % Seg Neutrophils # Seg Neutrophils # Cristian PT INR POC ABG pH POC ABG pCO2 POC ABG pO2 Sodium Potassium 2.9 L* Chloride Carbon Dioxide BUN 35 H Creatinine Glucose 274 H POC Glucose 334 H 223 H Lactic Acid Calcium 6.9 L Magnesium Total Bilirubin AST 167 H ALT 145 H Alkaline Phosphatase 631 H Ammonia Troponin T C-Reactive Protein Total Protein 5.1 L Albumin 1.6 L Prealbumin TSH Crossmatch 09/11/16 09/11/16 09/11/16 05:01 12:16 17:12 WBC RBC Hgb Hct MCH MCHC RDW Plt Count Seg Neutrophils % Seg Neuts % (Manual) Nucleated RBC % Seg Neutrophils # Seg Neutrophils # Man PT INR POC ABG pH POC ABG pCO2 POC ABG pO2 Sodium Potassium Chloride Carbon Dioxide BUN Creatinine Glucose POC Glucose 305 H 219 H 171 H Lactic Acid Calcium Magnesium Total Bilirubin AST ALT Alkaline Phosphatase Ammonia Troponin T C-Reactive Protein Total Protein Albumin Prealbumin TSH Crossmatch 09/11/16 09/12/16 09/12/16 23:35 03:33 05:00 WBC 12.9 H RBC 2.81 L Hgb 8.2 L Hct 25.4 L MCH MCHC RDW 17.9 H Plt Count Seg Neutrophils % Seg Neuts % (Manual) Nucleated RBC % Seg Neutrophils # Seg Neutrophils # Man PT INR POC ABG pH POC ABG pCO2 POC ABG pO2 Sodium Potassium Chloride Carbon Dioxide BUN Creatinine Glucose POC Glucose 216 H 183 H Lactic Acid Calcium Magnesium Total Bilirubin AST ALT Alkaline Phosphatase Ammonia Troponin T C-Reactive Protein Total Protein Albumin Prealbumin TSH Crossmatch 09/12/16 09/12/16 09/12/16 05:00 15:15 18:30 WBC RBC Hgb Hct MCH MCHC RDW Plt Count Seg Neutrophils % Seg Neuts % (Manual) Nucleated RBC % Seg Neutrophils # Seg Neutrophils # Man PT INR POC ABG pH POC ABG pCO2 POC ABG pO2 Sodium Potassium 3.0 L 3.4 L Chloride Carbon Dioxide BUN 33 H Creatinine 0.5 L Glucose POC Glucose 215 H Lactic Acid Calcium 7.0 L Magnesium Total Bilirubin AST ALT Alkaline Phosphatase Ammonia Troponin T C-Reactive Protein Total Protein Albumin Prealbumin TSH Crossmatch 09/12/16 09/13/16 09/13/16 23:17 05:50 05:50 WBC RBC 2.93 L Hgb 8.8 L Hct 26.7 L MCH MCHC RDW 18.0 H Plt Count Seg Neutrophils % Seg Neuts % (Manual) Nucleated RBC % Seg Neutrophils # Seg Neutrophils # Man PT INR POC ABG pH POC ABG pCO2 POC ABG pO2 Sodium Potassium 2.6 L* D Chloride Carbon Dioxide BUN 29 H Creatinine 0.5 L Glucose 106 H POC Glucose 155 H Lactic Acid Calcium 7.3 L Magnesium Total Bilirubin AST ALT Alkaline Phosphatase Ammonia Troponin T C-Reactive Protein Total Protein Albumin Prealbumin TSH Crossmatch 09/13/16 09/13/16 09/13/16 05:53 11:43 15:07 WBC RBC Hgb Hct MCH MCHC RDW Plt Count Seg Neutrophils % Seg Neuts % (Manual) Nucleated RBC % Seg Neutrophils # Seg Neutrophils # Man PT INR POC ABG pH POC ABG pCO2 POC ABG pO2 Sodium Potassium 2.8 L* Chloride Carbon Dioxide BUN Creatinine Glucose POC Glucose 119 H 129 H Lactic Acid Calcium Magnesium Total Bilirubin AST ALT Alkaline Phosphatase Ammonia Troponin T C-Reactive Protein Total Protein Albumin Prealbumin TSH Crossmatch 09/13/16 09/13/16 09/14/16 17:39 23:30 05:34 WBC RBC Hgb Hct MCH MCHC RDW Plt Count Seg Neutrophils % Seg Neuts % (Manual) Nucleated RBC % Seg Neutrophils # Seg Neutrophils # Man PT INR POC ABG pH POC ABG pCO2 POC ABG pO2 Sodium Potassium Chloride Carbon Dioxide BUN Creatinine Glucose POC Glucose 144 H 196 H 175 H Lactic Acid Calcium Magnesium Total Bilirubin AST ALT Alkaline Phosphatase Ammonia Troponin T C-Reactive Protein Total Protein Albumin Prealbumin TSH Crossmatch 09/14/16 09/14/16 09/14/16 06:24 06:24 12:41 WBC RBC 2.82 L Hgb 8.4 L Hct 25.7 L MCH MCHC RDW 18.0 H Plt Count Seg Neutrophils % Seg Neuts % (Manual) Nucleated RBC % Seg Neutrophils # Seg Neutrophils # Man PT INR POC ABG pH POC ABG pCO2 POC ABG pO2 Sodium Potassium 2.9 L* Chloride 107.3 H Carbon Dioxide BUN 26 H Creatinine 0.4 L Glucose 169 H POC Glucose 184 H Lactic Acid Calcium 7.5 L Magnesium Total Bilirubin AST ALT Alkaline Phosphatase Ammonia Troponin T C-Reactive Protein Total Protein Albumin Prealbumin TSH Crossmatch 09/14/16 09/14/16 09/14/16 14:50 17:57 23:34 WBC RBC Hgb Hct MCH MCHC RDW Plt Count Seg Neutrophils % Seg Neuts % (Manual) Nucleated RBC % Seg Neutrophils # Seg Neutrophils # Man PT INR POC ABG pH POC ABG pCO2 POC ABG pO2 Sodium Potassium 3.3 L Chloride Carbon Dioxide BUN Creatinine Glucose POC Glucose 191 H 178 H Lactic Acid Calcium Magnesium Total Bilirubin AST ALT Alkaline Phosphatase Ammonia Troponin T C-Reactive Protein Total Protein Albumin Prealbumin TSH Crossmatch 09/15/16 09/15/16 09/15/16 05:02 07:57 07:57 WBC RBC 3.04 L Hgb 9.2 L Hct 28.2 L MCH MCHC RDW 18.8 H Plt Count Seg Neutrophils % Seg Neuts % (Manual) Nucleated RBC % Seg Neutrophils # Seg Neutrophils # Man PT INR POC ABG pH POC ABG pCO2 POC ABG pO2 Sodium Potassium Chloride 107.2 H Carbon Dioxide BUN 26 H Creatinine 0.4 L Glucose 160 H POC Glucose 192 H Lactic Acid Calcium 7.7 L Magnesium Total Bilirubin AST ALT Alkaline Phosphatase Ammonia Troponin T C-Reactive Protein Total Protein Albumin Prealbumin TSH Crossmatch 09/15/16 09/15/16 09/15/16 11:23 17:51 23:45 WBC RBC Hgb Hct MCH MCHC RDW Plt Count Seg Neutrophils % Seg Neuts % (Manual) Nucleated RBC % Seg Neutrophils # Seg Neutrophils # Man PT INR POC ABG pH POC ABG pCO2 POC ABG pO2 Sodium Potassium Chloride Carbon Dioxide BUN Creatinine Glucose POC Glucose 232 H 240 H 251 H Lactic Acid Calcium Magnesium Total Bilirubin AST ALT Alkaline Phosphatase Ammonia Troponin T C-Reactive Protein Total Protein Albumin Prealbumin TSH Crossmatch 09/16/16 09/16/16 09/16/16 04:55 04:55 05:38 WBC RBC 2.84 L Hgb 8.6 L Hct 26.2 L MCH MCHC RDW 18.8 H Plt Count Seg Neutrophils % Seg Neuts % (Manual) Nucleated RBC % Seg Neutrophils # Seg Neutrophils # Man PT INR POC ABG pH POC ABG pCO2 POC ABG pO2 Sodium Potassium 3.1 L Chloride 107.6 H Carbon Dioxide BUN 25 H Creatinine 0.3 L Glucose 134 H POC Glucose 157 H Lactic Acid Calcium 7.6 L Magnesium Total Bilirubin AST ALT Alkaline Phosphatase Ammonia Troponin T C-Reactive Protein Total Protein Albumin Prealbumin TSH Crossmatch 09/16/16 09/16/16 09/16/16 11:53 17:56 23:54 WBC RBC Hgb Hct MCH MCHC RDW Plt Count Seg Neutrophils % Seg Neuts % (Manual) Nucleated RBC % Seg Neutrophils # Seg Neutrophils # Man PT INR POC ABG pH POC ABG pCO2 POC ABG pO2 Sodium Potassium Chloride Carbon Dioxide BUN Creatinine Glucose POC Glucose 137 H 138 H 179 H Lactic Acid Calcium Magnesium Total Bilirubin AST ALT Alkaline Phosphatase Ammonia Troponin T C-Reactive Protein Total Protein Albumin Prealbumin TSH Crossmatch 09/17/16 09/17/16 09/17/16 05:00 05:00 05:28 WBC RBC 2.77 L Hgb 8.2 L Hct 25.9 L MCH MCHC RDW 19.1 H Plt Count Seg Neutrophils % Seg Neuts % (Manual) Nucleated RBC % Seg Neutrophils # Seg Neutrophils # Man PT INR POC ABG pH POC ABG pCO2 POC ABG pO2 Sodium Potassium 3.5 L Chloride 108.4 H Carbon Dioxide BUN 29 H Creatinine 0.3 L Glucose 117 H POC Glucose 142 H Lactic Acid Calcium 7.4 L Magnesium Total Bilirubin AST ALT Alkaline Phosphatase Ammonia Troponin T C-Reactive Protein Total Protein Albumin Prealbumin TSH Crossmatch 09/17/16 09/17/16 09/18/16 18:07 23:31 06:29 WBC RBC Hgb Hct MCH MCHC RDW Plt Count Seg Neutrophils % Seg Neuts % (Manual) Nucleated RBC % Seg Neutrophils # Seg Neutrophils # Man PT INR POC ABG pH POC ABG pCO2 POC ABG pO2 Sodium Potassium Chloride Carbon Dioxide BUN Creatinine Glucose POC Glucose 173 H 240 H 282 H Lactic Acid Calcium Magnesium Total Bilirubin AST ALT Alkaline Phosphatase Ammonia Troponin T C-Reactive Protein Total Protein Albumin Prealbumin TSH Crossmatch 09/18/16 06:30 WBC RBC Hgb Hct MCH MCHC RDW Plt Count Seg Neutrophils % Seg Neuts % (Manual) Nucleated RBC % Seg Neutrophils # Seg Neutrophils # Man PT INR POC ABG pH POC ABG pCO2 POC ABG pO2 Sodium 148 H Potassium Chloride 110.7 H Carbon Dioxide BUN 30 H Creatinine 0.4 L Glucose 249 H POC Glucose Lactic Acid Calcium 7.4 L Magnesium 1.60 L Total Bilirubin AST ALT Alkaline Phosphatase Ammonia Troponin T C-Reactive Protein Total Protein Albumin Prealbumin TSH Crossmatch Allied health notes reviewed: RT
--- NOTE | 2016-09-18 13:01 | Progress Note ---
Assessment and Plan A/P: 1) i spoke to the patient's sister today who has given consent for us to proceed forward with the tracheostomy/PEG tube. The procedure and its risks and benefits were explained to her. The risks include bleeding, infection, and injury to any surrounding organs. Ample time was given for questions and all questions were answered. We will schedule the procedure at the earliest available time. Subjective Date of service: 09/18/16 Narrative: The patient remains intubated. Objective Vital Signs - 12hr 09/18/16 09/18/16 09/18/16 01:00 01:11 02:00 Temperature Pulse Rate 175 H 102 H 56 L Pulse Rate [ Anterior Bilateral Throughout] Pulse Rate [ From Monitor] Respiratory 28 H 25 H Rate Respiratory Rate [Anterior Bilateral Throughout] Blood Pressure 126/99 126/99 121/38 O2 Sat by Pulse 100 100 Oximetry 09/18/16 09/18/16 09/18/16 02:48 03:00 04:00 Temperature 99.3 F Pulse Rate 88 96 H Pulse Rate [ 84 Anterior Bilateral Throughout] Pulse Rate [ 96 H From Monitor] Respiratory 25 H 25 H Rate Respiratory 24 Rate [Anterior Bilateral Throughout] Blood Pressure 121/46 123/45 O2 Sat by Pulse 100 100 Oximetry 09/18/16 09/18/16 09/18/16 04:15 05:01 06:01 Temperature Pulse Rate 79 96 H Pulse Rate [ Anterior Bilateral Throughout] Pulse Rate [ From Monitor] Respiratory 23 Rate Respiratory Rate [Anterior Bilateral Throughout] Blood Pressure 123/45 123/45 132/49 O2 Sat by Pulse 100 100 100 Oximetry 09/18/16 09/18/16 09/18/16 06:18 07:01 07:45 Temperature 98 F Pulse Rate 97 H Pulse Rate [ Anterior Bilateral Throughout] Pulse Rate [ From Monitor] Respiratory 23 Rate Respiratory Rate [Anterior Bilateral Throughout] Blood Pressure 123/45 130/67 O2 Sat by Pulse 100 Oximetry 09/18/16 09/18/16 09/18/16 07:56 08:00 08:07 Temperature Pulse Rate 82 112 H Pulse Rate [ 82 76 Anterior Bilateral Throughout] Pulse Rate [ 76 From Monitor] Respiratory 27 H 29 H Rate Respiratory 27 H 29 H Rate [Anterior Bilateral Throughout] Blood Pressure 130/67 133/67 O2 Sat by Pulse 100 100 Oximetry 09/18/16 09/18/16 09/18/16 09:00 10:00 10:12 Temperature Pulse Rate 62 80 71 Pulse Rate [ Anterior Bilateral Throughout] Pulse Rate [ From Monitor] Respiratory 21 24 Rate Respiratory Rate [Anterior Bilateral Throughout] Blood Pressure 119/45 122/47 122/47 O2 Sat by Pulse 97 98 Oximetry 09/18/16 09/18/16 09/18/16 11:00 11:30 12:00 Temperature 98.8 F Pulse Rate 81 61 61 Pulse Rate [ Anterior Bilateral Throughout] Pulse Rate [ From Monitor] Respiratory 22 24 22 Rate Respiratory Rate [Anterior Bilateral Throughout] Blood Pressure 113/71 113/71 121/52 O2 Sat by Pulse 100 100 100 Oximetry - Neck no masses, trachea midline - Abdomen soft (morbid obesity) - Labs 09/17/16 05:00 09/18/16 06:30 Diabetes panel 09/18/16 Range/Units 06:30 Sodium 148 H (137-145) mmol/L Potassium 3.8 (3.6-5.0) mmol/L Chloride 110.7 H (98-107) mmol/L Carbon Dioxide 26 (22-30) mmol/L BUN 30 H (7-17) mg/dL Creatinine 0.4 L (0.7-1.2) mg/dL Glucose 249 H (65-100) mg/dL Calcium 7.4 L (8.4-10.2) mg/dL Calcium panel 09/18/16 Range/Units 06:30 Calcium 7.4 L (8.4-10.2) mg/dL Pituitary panel 09/18/16 Range/Units 06:30 Sodium 148 H (137-145) mmol/L Potassium 3.8 (3.6-5.0) mmol/L Chloride 110.7 H (98-107) mmol/L Carbon Dioxide 26 (22-30) mmol/L BUN 30 H (7-17) mg/dL Creatinine 0.4 L (0.7-1.2) mg/dL Glucose 249 H (65-100) mg/dL Calcium 7.4 L (8.4-10.2) mg/dL Adrenal panel 09/18/16 Range/Units 06:30 Sodium 148 H (137-145) mmol/L Potassium 3.8 (3.6-5.0) mmol/L Chloride 110.7 H (98-107) mmol/L Carbon Dioxide 26 (22-30) mmol/L BUN 30 H (7-17) mg/dL Creatinine 0.4 L (0.7-1.2) mg/dL Glucose 249 H (65-100) mg/dL Calcium 7.4 L (8.4-10.2) mg/dL
--- NOTE | 2016-09-18 14:18 | Progress Note ---
Assessment and Plan Assessment and plan: Patient is a 61-year-old morbid obese woman with a history of congestive heart failure, severe protein calorie malnutrition (bilateral spiritism muscle severe wasting, hypothenar muscle wasting) with BMI of 81.6, functional quadriplegia, type 2 diabetes mellitus, hypertension, multiple skin breakdown between legs and thighs who presented to the hospital via EMS with AMS. 2D echocardiogram with ejection fraction of 50-55%. During the past admission, patient was recommended for placement but refused. On presentation to ED, patient was felt to be unable to maintain her airways and intubated the ER since 08/29/16. 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, poa: supportative care -Acute on chronic diastolic congestive heart failure: treated with diuresis -Acute on chronic respiratory failure, intubated > 96 hours -Septic shock off IV solucorticef and midodrine -Severe anemia s/p blood transfusion: monitor cbc closely altered -Paroxysmal atrial fibrillation -Non-ST elevated DC type 2: Conservative management -Acute on chronic kidney disease III, likely secondary to vasomotor nephropathy- POA -Transaminitis-elevated alkaline phosphatase and AST: continue to monitor -Severe protein calorie malnutrition albumin 1.2 -Morbid obesity BMI 81.6 -Mulitple PRESSURE ULCERS-POA: consulted wound care -uncontrolled dm: increased ssi -Acute anemia with drop in HCT resolved, received 5 units of PRBC transfused -Levaphed still off -Unable to get CT head due to weight issues -Dvt prophylaxis: sq lovenox per [facility] Disposition: LTAC once accepted 09/04/16 , boyfriend, Tad agreed to blood transfusion, hgb is 6.0 will transfuse 2 units==>h/h steady, continue to monitor 09/05/16: Overnight was very eventful. New issue: Status epilepticus most likely due to anoxic brain injury, poa. She is back on 8 mcg of Levophed, which had weaned off up to the point of seizure activity Patient had status epilepticus before receiving blood transfusions. She was given multiple doses of Ativan and was still having breakthrough seizures. She was given phenobarbital and Dilantin but still having seizures. I started propofol drip which is helping. She still on IV Ativan drip also. Difficult family dynamics: Her son (she has multiple children), Srikanth and sister Leanne were at her bedside and well as her boyfriend who is not her legal , which he told me. They are upset because they didn't know patient was in the hospital. It appears the gentleman in the room is her boyfriend and not her legal He also did not notify the family the patient was here. That gentleman who is her boyfriend dropped the patient's wallet and our security called the number inside the wallet which was patient's mother's number and this is how the family found out that patient was in the hospital. I was told by RN, that patient has no , patient has 7 siblings and they are estranged from mother. No legal POA but sister Leanne is active in sister's life. Her boyfriend name is Tad Vieyra and he has consistently been at her beside, holding her hand and being supportive. 09/10/16 (resumed care): Trying to get to LTAC, still on 2 mcg of Levaphed but not sedated==>?Significant anoxic brain injury most likely poa, Ethic committee consulted because some family members want to withdraw. 09/11/16, Trach aspirated GNR, continue abx pending identification, off levaphed today. Trying to get to LTAC, they can trach her there. Only [facility] takes her insurance 09/12/16 Trach aspirate still pending, new issue of hypothermia, responded to [facility], tube feeding low rate due to high residuals, abd xray unremarkable. Potassium replaced. No restraints needs, no sedation needed, poor prognosis 09/15/16(resumed care): new issue seizure, gave 1mg iv ativan x 1. Awaiting to go to [facility] 09/16-11/26: cpm, no new seizures. 09/18/16: [facility] did not accept patient, so trach and peg here. Patient has been intubated since 08/29/16. History Interval history: Patient seen and examined. Follow up on respiratory failure. Patient still intubated. Overnight uneventful. Hospitalist Physical - Physical exam Narrative exam: GEN: Critically ill, morbid obese BMI 81.6, intubated HEENT: Pupils are pinpoint and reactive, ET tube in place NECK: SUPPLE, NO THYROMEGALY, NO JVD, NO LAD CVS: regular irregular NORMAL S1S2 LUNGS/CHEST: TA B, NORMAL CHEST EXPANSION B, GOOD AIR ENTRY B ABD: SOFT, NONDISTENDED GBS, NO REBOUND OR GUARDING MSK: Spontaneous movement of extremities NEURO: CN 2-12 GROSSLY INTACT, doesn't follow commands PSY: Confused - Constitutional Vitals: Temp Pulse Resp BP Pulse Ox 98.8 F 61 22 121/52 100 09/18/16 12:00 09/18/16 12:00 09/18/16 12:00 09/18/16 12:00 09/18/16 12:00 General appearance: Present: other (morbidly obese) Results - Labs CBC & Chem 7: 09/17/16 05:00 09/18/16 06:30 Labs: Laboratory Last Values WBC 9.2 K/mm3 (4.5-11.0) 09/17/16 05:00 RBC 2.77 M/mm3 (3.65-5.03) L 09/17/16 05:00 Hgb 8.2 gm/dl (10.1-14.3) L 09/17/16 05:00 Hct 25.9 % (30.3-42.9) L 09/17/16 05:00 MCV 94 fl (79-97) 09/17/16 05:00 MCH 30 pg (28-32) 09/17/16 05:00 MCHC 32 % (30-34) 09/17/16 05:00 RDW 19.1 % (13.2-15.2) H 09/17/16 05:00 Plt Count 209 K/mm3 (140-440) 09/17/16 05:00 Lymph % (Auto) 15.6 % (13.4-35.0) 08/30/16 10:30 [place] % (Auto) 5.1 % (0.0-7.3) 08/30/16 10:30 Eos % (Auto) 0.6 % (0.0-4.3) 08/30/16 10:30 Baso % (Auto) 0.1 % (0.0-1.8) 08/30/16 10:30 Lymph # 1.7 K/mm3 (1.2-5.4) 08/30/16 10:30 [place] # 0.6 K/mm3 (0.0-0.8) 08/30/16 10:30 Eos # 0.1 K/mm3 (0.0-0.4) 08/30/16 10:30 Baso # 0.0 K/mm3 (0.0-0.1) 08/30/16 10:30 Add Manual Diff Complete 09/02/16 05:00 Total Counted 100 09/02/16 05:00 Seg Neutrophils % 78.6 % (40.0-70.0) H 08/30/16 10:30 Seg Neuts % (Manual) 72.0 % (40.0-70.0) H 09/02/16 05:00 Band Neutrophils % 9.0 % 09/02/16 05:00 Lymphocytes % (Manual) 15.0 % (13.4-35.0) 09/02/16 05:00 Reactive Lymphs % (Man) 0 % 09/02/16 05:00 Monocytes % (Manual) 4.0 % (0.0-7.3) 09/02/16 05:00 Eosinophils % (Manual) 0 % (0.0-4.3) 09/02/16 05:00 Basophils % (Manual) 0 % (0.0-1.8) 09/02/16 05:00 Metamyelocytes % 0 % 09/02/16 05:00 Myelocytes % 0 % 09/02/16 05:00 Promyelocytes % 0 % 09/02/16 05:00 Blast Cells % 0 % 09/02/16 05:00 Nucleated RBC % 25.0 % (0.0-0.9) H 09/02/16 05:00 Seg Neutrophils # 8.7 K/mm3 (1.8-7.7) H 08/30/16 10:30 Seg Neutrophils # Man 8.9 K/mm3 (1.8-7.7) H 09/02/16 05:00 Band Neutrophils # 1.1 K/mm3 09/02/16 05:00 Lymphocytes # (Manual) 1.8 K/mm3 (1.2-5.4) 09/02/16 05:00 Abs React Lymphs (Man) 0.0 K/mm3 09/02/16 05:00 Monocytes # (Manual) 0.5 K/mm3 (0.0-0.8) 09/02/16 05:00 Eosinophils # (Manual) 0.0 K/mm3 (0.0-0.4) 09/02/16 05:00 Basophils # (Manual) 0.0 K/mm3 (0.0-0.1) 09/02/16 05:00 Metamyelocytes # 0.0 K/mm3 09/02/16 05:00 Myelocytes # 0.0 K/mm3 09/02/16 05:00 Promyelocytes # 0.0 K/mm3 09/02/16 05:00 Blast Cells # 0.0 K/mm3 09/02/16 05:00 WBC Morphology Not Reportable 09/02/16 05:00 Hypersegmented Neuts Not Reportable 09/02/16 05:00 Hyposegmented Neuts Not Reportable 09/02/16 05:00 Hypogranular Neuts Not Reportable 09/02/16 05:00 Smudge Cells Not Reportable 09/02/16 05:00 Toxic Granulation Not Reportable 09/02/16 05:00 Toxic Vacuolation Not Reportable 09/02/16 05:00 Dohle Bodies Not Reportable 09/02/16 05:00 Pelger-Huet Anomaly Not Reportable 09/02/16 05:00 Feli Rods Not Reportable 09/02/16 05:00 Platelet Estimate Consistent w auto 09/02/16 05:00 Clumped Platelets Not Reportable 09/02/16 05:00 Plt Clumps, EDTA Not Reportable 09/02/16 05:00 Large Platelets Not Reportable 09/02/16 05:00 Giant Platelets Not Reportable 09/02/16 05:00 Platelet Satelliting Not Reportable 09/02/16 05:00 Plt Morphology Comment Not Reportable 09/02/16 05:00 RBC Morphology Not Reportable 09/02/16 05:00 Dimorphic RBCs Not Reportable 09/02/16 05:00 Polychromasia Rare 09/02/16 05:00 Hypochromasia Not Reportable 09/02/16 05:00 Poikilocytosis Not Reportable 09/02/16 05:00 Anisocytosis 1+ 09/02/16 05:00 Microcytosis Not Reportable 09/02/16 05:00 Macrocytosis 1+ 09/02/16 05:00 Spherocytes Not Reportable 09/02/16 05:00 Pappenheimer Bodies Not Reportable 09/02/16 05:00 Sickle Cells Not Reportable 09/02/16 05:00 Target Cells Not Reportable 09/02/16 05:00 Tear Drop Cells Not Reportable 09/02/16 05:00 Ovalocytes Not Reportable 09/02/16 05:00 Helmet Cells Not Reportable 09/02/16 05:00 Patterson-Harrold Bodies Not Reportable 09/02/16 05:00 [place] Rings Not Reportable 09/02/16 05:00 [place] Cells Not Reportable 09/02/16 05:00 Bite Cells Not Reportable 09/02/16 05:00 Crenated Cell Not Reportable 09/02/16 05:00 Elliptocytes Not Reportable 09/02/16 05:00 Acanthocytes (Spur) Not Reportable 09/02/16 05:00 Rouleaux Not Reportable 09/02/16 05:00 Hemoglobin C Crystals Not Reportable 09/02/16 05:00 Schistocytes Not Reportable 09/02/16 05:00 Malaria parasites Not Reportable 09/02/16 05:00 Manny Bodies Not Reportable 09/02/16 05:00 Hem Pathologist Commnt No 09/02/16 05:00 PT 13.8 Sec. (12.2-14.9) 09/10/16 05:10 INR 1.07 (0.87-1.13) 09/10/16 05:10 APTT 29.5 Sec. (24.2-36.6) 08/29/16 17:40 POC ABG pH 7.454 (7.35-7.45) H 09/09/16 12:33 POC ABG pCO2 38.4 (35-45) 09/09/16 12:33 POC ABG pO2 75 (80-105) L 09/09/16 12:33 POC ABG HCO3 27.0 09/09/16 12:33 POC ABG Total CO2 28 09/09/16 12:33 POC ABG O2 Sat 96 09/09/16 12:33 POC ABG Base Excess 3 09/09/16 12:33 VBG pH 7.366 (7.320-7.420) 08/29/16 17:40 FiO2 30 % 09/09/16 12:33 Sodium 148 mmol/L (137-145) H 09/18/16 06:30 Potassium 3.8 mmol/L (3.6-5.0) 09/18/16 06:30 Chloride 110.7 mmol/L (98-107) H 09/18/16 06:30 Carbon Dioxide 26 mmol/L (22-30) 09/18/16 06:30 Anion Gap 15 mmol/L 09/18/16 06:30 BUN 30 mg/dL (7-17) H 09/18/16 06:30 Creatinine 0.4 mg/dL (0.7-1.2) L 09/18/16 06:30 Estimated GFR > 60 ml/min 09/18/16 06:30 BUN/Creatinine Ratio 75.00 % 09/18/16 06:30 Glucose 249 mg/dL (65-100) H 09/18/16 06:30 POC Glucose 282 (70-105) H 09/18/16 06:29 Lactic Acid 1.90 mmol/L (0.7-2.0) 09/07/16 15:00 Calcium 7.4 mg/dL (8.4-10.2) L 09/18/16 06:30 Phosphorus 3.60 mg/dL (2.5-4.5) 08/29/16 21:59 Magnesium 1.60 mg/dL (1.7-2.3) L 09/18/16 06:30 Total Bilirubin 0.70 mg/dL (0.1-1.2) 09/11/16 05:00 AST 167 units/L (5-40) H 09/11/16 05:00 ALT 145 units/L (7-56) H 09/11/16 05:00 Alkaline Phosphatase 631 units/L (35-129) H 09/11/16 05:00 Ammonia 39.0 umol/L (25-60) 09/07/16 15:00 Total Creatine Kinase 36 units/L (30-135) 09/06/16 11:07 CK-MB (CK-2) < 1.0 ng/mL (0.0-4.0) 09/06/16 11:07 CK-MB (CK-2) Rel Index 2.7 (0-4) 09/06/16 11:07 Troponin T 0.080 ng/mL (0.00-0.029) H 09/06/16 11:07 C-Reactive Protein 10.20 mg/dL (0.00-1.30) H 08/30/16 22:20 NT-Pro-B Natriuret Pep 1712 pg/mL (0-900) H 08/29/16 17:40 Total Protein 5.1 g/dL (6.3-8.2) L 09/11/16 05:00 Albumin 1.6 g/dL (3.9-5) L 09/11/16 05:00 Albumin/Globulin Ratio 0.5 % 09/11/16 05:00 Prealbumin 0.120 g/L (0.200-0.400) L 08/29/16 21:59 Triglycerides 225 mg/dL (2-149) H 08/29/16 17:40 Cholesterol 130 mg/dL (50-199) 08/29/16 17:40 LDL Cholesterol Direct 82 mg/dL (50-130) 08/29/16 17:40 HDL Cholesterol 3 mg/dL (40-59) L 08/29/16 17:40 Cholesterol/HDL Ratio 43.33 % 08/29/16 17:40 TSH 5.220 mlU/mL (0.270-4.200) H 09/09/16 18:10 Urine Color Yellow (Yellow) 08/31/16 15:37 Urine Turbidity Clear (Clear) 08/31/16 15:37 Urine pH 5.0 (5.0-7.0) 08/31/16 15:37 Ur Specific [place] 1.009 (1.003-1.030) 08/31/16 15:37 Urine Protein <15 mg/dl mg/dL (Negative) 08/31/16 15:37 Urine Glucose (UA) Neg mg/dL (Negative) 08/31/16 15:37 Urine Ketones Neg mg/dL (Negative) 08/31/16 15:37 Urine Blood Sm (Negative) 08/31/16 15:37 Urine Nitrite Neg (Negative) 08/31/16 15:37 Urine Bilirubin Neg (Negative) 08/31/16 15:37 Urine Urobilinogen < 2.0 mg/dL (<2.0) 08/31/16 15:37 Ur Leukocyte Esterase Sm (Negative) 08/31/16 15:37 Urine WBC (Auto) 3.0 /HPF (0.0-6.0) 08/31/16 15:37 Urine RBC (Auto) 1.0 /HPF (0.0-6.0) 08/31/16 15:37 U Epithel Cells (Auto) < 1.0 /HPF (0-13.0) 08/31/16 15:37 Urine Bacteria (Auto) 1+ /HPF (Negative) 08/31/16 15:37 Hyaline Casts 5 /LPF 08/31/16 15:37 Urine Mucus Few /HPF 08/31/16 15:37 Blood Type O POSITIVE 09/08/16 11:00 Antibody Screen TNR 09/08/16 11:00 PATRICK Antibody Screen Negative 09/08/16 11:00 Crossmatch See Detail 09/08/16 11:00
[2016-09-18] MEDS: LEVEMIR SUB-Q SCH (22:44)
[2016-09-19] MEDS: REGLAN IV SCH ×4 (00:37→20:07)
[2016-09-19] MEDS: NOVOLOG SUB-Q SCH ×4 (00:37→17:24)
[2016-09-19] MEDS: DUONEB 0.5 MG-3 MG/3 ML SOLN IH SCH ×4 (02:00→19:30)
[2016-09-19] MEDS: LOPRESSOR PO SCH ×4 (04:44→23:41)
[2016-09-19 05:45] LABS: Anion Gap 13 mmol/L; Blood Urea Nitrogen 34 mg/dL (7-17); Calcium 7.3 mg/dL (8.4-10.2); Carbon Dioxide 26 mmol/L (22-30); Chloride 110.8 mmol/L (98-107); Glucose 278 mg/dL (65-100); Potassium 3.9 mmol/L (3.6-5.0); Sodium 146 mmol/L (137-145)
[2016-09-19] MEDS: PROAMATINE PO SCH ×3 (06:11→23:39)
--- NOTE | 2016-09-19 07:40 | Progress Note ---
Assessment and Plan - Patient Problems (1) RORY (acute kidney injury) Current Visit: No Status: Acute Plan to address problem: Acute Kidney Injury is hemodynamically mediated in the setting of hypotension / shock. Renal function has improved and stable. Follow renal function. (2) Hypokalemia Current Visit: Yes Status: Acute Plan to address problem: Monitor K levels and replete as needed. Hypernatremia: Improving on water flushes. (3) Shock Current Visit: Yes Status: Acute Plan to address problem: S/p Levophed. (4) Respiratory failure Current Visit: Yes Status: Acute Qualifiers: Chronicity: C Respiratory failure complication: R Plan to address problem: On vent. (5) Altered mental status Current Visit: Yes Status: Acute Qualifiers: Altered mental status type: unspecified Coma depth: C Coma timing: C Qualified Code(s): R41.82 - Altered mental status, unspecified (6) Anemia Current Visit: Yes Status: Acute Qualifiers: Anemia type: unspecified type Iron deficiency anemia type: I Vitamin B12 deficiency anemia type: V Folate deficiency anemia type: F Bone marrow failure anemia type: B Hemolytic anemia type: H Other causes of anemia: O Chronic kidney disease stage: C Qualified Code(s): D64.9 - Anemia, unspecified Subjective Date of service: 09/19/16 Principal diagnosis: Acute Hypoxemic Hypercapnic Resp Failure; Severe Sepsis Interval history: Patient remain on the vent. Objective - Vital Signs Vital signs: Vital Signs - 12hr 09/18/16 09/18/16 09/18/16 20:00 20:05 20:07 Temperature 99.9 F H Pulse Rate 83 84 76 Pulse Rate [ Anterior Bilateral Throughout] Pulse Rate [ 83 From Monitor] Respiratory 23 23 Rate Respiratory Rate [Anterior Bilateral Throughout] Blood Pressure 109/49 109/49 O2 Sat by Pulse 100 100 Oximetry 09/18/16 09/18/16 09/18/16 20:15 20:25 21:00 Temperature Pulse Rate 83 Pulse Rate [ 84 82 Anterior Bilateral Throughout] Pulse Rate [ From Monitor] Respiratory 25 H Rate Respiratory 23 24 Rate [Anterior Bilateral Throughout] Blood Pressure 120/45 O2 Sat by Pulse 100 Oximetry 09/18/16 09/18/16 09/18/16 22:00 22:43 23:00 Temperature Pulse Rate 87 107 H 68 Pulse Rate [ Anterior Bilateral Throughout] Pulse Rate [ From Monitor] Respiratory 25 H 23 Rate Respiratory Rate [Anterior Bilateral Throughout] Blood Pressure 126/48 126/48 99/31 O2 Sat by Pulse 100 100 Oximetry 09/18/16 09/19/16 09/19/16 23:37 00:00 00:01 Temperature Pulse Rate 72 73 Pulse Rate [ Anterior Bilateral Throughout] Pulse Rate [ 73 From Monitor] Respiratory 21 21 Rate Respiratory Rate [Anterior Bilateral Throughout] Blood Pressure 111/46 112/35 O2 Sat by Pulse 100 100 100 Oximetry 09/19/16 09/19/16 09/19/16 00:32 01:01 02:00 Temperature 98.9 F Pulse Rate 63 81 Pulse Rate [ 76 Anterior Bilateral Throughout] Pulse Rate [ From Monitor] Respiratory 23 24 Rate Respiratory 24 Rate [Anterior Bilateral Throughout] Blood Pressure 120/38 118/44 O2 Sat by Pulse 99 99 Oximetry 09/19/16 09/19/16 09/19/16 03:01 03:30 03:56 Temperature 99.3 F Pulse Rate 108 H 58 L Pulse Rate [ Anterior Bilateral Throughout] Pulse Rate [ From Monitor] Respiratory 20 Rate Respiratory Rate [Anterior Bilateral Throughout] Blood Pressure 118/44 128/38 O2 Sat by Pulse 99 100 Oximetry 09/19/16 09/19/16 09/19/16 04:00 04:44 05:00 Temperature Pulse Rate 68 45 L 64 Pulse Rate [ Anterior Bilateral Throughout] Pulse Rate [ 68 From Monitor] Respiratory 22 21 Rate Respiratory Rate [Anterior Bilateral Throughout] Blood Pressure 94/41 111/45 114/42 O2 Sat by Pulse 100 99 Oximetry 09/19/16 09/19/16 06:01 07:33 Temperature Pulse Rate 72 46 L Pulse Rate [ Anterior Bilateral Throughout] Pulse Rate [ From Monitor] Respiratory 21 Rate Respiratory Rate [Anterior Bilateral Throughout] Blood Pressure 114/42 109/39 O2 Sat by Pulse 98 100 Oximetry - General Appearance General appearance: well-developed, well-nourished, appears stated age, obese, intubated (FiO2 30%) EENT: ATNC Neck: supple Respiratory: Present: Other (coarse breath sounds) Cardiology: irregular, S1S2 Gastrointestinal: normoactive bowel sounds, obese Integumentary: no rash Neurologic: obtunded Musculoskeletal: other (2+ edema of both LEs noted) - Lab 09/17/16 05:00 09/19/16 04:45 Most recent lab results Calcium 7.3 mg/dL (8.4-10.2) L 09/19/16 04:45 Phosphorus 3.60 mg/dL (2.5-4.5) 08/29/16 21:59 Magnesium 1.60 mg/dL (1.7-2.3) L 09/18/16 06:30
[2016-09-19] MEDS: POTASSIUM CHLORIDE FEEDTUBE SCH (09:25)
[2016-09-19] MEDS: FERROUS SULFATE PO SCH (09:25)
[2016-09-19] MEDS: LASIX IV SCH (09:25)
[2016-09-19] MEDS: LOVENOX SUB-Q SCH (09:25)
[2016-09-19] MEDS: FOLVITE PO SCH (09:25)
[2016-09-19] MEDS: KEPPRA PO SCH ×2 (09:25→23:39)
[2016-09-19] MEDS: SYNTHROID IV SCH (09:26)
[2016-09-19] MEDS: PROTONIX PO SCH (09:27)
--- NOTE | 2016-09-19 12:02 | Progress Note ---
Assessment and Plan Assessment and plan: Patient is a 61-year-old morbid obese woman with a history of congestive heart failure, severe protein calorie malnutrition (bilateral scientology muscle severe wasting, hypothenar muscle wasting) with BMI of 81.6, functional quadriplegia, type 2 diabetes mellitus, hypertension, multiple skin breakdown between legs and thighs who presented to the hospital via EMS with AMS. 2D echocardiogram with ejection fraction of 50-55%. During the past admission, patient was recommended for placement but refused. On presentation to ED, patient was felt to be unable to maintain her airways and intubated the ER since 08/29/16. 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, poa: supportative care -Acute on chronic diastolic congestive heart failure: treated with diuresis -Acute on chronic respiratory failure, intubated > 96 hours -Septic shock off IV solucorticef and midodrine -Severe anemia s/p blood transfusion: monitor cbc closely altered -Paroxysmal atrial fibrillation -Non-ST elevated OH type 2: Conservative management -Acute on chronic kidney disease III, likely secondary to vasomotor nephropathy- POA -Transaminitis-elevated alkaline phosphatase and AST: continue to monitor -Severe protein calorie malnutrition albumin 1.2 -Morbid obesity BMI 81.6 -Mulitple PRESSURE ULCERS-POA: consulted wound care -uncontrolled dm: increased ssi -Acute anemia with drop in HCT resolved, received 5 units of PRBC transfused -Levaphed still off -Unable to get CT head due to weight issues -Dvt prophylaxis: sq lovenox per [facility] Disposition: LTAC once accepted 09/04/16 , boyfriend, Tad agreed to blood transfusion, hgb is 6.0 will transfuse 2 units==>h/h steady, continue to monitor 09/05/16: Overnight was very eventful. New issue: Status epilepticus most likely due to anoxic brain injury, poa. She is back on 8 mcg of Levophed, which had weaned off up to the point of seizure activity Patient had status epilepticus before receiving blood transfusions. She was given multiple doses of Ativan and was still having breakthrough seizures. She was given phenobarbital and Dilantin but still having seizures. I started propofol drip which is helping. She still on IV Ativan drip also. Difficult family dynamics: Her son (she has multiple children), Srikanth and sister Leanne were at her bedside and well as her boyfriend who is not her legal , which he told me. They are upset because they didn't know patient was in the hospital. It appears the gentleman in the room is her boyfriend and not her legal He also did not notify the family the patient was here. That gentleman who is her boyfriend dropped the patient's wallet and our security called the number inside the wallet which was patient's mother's number and this is how the family found out that patient was in the hospital. I was told by RN, that patient has no , patient has 7 siblings and they are estranged from mother. No legal POA but sister Leanne is active in sister's life. Her boyfriend name is Tad Vieyra and he has consistently been at her beside, holding her hand and being supportive. 09/10/16 (resumed care): Trying to get to LTAC, still on 2 mcg of Levaphed but not sedated==>?Significant anoxic brain injury most likely poa, Ethic committee consulted because some family members want to withdraw. 09/11/16, Trach aspirated GNR, continue abx pending identification, off levaphed today. Trying to get to LTAC, they can trach her there. Only [facility] takes her insurance 09/12/16 Trach aspirate still pending, new issue of hypothermia, responded to [facility], tube feeding low rate due to high residuals, abd xray unremarkable. Potassium replaced. No restraints needs, no sedation needed, poor prognosis 09/15/16(resumed care): new issue seizure, gave 1mg iv ativan x 1. Awaiting to go to [facility] 09/16-11/26: cpm, no new seizures. 09/18-01/26: [facility] did not accept patient, so trach and peg here. Patient has been intubated since 08/29/16. History Interval history: Patient seen and examined. Follow up on respiratory failure. Patient still intubated. Overnight uneventful. Hospitalist Physical - Physical exam Narrative exam: GEN: Critically ill, morbid obese BMI 81.6, intubated HEENT: Pupils are pinpoint and reactive, ET tube in place NECK: SUPPLE, NO THYROMEGALY, NO JVD, NO LAD CVS: regular irregular NORMAL S1S2 LUNGS/CHEST: TA B, NORMAL CHEST EXPANSION B, GOOD AIR ENTRY B ABD: SOFT, NONDISTENDED GBS, NO REBOUND OR GUARDING MSK: Spontaneous movement of extremities NEURO: CN 2-12 GROSSLY INTACT, doesn't follow commands PSY: Confused - Constitutional Vitals: Temp Pulse Resp BP Pulse Ox 99.3 F 49 L 25 H 116/42 100 09/19/16 08:00 09/19/16 11:34 09/19/16 11:01 09/19/16 11:34 09/19/16 11:34 General appearance: Present: other (morbidly obese) Results - Labs CBC & Chem 7: 09/17/16 05:00 09/19/16 04:45 Labs: Laboratory Last Values WBC 9.2 K/mm3 (4.5-11.0) 09/17/16 05:00 RBC 2.77 M/mm3 (3.65-5.03) L 09/17/16 05:00 Hgb 8.2 gm/dl (10.1-14.3) L 09/17/16 05:00 Hct 25.9 % (30.3-42.9) L 09/17/16 05:00 MCV 94 fl (79-97) 09/17/16 05:00 MCH 30 pg (28-32) 09/17/16 05:00 MCHC 32 % (30-34) 09/17/16 05:00 RDW 19.1 % (13.2-15.2) H 09/17/16 05:00 Plt Count 209 K/mm3 (140-440) 09/17/16 05:00 Lymph % (Auto) 15.6 % (13.4-35.0) 08/30/16 10:30 [place] % (Auto) 5.1 % (0.0-7.3) 08/30/16 10:30 Eos % (Auto) 0.6 % (0.0-4.3) 08/30/16 10:30 Baso % (Auto) 0.1 % (0.0-1.8) 08/30/16 10:30 Lymph # 1.7 K/mm3 (1.2-5.4) 08/30/16 10:30 [place] # 0.6 K/mm3 (0.0-0.8) 08/30/16 10:30 Eos # 0.1 K/mm3 (0.0-0.4) 08/30/16 10:30 Baso # 0.0 K/mm3 (0.0-0.1) 08/30/16 10:30 Add Manual Diff Complete 09/02/16 05:00 Total Counted 100 09/02/16 05:00 Seg Neutrophils % 78.6 % (40.0-70.0) H 08/30/16 10:30 Seg Neuts % (Manual) 72.0 % (40.0-70.0) H 09/02/16 05:00 Band Neutrophils % 9.0 % 09/02/16 05:00 Lymphocytes % (Manual) 15.0 % (13.4-35.0) 09/02/16 05:00 Reactive Lymphs % (Man) 0 % 09/02/16 05:00 Monocytes % (Manual) 4.0 % (0.0-7.3) 09/02/16 05:00 Eosinophils % (Manual) 0 % (0.0-4.3) 09/02/16 05:00 Basophils % (Manual) 0 % (0.0-1.8) 09/02/16 05:00 Metamyelocytes % 0 % 09/02/16 05:00 Myelocytes % 0 % 09/02/16 05:00 Promyelocytes % 0 % 09/02/16 05:00 Blast Cells % 0 % 09/02/16 05:00 Nucleated RBC % 25.0 % (0.0-0.9) H 09/02/16 05:00 Seg Neutrophils # 8.7 K/mm3 (1.8-7.7) H 08/30/16 10:30 Seg Neutrophils # Man 8.9 K/mm3 (1.8-7.7) H 09/02/16 05:00 Band Neutrophils # 1.1 K/mm3 09/02/16 05:00 Lymphocytes # (Manual) 1.8 K/mm3 (1.2-5.4) 09/02/16 05:00 Abs React Lymphs (Man) 0.0 K/mm3 09/02/16 05:00 Monocytes # (Manual) 0.5 K/mm3 (0.0-0.8) 09/02/16 05:00 Eosinophils # (Manual) 0.0 K/mm3 (0.0-0.4) 09/02/16 05:00 Basophils # (Manual) 0.0 K/mm3 (0.0-0.1) 09/02/16 05:00 Metamyelocytes # 0.0 K/mm3 09/02/16 05:00 Myelocytes # 0.0 K/mm3 09/02/16 05:00 Promyelocytes # 0.0 K/mm3 09/02/16 05:00 Blast Cells # 0.0 K/mm3 09/02/16 05:00 WBC Morphology Not Reportable 09/02/16 05:00 Hypersegmented Neuts Not Reportable 09/02/16 05:00 Hyposegmented Neuts Not Reportable 09/02/16 05:00 Hypogranular Neuts Not Reportable 09/02/16 05:00 Smudge Cells Not Reportable 09/02/16 05:00 Toxic Granulation Not Reportable 09/02/16 05:00 Toxic Vacuolation Not Reportable 09/02/16 05:00 Dohle Bodies Not Reportable 09/02/16 05:00 Pelger-Huet Anomaly Not Reportable 09/02/16 05:00 Feli Rods Not Reportable 09/02/16 05:00 Platelet Estimate Consistent w auto 09/02/16 05:00 Clumped Platelets Not Reportable 09/02/16 05:00 Plt Clumps, EDTA Not Reportable 09/02/16 05:00 Large Platelets Not Reportable 09/02/16 05:00 Giant Platelets Not Reportable 09/02/16 05:00 Platelet Satelliting Not Reportable 09/02/16 05:00 Plt Morphology Comment Not Reportable 09/02/16 05:00 RBC Morphology Not Reportable 09/02/16 05:00 Dimorphic RBCs Not Reportable 09/02/16 05:00 Polychromasia Rare 09/02/16 05:00 Hypochromasia Not Reportable 09/02/16 05:00 Poikilocytosis Not Reportable 09/02/16 05:00 Anisocytosis 1+ 09/02/16 05:00 Microcytosis Not Reportable 09/02/16 05:00 Macrocytosis 1+ 09/02/16 05:00 Spherocytes Not Reportable 09/02/16 05:00 Pappenheimer Bodies Not Reportable 09/02/16 05:00 Sickle Cells Not Reportable 09/02/16 05:00 Target Cells Not Reportable 09/02/16 05:00 Tear Drop Cells Not Reportable 09/02/16 05:00 Ovalocytes Not Reportable 09/02/16 05:00 Helmet Cells Not Reportable 09/02/16 05:00 [place] Bodies Not Reportable 09/02/16 05:00 [place] Rings Not Reportable 09/02/16 05:00 [place] Cells Not Reportable 09/02/16 05:00 Bite Cells Not Reportable 09/02/16 05:00 Crenated Cell Not Reportable 09/02/16 05:00 Elliptocytes Not Reportable 09/02/16 05:00 Acanthocytes (Spur) Not Reportable 09/02/16 05:00 Rouleaux Not Reportable 09/02/16 05:00 Hemoglobin C Crystals Not Reportable 09/02/16 05:00 Schistocytes Not Reportable 09/02/16 05:00 Malaria parasites Not Reportable 09/02/16 05:00 Manny Bodies Not Reportable 09/02/16 05:00 Hem Pathologist Commnt No 09/02/16 05:00 PT 13.8 Sec. (12.2-14.9) 09/10/16 05:10 INR 1.07 (0.87-1.13) 09/10/16 05:10 APTT 29.5 Sec. (24.2-36.6) 08/29/16 17:40 POC ABG pH 7.454 (7.35-7.45) H 09/09/16 12:33 POC ABG pCO2 38.4 (35-45) 09/09/16 12:33 POC ABG pO2 75 (80-105) L 09/09/16 12:33 POC ABG HCO3 27.0 09/09/16 12:33 POC ABG Total CO2 28 09/09/16 12:33 POC ABG O2 Sat 96 09/09/16 12:33 POC ABG Base Excess 3 09/09/16 12:33 VBG pH 7.366 (7.320-7.420) 08/29/16 17:40 FiO2 30 % 09/09/16 12:33 Sodium 146 mmol/L (137-145) H 09/19/16 04:45 Potassium 3.9 mmol/L (3.6-5.0) 09/19/16 04:45 Chloride 110.8 mmol/L (98-107) H 09/19/16 04:45 Carbon Dioxide 26 mmol/L (22-30) 09/19/16 04:45 Anion Gap 13 mmol/L 09/19/16 04:45 BUN 34 mg/dL (7-17) H 09/19/16 04:45 Creatinine 0.4 mg/dL (0.7-1.2) L 09/19/16 04:45 Estimated GFR > 60 ml/min 09/19/16 04:45 BUN/Creatinine Ratio 85.00 % 09/19/16 04:45 Glucose 278 mg/dL (65-100) H 09/19/16 04:45 POC Glucose 306 (70-105) H 09/19/16 11:12 Lactic Acid 1.90 mmol/L (0.7-2.0) 09/07/16 15:00 Calcium 7.3 mg/dL (8.4-10.2) L 09/19/16 04:45 Phosphorus 3.60 mg/dL (2.5-4.5) 08/29/16 21:59 Magnesium 1.60 mg/dL (1.7-2.3) L 09/18/16 06:30 Total Bilirubin 0.70 mg/dL (0.1-1.2) 09/11/16 05:00 AST 167 units/L (5-40) H 09/11/16 05:00 ALT 145 units/L (7-56) H 09/11/16 05:00 Alkaline Phosphatase 631 units/L (35-129) H 09/11/16 05:00 Ammonia 39.0 umol/L (25-60) 09/07/16 15:00 Total Creatine Kinase 36 units/L (30-135) 09/06/16 11:07 CK-MB (CK-2) < 1.0 ng/mL (0.0-4.0) 09/06/16 11:07 CK-MB (CK-2) Rel Index 2.7 (0-4) 09/06/16 11:07 Troponin T 0.080 ng/mL (0.00-0.029) H 09/06/16 11:07 C-Reactive Protein 10.20 mg/dL (0.00-1.30) H 08/30/16 22:20 NT-Pro-B Natriuret Pep 1712 pg/mL (0-900) H 08/29/16 17:40 Total Protein 5.1 g/dL (6.3-8.2) L 09/11/16 05:00 Albumin 1.6 g/dL (3.9-5) L 09/11/16 05:00 Albumin/Globulin Ratio 0.5 % 09/11/16 05:00 Prealbumin 0.120 g/L (0.200-0.400) L 08/29/16 21:59 Triglycerides 225 mg/dL (2-149) H 08/29/16 17:40 Cholesterol 130 mg/dL (50-199) 08/29/16 17:40 LDL Cholesterol Direct 82 mg/dL (50-130) 08/29/16 17:40 HDL Cholesterol 3 mg/dL (40-59) L 08/29/16 17:40 Cholesterol/HDL Ratio 43.33 % 08/29/16 17:40 TSH 5.220 mlU/mL (0.270-4.200) H 09/09/16 18:10 Urine Color Yellow (Yellow) 08/31/16 15:37 Urine Turbidity Clear (Clear) 08/31/16 15:37 Urine pH 5.0 (5.0-7.0) 08/31/16 15:37 Ur Specific [place] 1.009 (1.003-1.030) 08/31/16 15:37 Urine Protein <15 mg/dl mg/dL (Negative) 08/31/16 15:37 Urine Glucose (UA) Neg mg/dL (Negative) 08/31/16 15:37 Urine Ketones Neg mg/dL (Negative) 08/31/16 15:37 Urine Blood Sm (Negative) 08/31/16 15:37 Urine Nitrite Neg (Negative) 08/31/16 15:37 Urine Bilirubin Neg (Negative) 08/31/16 15:37 Urine Urobilinogen < 2.0 mg/dL (<2.0) 08/31/16 15:37 Ur Leukocyte Esterase Sm (Negative) 08/31/16 15:37 Urine WBC (Auto) 3.0 /HPF (0.0-6.0) 08/31/16 15:37 Urine RBC (Auto) 1.0 /HPF (0.0-6.0) 08/31/16 15:37 U Epithel Cells (Auto) < 1.0 /HPF (0-13.0) 08/31/16 15:37 Urine Bacteria (Auto) 1+ /HPF (Negative) 08/31/16 15:37 Hyaline Casts 5 /LPF 08/31/16 15:37 Urine Mucus Few /HPF 08/31/16 15:37 Blood Type O POSITIVE 09/08/16 11:00 Antibody Screen TNR 09/08/16 11:00 PATRICK Antibody Screen Negative 09/08/16 11:00 Crossmatch See Detail 09/08/16 11:00
--- NOTE | 2016-09-19 13:55 | Progress Note ---
Assessment and Plan (1) Respiratory failure Current Visit: Yes Status: Acute Qualifiers: Chronicity: C Respiratory failure complication: R Plan to address problem: - continue daytime PSV trials as tolerated - VAP bundle addressed - continue to Wean FIO2 for O2 sats>92% - continue VTE prophylaxis (SCD's re: thrombocytopenia) - continue Stress ulcer prophylaxis (Pantoprazole) - continuing sedation vacations while watching for any obvious seizure activity - continue Lung protective strategies - continue gentle diuresis now with better BP's and stopped IVF - awaiting tracheostomy (2) Shock Current Visit: Yes Status: Acute Plan to address problem: - Treated as septic shock secondary to HCAP - off levophed now - continue strict glycemic control - completed AB's course; trending WBC - ID following - tapering off stress steroids now - continue midodrine for now but tapering (3) Acute on chronic diastolic (congestive) heart failure Current Visit: No Status: Acute Plan to address problem: - Documented EF 55% - continue gentle diuresis - Continue to monitoring renal function and electrolyte profile closely - continue to monitor urine output, electrolyte profile (4) Altered mental status Current Visit: Yes Status: Acute Qualifiers: Altered mental status type: unspecified Coma depth: C Coma timing: C Qualified Code(s): R41.82 - Altered mental status, unspecified Plan to address problem: - Neurology following - on keppra - weaned off ativan and will use prn now - TSH elevated and started on low dose levoxyl (5) Morbid obesity Current Visit: Yes Status: Acute Qualifiers: Obesity type: unspecified obesity type Qualified Code(s): E66.01 - Morbid ( severe) obesity due to excess calories - weight loss strategies once more stable - caloric intake per hospital medical biller at this point (6) Anemia Current Visit: Yes Status: Acute Qualifiers: Anemia type: unspecified type Iron deficiency anemia type: I Vitamin B12 deficiency anemia type: V Folate deficiency anemia type: F Bone marrow failure anemia type: B Hemolytic anemia type: H Other causes of anemia: O Qualified Code(s): D64.9 - Anemia, unspecified Plan to address problem: - no more coffee grounds noted - continuing PPI therapy - reglan taper shortly but advance tube feeds to goal for now - advancing tube feeds to goal as tolerated (7) Status epilepticus Current Visit: Yes Status: Acute Plan to address problem: - Continue AEDs - Neurology following - no obvious clinical seizure activity (8) 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 - This could be secondary to an intra-cranial process, however unable to obtain neuro-imaging, patient's weight exceeds allowable maximum (9) Discharge planning issues Current Visit: Yes Status: Acute Plan to address problem: - Continue current care. - need to determine appropriate power of supervisor paper machine / legal healthcare passenger relations representative prior to any tentative withdrawal of care - son came by and signed DNR order however no consensus on hospice care / withdrawal - LTAC refused admission ..she remains critically ill on life sustaining interventions including MVS and at high risk for further deterioration including ....30' CCT Subjective Date of service: 09/19/16 Principal diagnosis: Acute Hypoxemic Hypercapnic Resp Failure; Severe Sepsis Interval history: Seen and examined at bedside; 24 hour events reviewed; nursing and respiratory care staff consulted; no adverse overnight events reported to me; resting in bed; AMS is persistent; no emesis or overt aspiration; no seizure activity Objective Vital Signs - 12hr 09/19/16 09/19/16 09/19/16 02:00 03:01 03:30 Temperature Pulse Rate 81 108 H 58 L Pulse Rate [ 76 Anterior Bilateral Throughout] Pulse Rate [ From Monitor] Respiratory 24 20 Rate Respiratory 24 Rate [Anterior Bilateral Throughout] Blood Pressure 118/44 118/44 128/38 O2 Sat by Pulse 99 99 100 Oximetry 09/19/16 09/19/16 09/19/16 03:56 04:00 04:44 Temperature 99.3 F Pulse Rate 68 45 L Pulse Rate [ Anterior Bilateral Throughout] Pulse Rate [ 68 From Monitor] Respiratory 22 Rate Respiratory Rate [Anterior Bilateral Throughout] Blood Pressure 94/41 111/45 O2 Sat by Pulse 100 Oximetry 09/19/16 09/19/16 09/19/16 05:00 06:01 07:00 Temperature Pulse Rate 64 72 67 Pulse Rate [ Anterior Bilateral Throughout] Pulse Rate [ From Monitor] Respiratory 21 21 21 Rate Respiratory Rate [Anterior Bilateral Throughout] Blood Pressure 114/42 114/42 109/39 O2 Sat by Pulse 99 98 100 Oximetry 09/19/16 09/19/16 09/19/16 07:33 08:00 08:01 Temperature 99.3 F Pulse Rate 46 L 54 L Pulse Rate [ Anterior Bilateral Throughout] Pulse Rate [ 69 From Monitor] Respiratory 22 20 Rate Respiratory Rate [Anterior Bilateral Throughout] Blood Pressure 109/39 117/45 O2 Sat by Pulse 100 100 100 Oximetry 09/19/16 09/19/16 09/19/16 08:13 08:50 09:01 Temperature Pulse Rate 49 L Pulse Rate [ 49 L 50 L Anterior Bilateral Throughout] Pulse Rate [ From Monitor] Respiratory 20 Rate Respiratory 22 22 Rate [Anterior Bilateral Throughout] Blood Pressure 115/43 O2 Sat by Pulse 100 Oximetry 09/19/16 09/19/16 09/19/16 10:01 10:48 11:01 Temperature Pulse Rate 51 L 80 49 L Pulse Rate [ Anterior Bilateral Throughout] Pulse Rate [ From Monitor] Respiratory 26 H 25 H Rate Respiratory Rate [Anterior Bilateral Throughout] Blood Pressure 167/85 167/85 116/42 O2 Sat by Pulse 100 100 Oximetry 09/19/16 09/19/16 09/19/16 11:34 12:00 13:00 Temperature 98.8 F Pulse Rate 49 L 67 80 Pulse Rate [ Anterior Bilateral Throughout] Pulse Rate [ 84 From Monitor] Respiratory 17 21 Rate Respiratory Rate [Anterior Bilateral Throughout] Blood Pressure 116/42 138/59 125/51 O2 Sat by Pulse 100 100 100 Oximetry 09/19/16 09/19/16 13:12 13:41 Temperature Pulse Rate Pulse Rate [ 56 L 56 L Anterior Bilateral Throughout] Pulse Rate [ From Monitor] Respiratory Rate Respiratory 22 24 Rate [Anterior Bilateral Throughout] Blood Pressure O2 Sat by Pulse Oximetry Constitutional: no acute distress, other (encephalopathic) Eyes: non-icteric ENT: oropharynx moist Neck: supple, no lymphadenopathy Effort: mildly labored Ascultation: Bilateral: diminished breath sounds (bases), rales Cardiovascular: regular rate and rhythm Gastrointestinal: hypoactive bowel sounds, soft, non-tender, non-distended Integumentary: normal Extremities: no cyanosis, pulses normal, no ischemia or petechiae, edema (1++) Neurologic: unable to assess, other (lethargic) Psychiatric: other (sedated) CBC and BMP: 09/21/16 05:15 09/21/16 05:15 ABG, PT/INR, D-dimer: ABG POC ABG pH 7.454 (7.35-7.45) H 09/09/16 12:33 POC ABG pCO2 38.4 (35-45) 09/09/16 12:33 POC ABG pO2 75 (80-105) L 09/09/16 12:33 POC ABG HCO3 27.0 09/09/16 12:33 POC ABG Total CO2 28 09/09/16 12:33 POC ABG O2 Sat 96 09/09/16 12:33 PT/INR, D-dimer PT 13.8 Sec. (12.2-14.9) 09/10/16 05:10 INR 1.07 (0.87-1.13) 09/10/16 05:10 Abnormal lab findings: Abnormal Labs 08/29/16 08/30/16 08/30/16 21:59 00:16 05:39 WBC RBC Hgb Hct MCH MCHC RDW Plt Count Seg Neutrophils % Seg Neuts % (Manual) Nucleated RBC % Seg Neutrophils # Seg Neutrophils # Man PT INR POC ABG pH POC ABG pCO2 POC ABG pO2 Sodium Potassium Chloride Carbon Dioxide BUN Creatinine Glucose POC Glucose 106 H 128 H Lactic Acid Calcium Magnesium Total Bilirubin AST ALT Alkaline Phosphatase Ammonia Troponin T C-Reactive Protein Total Protein Albumin Prealbumin 0.120 L TSH Crossmatch 08/30/16 08/30/16 08/30/16 10:30 10:30 11:12 WBC 11.1 H RBC 3.16 L Hgb 8.7 L Hct 29.9 L MCH MCHC 29 L RDW 25.0 H Plt Count Seg Neutrophils % 78.6 H Seg Neuts % (Manual) Nucleated RBC % Seg Neutrophils # 8.7 H Seg Neutrophils # Man PT INR POC ABG pH POC ABG pCO2 POC ABG pO2 Sodium 135 L Potassium Chloride Carbon Dioxide 20 L BUN Creatinine 1.5 H Glucose 148 H POC Glucose 142 H Lactic Acid Calcium 7.2 L Magnesium Total Bilirubin 1.30 H AST 143 H ALT Alkaline Phosphatase 392 H Ammonia Troponin T C-Reactive Protein Total Protein 6.1 L Albumin 1.2 L Prealbumin TSH Crossmatch 08/30/16 08/30/16 08/30/16 17:41 18:03 18:18 WBC RBC Hgb Hct MCH MCHC RDW Plt Count Seg Neutrophils % Seg Neuts % (Manual) Nucleated RBC % Seg Neutrophils # Seg Neutrophils # Man PT INR POC ABG pH 7.316 L POC ABG pCO2 POC ABG pO2 44 L 59 L Sodium Potassium Chloride Carbon Dioxide BUN Creatinine Glucose POC Glucose 150 H Lactic Acid Calcium Magnesium Total Bilirubin AST ALT Alkaline Phosphatase Ammonia Troponin T C-Reactive Protein Total Protein Albumin Prealbumin TSH Crossmatch 08/30/16 08/30/16 08/31/16 22:20 22:20 00:11 WBC RBC Hgb Hct MCH MCHC RDW Plt Count Seg Neutrophils % Seg Neuts % (Manual) Nucleated RBC % Seg Neutrophils # Seg Neutrophils # Man PT INR POC ABG pH POC ABG pCO2 POC ABG pO2 Sodium Potassium Chloride Carbon Dioxide BUN Creatinine Glucose POC Glucose 133 H Lactic Acid 2.30 H* Calcium Magnesium Total Bilirubin AST ALT Alkaline Phosphatase Ammonia Troponin T C-Reactive Protein 10.20 H Total Protein Albumin Prealbumin TSH Crossmatch 08/31/16 08/31/16 08/31/16 04:20 04:20 04:20 WBC 18.3 H RBC 3.19 L Hgb 8.8 L Hct 30.0 L MCH 27 L MCHC 29 L RDW 23.9 H Plt Count Seg Neutrophils % Seg Neuts % (Manual) Nucleated RBC % Seg Neutrophils # Seg Neutrophils # Man PT 16.8 H INR 1.37 H POC ABG pH POC ABG pCO2 POC ABG pO2 Sodium 136 L Potassium Chloride Carbon Dioxide 19 L BUN Creatinine 1.5 H Glucose 125 H POC Glucose Lactic Acid Calcium 7.0 L Magnesium Total Bilirubin 1.50 H AST 131 H ALT Alkaline Phosphatase 431 H Ammonia Troponin T C-Reactive Protein Total Protein 6.2 L Albumin 1.2 L Prealbumin TSH Crossmatch 08/31/16 08/31/16 08/31/16 04:20 05:22 05:24 WBC RBC Hgb Hct MCH MCHC RDW Plt Count Seg Neutrophils % Seg Neuts % (Manual) Nucleated RBC % Seg Neutrophils # Seg Neutrophils # Man PT INR POC ABG pH POC ABG pCO2 POC ABG pO2 142 H Sodium Potassium Chloride Carbon Dioxide BUN Creatinine Glucose POC Glucose 123 H Lactic Acid Calcium Magnesium Total Bilirubin AST ALT Alkaline Phosphatase Ammonia 70.0 H Troponin T C-Reactive Protein Total Protein Albumin Prealbumin TSH Crossmatch 08/31/16 08/31/16 08/31/16 12:10 15:45 17:38 WBC RBC Hgb Hct MCH MCHC RDW Plt Count Seg Neutrophils % Seg Neuts % (Manual) Nucleated RBC % Seg Neutrophils # Seg Neutrophils # Man PT INR POC ABG pH POC ABG pCO2 POC ABG pO2 Sodium 136 L Potassium Chloride Carbon Dioxide 21 L BUN Creatinine 1.5 H Glucose 160 H POC Glucose 147 H 151 H Lactic Acid Calcium 6.9 L Magnesium Total Bilirubin AST ALT Alkaline Phosphatase Ammonia Troponin T 0.109 H* D C-Reactive Protein Total Protein Albumin Prealbumin TSH Crossmatch 09/01/16 09/01/16 09/01/16 00:09 04:00 04:00 WBC 14.8 H RBC 2.89 L Hgb 7.8 L Hct 27.2 L MCH 27 L MCHC 29 L RDW 24.4 H Plt Count Seg Neutrophils % Seg Neuts % (Manual) Nucleated RBC % Seg Neutrophils # Seg Neutrophils # Man PT 18.2 H INR 1.51 H POC ABG pH POC ABG pCO2 POC ABG pO2 Sodium Potassium Chloride Carbon Dioxide BUN Creatinine Glucose POC Glucose 192 H Lactic Acid Calcium Magnesium Total Bilirubin AST ALT Alkaline Phosphatase Ammonia Troponin T C-Reactive Protein Total Protein Albumin Prealbumin TSH Crossmatch 09/01/16 09/01/16 09/01/16 04:00 05:28 11:28 WBC RBC Hgb Hct MCH MCHC RDW Plt Count Seg Neutrophils % Seg Neuts % (Manual) Nucleated RBC % Seg Neutrophils # Seg Neutrophils # Man PT INR POC ABG pH POC ABG pCO2 POC ABG pO2 Sodium Potassium Chloride Carbon Dioxide 20 L BUN Creatinine 1.6 H Glucose 183 H POC Glucose 189 H 207 H Lactic Acid Calcium 6.9 L Magnesium Total Bilirubin 1.30 H AST 138 H ALT Alkaline Phosphatase 520 H Ammonia Troponin T C-Reactive Protein Total Protein 6.1 L Albumin 1.2 L Prealbumin TSH Crossmatch 09/01/16 09/01/16 09/02/16 16:56 23:49 05:00 WBC RBC Hgb Hct MCH MCHC RDW Plt Count Seg Neutrophils % Seg Neuts % (Manual) Nucleated RBC % Seg Neutrophils # Seg Neutrophils # Man PT 18.0 H INR 1.49 H POC ABG pH POC ABG pCO2 POC ABG pO2 Sodium Potassium Chloride Carbon Dioxide BUN Creatinine Glucose POC Glucose 250 H 307 H Lactic Acid Calcium Magnesium Total Bilirubin AST ALT Alkaline Phosphatase Ammonia Troponin T C-Reactive Protein Total Protein Albumin Prealbumin TSH Crossmatch 09/02/16 09/02/16 09/02/16 05:00 05:00 05:45 WBC 12.3 H RBC 2.57 L Hgb 7.1 L Hct 23.4 L MCH MCHC RDW 23.9 H Plt Count Seg Neutrophils % Seg Neuts % (Manual) 72.0 H Nucleated RBC % 25.0 H Seg Neutrophils # Seg Neutrophils # Man 8.9 H PT INR POC ABG pH POC ABG pCO2 POC ABG pO2 Sodium Potassium Chloride Carbon Dioxide BUN Creatinine 1.4 H Glucose 299 H POC Glucose 327 H Lactic Acid Calcium 7.0 L Magnesium Total Bilirubin AST ALT Alkaline Phosphatase Ammonia Troponin T C-Reactive Protein Total Protein Albumin Prealbumin TSH Crossmatch 09/02/16 09/02/16 09/02/16 12:22 17:22 23:24 WBC RBC Hgb Hct MCH MCHC RDW Plt Count Seg Neutrophils % Seg Neuts % (Manual) Nucleated RBC % Seg Neutrophils # Seg Neutrophils # Man PT INR POC ABG pH POC ABG pCO2 POC ABG pO2 Sodium Potassium Chloride Carbon Dioxide BUN Creatinine Glucose POC Glucose 310 H 358 H 286 H Lactic Acid Calcium Magnesium Total Bilirubin AST ALT Alkaline Phosphatase Ammonia Troponin T C-Reactive Protein Total Protein Albumin Prealbumin TSH Crossmatch 09/03/16 09/03/16 09/03/16 04:10 04:10 04:10 WBC 11.8 H RBC 2.29 L Hgb 6.1 L Hct 21.0 L MCH 27 L MCHC 29 L RDW 24.1 H Plt Count Seg Neutrophils % Seg Neuts % (Manual) Nucleated RBC % Seg Neutrophils # Seg Neutrophils # Man PT 17.6 H INR 1.45 H POC ABG pH POC ABG pCO2 POC ABG pO2 Sodium Potassium Chloride Carbon Dioxide BUN Creatinine 1.4 H Glucose 301 H POC Glucose Lactic Acid Calcium 7.0 L Magnesium Total Bilirubin AST ALT Alkaline Phosphatase Ammonia Troponin T C-Reactive Protein Total Protein Albumin Prealbumin TSH Crossmatch 09/03/16 09/03/16 09/03/16 05:59 11:36 17:42 WBC RBC Hgb Hct MCH MCHC RDW Plt Count Seg Neutrophils % Seg Neuts % (Manual) Nucleated RBC % Seg Neutrophils # Seg Neutrophils # Man PT INR POC ABG pH POC ABG pCO2 POC ABG pO2 Sodium Potassium Chloride Carbon Dioxide BUN Creatinine Glucose POC Glucose 351 H 285 H 259 H Lactic Acid Calcium Magnesium Total Bilirubin AST ALT Alkaline Phosphatase Ammonia Troponin T C-Reactive Protein Total Protein Albumin Prealbumin TSH Crossmatch 09/03/16 09/04/16 09/04/16 23:00 04:27 05:36 WBC RBC Hgb Hct MCH MCHC RDW Plt Count Seg Neutrophils % Seg Neuts % (Manual) Nucleated RBC % Seg Neutrophils # Seg Neutrophils # Man PT INR POC ABG pH 7.544 H POC ABG pCO2 30.8 L POC ABG pO2 78 L Sodium Potassium Chloride Carbon Dioxide BUN Creatinine Glucose POC Glucose 192 H 228 H Lactic Acid Calcium Magnesium Total Bilirubin AST ALT Alkaline Phosphatase Ammonia Troponin T C-Reactive Protein Total Protein Albumin Prealbumin TSH Crossmatch 09/04/16 09/04/16 09/04/16 06:37 06:37 06:39 WBC 21.0 H RBC 2.22 L Hgb 6.0 L Hct 20.1 L MCH 27 L MCHC RDW 24.3 H Plt Count Seg Neutrophils % Seg Neuts % (Manual) Nucleated RBC % Seg Neutrophils # Seg Neutrophils # Man PT 16.8 H INR 1.37 H POC ABG pH POC ABG pCO2 POC ABG pO2 Sodium Potassium Chloride Carbon Dioxide BUN Creatinine 1.4 H Glucose 201 H POC Glucose Lactic Acid Calcium 7.1 L Magnesium Total Bilirubin AST ALT Alkaline Phosphatase Ammonia Troponin T C-Reactive Protein Total Protein Albumin Prealbumin TSH Crossmatch 09/04/16 09/04/16 09/04/16 12:14 15:47 17:41 WBC RBC Hgb Hct MCH MCHC RDW Plt Count Seg Neutrophils % Seg Neuts % (Manual) Nucleated RBC % Seg Neutrophils # Seg Neutrophils # Man PT INR POC ABG pH POC ABG pCO2 POC ABG pO2 Sodium Potassium Chloride Carbon Dioxide BUN Creatinine Glucose POC Glucose 176 H 218 H Lactic Acid Calcium Magnesium Total Bilirubin AST ALT Alkaline Phosphatase Ammonia Troponin T C-Reactive Protein Total Protein Albumin Prealbumin TSH Crossmatch See Detail 09/04/16 09/04/16 09/05/16 21:59 23:48 04:30 WBC RBC Hgb Hct MCH MCHC RDW Plt Count Seg Neutrophils % Seg Neuts % (Manual) Nucleated RBC % Seg Neutrophils # Seg Neutrophils # Man PT 17.2 H INR 1.41 H POC ABG pH POC ABG pCO2 POC ABG pO2 Sodium Potassium Chloride Carbon Dioxide BUN Creatinine Glucose POC Glucose 170 H 121 H Lactic Acid Calcium Magnesium Total Bilirubin AST ALT Alkaline Phosphatase Ammonia Troponin T C-Reactive Protein Total Protein Albumin Prealbumin TSH Crossmatch 09/05/16 09/05/16 09/05/16 04:30 04:30 05:09 WBC 31.9 H RBC 3.11 L Hgb 8.5 L Hct 28.3 L D MCH 27 L MCHC RDW 21.0 H Plt Count Seg Neutrophils % Seg Neuts % (Manual) Nucleated RBC % Seg Neutrophils # Seg Neutrophils # Man PT INR POC ABG pH 7.226 L POC ABG pCO2 61.6 H POC ABG pO2 68 L Sodium 134 L Potassium 5.5 H Chloride 96.6 L Carbon Dioxide BUN 23 H Creatinine 1.6 H Glucose 116 H POC Glucose Lactic Acid Calcium 7.1 L Magnesium Total Bilirubin AST ALT Alkaline Phosphatase Ammonia Troponin T C-Reactive Protein Total Protein Albumin Prealbumin TSH Crossmatch 09/05/16 09/05/16 09/05/16 05:33 12:08 17:32 WBC RBC Hgb Hct MCH MCHC RDW Plt Count Seg Neutrophils % Seg Neuts % (Manual) Nucleated RBC % Seg Neutrophils # Seg Neutrophils # Man PT INR POC ABG pH POC ABG pCO2 POC ABG pO2 Sodium Potassium Chloride Carbon Dioxide BUN Creatinine Glucose POC Glucose 114 H 147 H 174 H Lactic Acid Calcium Magnesium Total Bilirubin AST ALT Alkaline Phosphatase Ammonia Troponin T C-Reactive Protein Total Protein Albumin Prealbumin TSH Crossmatch 09/06/16 09/06/16 09/06/16 03:30 03:30 03:30 WBC 25.4 H RBC 2.57 L Hgb 7.2 L Hct 22.8 L MCH MCHC RDW 20.9 H Plt Count 138 L Seg Neutrophils % Seg Neuts % (Manual) Nucleated RBC % Seg Neutrophils # Seg Neutrophils # Man PT 16.4 H INR 1.33 H POC ABG pH POC ABG pCO2 POC ABG pO2 Sodium Potassium Chloride Carbon Dioxide BUN 36 H Creatinine 1.9 H Glucose POC Glucose Lactic Acid Calcium 7.2 L Magnesium Total Bilirubin AST ALT Alkaline Phosphatase Ammonia Troponin T C-Reactive Protein Total Protein Albumin Prealbumin TSH Crossmatch 09/06/16 09/06/16 09/06/16 11:07 12:03 14:44 WBC RBC Hgb Hct MCH MCHC RDW Plt Count Seg Neutrophils % Seg Neuts % (Manual) Nucleated RBC % Seg Neutrophils # Seg Neutrophils # Man PT INR POC ABG pH POC ABG pCO2 POC ABG pO2 Sodium Potassium Chloride Carbon Dioxide BUN Creatinine Glucose POC Glucose 61 L 55 L Lactic Acid Calcium Magnesium Total Bilirubin AST ALT Alkaline Phosphatase Ammonia Troponin T 0.080 H C-Reactive Protein Total Protein Albumin Prealbumin TSH Crossmatch 09/06/16 09/06/16 09/07/16 21:05 23:53 03:36 WBC RBC Hgb Hct MCH MCHC RDW Plt Count Seg Neutrophils % Seg Neuts % (Manual) Nucleated RBC % Seg Neutrophils # Seg Neutrophils # Man PT INR POC ABG pH POC ABG pCO2 POC ABG pO2 Sodium Potassium Chloride Carbon Dioxide BUN Creatinine Glucose POC Glucose 140 H 178 H 243 H Lactic Acid Calcium Magnesium Total Bilirubin AST ALT Alkaline Phosphatase Ammonia Troponin T C-Reactive Protein Total Protein Albumin Prealbumin TSH Crossmatch 09/07/16 09/07/16 09/07/16 03:42 03:42 05:04 WBC 17.3 H RBC 2.69 L Hgb 7.6 L Hct 23.8 L MCH MCHC RDW 20.5 H Plt Count 137 L Seg Neutrophils % Seg Neuts % (Manual) Nucleated RBC % Seg Neutrophils # Seg Neutrophils # Man PT INR POC ABG pH POC ABG pCO2 POC ABG pO2 Sodium Potassium 3.3 L Chloride Carbon Dioxide BUN 38 H Creatinine 1.6 H Glucose 201 H POC Glucose 241 H Lactic Acid Calcium 7.4 L Magnesium Total Bilirubin AST ALT Alkaline Phosphatase Ammonia Troponin T C-Reactive Protein Total Protein Albumin Prealbumin TSH Crossmatch 09/07/16 09/07/16 09/07/16 11:46 17:41 23:18 WBC RBC Hgb Hct MCH MCHC RDW Plt Count Seg Neutrophils % Seg Neuts % (Manual) Nucleated RBC % Seg Neutrophils # Seg Neutrophils # Man PT INR POC ABG pH POC ABG pCO2 POC ABG pO2 Sodium Potassium Chloride Carbon Dioxide BUN Creatinine Glucose POC Glucose 313 H 227 H 116 H Lactic Acid Calcium Magnesium Total Bilirubin AST ALT Alkaline Phosphatase Ammonia Troponin T C-Reactive Protein Total Protein Albumin Prealbumin TSH Crossmatch 09/08/16 09/08/16 09/08/16 04:00 04:00 05:15 WBC 18.4 H RBC 2.43 L Hgb 6.9 L Hct 21.5 L MCH MCHC RDW 20.5 H Plt Count 119 L Seg Neutrophils % Seg Neuts % (Manual) Nucleated RBC % Seg Neutrophils # Seg Neutrophils # Man PT INR POC ABG pH 7.458 H POC ABG pCO2 POC ABG pO2 177 H Sodium Potassium 3.5 L Chloride Carbon Dioxide BUN 37 H Creatinine 1.3 H Glucose POC Glucose Lactic Acid Calcium 7.1 L Magnesium Total Bilirubin AST ALT Alkaline Phosphatase Ammonia Troponin T C-Reactive Protein Total Protein Albumin Prealbumin TSH Crossmatch 09/08/16 09/08/16 09/08/16 11:00 15:58 23:16 WBC RBC Hgb Hct MCH MCHC RDW Plt Count Seg Neutrophils % Seg Neuts % (Manual) Nucleated RBC % Seg Neutrophils # Seg Neutrophils # Man PT INR POC ABG pH POC ABG pCO2 POC ABG pO2 113 H Sodium Potassium Chloride Carbon Dioxide BUN Creatinine Glucose POC Glucose 40 L Lactic Acid Calcium Magnesium Total Bilirubin AST ALT Alkaline Phosphatase Ammonia Troponin T C-Reactive Protein Total Protein Albumin Prealbumin TSH Crossmatch See Detail 09/09/16 09/09/16 09/09/16 05:02 12:33 18:10 WBC RBC Hgb Hct MCH MCHC RDW Plt Count Seg Neutrophils % Seg Neuts % (Manual) Nucleated RBC % Seg Neutrophils # Seg Neutrophils # Man PT INR POC ABG pH 7.454 H POC ABG pCO2 POC ABG pO2 75 L Sodium Potassium Chloride Carbon Dioxide BUN Creatinine Glucose POC Glucose 59 L Lactic Acid Calcium Magnesium Total Bilirubin AST ALT Alkaline Phosphatase Ammonia Troponin T C-Reactive Protein Total Protein Albumin Prealbumin TSH 5.220 H Crossmatch 09/09/16 09/09/16 09/09/16 18:10 18:10 18:42 WBC 17.0 H RBC 2.90 L Hgb 8.5 L Hct 26.1 L MCH MCHC RDW 17.9 H Plt Count 126 L Seg Neutrophils % Seg Neuts % (Manual) Nucleated RBC % Seg Neutrophils # Seg Neutrophils # Man PT INR POC ABG pH POC ABG pCO2 POC ABG pO2 Sodium Potassium Chloride Carbon Dioxide BUN 36 H Creatinine Glucose 133 H POC Glucose 148 H Lactic Acid Calcium 6.9 L Magnesium Total Bilirubin AST 253 H ALT 184 H Alkaline Phosphatase 729 H Ammonia Troponin T C-Reactive Protein Total Protein 5.1 L Albumin 1.7 L Prealbumin TSH Crossmatch 09/09/16 09/10/16 09/10/16 23:22 05:10 11:43 WBC RBC Hgb Hct MCH MCHC RDW Plt Count Seg Neutrophils % Seg Neuts % (Manual) Nucleated RBC % Seg Neutrophils # Seg Neutrophils # Man PT INR POC ABG pH POC ABG pCO2 POC ABG pO2 Sodium Potassium Chloride Carbon Dioxide BUN 35 H Creatinine Glucose 240 H POC Glucose 170 H 268 H Lactic Acid Calcium 6.8 L Magnesium Total Bilirubin AST 226 H ALT 171 H Alkaline Phosphatase 710 H Ammonia Troponin T C-Reactive Protein Total Protein 5.2 L Albumin 1.7 L Prealbumin TSH Crossmatch 09/10/16 09/11/16 09/11/16 17:51 01:07 05:00 WBC RBC Hgb Hct MCH MCHC RDW Plt Count Seg Neutrophils % Seg Neuts % (Manual) Nucleated RBC % Seg Neutrophils # Seg Neutrophils # Man PT INR POC ABG pH POC ABG pCO2 POC ABG pO2 Sodium Potassium 2.9 L* Chloride Carbon Dioxide BUN 35 H Creatinine Glucose 274 H POC Glucose 334 H 223 H Lactic Acid Calcium 6.9 L Magnesium Total Bilirubin AST 167 H ALT 145 H Alkaline Phosphatase 631 H Ammonia Troponin T C-Reactive Protein Total Protein 5.1 L Albumin 1.6 L Prealbumin TSH Crossmatch 09/11/16 09/11/16 09/11/16 05:01 12:16 17:12 WBC RBC Hgb Hct MCH MCHC RDW Plt Count Seg Neutrophils % Seg Neuts % (Manual) Nucleated RBC % Seg Neutrophils # Seg Neutrophils # Man PT INR POC ABG pH POC ABG pCO2 POC ABG pO2 Sodium Potassium Chloride Carbon Dioxide BUN Creatinine Glucose POC Glucose 305 H 219 H 171 H Lactic Acid Calcium Magnesium Total Bilirubin AST ALT Alkaline Phosphatase Ammonia Troponin T C-Reactive Protein Total Protein Albumin Prealbumin TSH Crossmatch 09/11/16 09/12/16 09/12/16 23:35 03:33 05:00 WBC 12.9 H RBC 2.81 L Hgb 8.2 L Hct 25.4 L MCH MCHC RDW 17.9 H Plt Count Seg Neutrophils % Seg Neuts % (Manual) Nucleated RBC % Seg Neutrophils # Seg Neutrophils # Man PT INR POC ABG pH POC ABG pCO2 POC ABG pO2 Sodium Potassium Chloride Carbon Dioxide BUN Creatinine Glucose POC Glucose 216 H 183 H Lactic Acid Calcium Magnesium Total Bilirubin AST ALT Alkaline Phosphatase Ammonia Troponin T C-Reactive Protein Total Protein Albumin Prealbumin TSH Crossmatch 09/12/16 09/12/16 09/12/16 05:00 15:15 18:30 WBC RBC Hgb Hct MCH MCHC RDW Plt Count Seg Neutrophils % Seg Neuts % (Manual) Nucleated RBC % Seg Neutrophils # Seg Neutrophils # Man PT INR POC ABG pH POC ABG pCO2 POC ABG pO2 Sodium Potassium 3.0 L 3.4 L Chloride Carbon Dioxide BUN 33 H Creatinine 0.5 L Glucose POC Glucose 215 H Lactic Acid Calcium 7.0 L Magnesium Total Bilirubin AST ALT Alkaline Phosphatase Ammonia Troponin T C-Reactive Protein Total Protein Albumin Prealbumin TSH Crossmatch 09/12/16 09/13/16 09/13/16 23:17 05:50 05:50 WBC RBC 2.93 L Hgb 8.8 L Hct 26.7 L MCH MCHC RDW 18.0 H Plt Count Seg Neutrophils % Seg Neuts % (Manual) Nucleated RBC % Seg Neutrophils # Seg Neutrophils # Man PT INR POC ABG pH POC ABG pCO2 POC ABG pO2 Sodium Potassium 2.6 L* D Chloride Carbon Dioxide BUN 29 H Creatinine 0.5 L Glucose 106 H POC Glucose 155 H Lactic Acid Calcium 7.3 L Magnesium Total Bilirubin AST ALT Alkaline Phosphatase Ammonia Troponin T C-Reactive Protein Total Protein Albumin Prealbumin TSH Crossmatch 09/13/16 09/13/16 09/13/16 05:53 11:43 15:07 WBC RBC Hgb Hct MCH MCHC RDW Plt Count Seg Neutrophils % Seg Neuts % (Manual) Nucleated RBC % Seg Neutrophils # Seg Neutrophils # Man PT INR POC ABG pH POC ABG pCO2 POC ABG pO2 Sodium Potassium 2.8 L* Chloride Carbon Dioxide BUN Creatinine Glucose POC Glucose 119 H 129 H Lactic Acid Calcium Magnesium Total Bilirubin AST ALT Alkaline Phosphatase Ammonia Troponin T C-Reactive Protein Total Protein Albumin Prealbumin TSH Crossmatch 09/13/16 09/13/16 09/14/16 17:39 23:30 05:34 WBC RBC Hgb Hct MCH MCHC RDW Plt Count Seg Neutrophils % Seg Neuts % (Manual) Nucleated RBC % Seg Neutrophils # Seg Neutrophils # Man PT INR POC ABG pH POC ABG pCO2 POC ABG pO2 Sodium Potassium Chloride Carbon Dioxide BUN Creatinine Glucose POC Glucose 144 H 196 H 175 H Lactic Acid Calcium Magnesium Total Bilirubin AST ALT Alkaline Phosphatase Ammonia Troponin T C-Reactive Protein Total Protein Albumin Prealbumin TSH Crossmatch 09/14/16 09/14/16 09/14/16 06:24 06:24 12:41 WBC RBC 2.82 L Hgb 8.4 L Hct 25.7 L MCH MCHC RDW 18.0 H Plt Count Seg Neutrophils % Seg Neuts % (Manual) Nucleated RBC % Seg Neutrophils # Seg Neutrophils # Man PT INR POC ABG pH POC ABG pCO2 POC ABG pO2 Sodium Potassium 2.9 L* Chloride 107.3 H Carbon Dioxide BUN 26 H Creatinine 0.4 L Glucose 169 H POC Glucose 184 H Lactic Acid Calcium 7.5 L Magnesium Total Bilirubin AST ALT Alkaline Phosphatase Ammonia Troponin T C-Reactive Protein Total Protein Albumin Prealbumin TSH Crossmatch 09/14/16 09/14/16 09/14/16 14:50 17:57 23:34 WBC RBC Hgb Hct MCH MCHC RDW Plt Count Seg Neutrophils % Seg Neuts % (Manual) Nucleated RBC % Seg Neutrophils # Seg Neutrophils # Man PT INR POC ABG pH POC ABG pCO2 POC ABG pO2 Sodium Potassium 3.3 L Chloride Carbon Dioxide BUN Creatinine Glucose POC Glucose 191 H 178 H Lactic Acid Calcium Magnesium Total Bilirubin AST ALT Alkaline Phosphatase Ammonia Troponin T C-Reactive Protein Total Protein Albumin Prealbumin TSH Crossmatch 09/15/16 09/15/16 09/15/16 05:02 07:57 07:57 WBC RBC 3.04 L Hgb 9.2 L Hct 28.2 L MCH MCHC RDW 18.8 H Plt Count Seg Neutrophils % Seg Neuts % (Manual) Nucleated RBC % Seg Neutrophils # Seg Neutrophils # Man PT INR POC ABG pH POC ABG pCO2 POC ABG pO2 Sodium Potassium Chloride 107.2 H Carbon Dioxide BUN 26 H Creatinine 0.4 L Glucose 160 H POC Glucose 192 H Lactic Acid Calcium 7.7 L Magnesium Total Bilirubin AST ALT Alkaline Phosphatase Ammonia Troponin T C-Reactive Protein Total Protein Albumin Prealbumin TSH Crossmatch 09/15/16 09/15/16 09/15/16 11:23 17:51 23:45 WBC RBC Hgb Hct MCH MCHC RDW Plt Count Seg Neutrophils % Seg Neuts % (Manual) Nucleated RBC % Seg Neutrophils # Seg Neutrophils # Man PT INR POC ABG pH POC ABG pCO2 POC ABG pO2 Sodium Potassium Chloride Carbon Dioxide BUN Creatinine Glucose POC Glucose 232 H 240 H 251 H Lactic Acid Calcium Magnesium Total Bilirubin AST ALT Alkaline Phosphatase Ammonia Troponin T C-Reactive Protein Total Protein Albumin Prealbumin TSH Crossmatch 09/16/16 09/16/16 09/16/16 04:55 04:55 05:38 WBC RBC 2.84 L Hgb 8.6 L Hct 26.2 L MCH MCHC RDW 18.8 H Plt Count Seg Neutrophils % Seg Neuts % (Manual) Nucleated RBC % Seg Neutrophils # Seg Neutrophils # Man PT INR POC ABG pH POC ABG pCO2 POC ABG pO2 Sodium Potassium 3.1 L Chloride 107.6 H Carbon Dioxide BUN 25 H Creatinine 0.3 L Glucose 134 H POC Glucose 157 H Lactic Acid Calcium 7.6 L Magnesium Total Bilirubin AST ALT Alkaline Phosphatase Ammonia Troponin T C-Reactive Protein Total Protein Albumin Prealbumin TSH Crossmatch 09/16/16 09/16/16 09/16/16 11:53 17:56 23:54 WBC RBC Hgb Hct MCH MCHC RDW Plt Count Seg Neutrophils % Seg Neuts % (Manual) Nucleated RBC % Seg Neutrophils # Seg Neutrophils # Man PT INR POC ABG pH POC ABG pCO2 POC ABG pO2 Sodium Potassium Chloride Carbon Dioxide BUN Creatinine Glucose POC Glucose 137 H 138 H 179 H Lactic Acid Calcium Magnesium Total Bilirubin AST ALT Alkaline Phosphatase Ammonia Troponin T C-Reactive Protein Total Protein Albumin Prealbumin TSH Crossmatch 09/17/16 09/17/16 09/17/16 05:00 05:00 05:28 WBC RBC 2.77 L Hgb 8.2 L Hct 25.9 L MCH MCHC RDW 19.1 H Plt Count Seg Neutrophils % Seg Neuts % (Manual) Nucleated RBC % Seg Neutrophils # Seg Neutrophils # Man PT INR POC ABG pH POC ABG pCO2 POC ABG pO2 Sodium Potassium 3.5 L Chloride 108.4 H Carbon Dioxide BUN 29 H Creatinine 0.3 L Glucose 117 H POC Glucose 142 H Lactic Acid Calcium 7.4 L Magnesium Total Bilirubin AST ALT Alkaline Phosphatase Ammonia Troponin T C-Reactive Protein Total Protein Albumin Prealbumin TSH Crossmatch 09/17/16 09/17/16 09/18/16 18:07 23:31 06:29 WBC RBC Hgb Hct MCH MCHC RDW Plt Count Seg Neutrophils % Seg Neuts % (Manual) Nucleated RBC % Seg Neutrophils # Seg Neutrophils # Man PT INR POC ABG pH POC ABG pCO2 POC ABG pO2 Sodium Potassium Chloride Carbon Dioxide BUN Creatinine Glucose POC Glucose 173 H 240 H 282 H Lactic Acid Calcium Magnesium Total Bilirubin AST ALT Alkaline Phosphatase Ammonia Troponin T C-Reactive Protein Total Protein Albumin Prealbumin TSH Crossmatch 09/18/16 09/18/16 09/18/16 06:30 12:21 17:55 WBC RBC Hgb Hct MCH MCHC RDW Plt Count Seg Neutrophils % Seg Neuts % (Manual) Nucleated RBC % Seg Neutrophils # Seg Neutrophils # Man PT INR POC ABG pH POC ABG pCO2 POC ABG pO2 Sodium 148 H Potassium Chloride 110.7 H Carbon Dioxide BUN 30 H Creatinine 0.4 L Glucose 249 H POC Glucose 248 H 255 H Lactic Acid Calcium 7.4 L Magnesium 1.60 L Total Bilirubin AST ALT Alkaline Phosphatase Ammonia Troponin T C-Reactive Protein Total Protein Albumin Prealbumin TSH Crossmatch 09/19/16 09/19/16 09/19/16 00:09 04:45 05:11 WBC RBC Hgb Hct MCH MCHC RDW Plt Count Seg Neutrophils % Seg Neuts % (Manual) Nucleated RBC % Seg Neutrophils # Seg Neutrophils # Man PT INR POC ABG pH POC ABG pCO2 POC ABG pO2 Sodium 146 H Potassium Chloride 110.8 H Carbon Dioxide BUN 34 H Creatinine 0.4 L Glucose 278 H POC Glucose 324 H 278 H Lactic Acid Calcium 7.3 L Magnesium Total Bilirubin AST ALT Alkaline Phosphatase Ammonia Troponin T C-Reactive Protein Total Protein Albumin Prealbumin TSH Crossmatch 09/19/16 09/19/16 11:12 12:09 WBC RBC Hgb Hct MCH MCHC RDW Plt Count Seg Neutrophils % Seg Neuts % (Manual) Nucleated RBC % Seg Neutrophils # Seg Neutrophils # Man PT INR POC ABG pH POC ABG pCO2 POC ABG pO2 Sodium Potassium Chloride Carbon Dioxide BUN Creatinine Glucose POC Glucose 306 H 225 H Lactic Acid Calcium Magnesium Total Bilirubin AST ALT Alkaline Phosphatase Ammonia Troponin T C-Reactive Protein Total Protein Albumin Prealbumin TSH Crossmatch Allied health notes reviewed: RT
--- NOTE | 2016-09-19 14:44 | XRay Report ---
FINAL REPORT EXAM: XR CHEST 1V AP HISTORY: ETT localization TECHNIQUE: One view examination of the chest PRIORS: One-view abdomen 08/29/2016 FINDINGS: A left venous catheter is in place with distal tip near the cavoatrial junction region. Distal portion gastric tube is present in the left upper quadrant of the abdomen, in the expected region of the proximal stomach. Limited examination due to prominent soft tissue attenuation. No evidence of pneumothorax. No right pleural effusion. Cardiac silhouette size slightly enlarged. Slight hazy opacity in the left lung base partly obscures the diaphragm. This may be atelectasis, infiltrate, or effusion. Nonspecific prominent interstitial and/or vascular density is noted bilaterally and diffusely with right lung predominance. IMPRESSION: No evidence of acute cardiopulmonary disease in the visualized chest An endotracheal tube is in place in the region of the trachea with distal tip projecting approximately 3.2 cm above the region of the terrance. Slight cardiomegaly Hazy lower left lung opacity may be atelectasis, infiltrate, or small effusion Prominent interstitial and/or vascular density may reflect vascular congestion and/or slight interstitial edema. The differential includes interstitial pneumonitis
[2016-09-19] MEDS: LEVEMIR SUB-Q SCH (23:41)
[2016-09-20] MEDS: LOPRESSOR PO SCH ×4 (00:11→18:25)
[2016-09-20] MEDS: NOVOLOG SUB-Q SCH ×4 (00:13→18:24)
[2016-09-20] MEDS: REGLAN IV SCH ×4 (00:13→18:37)
[2016-09-20] MEDS: DUONEB 0.5 MG-3 MG/3 ML SOLN IH SCH ×4 (02:45→19:42)
[2016-09-20 05:46] LABS: Anion Gap 13 mmol/L; Blood Urea Nitrogen 35 mg/dL (7-17); Calcium 7.3 mg/dL (8.4-10.2); Carbon Dioxide 26 mmol/L (22-30); Chloride 108.6 mmol/L (98-107); Glucose 370 mg/dL (65-100); Potassium 3.9 mmol/L (3.6-5.0); Sodium 144 mmol/L (137-145)
[2016-09-20] MEDS: PROAMATINE PO SCH ×3 (06:21→21:07)
--- NOTE | 2016-09-20 08:03 | Progress Note ---
Assessment and Plan - Patient Problems (1) RORY (acute kidney injury) Current Visit: No Status: Acute Plan to address problem: Acute Kidney Injury is hemodynamically mediated in the setting of hypotension / shock. Renal function has improved and stable. Follow renal function. (2) Hypokalemia Current Visit: Yes Status: Acute Plan to address problem: Monitor K levels and replete as needed. Hypernatremia: Improving with water flushes. (3) Shock Current Visit: Yes Status: Acute Plan to address problem: S/p Levophed. (4) Respiratory failure Current Visit: Yes Status: Acute Qualifiers: Chronicity: C Respiratory failure complication: R Plan to address problem: On vent. (5) Altered mental status Current Visit: Yes Status: Acute Qualifiers: Altered mental status type: unspecified Coma depth: C Coma timing: C Qualified Code(s): R41.82 - Altered mental status, unspecified (6) Anemia Current Visit: Yes Status: Acute Qualifiers: Anemia type: unspecified type Iron deficiency anemia type: I Vitamin B12 deficiency anemia type: V Folate deficiency anemia type: F Bone marrow failure anemia type: B Hemolytic anemia type: H Other causes of anemia: O Chronic kidney disease stage: C Qualified Code(s): D64.9 - Anemia, unspecified Plan to address problem: S/p PRBC. Subjective Date of service: 09/20/16 Principal diagnosis: Acute Hypoxemic Hypercapnic Resp Failure; Severe Sepsis Interval history: Patient remain on the vent. Objective - Vital Signs Vital signs: Vital Signs - 12hr 09/19/16 09/19/16 09/19/16 21:00 22:01 23:00 Temperature Pulse Rate 72 109 H 101 H Pulse Rate [ Anterior Bilateral Throughout] Pulse Rate [ From Monitor] Respiratory 24 31 H 23 Rate Respiratory Rate [Anterior Bilateral Throughout] Blood Pressure 97/38 115/56 120/48 O2 Sat by Pulse 100 100 100 Oximetry 09/20/16 09/20/16 09/20/16 00:00 00:01 00:11 Temperature 99.5 F Pulse Rate 127 H 161 H Pulse Rate [ Anterior Bilateral Throughout] Pulse Rate [ 127 H From Monitor] Respiratory 28 H Rate Respiratory Rate [Anterior Bilateral Throughout] Blood Pressure 240/174 104/47 O2 Sat by Pulse 100 100 Oximetry 09/20/16 09/20/16 09/20/16 00:36 01:00 02:00 Temperature Pulse Rate 77 73 87 Pulse Rate [ Anterior Bilateral Throughout] Pulse Rate [ From Monitor] Respiratory 29 H 28 H Rate Respiratory Rate [Anterior Bilateral Throughout] Blood Pressure 104/47 116/44 111/46 O2 Sat by Pulse 100 100 99 Oximetry 09/20/16 09/20/16 09/20/16 02:45 02:55 03:00 Temperature Pulse Rate 79 Pulse Rate [ 66 68 Anterior Bilateral Throughout] Pulse Rate [ From Monitor] Respiratory 28 H Rate Respiratory 28 H 27 H Rate [Anterior Bilateral Throughout] Blood Pressure 111/39 O2 Sat by Pulse 99 Oximetry 09/20/16 09/20/16 09/20/16 03:33 04:00 04:25 Temperature 99.4 F Pulse Rate 90 73 Pulse Rate [ Anterior Bilateral Throughout] Pulse Rate [ From Monitor] Respiratory 16 Rate Respiratory Rate [Anterior Bilateral Throughout] Blood Pressure 122/42 122/42 O2 Sat by Pulse 100 100 Oximetry 09/20/16 09/20/16 09/20/16 05:00 05:31 05:41 Temperature Pulse Rate 84 82 91 H Pulse Rate [ Anterior Bilateral Throughout] Pulse Rate [ From Monitor] Respiratory 27 H 28 H 28 H Rate Respiratory Rate [Anterior Bilateral Throughout] Blood Pressure 119/41 119/41 119/41 O2 Sat by Pulse 100 100 100 Oximetry 09/20/16 09/20/16 09/20/16 05:51 06:00 06:10 Temperature Pulse Rate 178 H 188 H 183 H Pulse Rate [ Anterior Bilateral Throughout] Pulse Rate [ From Monitor] Respiratory 31 H 35 H 33 H Rate Respiratory Rate [Anterior Bilateral Throughout] Blood Pressure 119/41 109/58 95/31 O2 Sat by Pulse 100 100 100 Oximetry 09/20/16 09/20/16 09/20/16 06:15 06:21 06:31 Temperature Pulse Rate 200 H 175 H 169 H Pulse Rate [ Anterior Bilateral Throughout] Pulse Rate [ From Monitor] Respiratory 30 H 28 H Rate Respiratory Rate [Anterior Bilateral Throughout] Blood Pressure 109/58 99/58 99/58 O2 Sat by Pulse 100 100 Oximetry 09/20/16 09/20/16 09/20/16 06:41 06:51 07:01 Temperature Pulse Rate 171 H 170 H 176 H Pulse Rate [ Anterior Bilateral Throughout] Pulse Rate [ From Monitor] Respiratory 30 H 26 H 26 H Rate Respiratory Rate [Anterior Bilateral Throughout] Blood Pressure 99/58 99/58 127/99 O2 Sat by Pulse 100 100 100 Oximetry 09/20/16 07:44 Temperature Pulse Rate Pulse Rate [ 158 H Anterior Bilateral Throughout] Pulse Rate [ From Monitor] Respiratory Rate Respiratory 20 Rate [Anterior Bilateral Throughout] Blood Pressure O2 Sat by Pulse Oximetry - General Appearance General appearance: well-developed, well-nourished, appears stated age, obese, intubated (FiO2 30%) EENT: ATNC Neck: supple Respiratory: Present: Other (coarse breath sounds) Cardiology: irregular, S1S2, no murmurs Gastrointestinal: normoactive bowel sounds, obese Integumentary: no rash Neurologic: obtunded Musculoskeletal: other (2+ edema of both LEs noted) - Lab 09/17/16 05:00 09/20/16 05:00 Most recent lab results Calcium 7.3 mg/dL (8.4-10.2) L 09/20/16 05:00 Phosphorus 3.60 mg/dL (2.5-4.5) 08/29/16 21:59 Magnesium 1.90 mg/dL (1.7-2.3) 09/20/16 05:00
[2016-09-20] MEDS: SYNTHROID IV SCH (10:31)
[2016-09-20] MEDS: KEPPRA PO SCH ×2 (10:31→21:02)
[2016-09-20] MEDS: LASIX IV SCH (10:31)
[2016-09-20] MEDS: LOVENOX SUB-Q SCH (10:31)
[2016-09-20] MEDS: FERROUS SULFATE PO SCH (10:31)
[2016-09-20] MEDS: PROTONIX PO SCH (10:32)
[2016-09-20] MEDS: FOLVITE PO SCH (10:32)
[2016-09-20] MEDS: POTASSIUM CHLORIDE FEEDTUBE SCH (10:32)
--- NOTE | 2016-09-20 11:42 | Progress Note ---
Subjective Date of service: 09/20/16 Principal diagnosis: Acute Hypoxemic Hypercapnic Resp Failure; Severe Sepsis Interval history: Seen and examined at bedside; 24 hour events reviewed; nursing and respiratory care staff consulted; no adverse overnight events reported to me; Objective Vital Signs - 12hr 09/20/16 09/20/16 09/20/16 00:00 00:01 00:11 Temperature 99.5 F Pulse Rate 127 H 161 H Pulse Rate [ Anterior Bilateral Throughout] Pulse Rate [ 127 H From Monitor] Respiratory 28 H Rate Respiratory Rate [Anterior Bilateral Throughout] Blood Pressure 240/174 104/47 O2 Sat by Pulse 100 100 Oximetry 09/20/16 09/20/16 09/20/16 00:36 01:00 02:00 Temperature Pulse Rate 77 73 87 Pulse Rate [ Anterior Bilateral Throughout] Pulse Rate [ From Monitor] Respiratory 29 H 28 H Rate Respiratory Rate [Anterior Bilateral Throughout] Blood Pressure 104/47 116/44 111/46 O2 Sat by Pulse 100 100 99 Oximetry 09/20/16 09/20/16 09/20/16 02:45 02:55 03:00 Temperature Pulse Rate 79 Pulse Rate [ 66 68 Anterior Bilateral Throughout] Pulse Rate [ From Monitor] Respiratory 28 H Rate Respiratory 28 H 27 H Rate [Anterior Bilateral Throughout] Blood Pressure 111/39 O2 Sat by Pulse 99 Oximetry 09/20/16 09/20/16 09/20/16 03:33 04:00 04:25 Temperature 99.4 F Pulse Rate 90 73 Pulse Rate [ Anterior Bilateral Throughout] Pulse Rate [ From Monitor] Respiratory 16 Rate Respiratory Rate [Anterior Bilateral Throughout] Blood Pressure 122/42 122/42 O2 Sat by Pulse 100 100 Oximetry 09/20/16 09/20/16 09/20/16 05:00 05:31 05:41 Temperature Pulse Rate 84 82 91 H Pulse Rate [ Anterior Bilateral Throughout] Pulse Rate [ From Monitor] Respiratory 27 H 28 H 28 H Rate Respiratory Rate [Anterior Bilateral Throughout] Blood Pressure 119/41 119/41 119/41 O2 Sat by Pulse 100 100 100 Oximetry 09/20/16 09/20/16 09/20/16 05:51 06:00 06:10 Temperature Pulse Rate 178 H 188 H 183 H Pulse Rate [ Anterior Bilateral Throughout] Pulse Rate [ From Monitor] Respiratory 31 H 35 H 33 H Rate Respiratory Rate [Anterior Bilateral Throughout] Blood Pressure 119/41 109/58 95/31 O2 Sat by Pulse 100 100 100 Oximetry 09/20/16 09/20/16 09/20/16 06:15 06:21 06:31 Temperature Pulse Rate 200 H 175 H 169 H Pulse Rate [ Anterior Bilateral Throughout] Pulse Rate [ From Monitor] Respiratory 30 H 28 H Rate Respiratory Rate [Anterior Bilateral Throughout] Blood Pressure 109/58 99/58 99/58 O2 Sat by Pulse 100 100 Oximetry 09/20/16 09/20/16 09/20/16 06:41 06:51 07:01 Temperature Pulse Rate 171 H 170 H 176 H Pulse Rate [ Anterior Bilateral Throughout] Pulse Rate [ From Monitor] Respiratory 30 H 26 H 26 H Rate Respiratory Rate [Anterior Bilateral Throughout] Blood Pressure 99/58 99/58 127/99 O2 Sat by Pulse 100 100 100 Oximetry 09/20/16 09/20/16 09/20/16 07:11 07:21 07:31 Temperature Pulse Rate 173 H 175 H 153 H Pulse Rate [ Anterior Bilateral Throughout] Pulse Rate [ From Monitor] Respiratory 26 H 28 H 28 H Rate Respiratory Rate [Anterior Bilateral Throughout] Blood Pressure 127/99 127/99 127/99 O2 Sat by Pulse 100 100 100 Oximetry 09/20/16 09/20/16 09/20/16 07:41 07:44 07:51 Temperature Pulse Rate 88 71 Pulse Rate [ 158 H Anterior Bilateral Throughout] Pulse Rate [ From Monitor] Respiratory 25 H 24 Rate Respiratory 20 Rate [Anterior Bilateral Throughout] Blood Pressure 127/99 127/99 O2 Sat by Pulse 100 100 Oximetry 09/20/16 09/20/16 09/20/16 08:00 08:11 10:32 Temperature 98.5 F Pulse Rate 83 82 77 Pulse Rate [ 84 Anterior Bilateral Throughout] Pulse Rate [ From Monitor] Respiratory 8 L Rate Respiratory 24 Rate [Anterior Bilateral Throughout] Blood Pressure 105/56 105/56 122/83 O2 Sat by Pulse 100 80 L Oximetry Constitutional: no acute distress, other (encephalopathic) Eyes: non-icteric ENT: oropharynx moist Neck: supple, no lymphadenopathy Effort: mildly labored Ascultation: Bilateral: clear, diminished breath sounds (bases), rales Cardiovascular: regular rate and rhythm Gastrointestinal: hypoactive bowel sounds, soft, non-tender, non-distended Integumentary: normal Extremities: no cyanosis, pulses normal, no ischemia or petechiae, edema (1++) Neurologic: unable to assess, other (lethargic) Psychiatric: other (sedated) CBC and BMP: 09/17/16 05:00 09/20/16 05:00 ABG, PT/INR, D-dimer: ABG POC ABG pH 7.454 (7.35-7.45) H 09/09/16 12:33 POC ABG pCO2 38.4 (35-45) 09/09/16 12:33 POC ABG pO2 75 (80-105) L 09/09/16 12:33 POC ABG HCO3 27.0 09/09/16 12:33 POC ABG Total CO2 28 09/09/16 12:33 POC ABG O2 Sat 96 09/09/16 12:33 PT/INR, D-dimer PT 13.8 Sec. (12.2-14.9) 09/10/16 05:10 INR 1.07 (0.87-1.13) 09/10/16 05:10 Abnormal lab findings: Abnormal Labs 08/29/16 08/30/16 08/30/16 21:59 00:16 05:39 WBC RBC Hgb Hct MCH MCHC RDW Plt Count Seg Neutrophils % Seg Neuts % (Manual) Nucleated RBC % Seg Neutrophils # Seg Neutrophils # Man PT INR POC ABG pH POC ABG pCO2 POC ABG pO2 Sodium Potassium Chloride Carbon Dioxide BUN Creatinine Glucose POC Glucose 106 H 128 H Lactic Acid Calcium Magnesium Total Bilirubin AST ALT Alkaline Phosphatase Ammonia Troponin T C-Reactive Protein Total Protein Albumin Prealbumin 0.120 L TSH Crossmatch 08/30/16 08/30/16 08/30/16 10:30 10:30 11:12 WBC 11.1 H RBC 3.16 L Hgb 8.7 L Hct 29.9 L MCH MCHC 29 L RDW 25.0 H Plt Count Seg Neutrophils % 78.6 H Seg Neuts % (Manual) Nucleated RBC % Seg Neutrophils # 8.7 H Seg Neutrophils # Man PT INR POC ABG pH POC ABG pCO2 POC ABG pO2 Sodium 135 L Potassium Chloride Carbon Dioxide 20 L BUN Creatinine 1.5 H Glucose 148 H POC Glucose 142 H Lactic Acid Calcium 7.2 L Magnesium Total Bilirubin 1.30 H AST 143 H ALT Alkaline Phosphatase 392 H Ammonia Troponin T C-Reactive Protein Total Protein 6.1 L Albumin 1.2 L Prealbumin TSH Crossmatch 08/30/16 08/30/16 08/30/16 17:41 18:03 18:18 WBC RBC Hgb Hct MCH MCHC RDW Plt Count Seg Neutrophils % Seg Neuts % (Manual) Nucleated RBC % Seg Neutrophils # Seg Neutrophils # Man PT INR POC ABG pH 7.316 L POC ABG pCO2 POC ABG pO2 44 L 59 L Sodium Potassium Chloride Carbon Dioxide BUN Creatinine Glucose POC Glucose 150 H Lactic Acid Calcium Magnesium Total Bilirubin AST ALT Alkaline Phosphatase Ammonia Troponin T C-Reactive Protein Total Protein Albumin Prealbumin TSH Crossmatch 08/30/16 08/30/16 08/31/16 22:20 22:20 00:11 WBC RBC Hgb Hct MCH MCHC RDW Plt Count Seg Neutrophils % Seg Neuts % (Manual) Nucleated RBC % Seg Neutrophils # Seg Neutrophils # Man PT INR POC ABG pH POC ABG pCO2 POC ABG pO2 Sodium Potassium Chloride Carbon Dioxide BUN Creatinine Glucose POC Glucose 133 H Lactic Acid 2.30 H* Calcium Magnesium Total Bilirubin AST ALT Alkaline Phosphatase Ammonia Troponin T C-Reactive Protein 10.20 H Total Protein Albumin Prealbumin TSH Crossmatch 08/31/16 08/31/16 08/31/16 04:20 04:20 04:20 WBC 18.3 H RBC 3.19 L Hgb 8.8 L Hct 30.0 L MCH 27 L MCHC 29 L RDW 23.9 H Plt Count Seg Neutrophils % Seg Neuts % (Manual) Nucleated RBC % Seg Neutrophils # Seg Neutrophils # Man PT 16.8 H INR 1.37 H POC ABG pH POC ABG pCO2 POC ABG pO2 Sodium 136 L Potassium Chloride Carbon Dioxide 19 L BUN Creatinine 1.5 H Glucose 125 H POC Glucose Lactic Acid Calcium 7.0 L Magnesium Total Bilirubin 1.50 H AST 131 H ALT Alkaline Phosphatase 431 H Ammonia Troponin T C-Reactive Protein Total Protein 6.2 L Albumin 1.2 L Prealbumin TSH Crossmatch 08/31/16 08/31/16 08/31/16 04:20 05:22 05:24 WBC RBC Hgb Hct MCH MCHC RDW Plt Count Seg Neutrophils % Seg Neuts % (Manual) Nucleated RBC % Seg Neutrophils # Seg Neutrophils # Man PT INR POC ABG pH POC ABG pCO2 POC ABG pO2 142 H Sodium Potassium Chloride Carbon Dioxide BUN Creatinine Glucose POC Glucose 123 H Lactic Acid Calcium Magnesium Total Bilirubin AST ALT Alkaline Phosphatase Ammonia 70.0 H Troponin T C-Reactive Protein Total Protein Albumin Prealbumin TSH Crossmatch 08/31/16 08/31/16 08/31/16 12:10 15:45 17:38 WBC RBC Hgb Hct MCH MCHC RDW Plt Count Seg Neutrophils % Seg Neuts % (Manual) Nucleated RBC % Seg Neutrophils # Seg Neutrophils # Cristian PT INR POC ABG pH POC ABG pCO2 POC ABG pO2 Sodium 136 L Potassium Chloride Carbon Dioxide 21 L BUN Creatinine 1.5 H Glucose 160 H POC Glucose 147 H 151 H Lactic Acid Calcium 6.9 L Magnesium Total Bilirubin AST ALT Alkaline Phosphatase Ammonia Troponin T 0.109 H* D C-Reactive Protein Total Protein Albumin Prealbumin TSH Crossmatch 09/01/16 09/01/16 09/01/16 00:09 04:00 04:00 WBC 14.8 H RBC 2.89 L Hgb 7.8 L Hct 27.2 L MCH 27 L MCHC 29 L RDW 24.4 H Plt Count Seg Neutrophils % Seg Neuts % (Manual) Nucleated RBC % Seg Neutrophils # Seg Neutrophils # Man PT 18.2 H INR 1.51 H POC ABG pH POC ABG pCO2 POC ABG pO2 Sodium Potassium Chloride Carbon Dioxide BUN Creatinine Glucose POC Glucose 192 H Lactic Acid Calcium Magnesium Total Bilirubin AST ALT Alkaline Phosphatase Ammonia Troponin T C-Reactive Protein Total Protein Albumin Prealbumin TSH Crossmatch 09/01/16 09/01/16 09/01/16 04:00 05:28 11:28 WBC RBC Hgb Hct MCH MCHC RDW Plt Count Seg Neutrophils % Seg Neuts % (Manual) Nucleated RBC % Seg Neutrophils # Seg Neutrophils # Man PT INR POC ABG pH POC ABG pCO2 POC ABG pO2 Sodium Potassium Chloride Carbon Dioxide 20 L BUN Creatinine 1.6 H Glucose 183 H POC Glucose 189 H 207 H Lactic Acid Calcium 6.9 L Magnesium Total Bilirubin 1.30 H AST 138 H ALT Alkaline Phosphatase 520 H Ammonia Troponin T C-Reactive Protein Total Protein 6.1 L Albumin 1.2 L Prealbumin TSH Crossmatch 09/01/16 09/01/16 09/02/16 16:56 23:49 05:00 WBC RBC Hgb Hct MCH MCHC RDW Plt Count Seg Neutrophils % Seg Neuts % (Manual) Nucleated RBC % Seg Neutrophils # Seg Neutrophils # Man PT 18.0 H INR 1.49 H POC ABG pH POC ABG pCO2 POC ABG pO2 Sodium Potassium Chloride Carbon Dioxide BUN Creatinine Glucose POC Glucose 250 H 307 H Lactic Acid Calcium Magnesium Total Bilirubin AST ALT Alkaline Phosphatase Ammonia Troponin T C-Reactive Protein Total Protein Albumin Prealbumin TSH Crossmatch 09/02/16 09/02/16 09/02/16 05:00 05:00 05:45 WBC 12.3 H RBC 2.57 L Hgb 7.1 L Hct 23.4 L MCH MCHC RDW 23.9 H Plt Count Seg Neutrophils % Seg Neuts % (Manual) 72.0 H Nucleated RBC % 25.0 H Seg Neutrophils # Seg Neutrophils # Man 8.9 H PT INR POC ABG pH POC ABG pCO2 POC ABG pO2 Sodium Potassium Chloride Carbon Dioxide BUN Creatinine 1.4 H Glucose 299 H POC Glucose 327 H Lactic Acid Calcium 7.0 L Magnesium Total Bilirubin AST ALT Alkaline Phosphatase Ammonia Troponin T C-Reactive Protein Total Protein Albumin Prealbumin TSH Crossmatch 09/02/16 09/02/16 09/02/16 12:22 17:22 23:24 WBC RBC Hgb Hct MCH MCHC RDW Plt Count Seg Neutrophils % Seg Neuts % (Manual) Nucleated RBC % Seg Neutrophils # Seg Neutrophils # Man PT INR POC ABG pH POC ABG pCO2 POC ABG pO2 Sodium Potassium Chloride Carbon Dioxide BUN Creatinine Glucose POC Glucose 310 H 358 H 286 H Lactic Acid Calcium Magnesium Total Bilirubin AST ALT Alkaline Phosphatase Ammonia Troponin T C-Reactive Protein Total Protein Albumin Prealbumin TSH Crossmatch 09/03/16 09/03/16 09/03/16 04:10 04:10 04:10 WBC 11.8 H RBC 2.29 L Hgb 6.1 L Hct 21.0 L MCH 27 L MCHC 29 L RDW 24.1 H Plt Count Seg Neutrophils % Seg Neuts % (Manual) Nucleated RBC % Seg Neutrophils # Seg Neutrophils # Man PT 17.6 H INR 1.45 H POC ABG pH POC ABG pCO2 POC ABG pO2 Sodium Potassium Chloride Carbon Dioxide BUN Creatinine 1.4 H Glucose 301 H POC Glucose Lactic Acid Calcium 7.0 L Magnesium Total Bilirubin AST ALT Alkaline Phosphatase Ammonia Troponin T C-Reactive Protein Total Protein Albumin Prealbumin TSH Crossmatch 09/03/16 09/03/16 09/03/16 05:59 11:36 17:42 WBC RBC Hgb Hct MCH MCHC RDW Plt Count Seg Neutrophils % Seg Neuts % (Manual) Nucleated RBC % Seg Neutrophils # Seg Neutrophils # Man PT INR POC ABG pH POC ABG pCO2 POC ABG pO2 Sodium Potassium Chloride Carbon Dioxide BUN Creatinine Glucose POC Glucose 351 H 285 H 259 H Lactic Acid Calcium Magnesium Total Bilirubin AST ALT Alkaline Phosphatase Ammonia Troponin T C-Reactive Protein Total Protein Albumin Prealbumin TSH Crossmatch 09/03/16 09/04/16 09/04/16 23:00 04:27 05:36 WBC RBC Hgb Hct MCH MCHC RDW Plt Count Seg Neutrophils % Seg Neuts % (Manual) Nucleated RBC % Seg Neutrophils # Seg Neutrophils # Man PT INR POC ABG pH 7.544 H POC ABG pCO2 30.8 L POC ABG pO2 78 L Sodium Potassium Chloride Carbon Dioxide BUN Creatinine Glucose POC Glucose 192 H 228 H Lactic Acid Calcium Magnesium Total Bilirubin AST ALT Alkaline Phosphatase Ammonia Troponin T C-Reactive Protein Total Protein Albumin Prealbumin TSH Crossmatch 09/04/16 09/04/16 09/04/16 06:37 06:37 06:39 WBC 21.0 H RBC 2.22 L Hgb 6.0 L Hct 20.1 L MCH 27 L MCHC RDW 24.3 H Plt Count Seg Neutrophils % Seg Neuts % (Manual) Nucleated RBC % Seg Neutrophils # Seg Neutrophils # Man PT 16.8 H INR 1.37 H POC ABG pH POC ABG pCO2 POC ABG pO2 Sodium Potassium Chloride Carbon Dioxide BUN Creatinine 1.4 H Glucose 201 H POC Glucose Lactic Acid Calcium 7.1 L Magnesium Total Bilirubin AST ALT Alkaline Phosphatase Ammonia Troponin T C-Reactive Protein Total Protein Albumin Prealbumin TSH Crossmatch 09/04/16 09/04/16 09/04/16 12:14 15:47 17:41 WBC RBC Hgb Hct MCH MCHC RDW Plt Count Seg Neutrophils % Seg Neuts % (Manual) Nucleated RBC % Seg Neutrophils # Seg Neutrophils # Man PT INR POC ABG pH POC ABG pCO2 POC ABG pO2 Sodium Potassium Chloride Carbon Dioxide BUN Creatinine Glucose POC Glucose 176 H 218 H Lactic Acid Calcium Magnesium Total Bilirubin AST ALT Alkaline Phosphatase Ammonia Troponin T C-Reactive Protein Total Protein Albumin Prealbumin TSH Crossmatch See Detail 09/04/16 09/04/16 09/05/16 21:59 23:48 04:30 WBC RBC Hgb Hct MCH MCHC RDW Plt Count Seg Neutrophils % Seg Neuts % (Manual) Nucleated RBC % Seg Neutrophils # Seg Neutrophils # Man PT 17.2 H INR 1.41 H POC ABG pH POC ABG pCO2 POC ABG pO2 Sodium Potassium Chloride Carbon Dioxide BUN Creatinine Glucose POC Glucose 170 H 121 H Lactic Acid Calcium Magnesium Total Bilirubin AST ALT Alkaline Phosphatase Ammonia Troponin T C-Reactive Protein Total Protein Albumin Prealbumin TSH Crossmatch 09/05/16 09/05/16 09/05/16 04:30 04:30 05:09 WBC 31.9 H RBC 3.11 L Hgb 8.5 L Hct 28.3 L D MCH 27 L MCHC RDW 21.0 H Plt Count Seg Neutrophils % Seg Neuts % (Manual) Nucleated RBC % Seg Neutrophils # Seg Neutrophils # Man PT INR POC ABG pH 7.226 L POC ABG pCO2 61.6 H POC ABG pO2 68 L Sodium 134 L Potassium 5.5 H Chloride 96.6 L Carbon Dioxide BUN 23 H Creatinine 1.6 H Glucose 116 H POC Glucose Lactic Acid Calcium 7.1 L Magnesium Total Bilirubin AST ALT Alkaline Phosphatase Ammonia Troponin T C-Reactive Protein Total Protein Albumin Prealbumin TSH Crossmatch 09/05/16 09/05/16 09/05/16 05:33 12:08 17:32 WBC RBC Hgb Hct MCH MCHC RDW Plt Count Seg Neutrophils % Seg Neuts % (Manual) Nucleated RBC % Seg Neutrophils # Seg Neutrophils # Man PT INR POC ABG pH POC ABG pCO2 POC ABG pO2 Sodium Potassium Chloride Carbon Dioxide BUN Creatinine Glucose POC Glucose 114 H 147 H 174 H Lactic Acid Calcium Magnesium Total Bilirubin AST ALT Alkaline Phosphatase Ammonia Troponin T C-Reactive Protein Total Protein Albumin Prealbumin TSH Crossmatch 09/06/16 09/06/16 09/06/16 03:30 03:30 03:30 WBC 25.4 H RBC 2.57 L Hgb 7.2 L Hct 22.8 L MCH MCHC RDW 20.9 H Plt Count 138 L Seg Neutrophils % Seg Neuts % (Manual) Nucleated RBC % Seg Neutrophils # Seg Neutrophils # Man PT 16.4 H INR 1.33 H POC ABG pH POC ABG pCO2 POC ABG pO2 Sodium Potassium Chloride Carbon Dioxide BUN 36 H Creatinine 1.9 H Glucose POC Glucose Lactic Acid Calcium 7.2 L Magnesium Total Bilirubin AST ALT Alkaline Phosphatase Ammonia Troponin T C-Reactive Protein Total Protein Albumin Prealbumin TSH Crossmatch 09/06/16 09/06/16 09/06/16 11:07 12:03 14:44 WBC RBC Hgb Hct MCH MCHC RDW Plt Count Seg Neutrophils % Seg Neuts % (Manual) Nucleated RBC % Seg Neutrophils # Seg Neutrophils # Man PT INR POC ABG pH POC ABG pCO2 POC ABG pO2 Sodium Potassium Chloride Carbon Dioxide BUN Creatinine Glucose POC Glucose 61 L 55 L Lactic Acid Calcium Magnesium Total Bilirubin AST ALT Alkaline Phosphatase Ammonia Troponin T 0.080 H C-Reactive Protein Total Protein Albumin Prealbumin TSH Crossmatch 09/06/16 09/06/16 09/07/16 21:05 23:53 03:36 WBC RBC Hgb Hct MCH MCHC RDW Plt Count Seg Neutrophils % Seg Neuts % (Manual) Nucleated RBC % Seg Neutrophils # Seg Neutrophils # Man PT INR POC ABG pH POC ABG pCO2 POC ABG pO2 Sodium Potassium Chloride Carbon Dioxide BUN Creatinine Glucose POC Glucose 140 H 178 H 243 H Lactic Acid Calcium Magnesium Total Bilirubin AST ALT Alkaline Phosphatase Ammonia Troponin T C-Reactive Protein Total Protein Albumin Prealbumin TSH Crossmatch 09/07/16 09/07/16 09/07/16 03:42 03:42 05:04 WBC 17.3 H RBC 2.69 L Hgb 7.6 L Hct 23.8 L MCH MCHC RDW 20.5 H Plt Count 137 L Seg Neutrophils % Seg Neuts % (Manual) Nucleated RBC % Seg Neutrophils # Seg Neutrophils # Man PT INR POC ABG pH POC ABG pCO2 POC ABG pO2 Sodium Potassium 3.3 L Chloride Carbon Dioxide BUN 38 H Creatinine 1.6 H Glucose 201 H POC Glucose 241 H Lactic Acid Calcium 7.4 L Magnesium Total Bilirubin AST ALT Alkaline Phosphatase Ammonia Troponin T C-Reactive Protein Total Protein Albumin Prealbumin TSH Crossmatch 09/07/16 09/07/16 09/07/16 11:46 17:41 23:18 WBC RBC Hgb Hct MCH MCHC RDW Plt Count Seg Neutrophils % Seg Neuts % (Manual) Nucleated RBC % Seg Neutrophils # Seg Neutrophils # Man PT INR POC ABG pH POC ABG pCO2 POC ABG pO2 Sodium Potassium Chloride Carbon Dioxide BUN Creatinine Glucose POC Glucose 313 H 227 H 116 H Lactic Acid Calcium Magnesium Total Bilirubin AST ALT Alkaline Phosphatase Ammonia Troponin T C-Reactive Protein Total Protein Albumin Prealbumin TSH Crossmatch 09/08/16 09/08/16 09/08/16 04:00 04:00 05:15 WBC 18.4 H RBC 2.43 L Hgb 6.9 L Hct 21.5 L MCH MCHC RDW 20.5 H Plt Count 119 L Seg Neutrophils % Seg Neuts % (Manual) Nucleated RBC % Seg Neutrophils # Seg Neutrophils # Man PT INR POC ABG pH 7.458 H POC ABG pCO2 POC ABG pO2 177 H Sodium Potassium 3.5 L Chloride Carbon Dioxide BUN 37 H Creatinine 1.3 H Glucose POC Glucose Lactic Acid Calcium 7.1 L Magnesium Total Bilirubin AST ALT Alkaline Phosphatase Ammonia Troponin T C-Reactive Protein Total Protein Albumin Prealbumin TSH Crossmatch 09/08/16 09/08/16 09/08/16 11:00 15:58 23:16 WBC RBC Hgb Hct MCH MCHC RDW Plt Count Seg Neutrophils % Seg Neuts % (Manual) Nucleated RBC % Seg Neutrophils # Seg Neutrophils # Man PT INR POC ABG pH POC ABG pCO2 POC ABG pO2 113 H Sodium Potassium Chloride Carbon Dioxide BUN Creatinine Glucose POC Glucose 40 L Lactic Acid Calcium Magnesium Total Bilirubin AST ALT Alkaline Phosphatase Ammonia Troponin T C-Reactive Protein Total Protein Albumin Prealbumin TSH Crossmatch See Detail 09/09/16 09/09/16 09/09/16 05:02 12:33 18:10 WBC RBC Hgb Hct MCH MCHC RDW Plt Count Seg Neutrophils % Seg Neuts % (Manual) Nucleated RBC % Seg Neutrophils # Seg Neutrophils # Man PT INR POC ABG pH 7.454 H POC ABG pCO2 POC ABG pO2 75 L Sodium Potassium Chloride Carbon Dioxide BUN Creatinine Glucose POC Glucose 59 L Lactic Acid Calcium Magnesium Total Bilirubin AST ALT Alkaline Phosphatase Ammonia Troponin T C-Reactive Protein Total Protein Albumin Prealbumin TSH 5.220 H Crossmatch 09/09/16 09/09/16 09/09/16 18:10 18:10 18:42 WBC 17.0 H RBC 2.90 L Hgb 8.5 L Hct 26.1 L MCH MCHC RDW 17.9 H Plt Count 126 L Seg Neutrophils % Seg Neuts % (Manual) Nucleated RBC % Seg Neutrophils # Seg Neutrophils # Man PT INR POC ABG pH POC ABG pCO2 POC ABG pO2 Sodium Potassium Chloride Carbon Dioxide BUN 36 H Creatinine Glucose 133 H POC Glucose 148 H Lactic Acid Calcium 6.9 L Magnesium Total Bilirubin AST 253 H ALT 184 H Alkaline Phosphatase 729 H Ammonia Troponin T C-Reactive Protein Total Protein 5.1 L Albumin 1.7 L Prealbumin TSH Crossmatch 09/09/16 09/10/16 09/10/16 23:22 05:10 11:43 WBC RBC Hgb Hct MCH MCHC RDW Plt Count Seg Neutrophils % Seg Neuts % (Manual) Nucleated RBC % Seg Neutrophils # Seg Neutrophils # Man PT INR POC ABG pH POC ABG pCO2 POC ABG pO2 Sodium Potassium Chloride Carbon Dioxide BUN 35 H Creatinine Glucose 240 H POC Glucose 170 H 268 H Lactic Acid Calcium 6.8 L Magnesium Total Bilirubin AST 226 H ALT 171 H Alkaline Phosphatase 710 H Ammonia Troponin T C-Reactive Protein Total Protein 5.2 L Albumin 1.7 L Prealbumin TSH Crossmatch 09/10/16 09/11/16 09/11/16 17:51 01:07 05:00 WBC RBC Hgb Hct MCH MCHC RDW Plt Count Seg Neutrophils % Seg Neuts % (Manual) Nucleated RBC % Seg Neutrophils # Seg Neutrophils # Man PT INR POC ABG pH POC ABG pCO2 POC ABG pO2 Sodium Potassium 2.9 L* Chloride Carbon Dioxide BUN 35 H Creatinine Glucose 274 H POC Glucose 334 H 223 H Lactic Acid Calcium 6.9 L Magnesium Total Bilirubin AST 167 H ALT 145 H Alkaline Phosphatase 631 H Ammonia Troponin T C-Reactive Protein Total Protein 5.1 L Albumin 1.6 L Prealbumin TSH Crossmatch 09/11/16 09/11/16 09/11/16 05:01 12:16 17:12 WBC RBC Hgb Hct MCH MCHC RDW Plt Count Seg Neutrophils % Seg Neuts % (Manual) Nucleated RBC % Seg Neutrophils # Seg Neutrophils # Man PT INR POC ABG pH POC ABG pCO2 POC ABG pO2 Sodium Potassium Chloride Carbon Dioxide BUN Creatinine Glucose POC Glucose 305 H 219 H 171 H Lactic Acid Calcium Magnesium Total Bilirubin AST ALT Alkaline Phosphatase Ammonia Troponin T C-Reactive Protein Total Protein Albumin Prealbumin TSH Crossmatch 09/11/16 09/12/16 09/12/16 23:35 03:33 05:00 WBC 12.9 H RBC 2.81 L Hgb 8.2 L Hct 25.4 L MCH MCHC RDW 17.9 H Plt Count Seg Neutrophils % Seg Neuts % (Manual) Nucleated RBC % Seg Neutrophils # Seg Neutrophils # Man PT INR POC ABG pH POC ABG pCO2 POC ABG pO2 Sodium Potassium Chloride Carbon Dioxide BUN Creatinine Glucose POC Glucose 216 H 183 H Lactic Acid Calcium Magnesium Total Bilirubin AST ALT Alkaline Phosphatase Ammonia Troponin T C-Reactive Protein Total Protein Albumin Prealbumin TSH Crossmatch 09/12/16 09/12/16 09/12/16 05:00 15:15 18:30 WBC RBC Hgb Hct MCH MCHC RDW Plt Count Seg Neutrophils % Seg Neuts % (Manual) Nucleated RBC % Seg Neutrophils # Seg Neutrophils # Man PT INR POC ABG pH POC ABG pCO2 POC ABG pO2 Sodium Potassium 3.0 L 3.4 L Chloride Carbon Dioxide BUN 33 H Creatinine 0.5 L Glucose POC Glucose 215 H Lactic Acid Calcium 7.0 L Magnesium Total Bilirubin AST ALT Alkaline Phosphatase Ammonia Troponin T C-Reactive Protein Total Protein Albumin Prealbumin TSH Crossmatch 09/12/16 09/13/16 09/13/16 23:17 05:50 05:50 WBC RBC 2.93 L Hgb 8.8 L Hct 26.7 L MCH MCHC RDW 18.0 H Plt Count Seg Neutrophils % Seg Neuts % (Manual) Nucleated RBC % Seg Neutrophils # Seg Neutrophils # Man PT INR POC ABG pH POC ABG pCO2 POC ABG pO2 Sodium Potassium 2.6 L* D Chloride Carbon Dioxide BUN 29 H Creatinine 0.5 L Glucose 106 H POC Glucose 155 H Lactic Acid Calcium 7.3 L Magnesium Total Bilirubin AST ALT Alkaline Phosphatase Ammonia Troponin T C-Reactive Protein Total Protein Albumin Prealbumin TSH Crossmatch 09/13/16 09/13/16 09/13/16 05:53 11:43 15:07 WBC RBC Hgb Hct MCH MCHC RDW Plt Count Seg Neutrophils % Seg Neuts % (Manual) Nucleated RBC % Seg Neutrophils # Seg Neutrophils # Man PT INR POC ABG pH POC ABG pCO2 POC ABG pO2 Sodium Potassium 2.8 L* Chloride Carbon Dioxide BUN Creatinine Glucose POC Glucose 119 H 129 H Lactic Acid Calcium Magnesium Total Bilirubin AST ALT Alkaline Phosphatase Ammonia Troponin T C-Reactive Protein Total Protein Albumin Prealbumin TSH Crossmatch 09/13/16 09/13/16 09/14/16 17:39 23:30 05:34 WBC RBC Hgb Hct MCH MCHC RDW Plt Count Seg Neutrophils % Seg Neuts % (Manual) Nucleated RBC % Seg Neutrophils # Seg Neutrophils # Man PT INR POC ABG pH POC ABG pCO2 POC ABG pO2 Sodium Potassium Chloride Carbon Dioxide BUN Creatinine Glucose POC Glucose 144 H 196 H 175 H Lactic Acid Calcium Magnesium Total Bilirubin AST ALT Alkaline Phosphatase Ammonia Troponin T C-Reactive Protein Total Protein Albumin Prealbumin TSH Crossmatch 09/14/16 09/14/16 09/14/16 06:24 06:24 12:41 WBC RBC 2.82 L Hgb 8.4 L Hct 25.7 L MCH MCHC RDW 18.0 H Plt Count Seg Neutrophils % Seg Neuts % (Manual) Nucleated RBC % Seg Neutrophils # Seg Neutrophils # Man PT INR POC ABG pH POC ABG pCO2 POC ABG pO2 Sodium Potassium 2.9 L* Chloride 107.3 H Carbon Dioxide BUN 26 H Creatinine 0.4 L Glucose 169 H POC Glucose 184 H Lactic Acid Calcium 7.5 L Magnesium Total Bilirubin AST ALT Alkaline Phosphatase Ammonia Troponin T C-Reactive Protein Total Protein Albumin Prealbumin TSH Crossmatch 09/14/16 09/14/16 09/14/16 14:50 17:57 23:34 WBC RBC Hgb Hct MCH MCHC RDW Plt Count Seg Neutrophils % Seg Neuts % (Manual) Nucleated RBC % Seg Neutrophils # Seg Neutrophils # Man PT INR POC ABG pH POC ABG pCO2 POC ABG pO2 Sodium Potassium 3.3 L Chloride Carbon Dioxide BUN Creatinine Glucose POC Glucose 191 H 178 H Lactic Acid Calcium Magnesium Total Bilirubin AST ALT Alkaline Phosphatase Ammonia Troponin T C-Reactive Protein Total Protein Albumin Prealbumin TSH Crossmatch 09/15/16 09/15/16 09/15/16 05:02 07:57 07:57 WBC RBC 3.04 L Hgb 9.2 L Hct 28.2 L MCH MCHC RDW 18.8 H Plt Count Seg Neutrophils % Seg Neuts % (Manual) Nucleated RBC % Seg Neutrophils # Seg Neutrophils # Man PT INR POC ABG pH POC ABG pCO2 POC ABG pO2 Sodium Potassium Chloride 107.2 H Carbon Dioxide BUN 26 H Creatinine 0.4 L Glucose 160 H POC Glucose 192 H Lactic Acid Calcium 7.7 L Magnesium Total Bilirubin AST ALT Alkaline Phosphatase Ammonia Troponin T C-Reactive Protein Total Protein Albumin Prealbumin TSH Crossmatch 09/15/16 09/15/16 09/15/16 11:23 17:51 23:45 WBC RBC Hgb Hct MCH MCHC RDW Plt Count Seg Neutrophils % Seg Neuts % (Manual) Nucleated RBC % Seg Neutrophils # Seg Neutrophils # Man PT INR POC ABG pH POC ABG pCO2 POC ABG pO2 Sodium Potassium Chloride Carbon Dioxide BUN Creatinine Glucose POC Glucose 232 H 240 H 251 H Lactic Acid Calcium Magnesium Total Bilirubin AST ALT Alkaline Phosphatase Ammonia Troponin T C-Reactive Protein Total Protein Albumin Prealbumin TSH Crossmatch 09/16/16 09/16/16 09/16/16 04:55 04:55 05:38 WBC RBC 2.84 L Hgb 8.6 L Hct 26.2 L MCH MCHC RDW 18.8 H Plt Count Seg Neutrophils % Seg Neuts % (Manual) Nucleated RBC % Seg Neutrophils # Seg Neutrophils # Man PT INR POC ABG pH POC ABG pCO2 POC ABG pO2 Sodium Potassium 3.1 L Chloride 107.6 H Carbon Dioxide BUN 25 H Creatinine 0.3 L Glucose 134 H POC Glucose 157 H Lactic Acid Calcium 7.6 L Magnesium Total Bilirubin AST ALT Alkaline Phosphatase Ammonia Troponin T C-Reactive Protein Total Protein Albumin Prealbumin TSH Crossmatch 09/16/16 09/16/16 09/16/16 11:53 17:56 23:54 WBC RBC Hgb Hct MCH MCHC RDW Plt Count Seg Neutrophils % Seg Neuts % (Manual) Nucleated RBC % Seg Neutrophils # Seg Neutrophils # Man PT INR POC ABG pH POC ABG pCO2 POC ABG pO2 Sodium Potassium Chloride Carbon Dioxide BUN Creatinine Glucose POC Glucose 137 H 138 H 179 H Lactic Acid Calcium Magnesium Total Bilirubin AST ALT Alkaline Phosphatase Ammonia Troponin T C-Reactive Protein Total Protein Albumin Prealbumin TSH Crossmatch 09/17/16 09/17/16 09/17/16 05:00 05:00 05:28 WBC RBC 2.77 L Hgb 8.2 L Hct 25.9 L MCH MCHC RDW 19.1 H Plt Count Seg Neutrophils % Seg Neuts % (Manual) Nucleated RBC % Seg Neutrophils # Seg Neutrophils # Man PT INR POC ABG pH POC ABG pCO2 POC ABG pO2 Sodium Potassium 3.5 L Chloride 108.4 H Carbon Dioxide BUN 29 H Creatinine 0.3 L Glucose 117 H POC Glucose 142 H Lactic Acid Calcium 7.4 L Magnesium Total Bilirubin AST ALT Alkaline Phosphatase Ammonia Troponin T C-Reactive Protein Total Protein Albumin Prealbumin TSH Crossmatch 09/17/16 09/17/16 09/18/16 18:07 23:31 06:29 WBC RBC Hgb Hct MCH MCHC RDW Plt Count Seg Neutrophils % Seg Neuts % (Manual) Nucleated RBC % Seg Neutrophils # Seg Neutrophils # Man PT INR POC ABG pH POC ABG pCO2 POC ABG pO2 Sodium Potassium Chloride Carbon Dioxide BUN Creatinine Glucose POC Glucose 173 H 240 H 282 H Lactic Acid Calcium Magnesium Total Bilirubin AST ALT Alkaline Phosphatase Ammonia Troponin T C-Reactive Protein Total Protein Albumin Prealbumin TSH Crossmatch 09/18/16 09/18/16 09/18/16 06:30 12:21 17:55 WBC RBC Hgb Hct MCH MCHC RDW Plt Count Seg Neutrophils % Seg Neuts % (Manual) Nucleated RBC % Seg Neutrophils # Seg Neutrophils # Man PT INR POC ABG pH POC ABG pCO2 POC ABG pO2 Sodium 148 H Potassium Chloride 110.7 H Carbon Dioxide BUN 30 H Creatinine 0.4 L Glucose 249 H POC Glucose 248 H 255 H Lactic Acid Calcium 7.4 L Magnesium 1.60 L Total Bilirubin AST ALT Alkaline Phosphatase Ammonia Troponin T C-Reactive Protein Total Protein Albumin Prealbumin TSH Crossmatch 09/19/16 09/19/16 09/19/16 00:09 04:45 05:11 WBC RBC Hgb Hct MCH MCHC RDW Plt Count Seg Neutrophils % Seg Neuts % (Manual) Nucleated RBC % Seg Neutrophils # Seg Neutrophils # Man PT INR POC ABG pH POC ABG pCO2 POC ABG pO2 Sodium 146 H Potassium Chloride 110.8 H Carbon Dioxide BUN 34 H Creatinine 0.4 L Glucose 278 H POC Glucose 324 H 278 H Lactic Acid Calcium 7.3 L Magnesium Total Bilirubin AST ALT Alkaline Phosphatase Ammonia Troponin T C-Reactive Protein Total Protein Albumin Prealbumin TSH Crossmatch 09/19/16 09/19/16 09/19/16 11:12 12:09 17:10 WBC RBC Hgb Hct MCH MCHC RDW Plt Count Seg Neutrophils % Seg Neuts % (Manual) Nucleated RBC % Seg Neutrophils # Seg Neutrophils # Man PT INR POC ABG pH POC ABG pCO2 POC ABG pO2 Sodium Potassium Chloride Carbon Dioxide BUN Creatinine Glucose POC Glucose 306 H 225 H 329 H Lactic Acid Calcium Magnesium Total Bilirubin AST ALT Alkaline Phosphatase Ammonia Troponin T C-Reactive Protein Total Protein Albumin Prealbumin TSH Crossmatch 09/19/16 09/20/16 09/20/16 23:34 04:52 05:00 WBC RBC Hgb Hct MCH MCHC RDW Plt Count Seg Neutrophils % Seg Neuts % (Manual) Nucleated RBC % Seg Neutrophils # Seg Neutrophils # Man PT INR POC ABG pH POC ABG pCO2 POC ABG pO2 Sodium Potassium Chloride 108.6 H Carbon Dioxide BUN 35 H Creatinine 0.4 L Glucose 370 H POC Glucose 376 H 374 H Lactic Acid Calcium 7.3 L Magnesium Total Bilirubin AST ALT Alkaline Phosphatase Ammonia Troponin T C-Reactive Protein Total Protein Albumin Prealbumin TSH Crossmatch Allied health notes reviewed: RT
--- NOTE | 2016-09-20 16:01 | Progress Note ---
Assessment and Plan Assessment and plan: Patient is a 61-year-old morbid obese woman with a history of congestive heart failure, severe protein calorie malnutrition (bilateral christianity muscle severe wasting, hypothenar muscle wasting) with BMI of 81.6, functional quadriplegia, type 2 diabetes mellitus, hypertension, multiple skin breakdown between legs and thighs who presented to the hospital via EMS with AMS. 2D echocardiogram with ejection fraction of 50-55%. During the past admission, patient was recommended for placement but refused. On presentation to ED, patient was felt to be unable to maintain her airways and intubated the ER since 08/29/16. 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, poa: supportative care -Acute on chronic diastolic congestive heart failure: treated with diuresis -Acute on chronic respiratory failure, intubated > 96 hours -Septic shock off IV solucorticef and midodrine -Severe anemia s/p blood transfusion: monitor cbc closely altered -Paroxysmal atrial fibrillation -Non-ST elevated NC type 2: Conservative management -Acute on chronic kidney disease III, likely secondary to vasomotor nephropathy- POA -Transaminitis-elevated alkaline phosphatase and AST: continue to monitor -Severe protein calorie malnutrition albumin 1.2 -Morbid obesity BMI 81.6 -Mulitple PRESSURE ULCERS-POA: consulted wound care -uncontrolled dm: increased ssi -Acute anemia with drop in HCT resolved, received 5 units of PRBC transfused -Levaphed still off -Unable to get CT head due to weight issues -Dvt prophylaxis: sq lovenox per [facility] Disposition: LTAC once accepted DNR 09/04/16 , boyfriend, Tad agreed to blood transfusion, hgb is 6.0 will transfuse 2 units==>h/h steady, continue to monitor 09/05/16: Overnight was very eventful. New issue: Status epilepticus most likely due to anoxic brain injury, poa. She is back on 8 mcg of Levophed, which had weaned off up to the point of seizure activity Patient had status epilepticus before receiving blood transfusions. She was given multiple doses of Ativan and was still having breakthrough seizures. She was given phenobarbital and Dilantin but still having seizures. I started propofol drip which is helping. She still on IV Ativan drip also. Difficult family dynamics: Her son (she has multiple children), Srikanth and sister Leanne were at her bedside and well as her boyfriend who is not her legal , which he told me. They are upset because they didn't know patient was in the hospital. It appears the gentleman in the room is her boyfriend and not her legal He also did not notify the family the patient was here. That gentleman who is her boyfriend dropped the patient's wallet and our security called the number inside the wallet which was patient's mother's number and this is how the family found out that patient was in the hospital. I was told by RN, that patient has no , patient has 7 siblings and they are estranged from mother. No legal POA but sister Leanne is active in sister's life. Her boyfriend name is Tad Vieyra and he has consistently been at her beside, holding her hand and being supportive. 09/10/16 (resumed care): Trying to get to LTAC, still on 2 mcg of Levaphed but not sedated==>?Significant anoxic brain injury most likely poa, Ethic committee consulted because some family members want to withdraw. 09/11/16, Trach aspirated GNR, continue abx pending identification, off levaphed today. Trying to get to LTAC, they can trach her there. Only [facility] takes her insurance 09/12/16 Trach aspirate still pending, new issue of hypothermia, responded to [facility], tube feeding low rate due to high residuals, abd xray unremarkable. Potassium replaced. No restraints needs, no sedation needed, poor prognosis 09/15/16(resumed care): new issue seizure, gave 1mg iv ativan x 1. Awaiting to go to [facility], they want to trach and peg when she gets there. 09/16-11/26: cpm, no new seizures. 09/18/16: [facility] did not accept patient, so trach and peg here. Patient has been intubated since 08/29/16. 09/19/16 no new issue, trying to wean 09/20/16: d/w boyfriend at bedside. He believes she is having purposefully spontaneous movements, like blinking. Heart rate went up to 150s but spontaneously went down without any medications given. History Interval history: Patient seen and examined. Follow up on respiratory failure. Patient still intubated. Overnight uneventful. Hospitalist Physical - Physical exam Narrative exam: GEN: Critically ill, morbid obese BMI 81.6, intubated HEENT: Pupils are pinpoint and reactive, ET tube in place NECK: SUPPLE, NO THYROMEGALY, NO JVD, NO LAD CVS: regular irregular NORMAL S1S2 LUNGS/CHEST: TA B, NORMAL CHEST EXPANSION B, GOOD AIR ENTRY B ABD: SOFT, NONDISTENDED GBS, NO REBOUND OR GUARDING MSK: Spontaneous movement of extremities NEURO: CN 2-12 GROSSLY INTACT, doesn't follow commands PSY: Confused - Constitutional Vitals: Temp Pulse Resp BP Pulse Ox 98.8 F 81 25 H 121/55 100 09/20/16 12:00 09/20/16 15:01 09/20/16 15:01 09/20/16 15:01 09/20/16 15:01 General appearance: Present: other (morbidly obese) Results - Labs CBC & Chem 7: 09/17/16 05:00 09/20/16 05:00 Labs: Laboratory Last Values WBC 9.2 K/mm3 (4.5-11.0) 09/17/16 05:00 RBC 2.77 M/mm3 (3.65-5.03) L 09/17/16 05:00 Hgb 8.2 gm/dl (10.1-14.3) L 09/17/16 05:00 Hct 25.9 % (30.3-42.9) L 09/17/16 05:00 MCV 94 fl (79-97) 09/17/16 05:00 MCH 30 pg (28-32) 09/17/16 05:00 MCHC 32 % (30-34) 09/17/16 05:00 RDW 19.1 % (13.2-15.2) H 09/17/16 05:00 Plt Count 209 K/mm3 (140-440) 09/17/16 05:00 Lymph % (Auto) 15.6 % (13.4-35.0) 08/30/16 10:30 [place] % (Auto) 5.1 % (0.0-7.3) 08/30/16 10:30 Eos % (Auto) 0.6 % (0.0-4.3) 08/30/16 10:30 Baso % (Auto) 0.1 % (0.0-1.8) 08/30/16 10:30 Lymph # 1.7 K/mm3 (1.2-5.4) 08/30/16 10:30 [place] # 0.6 K/mm3 (0.0-0.8) 08/30/16 10:30 Eos # 0.1 K/mm3 (0.0-0.4) 08/30/16 10:30 Baso # 0.0 K/mm3 (0.0-0.1) 08/30/16 10:30 Add Manual Diff Complete 09/02/16 05:00 Total Counted 100 09/02/16 05:00 Seg Neutrophils % 78.6 % (40.0-70.0) H 08/30/16 10:30 Seg Neuts % (Manual) 72.0 % (40.0-70.0) H 09/02/16 05:00 Band Neutrophils % 9.0 % 09/02/16 05:00 Lymphocytes % (Manual) 15.0 % (13.4-35.0) 09/02/16 05:00 Reactive Lymphs % (Man) 0 % 09/02/16 05:00 Monocytes % (Manual) 4.0 % (0.0-7.3) 09/02/16 05:00 Eosinophils % (Manual) 0 % (0.0-4.3) 09/02/16 05:00 Basophils % (Manual) 0 % (0.0-1.8) 09/02/16 05:00 Metamyelocytes % 0 % 09/02/16 05:00 Myelocytes % 0 % 09/02/16 05:00 Promyelocytes % 0 % 09/02/16 05:00 Blast Cells % 0 % 09/02/16 05:00 Nucleated RBC % 25.0 % (0.0-0.9) H 09/02/16 05:00 Seg Neutrophils # 8.7 K/mm3 (1.8-7.7) H 08/30/16 10:30 Seg Neutrophils # Man 8.9 K/mm3 (1.8-7.7) H 09/02/16 05:00 Band Neutrophils # 1.1 K/mm3 09/02/16 05:00 Lymphocytes # (Manual) 1.8 K/mm3 (1.2-5.4) 09/02/16 05:00 Abs React Lymphs (Man) 0.0 K/mm3 09/02/16 05:00 Monocytes # (Manual) 0.5 K/mm3 (0.0-0.8) 09/02/16 05:00 Eosinophils # (Manual) 0.0 K/mm3 (0.0-0.4) 09/02/16 05:00 Basophils # (Manual) 0.0 K/mm3 (0.0-0.1) 09/02/16 05:00 Metamyelocytes # 0.0 K/mm3 09/02/16 05:00 Myelocytes # 0.0 K/mm3 09/02/16 05:00 Promyelocytes # 0.0 K/mm3 09/02/16 05:00 Blast Cells # 0.0 K/mm3 09/02/16 05:00 WBC Morphology Not Reportable 09/02/16 05:00 Hypersegmented Neuts Not Reportable 09/02/16 05:00 Hyposegmented Neuts Not Reportable 09/02/16 05:00 Hypogranular Neuts Not Reportable 09/02/16 05:00 Smudge Cells Not Reportable 09/02/16 05:00 Toxic Granulation Not Reportable 09/02/16 05:00 Toxic Vacuolation Not Reportable 09/02/16 05:00 Dohle Bodies Not Reportable 09/02/16 05:00 Pelger-Huet Anomaly Not Reportable 09/02/16 05:00 Feli Rods Not Reportable 09/02/16 05:00 Platelet Estimate Consistent w auto 09/02/16 05:00 Clumped Platelets Not Reportable 09/02/16 05:00 Plt Clumps, EDTA Not Reportable 09/02/16 05:00 Large Platelets Not Reportable 09/02/16 05:00 Giant Platelets Not Reportable 09/02/16 05:00 Platelet Satelliting Not Reportable 09/02/16 05:00 Plt Morphology Comment Not Reportable 09/02/16 05:00 RBC Morphology Not Reportable 09/02/16 05:00 Dimorphic RBCs Not Reportable 09/02/16 05:00 Polychromasia Rare 09/02/16 05:00 Hypochromasia Not Reportable 09/02/16 05:00 Poikilocytosis Not Reportable 09/02/16 05:00 Anisocytosis 1+ 09/02/16 05:00 Microcytosis Not Reportable 09/02/16 05:00 Macrocytosis 1+ 09/02/16 05:00 Spherocytes Not Reportable 09/02/16 05:00 Pappenheimer Bodies Not Reportable 09/02/16 05:00 Sickle Cells Not Reportable 09/02/16 05:00 Target Cells Not Reportable 09/02/16 05:00 Tear Drop Cells Not Reportable 09/02/16 05:00 Ovalocytes Not Reportable 09/02/16 05:00 Helmet Cells Not Reportable 09/02/16 05:00 [place] Bodies Not Reportable 09/02/16 05:00 [place] Rings Not Reportable 09/02/16 05:00 [place] Cells Not Reportable 09/02/16 05:00 Bite Cells Not Reportable 09/02/16 05:00 Crenated Cell Not Reportable 09/02/16 05:00 Elliptocytes Not Reportable 09/02/16 05:00 Acanthocytes (Spur) Not Reportable 09/02/16 05:00 Rouleaux Not Reportable 09/02/16 05:00 Hemoglobin C Crystals Not Reportable 09/02/16 05:00 Schistocytes Not Reportable 09/02/16 05:00 Malaria parasites Not Reportable 09/02/16 05:00 Manny Bodies Not Reportable 09/02/16 05:00 Hem Pathologist Commnt No 09/02/16 05:00 PT 13.8 Sec. (12.2-14.9) 09/10/16 05:10 INR 1.07 (0.87-1.13) 09/10/16 05:10 APTT 29.5 Sec. (24.2-36.6) 08/29/16 17:40 POC ABG pH 7.454 (7.35-7.45) H 09/09/16 12:33 POC ABG pCO2 38.4 (35-45) 09/09/16 12:33 POC ABG pO2 75 (80-105) L 09/09/16 12:33 POC ABG HCO3 27.0 09/09/16 12:33 POC ABG Total CO2 28 09/09/16 12:33 POC ABG O2 Sat 96 09/09/16 12:33 POC ABG Base Excess 3 09/09/16 12:33 VBG pH 7.366 (7.320-7.420) 08/29/16 17:40 FiO2 30 % 09/09/16 12:33 Sodium 144 mmol/L (137-145) 09/20/16 05:00 Potassium 3.9 mmol/L (3.6-5.0) 09/20/16 05:00 Chloride 108.6 mmol/L (98-107) H 09/20/16 05:00 Carbon Dioxide 26 mmol/L (22-30) 09/20/16 05:00 Anion Gap 13 mmol/L 09/20/16 05:00 BUN 35 mg/dL (7-17) H 09/20/16 05:00 Creatinine 0.4 mg/dL (0.7-1.2) L 09/20/16 05:00 Estimated GFR > 60 ml/min 09/20/16 05:00 BUN/Creatinine Ratio 87.50 % 09/20/16 05:00 Glucose 370 mg/dL (65-100) H 09/20/16 05:00 POC Glucose 374 (70-105) H 09/20/16 04:52 Lactic Acid 1.90 mmol/L (0.7-2.0) 09/07/16 15:00 Calcium 7.3 mg/dL (8.4-10.2) L 09/20/16 05:00 Phosphorus 3.60 mg/dL (2.5-4.5) 08/29/16 21:59 Magnesium 1.90 mg/dL (1.7-2.3) 09/20/16 05:00 Total Bilirubin 0.70 mg/dL (0.1-1.2) 09/11/16 05:00 AST 167 units/L (5-40) H 09/11/16 05:00 ALT 145 units/L (7-56) H 09/11/16 05:00 Alkaline Phosphatase 631 units/L (35-129) H 09/11/16 05:00 Ammonia 39.0 umol/L (25-60) 09/07/16 15:00 Total Creatine Kinase 36 units/L (30-135) 09/06/16 11:07 CK-MB (CK-2) < 1.0 ng/mL (0.0-4.0) 09/06/16 11:07 CK-MB (CK-2) Rel Index 2.7 (0-4) 09/06/16 11:07 Troponin T 0.080 ng/mL (0.00-0.029) H 09/06/16 11:07 C-Reactive Protein 10.20 mg/dL (0.00-1.30) H 08/30/16 22:20 NT-Pro-B Natriuret Pep 1712 pg/mL (0-900) H 08/29/16 17:40 Total Protein 5.1 g/dL (6.3-8.2) L 09/11/16 05:00 Albumin 1.6 g/dL (3.9-5) L 09/11/16 05:00 Albumin/Globulin Ratio 0.5 % 09/11/16 05:00 Prealbumin 0.120 g/L (0.200-0.400) L 08/29/16 21:59 Triglycerides 225 mg/dL (2-149) H 08/29/16 17:40 Cholesterol 130 mg/dL (50-199) 08/29/16 17:40 LDL Cholesterol Direct 82 mg/dL (50-130) 08/29/16 17:40 HDL Cholesterol 3 mg/dL (40-59) L 08/29/16 17:40 Cholesterol/HDL Ratio 43.33 % 08/29/16 17:40 TSH 5.220 mlU/mL (0.270-4.200) H 09/09/16 18:10 Urine Color Yellow (Yellow) 08/31/16 15:37 Urine Turbidity Clear (Clear) 08/31/16 15:37 Urine pH 5.0 (5.0-7.0) 08/31/16 15:37 Ur Specific [place] 1.009 (1.003-1.030) 08/31/16 15:37 Urine Protein <15 mg/dl mg/dL (Negative) 08/31/16 15:37 Urine Glucose (UA) Neg mg/dL (Negative) 08/31/16 15:37 Urine Ketones Neg mg/dL (Negative) 08/31/16 15:37 Urine Blood Sm (Negative) 08/31/16 15:37 Urine Nitrite Neg (Negative) 08/31/16 15:37 Urine Bilirubin Neg (Negative) 08/31/16 15:37 Urine Urobilinogen < 2.0 mg/dL (<2.0) 08/31/16 15:37 Ur Leukocyte Esterase Sm (Negative) 08/31/16 15:37 Urine WBC (Auto) 3.0 /HPF (0.0-6.0) 08/31/16 15:37 Urine RBC (Auto) 1.0 /HPF (0.0-6.0) 08/31/16 15:37 U Epithel Cells (Auto) < 1.0 /HPF (0-13.0) 08/31/16 15:37 Urine Bacteria (Auto) 1+ /HPF (Negative) 08/31/16 15:37 Hyaline Casts 5 /LPF 08/31/16 15:37 Urine Mucus Few /HPF 08/31/16 15:37 Blood Type O POSITIVE 09/08/16 11:00 Antibody Screen TNR 09/08/16 11:00 PATRICK Antibody Screen Negative 09/08/16 11:00 Crossmatch See Detail 09/08/16 11:00
[2016-09-20] MEDS: LEVEMIR SUB-Q SCH (21:02)
[2016-09-21] MEDS ORDERED: NACL 0.9% 500 ML 500 ML ONE (00:12)
[2016-09-21] MEDS ORDERED: NACL 0.9% 1000 ML 1,000 ML IV ONE (00:54)
[2016-09-21] MEDS ORDERED: NACL 0.9% 500 ML 500 ML IV ONE ×2 (00:54→07:28)
[2016-09-21] MEDS: LOPRESSOR PO SCH ×4 (00:58→17:00)
[2016-09-21] MEDS: REGLAN IV SCH ×5 (01:02→18:59)
[2016-09-21] MEDS: NOVOLOG SUB-Q SCH ×5 (01:07→18:58)
[2016-09-21] MEDS: DUONEB 0.5 MG-3 MG/3 ML SOLN IH SCH ×4 (03:30→20:49)
[2016-09-21] MEDS: LEVOPHED DRIP 4 MG/NS 250 ML 4 MG/250 ML BAG IV SCH ×2 (05:27→10:17)
[2016-09-21] MEDS: PROAMATINE PO SCH ×2 (05:30→17:49)
[2016-09-21 05:49] LABS: Mean Corpuscular HGB Conc 31 % (30-34); Mean Corpuscular Hemoglobin 31 pg (28-32); Mean Corpuscular Volume 100 fl (79-97); Platelet Count 179 K/mm3 (140-440); Red Blood Count 1.48 M/mm3 (3.65-5.03); White Blood Count 10.8 K/mm3 (4.5-11.0)
[2016-09-21 05:55] LABS: Red Cell Distribution Width 25.4 % (13.2-15.2)
[2016-09-21 05:56] LABS: Hematocrit 14.9 % (30.3-42.9); Hemoglobin 4.6 gm/dl (10.1-14.3)
[2016-09-21 06:31] LABS: Anion Gap 22 mmol/L; Blood Urea Nitrogen 45 mg/dL (7-17); Carbon Dioxide 20 mmol/L (22-30); Chloride 107.5 mmol/L (98-107); Glucose 490 mg/dL (65-100); Potassium 4.3 mmol/L (3.6-5.0); Sodium 145 mmol/L (137-145)
--- NOTE | 2016-09-21 07:05 | Progress Note ---
Assessment and Plan - Patient Problems (1) RORY (acute kidney injury) Current Visit: No Status: Acute Plan to address problem: Acute Kidney Injury is hemodynamically mediated in the setting of hypotension / shock. Renal function has improved and stable. Will follow labs and see patient as needed. (2) Hypokalemia Current Visit: Yes Status: Acute Plan to address problem: Monitor K levels and replete as needed. Hypernatremia: Continue water flushes. (3) Shock Current Visit: Yes Status: Acute Plan to address problem: Levophed restarted last night. (4) Respiratory failure Current Visit: Yes Status: Acute Qualifiers: Chronicity: C Respiratory failure complication: R Plan to address problem: On vent. (5) Altered mental status Current Visit: Yes Status: Acute Qualifiers: Altered mental status type: unspecified Coma depth: C Coma timing: C Qualified Code(s): R41.82 - Altered mental status, unspecified (6) Anemia Current Visit: Yes Status: Acute Qualifiers: Anemia type: unspecified type Iron deficiency anemia type: I Vitamin B12 deficiency anemia type: V Folate deficiency anemia type: F Bone marrow failure anemia type: B Hemolytic anemia type: H Other causes of anemia: O Chronic kidney disease stage: C Qualified Code(s): D64.9 - Anemia, unspecified Plan to address problem: PRBC. Subjective Date of service: 09/21/16 Principal diagnosis: Acute Hypoxemic Hypercapnic Resp Failure; Severe Sepsis Interval history: Patient remain on the vent. Objective - Vital Signs Vital signs: Vital Signs - 12hr 09/20/16 09/20/16 09/20/16 19:11 19:21 19:31 Temperature Pulse Rate 110 H 75 73 Pulse Rate [ Anterior Bilateral Throughout] Pulse Rate [ From Monitor] Pulse Rate [ Left Dorsalis Pedis] Pulse Rate [ Left Radial] Pulse Rate [ Right Dorsalis Pedis] Pulse Rate [ Right Radial] Respiratory 22 22 28 H Rate Respiratory Rate [Anterior Bilateral Throughout] Blood Pressure 97/65 97/65 97/65 O2 Sat by Pulse 92 97 93 Oximetry 09/20/16 09/20/16 09/20/16 19:35 19:41 19:42 Temperature Pulse Rate 58 L 159 H Pulse Rate [ 58 L Anterior Bilateral Throughout] Pulse Rate [ From Monitor] Pulse Rate [ Left Dorsalis Pedis] Pulse Rate [ Left Radial] Pulse Rate [ Right Dorsalis Pedis] Pulse Rate [ Right Radial] Respiratory 28 H 24 Rate Respiratory 28 H Rate [Anterior Bilateral Throughout] Blood Pressure 105/34 105/34 O2 Sat by Pulse 96 96 Oximetry 09/20/16 09/20/16 09/20/16 19:44 19:51 19:52 Temperature Pulse Rate 102 H Pulse Rate [ 88 Anterior Bilateral Throughout] Pulse Rate [ 112 H From Monitor] Pulse Rate [ 112 H Left Dorsalis Pedis] Pulse Rate [ 112 H Left Radial] Pulse Rate [ 112 H Right Dorsalis Pedis] Pulse Rate [ 112 H Right Radial] Respiratory 17 33 H Rate Respiratory 27 H Rate [Anterior Bilateral Throughout] Blood Pressure 105/34 O2 Sat by Pulse 97 96 Oximetry 09/20/16 09/20/16 09/20/16 20:00 20:01 20:11 Temperature 98.4 F Pulse Rate 89 65 Pulse Rate [ Anterior Bilateral Throughout] Pulse Rate [ From Monitor] Pulse Rate [ Left Dorsalis Pedis] Pulse Rate [ Left Radial] Pulse Rate [ Right Dorsalis Pedis] Pulse Rate [ Right Radial] Respiratory 30 H 32 H Rate Respiratory Rate [Anterior Bilateral Throughout] Blood Pressure 108/52 108/52 O2 Sat by Pulse 96 95 Oximetry 09/20/16 09/20/16 09/20/16 20:21 20:31 20:41 Temperature Pulse Rate 73 76 111 H Pulse Rate [ Anterior Bilateral Throughout] Pulse Rate [ From Monitor] Pulse Rate [ Left Dorsalis Pedis] Pulse Rate [ Left Radial] Pulse Rate [ Right Dorsalis Pedis] Pulse Rate [ Right Radial] Respiratory 33 H 24 33 H Rate Respiratory Rate [Anterior Bilateral Throughout] Blood Pressure 108/52 108/52 108/52 O2 Sat by Pulse 96 95 95 Oximetry 09/20/16 09/20/16 09/20/16 20:51 21:00 21:11 Temperature Pulse Rate 80 71 82 Pulse Rate [ Anterior Bilateral Throughout] Pulse Rate [ From Monitor] Pulse Rate [ Left Dorsalis Pedis] Pulse Rate [ Left Radial] Pulse Rate [ Right Dorsalis Pedis] Pulse Rate [ Right Radial] Respiratory 20 33 H 32 H Rate Respiratory Rate [Anterior Bilateral Throughout] Blood Pressure 108/52 87/42 87/42 O2 Sat by Pulse 95 95 96 Oximetry 09/20/16 09/20/16 09/20/16 21:21 21:31 21:41 Temperature Pulse Rate 105 H 84 84 Pulse Rate [ Anterior Bilateral Throughout] Pulse Rate [ From Monitor] Pulse Rate [ Left Dorsalis Pedis] Pulse Rate [ Left Radial] Pulse Rate [ Right Dorsalis Pedis] Pulse Rate [ Right Radial] Respiratory 32 H 34 H 35 H Rate Respiratory Rate [Anterior Bilateral Throughout] Blood Pressure 87/42 87/42 87/42 O2 Sat by Pulse 91 89 97 Oximetry 09/20/16 09/20/16 09/20/16 21:51 22:01 22:11 Temperature Pulse Rate 83 99 H 108 H Pulse Rate [ Anterior Bilateral Throughout] Pulse Rate [ From Monitor] Pulse Rate [ Left Dorsalis Pedis] Pulse Rate [ Left Radial] Pulse Rate [ Right Dorsalis Pedis] Pulse Rate [ Right Radial] Respiratory 35 H 19 22 Rate Respiratory Rate [Anterior Bilateral Throughout] Blood Pressure 87/42 87/42 96/66 O2 Sat by Pulse 96 90 87 Oximetry 09/20/16 09/20/16 09/20/16 22:21 22:31 22:41 Temperature Pulse Rate 197 H 110 H 100 H Pulse Rate [ Anterior Bilateral Throughout] Pulse Rate [ From Monitor] Pulse Rate [ Left Dorsalis Pedis] Pulse Rate [ Left Radial] Pulse Rate [ Right Dorsalis Pedis] Pulse Rate [ Right Radial] Respiratory 17 27 H 30 H Rate Respiratory Rate [Anterior Bilateral Throughout] Blood Pressure 96/66 96/66 96/66 O2 Sat by Pulse 86 96 Oximetry 09/20/16 09/20/16 09/20/16 22:45 22:51 23:01 Temperature Pulse Rate 102 H 55 L Pulse Rate [ Anterior Bilateral Throughout] Pulse Rate [ 125 H From Monitor] Pulse Rate [ 125 H Left Dorsalis Pedis] Pulse Rate [ 125 H Left Radial] Pulse Rate [ 125 H Right Dorsalis Pedis] Pulse Rate [ 125 H Right Radial] Respiratory 22 29 H 30 H Rate Respiratory Rate [Anterior Bilateral Throughout] Blood Pressure 96/66 96/66 O2 Sat by Pulse 100 92 93 Oximetry 09/20/16 09/20/16 09/20/16 23:11 23:21 23:31 Temperature Pulse Rate 149 H 102 H 54 L Pulse Rate [ Anterior Bilateral Throughout] Pulse Rate [ From Monitor] Pulse Rate [ Left Dorsalis Pedis] Pulse Rate [ Left Radial] Pulse Rate [ Right Dorsalis Pedis] Pulse Rate [ Right Radial] Respiratory 29 H 34 H 31 H Rate Respiratory Rate [Anterior Bilateral Throughout] Blood Pressure 80/31 80/31 80/31 O2 Sat by Pulse 94 96 Oximetry 09/20/16 09/20/16 09/20/16 23:41 23:51 23:52 Temperature Pulse Rate 55 L 70 98 H Pulse Rate [ Anterior Bilateral Throughout] Pulse Rate [ From Monitor] Pulse Rate [ Left Dorsalis Pedis] Pulse Rate [ Left Radial] Pulse Rate [ Right Dorsalis Pedis] Pulse Rate [ Right Radial] Respiratory 27 H 32 H Rate Respiratory Rate [Anterior Bilateral Throughout] Blood Pressure 80/31 74/34 74/34 O2 Sat by Pulse 98 96 95 Oximetry 09/20/16 09/21/16 09/21/16 23:53 00:00 00:11 Temperature 98.1 F Pulse Rate 66 106 H 95 H Pulse Rate [ Anterior Bilateral Throughout] Pulse Rate [ From Monitor] Pulse Rate [ Left Dorsalis Pedis] Pulse Rate [ Left Radial] Pulse Rate [ Right Dorsalis Pedis] Pulse Rate [ Right Radial] Respiratory 19 31 H 32 H Rate Respiratory Rate [Anterior Bilateral Throughout] Blood Pressure 74/34 81/35 81/35 O2 Sat by Pulse 98 95 95 Oximetry 09/21/16 09/21/16 09/21/16 00:21 00:31 00:48 Temperature Pulse Rate 73 98 H 99 H Pulse Rate [ Anterior Bilateral Throughout] Pulse Rate [ From Monitor] Pulse Rate [ Left Dorsalis Pedis] Pulse Rate [ Left Radial] Pulse Rate [ Right Dorsalis Pedis] Pulse Rate [ Right Radial] Respiratory 22 30 H 28 H Rate Respiratory Rate [Anterior Bilateral Throughout] Blood Pressure 81/35 81/39 O2 Sat by Pulse 95 94 93 Oximetry 09/21/16 09/21/16 09/21/16 00:50 00:58 01:00 Temperature Pulse Rate 93 H 86 101 H Pulse Rate [ Anterior Bilateral Throughout] Pulse Rate [ From Monitor] Pulse Rate [ Left Dorsalis Pedis] Pulse Rate [ Left Radial] Pulse Rate [ Right Dorsalis Pedis] Pulse Rate [ Right Radial] Respiratory 28 H 28 H Rate Respiratory Rate [Anterior Bilateral Throughout] Blood Pressure 74/34 73/44 O2 Sat by Pulse 93 93 Oximetry 09/21/16 09/21/16 09/21/16 01:10 01:20 01:30 Temperature Pulse Rate 103 H 106 H 90 Pulse Rate [ Anterior Bilateral Throughout] Pulse Rate [ From Monitor] Pulse Rate [ Left Dorsalis Pedis] Pulse Rate [ Left Radial] Pulse Rate [ Right Dorsalis Pedis] Pulse Rate [ Right Radial] Respiratory 30 H 31 H 34 H Rate Respiratory Rate [Anterior Bilateral Throughout] Blood Pressure 73/44 108/73 77/29 O2 Sat by Pulse 96 95 95 Oximetry 09/21/16 09/21/16 09/21/16 01:40 01:50 02:00 Temperature Pulse Rate 160 H 119 H 114 H Pulse Rate [ Anterior Bilateral Throughout] Pulse Rate [ From Monitor] Pulse Rate [ Left Dorsalis Pedis] Pulse Rate [ Left Radial] Pulse Rate [ Right Dorsalis Pedis] Pulse Rate [ Right Radial] Respiratory 24 33 H 31 H Rate Respiratory Rate [Anterior Bilateral Throughout] Blood Pressure 77/29 85/32 110/46 O2 Sat by Pulse 94 95 96 Oximetry 09/21/16 09/21/16 09/21/16 02:10 02:20 02:30 Temperature Pulse Rate 111 H 104 H 121 H Pulse Rate [ Anterior Bilateral Throughout] Pulse Rate [ From Monitor] Pulse Rate [ Left Dorsalis Pedis] Pulse Rate [ Left Radial] Pulse Rate [ Right Dorsalis Pedis] Pulse Rate [ Right Radial] Respiratory 31 H 33 H 39 H Rate Respiratory Rate [Anterior Bilateral Throughout] Blood Pressure 75/42 80/34 80/34 O2 Sat by Pulse 95 94 Oximetry 09/21/16 09/21/16 09/21/16 02:40 02:50 03:00 Temperature Pulse Rate 107 H 103 H 93 H Pulse Rate [ Anterior Bilateral Throughout] Pulse Rate [ From Monitor] Pulse Rate [ Left Dorsalis Pedis] Pulse Rate [ Left Radial] Pulse Rate [ Right Dorsalis Pedis] Pulse Rate [ Right Radial] Respiratory 30 H 32 H 30 H Rate Respiratory Rate [Anterior Bilateral Throughout] Blood Pressure 68/51 101/29 110/53 O2 Sat by Pulse Oximetry 09/21/16 09/21/16 09/21/16 03:10 03:20 03:30 Temperature Pulse Rate 97 H 108 H 108 H Pulse Rate [ Anterior Bilateral Throughout] Pulse Rate [ 108 H From Monitor] Pulse Rate [ 108 H Left Dorsalis Pedis] Pulse Rate [ Left Radial] Pulse Rate [ 108 H Right Dorsalis Pedis] Pulse Rate [ 108 H Right Radial] Respiratory 33 H 31 H 33 H Rate Respiratory Rate [Anterior Bilateral Throughout] Blood Pressure 101/29 119/43 115/32 O2 Sat by Pulse 97 Oximetry 09/21/16 09/21/16 09/21/16 03:38 03:40 03:50 Temperature 98.9 F Pulse Rate 79 110 H Pulse Rate [ Anterior Bilateral Throughout] Pulse Rate [ From Monitor] Pulse Rate [ Left Dorsalis Pedis] Pulse Rate [ Left Radial] Pulse Rate [ Right Dorsalis Pedis] Pulse Rate [ Right Radial] Respiratory 32 H 31 H Rate Respiratory Rate [Anterior Bilateral Throughout] Blood Pressure 115/32 87/48 O2 Sat by Pulse Oximetry 09/21/16 09/21/16 09/21/16 04:00 04:10 04:15 Temperature Pulse Rate 100 H 91 H 106 H Pulse Rate [ Anterior Bilateral Throughout] Pulse Rate [ From Monitor] Pulse Rate [ Left Dorsalis Pedis] Pulse Rate [ Left Radial] Pulse Rate [ Right Dorsalis Pedis] Pulse Rate [ Right Radial] Respiratory 32 H 31 H Rate Respiratory Rate [Anterior Bilateral Throughout] Blood Pressure 106/33 106/33 106/33 O2 Sat by Pulse 96 Oximetry 09/21/16 09/21/16 09/21/16 04:20 04:30 04:40 Temperature Pulse Rate 108 H 99 H 110 H Pulse Rate [ Anterior Bilateral Throughout] Pulse Rate [ From Monitor] Pulse Rate [ Left Dorsalis Pedis] Pulse Rate [ Left Radial] Pulse Rate [ Right Dorsalis Pedis] Pulse Rate [ Right Radial] Respiratory 18 34 H 32 H Rate Respiratory Rate [Anterior Bilateral Throughout] Blood Pressure 93/41 88/57 88/57 O2 Sat by Pulse Oximetry 09/21/16 09/21/16 09/21/16 04:50 05:00 05:10 Temperature Pulse Rate 151 H 110 H 125 H Pulse Rate [ Anterior Bilateral Throughout] Pulse Rate [ From Monitor] Pulse Rate [ Left Dorsalis Pedis] Pulse Rate [ Left Radial] Pulse Rate [ Right Dorsalis Pedis] Pulse Rate [ Right Radial] Respiratory 47 H 35 H 43 H Rate Respiratory Rate [Anterior Bilateral Throughout] Blood Pressure 83/60 83/60 98/44 O2 Sat by Pulse Oximetry 09/21/16 09/21/16 09/21/16 05:20 05:30 05:33 Temperature Pulse Rate 110 H 134 H 147 H Pulse Rate [ Anterior Bilateral Throughout] Pulse Rate [ From Monitor] Pulse Rate [ Left Dorsalis Pedis] Pulse Rate [ Left Radial] Pulse Rate [ Right Dorsalis Pedis] Pulse Rate [ Right Radial] Respiratory 39 H 44 H Rate Respiratory Rate [Anterior Bilateral Throughout] Blood Pressure 87/38 87/38 87/38 O2 Sat by Pulse Oximetry 09/21/16 09/21/16 09/21/16 05:40 05:50 06:00 Temperature Pulse Rate 129 H 143 H 125 H Pulse Rate [ Anterior Bilateral Throughout] Pulse Rate [ From Monitor] Pulse Rate [ Left Dorsalis Pedis] Pulse Rate [ Left Radial] Pulse Rate [ Right Dorsalis Pedis] Pulse Rate [ Right Radial] Respiratory 46 H 40 H 46 H Rate Respiratory Rate [Anterior Bilateral Throughout] Blood Pressure 93/45 87/39 103/26 O2 Sat by Pulse Oximetry 09/21/16 09/21/16 09/21/16 06:10 06:20 06:30 Temperature Pulse Rate 139 H 133 H 177 H Pulse Rate [ Anterior Bilateral Throughout] Pulse Rate [ From Monitor] Pulse Rate [ Left Dorsalis Pedis] Pulse Rate [ Left Radial] Pulse Rate [ Right Dorsalis Pedis] Pulse Rate [ Right Radial] Respiratory 42 H 43 H 47 H Rate Respiratory Rate [Anterior Bilateral Throughout] Blood Pressure 103/26 104/26 104/26 O2 Sat by Pulse Oximetry - General Appearance General appearance: well-developed, well-nourished, appears stated age, obese, intubated (FiO2 40%) EENT: ATNC Neck: supple Respiratory: Present: Other (coarse breath sounds) Cardiology: tachycardia, S1S2, no murmurs Gastrointestinal: normoactive bowel sounds, obese Integumentary: no rash, ulcer (right foot) Neurologic: obtunded Musculoskeletal: other (2+ edema of both LEs noted) - Lab 09/21/16 05:15 09/21/16 05:15 Most recent lab results Calcium 7.0 mg/dL (8.4-10.2) L 09/21/16 05:15 Phosphorus 3.60 mg/dL (2.5-4.5) 08/29/16 21:59 Magnesium 1.90 mg/dL (1.7-2.3) 09/20/16 05:00
[2016-09-21] MEDS: LOVENOX SUB-Q SCH ×2 (10:00→10:17)
[2016-09-21] MEDS: PROTONIX PO SCH (10:18)
[2016-09-21] MEDS: FOLVITE PO SCH (10:18)
[2016-09-21] MEDS: KEPPRA PO SCH (10:18)
[2016-09-21] MEDS: FERROUS SULFATE PO SCH (10:35)
[2016-09-21] MEDS: LASIX IV SCH (10:44)
[2016-09-21] MEDS: POTASSIUM CHLORIDE FEEDTUBE SCH (10:58)
--- NOTE | 2016-09-21 11:30 | Progress Note ---
Assessment and Plan Assessment and plan: Patient is a 61-year-old morbid obese woman with a history of congestive heart failure, severe protein calorie malnutrition (bilateral jainism muscle severe wasting, hypothenar muscle wasting) with BMI of 81.6, functional quadriplegia, type 2 diabetes mellitus, hypertension, multiple skin breakdown between legs and thighs who presented to the hospital via EMS with AMS. 2D echocardiogram with ejection fraction of 50-55%. During the past admission, patient was recommended for placement but refused. On presentation to ED, patient was felt to be unable to maintain her airways and intubated the ER since 08/29/16. 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, poa: supportative care -Acute on chronic diastolic congestive heart failure: treated with diuresis -Acute on chronic respiratory failure, intubated > 96 hours -Septic shock off IV solucorticef and midodrine -Severe anemia s/p blood transfusion: monitor cbc closely altered -Paroxysmal atrial fibrillation -Non-ST elevated ND type 2: Conservative management -Acute on chronic kidney disease III, likely secondary to vasomotor nephropathy- POA -Transaminitis-elevated alkaline phosphatase and AST: continue to monitor -Severe protein calorie malnutrition albumin 1.2 -Morbid obesity BMI 81.6 -Mulitple PRESSURE ULCERS-POA: consulted wound care -uncontrolled dm: increased ssi -Acute anemia with drop in HCT s/p 5 units of PRBC transfused so far. Ordered 2 more units. -Levaphed restarted last night 09/20/16 -Unable to get CT head due to weight issues -Dvt prophylaxis: sq lovenox per [facility] Disposition: LTAC declined, case management is working on plan DNR 09/04/16 , boyfriendTad agreed to blood transfusion, hgb is 6.0 will transfuse 2 units==>h/h steady, continue to monitor 09/05/16: Overnight was very eventful. New issue: Status epilepticus most likely due to anoxic brain injury, poa. She is back on 8 mcg of Levophed, which had weaned off up to the point of seizure activity Patient had status epilepticus before receiving blood transfusions. She was given multiple doses of Ativan and was still having breakthrough seizures. She was given phenobarbital and Dilantin but still having seizures. I started propofol drip which is helping. She still on IV Ativan drip also. Difficult family dynamics: Her son (she has multiple children), Srikanth and sister Leanne were at her bedside and well as her boyfriend who is not her legal , which he told me. They are upset because they didn't know patient was in the hospital. It appears the gentleman in the room is her boyfriend and not her legal He also did not notify the family the patient was here. That gentleman who is her boyfriend dropped the patient's wallet and our security called the number inside the wallet which was patient's mother's number and this is how the family found out that patient was in the hospital. I was told by RN, that patient has no , patient has 7 siblings and they are estranged from mother. No legal POA but sister Leanne is active in sister's life. Her boyfriend name is Tad Vieyra and he has consistently been at her beside, holding her hand and being supportive. 09/10/16 (resumed care): Trying to get to LTAC, still on 2 mcg of Levaphed but not sedated==>?Significant anoxic brain injury most likely poa, Ethic committee consulted because some family members want to withdraw. 09/11/16, Trach aspirated GNR, continue abx pending identification, off levaphed today. Trying to get to LTAC, they can trach her there. Only [facility] takes her insurance 09/12/16 Trach aspirate still pending, new issue of hypothermia, responded to [facility], tube feeding low rate due to high residuals, abd xray unremarkable. Potassium replaced. No restraints needs, no sedation needed, poor prognosis 09/15/16(resumed care): new issue seizure, gave 1mg iv ativan x 1. Awaiting to go to [facility], they want to trach and peg when she gets there. 09/16-11/26: cpm, no new seizures. 09/18/16: [facility] did not accept patient, so trach and peg here. Patient has been intubated since 08/29/16. 09/19/16 no new issue, trying to wean 09/20/16: d/w boyfriend at bedside. He believes she is having purposefully spontaneous movements, like blinking. Heart rate went up to 150s but spontaneously went down without any medications given. 09/21/16: Overnight she became hypotensive, Levophed drip restarted at 12mcg, hgb found to be 4.6, blood transfusions ordered, hyperglycemic worse, so Levemir increased, She has apneic breathing on vent, POOR sign, anticipate w/in 48 hours because she will tire out. History Interval history: Patient seen and examined. Follow up on respiratory failure. Patient still intubated. Overnight, bp dropped, Levophed restarted. Tad at bedside Hospitalist Physical - Physical exam Narrative exam: GEN: Critically ill, morbid obese BMI 81.6, intubated, apneic breathing HEENT: Pupils are pinpoint and reactive, ET tube in place NECK: SUPPLE, NO THYROMEGALY, NO JVD, NO LAD CVS: regular irregular NORMAL S1S2 LUNGS/CHEST: TA B, NORMAL CHEST EXPANSION B, GOOD AIR ENTRY B ABD: SOFT, NONDISTENDED GBS, NO REBOUND OR GUARDING NEURO: CN 2-12 GROSSLY INTACT, doesn't follow commands PSY: Comatose - Constitutional Vitals: Temp Pulse Resp BP Pulse Ox 98.5 F 124 H 42 H 76/43 100 09/21/16 11:01 09/21/16 11:01 09/21/16 11:01 09/21/16 11:01 09/21/16 08:40 General appearance: Present: other (morbidly obese) Results - Labs CBC & Chem 7: 09/21/16 05:15 09/21/16 05:15 Labs: Laboratory Last Values WBC 10.8 K/mm3 (4.5-11.0) 09/21/16 05:15 RBC 1.48 M/mm3 (3.65-5.03) L 09/21/16 05:15 Hgb 4.6 gm/dl (10.1-14.3) L* 09/21/16 05:15 Hct 14.9 % (30.3-42.9) L* 09/21/16 05:15 MCV 100 fl (79-97) H 09/21/16 05:15 MCH 31 pg (28-32) 09/21/16 05:15 MCHC 31 % (30-34) 09/21/16 05:15 RDW 25.4 % (13.2-15.2) H 09/21/16 05:15 Plt Count 179 K/mm3 (140-440) 09/21/16 05:15 Lymph % (Auto) 15.6 % (13.4-35.0) 08/30/16 10:30 [place] % (Auto) 5.1 % (0.0-7.3) 08/30/16 10:30 Eos % (Auto) 0.6 % (0.0-4.3) 08/30/16 10:30 Baso % (Auto) 0.1 % (0.0-1.8) 08/30/16 10:30 Lymph # 1.7 K/mm3 (1.2-5.4) 08/30/16 10:30 [place] # 0.6 K/mm3 (0.0-0.8) 08/30/16 10:30 Eos # 0.1 K/mm3 (0.0-0.4) 08/30/16 10:30 Baso # 0.0 K/mm3 (0.0-0.1) 08/30/16 10:30 Add Manual Diff Complete 09/02/16 05:00 Total Counted 100 09/02/16 05:00 Seg Neutrophils % 78.6 % (40.0-70.0) H 08/30/16 10:30 Seg Neuts % (Manual) 72.0 % (40.0-70.0) H 09/02/16 05:00 Band Neutrophils % 9.0 % 09/02/16 05:00 Lymphocytes % (Manual) 15.0 % (13.4-35.0) 09/02/16 05:00 Reactive Lymphs % (Man) 0 % 09/02/16 05:00 Monocytes % (Manual) 4.0 % (0.0-7.3) 09/02/16 05:00 Eosinophils % (Manual) 0 % (0.0-4.3) 09/02/16 05:00 Basophils % (Manual) 0 % (0.0-1.8) 09/02/16 05:00 Metamyelocytes % 0 % 09/02/16 05:00 Myelocytes % 0 % 09/02/16 05:00 Promyelocytes % 0 % 09/02/16 05:00 Blast Cells % 0 % 09/02/16 05:00 Nucleated RBC % 25.0 % (0.0-0.9) H 09/02/16 05:00 Seg Neutrophils # 8.7 K/mm3 (1.8-7.7) H 08/30/16 10:30 Seg Neutrophils # Man 8.9 K/mm3 (1.8-7.7) H 09/02/16 05:00 Band Neutrophils # 1.1 K/mm3 09/02/16 05:00 Lymphocytes # (Manual) 1.8 K/mm3 (1.2-5.4) 09/02/16 05:00 Abs React Lymphs (Man) 0.0 K/mm3 09/02/16 05:00 Monocytes # (Manual) 0.5 K/mm3 (0.0-0.8) 09/02/16 05:00 Eosinophils # (Manual) 0.0 K/mm3 (0.0-0.4) 09/02/16 05:00 Basophils # (Manual) 0.0 K/mm3 (0.0-0.1) 09/02/16 05:00 Metamyelocytes # 0.0 K/mm3 09/02/16 05:00 Myelocytes # 0.0 K/mm3 09/02/16 05:00 Promyelocytes # 0.0 K/mm3 09/02/16 05:00 Blast Cells # 0.0 K/mm3 09/02/16 05:00 WBC Morphology Not Reportable 09/02/16 05:00 Hypersegmented Neuts Not Reportable 09/02/16 05:00 Hyposegmented Neuts Not Reportable 09/02/16 05:00 Hypogranular Neuts Not Reportable 09/02/16 05:00 Smudge Cells Not Reportable 09/02/16 05:00 Toxic Granulation Not Reportable 09/02/16 05:00 Toxic Vacuolation Not Reportable 09/02/16 05:00 Dohle Bodies Not Reportable 09/02/16 05:00 Pelger-Huet Anomaly Not Reportable 09/02/16 05:00 Feli Rods Not Reportable 09/02/16 05:00 Platelet Estimate Consistent w auto 09/02/16 05:00 Clumped Platelets Not Reportable 09/02/16 05:00 Plt Clumps, EDTA Not Reportable 09/02/16 05:00 Large Platelets Not Reportable 09/02/16 05:00 Giant Platelets Not Reportable 09/02/16 05:00 Platelet Satelliting Not Reportable 09/02/16 05:00 Plt Morphology Comment Not Reportable 09/02/16 05:00 RBC Morphology Not Reportable 09/02/16 05:00 Dimorphic RBCs Not Reportable 09/02/16 05:00 Polychromasia Rare 09/02/16 05:00 Hypochromasia Not Reportable 09/02/16 05:00 Poikilocytosis Not Reportable 09/02/16 05:00 Anisocytosis 1+ 09/02/16 05:00 Microcytosis Not Reportable 09/02/16 05:00 Macrocytosis 1+ 09/02/16 05:00 Spherocytes Not Reportable 09/02/16 05:00 Pappenheimer Bodies Not Reportable 09/02/16 05:00 Sickle Cells Not Reportable 09/02/16 05:00 Target Cells Not Reportable 09/02/16 05:00 Tear Drop Cells Not Reportable 09/02/16 05:00 Ovalocytes Not Reportable 09/02/16 05:00 Helmet Cells Not Reportable 09/02/16 05:00 [place] Bodies Not Reportable 09/02/16 05:00 [place] Rings Not Reportable 09/02/16 05:00 Dana Cells Not Reportable 09/02/16 05:00 Bite Cells Not Reportable 09/02/16 05:00 Crenated Cell Not Reportable 09/02/16 05:00 Elliptocytes Not Reportable 09/02/16 05:00 Acanthocytes (Spur) Not Reportable 09/02/16 05:00 Rouleaux Not Reportable 09/02/16 05:00 Hemoglobin C Crystals Not Reportable 09/02/16 05:00 Schistocytes Not Reportable 09/02/16 05:00 Malaria parasites Not Reportable 09/02/16 05:00 Manny Bodies Not Reportable 09/02/16 05:00 Hem Pathologist Commnt No 09/02/16 05:00 PT 13.8 Sec. (12.2-14.9) 09/10/16 05:10 INR 1.07 (0.87-1.13) 09/10/16 05:10 APTT 29.5 Sec. (24.2-36.6) 08/29/16 17:40 POC ABG pH 7.454 (7.35-7.45) H 09/09/16 12:33 POC ABG pCO2 38.4 (35-45) 09/09/16 12:33 POC ABG pO2 75 (80-105) L 09/09/16 12:33 POC ABG HCO3 27.0 09/09/16 12:33 POC ABG Total CO2 28 09/09/16 12:33 POC ABG O2 Sat 96 09/09/16 12:33 POC ABG Base Excess 3 09/09/16 12:33 VBG pH 7.366 (7.320-7.420) 08/29/16 17:40 FiO2 30 % 09/09/16 12:33 Sodium 145 mmol/L (137-145) 09/21/16 05:15 Potassium 4.3 mmol/L (3.6-5.0) 09/21/16 05:15 Chloride 107.5 mmol/L (98-107) H 09/21/16 05:15 Carbon Dioxide 20 mmol/L (22-30) L 09/21/16 05:15 Anion Gap 22 mmol/L 09/21/16 05:15 BUN 45 mg/dL (7-17) H 09/21/16 05:15 Creatinine 0.6 mg/dL (0.7-1.2) L 09/21/16 05:15 Estimated GFR > 60 ml/min 09/21/16 05:15 BUN/Creatinine Ratio 75.00 % 09/21/16 05:15 Glucose 490 mg/dL (65-100) H 09/21/16 05:15 POC Glucose > 500 (70-105) H 09/21/16 04:58 Lactic Acid 1.90 mmol/L (0.7-2.0) 09/07/16 15:00 Calcium 7.0 mg/dL (8.4-10.2) L 09/21/16 05:15 Phosphorus 3.60 mg/dL (2.5-4.5) 08/29/16 21:59 Magnesium 1.90 mg/dL (1.7-2.3) 09/20/16 05:00 Total Bilirubin 0.70 mg/dL (0.1-1.2) 09/11/16 05:00 AST 167 units/L (5-40) H 09/11/16 05:00 ALT 145 units/L (7-56) H 09/11/16 05:00 Alkaline Phosphatase 631 units/L (35-129) H 09/11/16 05:00 Ammonia 39.0 umol/L (25-60) 09/07/16 15:00 Total Creatine Kinase 36 units/L (30-135) 09/06/16 11:07 CK-MB (CK-2) < 1.0 ng/mL (0.0-4.0) 09/06/16 11:07 CK-MB (CK-2) Rel Index 2.7 (0-4) 09/06/16 11:07 Troponin T 0.080 ng/mL (0.00-0.029) H 09/06/16 11:07 C-Reactive Protein 10.20 mg/dL (0.00-1.30) H 08/30/16 22:20 NT-Pro-B Natriuret Pep 1712 pg/mL (0-900) H 08/29/16 17:40 Total Protein 5.1 g/dL (6.3-8.2) L 09/11/16 05:00 Albumin 1.6 g/dL (3.9-5) L 09/11/16 05:00 Albumin/Globulin Ratio 0.5 % 09/11/16 05:00 Prealbumin 0.120 g/L (0.200-0.400) L 08/29/16 21:59 Triglycerides 225 mg/dL (2-149) H 08/29/16 17:40 Cholesterol 130 mg/dL (50-199) 08/29/16 17:40 LDL Cholesterol Direct 82 mg/dL (50-130) 08/29/16 17:40 HDL Cholesterol 3 mg/dL (40-59) L 08/29/16 17:40 Cholesterol/HDL Ratio 43.33 % 08/29/16 17:40 TSH 5.220 mlU/mL (0.270-4.200) H 09/09/16 18:10 Urine Color Yellow (Yellow) 08/31/16 15:37 Urine Turbidity Clear (Clear) 08/31/16 15:37 Urine pH 5.0 (5.0-7.0) 08/31/16 15:37 Ur Specific [place] 1.009 (1.003-1.030) 08/31/16 15:37 Urine Protein <15 mg/dl mg/dL (Negative) 08/31/16 15:37 Urine Glucose (UA) Neg mg/dL (Negative) 08/31/16 15:37 Urine Ketones Neg mg/dL (Negative) 08/31/16 15:37 Urine Blood Sm (Negative) 08/31/16 15:37 Urine Nitrite Neg (Negative) 08/31/16 15:37 Urine Bilirubin Neg (Negative) 08/31/16 15:37 Urine Urobilinogen < 2.0 mg/dL (<2.0) 08/31/16 15:37 Ur Leukocyte Esterase Sm (Negative) 08/31/16 15:37 Urine WBC (Auto) 3.0 /HPF (0.0-6.0) 08/31/16 15:37 Urine RBC (Auto) 1.0 /HPF (0.0-6.0) 08/31/16 15:37 U Epithel Cells (Auto) < 1.0 /HPF (0-13.0) 08/31/16 15:37 Urine Bacteria (Auto) 1+ /HPF (Negative) 08/31/16 15:37 Hyaline Casts 5 /LPF 08/31/16 15:37 Urine Mucus Few /HPF 08/31/16 15:37 Blood Type O POSITIVE 09/21/16 08:20 Antibody Screen TNR 09/21/16 08:20 PATRICK Antibody Screen Negative 09/21/16 08:20 Crossmatch See Detail 09/21/16 08:20
--- NOTE | 2016-09-21 11:33 | Progress Note ---
Assessment and Plan (1) Respiratory failure Current Visit: Yes Status: Acute Qualifiers: Chronicity: C Respiratory failure complication: R Plan to address problem: - Hold PSV trials while unstable - VAP bundle addressed - continue to Wean FIO2 for O2 sats>92% - continue VTE prophylaxis (SCD's re: thrombocytopenia) - continue Stress ulcer prophylaxis (Pantoprazole) - continuing sedation vacations while watching for any obvious seizure activity - continue Lung protective strategies - continue gentle diuresis now with better BP's and stopped IVF - seen by surgery and consent to be obtained today for trach +/- PEG if technically feasible - following clinically otherwise (2) Shock Current Visit: Yes Status: Acute Plan to address problem: - Treated as septic shock secondary to HCAP earlier - continue strict glycemic control - completed AB's course; trending WBC - ID following - tapering off stress steroids now - continue midodrine for now but tapering - likely hypovolemic shock - to receive 4 units PRBC's in all and will have 2 on hold (3) Acute on chronic diastolic (congestive) heart failure Current Visit: No Status: Acute Plan to address problem: - Documented EF 55% - continue gentle diuresis - Continue to monitoring renal function and electrolyte profile closely - continue to monitor urine output, electrolyte profile (4) Altered mental status Current Visit: Yes Status: Acute Qualifiers: Altered mental status type: unspecified Coma depth: C Coma timing: C Qualified Code(s): R41.82 - Altered mental status, unspecified Plan to address problem: - Neurology following - on keppra - weaned off ativan and will use prn now - TSH elevated and started on low dose levoxyl (5) Morbid obesity Current Visit: Yes Status: Acute Qualifiers: Obesity type: unspecified obesity type Qualified Code(s): E66.01 - Morbid ( severe) obesity due to excess calories - weight loss strategies once more stable - caloric intake per pre algebra teacher at this point (6) Anemia Current Visit: Yes Status: Acute Qualifiers: Anemia type: unspecified type Iron deficiency anemia type: I Vitamin B12 deficiency anemia type: V Folate deficiency anemia type: F Bone marrow failure anemia type: B Hemolytic anemia type: H Other causes of anemia: O Qualified Code(s): D64.9 - Anemia, unspecified Plan to address problem: - acute GI bleed - to receive 4 units PRBC's in all and will have 2 on hold - GI evaluation ordered - begin protonix drip - trend H&H (7) Status epilepticus Current Visit: Yes Status: Acute Plan to address problem: - Continue AEDs - Neurology following - no obvious clinical seizure activity (8) 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 - This could be secondary to an intra-cranial process, however unable to obtain neuro-imaging, patient's weight exceeds allowable maximum (9) Discharge planning issues Current Visit: Yes Status: Acute Plan to address problem: - Continue current care. - need to determine appropriate power of claims attorney / legal healthcare printing sales representative prior to any tentative withdrawal of care - son came by and signed DNR order however no consensus on hospice care / withdrawal - LTAC refused admission ..she remains critically ill on life sustaining interventions including MVS and back on vasopressors at high risk for further deterioration including ....38' CCT Subjective Date of service: 09/21/16 Principal diagnosis: Acute Hypoxemic Hypercapnic Resp Failure; Severe Sepsis Interval history: Seen and examined at bedside; 24 hour events reviewed; nursing and respiratory care staff consulted; no adverse overnight events reported to me; decompensated earlierr today; became tachycardic; Hb dropped top 4.6 and back on pressors ( levophed); AMS is persistent Objective Vital Signs - 12hr 09/20/16 09/20/16 09/20/16 23:41 23:51 23:52 Temperature Pulse Rate 55 L 70 98 H Pulse Rate [ Anterior Bilateral Throughout] Pulse Rate [ From Monitor] Pulse Rate [ Left Dorsalis Pedis] Pulse Rate [ Right Dorsalis Pedis] Pulse Rate [ Right Radial] Respiratory 27 H 32 H Rate Respiratory Rate [Anterior Bilateral Throughout] Blood Pressure 80/31 74/34 74/34 O2 Sat by Pulse 98 96 95 Oximetry 09/20/16 09/21/16 09/21/16 23:53 00:00 00:11 Temperature 98.1 F Pulse Rate 66 106 H 95 H Pulse Rate [ Anterior Bilateral Throughout] Pulse Rate [ From Monitor] Pulse Rate [ Left Dorsalis Pedis] Pulse Rate [ Right Dorsalis Pedis] Pulse Rate [ Right Radial] Respiratory 19 31 H 32 H Rate Respiratory Rate [Anterior Bilateral Throughout] Blood Pressure 74/34 81/35 81/35 O2 Sat by Pulse 98 95 95 Oximetry 09/21/16 09/21/16 09/21/16 00:21 00:31 00:48 Temperature Pulse Rate 73 98 H 99 H Pulse Rate [ Anterior Bilateral Throughout] Pulse Rate [ From Monitor] Pulse Rate [ Left Dorsalis Pedis] Pulse Rate [ Right Dorsalis Pedis] Pulse Rate [ Right Radial] Respiratory 22 30 H 28 H Rate Respiratory Rate [Anterior Bilateral Throughout] Blood Pressure 81/35 81/39 O2 Sat by Pulse 95 94 93 Oximetry 09/21/16 09/21/16 09/21/16 00:50 00:58 01:00 Temperature Pulse Rate 93 H 86 101 H Pulse Rate [ Anterior Bilateral Throughout] Pulse Rate [ From Monitor] Pulse Rate [ Left Dorsalis Pedis] Pulse Rate [ Right Dorsalis Pedis] Pulse Rate [ Right Radial] Respiratory 28 H 28 H Rate Respiratory Rate [Anterior Bilateral Throughout] Blood Pressure 74/34 73/44 O2 Sat by Pulse 93 93 Oximetry 09/21/16 09/21/16 09/21/16 01:10 01:20 01:30 Temperature Pulse Rate 103 H 106 H 90 Pulse Rate [ Anterior Bilateral Throughout] Pulse Rate [ From Monitor] Pulse Rate [ Left Dorsalis Pedis] Pulse Rate [ Right Dorsalis Pedis] Pulse Rate [ Right Radial] Respiratory 30 H 31 H 34 H Rate Respiratory Rate [Anterior Bilateral Throughout] Blood Pressure 73/44 108/73 77/29 O2 Sat by Pulse 96 95 95 Oximetry 09/21/16 09/21/16 09/21/16 01:40 01:50 02:00 Temperature Pulse Rate 160 H 119 H 114 H Pulse Rate [ Anterior Bilateral Throughout] Pulse Rate [ From Monitor] Pulse Rate [ Left Dorsalis Pedis] Pulse Rate [ Right Dorsalis Pedis] Pulse Rate [ Right Radial] Respiratory 24 33 H 31 H Rate Respiratory Rate [Anterior Bilateral Throughout] Blood Pressure 77/29 85/32 110/46 O2 Sat by Pulse 94 95 96 Oximetry 09/21/16 09/21/16 09/21/16 02:10 02:20 02:30 Temperature Pulse Rate 111 H 104 H 121 H Pulse Rate [ Anterior Bilateral Throughout] Pulse Rate [ From Monitor] Pulse Rate [ Left Dorsalis Pedis] Pulse Rate [ Right Dorsalis Pedis] Pulse Rate [ Right Radial] Respiratory 31 H 33 H 39 H Rate Respiratory Rate [Anterior Bilateral Throughout] Blood Pressure 75/42 80/34 80/34 O2 Sat by Pulse 95 94 Oximetry 09/21/16 09/21/16 09/21/16 02:40 02:50 03:00 Temperature Pulse Rate 107 H 103 H 93 H Pulse Rate [ Anterior Bilateral Throughout] Pulse Rate [ From Monitor] Pulse Rate [ Left Dorsalis Pedis] Pulse Rate [ Right Dorsalis Pedis] Pulse Rate [ Right Radial] Respiratory 30 H 32 H 30 H Rate Respiratory Rate [Anterior Bilateral Throughout] Blood Pressure 68/51 101/29 110/53 O2 Sat by Pulse Oximetry 09/21/16 09/21/16 09/21/16 03:10 03:20 03:30 Temperature Pulse Rate 97 H 108 H 108 H Pulse Rate [ Anterior Bilateral Throughout] Pulse Rate [ 108 H From Monitor] Pulse Rate [ 108 H Left Dorsalis Pedis] Pulse Rate [ 108 H Right Dorsalis Pedis] Pulse Rate [ 108 H Right Radial] Respiratory 33 H 31 H 33 H Rate Respiratory Rate [Anterior Bilateral Throughout] Blood Pressure 101/29 119/43 115/32 O2 Sat by Pulse 97 Oximetry 09/21/16 09/21/16 09/21/16 03:38 03:40 03:50 Temperature 98.9 F Pulse Rate 79 110 H Pulse Rate [ Anterior Bilateral Throughout] Pulse Rate [ From Monitor] Pulse Rate [ Left Dorsalis Pedis] Pulse Rate [ Right Dorsalis Pedis] Pulse Rate [ Right Radial] Respiratory 32 H 31 H Rate Respiratory Rate [Anterior Bilateral Throughout] Blood Pressure 115/32 87/48 O2 Sat by Pulse Oximetry 09/21/16 09/21/16 09/21/16 04:00 04:10 04:15 Temperature Pulse Rate 100 H 91 H 106 H Pulse Rate [ Anterior Bilateral Throughout] Pulse Rate [ From Monitor] Pulse Rate [ Left Dorsalis Pedis] Pulse Rate [ Right Dorsalis Pedis] Pulse Rate [ Right Radial] Respiratory 32 H 31 H Rate Respiratory Rate [Anterior Bilateral Throughout] Blood Pressure 106/33 106/33 106/33 O2 Sat by Pulse 96 Oximetry 09/21/16 09/21/16 09/21/16 04:20 04:30 04:40 Temperature Pulse Rate 108 H 99 H 110 H Pulse Rate [ Anterior Bilateral Throughout] Pulse Rate [ From Monitor] Pulse Rate [ Left Dorsalis Pedis] Pulse Rate [ Right Dorsalis Pedis] Pulse Rate [ Right Radial] Respiratory 18 34 H 32 H Rate Respiratory Rate [Anterior Bilateral Throughout] Blood Pressure 93/41 88/57 88/57 O2 Sat by Pulse Oximetry 09/21/16 09/21/16 09/21/16 04:50 05:00 05:10 Temperature Pulse Rate 151 H 110 H 125 H Pulse Rate [ Anterior Bilateral Throughout] Pulse Rate [ From Monitor] Pulse Rate [ Left Dorsalis Pedis] Pulse Rate [ Right Dorsalis Pedis] Pulse Rate [ Right Radial] Respiratory 47 H 35 H 43 H Rate Respiratory Rate [Anterior Bilateral Throughout] Blood Pressure 83/60 83/60 98/44 O2 Sat by Pulse Oximetry 09/21/16 09/21/16 09/21/16 05:20 05:30 05:33 Temperature Pulse Rate 110 H 134 H 147 H Pulse Rate [ Anterior Bilateral Throughout] Pulse Rate [ From Monitor] Pulse Rate [ Left Dorsalis Pedis] Pulse Rate [ Right Dorsalis Pedis] Pulse Rate [ Right Radial] Respiratory 39 H 44 H Rate Respiratory Rate [Anterior Bilateral Throughout] Blood Pressure 87/38 87/38 87/38 O2 Sat by Pulse Oximetry 09/21/16 09/21/16 09/21/16 05:40 05:50 06:00 Temperature Pulse Rate 129 H 143 H 125 H Pulse Rate [ Anterior Bilateral Throughout] Pulse Rate [ From Monitor] Pulse Rate [ Left Dorsalis Pedis] Pulse Rate [ Right Dorsalis Pedis] Pulse Rate [ Right Radial] Respiratory 46 H 40 H 46 H Rate Respiratory Rate [Anterior Bilateral Throughout] Blood Pressure 93/45 87/39 103/26 O2 Sat by Pulse Oximetry 09/21/16 09/21/16 09/21/16 06:10 06:20 06:30 Temperature Pulse Rate 139 H 133 H 177 H Pulse Rate [ Anterior Bilateral Throughout] Pulse Rate [ From Monitor] Pulse Rate [ Left Dorsalis Pedis] Pulse Rate [ Right Dorsalis Pedis] Pulse Rate [ Right Radial] Respiratory 42 H 43 H 47 H Rate Respiratory Rate [Anterior Bilateral Throughout] Blood Pressure 103/26 104/26 104/26 O2 Sat by Pulse Oximetry 09/21/16 09/21/16 09/21/16 06:40 06:50 07:00 Temperature Pulse Rate 164 H 114 H 132 H Pulse Rate [ Anterior Bilateral Throughout] Pulse Rate [ From Monitor] Pulse Rate [ Left Dorsalis Pedis] Pulse Rate [ Right Dorsalis Pedis] Pulse Rate [ Right Radial] Respiratory 39 H 40 H 33 H Rate Respiratory Rate [Anterior Bilateral Throughout] Blood Pressure 99/42 82/44 90/51 O2 Sat by Pulse Oximetry 09/21/16 09/21/16 09/21/16 07:10 07:20 07:30 Temperature Pulse Rate 107 H 168 H 137 H Pulse Rate [ Anterior Bilateral Throughout] Pulse Rate [ From Monitor] Pulse Rate [ Left Dorsalis Pedis] Pulse Rate [ Right Dorsalis Pedis] Pulse Rate [ Right Radial] Respiratory 46 H 41 H 40 H Rate Respiratory Rate [Anterior Bilateral Throughout] Blood Pressure 90/51 84/45 94/47 O2 Sat by Pulse Oximetry 09/21/16 09/21/16 09/21/16 07:40 07:50 08:00 Temperature 98.5 F Pulse Rate 128 H 118 H 125 H Pulse Rate [ Anterior Bilateral Throughout] Pulse Rate [ From Monitor] Pulse Rate [ Left Dorsalis Pedis] Pulse Rate [ Right Dorsalis Pedis] Pulse Rate [ Right Radial] Respiratory 43 H 42 H 41 H Rate Respiratory Rate [Anterior Bilateral Throughout] Blood Pressure 94/47 104/47 96/37 O2 Sat by Pulse 95 Oximetry 09/21/16 09/21/16 09/21/16 08:10 08:20 08:26 Temperature Pulse Rate 125 H 120 H 114 H Pulse Rate [ Anterior Bilateral Throughout] Pulse Rate [ From Monitor] Pulse Rate [ Left Dorsalis Pedis] Pulse Rate [ Right Dorsalis Pedis] Pulse Rate [ Right Radial] Respiratory 42 H 41 H Rate Respiratory Rate [Anterior Bilateral Throughout] Blood Pressure 96/37 108/19 108/19 O2 Sat by Pulse 95 Oximetry 09/21/16 09/21/16 09/21/16 08:30 08:40 08:50 Temperature Pulse Rate 114 H 118 H 118 H Pulse Rate [ 126 H Anterior Bilateral Throughout] Pulse Rate [ From Monitor] Pulse Rate [ Left Dorsalis Pedis] Pulse Rate [ Right Dorsalis Pedis] Pulse Rate [ Right Radial] Respiratory 41 H 41 H 43 H Rate Respiratory 44 H Rate [Anterior Bilateral Throughout] Blood Pressure 112/19 99/28 122/48 O2 Sat by Pulse 100 100 Oximetry 09/21/16 09/21/16 09/21/16 09:00 09:10 09:13 Temperature Pulse Rate 106 H 104 H Pulse Rate [ 116 H Anterior Bilateral Throughout] Pulse Rate [ From Monitor] Pulse Rate [ Left Dorsalis Pedis] Pulse Rate [ Right Dorsalis Pedis] Pulse Rate [ Right Radial] Respiratory 40 H 43 H Rate Respiratory 42 H Rate [Anterior Bilateral Throughout] Blood Pressure 122/48 101/24 O2 Sat by Pulse 100 100 Oximetry 09/21/16 09/21/16 09/21/16 09:20 09:30 09:40 Temperature Pulse Rate 96 H 126 H 118 H Pulse Rate [ Anterior Bilateral Throughout] Pulse Rate [ From Monitor] Pulse Rate [ Left Dorsalis Pedis] Pulse Rate [ Right Dorsalis Pedis] Pulse Rate [ Right Radial] Respiratory 46 H 40 H 41 H Rate Respiratory Rate [Anterior Bilateral Throughout] Blood Pressure 108/74 108/74 118/43 O2 Sat by Pulse 100 87 Oximetry 09/21/16 09/21/16 09/21/16 09:50 10:00 10:10 Temperature Pulse Rate 116 H 118 H 114 H Pulse Rate [ Anterior Bilateral Throughout] Pulse Rate [ From Monitor] Pulse Rate [ Left Dorsalis Pedis] Pulse Rate [ Right Dorsalis Pedis] Pulse Rate [ Right Radial] Respiratory 34 H 40 H 46 H Rate Respiratory Rate [Anterior Bilateral Throughout] Blood Pressure 133/44 101/29 101/29 O2 Sat by Pulse 98 100 Oximetry 09/21/16 09/21/16 09/21/16 10:20 10:30 10:40 Temperature Pulse Rate 113 H 122 H 114 H Pulse Rate [ Anterior Bilateral Throughout] Pulse Rate [ From Monitor] Pulse Rate [ Left Dorsalis Pedis] Pulse Rate [ Right Dorsalis Pedis] Pulse Rate [ Right Radial] Respiratory 42 H 37 H 45 H Rate Respiratory Rate [Anterior Bilateral Throughout] Blood Pressure 98/41 91/31 91/31 O2 Sat by Pulse 97 79 L 99 Oximetry 09/21/16 09/21/16 09/21/16 10:50 11:00 11:01 Temperature 98.5 F Pulse Rate 120 H 117 H 124 H Pulse Rate [ Anterior Bilateral Throughout] Pulse Rate [ From Monitor] Pulse Rate [ Left Dorsalis Pedis] Pulse Rate [ Right Dorsalis Pedis] Pulse Rate [ Right Radial] Respiratory 42 H 36 H 42 H Rate Respiratory Rate [Anterior Bilateral Throughout] Blood Pressure 100/59 100/59 76/43 O2 Sat by Pulse 87 91 Oximetry 09/21/16 11:10 Temperature Pulse Rate 125 H Pulse Rate [ Anterior Bilateral Throughout] Pulse Rate [ From Monitor] Pulse Rate [ Left Dorsalis Pedis] Pulse Rate [ Right Dorsalis Pedis] Pulse Rate [ Right Radial] Respiratory 39 H Rate Respiratory Rate [Anterior Bilateral Throughout] Blood Pressure 79/42 O2 Sat by Pulse 87 Oximetry Constitutional: no acute distress, other (encephalopathic) Eyes: non-icteric ENT: oropharynx moist Neck: supple, no lymphadenopathy Effort: mildly labored Ascultation: Bilateral: diminished breath sounds (bases), rales Cardiovascular: regular rate and rhythm Gastrointestinal: hypoactive bowel sounds, soft, non-tender, non-distended Integumentary: normal Extremities: no cyanosis, pulses normal, no ischemia or petechiae, edema (1++) Neurologic: unable to assess, other (lethargic) Psychiatric: other (sedated) CBC and BMP: 09/21/16 05:15 09/21/16 05:15 ABG, PT/INR, D-dimer: ABG POC ABG pH 7.454 (7.35-7.45) H 09/09/16 12:33 POC ABG pCO2 38.4 (35-45) 09/09/16 12:33 POC ABG pO2 75 (80-105) L 09/09/16 12:33 POC ABG HCO3 27.0 09/09/16 12:33 POC ABG Total CO2 28 09/09/16 12:33 POC ABG O2 Sat 96 09/09/16 12:33 PT/INR, D-dimer PT 13.8 Sec. (12.2-14.9) 09/10/16 05:10 INR 1.07 (0.87-1.13) 09/10/16 05:10 Abnormal lab findings: Abnormal Labs 08/29/16 08/30/16 08/30/16 21:59 00:16 05:39 WBC RBC Hgb Hct MCV MCH MCHC RDW Plt Count Seg Neutrophils % Seg Neuts % (Manual) Nucleated RBC % Seg Neutrophils # Seg Neutrophils # Man PT INR POC ABG pH POC ABG pCO2 POC ABG pO2 Sodium Potassium Chloride Carbon Dioxide BUN Creatinine Glucose POC Glucose 106 H 128 H Lactic Acid Calcium Magnesium Total Bilirubin AST ALT Alkaline Phosphatase Ammonia Troponin T C-Reactive Protein Total Protein Albumin Prealbumin 0.120 L TSH Crossmatch 08/30/16 08/30/16 08/30/16 10:30 10:30 11:12 WBC 11.1 H RBC 3.16 L Hgb 8.7 L Hct 29.9 L MCV MCH MCHC 29 L RDW 25.0 H Plt Count Seg Neutrophils % 78.6 H Seg Neuts % (Manual) Nucleated RBC % Seg Neutrophils # 8.7 H Seg Neutrophils # Man PT INR POC ABG pH POC ABG pCO2 POC ABG pO2 Sodium 135 L Potassium Chloride Carbon Dioxide 20 L BUN Creatinine 1.5 H Glucose 148 H POC Glucose 142 H Lactic Acid Calcium 7.2 L Magnesium Total Bilirubin 1.30 H AST 143 H ALT Alkaline Phosphatase 392 H Ammonia Troponin T C-Reactive Protein Total Protein 6.1 L Albumin 1.2 L Prealbumin TSH Crossmatch 08/30/16 08/30/16 08/30/16 17:41 18:03 18:18 WBC RBC Hgb Hct MCV MCH MCHC RDW Plt Count Seg Neutrophils % Seg Neuts % (Manual) Nucleated RBC % Seg Neutrophils # Seg Neutrophils # Man PT INR POC ABG pH 7.316 L POC ABG pCO2 POC ABG pO2 44 L 59 L Sodium Potassium Chloride Carbon Dioxide BUN Creatinine Glucose POC Glucose 150 H Lactic Acid Calcium Magnesium Total Bilirubin AST ALT Alkaline Phosphatase Ammonia Troponin T C-Reactive Protein Total Protein Albumin Prealbumin TSH Crossmatch 08/30/16 08/30/16 08/31/16 22:20 22:20 00:11 WBC RBC Hgb Hct MCV MCH MCHC RDW Plt Count Seg Neutrophils % Seg Neuts % (Manual) Nucleated RBC % Seg Neutrophils # Seg Neutrophils # Man PT INR POC ABG pH POC ABG pCO2 POC ABG pO2 Sodium Potassium Chloride Carbon Dioxide BUN Creatinine Glucose POC Glucose 133 H Lactic Acid 2.30 H* Calcium Magnesium Total Bilirubin AST ALT Alkaline Phosphatase Ammonia Troponin T C-Reactive Protein 10.20 H Total Protein Albumin Prealbumin TSH Crossmatch 08/31/16 08/31/16 08/31/16 04:20 04:20 04:20 WBC 18.3 H RBC 3.19 L Hgb 8.8 L Hct 30.0 L MCV MCH 27 L MCHC 29 L RDW 23.9 H Plt Count Seg Neutrophils % Seg Neuts % (Manual) Nucleated RBC % Seg Neutrophils # Seg Neutrophils # Man PT 16.8 H INR 1.37 H POC ABG pH POC ABG pCO2 POC ABG pO2 Sodium 136 L Potassium Chloride Carbon Dioxide 19 L BUN Creatinine 1.5 H Glucose 125 H POC Glucose Lactic Acid Calcium 7.0 L Magnesium Total Bilirubin 1.50 H AST 131 H ALT Alkaline Phosphatase 431 H Ammonia Troponin T C-Reactive Protein Total Protein 6.2 L Albumin 1.2 L Prealbumin TSH Crossmatch 08/31/16 08/31/16 08/31/16 04:20 05:22 05:24 WBC RBC Hgb Hct MCV MCH MCHC RDW Plt Count Seg Neutrophils % Seg Neuts % (Manual) Nucleated RBC % Seg Neutrophils # Seg Neutrophils # Man PT INR POC ABG pH POC ABG pCO2 POC ABG pO2 142 H Sodium Potassium Chloride Carbon Dioxide BUN Creatinine Glucose POC Glucose 123 H Lactic Acid Calcium Magnesium Total Bilirubin AST ALT Alkaline Phosphatase Ammonia 70.0 H Troponin T C-Reactive Protein Total Protein Albumin Prealbumin TSH Crossmatch 08/31/16 08/31/16 08/31/16 12:10 15:45 17:38 WBC RBC Hgb Hct MCV MCH MCHC RDW Plt Count Seg Neutrophils % Seg Neuts % (Manual) Nucleated RBC % Seg Neutrophils # Seg Neutrophils # Man PT INR POC ABG pH POC ABG pCO2 POC ABG pO2 Sodium 136 L Potassium Chloride Carbon Dioxide 21 L BUN Creatinine 1.5 H Glucose 160 H POC Glucose 147 H 151 H Lactic Acid Calcium 6.9 L Magnesium Total Bilirubin AST ALT Alkaline Phosphatase Ammonia Troponin T 0.109 H* D C-Reactive Protein Total Protein Albumin Prealbumin TSH Crossmatch 09/01/16 09/01/16 09/01/16 00:09 04:00 04:00 WBC 14.8 H RBC 2.89 L Hgb 7.8 L Hct 27.2 L MCV MCH 27 L MCHC 29 L RDW 24.4 H Plt Count Seg Neutrophils % Seg Neuts % (Manual) Nucleated RBC % Seg Neutrophils # Seg Neutrophils # Man PT 18.2 H INR 1.51 H POC ABG pH POC ABG pCO2 POC ABG pO2 Sodium Potassium Chloride Carbon Dioxide BUN Creatinine Glucose POC Glucose 192 H Lactic Acid Calcium Magnesium Total Bilirubin AST ALT Alkaline Phosphatase Ammonia Troponin T C-Reactive Protein Total Protein Albumin Prealbumin TSH Crossmatch 09/01/16 09/01/16 09/01/16 04:00 05:28 11:28 WBC RBC Hgb Hct MCV MCH MCHC RDW Plt Count Seg Neutrophils % Seg Neuts % (Manual) Nucleated RBC % Seg Neutrophils # Seg Neutrophils # Man PT INR POC ABG pH POC ABG pCO2 POC ABG pO2 Sodium Potassium Chloride Carbon Dioxide 20 L BUN Creatinine 1.6 H Glucose 183 H POC Glucose 189 H 207 H Lactic Acid Calcium 6.9 L Magnesium Total Bilirubin 1.30 H AST 138 H ALT Alkaline Phosphatase 520 H Ammonia Troponin T C-Reactive Protein Total Protein 6.1 L Albumin 1.2 L Prealbumin TSH Crossmatch 09/01/16 09/01/16 09/02/16 16:56 23:49 05:00 WBC RBC Hgb Hct MCV MCH MCHC RDW Plt Count Seg Neutrophils % Seg Neuts % (Manual) Nucleated RBC % Seg Neutrophils # Seg Neutrophils # Man PT 18.0 H INR 1.49 H POC ABG pH POC ABG pCO2 POC ABG pO2 Sodium Potassium Chloride Carbon Dioxide BUN Creatinine Glucose POC Glucose 250 H 307 H Lactic Acid Calcium Magnesium Total Bilirubin AST ALT Alkaline Phosphatase Ammonia Troponin T C-Reactive Protein Total Protein Albumin Prealbumin TSH Crossmatch 09/02/16 09/02/16 09/02/16 05:00 05:00 05:45 WBC 12.3 H RBC 2.57 L Hgb 7.1 L Hct 23.4 L MCV MCH MCHC RDW 23.9 H Plt Count Seg Neutrophils % Seg Neuts % (Manual) 72.0 H Nucleated RBC % 25.0 H Seg Neutrophils # Seg Neutrophils # Man 8.9 H PT INR POC ABG pH POC ABG pCO2 POC ABG pO2 Sodium Potassium Chloride Carbon Dioxide BUN Creatinine 1.4 H Glucose 299 H POC Glucose 327 H Lactic Acid Calcium 7.0 L Magnesium Total Bilirubin AST ALT Alkaline Phosphatase Ammonia Troponin T C-Reactive Protein Total Protein Albumin Prealbumin TSH Crossmatch 09/02/16 09/02/16 09/02/16 12:22 17:22 23:24 WBC RBC Hgb Hct MCV MCH MCHC RDW Plt Count Seg Neutrophils % Seg Neuts % (Manual) Nucleated RBC % Seg Neutrophils # Seg Neutrophils # Man PT INR POC ABG pH POC ABG pCO2 POC ABG pO2 Sodium Potassium Chloride Carbon Dioxide BUN Creatinine Glucose POC Glucose 310 H 358 H 286 H Lactic Acid Calcium Magnesium Total Bilirubin AST ALT Alkaline Phosphatase Ammonia Troponin T C-Reactive Protein Total Protein Albumin Prealbumin TSH Crossmatch 09/03/16 09/03/16 09/03/16 04:10 04:10 04:10 WBC 11.8 H RBC 2.29 L Hgb 6.1 L Hct 21.0 L MCV MCH 27 L MCHC 29 L RDW 24.1 H Plt Count Seg Neutrophils % Seg Neuts % (Manual) Nucleated RBC % Seg Neutrophils # Seg Neutrophils # Man PT 17.6 H INR 1.45 H POC ABG pH POC ABG pCO2 POC ABG pO2 Sodium Potassium Chloride Carbon Dioxide BUN Creatinine 1.4 H Glucose 301 H POC Glucose Lactic Acid Calcium 7.0 L Magnesium Total Bilirubin AST ALT Alkaline Phosphatase Ammonia Troponin T C-Reactive Protein Total Protein Albumin Prealbumin TSH Crossmatch 09/03/16 09/03/16 09/03/16 05:59 11:36 17:42 WBC RBC Hgb Hct MCV MCH MCHC RDW Plt Count Seg Neutrophils % Seg Neuts % (Manual) Nucleated RBC % Seg Neutrophils # Seg Neutrophils # Man PT INR POC ABG pH POC ABG pCO2 POC ABG pO2 Sodium Potassium Chloride Carbon Dioxide BUN Creatinine Glucose POC Glucose 351 H 285 H 259 H Lactic Acid Calcium Magnesium Total Bilirubin AST ALT Alkaline Phosphatase Ammonia Troponin T C-Reactive Protein Total Protein Albumin Prealbumin TSH Crossmatch 09/03/16 09/04/16 09/04/16 23:00 04:27 05:36 WBC RBC Hgb Hct MCV MCH MCHC RDW Plt Count Seg Neutrophils % Seg Neuts % (Manual) Nucleated RBC % Seg Neutrophils # Seg Neutrophils # Man PT INR POC ABG pH 7.544 H POC ABG pCO2 30.8 L POC ABG pO2 78 L Sodium Potassium Chloride Carbon Dioxide BUN Creatinine Glucose POC Glucose 192 H 228 H Lactic Acid Calcium Magnesium Total Bilirubin AST ALT Alkaline Phosphatase Ammonia Troponin T C-Reactive Protein Total Protein Albumin Prealbumin TSH Crossmatch 09/04/16 09/04/16 09/04/16 06:37 06:37 06:39 WBC 21.0 H RBC 2.22 L Hgb 6.0 L Hct 20.1 L MCV MCH 27 L MCHC RDW 24.3 H Plt Count Seg Neutrophils % Seg Neuts % (Manual) Nucleated RBC % Seg Neutrophils # Seg Neutrophils # Man PT 16.8 H INR 1.37 H POC ABG pH POC ABG pCO2 POC ABG pO2 Sodium Potassium Chloride Carbon Dioxide BUN Creatinine 1.4 H Glucose 201 H POC Glucose Lactic Acid Calcium 7.1 L Magnesium Total Bilirubin AST ALT Alkaline Phosphatase Ammonia Troponin T C-Reactive Protein Total Protein Albumin Prealbumin TSH Crossmatch 09/04/16 09/04/16 09/04/16 12:14 15:47 17:41 WBC RBC Hgb Hct MCV MCH MCHC RDW Plt Count Seg Neutrophils % Seg Neuts % (Manual) Nucleated RBC % Seg Neutrophils # Seg Neutrophils # Man PT INR POC ABG pH POC ABG pCO2 POC ABG pO2 Sodium Potassium Chloride Carbon Dioxide BUN Creatinine Glucose POC Glucose 176 H 218 H Lactic Acid Calcium Magnesium Total Bilirubin AST ALT Alkaline Phosphatase Ammonia Troponin T C-Reactive Protein Total Protein Albumin Prealbumin TSH Crossmatch See Detail 09/04/16 09/04/16 09/05/16 21:59 23:48 04:30 WBC RBC Hgb Hct MCV MCH MCHC RDW Plt Count Seg Neutrophils % Seg Neuts % (Manual) Nucleated RBC % Seg Neutrophils # Seg Neutrophils # Man PT 17.2 H INR 1.41 H POC ABG pH POC ABG pCO2 POC ABG pO2 Sodium Potassium Chloride Carbon Dioxide BUN Creatinine Glucose POC Glucose 170 H 121 H Lactic Acid Calcium Magnesium Total Bilirubin AST ALT Alkaline Phosphatase Ammonia Troponin T C-Reactive Protein Total Protein Albumin Prealbumin TSH Crossmatch 09/05/16 09/05/16 09/05/16 04:30 04:30 05:09 WBC 31.9 H RBC 3.11 L Hgb 8.5 L Hct 28.3 L D MCV MCH 27 L MCHC RDW 21.0 H Plt Count Seg Neutrophils % Seg Neuts % (Manual) Nucleated RBC % Seg Neutrophils # Seg Neutrophils # Man PT INR POC ABG pH 7.226 L POC ABG pCO2 61.6 H POC ABG pO2 68 L Sodium 134 L Potassium 5.5 H Chloride 96.6 L Carbon Dioxide BUN 23 H Creatinine 1.6 H Glucose 116 H POC Glucose Lactic Acid Calcium 7.1 L Magnesium Total Bilirubin AST ALT Alkaline Phosphatase Ammonia Troponin T C-Reactive Protein Total Protein Albumin Prealbumin TSH Crossmatch 09/05/16 09/05/16 09/05/16 05:33 12:08 17:32 WBC RBC Hgb Hct MCV MCH MCHC RDW Plt Count Seg Neutrophils % Seg Neuts % (Manual) Nucleated RBC % Seg Neutrophils # Seg Neutrophils # Man PT INR POC ABG pH POC ABG pCO2 POC ABG pO2 Sodium Potassium Chloride Carbon Dioxide BUN Creatinine Glucose POC Glucose 114 H 147 H 174 H Lactic Acid Calcium Magnesium Total Bilirubin AST ALT Alkaline Phosphatase Ammonia Troponin T C-Reactive Protein Total Protein Albumin Prealbumin TSH Crossmatch 09/06/16 09/06/16 09/06/16 03:30 03:30 03:30 WBC 25.4 H RBC 2.57 L Hgb 7.2 L Hct 22.8 L MCV MCH MCHC RDW 20.9 H Plt Count 138 L Seg Neutrophils % Seg Neuts % (Manual) Nucleated RBC % Seg Neutrophils # Seg Neutrophils # Man PT 16.4 H INR 1.33 H POC ABG pH POC ABG pCO2 POC ABG pO2 Sodium Potassium Chloride Carbon Dioxide BUN 36 H Creatinine 1.9 H Glucose POC Glucose Lactic Acid Calcium 7.2 L Magnesium Total Bilirubin AST ALT Alkaline Phosphatase Ammonia Troponin T C-Reactive Protein Total Protein Albumin Prealbumin TSH Crossmatch 09/06/16 09/06/16 09/06/16 11:07 12:03 14:44 WBC RBC Hgb Hct MCV MCH MCHC RDW Plt Count Seg Neutrophils % Seg Neuts % (Manual) Nucleated RBC % Seg Neutrophils # Seg Neutrophils # Man PT INR POC ABG pH POC ABG pCO2 POC ABG pO2 Sodium Potassium Chloride Carbon Dioxide BUN Creatinine Glucose POC Glucose 61 L 55 L Lactic Acid Calcium Magnesium Total Bilirubin AST ALT Alkaline Phosphatase Ammonia Troponin T 0.080 H C-Reactive Protein Total Protein Albumin Prealbumin TSH Crossmatch 09/06/16 09/06/16 09/07/16 21:05 23:53 03:36 WBC RBC Hgb Hct MCV MCH MCHC RDW Plt Count Seg Neutrophils % Seg Neuts % (Manual) Nucleated RBC % Seg Neutrophils # Seg Neutrophils # Man PT INR POC ABG pH POC ABG pCO2 POC ABG pO2 Sodium Potassium Chloride Carbon Dioxide BUN Creatinine Glucose POC Glucose 140 H 178 H 243 H Lactic Acid Calcium Magnesium Total Bilirubin AST ALT Alkaline Phosphatase Ammonia Troponin T C-Reactive Protein Total Protein Albumin Prealbumin TSH Crossmatch 09/07/16 09/07/16 09/07/16 03:42 03:42 05:04 WBC 17.3 H RBC 2.69 L Hgb 7.6 L Hct 23.8 L MCV MCH MCHC RDW 20.5 H Plt Count 137 L Seg Neutrophils % Seg Neuts % (Manual) Nucleated RBC % Seg Neutrophils # Seg Neutrophils # Man PT INR POC ABG pH POC ABG pCO2 POC ABG pO2 Sodium Potassium 3.3 L Chloride Carbon Dioxide BUN 38 H Creatinine 1.6 H Glucose 201 H POC Glucose 241 H Lactic Acid Calcium 7.4 L Magnesium Total Bilirubin AST ALT Alkaline Phosphatase Ammonia Troponin T C-Reactive Protein Total Protein Albumin Prealbumin TSH Crossmatch 09/07/16 09/07/16 09/07/16 11:46 17:41 23:18 WBC RBC Hgb Hct MCV MCH MCHC RDW Plt Count Seg Neutrophils % Seg Neuts % (Manual) Nucleated RBC % Seg Neutrophils # Seg Neutrophils # Man PT INR POC ABG pH POC ABG pCO2 POC ABG pO2 Sodium Potassium Chloride Carbon Dioxide BUN Creatinine Glucose POC Glucose 313 H 227 H 116 H Lactic Acid Calcium Magnesium Total Bilirubin AST ALT Alkaline Phosphatase Ammonia Troponin T C-Reactive Protein Total Protein Albumin Prealbumin TSH Crossmatch 09/08/16 09/08/16 09/08/16 04:00 04:00 05:15 WBC 18.4 H RBC 2.43 L Hgb 6.9 L Hct 21.5 L MCV MCH MCHC RDW 20.5 H Plt Count 119 L Seg Neutrophils % Seg Neuts % (Manual) Nucleated RBC % Seg Neutrophils # Seg Neutrophils # Man PT INR POC ABG pH 7.458 H POC ABG pCO2 POC ABG pO2 177 H Sodium Potassium 3.5 L Chloride Carbon Dioxide BUN 37 H Creatinine 1.3 H Glucose POC Glucose Lactic Acid Calcium 7.1 L Magnesium Total Bilirubin AST ALT Alkaline Phosphatase Ammonia Troponin T C-Reactive Protein Total Protein Albumin Prealbumin TSH Crossmatch 09/08/16 09/08/16 09/08/16 11:00 15:58 23:16 WBC RBC Hgb Hct MCV MCH MCHC RDW Plt Count Seg Neutrophils % Seg Neuts % (Manual) Nucleated RBC % Seg Neutrophils # Seg Neutrophils # Man PT INR POC ABG pH POC ABG pCO2 POC ABG pO2 113 H Sodium Potassium Chloride Carbon Dioxide BUN Creatinine Glucose POC Glucose 40 L Lactic Acid Calcium Magnesium Total Bilirubin AST ALT Alkaline Phosphatase Ammonia Troponin T C-Reactive Protein Total Protein Albumin Prealbumin TSH Crossmatch See Detail 09/09/16 09/09/16 09/09/16 05:02 12:33 18:10 WBC RBC Hgb Hct MCV MCH MCHC RDW Plt Count Seg Neutrophils % Seg Neuts % (Manual) Nucleated RBC % Seg Neutrophils # Seg Neutrophils # Man PT INR POC ABG pH 7.454 H POC ABG pCO2 POC ABG pO2 75 L Sodium Potassium Chloride Carbon Dioxide BUN Creatinine Glucose POC Glucose 59 L Lactic Acid Calcium Magnesium Total Bilirubin AST ALT Alkaline Phosphatase Ammonia Troponin T C-Reactive Protein Total Protein Albumin Prealbumin TSH 5.220 H Crossmatch 09/09/16 09/09/16 09/09/16 18:10 18:10 18:42 WBC 17.0 H RBC 2.90 L Hgb 8.5 L Hct 26.1 L MCV MCH MCHC RDW 17.9 H Plt Count 126 L Seg Neutrophils % Seg Neuts % (Manual) Nucleated RBC % Seg Neutrophils # Seg Neutrophils # Man PT INR POC ABG pH POC ABG pCO2 POC ABG pO2 Sodium Potassium Chloride Carbon Dioxide BUN 36 H Creatinine Glucose 133 H POC Glucose 148 H Lactic Acid Calcium 6.9 L Magnesium Total Bilirubin AST 253 H ALT 184 H Alkaline Phosphatase 729 H Ammonia Troponin T C-Reactive Protein Total Protein 5.1 L Albumin 1.7 L Prealbumin TSH Crossmatch 09/09/16 09/10/16 09/10/16 23:22 05:10 11:43 WBC RBC Hgb Hct MCV MCH MCHC RDW Plt Count Seg Neutrophils % Seg Neuts % (Manual) Nucleated RBC % Seg Neutrophils # Seg Neutrophils # Man PT INR POC ABG pH POC ABG pCO2 POC ABG pO2 Sodium Potassium Chloride Carbon Dioxide BUN 35 H Creatinine Glucose 240 H POC Glucose 170 H 268 H Lactic Acid Calcium 6.8 L Magnesium Total Bilirubin AST 226 H ALT 171 H Alkaline Phosphatase 710 H Ammonia Troponin T C-Reactive Protein Total Protein 5.2 L Albumin 1.7 L Prealbumin TSH Crossmatch 09/10/16 09/11/16 09/11/16 17:51 01:07 05:00 WBC RBC Hgb Hct MCV MCH MCHC RDW Plt Count Seg Neutrophils % Seg Neuts % (Manual) Nucleated RBC % Seg Neutrophils # Seg Neutrophils # Man PT INR POC ABG pH POC ABG pCO2 POC ABG pO2 Sodium Potassium 2.9 L* Chloride Carbon Dioxide BUN 35 H Creatinine Glucose 274 H POC Glucose 334 H 223 H Lactic Acid Calcium 6.9 L Magnesium Total Bilirubin AST 167 H ALT 145 H Alkaline Phosphatase 631 H Ammonia Troponin T C-Reactive Protein Total Protein 5.1 L Albumin 1.6 L Prealbumin TSH Crossmatch 09/11/16 09/11/16 09/11/16 05:01 12:16 17:12 WBC RBC Hgb Hct MCV MCH MCHC RDW Plt Count Seg Neutrophils % Seg Neuts % (Manual) Nucleated RBC % Seg Neutrophils # Seg Neutrophils # Man PT INR POC ABG pH POC ABG pCO2 POC ABG pO2 Sodium Potassium Chloride Carbon Dioxide BUN Creatinine Glucose POC Glucose 305 H 219 H 171 H Lactic Acid Calcium Magnesium Total Bilirubin AST ALT Alkaline Phosphatase Ammonia Troponin T C-Reactive Protein Total Protein Albumin Prealbumin TSH Crossmatch 09/11/16 09/12/16 09/12/16 23:35 03:33 05:00 WBC 12.9 H RBC 2.81 L Hgb 8.2 L Hct 25.4 L MCV MCH MCHC RDW 17.9 H Plt Count Seg Neutrophils % Seg Neuts % (Manual) Nucleated RBC % Seg Neutrophils # Seg Neutrophils # Man PT INR POC ABG pH POC ABG pCO2 POC ABG pO2 Sodium Potassium Chloride Carbon Dioxide BUN Creatinine Glucose POC Glucose 216 H 183 H Lactic Acid Calcium Magnesium Total Bilirubin AST ALT Alkaline Phosphatase Ammonia Troponin T C-Reactive Protein Total Protein Albumin Prealbumin TSH Crossmatch 09/12/16 09/12/16 09/12/16 05:00 15:15 18:30 WBC RBC Hgb Hct MCV MCH MCHC RDW Plt Count Seg Neutrophils % Seg Neuts % (Manual) Nucleated RBC % Seg Neutrophils # Seg Neutrophils # Man PT INR POC ABG pH POC ABG pCO2 POC ABG pO2 Sodium Potassium 3.0 L 3.4 L Chloride Carbon Dioxide BUN 33 H Creatinine 0.5 L Glucose POC Glucose 215 H Lactic Acid Calcium 7.0 L Magnesium Total Bilirubin AST ALT Alkaline Phosphatase Ammonia Troponin T C-Reactive Protein Total Protein Albumin Prealbumin TSH Crossmatch 09/12/16 09/13/16 09/13/16 23:17 05:50 05:50 WBC RBC 2.93 L Hgb 8.8 L Hct 26.7 L MCV MCH MCHC RDW 18.0 H Plt Count Seg Neutrophils % Seg Neuts % (Manual) Nucleated RBC % Seg Neutrophils # Seg Neutrophils # Man PT INR POC ABG pH POC ABG pCO2 POC ABG pO2 Sodium Potassium 2.6 L* D Chloride Carbon Dioxide BUN 29 H Creatinine 0.5 L Glucose 106 H POC Glucose 155 H Lactic Acid Calcium 7.3 L Magnesium Total Bilirubin AST ALT Alkaline Phosphatase Ammonia Troponin T C-Reactive Protein Total Protein Albumin Prealbumin TSH Crossmatch 09/13/16 09/13/16 09/13/16 05:53 11:43 15:07 WBC RBC Hgb Hct MCV MCH MCHC RDW Plt Count Seg Neutrophils % Seg Neuts % (Manual) Nucleated RBC % Seg Neutrophils # Seg Neutrophils # Man PT INR POC ABG pH POC ABG pCO2 POC ABG pO2 Sodium Potassium 2.8 L* Chloride Carbon Dioxide BUN Creatinine Glucose POC Glucose 119 H 129 H Lactic Acid Calcium Magnesium Total Bilirubin AST ALT Alkaline Phosphatase Ammonia Troponin T C-Reactive Protein Total Protein Albumin Prealbumin TSH Crossmatch 09/13/16 09/13/16 09/14/16 17:39 23:30 05:34 WBC RBC Hgb Hct MCV MCH MCHC RDW Plt Count Seg Neutrophils % Seg Neuts % (Manual) Nucleated RBC % Seg Neutrophils # Seg Neutrophils # Man PT INR POC ABG pH POC ABG pCO2 POC ABG pO2 Sodium Potassium Chloride Carbon Dioxide BUN Creatinine Glucose POC Glucose 144 H 196 H 175 H Lactic Acid Calcium Magnesium Total Bilirubin AST ALT Alkaline Phosphatase Ammonia Troponin T C-Reactive Protein Total Protein Albumin Prealbumin TSH Crossmatch 09/14/16 09/14/16 09/14/16 06:24 06:24 12:41 WBC RBC 2.82 L Hgb 8.4 L Hct 25.7 L MCV MCH MCHC RDW 18.0 H Plt Count Seg Neutrophils % Seg Neuts % (Manual) Nucleated RBC % Seg Neutrophils # Seg Neutrophils # Man PT INR POC ABG pH POC ABG pCO2 POC ABG pO2 Sodium Potassium 2.9 L* Chloride 107.3 H Carbon Dioxide BUN 26 H Creatinine 0.4 L Glucose 169 H POC Glucose 184 H Lactic Acid Calcium 7.5 L Magnesium Total Bilirubin AST ALT Alkaline Phosphatase Ammonia Troponin T C-Reactive Protein Total Protein Albumin Prealbumin TSH Crossmatch 09/14/16 09/14/16 09/14/16 14:50 17:57 23:34 WBC RBC Hgb Hct MCV MCH MCHC RDW Plt Count Seg Neutrophils % Seg Neuts % (Manual) Nucleated RBC % Seg Neutrophils # Seg Neutrophils # Man PT INR POC ABG pH POC ABG pCO2 POC ABG pO2 Sodium Potassium 3.3 L Chloride Carbon Dioxide BUN Creatinine Glucose POC Glucose 191 H 178 H Lactic Acid Calcium Magnesium Total Bilirubin AST ALT Alkaline Phosphatase Ammonia Troponin T C-Reactive Protein Total Protein Albumin Prealbumin TSH Crossmatch 09/15/16 09/15/16 09/15/16 05:02 07:57 07:57 WBC RBC 3.04 L Hgb 9.2 L Hct 28.2 L MCV MCH MCHC RDW 18.8 H Plt Count Seg Neutrophils % Seg Neuts % (Manual) Nucleated RBC % Seg Neutrophils # Seg Neutrophils # Man PT INR POC ABG pH POC ABG pCO2 POC ABG pO2 Sodium Potassium Chloride 107.2 H Carbon Dioxide BUN 26 H Creatinine 0.4 L Glucose 160 H POC Glucose 192 H Lactic Acid Calcium 7.7 L Magnesium Total Bilirubin AST ALT Alkaline Phosphatase Ammonia Troponin T C-Reactive Protein Total Protein Albumin Prealbumin TSH Crossmatch 09/15/16 09/15/16 09/15/16 11:23 17:51 23:45 WBC RBC Hgb Hct MCV MCH MCHC RDW Plt Count Seg Neutrophils % Seg Neuts % (Manual) Nucleated RBC % Seg Neutrophils # Seg Neutrophils # Man PT INR POC ABG pH POC ABG pCO2 POC ABG pO2 Sodium Potassium Chloride Carbon Dioxide BUN Creatinine Glucose POC Glucose 232 H 240 H 251 H Lactic Acid Calcium Magnesium Total Bilirubin AST ALT Alkaline Phosphatase Ammonia Troponin T C-Reactive Protein Total Protein Albumin Prealbumin TSH Crossmatch 09/16/16 09/16/16 09/16/16 04:55 04:55 05:38 WBC RBC 2.84 L Hgb 8.6 L Hct 26.2 L MCV MCH MCHC RDW 18.8 H Plt Count Seg Neutrophils % Seg Neuts % (Manual) Nucleated RBC % Seg Neutrophils # Seg Neutrophils # Man PT INR POC ABG pH POC ABG pCO2 POC ABG pO2 Sodium Potassium 3.1 L Chloride 107.6 H Carbon Dioxide BUN 25 H Creatinine 0.3 L Glucose 134 H POC Glucose 157 H Lactic Acid Calcium 7.6 L Magnesium Total Bilirubin AST ALT Alkaline Phosphatase Ammonia Troponin T C-Reactive Protein Total Protein Albumin Prealbumin TSH Crossmatch 09/16/16 09/16/16 09/16/16 11:53 17:56 23:54 WBC RBC Hgb Hct MCV MCH MCHC RDW Plt Count Seg Neutrophils % Seg Neuts % (Manual) Nucleated RBC % Seg Neutrophils # Seg Neutrophils # Man PT INR POC ABG pH POC ABG pCO2 POC ABG pO2 Sodium Potassium Chloride Carbon Dioxide BUN Creatinine Glucose POC Glucose 137 H 138 H 179 H Lactic Acid Calcium Magnesium Total Bilirubin AST ALT Alkaline Phosphatase Ammonia Troponin T C-Reactive Protein Total Protein Albumin Prealbumin TSH Crossmatch 09/17/16 09/17/16 09/17/16 05:00 05:00 05:28 WBC RBC 2.77 L Hgb 8.2 L Hct 25.9 L MCV MCH MCHC RDW 19.1 H Plt Count Seg Neutrophils % Seg Neuts % (Manual) Nucleated RBC % Seg Neutrophils # Seg Neutrophils # Man PT INR POC ABG pH POC ABG pCO2 POC ABG pO2 Sodium Potassium 3.5 L Chloride 108.4 H Carbon Dioxide BUN 29 H Creatinine 0.3 L Glucose 117 H POC Glucose 142 H Lactic Acid Calcium 7.4 L Magnesium Total Bilirubin AST ALT Alkaline Phosphatase Ammonia Troponin T C-Reactive Protein Total Protein Albumin Prealbumin TSH Crossmatch 09/17/16 09/17/16 09/18/16 18:07 23:31 06:29 WBC RBC Hgb Hct MCV MCH MCHC RDW Plt Count Seg Neutrophils % Seg Neuts % (Manual) Nucleated RBC % Seg Neutrophils # Seg Neutrophils # Man PT INR POC ABG pH POC ABG pCO2 POC ABG pO2 Sodium Potassium Chloride Carbon Dioxide BUN Creatinine Glucose POC Glucose 173 H 240 H 282 H Lactic Acid Calcium Magnesium Total Bilirubin AST ALT Alkaline Phosphatase Ammonia Troponin T C-Reactive Protein Total Protein Albumin Prealbumin TSH Crossmatch 09/18/16 09/18/16 09/18/16 06:30 12:21 17:55 WBC RBC Hgb Hct MCV MCH MCHC RDW Plt Count Seg Neutrophils % Seg Neuts % (Manual) Nucleated RBC % Seg Neutrophils # Seg Neutrophils # Man PT INR POC ABG pH POC ABG pCO2 POC ABG pO2 Sodium 148 H Potassium Chloride 110.7 H Carbon Dioxide BUN 30 H Creatinine 0.4 L Glucose 249 H POC Glucose 248 H 255 H Lactic Acid Calcium 7.4 L Magnesium 1.60 L Total Bilirubin AST ALT Alkaline Phosphatase Ammonia Troponin T C-Reactive Protein Total Protein Albumin Prealbumin TSH Crossmatch 09/19/16 09/19/16 09/19/16 00:09 04:45 05:11 WBC RBC Hgb Hct MCV MCH MCHC RDW Plt Count Seg Neutrophils % Seg Neuts % (Manual) Nucleated RBC % Seg Neutrophils # Seg Neutrophils # Man PT INR POC ABG pH POC ABG pCO2 POC ABG pO2 Sodium 146 H Potassium Chloride 110.8 H Carbon Dioxide BUN 34 H Creatinine 0.4 L Glucose 278 H POC Glucose 324 H 278 H Lactic Acid Calcium 7.3 L Magnesium Total Bilirubin AST ALT Alkaline Phosphatase Ammonia Troponin T C-Reactive Protein Total Protein Albumin Prealbumin TSH Crossmatch 09/19/16 09/19/16 09/19/16 11:12 12:09 17:10 WBC RBC Hgb Hct MCV MCH MCHC RDW Plt Count Seg Neutrophils % Seg Neuts % (Manual) Nucleated RBC % Seg Neutrophils # Seg Neutrophils # Man PT INR POC ABG pH POC ABG pCO2 POC ABG pO2 Sodium Potassium Chloride Carbon Dioxide BUN Creatinine Glucose POC Glucose 306 H 225 H 329 H Lactic Acid Calcium Magnesium Total Bilirubin AST ALT Alkaline Phosphatase Ammonia Troponin T C-Reactive Protein Total Protein Albumin Prealbumin TSH Crossmatch 09/19/16 09/20/16 09/20/16 23:34 04:52 05:00 WBC RBC Hgb Hct MCV MCH MCHC RDW Plt Count Seg Neutrophils % Seg Neuts % (Manual) Nucleated RBC % Seg Neutrophils # Seg Neutrophils # Man PT INR POC ABG pH POC ABG pCO2 POC ABG pO2 Sodium Potassium Chloride 108.6 H Carbon Dioxide BUN 35 H Creatinine 0.4 L Glucose 370 H POC Glucose 376 H 374 H Lactic Acid Calcium 7.3 L Magnesium Total Bilirubin AST ALT Alkaline Phosphatase Ammonia Troponin T C-Reactive Protein Total Protein Albumin Prealbumin TSH Crossmatch 09/20/16 09/20/16 09/20/16 11:18 17:39 23:49 WBC RBC Hgb Hct MCV MCH MCHC RDW Plt Count Seg Neutrophils % Seg Neuts % (Manual) Nucleated RBC % Seg Neutrophils # Seg Neutrophils # Man PT INR POC ABG pH POC ABG pCO2 POC ABG pO2 Sodium Potassium Chloride Carbon Dioxide BUN Creatinine Glucose POC Glucose 342 H 416 H 440 H Lactic Acid Calcium Magnesium Total Bilirubin AST ALT Alkaline Phosphatase Ammonia Troponin T C-Reactive Protein Total Protein Albumin Prealbumin TSH Crossmatch 09/21/16 09/21/16 09/21/16 04:58 05:15 05:15 WBC RBC 1.48 L Hgb 4.6 L* Hct 14.9 L* MCV 100 H MCH MCHC RDW 25.4 H Plt Count Seg Neutrophils % Seg Neuts % (Manual) Nucleated RBC % Seg Neutrophils # Seg Neutrophils # Man PT INR POC ABG pH POC ABG pCO2 POC ABG pO2 Sodium Potassium Chloride 107.5 H Carbon Dioxide 20 L BUN 45 H Creatinine 0.6 L Glucose 490 H POC Glucose > 500 H Lactic Acid Calcium 7.0 L Magnesium Total Bilirubin AST ALT Alkaline Phosphatase Ammonia Troponin T C-Reactive Protein Total Protein Albumin Prealbumin TSH Crossmatch 09/21/16 08:20 WBC RBC Hgb Hct MCV MCH MCHC RDW Plt Count Seg Neutrophils % Seg Neuts % (Manual) Nucleated RBC % Seg Neutrophils # Seg Neutrophils # Man PT INR POC ABG pH POC ABG pCO2 POC ABG pO2 Sodium Potassium Chloride Carbon Dioxide BUN Creatinine Glucose POC Glucose Lactic Acid Calcium Magnesium Total Bilirubin AST ALT Alkaline Phosphatase Ammonia Troponin T C-Reactive Protein Total Protein Albumin Prealbumin TSH Crossmatch See Detail Allied health notes reviewed: RT
[2016-09-21] MEDS ORDERED: LEVEMIR SUB-Q SCH ×2 (12:00)
[2016-09-21 12:21] LABS: ISTAT Base Excess -3; ISTAT PCO2 29.3 (35-45); ISTAT PH 7.464 (7.35-7.45); ISTAT PO2 198 (80-105); ISTAT SO2 100; ISTAT TCO2 22
[2016-09-21] MEDS ORDERED: PROTONIX IV ONE (13:00)
[2016-09-21] MEDS ORDERED: NACL 0.9% 500 ML 500 ML IV SCH (13:27)
--- NOTE | 2016-09-21 14:20 | Gastroenterology Consultation ---
History of Present Illness - Reason for Consult Consult date: 09/21/16 LGI bleeding Requesting physician: JENNIFER GOLDSTEIN - History of Present Illness The patient is a 61 year old female admitted on 08/29/2016 with approximate respiratory failure and congestive heart failure and consultation has been requested for lower GI bleeding.. He is morbidly obese, weighing over 500 pounds and limited history was available at the time of her admission. Respiratory failure has not improved. The patient deteriorated within the last few days and has been completely unresponsive. She began passing bright red blood per rectum and becoming further hypotensive although she has been on pressors for admittedly throughout this admission. Though she is on DO NOT RESUSCITATE status she has had aggressive medical care despite the apparent dismal prognosis. Past History Past Medical History: anemia, diabetes, hypertension, hyperlipidemia, other ( Morbid Obesity, extreme with the patient weighing over 500 pounds) Social history: single Family history: hypertension Medications and Allergies Allergies Allergy/AdvReac Type Severity Reaction Status Date / Time No Known Allergies Allergy Verified 01/11/16 00:24 Home Medications Medication Instructions Recorded Confirmed Last Taken Type AtorvaSTATin [Lipitor] 20 mg PO QDAY 01/11/16 08/31/16 07/08/16 History Folic Acid [Folvite] 1 mg PO QDAY 01/11/16 08/31/16 07/08/16 History Tizanidine HCl [tiZANidine] 2 mg PO Q8H 01/11/16 08/31/16 07/08/16 History amLODIPine [Norvasc] 10 mg PO DAILY 01/11/16 08/31/16 07/08/16 History Insulin Glargine [Lantus VIAL] 20 units SUB-Q QAMDIAB 30 Days 01/20/16 08/31/16 07/08/16 Rx Insulin Glulisine [Apidra] 6 units SUB-Q AC 30 Days 01/20/16 08/31/16 07/08/16 Rx Pantoprazole [Protonix TAB] 40 mg PO BID #60 tablet 01/21/16 08/31/16 07/08/16 Rx HYDROcodone/APAP 5-325 [[place] 1 each PO Q6HR PRN #10 tablet 02/26/16 08/31/16 Rx 5-325 mg TAB] Blood Sugar Diagnostic [Blood 1 each MC TIDAC #100 strip 05/01/16 08/31/1607/08 Rx Glucose Test Strip] Gabapentin 300 mg PO TID 08/31/16 08/31/16 Unknown History Active Meds: Active Medications Acetaminophen (Tylenol) 650 mg PO Q4H PRN PRN Reason: Pain MILD(1-3)/Fever >100.5/DUBOSE Albuterol (Proventil) 2.5 mg IH Q3HRT PRN PRN Reason: Shortness Of Breath Albuterol/Ipratropium (Duoneb 0.5 Mg-3 Mg/3 Ml Soln) 1 ampul IH Q6HRT [facility] Last Admin: 09/21/16 08:40 Dose: 1 ampul Lipase/Protease/Amylase (Pancreaze Dr 10,500 Unit) 1 each FEEDTUBE PRN PRN PRN Reason: For Clogged Feeding Tube Bisacodyl (Dulcolax) 10 mg MS QDAY PRN PRN Reason: Constipation unrelieved by MOM Ferrous Sulfate (Ferrous Sulfate) 300 mg PO QDAY [facility] Last Admin: 09/20/16 10:31 Dose: 300 mg Folic Acid (Folvite) 1 mg PO DAILY [facility] Last Admin: 09/21/16 10:18 Dose: 1 mg Furosemide (Lasix) 20 mg IV QDAY [facility] Last Admin: 09/20/16 10:31 Dose: 20 mg Hydrophilic Ointment (Vaseline Lip Therapy) 1 applic TP Q2HR PRN PRN Reason: Dry Lips Norepinephrine (Levophed Drip 4 Mg/Ns 250 Ml) 4 mg in 250 mls @ 7.5 mls/hr IV TITR KATHY; 2 MCG/MIN PRN Reason: Protocol Last Admin: 09/21/16 10:17 Dose: 12 mcg/min, 45 mls/hr Pantoprazole Sodium 80 mg/ (Sodium Chloride) 100 mls @ 10 mls/hr IV DIRECT KATHY PRN Reason: 8 MG/HR Stop: 09/24/16 12:59 Sodium Chloride (Nacl 0.9% 500 Ml) 500 mls @ 0 mls/hr IV ONCE KATHY PRN Reason: As Directed Stop: 09/21/16 23:00 Insulin Aspart (Novolog) 0 units SUB-Q Q4HR KATHY PRN Reason: Protocol Insulin Detemir (Levemir) 15 units SUB-Q Q12H KATHY Lactulose (Cephulac) 20 gm PO Q6H PRN PRN Reason: Constipation Levetiracetam (Keppra) 750 mg PO BID [facility] Last Admin: 09/21/16 10:18 Dose: 750 mg Levothyroxine Sodium (Synthroid) 37.5 mcg IV DAILY [facility] Last Admin: 09/20/16 10:31 Dose: 37.5 mcg Lorazepam (Ativan) 1 mg IV Q5MIN PRN PRN Reason: Seizures Last Admin: 09/15/16 17:37 Dose: 1 mg Magnesium Hydroxide (Milk Of Magnesia) 30 ml PO Q4H PRN PRN Reason: Constipation Metoclopramide HCl (Reglan) 10 mg IV Q6H [facility] Last Admin: 09/21/16 05:29 Dose: 10 mg Metoprolol Tartrate (Lopressor) 25 mg PO Q6H [facility] Last Admin: 09/21/16 05:33 Dose: Not Given Midodrine (Proamatine) 5 mg PO Q8HR [facility] Last Admin: 09/21/16 05:30 Dose: 5 mg Multi-Ingred Cream/Lotion/Oil/Oint (Artificial Tears Ophth Oint) 1 applic OU Q4HR PRN PRN Reason: Dry Eye(s) Last Admin: 09/06/16 06:39 Dose: 1 applic Ondansetron HCl (Zofran) 4 mg IV Q8H PRN PRN Reason: N/V unrelieved by Reglan Potassium Chloride (Potassium Chloride) 20 meq FEEDTUBE QDAY [facility] Last Admin: 09/20/16 10:32 Dose: 20 meq Simple Syrup (Simple Syrup) 15 ml FEEDTUBE PRN PRN PRN Reason: Hypoglycemia Simple Syrup (Simple Syrup) 30 ml FEEDTUBE PRN PRN PRN Reason: Hypoglycemia Sodium Bicarbonate (Sodium Bicarbonate) 325 mg FEEDTUBE PRN PRN PRN Reason: For Clogged Feeding Tube Review of Systems - Review of Systems ROS unobtainable: due to mental status Exam - Constitutional Vital Signs: Temp Pulse Resp BP Pulse Ox 98.8 F 110 H 44 H 108/48 92 09/21/16 13:25 09/21/16 13:25 09/21/16 13:25 09/21/16 13:25 09/21/16 13:25 General appearance: other (morbidly obese -[place] female lying in bed on the ventilator. She is completely unresponsive to verbal commands and noxious stimuli.) - EENT Eyes: other (bowels are nonreactive) - Neck Neck: supple, normal ROM, no masses or JVD - Respiratory Respiratory effort: normal Respiratory: bilateral: CTA - Breasts Breasts: deferred - Cardiovascular Rhythm: regular Heart Sounds: Present: S1 & S2. Absent: gallop, rub - Gastrointestinal General gastrointestinal: Present: soft, non-distended, other (morbidly obese making the exam insensitive or masses or organomegaly). Absent: hepatomegaly, splenomegaly, mass Rectal Exam: deferred, other (right red blood is coming through the rectum) - Genitourinary Female Genitourinary: deferred - Neurologic Neurological: other (unresponsive to deep stimuli) - Labs CBC & Chem 7: 09/21/16 05:15 09/21/16 05:15 Lab Results: Laboratory Results - last 24 hr 09/08/16 09/20/16 09/20/16 11:00 11:18 17:39 WBC RBC Hgb Hct MCV MCH MCHC RDW Plt Count POC ABG pH POC ABG pCO2 POC ABG pO2 POC ABG HCO3 POC ABG Total CO2 POC ABG O2 Sat POC ABG Base Excess FiO2 Sodium Potassium Chloride Carbon Dioxide Anion Gap BUN Creatinine Estimated GFR BUN/Creatinine Ratio Glucose POC Glucose 342 H 416 H Calcium Blood Type Antibody Screen PATRICK Antibody Screen Crossmatch See Detail 09/20/16 09/21/16 09/21/16 23:49 04:58 05:15 WBC 10.8 RBC 1.48 L Hgb 4.6 L* Hct 14.9 L* MCV 100 H MCH 31 MCHC 31 RDW 25.4 H Plt Count 179 POC ABG pH POC ABG pCO2 POC ABG pO2 POC ABG HCO3 POC ABG Total CO2 POC ABG O2 Sat POC ABG Base Excess FiO2 Sodium Potassium Chloride Carbon Dioxide Anion Gap BUN Creatinine Estimated GFR BUN/Creatinine Ratio Glucose POC Glucose 440 H > 500 H Calcium Blood Type Antibody Screen PATRICK Antibody Screen Crossmatch 09/21/16 09/21/16 09/21/16 05:15 08:20 12:09 WBC RBC Hgb Hct MCV MCH MCHC RDW Plt Count POC ABG pH 7.464 H POC ABG pCO2 29.3 L POC ABG pO2 198 H POC ABG HCO3 21.0 POC ABG Total CO2 22 POC ABG O2 Sat 100 POC ABG Base Excess -3 FiO2 40 Sodium 145 Potassium 4.3 Chloride 107.5 H Carbon Dioxide 20 L Anion Gap 22 BUN 45 H Creatinine 0.6 L Estimated GFR > 60 BUN/Creatinine Ratio 75.00 Glucose 490 H POC Glucose Calcium 7.0 L Blood Type O POSITIVE Antibody Screen TNR PATRICK Antibody Screen Negative Crossmatch See Detail Assessment and Plan - Patient Problems (1) Acute respiratory failure Current Visit: Yes Status: Acute Qualifiers: Respiratory failure complication: R (2) Altered mental status Current Visit: Yes Status: Acute Qualifiers: Altered mental status type: unspecified Coma depth: C Coma timing: C Qualified Code(s): R41.82 - Altered mental status, unspecified (3) Morbid obesity Current Visit: Yes Status: Acute Qualifiers: Obesity type: unspecified obesity type Qualified Code(s): E66.01 - Morbid ( severe) obesity due to excess calories (4) Respiratory failure Current Visit: Yes Status: Acute Qualifiers: Chronicity: C Respiratory failure complication: R (5) Shock Current Visit: Yes Status: Acute (6) Chronic diastolic CHF (congestive heart failure) Current Visit: No Status: Chronic (7) Type 2 diabetes mellitus Current Visit: No Status: Chronic Qualifiers: Diabetes mellitus complication status: D Diabetes mellitus complication detail: D Diabetic retinopathy severity: D Proliferative retinopathy type: P Diabetes mellitus macular edema: D Diabetes mellitus intermediate card tender insulin use : D Laterality: L Chronic kidney disease stage: C (8) Lower GI bleeding Current Visit: Yes Status: Acute Plan to address problem: The patient is having an acute lower GI bleed however she is completely unresponsive and is possibly brain . Colonoscopy seems relatively contraindicated in this setting and there is little that I can offer her. I would consider angiography or possibly a bleeding scan, however she may exceed the table limits for the study. The portal care and optimization of her coagulation status seems appropriate at this time. Consultation with the family to assess the level of aggressiveness of her care seems appropriate given the apparent very poor prognosis. Has been on DO NOT RESUSCITATE status
[2016-09-21] MEDS: PROTONIX 80 MG in NACL 0.9% 100 ML IV SCH (14:24)
--- NOTE | 2016-09-21 15:32 | Progress Note ---
Assessment and Plan With the significant deterioration in her physiology over the past 24 hours and discussion about withdrawal of support by some family members along with a pending ethics committee consult we will postpone the tracheostomy and PEG for now. Once her physiology has improved and the ethics committee works out the situation with whether care is to be withdrawn or not we will be available to move forward with rescheduling those procedures. Subjective Date of service: 09/21/16 Patient Reports: Positive: other (Significant events over the past 24 hours are lower GI bleed with hypotension; Back on levophed) Objective Vital Signs - 12hr 09/21/16 09/21/16 09/21/16 03:30 03:38 03:40 Temperature 98.9 F Pulse Rate 108 H 79 Pulse Rate [ Anterior Bilateral Throughout] Pulse Rate [ 108 H From Monitor] Pulse Rate [ 108 H Left Dorsalis Pedis] Pulse Rate [ 108 H Right Dorsalis Pedis] Pulse Rate [ 108 H Right Radial] Respiratory 33 H 32 H Rate Respiratory Rate [Anterior Bilateral Throughout] Blood Pressure 115/32 115/32 O2 Sat by Pulse 97 Oximetry 09/21/16 09/21/16 09/21/16 03:50 04:00 04:10 Temperature Pulse Rate 110 H 100 H 91 H Pulse Rate [ Anterior Bilateral Throughout] Pulse Rate [ From Monitor] Pulse Rate [ Left Dorsalis Pedis] Pulse Rate [ Right Dorsalis Pedis] Pulse Rate [ Right Radial] Respiratory 31 H 32 H 31 H Rate Respiratory Rate [Anterior Bilateral Throughout] Blood Pressure 87/48 106/33 106/33 O2 Sat by Pulse Oximetry 09/21/16 09/21/16 09/21/16 04:15 04:20 04:30 Temperature Pulse Rate 106 H 108 H 99 H Pulse Rate [ Anterior Bilateral Throughout] Pulse Rate [ From Monitor] Pulse Rate [ Left Dorsalis Pedis] Pulse Rate [ Right Dorsalis Pedis] Pulse Rate [ Right Radial] Respiratory 18 34 H Rate Respiratory Rate [Anterior Bilateral Throughout] Blood Pressure 106/33 93/41 88/57 O2 Sat by Pulse 96 Oximetry 09/21/16 09/21/16 09/21/16 04:40 04:50 05:00 Temperature Pulse Rate 110 H 151 H 110 H Pulse Rate [ Anterior Bilateral Throughout] Pulse Rate [ From Monitor] Pulse Rate [ Left Dorsalis Pedis] Pulse Rate [ Right Dorsalis Pedis] Pulse Rate [ Right Radial] Respiratory 32 H 47 H 35 H Rate Respiratory Rate [Anterior Bilateral Throughout] Blood Pressure 88/57 83/60 83/60 O2 Sat by Pulse Oximetry 09/21/16 09/21/16 09/21/16 05:10 05:20 05:30 Temperature Pulse Rate 125 H 110 H 134 H Pulse Rate [ Anterior Bilateral Throughout] Pulse Rate [ From Monitor] Pulse Rate [ Left Dorsalis Pedis] Pulse Rate [ Right Dorsalis Pedis] Pulse Rate [ Right Radial] Respiratory 43 H 39 H 44 H Rate Respiratory Rate [Anterior Bilateral Throughout] Blood Pressure 98/44 87/38 87/38 O2 Sat by Pulse Oximetry 09/21/16 09/21/16 09/21/16 05:33 05:40 05:50 Temperature Pulse Rate 147 H 129 H 143 H Pulse Rate [ Anterior Bilateral Throughout] Pulse Rate [ From Monitor] Pulse Rate [ Left Dorsalis Pedis] Pulse Rate [ Right Dorsalis Pedis] Pulse Rate [ Right Radial] Respiratory 46 H 40 H Rate Respiratory Rate [Anterior Bilateral Throughout] Blood Pressure 87/38 93/45 87/39 O2 Sat by Pulse Oximetry 09/21/16 09/21/16 09/21/16 06:00 06:10 06:20 Temperature Pulse Rate 125 H 139 H 133 H Pulse Rate [ Anterior Bilateral Throughout] Pulse Rate [ From Monitor] Pulse Rate [ Left Dorsalis Pedis] Pulse Rate [ Right Dorsalis Pedis] Pulse Rate [ Right Radial] Respiratory 46 H 42 H 43 H Rate Respiratory Rate [Anterior Bilateral Throughout] Blood Pressure 103/26 103/26 104/26 O2 Sat by Pulse Oximetry 09/21/16 09/21/16 09/21/16 06:30 06:40 06:50 Temperature Pulse Rate 177 H 164 H 114 H Pulse Rate [ Anterior Bilateral Throughout] Pulse Rate [ From Monitor] Pulse Rate [ Left Dorsalis Pedis] Pulse Rate [ Right Dorsalis Pedis] Pulse Rate [ Right Radial] Respiratory 47 H 39 H 40 H Rate Respiratory Rate [Anterior Bilateral Throughout] Blood Pressure 104/26 99/42 82/44 O2 Sat by Pulse Oximetry 09/21/16 09/21/16 09/21/16 07:00 07:10 07:20 Temperature Pulse Rate 132 H 107 H 168 H Pulse Rate [ Anterior Bilateral Throughout] Pulse Rate [ From Monitor] Pulse Rate [ Left Dorsalis Pedis] Pulse Rate [ Right Dorsalis Pedis] Pulse Rate [ Right Radial] Respiratory 33 H 46 H 41 H Rate Respiratory Rate [Anterior Bilateral Throughout] Blood Pressure 90/51 90/51 84/45 O2 Sat by Pulse Oximetry 09/21/16 09/21/16 09/21/16 07:30 07:40 07:50 Temperature Pulse Rate 137 H 128 H 118 H Pulse Rate [ Anterior Bilateral Throughout] Pulse Rate [ From Monitor] Pulse Rate [ Left Dorsalis Pedis] Pulse Rate [ Right Dorsalis Pedis] Pulse Rate [ Right Radial] Respiratory 40 H 43 H 42 H Rate Respiratory Rate [Anterior Bilateral Throughout] Blood Pressure 94/47 94/47 104/47 O2 Sat by Pulse Oximetry 09/21/16 09/21/16 09/21/16 08:00 08:10 08:20 Temperature 98.5 F Pulse Rate 125 H 125 H 120 H Pulse Rate [ Anterior Bilateral Throughout] Pulse Rate [ From Monitor] Pulse Rate [ Left Dorsalis Pedis] Pulse Rate [ Right Dorsalis Pedis] Pulse Rate [ Right Radial] Respiratory 41 H 42 H 41 H Rate Respiratory Rate [Anterior Bilateral Throughout] Blood Pressure 96/37 96/37 108/19 O2 Sat by Pulse 95 Oximetry 09/21/16 09/21/16 09/21/16 08:26 08:30 08:40 Temperature Pulse Rate 114 H 114 H 118 H Pulse Rate [ 126 H Anterior Bilateral Throughout] Pulse Rate [ From Monitor] Pulse Rate [ Left Dorsalis Pedis] Pulse Rate [ Right Dorsalis Pedis] Pulse Rate [ Right Radial] Respiratory 41 H 41 H Rate Respiratory 44 H Rate [Anterior Bilateral Throughout] Blood Pressure 108/19 112/19 99/28 O2 Sat by Pulse 95 100 100 Oximetry 09/21/16 09/21/16 09/21/16 08:50 09:00 09:10 Temperature Pulse Rate 118 H 106 H 104 H Pulse Rate [ Anterior Bilateral Throughout] Pulse Rate [ From Monitor] Pulse Rate [ Left Dorsalis Pedis] Pulse Rate [ Right Dorsalis Pedis] Pulse Rate [ Right Radial] Respiratory 43 H 40 H 43 H Rate Respiratory Rate [Anterior Bilateral Throughout] Blood Pressure 122/48 122/48 101/24 O2 Sat by Pulse 100 100 Oximetry 09/21/16 09/21/16 09/21/16 09:13 09:20 09:30 Temperature Pulse Rate 96 H 126 H Pulse Rate [ 116 H Anterior Bilateral Throughout] Pulse Rate [ From Monitor] Pulse Rate [ Left Dorsalis Pedis] Pulse Rate [ Right Dorsalis Pedis] Pulse Rate [ Right Radial] Respiratory 46 H 40 H Rate Respiratory 42 H Rate [Anterior Bilateral Throughout] Blood Pressure 108/74 108/74 O2 Sat by Pulse 100 Oximetry 09/21/16 09/21/16 09/21/16 09:40 09:50 10:00 Temperature Pulse Rate 118 H 116 H 118 H Pulse Rate [ Anterior Bilateral Throughout] Pulse Rate [ From Monitor] Pulse Rate [ Left Dorsalis Pedis] Pulse Rate [ Right Dorsalis Pedis] Pulse Rate [ Right Radial] Respiratory 41 H 34 H 40 H Rate Respiratory Rate [Anterior Bilateral Throughout] Blood Pressure 118/43 133/44 101/29 O2 Sat by Pulse 87 98 Oximetry 09/21/16 09/21/16 09/21/16 10:10 10:20 10:30 Temperature Pulse Rate 114 H 113 H 122 H Pulse Rate [ Anterior Bilateral Throughout] Pulse Rate [ From Monitor] Pulse Rate [ Left Dorsalis Pedis] Pulse Rate [ Right Dorsalis Pedis] Pulse Rate [ Right Radial] Respiratory 46 H 42 H 37 H Rate Respiratory Rate [Anterior Bilateral Throughout] Blood Pressure 101/29 98/41 91/31 O2 Sat by Pulse 100 97 79 L Oximetry 09/21/16 09/21/16 09/21/16 10:40 10:50 11:00 Temperature Pulse Rate 114 H 120 H 117 H Pulse Rate [ Anterior Bilateral Throughout] Pulse Rate [ From Monitor] Pulse Rate [ Left Dorsalis Pedis] Pulse Rate [ Right Dorsalis Pedis] Pulse Rate [ Right Radial] Respiratory 45 H 42 H 36 H Rate Respiratory Rate [Anterior Bilateral Throughout] Blood Pressure 91/31 100/59 100/59 O2 Sat by Pulse 99 87 91 Oximetry 09/21/16 09/21/16 09/21/16 11:01 11:10 11:15 Temperature 98.5 F 98.5 F Pulse Rate 124 H 125 H 102 H Pulse Rate [ Anterior Bilateral Throughout] Pulse Rate [ From Monitor] Pulse Rate [ Left Dorsalis Pedis] Pulse Rate [ Right Dorsalis Pedis] Pulse Rate [ Right Radial] Respiratory 42 H 39 H 39 H Rate Respiratory Rate [Anterior Bilateral Throughout] Blood Pressure 76/43 79/42 123/48 O2 Sat by Pulse 87 Oximetry 09/21/16 09/21/16 09/21/16 11:20 11:30 11:40 Temperature Pulse Rate 121 H 122 H 116 H Pulse Rate [ Anterior Bilateral Throughout] Pulse Rate [ From Monitor] Pulse Rate [ Left Dorsalis Pedis] Pulse Rate [ Right Dorsalis Pedis] Pulse Rate [ Right Radial] Respiratory 43 H 41 H 45 H Rate Respiratory Rate [Anterior Bilateral Throughout] Blood Pressure 97/37 92/59 92/59 O2 Sat by Pulse 94 100 Oximetry 09/21/16 09/21/16 09/21/16 11:50 12:00 12:10 Temperature 98.7 F Pulse Rate 118 H 121 H 126 H Pulse Rate [ Anterior Bilateral Throughout] Pulse Rate [ From Monitor] Pulse Rate [ Left Dorsalis Pedis] Pulse Rate [ Right Dorsalis Pedis] Pulse Rate [ Right Radial] Respiratory 37 H 37 H 40 H Rate Respiratory Rate [Anterior Bilateral Throughout] Blood Pressure 87/54 87/54 123/48 O2 Sat by Pulse 92 99 Oximetry 09/21/16 09/21/16 09/21/16 12:11 12:20 12:30 Temperature Pulse Rate 102 H 131 H 118 H Pulse Rate [ Anterior Bilateral Throughout] Pulse Rate [ From Monitor] Pulse Rate [ Left Dorsalis Pedis] Pulse Rate [ Right Dorsalis Pedis] Pulse Rate [ Right Radial] Respiratory 36 H 33 H Rate Respiratory Rate [Anterior Bilateral Throughout] Blood Pressure 123/48 108/51 105/20 O2 Sat by Pulse 100 100 95 Oximetry 09/21/16 09/21/16 09/21/16 12:40 12:50 13:01 Temperature Pulse Rate 108 H 174 H Pulse Rate [ Anterior Bilateral Throughout] Pulse Rate [ From Monitor] Pulse Rate [ Left Dorsalis Pedis] Pulse Rate [ Right Dorsalis Pedis] Pulse Rate [ Right Radial] Respiratory 31 H 38 H Rate Respiratory Rate [Anterior Bilateral Throughout] Blood Pressure 105/20 120/75 115/29 O2 Sat by Pulse 98 Oximetry 09/21/16 09/21/16 09/21/16 13:10 13:20 13:25 Temperature 98.6 F 98.8 F Pulse Rate 128 H 124 H 110 H Pulse Rate [ Anterior Bilateral Throughout] Pulse Rate [ From Monitor] Pulse Rate [ Left Dorsalis Pedis] Pulse Rate [ Right Dorsalis Pedis] Pulse Rate [ Right Radial] Respiratory 42 H 28 H 44 H Rate Respiratory Rate [Anterior Bilateral Throughout] Blood Pressure 111/22 115/29 108/48 O2 Sat by Pulse 92 Oximetry 09/21/16 09/21/16 09/21/16 13:30 13:40 13:50 Temperature Pulse Rate 122 H 119 H 112 H Pulse Rate [ Anterior Bilateral Throughout] Pulse Rate [ From Monitor] Pulse Rate [ Left Dorsalis Pedis] Pulse Rate [ Right Dorsalis Pedis] Pulse Rate [ Right Radial] Respiratory 39 H 38 H 37 H Rate Respiratory Rate [Anterior Bilateral Throughout] Blood Pressure 100/54 100/54 114/72 O2 Sat by Pulse Oximetry 09/21/16 09/21/16 09/21/16 14:00 14:10 14:20 Temperature Pulse Rate 114 H 112 H 118 H Pulse Rate [ Anterior Bilateral Throughout] Pulse Rate [ From Monitor] Pulse Rate [ Left Dorsalis Pedis] Pulse Rate [ Right Dorsalis Pedis] Pulse Rate [ Right Radial] Respiratory 15 15 36 H Rate Respiratory Rate [Anterior Bilateral Throughout] Blood Pressure 114/44 114/44 124/64 O2 Sat by Pulse Oximetry 09/21/16 09/21/16 09/21/16 14:24 14:30 14:40 Temperature Pulse Rate 110 H 134 H Pulse Rate [ 107 H Anterior Bilateral Throughout] Pulse Rate [ From Monitor] Pulse Rate [ Left Dorsalis Pedis] Pulse Rate [ Right Dorsalis Pedis] Pulse Rate [ Right Radial] Respiratory 34 H 11 L Rate Respiratory 31 H Rate [Anterior Bilateral Throughout] Blood Pressure 124/64 112/61 O2 Sat by Pulse Oximetry 09/21/16 09/21/16 14:50 15:12 Temperature Pulse Rate 111 H Pulse Rate [ 112 H Anterior Bilateral Throughout] Pulse Rate [ From Monitor] Pulse Rate [ Left Dorsalis Pedis] Pulse Rate [ Right Dorsalis Pedis] Pulse Rate [ Right Radial] Respiratory 32 H Rate Respiratory 34 H Rate [Anterior Bilateral Throughout] Blood Pressure 119/60 O2 Sat by Pulse Oximetry - Neck trachea midline - Abdomen soft - Labs 09/21/16 05:15 09/21/16 05:15 Diabetes panel 09/21/16 Range/Units 05:15 Sodium 145 (137-145) mmol/L Potassium 4.3 (3.6-5.0) mmol/L Chloride 107.5 H (98-107) mmol/L Carbon Dioxide 20 L (22-30) mmol/L BUN 45 H (7-17) mg/dL Creatinine 0.6 L (0.7-1.2) mg/dL Glucose 490 H (65-100) mg/dL Calcium 7.0 L (8.4-10.2) mg/dL Calcium panel 09/21/16 Range/Units 05:15 Calcium 7.0 L (8.4-10.2) mg/dL Pituitary panel 09/21/16 Range/Units 05:15 Sodium 145 (137-145) mmol/L Potassium 4.3 (3.6-5.0) mmol/L Chloride 107.5 H (98-107) mmol/L Carbon Dioxide 20 L (22-30) mmol/L BUN 45 H (7-17) mg/dL Creatinine 0.6 L (0.7-1.2) mg/dL Glucose 490 H (65-100) mg/dL Calcium 7.0 L (8.4-10.2) mg/dL Adrenal panel 09/21/16 Range/Units 05:15 Sodium 145 (137-145) mmol/L Potassium 4.3 (3.6-5.0) mmol/L Chloride 107.5 H (98-107) mmol/L Carbon Dioxide 20 L (22-30) mmol/L BUN 45 H (7-17) mg/dL Creatinine 0.6 L (0.7-1.2) mg/dL Glucose 490 H (65-100) mg/dL Calcium 7.0 L (8.4-10.2) mg/dL
[2016-09-21] MEDS: SYNTHROID IV SCH (15:34)
--- NOTE | 2016-09-21 18:45 | Event Note ---
Date: 09/21/16 Seen by GI team and recommendations noted Still with some intermittent BRBPR BP's holding on 8mics/min of levophed Blood glucose readings remain > 400 AMS is persistent - continue protonix drip - get stat INR - complete PRBC transfusion - serial CBC's in short term - begin IV insulin for better glycemic control ..prognosis guarded
[2016-09-21] MEDS ORDERED: D50W (25GM) IV PRN (19:02)
[2016-09-21] MEDS ORDERED: NovoLIN R 100 UNITS in NACL 0.9% 99 ML IV SCH (20:00)
[2016-09-22] MEDS: PROTONIX 80 MG in NACL 0.9% 100 ML IV SCH ×4 (00:19→21:16)
[2016-09-22 00:54] LABS: Hematocrit 27.5 % (30.3-42.9); Hemoglobin 9.1 gm/dl (10.1-14.3); Mean Corpuscular HGB Conc 33 % (30-34); Mean Corpuscular Hemoglobin 31 pg (28-32); Mean Corpuscular Volume 93 fl (79-97); Platelet Count 146 K/mm3 (140-440); Red Blood Count 2.94 M/mm3 (3.65-5.03); Red Cell Distribution Width 16.7 % (13.2-15.2); White Blood Count 14.8 K/mm3 (4.5-11.0)
[2016-09-22] MEDS: DUONEB 0.5 MG-3 MG/3 ML SOLN IH SCH ×4 (02:24→20:24)
[2016-09-22 03:38] LABS: ISTAT Base Excess -3; ISTAT HCO3 21.3; ISTAT PCO2 29.9 (35-45); ISTAT PO2 112 (80-105); ISTAT SO2 99; ISTAT TCO2 22
[2016-09-22] MEDS: KEPPRA PO SCH ×3 (06:32→22:00)
[2016-09-22] MEDS: LOPRESSOR PO SCH ×5 (06:33→23:00)
[2016-09-22] MEDS: PROAMATINE PO SCH ×3 (06:33→14:07)
[2016-09-22] MEDS: REGLAN IV SCH ×2 (06:34→09:37)
[2016-09-22 06:52] LABS: Hematocrit 28.8 % (30.3-42.9); Hemoglobin 9.5 gm/dl (10.1-14.3); Mean Corpuscular HGB Conc 33 % (30-34); Mean Corpuscular Hemoglobin 30 pg (28-32); Mean Corpuscular Volume 90 fl (79-97); Platelet Count 147 K/mm3 (140-440); Red Blood Count 3.18 M/mm3 (3.65-5.03); Red Cell Distribution Width 16.2 % (13.2-15.2); White Blood Count 13.5 K/mm3 (4.5-11.0)
--- NOTE | 2016-09-22 07:19 | XRay Report ---
AP CHEST: HISTORY: Followup respiratory failure Lines and support devices remain in good position. Mild improvement in pulmonary venous congestion is demonstrated since 09/19/16. Heart size is borderline. The lungs are generally clear. No evidence for pneumonia, large pleural effusion or pneumothorax. IMPRESSION: Mild improvement in congestive changes.
[2016-09-22 07:27] LABS: Anion Gap 15 mmol/L; BUN/Creatinine Ratio 81.66; Blood Urea Nitrogen 49 mg/dL (7-17); Calcium 7.5 mg/dL (8.4-10.2); Carbon Dioxide 23 mmol/L (22-30); Chloride 112.3 mmol/L (98-107); Glucose 102 mg/dL (65-100); Potassium 3.2 mmol/L (3.6-5.0); Sodium 147 mmol/L (137-145)
--- NOTE | 2016-09-22 09:24 | Progress Note ---
Assessment and Plan Patient is a 61-year-old morbid obese woman with a history of congestive heart failure, severe protein calorie malnutrition (bilateral religion muscle severe wasting, hypothenar muscle wasting) with BMI of 81.6, functional quadriplegia, type 2 diabetes mellitus, hypertension, multiple skin breakdown between legs and thighs who presented to the hospital via EMS with AMS. 2D echocardiogram with ejection fraction of 50-55%. During the past admission, patient was recommended for placement but refused. On presentation to ED, patient was felt to be unable to maintain her airways and intubated the ER since 08/29/16. 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, poa: supportative care, Unable to get CT head due to weight issues -Acute on chronic diastolic congestive heart failure: treated with diuresis -Acute on chronic respiratory failure, intubated > 96 hours -Septic shock off IV solucorticef and midodrine -Severe anemia s/p blood transfusion: monitor cbc closely altered -Paroxysmal atrial fibrillation -Non-ST elevated CO type 2: Conservative management -Acute on chronic kidney disease III, likely secondary to vasomotor nephropathy- POA -Transaminitis-elevated alkaline phosphatase and AST: continue to monitor -Severe protein calorie malnutrition albumin 1.2 -Morbid obesity BMI 81.6 -Mulitple PRESSURE ULCERS-POA: consulted wound care -uncontrolled dm: on ssi, s/p insulin drip -Acute anemia with drop in HCT s/p 5 units of PRBC transfused so far. Ordered 2 more units. -Dvt prophylaxis: sq lovenox per [facility] Disposition: LTAC declined, case management is working on plan DNR 09/04/16 , boyfriend, Tad agreed to blood transfusion, hgb is 6.0 will transfuse 2 units==>h/h steady, continue to monitor 09/05/16: Overnight was very eventful. New issue: Status epilepticus most likely due to anoxic brain injury, poa. She is back on 8 mcg of Levophed, which had weaned off up to the point of seizure activity Patient had status epilepticus before receiving blood transfusions. She was given multiple doses of Ativan and was still having breakthrough seizures. She was given phenobarbital and Dilantin but still having seizures. I started propofol drip which is helping. She still on IV Ativan drip also. Difficult family dynamics: Her son (she has multiple children), Srikanth and sister Leanne were at her bedside and well as her boyfriend who is not her legal , which he told me. They are upset because they didn't know patient was in the hospital. It appears the gentleman in the room is her boyfriend and not her legal He also did not notify the family the patient was here. That gentleman who is her boyfriend dropped the patient's wallet and our security called the number inside the wallet which was patient's mother's number and this is how the family found out that patient was in the hospital. I was told by RN, that patient has no , patient has 7 siblings and they are estranged from mother. No legal POA but sister Leanne is active in sister's life. Her boyfriend name is Tad Vieyra and he has consistently been at her beside, holding her hand and being supportive. 09/10/16 (resumed care): Trying to get to LTAC, still on 2 mcg of Levaphed but not sedated==>?Significant anoxic brain injury most likely poa, Ethic committee consulted because some family members want to withdraw. 09/11/16, Trach aspirated GNR, continue abx pending identification, off levaphed today. Trying to get to LTAC, they can trach her there. Only [facility] takes her insurance 09/12/16 Trach aspirate still pending, new issue of hypothermia, responded to [facility], tube feeding low rate due to high residuals, abd xray unremarkable. Potassium replaced. No restraints needs, no sedation needed, poor prognosis 09/15/16(resumed care): new issue seizure, gave 1mg iv ativan x 1. Awaiting to go to [facility], they want to trach and peg when she gets there. 09/16-11/26: cpm, no new seizures. 09/18/16: [facility] did not accept patient, so trach and peg here. Patient has been intubated since 08/29/16. 09/19/16 no new issue, trying to wean 09/20/16: d/w boyfriend at bedside. He believes she is having purposefully spontaneous movements, like blinking. Heart rate went up to 150s but spontaneously went down without any medications given. 09/21/16: Overnight she became hypotensive, Levophed drip restarted at 12mcg, hgb found to be 4.6, blood transfusions ordered, hyperglycemic worse, so Levemir increased and then placed to insulin drip, She has apneic breathing on vent, POOR sign, anticipate w/in 48 hours because she will tire out. 09/22/16: no new issue, off levophed and insulin drip this am. Cont current supportive care Subjective Date of service: 09/22/16 Principal diagnosis: Acute Hypoxemic Hypercapnic Resp Failure; Severe Sepsis Interval history: Patient seen and examined. Follow up on respiratory failure. Patient still intubated. off levophed and insulin drip today am Objective - Exam Narrative Exam: GEN: Critically ill, morbid obese BMI 81.6, intubated, apneic breathing HEENT: Pupils are pinpoint and reactive, ET tube in place NECK: SUPPLE, NO THYROMEGALY, NO JVD, NO LAD CVS: regular irregular NORMAL S1S2 LUNGS/CHEST: TA B, NORMAL CHEST EXPANSION B, GOOD AIR ENTRY B ABD: SOFT, NONDISTENDED GBS, NO REBOUND OR GUARDING NEURO: CN 2-12 GROSSLY INTACT, doesn't follow commands PSY: Comatose - Constitutional Vitals: Vital Signs - 12hr 09/21/16 09/21/16 09/21/16 21:30 21:40 21:50 Temperature Pulse Rate 89 87 71 Pulse Rate [ Anterior Bilateral Throughout] Respiratory 25 H 27 H 27 H Rate Respiratory Rate [Anterior Bilateral Throughout] Blood Pressure 124/64 119/32 113/35 O2 Sat by Pulse 100 98 100 Oximetry 09/21/16 09/21/16 09/21/16 22:00 22:10 22:20 Temperature Pulse Rate 87 85 102 H Pulse Rate [ Anterior Bilateral Throughout] Respiratory 25 H 26 H 27 H Rate Respiratory Rate [Anterior Bilateral Throughout] Blood Pressure 113/35 95/68 118/55 O2 Sat by Pulse 100 100 100 Oximetry 09/21/16 09/21/16 09/21/16 22:30 22:40 22:50 Temperature Pulse Rate 94 H 97 H 78 Pulse Rate [ Anterior Bilateral Throughout] Respiratory 26 H 26 H 25 H Rate Respiratory Rate [Anterior Bilateral Throughout] Blood Pressure 134/92 134/92 112/31 O2 Sat by Pulse 100 100 100 Oximetry 09/21/16 09/21/16 09/21/16 23:00 23:06 23:10 Temperature Pulse Rate 95 H 90 75 Pulse Rate [ Anterior Bilateral Throughout] Respiratory 26 H 29 H Rate Respiratory Rate [Anterior Bilateral Throughout] Blood Pressure 112/31 108/39 O2 Sat by Pulse 100 99 100 Oximetry 09/21/16 09/21/16 09/21/16 23:20 23:30 23:40 Temperature Pulse Rate 87 90 72 Pulse Rate [ Anterior Bilateral Throughout] Respiratory 27 H 27 H 26 H Rate Respiratory Rate [Anterior Bilateral Throughout] Blood Pressure 103/43 103/43 97/39 O2 Sat by Pulse 100 100 100 Oximetry 09/21/16 09/22/16 09/22/16 23:50 00:00 00:10 Temperature 96.6 F L Pulse Rate 81 90 84 Pulse Rate [ Anterior Bilateral Throughout] Respiratory 25 H 24 26 H Rate Respiratory Rate [Anterior Bilateral Throughout] Blood Pressure 112/60 110/48 110/48 O2 Sat by Pulse 100 100 100 Oximetry 09/22/16 09/22/16 09/22/16 00:20 00:30 00:40 Temperature Pulse Rate 86 100 H 79 Pulse Rate [ Anterior Bilateral Throughout] Respiratory 28 H 28 H 28 H Rate Respiratory Rate [Anterior Bilateral Throughout] Blood Pressure 105/52 102/46 102/46 O2 Sat by Pulse 100 100 100 Oximetry 09/22/16 09/22/16 09/22/16 00:50 01:00 01:10 Temperature Pulse Rate 71 74 77 Pulse Rate [ Anterior Bilateral Throughout] Respiratory 28 H 26 H 18 Rate Respiratory Rate [Anterior Bilateral Throughout] Blood Pressure 119/44 104/56 104/56 O2 Sat by Pulse 100 100 100 Oximetry 09/22/16 09/22/16 09/22/16 01:20 01:30 01:40 Temperature Pulse Rate 85 97 H 96 H Pulse Rate [ Anterior Bilateral Throughout] Respiratory 27 H 25 H 26 H Rate Respiratory Rate [Anterior Bilateral Throughout] Blood Pressure 111/64 111/64 111/64 O2 Sat by Pulse 100 100 100 Oximetry 09/22/16 09/22/16 09/22/16 01:50 02:00 02:10 Temperature Pulse Rate 63 100 H 107 H Pulse Rate [ Anterior Bilateral Throughout] Respiratory 27 H 37 H 21 Rate Respiratory Rate [Anterior Bilateral Throughout] Blood Pressure 117/22 117/22 137/103 O2 Sat by Pulse 100 81 L 100 Oximetry 09/22/16 09/22/16 09/22/16 02:20 02:30 02:40 Temperature Pulse Rate 101 H 75 90 Pulse Rate [ 73 Anterior Bilateral Throughout] Respiratory 20 24 25 H Rate Respiratory 26 H Rate [Anterior Bilateral Throughout] Blood Pressure 149/43 135/35 135/35 O2 Sat by Pulse 100 100 100 Oximetry 09/22/16 09/22/16 09/22/16 02:50 03:00 03:10 Temperature Pulse Rate 74 77 85 Pulse Rate [ Anterior Bilateral Throughout] Respiratory 25 H 26 H 27 H Rate Respiratory Rate [Anterior Bilateral Throughout] Blood Pressure 146/62 146/62 133/68 O2 Sat by Pulse 100 100 Oximetry 09/22/16 09/22/16 09/22/16 03:20 03:28 03:30 Temperature Pulse Rate 81 83 73 Pulse Rate [ Anterior Bilateral Throughout] Respiratory 26 H 25 H Rate Respiratory Rate [Anterior Bilateral Throughout] Blood Pressure 227/185 135/35 112/39 O2 Sat by Pulse 100 100 100 Oximetry 09/22/16 09/22/16 09/22/16 03:40 03:50 04:00 Temperature 96.5 F L Pulse Rate 88 77 77 Pulse Rate [ Anterior Bilateral Throughout] Respiratory 24 25 H 26 H Rate Respiratory Rate [Anterior Bilateral Throughout] Blood Pressure 112/39 121/46 111/45 O2 Sat by Pulse 92 100 100 Oximetry 09/22/16 09/22/16 09/22/16 04:10 04:20 04:30 Temperature Pulse Rate 79 84 77 Pulse Rate [ Anterior Bilateral Throughout] Respiratory 26 H 22 22 Rate Respiratory Rate [Anterior Bilateral Throughout] Blood Pressure 111/45 118/45 118/45 O2 Sat by Pulse 100 100 100 Oximetry 09/22/16 09/22/16 09/22/16 04:40 04:50 05:00 Temperature Pulse Rate 91 H 81 83 Pulse Rate [ Anterior Bilateral Throughout] Respiratory 23 25 H 24 Rate Respiratory Rate [Anterior Bilateral Throughout] Blood Pressure 126/49 124/83 116/55 O2 Sat by Pulse 100 100 100 Oximetry 09/22/16 09/22/16 09/22/16 05:10 05:20 05:30 Temperature Pulse Rate 79 114 H 80 Pulse Rate [ Anterior Bilateral Throughout] Respiratory 26 H 24 18 Rate Respiratory Rate [Anterior Bilateral Throughout] Blood Pressure 116/55 117/72 105/58 O2 Sat by Pulse 100 100 93 Oximetry 09/22/16 09/22/16 09/22/16 05:40 05:50 06:00 Temperature Pulse Rate 92 H 79 71 Pulse Rate [ Anterior Bilateral Throughout] Respiratory 25 H 25 H 18 Rate Respiratory Rate [Anterior Bilateral Throughout] Blood Pressure 105/58 132/57 132/57 O2 Sat by Pulse 100 100 100 Oximetry 09/22/16 09/22/16 09/22/16 06:10 06:20 06:30 Temperature Pulse Rate 78 74 81 Pulse Rate [ Anterior Bilateral Throughout] Respiratory 25 H 23 27 H Rate Respiratory Rate [Anterior Bilateral Throughout] Blood Pressure 140/37 136/46 114/38 O2 Sat by Pulse 100 100 100 Oximetry 09/22/16 09/22/16 09/22/16 06:33 06:40 06:50 Temperature Pulse Rate 109 H 70 90 Pulse Rate [ Anterior Bilateral Throughout] Respiratory 28 H 26 H Rate Respiratory Rate [Anterior Bilateral Throughout] Blood Pressure 96/68 114/38 137/64 O2 Sat by Pulse 100 100 Oximetry 09/22/16 09/22/16 09/22/16 07:00 07:10 07:20 Temperature Pulse Rate 114 H 94 H 124 H Pulse Rate [ Anterior Bilateral Throughout] Respiratory 12 17 25 H Rate Respiratory Rate [Anterior Bilateral Throughout] Blood Pressure 137/64 137/64 139/53 O2 Sat by Pulse 100 100 100 Oximetry 09/22/16 09/22/16 09/22/16 07:30 07:36 07:40 Temperature Pulse Rate 71 108 H 76 Pulse Rate [ Anterior Bilateral Throughout] Respiratory 22 21 Rate Respiratory Rate [Anterior Bilateral Throughout] Blood Pressure 139/53 136/64 136/64 O2 Sat by Pulse 100 100 84 Oximetry 09/22/16 09/22/16 09/22/16 07:48 07:50 08:00 Temperature 97.9 F Pulse Rate 117 H 62 Pulse Rate [ 101 H Anterior Bilateral Throughout] Respiratory 23 24 Rate Respiratory 28 H Rate [Anterior Bilateral Throughout] Blood Pressure 130/58 144/57 O2 Sat by Pulse 100 97 Oximetry 09/22/16 09/22/16 09/22/16 08:10 08:20 08:29 Temperature Pulse Rate 71 73 Pulse Rate [ 84 Anterior Bilateral Throughout] Respiratory 27 H 24 Rate Respiratory 38 H Rate [Anterior Bilateral Throughout] Blood Pressure 144/57 144/57 O2 Sat by Pulse 63 L 94 Oximetry 09/22/16 09/22/16 09/22/16 08:30 08:40 08:50 Temperature Pulse Rate 74 84 77 Pulse Rate [ Anterior Bilateral Throughout] Respiratory 26 H 26 H 23 Rate Respiratory Rate [Anterior Bilateral Throughout] Blood Pressure 139/61 119/42 112/50 O2 Sat by Pulse 100 96 87 Oximetry 09/22/16 09:00 Temperature Pulse Rate 80 Pulse Rate [ Anterior Bilateral Throughout] Respiratory 24 Rate Respiratory Rate [Anterior Bilateral Throughout] Blood Pressure 93/54 O2 Sat by Pulse 100 Oximetry - Labs CBC & Chem 7: 09/23/16 04:45 09/23/16 04:45 Labs: Abnormal lab results 09/08/16 09/20/16 09/21/16 Range/Units 11:00 11:18 08:20 WBC (4.5-11.0) K/mm3 RBC (3.65-5.03) M/mm3 Hgb (10.1-14.3) gm/dl Hct (30.3-42.9) % RDW (13.2-15.2) % POC ABG pH (7.35-7.45) POC ABG pCO2 (35-45) POC ABG pO2 (80-105) Sodium (137-145) mmol/L Potassium (3.6-5.0) mmol/L Chloride (98-107) mmol/L BUN (7-17) mg/dL Creatinine (0.7-1.2) mg/dL Glucose (65-100) mg/dL POC Glucose 342 H (70-105) Calcium (8.4-10.2) mg/dL Crossmatch See Detail See Detail 09/21/16 09/21/16 09/21/16 Range/Units 09:17 12:09 15:21 WBC (4.5-11.0) K/mm3 RBC (3.65-5.03) M/mm3 Hgb (10.1-14.3) gm/dl Hct (30.3-42.9) % RDW (13.2-15.2) % POC ABG pH 7.464 H (7.35-7.45) POC ABG pCO2 29.3 L (35-45) POC ABG pO2 198 H (80-105) Sodium (137-145) mmol/L Potassium (3.6-5.0) mmol/L Chloride (98-107) mmol/L BUN (7-17) mg/dL Creatinine (0.7-1.2) mg/dL Glucose (65-100) mg/dL POC Glucose 248 H 403 H (70-105) Calcium (8.4-10.2) mg/dL Crossmatch 09/21/16 09/21/16 09/21/16 Range/Units 17:36 18:49 23:29 WBC (4.5-11.0) K/mm3 RBC (3.65-5.03) M/mm3 Hgb (10.1-14.3) gm/dl Hct (30.3-42.9) % RDW (13.2-15.2) % POC ABG pH (7.35-7.45) POC ABG pCO2 (35-45) POC ABG pO2 (80-105) Sodium (137-145) mmol/L Potassium (3.6-5.0) mmol/L Chloride (98-107) mmol/L BUN (7-17) mg/dL Creatinine (0.7-1.2) mg/dL Glucose (65-100) mg/dL POC Glucose 437 H 482 H 311 H (70-105) Calcium (8.4-10.2) mg/dL Crossmatch 09/22/16 09/22/16 09/22/16 Range/Units 00:00 01:29 02:29 WBC 14.8 H (4.5-11.0) K/mm3 RBC 2.94 L (3.65-5.03) M/mm3 Hgb 9.1 L D (10.1-14.3) gm/dl Hct 27.5 L D (30.3-42.9) % RDW 16.7 H (13.2-15.2) % POC ABG pH (7.35-7.45) POC ABG pCO2 (35-45) POC ABG pO2 (80-105) Sodium (137-145) mmol/L Potassium (3.6-5.0) mmol/L Chloride (98-107) mmol/L BUN (7-17) mg/dL Creatinine (0.7-1.2) mg/dL Glucose (65-100) mg/dL POC Glucose 288 H 261 H (70-105) Calcium (8.4-10.2) mg/dL Crossmatch 09/22/16 09/22/16 09/22/16 Range/Units 03:12 03:26 05:35 WBC (4.5-11.0) K/mm3 RBC (3.65-5.03) M/mm3 Hgb (10.1-14.3) gm/dl Hct (30.3-42.9) % RDW (13.2-15.2) % POC ABG pH 7.460 H (7.35-7.45) POC ABG pCO2 29.9 L (35-45) POC ABG pO2 112 H (80-105) Sodium (137-145) mmol/L Potassium (3.6-5.0) mmol/L Chloride (98-107) mmol/L BUN (7-17) mg/dL Creatinine (0.7-1.2) mg/dL Glucose (65-100) mg/dL POC Glucose 239 H 181 H (70-105) Calcium (8.4-10.2) mg/dL Crossmatch 09/22/16 09/22/16 Range/Units 06:40 06:40 WBC 13.5 H (4.5-11.0) K/mm3 RBC 3.18 L (3.65-5.03) M/mm3 Hgb 9.5 L (10.1-14.3) gm/dl Hct 28.8 L (30.3-42.9) % RDW 16.2 H (13.2-15.2) % POC ABG pH (7.35-7.45) POC ABG pCO2 (35-45) POC ABG pO2 (80-105) Sodium 147 H (137-145) mmol/L Potassium 3.2 L D (3.6-5.0) mmol/L Chloride 112.3 H (98-107) mmol/L BUN 49 H (7-17) mg/dL Creatinine 0.6 L (0.7-1.2) mg/dL Glucose 102 H (65-100) mg/dL POC Glucose (70-105) Calcium 7.5 L (8.4-10.2) mg/dL Crossmatch
[2016-09-22] MEDS: LASIX IV SCH (11:00)
[2016-09-22] MEDS ORDERED: KCL 20MEQ/100ML 20 MEQ/100 ML BAG IV ONE (11:30)
--- NOTE | 2016-09-22 11:40 | Progress Note ---
Assessment and Plan (1) Respiratory failure Current Visit: Yes Status: Acute Qualifiers: Chronicity: C Respiratory failure complication: R Plan to address problem: - continue to hold PSV trials while unstable - VAP bundle addressed - continue to Wean FIO2 for O2 sats>92% - continue VTE prophylaxis (SCD's re: thrombocytopenia) - continue Stress ulcer prophylaxis (Pantoprazole) - continuing sedation vacations while watching for any obvious seizure activity - continue Lung protective strategies - continue gentle diuresis now with better BP's and stopped IVF (CXR shows improving CHF pattern) - seen by surgery and consent to be obtained today for trach +/- PEG once clinically and technically feasible - following clinically otherwise (2) Shock Current Visit: Yes Status: Acute Plan to address problem: - Treated as septic shock secondary to HCAP earlier - continue strict glycemic control - completed AB's course; trending WBC - ID following - tapering off stress steroids now - continue midodrine for now but tapering - likely hypovolemic shock at this point with GI bleeding - to receive 4 units PRBC's in all and will have 2 on hold (3) Acute on chronic diastolic (congestive) heart failure Current Visit: No Status: Acute Plan to address problem: - Documented EF 55% - continue gentle diuresis - Continue to monitoring renal function and electrolyte profile closely - continue to monitor urine output, electrolyte profile (4) Altered mental status Current Visit: Yes Status: Acute Qualifiers: Altered mental status type: unspecified Coma depth: C Coma timing: C Qualified Code(s): R41.82 - Altered mental status, unspecified Plan to address problem: - Neurology following - on keppra - weaned off ativan and will use prn now - TSH elevated and started on low dose levoxyl (5) Morbid obesity Current Visit: Yes Status: Acute Qualifiers: Obesity type: unspecified obesity type Qualified Code(s): E66.01 - Morbid ( severe) obesity due to excess calories - weight loss strategies once more stable - 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 (6) Anemia Current Visit: Yes Status: Acute Qualifiers: Anemia type: unspecified type Iron deficiency anemia type: I Vitamin B12 deficiency anemia type: V Folate deficiency anemia type: F Bone marrow failure anemia type: B Hemolytic anemia type: H Other causes of anemia: O Qualified Code(s): D64.9 - Anemia, unspecified Plan to address problem: - acute GI bleed - to receive 4 units PRBC's in all and will have 2 on hold - GI evaluation ordered - begin protonix drip - H&H holding - continue protonix drip X 72hrs - resume tube feeds once ok with GI team (7) Status epilepticus Current Visit: Yes Status: Acute Plan to address problem: - Continue AEDs - Neurology following - no obvious clinical seizure activity (8) 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 - This could be secondary to an intra-cranial process, however unable to obtain neuro-imaging, patient's weight exceeds allowable maximum (9) Discharge planning issues Current Visit: Yes Status: Acute Plan to address problem: - Continue current care. - need to determine appropriate power of defense attorney / legal healthcare member services representative prior to any tentative withdrawal of care - son came by and signed DNR order however no consensus on hospice care / withdrawal - LTAC refused admission ..she remains critically ill on life sustaining interventions including MVS and back on vasopressors at high risk for further deterioration including ....32' CCT Subjective Date of service: 09/22/16 Principal diagnosis: Acute Hypoxemic Hypercapnic Resp Failure; Severe Sepsis Interval history: Seen and examined at bedside; 24 hour events reviewed; nursing and respiratory care staff consulted; no adverse overnight events reported to me; no re-bleed; appears to be lower GI based on current NGT effluent; weaning off vasopressors but AMS is persistent Objective Vital Signs - 12hr 09/21/16 09/22/16 09/22/16 23:50 00:00 00:10 Temperature 96.6 F L Pulse Rate 81 90 84 Pulse Rate [ Anterior Bilateral Throughout] Respiratory 25 H 24 26 H Rate Respiratory Rate [Anterior Bilateral Throughout] Blood Pressure 112/60 110/48 110/48 O2 Sat by Pulse 100 100 100 Oximetry 09/22/16 09/22/16 09/22/16 00:20 00:30 00:40 Temperature Pulse Rate 86 100 H 79 Pulse Rate [ Anterior Bilateral Throughout] Respiratory 28 H 28 H 28 H Rate Respiratory Rate [Anterior Bilateral Throughout] Blood Pressure 105/52 102/46 102/46 O2 Sat by Pulse 100 100 100 Oximetry 09/22/16 09/22/16 09/22/16 00:50 01:00 01:10 Temperature Pulse Rate 71 74 77 Pulse Rate [ Anterior Bilateral Throughout] Respiratory 28 H 26 H 18 Rate Respiratory Rate [Anterior Bilateral Throughout] Blood Pressure 119/44 104/56 104/56 O2 Sat by Pulse 100 100 100 Oximetry 09/22/16 09/22/16 09/22/16 01:20 01:30 01:40 Temperature Pulse Rate 85 97 H 96 H Pulse Rate [ Anterior Bilateral Throughout] Respiratory 27 H 25 H 26 H Rate Respiratory Rate [Anterior Bilateral Throughout] Blood Pressure 111/64 111/64 111/64 O2 Sat by Pulse 100 100 100 Oximetry 09/22/16 09/22/16 09/22/16 01:50 02:00 02:10 Temperature Pulse Rate 63 100 H 107 H Pulse Rate [ Anterior Bilateral Throughout] Respiratory 27 H 37 H 21 Rate Respiratory Rate [Anterior Bilateral Throughout] Blood Pressure 117/22 117/22 137/103 O2 Sat by Pulse 100 81 L 100 Oximetry 09/22/16 09/22/16 09/22/16 02:20 02:30 02:40 Temperature Pulse Rate 101 H 75 90 Pulse Rate [ 73 Anterior Bilateral Throughout] Respiratory 20 24 25 H Rate Respiratory 26 H Rate [Anterior Bilateral Throughout] Blood Pressure 149/43 135/35 135/35 O2 Sat by Pulse 100 100 100 Oximetry 09/22/16 09/22/16 09/22/16 02:50 03:00 03:10 Temperature Pulse Rate 74 77 85 Pulse Rate [ Anterior Bilateral Throughout] Respiratory 25 H 26 H 27 H Rate Respiratory Rate [Anterior Bilateral Throughout] Blood Pressure 146/62 146/62 133/68 O2 Sat by Pulse 100 100 Oximetry 09/22/16 09/22/16 09/22/16 03:20 03:28 03:30 Temperature Pulse Rate 81 83 73 Pulse Rate [ Anterior Bilateral Throughout] Respiratory 26 H 25 H Rate Respiratory Rate [Anterior Bilateral Throughout] Blood Pressure 227/185 135/35 112/39 O2 Sat by Pulse 100 100 100 Oximetry 09/22/16 09/22/16 09/22/16 03:40 03:50 04:00 Temperature 96.5 F L Pulse Rate 88 77 77 Pulse Rate [ Anterior Bilateral Throughout] Respiratory 24 25 H 26 H Rate Respiratory Rate [Anterior Bilateral Throughout] Blood Pressure 112/39 121/46 111/45 O2 Sat by Pulse 92 100 100 Oximetry 0609/22/16 09/22/16 04:10 04:20 04:30 Temperature Pulse Rate 79 84 77 Pulse Rate [ Anterior Bilateral Throughout] Respiratory 26 H 22 22 Rate Respiratory Rate [Anterior Bilateral Throughout] Blood Pressure 111/45 118/45 118/45 O2 Sat by Pulse 100 100 100 Oximetry 09/22/16 09/22/16 09/22/16 04:40 04:50 05:00 Temperature Pulse Rate 91 H 81 83 Pulse Rate [ Anterior Bilateral Throughout] Respiratory 23 25 H 24 Rate Respiratory Rate [Anterior Bilateral Throughout] Blood Pressure 126/49 124/83 116/55 O2 Sat by Pulse 100 100 100 Oximetry 09/22/16 09/22/16 09/22/16 05:10 05:20 05:30 Temperature Pulse Rate 79 114 H 80 Pulse Rate [ Anterior Bilateral Throughout] Respiratory 26 H 24 18 Rate Respiratory Rate [Anterior Bilateral Throughout] Blood Pressure 116/55 117/72 105/58 O2 Sat by Pulse 100 100 93 Oximetry 09/22/16 09/22/16 09/22/16 05:40 05:50 06:00 Temperature Pulse Rate 92 H 79 71 Pulse Rate [ Anterior Bilateral Throughout] Respiratory 25 H 25 H 18 Rate Respiratory Rate [Anterior Bilateral Throughout] Blood Pressure 105/58 132/57 132/57 O2 Sat by Pulse 100 100 100 Oximetry 09/22/16 09/22/16 09/22/16 06:10 06:20 06:30 Temperature Pulse Rate 78 74 81 Pulse Rate [ Anterior Bilateral Throughout] Respiratory 25 H 23 27 H Rate Respiratory Rate [Anterior Bilateral Throughout] Blood Pressure 140/37 136/46 114/38 O2 Sat by Pulse 100 100 100 Oximetry 09/22/16 09/22/16 09/22/16 06:33 06:40 06:50 Temperature Pulse Rate 109 H 70 90 Pulse Rate [ Anterior Bilateral Throughout] Respiratory 28 H 26 H Rate Respiratory Rate [Anterior Bilateral Throughout] Blood Pressure 96/68 114/38 137/64 O2 Sat by Pulse 100 100 Oximetry 09/22/16 09/22/16 09/22/16 07:00 07:10 07:20 Temperature Pulse Rate 114 H 94 H 124 H Pulse Rate [ Anterior Bilateral Throughout] Respiratory 12 17 25 H Rate Respiratory Rate [Anterior Bilateral Throughout] Blood Pressure 137/64 137/64 139/53 O2 Sat by Pulse 100 100 100 Oximetry 09/22/16 09/22/1609/22/17 07:30 07:36 07:40 Temperature Pulse Rate 71 108 H 76 Pulse Rate [ Anterior Bilateral Throughout] Respiratory 22 21 Rate Respiratory Rate [Anterior Bilateral Throughout] Blood Pressure 139/53 136/64 136/64 O2 Sat by Pulse 100 100 84 Oximetry 09/22/16 09/22/16 09/22/16 07:48 07:50 08:00 Temperature 97.9 F Pulse Rate 117 H 62 Pulse Rate [ 101 H Anterior Bilateral Throughout] Respiratory 23 24 Rate Respiratory 28 H Rate [Anterior Bilateral Throughout] Blood Pressure 130/58 144/57 O2 Sat by Pulse 100 97 Oximetry 09/22/16 09/22/16 09/22/16 08:10 08:20 08:29 Temperature Pulse Rate 71 73 Pulse Rate [ 84 Anterior Bilateral Throughout] Respiratory 27 H 24 Rate Respiratory 38 H Rate [Anterior Bilateral Throughout] Blood Pressure 144/57 144/57 O2 Sat by Pulse 63 L 94 Oximetry 09/22/16 09/22/16 09/22/16 08:30 08:40 08:50 Temperature Pulse Rate 74 84 77 Pulse Rate [ Anterior Bilateral Throughout] Respiratory 26 H 26 H 23 Rate Respiratory Rate [Anterior Bilateral Throughout] Blood Pressure 139/61 119/42 112/50 O2 Sat by Pulse 100 96 87 Oximetry 09/22/16 09/22/16 09/22/16 09:00 09:10 09:20 Temperature Pulse Rate 80 101 H 77 Pulse Rate [ Anterior Bilateral Throughout] Respiratory 24 23 23 Rate Respiratory Rate [Anterior Bilateral Throughout] Blood Pressure 93/54 93/54 93/54 O2 Sat by Pulse 100 95 81 L Oximetry 09/22/16 09/22/16 09/22/16 09:30 09:40 09:50 Temperature Pulse Rate 76 74 72 Pulse Rate [ Anterior Bilateral Throughout] Respiratory 22 19 26 H Rate Respiratory Rate [Anterior Bilateral Throughout] Blood Pressure 120/45 120/45 108/40 O2 Sat by Pulse 100 96 99 Oximetry 09/22/16 10:00 Temperature Pulse Rate 98 H Pulse Rate [ Anterior Bilateral Throughout] Respiratory 25 H Rate Respiratory Rate [Anterior Bilateral Throughout] Blood Pressure 121/51 O2 Sat by Pulse 89 Oximetry Constitutional: no acute distress, other (encephalopathic) Eyes: non-icteric ENT: oropharynx moist Neck: supple, no lymphadenopathy Effort: mildly labored Ascultation: Bilateral: diminished breath sounds, rales Cardiovascular: regular rate and rhythm Gastrointestinal: hypoactive bowel sounds, soft, non-tender, non-distended Integumentary: normal Extremities: no cyanosis, pulses normal, no ischemia or petechiae, edema (1++) Neurologic: unable to assess, other (lethargic) Psychiatric: other (sedated) CBC and BMP: 09/22/16 06:40 09/22/16 06:40 ABG, PT/INR, D-dimer: ABG POC ABG pH 7.460 (7.35-7.45) H 09/22/16 03:26 POC ABG pCO2 29.9 (35-45) L 09/22/16 03:26 POC ABG pO2 112 (80-105) H 09/22/16 03:26 POC ABG HCO3 21.3 09/22/16 03:26 POC ABG Total CO2 22 09/22/16 03:26 POC ABG O2 Sat 99 09/22/16 03:26 PT/INR, D-dimer PT 13.8 Sec. (12.2-14.9) 09/10/16 05:10 INR 1.07 (0.87-1.13) 09/10/16 05:10 Abnormal lab findings: Abnormal Labs 08/29/16 08/30/16 08/30/16 21:59 00:16 05:39 WBC RBC Hgb Hct MCV MCH MCHC RDW Plt Count Seg Neutrophils % Seg Neuts % (Manual) Nucleated RBC % Seg Neutrophils # Seg Neutrophils # Man PT INR POC ABG pH POC ABG pCO2 POC ABG pO2 Sodium Potassium Chloride Carbon Dioxide BUN Creatinine Glucose POC Glucose 106 H 128 H Lactic Acid Calcium Magnesium Total Bilirubin AST ALT Alkaline Phosphatase Ammonia Troponin T C-Reactive Protein Total Protein Albumin Prealbumin 0.120 L TSH Crossmatch 08/30/16 08/30/16 08/30/16 10:30 10:30 11:12 WBC 11.1 H RBC 3.16 L Hgb 8.7 L Hct 29.9 L MCV MCH MCHC 29 L RDW 25.0 H Plt Count Seg Neutrophils % 78.6 H Seg Neuts % (Manual) Nucleated RBC % Seg Neutrophils # 8.7 H Seg Neutrophils # Man PT INR POC ABG pH POC ABG pCO2 POC ABG pO2 Sodium 135 L Potassium Chloride Carbon Dioxide 20 L BUN Creatinine 1.5 H Glucose 148 H POC Glucose 142 H Lactic Acid Calcium 7.2 L Magnesium Total Bilirubin 1.30 H AST 143 H ALT Alkaline Phosphatase 392 H Ammonia Troponin T C-Reactive Protein Total Protein 6.1 L Albumin 1.2 L Prealbumin TSH Crossmatch 08/30/16 08/30/16 08/30/16 17:41 18:03 18:18 WBC RBC Hgb Hct MCV MCH MCHC RDW Plt Count Seg Neutrophils % Seg Neuts % (Manual) Nucleated RBC % Seg Neutrophils # Seg Neutrophils # Man PT INR POC ABG pH 7.316 L POC ABG pCO2 POC ABG pO2 44 L 59 L Sodium Potassium Chloride Carbon Dioxide BUN Creatinine Glucose POC Glucose 150 H Lactic Acid Calcium Magnesium Total Bilirubin AST ALT Alkaline Phosphatase Ammonia Troponin T C-Reactive Protein Total Protein Albumin Prealbumin TSH Crossmatch 08/30/16 08/30/16 08/31/16 22:20 22:20 00:11 WBC RBC Hgb Hct MCV MCH MCHC RDW Plt Count Seg Neutrophils % Seg Neuts % (Manual) Nucleated RBC % Seg Neutrophils # Seg Neutrophils # Man PT INR POC ABG pH POC ABG pCO2 POC ABG pO2 Sodium Potassium Chloride Carbon Dioxide BUN Creatinine Glucose POC Glucose 133 H Lactic Acid 2.30 H* Calcium Magnesium Total Bilirubin AST ALT Alkaline Phosphatase Ammonia Troponin T C-Reactive Protein 10.20 H Total Protein Albumin Prealbumin TSH Crossmatch 08/31/16 08/31/16 08/31/16 04:20 04:20 04:20 WBC 18.3 H RBC 3.19 L Hgb 8.8 L Hct 30.0 L MCV MCH 27 L MCHC 29 L RDW 23.9 H Plt Count Seg Neutrophils % Seg Neuts % (Manual) Nucleated RBC % Seg Neutrophils # Seg Neutrophils # Man PT 16.8 H INR 1.37 H POC ABG pH POC ABG pCO2 POC ABG pO2 Sodium 136 L Potassium Chloride Carbon Dioxide 19 L BUN Creatinine 1.5 H Glucose 125 H POC Glucose Lactic Acid Calcium 7.0 L Magnesium Total Bilirubin 1.50 H AST 131 H ALT Alkaline Phosphatase 431 H Ammonia Troponin T C-Reactive Protein Total Protein 6.2 L Albumin 1.2 L Prealbumin TSH Crossmatch 08/31/16 08/31/16 08/31/16 04:20 05:22 05:24 WBC RBC Hgb Hct MCV MCH MCHC RDW Plt Count Seg Neutrophils % Seg Neuts % (Manual) Nucleated RBC % Seg Neutrophils # Seg Neutrophils # Man PT INR POC ABG pH POC ABG pCO2 POC ABG pO2 142 H Sodium Potassium Chloride Carbon Dioxide BUN Creatinine Glucose POC Glucose 123 H Lactic Acid Calcium Magnesium Total Bilirubin AST ALT Alkaline Phosphatase Ammonia 70.0 H Troponin T C-Reactive Protein Total Protein Albumin Prealbumin TSH Crossmatch 08/31/16 08/31/16 08/31/16 12:10 15:45 17:38 WBC RBC Hgb Hct MCV MCH MCHC RDW Plt Count Seg Neutrophils % Seg Neuts % (Manual) Nucleated RBC % Seg Neutrophils # Seg Neutrophils # Man PT INR POC ABG pH POC ABG pCO2 POC ABG pO2 Sodium 136 L Potassium Chloride Carbon Dioxide 21 L BUN Creatinine 1.5 H Glucose 160 H POC Glucose 147 H 151 H Lactic Acid Calcium 6.9 L Magnesium Total Bilirubin AST ALT Alkaline Phosphatase Ammonia Troponin T 0.109 H* D C-Reactive Protein Total Protein Albumin Prealbumin TSH Crossmatch 09/01/16 09/01/16 09/01/16 00:09 04:00 04:00 WBC 14.8 H RBC 2.89 L Hgb 7.8 L Hct 27.2 L MCV MCH 27 L MCHC 29 L RDW 24.4 H Plt Count Seg Neutrophils % Seg Neuts % (Manual) Nucleated RBC % Seg Neutrophils # Seg Neutrophils # Man PT 18.2 H INR 1.51 H POC ABG pH POC ABG pCO2 POC ABG pO2 Sodium Potassium Chloride Carbon Dioxide BUN Creatinine Glucose POC Glucose 192 H Lactic Acid Calcium Magnesium Total Bilirubin AST ALT Alkaline Phosphatase Ammonia Troponin T C-Reactive Protein Total Protein Albumin Prealbumin TSH Crossmatch 09/01/16 09/01/16 09/01/16 04:00 05:28 11:28 WBC RBC Hgb Hct MCV MCH MCHC RDW Plt Count Seg Neutrophils % Seg Neuts % (Manual) Nucleated RBC % Seg Neutrophils # Seg Neutrophils # Man PT INR POC ABG pH POC ABG pCO2 POC ABG pO2 Sodium Potassium Chloride Carbon Dioxide 20 L BUN Creatinine 1.6 H Glucose 183 H POC Glucose 189 H 207 H Lactic Acid Calcium 6.9 L Magnesium Total Bilirubin 1.30 H AST 138 H ALT Alkaline Phosphatase 520 H Ammonia Troponin T C-Reactive Protein Total Protein 6.1 L Albumin 1.2 L Prealbumin TSH Crossmatch 09/01/16 09/01/16 09/02/16 16:56 23:49 05:00 WBC RBC Hgb Hct MCV MCH MCHC RDW Plt Count Seg Neutrophils % Seg Neuts % (Manual) Nucleated RBC % Seg Neutrophils # Seg Neutrophils # Man PT 18.0 H INR 1.49 H POC ABG pH POC ABG pCO2 POC ABG pO2 Sodium Potassium Chloride Carbon Dioxide BUN Creatinine Glucose POC Glucose 250 H 307 H Lactic Acid Calcium Magnesium Total Bilirubin AST ALT Alkaline Phosphatase Ammonia Troponin T C-Reactive Protein Total Protein Albumin Prealbumin TSH Crossmatch 09/02/16 09/02/16 09/02/16 05:00 05:00 05:45 WBC 12.3 H RBC 2.57 L Hgb 7.1 L Hct 23.4 L MCV MCH MCHC RDW 23.9 H Plt Count Seg Neutrophils % Seg Neuts % (Manual) 72.0 H Nucleated RBC % 25.0 H Seg Neutrophils # Seg Neutrophils # Man 8.9 H PT INR POC ABG pH POC ABG pCO2 POC ABG pO2 Sodium Potassium Chloride Carbon Dioxide BUN Creatinine 1.4 H Glucose 299 H POC Glucose 327 H Lactic Acid Calcium 7.0 L Magnesium Total Bilirubin AST ALT Alkaline Phosphatase Ammonia Troponin T C-Reactive Protein Total Protein Albumin Prealbumin TSH Crossmatch 09/02/16 09/02/16 09/02/16 12:22 17:22 23:24 WBC RBC Hgb Hct MCV MCH MCHC RDW Plt Count Seg Neutrophils % Seg Neuts % (Manual) Nucleated RBC % Seg Neutrophils # Seg Neutrophils # Cristian PT INR POC ABG pH POC ABG pCO2 POC ABG pO2 Sodium Potassium Chloride Carbon Dioxide BUN Creatinine Glucose POC Glucose 310 H 358 H 286 H Lactic Acid Calcium Magnesium Total Bilirubin AST ALT Alkaline Phosphatase Ammonia Troponin T C-Reactive Protein Total Protein Albumin Prealbumin TSH Crossmatch 09/03/16 09/03/16 09/03/16 04:10 04:10 04:10 WBC 11.8 H RBC 2.29 L Hgb 6.1 L Hct 21.0 L MCV MCH 27 L MCHC 29 L RDW 24.1 H Plt Count Seg Neutrophils % Seg Neuts % (Manual) Nucleated RBC % Seg Neutrophils # Seg Neutrophils # Man PT 17.6 H INR 1.45 H POC ABG pH POC ABG pCO2 POC ABG pO2 Sodium Potassium Chloride Carbon Dioxide BUN Creatinine 1.4 H Glucose 301 H POC Glucose Lactic Acid Calcium 7.0 L Magnesium Total Bilirubin AST ALT Alkaline Phosphatase Ammonia Troponin T C-Reactive Protein Total Protein Albumin Prealbumin TSH Crossmatch 09/03/16 09/03/16 09/03/16 05:59 11:36 17:42 WBC RBC Hgb Hct MCV MCH MCHC RDW Plt Count Seg Neutrophils % Seg Neuts % (Manual) Nucleated RBC % Seg Neutrophils # Seg Neutrophils # Man PT INR POC ABG pH POC ABG pCO2 POC ABG pO2 Sodium Potassium Chloride Carbon Dioxide BUN Creatinine Glucose POC Glucose 351 H 285 H 259 H Lactic Acid Calcium Magnesium Total Bilirubin AST ALT Alkaline Phosphatase Ammonia Troponin T C-Reactive Protein Total Protein Albumin Prealbumin TSH Crossmatch 09/03/16 09/04/16 09/04/16 23:00 04:27 05:36 WBC RBC Hgb Hct MCV MCH MCHC RDW Plt Count Seg Neutrophils % Seg Neuts % (Manual) Nucleated RBC % Seg Neutrophils # Seg Neutrophils # Man PT INR POC ABG pH 7.544 H POC ABG pCO2 30.8 L POC ABG pO2 78 L Sodium Potassium Chloride Carbon Dioxide BUN Creatinine Glucose POC Glucose 192 H 228 H Lactic Acid Calcium Magnesium Total Bilirubin AST ALT Alkaline Phosphatase Ammonia Troponin T C-Reactive Protein Total Protein Albumin Prealbumin TSH Crossmatch 09/04/16 09/04/16 09/04/16 06:37 06:37 06:39 WBC 21.0 H RBC 2.22 L Hgb 6.0 L Hct 20.1 L MCV MCH 27 L MCHC RDW 24.3 H Plt Count Seg Neutrophils % Seg Neuts % (Manual) Nucleated RBC % Seg Neutrophils # Seg Neutrophils # Man PT 16.8 H INR 1.37 H POC ABG pH POC ABG pCO2 POC ABG pO2 Sodium Potassium Chloride Carbon Dioxide BUN Creatinine 1.4 H Glucose 201 H POC Glucose Lactic Acid Calcium 7.1 L Magnesium Total Bilirubin AST ALT Alkaline Phosphatase Ammonia Troponin T C-Reactive Protein Total Protein Albumin Prealbumin TSH Crossmatch 09/04/16 09/04/16 09/04/16 12:14 15:47 17:41 WBC RBC Hgb Hct MCV MCH MCHC RDW Plt Count Seg Neutrophils % Seg Neuts % (Manual) Nucleated RBC % Seg Neutrophils # Seg Neutrophils # Man PT INR POC ABG pH POC ABG pCO2 POC ABG pO2 Sodium Potassium Chloride Carbon Dioxide BUN Creatinine Glucose POC Glucose 176 H 218 H Lactic Acid Calcium Magnesium Total Bilirubin AST ALT Alkaline Phosphatase Ammonia Troponin T C-Reactive Protein Total Protein Albumin Prealbumin TSH Crossmatch See Detail 09/04/16 09/04/16 09/05/16 21:59 23:48 04:30 WBC RBC Hgb Hct MCV MCH MCHC RDW Plt Count Seg Neutrophils % Seg Neuts % (Manual) Nucleated RBC % Seg Neutrophils # Seg Neutrophils # Cristian PT 17.2 H INR 1.41 H POC ABG pH POC ABG pCO2 POC ABG pO2 Sodium Potassium Chloride Carbon Dioxide BUN Creatinine Glucose POC Glucose 170 H 121 H Lactic Acid Calcium Magnesium Total Bilirubin AST ALT Alkaline Phosphatase Ammonia Troponin T C-Reactive Protein Total Protein Albumin Prealbumin TSH Crossmatch 09/05/16 09/05/16 09/05/16 04:30 04:30 05:09 WBC 31.9 H RBC 3.11 L Hgb 8.5 L Hct 28.3 L D MCV MCH 27 L MCHC RDW 21.0 H Plt Count Seg Neutrophils % Seg Neuts % (Manual) Nucleated RBC % Seg Neutrophils # Seg Neutrophils # Cristian PT INR POC ABG pH 7.226 L POC ABG pCO2 61.6 H POC ABG pO2 68 L Sodium 134 L Potassium 5.5 H Chloride 96.6 L Carbon Dioxide BUN 23 H Creatinine 1.6 H Glucose 116 H POC Glucose Lactic Acid Calcium 7.1 L Magnesium Total Bilirubin AST ALT Alkaline Phosphatase Ammonia Troponin T C-Reactive Protein Total Protein Albumin Prealbumin TSH Crossmatch 09/05/16 09/05/16 09/05/16 05:33 12:08 17:32 WBC RBC Hgb Hct MCV MCH MCHC RDW Plt Count Seg Neutrophils % Seg Neuts % (Manual) Nucleated RBC % Seg Neutrophils # Seg Neutrophils # Cristian PT INR POC ABG pH POC ABG pCO2 POC ABG pO2 Sodium Potassium Chloride Carbon Dioxide BUN Creatinine Glucose POC Glucose 114 H 147 H 174 H Lactic Acid Calcium Magnesium Total Bilirubin AST ALT Alkaline Phosphatase Ammonia Troponin T C-Reactive Protein Total Protein Albumin Prealbumin TSH Crossmatch 09/06/16 09/06/16 09/06/16 03:30 03:30 03:30 WBC 25.4 H RBC 2.57 L Hgb 7.2 L Hct 22.8 L MCV MCH MCHC RDW 20.9 H Plt Count 138 L Seg Neutrophils % Seg Neuts % (Manual) Nucleated RBC % Seg Neutrophils # Seg Neutrophils # Cristian PT 16.4 H INR 1.33 H POC ABG pH POC ABG pCO2 POC ABG pO2 Sodium Potassium Chloride Carbon Dioxide BUN 36 H Creatinine 1.9 H Glucose POC Glucose Lactic Acid Calcium 7.2 L Magnesium Total Bilirubin AST ALT Alkaline Phosphatase Ammonia Troponin T C-Reactive Protein Total Protein Albumin Prealbumin TSH Crossmatch 09/06/16 09/06/16 09/06/16 11:07 12:03 14:44 WBC RBC Hgb Hct MCV MCH MCHC RDW Plt Count Seg Neutrophils % Seg Neuts % (Manual) Nucleated RBC % Seg Neutrophils # Seg Neutrophils # Man PT INR POC ABG pH POC ABG pCO2 POC ABG pO2 Sodium Potassium Chloride Carbon Dioxide BUN Creatinine Glucose POC Glucose 61 L 55 L Lactic Acid Calcium Magnesium Total Bilirubin AST ALT Alkaline Phosphatase Ammonia Troponin T 0.080 H C-Reactive Protein Total Protein Albumin Prealbumin TSH Crossmatch 09/06/16 09/06/16 09/07/16 21:05 23:53 03:36 WBC RBC Hgb Hct MCV MCH MCHC RDW Plt Count Seg Neutrophils % Seg Neuts % (Manual) Nucleated RBC % Seg Neutrophils # Seg Neutrophils # Man PT INR POC ABG pH POC ABG pCO2 POC ABG pO2 Sodium Potassium Chloride Carbon Dioxide BUN Creatinine Glucose POC Glucose 140 H 178 H 243 H Lactic Acid Calcium Magnesium Total Bilirubin AST ALT Alkaline Phosphatase Ammonia Troponin T C-Reactive Protein Total Protein Albumin Prealbumin TSH Crossmatch 09/07/16 09/07/16 09/07/16 03:42 03:42 05:04 WBC 17.3 H RBC 2.69 L Hgb 7.6 L Hct 23.8 L MCV MCH MCHC RDW 20.5 H Plt Count 137 L Seg Neutrophils % Seg Neuts % (Manual) Nucleated RBC % Seg Neutrophils # Seg Neutrophils # Man PT INR POC ABG pH POC ABG pCO2 POC ABG pO2 Sodium Potassium 3.3 L Chloride Carbon Dioxide BUN 38 H Creatinine 1.6 H Glucose 201 H POC Glucose 241 H Lactic Acid Calcium 7.4 L Magnesium Total Bilirubin AST ALT Alkaline Phosphatase Ammonia Troponin T C-Reactive Protein Total Protein Albumin Prealbumin TSH Crossmatch 09/07/16 09/07/16 09/07/16 11:46 17:41 23:18 WBC RBC Hgb Hct MCV MCH MCHC RDW Plt Count Seg Neutrophils % Seg Neuts % (Manual) Nucleated RBC % Seg Neutrophils # Seg Neutrophils # Man PT INR POC ABG pH POC ABG pCO2 POC ABG pO2 Sodium Potassium Chloride Carbon Dioxide BUN Creatinine Glucose POC Glucose 313 H 227 H 116 H Lactic Acid Calcium Magnesium Total Bilirubin AST ALT Alkaline Phosphatase Ammonia Troponin T C-Reactive Protein Total Protein Albumin Prealbumin TSH Crossmatch 09/08/16 09/08/16 09/08/16 04:00 04:00 05:15 WBC 18.4 H RBC 2.43 L Hgb 6.9 L Hct 21.5 L MCV MCH MCHC RDW 20.5 H Plt Count 119 L Seg Neutrophils % Seg Neuts % (Manual) Nucleated RBC % Seg Neutrophils # Seg Neutrophils # Man PT INR POC ABG pH 7.458 H POC ABG pCO2 POC ABG pO2 177 H Sodium Potassium 3.5 L Chloride Carbon Dioxide BUN 37 H Creatinine 1.3 H Glucose POC Glucose Lactic Acid Calcium 7.1 L Magnesium Total Bilirubin AST ALT Alkaline Phosphatase Ammonia Troponin T C-Reactive Protein Total Protein Albumin Prealbumin TSH Crossmatch 09/08/16 09/08/16 09/08/16 11:00 15:58 23:16 WBC RBC Hgb Hct MCV MCH MCHC RDW Plt Count Seg Neutrophils % Seg Neuts % (Manual) Nucleated RBC % Seg Neutrophils # Seg Neutrophils # Man PT INR POC ABG pH POC ABG pCO2 POC ABG pO2 113 H Sodium Potassium Chloride Carbon Dioxide BUN Creatinine Glucose POC Glucose 40 L Lactic Acid Calcium Magnesium Total Bilirubin AST ALT Alkaline Phosphatase Ammonia Troponin T C-Reactive Protein Total Protein Albumin Prealbumin TSH Crossmatch See Detail 09/09/16 09/09/16 09/09/16 05:02 12:33 18:10 WBC RBC Hgb Hct MCV MCH MCHC RDW Plt Count Seg Neutrophils % Seg Neuts % (Manual) Nucleated RBC % Seg Neutrophils # Seg Neutrophils # Man PT INR POC ABG pH 7.454 H POC ABG pCO2 POC ABG pO2 75 L Sodium Potassium Chloride Carbon Dioxide BUN Creatinine Glucose POC Glucose 59 L Lactic Acid Calcium Magnesium Total Bilirubin AST ALT Alkaline Phosphatase Ammonia Troponin T C-Reactive Protein Total Protein Albumin Prealbumin TSH 5.220 H Crossmatch 09/09/16 09/09/16 09/09/16 18:10 18:10 18:42 WBC 17.0 H RBC 2.90 L Hgb 8.5 L Hct 26.1 L MCV MCH MCHC RDW 17.9 H Plt Count 126 L Seg Neutrophils % Seg Neuts % (Manual) Nucleated RBC % Seg Neutrophils # Seg Neutrophils # Man PT INR POC ABG pH POC ABG pCO2 POC ABG pO2 Sodium Potassium Chloride Carbon Dioxide BUN 36 H Creatinine Glucose 133 H POC Glucose 148 H Lactic Acid Calcium 6.9 L Magnesium Total Bilirubin AST 253 H ALT 184 H Alkaline Phosphatase 729 H Ammonia Troponin T C-Reactive Protein Total Protein 5.1 L Albumin 1.7 L Prealbumin TSH Crossmatch 09/09/16 09/10/16 09/10/16 23:22 05:10 11:43 WBC RBC Hgb Hct MCV MCH MCHC RDW Plt Count Seg Neutrophils % Seg Neuts % (Manual) Nucleated RBC % Seg Neutrophils # Seg Neutrophils # Man PT INR POC ABG pH POC ABG pCO2 POC ABG pO2 Sodium Potassium Chloride Carbon Dioxide BUN 35 H Creatinine Glucose 240 H POC Glucose 170 H 268 H Lactic Acid Calcium 6.8 L Magnesium Total Bilirubin AST 226 H ALT 171 H Alkaline Phosphatase 710 H Ammonia Troponin T C-Reactive Protein Total Protein 5.2 L Albumin 1.7 L Prealbumin TSH Crossmatch 09/10/16 09/11/16 09/11/16 17:51 01:07 05:00 WBC RBC Hgb Hct MCV MCH MCHC RDW Plt Count Seg Neutrophils % Seg Neuts % (Manual) Nucleated RBC % Seg Neutrophils # Seg Neutrophils # Man PT INR POC ABG pH POC ABG pCO2 POC ABG pO2 Sodium Potassium 2.9 L* Chloride Carbon Dioxide BUN 35 H Creatinine Glucose 274 H POC Glucose 334 H 223 H Lactic Acid Calcium 6.9 L Magnesium Total Bilirubin AST 167 H ALT 145 H Alkaline Phosphatase 631 H Ammonia Troponin T C-Reactive Protein Total Protein 5.1 L Albumin 1.6 L Prealbumin TSH Crossmatch 09/11/16 09/11/16 09/11/16 05:01 12:16 17:12 WBC RBC Hgb Hct MCV MCH MCHC RDW Plt Count Seg Neutrophils % Seg Neuts % (Manual) Nucleated RBC % Seg Neutrophils # Seg Neutrophils # Man PT INR POC ABG pH POC ABG pCO2 POC ABG pO2 Sodium Potassium Chloride Carbon Dioxide BUN Creatinine Glucose POC Glucose 305 H 219 H 171 H Lactic Acid Calcium Magnesium Total Bilirubin AST ALT Alkaline Phosphatase Ammonia Troponin T C-Reactive Protein Total Protein Albumin Prealbumin TSH Crossmatch 09/11/16 09/12/16 09/12/16 23:35 03:33 05:00 WBC 12.9 H RBC 2.81 L Hgb 8.2 L Hct 25.4 L MCV MCH MCHC RDW 17.9 H Plt Count Seg Neutrophils % Seg Neuts % (Manual) Nucleated RBC % Seg Neutrophils # Seg Neutrophils # Man PT INR POC ABG pH POC ABG pCO2 POC ABG pO2 Sodium Potassium Chloride Carbon Dioxide BUN Creatinine Glucose POC Glucose 216 H 183 H Lactic Acid Calcium Magnesium Total Bilirubin AST ALT Alkaline Phosphatase Ammonia Troponin T C-Reactive Protein Total Protein Albumin Prealbumin TSH Crossmatch 09/12/16 09/12/16 09/12/16 05:00 15:15 18:30 WBC RBC Hgb Hct MCV MCH MCHC RDW Plt Count Seg Neutrophils % Seg Neuts % (Manual) Nucleated RBC % Seg Neutrophils # Seg Neutrophils # Man PT INR POC ABG pH POC ABG pCO2 POC ABG pO2 Sodium Potassium 3.0 L 3.4 L Chloride Carbon Dioxide BUN 33 H Creatinine 0.5 L Glucose POC Glucose 215 H Lactic Acid Calcium 7.0 L Magnesium Total Bilirubin AST ALT Alkaline Phosphatase Ammonia Troponin T C-Reactive Protein Total Protein Albumin Prealbumin TSH Crossmatch 09/12/16 09/13/16 09/13/16 23:17 05:50 05:50 WBC RBC 2.93 L Hgb 8.8 L Hct 26.7 L MCV MCH MCHC RDW 18.0 H Plt Count Seg Neutrophils % Seg Neuts % (Manual) Nucleated RBC % Seg Neutrophils # Seg Neutrophils # Man PT INR POC ABG pH POC ABG pCO2 POC ABG pO2 Sodium Potassium 2.6 L* D Chloride Carbon Dioxide BUN 29 H Creatinine 0.5 L Glucose 106 H POC Glucose 155 H Lactic Acid Calcium 7.3 L Magnesium Total Bilirubin AST ALT Alkaline Phosphatase Ammonia Troponin T C-Reactive Protein Total Protein Albumin Prealbumin TSH Crossmatch 09/13/16 09/13/16 09/13/16 05:53 11:43 15:07 WBC RBC Hgb Hct MCV MCH MCHC RDW Plt Count Seg Neutrophils % Seg Neuts % (Manual) Nucleated RBC % Seg Neutrophils # Seg Neutrophils # Man PT INR POC ABG pH POC ABG pCO2 POC ABG pO2 Sodium Potassium 2.8 L* Chloride Carbon Dioxide BUN Creatinine Glucose POC Glucose 119 H 129 H Lactic Acid Calcium Magnesium Total Bilirubin AST ALT Alkaline Phosphatase Ammonia Troponin T C-Reactive Protein Total Protein Albumin Prealbumin TSH Crossmatch 09/13/16 09/13/16 09/14/16 17:39 23:30 05:34 WBC RBC Hgb Hct MCV MCH MCHC RDW Plt Count Seg Neutrophils % Seg Neuts % (Manual) Nucleated RBC % Seg Neutrophils # Seg Neutrophils # Man PT INR POC ABG pH POC ABG pCO2 POC ABG pO2 Sodium Potassium Chloride Carbon Dioxide BUN Creatinine Glucose POC Glucose 144 H 196 H 175 H Lactic Acid Calcium Magnesium Total Bilirubin AST ALT Alkaline Phosphatase Ammonia Troponin T C-Reactive Protein Total Protein Albumin Prealbumin TSH Crossmatch 09/14/16 09/14/16 09/14/16 06:24 06:24 12:41 WBC RBC 2.82 L Hgb 8.4 L Hct 25.7 L MCV MCH MCHC RDW 18.0 H Plt Count Seg Neutrophils % Seg Neuts % (Manual) Nucleated RBC % Seg Neutrophils # Seg Neutrophils # Man PT INR POC ABG pH POC ABG pCO2 POC ABG pO2 Sodium Potassium 2.9 L* Chloride 107.3 H Carbon Dioxide BUN 26 H Creatinine 0.4 L Glucose 169 H POC Glucose 184 H Lactic Acid Calcium 7.5 L Magnesium Total Bilirubin AST ALT Alkaline Phosphatase Ammonia Troponin T C-Reactive Protein Total Protein Albumin Prealbumin TSH Crossmatch 09/14/16 09/14/16 09/14/16 14:50 17:57 23:34 WBC RBC Hgb Hct MCV MCH MCHC RDW Plt Count Seg Neutrophils % Seg Neuts % (Manual) Nucleated RBC % Seg Neutrophils # Seg Neutrophils # Man PT INR POC ABG pH POC ABG pCO2 POC ABG pO2 Sodium Potassium 3.3 L Chloride Carbon Dioxide BUN Creatinine Glucose POC Glucose 191 H 178 H Lactic Acid Calcium Magnesium Total Bilirubin AST ALT Alkaline Phosphatase Ammonia Troponin T C-Reactive Protein Total Protein Albumin Prealbumin TSH Crossmatch 09/15/16 09/15/16 09/15/16 05:02 07:57 07:57 WBC RBC 3.04 L Hgb 9.2 L Hct 28.2 L MCV MCH MCHC RDW 18.8 H Plt Count Seg Neutrophils % Seg Neuts % (Manual) Nucleated RBC % Seg Neutrophils # Seg Neutrophils # Man PT INR POC ABG pH POC ABG pCO2 POC ABG pO2 Sodium Potassium Chloride 107.2 H Carbon Dioxide BUN 26 H Creatinine 0.4 L Glucose 160 H POC Glucose 192 H Lactic Acid Calcium 7.7 L Magnesium Total Bilirubin AST ALT Alkaline Phosphatase Ammonia Troponin T C-Reactive Protein Total Protein Albumin Prealbumin TSH Crossmatch 06/09/2609/15/16 09/15/16 11:23 17:51 23:45 WBC RBC Hgb Hct MCV MCH MCHC RDW Plt Count Seg Neutrophils % Seg Neuts % (Manual) Nucleated RBC % Seg Neutrophils # Seg Neutrophils # Man PT INR POC ABG pH POC ABG pCO2 POC ABG pO2 Sodium Potassium Chloride Carbon Dioxide BUN Creatinine Glucose POC Glucose 232 H 240 H 251 H Lactic Acid Calcium Magnesium Total Bilirubin AST ALT Alkaline Phosphatase Ammonia Troponin T C-Reactive Protein Total Protein Albumin Prealbumin TSH Crossmatch 09/16/16 09/16/16 09/16/16 04:55 04:55 05:38 WBC RBC 2.84 L Hgb 8.6 L Hct 26.2 L MCV MCH MCHC RDW 18.8 H Plt Count Seg Neutrophils % Seg Neuts % (Manual) Nucleated RBC % Seg Neutrophils # Seg Neutrophils # Man PT INR POC ABG pH POC ABG pCO2 POC ABG pO2 Sodium Potassium 3.1 L Chloride 107.6 H Carbon Dioxide BUN 25 H Creatinine 0.3 L Glucose 134 H POC Glucose 157 H Lactic Acid Calcium 7.6 L Magnesium Total Bilirubin AST ALT Alkaline Phosphatase Ammonia Troponin T C-Reactive Protein Total Protein Albumin Prealbumin TSH Crossmatch 09/16/16 09/16/16 09/16/16 11:53 17:56 23:54 WBC RBC Hgb Hct MCV MCH MCHC RDW Plt Count Seg Neutrophils % Seg Neuts % (Manual) Nucleated RBC % Seg Neutrophils # Seg Neutrophils # Man PT INR POC ABG pH POC ABG pCO2 POC ABG pO2 Sodium Potassium Chloride Carbon Dioxide BUN Creatinine Glucose POC Glucose 137 H 138 H 179 H Lactic Acid Calcium Magnesium Total Bilirubin AST ALT Alkaline Phosphatase Ammonia Troponin T C-Reactive Protein Total Protein Albumin Prealbumin TSH Crossmatch 09/17/16 09/17/16 09/17/16 05:00 05:00 05:28 WBC RBC 2.77 L Hgb 8.2 L Hct 25.9 L MCV MCH MCHC RDW 19.1 H Plt Count Seg Neutrophils % Seg Neuts % (Manual) Nucleated RBC % Seg Neutrophils # Seg Neutrophils # Man PT INR POC ABG pH POC ABG pCO2 POC ABG pO2 Sodium Potassium 3.5 L Chloride 108.4 H Carbon Dioxide BUN 29 H Creatinine 0.3 L Glucose 117 H POC Glucose 142 H Lactic Acid Calcium 7.4 L Magnesium Total Bilirubin AST ALT Alkaline Phosphatase Ammonia Troponin T C-Reactive Protein Total Protein Albumin Prealbumin TSH Crossmatch 09/17/16 09/17/16 09/18/16 18:07 23:31 06:29 WBC RBC Hgb Hct MCV MCH MCHC RDW Plt Count Seg Neutrophils % Seg Neuts % (Manual) Nucleated RBC % Seg Neutrophils # Seg Neutrophils # Man PT INR POC ABG pH POC ABG pCO2 POC ABG pO2 Sodium Potassium Chloride Carbon Dioxide BUN Creatinine Glucose POC Glucose 173 H 240 H 282 H Lactic Acid Calcium Magnesium Total Bilirubin AST ALT Alkaline Phosphatase Ammonia Troponin T C-Reactive Protein Total Protein Albumin Prealbumin TSH Crossmatch 09/18/16 09/18/16 09/18/16 06:30 12:21 17:55 WBC RBC Hgb Hct MCV MCH MCHC RDW Plt Count Seg Neutrophils % Seg Neuts % (Manual) Nucleated RBC % Seg Neutrophils # Seg Neutrophils # Man PT INR POC ABG pH POC ABG pCO2 POC ABG pO2 Sodium 148 H Potassium Chloride 110.7 H Carbon Dioxide BUN 30 H Creatinine 0.4 L Glucose 249 H POC Glucose 248 H 255 H Lactic Acid Calcium 7.4 L Magnesium 1.60 L Total Bilirubin AST ALT Alkaline Phosphatase Ammonia Troponin T C-Reactive Protein Total Protein Albumin Prealbumin TSH Crossmatch 09/19/16 09/19/16 09/19/16 00:09 04:45 05:11 WBC RBC Hgb Hct MCV MCH MCHC RDW Plt Count Seg Neutrophils % Seg Neuts % (Manual) Nucleated RBC % Seg Neutrophils # Seg Neutrophils # Man PT INR POC ABG pH POC ABG pCO2 POC ABG pO2 Sodium 146 H Potassium Chloride 110.8 H Carbon Dioxide BUN 34 H Creatinine 0.4 L Glucose 278 H POC Glucose 324 H 278 H Lactic Acid Calcium 7.3 L Magnesium Total Bilirubin AST ALT Alkaline Phosphatase Ammonia Troponin T C-Reactive Protein Total Protein Albumin Prealbumin TSH Crossmatch 09/19/16 09/19/16 09/19/16 11:12 12:09 17:10 WBC RBC Hgb Hct MCV MCH MCHC RDW Plt Count Seg Neutrophils % Seg Neuts % (Manual) Nucleated RBC % Seg Neutrophils # Seg Neutrophils # Man PT INR POC ABG pH POC ABG pCO2 POC ABG pO2 Sodium Potassium Chloride Carbon Dioxide BUN Creatinine Glucose POC Glucose 306 H 225 H 329 H Lactic Acid Calcium Magnesium Total Bilirubin AST ALT Alkaline Phosphatase Ammonia Troponin T C-Reactive Protein Total Protein Albumin Prealbumin TSH Crossmatch 09/19/16 09/20/16 09/20/16 23:34 04:52 05:00 WBC RBC Hgb Hct MCV MCH MCHC RDW Plt Count Seg Neutrophils % Seg Neuts % (Manual) Nucleated RBC % Seg Neutrophils # Seg Neutrophils # Man PT INR POC ABG pH POC ABG pCO2 POC ABG pO2 Sodium Potassium Chloride 108.6 H Carbon Dioxide BUN 35 H Creatinine 0.4 L Glucose 370 H POC Glucose 376 H 374 H Lactic Acid Calcium 7.3 L Magnesium Total Bilirubin AST ALT Alkaline Phosphatase Ammonia Troponin T C-Reactive Protein Total Protein Albumin Prealbumin TSH Crossmatch 09/20/16 09/20/16 09/20/16 11:18 17:39 23:49 WBC RBC Hgb Hct MCV MCH MCHC RDW Plt Count Seg Neutrophils % Seg Neuts % (Manual) Nucleated RBC % Seg Neutrophils # Seg Neutrophils # Man PT INR POC ABG pH POC ABG pCO2 POC ABG pO2 Sodium Potassium Chloride Carbon Dioxide BUN Creatinine Glucose POC Glucose 342 H 416 H 440 H Lactic Acid Calcium Magnesium Total Bilirubin AST ALT Alkaline Phosphatase Ammonia Troponin T C-Reactive Protein Total Protein Albumin Prealbumin TSH Crossmatch 09/21/16 09/21/16 09/21/16 04:58 05:15 05:15 WBC RBC 1.48 L Hgb 4.6 L* Hct 14.9 L* MCV 100 H MCH MCHC RDW 25.4 H Plt Count Seg Neutrophils % Seg Neuts % (Manual) Nucleated RBC % Seg Neutrophils # Seg Neutrophils # Man PT INR POC ABG pH POC ABG pCO2 POC ABG pO2 Sodium Potassium Chloride 107.5 H Carbon Dioxide 20 L BUN 45 H Creatinine 0.6 L Glucose 490 H POC Glucose > 500 H Lactic Acid Calcium 7.0 L Magnesium Total Bilirubin AST ALT Alkaline Phosphatase Ammonia Troponin T C-Reactive Protein Total Protein Albumin Prealbumin TSH Crossmatch 09/21/16 09/21/16 09/21/16 08:20 09:17 12:09 WBC RBC Hgb Hct MCV MCH MCHC RDW Plt Count Seg Neutrophils % Seg Neuts % (Manual) Nucleated RBC % Seg Neutrophils # Seg Neutrophils # Man PT INR POC ABG pH 7.464 H POC ABG pCO2 29.3 L POC ABG pO2 198 H Sodium Potassium Chloride Carbon Dioxide BUN Creatinine Glucose POC Glucose 248 H Lactic Acid Calcium Magnesium Total Bilirubin AST ALT Alkaline Phosphatase Ammonia Troponin T C-Reactive Protein Total Protein Albumin Prealbumin TSH Crossmatch See Detail 09/21/16 09/21/16 09/21/16 15:21 17:36 18:49 WBC RBC Hgb Hct MCV MCH MCHC RDW Plt Count Seg Neutrophils % Seg Neuts % (Manual) Nucleated RBC % Seg Neutrophils # Seg Neutrophils # Man PT INR POC ABG pH POC ABG pCO2 POC ABG pO2 Sodium Potassium Chloride Carbon Dioxide BUN Creatinine Glucose POC Glucose 403 H 437 H 482 H Lactic Acid Calcium Magnesium Total Bilirubin AST ALT Alkaline Phosphatase Ammonia Troponin T C-Reactive Protein Total Protein Albumin Prealbumin TSH Crossmatch 09/21/16 09/22/16 09/22/16 23:29 00:00 01:29 WBC 14.8 H RBC 2.94 L Hgb 9.1 L D Hct 27.5 L D MCV MCH MCHC RDW 16.7 H Plt Count Seg Neutrophils % Seg Neuts % (Manual) Nucleated RBC % Seg Neutrophils # Seg Neutrophils # Man PT INR POC ABG pH POC ABG pCO2 POC ABG pO2 Sodium Potassium Chloride Carbon Dioxide BUN Creatinine Glucose POC Glucose 311 H 288 H Lactic Acid Calcium Magnesium Total Bilirubin AST ALT Alkaline Phosphatase Ammonia Troponin T C-Reactive Protein Total Protein Albumin Prealbumin TSH Crossmatch 09/22/16 09/22/16 09/22/16 02:29 03:12 03:26 WBC RBC Hgb Hct MCV MCH MCHC RDW Plt Count Seg Neutrophils % Seg Neuts % (Manual) Nucleated RBC % Seg Neutrophils # Seg Neutrophils # Man PT INR POC ABG pH 7.460 H POC ABG pCO2 29.9 L POC ABG pO2 112 H Sodium Potassium Chloride Carbon Dioxide BUN Creatinine Glucose POC Glucose 261 H 239 H Lactic Acid Calcium Magnesium Total Bilirubin AST ALT Alkaline Phosphatase Ammonia Troponin T C-Reactive Protein Total Protein Albumin Prealbumin TSH Crossmatch 09/22/16 09/22/16 09/22/16 05:35 06:40 06:40 WBC 13.5 H RBC 3.18 L Hgb 9.5 L Hct 28.8 L MCV MCH MCHC RDW 16.2 H Plt Count Seg Neutrophils % Seg Neuts % (Manual) Nucleated RBC % Seg Neutrophils # Seg Neutrophils # Man PT INR POC ABG pH POC ABG pCO2 POC ABG pO2 Sodium 147 H Potassium 3.2 L D Chloride 112.3 H Carbon Dioxide BUN 49 H Creatinine 0.6 L Glucose 102 H POC Glucose 181 H Lactic Acid Calcium 7.5 L Magnesium Total Bilirubin AST ALT Alkaline Phosphatase Ammonia Troponin T C-Reactive Protein Total Protein Albumin Prealbumin TSH Crossmatch Allied health notes reviewed: RT
[2016-09-22] MEDS: KCL 20MEQ/100ML 20 MEQ/100 ML BAG IV SCH ×2 (13:51→14:52)
[2016-09-22] MEDS: FERROUS SULFATE PO SCH (14:05)
[2016-09-22] MEDS: FOLVITE PO SCH (14:05)
[2016-09-22] MEDS: POTASSIUM CHLORIDE FEEDTUBE SCH (14:05)
--- NOTE | 2016-09-22 14:34 | Gastroenterology Progress Note ---
Assessment and Plan GI: pt w/o signs active bleeding - given overall medical situation no plans to scope or other GI intervention - prognosis poor - will sign off, call if needed Subjective Date of service: 09/22/16 Principal diagnosis: Acute Hypoxemic Hypercapnic Resp Failure; Severe Sepsis Interval history: - no improvement in status, no signs bleeding overnight Objective - Constitutional Vitals: Temp Pulse Resp BP Pulse Ox 97.7 F 84 25 H 104/45 42 L 09/22/16 12:00 09/22/16 14:10 09/22/16 14:10 09/22/16 14:10 09/22/16 14:10 General appearance: no acute distress - Respiratory Respiratory: bilateral: CTA - Cardiovascular Rhythm: regular Heart Sounds: Present: S1 & S2 - Gastrointestinal General gastrointestinal: Present: soft, non-tender - Labs CBC & Chem 7: 09/22/16 06:40 09/22/16 06:40 Labs: Laboratory Results - last 24 hr 09/21/16 09/21/16 09/21/16 08:20 09:17 15:21 WBC RBC Hgb Hct MCV MCH MCHC RDW Plt Count POC ABG pH POC ABG pCO2 POC ABG pO2 POC ABG HCO3 POC ABG Total CO2 POC ABG O2 Sat POC ABG Base Excess FiO2 Sodium Potassium Chloride Carbon Dioxide Anion Gap BUN Creatinine Estimated GFR BUN/Creatinine Ratio Glucose POC Glucose 248 H 403 H Calcium Blood Type O POSITIVE Antibody Screen TNR PATRICK Antibody Screen Negative Crossmatch See Detail 09/21/16 09/21/16 09/21/16 17:36 18:49 23:29 WBC RBC Hgb Hct MCV MCH MCHC RDW Plt Count POC ABG pH POC ABG pCO2 POC ABG pO2 POC ABG HCO3 POC ABG Total CO2 POC ABG O2 Sat POC ABG Base Excess FiO2 Sodium Potassium Chloride Carbon Dioxide Anion Gap BUN Creatinine Estimated GFR BUN/Creatinine Ratio Glucose POC Glucose 437 H 482 H 311 H Calcium Blood Type Antibody Screen PATRICK Antibody Screen Crossmatch 09/22/16 09/22/16 09/22/16 00:00 01:29 02:29 WBC 14.8 H RBC 2.94 L Hgb 9.1 L D Hct 27.5 L D MCV 93 D MCH 31 MCHC 33 RDW 16.7 H Plt Count 146 POC ABG pH POC ABG pCO2 POC ABG pO2 POC ABG HCO3 POC ABG Total CO2 POC ABG O2 Sat POC ABG Base Excess FiO2 Sodium Potassium Chloride Carbon Dioxide Anion Gap BUN Creatinine Estimated GFR BUN/Creatinine Ratio Glucose POC Glucose 288 H 261 H Calcium Blood Type Antibody Screen PATRICK Antibody Screen Crossmatch 09/22/16 09/22/16 09/22/16 03:12 03:26 05:35 WBC RBC Hgb Hct MCV MCH MCHC RDW Plt Count POC ABG pH 7.460 H POC ABG pCO2 29.9 L POC ABG pO2 112 H POC ABG HCO3 21.3 POC ABG Total CO2 22 POC ABG O2 Sat 99 POC ABG Base Excess -3 FiO2 25 Sodium Potassium Chloride Carbon Dioxide Anion Gap BUN Creatinine Estimated GFR BUN/Creatinine Ratio Glucose POC Glucose 239 H 181 H Calcium Blood Type Antibody Screen PATRICK Antibody Screen Crossmatch 09/22/16 09/22/16 09/22/16 06:40 06:40 07:16 WBC 13.5 H RBC 3.18 L Hgb 9.5 L Hct 28.8 L MCV 90 D MCH 30 MCHC 33 RDW 16.2 H Plt Count 147 POC ABG pH POC ABG pCO2 POC ABG pO2 POC ABG HCO3 POC ABG Total CO2 POC ABG O2 Sat POC ABG Base Excess FiO2 Sodium 147 H Potassium 3.2 L D Chloride 112.3 H Carbon Dioxide 23 Anion Gap 15 BUN 49 H Creatinine 0.6 L Estimated GFR > 60 BUN/Creatinine Ratio 81.66 Glucose 102 H POC Glucose 152 H Calcium 7.5 L Blood Type Antibody Screen PATRICK Antibody Screen Crossmatch 09/22/16 09/22/16 09/22/16 07:57 09:08 10:12 WBC RBC Hgb Hct MCV MCH MCHC RDW Plt Count POC ABG pH POC ABG pCO2 POC ABG pO2 POC ABG HCO3 POC ABG Total CO2 POC ABG O2 Sat POC ABG Base Excess FiO2 Sodium Potassium Chloride Carbon Dioxide Anion Gap BUN Creatinine Estimated GFR BUN/Creatinine Ratio Glucose POC Glucose 78 75 78 Calcium Blood Type Antibody Screen PATRICK Antibody Screen Crossmatch 09/22/16 09/22/16 11:10 12:18 WBC RBC Hgb Hct MCV MCH MCHC RDW Plt Count POC ABG pH POC ABG pCO2 POC ABG pO2 POC ABG HCO3 POC ABG Total CO2 POC ABG O2 Sat POC ABG Base Excess FiO2 Sodium Potassium Chloride Carbon Dioxide Anion Gap BUN Creatinine Estimated GFR BUN/Creatinine Ratio Glucose POC Glucose 85 83 Calcium Blood Type Antibody Screen PATRICK Antibody Screen Crossmatch
--- NOTE | 2016-09-22 14:41 | Progress Note ---
Assessment and Plan Asked CM to clarify family goals given pts overall condition and poor prognosis. As she is already an AND, consideration should be given to a complete family decsion prior to trache and peg. Hgb appears to be stable. continue to monitor. Will follow. Subjective Date of service: 09/22/16 Patient Reports: Positive: other (pressors off). Negative: blood in stool Objective Vital Signs - 12hr 09/22/16 09/22/16 09/22/16 02:40 02:50 03:00 Temperature Pulse Rate 90 74 77 Pulse Rate [ Anterior Bilateral Throughout] Pulse Rate [ From Monitor] Respiratory 25 H 25 H 26 H Rate Respiratory Rate [Anterior Bilateral Throughout] Blood Pressure 135/35 146/62 146/62 O2 Sat by Pulse 100 100 100 Oximetry 09/22/16 09/22/16 09/22/16 03:10 03:20 03:28 Temperature Pulse Rate 85 81 83 Pulse Rate [ Anterior Bilateral Throughout] Pulse Rate [ From Monitor] Respiratory 27 H 26 H Rate Respiratory Rate [Anterior Bilateral Throughout] Blood Pressure 133/68 227/185 135/35 O2 Sat by Pulse 100 100 Oximetry 09/22/16 09/22/16 09/22/16 03:30 03:40 03:50 Temperature Pulse Rate 73 88 77 Pulse Rate [ Anterior Bilateral Throughout] Pulse Rate [ From Monitor] Respiratory 25 H 24 25 H Rate Respiratory Rate [Anterior Bilateral Throughout] Blood Pressure 112/39 112/39 121/46 O2 Sat by Pulse 100 92 100 Oximetry 09/22/16 09/22/16 09/22/16 04:00 04:10 04:20 Temperature 96.5 F L Pulse Rate 77 79 84 Pulse Rate [ Anterior Bilateral Throughout] Pulse Rate [ From Monitor] Respiratory 26 H 26 H 22 Rate Respiratory Rate [Anterior Bilateral Throughout] Blood Pressure 111/45 111/45 118/45 O2 Sat by Pulse 100 100 100 Oximetry 09/22/16 09/22/16 09/22/16 04:30 04:40 04:50 Temperature Pulse Rate 77 91 H 81 Pulse Rate [ Anterior Bilateral Throughout] Pulse Rate [ From Monitor] Respiratory 22 23 25 H Rate Respiratory Rate [Anterior Bilateral Throughout] Blood Pressure 118/45 126/49 124/83 O2 Sat by Pulse 100 100 100 Oximetry 09/22/16 09/22/16 09/22/16 05:00 05:10 05:20 Temperature Pulse Rate 83 79 114 H Pulse Rate [ Anterior Bilateral Throughout] Pulse Rate [ From Monitor] Respiratory 24 26 H 24 Rate Respiratory Rate [Anterior Bilateral Throughout] Blood Pressure 116/55 116/55 117/72 O2 Sat by Pulse 100 100 100 Oximetry 09/22/16 09/22/16 09/22/16 05:30 05:40 05:50 Temperature Pulse Rate 80 92 H 79 Pulse Rate [ Anterior Bilateral Throughout] Pulse Rate [ From Monitor] Respiratory 18 25 H 25 H Rate Respiratory Rate [Anterior Bilateral Throughout] Blood Pressure 105/58 105/58 132/57 O2 Sat by Pulse 93 100 100 Oximetry 09/22/16 09/22/16 09/22/16 06:00 06:10 06:20 Temperature Pulse Rate 71 78 74 Pulse Rate [ Anterior Bilateral Throughout] Pulse Rate [ From Monitor] Respiratory 18 25 H 23 Rate Respiratory Rate [Anterior Bilateral Throughout] Blood Pressure 132/57 140/37 136/46 O2 Sat by Pulse 100 100 100 Oximetry 09/22/16 09/22/16 09/22/16 06:30 06:33 06:40 Temperature Pulse Rate 81 109 H 70 Pulse Rate [ Anterior Bilateral Throughout] Pulse Rate [ From Monitor] Respiratory 27 H 28 H Rate Respiratory Rate [Anterior Bilateral Throughout] Blood Pressure 114/38 96/68 114/38 O2 Sat by Pulse 100 100 Oximetry 09/22/16 09/22/16 09/22/16 06:50 07:00 07:10 Temperature Pulse Rate 90 114 H 94 H Pulse Rate [ Anterior Bilateral Throughout] Pulse Rate [ From Monitor] Respiratory 26 H 12 17 Rate Respiratory Rate [Anterior Bilateral Throughout] Blood Pressure 137/64 137/64 137/64 O2 Sat by Pulse 100 100 100 Oximetry 09/22/16 09/22/16 09/22/16 07:20 07:30 07:36 Temperature Pulse Rate 124 H 71 108 H Pulse Rate [ Anterior Bilateral Throughout] Pulse Rate [ From Monitor] Respiratory 25 H 22 Rate Respiratory Rate [Anterior Bilateral Throughout] Blood Pressure 139/53 139/53 136/64 O2 Sat by Pulse 100 100 100 Oximetry 09/22/16 09/22/16 09/22/16 07:40 07:48 07:50 Temperature Pulse Rate 76 117 H Pulse Rate [ 101 H Anterior Bilateral Throughout] Pulse Rate [ From Monitor] Respiratory 21 23 Rate Respiratory 28 H Rate [Anterior Bilateral Throughout] Blood Pressure 136/64 130/58 O2 Sat by Pulse 84 100 Oximetry 09/22/16 09/22/16 09/22/16 08:00 08:10 08:20 Temperature 97.9 F Pulse Rate 62 71 73 Pulse Rate [ Anterior Bilateral Throughout] Pulse Rate [ 92 H From Monitor] Respiratory 30 H 27 H 24 Rate Respiratory Rate [Anterior Bilateral Throughout] Blood Pressure 144/57 144/57 144/57 O2 Sat by Pulse 94 63 L 94 Oximetry 09/22/16 09/22/16 09/22/16 08:29 08:30 08:40 Temperature Pulse Rate 74 84 Pulse Rate [ 84 Anterior Bilateral Throughout] Pulse Rate [ From Monitor] Respiratory 26 H 26 H Rate Respiratory 38 H Rate [Anterior Bilateral Throughout] Blood Pressure 139/61 119/42 O2 Sat by Pulse 100 96 Oximetry 09/22/16 09/22/16 09/22/16 08:50 09:00 09:10 Temperature Pulse Rate 77 80 101 H Pulse Rate [ Anterior Bilateral Throughout] Pulse Rate [ From Monitor] Respiratory 23 24 23 Rate Respiratory Rate [Anterior Bilateral Throughout] Blood Pressure 112/50 93/54 93/54 O2 Sat by Pulse 87 100 95 Oximetry 09/22/16 09/22/16 09/22/16 09:20 09:30 09:40 Temperature Pulse Rate 77 76 74 Pulse Rate [ Anterior Bilateral Throughout] Pulse Rate [ From Monitor] Respiratory 23 22 19 Rate Respiratory Rate [Anterior Bilateral Throughout] Blood Pressure 93/54 120/45 120/45 O2 Sat by Pulse 81 L 100 96 Oximetry 09/22/16 09/22/16 09/22/16 09:50 10:00 10:10 Temperature Pulse Rate 72 82 80 Pulse Rate [ Anterior Bilateral Throughout] Pulse Rate [ From Monitor] Respiratory 26 H 25 H 17 Rate Respiratory Rate [Anterior Bilateral Throughout] Blood Pressure 108/40 121/51 121/51 O2 Sat by Pulse 99 89 98 Oximetry 09/22/16 09/22/16 09/22/16 10:20 10:30 10:40 Temperature Pulse Rate 84 89 91 H Pulse Rate [ Anterior Bilateral Throughout] Pulse Rate [ From Monitor] Respiratory 21 21 25 H Rate Respiratory Rate [Anterior Bilateral Throughout] Blood Pressure 115/38 115/38 130/109 O2 Sat by Pulse 91 67 L 100 Oximetry 09/22/16 09/22/16 09/22/16 10:50 11:00 11:10 Temperature Pulse Rate 140 H 81 99 H Pulse Rate [ Anterior Bilateral Throughout] Pulse Rate [ From Monitor] Respiratory 26 H 24 24 Rate Respiratory Rate [Anterior Bilateral Throughout] Blood Pressure 136/97 136/97 97/43 O2 Sat by Pulse 75 L 87 97 Oximetry 09/22/16 09/22/16 09/22/16 11:20 11:30 11:40 Temperature Pulse Rate 102 H 71 80 Pulse Rate [ Anterior Bilateral Throughout] Pulse Rate [ From Monitor] Respiratory 24 16 25 H Rate Respiratory Rate [Anterior Bilateral Throughout] Blood Pressure 89/41 106/78 106/78 O2 Sat by Pulse 80 L 98 92 Oximetry 09/22/16 09/22/16 09/22/16 11:50 11:52 12:00 Temperature 97.7 F Pulse Rate 99 H 101 H 66 Pulse Rate [ Anterior Bilateral Throughout] Pulse Rate [ From Monitor] Respiratory 25 H 19 Rate Respiratory Rate [Anterior Bilateral Throughout] Blood Pressure O2 Sat by Pulse 87 100 95 Oximetry 09/22/16 09/22/16 09/22/16 12:10 12:20 12:30 Temperature Pulse Rate 70 102 H 83 Pulse Rate [ Anterior Bilateral Throughout] Pulse Rate [ From Monitor] Respiratory 25 H 25 H 26 H Rate Respiratory Rate [Anterior Bilateral Throughout] Blood Pressure 107/81 O2 Sat by Pulse 92 88 95 Oximetry 09/22/16 09/22/16 09/22/16 12:40 12:50 13:00 Temperature Pulse Rate 82 107 H 86 Pulse Rate [ Anterior Bilateral Throughout] Pulse Rate [ From Monitor] Respiratory 25 H 25 H 26 H Rate Respiratory Rate [Anterior Bilateral Throughout] Blood Pressure 95/59 95/68 95/69 O2 Sat by Pulse 100 93 85 Oximetry 09/22/16 09/22/16 09/22/16 13:10 13:16 13:20 Temperature Pulse Rate 83 102 H Pulse Rate [ 90 Anterior Bilateral Throughout] Pulse Rate [ From Monitor] Respiratory 20 23 Rate Respiratory 26 H Rate [Anterior Bilateral Throughout] Blood Pressure 95/69 93/64 O2 Sat by Pulse 88 87 Oximetry 09/22/16 09/22/16 09/22/16 13:30 13:40 13:47 Temperature Pulse Rate 70 86 Pulse Rate [ 106 H Anterior Bilateral Throughout] Pulse Rate [ From Monitor] Respiratory 25 H 30 H Rate Respiratory 36 H Rate [Anterior Bilateral Throughout] Blood Pressure 93/64 97/40 O2 Sat by Pulse 89 83 L Oximetry 09/22/16 09/22/16 09/22/16 13:50 14:00 14:10 Temperature Pulse Rate 98 H 93 H 84 Pulse Rate [ Anterior Bilateral Throughout] Pulse Rate [ From Monitor] Respiratory 25 H 25 H 25 H Rate Respiratory Rate [Anterior Bilateral Throughout] Blood Pressure 110/53 104/45 104/45 O2 Sat by Pulse 41 L 57 L 42 L Oximetry - General physical appearance no distress - Abdomen soft, not tender - Psychiatric other (unresponsive) - Labs 09/22/16 06:40 09/22/16 06:40 Diabetes panel 09/22/16 Range/Units 06:40 Sodium 147 H (137-145) mmol/L Potassium 3.2 L D (3.6-5.0) mmol/L Chloride 112.3 H (98-107) mmol/L Carbon Dioxide 23 (22-30) mmol/L BUN 49 H (7-17) mg/dL Creatinine 0.6 L (0.7-1.2) mg/dL Glucose 102 H (65-100) mg/dL Calcium 7.5 L (8.4-10.2) mg/dL Calcium panel 09/22/16 Range/Units 06:40 Calcium 7.5 L (8.4-10.2) mg/dL Pituitary panel 09/22/16 Range/Units 06:40 Sodium 147 H (137-145) mmol/L Potassium 3.2 L D (3.6-5.0) mmol/L Chloride 112.3 H (98-107) mmol/L Carbon Dioxide 23 (22-30) mmol/L BUN 49 H (7-17) mg/dL Creatinine 0.6 L (0.7-1.2) mg/dL Glucose 102 H (65-100) mg/dL Calcium 7.5 L (8.4-10.2) mg/dL Adrenal panel 09/22/16 Range/Units 06:40 Sodium 147 H (137-145) mmol/L Potassium 3.2 L D (3.6-5.0) mmol/L Chloride 112.3 H (98-107) mmol/L Carbon Dioxide 23 (22-30) mmol/L BUN 49 H (7-17) mg/dL Creatinine 0.6 L (0.7-1.2) mg/dL Glucose 102 H (65-100) mg/dL Calcium 7.5 L (8.4-10.2) mg/dL
[2016-09-22] MEDS: SYNTHROID IV SCH (14:51)
[2016-09-22 21:40] LABS: Hemoglobin 9.2 gm/dl (10.1-14.3); Mean Corpuscular HGB Conc 33 % (30-34); Mean Corpuscular Hemoglobin 30 pg (28-32); Mean Corpuscular Volume 92 fl (79-97); Platelet Count 156 K/mm3 (140-440); Red Blood Count 3.04 M/mm3 (3.65-5.03); Red Cell Distribution Width 16.2 % (13.2-15.2); White Blood Count 13.8 K/mm3 (4.5-11.0)
[2016-09-23] MEDS: PROAMATINE PO SCH ×4 (02:01→22:35)
[2016-09-23] MEDS: DUONEB 0.5 MG-3 MG/3 ML SOLN IH SCH ×4 (02:17→19:29)
[2016-09-23] MEDS: LOPRESSOR PO SCH ×3 (05:00→17:40)
[2016-09-23 05:02] LABS: Hematocrit 26.4 % (30.3-42.9); Hemoglobin 8.6 gm/dl (10.1-14.3); Mean Corpuscular HGB Conc 33 % (30-34); Mean Corpuscular Hemoglobin 30 pg (28-32); Mean Corpuscular Volume 92 fl (79-97); Platelet Count 158 K/mm3 (140-440); Red Blood Count 2.86 M/mm3 (3.65-5.03); Red Cell Distribution Width 17.1 % (13.2-15.2); White Blood Count 13.6 K/mm3 (4.5-11.0)
[2016-09-23 05:20] LABS: Anion Gap 19 mmol/L; Blood Urea Nitrogen 43 mg/dL (7-17); Calcium 7.7 mg/dL (8.4-10.2); Carbon Dioxide 21 mmol/L (22-30); Chloride 109.2 mmol/L (98-107); Glucose 152 mg/dL (65-100); Potassium 4.2 mmol/L (3.6-5.0); Sodium 145 mmol/L (137-145)
[2016-09-23] MEDS: PROTONIX 80 MG in NACL 0.9% 100 ML IV SCH ×2 (08:13→18:51)
[2016-09-23] MEDS: LASIX IV SCH (09:19)
[2016-09-23] MEDS: SYNTHROID IV SCH (09:19)
[2016-09-23] MEDS: FERROUS SULFATE PO SCH (09:27)
[2016-09-23] MEDS: POTASSIUM CHLORIDE FEEDTUBE SCH (09:28)
[2016-09-23] MEDS: FOLVITE PO SCH (09:28)
[2016-09-23] MEDS: KEPPRA PO SCH ×2 (09:28→23:05)
--- NOTE | 2016-09-23 12:03 | Progress Note ---
Assessment and Plan (1) Respiratory failure Current Visit: Yes Status: Acute Qualifiers: Chronicity: C Respiratory failure complication: R Plan to address problem: - continue to hold PSV trials while unstable - VAP bundle addressed - continue to Wean FIO2 for O2 sats>92% - continue VTE prophylaxis (SCD's re: thrombocytopenia) - continue Stress ulcer prophylaxis (Pantoprazole) - continuing sedation vacations while watching for any obvious seizure activity - continue Lung protective strategies - seen by surgery and consent to be obtained today for trach +/- PEG once clinically and technically feasible - hold diuretics (pulm edema pattern better) - following clinically otherwise (2) Shock Current Visit: Yes Status: Acute Plan to address problem: - Treated as septic shock secondary to HCAP earlier - continue strict glycemic control - completed AB's course; trending WBC - ID following - tapered off stress steroids now - continue midodrine for now but tapering - likely hypovolemic shock at this point with GI bleeding - s/p 4 units PRBC's - will give a liter of IVNS - stop lasix re: hypotension (3) Acute on chronic diastolic (congestive) heart failure Current Visit: No Status: Acute Plan to address problem: - Documented EF 55% - Continue to monitoring renal function and electrolyte profile closely - continue to monitor urine output, electrolyte profile (4) Altered mental status Current Visit: Yes Status: Acute Qualifiers: Altered mental status type: unspecified Coma depth: C Coma timing: C Qualified Code(s): R41.82 - Altered mental status, unspecified Plan to address problem: - Neurology following - on keppra - weaned off ativan and will use prn now - TSH elevated and started on low dose levoxyl (5) Morbid obesity Current Visit: Yes Status: Acute Qualifiers: Obesity type: unspecified obesity type Qualified Code(s): E66.01 - Morbid ( severe) obesity due to excess calories - weight loss strategies once more stable - caloric intake per technology advisor at this point (6) Anemia Current Visit: Yes Status: Acute Qualifiers: Anemia type: unspecified type Iron deficiency anemia type: I Vitamin B12 deficiency anemia type: V Folate deficiency anemia type: F Bone marrow failure anemia type: B Hemolytic anemia type: H Other causes of anemia: O Qualified Code(s): D64.9 - Anemia, unspecified Plan to address problem: - acute GI bleed - to receive 4 units PRBC's in all and will have 2 on hold - GI evaluation ordered - begin protonix drip - H&H holding - protonix drip to stop today - resume tube feeds at 10mls/hr (Lower GI bleed and no rebleed X 48hrs; GI signed off) (7) Status epilepticus Current Visit: Yes Status: Acute Plan to address problem: - Continue AEDs - Neurology following - no obvious clinical seizure activity (8) 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 - This could be secondary to an intra-cranial process, however unable to obtain neuro-imaging, patient's weight exceeds allowable maximum (9) Discharge planning issues Current Visit: Yes Status: Acute Plan to address problem: - Continue current care. - need to determine appropriate power of trial attorney / legal healthcare lead generation representative prior to any tentative withdrawal of care - son came by and signed DNR order however no consensus on hospice care / withdrawal - LTAC refused admission ..she remains critically ill on life sustaining interventions including MVS and back on vasopressors at high risk for further deterioration including ....34' CCT Subjective Date of service: 09/23/16 Principal diagnosis: Acute Hypoxemic Hypercapnic Resp Failure; Severe Sepsis Interval history: Seen and examined at bedside; 24 hour events reviewed; nursing and respiratory care staff consulted; no adverse overnight events reported to me; resting in bed ; more alert today; no gross GI re-bleed and H&H holding; no emesis or overt aspiration Objective Vital Signs - 12hr 09/23/16 09/23/16 09/23/16 00:10 00:20 00:30 Temperature Pulse Rate 105 H 90 93 H Pulse Rate [ Anterior Bilateral Throughout] Pulse Rate [ From Monitor] Respiratory 24 23 25 H Rate Respiratory Rate [Anterior Bilateral Throughout] Blood Pressure 121/36 121/36 121/36 O2 Sat by Pulse 86 92 100 Oximetry 09/23/16 09/23/16 09/23/16 00:40 00:50 01:00 Temperature Pulse Rate 86 107 H 100 H Pulse Rate [ Anterior Bilateral Throughout] Pulse Rate [ From Monitor] Respiratory 25 H 25 H 25 H Rate Respiratory Rate [Anterior Bilateral Throughout] Blood Pressure 85/27 85/27 81/54 O2 Sat by Pulse 100 100 90 Oximetry 09/23/16 09/23/16 09/23/16 01:10 01:20 01:30 Temperature Pulse Rate 93 H 91 H 83 Pulse Rate [ Anterior Bilateral Throughout] Pulse Rate [ From Monitor] Respiratory 26 H 22 27 H Rate Respiratory Rate [Anterior Bilateral Throughout] Blood Pressure 87/37 87/37 80/28 O2 Sat by Pulse 100 100 100 Oximetry 09/23/16 09/23/16 09/23/16 01:40 01:50 02:00 Temperature Pulse Rate 90 97 H 116 H Pulse Rate [ 107 H Anterior Bilateral Throughout] Pulse Rate [ From Monitor] Respiratory 24 27 H 26 H Rate Respiratory 24 Rate [Anterior Bilateral Throughout] Blood Pressure 80/28 80/28 88/37 O2 Sat by Pulse 100 100 100 Oximetry 09/23/16 09/23/16 09/23/16 02:10 02:20 02:30 Temperature Pulse Rate 113 H 109 H 111 H Pulse Rate [ 101 H Anterior Bilateral Throughout] Pulse Rate [ From Monitor] Respiratory 25 H 28 H 27 H Rate Respiratory 22 Rate [Anterior Bilateral Throughout] Blood Pressure 114/34 114/34 101/35 O2 Sat by Pulse 100 100 100 Oximetry 09/23/16 09/23/16 09/23/16 02:40 02:50 03:00 Temperature Pulse Rate 113 H 112 H 122 H Pulse Rate [ Anterior Bilateral Throughout] Pulse Rate [ From Monitor] Respiratory 27 H 25 H 18 Rate Respiratory Rate [Anterior Bilateral Throughout] Blood Pressure 101/35 101/35 94/36 O2 Sat by Pulse 100 100 100 Oximetry 09/23/16 09/23/16 09/23/16 03:10 03:20 03:30 Temperature Pulse Rate 111 H 106 H 112 H Pulse Rate [ Anterior Bilateral Throughout] Pulse Rate [ From Monitor] Respiratory 24 26 H 26 H Rate Respiratory Rate [Anterior Bilateral Throughout] Blood Pressure 94/36 94/36 95/37 O2 Sat by Pulse 100 100 100 Oximetry 09/23/16 09/23/16 09/23/16 03:40 03:45 03:50 Temperature Pulse Rate 104 H 111 H 99 H Pulse Rate [ Anterior Bilateral Throughout] Pulse Rate [ From Monitor] Respiratory 24 25 H Rate Respiratory Rate [Anterior Bilateral Throughout] Blood Pressure 95/37 75/37 95/37 O2 Sat by Pulse 100 100 100 Oximetry 09/23/16 09/23/16 09/23/16 04:00 04:10 04:20 Temperature Pulse Rate 115 H 111 H 112 H Pulse Rate [ Anterior Bilateral Throughout] Pulse Rate [ From Monitor] Respiratory 19 26 H 26 H Rate Respiratory Rate [Anterior Bilateral Throughout] Blood Pressure 91/39 91/39 91/39 O2 Sat by Pulse 100 100 100 Oximetry 09/23/16 09/23/16 09/23/16 04:30 04:40 04:50 Temperature Pulse Rate 169 H 112 H 107 H Pulse Rate [ Anterior Bilateral Throughout] Pulse Rate [ From Monitor] Respiratory 31 H 27 H 25 H Rate Respiratory Rate [Anterior Bilateral Throughout] Blood Pressure 91/39 71/47 71/47 O2 Sat by Pulse 100 100 100 Oximetry 09/23/16 09/23/16 09/23/16 05:00 05:10 05:20 Temperature Pulse Rate 97 H 115 H 100 H Pulse Rate [ Anterior Bilateral Throughout] Pulse Rate [ From Monitor] Respiratory 26 H 27 H 26 H Rate Respiratory Rate [Anterior Bilateral Throughout] Blood Pressure 76/40 76/40 76/40 O2 Sat by Pulse 100 100 100 Oximetry 09/23/16 09/23/16 09/23/16 05:30 05:40 05:50 Temperature Pulse Rate 113 H 114 H 106 H Pulse Rate [ Anterior Bilateral Throughout] Pulse Rate [ From Monitor] Respiratory 26 H 25 H 26 H Rate Respiratory Rate [Anterior Bilateral Throughout] Blood Pressure 89/41 89/41 89/41 O2 Sat by Pulse 100 99 99 Oximetry 09/23/16 09/23/16 09/23/16 06:00 06:10 06:20 Temperature Pulse Rate 113 H 113 H 99 H Pulse Rate [ Anterior Bilateral Throughout] Pulse Rate [ From Monitor] Respiratory 25 H 26 H 26 H Rate Respiratory Rate [Anterior Bilateral Throughout] Blood Pressure 96/39 96/39 96/39 O2 Sat by Pulse 99 99 99 Oximetry 09/23/16 09/23/16 09/23/16 06:30 06:40 06:50 Temperature Pulse Rate 118 H 109 H 115 H Pulse Rate [ Anterior Bilateral Throughout] Pulse Rate [ From Monitor] Respiratory 25 H 25 H 26 H Rate Respiratory Rate [Anterior Bilateral Throughout] Blood Pressure 88/36 88/36 108/36 O2 Sat by Pulse 99 99 99 Oximetry 09/23/16 09/23/16 09/23/16 07:00 07:10 07:15 Temperature Pulse Rate 111 H 112 H Pulse Rate [ 110 H Anterior Bilateral Throughout] Pulse Rate [ From Monitor] Respiratory 28 H 27 H Rate Respiratory 25 H Rate [Anterior Bilateral Throughout] Blood Pressure 86/35 91/27 O2 Sat by Pulse 100 99 Oximetry 09/23/16 09/23/16 09/23/16 07:20 07:26 07:30 Temperature 99.9 F H Pulse Rate 115 H 111 H Pulse Rate [ Anterior Bilateral Throughout] Pulse Rate [ From Monitor] Respiratory 26 H 25 H Rate Respiratory Rate [Anterior Bilateral Throughout] Blood Pressure 98/28 86/35 O2 Sat by Pulse 99 99 Oximetry 09/23/16 09/23/16 09/23/16 07:40 07:46 07:47 Temperature Pulse Rate 111 H Pulse Rate [ 101 H Anterior Bilateral Throughout] Pulse Rate [ 112 H From Monitor] Respiratory 25 H 28 H Rate Respiratory 25 H Rate [Anterior Bilateral Throughout] Blood Pressure 91/27 O2 Sat by Pulse 99 99 Oximetry 09/23/16 09/23/16 09/23/16 07:49 07:50 08:00 Temperature 99.9 F H Pulse Rate 128 H 112 H Pulse Rate [ Anterior Bilateral Throughout] Pulse Rate [ From Monitor] Respiratory 27 H 25 H Rate Respiratory Rate [Anterior Bilateral Throughout] Blood Pressure 135/54 113/45 O2 Sat by Pulse 99 99 Oximetry 09/23/16 09/23/16 09/23/16 08:10 08:20 08:30 Temperature Pulse Rate 89 107 H 113 H Pulse Rate [ Anterior Bilateral Throughout] Pulse Rate [ From Monitor] Respiratory 26 H 30 H 20 Rate Respiratory Rate [Anterior Bilateral Throughout] Blood Pressure 135/54 92/37 103/38 O2 Sat by Pulse 100 100 100 Oximetry 09/23/16 09/23/16 09/23/16 08:40 08:50 09:00 Temperature Pulse Rate 104 H 113 H 104 H Pulse Rate [ Anterior Bilateral Throughout] Pulse Rate [ From Monitor] Respiratory 25 H 26 H 26 H Rate Respiratory Rate [Anterior Bilateral Throughout] Blood Pressure 92/37 105/34 109/46 O2 Sat by Pulse 100 96 94 Oximetry 09/23/16 09/23/16 09/23/16 09:10 09:20 09:30 Temperature Pulse Rate 95 H 112 H 113 H Pulse Rate [ Anterior Bilateral Throughout] Pulse Rate [ From Monitor] Respiratory 26 H 28 H 25 H Rate Respiratory Rate [Anterior Bilateral Throughout] Blood Pressure 103/38 106/24 103/29 O2 Sat by Pulse 100 100 100 Oximetry 09/23/16 09/23/16 09/23/16 09:40 09:50 10:00 Temperature Pulse Rate 162 H 115 H 103 H Pulse Rate [ Anterior Bilateral Throughout] Pulse Rate [ From Monitor] Respiratory 24 27 H 29 H Rate Respiratory Rate [Anterior Bilateral Throughout] Blood Pressure 103/29 100/59 111/34 O2 Sat by Pulse 100 100 95 Oximetry 09/23/16 09/23/16 09/23/16 10:10 10:20 10:30 Temperature Pulse Rate 108 H 114 H 110 H Pulse Rate [ Anterior Bilateral Throughout] Pulse Rate [ From Monitor] Respiratory 27 H 27 H 26 H Rate Respiratory Rate [Anterior Bilateral Throughout] Blood Pressure 111/34 121/41 112/37 O2 Sat by Pulse 100 100 100 Oximetry 09/23/16 09/23/16 09/23/16 10:40 10:50 11:00 Temperature Pulse Rate 112 H 89 105 H Pulse Rate [ Anterior Bilateral Throughout] Pulse Rate [ From Monitor] Respiratory 26 H 25 H 22 Rate Respiratory Rate [Anterior Bilateral Throughout] Blood Pressure 112/37 111/30 101/44 O2 Sat by Pulse 100 100 100 Oximetry 09/23/16 09/23/16 09/23/16 11:10 11:31 12:00 Temperature 99.3 F Pulse Rate 104 H Pulse Rate [ Anterior Bilateral Throughout] Pulse Rate [ 110 H From Monitor] Respiratory 26 H 26 H Rate Respiratory Rate [Anterior Bilateral Throughout] Blood Pressure 101/44 O2 Sat by Pulse 100 100 Oximetry Constitutional: no acute distress, other (encephalopathic) Eyes: non-icteric ENT: oropharynx moist, other (ETT 22cm RAFAEL) Neck: supple, no lymphadenopathy Effort: mildly labored Ascultation: Bilateral: clear, diminished breath sounds Cardiovascular: regular rate and rhythm Gastrointestinal: hypoactive bowel sounds, soft, non-tender, non-distended Integumentary: normal Extremities: no cyanosis, pulses normal, no ischemia or petechiae, edema (1++) Neurologic: unable to assess, other (lethargic) Psychiatric: other (sedated) CBC and BMP: 09/23/16 04:45 09/23/16 04:45 ABG, PT/INR, D-dimer: ABG POC ABG pH 7.460 (7.35-7.45) H 09/22/16 03:26 POC ABG pCO2 29.9 (35-45) L 09/22/16 03:26 POC ABG pO2 112 (80-105) H 09/22/16 03:26 POC ABG HCO3 21.3 09/22/16 03:26 POC ABG Total CO2 22 09/22/16 03:26 POC ABG O2 Sat 99 09/22/16 03:26 PT/INR, D-dimer PT 13.8 Sec. (12.2-14.9) 09/10/16 05:10 INR 1.07 (0.87-1.13) 09/10/16 05:10 Abnormal lab findings: Abnormal Labs 08/29/16 08/30/16 08/30/16 21:59 00:16 05:39 WBC RBC Hgb Hct MCV MCH MCHC RDW Plt Count Seg Neutrophils % Seg Neuts % (Manual) Nucleated RBC % Seg Neutrophils # Seg Neutrophils # Man PT INR POC ABG pH POC ABG pCO2 POC ABG pO2 Sodium Potassium Chloride Carbon Dioxide BUN Creatinine Glucose POC Glucose 106 H 128 H Lactic Acid Calcium Magnesium Total Bilirubin AST ALT Alkaline Phosphatase Ammonia Troponin T C-Reactive Protein Total Protein Albumin Prealbumin 0.120 L TSH Crossmatch 08/30/16 08/30/16 08/30/16 10:30 10:30 11:12 WBC 11.1 H RBC 3.16 L Hgb 8.7 L Hct 29.9 L MCV MCH MCHC 29 L RDW 25.0 H Plt Count Seg Neutrophils % 78.6 H Seg Neuts % (Manual) Nucleated RBC % Seg Neutrophils # 8.7 H Seg Neutrophils # Man PT INR POC ABG pH POC ABG pCO2 POC ABG pO2 Sodium 135 L Potassium Chloride Carbon Dioxide 20 L BUN Creatinine 1.5 H Glucose 148 H POC Glucose 142 H Lactic Acid Calcium 7.2 L Magnesium Total Bilirubin 1.30 H AST 143 H ALT Alkaline Phosphatase 392 H Ammonia Troponin T C-Reactive Protein Total Protein 6.1 L Albumin 1.2 L Prealbumin TSH Crossmatch 08/30/16 08/30/16 08/30/16 17:41 18:03 18:18 WBC RBC Hgb Hct MCV MCH MCHC RDW Plt Count Seg Neutrophils % Seg Neuts % (Manual) Nucleated RBC % Seg Neutrophils # Seg Neutrophils # Man PT INR POC ABG pH 7.316 L POC ABG pCO2 POC ABG pO2 44 L 59 L Sodium Potassium Chloride Carbon Dioxide BUN Creatinine Glucose POC Glucose 150 H Lactic Acid Calcium Magnesium Total Bilirubin AST ALT Alkaline Phosphatase Ammonia Troponin T C-Reactive Protein Total Protein Albumin Prealbumin TSH Crossmatch 08/30/16 08/30/16 08/31/16 22:20 22:20 00:11 WBC RBC Hgb Hct MCV MCH MCHC RDW Plt Count Seg Neutrophils % Seg Neuts % (Manual) Nucleated RBC % Seg Neutrophils # Seg Neutrophils # Man PT INR POC ABG pH POC ABG pCO2 POC ABG pO2 Sodium Potassium Chloride Carbon Dioxide BUN Creatinine Glucose POC Glucose 133 H Lactic Acid 2.30 H* Calcium Magnesium Total Bilirubin AST ALT Alkaline Phosphatase Ammonia Troponin T C-Reactive Protein 10.20 H Total Protein Albumin Prealbumin TSH Crossmatch 08/31/16 08/31/16 08/31/16 04:20 04:20 04:20 WBC 18.3 H RBC 3.19 L Hgb 8.8 L Hct 30.0 L MCV MCH 27 L MCHC 29 L RDW 23.9 H Plt Count Seg Neutrophils % Seg Neuts % (Manual) Nucleated RBC % Seg Neutrophils # Seg Neutrophils # Man PT 16.8 H INR 1.37 H POC ABG pH POC ABG pCO2 POC ABG pO2 Sodium 136 L Potassium Chloride Carbon Dioxide 19 L BUN Creatinine 1.5 H Glucose 125 H POC Glucose Lactic Acid Calcium 7.0 L Magnesium Total Bilirubin 1.50 H AST 131 H ALT Alkaline Phosphatase 431 H Ammonia Troponin T C-Reactive Protein Total Protein 6.2 L Albumin 1.2 L Prealbumin TSH Crossmatch 08/31/16 08/31/16 08/31/16 04:20 05:22 05:24 WBC RBC Hgb Hct MCV MCH MCHC RDW Plt Count Seg Neutrophils % Seg Neuts % (Manual) Nucleated RBC % Seg Neutrophils # Seg Neutrophils # Man PT INR POC ABG pH POC ABG pCO2 POC ABG pO2 142 H Sodium Potassium Chloride Carbon Dioxide BUN Creatinine Glucose POC Glucose 123 H Lactic Acid Calcium Magnesium Total Bilirubin AST ALT Alkaline Phosphatase Ammonia 70.0 H Troponin T C-Reactive Protein Total Protein Albumin Prealbumin TSH Crossmatch 08/31/16 08/31/16 08/31/16 12:10 15:45 17:38 WBC RBC Hgb Hct MCV MCH MCHC RDW Plt Count Seg Neutrophils % Seg Neuts % (Manual) Nucleated RBC % Seg Neutrophils # Seg Neutrophils # Man PT INR POC ABG pH POC ABG pCO2 POC ABG pO2 Sodium 136 L Potassium Chloride Carbon Dioxide 21 L BUN Creatinine 1.5 H Glucose 160 H POC Glucose 147 H 151 H Lactic Acid Calcium 6.9 L Magnesium Total Bilirubin AST ALT Alkaline Phosphatase Ammonia Troponin T 0.109 H* D C-Reactive Protein Total Protein Albumin Prealbumin TSH Crossmatch 09/01/16 09/01/16 09/01/16 00:09 04:00 04:00 WBC 14.8 H RBC 2.89 L Hgb 7.8 L Hct 27.2 L MCV MCH 27 L MCHC 29 L RDW 24.4 H Plt Count Seg Neutrophils % Seg Neuts % (Manual) Nucleated RBC % Seg Neutrophils # Seg Neutrophils # Man PT 18.2 H INR 1.51 H POC ABG pH POC ABG pCO2 POC ABG pO2 Sodium Potassium Chloride Carbon Dioxide BUN Creatinine Glucose POC Glucose 192 H Lactic Acid Calcium Magnesium Total Bilirubin AST ALT Alkaline Phosphatase Ammonia Troponin T C-Reactive Protein Total Protein Albumin Prealbumin TSH Crossmatch 09/01/16 09/01/16 09/01/16 04:00 05:28 11:28 WBC RBC Hgb Hct MCV MCH MCHC RDW Plt Count Seg Neutrophils % Seg Neuts % (Manual) Nucleated RBC % Seg Neutrophils # Seg Neutrophils # Man PT INR POC ABG pH POC ABG pCO2 POC ABG pO2 Sodium Potassium Chloride Carbon Dioxide 20 L BUN Creatinine 1.6 H Glucose 183 H POC Glucose 189 H 207 H Lactic Acid Calcium 6.9 L Magnesium Total Bilirubin 1.30 H AST 138 H ALT Alkaline Phosphatase 520 H Ammonia Troponin T C-Reactive Protein Total Protein 6.1 L Albumin 1.2 L Prealbumin TSH Crossmatch 09/01/16 09/01/16 09/02/16 16:56 23:49 05:00 WBC RBC Hgb Hct MCV MCH MCHC RDW Plt Count Seg Neutrophils % Seg Neuts % (Manual) Nucleated RBC % Seg Neutrophils # Seg Neutrophils # Man PT 18.0 H INR 1.49 H POC ABG pH POC ABG pCO2 POC ABG pO2 Sodium Potassium Chloride Carbon Dioxide BUN Creatinine Glucose POC Glucose 250 H 307 H Lactic Acid Calcium Magnesium Total Bilirubin AST ALT Alkaline Phosphatase Ammonia Troponin T C-Reactive Protein Total Protein Albumin Prealbumin TSH Crossmatch 09/02/16 09/02/16 09/02/16 05:00 05:00 05:45 WBC 12.3 H RBC 2.57 L Hgb 7.1 L Hct 23.4 L MCV MCH MCHC RDW 23.9 H Plt Count Seg Neutrophils % Seg Neuts % (Manual) 72.0 H Nucleated RBC % 25.0 H Seg Neutrophils # Seg Neutrophils # Cristian 8.9 H PT INR POC ABG pH POC ABG pCO2 POC ABG pO2 Sodium Potassium Chloride Carbon Dioxide BUN Creatinine 1.4 H Glucose 299 H POC Glucose 327 H Lactic Acid Calcium 7.0 L Magnesium Total Bilirubin AST ALT Alkaline Phosphatase Ammonia Troponin T C-Reactive Protein Total Protein Albumin Prealbumin TSH Crossmatch 09/02/16 09/02/16 09/02/16 12:22 17:22 23:24 WBC RBC Hgb Hct MCV MCH MCHC RDW Plt Count Seg Neutrophils % Seg Neuts % (Manual) Nucleated RBC % Seg Neutrophils # Seg Neutrophils # Cristian PT INR POC ABG pH POC ABG pCO2 POC ABG pO2 Sodium Potassium Chloride Carbon Dioxide BUN Creatinine Glucose POC Glucose 310 H 358 H 286 H Lactic Acid Calcium Magnesium Total Bilirubin AST ALT Alkaline Phosphatase Ammonia Troponin T C-Reactive Protein Total Protein Albumin Prealbumin TSH Crossmatch 09/03/16 09/03/16 09/03/16 04:10 04:10 04:10 WBC 11.8 H RBC 2.29 L Hgb 6.1 L Hct 21.0 L MCV MCH 27 L MCHC 29 L RDW 24.1 H Plt Count Seg Neutrophils % Seg Neuts % (Manual) Nucleated RBC % Seg Neutrophils # Seg Neutrophils # Cristian PT 17.6 H INR 1.45 H POC ABG pH POC ABG pCO2 POC ABG pO2 Sodium Potassium Chloride Carbon Dioxide BUN Creatinine 1.4 H Glucose 301 H POC Glucose Lactic Acid Calcium 7.0 L Magnesium Total Bilirubin AST ALT Alkaline Phosphatase Ammonia Troponin T C-Reactive Protein Total Protein Albumin Prealbumin TSH Crossmatch 09/03/16 09/03/16 09/03/16 05:59 11:36 17:42 WBC RBC Hgb Hct MCV MCH MCHC RDW Plt Count Seg Neutrophils % Seg Neuts % (Manual) Nucleated RBC % Seg Neutrophils # Seg Neutrophils # Cristian PT INR POC ABG pH POC ABG pCO2 POC ABG pO2 Sodium Potassium Chloride Carbon Dioxide BUN Creatinine Glucose POC Glucose 351 H 285 H 259 H Lactic Acid Calcium Magnesium Total Bilirubin AST ALT Alkaline Phosphatase Ammonia Troponin T C-Reactive Protein Total Protein Albumin Prealbumin TSH Crossmatch 09/03/16 09/04/16 09/04/16 23:00 04:27 05:36 WBC RBC Hgb Hct MCV MCH MCHC RDW Plt Count Seg Neutrophils % Seg Neuts % (Manual) Nucleated RBC % Seg Neutrophils # Seg Neutrophils # Cristian PT INR POC ABG pH 7.544 H POC ABG pCO2 30.8 L POC ABG pO2 78 L Sodium Potassium Chloride Carbon Dioxide BUN Creatinine Glucose POC Glucose 192 H 228 H Lactic Acid Calcium Magnesium Total Bilirubin AST ALT Alkaline Phosphatase Ammonia Troponin T C-Reactive Protein Total Protein Albumin Prealbumin TSH Crossmatch 09/04/16 09/04/16 09/04/16 06:37 06:37 06:39 WBC 21.0 H RBC 2.22 L Hgb 6.0 L Hct 20.1 L MCV MCH 27 L MCHC RDW 24.3 H Plt Count Seg Neutrophils % Seg Neuts % (Manual) Nucleated RBC % Seg Neutrophils # Seg Neutrophils # Man PT 16.8 H INR 1.37 H POC ABG pH POC ABG pCO2 POC ABG pO2 Sodium Potassium Chloride Carbon Dioxide BUN Creatinine 1.4 H Glucose 201 H POC Glucose Lactic Acid Calcium 7.1 L Magnesium Total Bilirubin AST ALT Alkaline Phosphatase Ammonia Troponin T C-Reactive Protein Total Protein Albumin Prealbumin TSH Crossmatch 09/04/16 09/04/16 09/04/16 12:14 15:47 17:41 WBC RBC Hgb Hct MCV MCH MCHC RDW Plt Count Seg Neutrophils % Seg Neuts % (Manual) Nucleated RBC % Seg Neutrophils # Seg Neutrophils # Man PT INR POC ABG pH POC ABG pCO2 POC ABG pO2 Sodium Potassium Chloride Carbon Dioxide BUN Creatinine Glucose POC Glucose 176 H 218 H Lactic Acid Calcium Magnesium Total Bilirubin AST ALT Alkaline Phosphatase Ammonia Troponin T C-Reactive Protein Total Protein Albumin Prealbumin TSH Crossmatch See Detail 09/04/16 09/04/16 09/05/16 21:59 23:48 04:30 WBC RBC Hgb Hct MCV MCH MCHC RDW Plt Count Seg Neutrophils % Seg Neuts % (Manual) Nucleated RBC % Seg Neutrophils # Seg Neutrophils # Man PT 17.2 H INR 1.41 H POC ABG pH POC ABG pCO2 POC ABG pO2 Sodium Potassium Chloride Carbon Dioxide BUN Creatinine Glucose POC Glucose 170 H 121 H Lactic Acid Calcium Magnesium Total Bilirubin AST ALT Alkaline Phosphatase Ammonia Troponin T C-Reactive Protein Total Protein Albumin Prealbumin TSH Crossmatch 09/05/16 09/05/16 09/05/16 04:30 04:30 05:09 WBC 31.9 H RBC 3.11 L Hgb 8.5 L Hct 28.3 L D MCV MCH 27 L MCHC RDW 21.0 H Plt Count Seg Neutrophils % Seg Neuts % (Manual) Nucleated RBC % Seg Neutrophils # Seg Neutrophils # Man PT INR POC ABG pH 7.226 L POC ABG pCO2 61.6 H POC ABG pO2 68 L Sodium 134 L Potassium 5.5 H Chloride 96.6 L Carbon Dioxide BUN 23 H Creatinine 1.6 H Glucose 116 H POC Glucose Lactic Acid Calcium 7.1 L Magnesium Total Bilirubin AST ALT Alkaline Phosphatase Ammonia Troponin T C-Reactive Protein Total Protein Albumin Prealbumin TSH Crossmatch 09/05/16 09/05/16 09/05/16 05:33 12:08 17:32 WBC RBC Hgb Hct MCV MCH MCHC RDW Plt Count Seg Neutrophils % Seg Neuts % (Manual) Nucleated RBC % Seg Neutrophils # Seg Neutrophils # Man PT INR POC ABG pH POC ABG pCO2 POC ABG pO2 Sodium Potassium Chloride Carbon Dioxide BUN Creatinine Glucose POC Glucose 114 H 147 H 174 H Lactic Acid Calcium Magnesium Total Bilirubin AST ALT Alkaline Phosphatase Ammonia Troponin T C-Reactive Protein Total Protein Albumin Prealbumin TSH Crossmatch 09/06/16 09/06/16 09/06/16 03:30 03:30 03:30 WBC 25.4 H RBC 2.57 L Hgb 7.2 L Hct 22.8 L MCV MCH MCHC RDW 20.9 H Plt Count 138 L Seg Neutrophils % Seg Neuts % (Manual) Nucleated RBC % Seg Neutrophils # Seg Neutrophils # Man PT 16.4 H INR 1.33 H POC ABG pH POC ABG pCO2 POC ABG pO2 Sodium Potassium Chloride Carbon Dioxide BUN 36 H Creatinine 1.9 H Glucose POC Glucose Lactic Acid Calcium 7.2 L Magnesium Total Bilirubin AST ALT Alkaline Phosphatase Ammonia Troponin T C-Reactive Protein Total Protein Albumin Prealbumin TSH Crossmatch 09/06/16 09/06/16 09/06/16 11:07 12:03 14:44 WBC RBC Hgb Hct MCV MCH MCHC RDW Plt Count Seg Neutrophils % Seg Neuts % (Manual) Nucleated RBC % Seg Neutrophils # Seg Neutrophils # Man PT INR POC ABG pH POC ABG pCO2 POC ABG pO2 Sodium Potassium Chloride Carbon Dioxide BUN Creatinine Glucose POC Glucose 61 L 55 L Lactic Acid Calcium Magnesium Total Bilirubin AST ALT Alkaline Phosphatase Ammonia Troponin T 0.080 H C-Reactive Protein Total Protein Albumin Prealbumin TSH Crossmatch 09/06/16 09/06/16 09/07/16 21:05 23:53 03:36 WBC RBC Hgb Hct MCV MCH MCHC RDW Plt Count Seg Neutrophils % Seg Neuts % (Manual) Nucleated RBC % Seg Neutrophils # Seg Neutrophils # Man PT INR POC ABG pH POC ABG pCO2 POC ABG pO2 Sodium Potassium Chloride Carbon Dioxide BUN Creatinine Glucose POC Glucose 140 H 178 H 243 H Lactic Acid Calcium Magnesium Total Bilirubin AST ALT Alkaline Phosphatase Ammonia Troponin T C-Reactive Protein Total Protein Albumin Prealbumin TSH Crossmatch 09/07/16 09/07/16 09/07/16 03:42 03:42 05:04 WBC 17.3 H RBC 2.69 L Hgb 7.6 L Hct 23.8 L MCV MCH MCHC RDW 20.5 H Plt Count 137 L Seg Neutrophils % Seg Neuts % (Manual) Nucleated RBC % Seg Neutrophils # Seg Neutrophils # Man PT INR POC ABG pH POC ABG pCO2 POC ABG pO2 Sodium Potassium 3.3 L Chloride Carbon Dioxide BUN 38 H Creatinine 1.6 H Glucose 201 H POC Glucose 241 H Lactic Acid Calcium 7.4 L Magnesium Total Bilirubin AST ALT Alkaline Phosphatase Ammonia Troponin T C-Reactive Protein Total Protein Albumin Prealbumin TSH Crossmatch 09/07/16 09/07/16 09/07/16 11:46 17:41 23:18 WBC RBC Hgb Hct MCV MCH MCHC RDW Plt Count Seg Neutrophils % Seg Neuts % (Manual) Nucleated RBC % Seg Neutrophils # Seg Neutrophils # Man PT INR POC ABG pH POC ABG pCO2 POC ABG pO2 Sodium Potassium Chloride Carbon Dioxide BUN Creatinine Glucose POC Glucose 313 H 227 H 116 H Lactic Acid Calcium Magnesium Total Bilirubin AST ALT Alkaline Phosphatase Ammonia Troponin T C-Reactive Protein Total Protein Albumin Prealbumin TSH Crossmatch 09/08/16 09/08/16 09/08/16 04:00 04:00 05:15 WBC 18.4 H RBC 2.43 L Hgb 6.9 L Hct 21.5 L MCV MCH MCHC RDW 20.5 H Plt Count 119 L Seg Neutrophils % Seg Neuts % (Manual) Nucleated RBC % Seg Neutrophils # Seg Neutrophils # Man PT INR POC ABG pH 7.458 H POC ABG pCO2 POC ABG pO2 177 H Sodium Potassium 3.5 L Chloride Carbon Dioxide BUN 37 H Creatinine 1.3 H Glucose POC Glucose Lactic Acid Calcium 7.1 L Magnesium Total Bilirubin AST ALT Alkaline Phosphatase Ammonia Troponin T C-Reactive Protein Total Protein Albumin Prealbumin TSH Crossmatch 09/08/16 09/08/16 09/08/16 11:00 15:58 23:16 WBC RBC Hgb Hct MCV MCH MCHC RDW Plt Count Seg Neutrophils % Seg Neuts % (Manual) Nucleated RBC % Seg Neutrophils # Seg Neutrophils # Man PT INR POC ABG pH POC ABG pCO2 POC ABG pO2 113 H Sodium Potassium Chloride Carbon Dioxide BUN Creatinine Glucose POC Glucose 40 L Lactic Acid Calcium Magnesium Total Bilirubin AST ALT Alkaline Phosphatase Ammonia Troponin T C-Reactive Protein Total Protein Albumin Prealbumin TSH Crossmatch See Detail 09/09/16 09/09/16 09/09/16 05:02 12:33 18:10 WBC RBC Hgb Hct MCV MCH MCHC RDW Plt Count Seg Neutrophils % Seg Neuts % (Manual) Nucleated RBC % Seg Neutrophils # Seg Neutrophils # Man PT INR POC ABG pH 7.454 H POC ABG pCO2 POC ABG pO2 75 L Sodium Potassium Chloride Carbon Dioxide BUN Creatinine Glucose POC Glucose 59 L Lactic Acid Calcium Magnesium Total Bilirubin AST ALT Alkaline Phosphatase Ammonia Troponin T C-Reactive Protein Total Protein Albumin Prealbumin TSH 5.220 H Crossmatch 09/09/16 09/09/16 09/09/16 18:10 18:10 18:42 WBC 17.0 H RBC 2.90 L Hgb 8.5 L Hct 26.1 L MCV MCH MCHC RDW 17.9 H Plt Count 126 L Seg Neutrophils % Seg Neuts % (Manual) Nucleated RBC % Seg Neutrophils # Seg Neutrophils # Man PT INR POC ABG pH POC ABG pCO2 POC ABG pO2 Sodium Potassium Chloride Carbon Dioxide BUN 36 H Creatinine Glucose 133 H POC Glucose 148 H Lactic Acid Calcium 6.9 L Magnesium Total Bilirubin AST 253 H ALT 184 H Alkaline Phosphatase 729 H Ammonia Troponin T C-Reactive Protein Total Protein 5.1 L Albumin 1.7 L Prealbumin TSH Crossmatch 09/09/16 09/10/16 09/10/16 23:22 05:10 11:43 WBC RBC Hgb Hct MCV MCH MCHC RDW Plt Count Seg Neutrophils % Seg Neuts % (Manual) Nucleated RBC % Seg Neutrophils # Seg Neutrophils # Man PT INR POC ABG pH POC ABG pCO2 POC ABG pO2 Sodium Potassium Chloride Carbon Dioxide BUN 35 H Creatinine Glucose 240 H POC Glucose 170 H 268 H Lactic Acid Calcium 6.8 L Magnesium Total Bilirubin AST 226 H ALT 171 H Alkaline Phosphatase 710 H Ammonia Troponin T C-Reactive Protein Total Protein 5.2 L Albumin 1.7 L Prealbumin TSH Crossmatch 09/10/16 09/11/16 09/11/16 17:51 01:07 05:00 WBC RBC Hgb Hct MCV MCH MCHC RDW Plt Count Seg Neutrophils % Seg Neuts % (Manual) Nucleated RBC % Seg Neutrophils # Seg Neutrophils # Man PT INR POC ABG pH POC ABG pCO2 POC ABG pO2 Sodium Potassium 2.9 L* Chloride Carbon Dioxide BUN 35 H Creatinine Glucose 274 H POC Glucose 334 H 223 H Lactic Acid Calcium 6.9 L Magnesium Total Bilirubin AST 167 H ALT 145 H Alkaline Phosphatase 631 H Ammonia Troponin T C-Reactive Protein Total Protein 5.1 L Albumin 1.6 L Prealbumin TSH Crossmatch 09/11/16 09/11/16 09/11/16 05:01 12:16 17:12 WBC RBC Hgb Hct MCV MCH MCHC RDW Plt Count Seg Neutrophils % Seg Neuts % (Manual) Nucleated RBC % Seg Neutrophils # Seg Neutrophils # Man PT INR POC ABG pH POC ABG pCO2 POC ABG pO2 Sodium Potassium Chloride Carbon Dioxide BUN Creatinine Glucose POC Glucose 305 H 219 H 171 H Lactic Acid Calcium Magnesium Total Bilirubin AST ALT Alkaline Phosphatase Ammonia Troponin T C-Reactive Protein Total Protein Albumin Prealbumin TSH Crossmatch 09/11/16 09/12/16 09/12/16 23:35 03:33 05:00 WBC 12.9 H RBC 2.81 L Hgb 8.2 L Hct 25.4 L MCV MCH MCHC RDW 17.9 H Plt Count Seg Neutrophils % Seg Neuts % (Manual) Nucleated RBC % Seg Neutrophils # Seg Neutrophils # Man PT INR POC ABG pH POC ABG pCO2 POC ABG pO2 Sodium Potassium Chloride Carbon Dioxide BUN Creatinine Glucose POC Glucose 216 H 183 H Lactic Acid Calcium Magnesium Total Bilirubin AST ALT Alkaline Phosphatase Ammonia Troponin T C-Reactive Protein Total Protein Albumin Prealbumin TSH Crossmatch 09/12/16 09/12/16 09/12/16 05:00 15:15 18:30 WBC RBC Hgb Hct MCV MCH MCHC RDW Plt Count Seg Neutrophils % Seg Neuts % (Manual) Nucleated RBC % Seg Neutrophils # Seg Neutrophils # Man PT INR POC ABG pH POC ABG pCO2 POC ABG pO2 Sodium Potassium 3.0 L 3.4 L Chloride Carbon Dioxide BUN 33 H Creatinine 0.5 L Glucose POC Glucose 215 H Lactic Acid Calcium 7.0 L Magnesium Total Bilirubin AST ALT Alkaline Phosphatase Ammonia Troponin T C-Reactive Protein Total Protein Albumin Prealbumin TSH Crossmatch 09/12/16 09/13/16 09/13/16 23:17 05:50 05:50 WBC RBC 2.93 L Hgb 8.8 L Hct 26.7 L MCV MCH MCHC RDW 18.0 H Plt Count Seg Neutrophils % Seg Neuts % (Manual) Nucleated RBC % Seg Neutrophils # Seg Neutrophils # Man PT INR POC ABG pH POC ABG pCO2 POC ABG pO2 Sodium Potassium 2.6 L* D Chloride Carbon Dioxide BUN 29 H Creatinine 0.5 L Glucose 106 H POC Glucose 155 H Lactic Acid Calcium 7.3 L Magnesium Total Bilirubin AST ALT Alkaline Phosphatase Ammonia Troponin T C-Reactive Protein Total Protein Albumin Prealbumin TSH Crossmatch 09/13/16 09/13/16 09/13/16 05:53 11:43 15:07 WBC RBC Hgb Hct MCV MCH MCHC RDW Plt Count Seg Neutrophils % Seg Neuts % (Manual) Nucleated RBC % Seg Neutrophils # Seg Neutrophils # Man PT INR POC ABG pH POC ABG pCO2 POC ABG pO2 Sodium Potassium 2.8 L* Chloride Carbon Dioxide BUN Creatinine Glucose POC Glucose 119 H 129 H Lactic Acid Calcium Magnesium Total Bilirubin AST ALT Alkaline Phosphatase Ammonia Troponin T C-Reactive Protein Total Protein Albumin Prealbumin TSH Crossmatch 09/13/16 09/13/16 09/14/16 17:39 23:30 05:34 WBC RBC Hgb Hct MCV MCH MCHC RDW Plt Count Seg Neutrophils % Seg Neuts % (Manual) Nucleated RBC % Seg Neutrophils # Seg Neutrophils # Man PT INR POC ABG pH POC ABG pCO2 POC ABG pO2 Sodium Potassium Chloride Carbon Dioxide BUN Creatinine Glucose POC Glucose 144 H 196 H 175 H Lactic Acid Calcium Magnesium Total Bilirubin AST ALT Alkaline Phosphatase Ammonia Troponin T C-Reactive Protein Total Protein Albumin Prealbumin TSH Crossmatch 09/14/16 09/14/16 09/14/16 06:24 06:24 12:41 WBC RBC 2.82 L Hgb 8.4 L Hct 25.7 L MCV MCH MCHC RDW 18.0 H Plt Count Seg Neutrophils % Seg Neuts % (Manual) Nucleated RBC % Seg Neutrophils # Seg Neutrophils # Man PT INR POC ABG pH POC ABG pCO2 POC ABG pO2 Sodium Potassium 2.9 L* Chloride 107.3 H Carbon Dioxide BUN 26 H Creatinine 0.4 L Glucose 169 H POC Glucose 184 H Lactic Acid Calcium 7.5 L Magnesium Total Bilirubin AST ALT Alkaline Phosphatase Ammonia Troponin T C-Reactive Protein Total Protein Albumin Prealbumin TSH Crossmatch 09/14/16 09/14/16 09/14/16 14:50 17:57 23:34 WBC RBC Hgb Hct MCV MCH MCHC RDW Plt Count Seg Neutrophils % Seg Neuts % (Manual) Nucleated RBC % Seg Neutrophils # Seg Neutrophils # Man PT INR POC ABG pH POC ABG pCO2 POC ABG pO2 Sodium Potassium 3.3 L Chloride Carbon Dioxide BUN Creatinine Glucose POC Glucose 191 H 178 H Lactic Acid Calcium Magnesium Total Bilirubin AST ALT Alkaline Phosphatase Ammonia Troponin T C-Reactive Protein Total Protein Albumin Prealbumin TSH Crossmatch 09/15/16 09/15/16 09/15/16 05:02 07:57 07:57 WBC RBC 3.04 L Hgb 9.2 L Hct 28.2 L MCV MCH MCHC RDW 18.8 H Plt Count Seg Neutrophils % Seg Neuts % (Manual) Nucleated RBC % Seg Neutrophils # Seg Neutrophils # Man PT INR POC ABG pH POC ABG pCO2 POC ABG pO2 Sodium Potassium Chloride 107.2 H Carbon Dioxide BUN 26 H Creatinine 0.4 L Glucose 160 H POC Glucose 192 H Lactic Acid Calcium 7.7 L Magnesium Total Bilirubin AST ALT Alkaline Phosphatase Ammonia Troponin T C-Reactive Protein Total Protein Albumin Prealbumin TSH Crossmatch 09/15/16 09/15/16 09/15/16 11:23 17:51 23:45 WBC RBC Hgb Hct MCV MCH MCHC RDW Plt Count Seg Neutrophils % Seg Neuts % (Manual) Nucleated RBC % Seg Neutrophils # Seg Neutrophils # Man PT INR POC ABG pH POC ABG pCO2 POC ABG pO2 Sodium Potassium Chloride Carbon Dioxide BUN Creatinine Glucose POC Glucose 232 H 240 H 251 H Lactic Acid Calcium Magnesium Total Bilirubin AST ALT Alkaline Phosphatase Ammonia Troponin T C-Reactive Protein Total Protein Albumin Prealbumin TSH Crossmatch 09/16/16 09/16/16 09/16/16 04:55 04:55 05:38 WBC RBC 2.84 L Hgb 8.6 L Hct 26.2 L MCV MCH MCHC RDW 18.8 H Plt Count Seg Neutrophils % Seg Neuts % (Manual) Nucleated RBC % Seg Neutrophils # Seg Neutrophils # Man PT INR POC ABG pH POC ABG pCO2 POC ABG pO2 Sodium Potassium 3.1 L Chloride 107.6 H Carbon Dioxide BUN 25 H Creatinine 0.3 L Glucose 134 H POC Glucose 157 H Lactic Acid Calcium 7.6 L Magnesium Total Bilirubin AST ALT Alkaline Phosphatase Ammonia Troponin T C-Reactive Protein Total Protein Albumin Prealbumin TSH Crossmatch 09/16/16 09/16/16 09/16/16 11:53 17:56 23:54 WBC RBC Hgb Hct MCV MCH MCHC RDW Plt Count Seg Neutrophils % Seg Neuts % (Manual) Nucleated RBC % Seg Neutrophils # Seg Neutrophils # Man PT INR POC ABG pH POC ABG pCO2 POC ABG pO2 Sodium Potassium Chloride Carbon Dioxide BUN Creatinine Glucose POC Glucose 137 H 138 H 179 H Lactic Acid Calcium Magnesium Total Bilirubin AST ALT Alkaline Phosphatase Ammonia Troponin T C-Reactive Protein Total Protein Albumin Prealbumin TSH Crossmatch 09/17/16 09/17/16 09/17/16 05:00 05:00 05:28 WBC RBC 2.77 L Hgb 8.2 L Hct 25.9 L MCV MCH MCHC RDW 19.1 H Plt Count Seg Neutrophils % Seg Neuts % (Manual) Nucleated RBC % Seg Neutrophils # Seg Neutrophils # Man PT INR POC ABG pH POC ABG pCO2 POC ABG pO2 Sodium Potassium 3.5 L Chloride 108.4 H Carbon Dioxide BUN 29 H Creatinine 0.3 L Glucose 117 H POC Glucose 142 H Lactic Acid Calcium 7.4 L Magnesium Total Bilirubin AST ALT Alkaline Phosphatase Ammonia Troponin T C-Reactive Protein Total Protein Albumin Prealbumin TSH Crossmatch 09/17/16 09/17/16 09/18/16 18:07 23:31 06:29 WBC RBC Hgb Hct MCV MCH MCHC RDW Plt Count Seg Neutrophils % Seg Neuts % (Manual) Nucleated RBC % Seg Neutrophils # Seg Neutrophils # Man PT INR POC ABG pH POC ABG pCO2 POC ABG pO2 Sodium Potassium Chloride Carbon Dioxide BUN Creatinine Glucose POC Glucose 173 H 240 H 282 H Lactic Acid Calcium Magnesium Total Bilirubin AST ALT Alkaline Phosphatase Ammonia Troponin T C-Reactive Protein Total Protein Albumin Prealbumin TSH Crossmatch 09/18/16 09/18/16 09/18/16 06:30 12:21 17:55 WBC RBC Hgb Hct MCV MCH MCHC RDW Plt Count Seg Neutrophils % Seg Neuts % (Manual) Nucleated RBC % Seg Neutrophils # Seg Neutrophils # Man PT INR POC ABG pH POC ABG pCO2 POC ABG pO2 Sodium 148 H Potassium Chloride 110.7 H Carbon Dioxide BUN 30 H Creatinine 0.4 L Glucose 249 H POC Glucose 248 H 255 H Lactic Acid Calcium 7.4 L Magnesium 1.60 L Total Bilirubin AST ALT Alkaline Phosphatase Ammonia Troponin T C-Reactive Protein Total Protein Albumin Prealbumin TSH Crossmatch 09/19/16 09/19/16 09/19/16 00:09 04:45 05:11 WBC RBC Hgb Hct MCV MCH MCHC RDW Plt Count Seg Neutrophils % Seg Neuts % (Manual) Nucleated RBC % Seg Neutrophils # Seg Neutrophils # Man PT INR POC ABG pH POC ABG pCO2 POC ABG pO2 Sodium 146 H Potassium Chloride 110.8 H Carbon Dioxide BUN 34 H Creatinine 0.4 L Glucose 278 H POC Glucose 324 H 278 H Lactic Acid Calcium 7.3 L Magnesium Total Bilirubin AST ALT Alkaline Phosphatase Ammonia Troponin T C-Reactive Protein Total Protein Albumin Prealbumin TSH Crossmatch 09/19/16 09/19/16 09/19/16 11:12 12:09 17:10 WBC RBC Hgb Hct MCV MCH MCHC RDW Plt Count Seg Neutrophils % Seg Neuts % (Manual) Nucleated RBC % Seg Neutrophils # Seg Neutrophils # Man PT INR POC ABG pH POC ABG pCO2 POC ABG pO2 Sodium Potassium Chloride Carbon Dioxide BUN Creatinine Glucose POC Glucose 306 H 225 H 329 H Lactic Acid Calcium Magnesium Total Bilirubin AST ALT Alkaline Phosphatase Ammonia Troponin T C-Reactive Protein Total Protein Albumin Prealbumin TSH Crossmatch 09/19/16 09/20/16 09/20/16 23:34 04:52 05:00 WBC RBC Hgb Hct MCV MCH MCHC RDW Plt Count Seg Neutrophils % Seg Neuts % (Manual) Nucleated RBC % Seg Neutrophils # Seg Neutrophils # Man PT INR POC ABG pH POC ABG pCO2 POC ABG pO2 Sodium Potassium Chloride 108.6 H Carbon Dioxide BUN 35 H Creatinine 0.4 L Glucose 370 H POC Glucose 376 H 374 H Lactic Acid Calcium 7.3 L Magnesium Total Bilirubin AST ALT Alkaline Phosphatase Ammonia Troponin T C-Reactive Protein Total Protein Albumin Prealbumin TSH Crossmatch 09/20/16 09/20/16 09/20/16 11:18 17:39 23:49 WBC RBC Hgb Hct MCV MCH MCHC RDW Plt Count Seg Neutrophils % Seg Neuts % (Manual) Nucleated RBC % Seg Neutrophils # Seg Neutrophils # Man PT INR POC ABG pH POC ABG pCO2 POC ABG pO2 Sodium Potassium Chloride Carbon Dioxide BUN Creatinine Glucose POC Glucose 342 H 416 H 440 H Lactic Acid Calcium Magnesium Total Bilirubin AST ALT Alkaline Phosphatase Ammonia Troponin T C-Reactive Protein Total Protein Albumin Prealbumin TSH Crossmatch 09/21/16 09/21/16 09/21/16 04:58 05:15 05:15 WBC RBC 1.48 L Hgb 4.6 L* Hct 14.9 L* MCV 100 H MCH MCHC RDW 25.4 H Plt Count Seg Neutrophils % Seg Neuts % (Manual) Nucleated RBC % Seg Neutrophils # Seg Neutrophils # Man PT INR POC ABG pH POC ABG pCO2 POC ABG pO2 Sodium Potassium Chloride 107.5 H Carbon Dioxide 20 L BUN 45 H Creatinine 0.6 L Glucose 490 H POC Glucose > 500 H Lactic Acid Calcium 7.0 L Magnesium Total Bilirubin AST ALT Alkaline Phosphatase Ammonia Troponin T C-Reactive Protein Total Protein Albumin Prealbumin TSH Crossmatch 09/21/16 09/21/16 09/21/16 08:20 09:17 12:09 WBC RBC Hgb Hct MCV MCH MCHC RDW Plt Count Seg Neutrophils % Seg Neuts % (Manual) Nucleated RBC % Seg Neutrophils # Seg Neutrophils # Man PT INR POC ABG pH 7.464 H POC ABG pCO2 29.3 L POC ABG pO2 198 H Sodium Potassium Chloride Carbon Dioxide BUN Creatinine Glucose POC Glucose 248 H Lactic Acid Calcium Magnesium Total Bilirubin AST ALT Alkaline Phosphatase Ammonia Troponin T C-Reactive Protein Total Protein Albumin Prealbumin TSH Crossmatch See Detail 09/21/16 09/21/16 09/21/16 15:21 17:36 18:49 WBC RBC Hgb Hct MCV MCH MCHC RDW Plt Count Seg Neutrophils % Seg Neuts % (Manual) Nucleated RBC % Seg Neutrophils # Seg Neutrophils # Man PT INR POC ABG pH POC ABG pCO2 POC ABG pO2 Sodium Potassium Chloride Carbon Dioxide BUN Creatinine Glucose POC Glucose 403 H 437 H 482 H Lactic Acid Calcium Magnesium Total Bilirubin AST ALT Alkaline Phosphatase Ammonia Troponin T C-Reactive Protein Total Protein Albumin Prealbumin TSH Crossmatch 09/21/16 09/22/16 09/22/16 23:29 00:00 01:29 WBC 14.8 H RBC 2.94 L Hgb 9.1 L D Hct 27.5 L D MCV MCH MCHC RDW 16.7 H Plt Count Seg Neutrophils % Seg Neuts % (Manual) Nucleated RBC % Seg Neutrophils # Seg Neutrophils # Man PT INR POC ABG pH POC ABG pCO2 POC ABG pO2 Sodium Potassium Chloride Carbon Dioxide BUN Creatinine Glucose POC Glucose 311 H 288 H Lactic Acid Calcium Magnesium Total Bilirubin AST ALT Alkaline Phosphatase Ammonia Troponin T C-Reactive Protein Total Protein Albumin Prealbumin TSH Crossmatch 09/22/16 09/22/16 09/22/16 02:29 03:12 03:26 WBC RBC Hgb Hct MCV MCH MCHC RDW Plt Count Seg Neutrophils % Seg Neuts % (Manual) Nucleated RBC % Seg Neutrophils # Seg Neutrophils # Man PT INR POC ABG pH 7.460 H POC ABG pCO2 29.9 L POC ABG pO2 112 H Sodium Potassium Chloride Carbon Dioxide BUN Creatinine Glucose POC Glucose 261 H 239 H Lactic Acid Calcium Magnesium Total Bilirubin AST ALT Alkaline Phosphatase Ammonia Troponin T C-Reactive Protein Total Protein Albumin Prealbumin TSH Crossmatch 09/22/16 09/22/16 09/22/16 05:35 06:40 06:40 WBC 13.5 H RBC 3.18 L Hgb 9.5 L Hct 28.8 L MCV MCH MCHC RDW 16.2 H Plt Count Seg Neutrophils % Seg Neuts % (Manual) Nucleated RBC % Seg Neutrophils # Seg Neutrophils # Man PT INR POC ABG pH POC ABG pCO2 POC ABG pO2 Sodium 147 H Potassium 3.2 L D Chloride 112.3 H Carbon Dioxide BUN 49 H Creatinine 0.6 L Glucose 102 H POC Glucose 181 H Lactic Acid Calcium 7.5 L Magnesium Total Bilirubin AST ALT Alkaline Phosphatase Ammonia Troponin T C-Reactive Protein Total Protein Albumin Prealbumin TSH Crossmatch 09/22/16 09/22/16 09/22/16 07:16 18:03 20:05 WBC RBC Hgb Hct MCV MCH MCHC RDW Plt Count Seg Neutrophils % Seg Neuts % (Manual) Nucleated RBC % Seg Neutrophils # Seg Neutrophils # Man PT INR POC ABG pH POC ABG pCO2 POC ABG pO2 Sodium Potassium Chloride Carbon Dioxide BUN Creatinine Glucose POC Glucose 152 H 115 H 107 H Lactic Acid Calcium Magnesium Total Bilirubin AST ALT Alkaline Phosphatase Ammonia Troponin T C-Reactive Protein Total Protein Albumin Prealbumin TSH Crossmatch 09/22/16 09/22/16 09/23/16 21:00 23:55 02:02 WBC 13.8 H RBC 3.04 L Hgb 9.2 L Hct 28.0 L MCV MCH MCHC RDW 16.2 H Plt Count Seg Neutrophils % Seg Neuts % (Manual) Nucleated RBC % Seg Neutrophils # Seg Neutrophils # Man PT INR POC ABG pH POC ABG pCO2 POC ABG pO2 Sodium Potassium Chloride Carbon Dioxide BUN Creatinine Glucose POC Glucose 133 H 110 H Lactic Acid Calcium Magnesium Total Bilirubin AST ALT Alkaline Phosphatase Ammonia Troponin T C-Reactive Protein Total Protein Albumin Prealbumin TSH Crossmatch 09/23/16 09/23/16 09/23/16 04:45 04:45 05:36 WBC 13.6 H RBC 2.86 L Hgb 8.6 L Hct 26.4 L MCV MCH MCHC RDW 17.1 H Plt Count Seg Neutrophils % Seg Neuts % (Manual) Nucleated RBC % Seg Neutrophils # Seg Neutrophils # Man PT INR POC ABG pH POC ABG pCO2 POC ABG pO2 Sodium Potassium Chloride 109.2 H Carbon Dioxide 21 L BUN 43 H Creatinine 0.5 L Glucose 152 H POC Glucose 133 H Lactic Acid Calcium 7.7 L Magnesium Total Bilirubin AST ALT Alkaline Phosphatase Ammonia Troponin T C-Reactive Protein Total Protein Albumin Prealbumin TSH Crossmatch 09/23/16 07:42 WBC RBC Hgb Hct MCV MCH MCHC RDW Plt Count Seg Neutrophils % Seg Neuts % (Manual) Nucleated RBC % Seg Neutrophils # Seg Neutrophils # Man PT INR POC ABG pH POC ABG pCO2 POC ABG pO2 Sodium Potassium Chloride Carbon Dioxide BUN Creatinine Glucose POC Glucose 175 H Lactic Acid Calcium Magnesium Total Bilirubin AST ALT Alkaline Phosphatase Ammonia Troponin T C-Reactive Protein Total Protein Albumin Prealbumin TSH Crossmatch Allied health notes reviewed: RT
[2016-09-23] MEDS: LEVOPHED DRIP 4 MG/NS 250 ML 4 MG/250 ML BAG IV SCH (12:10)
--- NOTE | 2016-09-23 13:51 | Progress Note ---
Assessment and Plan Patient is a 61-year-old morbid obese woman with a history of congestive heart failure, severe protein calorie malnutrition (bilateral sikhism muscle severe wasting, hypothenar muscle wasting) with BMI of 81.6, functional quadriplegia, type 2 diabetes mellitus, hypertension, multiple skin breakdown between legs and thighs who presented to the hospital via EMS with AMS. 2D echocardiogram with ejection fraction of 50-55%. During the past admission, patient was recommended for placement but refused. On presentation to ED, patient was felt to be unable to maintain her airways and intubated the ER since 08/29/16. 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, poa: supportative care, Unable to get CT head due to weight issues -Acute on chronic diastolic congestive heart failure: treated with diuresis -Acute on chronic respiratory failure, intubated > 96 hours -Septic shock off IV solucorticef and midodrine -Severe anemia s/p blood transfusion: monitor cbc closely altered -Paroxysmal atrial fibrillation -Non-ST elevated NV type 2: Conservative management -Acute on chronic kidney disease III, likely secondary to vasomotor nephropathy- POA -Transaminitis-elevated alkaline phosphatase and AST: continue to monitor -Severe protein calorie malnutrition albumin 1.2 -Morbid obesity BMI 81.6 -Mulitple PRESSURE ULCERS-POA: consulted wound care -uncontrolled dm: on ssi, s/p insulin drip -Acute anemia with drop in HCT s/p 5 units of PRBC transfused so far. Ordered 2 more units. -Dvt prophylaxis: sq lovenox per [facility] Disposition: LTAC declined, case management is working on plan DNR 09/04/16 , boyfriend, Tad agreed to blood transfusion, hgb is 6.0 will transfuse 2 units==>h/h steady, continue to monitor 09/05/16: Overnight was very eventful. New issue: Status epilepticus most likely due to anoxic brain injury, poa. She is back on 8 mcg of Levophed, which had weaned off up to the point of seizure activity Patient had status epilepticus before receiving blood transfusions. She was given multiple doses of Ativan and was still having breakthrough seizures. She was given phenobarbital and Dilantin but still having seizures. I started propofol drip which is helping. She still on IV Ativan drip also. Difficult family dynamics: Her son (she has multiple children), Srikanth and sister Leanne were at her bedside and well as her boyfriend who is not her legal , which he told me. They are upset because they didn't know patient was in the hospital. It appears the gentleman in the room is her boyfriend and not her legal He also did not notify the family the patient was here. That gentleman who is her boyfriend dropped the patient's wallet and our security called the number inside the wallet which was patient's mother's number and this is how the family found out that patient was in the hospital. I was told by RN, that patient has no , patient has 7 siblings and they are estranged from mother. No legal POA but sister Leanne is active in sister's life. Her boyfriend name is Tad Vieyra and he has consistently been at her beside, holding her hand and being supportive. 09/10/16 (resumed care): Trying to get to LTAC, still on 2 mcg of Levaphed but not sedated==>?Significant anoxic brain injury most likely poa, Ethic committee consulted because some family members want to withdraw. 09/11/16, Trach aspirated GNR, continue abx pending identification, off levaphed today. Trying to get to LTAC, they can trach her there. Only [facility] takes her insurance 09/12/16 Trach aspirate still pending, new issue of hypothermia, responded to [employer], tube feeding low rate due to high residuals, abd xray unremarkable. Potassium replaced. No restraints needs, no sedation needed, poor prognosis 09/15/16(resumed care): new issue seizure, gave 1mg iv ativan x 1. Awaiting to go to [facility], they want to trach and peg when she gets there. 09/16-11/26: cpm, no new seizures. 09/18/16: [facility] did not accept patient, so trach and peg here. Patient has been intubated since 08/29/16. 09/19/16 no new issue, trying to wean 09/20/16: d/w boyfriend at bedside. He believes she is having purposefully spontaneous movements, like blinking. Heart rate went up to 150s but spontaneously went down without any medications given. 09/21/16: Overnight she became hypotensive, Levophed drip restarted at 12mcg, hgb found to be 4.6, blood transfusions ordered, hyperglycemic worse, so Levemir increased and then placed to insulin drip, She has apneic breathing on vent, POOR sign. 09/22/16: no new issue, off levophed and insulin drip this am. Cont current supportive care 09/23/16: BP at high 90s, still off levophed, but may need to restart if BP continue to be low. On NG suction. GI advised medical mx for anemia, no plan for endoscopy now. discussed with CC attending, plan for trach and PEG soon, She is on protonix drip. H and H remained stable. Subjective Date of service: 09/23/16 Principal diagnosis: Acute Hypoxemic Hypercapnic Resp Failure; Severe Sepsis Interval history: Patient seen and examined. Follow up on respiratory failure. Patient still intubated. Boy friend at bedside. She appears more awake today but still unresponsive. Objective - Exam Narrative Exam: GEN: Critically ill, morbid obese BMI 81.6, intubated, HEENT: Pupils are pinpoint and reactive, ET tube in place NECK: SUPPLE, NO THYROMEGALY, NO JVD, NO LAD CVS: regular irregular NORMAL S1S2 LUNGS/CHEST: TA B, NORMAL CHEST EXPANSION B, GOOD AIR ENTRY B ABD: SOFT, NONDISTENDED GBS, NO REBOUND OR GUARDING NEURO: doesn't follow commands PSY: awake with eyes open Extremities: 3+ edema - Constitutional Vitals: Vital Signs - 12hr 09/23/16 09/23/16 09/23/16 02:00 02:10 02:20 Temperature Pulse Rate 116 H 113 H 109 H Pulse Rate [ 107 H 101 H Anterior Bilateral Throughout] Pulse Rate [ From Monitor] Respiratory 26 H 25 H 28 H Rate Respiratory 24 22 Rate [Anterior Bilateral Throughout] Blood Pressure 88/37 114/34 114/34 O2 Sat by Pulse 100 100 100 Oximetry 09/23/16 09/23/16 09/23/16 02:30 02:40 02:50 Temperature Pulse Rate 111 H 113 H 112 H Pulse Rate [ Anterior Bilateral Throughout] Pulse Rate [ From Monitor] Respiratory 27 H 27 H 25 H Rate Respiratory Rate [Anterior Bilateral Throughout] Blood Pressure 101/35 101/35 101/35 O2 Sat by Pulse 100 100 100 Oximetry 09/23/16 09/23/16 09/23/16 03:00 03:10 03:20 Temperature Pulse Rate 122 H 111 H 106 H Pulse Rate [ Anterior Bilateral Throughout] Pulse Rate [ From Monitor] Respiratory 18 24 26 H Rate Respiratory Rate [Anterior Bilateral Throughout] Blood Pressure 94/36 94/36 94/36 O2 Sat by Pulse 100 100 100 Oximetry 09/23/16 09/23/16 09/23/16 03:30 03:40 03:45 Temperature Pulse Rate 112 H 104 H 111 H Pulse Rate [ Anterior Bilateral Throughout] Pulse Rate [ From Monitor] Respiratory 26 H 24 Rate Respiratory Rate [Anterior Bilateral Throughout] Blood Pressure 95/37 95/37 75/37 O2 Sat by Pulse 100 100 100 Oximetry 09/23/16 09/23/16 09/23/16 03:50 04:00 04:10 Temperature Pulse Rate 99 H 115 H 111 H Pulse Rate [ Anterior Bilateral Throughout] Pulse Rate [ From Monitor] Respiratory 25 H 19 26 H Rate Respiratory Rate [Anterior Bilateral Throughout] Blood Pressure 95/37 91/39 91/39 O2 Sat by Pulse 100 100 100 Oximetry 09/23/16 09/23/16 09/23/16 04:20 04:30 04:40 Temperature Pulse Rate 112 H 169 H 112 H Pulse Rate [ Anterior Bilateral Throughout] Pulse Rate [ From Monitor] Respiratory 26 H 31 H 27 H Rate Respiratory Rate [Anterior Bilateral Throughout] Blood Pressure 91/39 91/39 71/47 O2 Sat by Pulse 100 100 100 Oximetry 09/23/16 09/23/16 09/23/16 04:50 05:00 05:10 Temperature Pulse Rate 107 H 97 H 115 H Pulse Rate [ Anterior Bilateral Throughout] Pulse Rate [ From Monitor] Respiratory 25 H 26 H 27 H Rate Respiratory Rate [Anterior Bilateral Throughout] Blood Pressure 71/47 76/40 76/40 O2 Sat by Pulse 100 100 100 Oximetry 09/23/16 09/23/16 09/23/16 05:20 05:30 05:40 Temperature Pulse Rate 100 H 113 H 114 H Pulse Rate [ Anterior Bilateral Throughout] Pulse Rate [ From Monitor] Respiratory 26 H 26 H 25 H Rate Respiratory Rate [Anterior Bilateral Throughout] Blood Pressure 76/40 89/41 89/41 O2 Sat by Pulse 100 100 99 Oximetry 09/23/16 09/23/1609/23/17 05:50 06:00 06:10 Temperature Pulse Rate 106 H 113 H 113 H Pulse Rate [ Anterior Bilateral Throughout] Pulse Rate [ From Monitor] Respiratory 26 H 25 H 26 H Rate Respiratory Rate [Anterior Bilateral Throughout] Blood Pressure 89/41 96/39 96/39 O2 Sat by Pulse 99 99 99 Oximetry 09/23/16 09/23/16 09/23/16 06:20 06:30 06:40 Temperature Pulse Rate 99 H 118 H 109 H Pulse Rate [ Anterior Bilateral Throughout] Pulse Rate [ From Monitor] Respiratory 26 H 25 H 25 H Rate Respiratory Rate [Anterior Bilateral Throughout] Blood Pressure 96/39 88/36 88/36 O2 Sat by Pulse 99 99 99 Oximetry 09/23/16 09/23/16 09/23/16 06:50 07:00 07:10 Temperature Pulse Rate 115 H 111 H 112 H Pulse Rate [ Anterior Bilateral Throughout] Pulse Rate [ From Monitor] Respiratory 26 H 28 H 27 H Rate Respiratory Rate [Anterior Bilateral Throughout] Blood Pressure 108/36 86/35 91/27 O2 Sat by Pulse 99 100 99 Oximetry 09/23/16 09/23/16 09/23/16 07:15 07:20 07:26 Temperature 99.9 F H Pulse Rate 115 H Pulse Rate [ 110 H Anterior Bilateral Throughout] Pulse Rate [ From Monitor] Respiratory 26 H Rate Respiratory 25 H Rate [Anterior Bilateral Throughout] Blood Pressure 98/28 O2 Sat by Pulse 99 Oximetry 09/23/16 09/23/16 09/23/16 07:30 07:40 07:46 Temperature Pulse Rate 111 H 111 H Pulse Rate [ Anterior Bilateral Throughout] Pulse Rate [ 112 H From Monitor] Respiratory 25 H 25 H 28 H Rate Respiratory Rate [Anterior Bilateral Throughout] Blood Pressure 86/35 91/27 O2 Sat by Pulse 99 99 99 Oximetry 09/23/16 09/23/16 09/23/16 07:47 07:49 07:50 Temperature 99.9 F H Pulse Rate 128 H Pulse Rate [ 101 H Anterior Bilateral Throughout] Pulse Rate [ From Monitor] Respiratory 27 H Rate Respiratory 25 H Rate [Anterior Bilateral Throughout] Blood Pressure 135/54 O2 Sat by Pulse 99 Oximetry 09/23/16 09/23/16 09/23/16 08:00 08:10 08:20 Temperature Pulse Rate 112 H 89 107 H Pulse Rate [ Anterior Bilateral Throughout] Pulse Rate [ From Monitor] Respiratory 25 H 26 H 30 H Rate Respiratory Rate [Anterior Bilateral Throughout] Blood Pressure 113/45 135/54 92/37 O2 Sat by Pulse 99 100 100 Oximetry 09/23/16 09/23/16 09/23/16 08:30 08:40 08:50 Temperature Pulse Rate 113 H 104 H 113 H Pulse Rate [ Anterior Bilateral Throughout] Pulse Rate [ From Monitor] Respiratory 20 25 H 26 H Rate Respiratory Rate [Anterior Bilateral Throughout] Blood Pressure 103/38 92/37 105/34 O2 Sat by Pulse 100 100 96 Oximetry 09/23/16 09/23/16 09/23/16 09:00 09:10 09:20 Temperature Pulse Rate 104 H 95 H 112 H Pulse Rate [ Anterior Bilateral Throughout] Pulse Rate [ From Monitor] Respiratory 26 H 26 H 28 H Rate Respiratory Rate [Anterior Bilateral Throughout] Blood Pressure 109/46 103/38 106/24 O2 Sat by Pulse 94 100 100 Oximetry 09/23/16 09/23/16 09/23/16 09:30 09:40 09:50 Temperature Pulse Rate 113 H 162 H 115 H Pulse Rate [ Anterior Bilateral Throughout] Pulse Rate [ From Monitor] Respiratory 25 H 24 27 H Rate Respiratory Rate [Anterior Bilateral Throughout] Blood Pressure 103/29 103/29 100/59 O2 Sat by Pulse 100 100 100 Oximetry 09/23/16 09/23/16 09/23/16 10:00 10:10 10:20 Temperature Pulse Rate 103 H 108 H 114 H Pulse Rate [ Anterior Bilateral Throughout] Pulse Rate [ From Monitor] Respiratory 29 H 27 H 27 H Rate Respiratory Rate [Anterior Bilateral Throughout] Blood Pressure 111/34 111/34 121/41 O2 Sat by Pulse 95 100 100 Oximetry 09/23/16 09/23/16 09/23/16 10:30 10:40 10:50 Temperature Pulse Rate 110 H 112 H 89 Pulse Rate [ Anterior Bilateral Throughout] Pulse Rate [ From Monitor] Respiratory 26 H 26 H 25 H Rate Respiratory Rate [Anterior Bilateral Throughout] Blood Pressure 112/37 112/37 111/30 O2 Sat by Pulse 100 100 100 Oximetry 09/23/16 09/23/16 09/23/16 11:00 11:10 11:20 Temperature Pulse Rate 105 H 104 H 113 H Pulse Rate [ Anterior Bilateral Throughout] Pulse Rate [ From Monitor] Respiratory 22 26 H 27 H Rate Respiratory Rate [Anterior Bilateral Throughout] Blood Pressure 101/44 101/44 95/57 O2 Sat by Pulse 100 100 100 Oximetry 09/23/16 09/23/16 09/23/16 11:30 11:31 11:40 Temperature Pulse Rate 121 H 87 Pulse Rate [ Anterior Bilateral Throughout] Pulse Rate [ 110 H From Monitor] Respiratory 29 H 26 H 26 H Rate Respiratory Rate [Anterior Bilateral Throughout] Blood Pressure 95/57 117/94 O2 Sat by Pulse 97 100 100 Oximetry 09/23/16 09/23/16 09/23/16 11:50 12:00 12:10 Temperature 99.3 F Pulse Rate 103 H 109 H 113 H Pulse Rate [ Anterior Bilateral Throughout] Pulse Rate [ From Monitor] Respiratory 29 H 22 25 H Rate Respiratory Rate [Anterior Bilateral Throughout] Blood Pressure 94/33 118/50 108/63 O2 Sat by Pulse 100 100 100 Oximetry 09/23/16 09/23/16 09/23/16 12:20 12:30 12:40 Temperature Pulse Rate 110 H 98 H 98 H Pulse Rate [ Anterior Bilateral Throughout] Pulse Rate [ From Monitor] Respiratory 26 H 26 H 27 H Rate Respiratory Rate [Anterior Bilateral Throughout] Blood Pressure 100/27 127/60 127/60 O2 Sat by Pulse 100 100 71 L Oximetry 09/23/16 09/23/16 09/23/16 12:50 13:00 13:10 Temperature Pulse Rate 108 H 102 H 113 H Pulse Rate [ Anterior Bilateral Throughout] Pulse Rate [ From Monitor] Respiratory 26 H 26 H 25 H Rate Respiratory Rate [Anterior Bilateral Throughout] Blood Pressure 127/37 121/38 121/38 O2 Sat by Pulse 81 L 100 97 Oximetry 09/23/16 13:20 Temperature Pulse Rate 111 H Pulse Rate [ Anterior Bilateral Throughout] Pulse Rate [ From Monitor] Respiratory 25 H Rate Respiratory Rate [Anterior Bilateral Throughout] Blood Pressure 119/57 O2 Sat by Pulse 88 Oximetry - Labs CBC & Chem 7: 09/24/16 05:00 09/24/16 05:00 Labs: Abnormal lab results 09/22/16 09/22/16 09/22/16 Range/Units 18:03 20:05 21:00 WBC 13.8 H (4.5-11.0) K/mm3 RBC 3.04 L (3.65-5.03) M/mm3 Hgb 9.2 L (10.1-14.3) gm/dl Hct 28.0 L (30.3-42.9) % RDW 16.2 H (13.2-15.2) % Chloride (98-107) mmol/L Carbon Dioxide (22-30) mmol/L BUN (7-17) mg/dL Creatinine (0.7-1.2) mg/dL Glucose (65-100) mg/dL POC Glucose 115 H 107 H (70-105) Calcium (8.4-10.2) mg/dL 09/22/16 09/23/16 09/23/16 Range/Units 23:55 02:02 04:45 WBC 13.6 H (4.5-11.0) K/mm3 RBC 2.86 L (3.65-5.03) M/mm3 Hgb 8.6 L (10.1-14.3) gm/dl Hct 26.4 L (30.3-42.9) % RDW 17.1 H (13.2-15.2) % Chloride (98-107) mmol/L Carbon Dioxide (22-30) mmol/L BUN (7-17) mg/dL Creatinine (0.7-1.2) mg/dL Glucose (65-100) mg/dL POC Glucose 133 H 110 H (70-105) Calcium (8.4-10.2) mg/dL 09/23/16 09/23/16 09/23/16 Range/Units 04:45 05:36 07:42 WBC (4.5-11.0) K/mm3 RBC (3.65-5.03) M/mm3 Hgb (10.1-14.3) gm/dl Hct (30.3-42.9) % RDW (13.2-15.2) % Chloride 109.2 H (98-107) mmol/L Carbon Dioxide 21 L (22-30) mmol/L BUN 43 H (7-17) mg/dL Creatinine 0.5 L (0.7-1.2) mg/dL Glucose 152 H (65-100) mg/dL POC Glucose 133 H 175 H (70-105) Calcium 7.7 L (8.4-10.2) mg/dL 09/23/16 Range/Units 11:55 WBC (4.5-11.0) K/mm3 RBC (3.65-5.03) M/mm3 Hgb (10.1-14.3) gm/dl Hct (30.3-42.9) % RDW (13.2-15.2) % Chloride (98-107) mmol/L Carbon Dioxide (22-30) mmol/L BUN (7-17) mg/dL Creatinine (0.7-1.2) mg/dL Glucose (65-100) mg/dL POC Glucose 170 H (70-105) Calcium (8.4-10.2) mg/dL
[2016-09-23] MEDS ORDERED: NACL 0.9% 1000 ML 1,000 ML IV SCH (14:00)
[2016-09-23] MEDS: NOVOLOG SUB-Q SCH ×4 (14:02→23:05)
[2016-09-23] MEDS: LEVEMIR SUB-Q SCH (15:00)
--- NOTE | 2016-09-23 16:43 | Progress Note ---
Assessment and Plan resp failure with prolonged vent dependence. Will plan for sx once pt stable and off pressors. Continue supportive care. Will follow. Subjective Date of service: 09/23/16 Patient Reports: Positive: other (no further bleeding but pt back on levo at 2 mcg. Family wants trache and peg per CM and are not considering withdrawal at this time.) Objective Vital Signs - 12hr 09/23/16 09/23/16 09/23/16 04:40 04:50 05:00 Temperature Pulse Rate 112 H 107 H 97 H Pulse Rate [ Anterior Bilateral Throughout] Pulse Rate [ From Monitor] Respiratory 27 H 25 H 26 H Rate Respiratory Rate [Anterior Bilateral Throughout] Blood Pressure 71/47 71/47 76/40 O2 Sat by Pulse 100 100 100 Oximetry 09/23/16 09/23/16 09/23/16 05:10 05:20 05:30 Temperature Pulse Rate 115 H 100 H 113 H Pulse Rate [ Anterior Bilateral Throughout] Pulse Rate [ From Monitor] Respiratory 27 H 26 H 26 H Rate Respiratory Rate [Anterior Bilateral Throughout] Blood Pressure 76/40 76/40 89/41 O2 Sat by Pulse 100 100 100 Oximetry 09/23/16 09/23/16 09/23/16 05:40 05:50 06:00 Temperature Pulse Rate 114 H 106 H 113 H Pulse Rate [ Anterior Bilateral Throughout] Pulse Rate [ From Monitor] Respiratory 25 H 26 H 25 H Rate Respiratory Rate [Anterior Bilateral Throughout] Blood Pressure 89/41 89/41 96/39 O2 Sat by Pulse 99 99 99 Oximetry 09/23/16 09/23/16 09/23/16 06:10 06:20 06:30 Temperature Pulse Rate 113 H 99 H 118 H Pulse Rate [ Anterior Bilateral Throughout] Pulse Rate [ From Monitor] Respiratory 26 H 26 H 25 H Rate Respiratory Rate [Anterior Bilateral Throughout] Blood Pressure 96/39 96/39 88/36 O2 Sat by Pulse 99 99 99 Oximetry 09/23/16 09/23/16 09/23/16 06:40 06:50 07:00 Temperature Pulse Rate 109 H 115 H 111 H Pulse Rate [ Anterior Bilateral Throughout] Pulse Rate [ From Monitor] Respiratory 25 H 26 H 28 H Rate Respiratory Rate [Anterior Bilateral Throughout] Blood Pressure 88/36 108/36 86/35 O2 Sat by Pulse 99 99 100 Oximetry 09/23/16 09/23/16 09/23/16 07:10 07:15 07:20 Temperature Pulse Rate 112 H 115 H Pulse Rate [ 110 H Anterior Bilateral Throughout] Pulse Rate [ From Monitor] Respiratory 27 H 26 H Rate Respiratory 25 H Rate [Anterior Bilateral Throughout] Blood Pressure 91/27 98/28 O2 Sat by Pulse 99 99 Oximetry 09/23/16 09/23/16 09/23/16 07:26 07:30 07:40 Temperature 99.9 F H Pulse Rate 111 H 111 H Pulse Rate [ Anterior Bilateral Throughout] Pulse Rate [ From Monitor] Respiratory 25 H 25 H Rate Respiratory Rate [Anterior Bilateral Throughout] Blood Pressure 86/35 91/27 O2 Sat by Pulse 99 99 Oximetry 09/23/16 09/23/16 09/23/16 07:46 07:47 07:49 Temperature 99.9 F H Pulse Rate Pulse Rate [ 101 H Anterior Bilateral Throughout] Pulse Rate [ 112 H From Monitor] Respiratory 28 H Rate Respiratory 25 H Rate [Anterior Bilateral Throughout] Blood Pressure O2 Sat by Pulse 99 Oximetry 09/23/16 09/23/16 09/23/16 07:50 08:00 08:10 Temperature Pulse Rate 128 H 112 H 89 Pulse Rate [ Anterior Bilateral Throughout] Pulse Rate [ From Monitor] Respiratory 27 H 25 H 26 H Rate Respiratory Rate [Anterior Bilateral Throughout] Blood Pressure 135/54 113/45 135/54 O2 Sat by Pulse 99 99 100 Oximetry 09/23/16 09/23/16 09/23/16 08:20 08:30 08:40 Temperature Pulse Rate 107 H 113 H 104 H Pulse Rate [ Anterior Bilateral Throughout] Pulse Rate [ From Monitor] Respiratory 30 H 20 25 H Rate Respiratory Rate [Anterior Bilateral Throughout] Blood Pressure 92/37 103/38 92/37 O2 Sat by Pulse 100 100 100 Oximetry 09/23/16 09/23/16 09/23/16 08:50 09:00 09:10 Temperature Pulse Rate 113 H 104 H 95 H Pulse Rate [ Anterior Bilateral Throughout] Pulse Rate [ From Monitor] Respiratory 26 H 26 H 26 H Rate Respiratory Rate [Anterior Bilateral Throughout] Blood Pressure 105/34 109/46 103/38 O2 Sat by Pulse 96 94 100 Oximetry 09/23/16 09/23/16 09/23/16 09:20 09:30 09:40 Temperature Pulse Rate 112 H 113 H 162 H Pulse Rate [ Anterior Bilateral Throughout] Pulse Rate [ From Monitor] Respiratory 28 H 25 H 24 Rate Respiratory Rate [Anterior Bilateral Throughout] Blood Pressure 106/24 103/29 103/29 O2 Sat by Pulse 100 100 100 Oximetry 09/23/16 09/23/16 09/23/16 09:50 10:00 10:10 Temperature Pulse Rate 115 H 103 H 108 H Pulse Rate [ Anterior Bilateral Throughout] Pulse Rate [ From Monitor] Respiratory 27 H 29 H 27 H Rate Respiratory Rate [Anterior Bilateral Throughout] Blood Pressure 100/59 111/34 111/34 O2 Sat by Pulse 100 95 100 Oximetry 09/23/16 09/23/16 09/23/16 10:20 10:30 10:40 Temperature Pulse Rate 114 H 110 H 112 H Pulse Rate [ Anterior Bilateral Throughout] Pulse Rate [ From Monitor] Respiratory 27 H 26 H 26 H Rate Respiratory Rate [Anterior Bilateral Throughout] Blood Pressure 121/41 112/37 112/37 O2 Sat by Pulse 100 100 100 Oximetry 09/23/16 09/23/16 09/23/16 10:50 11:00 11:10 Temperature Pulse Rate 89 100 H 104 H Pulse Rate [ Anterior Bilateral Throughout] Pulse Rate [ From Monitor] Respiratory 25 H 22 26 H Rate Respiratory Rate [Anterior Bilateral Throughout] Blood Pressure 111/30 126/79 101/44 O2 Sat by Pulse 100 100 100 Oximetry 09/23/16 09/23/16 09/23/16 11:20 11:30 11:31 Temperature Pulse Rate 113 H 121 H Pulse Rate [ Anterior Bilateral Throughout] Pulse Rate [ 110 H From Monitor] Respiratory 27 H 29 H 26 H Rate Respiratory Rate [Anterior Bilateral Throughout] Blood Pressure 95/57 95/57 O2 Sat by Pulse 100 97 100 Oximetry 09/23/16 09/23/16 09/23/16 11:40 11:50 12:00 Temperature 99.3 F Pulse Rate 87 103 H 109 H Pulse Rate [ Anterior Bilateral Throughout] Pulse Rate [ From Monitor] Respiratory 26 H 29 H 22 Rate Respiratory Rate [Anterior Bilateral Throughout] Blood Pressure 117/94 94/33 118/50 O2 Sat by Pulse 100 100 100 Oximetry 09/23/16 09/23/16 09/23/16 12:10 12:20 12:30 Temperature Pulse Rate 113 H 110 H 98 H Pulse Rate [ Anterior Bilateral Throughout] Pulse Rate [ From Monitor] Respiratory 25 H 26 H 26 H Rate Respiratory Rate [Anterior Bilateral Throughout] Blood Pressure 108/63 100/27 127/60 O2 Sat by Pulse 100 100 100 Oximetry 09/23/16 09/23/16 09/23/16 12:40 12:50 13:00 Temperature Pulse Rate 98 H 108 H 102 H Pulse Rate [ Anterior Bilateral Throughout] Pulse Rate [ From Monitor] Respiratory 27 H 26 H 26 H Rate Respiratory Rate [Anterior Bilateral Throughout] Blood Pressure 127/60 127/37 121/38 O2 Sat by Pulse 71 L 81 L 100 Oximetry 09/23/16 09/23/16 09/23/16 13:10 13:20 13:30 Temperature Pulse Rate 113 H 111 H 110 H Pulse Rate [ Anterior Bilateral Throughout] Pulse Rate [ From Monitor] Respiratory 25 H 25 H 26 H Rate Respiratory Rate [Anterior Bilateral Throughout] Blood Pressure 121/38 119/57 124/47 O2 Sat by Pulse 97 88 100 Oximetry 09/23/16 09/23/16 09/23/16 13:40 13:50 14:00 Temperature Pulse Rate 103 H 112 H 114 H Pulse Rate [ Anterior Bilateral Throughout] Pulse Rate [ From Monitor] Respiratory 25 H 25 H 25 H Rate Respiratory Rate [Anterior Bilateral Throughout] Blood Pressure 124/47 122/31 126/79 O2 Sat by Pulse 78 L 78 L 95 Oximetry 09/23/16 09/23/16 09/23/16 14:10 14:20 14:30 Temperature Pulse Rate 103 H 111 H 110 H Pulse Rate [ Anterior Bilateral Throughout] Pulse Rate [ From Monitor] Respiratory 26 H 25 H 26 H Rate Respiratory Rate [Anterior Bilateral Throughout] Blood Pressure 126/79 127/36 119/38 O2 Sat by Pulse 79 L 78 L 100 Oximetry 09/23/16 09/23/16 09/23/16 14:40 14:50 15:00 Temperature Pulse Rate 111 H 95 H 109 H Pulse Rate [ Anterior Bilateral Throughout] Pulse Rate [ From Monitor] Respiratory 26 H 28 H 25 H Rate Respiratory Rate [Anterior Bilateral Throughout] Blood Pressure 119/38 117/52 126/49 O2 Sat by Pulse 95 90 98 Oximetry 09/23/16 09/23/16 09/23/16 15:10 15:20 15:30 Temperature Pulse Rate 104 H 107 H 106 H Pulse Rate [ Anterior Bilateral Throughout] Pulse Rate [ From Monitor] Respiratory 26 H 25 H 25 H Rate Respiratory Rate [Anterior Bilateral Throughout] Blood Pressure 126/49 127/28 127/28 O2 Sat by Pulse 85 97 100 Oximetry 09/23/16 09/23/16 09/23/16 15:40 15:50 15:59 Temperature 99.0 F Pulse Rate 115 H 96 H Pulse Rate [ Anterior Bilateral Throughout] Pulse Rate [ From Monitor] Respiratory 26 H 26 H Rate Respiratory Rate [Anterior Bilateral Throughout] Blood Pressure 92/36 120/33 O2 Sat by Pulse 100 99 Oximetry 09/23/16 16:00 Temperature Pulse Rate 100 H Pulse Rate [ Anterior Bilateral Throughout] Pulse Rate [ From Monitor] Respiratory 26 H Rate Respiratory Rate [Anterior Bilateral Throughout] Blood Pressure 129/36 O2 Sat by Pulse 98 Oximetry - General physical appearance no distress - Respiratory normal respiratory effort (Fio2 25%) - Abdomen soft, not tender - Neurologic other (nonresponsive) - Labs 09/23/16 04:45 09/23/16 04:45 Diabetes panel 09/23/16 Range/Units 04:45 Sodium 145 (137-145) mmol/L Potassium 4.2 D (3.6-5.0) mmol/L Chloride 109.2 H (98-107) mmol/L Carbon Dioxide 21 L (22-30) mmol/L BUN 43 H (7-17) mg/dL Creatinine 0.5 L (0.7-1.2) mg/dL Glucose 152 H (65-100) mg/dL Calcium 7.7 L (8.4-10.2) mg/dL Calcium panel 09/23/16 Range/Units 04:45 Calcium 7.7 L (8.4-10.2) mg/dL Pituitary panel 09/23/16 Range/Units 04:45 Sodium 145 (137-145) mmol/L Potassium 4.2 D (3.6-5.0) mmol/L Chloride 109.2 H (98-107) mmol/L Carbon Dioxide 21 L (22-30) mmol/L BUN 43 H (7-17) mg/dL Creatinine 0.5 L (0.7-1.2) mg/dL Glucose 152 H (65-100) mg/dL Calcium 7.7 L (8.4-10.2) mg/dL Adrenal panel 09/23/16 Range/Units 04:45 Sodium 145 (137-145) mmol/L Potassium 4.2 D (3.6-5.0) mmol/L Chloride 109.2 H (98-107) mmol/L Carbon Dioxide 21 L (22-30) mmol/L BUN 43 H (7-17) mg/dL Creatinine 0.5 L (0.7-1.2) mg/dL Glucose 152 H (65-100) mg/dL Calcium 7.7 L (8.4-10.2) mg/dL
[2016-09-24] MEDS: LOPRESSOR PO SCH ×4 (00:40→17:53)
[2016-09-24] MEDS: DUONEB 0.5 MG-3 MG/3 ML SOLN IH SCH ×4 (01:34→20:01)
[2016-09-24] MEDS: NOVOLOG SUB-Q SCH ×6 (02:20→22:05)
[2016-09-24] MEDS: PROTONIX 80 MG in NACL 0.9% 100 ML IV SCH (05:26)
[2016-09-24 05:43] LABS: Hemoglobin 8.8 gm/dl (10.1-14.3); Mean Corpuscular HGB Conc 33 % (30-34); Mean Corpuscular Hemoglobin 31 pg (28-32); Platelet Count 181 K/mm3 (140-440); Red Blood Count 2.82 M/mm3 (3.65-5.03); Red Cell Distribution Width 17.2 % (13.2-15.2)
[2016-09-24 05:49] LABS: Mean Corpuscular Volume 94 fl (79-97)
[2016-09-24 06:06] LABS: Anion Gap 16 mmol/L; BUN/Creatinine Ratio 63.33; Blood Urea Nitrogen 38 mg/dL (7-17); Calcium 7.9 mg/dL (8.4-10.2); Carbon Dioxide 21 mmol/L (22-30); Glucose 163 mg/dL (65-100); Potassium 3.9 mmol/L (3.6-5.0); Sodium 148 mmol/L (137-145)
[2016-09-24] MEDS: PROAMATINE PO SCH ×3 (09:21→22:05)
[2016-09-24] MEDS: FERROUS SULFATE PO SCH (09:49)
[2016-09-24] MEDS: FOLVITE PO SCH (09:49)
[2016-09-24] MEDS: SYNTHROID PO SCH (09:49)
[2016-09-24] MEDS: KEPPRA PO SCH ×2 (09:49→22:05)
[2016-09-24] MEDS: POTASSIUM CHLORIDE FEEDTUBE SCH (09:50)
--- NOTE | 2016-09-24 09:50 | Progress Note ---
Assessment and Plan (1) Respiratory failure Current Visit: Yes Status: Acute Qualifiers: Chronicity: C Respiratory failure complication: R Plan to address problem: - VAP bundle addressed - continue to Wean FIO2 for O2 sats>92% - continue VTE prophylaxis (SCD's re: thrombocytopenia) - continue Stress ulcer prophylaxis (Pantoprazole) - continuing sedation vacations while watching for any obvious seizure activity - continue Lung protective strategies - seen by surgery and consent to be obtained today for trach +/- PEG once clinically and technically feasible - hold diuretics (pulm edema pattern better) - following clinically otherwise - resumed daytime PSV trials (2) Shock Current Visit: Yes Status: Acute Plan to address problem: - Treated as septic shock secondary to HCAP earlier - continue strict glycemic control - completed AB's course; trending WBC - ID following - tapered off stress steroids now - continue midodrine for now but tapering - likely hypovolemic shock at this point with GI bleeding - s/p 4 units PRBC's - received a liter of IVNS - weaned off levophed now (3) Acute on chronic diastolic (congestive) heart failure Current Visit: No Status: Acute Plan to address problem: - Documented EF 55% - Continue to monitoring renal function and electrolyte profile closely - continue to monitor urine output, electrolyte profile (4) Altered mental status Current Visit: Yes Status: Acute Qualifiers: Altered mental status type: unspecified Coma depth: C Coma timing: C Qualified Code(s): R41.82 - Altered mental status, unspecified Plan to address problem: - Neurology following - on keppra - weaned off ativan and will use prn now - TSH elevated and started on low dose levoxyl (5) Morbid obesity Current Visit: Yes Status: Acute Qualifiers: Obesity type: unspecified obesity type Qualified Code(s): E66.01 - Morbid ( severe) obesity due to excess calories - weight loss strategies once more stable - caloric intake per exterminator helper at this point (6) Anemia Current Visit: Yes Status: Acute Qualifiers: Anemia type: unspecified type Iron deficiency anemia type: I Vitamin B12 deficiency anemia type: V Folate deficiency anemia type: F Bone marrow failure anemia type: B Hemolytic anemia type: H Other causes of anemia: O Qualified Code(s): D64.9 - Anemia, unspecified Plan to address problem: - acute GI bleed - to receive 4 units PRBC's in all and will have 2 on hold - GI evaluation ordered - begin protonix drip - H&H holding - protonix drip to stop today - resume tube feeds at 10mls/hr (Lower GI bleed and no rebleed X 48hrs; GI signed off) (7) Status epilepticus Current Visit: Yes Status: Acute Plan to address problem: - Continue AEDs - Neurology following - no obvious clinical seizure activity (8) 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 - This could be secondary to an intra-cranial process, however unable to obtain neuro-imaging, patient's weight exceeds allowable maximum (9) Discharge planning issues Current Visit: Yes Status: Acute Plan to address problem: - Continue current care. - need to determine appropriate power of immigration attorney / legal healthcare sales representative door to door prior to any tentative withdrawal of care - son came by and signed DNR order however no consensus on hospice care / withdrawal - LTAC refused admission ..she remains critically ill on life sustaining interventions including MVS and back on vasopressors at high risk for further deterioration including ...care plan discussed at length with sister ....30' CCT Subjective Date of service: 09/24/16 Principal diagnosis: Acute Hypoxemic Hypercapnic Resp Failure; Severe Sepsis Interval history: Seen and examined at bedside; 24 hour events reviewed; nursing and respiratory care staff consulted; no adverse overnight events reported to me; remains on MVS ; sister visisting; no more GI bleeding and H&H holding; no new issues respiratory-burch; awaiting tracheostomy Objective Vital Signs - 12hr 09/23/16 09/23/16 09/23/16 21:50 22:00 22:10 Temperature Pulse Rate 103 H 119 H 91 H Pulse Rate [ Anterior Bilateral Throughout] Respiratory 26 H 15 26 H Rate Respiratory Rate [Anterior Bilateral Throughout] Blood Pressure 128/76 125/66 125/66 O2 Sat by Pulse 100 100 100 Oximetry 09/23/16 09/23/16 09/23/16 22:20 22:30 22:40 Temperature Pulse Rate 95 H 92 H 96 H Pulse Rate [ Anterior Bilateral Throughout] Respiratory 27 H 27 H 25 H Rate Respiratory Rate [Anterior Bilateral Throughout] Blood Pressure 147/36 101/52 101/52 O2 Sat by Pulse 100 100 100 Oximetry 09/23/16 09/23/16 09/23/16 22:50 23:00 23:10 Temperature Pulse Rate 104 H 120 H 86 Pulse Rate [ Anterior Bilateral Throughout] Respiratory 27 H 24 26 H Rate Respiratory Rate [Anterior Bilateral Throughout] Blood Pressure 125/47 100/52 100/52 O2 Sat by Pulse 100 98 100 Oximetry 09/23/16 09/23/16 09/23/16 23:20 23:30 23:40 Temperature Pulse Rate 109 H 78 92 H Pulse Rate [ Anterior Bilateral Throughout] Respiratory 22 19 24 Rate Respiratory Rate [Anterior Bilateral Throughout] Blood Pressure 91/56 113/56 113/56 O2 Sat by Pulse 100 100 100 Oximetry 09/23/16 09/24/16 09/24/16 23:50 00:00 00:10 Temperature 96.8 F L Pulse Rate 115 H 106 H 84 Pulse Rate [ Anterior Bilateral Throughout] Respiratory 22 18 26 H Rate Respiratory Rate [Anterior Bilateral Throughout] Blood Pressure 135/81 116/34 91/56 O2 Sat by Pulse 100 100 47 L Oximetry 09/24/16 09/24/16 09/24/16 00:20 00:27 00:40 Temperature Pulse Rate 104 H 105 H 87 Pulse Rate [ Anterior Bilateral Throughout] Respiratory 27 H 24 Rate Respiratory Rate [Anterior Bilateral Throughout] Blood Pressure 106/49 106/49 110/50 O2 Sat by Pulse 100 100 100 Oximetry 09/24/16 09/24/16 09/24/16 00:50 01:00 01:10 Temperature Pulse Rate 90 77 70 Pulse Rate [ Anterior Bilateral Throughout] Respiratory 22 28 H 24 Rate Respiratory Rate [Anterior Bilateral Throughout] Blood Pressure 119/47 110/49 110/49 O2 Sat by Pulse 100 100 100 Oximetry 09/24/16 09/24/16 09/24/16 01:20 01:30 01:35 Temperature Pulse Rate 123 H 93 H Pulse Rate [ 103 H Anterior Bilateral Throughout] Respiratory 26 H 24 Rate Respiratory 26 H Rate [Anterior Bilateral Throughout] Blood Pressure 127/60 112/51 O2 Sat by Pulse 100 100 Oximetry 09/24/16 09/24/16 09/24/16 01:40 01:50 02:00 Temperature Pulse Rate 89 113 H 71 Pulse Rate [ 105 H Anterior Bilateral Throughout] Respiratory 27 H 26 H 27 H Rate Respiratory 26 H Rate [Anterior Bilateral Throughout] Blood Pressure 112/51 125/101 78/47 O2 Sat by Pulse 100 100 93 Oximetry 09/24/16 09/24/16 09/24/16 02:10 02:20 02:30 Temperature Pulse Rate 90 105 H 79 Pulse Rate [ Anterior Bilateral Throughout] Respiratory 26 H 28 H 29 H Rate Respiratory Rate [Anterior Bilateral Throughout] Blood Pressure 111/62 111/62 94/41 O2 Sat by Pulse 98 94 88 Oximetry 09/24/16 09/24/16 09/24/16 02:40 02:50 03:00 Temperature Pulse Rate 91 H 117 H 104 H Pulse Rate [ Anterior Bilateral Throughout] Respiratory 30 H 26 H 28 H Rate Respiratory Rate [Anterior Bilateral Throughout] Blood Pressure 94/41 94/41 94/41 O2 Sat by Pulse 92 100 100 Oximetry 09/24/16 09/24/16 09/24/16 03:10 03:20 03:30 Temperature Pulse Rate 83 112 H 66 Pulse Rate [ Anterior Bilateral Throughout] Respiratory 27 H 28 H 20 Rate Respiratory Rate [Anterior Bilateral Throughout] Blood Pressure 114/59 114/59 118/31 O2 Sat by Pulse 100 100 100 Oximetry 09/24/16 09/24/16 09/24/16 03:40 03:46 03:50 Temperature Pulse Rate 98 H 103 H 97 H Pulse Rate [ Anterior Bilateral Throughout] Respiratory 30 H 27 H Rate Respiratory Rate [Anterior Bilateral Throughout] Blood Pressure 118/31 118/31 118/31 O2 Sat by Pulse 100 100 100 Oximetry 09/24/16 09/24/16 09/24/16 04:00 04:10 04:20 Temperature 98.9 F Pulse Rate 98 H 93 H 109 H Pulse Rate [ Anterior Bilateral Throughout] Respiratory 28 H 27 H 27 H Rate Respiratory Rate [Anterior Bilateral Throughout] Blood Pressure 93/55 93/55 93/55 O2 Sat by Pulse 100 100 100 Oximetry 09/24/16 09/24/16 09/24/16 04:30 04:40 04:50 Temperature Pulse Rate 106 H 72 192 H Pulse Rate [ Anterior Bilateral Throughout] Respiratory 26 H 25 H 27 H Rate Respiratory Rate [Anterior Bilateral Throughout] Blood Pressure 112/46 93/55 93/55 O2 Sat by Pulse 95 100 93 Oximetry 09/24/16 09/24/16 09/24/16 05:00 05:10 05:20 Temperature Pulse Rate 200 H 85 89 Pulse Rate [ Anterior Bilateral Throughout] Respiratory 28 H 25 H 27 H Rate Respiratory Rate [Anterior Bilateral Throughout] Blood Pressure 119/44 119/44 119/44 O2 Sat by Pulse 100 100 100 Oximetry 09/24/16 09/24/16 09/24/16 05:30 05:40 05:50 Temperature Pulse Rate 72 68 72 Pulse Rate [ Anterior Bilateral Throughout] Respiratory 20 25 H 19 Rate Respiratory Rate [Anterior Bilateral Throughout] Blood Pressure 119/35 119/44 119/44 O2 Sat by Pulse 100 100 100 Oximetry 09/24/16 09/24/16 09/24/16 06:00 06:10 06:20 Temperature Pulse Rate 85 83 81 Pulse Rate [ Anterior Bilateral Throughout] Respiratory 25 H 27 H 27 H Rate Respiratory Rate [Anterior Bilateral Throughout] Blood Pressure 119/44 140/38 140/38 O2 Sat by Pulse 100 100 100 Oximetry 09/24/16 09/24/16 09/24/16 06:30 06:40 06:50 Temperature Pulse Rate 84 83 75 Pulse Rate [ Anterior Bilateral Throughout] Respiratory 27 H 26 H 22 Rate Respiratory Rate [Anterior Bilateral Throughout] Blood Pressure 138/52 138/52 138/52 O2 Sat by Pulse 100 82 L 100 Oximetry 09/24/16 09/24/16 09/24/16 07:00 07:10 07:20 Temperature Pulse Rate 87 78 64 Pulse Rate [ Anterior Bilateral Throughout] Respiratory 27 H 26 H 28 H Rate Respiratory Rate [Anterior Bilateral Throughout] Blood Pressure 138/52 134/53 134/53 O2 Sat by Pulse 100 100 100 Oximetry 09/24/16 09/24/16 09/24/16 07:30 07:40 07:50 Temperature Pulse Rate 84 143 H 91 H Pulse Rate [ Anterior Bilateral Throughout] Respiratory 28 H 26 H 28 H Rate Respiratory Rate [Anterior Bilateral Throughout] Blood Pressure 135/59 135/59 135/59 O2 Sat by Pulse 87 100 100 Oximetry 09/24/16 09/24/16 09/24/16 08:00 08:10 08:20 Temperature 98.7 F Pulse Rate 90 89 90 Pulse Rate [ Anterior Bilateral Throughout] Respiratory 27 H 28 H 26 H Rate Respiratory Rate [Anterior Bilateral Throughout] Blood Pressure 140/56 140/56 140/56 O2 Sat by Pulse 90 100 100 Oximetry 09/24/16 09/24/16 09/24/16 08:30 08:40 08:50 Temperature Pulse Rate 88 86 95 H Pulse Rate [ Anterior Bilateral Throughout] Respiratory 22 26 H 27 H Rate Respiratory Rate [Anterior Bilateral Throughout] Blood Pressure 140/56 109/81 109/81 O2 Sat by Pulse 100 100 100 Oximetry 09/24/16 09/24/16 09/24/16 09:20 09:25 09:28 Temperature Pulse Rate 101 H 96 H Pulse Rate [ 96 H Anterior Bilateral Throughout] Respiratory 22 Rate Respiratory 23 Rate [Anterior Bilateral Throughout] Blood Pressure 138/31 138/31 O2 Sat by Pulse 99 99 Oximetry Constitutional: no acute distress, other (encephalopathic) Eyes: non-icteric ENT: oropharynx moist, other (ETT 22cm RAFAEL) Neck: supple, no lymphadenopathy Effort: mildly labored Ascultation: Bilateral: diminished breath sounds, rales (bases) Cardiovascular: regular rate and rhythm Gastrointestinal: hypoactive bowel sounds, soft, non-tender, non-distended Integumentary: normal Extremities: no cyanosis, pulses normal, no ischemia or petechiae, edema (1++) Neurologic: unable to assess, other (lethargic) Psychiatric: other (sedated) CBC and BMP: 09/24/16 05:00 09/24/16 05:00 ABG, PT/INR, D-dimer: ABG POC ABG pH 7.460 (7.35-7.45) H 09/22/16 03:26 POC ABG pCO2 29.9 (35-45) L 09/22/16 03:26 POC ABG pO2 112 (80-105) H 09/22/16 03:26 POC ABG HCO3 21.3 09/22/16 03:26 POC ABG Total CO2 22 09/22/16 03:26 POC ABG O2 Sat 99 09/22/16 03:26 PT/INR, D-dimer PT 13.8 Sec. (12.2-14.9) 09/10/16 05:10 INR 1.07 (0.87-1.13) 09/10/16 05:10 Abnormal lab findings: Abnormal Labs 08/29/16 08/30/16 08/30/16 21:59 00:16 05:39 WBC RBC Hgb Hct MCV MCH MCHC RDW Plt Count Seg Neutrophils % Seg Neuts % (Manual) Nucleated RBC % Seg Neutrophils # Seg Neutrophils # Man PT INR POC ABG pH POC ABG pCO2 POC ABG pO2 Sodium Potassium Chloride Carbon Dioxide BUN Creatinine Glucose POC Glucose 106 H 128 H Lactic Acid Calcium Magnesium Total Bilirubin AST ALT Alkaline Phosphatase Ammonia Troponin T C-Reactive Protein Total Protein Albumin Prealbumin 0.120 L TSH Crossmatch 08/30/16 08/30/16 08/30/16 10:30 10:30 11:12 WBC 11.1 H RBC 3.16 L Hgb 8.7 L Hct 29.9 L MCV MCH MCHC 29 L RDW 25.0 H Plt Count Seg Neutrophils % 78.6 H Seg Neuts % (Manual) Nucleated RBC % Seg Neutrophils # 8.7 H Seg Neutrophils # Man PT INR POC ABG pH POC ABG pCO2 POC ABG pO2 Sodium 135 L Potassium Chloride Carbon Dioxide 20 L BUN Creatinine 1.5 H Glucose 148 H POC Glucose 142 H Lactic Acid Calcium 7.2 L Magnesium Total Bilirubin 1.30 H AST 143 H ALT Alkaline Phosphatase 392 H Ammonia Troponin T C-Reactive Protein Total Protein 6.1 L Albumin 1.2 L Prealbumin TSH Crossmatch 08/30/16 08/30/16 08/30/16 17:41 18:03 18:18 WBC RBC Hgb Hct MCV MCH MCHC RDW Plt Count Seg Neutrophils % Seg Neuts % (Manual) Nucleated RBC % Seg Neutrophils # Seg Neutrophils # Man PT INR POC ABG pH 7.316 L POC ABG pCO2 POC ABG pO2 44 L 59 L Sodium Potassium Chloride Carbon Dioxide BUN Creatinine Glucose POC Glucose 150 H Lactic Acid Calcium Magnesium Total Bilirubin AST ALT Alkaline Phosphatase Ammonia Troponin T C-Reactive Protein Total Protein Albumin Prealbumin TSH Crossmatch 08/30/16 08/30/16 08/31/16 22:20 22:20 00:11 WBC RBC Hgb Hct MCV MCH MCHC RDW Plt Count Seg Neutrophils % Seg Neuts % (Manual) Nucleated RBC % Seg Neutrophils # Seg Neutrophils # Man PT INR POC ABG pH POC ABG pCO2 POC ABG pO2 Sodium Potassium Chloride Carbon Dioxide BUN Creatinine Glucose POC Glucose 133 H Lactic Acid 2.30 H* Calcium Magnesium Total Bilirubin AST ALT Alkaline Phosphatase Ammonia Troponin T C-Reactive Protein 10.20 H Total Protein Albumin Prealbumin TSH Crossmatch 08/31/16 08/31/16 08/31/16 04:20 04:20 04:20 WBC 18.3 H RBC 3.19 L Hgb 8.8 L Hct 30.0 L MCV MCH 27 L MCHC 29 L RDW 23.9 H Plt Count Seg Neutrophils % Seg Neuts % (Manual) Nucleated RBC % Seg Neutrophils # Seg Neutrophils # Cristian PT 16.8 H INR 1.37 H POC ABG pH POC ABG pCO2 POC ABG pO2 Sodium 136 L Potassium Chloride Carbon Dioxide 19 L BUN Creatinine 1.5 H Glucose 125 H POC Glucose Lactic Acid Calcium 7.0 L Magnesium Total Bilirubin 1.50 H AST 131 H ALT Alkaline Phosphatase 431 H Ammonia Troponin T C-Reactive Protein Total Protein 6.2 L Albumin 1.2 L Prealbumin TSH Crossmatch 08/31/16 08/31/16 08/31/16 04:20 05:22 05:24 WBC RBC Hgb Hct MCV MCH MCHC RDW Plt Count Seg Neutrophils % Seg Neuts % (Manual) Nucleated RBC % Seg Neutrophils # Seg Neutrophils # Man PT INR POC ABG pH POC ABG pCO2 POC ABG pO2 142 H Sodium Potassium Chloride Carbon Dioxide BUN Creatinine Glucose POC Glucose 123 H Lactic Acid Calcium Magnesium Total Bilirubin AST ALT Alkaline Phosphatase Ammonia 70.0 H Troponin T C-Reactive Protein Total Protein Albumin Prealbumin TSH Crossmatch 08/31/16 08/31/16 08/31/16 12:10 15:45 17:38 WBC RBC Hgb Hct MCV MCH MCHC RDW Plt Count Seg Neutrophils % Seg Neuts % (Manual) Nucleated RBC % Seg Neutrophils # Seg Neutrophils # Cristian PT INR POC ABG pH POC ABG pCO2 POC ABG pO2 Sodium 136 L Potassium Chloride Carbon Dioxide 21 L BUN Creatinine 1.5 H Glucose 160 H POC Glucose 147 H 151 H Lactic Acid Calcium 6.9 L Magnesium Total Bilirubin AST ALT Alkaline Phosphatase Ammonia Troponin T 0.109 H* D C-Reactive Protein Total Protein Albumin Prealbumin TSH Crossmatch 09/01/16 09/01/16 09/01/16 00:09 04:00 04:00 WBC 14.8 H RBC 2.89 L Hgb 7.8 L Hct 27.2 L MCV MCH 27 L MCHC 29 L RDW 24.4 H Plt Count Seg Neutrophils % Seg Neuts % (Manual) Nucleated RBC % Seg Neutrophils # Seg Neutrophils # Man PT 18.2 H INR 1.51 H POC ABG pH POC ABG pCO2 POC ABG pO2 Sodium Potassium Chloride Carbon Dioxide BUN Creatinine Glucose POC Glucose 192 H Lactic Acid Calcium Magnesium Total Bilirubin AST ALT Alkaline Phosphatase Ammonia Troponin T C-Reactive Protein Total Protein Albumin Prealbumin TSH Crossmatch 09/01/16 09/01/16 09/01/16 04:00 05:28 11:28 WBC RBC Hgb Hct MCV MCH MCHC RDW Plt Count Seg Neutrophils % Seg Neuts % (Manual) Nucleated RBC % Seg Neutrophils # Seg Neutrophils # Man PT INR POC ABG pH POC ABG pCO2 POC ABG pO2 Sodium Potassium Chloride Carbon Dioxide 20 L BUN Creatinine 1.6 H Glucose 183 H POC Glucose 189 H 207 H Lactic Acid Calcium 6.9 L Magnesium Total Bilirubin 1.30 H AST 138 H ALT Alkaline Phosphatase 520 H Ammonia Troponin T C-Reactive Protein Total Protein 6.1 L Albumin 1.2 L Prealbumin TSH Crossmatch 09/01/16 09/01/16 09/02/16 16:56 23:49 05:00 WBC RBC Hgb Hct MCV MCH MCHC RDW Plt Count Seg Neutrophils % Seg Neuts % (Manual) Nucleated RBC % Seg Neutrophils # Seg Neutrophils # Man PT 18.0 H INR 1.49 H POC ABG pH POC ABG pCO2 POC ABG pO2 Sodium Potassium Chloride Carbon Dioxide BUN Creatinine Glucose POC Glucose 250 H 307 H Lactic Acid Calcium Magnesium Total Bilirubin AST ALT Alkaline Phosphatase Ammonia Troponin T C-Reactive Protein Total Protein Albumin Prealbumin TSH Crossmatch 09/02/16 09/02/16 09/02/16 05:00 05:00 05:45 WBC 12.3 H RBC 2.57 L Hgb 7.1 L Hct 23.4 L MCV MCH MCHC RDW 23.9 H Plt Count Seg Neutrophils % Seg Neuts % (Manual) 72.0 H Nucleated RBC % 25.0 H Seg Neutrophils # Seg Neutrophils # Man 8.9 H PT INR POC ABG pH POC ABG pCO2 POC ABG pO2 Sodium Potassium Chloride Carbon Dioxide BUN Creatinine 1.4 H Glucose 299 H POC Glucose 327 H Lactic Acid Calcium 7.0 L Magnesium Total Bilirubin AST ALT Alkaline Phosphatase Ammonia Troponin T C-Reactive Protein Total Protein Albumin Prealbumin TSH Crossmatch 09/02/16 09/02/16 09/02/16 12:22 17:22 23:24 WBC RBC Hgb Hct MCV MCH MCHC RDW Plt Count Seg Neutrophils % Seg Neuts % (Manual) Nucleated RBC % Seg Neutrophils # Seg Neutrophils # Man PT INR POC ABG pH POC ABG pCO2 POC ABG pO2 Sodium Potassium Chloride Carbon Dioxide BUN Creatinine Glucose POC Glucose 310 H 358 H 286 H Lactic Acid Calcium Magnesium Total Bilirubin AST ALT Alkaline Phosphatase Ammonia Troponin T C-Reactive Protein Total Protein Albumin Prealbumin TSH Crossmatch 09/03/16 09/03/16 09/03/16 04:10 04:10 04:10 WBC 11.8 H RBC 2.29 L Hgb 6.1 L Hct 21.0 L MCV MCH 27 L MCHC 29 L RDW 24.1 H Plt Count Seg Neutrophils % Seg Neuts % (Manual) Nucleated RBC % Seg Neutrophils # Seg Neutrophils # Man PT 17.6 H INR 1.45 H POC ABG pH POC ABG pCO2 POC ABG pO2 Sodium Potassium Chloride Carbon Dioxide BUN Creatinine 1.4 H Glucose 301 H POC Glucose Lactic Acid Calcium 7.0 L Magnesium Total Bilirubin AST ALT Alkaline Phosphatase Ammonia Troponin T C-Reactive Protein Total Protein Albumin Prealbumin TSH Crossmatch 09/03/16 09/03/16 09/03/16 05:59 11:36 17:42 WBC RBC Hgb Hct MCV MCH MCHC RDW Plt Count Seg Neutrophils % Seg Neuts % (Manual) Nucleated RBC % Seg Neutrophils # Seg Neutrophils # Man PT INR POC ABG pH POC ABG pCO2 POC ABG pO2 Sodium Potassium Chloride Carbon Dioxide BUN Creatinine Glucose POC Glucose 351 H 285 H 259 H Lactic Acid Calcium Magnesium Total Bilirubin AST ALT Alkaline Phosphatase Ammonia Troponin T C-Reactive Protein Total Protein Albumin Prealbumin TSH Crossmatch 09/03/16 09/04/16 09/04/16 23:00 04:27 05:36 WBC RBC Hgb Hct MCV MCH MCHC RDW Plt Count Seg Neutrophils % Seg Neuts % (Manual) Nucleated RBC % Seg Neutrophils # Seg Neutrophils # Man PT INR POC ABG pH 7.544 H POC ABG pCO2 30.8 L POC ABG pO2 78 L Sodium Potassium Chloride Carbon Dioxide BUN Creatinine Glucose POC Glucose 192 H 228 H Lactic Acid Calcium Magnesium Total Bilirubin AST ALT Alkaline Phosphatase Ammonia Troponin T C-Reactive Protein Total Protein Albumin Prealbumin TSH Crossmatch 09/04/16 09/04/16 09/04/16 06:37 06:37 06:39 WBC 21.0 H RBC 2.22 L Hgb 6.0 L Hct 20.1 L MCV MCH 27 L MCHC RDW 24.3 H Plt Count Seg Neutrophils % Seg Neuts % (Manual) Nucleated RBC % Seg Neutrophils # Seg Neutrophils # Man PT 16.8 H INR 1.37 H POC ABG pH POC ABG pCO2 POC ABG pO2 Sodium Potassium Chloride Carbon Dioxide BUN Creatinine 1.4 H Glucose 201 H POC Glucose Lactic Acid Calcium 7.1 L Magnesium Total Bilirubin AST ALT Alkaline Phosphatase Ammonia Troponin T C-Reactive Protein Total Protein Albumin Prealbumin TSH Crossmatch 09/04/16 09/04/16 09/04/16 12:14 15:47 17:41 WBC RBC Hgb Hct MCV MCH MCHC RDW Plt Count Seg Neutrophils % Seg Neuts % (Manual) Nucleated RBC % Seg Neutrophils # Seg Neutrophils # Man PT INR POC ABG pH POC ABG pCO2 POC ABG pO2 Sodium Potassium Chloride Carbon Dioxide BUN Creatinine Glucose POC Glucose 176 H 218 H Lactic Acid Calcium Magnesium Total Bilirubin AST ALT Alkaline Phosphatase Ammonia Troponin T C-Reactive Protein Total Protein Albumin Prealbumin TSH Crossmatch See Detail 09/04/16 09/04/16 09/05/16 21:59 23:48 04:30 WBC RBC Hgb Hct MCV MCH MCHC RDW Plt Count Seg Neutrophils % Seg Neuts % (Manual) Nucleated RBC % Seg Neutrophils # Seg Neutrophils # Man PT 17.2 H INR 1.41 H POC ABG pH POC ABG pCO2 POC ABG pO2 Sodium Potassium Chloride Carbon Dioxide BUN Creatinine Glucose POC Glucose 170 H 121 H Lactic Acid Calcium Magnesium Total Bilirubin AST ALT Alkaline Phosphatase Ammonia Troponin T C-Reactive Protein Total Protein Albumin Prealbumin TSH Crossmatch 09/05/16 09/05/16 09/05/16 04:30 04:30 05:09 WBC 31.9 H RBC 3.11 L Hgb 8.5 L Hct 28.3 L D MCV MCH 27 L MCHC RDW 21.0 H Plt Count Seg Neutrophils % Seg Neuts % (Manual) Nucleated RBC % Seg Neutrophils # Seg Neutrophils # Man PT INR POC ABG pH 7.226 L POC ABG pCO2 61.6 H POC ABG pO2 68 L Sodium 134 L Potassium 5.5 H Chloride 96.6 L Carbon Dioxide BUN 23 H Creatinine 1.6 H Glucose 116 H POC Glucose Lactic Acid Calcium 7.1 L Magnesium Total Bilirubin AST ALT Alkaline Phosphatase Ammonia Troponin T C-Reactive Protein Total Protein Albumin Prealbumin TSH Crossmatch 09/05/16 09/05/16 09/05/16 05:33 12:08 17:32 WBC RBC Hgb Hct MCV MCH MCHC RDW Plt Count Seg Neutrophils % Seg Neuts % (Manual) Nucleated RBC % Seg Neutrophils # Seg Neutrophils # Man PT INR POC ABG pH POC ABG pCO2 POC ABG pO2 Sodium Potassium Chloride Carbon Dioxide BUN Creatinine Glucose POC Glucose 114 H 147 H 174 H Lactic Acid Calcium Magnesium Total Bilirubin AST ALT Alkaline Phosphatase Ammonia Troponin T C-Reactive Protein Total Protein Albumin Prealbumin TSH Crossmatch 09/06/16 09/06/16 09/06/16 03:30 03:30 03:30 WBC 25.4 H RBC 2.57 L Hgb 7.2 L Hct 22.8 L MCV MCH MCHC RDW 20.9 H Plt Count 138 L Seg Neutrophils % Seg Neuts % (Manual) Nucleated RBC % Seg Neutrophils # Seg Neutrophils # Man PT 16.4 H INR 1.33 H POC ABG pH POC ABG pCO2 POC ABG pO2 Sodium Potassium Chloride Carbon Dioxide BUN 36 H Creatinine 1.9 H Glucose POC Glucose Lactic Acid Calcium 7.2 L Magnesium Total Bilirubin AST ALT Alkaline Phosphatase Ammonia Troponin T C-Reactive Protein Total Protein Albumin Prealbumin TSH Crossmatch 09/06/16 09/06/16 09/06/16 11:07 12:03 14:44 WBC RBC Hgb Hct MCV MCH MCHC RDW Plt Count Seg Neutrophils % Seg Neuts % (Manual) Nucleated RBC % Seg Neutrophils # Seg Neutrophils # Man PT INR POC ABG pH POC ABG pCO2 POC ABG pO2 Sodium Potassium Chloride Carbon Dioxide BUN Creatinine Glucose POC Glucose 61 L 55 L Lactic Acid Calcium Magnesium Total Bilirubin AST ALT Alkaline Phosphatase Ammonia Troponin T 0.080 H C-Reactive Protein Total Protein Albumin Prealbumin TSH Crossmatch 09/06/16 09/06/16 09/07/16 21:05 23:53 03:36 WBC RBC Hgb Hct MCV MCH MCHC RDW Plt Count Seg Neutrophils % Seg Neuts % (Manual) Nucleated RBC % Seg Neutrophils # Seg Neutrophils # Man PT INR POC ABG pH POC ABG pCO2 POC ABG pO2 Sodium Potassium Chloride Carbon Dioxide BUN Creatinine Glucose POC Glucose 140 H 178 H 243 H Lactic Acid Calcium Magnesium Total Bilirubin AST ALT Alkaline Phosphatase Ammonia Troponin T C-Reactive Protein Total Protein Albumin Prealbumin TSH Crossmatch 09/07/16 09/07/16 09/07/16 03:42 03:42 05:04 WBC 17.3 H RBC 2.69 L Hgb 7.6 L Hct 23.8 L MCV MCH MCHC RDW 20.5 H Plt Count 137 L Seg Neutrophils % Seg Neuts % (Manual) Nucleated RBC % Seg Neutrophils # Seg Neutrophils # Man PT INR POC ABG pH POC ABG pCO2 POC ABG pO2 Sodium Potassium 3.3 L Chloride Carbon Dioxide BUN 38 H Creatinine 1.6 H Glucose 201 H POC Glucose 241 H Lactic Acid Calcium 7.4 L Magnesium Total Bilirubin AST ALT Alkaline Phosphatase Ammonia Troponin T C-Reactive Protein Total Protein Albumin Prealbumin TSH Crossmatch 09/07/16 09/07/16 09/07/16 11:46 17:41 23:18 WBC RBC Hgb Hct MCV MCH MCHC RDW Plt Count Seg Neutrophils % Seg Neuts % (Manual) Nucleated RBC % Seg Neutrophils # Seg Neutrophils # Man PT INR POC ABG pH POC ABG pCO2 POC ABG pO2 Sodium Potassium Chloride Carbon Dioxide BUN Creatinine Glucose POC Glucose 313 H 227 H 116 H Lactic Acid Calcium Magnesium Total Bilirubin AST ALT Alkaline Phosphatase Ammonia Troponin T C-Reactive Protein Total Protein Albumin Prealbumin TSH Crossmatch 09/08/16 09/08/16 09/08/16 04:00 04:00 05:15 WBC 18.4 H RBC 2.43 L Hgb 6.9 L Hct 21.5 L MCV MCH MCHC RDW 20.5 H Plt Count 119 L Seg Neutrophils % Seg Neuts % (Manual) Nucleated RBC % Seg Neutrophils # Seg Neutrophils # Man PT INR POC ABG pH 7.458 H POC ABG pCO2 POC ABG pO2 177 H Sodium Potassium 3.5 L Chloride Carbon Dioxide BUN 37 H Creatinine 1.3 H Glucose POC Glucose Lactic Acid Calcium 7.1 L Magnesium Total Bilirubin AST ALT Alkaline Phosphatase Ammonia Troponin T C-Reactive Protein Total Protein Albumin Prealbumin TSH Crossmatch 09/08/16 09/08/16 09/08/16 11:00 15:58 23:16 WBC RBC Hgb Hct MCV MCH MCHC RDW Plt Count Seg Neutrophils % Seg Neuts % (Manual) Nucleated RBC % Seg Neutrophils # Seg Neutrophils # Man PT INR POC ABG pH POC ABG pCO2 POC ABG pO2 113 H Sodium Potassium Chloride Carbon Dioxide BUN Creatinine Glucose POC Glucose 40 L Lactic Acid Calcium Magnesium Total Bilirubin AST ALT Alkaline Phosphatase Ammonia Troponin T C-Reactive Protein Total Protein Albumin Prealbumin TSH Crossmatch See Detail 09/09/16 09/09/16 09/09/16 05:02 12:33 18:10 WBC RBC Hgb Hct MCV MCH MCHC RDW Plt Count Seg Neutrophils % Seg Neuts % (Manual) Nucleated RBC % Seg Neutrophils # Seg Neutrophils # Man PT INR POC ABG pH 7.454 H POC ABG pCO2 POC ABG pO2 75 L Sodium Potassium Chloride Carbon Dioxide BUN Creatinine Glucose POC Glucose 59 L Lactic Acid Calcium Magnesium Total Bilirubin AST ALT Alkaline Phosphatase Ammonia Troponin T C-Reactive Protein Total Protein Albumin Prealbumin TSH 5.220 H Crossmatch 09/09/16 09/09/16 09/09/16 18:10 18:10 18:42 WBC 17.0 H RBC 2.90 L Hgb 8.5 L Hct 26.1 L MCV MCH MCHC RDW 17.9 H Plt Count 126 L Seg Neutrophils % Seg Neuts % (Manual) Nucleated RBC % Seg Neutrophils # Seg Neutrophils # Man PT INR POC ABG pH POC ABG pCO2 POC ABG pO2 Sodium Potassium Chloride Carbon Dioxide BUN 36 H Creatinine Glucose 133 H POC Glucose 148 H Lactic Acid Calcium 6.9 L Magnesium Total Bilirubin AST 253 H ALT 184 H Alkaline Phosphatase 729 H Ammonia Troponin T C-Reactive Protein Total Protein 5.1 L Albumin 1.7 L Prealbumin TSH Crossmatch 09/09/16 09/10/16 09/10/16 23:22 05:10 11:43 WBC RBC Hgb Hct MCV MCH MCHC RDW Plt Count Seg Neutrophils % Seg Neuts % (Manual) Nucleated RBC % Seg Neutrophils # Seg Neutrophils # Man PT INR POC ABG pH POC ABG pCO2 POC ABG pO2 Sodium Potassium Chloride Carbon Dioxide BUN 35 H Creatinine Glucose 240 H POC Glucose 170 H 268 H Lactic Acid Calcium 6.8 L Magnesium Total Bilirubin AST 226 H ALT 171 H Alkaline Phosphatase 710 H Ammonia Troponin T C-Reactive Protein Total Protein 5.2 L Albumin 1.7 L Prealbumin TSH Crossmatch 09/10/16 09/11/16 09/11/16 17:51 01:07 05:00 WBC RBC Hgb Hct MCV MCH MCHC RDW Plt Count Seg Neutrophils % Seg Neuts % (Manual) Nucleated RBC % Seg Neutrophils # Seg Neutrophils # Man PT INR POC ABG pH POC ABG pCO2 POC ABG pO2 Sodium Potassium 2.9 L* Chloride Carbon Dioxide BUN 35 H Creatinine Glucose 274 H POC Glucose 334 H 223 H Lactic Acid Calcium 6.9 L Magnesium Total Bilirubin AST 167 H ALT 145 H Alkaline Phosphatase 631 H Ammonia Troponin T C-Reactive Protein Total Protein 5.1 L Albumin 1.6 L Prealbumin TSH Crossmatch 09/11/16 09/11/16 09/11/16 05:01 12:16 17:12 WBC RBC Hgb Hct MCV MCH MCHC RDW Plt Count Seg Neutrophils % Seg Neuts % (Manual) Nucleated RBC % Seg Neutrophils # Seg Neutrophils # Man PT INR POC ABG pH POC ABG pCO2 POC ABG pO2 Sodium Potassium Chloride Carbon Dioxide BUN Creatinine Glucose POC Glucose 305 H 219 H 171 H Lactic Acid Calcium Magnesium Total Bilirubin AST ALT Alkaline Phosphatase Ammonia Troponin T C-Reactive Protein Total Protein Albumin Prealbumin TSH Crossmatch 09/11/16 09/12/16 09/12/16 23:35 03:33 05:00 WBC 12.9 H RBC 2.81 L Hgb 8.2 L Hct 25.4 L MCV MCH MCHC RDW 17.9 H Plt Count Seg Neutrophils % Seg Neuts % (Manual) Nucleated RBC % Seg Neutrophils # Seg Neutrophils # Man PT INR POC ABG pH POC ABG pCO2 POC ABG pO2 Sodium Potassium Chloride Carbon Dioxide BUN Creatinine Glucose POC Glucose 216 H 183 H Lactic Acid Calcium Magnesium Total Bilirubin AST ALT Alkaline Phosphatase Ammonia Troponin T C-Reactive Protein Total Protein Albumin Prealbumin TSH Crossmatch 09/12/16 09/12/16 09/12/16 05:00 15:15 18:30 WBC RBC Hgb Hct MCV MCH MCHC RDW Plt Count Seg Neutrophils % Seg Neuts % (Manual) Nucleated RBC % Seg Neutrophils # Seg Neutrophils # Man PT INR POC ABG pH POC ABG pCO2 POC ABG pO2 Sodium Potassium 3.0 L 3.4 L Chloride Carbon Dioxide BUN 33 H Creatinine 0.5 L Glucose POC Glucose 215 H Lactic Acid Calcium 7.0 L Magnesium Total Bilirubin AST ALT Alkaline Phosphatase Ammonia Troponin T C-Reactive Protein Total Protein Albumin Prealbumin TSH Crossmatch 09/12/16 09/13/16 09/13/16 23:17 05:50 05:50 WBC RBC 2.93 L Hgb 8.8 L Hct 26.7 L MCV MCH MCHC RDW 18.0 H Plt Count Seg Neutrophils % Seg Neuts % (Manual) Nucleated RBC % Seg Neutrophils # Seg Neutrophils # Man PT INR POC ABG pH POC ABG pCO2 POC ABG pO2 Sodium Potassium 2.6 L* D Chloride Carbon Dioxide BUN 29 H Creatinine 0.5 L Glucose 106 H POC Glucose 155 H Lactic Acid Calcium 7.3 L Magnesium Total Bilirubin AST ALT Alkaline Phosphatase Ammonia Troponin T C-Reactive Protein Total Protein Albumin Prealbumin TSH Crossmatch 09/13/16 09/13/16 09/13/16 05:53 11:43 15:07 WBC RBC Hgb Hct MCV MCH MCHC RDW Plt Count Seg Neutrophils % Seg Neuts % (Manual) Nucleated RBC % Seg Neutrophils # Seg Neutrophils # Man PT INR POC ABG pH POC ABG pCO2 POC ABG pO2 Sodium Potassium 2.8 L* Chloride Carbon Dioxide BUN Creatinine Glucose POC Glucose 119 H 129 H Lactic Acid Calcium Magnesium Total Bilirubin AST ALT Alkaline Phosphatase Ammonia Troponin T C-Reactive Protein Total Protein Albumin Prealbumin TSH Crossmatch 09/13/16 09/13/16 09/14/16 17:39 23:30 05:34 WBC RBC Hgb Hct MCV MCH MCHC RDW Plt Count Seg Neutrophils % Seg Neuts % (Manual) Nucleated RBC % Seg Neutrophils # Seg Neutrophils # Man PT INR POC ABG pH POC ABG pCO2 POC ABG pO2 Sodium Potassium Chloride Carbon Dioxide BUN Creatinine Glucose POC Glucose 144 H 196 H 175 H Lactic Acid Calcium Magnesium Total Bilirubin AST ALT Alkaline Phosphatase Ammonia Troponin T C-Reactive Protein Total Protein Albumin Prealbumin TSH Crossmatch 09/14/16 09/14/16 09/14/16 06:24 06:24 12:41 WBC RBC 2.82 L Hgb 8.4 L Hct 25.7 L MCV MCH MCHC RDW 18.0 H Plt Count Seg Neutrophils % Seg Neuts % (Manual) Nucleated RBC % Seg Neutrophils # Seg Neutrophils # Man PT INR POC ABG pH POC ABG pCO2 POC ABG pO2 Sodium Potassium 2.9 L* Chloride 107.3 H Carbon Dioxide BUN 26 H Creatinine 0.4 L Glucose 169 H POC Glucose 184 H Lactic Acid Calcium 7.5 L Magnesium Total Bilirubin AST ALT Alkaline Phosphatase Ammonia Troponin T C-Reactive Protein Total Protein Albumin Prealbumin TSH Crossmatch 09/14/16 09/14/16 09/14/16 14:50 17:57 23:34 WBC RBC Hgb Hct MCV MCH MCHC RDW Plt Count Seg Neutrophils % Seg Neuts % (Manual) Nucleated RBC % Seg Neutrophils # Seg Neutrophils # Man PT INR POC ABG pH POC ABG pCO2 POC ABG pO2 Sodium Potassium 3.3 L Chloride Carbon Dioxide BUN Creatinine Glucose POC Glucose 191 H 178 H Lactic Acid Calcium Magnesium Total Bilirubin AST ALT Alkaline Phosphatase Ammonia Troponin T C-Reactive Protein Total Protein Albumin Prealbumin TSH Crossmatch 09/15/16 09/15/16 09/15/16 05:02 07:57 07:57 WBC RBC 3.04 L Hgb 9.2 L Hct 28.2 L MCV MCH MCHC RDW 18.8 H Plt Count Seg Neutrophils % Seg Neuts % (Manual) Nucleated RBC % Seg Neutrophils # Seg Neutrophils # Man PT INR POC ABG pH POC ABG pCO2 POC ABG pO2 Sodium Potassium Chloride 107.2 H Carbon Dioxide BUN 26 H Creatinine 0.4 L Glucose 160 H POC Glucose 192 H Lactic Acid Calcium 7.7 L Magnesium Total Bilirubin AST ALT Alkaline Phosphatase Ammonia Troponin T C-Reactive Protein Total Protein Albumin Prealbumin TSH Crossmatch 09/15/16 09/15/16 09/15/16 11:23 17:51 23:45 WBC RBC Hgb Hct MCV MCH MCHC RDW Plt Count Seg Neutrophils % Seg Neuts % (Manual) Nucleated RBC % Seg Neutrophils # Seg Neutrophils # Man PT INR POC ABG pH POC ABG pCO2 POC ABG pO2 Sodium Potassium Chloride Carbon Dioxide BUN Creatinine Glucose POC Glucose 232 H 240 H 251 H Lactic Acid Calcium Magnesium Total Bilirubin AST ALT Alkaline Phosphatase Ammonia Troponin T C-Reactive Protein Total Protein Albumin Prealbumin TSH Crossmatch 09/16/16 09/16/16 09/16/16 04:55 04:55 05:38 WBC RBC 2.84 L Hgb 8.6 L Hct 26.2 L MCV MCH MCHC RDW 18.8 H Plt Count Seg Neutrophils % Seg Neuts % (Manual) Nucleated RBC % Seg Neutrophils # Seg Neutrophils # Man PT INR POC ABG pH POC ABG pCO2 POC ABG pO2 Sodium Potassium 3.1 L Chloride 107.6 H Carbon Dioxide BUN 25 H Creatinine 0.3 L Glucose 134 H POC Glucose 157 H Lactic Acid Calcium 7.6 L Magnesium Total Bilirubin AST ALT Alkaline Phosphatase Ammonia Troponin T C-Reactive Protein Total Protein Albumin Prealbumin TSH Crossmatch 09/16/16 09/16/16 09/16/16 11:53 17:56 23:54 WBC RBC Hgb Hct MCV MCH MCHC RDW Plt Count Seg Neutrophils % Seg Neuts % (Manual) Nucleated RBC % Seg Neutrophils # Seg Neutrophils # Man PT INR POC ABG pH POC ABG pCO2 POC ABG pO2 Sodium Potassium Chloride Carbon Dioxide BUN Creatinine Glucose POC Glucose 137 H 138 H 179 H Lactic Acid Calcium Magnesium Total Bilirubin AST ALT Alkaline Phosphatase Ammonia Troponin T C-Reactive Protein Total Protein Albumin Prealbumin TSH Crossmatch 09/17/16 09/17/16 09/17/16 05:00 05:00 05:28 WBC RBC 2.77 L Hgb 8.2 L Hct 25.9 L MCV MCH MCHC RDW 19.1 H Plt Count Seg Neutrophils % Seg Neuts % (Manual) Nucleated RBC % Seg Neutrophils # Seg Neutrophils # Man PT INR POC ABG pH POC ABG pCO2 POC ABG pO2 Sodium Potassium 3.5 L Chloride 108.4 H Carbon Dioxide BUN 29 H Creatinine 0.3 L Glucose 117 H POC Glucose 142 H Lactic Acid Calcium 7.4 L Magnesium Total Bilirubin AST ALT Alkaline Phosphatase Ammonia Troponin T C-Reactive Protein Total Protein Albumin Prealbumin TSH Crossmatch 09/17/16 09/17/16 09/18/16 18:07 23:31 06:29 WBC RBC Hgb Hct MCV MCH MCHC RDW Plt Count Seg Neutrophils % Seg Neuts % (Manual) Nucleated RBC % Seg Neutrophils # Seg Neutrophils # Man PT INR POC ABG pH POC ABG pCO2 POC ABG pO2 Sodium Potassium Chloride Carbon Dioxide BUN Creatinine Glucose POC Glucose 173 H 240 H 282 H Lactic Acid Calcium Magnesium Total Bilirubin AST ALT Alkaline Phosphatase Ammonia Troponin T C-Reactive Protein Total Protein Albumin Prealbumin TSH Crossmatch 09/18/16 09/18/16 09/18/16 06:30 12:21 17:55 WBC RBC Hgb Hct MCV MCH MCHC RDW Plt Count Seg Neutrophils % Seg Neuts % (Manual) Nucleated RBC % Seg Neutrophils # Seg Neutrophils # Man PT INR POC ABG pH POC ABG pCO2 POC ABG pO2 Sodium 148 H Potassium Chloride 110.7 H Carbon Dioxide BUN 30 H Creatinine 0.4 L Glucose 249 H POC Glucose 248 H 255 H Lactic Acid Calcium 7.4 L Magnesium 1.60 L Total Bilirubin AST ALT Alkaline Phosphatase Ammonia Troponin T C-Reactive Protein Total Protein Albumin Prealbumin TSH Crossmatch 09/19/16 09/19/16 09/19/16 00:09 04:45 05:11 WBC RBC Hgb Hct MCV MCH MCHC RDW Plt Count Seg Neutrophils % Seg Neuts % (Manual) Nucleated RBC % Seg Neutrophils # Seg Neutrophils # Man PT INR POC ABG pH POC ABG pCO2 POC ABG pO2 Sodium 146 H Potassium Chloride 110.8 H Carbon Dioxide BUN 34 H Creatinine 0.4 L Glucose 278 H POC Glucose 324 H 278 H Lactic Acid Calcium 7.3 L Magnesium Total Bilirubin AST ALT Alkaline Phosphatase Ammonia Troponin T C-Reactive Protein Total Protein Albumin Prealbumin TSH Crossmatch 09/19/16 09/19/16 09/19/16 11:12 12:09 17:10 WBC RBC Hgb Hct MCV MCH MCHC RDW Plt Count Seg Neutrophils % Seg Neuts % (Manual) Nucleated RBC % Seg Neutrophils # Seg Neutrophils # Man PT INR POC ABG pH POC ABG pCO2 POC ABG pO2 Sodium Potassium Chloride Carbon Dioxide BUN Creatinine Glucose POC Glucose 306 H 225 H 329 H Lactic Acid Calcium Magnesium Total Bilirubin AST ALT Alkaline Phosphatase Ammonia Troponin T C-Reactive Protein Total Protein Albumin Prealbumin TSH Crossmatch 09/19/16 09/20/16 09/20/16 23:34 04:52 05:00 WBC RBC Hgb Hct MCV MCH MCHC RDW Plt Count Seg Neutrophils % Seg Neuts % (Manual) Nucleated RBC % Seg Neutrophils # Seg Neutrophils # Man PT INR POC ABG pH POC ABG pCO2 POC ABG pO2 Sodium Potassium Chloride 108.6 H Carbon Dioxide BUN 35 H Creatinine 0.4 L Glucose 370 H POC Glucose 376 H 374 H Lactic Acid Calcium 7.3 L Magnesium Total Bilirubin AST ALT Alkaline Phosphatase Ammonia Troponin T C-Reactive Protein Total Protein Albumin Prealbumin TSH Crossmatch 09/20/16 09/20/16 09/20/16 11:18 17:39 23:49 WBC RBC Hgb Hct MCV MCH MCHC RDW Plt Count Seg Neutrophils % Seg Neuts % (Manual) Nucleated RBC % Seg Neutrophils # Seg Neutrophils # Man PT INR POC ABG pH POC ABG pCO2 POC ABG pO2 Sodium Potassium Chloride Carbon Dioxide BUN Creatinine Glucose POC Glucose 342 H 416 H 440 H Lactic Acid Calcium Magnesium Total Bilirubin AST ALT Alkaline Phosphatase Ammonia Troponin T C-Reactive Protein Total Protein Albumin Prealbumin TSH Crossmatch 09/21/16 09/21/16 09/21/16 04:58 05:15 05:15 WBC RBC 1.48 L Hgb 4.6 L* Hct 14.9 L* MCV 100 H MCH MCHC RDW 25.4 H Plt Count Seg Neutrophils % Seg Neuts % (Manual) Nucleated RBC % Seg Neutrophils # Seg Neutrophils # Man PT INR POC ABG pH POC ABG pCO2 POC ABG pO2 Sodium Potassium Chloride 107.5 H Carbon Dioxide 20 L BUN 45 H Creatinine 0.6 L Glucose 490 H POC Glucose > 500 H Lactic Acid Calcium 7.0 L Magnesium Total Bilirubin AST ALT Alkaline Phosphatase Ammonia Troponin T C-Reactive Protein Total Protein Albumin Prealbumin TSH Crossmatch 09/21/16 09/21/16 09/21/16 08:20 09:17 12:09 WBC RBC Hgb Hct MCV MCH MCHC RDW Plt Count Seg Neutrophils % Seg Neuts % (Manual) Nucleated RBC % Seg Neutrophils # Seg Neutrophils # Man PT INR POC ABG pH 7.464 H POC ABG pCO2 29.3 L POC ABG pO2 198 H Sodium Potassium Chloride Carbon Dioxide BUN Creatinine Glucose POC Glucose 248 H Lactic Acid Calcium Magnesium Total Bilirubin AST ALT Alkaline Phosphatase Ammonia Troponin T C-Reactive Protein Total Protein Albumin Prealbumin TSH Crossmatch See Detail 09/21/16 09/21/16 09/21/16 15:21 17:36 18:49 WBC RBC Hgb Hct MCV MCH MCHC RDW Plt Count Seg Neutrophils % Seg Neuts % (Manual) Nucleated RBC % Seg Neutrophils # Seg Neutrophils # Man PT INR POC ABG pH POC ABG pCO2 POC ABG pO2 Sodium Potassium Chloride Carbon Dioxide BUN Creatinine Glucose POC Glucose 403 H 437 H 482 H Lactic Acid Calcium Magnesium Total Bilirubin AST ALT Alkaline Phosphatase Ammonia Troponin T C-Reactive Protein Total Protein Albumin Prealbumin TSH Crossmatch 09/21/16 09/22/16 09/22/16 23:29 00:00 01:29 WBC 14.8 H RBC 2.94 L Hgb 9.1 L D Hct 27.5 L D MCV MCH MCHC RDW 16.7 H Plt Count Seg Neutrophils % Seg Neuts % (Manual) Nucleated RBC % Seg Neutrophils # Seg Neutrophils # Man PT INR POC ABG pH POC ABG pCO2 POC ABG pO2 Sodium Potassium Chloride Carbon Dioxide BUN Creatinine Glucose POC Glucose 311 H 288 H Lactic Acid Calcium Magnesium Total Bilirubin AST ALT Alkaline Phosphatase Ammonia Troponin T C-Reactive Protein Total Protein Albumin Prealbumin TSH Crossmatch 09/22/16 09/22/16 09/22/16 02:29 03:12 03:26 WBC RBC Hgb Hct MCV MCH MCHC RDW Plt Count Seg Neutrophils % Seg Neuts % (Manual) Nucleated RBC % Seg Neutrophils # Seg Neutrophils # Man PT INR POC ABG pH 7.460 H POC ABG pCO2 29.9 L POC ABG pO2 112 H Sodium Potassium Chloride Carbon Dioxide BUN Creatinine Glucose POC Glucose 261 H 239 H Lactic Acid Calcium Magnesium Total Bilirubin AST ALT Alkaline Phosphatase Ammonia Troponin T C-Reactive Protein Total Protein Albumin Prealbumin TSH Crossmatch 09/22/16 09/22/16 09/22/16 05:35 06:40 06:40 WBC 13.5 H RBC 3.18 L Hgb 9.5 L Hct 28.8 L MCV MCH MCHC RDW 16.2 H Plt Count Seg Neutrophils % Seg Neuts % (Manual) Nucleated RBC % Seg Neutrophils # Seg Neutrophils # Man PT INR POC ABG pH POC ABG pCO2 POC ABG pO2 Sodium 147 H Potassium 3.2 L D Chloride 112.3 H Carbon Dioxide BUN 49 H Creatinine 0.6 L Glucose 102 H POC Glucose 181 H Lactic Acid Calcium 7.5 L Magnesium Total Bilirubin AST ALT Alkaline Phosphatase Ammonia Troponin T C-Reactive Protein Total Protein Albumin Prealbumin TSH Crossmatch 09/22/16 09/22/16 09/22/16 07:16 18:03 20:05 WBC RBC Hgb Hct MCV MCH MCHC RDW Plt Count Seg Neutrophils % Seg Neuts % (Manual) Nucleated RBC % Seg Neutrophils # Seg Neutrophils # Man PT INR POC ABG pH POC ABG pCO2 POC ABG pO2 Sodium Potassium Chloride Carbon Dioxide BUN Creatinine Glucose POC Glucose 152 H 115 H 107 H Lactic Acid Calcium Magnesium Total Bilirubin AST ALT Alkaline Phosphatase Ammonia Troponin T C-Reactive Protein Total Protein Albumin Prealbumin TSH Crossmatch 09/22/16 09/22/16 09/23/16 21:00 23:55 02:02 WBC 13.8 H RBC 3.04 L Hgb 9.2 L Hct 28.0 L MCV MCH MCHC RDW 16.2 H Plt Count Seg Neutrophils % Seg Neuts % (Manual) Nucleated RBC % Seg Neutrophils # Seg Neutrophils # Man PT INR POC ABG pH POC ABG pCO2 POC ABG pO2 Sodium Potassium Chloride Carbon Dioxide BUN Creatinine Glucose POC Glucose 133 H 110 H Lactic Acid Calcium Magnesium Total Bilirubin AST ALT Alkaline Phosphatase Ammonia Troponin T C-Reactive Protein Total Protein Albumin Prealbumin TSH Crossmatch 09/23/16 09/23/16 09/23/16 04:45 04:45 05:36 WBC 13.6 H RBC 2.86 L Hgb 8.6 L Hct 26.4 L MCV MCH MCHC RDW 17.1 H Plt Count Seg Neutrophils % Seg Neuts % (Manual) Nucleated RBC % Seg Neutrophils # Seg Neutrophils # Man PT INR POC ABG pH POC ABG pCO2 POC ABG pO2 Sodium Potassium Chloride 109.2 H Carbon Dioxide 21 L BUN 43 H Creatinine 0.5 L Glucose 152 H POC Glucose 133 H Lactic Acid Calcium 7.7 L Magnesium Total Bilirubin AST ALT Alkaline Phosphatase Ammonia Troponin T C-Reactive Protein Total Protein Albumin Prealbumin TSH Crossmatch 09/23/16 09/23/16 09/23/16 07:42 11:55 13:26 WBC RBC Hgb Hct MCV MCH MCHC RDW Plt Count Seg Neutrophils % Seg Neuts % (Manual) Nucleated RBC % Seg Neutrophils # Seg Neutrophils # Man PT INR POC ABG pH POC ABG pCO2 POC ABG pO2 Sodium Potassium Chloride Carbon Dioxide BUN Creatinine Glucose POC Glucose 175 H 170 H 195 H Lactic Acid Calcium Magnesium Total Bilirubin AST ALT Alkaline Phosphatase Ammonia Troponin T C-Reactive Protein Total Protein Albumin Prealbumin TSH Crossmatch 09/23/16 09/23/16 09/24/16 17:37 21:54 02:56 WBC RBC Hgb Hct MCV MCH MCHC RDW Plt Count Seg Neutrophils % Seg Neuts % (Manual) Nucleated RBC % Seg Neutrophils # Seg Neutrophils # Man PT INR POC ABG pH POC ABG pCO2 POC ABG pO2 Sodium Potassium Chloride Carbon Dioxide BUN Creatinine Glucose POC Glucose 182 H 184 H 187 H Lactic Acid Calcium Magnesium Total Bilirubin AST ALT Alkaline Phosphatase Ammonia Troponin T C-Reactive Protein Total Protein Albumin Prealbumin TSH Crossmatch 09/24/16 09/24/16 09/24/16 05:00 05:00 05:22 WBC RBC 2.82 L Hgb 8.8 L Hct 27.0 L MCV MCH MCHC RDW 17.2 H Plt Count Seg Neutrophils % Seg Neuts % (Manual) Nucleated RBC % Seg Neutrophils # Seg Neutrophils # Man PT INR POC ABG pH POC ABG pCO2 POC ABG pO2 Sodium 148 H Potassium Chloride 115.0 H Carbon Dioxide 21 L BUN 38 H Creatinine 0.6 L Glucose 163 H POC Glucose 194 H Lactic Acid Calcium 7.9 L Magnesium Total Bilirubin AST ALT Alkaline Phosphatase Ammonia Troponin T C-Reactive Protein Total Protein Albumin Prealbumin TSH Crossmatch Allied health notes reviewed: RT
[2016-09-24] MEDS: LEVEMIR SUB-Q SCH (11:10)
--- NOTE | 2016-09-24 14:21 | XRay Report ---
Single view chest: Compared to 09/22/16. History: ET tube placement. Findings: Cardiomegaly. Trachea is midline. Tip of endotracheal tube and left PICC line in normal position. Mild pulmonary venous congestion. No consolidation or pleural effusion. Impression: Tip of an ET tube in normal position.
--- NOTE | 2016-09-24 16:28 | Progress Note ---
Assessment and Plan Patient is a 61-year-old morbid obese woman with a history of congestive heart failure, severe protein calorie malnutrition (bilateral adventist muscle severe wasting, hypothenar muscle wasting) with BMI of 81.6, functional quadriplegia, type 2 diabetes mellitus, hypertension, multiple skin breakdown between legs and thighs who presented to the hospital via EMS with AMS. 2D echocardiogram with ejection fraction of 50-55%. During the past admission, patient was recommended for placement but refused. On presentation to ED, patient was felt to be unable to maintain her airways and intubated the ER since 08/29/16. 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, poa: supportative care, Unable to get CT head due to weight issues -Acute on chronic diastolic congestive heart failure: treated with diuresis -Acute on chronic respiratory failure, intubated > 96 hours -Septic shock off IV solucorticef and midodrine -Severe anemia s/p blood transfusion: monitor cbc closely altered -Paroxysmal atrial fibrillation -Non-ST elevated TX type 2: Conservative management -Acute on chronic kidney disease III, likely secondary to vasomotor nephropathy- POA -Transaminitis-elevated alkaline phosphatase and AST: continue to monitor -Severe protein calorie malnutrition albumin 1.2 -Morbid obesity BMI 81.6 -Mulitple PRESSURE ULCERS-POA: consulted wound care -uncontrolled dm: on ssi, s/p insulin drip -Acute anemia with drop in HCT s/p 5 units of PRBC transfused so far. Ordered 2 more units. - hypernatremia, will monitor with repeat BMP, ivf -Dvt prophylaxis: sq lovenox per [facility] Disposition: LTAC declined, case management is working on plan DNR 09/04/16 , boyfriendTad agreed to blood transfusion, hgb is 6.0 will transfuse 2 units==>h/h steady, continue to monitor 09/05/16: Overnight was very eventful. New issue: Status epilepticus most likely due to anoxic brain injury, poa. She is back on 8 mcg of Levophed, which had weaned off up to the point of seizure activity Patient had status epilepticus before receiving blood transfusions. She was given multiple doses of Ativan and was still having breakthrough seizures. She was given phenobarbital and Dilantin but still having seizures. I started propofol drip which is helping. She still on IV Ativan drip also. Difficult family dynamics: Her son (she has multiple children), Srikanth and sister Leanne were at her bedside and well as her boyfriend who is not her legal , which he told me. They are upset because they didn't know patient was in the hospital. It appears the gentleman in the room is her boyfriend and not her legal He also did not notify the family the patient was here. That gentleman who is her boyfriend dropped the patient's wallet and our security called the number inside the wallet which was patient's mother's number and this is how the family found out that patient was in the hospital. I was told by RN, that patient has no , patient has 7 siblings and they are estranged from mother. No legal POA but sister Leanne is active in sister's life. Her boyfriend name is Tad Vieyra and he has consistently been at her beside, holding her hand and being supportive. 09/10/16 (resumed care): Trying to get to LTAC, still on 2 mcg of Levaphed but not sedated==>?Significant anoxic brain injury most likely poa, Ethic committee consulted because some family members want to withdraw. 09/11/16, Trach aspirated GNR, continue abx pending identification, off levaphed today. Trying to get to LTAC, they can trach her there. Only [facility] takes her insurance 09/12/16 Trach aspirate still pending, new issue of hypothermia, responded to [facility] [employer], tube feeding low rate due to high residuals, abd xray unremarkable. Potassium replaced. No restraints needs, no sedation needed, poor prognosis 09/15/16(resumed care): new issue seizure, gave 1mg iv ativan x 1. Awaiting to go to [facility], they want to trach and peg when she gets there. 09/16-11/26: cpm, no new seizures. 09/18/16: [facility] did not accept patient, so trach and peg here. Patient has been intubated since 08/29/16. 09/19/16 no new issue, trying to wean 09/20/16: d/w boyfriend at bedside. He believes she is having purposefully spontaneous movements, like blinking. Heart rate went up to 150s but spontaneously went down without any medications given. 09/21/16: Overnight she became hypotensive, Levophed drip restarted at 12mcg, hgb found to be 4.6, blood transfusions ordered, hyperglycemic worse, so Levemir increased and then placed to insulin drip, She has apneic breathing on vent, POOR sign. 09/22/16: no new issue, off levophed and insulin drip this am. Cont current supportive care 09/23/16: BP at high 90s, still off levophed, but may need to restart if BP continue to be low. On NG suction. GI advised medical mx for anemia, no plan for endoscopy now. discussed with CC attending, plan for trach and PEG soon, She is on protonix drip. H and H remained stable. 09/24/16: back on levophed drip, GS to schedule trach/PEG. Subjective Date of service: 09/24/16 Principal diagnosis: Acute Hypoxemic Hypercapnic Resp Failure; Severe Sepsis Interval history: Patient seen and examined. Follow up on respiratory failure. Patient still intubated. Boy friend at bedside. She appears still unresponsive. sister at bedside, updated, she is back on levophed Objective - Exam Narrative Exam: GEN: Critically ill, morbid obese BMI 81.6, intubated, HEENT: Pupils are pinpoint and reactive, ET tube in place NECK: SUPPLE, NO THYROMEGALY, NO JVD, NO LAD CVS: regular irregular NORMAL S1S2 LUNGS/CHEST: TA B, NORMAL CHEST EXPANSION B, GOOD AIR ENTRY B ABD: SOFT, NONDISTENDED GBS, NO REBOUND OR GUARDING NEURO: doesn't follow commands PSY: awake with eyes open Extremities: 3+ edema - Constitutional Vitals: Vital Signs - 12hr 09/24/16 09/24/16 09/24/16 04:30 04:40 04:50 Temperature Pulse Rate 106 H 72 192 H Pulse Rate [ Anterior Bilateral Throughout] Respiratory 26 H 25 H 27 H Rate Respiratory Rate [Anterior Bilateral Throughout] Blood Pressure 112/46 93/55 93/55 O2 Sat by Pulse 95 100 93 Oximetry 09/24/16 09/24/16 09/24/16 05:00 05:10 05:20 Temperature Pulse Rate 200 H 85 89 Pulse Rate [ Anterior Bilateral Throughout] Respiratory 28 H 25 H 27 H Rate Respiratory Rate [Anterior Bilateral Throughout] Blood Pressure 119/44 119/44 119/44 O2 Sat by Pulse 100 100 100 Oximetry 09/24/16 09/24/16 09/24/16 05:30 05:40 05:50 Temperature Pulse Rate 72 68 72 Pulse Rate [ Anterior Bilateral Throughout] Respiratory 20 25 H 19 Rate Respiratory Rate [Anterior Bilateral Throughout] Blood Pressure 119/35 119/44 119/44 O2 Sat by Pulse 100 100 100 Oximetry 09/24/16 09/24/16 09/24/16 06:00 06:10 06:20 Temperature Pulse Rate 85 83 81 Pulse Rate [ Anterior Bilateral Throughout] Respiratory 25 H 27 H 27 H Rate Respiratory Rate [Anterior Bilateral Throughout] Blood Pressure 119/44 140/38 140/38 O2 Sat by Pulse 100 100 100 Oximetry 09/24/16 09/24/16 09/24/16 06:30 06:40 06:50 Temperature Pulse Rate 84 83 75 Pulse Rate [ Anterior Bilateral Throughout] Respiratory 27 H 26 H 22 Rate Respiratory Rate [Anterior Bilateral Throughout] Blood Pressure 138/52 138/52 138/52 O2 Sat by Pulse 100 82 L 100 Oximetry 09/24/16 09/24/16 09/24/16 07:00 07:10 07:20 Temperature Pulse Rate 87 78 64 Pulse Rate [ Anterior Bilateral Throughout] Respiratory 27 H 26 H 28 H Rate Respiratory Rate [Anterior Bilateral Throughout] Blood Pressure 138/52 134/53 134/53 O2 Sat by Pulse 100 100 100 Oximetry 09/24/16 09/24/16 09/24/16 07:30 07:40 07:50 Temperature Pulse Rate 84 143 H 91 H Pulse Rate [ Anterior Bilateral Throughout] Respiratory 28 H 26 H 28 H Rate Respiratory Rate [Anterior Bilateral Throughout] Blood Pressure 135/59 135/59 135/59 O2 Sat by Pulse 87 100 100 Oximetry 09/24/16 09/24/16 09/24/16 08:00 08:10 08:20 Temperature 98.7 F Pulse Rate 90 89 90 Pulse Rate [ Anterior Bilateral Throughout] Respiratory 27 H 28 H 26 H Rate Respiratory Rate [Anterior Bilateral Throughout] Blood Pressure 140/56 140/56 140/56 O2 Sat by Pulse 90 100 100 Oximetry 09/24/16 09/24/16 09/24/16 08:30 08:40 08:50 Temperature Pulse Rate 88 86 95 H Pulse Rate [ Anterior Bilateral Throughout] Respiratory 22 26 H 27 H Rate Respiratory Rate [Anterior Bilateral Throughout] Blood Pressure 140/56 109/81 109/81 O2 Sat by Pulse 100 100 100 Oximetry 09/24/16 09/24/16 09/24/16 09:00 09:10 09:20 Temperature Pulse Rate 93 H 108 H 94 H Pulse Rate [ Anterior Bilateral Throughout] Respiratory 26 H 24 17 Rate Respiratory Rate [Anterior Bilateral Throughout] Blood Pressure 109/81 138/31 138/31 O2 Sat by Pulse 100 100 100 Oximetry 09/24/16 09/24/16 09/24/16 09:25 09:28 09:30 Temperature Pulse Rate 96 H 96 H Pulse Rate [ 96 H Anterior Bilateral Throughout] Respiratory 22 26 H Rate Respiratory 23 Rate [Anterior Bilateral Throughout] Blood Pressure 138/31 118/61 O2 Sat by Pulse 99 99 Oximetry 09/24/16 09/24/16 09/24/16 09:40 09:50 10:00 Temperature Pulse Rate 98 H 83 98 H Pulse Rate [ Anterior Bilateral Throughout] Respiratory 30 H 27 H 30 H Rate Respiratory Rate [Anterior Bilateral Throughout] Blood Pressure 118/61 118/61 105/54 O2 Sat by Pulse 100 100 100 Oximetry 09/24/16 09/24/16 09/24/16 10:10 10:19 10:20 Temperature Pulse Rate 92 H 97 H Pulse Rate [ 96 H Anterior Bilateral Throughout] Respiratory 29 H 29 H Rate Respiratory 23 Rate [Anterior Bilateral Throughout] Blood Pressure 105/54 103/61 O2 Sat by Pulse 99 100 Oximetry 09/24/16 09/24/16 09/24/16 10:30 10:40 10:50 Temperature Pulse Rate 93 H 92 H 89 Pulse Rate [ Anterior Bilateral Throughout] Respiratory 26 H 28 H 26 H Rate Respiratory Rate [Anterior Bilateral Throughout] Blood Pressure 103/61 116/58 112/54 O2 Sat by Pulse 100 100 100 Oximetry 09/24/16 09/24/16 09/24/16 11:00 11:10 11:20 Temperature Pulse Rate 93 H 97 H 85 Pulse Rate [ Anterior Bilateral Throughout] Respiratory 27 H 28 H 27 H Rate Respiratory Rate [Anterior Bilateral Throughout] Blood Pressure 112/56 112/56 98/50 O2 Sat by Pulse 100 100 100 Oximetry 09/24/16 09/24/16 09/24/16 11:30 11:40 11:45 Temperature Pulse Rate 75 73 81 Pulse Rate [ Anterior Bilateral Throughout] Respiratory 25 H 28 H 29 H Rate Respiratory Rate [Anterior Bilateral Throughout] Blood Pressure 98/50 101/33 O2 Sat by Pulse 99 100 100 Oximetry 09/24/16 09/24/16 09/24/16 11:50 12:00 12:10 Temperature 98 F Pulse Rate 80 80 75 Pulse Rate [ Anterior Bilateral Throughout] Respiratory 29 H 27 H 26 H Rate Respiratory Rate [Anterior Bilateral Throughout] Blood Pressure 99/34 108/45 108/45 O2 Sat by Pulse 91 100 100 Oximetry 09/24/16 09/24/16 09/24/16 12:20 12:30 12:40 Temperature Pulse Rate 82 82 77 Pulse Rate [ Anterior Bilateral Throughout] Respiratory 25 H 30 H 25 H Rate Respiratory Rate [Anterior Bilateral Throughout] Blood Pressure 125/62 113/58 113/58 O2 Sat by Pulse 99 100 100 Oximetry 09/24/16 09/24/16 09/24/16 12:50 13:00 13:10 Temperature Pulse Rate 82 81 85 Pulse Rate [ Anterior Bilateral Throughout] Respiratory 27 H 25 H 23 Rate Respiratory Rate [Anterior Bilateral Throughout] Blood Pressure 109/59 121/46 121/46 O2 Sat by Pulse 100 100 100 Oximetry 09/24/16 09/24/16 09/24/16 13:20 13:30 13:40 Temperature Pulse Rate 80 95 H 82 Pulse Rate [ Anterior Bilateral Throughout] Respiratory 25 H 32 H 28 H Rate Respiratory Rate [Anterior Bilateral Throughout] Blood Pressure 114/59 111/75 111/75 O2 Sat by Pulse 100 93 100 Oximetry 09/24/16 09/24/16 09/24/16 13:50 14:00 14:10 Temperature Pulse Rate 80 82 80 Pulse Rate [ Anterior Bilateral Throughout] Respiratory 18 27 H 22 Rate Respiratory Rate [Anterior Bilateral Throughout] Blood Pressure 128/50 111/57 111/57 O2 Sat by Pulse 100 100 100 Oximetry 09/24/16 09/24/16 09/24/16 14:20 14:30 14:40 Temperature Pulse Rate 84 84 82 Pulse Rate [ Anterior Bilateral Throughout] Respiratory 25 H 26 H 24 Rate Respiratory Rate [Anterior Bilateral Throughout] Blood Pressure 128/96 117/52 117/52 O2 Sat by Pulse 100 100 100 Oximetry 09/24/16 09/24/16 14:50 15:00 Temperature Pulse Rate 82 82 Pulse Rate [ Anterior Bilateral Throughout] Respiratory 24 25 H Rate Respiratory Rate [Anterior Bilateral Throughout] Blood Pressure 109/61 133/64 O2 Sat by Pulse 100 100 Oximetry - Labs CBC & Chem 7: 09/24/16 05:00 09/24/16 05:00 Labs: Abnormal lab results 09/21/16 09/23/16 09/23/16 Range/Units 08:20 17:37 21:54 RBC (3.65-5.03) M/mm3 Hgb (10.1-14.3) gm/dl Hct (30.3-42.9) % RDW (13.2-15.2) % Sodium (137-145) mmol/L Chloride (98-107) mmol/L Carbon Dioxide (22-30) mmol/L BUN (7-17) mg/dL Creatinine (0.7-1.2) mg/dL Glucose (65-100) mg/dL POC Glucose 182 H 184 H (70-105) Calcium (8.4-10.2) mg/dL Crossmatch See Detail 09/24/16 09/24/16 09/24/16 Range/Units 02:56 05:00 05:00 RBC 2.82 L (3.65-5.03) M/mm3 Hgb 8.8 L (10.1-14.3) gm/dl Hct 27.0 L (30.3-42.9) % RDW 17.2 H (13.2-15.2) % Sodium 148 H (137-145) mmol/L Chloride 115.0 H (98-107) mmol/L Carbon Dioxide 21 L (22-30) mmol/L BUN 38 H (7-17) mg/dL Creatinine 0.6 L (0.7-1.2) mg/dL Glucose 163 H (65-100) mg/dL POC Glucose 187 H (70-105) Calcium 7.9 L (8.4-10.2) mg/dL Crossmatch 09/24/16 09/24/16 09/24/16 Range/Units 05:22 11:02 13:55 RBC (3.65-5.03) M/mm3 Hgb (10.1-14.3) gm/dl Hct (30.3-42.9) % RDW (13.2-15.2) % Sodium (137-145) mmol/L Chloride (98-107) mmol/L Carbon Dioxide (22-30) mmol/L BUN (7-17) mg/dL Creatinine (0.7-1.2) mg/dL Glucose (65-100) mg/dL POC Glucose 194 H 210 H 182 H (70-105) Calcium (8.4-10.2) mg/dL Crossmatch
[2016-09-25] MEDS: LOPRESSOR PO SCH ×5 (01:20→22:38)
[2016-09-25] MEDS: LEVOPHED DRIP 4 MG/NS 250 ML 4 MG/250 ML BAG IV SCH (01:51)
[2016-09-25] MEDS: NOVOLOG SUB-Q SCH ×6 (02:00→22:38)
[2016-09-25] MEDS: DUONEB 0.5 MG-3 MG/3 ML SOLN IH SCH ×4 (02:00→19:46)
[2016-09-25] MEDS: PROAMATINE PO SCH ×3 (06:00→22:39)
--- NOTE | 2016-09-25 09:17 | Progress Note ---
Assessment and Plan Once she is hemodynamically stable off of pressors will schedule Trach and PEG. Will recheck on her status on Wednesday. Subjective Date of service: 09/25/16 Narrative: She is back on Levophed again for hypotension Objective Vital Signs - 12hr 09/24/16 09/24/16 09/24/16 21:20 21:30 21:40 Temperature Pulse Rate 81 80 76 Pulse Rate [ Anterior Bilateral Throughout] Pulse Rate [ From Monitor] Respiratory 26 H 26 H 25 H Rate Respiratory Rate [Anterior Bilateral Throughout] Blood Pressure 111/61 104/51 104/51 O2 Sat by Pulse 100 100 92 Oximetry 09/24/16 09/24/16 09/24/16 21:50 22:00 22:10 Temperature Pulse Rate 83 83 74 Pulse Rate [ Anterior Bilateral Throughout] Pulse Rate [ From Monitor] Respiratory 25 H 25 H 25 H Rate Respiratory Rate [Anterior Bilateral Throughout] Blood Pressure 125/52 139/52 139/52 O2 Sat by Pulse 100 100 100 Oximetry 09/24/16 09/24/16 09/24/16 22:20 22:30 22:38 Temperature Pulse Rate 72 87 83 Pulse Rate [ Anterior Bilateral Throughout] Pulse Rate [ From Monitor] Respiratory 25 H 26 H 24 Rate Respiratory Rate [Anterior Bilateral Throughout] Blood Pressure 119/50 134/62 134/62 O2 Sat by Pulse 100 100 100 Oximetry 09/24/16 09/24/16 09/24/16 22:40 22:50 23:00 Temperature Pulse Rate 82 84 88 Pulse Rate [ Anterior Bilateral Throughout] Pulse Rate [ From Monitor] Respiratory 26 H 25 H 25 H Rate Respiratory Rate [Anterior Bilateral Throughout] Blood Pressure 134/62 118/34 O2 Sat by Pulse 100 100 100 Oximetry 09/24/16 09/24/16 09/24/16 23:10 23:20 23:30 Temperature Pulse Rate 84 89 86 Pulse Rate [ Anterior Bilateral Throughout] Pulse Rate [ From Monitor] Respiratory 25 H 27 H 26 H Rate Respiratory Rate [Anterior Bilateral Throughout] Blood Pressure 118/34 125/50 122/58 O2 Sat by Pulse 100 100 100 Oximetry 09/24/16 09/24/16 09/24/16 23:40 23:50 23:55 Temperature Pulse Rate 88 83 80 Pulse Rate [ Anterior Bilateral Throughout] Pulse Rate [ From Monitor] Respiratory 22 26 H Rate Respiratory Rate [Anterior Bilateral Throughout] Blood Pressure 122/58 104/56 104/56 O2 Sat by Pulse 100 100 100 Oximetry 09/25/16 09/25/16 09/25/16 00:00 00:10 00:20 Temperature 98.4 F Pulse Rate 83 77 47 L Pulse Rate [ Anterior Bilateral Throughout] Pulse Rate [ 87 From Monitor] Respiratory 26 H 21 25 H Rate Respiratory Rate [Anterior Bilateral Throughout] Blood Pressure 102/66 102/66 111/56 O2 Sat by Pulse 100 100 100 Oximetry 09/25/16 09/25/16 09/25/16 00:30 00:40 00:50 Temperature Pulse Rate 74 76 74 Pulse Rate [ Anterior Bilateral Throughout] Pulse Rate [ From Monitor] Respiratory 25 H 25 H 22 Rate Respiratory Rate [Anterior Bilateral Throughout] Blood Pressure 115/46 115/46 119/46 O2 Sat by Pulse 100 100 100 Oximetry 09/25/16 09/25/16 09/25/16 01:00 01:10 01:20 Temperature Pulse Rate 76 88 73 Pulse Rate [ Anterior Bilateral Throughout] Pulse Rate [ From Monitor] Respiratory 19 25 H 25 H Rate Respiratory Rate [Anterior Bilateral Throughout] Blood Pressure 122/48 122/48 120/61 O2 Sat by Pulse 100 100 100 Oximetry 09/25/16 09/25/16 09/25/16 01:30 01:40 01:50 Temperature Pulse Rate 90 74 79 Pulse Rate [ Anterior Bilateral Throughout] Pulse Rate [ From Monitor] Respiratory 25 H 26 H 25 H Rate Respiratory Rate [Anterior Bilateral Throughout] Blood Pressure 110/62 110/62 126/41 O2 Sat by Pulse 100 100 100 Oximetry 09/25/16 09/25/16 09/25/16 02:00 02:10 02:11 Temperature Pulse Rate 85 86 Pulse Rate [ 80 83 Anterior Bilateral Throughout] Pulse Rate [ From Monitor] Respiratory 26 H 25 H Rate Respiratory 25 H 25 H Rate [Anterior Bilateral Throughout] Blood Pressure 132/30 132/30 O2 Sat by Pulse 100 100 Oximetry 09/25/16 09/25/16 09/25/16 02:20 02:30 02:40 Temperature Pulse Rate 76 82 88 Pulse Rate [ Anterior Bilateral Throughout] Pulse Rate [ From Monitor] Respiratory 25 H 26 H 26 H Rate Respiratory Rate [Anterior Bilateral Throughout] Blood Pressure 138/58 148/34 148/34 O2 Sat by Pulse 100 100 100 Oximetry 09/25/16 09/25/16 09/25/16 02:50 03:00 03:10 Temperature Pulse Rate 91 H 84 84 Pulse Rate [ Anterior Bilateral Throughout] Pulse Rate [ From Monitor] Respiratory 26 H 25 H 25 H Rate Respiratory Rate [Anterior Bilateral Throughout] Blood Pressure 142/49 137/37 137/37 O2 Sat by Pulse 100 100 100 Oximetry 09/25/16 09/25/16 09/25/16 03:20 03:30 03:40 Temperature Pulse Rate 69 85 85 Pulse Rate [ Anterior Bilateral Throughout] Pulse Rate [ From Monitor] Respiratory 22 28 H 27 H Rate Respiratory Rate [Anterior Bilateral Throughout] Blood Pressure 129/58 129/58 115/69 O2 Sat by Pulse 100 90 95 Oximetry 09/25/16 09/25/16 09/25/16 03:50 04:00 04:10 Temperature 98.8 F Pulse Rate 59 L 81 71 Pulse Rate [ Anterior Bilateral Throughout] Pulse Rate [ 97 H From Monitor] Respiratory 25 H 25 H 25 H Rate Respiratory Rate [Anterior Bilateral Throughout] Blood Pressure 133/67 128/63 128/63 O2 Sat by Pulse 100 100 100 Oximetry 09/25/16 09/25/16 09/25/16 04:20 04:24 04:30 Temperature Pulse Rate 75 83 72 Pulse Rate [ Anterior Bilateral Throughout] Pulse Rate [ From Monitor] Respiratory 25 H 25 H Rate Respiratory Rate [Anterior Bilateral Throughout] Blood Pressure 108/52 128/63 121/55 O2 Sat by Pulse 100 100 100 Oximetry 09/25/16 09/25/16 09/25/16 04:40 04:50 05:00 Temperature Pulse Rate 85 63 77 Pulse Rate [ Anterior Bilateral Throughout] Pulse Rate [ From Monitor] Respiratory 25 H 25 H 25 H Rate Respiratory Rate [Anterior Bilateral Throughout] Blood Pressure 121/55 100/64 123/54 O2 Sat by Pulse 100 100 100 Oximetry 09/25/16 09/25/16 09/25/16 05:10 05:20 05:30 Temperature Pulse Rate 81 109 H Pulse Rate [ Anterior Bilateral Throughout] Pulse Rate [ From Monitor] Respiratory 25 H 21 Rate Respiratory Rate [Anterior Bilateral Throughout] Blood Pressure 123/54 115/59 115/59 O2 Sat by Pulse 100 100 100 Oximetry 09/25/16 09/25/16 09/25/16 05:40 05:50 06:00 Temperature Pulse Rate 88 Pulse Rate [ Anterior Bilateral Throughout] Pulse Rate [ From Monitor] Respiratory Rate Respiratory Rate [Anterior Bilateral Throughout] Blood Pressure 115/59 115/59 114/88 O2 Sat by Pulse 100 95 Oximetry 09/25/16 09/25/16 09/25/16 06:03 06:10 06:20 Temperature Pulse Rate 81 76 87 Pulse Rate [ Anterior Bilateral Throughout] Pulse Rate [ From Monitor] Respiratory 16 26 H 25 H Rate Respiratory Rate [Anterior Bilateral Throughout] Blood Pressure 107/88 O2 Sat by Pulse 100 100 Oximetry 09/25/16 09/25/16 09/25/16 06:30 06:40 06:50 Temperature Pulse Rate 88 88 87 Pulse Rate [ Anterior Bilateral Throughout] Pulse Rate [ From Monitor] Respiratory 27 H 26 H 23 Rate Respiratory Rate [Anterior Bilateral Throughout] Blood Pressure 114/88 114/88 114/88 O2 Sat by Pulse 99 100 100 Oximetry 09/25/16 09/25/16 09/25/16 07:00 07:10 07:20 Temperature Pulse Rate 89 84 86 Pulse Rate [ Anterior Bilateral Throughout] Pulse Rate [ From Monitor] Respiratory 26 H 17 26 H Rate Respiratory Rate [Anterior Bilateral Throughout] Blood Pressure 152/107 152/107 152/107 O2 Sat by Pulse 100 100 100 Oximetry 09/25/16 09/25/16 09/25/16 07:30 07:34 07:40 Temperature Pulse Rate 95 H 90 95 H Pulse Rate [ 90 Anterior Bilateral Throughout] Pulse Rate [ From Monitor] Respiratory 26 H 24 Rate Respiratory 25 H Rate [Anterior Bilateral Throughout] Blood Pressure 154/76 152/107 154/76 O2 Sat by Pulse 100 100 100 Oximetry 09/25/16 09/25/16 09/25/16 07:49 07:50 08:00 Temperature Pulse Rate 93 H 85 89 Pulse Rate [ 93 H Anterior Bilateral Throughout] Pulse Rate [ From Monitor] Respiratory 31 H 21 13 Rate Respiratory 31 H Rate [Anterior Bilateral Throughout] Blood Pressure 156/75 156/75 148/94 O2 Sat by Pulse 100 100 100 Oximetry 09/25/16 09/25/16 09/25/16 08:10 08:20 08:30 Temperature Pulse Rate 89 94 H 84 Pulse Rate [ Anterior Bilateral Throughout] Pulse Rate [ From Monitor] Respiratory 29 H 30 H 22 Rate Respiratory Rate [Anterior Bilateral Throughout] Blood Pressure 148/94 148/94 133/109 O2 Sat by Pulse 100 100 100 Oximetry - General physical appearance obese - Neck trachea midline - Respiratory other (FiO2 25%) - Abdomen soft - Neurologic other (Unresponsive) - Labs 09/24/16 05:00 09/24/16 05:00
[2016-09-25] MEDS: FERROUS SULFATE PO SCH (10:02)
[2016-09-25] MEDS: SYNTHROID PO SCH (10:02)
[2016-09-25] MEDS: PROTONIX PO SCH (10:02)
[2016-09-25] MEDS: LEVEMIR SUB-Q SCH (10:03)
[2016-09-25] MEDS: FOLVITE PO SCH (10:03)
[2016-09-25] MEDS: KEPPRA PO SCH ×2 (10:04→22:37)
[2016-09-25] MEDS: POTASSIUM CHLORIDE FEEDTUBE SCH (10:07)
[2016-09-25 10:08] LABS: Hematocrit 26.2 % (30.3-42.9); Hemoglobin 8.7 gm/dl (10.1-14.3); Mean Corpuscular HGB Conc 33 % (30-34); Mean Corpuscular Hemoglobin 31 pg (28-32); Mean Corpuscular Volume 95 fl (79-97); Platelet Count 187 K/mm3 (140-440); Red Blood Count 2.76 M/mm3 (3.65-5.03); Red Cell Distribution Width 17.3 % (13.2-15.2); White Blood Count 6.7 K/mm3 (4.5-11.0)
[2016-09-25 10:28] LABS: Anion Gap 14 mmol/L; Blood Urea Nitrogen 34 mg/dL (7-17); Calcium 7.9 mg/dL (8.4-10.2); Carbon Dioxide 24 mmol/L (22-30); Chloride 115.6 mmol/L (98-107); Glucose 168 mg/dL (65-100); Sodium 150 mmol/L (137-145)
--- NOTE | 2016-09-25 11:46 | Progress Note ---
Assessment and Plan - Patient Problems (1) HCAP (healthcare-associated pneumonia) Current Visit: Yes Status: Acute Plan to address problem: 1. Resolved HCAP. Patient remains stable off antibiotics. 2. I will sign off. Please call again if there are additional questions or concerns. Subjective Date of service: 09/25/16 Principal diagnosis: Acute Hypoxemic Hypercapnic Resp Failure; Severe Sepsis Interval history: Remains afebrile in ICU. Stable off antibiotics. Objective - Constitutional Vitals: Vital Signs Temp Pulse Resp BP Pulse Ox 97.5 F L 74 26 H 129/104 100 09/25/16 08:00 09/25/16 10:51 09/25/16 10:51 09/25/16 10:51 09/25/16 10:51 Temperature -Last 24 Hours Temperature 97.5 F Temperature 98.8 F Temperature 98.4 F Temperature 97.4 F Temperature 98.4 F Temperature 98 F General appearance: Present: no acute distress, obese, other (brief eye-opening to voice) - EENT ENT: other (ET and NG tubes in place) - Respiratory Respiratory effort: other (FiO2 25%) Respiratory: bilateral: CTA, negative: rales, wheezing - Cardiovascular Rhythm: other (occasionally irregular) Heart Sounds: Present: S1 & S2 Extremity abnormal: edema (trace bilaterally) - Gastrointestinal General gastrointestinal: Present: soft, non-distended - Genitourinary Female genitourinary: other (Jose with normal-appearing urine) - Integumentary Integumentary: no jaundice, no rash - Labs CBC & Chem 7: 09/25/16 09:48 09/25/16 09:48 Labs: Abnormal lab results 09/24/16 09/24/16 09/25/16 Range/Units 13:55 17:37 02:15 RBC (3.65-5.03) M/mm3 Hgb (10.1-14.3) gm/dl Hct (30.3-42.9) % RDW (13.2-15.2) % Sodium (137-145) mmol/L Chloride (98-107) mmol/L BUN (7-17) mg/dL Creatinine (0.7-1.2) mg/dL Glucose (65-100) mg/dL POC Glucose 182 H 169 H 139 H (70-105) Calcium (8.4-10.2) mg/dL 09/25/16 09/25/16 09/25/16 Range/Units 05:14 09:48 09:48 RBC 2.76 L (3.65-5.03) M/mm3 Hgb 8.7 L (10.1-14.3) gm/dl Hct 26.2 L (30.3-42.9) % RDW 17.3 H (13.2-15.2) % Sodium 150 H (137-145) mmol/L Chloride 115.6 H (98-107) mmol/L BUN 34 H (7-17) mg/dL Creatinine 0.4 L (0.7-1.2) mg/dL Glucose 168 H (65-100) mg/dL POC Glucose 151 H (70-105) Calcium 7.9 L (8.4-10.2) mg/dL Microbiology 09/09/16 19:23 Peripheral/Venous Blood Culture - Final NO GROWTH AFTER 5 DAYS 09/09/16 18:10 Peripheral/Venous Blood Culture - Final NO GROWTH AFTER 5 DAYS 09/09/16 13:40 Tracheal Aspirate Sputum Culture - Final Klebsiella Pneumoniae 08/29/16 17:40 Peripheral/Venous Blood Culture - Final NO GROWTH AFTER 5 DAYS 08/29/16 17:45 Peripheral/Venous Blood Culture - Final NO GROWTH AFTER 5 DAYS 09/03/16 18:00 Stool Stool Occult Blood (JEANNETTE) - Final 08/29/16 15:37 Urine,Catheterized - Indwelling Catheter Urine Culture - Final NO GROWTH AFTER 48 HOURS 08/29/16 Unknown Tracheal Aspirate Sputum Culture - Final Active Medications Acetaminophen (Tylenol) 650 mg PO Q4H PRN PRN Reason: Pain MILD(1-3)/Fever >100.5/DUBOSE Albuterol (Proventil) 2.5 mg IH Q3HRT PRN PRN Reason: Shortness Of Breath Albuterol/Ipratropium (Duoneb 0.5 Mg-3 Mg/3 Ml Soln) 1 ampul IH Q6HRT KATHY Last Admin: 09/25/16 07:39 Dose: 1 ampul Lipase/Protease/Amylase (Pancreaze Dr 10,500 Unit) 1 each FEEDTUBE PRN PRN PRN Reason: For Clogged Feeding Tube Bisacodyl (Dulcolax) 10 mg [place] QDAY PRN PRN Reason: Constipation unrelieved by MOM Dextrose (D50w (25gm)) 0 ml IV PRN PRN PRN Reason: Hypoglycemia Ferrous Sulfate (Ferrous Sulfate) 300 mg PO QDAY [facility] Last Admin: 09/25/16 10:02 Dose: 300 mg Folic Acid (Folvite) 1 mg PO DAILY [facility] Last Admin: 09/25/16 10:03 Dose: 1 mg Hydrophilic Ointment (Vaseline Lip Therapy) 1 applic TP Q2HR PRN PRN Reason: Dry Lips Norepinephrine (Levophed Drip 4 Mg/Ns 250 Ml) 4 mg in 250 mls @ 7.5 mls/hr IV TITR KATHY; 2 MCG/MIN PRN Reason: Protocol Last Admin: 09/25/16 01:51 Dose: 1 mcg/min, 3.75 mls/hr Insulin Aspart (Novolog) 0 units SUB-Q Q4HR KATHY PRN Reason: Protocol Last Admin: 09/25/16 10:02 Dose: 1 units Insulin Detemir (Levemir) 10 units SUB-Q DAILY [facility] Last Admin: 09/25/16 10:03 Dose: 10 units Lactulose (Cephulac) 20 gm PO Q6H PRN PRN Reason: Constipation Levetiracetam (Keppra) 750 mg PO BID [facility] Last Admin: 09/25/16 10:04 Dose: 750 mg Levothyroxine Sodium (Synthroid) 75 mcg PO DAILY [facility] Last Admin: 09/25/16 10:02 Dose: 75 mcg Lorazepam (Ativan) 1 mg IV Q5MIN PRN PRN Reason: Seizures Last Admin: 09/15/16 17:37 Dose: 1 mg Magnesium Hydroxide (Milk Of Magnesia) 30 ml PO Q4H PRN PRN Reason: Constipation Metoprolol Tartrate (Lopressor) 25 mg PO Q6H [facility] Last Admin: 09/25/16 06:00 Dose: 25 mg Midodrine (Proamatine) 5 mg PO Q8HR [facility] Last Admin: 09/25/16 06:00 Dose: 5 mg Multi-Ingred Cream/Lotion/Oil/Oint (Artificial Tears Ophth Oint) 1 applic OU Q4HR PRN PRN Reason: Dry Eye(s) Last Admin: 09/06/16 06:39 Dose: 1 applic Ondansetron HCl (Zofran) 4 mg IV Q8H PRN PRN Reason: N/V unrelieved by Regderrick Pantoprazole (Protonix) 40 mg PO QDAY [facility] Last Admin: 09/25/16 10:02 Dose: 40 mg Potassium Chloride (Potassium Chloride) 20 meq FEEDTUBE QDAY [facility] Last Admin: 09/25/16 10:07 Dose: 20 meq Simple Syrup (Simple Syrup) 15 ml FEEDTUBE PRN PRN PRN Reason: Hypoglycemia Simple Syrup (Simple Syrup) 30 ml FEEDTUBE PRN PRN PRN Reason: Hypoglycemia Sodium Bicarbonate (Sodium Bicarbonate) 325 mg FEEDTUBE PRN PRN PRN Reason: For Clogged Feeding Tube - Imaging and cardiology Chest x-ray: report reviewed (mild pulmonary venous congestion; no consolidation or pleural effusions)
--- NOTE | 2016-09-25 12:25 | Progress Note ---
Assessment and Plan - continue to Wean FIO2 for O2 sats>92% - continue VTE prophylaxis (SCD's re: thrombocytopenia) - continue Stress ulcer prophylaxis (Pantoprazole) - continuing sedation vacations while watching for any obvious seizure activity - continue Lung protective strategies - seen by surgery and consent to be obtained today for trach +/- PEG once clinically and technically feasible - following clinically otherwise - resumed daytime PSV trials - will resume gentle diuresis (2) Shock Current Visit: Yes Status: Acute Plan to address problem: - Initially treated as septic shock secondary to HCAP earlier - continue strict glycemic control - completed AB's course; trending WBC - ID following - tapered off stress steroids now - continue midodrine for now but tapering - likely hypovolemic shock at this point with GI bleeding - s/p 4 units PRBC's - received a liter of IVNS - weaned off levophed now (3) Acute on chronic diastolic (congestive) heart failure Current Visit: No Status: Acute Plan to address problem: - Documented EF 55% - Continue to monitoring renal function and electrolyte profile closely - continue to monitor urine output, electrolyte profile (4) Altered mental status Current Visit: Yes Status: Acute Qualifiers: Altered mental status type: unspecified Coma depth: C Coma timing: C Qualified Code(s): R41.82 - Altered mental status, unspecified Plan to address problem: - Neurology following - on keppra - weaned off ativan and will use prn now - TSH elevated and started on low dose levoxyl (5) Morbid obesity Current Visit: Yes Status: Acute Qualifiers: Obesity type: unspecified obesity type Qualified Code(s): E66.01 - Morbid ( severe) obesity due to excess calories - weight loss strategies once more stable - caloric intake per pony ride attendant at this point (6) Anemia Current Visit: Yes Status: Acute Qualifiers: Anemia type: unspecified type Iron deficiency anemia type: I Vitamin B12 deficiency anemia type: V Folate deficiency anemia type: F Bone marrow failure anemia type: B Hemolytic anemia type: H Other causes of anemia: O Qualified Code(s): D64.9 - Anemia, unspecified Plan to address problem: - acute GI bleed - to receive 4 units PRBC's in all and will have 2 on hold - GI evaluation ordered - begin protonix drip - H&H holding - protonix drip to stop today - resume tube feeds at 10mls/hr (Lower GI bleed and no rebleed X 48hrs; GI signed off) - advance slowly to goal rate at this point (7) Status epilepticus Current Visit: Yes Status: Acute Plan to address problem: - Continue AEDs - Neurology following - no obvious clinical seizure activity (8) 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 - This could be secondary to an intra-cranial process, however unable to obtain neuro-imaging, patient's weight exceeds allowable maximum (9) Discharge planning issues Current Visit: Yes Status: Acute Plan to address problem: - Continue current care. - need to determine appropriate power of spinner hand / legal healthcare enrollment representative prior to any tentative withdrawal of care - son came by and signed DNR order however no consensus on hospice care / withdrawal - LTAC refused admission ..she remains critically ill on life sustaining interventions including MVS and back on vasopressors at high risk for further deterioration including ...care plan discussed at length with sister yesterday ....32' CCT Subjective Date of service: 09/25/16 Principal diagnosis: Acute Hypoxemic Hypercapnic Resp Failure; Severe Sepsis Interval history: Seen and examined at bedside; 24 hour events reviewed; nursing and respiratory care staff consulted; no adverse overnight events reported to me; remains on MVS ; tenuously tolerating PSV; exam suggets increasing pulmonary edema; still with acute encephalopathy; no V/F/C Objective Vital Signs - 12hr 09/25/16 09/25/16 09/25/16 00:30 00:40 00:50 Temperature Pulse Rate 74 76 74 Pulse Rate [ Anterior Bilateral Throughout] Pulse Rate [ From Monitor] Respiratory 25 H 25 H 22 Rate Respiratory Rate [Anterior Bilateral Throughout] Blood Pressure 115/46 115/46 119/46 O2 Sat by Pulse 100 100 100 Oximetry 09/25/16 09/25/16 09/25/16 01:00 01:10 01:20 Temperature Pulse Rate 76 88 73 Pulse Rate [ Anterior Bilateral Throughout] Pulse Rate [ From Monitor] Respiratory 19 25 H 25 H Rate Respiratory Rate [Anterior Bilateral Throughout] Blood Pressure 122/48 122/48 120/61 O2 Sat by Pulse 100 100 100 Oximetry 09/25/16 09/25/16 09/25/16 01:30 01:40 01:50 Temperature Pulse Rate 90 74 79 Pulse Rate [ Anterior Bilateral Throughout] Pulse Rate [ From Monitor] Respiratory 25 H 26 H 25 H Rate Respiratory Rate [Anterior Bilateral Throughout] Blood Pressure 110/62 110/62 126/41 O2 Sat by Pulse 100 100 100 Oximetry 09/25/16 09/25/16 09/25/16 02:00 02:10 02:11 Temperature Pulse Rate 85 86 Pulse Rate [ 80 83 Anterior Bilateral Throughout] Pulse Rate [ From Monitor] Respiratory 26 H 25 H Rate Respiratory 25 H 25 H Rate [Anterior Bilateral Throughout] Blood Pressure 132/30 132/30 O2 Sat by Pulse 100 100 Oximetry 09/25/16 09/25/16 09/25/16 02:20 02:30 02:40 Temperature Pulse Rate 76 82 88 Pulse Rate [ Anterior Bilateral Throughout] Pulse Rate [ From Monitor] Respiratory 25 H 26 H 26 H Rate Respiratory Rate [Anterior Bilateral Throughout] Blood Pressure 138/58 148/34 148/34 O2 Sat by Pulse 100 100 100 Oximetry 09/25/16 09/25/16 09/25/16 02:50 03:00 03:10 Temperature Pulse Rate 91 H 84 84 Pulse Rate [ Anterior Bilateral Throughout] Pulse Rate [ From Monitor] Respiratory 26 H 25 H 25 H Rate Respiratory Rate [Anterior Bilateral Throughout] Blood Pressure 142/49 137/37 137/37 O2 Sat by Pulse 100 100 100 Oximetry 09/25/16 09/25/16 09/25/16 03:20 03:30 03:40 Temperature Pulse Rate 69 85 85 Pulse Rate [ Anterior Bilateral Throughout] Pulse Rate [ From Monitor] Respiratory 22 28 H 27 H Rate Respiratory Rate [Anterior Bilateral Throughout] Blood Pressure 129/58 129/58 115/69 O2 Sat by Pulse 100 90 95 Oximetry 09/25/16 09/25/16 09/25/16 03:50 04:00 04:10 Temperature 98.8 F Pulse Rate 59 L 81 71 Pulse Rate [ Anterior Bilateral Throughout] Pulse Rate [ 97 H From Monitor] Respiratory 25 H 25 H 25 H Rate Respiratory Rate [Anterior Bilateral Throughout] Blood Pressure 133/67 128/63 128/63 O2 Sat by Pulse 100 100 100 Oximetry 09/25/16 09/25/16 09/25/16 04:20 04:24 04:30 Temperature Pulse Rate 75 83 72 Pulse Rate [ Anterior Bilateral Throughout] Pulse Rate [ From Monitor] Respiratory 25 H 25 H Rate Respiratory Rate [Anterior Bilateral Throughout] Blood Pressure 108/52 128/63 121/55 O2 Sat by Pulse 100 100 100 Oximetry 09/25/16 09/25/16 09/25/16 04:40 04:50 05:00 Temperature Pulse Rate 85 63 77 Pulse Rate [ Anterior Bilateral Throughout] Pulse Rate [ From Monitor] Respiratory 25 H 25 H 25 H Rate Respiratory Rate [Anterior Bilateral Throughout] Blood Pressure 121/55 100/64 123/54 O2 Sat by Pulse 100 100 100 Oximetry 09/25/16 09/25/16 09/25/16 05:10 05:20 05:30 Temperature Pulse Rate 81 109 H Pulse Rate [ Anterior Bilateral Throughout] Pulse Rate [ From Monitor] Respiratory 25 H 21 Rate Respiratory Rate [Anterior Bilateral Throughout] Blood Pressure 123/54 115/59 115/59 O2 Sat by Pulse 100 100 100 Oximetry 09/25/16 09/25/16 09/25/16 05:40 05:50 06:00 Temperature Pulse Rate 88 Pulse Rate [ Anterior Bilateral Throughout] Pulse Rate [ From Monitor] Respiratory Rate Respiratory Rate [Anterior Bilateral Throughout] Blood Pressure 115/59 115/59 114/88 O2 Sat by Pulse 100 95 Oximetry 09/25/16 09/25/16 09/25/16 06:03 06:10 06:20 Temperature Pulse Rate 81 76 87 Pulse Rate [ Anterior Bilateral Throughout] Pulse Rate [ From Monitor] Respiratory 16 26 H 25 H Rate Respiratory Rate [Anterior Bilateral Throughout] Blood Pressure 107/88 O2 Sat by Pulse 100 100 Oximetry 09/25/16 09/25/16 09/25/16 06:30 06:40 06:50 Temperature Pulse Rate 88 88 87 Pulse Rate [ Anterior Bilateral Throughout] Pulse Rate [ From Monitor] Respiratory 27 H 26 H 23 Rate Respiratory Rate [Anterior Bilateral Throughout] Blood Pressure 114/88 114/88 114/88 O2 Sat by Pulse 99 100 100 Oximetry 09/25/16 09/25/16 09/25/16 07:00 07:10 07:20 Temperature Pulse Rate 89 84 86 Pulse Rate [ Anterior Bilateral Throughout] Pulse Rate [ From Monitor] Respiratory 26 H 17 26 H Rate Respiratory Rate [Anterior Bilateral Throughout] Blood Pressure 152/107 152/107 152/107 O2 Sat by Pulse 100 100 100 Oximetry 06/16/17 06/16/17 06/16/17 07:30 07:34 07:40 Temperature Pulse Rate 95 H 90 95 H Pulse Rate [ 90 Anterior Bilateral Throughout] Pulse Rate [ From Monitor] Respiratory 26 H 24 Rate Respiratory 25 H Rate [Anterior Bilateral Throughout] Blood Pressure 154/76 152/107 154/76 O2 Sat by Pulse 100 100 100 Oximetry 09/25/16 09/25/16 09/25/16 07:49 07:50 08:00 Temperature 97.5 F L Pulse Rate 93 H 85 89 Pulse Rate [ 93 H Anterior Bilateral Throughout] Pulse Rate [ 90 From Monitor] Respiratory 31 H 21 33 H Rate Respiratory 31 H Rate [Anterior Bilateral Throughout] Blood Pressure 156/75 156/75 148/94 O2 Sat by Pulse 100 100 100 Oximetry 09/25/16 09/25/16 09/25/16 08:10 08:20 08:30 Temperature Pulse Rate 89 94 H 84 Pulse Rate [ Anterior Bilateral Throughout] Pulse Rate [ From Monitor] Respiratory 29 H 30 H 22 Rate Respiratory Rate [Anterior Bilateral Throughout] Blood Pressure 148/94 148/94 133/109 O2 Sat by Pulse 100 100 100 Oximetry 09/25/16 09/25/16 09/25/16 08:40 08:50 09:00 Temperature Pulse Rate 70 73 65 Pulse Rate [ Anterior Bilateral Throughout] Pulse Rate [ From Monitor] Respiratory 23 29 H 24 Rate Respiratory Rate [Anterior Bilateral Throughout] Blood Pressure 133/109 133/109 153/62 O2 Sat by Pulse 100 100 100 Oximetry 09/25/16 09/25/16 09/25/16 09:10 09:20 09:30 Temperature Pulse Rate 65 73 73 Pulse Rate [ Anterior Bilateral Throughout] Pulse Rate [ From Monitor] Respiratory 22 26 H 28 H Rate Respiratory Rate [Anterior Bilateral Throughout] Blood Pressure 153/62 153/62 149/83 O2 Sat by Pulse 100 100 100 Oximetry 09/25/16 09/25/16 10:51 12:06 Temperature Pulse Rate 74 76 Pulse Rate [ Anterior Bilateral Throughout] Pulse Rate [ From Monitor] Respiratory 26 H Rate Respiratory Rate [Anterior Bilateral Throughout] Blood Pressure 129/104 133/89 O2 Sat by Pulse 100 Oximetry Constitutional: no acute distress, other (encephalopathic) Eyes: non-icteric ENT: oropharynx moist, other (ETT 22cm RAFAEL) Neck: supple, no lymphadenopathy Effort: mildly labored Ascultation: Bilateral: diminished breath sounds, rales Cardiovascular: regular rate and rhythm Gastrointestinal: hypoactive bowel sounds, soft, non-tender, non-distended Integumentary: normal Extremities: no cyanosis, pulses normal, no ischemia or petechiae, edema (1++) Neurologic: unable to assess, other (lethargic) Psychiatric: other (sedated) CBC and BMP: 09/26/16 03:46 09/26/16 03:46 ABG, PT/INR, D-dimer: ABG POC ABG pH 7.460 (7.35-7.45) H 09/22/16 03:26 POC ABG pCO2 29.9 (35-45) L 09/22/16 03:26 POC ABG pO2 112 (80-105) H 09/22/16 03:26 POC ABG HCO3 21.3 09/22/16 03:26 POC ABG Total CO2 22 09/22/16 03:26 POC ABG O2 Sat 99 09/22/16 03:26 PT/INR, D-dimer PT 13.8 Sec. (12.2-14.9) 09/10/16 05:10 INR 1.07 (0.87-1.13) 09/10/16 05:10 Abnormal lab findings: Abnormal Labs 08/29/16 08/30/16 08/30/16 21:59 00:16 05:39 WBC RBC Hgb Hct MCV MCH MCHC RDW Plt Count Seg Neutrophils % Seg Neuts % (Manual) Nucleated RBC % Seg Neutrophils # Seg Neutrophils # Man PT INR POC ABG pH POC ABG pCO2 POC ABG pO2 Sodium Potassium Chloride Carbon Dioxide BUN Creatinine Glucose POC Glucose 106 H 128 H Lactic Acid Calcium Magnesium Total Bilirubin AST ALT Alkaline Phosphatase Ammonia Troponin T C-Reactive Protein Total Protein Albumin Prealbumin 0.120 L TSH Crossmatch 08/30/16 08/30/16 08/30/16 10:30 10:30 11:12 WBC 11.1 H RBC 3.16 L Hgb 8.7 L Hct 29.9 L MCV MCH MCHC 29 L RDW 25.0 H Plt Count Seg Neutrophils % 78.6 H Seg Neuts % (Manual) Nucleated RBC % Seg Neutrophils # 8.7 H Seg Neutrophils # Man PT INR POC ABG pH POC ABG pCO2 POC ABG pO2 Sodium 135 L Potassium Chloride Carbon Dioxide 20 L BUN Creatinine 1.5 H Glucose 148 H POC Glucose 142 H Lactic Acid Calcium 7.2 L Magnesium Total Bilirubin 1.30 H AST 143 H ALT Alkaline Phosphatase 392 H Ammonia Troponin T C-Reactive Protein Total Protein 6.1 L Albumin 1.2 L Prealbumin TSH Crossmatch 08/30/16 08/30/16 08/30/16 17:41 18:03 18:18 WBC RBC Hgb Hct MCV MCH MCHC RDW Plt Count Seg Neutrophils % Seg Neuts % (Manual) Nucleated RBC % Seg Neutrophils # Seg Neutrophils # Man PT INR POC ABG pH 7.316 L POC ABG pCO2 POC ABG pO2 44 L 59 L Sodium Potassium Chloride Carbon Dioxide BUN Creatinine Glucose POC Glucose 150 H Lactic Acid Calcium Magnesium Total Bilirubin AST ALT Alkaline Phosphatase Ammonia Troponin T C-Reactive Protein Total Protein Albumin Prealbumin TSH Crossmatch 08/30/16 08/30/16 08/31/16 22:20 22:20 00:11 WBC RBC Hgb Hct MCV MCH MCHC RDW Plt Count Seg Neutrophils % Seg Neuts % (Manual) Nucleated RBC % Seg Neutrophils # Seg Neutrophils # Man PT INR POC ABG pH POC ABG pCO2 POC ABG pO2 Sodium Potassium Chloride Carbon Dioxide BUN Creatinine Glucose POC Glucose 133 H Lactic Acid 2.30 H* Calcium Magnesium Total Bilirubin AST ALT Alkaline Phosphatase Ammonia Troponin T C-Reactive Protein 10.20 H Total Protein Albumin Prealbumin TSH Crossmatch 08/31/16 08/31/16 08/31/16 04:20 04:20 04:20 WBC 18.3 H RBC 3.19 L Hgb 8.8 L Hct 30.0 L MCV MCH 27 L MCHC 29 L RDW 23.9 H Plt Count Seg Neutrophils % Seg Neuts % (Manual) Nucleated RBC % Seg Neutrophils # Seg Neutrophils # Man PT 16.8 H INR 1.37 H POC ABG pH POC ABG pCO2 POC ABG pO2 Sodium 136 L Potassium Chloride Carbon Dioxide 19 L BUN Creatinine 1.5 H Glucose 125 H POC Glucose Lactic Acid Calcium 7.0 L Magnesium Total Bilirubin 1.50 H AST 131 H ALT Alkaline Phosphatase 431 H Ammonia Troponin T C-Reactive Protein Total Protein 6.2 L Albumin 1.2 L Prealbumin TSH Crossmatch 08/31/16 08/31/16 08/31/16 04:20 05:22 05:24 WBC RBC Hgb Hct MCV MCH MCHC RDW Plt Count Seg Neutrophils % Seg Neuts % (Manual) Nucleated RBC % Seg Neutrophils # Seg Neutrophils # Man PT INR POC ABG pH POC ABG pCO2 POC ABG pO2 142 H Sodium Potassium Chloride Carbon Dioxide BUN Creatinine Glucose POC Glucose 123 H Lactic Acid Calcium Magnesium Total Bilirubin AST ALT Alkaline Phosphatase Ammonia 70.0 H Troponin T C-Reactive Protein Total Protein Albumin Prealbumin TSH Crossmatch 08/31/16 08/31/16 08/31/16 12:10 15:45 17:38 WBC RBC Hgb Hct MCV MCH MCHC RDW Plt Count Seg Neutrophils % Seg Neuts % (Manual) Nucleated RBC % Seg Neutrophils # Seg Neutrophils # Man PT INR POC ABG pH POC ABG pCO2 POC ABG pO2 Sodium 136 L Potassium Chloride Carbon Dioxide 21 L BUN Creatinine 1.5 H Glucose 160 H POC Glucose 147 H 151 H Lactic Acid Calcium 6.9 L Magnesium Total Bilirubin AST ALT Alkaline Phosphatase Ammonia Troponin T 0.109 H* D C-Reactive Protein Total Protein Albumin Prealbumin TSH Crossmatch 09/01/16 09/01/16 09/01/16 00:09 04:00 04:00 WBC 14.8 H RBC 2.89 L Hgb 7.8 L Hct 27.2 L MCV MCH 27 L MCHC 29 L RDW 24.4 H Plt Count Seg Neutrophils % Seg Neuts % (Manual) Nucleated RBC % Seg Neutrophils # Seg Neutrophils # Man PT 18.2 H INR 1.51 H POC ABG pH POC ABG pCO2 POC ABG pO2 Sodium Potassium Chloride Carbon Dioxide BUN Creatinine Glucose POC Glucose 192 H Lactic Acid Calcium Magnesium Total Bilirubin AST ALT Alkaline Phosphatase Ammonia Troponin T C-Reactive Protein Total Protein Albumin Prealbumin TSH Crossmatch 09/01/16 09/01/16 09/01/16 04:00 05:28 11:28 WBC RBC Hgb Hct MCV MCH MCHC RDW Plt Count Seg Neutrophils % Seg Neuts % (Manual) Nucleated RBC % Seg Neutrophils # Seg Neutrophils # Man PT INR POC ABG pH POC ABG pCO2 POC ABG pO2 Sodium Potassium Chloride Carbon Dioxide 20 L BUN Creatinine 1.6 H Glucose 183 H POC Glucose 189 H 207 H Lactic Acid Calcium 6.9 L Magnesium Total Bilirubin 1.30 H AST 138 H ALT Alkaline Phosphatase 520 H Ammonia Troponin T C-Reactive Protein Total Protein 6.1 L Albumin 1.2 L Prealbumin TSH Crossmatch 09/01/16 09/01/16 09/02/16 16:56 23:49 05:00 WBC RBC Hgb Hct MCV MCH MCHC RDW Plt Count Seg Neutrophils % Seg Neuts % (Manual) Nucleated RBC % Seg Neutrophils # Seg Neutrophils # Man PT 18.0 H INR 1.49 H POC ABG pH POC ABG pCO2 POC ABG pO2 Sodium Potassium Chloride Carbon Dioxide BUN Creatinine Glucose POC Glucose 250 H 307 H Lactic Acid Calcium Magnesium Total Bilirubin AST ALT Alkaline Phosphatase Ammonia Troponin T C-Reactive Protein Total Protein Albumin Prealbumin TSH Crossmatch 09/02/16 09/02/16 09/02/16 05:00 05:00 05:45 WBC 12.3 H RBC 2.57 L Hgb 7.1 L Hct 23.4 L MCV MCH MCHC RDW 23.9 H Plt Count Seg Neutrophils % Seg Neuts % (Manual) 72.0 H Nucleated RBC % 25.0 H Seg Neutrophils # Seg Neutrophils # Man 8.9 H PT INR POC ABG pH POC ABG pCO2 POC ABG pO2 Sodium Potassium Chloride Carbon Dioxide BUN Creatinine 1.4 H Glucose 299 H POC Glucose 327 H Lactic Acid Calcium 7.0 L Magnesium Total Bilirubin AST ALT Alkaline Phosphatase Ammonia Troponin T C-Reactive Protein Total Protein Albumin Prealbumin TSH Crossmatch 09/02/16 09/02/16 09/02/16 12:22 17:22 23:24 WBC RBC Hgb Hct MCV MCH MCHC RDW Plt Count Seg Neutrophils % Seg Neuts % (Manual) Nucleated RBC % Seg Neutrophils # Seg Neutrophils # Man PT INR POC ABG pH POC ABG pCO2 POC ABG pO2 Sodium Potassium Chloride Carbon Dioxide BUN Creatinine Glucose POC Glucose 310 H 358 H 286 H Lactic Acid Calcium Magnesium Total Bilirubin AST ALT Alkaline Phosphatase Ammonia Troponin T C-Reactive Protein Total Protein Albumin Prealbumin TSH Crossmatch 09/03/16 09/03/16 09/03/16 04:10 04:10 04:10 WBC 11.8 H RBC 2.29 L Hgb 6.1 L Hct 21.0 L MCV MCH 27 L MCHC 29 L RDW 24.1 H Plt Count Seg Neutrophils % Seg Neuts % (Manual) Nucleated RBC % Seg Neutrophils # Seg Neutrophils # Man PT 17.6 H INR 1.45 H POC ABG pH POC ABG pCO2 POC ABG pO2 Sodium Potassium Chloride Carbon Dioxide BUN Creatinine 1.4 H Glucose 301 H POC Glucose Lactic Acid Calcium 7.0 L Magnesium Total Bilirubin AST ALT Alkaline Phosphatase Ammonia Troponin T C-Reactive Protein Total Protein Albumin Prealbumin TSH Crossmatch 09/03/16 09/03/16 09/03/16 05:59 11:36 17:42 WBC RBC Hgb Hct MCV MCH MCHC RDW Plt Count Seg Neutrophils % Seg Neuts % (Manual) Nucleated RBC % Seg Neutrophils # Seg Neutrophils # Man PT INR POC ABG pH POC ABG pCO2 POC ABG pO2 Sodium Potassium Chloride Carbon Dioxide BUN Creatinine Glucose POC Glucose 351 H 285 H 259 H Lactic Acid Calcium Magnesium Total Bilirubin AST ALT Alkaline Phosphatase Ammonia Troponin T C-Reactive Protein Total Protein Albumin Prealbumin TSH Crossmatch 09/03/16 09/04/16 09/04/16 23:00 04:27 05:36 WBC RBC Hgb Hct MCV MCH MCHC RDW Plt Count Seg Neutrophils % Seg Neuts % (Manual) Nucleated RBC % Seg Neutrophils # Seg Neutrophils # Man PT INR POC ABG pH 7.544 H POC ABG pCO2 30.8 L POC ABG pO2 78 L Sodium Potassium Chloride Carbon Dioxide BUN Creatinine Glucose POC Glucose 192 H 228 H Lactic Acid Calcium Magnesium Total Bilirubin AST ALT Alkaline Phosphatase Ammonia Troponin T C-Reactive Protein Total Protein Albumin Prealbumin TSH Crossmatch 09/04/16 09/04/16 09/04/16 06:37 06:37 06:39 WBC 21.0 H RBC 2.22 L Hgb 6.0 L Hct 20.1 L MCV MCH 27 L MCHC RDW 24.3 H Plt Count Seg Neutrophils % Seg Neuts % (Manual) Nucleated RBC % Seg Neutrophils # Seg Neutrophils # Man PT 16.8 H INR 1.37 H POC ABG pH POC ABG pCO2 POC ABG pO2 Sodium Potassium Chloride Carbon Dioxide BUN Creatinine 1.4 H Glucose 201 H POC Glucose Lactic Acid Calcium 7.1 L Magnesium Total Bilirubin AST ALT Alkaline Phosphatase Ammonia Troponin T C-Reactive Protein Total Protein Albumin Prealbumin TSH Crossmatch 09/04/16 09/04/16 09/04/16 12:14 15:47 17:41 WBC RBC Hgb Hct MCV MCH MCHC RDW Plt Count Seg Neutrophils % Seg Neuts % (Manual) Nucleated RBC % Seg Neutrophils # Seg Neutrophils # Man PT INR POC ABG pH POC ABG pCO2 POC ABG pO2 Sodium Potassium Chloride Carbon Dioxide BUN Creatinine Glucose POC Glucose 176 H 218 H Lactic Acid Calcium Magnesium Total Bilirubin AST ALT Alkaline Phosphatase Ammonia Troponin T C-Reactive Protein Total Protein Albumin Prealbumin TSH Crossmatch See Detail 09/04/16 09/04/16 09/05/16 21:59 23:48 04:30 WBC RBC Hgb Hct MCV MCH MCHC RDW Plt Count Seg Neutrophils % Seg Neuts % (Manual) Nucleated RBC % Seg Neutrophils # Seg Neutrophils # Cristian PT 17.2 H INR 1.41 H POC ABG pH POC ABG pCO2 POC ABG pO2 Sodium Potassium Chloride Carbon Dioxide BUN Creatinine Glucose POC Glucose 170 H 121 H Lactic Acid Calcium Magnesium Total Bilirubin AST ALT Alkaline Phosphatase Ammonia Troponin T C-Reactive Protein Total Protein Albumin Prealbumin TSH Crossmatch 09/05/16 09/05/16 09/05/16 04:30 04:30 05:09 WBC 31.9 H RBC 3.11 L Hgb 8.5 L Hct 28.3 L D MCV MCH 27 L MCHC RDW 21.0 H Plt Count Seg Neutrophils % Seg Neuts % (Manual) Nucleated RBC % Seg Neutrophils # Seg Neutrophils # Cristian PT INR POC ABG pH 7.226 L POC ABG pCO2 61.6 H POC ABG pO2 68 L Sodium 134 L Potassium 5.5 H Chloride 96.6 L Carbon Dioxide BUN 23 H Creatinine 1.6 H Glucose 116 H POC Glucose Lactic Acid Calcium 7.1 L Magnesium Total Bilirubin AST ALT Alkaline Phosphatase Ammonia Troponin T C-Reactive Protein Total Protein Albumin Prealbumin TSH Crossmatch 09/05/16 09/05/16 09/05/16 05:33 12:08 17:32 WBC RBC Hgb Hct MCV MCH MCHC RDW Plt Count Seg Neutrophils % Seg Neuts % (Manual) Nucleated RBC % Seg Neutrophils # Seg Neutrophils # Man PT INR POC ABG pH POC ABG pCO2 POC ABG pO2 Sodium Potassium Chloride Carbon Dioxide BUN Creatinine Glucose POC Glucose 114 H 147 H 174 H Lactic Acid Calcium Magnesium Total Bilirubin AST ALT Alkaline Phosphatase Ammonia Troponin T C-Reactive Protein Total Protein Albumin Prealbumin TSH Crossmatch 09/06/16 09/06/16 09/06/16 03:30 03:30 03:30 WBC 25.4 H RBC 2.57 L Hgb 7.2 L Hct 22.8 L MCV MCH MCHC RDW 20.9 H Plt Count 138 L Seg Neutrophils % Seg Neuts % (Manual) Nucleated RBC % Seg Neutrophils # Seg Neutrophils # Man PT 16.4 H INR 1.33 H POC ABG pH POC ABG pCO2 POC ABG pO2 Sodium Potassium Chloride Carbon Dioxide BUN 36 H Creatinine 1.9 H Glucose POC Glucose Lactic Acid Calcium 7.2 L Magnesium Total Bilirubin AST ALT Alkaline Phosphatase Ammonia Troponin T C-Reactive Protein Total Protein Albumin Prealbumin TSH Crossmatch 09/06/16 09/06/16 09/06/16 11:07 12:03 14:44 WBC RBC Hgb Hct MCV MCH MCHC RDW Plt Count Seg Neutrophils % Seg Neuts % (Manual) Nucleated RBC % Seg Neutrophils # Seg Neutrophils # Man PT INR POC ABG pH POC ABG pCO2 POC ABG pO2 Sodium Potassium Chloride Carbon Dioxide BUN Creatinine Glucose POC Glucose 61 L 55 L Lactic Acid Calcium Magnesium Total Bilirubin AST ALT Alkaline Phosphatase Ammonia Troponin T 0.080 H C-Reactive Protein Total Protein Albumin Prealbumin TSH Crossmatch 09/06/16 09/06/16 09/07/16 21:05 23:53 03:36 WBC RBC Hgb Hct MCV MCH MCHC RDW Plt Count Seg Neutrophils % Seg Neuts % (Manual) Nucleated RBC % Seg Neutrophils # Seg Neutrophils # Man PT INR POC ABG pH POC ABG pCO2 POC ABG pO2 Sodium Potassium Chloride Carbon Dioxide BUN Creatinine Glucose POC Glucose 140 H 178 H 243 H Lactic Acid Calcium Magnesium Total Bilirubin AST ALT Alkaline Phosphatase Ammonia Troponin T C-Reactive Protein Total Protein Albumin Prealbumin TSH Crossmatch 09/07/16 09/07/16 09/07/16 03:42 03:42 05:04 WBC 17.3 H RBC 2.69 L Hgb 7.6 L Hct 23.8 L MCV MCH MCHC RDW 20.5 H Plt Count 137 L Seg Neutrophils % Seg Neuts % (Manual) Nucleated RBC % Seg Neutrophils # Seg Neutrophils # Man PT INR POC ABG pH POC ABG pCO2 POC ABG pO2 Sodium Potassium 3.3 L Chloride Carbon Dioxide BUN 38 H Creatinine 1.6 H Glucose 201 H POC Glucose 241 H Lactic Acid Calcium 7.4 L Magnesium Total Bilirubin AST ALT Alkaline Phosphatase Ammonia Troponin T C-Reactive Protein Total Protein Albumin Prealbumin TSH Crossmatch 09/07/16 09/07/16 09/07/16 11:46 17:41 23:18 WBC RBC Hgb Hct MCV MCH MCHC RDW Plt Count Seg Neutrophils % Seg Neuts % (Manual) Nucleated RBC % Seg Neutrophils # Seg Neutrophils # Man PT INR POC ABG pH POC ABG pCO2 POC ABG pO2 Sodium Potassium Chloride Carbon Dioxide BUN Creatinine Glucose POC Glucose 313 H 227 H 116 H Lactic Acid Calcium Magnesium Total Bilirubin AST ALT Alkaline Phosphatase Ammonia Troponin T C-Reactive Protein Total Protein Albumin Prealbumin TSH Crossmatch 09/08/16 09/08/16 09/08/16 04:00 04:00 05:15 WBC 18.4 H RBC 2.43 L Hgb 6.9 L Hct 21.5 L MCV MCH MCHC RDW 20.5 H Plt Count 119 L Seg Neutrophils % Seg Neuts % (Manual) Nucleated RBC % Seg Neutrophils # Seg Neutrophils # Man PT INR POC ABG pH 7.458 H POC ABG pCO2 POC ABG pO2 177 H Sodium Potassium 3.5 L Chloride Carbon Dioxide BUN 37 H Creatinine 1.3 H Glucose POC Glucose Lactic Acid Calcium 7.1 L Magnesium Total Bilirubin AST ALT Alkaline Phosphatase Ammonia Troponin T C-Reactive Protein Total Protein Albumin Prealbumin TSH Crossmatch 09/08/16 09/08/16 09/08/16 11:00 15:58 23:16 WBC RBC Hgb Hct MCV MCH MCHC RDW Plt Count Seg Neutrophils % Seg Neuts % (Manual) Nucleated RBC % Seg Neutrophils # Seg Neutrophils # Man PT INR POC ABG pH POC ABG pCO2 POC ABG pO2 113 H Sodium Potassium Chloride Carbon Dioxide BUN Creatinine Glucose POC Glucose 40 L Lactic Acid Calcium Magnesium Total Bilirubin AST ALT Alkaline Phosphatase Ammonia Troponin T C-Reactive Protein Total Protein Albumin Prealbumin TSH Crossmatch See Detail 09/09/16 09/09/16 09/09/16 05:02 12:33 18:10 WBC RBC Hgb Hct MCV MCH MCHC RDW Plt Count Seg Neutrophils % Seg Neuts % (Manual) Nucleated RBC % Seg Neutrophils # Seg Neutrophils # Man PT INR POC ABG pH 7.454 H POC ABG pCO2 POC ABG pO2 75 L Sodium Potassium Chloride Carbon Dioxide BUN Creatinine Glucose POC Glucose 59 L Lactic Acid Calcium Magnesium Total Bilirubin AST ALT Alkaline Phosphatase Ammonia Troponin T C-Reactive Protein Total Protein Albumin Prealbumin TSH 5.220 H Crossmatch 09/09/16 09/09/16 09/09/16 18:10 18:10 18:42 WBC 17.0 H RBC 2.90 L Hgb 8.5 L Hct 26.1 L MCV MCH MCHC RDW 17.9 H Plt Count 126 L Seg Neutrophils % Seg Neuts % (Manual) Nucleated RBC % Seg Neutrophils # Seg Neutrophils # Man PT INR POC ABG pH POC ABG pCO2 POC ABG pO2 Sodium Potassium Chloride Carbon Dioxide BUN 36 H Creatinine Glucose 133 H POC Glucose 148 H Lactic Acid Calcium 6.9 L Magnesium Total Bilirubin AST 253 H ALT 184 H Alkaline Phosphatase 729 H Ammonia Troponin T C-Reactive Protein Total Protein 5.1 L Albumin 1.7 L Prealbumin TSH Crossmatch 09/09/16 09/10/16 09/10/16 23:22 05:10 11:43 WBC RBC Hgb Hct MCV MCH MCHC RDW Plt Count Seg Neutrophils % Seg Neuts % (Manual) Nucleated RBC % Seg Neutrophils # Seg Neutrophils # Man PT INR POC ABG pH POC ABG pCO2 POC ABG pO2 Sodium Potassium Chloride Carbon Dioxide BUN 35 H Creatinine Glucose 240 H POC Glucose 170 H 268 H Lactic Acid Calcium 6.8 L Magnesium Total Bilirubin AST 226 H ALT 171 H Alkaline Phosphatase 710 H Ammonia Troponin T C-Reactive Protein Total Protein 5.2 L Albumin 1.7 L Prealbumin TSH Crossmatch 09/10/16 09/11/16 09/11/16 17:51 01:07 05:00 WBC RBC Hgb Hct MCV MCH MCHC RDW Plt Count Seg Neutrophils % Seg Neuts % (Manual) Nucleated RBC % Seg Neutrophils # Seg Neutrophils # Man PT INR POC ABG pH POC ABG pCO2 POC ABG pO2 Sodium Potassium 2.9 L* Chloride Carbon Dioxide BUN 35 H Creatinine Glucose 274 H POC Glucose 334 H 223 H Lactic Acid Calcium 6.9 L Magnesium Total Bilirubin AST 167 H ALT 145 H Alkaline Phosphatase 631 H Ammonia Troponin T C-Reactive Protein Total Protein 5.1 L Albumin 1.6 L Prealbumin TSH Crossmatch 09/11/16 09/11/16 09/11/16 05:01 12:16 17:12 WBC RBC Hgb Hct MCV MCH MCHC RDW Plt Count Seg Neutrophils % Seg Neuts % (Manual) Nucleated RBC % Seg Neutrophils # Seg Neutrophils # Man PT INR POC ABG pH POC ABG pCO2 POC ABG pO2 Sodium Potassium Chloride Carbon Dioxide BUN Creatinine Glucose POC Glucose 305 H 219 H 171 H Lactic Acid Calcium Magnesium Total Bilirubin AST ALT Alkaline Phosphatase Ammonia Troponin T C-Reactive Protein Total Protein Albumin Prealbumin TSH Crossmatch 09/11/16 09/12/16 09/12/16 23:35 03:33 05:00 WBC 12.9 H RBC 2.81 L Hgb 8.2 L Hct 25.4 L MCV MCH MCHC RDW 17.9 H Plt Count Seg Neutrophils % Seg Neuts % (Manual) Nucleated RBC % Seg Neutrophils # Seg Neutrophils # Man PT INR POC ABG pH POC ABG pCO2 POC ABG pO2 Sodium Potassium Chloride Carbon Dioxide BUN Creatinine Glucose POC Glucose 216 H 183 H Lactic Acid Calcium Magnesium Total Bilirubin AST ALT Alkaline Phosphatase Ammonia Troponin T C-Reactive Protein Total Protein Albumin Prealbumin TSH Crossmatch 09/12/16 09/12/16 09/12/16 05:00 15:15 18:30 WBC RBC Hgb Hct MCV MCH MCHC RDW Plt Count Seg Neutrophils % Seg Neuts % (Manual) Nucleated RBC % Seg Neutrophils # Seg Neutrophils # Man PT INR POC ABG pH POC ABG pCO2 POC ABG pO2 Sodium Potassium 3.0 L 3.4 L Chloride Carbon Dioxide BUN 33 H Creatinine 0.5 L Glucose POC Glucose 215 H Lactic Acid Calcium 7.0 L Magnesium Total Bilirubin AST ALT Alkaline Phosphatase Ammonia Troponin T C-Reactive Protein Total Protein Albumin Prealbumin TSH Crossmatch 09/12/16 09/13/16 09/13/16 23:17 05:50 05:50 WBC RBC 2.93 L Hgb 8.8 L Hct 26.7 L MCV MCH MCHC RDW 18.0 H Plt Count Seg Neutrophils % Seg Neuts % (Manual) Nucleated RBC % Seg Neutrophils # Seg Neutrophils # Man PT INR POC ABG pH POC ABG pCO2 POC ABG pO2 Sodium Potassium 2.6 L* D Chloride Carbon Dioxide BUN 29 H Creatinine 0.5 L Glucose 106 H POC Glucose 155 H Lactic Acid Calcium 7.3 L Magnesium Total Bilirubin AST ALT Alkaline Phosphatase Ammonia Troponin T C-Reactive Protein Total Protein Albumin Prealbumin TSH Crossmatch 09/13/16 09/13/16 09/13/16 05:53 11:43 15:07 WBC RBC Hgb Hct MCV MCH MCHC RDW Plt Count Seg Neutrophils % Seg Neuts % (Manual) Nucleated RBC % Seg Neutrophils # Seg Neutrophils # Man PT INR POC ABG pH POC ABG pCO2 POC ABG pO2 Sodium Potassium 2.8 L* Chloride Carbon Dioxide BUN Creatinine Glucose POC Glucose 119 H 129 H Lactic Acid Calcium Magnesium Total Bilirubin AST ALT Alkaline Phosphatase Ammonia Troponin T C-Reactive Protein Total Protein Albumin Prealbumin TSH Crossmatch 09/13/16 09/13/16 09/14/16 17:39 23:30 05:34 WBC RBC Hgb Hct MCV MCH MCHC RDW Plt Count Seg Neutrophils % Seg Neuts % (Manual) Nucleated RBC % Seg Neutrophils # Seg Neutrophils # Man PT INR POC ABG pH POC ABG pCO2 POC ABG pO2 Sodium Potassium Chloride Carbon Dioxide BUN Creatinine Glucose POC Glucose 144 H 196 H 175 H Lactic Acid Calcium Magnesium Total Bilirubin AST ALT Alkaline Phosphatase Ammonia Troponin T C-Reactive Protein Total Protein Albumin Prealbumin TSH Crossmatch 09/14/16 09/14/16 09/14/16 06:24 06:24 12:41 WBC RBC 2.82 L Hgb 8.4 L Hct 25.7 L MCV MCH MCHC RDW 18.0 H Plt Count Seg Neutrophils % Seg Neuts % (Manual) Nucleated RBC % Seg Neutrophils # Seg Neutrophils # Man PT INR POC ABG pH POC ABG pCO2 POC ABG pO2 Sodium Potassium 2.9 L* Chloride 107.3 H Carbon Dioxide BUN 26 H Creatinine 0.4 L Glucose 169 H POC Glucose 184 H Lactic Acid Calcium 7.5 L Magnesium Total Bilirubin AST ALT Alkaline Phosphatase Ammonia Troponin T C-Reactive Protein Total Protein Albumin Prealbumin TSH Crossmatch 09/14/16 09/14/16 09/14/16 14:50 17:57 23:34 WBC RBC Hgb Hct MCV MCH MCHC RDW Plt Count Seg Neutrophils % Seg Neuts % (Manual) Nucleated RBC % Seg Neutrophils # Seg Neutrophils # Man PT INR POC ABG pH POC ABG pCO2 POC ABG pO2 Sodium Potassium 3.3 L Chloride Carbon Dioxide BUN Creatinine Glucose POC Glucose 191 H 178 H Lactic Acid Calcium Magnesium Total Bilirubin AST ALT Alkaline Phosphatase Ammonia Troponin T C-Reactive Protein Total Protein Albumin Prealbumin TSH Crossmatch 09/15/16 09/15/16 09/15/16 05:02 07:57 07:57 WBC RBC 3.04 L Hgb 9.2 L Hct 28.2 L MCV MCH MCHC RDW 18.8 H Plt Count Seg Neutrophils % Seg Neuts % (Manual) Nucleated RBC % Seg Neutrophils # Seg Neutrophils # Man PT INR POC ABG pH POC ABG pCO2 POC ABG pO2 Sodium Potassium Chloride 107.2 H Carbon Dioxide BUN 26 H Creatinine 0.4 L Glucose 160 H POC Glucose 192 H Lactic Acid Calcium 7.7 L Magnesium Total Bilirubin AST ALT Alkaline Phosphatase Ammonia Troponin T C-Reactive Protein Total Protein Albumin Prealbumin TSH Crossmatch 09/15/16 09/15/16 09/15/16 11:23 17:51 23:45 WBC RBC Hgb Hct MCV MCH MCHC RDW Plt Count Seg Neutrophils % Seg Neuts % (Manual) Nucleated RBC % Seg Neutrophils # Seg Neutrophils # Man PT INR POC ABG pH POC ABG pCO2 POC ABG pO2 Sodium Potassium Chloride Carbon Dioxide BUN Creatinine Glucose POC Glucose 232 H 240 H 251 H Lactic Acid Calcium Magnesium Total Bilirubin AST ALT Alkaline Phosphatase Ammonia Troponin T C-Reactive Protein Total Protein Albumin Prealbumin TSH Crossmatch 09/16/16 09/16/16 09/16/16 04:55 04:55 05:38 WBC RBC 2.84 L Hgb 8.6 L Hct 26.2 L MCV MCH MCHC RDW 18.8 H Plt Count Seg Neutrophils % Seg Neuts % (Manual) Nucleated RBC % Seg Neutrophils # Seg Neutrophils # Man PT INR POC ABG pH POC ABG pCO2 POC ABG pO2 Sodium Potassium 3.1 L Chloride 107.6 H Carbon Dioxide BUN 25 H Creatinine 0.3 L Glucose 134 H POC Glucose 157 H Lactic Acid Calcium 7.6 L Magnesium Total Bilirubin AST ALT Alkaline Phosphatase Ammonia Troponin T C-Reactive Protein Total Protein Albumin Prealbumin TSH Crossmatch 09/16/16 09/16/16 09/16/16 11:53 17:56 23:54 WBC RBC Hgb Hct MCV MCH MCHC RDW Plt Count Seg Neutrophils % Seg Neuts % (Manual) Nucleated RBC % Seg Neutrophils # Seg Neutrophils # Man PT INR POC ABG pH POC ABG pCO2 POC ABG pO2 Sodium Potassium Chloride Carbon Dioxide BUN Creatinine Glucose POC Glucose 137 H 138 H 179 H Lactic Acid Calcium Magnesium Total Bilirubin AST ALT Alkaline Phosphatase Ammonia Troponin T C-Reactive Protein Total Protein Albumin Prealbumin TSH Crossmatch 09/17/16 09/17/16 09/17/16 05:00 05:00 05:28 WBC RBC 2.77 L Hgb 8.2 L Hct 25.9 L MCV MCH MCHC RDW 19.1 H Plt Count Seg Neutrophils % Seg Neuts % (Manual) Nucleated RBC % Seg Neutrophils # Seg Neutrophils # Man PT INR POC ABG pH POC ABG pCO2 POC ABG pO2 Sodium Potassium 3.5 L Chloride 108.4 H Carbon Dioxide BUN 29 H Creatinine 0.3 L Glucose 117 H POC Glucose 142 H Lactic Acid Calcium 7.4 L Magnesium Total Bilirubin AST ALT Alkaline Phosphatase Ammonia Troponin T C-Reactive Protein Total Protein Albumin Prealbumin TSH Crossmatch 09/17/16 09/17/16 09/18/16 18:07 23:31 06:29 WBC RBC Hgb Hct MCV MCH MCHC RDW Plt Count Seg Neutrophils % Seg Neuts % (Manual) Nucleated RBC % Seg Neutrophils # Seg Neutrophils # Man PT INR POC ABG pH POC ABG pCO2 POC ABG pO2 Sodium Potassium Chloride Carbon Dioxide BUN Creatinine Glucose POC Glucose 173 H 240 H 282 H Lactic Acid Calcium Magnesium Total Bilirubin AST ALT Alkaline Phosphatase Ammonia Troponin T C-Reactive Protein Total Protein Albumin Prealbumin TSH Crossmatch 09/18/16 09/18/16 09/18/16 06:30 12:21 17:55 WBC RBC Hgb Hct MCV MCH MCHC RDW Plt Count Seg Neutrophils % Seg Neuts % (Manual) Nucleated RBC % Seg Neutrophils # Seg Neutrophils # Man PT INR POC ABG pH POC ABG pCO2 POC ABG pO2 Sodium 148 H Potassium Chloride 110.7 H Carbon Dioxide BUN 30 H Creatinine 0.4 L Glucose 249 H POC Glucose 248 H 255 H Lactic Acid Calcium 7.4 L Magnesium 1.60 L Total Bilirubin AST ALT Alkaline Phosphatase Ammonia Troponin T C-Reactive Protein Total Protein Albumin Prealbumin TSH Crossmatch 09/19/16 09/19/16 09/19/16 00:09 04:45 05:11 WBC RBC Hgb Hct MCV MCH MCHC RDW Plt Count Seg Neutrophils % Seg Neuts % (Manual) Nucleated RBC % Seg Neutrophils # Seg Neutrophils # Man PT INR POC ABG pH POC ABG pCO2 POC ABG pO2 Sodium 146 H Potassium Chloride 110.8 H Carbon Dioxide BUN 34 H Creatinine 0.4 L Glucose 278 H POC Glucose 324 H 278 H Lactic Acid Calcium 7.3 L Magnesium Total Bilirubin AST ALT Alkaline Phosphatase Ammonia Troponin T C-Reactive Protein Total Protein Albumin Prealbumin TSH Crossmatch 09/19/16 09/19/16 09/19/16 11:12 12:09 17:10 WBC RBC Hgb Hct MCV MCH MCHC RDW Plt Count Seg Neutrophils % Seg Neuts % (Manual) Nucleated RBC % Seg Neutrophils # Seg Neutrophils # Man PT INR POC ABG pH POC ABG pCO2 POC ABG pO2 Sodium Potassium Chloride Carbon Dioxide BUN Creatinine Glucose POC Glucose 306 H 225 H 329 H Lactic Acid Calcium Magnesium Total Bilirubin AST ALT Alkaline Phosphatase Ammonia Troponin T C-Reactive Protein Total Protein Albumin Prealbumin TSH Crossmatch 09/19/16 09/20/16 09/20/16 23:34 04:52 05:00 WBC RBC Hgb Hct MCV MCH MCHC RDW Plt Count Seg Neutrophils % Seg Neuts % (Manual) Nucleated RBC % Seg Neutrophils # Seg Neutrophils # Man PT INR POC ABG pH POC ABG pCO2 POC ABG pO2 Sodium Potassium Chloride 108.6 H Carbon Dioxide BUN 35 H Creatinine 0.4 L Glucose 370 H POC Glucose 376 H 374 H Lactic Acid Calcium 7.3 L Magnesium Total Bilirubin AST ALT Alkaline Phosphatase Ammonia Troponin T C-Reactive Protein Total Protein Albumin Prealbumin TSH Crossmatch 09/20/16 09/20/16 09/20/16 11:18 17:39 23:49 WBC RBC Hgb Hct MCV MCH MCHC RDW Plt Count Seg Neutrophils % Seg Neuts % (Manual) Nucleated RBC % Seg Neutrophils # Seg Neutrophils # Man PT INR POC ABG pH POC ABG pCO2 POC ABG pO2 Sodium Potassium Chloride Carbon Dioxide BUN Creatinine Glucose POC Glucose 342 H 416 H 440 H Lactic Acid Calcium Magnesium Total Bilirubin AST ALT Alkaline Phosphatase Ammonia Troponin T C-Reactive Protein Total Protein Albumin Prealbumin TSH Crossmatch 09/21/16 09/21/16 09/21/16 04:58 05:15 05:15 WBC RBC 1.48 L Hgb 4.6 L* Hct 14.9 L* MCV 100 H MCH MCHC RDW 25.4 H Plt Count Seg Neutrophils % Seg Neuts % (Manual) Nucleated RBC % Seg Neutrophils # Seg Neutrophils # Man PT INR POC ABG pH POC ABG pCO2 POC ABG pO2 Sodium Potassium Chloride 107.5 H Carbon Dioxide 20 L BUN 45 H Creatinine 0.6 L Glucose 490 H POC Glucose > 500 H Lactic Acid Calcium 7.0 L Magnesium Total Bilirubin AST ALT Alkaline Phosphatase Ammonia Troponin T C-Reactive Protein Total Protein Albumin Prealbumin TSH Crossmatch 09/21/16 09/21/16 09/21/16 08:20 09:17 12:09 WBC RBC Hgb Hct MCV MCH MCHC RDW Plt Count Seg Neutrophils % Seg Neuts % (Manual) Nucleated RBC % Seg Neutrophils # Seg Neutrophils # Man PT INR POC ABG pH 7.464 H POC ABG pCO2 29.3 L POC ABG pO2 198 H Sodium Potassium Chloride Carbon Dioxide BUN Creatinine Glucose POC Glucose 248 H Lactic Acid Calcium Magnesium Total Bilirubin AST ALT Alkaline Phosphatase Ammonia Troponin T C-Reactive Protein Total Protein Albumin Prealbumin TSH Crossmatch See Detail 09/21/16 09/21/16 09/21/16 15:21 17:36 18:49 WBC RBC Hgb Hct MCV MCH MCHC RDW Plt Count Seg Neutrophils % Seg Neuts % (Manual) Nucleated RBC % Seg Neutrophils # Seg Neutrophils # Man PT INR POC ABG pH POC ABG pCO2 POC ABG pO2 Sodium Potassium Chloride Carbon Dioxide BUN Creatinine Glucose POC Glucose 403 H 437 H 482 H Lactic Acid Calcium Magnesium Total Bilirubin AST ALT Alkaline Phosphatase Ammonia Troponin T C-Reactive Protein Total Protein Albumin Prealbumin TSH Crossmatch 09/21/16 09/22/16 09/22/16 23:29 00:00 01:29 WBC 14.8 H RBC 2.94 L Hgb 9.1 L D Hct 27.5 L D MCV MCH MCHC RDW 16.7 H Plt Count Seg Neutrophils % Seg Neuts % (Manual) Nucleated RBC % Seg Neutrophils # Seg Neutrophils # Man PT INR POC ABG pH POC ABG pCO2 POC ABG pO2 Sodium Potassium Chloride Carbon Dioxide BUN Creatinine Glucose POC Glucose 311 H 288 H Lactic Acid Calcium Magnesium Total Bilirubin AST ALT Alkaline Phosphatase Ammonia Troponin T C-Reactive Protein Total Protein Albumin Prealbumin TSH Crossmatch 09/22/16 09/22/16 09/22/16 02:29 03:12 03:26 WBC RBC Hgb Hct MCV MCH MCHC RDW Plt Count Seg Neutrophils % Seg Neuts % (Manual) Nucleated RBC % Seg Neutrophils # Seg Neutrophils # Man PT INR POC ABG pH 7.460 H POC ABG pCO2 29.9 L POC ABG pO2 112 H Sodium Potassium Chloride Carbon Dioxide BUN Creatinine Glucose POC Glucose 261 H 239 H Lactic Acid Calcium Magnesium Total Bilirubin AST ALT Alkaline Phosphatase Ammonia Troponin T C-Reactive Protein Total Protein Albumin Prealbumin TSH Crossmatch 09/22/16 09/22/16 09/22/16 05:35 06:40 06:40 WBC 13.5 H RBC 3.18 L Hgb 9.5 L Hct 28.8 L MCV MCH MCHC RDW 16.2 H Plt Count Seg Neutrophils % Seg Neuts % (Manual) Nucleated RBC % Seg Neutrophils # Seg Neutrophils # Man PT INR POC ABG pH POC ABG pCO2 POC ABG pO2 Sodium 147 H Potassium 3.2 L D Chloride 112.3 H Carbon Dioxide BUN 49 H Creatinine 0.6 L Glucose 102 H POC Glucose 181 H Lactic Acid Calcium 7.5 L Magnesium Total Bilirubin AST ALT Alkaline Phosphatase Ammonia Troponin T C-Reactive Protein Total Protein Albumin Prealbumin TSH Crossmatch 09/22/16 09/22/16 09/22/16 07:16 18:03 20:05 WBC RBC Hgb Hct MCV MCH MCHC RDW Plt Count Seg Neutrophils % Seg Neuts % (Manual) Nucleated RBC % Seg Neutrophils # Seg Neutrophils # Man PT INR POC ABG pH POC ABG pCO2 POC ABG pO2 Sodium Potassium Chloride Carbon Dioxide BUN Creatinine Glucose POC Glucose 152 H 115 H 107 H Lactic Acid Calcium Magnesium Total Bilirubin AST ALT Alkaline Phosphatase Ammonia Troponin T C-Reactive Protein Total Protein Albumin Prealbumin TSH Crossmatch 09/22/16 09/22/16 09/23/16 21:00 23:55 02:02 WBC 13.8 H RBC 3.04 L Hgb 9.2 L Hct 28.0 L MCV MCH MCHC RDW 16.2 H Plt Count Seg Neutrophils % Seg Neuts % (Manual) Nucleated RBC % Seg Neutrophils # Seg Neutrophils # Man PT INR POC ABG pH POC ABG pCO2 POC ABG pO2 Sodium Potassium Chloride Carbon Dioxide BUN Creatinine Glucose POC Glucose 133 H 110 H Lactic Acid Calcium Magnesium Total Bilirubin AST ALT Alkaline Phosphatase Ammonia Troponin T C-Reactive Protein Total Protein Albumin Prealbumin TSH Crossmatch 09/23/16 09/23/16 09/23/16 04:45 04:45 05:36 WBC 13.6 H RBC 2.86 L Hgb 8.6 L Hct 26.4 L MCV MCH MCHC RDW 17.1 H Plt Count Seg Neutrophils % Seg Neuts % (Manual) Nucleated RBC % Seg Neutrophils # Seg Neutrophils # Man PT INR POC ABG pH POC ABG pCO2 POC ABG pO2 Sodium Potassium Chloride 109.2 H Carbon Dioxide 21 L BUN 43 H Creatinine 0.5 L Glucose 152 H POC Glucose 133 H Lactic Acid Calcium 7.7 L Magnesium Total Bilirubin AST ALT Alkaline Phosphatase Ammonia Troponin T C-Reactive Protein Total Protein Albumin Prealbumin TSH Crossmatch 09/23/16 09/23/16 09/23/16 07:42 11:55 13:26 WBC RBC Hgb Hct MCV MCH MCHC RDW Plt Count Seg Neutrophils % Seg Neuts % (Manual) Nucleated RBC % Seg Neutrophils # Seg Neutrophils # Man PT INR POC ABG pH POC ABG pCO2 POC ABG pO2 Sodium Potassium Chloride Carbon Dioxide BUN Creatinine Glucose POC Glucose 175 H 170 H 195 H Lactic Acid Calcium Magnesium Total Bilirubin AST ALT Alkaline Phosphatase Ammonia Troponin T C-Reactive Protein Total Protein Albumin Prealbumin TSH Crossmatch 09/23/16 09/23/16 09/24/16 17:37 21:54 02:56 WBC RBC Hgb Hct MCV MCH MCHC RDW Plt Count Seg Neutrophils % Seg Neuts % (Manual) Nucleated RBC % Seg Neutrophils # Seg Neutrophils # Man PT INR POC ABG pH POC ABG pCO2 POC ABG pO2 Sodium Potassium Chloride Carbon Dioxide BUN Creatinine Glucose POC Glucose 182 H 184 H 187 H Lactic Acid Calcium Magnesium Total Bilirubin AST ALT Alkaline Phosphatase Ammonia Troponin T C-Reactive Protein Total Protein Albumin Prealbumin TSH Crossmatch 09/24/16 09/24/16 09/24/16 05:00 05:00 05:22 WBC RBC 2.82 L Hgb 8.8 L Hct 27.0 L MCV MCH MCHC RDW 17.2 H Plt Count Seg Neutrophils % Seg Neuts % (Manual) Nucleated RBC % Seg Neutrophils # Seg Neutrophils # Man PT INR POC ABG pH POC ABG pCO2 POC ABG pO2 Sodium 148 H Potassium Chloride 115.0 H Carbon Dioxide 21 L BUN 38 H Creatinine 0.6 L Glucose 163 H POC Glucose 194 H Lactic Acid Calcium 7.9 L Magnesium Total Bilirubin AST ALT Alkaline Phosphatase Ammonia Troponin T C-Reactive Protein Total Protein Albumin Prealbumin TSH Crossmatch 09/24/16 09/24/16 09/24/16 11:02 13:55 17:37 WBC RBC Hgb Hct MCV MCH MCHC RDW Plt Count Seg Neutrophils % Seg Neuts % (Manual) Nucleated RBC % Seg Neutrophils # Seg Neutrophils # Man PT INR POC ABG pH POC ABG pCO2 POC ABG pO2 Sodium Potassium Chloride Carbon Dioxide BUN Creatinine Glucose POC Glucose 210 H 182 H 169 H Lactic Acid Calcium Magnesium Total Bilirubin AST ALT Alkaline Phosphatase Ammonia Troponin T C-Reactive Protein Total Protein Albumin Prealbumin TSH Crossmatch 09/25/16 09/25/16 09/25/16 02:15 05:14 09:48 WBC RBC 2.76 L Hgb 8.7 L Hct 26.2 L MCV MCH MCHC RDW 17.3 H Plt Count Seg Neutrophils % Seg Neuts % (Manual) Nucleated RBC % Seg Neutrophils # Seg Neutrophils # Man PT INR POC ABG pH POC ABG pCO2 POC ABG pO2 Sodium Potassium Chloride Carbon Dioxide BUN Creatinine Glucose POC Glucose 139 H 151 H Lactic Acid Calcium Magnesium Total Bilirubin AST ALT Alkaline Phosphatase Ammonia Troponin T C-Reactive Protein Total Protein Albumin Prealbumin TSH Crossmatch 09/25/16 09:48 WBC RBC Hgb Hct MCV MCH MCHC RDW Plt Count Seg Neutrophils % Seg Neuts % (Manual) Nucleated RBC % Seg Neutrophils # Seg Neutrophils # Man PT INR POC ABG pH POC ABG pCO2 POC ABG pO2 Sodium 150 H Potassium Chloride 115.6 H Carbon Dioxide BUN 34 H Creatinine 0.4 L Glucose 168 H POC Glucose Lactic Acid Calcium 7.9 L Magnesium Total Bilirubin AST ALT Alkaline Phosphatase Ammonia Troponin T C-Reactive Protein Total Protein Albumin Prealbumin TSH Crossmatch Allied health notes reviewed: RT
--- NOTE | 2016-09-25 15:54 | Progress Note ---
Assessment and Plan Patient is a 61-year-old morbid obese woman with a history of congestive heart failure, severe protein calorie malnutrition (bilateral jainism muscle severe wasting, hypothenar muscle wasting) with BMI of 81.6, functional quadriplegia, type 2 diabetes mellitus, hypertension, multiple skin breakdown between legs and thighs who presented to the hospital via EMS with AMS. 2D echocardiogram with ejection fraction of 50-55%. During the past admission, patient was recommended for placement but refused. On presentation to ED, patient was felt to be unable to maintain her airways and intubated the ER since 08/29/16. 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, poa: supportative care, Unable to get CT head due to weight issues -Acute on chronic diastolic congestive heart failure: treated with diuresis -Acute on chronic respiratory failure, intubated > 96 hours -Septic shock off IV solucorticef and midodrine -Severe anemia s/p blood transfusion: monitor cbc closely altered -Paroxysmal atrial fibrillation -Non-ST elevated [place] type 2: Conservative management -Acute on chronic kidney disease III, likely secondary to vasomotor nephropathy- POA -Transaminitis-elevated alkaline phosphatase and AST: continue to monitor -Severe protein calorie malnutrition albumin 1.2 -Morbid obesity BMI 81.6 -Mulitple PRESSURE ULCERS-POA: consulted wound care -uncontrolled dm: on ssi, s/p insulin drip -Acute anemia with drop in HCT s/p 5 units of PRBC transfused so far. Ordered 2 more units. - hypernatremia, will monitor with repeat BMP, ivf -Dvt prophylaxis: sq lovenox per [facility] Disposition: LTAC declined, case management is working on plan DNR 09/04/16 , boyfriendTad agreed to blood transfusion, hgb is 6.0 will transfuse 2 units==>h/h steady, continue to monitor 09/05/16: Overnight was very eventful. New issue: Status epilepticus most likely due to anoxic brain injury, poa. She is back on 8 mcg of Levophed, which had weaned off up to the point of seizure activity Patient had status epilepticus before receiving blood transfusions. She was given multiple doses of Ativan and was still having breakthrough seizures. She was given phenobarbital and Dilantin but still having seizures. I started propofol drip which is helping. She still on IV Ativan drip also. Difficult family dynamics: Her son (she has multiple children), Srikanth and sister Leanne were at her bedside and well as her boyfriend who is not her legal , which he told me. They are upset because they didn't know patient was in the hospital. It appears the gentleman in the room is her boyfriend and not her legal He also did not notify the family the patient was here. That gentleman who is her boyfriend dropped the patient's wallet and our security called the number inside the wallet which was patient's mother's number and this is how the family found out that patient was in the hospital. I was told by RN, that patient has no , patient has 7 siblings and they are estranged from mother. No legal POA but sister Leanne is active in sister's life. Her boyfriend name is Tad Vieyra and he has consistently been at her beside, holding her hand and being supportive. 09/10/16 (resumed care): Trying to get to LTAC, still on 2 mcg of Levaphed but not sedated==>?Significant anoxic brain injury most likely poa, Ethic committee consulted because some family members want to withdraw. 09/11/16, Trach aspirated GNR, continue abx pending identification, off levaphed today. Trying to get to LTAC, they can trach her there. Only [facility] takes her insurance 09/12/16 Trach aspirate still pending, new issue of hypothermia, responded to [facility] [employer], tube feeding low rate due to high residuals, abd xray unremarkable. Potassium replaced. No restraints needs, no sedation needed, poor prognosis 09/15/16(resumed care): new issue seizure, gave 1mg iv ativan x 1. Awaiting to go to [facility], they want to trach and peg when she gets there. 09/16-11/26: cpm, no new seizures. 09/18/16: [facility] did not accept patient, so trach and peg here. Patient has been intubated since 08/29/16. 09/19/16 no new issue, trying to wean 09/20/16: d/w boyfriend at bedside. He believes she is having purposefully spontaneous movements, like blinking. Heart rate went up to 150s but spontaneously went down without any medications given. 09/21/16: Overnight she became hypotensive, Levophed drip restarted at 12mcg, hgb found to be 4.6, blood transfusions ordered, hyperglycemic worse, so Levemir increased and then placed to insulin drip, She has apneic breathing on vent, POOR sign. 09/22/16: no new issue, off levophed and insulin drip this am. Cont current supportive care 09/23/16: BP at high 90s, still off levophed, but may need to restart if BP continue to be low. On NG suction. GI advised medical mx for anemia, no plan for endoscopy now. discussed with CC attending, plan for trach and PEG soon, She is on protonix drip. H and H remained stable. 09/24/16: back on levophed drip, GS to schedule trach/PEG. 09/25/16: place free H2O with tube feeding for hypernatremia, monitor BMP Subjective Date of service: 09/25/16 Principal diagnosis: Acute Hypoxemic Hypercapnic Resp Failure; Severe Sepsis Interval history: Patient seen and examined. Follow up on respiratory failure. Patient still intubated. Boy friend at bedside. She appears still unresponsive. Objective - Exam Narrative Exam: GEN: Critically ill, morbid obese BMI 81.6, intubated, HEENT: Pupils are pinpoint and reactive, ET tube in place NECK: SUPPLE, NO THYROMEGALY, NO JVD, NO LAD CVS: regular irregular NORMAL S1S2 LUNGS/CHEST: TA B, NORMAL CHEST EXPANSION B, GOOD AIR ENTRY B ABD: SOFT, NONDISTENDED GBS, NO REBOUND OR GUARDING NEURO: doesn't follow commands PSY: awake with eyes open Extremities: 3+ edema - Constitutional Vitals: Vital Signs - 12hr 09/25/16 09/25/16 09/25/16 04:00 04:10 04:20 Temperature 98.8 F Pulse Rate 81 71 75 Pulse Rate [ Anterior Bilateral Throughout] Pulse Rate [ 97 H From Monitor] Respiratory 25 H 25 H 25 H Rate Respiratory Rate [Anterior Bilateral Throughout] Blood Pressure 128/63 128/63 108/52 O2 Sat by Pulse 100 100 100 Oximetry 09/25/16 09/25/16 09/25/16 04:24 04:30 04:40 Temperature Pulse Rate 83 72 85 Pulse Rate [ Anterior Bilateral Throughout] Pulse Rate [ From Monitor] Respiratory 25 H 25 H Rate Respiratory Rate [Anterior Bilateral Throughout] Blood Pressure 128/63 121/55 121/55 O2 Sat by Pulse 100 100 100 Oximetry 09/25/16 09/25/16 09/25/16 04:50 05:00 05:10 Temperature Pulse Rate 63 77 81 Pulse Rate [ Anterior Bilateral Throughout] Pulse Rate [ From Monitor] Respiratory 25 H 25 H 25 H Rate Respiratory Rate [Anterior Bilateral Throughout] Blood Pressure 100/64 123/54 123/54 O2 Sat by Pulse 100 100 100 Oximetry 09/25/16 09/25/16 09/25/16 05:20 05:30 05:40 Temperature Pulse Rate 109 H Pulse Rate [ Anterior Bilateral Throughout] Pulse Rate [ From Monitor] Respiratory 21 Rate Respiratory Rate [Anterior Bilateral Throughout] Blood Pressure 115/59 115/59 115/59 O2 Sat by Pulse 100 100 100 Oximetry 09/25/16 09/25/16 09/25/16 05:50 06:00 06:03 Temperature Pulse Rate 88 81 Pulse Rate [ Anterior Bilateral Throughout] Pulse Rate [ From Monitor] Respiratory 16 Rate Respiratory Rate [Anterior Bilateral Throughout] Blood Pressure 115/59 114/88 O2 Sat by Pulse 95 Oximetry 09/25/16 09/25/16 09/25/16 06:10 06:20 06:30 Temperature Pulse Rate 76 87 88 Pulse Rate [ Anterior Bilateral Throughout] Pulse Rate [ From Monitor] Respiratory 26 H 25 H 27 H Rate Respiratory Rate [Anterior Bilateral Throughout] Blood Pressure 107/88 114/88 O2 Sat by Pulse 100 100 99 Oximetry 09/25/16 09/25/16 09/25/16 06:40 06:50 07:00 Temperature Pulse Rate 88 87 89 Pulse Rate [ Anterior Bilateral Throughout] Pulse Rate [ From Monitor] Respiratory 26 H 23 26 H Rate Respiratory Rate [Anterior Bilateral Throughout] Blood Pressure 114/88 114/88 152/107 O2 Sat by Pulse 100 100 100 Oximetry 09/25/16 09/25/16 09/25/16 07:10 07:20 07:30 Temperature Pulse Rate 84 86 95 H Pulse Rate [ Anterior Bilateral Throughout] Pulse Rate [ From Monitor] Respiratory 17 26 H 26 H Rate Respiratory Rate [Anterior Bilateral Throughout] Blood Pressure 152/107 152/107 154/76 O2 Sat by Pulse 100 100 100 Oximetry 09/25/16 09/25/16 09/25/16 07:34 07:40 07:49 Temperature Pulse Rate 90 95 H 93 H Pulse Rate [ 90 93 H Anterior Bilateral Throughout] Pulse Rate [ From Monitor] Respiratory 24 31 H Rate Respiratory 25 H 31 H Rate [Anterior Bilateral Throughout] Blood Pressure 152/107 154/76 156/75 O2 Sat by Pulse 100 100 100 Oximetry 09/25/16 09/25/16 09/25/16 07:50 08:00 08:10 Temperature 97.5 F L Pulse Rate 85 89 89 Pulse Rate [ Anterior Bilateral Throughout] Pulse Rate [ 90 From Monitor] Respiratory 21 33 H 29 H Rate Respiratory Rate [Anterior Bilateral Throughout] Blood Pressure 156/75 148/94 148/94 O2 Sat by Pulse 100 100 100 Oximetry 09/25/16 09/25/16 09/25/16 08:20 08:30 08:40 Temperature Pulse Rate 94 H 84 70 Pulse Rate [ Anterior Bilateral Throughout] Pulse Rate [ From Monitor] Respiratory 30 H 22 23 Rate Respiratory Rate [Anterior Bilateral Throughout] Blood Pressure 148/94 133/109 133/109 O2 Sat by Pulse 100 100 100 Oximetry 09/25/16 09/25/16 09/25/16 08:50 09:00 09:10 Temperature Pulse Rate 73 65 65 Pulse Rate [ Anterior Bilateral Throughout] Pulse Rate [ From Monitor] Respiratory 29 H 24 22 Rate Respiratory Rate [Anterior Bilateral Throughout] Blood Pressure 133/109 153/62 153/62 O2 Sat by Pulse 100 100 100 Oximetry 09/25/16 09/25/16 09/25/16 09:20 09:30 09:40 Temperature Pulse Rate 73 73 69 Pulse Rate [ Anterior Bilateral Throughout] Pulse Rate [ From Monitor] Respiratory 26 H 28 H 26 H Rate Respiratory Rate [Anterior Bilateral Throughout] Blood Pressure 153/62 149/83 149/83 O2 Sat by Pulse 100 100 100 Oximetry 09/25/16 09/25/16 09/25/16 09:50 10:00 10:10 Temperature Pulse Rate 75 78 78 Pulse Rate [ Anterior Bilateral Throughout] Pulse Rate [ From Monitor] Respiratory 27 H 28 H 27 H Rate Respiratory Rate [Anterior Bilateral Throughout] Blood Pressure 149/83 155/64 155/64 O2 Sat by Pulse 100 100 100 Oximetry 09/25/16 09/25/16 09/25/16 10:20 10:30 10:40 Temperature Pulse Rate 80 83 77 Pulse Rate [ Anterior Bilateral Throughout] Pulse Rate [ From Monitor] Respiratory 28 H 27 H 27 H Rate Respiratory Rate [Anterior Bilateral Throughout] Blood Pressure 155/64 155/64 129/104 O2 Sat by Pulse 100 100 100 Oximetry 09/25/16 09/25/16 09/25/16 10:50 10:51 11:00 Temperature Pulse Rate 80 74 79 Pulse Rate [ Anterior Bilateral Throughout] Pulse Rate [ From Monitor] Respiratory 29 H 26 H 27 H Rate Respiratory Rate [Anterior Bilateral Throughout] Blood Pressure 129/104 129/104 129/104 O2 Sat by Pulse 100 100 100 Oximetry 09/25/16 09/25/16 09/25/16 11:10 11:20 11:30 Temperature Pulse Rate 79 80 80 Pulse Rate [ Anterior Bilateral Throughout] Pulse Rate [ From Monitor] Respiratory H 22 26 H Rate Respiratory Rate [Anterior Bilateral Throughout] Blood Pressure 123/30 123/30 133/89 O2 Sat by Pulse 100 100 Oximetry 09/25/16 09/25/16 09/25/16 11:40 11:50 12:00 Temperature Pulse Rate 82 81 69 Pulse Rate [ Anterior Bilateral Throughout] Pulse Rate [ 69 From Monitor] Respiratory 25 H 25 H 24 Rate Respiratory Rate [Anterior Bilateral Throughout] Blood Pressure 133/89 133/89 149/46 O2 Sat by Pulse 100 100 100 Oximetry 09/25/16 09/25/16 09/25/16 12:06 12:10 12:20 Temperature Pulse Rate 76 62 64 Pulse Rate [ Anterior Bilateral Throughout] Pulse Rate [ From Monitor] Respiratory 24 23 Rate Respiratory Rate [Anterior Bilateral Throughout] Blood Pressure 133/89 149/46 149/46 O2 Sat by Pulse 100 100 Oximetry 09/25/16 09/25/16 09/25/16 12:30 12:40 12:50 Temperature Pulse Rate 66 63 69 Pulse Rate [ Anterior Bilateral Throughout] Pulse Rate [ From Monitor] Respiratory 22 25 H 28 H Rate Respiratory Rate [Anterior Bilateral Throughout] Blood Pressure 124/74 124/74 124/74 O2 Sat by Pulse 100 100 100 Oximetry 09/25/16 09/25/16 09/25/16 13:00 13:10 13:20 Temperature Pulse Rate 67 68 73 Pulse Rate [ Anterior Bilateral Throughout] Pulse Rate [ From Monitor] Respiratory 27 H 25 H 27 H Rate Respiratory Rate [Anterior Bilateral Throughout] Blood Pressure 115/82 115/82 115/82 O2 Sat by Pulse 100 100 97 Oximetry 09/25/16 09/25/16 09/25/16 13:30 13:40 13:50 Temperature Pulse Rate 69 67 73 Pulse Rate [ Anterior Bilateral Throughout] Pulse Rate [ From Monitor] Respiratory 26 H 23 16 Rate Respiratory Rate [Anterior Bilateral Throughout] Blood Pressure 121/84 115/82 115/82 O2 Sat by Pulse 100 100 75 L Oximetry 09/25/16 09/25/16 14:00 14:10 Temperature Pulse Rate 65 71 Pulse Rate [ Anterior Bilateral Throughout] Pulse Rate [ From Monitor] Respiratory 24 27 H Rate Respiratory Rate [Anterior Bilateral Throughout] Blood Pressure 138/58 138/58 O2 Sat by Pulse 100 72 L Oximetry - Labs CBC & Chem 7: 09/25/16 09:48 09/25/16 09:48 Labs: Abnormal lab results 09/24/16 09/25/16 09/25/16 Range/Units 17:37 02:15 05:14 RBC (3.65-5.03) M/mm3 Hgb (10.1-14.3) gm/dl Hct (30.3-42.9) % RDW (13.2-15.2) % Sodium (137-145) mmol/L Chloride (98-107) mmol/L BUN (7-17) mg/dL Creatinine (0.7-1.2) mg/dL Glucose (65-100) mg/dL POC Glucose 169 H 139 H 151 H (70-105) Calcium (8.4-10.2) mg/dL 09/25/16 09/25/16 Range/Units 09:48 09:48 RBC 2.76 L (3.65-5.03) M/mm3 Hgb 8.7 L (10.1-14.3) gm/dl Hct 26.2 L (30.3-42.9) % RDW 17.3 H (13.2-15.2) % Sodium 150 H (137-145) mmol/L Chloride 115.6 H (98-107) mmol/L BUN 34 H (7-17) mg/dL Creatinine 0.4 L (0.7-1.2) mg/dL Glucose 168 H (65-100) mg/dL POC Glucose (70-105) Calcium 7.9 L (8.4-10.2) mg/dL
[2016-09-26] MEDS: DUONEB 0.5 MG-3 MG/3 ML SOLN IH SCH ×4 (02:07→19:24)
[2016-09-26] MEDS: NOVOLOG SUB-Q SCH ×6 (02:26→22:14)
[2016-09-26 04:38] LABS: Hematocrit 26.2 % (30.3-42.9); Hemoglobin 8.6 gm/dl (10.1-14.3); Mean Corpuscular HGB Conc 33 % (30-34); Mean Corpuscular Hemoglobin 31 pg (28-32); Mean Corpuscular Volume 95 fl (79-97); Platelet Count 200 K/mm3 (140-440); Red Blood Count 2.76 M/mm3 (3.65-5.03); Red Cell Distribution Width 18.2 % (13.2-15.2); White Blood Count 6.9 K/mm3 (4.5-11.0)
[2016-09-26 04:53] LABS: Anion Gap 15 mmol/L; Blood Urea Nitrogen 28 mg/dL (7-17); Calcium 7.6 mg/dL (8.4-10.2); Carbon Dioxide 22 mmol/L (22-30); Chloride 114.1 mmol/L (98-107); Glucose 172 mg/dL (65-100); Potassium 3.9 mmol/L (3.6-5.0); Sodium 147 mmol/L (137-145)
[2016-09-26] MEDS: LOPRESSOR PO SCH ×4 (05:28→22:12)
[2016-09-26] MEDS: PROAMATINE PO SCH ×3 (05:28→22:11)
[2016-09-26] MEDS: PROTONIX PO SCH (11:00)
[2016-09-26] MEDS: KEPPRA PO SCH ×2 (11:00→22:06)
[2016-09-26] MEDS: LEVEMIR SUB-Q SCH (11:00)
[2016-09-26] MEDS: FERROUS SULFATE PO SCH (11:00)
[2016-09-26] MEDS: FOLVITE PO SCH (11:00)
[2016-09-26] MEDS: POTASSIUM CHLORIDE FEEDTUBE SCH (11:00)
[2016-09-26] MEDS: SYNTHROID PO SCH (11:55)
--- NOTE | 2016-09-26 15:56 | Progress Note ---
Assessment and Plan (1) Respiratory failure Current Visit: Yes Status: Acute Qualifiers: Chronicity: C Respiratory failure complication: R Plan to address problem: - continue to Wean FIO2 for O2 sats>92% - continue VTE prophylaxis (SCD's re: thrombocytopenia) - continue Stress ulcer prophylaxis (Pantoprazole) - continuing sedation vacations while watching for any obvious seizure activity - continue Lung protective strategies - seen by surgery and consent to be obtained today for trach +/- PEG once clinically and technically feasible - following clinically otherwise - resumed daytime PSV trials - resumed gentle diuresis (2) Shock Current Visit: Yes Status: Acute Plan to address problem: - Initially treated as septic shock secondary to HCAP earlier - continue strict glycemic control - completed AB's course; trending WBC - ID following - tapered off stress steroids now - continue midodrine for now but tapering - likely hypovolemic shock at this point with GI bleeding - s/p 4 units PRBC's - received a liter of IVNS - weaned off levophed now (3) Acute on chronic diastolic (congestive) heart failure Current Visit: No Status: Acute Plan to address problem: - Documented EF 55% - Continue to monitoring renal function and electrolyte profile closely - continue to monitor urine output, electrolyte profile (4) Altered mental status Current Visit: Yes Status: Acute Qualifiers: Altered mental status type: unspecified Coma depth: C Coma timing: C Qualified Code(s): R41.82 - Altered mental status, unspecified Plan to address problem: - Neurology following - on keppra - weaned off ativan and will use prn now - TSH elevated and started on low dose levoxyl (5) Morbid obesity Current Visit: Yes Status: Acute Qualifiers: Obesity type: unspecified obesity type Qualified Code(s): E66.01 - Morbid ( severe) obesity due to excess calories - weight loss strategies once more stable - caloric intake per public works technician at this point (6) Anemia Current Visit: Yes Status: Acute Qualifiers: Anemia type: unspecified type Iron deficiency anemia type: I Vitamin B12 deficiency anemia type: V Folate deficiency anemia type: F Bone marrow failure anemia type: B Hemolytic anemia type: H Other causes of anemia: O Qualified Code(s): D64.9 - Anemia, unspecified Plan to address problem: - acute GI bleed - to receive 4 units PRBC's in all and will have 2 on hold - GI evaluation ordered - begin protonix drip - H&H holding - protonix drip to stop today - resume tube feeds at 10mls/hr (Lower GI bleed and no rebleed X 48hrs; GI signed off) - advancing slowly to goal rate at this point (7) Status epilepticus Current Visit: Yes Status: Acute Plan to address problem: - Continue AEDs - Neurology following - no obvious clinical seizure activity (8) 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 - This could be secondary to an intra-cranial process, however unable to obtain neuro-imaging, patient's weight exceeds allowable maximum (9) Discharge planning issues Current Visit: Yes Status: Acute Plan to address problem: - Continue current care. - need to determine appropriate power of claims attorney / legal healthcare key account representative prior to any tentative withdrawal of care - son came by and signed DNR order however no consensus on hospice care / withdrawal - LTAC refused admission ..she remains critically ill on life sustaining interventions including MVS and back on vasopressors at high risk for further deterioration including ....30' CCT Subjective Date of service: 09/26/16 Principal diagnosis: Acute Hypoxemic Hypercapnic Resp Failure; Severe Sepsis Interval history: Seen and examined at bedside; 24 hour events reviewed; nursing and respiratory care staff consulted; no adverse overnight events reported to me; remains on MVS ; AMS is persistent; On PSV 10/5 and 40% FiO2 Objective Vital Signs - 12hr 09/26/16 09/26/16 09/26/16 03:59 04:00 05:00 Temperature 97.9 F Pulse Rate 89 83 Pulse Rate [ Anterior Bilateral Throughout] Pulse Rate [ From Monitor] Respiratory 31 H 23 Rate Respiratory Rate [Anterior Bilateral Throughout] Blood Pressure 136/96 136/96 O2 Sat by Pulse 100 100 Oximetry 09/26/16 09/26/16 09/26/16 05:28 06:00 07:00 Temperature Pulse Rate 73 70 74 Pulse Rate [ Anterior Bilateral Throughout] Pulse Rate [ From Monitor] Respiratory 15 24 Rate Respiratory Rate [Anterior Bilateral Throughout] Blood Pressure 148/92 148/92 131/89 O2 Sat by Pulse 100 100 Oximetry 09/26/16 09/26/16 09/26/16 08:00 08:15 08:19 Temperature 97.5 F L Pulse Rate 71 63 Pulse Rate [ 63 Anterior Bilateral Throughout] Pulse Rate [ 74 From Monitor] Respiratory 24 Rate Respiratory 20 Rate [Anterior Bilateral Throughout] Blood Pressure 133/67 133/67 O2 Sat by Pulse 100 100 Oximetry 09/26/16 09/26/16 09/26/16 08:30 09:00 10:00 Temperature Pulse Rate 72 67 Pulse Rate [ 66 Anterior Bilateral Throughout] Pulse Rate [ From Monitor] Respiratory 28 H 27 H Rate Respiratory 20 Rate [Anterior Bilateral Throughout] Blood Pressure 113/63 106/61 O2 Sat by Pulse 100 100 Oximetry 09/26/16 09/26/16 09/26/16 11:00 11:30 11:56 Temperature Pulse Rate 69 75 63 Pulse Rate [ Anterior Bilateral Throughout] Pulse Rate [ From Monitor] Respiratory 27 H 29 H Rate Respiratory Rate [Anterior Bilateral Throughout] Blood Pressure 106/61 112/63 92/72 O2 Sat by Pulse 100 100 Oximetry 09/26/16 09/26/16 09/26/16 12:00 13:00 14:25 Temperature 97.3 F L Pulse Rate 61 74 Pulse Rate [ 72 Anterior Bilateral Throughout] Pulse Rate [ 69 From Monitor] Respiratory 32 H 26 H Rate Respiratory 23 Rate [Anterior Bilateral Throughout] Blood Pressure 95/72 112/86 O2 Sat by Pulse 91 100 Oximetry Constitutional: no acute distress, other (encephalopathic) Eyes: non-icteric ENT: oropharynx moist, other (ETT 22cm RAFAEL) Neck: supple, no lymphadenopathy Effort: mildly labored Ascultation: Bilateral: diminished breath sounds, rales (bases) Cardiovascular: regular rate and rhythm Gastrointestinal: hypoactive bowel sounds, soft, non-tender, non-distended Integumentary: normal Extremities: no cyanosis, pulses normal, no ischemia or petechiae, edema (1++) Neurologic: unable to assess, other (lethargic) Psychiatric: other (sedated) CBC and BMP: 09/26/16 03:46 09/26/16 03:46 ABG, PT/INR, D-dimer: ABG POC ABG pH 7.460 (7.35-7.45) H 09/22/16 03:26 POC ABG pCO2 29.9 (35-45) L 09/22/16 03:26 POC ABG pO2 112 (80-105) H 09/22/16 03:26 POC ABG HCO3 21.3 09/22/16 03:26 POC ABG Total CO2 22 09/22/16 03:26 POC ABG O2 Sat 99 09/22/16 03:26 PT/INR, D-dimer PT 13.8 Sec. (12.2-14.9) 09/10/16 05:10 INR 1.07 (0.87-1.13) 09/10/16 05:10 Abnormal lab findings: Abnormal Labs 08/29/16 08/30/16 08/30/16 21:59 00:16 05:39 WBC RBC Hgb Hct MCV MCH MCHC RDW Plt Count Seg Neutrophils % Seg Neuts % (Manual) Nucleated RBC % Seg Neutrophils # Seg Neutrophils # Man PT INR POC ABG pH POC ABG pCO2 POC ABG pO2 Sodium Potassium Chloride Carbon Dioxide BUN Creatinine Glucose POC Glucose 106 H 128 H Lactic Acid Calcium Magnesium Total Bilirubin AST ALT Alkaline Phosphatase Ammonia Troponin T C-Reactive Protein Total Protein Albumin Prealbumin 0.120 L TSH Crossmatch 08/30/16 08/30/16 08/30/16 10:30 10:30 11:12 WBC 11.1 H RBC 3.16 L Hgb 8.7 L Hct 29.9 L MCV MCH MCHC 29 L RDW 25.0 H Plt Count Seg Neutrophils % 78.6 H Seg Neuts % (Manual) Nucleated RBC % Seg Neutrophils # 8.7 H Seg Neutrophils # Man PT INR POC ABG pH POC ABG pCO2 POC ABG pO2 Sodium 135 L Potassium Chloride Carbon Dioxide 20 L BUN Creatinine 1.5 H Glucose 148 H POC Glucose 142 H Lactic Acid Calcium 7.2 L Magnesium Total Bilirubin 1.30 H AST 143 H ALT Alkaline Phosphatase 392 H Ammonia Troponin T C-Reactive Protein Total Protein 6.1 L Albumin 1.2 L Prealbumin TSH Crossmatch 08/30/16 08/30/16 08/30/16 17:41 18:03 18:18 WBC RBC Hgb Hct MCV MCH MCHC RDW Plt Count Seg Neutrophils % Seg Neuts % (Manual) Nucleated RBC % Seg Neutrophils # Seg Neutrophils # Man PT INR POC ABG pH 7.316 L POC ABG pCO2 POC ABG pO2 44 L 59 L Sodium Potassium Chloride Carbon Dioxide BUN Creatinine Glucose POC Glucose 150 H Lactic Acid Calcium Magnesium Total Bilirubin AST ALT Alkaline Phosphatase Ammonia Troponin T C-Reactive Protein Total Protein Albumin Prealbumin TSH Crossmatch 08/30/16 08/30/16 08/31/16 22:20 22:20 00:11 WBC RBC Hgb Hct MCV MCH MCHC RDW Plt Count Seg Neutrophils % Seg Neuts % (Manual) Nucleated RBC % Seg Neutrophils # Seg Neutrophils # Man PT INR POC ABG pH POC ABG pCO2 POC ABG pO2 Sodium Potassium Chloride Carbon Dioxide BUN Creatinine Glucose POC Glucose 133 H Lactic Acid 2.30 H* Calcium Magnesium Total Bilirubin AST ALT Alkaline Phosphatase Ammonia Troponin T C-Reactive Protein 10.20 H Total Protein Albumin Prealbumin TSH Crossmatch 08/31/16 08/31/16 08/31/16 04:20 04:20 04:20 WBC 18.3 H RBC 3.19 L Hgb 8.8 L Hct 30.0 L MCV MCH 27 L MCHC 29 L RDW 23.9 H Plt Count Seg Neutrophils % Seg Neuts % (Manual) Nucleated RBC % Seg Neutrophils # Seg Neutrophils # Man PT 16.8 H INR 1.37 H POC ABG pH POC ABG pCO2 POC ABG pO2 Sodium 136 L Potassium Chloride Carbon Dioxide 19 L BUN Creatinine 1.5 H Glucose 125 H POC Glucose Lactic Acid Calcium 7.0 L Magnesium Total Bilirubin 1.50 H AST 131 H ALT Alkaline Phosphatase 431 H Ammonia Troponin T C-Reactive Protein Total Protein 6.2 L Albumin 1.2 L Prealbumin TSH Crossmatch 08/31/16 08/31/16 08/31/16 04:20 05:22 05:24 WBC RBC Hgb Hct MCV MCH MCHC RDW Plt Count Seg Neutrophils % Seg Neuts % (Manual) Nucleated RBC % Seg Neutrophils # Seg Neutrophils # Man PT INR POC ABG pH POC ABG pCO2 POC ABG pO2 142 H Sodium Potassium Chloride Carbon Dioxide BUN Creatinine Glucose POC Glucose 123 H Lactic Acid Calcium Magnesium Total Bilirubin AST ALT Alkaline Phosphatase Ammonia 70.0 H Troponin T C-Reactive Protein Total Protein Albumin Prealbumin TSH Crossmatch 08/31/16 08/31/16 08/31/16 12:10 15:45 17:38 WBC RBC Hgb Hct MCV MCH MCHC RDW Plt Count Seg Neutrophils % Seg Neuts % (Manual) Nucleated RBC % Seg Neutrophils # Seg Neutrophils # Man PT INR POC ABG pH POC ABG pCO2 POC ABG pO2 Sodium 136 L Potassium Chloride Carbon Dioxide 21 L BUN Creatinine 1.5 H Glucose 160 H POC Glucose 147 H 151 H Lactic Acid Calcium 6.9 L Magnesium Total Bilirubin AST ALT Alkaline Phosphatase Ammonia Troponin T 0.109 H* D C-Reactive Protein Total Protein Albumin Prealbumin TSH Crossmatch 09/01/16 09/01/16 09/01/16 00:09 04:00 04:00 WBC 14.8 H RBC 2.89 L Hgb 7.8 L Hct 27.2 L MCV MCH 27 L MCHC 29 L RDW 24.4 H Plt Count Seg Neutrophils % Seg Neuts % (Manual) Nucleated RBC % Seg Neutrophils # Seg Neutrophils # Man PT 18.2 H INR 1.51 H POC ABG pH POC ABG pCO2 POC ABG pO2 Sodium Potassium Chloride Carbon Dioxide BUN Creatinine Glucose POC Glucose 192 H Lactic Acid Calcium Magnesium Total Bilirubin AST ALT Alkaline Phosphatase Ammonia Troponin T C-Reactive Protein Total Protein Albumin Prealbumin TSH Crossmatch 09/01/16 09/01/16 09/01/16 04:00 05:28 11:28 WBC RBC Hgb Hct MCV MCH MCHC RDW Plt Count Seg Neutrophils % Seg Neuts % (Manual) Nucleated RBC % Seg Neutrophils # Seg Neutrophils # Man PT INR POC ABG pH POC ABG pCO2 POC ABG pO2 Sodium Potassium Chloride Carbon Dioxide 20 L BUN Creatinine 1.6 H Glucose 183 H POC Glucose 189 H 207 H Lactic Acid Calcium 6.9 L Magnesium Total Bilirubin 1.30 H AST 138 H ALT Alkaline Phosphatase 520 H Ammonia Troponin T C-Reactive Protein Total Protein 6.1 L Albumin 1.2 L Prealbumin TSH Crossmatch 09/01/16 09/01/16 09/02/16 16:56 23:49 05:00 WBC RBC Hgb Hct MCV MCH MCHC RDW Plt Count Seg Neutrophils % Seg Neuts % (Manual) Nucleated RBC % Seg Neutrophils # Seg Neutrophils # Man PT 18.0 H INR 1.49 H POC ABG pH POC ABG pCO2 POC ABG pO2 Sodium Potassium Chloride Carbon Dioxide BUN Creatinine Glucose POC Glucose 250 H 307 H Lactic Acid Calcium Magnesium Total Bilirubin AST ALT Alkaline Phosphatase Ammonia Troponin T C-Reactive Protein Total Protein Albumin Prealbumin TSH Crossmatch 09/02/16 09/02/16 09/02/16 05:00 05:00 05:45 WBC 12.3 H RBC 2.57 L Hgb 7.1 L Hct 23.4 L MCV MCH MCHC RDW 23.9 H Plt Count Seg Neutrophils % Seg Neuts % (Manual) 72.0 H Nucleated RBC % 25.0 H Seg Neutrophils # Seg Neutrophils # Man 8.9 H PT INR POC ABG pH POC ABG pCO2 POC ABG pO2 Sodium Potassium Chloride Carbon Dioxide BUN Creatinine 1.4 H Glucose 299 H POC Glucose 327 H Lactic Acid Calcium 7.0 L Magnesium Total Bilirubin AST ALT Alkaline Phosphatase Ammonia Troponin T C-Reactive Protein Total Protein Albumin Prealbumin TSH Crossmatch 09/02/16 09/02/16 09/02/16 12:22 17:22 23:24 WBC RBC Hgb Hct MCV MCH MCHC RDW Plt Count Seg Neutrophils % Seg Neuts % (Manual) Nucleated RBC % Seg Neutrophils # Seg Neutrophils # Man PT INR POC ABG pH POC ABG pCO2 POC ABG pO2 Sodium Potassium Chloride Carbon Dioxide BUN Creatinine Glucose POC Glucose 310 H 358 H 286 H Lactic Acid Calcium Magnesium Total Bilirubin AST ALT Alkaline Phosphatase Ammonia Troponin T C-Reactive Protein Total Protein Albumin Prealbumin TSH Crossmatch 09/03/16 09/03/16 09/03/16 04:10 04:10 04:10 WBC 11.8 H RBC 2.29 L Hgb 6.1 L Hct 21.0 L MCV MCH 27 L MCHC 29 L RDW 24.1 H Plt Count Seg Neutrophils % Seg Neuts % (Manual) Nucleated RBC % Seg Neutrophils # Seg Neutrophils # Man PT 17.6 H INR 1.45 H POC ABG pH POC ABG pCO2 POC ABG pO2 Sodium Potassium Chloride Carbon Dioxide BUN Creatinine 1.4 H Glucose 301 H POC Glucose Lactic Acid Calcium 7.0 L Magnesium Total Bilirubin AST ALT Alkaline Phosphatase Ammonia Troponin T C-Reactive Protein Total Protein Albumin Prealbumin TSH Crossmatch 09/03/16 09/03/16 09/03/16 05:59 11:36 17:42 WBC RBC Hgb Hct MCV MCH MCHC RDW Plt Count Seg Neutrophils % Seg Neuts % (Manual) Nucleated RBC % Seg Neutrophils # Seg Neutrophils # Man PT INR POC ABG pH POC ABG pCO2 POC ABG pO2 Sodium Potassium Chloride Carbon Dioxide BUN Creatinine Glucose POC Glucose 351 H 285 H 259 H Lactic Acid Calcium Magnesium Total Bilirubin AST ALT Alkaline Phosphatase Ammonia Troponin T C-Reactive Protein Total Protein Albumin Prealbumin TSH Crossmatch 09/03/16 09/04/16 09/04/16 23:00 04:27 05:36 WBC RBC Hgb Hct MCV MCH MCHC RDW Plt Count Seg Neutrophils % Seg Neuts % (Manual) Nucleated RBC % Seg Neutrophils # Seg Neutrophils # Man PT INR POC ABG pH 7.544 H POC ABG pCO2 30.8 L POC ABG pO2 78 L Sodium Potassium Chloride Carbon Dioxide BUN Creatinine Glucose POC Glucose 192 H 228 H Lactic Acid Calcium Magnesium Total Bilirubin AST ALT Alkaline Phosphatase Ammonia Troponin T C-Reactive Protein Total Protein Albumin Prealbumin TSH Crossmatch 09/04/16 09/04/16 09/04/16 06:37 06:37 06:39 WBC 21.0 H RBC 2.22 L Hgb 6.0 L Hct 20.1 L MCV MCH 27 L MCHC RDW 24.3 H Plt Count Seg Neutrophils % Seg Neuts % (Manual) Nucleated RBC % Seg Neutrophils # Seg Neutrophils # Man PT 16.8 H INR 1.37 H POC ABG pH POC ABG pCO2 POC ABG pO2 Sodium Potassium Chloride Carbon Dioxide BUN Creatinine 1.4 H Glucose 201 H POC Glucose Lactic Acid Calcium 7.1 L Magnesium Total Bilirubin AST ALT Alkaline Phosphatase Ammonia Troponin T C-Reactive Protein Total Protein Albumin Prealbumin TSH Crossmatch 09/04/16 09/04/16 09/04/16 12:14 15:47 17:41 WBC RBC Hgb Hct MCV MCH MCHC RDW Plt Count Seg Neutrophils % Seg Neuts % (Manual) Nucleated RBC % Seg Neutrophils # Seg Neutrophils # Man PT INR POC ABG pH POC ABG pCO2 POC ABG pO2 Sodium Potassium Chloride Carbon Dioxide BUN Creatinine Glucose POC Glucose 176 H 218 H Lactic Acid Calcium Magnesium Total Bilirubin AST ALT Alkaline Phosphatase Ammonia Troponin T C-Reactive Protein Total Protein Albumin Prealbumin TSH Crossmatch See Detail 09/04/16 09/04/16 09/05/16 21:59 23:48 04:30 WBC RBC Hgb Hct MCV MCH MCHC RDW Plt Count Seg Neutrophils % Seg Neuts % (Manual) Nucleated RBC % Seg Neutrophils # Seg Neutrophils # Man PT 17.2 H INR 1.41 H POC ABG pH POC ABG pCO2 POC ABG pO2 Sodium Potassium Chloride Carbon Dioxide BUN Creatinine Glucose POC Glucose 170 H 121 H Lactic Acid Calcium Magnesium Total Bilirubin AST ALT Alkaline Phosphatase Ammonia Troponin T C-Reactive Protein Total Protein Albumin Prealbumin TSH Crossmatch 09/05/16 09/05/16 09/05/16 04:30 04:30 05:09 WBC 31.9 H RBC 3.11 L Hgb 8.5 L Hct 28.3 L D MCV MCH 27 L MCHC RDW 21.0 H Plt Count Seg Neutrophils % Seg Neuts % (Manual) Nucleated RBC % Seg Neutrophils # Seg Neutrophils # Man PT INR POC ABG pH 7.226 L POC ABG pCO2 61.6 H POC ABG pO2 68 L Sodium 134 L Potassium 5.5 H Chloride 96.6 L Carbon Dioxide BUN 23 H Creatinine 1.6 H Glucose 116 H POC Glucose Lactic Acid Calcium 7.1 L Magnesium Total Bilirubin AST ALT Alkaline Phosphatase Ammonia Troponin T C-Reactive Protein Total Protein Albumin Prealbumin TSH Crossmatch 09/05/16 09/05/16 09/05/16 05:33 12:08 17:32 WBC RBC Hgb Hct MCV MCH MCHC RDW Plt Count Seg Neutrophils % Seg Neuts % (Manual) Nucleated RBC % Seg Neutrophils # Seg Neutrophils # Man PT INR POC ABG pH POC ABG pCO2 POC ABG pO2 Sodium Potassium Chloride Carbon Dioxide BUN Creatinine Glucose POC Glucose 114 H 147 H 174 H Lactic Acid Calcium Magnesium Total Bilirubin AST ALT Alkaline Phosphatase Ammonia Troponin T C-Reactive Protein Total Protein Albumin Prealbumin TSH Crossmatch 09/06/16 09/06/16 09/06/16 03:30 03:30 03:30 WBC 25.4 H RBC 2.57 L Hgb 7.2 L Hct 22.8 L MCV MCH MCHC RDW 20.9 H Plt Count 138 L Seg Neutrophils % Seg Neuts % (Manual) Nucleated RBC % Seg Neutrophils # Seg Neutrophils # Man PT 16.4 H INR 1.33 H POC ABG pH POC ABG pCO2 POC ABG pO2 Sodium Potassium Chloride Carbon Dioxide BUN 36 H Creatinine 1.9 H Glucose POC Glucose Lactic Acid Calcium 7.2 L Magnesium Total Bilirubin AST ALT Alkaline Phosphatase Ammonia Troponin T C-Reactive Protein Total Protein Albumin Prealbumin TSH Crossmatch 09/06/16 09/06/16 09/06/16 11:07 12:03 14:44 WBC RBC Hgb Hct MCV MCH MCHC RDW Plt Count Seg Neutrophils % Seg Neuts % (Manual) Nucleated RBC % Seg Neutrophils # Seg Neutrophils # Man PT INR POC ABG pH POC ABG pCO2 POC ABG pO2 Sodium Potassium Chloride Carbon Dioxide BUN Creatinine Glucose POC Glucose 61 L 55 L Lactic Acid Calcium Magnesium Total Bilirubin AST ALT Alkaline Phosphatase Ammonia Troponin T 0.080 H C-Reactive Protein Total Protein Albumin Prealbumin TSH Crossmatch 09/06/16 09/06/16 09/07/16 21:05 23:53 03:36 WBC RBC Hgb Hct MCV MCH MCHC RDW Plt Count Seg Neutrophils % Seg Neuts % (Manual) Nucleated RBC % Seg Neutrophils # Seg Neutrophils # Man PT INR POC ABG pH POC ABG pCO2 POC ABG pO2 Sodium Potassium Chloride Carbon Dioxide BUN Creatinine Glucose POC Glucose 140 H 178 H 243 H Lactic Acid Calcium Magnesium Total Bilirubin AST ALT Alkaline Phosphatase Ammonia Troponin T C-Reactive Protein Total Protein Albumin Prealbumin TSH Crossmatch 09/07/16 09/07/16 09/07/16 03:42 03:42 05:04 WBC 17.3 H RBC 2.69 L Hgb 7.6 L Hct 23.8 L MCV MCH MCHC RDW 20.5 H Plt Count 137 L Seg Neutrophils % Seg Neuts % (Manual) Nucleated RBC % Seg Neutrophils # Seg Neutrophils # Man PT INR POC ABG pH POC ABG pCO2 POC ABG pO2 Sodium Potassium 3.3 L Chloride Carbon Dioxide BUN 38 H Creatinine 1.6 H Glucose 201 H POC Glucose 241 H Lactic Acid Calcium 7.4 L Magnesium Total Bilirubin AST ALT Alkaline Phosphatase Ammonia Troponin T C-Reactive Protein Total Protein Albumin Prealbumin TSH Crossmatch 09/07/16 09/07/16 09/07/16 11:46 17:41 23:18 WBC RBC Hgb Hct MCV MCH MCHC RDW Plt Count Seg Neutrophils % Seg Neuts % (Manual) Nucleated RBC % Seg Neutrophils # Seg Neutrophils # Man PT INR POC ABG pH POC ABG pCO2 POC ABG pO2 Sodium Potassium Chloride Carbon Dioxide BUN Creatinine Glucose POC Glucose 313 H 227 H 116 H Lactic Acid Calcium Magnesium Total Bilirubin AST ALT Alkaline Phosphatase Ammonia Troponin T C-Reactive Protein Total Protein Albumin Prealbumin TSH Crossmatch 09/08/16 09/08/16 09/08/16 04:00 04:00 05:15 WBC 18.4 H RBC 2.43 L Hgb 6.9 L Hct 21.5 L MCV MCH MCHC RDW 20.5 H Plt Count 119 L Seg Neutrophils % Seg Neuts % (Manual) Nucleated RBC % Seg Neutrophils # Seg Neutrophils # Man PT INR POC ABG pH 7.458 H POC ABG pCO2 POC ABG pO2 177 H Sodium Potassium 3.5 L Chloride Carbon Dioxide BUN 37 H Creatinine 1.3 H Glucose POC Glucose Lactic Acid Calcium 7.1 L Magnesium Total Bilirubin AST ALT Alkaline Phosphatase Ammonia Troponin T C-Reactive Protein Total Protein Albumin Prealbumin TSH Crossmatch 09/08/16 09/08/16 09/08/16 11:00 15:58 23:16 WBC RBC Hgb Hct MCV MCH MCHC RDW Plt Count Seg Neutrophils % Seg Neuts % (Manual) Nucleated RBC % Seg Neutrophils # Seg Neutrophils # Man PT INR POC ABG pH POC ABG pCO2 POC ABG pO2 113 H Sodium Potassium Chloride Carbon Dioxide BUN Creatinine Glucose POC Glucose 40 L Lactic Acid Calcium Magnesium Total Bilirubin AST ALT Alkaline Phosphatase Ammonia Troponin T C-Reactive Protein Total Protein Albumin Prealbumin TSH Crossmatch See Detail 09/09/16 09/09/16 09/09/16 05:02 12:33 18:10 WBC RBC Hgb Hct MCV MCH MCHC RDW Plt Count Seg Neutrophils % Seg Neuts % (Manual) Nucleated RBC % Seg Neutrophils # Seg Neutrophils # Man PT INR POC ABG pH 7.454 H POC ABG pCO2 POC ABG pO2 75 L Sodium Potassium Chloride Carbon Dioxide BUN Creatinine Glucose POC Glucose 59 L Lactic Acid Calcium Magnesium Total Bilirubin AST ALT Alkaline Phosphatase Ammonia Troponin T C-Reactive Protein Total Protein Albumin Prealbumin TSH 5.220 H Crossmatch 09/09/16 09/09/16 09/09/16 18:10 18:10 18:42 WBC 17.0 H RBC 2.90 L Hgb 8.5 L Hct 26.1 L MCV MCH MCHC RDW 17.9 H Plt Count 126 L Seg Neutrophils % Seg Neuts % (Manual) Nucleated RBC % Seg Neutrophils # Seg Neutrophils # Man PT INR POC ABG pH POC ABG pCO2 POC ABG pO2 Sodium Potassium Chloride Carbon Dioxide BUN 36 H Creatinine Glucose 133 H POC Glucose 148 H Lactic Acid Calcium 6.9 L Magnesium Total Bilirubin AST 253 H ALT 184 H Alkaline Phosphatase 729 H Ammonia Troponin T C-Reactive Protein Total Protein 5.1 L Albumin 1.7 L Prealbumin TSH Crossmatch 09/09/16 09/10/16 09/10/16 23:22 05:10 11:43 WBC RBC Hgb Hct MCV MCH MCHC RDW Plt Count Seg Neutrophils % Seg Neuts % (Manual) Nucleated RBC % Seg Neutrophils # Seg Neutrophils # Man PT INR POC ABG pH POC ABG pCO2 POC ABG pO2 Sodium Potassium Chloride Carbon Dioxide BUN 35 H Creatinine Glucose 240 H POC Glucose 170 H 268 H Lactic Acid Calcium 6.8 L Magnesium Total Bilirubin AST 226 H ALT 171 H Alkaline Phosphatase 710 H Ammonia Troponin T C-Reactive Protein Total Protein 5.2 L Albumin 1.7 L Prealbumin TSH Crossmatch 09/10/16 09/11/16 09/11/16 17:51 01:07 05:00 WBC RBC Hgb Hct MCV MCH MCHC RDW Plt Count Seg Neutrophils % Seg Neuts % (Manual) Nucleated RBC % Seg Neutrophils # Seg Neutrophils # Man PT INR POC ABG pH POC ABG pCO2 POC ABG pO2 Sodium Potassium 2.9 L* Chloride Carbon Dioxide BUN 35 H Creatinine Glucose 274 H POC Glucose 334 H 223 H Lactic Acid Calcium 6.9 L Magnesium Total Bilirubin AST 167 H ALT 145 H Alkaline Phosphatase 631 H Ammonia Troponin T C-Reactive Protein Total Protein 5.1 L Albumin 1.6 L Prealbumin TSH Crossmatch 09/11/16 09/11/16 09/11/16 05:01 12:16 17:12 WBC RBC Hgb Hct MCV MCH MCHC RDW Plt Count Seg Neutrophils % Seg Neuts % (Manual) Nucleated RBC % Seg Neutrophils # Seg Neutrophils # Man PT INR POC ABG pH POC ABG pCO2 POC ABG pO2 Sodium Potassium Chloride Carbon Dioxide BUN Creatinine Glucose POC Glucose 305 H 219 H 171 H Lactic Acid Calcium Magnesium Total Bilirubin AST ALT Alkaline Phosphatase Ammonia Troponin T C-Reactive Protein Total Protein Albumin Prealbumin TSH Crossmatch 09/11/16 09/12/16 09/12/16 23:35 03:33 05:00 WBC 12.9 H RBC 2.81 L Hgb 8.2 L Hct 25.4 L MCV MCH MCHC RDW 17.9 H Plt Count Seg Neutrophils % Seg Neuts % (Manual) Nucleated RBC % Seg Neutrophils # Seg Neutrophils # Man PT INR POC ABG pH POC ABG pCO2 POC ABG pO2 Sodium Potassium Chloride Carbon Dioxide BUN Creatinine Glucose POC Glucose 216 H 183 H Lactic Acid Calcium Magnesium Total Bilirubin AST ALT Alkaline Phosphatase Ammonia Troponin T C-Reactive Protein Total Protein Albumin Prealbumin TSH Crossmatch 09/12/16 09/12/16 09/12/16 05:00 15:15 18:30 WBC RBC Hgb Hct MCV MCH MCHC RDW Plt Count Seg Neutrophils % Seg Neuts % (Manual) Nucleated RBC % Seg Neutrophils # Seg Neutrophils # Man PT INR POC ABG pH POC ABG pCO2 POC ABG pO2 Sodium Potassium 3.0 L 3.4 L Chloride Carbon Dioxide BUN 33 H Creatinine 0.5 L Glucose POC Glucose 215 H Lactic Acid Calcium 7.0 L Magnesium Total Bilirubin AST ALT Alkaline Phosphatase Ammonia Troponin T C-Reactive Protein Total Protein Albumin Prealbumin TSH Crossmatch 09/12/16 09/13/16 09/13/16 23:17 05:50 05:50 WBC RBC 2.93 L Hgb 8.8 L Hct 26.7 L MCV MCH MCHC RDW 18.0 H Plt Count Seg Neutrophils % Seg Neuts % (Manual) Nucleated RBC % Seg Neutrophils # Seg Neutrophils # Man PT INR POC ABG pH POC ABG pCO2 POC ABG pO2 Sodium Potassium 2.6 L* D Chloride Carbon Dioxide BUN 29 H Creatinine 0.5 L Glucose 106 H POC Glucose 155 H Lactic Acid Calcium 7.3 L Magnesium Total Bilirubin AST ALT Alkaline Phosphatase Ammonia Troponin T C-Reactive Protein Total Protein Albumin Prealbumin TSH Crossmatch 09/13/16 09/13/16 09/13/16 05:53 11:43 15:07 WBC RBC Hgb Hct MCV MCH MCHC RDW Plt Count Seg Neutrophils % Seg Neuts % (Manual) Nucleated RBC % Seg Neutrophils # Seg Neutrophils # Man PT INR POC ABG pH POC ABG pCO2 POC ABG pO2 Sodium Potassium 2.8 L* Chloride Carbon Dioxide BUN Creatinine Glucose POC Glucose 119 H 129 H Lactic Acid Calcium Magnesium Total Bilirubin AST ALT Alkaline Phosphatase Ammonia Troponin T C-Reactive Protein Total Protein Albumin Prealbumin TSH Crossmatch 09/13/16 09/13/16 09/14/16 17:39 23:30 05:34 WBC RBC Hgb Hct MCV MCH MCHC RDW Plt Count Seg Neutrophils % Seg Neuts % (Manual) Nucleated RBC % Seg Neutrophils # Seg Neutrophils # Man PT INR POC ABG pH POC ABG pCO2 POC ABG pO2 Sodium Potassium Chloride Carbon Dioxide BUN Creatinine Glucose POC Glucose 144 H 196 H 175 H Lactic Acid Calcium Magnesium Total Bilirubin AST ALT Alkaline Phosphatase Ammonia Troponin T C-Reactive Protein Total Protein Albumin Prealbumin TSH Crossmatch 09/14/16 09/14/16 09/14/16 06:24 06:24 12:41 WBC RBC 2.82 L Hgb 8.4 L Hct 25.7 L MCV MCH MCHC RDW 18.0 H Plt Count Seg Neutrophils % Seg Neuts % (Manual) Nucleated RBC % Seg Neutrophils # Seg Neutrophils # Man PT INR POC ABG pH POC ABG pCO2 POC ABG pO2 Sodium Potassium 2.9 L* Chloride 107.3 H Carbon Dioxide BUN 26 H Creatinine 0.4 L Glucose 169 H POC Glucose 184 H Lactic Acid Calcium 7.5 L Magnesium Total Bilirubin AST ALT Alkaline Phosphatase Ammonia Troponin T C-Reactive Protein Total Protein Albumin Prealbumin TSH Crossmatch 09/14/16 09/14/16 09/14/16 14:50 17:57 23:34 WBC RBC Hgb Hct MCV MCH MCHC RDW Plt Count Seg Neutrophils % Seg Neuts % (Manual) Nucleated RBC % Seg Neutrophils # Seg Neutrophils # Man PT INR POC ABG pH POC ABG pCO2 POC ABG pO2 Sodium Potassium 3.3 L Chloride Carbon Dioxide BUN Creatinine Glucose POC Glucose 191 H 178 H Lactic Acid Calcium Magnesium Total Bilirubin AST ALT Alkaline Phosphatase Ammonia Troponin T C-Reactive Protein Total Protein Albumin Prealbumin TSH Crossmatch 09/15/16 09/15/16 09/15/16 05:02 07:57 07:57 WBC RBC 3.04 L Hgb 9.2 L Hct 28.2 L MCV MCH MCHC RDW 18.8 H Plt Count Seg Neutrophils % Seg Neuts % (Manual) Nucleated RBC % Seg Neutrophils # Seg Neutrophils # Man PT INR POC ABG pH POC ABG pCO2 POC ABG pO2 Sodium Potassium Chloride 107.2 H Carbon Dioxide BUN 26 H Creatinine 0.4 L Glucose 160 H POC Glucose 192 H Lactic Acid Calcium 7.7 L Magnesium Total Bilirubin AST ALT Alkaline Phosphatase Ammonia Troponin T C-Reactive Protein Total Protein Albumin Prealbumin TSH Crossmatch 09/15/16 09/15/16 09/15/16 11:23 17:51 23:45 WBC RBC Hgb Hct MCV MCH MCHC RDW Plt Count Seg Neutrophils % Seg Neuts % (Manual) Nucleated RBC % Seg Neutrophils # Seg Neutrophils # Man PT INR POC ABG pH POC ABG pCO2 POC ABG pO2 Sodium Potassium Chloride Carbon Dioxide BUN Creatinine Glucose POC Glucose 232 H 240 H 251 H Lactic Acid Calcium Magnesium Total Bilirubin AST ALT Alkaline Phosphatase Ammonia Troponin T C-Reactive Protein Total Protein Albumin Prealbumin TSH Crossmatch 09/16/16 09/16/16 09/16/16 04:55 04:55 05:38 WBC RBC 2.84 L Hgb 8.6 L Hct 26.2 L MCV MCH MCHC RDW 18.8 H Plt Count Seg Neutrophils % Seg Neuts % (Manual) Nucleated RBC % Seg Neutrophils # Seg Neutrophils # Man PT INR POC ABG pH POC ABG pCO2 POC ABG pO2 Sodium Potassium 3.1 L Chloride 107.6 H Carbon Dioxide BUN 25 H Creatinine 0.3 L Glucose 134 H POC Glucose 157 H Lactic Acid Calcium 7.6 L Magnesium Total Bilirubin AST ALT Alkaline Phosphatase Ammonia Troponin T C-Reactive Protein Total Protein Albumin Prealbumin TSH Crossmatch 09/16/16 09/16/16 09/16/16 11:53 17:56 23:54 WBC RBC Hgb Hct MCV MCH MCHC RDW Plt Count Seg Neutrophils % Seg Neuts % (Manual) Nucleated RBC % Seg Neutrophils # Seg Neutrophils # Man PT INR POC ABG pH POC ABG pCO2 POC ABG pO2 Sodium Potassium Chloride Carbon Dioxide BUN Creatinine Glucose POC Glucose 137 H 138 H 179 H Lactic Acid Calcium Magnesium Total Bilirubin AST ALT Alkaline Phosphatase Ammonia Troponin T C-Reactive Protein Total Protein Albumin Prealbumin TSH Crossmatch 09/17/16 09/17/16 09/17/16 05:00 05:00 05:28 WBC RBC 2.77 L Hgb 8.2 L Hct 25.9 L MCV MCH MCHC RDW 19.1 H Plt Count Seg Neutrophils % Seg Neuts % (Manual) Nucleated RBC % Seg Neutrophils # Seg Neutrophils # Man PT INR POC ABG pH POC ABG pCO2 POC ABG pO2 Sodium Potassium 3.5 L Chloride 108.4 H Carbon Dioxide BUN 29 H Creatinine 0.3 L Glucose 117 H POC Glucose 142 H Lactic Acid Calcium 7.4 L Magnesium Total Bilirubin AST ALT Alkaline Phosphatase Ammonia Troponin T C-Reactive Protein Total Protein Albumin Prealbumin TSH Crossmatch 09/17/16 09/17/16 09/18/16 18:07 23:31 06:29 WBC RBC Hgb Hct MCV MCH MCHC RDW Plt Count Seg Neutrophils % Seg Neuts % (Manual) Nucleated RBC % Seg Neutrophils # Seg Neutrophils # Man PT INR POC ABG pH POC ABG pCO2 POC ABG pO2 Sodium Potassium Chloride Carbon Dioxide BUN Creatinine Glucose POC Glucose 173 H 240 H 282 H Lactic Acid Calcium Magnesium Total Bilirubin AST ALT Alkaline Phosphatase Ammonia Troponin T C-Reactive Protein Total Protein Albumin Prealbumin TSH Crossmatch 09/18/16 09/18/16 09/18/16 06:30 12:21 17:55 WBC RBC Hgb Hct MCV MCH MCHC RDW Plt Count Seg Neutrophils % Seg Neuts % (Manual) Nucleated RBC % Seg Neutrophils # Seg Neutrophils # Man PT INR POC ABG pH POC ABG pCO2 POC ABG pO2 Sodium 148 H Potassium Chloride 110.7 H Carbon Dioxide BUN 30 H Creatinine 0.4 L Glucose 249 H POC Glucose 248 H 255 H Lactic Acid Calcium 7.4 L Magnesium 1.60 L Total Bilirubin AST ALT Alkaline Phosphatase Ammonia Troponin T C-Reactive Protein Total Protein Albumin Prealbumin TSH Crossmatch 09/19/16 09/19/16 09/19/16 00:09 04:45 05:11 WBC RBC Hgb Hct MCV MCH MCHC RDW Plt Count Seg Neutrophils % Seg Neuts % (Manual) Nucleated RBC % Seg Neutrophils # Seg Neutrophils # Man PT INR POC ABG pH POC ABG pCO2 POC ABG pO2 Sodium 146 H Potassium Chloride 110.8 H Carbon Dioxide BUN 34 H Creatinine 0.4 L Glucose 278 H POC Glucose 324 H 278 H Lactic Acid Calcium 7.3 L Magnesium Total Bilirubin AST ALT Alkaline Phosphatase Ammonia Troponin T C-Reactive Protein Total Protein Albumin Prealbumin TSH Crossmatch 09/19/16 09/19/16 09/19/16 11:12 12:09 17:10 WBC RBC Hgb Hct MCV MCH MCHC RDW Plt Count Seg Neutrophils % Seg Neuts % (Manual) Nucleated RBC % Seg Neutrophils # Seg Neutrophils # Man PT INR POC ABG pH POC ABG pCO2 POC ABG pO2 Sodium Potassium Chloride Carbon Dioxide BUN Creatinine Glucose POC Glucose 306 H 225 H 329 H Lactic Acid Calcium Magnesium Total Bilirubin AST ALT Alkaline Phosphatase Ammonia Troponin T C-Reactive Protein Total Protein Albumin Prealbumin TSH Crossmatch 09/19/16 09/20/16 09/20/16 23:34 04:52 05:00 WBC RBC Hgb Hct MCV MCH MCHC RDW Plt Count Seg Neutrophils % Seg Neuts % (Manual) Nucleated RBC % Seg Neutrophils # Seg Neutrophils # Man PT INR POC ABG pH POC ABG pCO2 POC ABG pO2 Sodium Potassium Chloride 108.6 H Carbon Dioxide BUN 35 H Creatinine 0.4 L Glucose 370 H POC Glucose 376 H 374 H Lactic Acid Calcium 7.3 L Magnesium Total Bilirubin AST ALT Alkaline Phosphatase Ammonia Troponin T C-Reactive Protein Total Protein Albumin Prealbumin TSH Crossmatch 09/20/16 09/20/16 09/20/16 11:18 17:39 23:49 WBC RBC Hgb Hct MCV MCH MCHC RDW Plt Count Seg Neutrophils % Seg Neuts % (Manual) Nucleated RBC % Seg Neutrophils # Seg Neutrophils # Man PT INR POC ABG pH POC ABG pCO2 POC ABG pO2 Sodium Potassium Chloride Carbon Dioxide BUN Creatinine Glucose POC Glucose 342 H 416 H 440 H Lactic Acid Calcium Magnesium Total Bilirubin AST ALT Alkaline Phosphatase Ammonia Troponin T C-Reactive Protein Total Protein Albumin Prealbumin TSH Crossmatch 09/21/16 09/21/16 09/21/16 04:58 05:15 05:15 WBC RBC 1.48 L Hgb 4.6 L* Hct 14.9 L* MCV 100 H MCH MCHC RDW 25.4 H Plt Count Seg Neutrophils % Seg Neuts % (Manual) Nucleated RBC % Seg Neutrophils # Seg Neutrophils # Man PT INR POC ABG pH POC ABG pCO2 POC ABG pO2 Sodium Potassium Chloride 107.5 H Carbon Dioxide 20 L BUN 45 H Creatinine 0.6 L Glucose 490 H POC Glucose > 500 H Lactic Acid Calcium 7.0 L Magnesium Total Bilirubin AST ALT Alkaline Phosphatase Ammonia Troponin T C-Reactive Protein Total Protein Albumin Prealbumin TSH Crossmatch 09/21/16 09/21/16 09/21/16 08:20 09:17 12:09 WBC RBC Hgb Hct MCV MCH MCHC RDW Plt Count Seg Neutrophils % Seg Neuts % (Manual) Nucleated RBC % Seg Neutrophils # Seg Neutrophils # Man PT INR POC ABG pH 7.464 H POC ABG pCO2 29.3 L POC ABG pO2 198 H Sodium Potassium Chloride Carbon Dioxide BUN Creatinine Glucose POC Glucose 248 H Lactic Acid Calcium Magnesium Total Bilirubin AST ALT Alkaline Phosphatase Ammonia Troponin T C-Reactive Protein Total Protein Albumin Prealbumin TSH Crossmatch See Detail 09/21/16 09/21/16 09/21/16 15:21 17:36 18:49 WBC RBC Hgb Hct MCV MCH MCHC RDW Plt Count Seg Neutrophils % Seg Neuts % (Manual) Nucleated RBC % Seg Neutrophils # Seg Neutrophils # Man PT INR POC ABG pH POC ABG pCO2 POC ABG pO2 Sodium Potassium Chloride Carbon Dioxide BUN Creatinine Glucose POC Glucose 403 H 437 H 482 H Lactic Acid Calcium Magnesium Total Bilirubin AST ALT Alkaline Phosphatase Ammonia Troponin T C-Reactive Protein Total Protein Albumin Prealbumin TSH Crossmatch 09/21/16 09/22/16 09/22/16 23:29 00:00 01:29 WBC 14.8 H RBC 2.94 L Hgb 9.1 L D Hct 27.5 L D MCV MCH MCHC RDW 16.7 H Plt Count Seg Neutrophils % Seg Neuts % (Manual) Nucleated RBC % Seg Neutrophils # Seg Neutrophils # Man PT INR POC ABG pH POC ABG pCO2 POC ABG pO2 Sodium Potassium Chloride Carbon Dioxide BUN Creatinine Glucose POC Glucose 311 H 288 H Lactic Acid Calcium Magnesium Total Bilirubin AST ALT Alkaline Phosphatase Ammonia Troponin T C-Reactive Protein Total Protein Albumin Prealbumin TSH Crossmatch 09/22/16 09/22/16 09/22/16 02:29 03:12 03:26 WBC RBC Hgb Hct MCV MCH MCHC RDW Plt Count Seg Neutrophils % Seg Neuts % (Manual) Nucleated RBC % Seg Neutrophils # Seg Neutrophils # Man PT INR POC ABG pH 7.460 H POC ABG pCO2 29.9 L POC ABG pO2 112 H Sodium Potassium Chloride Carbon Dioxide BUN Creatinine Glucose POC Glucose 261 H 239 H Lactic Acid Calcium Magnesium Total Bilirubin AST ALT Alkaline Phosphatase Ammonia Troponin T C-Reactive Protein Total Protein Albumin Prealbumin TSH Crossmatch 09/22/16 09/22/16 09/22/16 05:35 06:40 06:40 WBC 13.5 H RBC 3.18 L Hgb 9.5 L Hct 28.8 L MCV MCH MCHC RDW 16.2 H Plt Count Seg Neutrophils % Seg Neuts % (Manual) Nucleated RBC % Seg Neutrophils # Seg Neutrophils # Man PT INR POC ABG pH POC ABG pCO2 POC ABG pO2 Sodium 147 H Potassium 3.2 L D Chloride 112.3 H Carbon Dioxide BUN 49 H Creatinine 0.6 L Glucose 102 H POC Glucose 181 H Lactic Acid Calcium 7.5 L Magnesium Total Bilirubin AST ALT Alkaline Phosphatase Ammonia Troponin T C-Reactive Protein Total Protein Albumin Prealbumin TSH Crossmatch 09/22/16 09/22/16 09/22/16 07:16 18:03 20:05 WBC RBC Hgb Hct MCV MCH MCHC RDW Plt Count Seg Neutrophils % Seg Neuts % (Manual) Nucleated RBC % Seg Neutrophils # Seg Neutrophils # Man PT INR POC ABG pH POC ABG pCO2 POC ABG pO2 Sodium Potassium Chloride Carbon Dioxide BUN Creatinine Glucose POC Glucose 152 H 115 H 107 H Lactic Acid Calcium Magnesium Total Bilirubin AST ALT Alkaline Phosphatase Ammonia Troponin T C-Reactive Protein Total Protein Albumin Prealbumin TSH Crossmatch 09/22/16 09/22/16 09/23/16 21:00 23:55 02:02 WBC 13.8 H RBC 3.04 L Hgb 9.2 L Hct 28.0 L MCV MCH MCHC RDW 16.2 H Plt Count Seg Neutrophils % Seg Neuts % (Manual) Nucleated RBC % Seg Neutrophils # Seg Neutrophils # Man PT INR POC ABG pH POC ABG pCO2 POC ABG pO2 Sodium Potassium Chloride Carbon Dioxide BUN Creatinine Glucose POC Glucose 133 H 110 H Lactic Acid Calcium Magnesium Total Bilirubin AST ALT Alkaline Phosphatase Ammonia Troponin T C-Reactive Protein Total Protein Albumin Prealbumin TSH Crossmatch 09/23/16 09/23/16 09/23/16 04:45 04:45 05:36 WBC 13.6 H RBC 2.86 L Hgb 8.6 L Hct 26.4 L MCV MCH MCHC RDW 17.1 H Plt Count Seg Neutrophils % Seg Neuts % (Manual) Nucleated RBC % Seg Neutrophils # Seg Neutrophils # Man PT INR POC ABG pH POC ABG pCO2 POC ABG pO2 Sodium Potassium Chloride 109.2 H Carbon Dioxide 21 L BUN 43 H Creatinine 0.5 L Glucose 152 H POC Glucose 133 H Lactic Acid Calcium 7.7 L Magnesium Total Bilirubin AST ALT Alkaline Phosphatase Ammonia Troponin T C-Reactive Protein Total Protein Albumin Prealbumin TSH Crossmatch 09/23/16 09/23/16 09/23/16 07:42 11:55 13:26 WBC RBC Hgb Hct MCV MCH MCHC RDW Plt Count Seg Neutrophils % Seg Neuts % (Manual) Nucleated RBC % Seg Neutrophils # Seg Neutrophils # Man PT INR POC ABG pH POC ABG pCO2 POC ABG pO2 Sodium Potassium Chloride Carbon Dioxide BUN Creatinine Glucose POC Glucose 175 H 170 H 195 H Lactic Acid Calcium Magnesium Total Bilirubin AST ALT Alkaline Phosphatase Ammonia Troponin T C-Reactive Protein Total Protein Albumin Prealbumin TSH Crossmatch 09/23/16 09/23/16 09/24/16 17:37 21:54 02:56 WBC RBC Hgb Hct MCV MCH MCHC RDW Plt Count Seg Neutrophils % Seg Neuts % (Manual) Nucleated RBC % Seg Neutrophils # Seg Neutrophils # Man PT INR POC ABG pH POC ABG pCO2 POC ABG pO2 Sodium Potassium Chloride Carbon Dioxide BUN Creatinine Glucose POC Glucose 182 H 184 H 187 H Lactic Acid Calcium Magnesium Total Bilirubin AST ALT Alkaline Phosphatase Ammonia Troponin T C-Reactive Protein Total Protein Albumin Prealbumin TSH Crossmatch 09/24/16 09/24/16 09/24/16 05:00 05:00 05:22 WBC RBC 2.82 L Hgb 8.8 L Hct 27.0 L MCV MCH MCHC RDW 17.2 H Plt Count Seg Neutrophils % Seg Neuts % (Manual) Nucleated RBC % Seg Neutrophils # Seg Neutrophils # Man PT INR POC ABG pH POC ABG pCO2 POC ABG pO2 Sodium 148 H Potassium Chloride 115.0 H Carbon Dioxide 21 L BUN 38 H Creatinine 0.6 L Glucose 163 H POC Glucose 194 H Lactic Acid Calcium 7.9 L Magnesium Total Bilirubin AST ALT Alkaline Phosphatase Ammonia Troponin T C-Reactive Protein Total Protein Albumin Prealbumin TSH Crossmatch 09/24/16 09/24/16 09/24/16 11:02 13:55 17:37 WBC RBC Hgb Hct MCV MCH MCHC RDW Plt Count Seg Neutrophils % Seg Neuts % (Manual) Nucleated RBC % Seg Neutrophils # Seg Neutrophils # Man PT INR POC ABG pH POC ABG pCO2 POC ABG pO2 Sodium Potassium Chloride Carbon Dioxide BUN Creatinine Glucose POC Glucose 210 H 182 H 169 H Lactic Acid Calcium Magnesium Total Bilirubin AST ALT Alkaline Phosphatase Ammonia Troponin T C-Reactive Protein Total Protein Albumin Prealbumin TSH Crossmatch 09/25/16 09/25/16 09/25/16 02:15 05:14 09:39 WBC RBC Hgb Hct MCV MCH MCHC RDW Plt Count Seg Neutrophils % Seg Neuts % (Manual) Nucleated RBC % Seg Neutrophils # Seg Neutrophils # Man PT INR POC ABG pH POC ABG pCO2 POC ABG pO2 Sodium Potassium Chloride Carbon Dioxide BUN Creatinine Glucose POC Glucose 139 H 151 H 184 H Lactic Acid Calcium Magnesium Total Bilirubin AST ALT Alkaline Phosphatase Ammonia Troponin T C-Reactive Protein Total Protein Albumin Prealbumin TSH Crossmatch 09/25/16 09/25/16 09/25/16 09:48 09:48 13:47 WBC RBC 2.76 L Hgb 8.7 L Hct 26.2 L MCV MCH MCHC RDW 17.3 H Plt Count Seg Neutrophils % Seg Neuts % (Manual) Nucleated RBC % Seg Neutrophils # Seg Neutrophils # Man PT INR POC ABG pH POC ABG pCO2 POC ABG pO2 Sodium 150 H Potassium Chloride 115.6 H Carbon Dioxide BUN 34 H Creatinine 0.4 L Glucose 168 H POC Glucose 167 H Lactic Acid Calcium 7.9 L Magnesium Total Bilirubin AST ALT Alkaline Phosphatase Ammonia Troponin T C-Reactive Protein Total Protein Albumin Prealbumin TSH Crossmatch 09/25/16 09/25/16 09/26/16 17:57 21:44 00:05 WBC RBC Hgb Hct MCV MCH MCHC RDW Plt Count Seg Neutrophils % Seg Neuts % (Manual) Nucleated RBC % Seg Neutrophils # Seg Neutrophils # Man PT INR POC ABG pH POC ABG pCO2 POC ABG pO2 Sodium Potassium Chloride Carbon Dioxide BUN Creatinine Glucose POC Glucose 206 H 188 H 188 H Lactic Acid Calcium Magnesium Total Bilirubin AST ALT Alkaline Phosphatase Ammonia Troponin T C-Reactive Protein Total Protein Albumin Prealbumin TSH Crossmatch 09/26/16 09/26/16 09/26/16 01:29 03:46 03:46 WBC RBC 2.76 L Hgb 8.6 L Hct 26.2 L MCV MCH MCHC RDW 18.2 H Plt Count Seg Neutrophils % Seg Neuts % (Manual) Nucleated RBC % Seg Neutrophils # Seg Neutrophils # Man PT INR POC ABG pH POC ABG pCO2 POC ABG pO2 Sodium 147 H Potassium Chloride 114.1 H Carbon Dioxide BUN 28 H Creatinine 0.4 L Glucose 172 H POC Glucose 198 H Lactic Acid Calcium 7.6 L Magnesium Total Bilirubin AST ALT Alkaline Phosphatase Ammonia Troponin T C-Reactive Protein Total Protein Albumin Prealbumin TSH Crossmatch 09/26/16 09/26/16 08:08 12:39 WBC RBC Hgb Hct MCV MCH MCHC RDW Plt Count Seg Neutrophils % Seg Neuts % (Manual) Nucleated RBC % Seg Neutrophils # Seg Neutrophils # Man PT INR POC ABG pH POC ABG pCO2 POC ABG pO2 Sodium Potassium Chloride Carbon Dioxide BUN Creatinine Glucose POC Glucose 161 H 176 H Lactic Acid Calcium Magnesium Total Bilirubin AST ALT Alkaline Phosphatase Ammonia Troponin T C-Reactive Protein Total Protein Albumin Prealbumin TSH Crossmatch Allied health notes reviewed: RT
--- NOTE | 2016-09-26 16:32 | Progress Note ---
Subjective Date of service: 09/26/16 Principal diagnosis: Acute Hypoxemic Hypercapnic Resp Failure; Severe Sepsis Interval history: Patient is a 61-year-old morbid obese woman with a history of congestive heart failure, severe protein calorie malnutrition (bilateral hindu muscle severe wasting, hypothenar muscle wasting) with BMI of 81.6, functional quadriplegia, type 2 diabetes mellitus, hypertension, multiple skin breakdown between legs and thighs who presented to the hospital via EMS with AMS. 2D echocardiogram with ejection fraction of 50-55%. During the past admission, patient was recommended for placement but refused. On presentation to ED, patient was felt to be unable to maintain her airways and intubated the ER since 08/29/16. 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, poa: supportative care, Unable to get CT head due to weight issues -Acute on chronic diastolic congestive heart failure: treated with diuresis -Acute on chronic respiratory failure, intubated for PEG and trach. placement when stable -Severe anemia s/p blood transfusion: monitor H/H -Paroxysmal atrial fibrillation: -Non-ST elevated PR type 2: Conservative management -Acute on chronic kidney disease III: stable -Severe protein calorie malnutrition albumin 1.2. Continue nasogastric tube feedings -Morbid obesity BMI 81.6 -Mulitple PRESSURE ULCERS-POA: consulted wound care -uncontrolled dm: on ssi, s/p insulin drip -Acute anemia with drop in HCT s/p 5 units of PRBC -Dvt prophylaxis: sq lovenox per [facility] Disposition: LTAC declined, case management is working on plan DNR Subjective: Patient is intubated and sedated unresponsive Objective: GEN: Critically ill, morbid obese BMI 81.6, intubated, HEENT: Pupils are pinpoint and reactive, ET tube in place NECK: SUPPLE, NO THYROMEGALY, NO JVD, CVS: regular NORMAL S1 S2 LUNGS/CHEST: CTA, NORMAL CHEST EXPANSION B, GOOD AIR ENTRY B ABD: SOFT, NONDISTENDED NEURO: doesn't follow commands, unresponsive PSY: awake with eyes open Extremities: 3+ all extremity edema Objective - Constitutional Vitals: Vital Signs - 12hr 09/26/16 09/26/16 09/26/16 05:00 05:28 06:00 Temperature Pulse Rate 83 73 70 Pulse Rate [ Anterior Bilateral Throughout] Pulse Rate [ From Monitor] Respiratory 23 15 Rate Respiratory Rate [Anterior Bilateral Throughout] Blood Pressure 136/96 148/92 148/92 O2 Sat by Pulse 100 100 Oximetry 09/26/16 09/26/16 09/26/16 07:00 08:00 08:15 Temperature 97.5 F L Pulse Rate 74 71 63 Pulse Rate [ Anterior Bilateral Throughout] Pulse Rate [ 74 From Monitor] Respiratory 24 24 Rate Respiratory Rate [Anterior Bilateral Throughout] Blood Pressure 131/89 133/67 133/67 O2 Sat by Pulse 100 100 100 Oximetry 09/26/16 09/26/16 09/26/16 08:19 08:30 09:00 Temperature Pulse Rate 72 Pulse Rate [ 63 66 Anterior Bilateral Throughout] Pulse Rate [ From Monitor] Respiratory 28 H Rate Respiratory 20 20 Rate [Anterior Bilateral Throughout] Blood Pressure 113/63 O2 Sat by Pulse 100 Oximetry 09/26/16 09/26/16 09/26/16 10:00 11:00 11:30 Temperature Pulse Rate 67 69 75 Pulse Rate [ Anterior Bilateral Throughout] Pulse Rate [ From Monitor] Respiratory 27 H 27 H 29 H Rate Respiratory Rate [Anterior Bilateral Throughout] Blood Pressure 106/61 106/61 112/63 O2 Sat by Pulse 100 100 100 Oximetry 09/26/16 09/26/16 09/26/16 11:56 12:00 13:00 Temperature 97.3 F L Pulse Rate 63 61 74 Pulse Rate [ Anterior Bilateral Throughout] Pulse Rate [ 69 From Monitor] Respiratory 32 H 26 H Rate Respiratory Rate [Anterior Bilateral Throughout] Blood Pressure 92/72 95/72 112/86 O2 Sat by Pulse 91 100 Oximetry 09/26/16 14:25 Temperature Pulse Rate Pulse Rate [ 72 Anterior Bilateral Throughout] Pulse Rate [ From Monitor] Respiratory Rate Respiratory 23 Rate [Anterior Bilateral Throughout] Blood Pressure O2 Sat by Pulse Oximetry - Labs CBC & Chem 7: 09/26/16 03:46 09/26/16 03:46 Labs: Abnormal lab results 09/25/16 09/25/16 09/25/16 Range/Units 09:39 13:47 17:57 RBC (3.65-5.03) M/mm3 Hgb (10.1-14.3) gm/dl Hct (30.3-42.9) % RDW (13.2-15.2) % Sodium (137-145) mmol/L Chloride (98-107) mmol/L BUN (7-17) mg/dL Creatinine (0.7-1.2) mg/dL Glucose (65-100) mg/dL POC Glucose 184 H 167 H 206 H (70-105) Calcium (8.4-10.2) mg/dL 09/25/16 09/26/16 09/26/16 Range/Units 21:44 00:05 01:29 RBC (3.65-5.03) M/mm3 Hgb (10.1-14.3) gm/dl Hct (30.3-42.9) % RDW (13.2-15.2) % Sodium (137-145) mmol/L Chloride (98-107) mmol/L BUN (7-17) mg/dL Creatinine (0.7-1.2) mg/dL Glucose (65-100) mg/dL POC Glucose 188 H 188 H 198 H (70-105) Calcium (8.4-10.2) mg/dL 09/26/16 09/26/16 09/26/16 Range/Units 03:46 03:46 08:08 RBC 2.76 L (3.65-5.03) M/mm3 Hgb 8.6 L (10.1-14.3) gm/dl Hct 26.2 L (30.3-42.9) % RDW 18.2 H (13.2-15.2) % Sodium 147 H (137-145) mmol/L Chloride 114.1 H (98-107) mmol/L BUN 28 H (7-17) mg/dL Creatinine 0.4 L (0.7-1.2) mg/dL Glucose 172 H (65-100) mg/dL POC Glucose 161 H (70-105) Calcium 7.6 L (8.4-10.2) mg/dL 09/26/16 Range/Units 12:39 RBC (3.65-5.03) M/mm3 Hgb (10.1-14.3) gm/dl Hct (30.3-42.9) % RDW (13.2-15.2) % Sodium (137-145) mmol/L Chloride (98-107) mmol/L BUN (7-17) mg/dL Creatinine (0.7-1.2) mg/dL Glucose (65-100) mg/dL POC Glucose 176 H (70-105) Calcium (8.4-10.2) mg/dL
[2016-09-27] MEDS: NOVOLOG SUB-Q SCH ×6 (01:26→22:01)
[2016-09-27] MEDS: DUONEB 0.5 MG-3 MG/3 ML SOLN IH SCH ×4 (02:21→19:31)
[2016-09-27] MEDS: LOPRESSOR PO SCH ×4 (05:29→23:19)
[2016-09-27] MEDS: PROAMATINE PO SCH ×3 (06:30→23:18)
[2016-09-27] MEDS: LEVEMIR SUB-Q SCH (10:27)
[2016-09-27] MEDS: POTASSIUM CHLORIDE FEEDTUBE SCH (10:28)
[2016-09-27] MEDS: PROTONIX PO SCH (10:28)
[2016-09-27] MEDS: KEPPRA PO SCH ×2 (10:28→22:00)
[2016-09-27] MEDS: SYNTHROID PO SCH (10:29)
[2016-09-27] MEDS: FERROUS SULFATE PO SCH (10:29)
[2016-09-27] MEDS: FOLVITE PO SCH (10:29)
--- NOTE | 2016-09-27 14:23 | Progress Note ---
Assessment and Plan (1) Respiratory failure Current Visit: Yes Status: Acute Qualifiers: Chronicity: C Respiratory failure complication: R Plan to address problem: - continue to Wean FIO2 for O2 sats>92% - continue VTE prophylaxis (SCD's re: thrombocytopenia) - continue Stress ulcer prophylaxis (Pantoprazole) - continuing sedation vacations while watching for any obvious seizure activity - continue Lung protective strategies - seen by surgery and consent to be obtained today for trach +/- PEG once clinically and technically feasible - following clinically otherwise - resumed daytime PSV trials - resumed gentle diuresis (2) Shock Current Visit: Yes Status: Acute Plan to address problem: - Initially treated as septic shock secondary to HCAP earlier - continue strict glycemic control - completed AB's course; trending WBC - ID following - tapered off stress steroids now - continue midodrine for now but tapering - likely hypovolemic shock at this point with GI bleeding - s/p 4 units PRBC's - received a liter of IVNS - weaned off levophed now (3) Acute on chronic diastolic (congestive) heart failure Current Visit: No Status: Acute Plan to address problem: - Documented EF 55% - Continue to monitoring renal function and electrolyte profile closely - continue to monitor urine output, electrolyte profile (4) Altered mental status Current Visit: Yes Status: Acute Qualifiers: Altered mental status type: unspecified Coma depth: C Coma timing: C Qualified Code(s): R41.82 - Altered mental status, unspecified Plan to address problem: - Neurology following - on keppra - weaned off ativan and will use prn now - TSH elevated and started on low dose levoxyl (5) Morbid obesity Current Visit: Yes Status: Acute Qualifiers: Obesity type: unspecified obesity type Qualified Code(s): E66.01 - Morbid ( severe) obesity due to excess calories - weight loss strategies once more stable - caloric intake per design transferrer at this point (6) Anemia Current Visit: Yes Status: Acute Qualifiers: Anemia type: unspecified type Iron deficiency anemia type: I Vitamin B12 deficiency anemia type: V Folate deficiency anemia type: F Bone marrow failure anemia type: B Hemolytic anemia type: H Other causes of anemia: O Qualified Code(s): D64.9 - Anemia, unspecified Plan to address problem: - acute GI bleed - to receive 4 units PRBC's in all and will have 2 on hold - GI evaluation ordered - begin protonix drip - H&H holding - protonix drip to stop today - resume tube feeds at 10mls/hr (Lower GI bleed and no rebleed X 48hrs; GI signed off) - advancing slowly to goal rate at this point (7) Status epilepticus Current Visit: Yes Status: Acute Plan to address problem: - Continue AEDs - Neurology following - no obvious clinical seizure activity (8) 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 - This could be secondary to an intra-cranial process, however unable to obtain neuro-imaging, patient's weight exceeds allowable maximum (9) Discharge planning issues Current Visit: Yes Status: Acute Plan to address problem: - Continue current care. - need to determine appropriate power of senior trial attorney / legal healthcare event representative prior to any tentative withdrawal of care - son came by and signed DNR order however no consensus on hospice care / withdrawal - LTAC refused admission ..she remains critically ill on life sustaining interventions including MVS and back on vasopressors at high risk for further deterioration including ....32' CCT Subjective Date of service: 09/27/16 Principal diagnosis: Acute Hypoxemic Hypercapnic Resp Failure; Severe Sepsis Interval history: Seen and examined at bedside; 24 hour events reviewed; nursing and respiratory care staff consulted; no adverse overnight events reported to me; remains on MVS ; no new issues respiratory-burch Objective Vital Signs - 12hr 09/27/16 09/27/16 09/27/16 02:26 02:45 03:00 Temperature Pulse Rate 77 79 Pulse Rate [ 77 Anterior Bilateral Throughout] Pulse Rate [ From Monitor] Respiratory 26 H Rate Respiratory 24 Rate [Anterior Bilateral Throughout] Blood Pressure 142/72 125/38 O2 Sat by Pulse 100 100 Oximetry 09/27/16 09/27/16 09/27/16 04:00 05:00 05:29 Temperature 97.5 F L Pulse Rate 84 81 87 Pulse Rate [ Anterior Bilateral Throughout] Pulse Rate [ From Monitor] Respiratory 25 H 25 H Rate Respiratory Rate [Anterior Bilateral Throughout] Blood Pressure 127/63 132/54 131/80 O2 Sat by Pulse 100 Oximetry 09/27/16 09/27/16 09/27/16 05:58 06:00 07:00 Temperature Pulse Rate 80 87 82 Pulse Rate [ Anterior Bilateral Throughout] Pulse Rate [ From Monitor] Respiratory 27 H 21 Rate Respiratory Rate [Anterior Bilateral Throughout] Blood Pressure 132/54 139/61 139/61 O2 Sat by Pulse 98 99 79 L Oximetry 09/27/16 09/27/16 09/27/16 07:25 07:35 08:00 Temperature 97.5 F L Pulse Rate 84 75 Pulse Rate [ 87 89 Anterior Bilateral Throughout] Pulse Rate [ 72 From Monitor] Respiratory 25 H Rate Respiratory 27 H 31 H Rate [Anterior Bilateral Throughout] Blood Pressure 122/89 94/34 O2 Sat by Pulse 100 100 Oximetry 09/27/16 09/27/16 09/27/16 09:00 10:00 11:00 Temperature Pulse Rate 77 77 77 Pulse Rate [ Anterior Bilateral Throughout] Pulse Rate [ From Monitor] Respiratory 26 H 25 H 26 H Rate Respiratory Rate [Anterior Bilateral Throughout] Blood Pressure 105/57 113/65 113/65 O2 Sat by Pulse 100 100 100 Oximetry 09/27/16 09/27/16 09/27/16 11:18 12:00 13:00 Temperature 98.5 F Pulse Rate 69 82 83 Pulse Rate [ Anterior Bilateral Throughout] Pulse Rate [ From Monitor] Respiratory 24 25 H 25 H Rate Respiratory Rate [Anterior Bilateral Throughout] Blood Pressure 132/65 132/65 106/60 O2 Sat by Pulse 100 100 100 Oximetry 09/27/16 09/27/16 09/27/16 13:17 13:28 14:00 Temperature Pulse Rate 82 Pulse Rate [ 72 77 Anterior Bilateral Throughout] Pulse Rate [ From Monitor] Respiratory 28 H Rate Respiratory 25 H 27 H Rate [Anterior Bilateral Throughout] Blood Pressure 103/60 O2 Sat by Pulse 100 Oximetry Constitutional: no acute distress, other (encephalopathic) Eyes: non-icteric ENT: oropharynx moist, other (ETT 22cm RAFAEL) Neck: supple, no lymphadenopathy Effort: mildly labored Ascultation: Bilateral: diminished breath sounds, rales (bases) Cardiovascular: regular rate and rhythm Gastrointestinal: hypoactive bowel sounds, soft, non-tender, non-distended Integumentary: normal Extremities: no cyanosis, pulses normal, no ischemia or petechiae, edema (1++) Neurologic: unable to assess, other (lethargic) Psychiatric: other (sedated) CBC and BMP: 09/26/16 03:46 09/26/16 03:46 ABG, PT/INR, D-dimer: ABG POC ABG pH 7.460 (7.35-7.45) H 09/22/16 03:26 POC ABG pCO2 29.9 (35-45) L 09/22/16 03:26 POC ABG pO2 112 (80-105) H 09/22/16 03:26 POC ABG HCO3 21.3 09/22/16 03:26 POC ABG Total CO2 22 09/22/16 03:26 POC ABG O2 Sat 99 09/22/16 03:26 PT/INR, D-dimer PT 13.8 Sec. (12.2-14.9) 09/10/16 05:10 INR 1.07 (0.87-1.13) 09/10/16 05:10 Abnormal lab findings: Abnormal Labs 08/29/16 08/30/16 08/30/16 21:59 00:16 05:39 WBC RBC Hgb Hct MCV MCH MCHC RDW Plt Count Seg Neutrophils % Seg Neuts % (Manual) Nucleated RBC % Seg Neutrophils # Seg Neutrophils # Man PT INR POC ABG pH POC ABG pCO2 POC ABG pO2 Sodium Potassium Chloride Carbon Dioxide BUN Creatinine Glucose POC Glucose 106 H 128 H Lactic Acid Calcium Magnesium Total Bilirubin AST ALT Alkaline Phosphatase Ammonia Troponin T C-Reactive Protein Total Protein Albumin Prealbumin 0.120 L TSH Crossmatch 08/30/16 08/30/16 08/30/16 10:30 10:30 11:12 WBC 11.1 H RBC 3.16 L Hgb 8.7 L Hct 29.9 L MCV MCH MCHC 29 L RDW 25.0 H Plt Count Seg Neutrophils % 78.6 H Seg Neuts % (Manual) Nucleated RBC % Seg Neutrophils # 8.7 H Seg Neutrophils # Man PT INR POC ABG pH POC ABG pCO2 POC ABG pO2 Sodium 135 L Potassium Chloride Carbon Dioxide 20 L BUN Creatinine 1.5 H Glucose 148 H POC Glucose 142 H Lactic Acid Calcium 7.2 L Magnesium Total Bilirubin 1.30 H AST 143 H ALT Alkaline Phosphatase 392 H Ammonia Troponin T C-Reactive Protein Total Protein 6.1 L Albumin 1.2 L Prealbumin TSH Crossmatch 08/30/16 08/30/16 08/30/16 17:41 18:03 18:18 WBC RBC Hgb Hct MCV MCH MCHC RDW Plt Count Seg Neutrophils % Seg Neuts % (Manual) Nucleated RBC % Seg Neutrophils # Seg Neutrophils # Man PT INR POC ABG pH 7.316 L POC ABG pCO2 POC ABG pO2 44 L 59 L Sodium Potassium Chloride Carbon Dioxide BUN Creatinine Glucose POC Glucose 150 H Lactic Acid Calcium Magnesium Total Bilirubin AST ALT Alkaline Phosphatase Ammonia Troponin T C-Reactive Protein Total Protein Albumin Prealbumin TSH Crossmatch 08/30/16 08/30/16 08/31/16 22:20 22:20 00:11 WBC RBC Hgb Hct MCV MCH MCHC RDW Plt Count Seg Neutrophils % Seg Neuts % (Manual) Nucleated RBC % Seg Neutrophils # Seg Neutrophils # Man PT INR POC ABG pH POC ABG pCO2 POC ABG pO2 Sodium Potassium Chloride Carbon Dioxide BUN Creatinine Glucose POC Glucose 133 H Lactic Acid 2.30 H* Calcium Magnesium Total Bilirubin AST ALT Alkaline Phosphatase Ammonia Troponin T C-Reactive Protein 10.20 H Total Protein Albumin Prealbumin TSH Crossmatch 08/31/16 08/31/16 08/31/16 04:20 04:20 04:20 WBC 18.3 H RBC 3.19 L Hgb 8.8 L Hct 30.0 L MCV MCH 27 L MCHC 29 L RDW 23.9 H Plt Count Seg Neutrophils % Seg Neuts % (Manual) Nucleated RBC % Seg Neutrophils # Seg Neutrophils # Man PT 16.8 H INR 1.37 H POC ABG pH POC ABG pCO2 POC ABG pO2 Sodium 136 L Potassium Chloride Carbon Dioxide 19 L BUN Creatinine 1.5 H Glucose 125 H POC Glucose Lactic Acid Calcium 7.0 L Magnesium Total Bilirubin 1.50 H AST 131 H ALT Alkaline Phosphatase 431 H Ammonia Troponin T C-Reactive Protein Total Protein 6.2 L Albumin 1.2 L Prealbumin TSH Crossmatch 08/31/16 08/31/16 08/31/16 04:20 05:22 05:24 WBC RBC Hgb Hct MCV MCH MCHC RDW Plt Count Seg Neutrophils % Seg Neuts % (Manual) Nucleated RBC % Seg Neutrophils # Seg Neutrophils # Man PT INR POC ABG pH POC ABG pCO2 POC ABG pO2 142 H Sodium Potassium Chloride Carbon Dioxide BUN Creatinine Glucose POC Glucose 123 H Lactic Acid Calcium Magnesium Total Bilirubin AST ALT Alkaline Phosphatase Ammonia 70.0 H Troponin T C-Reactive Protein Total Protein Albumin Prealbumin TSH Crossmatch 08/31/16 08/31/16 08/31/16 12:10 15:45 17:38 WBC RBC Hgb Hct MCV MCH MCHC RDW Plt Count Seg Neutrophils % Seg Neuts % (Manual) Nucleated RBC % Seg Neutrophils # Seg Neutrophils # Man PT INR POC ABG pH POC ABG pCO2 POC ABG pO2 Sodium 136 L Potassium Chloride Carbon Dioxide 21 L BUN Creatinine 1.5 H Glucose 160 H POC Glucose 147 H 151 H Lactic Acid Calcium 6.9 L Magnesium Total Bilirubin AST ALT Alkaline Phosphatase Ammonia Troponin T 0.109 H* D C-Reactive Protein Total Protein Albumin Prealbumin TSH Crossmatch 09/01/16 09/01/16 09/01/16 00:09 04:00 04:00 WBC 14.8 H RBC 2.89 L Hgb 7.8 L Hct 27.2 L MCV MCH 27 L MCHC 29 L RDW 24.4 H Plt Count Seg Neutrophils % Seg Neuts % (Manual) Nucleated RBC % Seg Neutrophils # Seg Neutrophils # Man PT 18.2 H INR 1.51 H POC ABG pH POC ABG pCO2 POC ABG pO2 Sodium Potassium Chloride Carbon Dioxide BUN Creatinine Glucose POC Glucose 192 H Lactic Acid Calcium Magnesium Total Bilirubin AST ALT Alkaline Phosphatase Ammonia Troponin T C-Reactive Protein Total Protein Albumin Prealbumin TSH Crossmatch 09/01/16 09/01/16 09/01/16 04:00 05:28 11:28 WBC RBC Hgb Hct MCV MCH MCHC RDW Plt Count Seg Neutrophils % Seg Neuts % (Manual) Nucleated RBC % Seg Neutrophils # Seg Neutrophils # Man PT INR POC ABG pH POC ABG pCO2 POC ABG pO2 Sodium Potassium Chloride Carbon Dioxide 20 L BUN Creatinine 1.6 H Glucose 183 H POC Glucose 189 H 207 H Lactic Acid Calcium 6.9 L Magnesium Total Bilirubin 1.30 H AST 138 H ALT Alkaline Phosphatase 520 H Ammonia Troponin T C-Reactive Protein Total Protein 6.1 L Albumin 1.2 L Prealbumin TSH Crossmatch 09/01/16 09/01/16 09/02/16 16:56 23:49 05:00 WBC RBC Hgb Hct MCV MCH MCHC RDW Plt Count Seg Neutrophils % Seg Neuts % (Manual) Nucleated RBC % Seg Neutrophils # Seg Neutrophils # Man PT 18.0 H INR 1.49 H POC ABG pH POC ABG pCO2 POC ABG pO2 Sodium Potassium Chloride Carbon Dioxide BUN Creatinine Glucose POC Glucose 250 H 307 H Lactic Acid Calcium Magnesium Total Bilirubin AST ALT Alkaline Phosphatase Ammonia Troponin T C-Reactive Protein Total Protein Albumin Prealbumin TSH Crossmatch 09/02/16 09/02/16 09/02/16 05:00 05:00 05:45 WBC 12.3 H RBC 2.57 L Hgb 7.1 L Hct 23.4 L MCV MCH MCHC RDW 23.9 H Plt Count Seg Neutrophils % Seg Neuts % (Manual) 72.0 H Nucleated RBC % 25.0 H Seg Neutrophils # Seg Neutrophils # Man 8.9 H PT INR POC ABG pH POC ABG pCO2 POC ABG pO2 Sodium Potassium Chloride Carbon Dioxide BUN Creatinine 1.4 H Glucose 299 H POC Glucose 327 H Lactic Acid Calcium 7.0 L Magnesium Total Bilirubin AST ALT Alkaline Phosphatase Ammonia Troponin T C-Reactive Protein Total Protein Albumin Prealbumin TSH Crossmatch 09/02/16 09/02/16 09/02/16 12:22 17:22 23:24 WBC RBC Hgb Hct MCV MCH MCHC RDW Plt Count Seg Neutrophils % Seg Neuts % (Manual) Nucleated RBC % Seg Neutrophils # Seg Neutrophils # Man PT INR POC ABG pH POC ABG pCO2 POC ABG pO2 Sodium Potassium Chloride Carbon Dioxide BUN Creatinine Glucose POC Glucose 310 H 358 H 286 H Lactic Acid Calcium Magnesium Total Bilirubin AST ALT Alkaline Phosphatase Ammonia Troponin T C-Reactive Protein Total Protein Albumin Prealbumin TSH Crossmatch 09/03/16 09/03/16 09/03/16 04:10 04:10 04:10 WBC 11.8 H RBC 2.29 L Hgb 6.1 L Hct 21.0 L MCV MCH 27 L MCHC 29 L RDW 24.1 H Plt Count Seg Neutrophils % Seg Neuts % (Manual) Nucleated RBC % Seg Neutrophils # Seg Neutrophils # Man PT 17.6 H INR 1.45 H POC ABG pH POC ABG pCO2 POC ABG pO2 Sodium Potassium Chloride Carbon Dioxide BUN Creatinine 1.4 H Glucose 301 H POC Glucose Lactic Acid Calcium 7.0 L Magnesium Total Bilirubin AST ALT Alkaline Phosphatase Ammonia Troponin T C-Reactive Protein Total Protein Albumin Prealbumin TSH Crossmatch 09/03/16 09/03/16 09/03/16 05:59 11:36 17:42 WBC RBC Hgb Hct MCV MCH MCHC RDW Plt Count Seg Neutrophils % Seg Neuts % (Manual) Nucleated RBC % Seg Neutrophils # Seg Neutrophils # Man PT INR POC ABG pH POC ABG pCO2 POC ABG pO2 Sodium Potassium Chloride Carbon Dioxide BUN Creatinine Glucose POC Glucose 351 H 285 H 259 H Lactic Acid Calcium Magnesium Total Bilirubin AST ALT Alkaline Phosphatase Ammonia Troponin T C-Reactive Protein Total Protein Albumin Prealbumin TSH Crossmatch 09/03/16 09/04/16 09/04/16 23:00 04:27 05:36 WBC RBC Hgb Hct MCV MCH MCHC RDW Plt Count Seg Neutrophils % Seg Neuts % (Manual) Nucleated RBC % Seg Neutrophils # Seg Neutrophils # Man PT INR POC ABG pH 7.544 H POC ABG pCO2 30.8 L POC ABG pO2 78 L Sodium Potassium Chloride Carbon Dioxide BUN Creatinine Glucose POC Glucose 192 H 228 H Lactic Acid Calcium Magnesium Total Bilirubin AST ALT Alkaline Phosphatase Ammonia Troponin T C-Reactive Protein Total Protein Albumin Prealbumin TSH Crossmatch 09/04/16 09/04/16 09/04/16 06:37 06:37 06:39 WBC 21.0 H RBC 2.22 L Hgb 6.0 L Hct 20.1 L MCV MCH 27 L MCHC RDW 24.3 H Plt Count Seg Neutrophils % Seg Neuts % (Manual) Nucleated RBC % Seg Neutrophils # Seg Neutrophils # Man PT 16.8 H INR 1.37 H POC ABG pH POC ABG pCO2 POC ABG pO2 Sodium Potassium Chloride Carbon Dioxide BUN Creatinine 1.4 H Glucose 201 H POC Glucose Lactic Acid Calcium 7.1 L Magnesium Total Bilirubin AST ALT Alkaline Phosphatase Ammonia Troponin T C-Reactive Protein Total Protein Albumin Prealbumin TSH Crossmatch 09/04/16 09/04/16 09/04/16 12:14 15:47 17:41 WBC RBC Hgb Hct MCV MCH MCHC RDW Plt Count Seg Neutrophils % Seg Neuts % (Manual) Nucleated RBC % Seg Neutrophils # Seg Neutrophils # Man PT INR POC ABG pH POC ABG pCO2 POC ABG pO2 Sodium Potassium Chloride Carbon Dioxide BUN Creatinine Glucose POC Glucose 176 H 218 H Lactic Acid Calcium Magnesium Total Bilirubin AST ALT Alkaline Phosphatase Ammonia Troponin T C-Reactive Protein Total Protein Albumin Prealbumin TSH Crossmatch See Detail 09/04/16 09/04/16 09/05/16 21:59 23:48 04:30 WBC RBC Hgb Hct MCV MCH MCHC RDW Plt Count Seg Neutrophils % Seg Neuts % (Manual) Nucleated RBC % Seg Neutrophils # Seg Neutrophils # Man PT 17.2 H INR 1.41 H POC ABG pH POC ABG pCO2 POC ABG pO2 Sodium Potassium Chloride Carbon Dioxide BUN Creatinine Glucose POC Glucose 170 H 121 H Lactic Acid Calcium Magnesium Total Bilirubin AST ALT Alkaline Phosphatase Ammonia Troponin T C-Reactive Protein Total Protein Albumin Prealbumin TSH Crossmatch 09/05/16 09/05/16 09/05/16 04:30 04:30 05:09 WBC 31.9 H RBC 3.11 L Hgb 8.5 L Hct 28.3 L D MCV MCH 27 L MCHC RDW 21.0 H Plt Count Seg Neutrophils % Seg Neuts % (Manual) Nucleated RBC % Seg Neutrophils # Seg Neutrophils # Man PT INR POC ABG pH 7.226 L POC ABG pCO2 61.6 H POC ABG pO2 68 L Sodium 134 L Potassium 5.5 H Chloride 96.6 L Carbon Dioxide BUN 23 H Creatinine 1.6 H Glucose 116 H POC Glucose Lactic Acid Calcium 7.1 L Magnesium Total Bilirubin AST ALT Alkaline Phosphatase Ammonia Troponin T C-Reactive Protein Total Protein Albumin Prealbumin TSH Crossmatch 09/05/16 09/05/16 09/05/16 05:33 12:08 17:32 WBC RBC Hgb Hct MCV MCH MCHC RDW Plt Count Seg Neutrophils % Seg Neuts % (Manual) Nucleated RBC % Seg Neutrophils # Seg Neutrophils # Man PT INR POC ABG pH POC ABG pCO2 POC ABG pO2 Sodium Potassium Chloride Carbon Dioxide BUN Creatinine Glucose POC Glucose 114 H 147 H 174 H Lactic Acid Calcium Magnesium Total Bilirubin AST ALT Alkaline Phosphatase Ammonia Troponin T C-Reactive Protein Total Protein Albumin Prealbumin TSH Crossmatch 09/06/16 09/06/16 09/06/16 03:30 03:30 03:30 WBC 25.4 H RBC 2.57 L Hgb 7.2 L Hct 22.8 L MCV MCH MCHC RDW 20.9 H Plt Count 138 L Seg Neutrophils % Seg Neuts % (Manual) Nucleated RBC % Seg Neutrophils # Seg Neutrophils # Man PT 16.4 H INR 1.33 H POC ABG pH POC ABG pCO2 POC ABG pO2 Sodium Potassium Chloride Carbon Dioxide BUN 36 H Creatinine 1.9 H Glucose POC Glucose Lactic Acid Calcium 7.2 L Magnesium Total Bilirubin AST ALT Alkaline Phosphatase Ammonia Troponin T C-Reactive Protein Total Protein Albumin Prealbumin TSH Crossmatch 09/06/16 09/06/16 09/06/16 11:07 12:03 14:44 WBC RBC Hgb Hct MCV MCH MCHC RDW Plt Count Seg Neutrophils % Seg Neuts % (Manual) Nucleated RBC % Seg Neutrophils # Seg Neutrophils # Man PT INR POC ABG pH POC ABG pCO2 POC ABG pO2 Sodium Potassium Chloride Carbon Dioxide BUN Creatinine Glucose POC Glucose 61 L 55 L Lactic Acid Calcium Magnesium Total Bilirubin AST ALT Alkaline Phosphatase Ammonia Troponin T 0.080 H C-Reactive Protein Total Protein Albumin Prealbumin TSH Crossmatch 09/06/16 09/06/16 09/07/16 21:05 23:53 03:36 WBC RBC Hgb Hct MCV MCH MCHC RDW Plt Count Seg Neutrophils % Seg Neuts % (Manual) Nucleated RBC % Seg Neutrophils # Seg Neutrophils # Man PT INR POC ABG pH POC ABG pCO2 POC ABG pO2 Sodium Potassium Chloride Carbon Dioxide BUN Creatinine Glucose POC Glucose 140 H 178 H 243 H Lactic Acid Calcium Magnesium Total Bilirubin AST ALT Alkaline Phosphatase Ammonia Troponin T C-Reactive Protein Total Protein Albumin Prealbumin TSH Crossmatch 09/07/16 09/07/16 09/07/16 03:42 03:42 05:04 WBC 17.3 H RBC 2.69 L Hgb 7.6 L Hct 23.8 L MCV MCH MCHC RDW 20.5 H Plt Count 137 L Seg Neutrophils % Seg Neuts % (Manual) Nucleated RBC % Seg Neutrophils # Seg Neutrophils # Man PT INR POC ABG pH POC ABG pCO2 POC ABG pO2 Sodium Potassium 3.3 L Chloride Carbon Dioxide BUN 38 H Creatinine 1.6 H Glucose 201 H POC Glucose 241 H Lactic Acid Calcium 7.4 L Magnesium Total Bilirubin AST ALT Alkaline Phosphatase Ammonia Troponin T C-Reactive Protein Total Protein Albumin Prealbumin TSH Crossmatch 09/07/16 09/07/16 09/07/16 11:46 17:41 23:18 WBC RBC Hgb Hct MCV MCH MCHC RDW Plt Count Seg Neutrophils % Seg Neuts % (Manual) Nucleated RBC % Seg Neutrophils # Seg Neutrophils # Man PT INR POC ABG pH POC ABG pCO2 POC ABG pO2 Sodium Potassium Chloride Carbon Dioxide BUN Creatinine Glucose POC Glucose 313 H 227 H 116 H Lactic Acid Calcium Magnesium Total Bilirubin AST ALT Alkaline Phosphatase Ammonia Troponin T C-Reactive Protein Total Protein Albumin Prealbumin TSH Crossmatch 09/08/16 09/08/16 09/08/16 04:00 04:00 05:15 WBC 18.4 H RBC 2.43 L Hgb 6.9 L Hct 21.5 L MCV MCH MCHC RDW 20.5 H Plt Count 119 L Seg Neutrophils % Seg Neuts % (Manual) Nucleated RBC % Seg Neutrophils # Seg Neutrophils # Man PT INR POC ABG pH 7.458 H POC ABG pCO2 POC ABG pO2 177 H Sodium Potassium 3.5 L Chloride Carbon Dioxide BUN 37 H Creatinine 1.3 H Glucose POC Glucose Lactic Acid Calcium 7.1 L Magnesium Total Bilirubin AST ALT Alkaline Phosphatase Ammonia Troponin T C-Reactive Protein Total Protein Albumin Prealbumin TSH Crossmatch 09/08/16 09/08/16 09/08/16 11:00 15:58 23:16 WBC RBC Hgb Hct MCV MCH MCHC RDW Plt Count Seg Neutrophils % Seg Neuts % (Manual) Nucleated RBC % Seg Neutrophils # Seg Neutrophils # Man PT INR POC ABG pH POC ABG pCO2 POC ABG pO2 113 H Sodium Potassium Chloride Carbon Dioxide BUN Creatinine Glucose POC Glucose 40 L Lactic Acid Calcium Magnesium Total Bilirubin AST ALT Alkaline Phosphatase Ammonia Troponin T C-Reactive Protein Total Protein Albumin Prealbumin TSH Crossmatch See Detail 09/09/16 09/09/16 09/09/16 05:02 12:33 18:10 WBC RBC Hgb Hct MCV MCH MCHC RDW Plt Count Seg Neutrophils % Seg Neuts % (Manual) Nucleated RBC % Seg Neutrophils # Seg Neutrophils # Man PT INR POC ABG pH 7.454 H POC ABG pCO2 POC ABG pO2 75 L Sodium Potassium Chloride Carbon Dioxide BUN Creatinine Glucose POC Glucose 59 L Lactic Acid Calcium Magnesium Total Bilirubin AST ALT Alkaline Phosphatase Ammonia Troponin T C-Reactive Protein Total Protein Albumin Prealbumin TSH 5.220 H Crossmatch 09/09/16 09/09/16 09/09/16 18:10 18:10 18:42 WBC 17.0 H RBC 2.90 L Hgb 8.5 L Hct 26.1 L MCV MCH MCHC RDW 17.9 H Plt Count 126 L Seg Neutrophils % Seg Neuts % (Manual) Nucleated RBC % Seg Neutrophils # Seg Neutrophils # Man PT INR POC ABG pH POC ABG pCO2 POC ABG pO2 Sodium Potassium Chloride Carbon Dioxide BUN 36 H Creatinine Glucose 133 H POC Glucose 148 H Lactic Acid Calcium 6.9 L Magnesium Total Bilirubin AST 253 H ALT 184 H Alkaline Phosphatase 729 H Ammonia Troponin T C-Reactive Protein Total Protein 5.1 L Albumin 1.7 L Prealbumin TSH Crossmatch 05/09/10/16 09/10/16 23:22 05:10 11:43 WBC RBC Hgb Hct MCV MCH MCHC RDW Plt Count Seg Neutrophils % Seg Neuts % (Manual) Nucleated RBC % Seg Neutrophils # Seg Neutrophils # Man PT INR POC ABG pH POC ABG pCO2 POC ABG pO2 Sodium Potassium Chloride Carbon Dioxide BUN 35 H Creatinine Glucose 240 H POC Glucose 170 H 268 H Lactic Acid Calcium 6.8 L Magnesium Total Bilirubin AST 226 H ALT 171 H Alkaline Phosphatase 710 H Ammonia Troponin T C-Reactive Protein Total Protein 5.2 L Albumin 1.7 L Prealbumin TSH Crossmatch 09/10/16 09/11/16 09/11/16 17:51 01:07 05:00 WBC RBC Hgb Hct MCV MCH MCHC RDW Plt Count Seg Neutrophils % Seg Neuts % (Manual) Nucleated RBC % Seg Neutrophils # Seg Neutrophils # Man PT INR POC ABG pH POC ABG pCO2 POC ABG pO2 Sodium Potassium 2.9 L* Chloride Carbon Dioxide BUN 35 H Creatinine Glucose 274 H POC Glucose 334 H 223 H Lactic Acid Calcium 6.9 L Magnesium Total Bilirubin AST 167 H ALT 145 H Alkaline Phosphatase 631 H Ammonia Troponin T C-Reactive Protein Total Protein 5.1 L Albumin 1.6 L Prealbumin TSH Crossmatch 09/11/16 09/11/16 09/11/16 05:01 12:16 17:12 WBC RBC Hgb Hct MCV MCH MCHC RDW Plt Count Seg Neutrophils % Seg Neuts % (Manual) Nucleated RBC % Seg Neutrophils # Seg Neutrophils # Man PT INR POC ABG pH POC ABG pCO2 POC ABG pO2 Sodium Potassium Chloride Carbon Dioxide BUN Creatinine Glucose POC Glucose 305 H 219 H 171 H Lactic Acid Calcium Magnesium Total Bilirubin AST ALT Alkaline Phosphatase Ammonia Troponin T C-Reactive Protein Total Protein Albumin Prealbumin TSH Crossmatch 09/11/16 09/12/16 09/12/16 23:35 03:33 05:00 WBC 12.9 H RBC 2.81 L Hgb 8.2 L Hct 25.4 L MCV MCH MCHC RDW 17.9 H Plt Count Seg Neutrophils % Seg Neuts % (Manual) Nucleated RBC % Seg Neutrophils # Seg Neutrophils # Man PT INR POC ABG pH POC ABG pCO2 POC ABG pO2 Sodium Potassium Chloride Carbon Dioxide BUN Creatinine Glucose POC Glucose 216 H 183 H Lactic Acid Calcium Magnesium Total Bilirubin AST ALT Alkaline Phosphatase Ammonia Troponin T C-Reactive Protein Total Protein Albumin Prealbumin TSH Crossmatch 09/12/16 09/12/16 09/12/16 05:00 15:15 18:30 WBC RBC Hgb Hct MCV MCH MCHC RDW Plt Count Seg Neutrophils % Seg Neuts % (Manual) Nucleated RBC % Seg Neutrophils # Seg Neutrophils # Man PT INR POC ABG pH POC ABG pCO2 POC ABG pO2 Sodium Potassium 3.0 L 3.4 L Chloride Carbon Dioxide BUN 33 H Creatinine 0.5 L Glucose POC Glucose 215 H Lactic Acid Calcium 7.0 L Magnesium Total Bilirubin AST ALT Alkaline Phosphatase Ammonia Troponin T C-Reactive Protein Total Protein Albumin Prealbumin TSH Crossmatch 09/12/16 09/13/16 09/13/16 23:17 05:50 05:50 WBC RBC 2.93 L Hgb 8.8 L Hct 26.7 L MCV MCH MCHC RDW 18.0 H Plt Count Seg Neutrophils % Seg Neuts % (Manual) Nucleated RBC % Seg Neutrophils # Seg Neutrophils # Man PT INR POC ABG pH POC ABG pCO2 POC ABG pO2 Sodium Potassium 2.6 L* D Chloride Carbon Dioxide BUN 29 H Creatinine 0.5 L Glucose 106 H POC Glucose 155 H Lactic Acid Calcium 7.3 L Magnesium Total Bilirubin AST ALT Alkaline Phosphatase Ammonia Troponin T C-Reactive Protein Total Protein Albumin Prealbumin TSH Crossmatch 09/13/16 09/13/16 09/13/16 05:53 11:43 15:07 WBC RBC Hgb Hct MCV MCH MCHC RDW Plt Count Seg Neutrophils % Seg Neuts % (Manual) Nucleated RBC % Seg Neutrophils # Seg Neutrophils # Man PT INR POC ABG pH POC ABG pCO2 POC ABG pO2 Sodium Potassium 2.8 L* Chloride Carbon Dioxide BUN Creatinine Glucose POC Glucose 119 H 129 H Lactic Acid Calcium Magnesium Total Bilirubin AST ALT Alkaline Phosphatase Ammonia Troponin T C-Reactive Protein Total Protein Albumin Prealbumin TSH Crossmatch 09/13/16 09/13/16 09/14/16 17:39 23:30 05:34 WBC RBC Hgb Hct MCV MCH MCHC RDW Plt Count Seg Neutrophils % Seg Neuts % (Manual) Nucleated RBC % Seg Neutrophils # Seg Neutrophils # Man PT INR POC ABG pH POC ABG pCO2 POC ABG pO2 Sodium Potassium Chloride Carbon Dioxide BUN Creatinine Glucose POC Glucose 144 H 196 H 175 H Lactic Acid Calcium Magnesium Total Bilirubin AST ALT Alkaline Phosphatase Ammonia Troponin T C-Reactive Protein Total Protein Albumin Prealbumin TSH Crossmatch 09/14/16 09/14/16 09/14/16 06:24 06:24 12:41 WBC RBC 2.82 L Hgb 8.4 L Hct 25.7 L MCV MCH MCHC RDW 18.0 H Plt Count Seg Neutrophils % Seg Neuts % (Manual) Nucleated RBC % Seg Neutrophils # Seg Neutrophils # Man PT INR POC ABG pH POC ABG pCO2 POC ABG pO2 Sodium Potassium 2.9 L* Chloride 107.3 H Carbon Dioxide BUN 26 H Creatinine 0.4 L Glucose 169 H POC Glucose 184 H Lactic Acid Calcium 7.5 L Magnesium Total Bilirubin AST ALT Alkaline Phosphatase Ammonia Troponin T C-Reactive Protein Total Protein Albumin Prealbumin TSH Crossmatch 09/14/16 09/14/16 09/14/16 14:50 17:57 23:34 WBC RBC Hgb Hct MCV MCH MCHC RDW Plt Count Seg Neutrophils % Seg Neuts % (Manual) Nucleated RBC % Seg Neutrophils # Seg Neutrophils # Man PT INR POC ABG pH POC ABG pCO2 POC ABG pO2 Sodium Potassium 3.3 L Chloride Carbon Dioxide BUN Creatinine Glucose POC Glucose 191 H 178 H Lactic Acid Calcium Magnesium Total Bilirubin AST ALT Alkaline Phosphatase Ammonia Troponin T C-Reactive Protein Total Protein Albumin Prealbumin TSH Crossmatch 09/15/16 09/15/16 09/15/16 05:02 07:57 07:57 WBC RBC 3.04 L Hgb 9.2 L Hct 28.2 L MCV MCH MCHC RDW 18.8 H Plt Count Seg Neutrophils % Seg Neuts % (Manual) Nucleated RBC % Seg Neutrophils # Seg Neutrophils # Man PT INR POC ABG pH POC ABG pCO2 POC ABG pO2 Sodium Potassium Chloride 107.2 H Carbon Dioxide BUN 26 H Creatinine 0.4 L Glucose 160 H POC Glucose 192 H Lactic Acid Calcium 7.7 L Magnesium Total Bilirubin AST ALT Alkaline Phosphatase Ammonia Troponin T C-Reactive Protein Total Protein Albumin Prealbumin TSH Crossmatch 09/15/16 09/15/16 09/15/16 11:23 17:51 23:45 WBC RBC Hgb Hct MCV MCH MCHC RDW Plt Count Seg Neutrophils % Seg Neuts % (Manual) Nucleated RBC % Seg Neutrophils # Seg Neutrophils # Man PT INR POC ABG pH POC ABG pCO2 POC ABG pO2 Sodium Potassium Chloride Carbon Dioxide BUN Creatinine Glucose POC Glucose 232 H 240 H 251 H Lactic Acid Calcium Magnesium Total Bilirubin AST ALT Alkaline Phosphatase Ammonia Troponin T C-Reactive Protein Total Protein Albumin Prealbumin TSH Crossmatch 09/16/16 09/16/16 09/16/16 04:55 04:55 05:38 WBC RBC 2.84 L Hgb 8.6 L Hct 26.2 L MCV MCH MCHC RDW 18.8 H Plt Count Seg Neutrophils % Seg Neuts % (Manual) Nucleated RBC % Seg Neutrophils # Seg Neutrophils # Man PT INR POC ABG pH POC ABG pCO2 POC ABG pO2 Sodium Potassium 3.1 L Chloride 107.6 H Carbon Dioxide BUN 25 H Creatinine 0.3 L Glucose 134 H POC Glucose 157 H Lactic Acid Calcium 7.6 L Magnesium Total Bilirubin AST ALT Alkaline Phosphatase Ammonia Troponin T C-Reactive Protein Total Protein Albumin Prealbumin TSH Crossmatch 09/16/16 09/16/16 09/16/16 11:53 17:56 23:54 WBC RBC Hgb Hct MCV MCH MCHC RDW Plt Count Seg Neutrophils % Seg Neuts % (Manual) Nucleated RBC % Seg Neutrophils # Seg Neutrophils # Man PT INR POC ABG pH POC ABG pCO2 POC ABG pO2 Sodium Potassium Chloride Carbon Dioxide BUN Creatinine Glucose POC Glucose 137 H 138 H 179 H Lactic Acid Calcium Magnesium Total Bilirubin AST ALT Alkaline Phosphatase Ammonia Troponin T C-Reactive Protein Total Protein Albumin Prealbumin TSH Crossmatch 09/17/16 09/17/16 09/17/16 05:00 05:00 05:28 WBC RBC 2.77 L Hgb 8.2 L Hct 25.9 L MCV MCH MCHC RDW 19.1 H Plt Count Seg Neutrophils % Seg Neuts % (Manual) Nucleated RBC % Seg Neutrophils # Seg Neutrophils # Man PT INR POC ABG pH POC ABG pCO2 POC ABG pO2 Sodium Potassium 3.5 L Chloride 108.4 H Carbon Dioxide BUN 29 H Creatinine 0.3 L Glucose 117 H POC Glucose 142 H Lactic Acid Calcium 7.4 L Magnesium Total Bilirubin AST ALT Alkaline Phosphatase Ammonia Troponin T C-Reactive Protein Total Protein Albumin Prealbumin TSH Crossmatch 09/17/16 09/17/16 09/18/16 18:07 23:31 06:29 WBC RBC Hgb Hct MCV MCH MCHC RDW Plt Count Seg Neutrophils % Seg Neuts % (Manual) Nucleated RBC % Seg Neutrophils # Seg Neutrophils # Man PT INR POC ABG pH POC ABG pCO2 POC ABG pO2 Sodium Potassium Chloride Carbon Dioxide BUN Creatinine Glucose POC Glucose 173 H 240 H 282 H Lactic Acid Calcium Magnesium Total Bilirubin AST ALT Alkaline Phosphatase Ammonia Troponin T C-Reactive Protein Total Protein Albumin Prealbumin TSH Crossmatch 09/18/16 09/18/16 09/18/16 06:30 12:21 17:55 WBC RBC Hgb Hct MCV MCH MCHC RDW Plt Count Seg Neutrophils % Seg Neuts % (Manual) Nucleated RBC % Seg Neutrophils # Seg Neutrophils # Man PT INR POC ABG pH POC ABG pCO2 POC ABG pO2 Sodium 148 H Potassium Chloride 110.7 H Carbon Dioxide BUN 30 H Creatinine 0.4 L Glucose 249 H POC Glucose 248 H 255 H Lactic Acid Calcium 7.4 L Magnesium 1.60 L Total Bilirubin AST ALT Alkaline Phosphatase Ammonia Troponin T C-Reactive Protein Total Protein Albumin Prealbumin TSH Crossmatch 09/19/16 09/19/16 09/19/16 00:09 04:45 05:11 WBC RBC Hgb Hct MCV MCH MCHC RDW Plt Count Seg Neutrophils % Seg Neuts % (Manual) Nucleated RBC % Seg Neutrophils # Seg Neutrophils # Man PT INR POC ABG pH POC ABG pCO2 POC ABG pO2 Sodium 146 H Potassium Chloride 110.8 H Carbon Dioxide BUN 34 H Creatinine 0.4 L Glucose 278 H POC Glucose 324 H 278 H Lactic Acid Calcium 7.3 L Magnesium Total Bilirubin AST ALT Alkaline Phosphatase Ammonia Troponin T C-Reactive Protein Total Protein Albumin Prealbumin TSH Crossmatch 09/19/16 09/19/16 09/19/16 11:12 12:09 17:10 WBC RBC Hgb Hct MCV MCH MCHC RDW Plt Count Seg Neutrophils % Seg Neuts % (Manual) Nucleated RBC % Seg Neutrophils # Seg Neutrophils # Man PT INR POC ABG pH POC ABG pCO2 POC ABG pO2 Sodium Potassium Chloride Carbon Dioxide BUN Creatinine Glucose POC Glucose 306 H 225 H 329 H Lactic Acid Calcium Magnesium Total Bilirubin AST ALT Alkaline Phosphatase Ammonia Troponin T C-Reactive Protein Total Protein Albumin Prealbumin TSH Crossmatch 09/19/16 09/20/16 09/20/16 23:34 04:52 05:00 WBC RBC Hgb Hct MCV MCH MCHC RDW Plt Count Seg Neutrophils % Seg Neuts % (Manual) Nucleated RBC % Seg Neutrophils # Seg Neutrophils # Man PT INR POC ABG pH POC ABG pCO2 POC ABG pO2 Sodium Potassium Chloride 108.6 H Carbon Dioxide BUN 35 H Creatinine 0.4 L Glucose 370 H POC Glucose 376 H 374 H Lactic Acid Calcium 7.3 L Magnesium Total Bilirubin AST ALT Alkaline Phosphatase Ammonia Troponin T C-Reactive Protein Total Protein Albumin Prealbumin TSH Crossmatch 09/20/16 09/20/16 09/20/16 11:18 17:39 23:49 WBC RBC Hgb Hct MCV MCH MCHC RDW Plt Count Seg Neutrophils % Seg Neuts % (Manual) Nucleated RBC % Seg Neutrophils # Seg Neutrophils # Man PT INR POC ABG pH POC ABG pCO2 POC ABG pO2 Sodium Potassium Chloride Carbon Dioxide BUN Creatinine Glucose POC Glucose 342 H 416 H 440 H Lactic Acid Calcium Magnesium Total Bilirubin AST ALT Alkaline Phosphatase Ammonia Troponin T C-Reactive Protein Total Protein Albumin Prealbumin TSH Crossmatch 09/21/16 09/21/16 09/21/16 04:58 05:15 05:15 WBC RBC 1.48 L Hgb 4.6 L* Hct 14.9 L* MCV 100 H MCH MCHC RDW 25.4 H Plt Count Seg Neutrophils % Seg Neuts % (Manual) Nucleated RBC % Seg Neutrophils # Seg Neutrophils # Man PT INR POC ABG pH POC ABG pCO2 POC ABG pO2 Sodium Potassium Chloride 107.5 H Carbon Dioxide 20 L BUN 45 H Creatinine 0.6 L Glucose 490 H POC Glucose > 500 H Lactic Acid Calcium 7.0 L Magnesium Total Bilirubin AST ALT Alkaline Phosphatase Ammonia Troponin T C-Reactive Protein Total Protein Albumin Prealbumin TSH Crossmatch 09/21/16 09/21/16 09/21/16 08:20 09:17 12:09 WBC RBC Hgb Hct MCV MCH MCHC RDW Plt Count Seg Neutrophils % Seg Neuts % (Manual) Nucleated RBC % Seg Neutrophils # Seg Neutrophils # Man PT INR POC ABG pH 7.464 H POC ABG pCO2 29.3 L POC ABG pO2 198 H Sodium Potassium Chloride Carbon Dioxide BUN Creatinine Glucose POC Glucose 248 H Lactic Acid Calcium Magnesium Total Bilirubin AST ALT Alkaline Phosphatase Ammonia Troponin T C-Reactive Protein Total Protein Albumin Prealbumin TSH Crossmatch See Detail 09/21/16 09/21/16 09/21/16 15:21 17:36 18:49 WBC RBC Hgb Hct MCV MCH MCHC RDW Plt Count Seg Neutrophils % Seg Neuts % (Manual) Nucleated RBC % Seg Neutrophils # Seg Neutrophils # Man PT INR POC ABG pH POC ABG pCO2 POC ABG pO2 Sodium Potassium Chloride Carbon Dioxide BUN Creatinine Glucose POC Glucose 403 H 437 H 482 H Lactic Acid Calcium Magnesium Total Bilirubin AST ALT Alkaline Phosphatase Ammonia Troponin T C-Reactive Protein Total Protein Albumin Prealbumin TSH Crossmatch 09/21/16 09/22/16 09/22/16 23:29 00:00 01:29 WBC 14.8 H RBC 2.94 L Hgb 9.1 L D Hct 27.5 L D MCV MCH MCHC RDW 16.7 H Plt Count Seg Neutrophils % Seg Neuts % (Manual) Nucleated RBC % Seg Neutrophils # Seg Neutrophils # Man PT INR POC ABG pH POC ABG pCO2 POC ABG pO2 Sodium Potassium Chloride Carbon Dioxide BUN Creatinine Glucose POC Glucose 311 H 288 H Lactic Acid Calcium Magnesium Total Bilirubin AST ALT Alkaline Phosphatase Ammonia Troponin T C-Reactive Protein Total Protein Albumin Prealbumin TSH Crossmatch 09/22/16 09/22/16 09/22/16 02:29 03:12 03:26 WBC RBC Hgb Hct MCV MCH MCHC RDW Plt Count Seg Neutrophils % Seg Neuts % (Manual) Nucleated RBC % Seg Neutrophils # Seg Neutrophils # Man PT INR POC ABG pH 7.460 H POC ABG pCO2 29.9 L POC ABG pO2 112 H Sodium Potassium Chloride Carbon Dioxide BUN Creatinine Glucose POC Glucose 261 H 239 H Lactic Acid Calcium Magnesium Total Bilirubin AST ALT Alkaline Phosphatase Ammonia Troponin T C-Reactive Protein Total Protein Albumin Prealbumin TSH Crossmatch 09/22/16 09/22/16 09/22/16 05:35 06:40 06:40 WBC 13.5 H RBC 3.18 L Hgb 9.5 L Hct 28.8 L MCV MCH MCHC RDW 16.2 H Plt Count Seg Neutrophils % Seg Neuts % (Manual) Nucleated RBC % Seg Neutrophils # Seg Neutrophils # Man PT INR POC ABG pH POC ABG pCO2 POC ABG pO2 Sodium 147 H Potassium 3.2 L D Chloride 112.3 H Carbon Dioxide BUN 49 H Creatinine 0.6 L Glucose 102 H POC Glucose 181 H Lactic Acid Calcium 7.5 L Magnesium Total Bilirubin AST ALT Alkaline Phosphatase Ammonia Troponin T C-Reactive Protein Total Protein Albumin Prealbumin TSH Crossmatch 09/22/16 09/22/16 09/22/16 07:16 18:03 20:05 WBC RBC Hgb Hct MCV MCH MCHC RDW Plt Count Seg Neutrophils % Seg Neuts % (Manual) Nucleated RBC % Seg Neutrophils # Seg Neutrophils # Man PT INR POC ABG pH POC ABG pCO2 POC ABG pO2 Sodium Potassium Chloride Carbon Dioxide BUN Creatinine Glucose POC Glucose 152 H 115 H 107 H Lactic Acid Calcium Magnesium Total Bilirubin AST ALT Alkaline Phosphatase Ammonia Troponin T C-Reactive Protein Total Protein Albumin Prealbumin TSH Crossmatch 09/22/16 09/22/16 09/23/16 21:00 23:55 02:02 WBC 13.8 H RBC 3.04 L Hgb 9.2 L Hct 28.0 L MCV MCH MCHC RDW 16.2 H Plt Count Seg Neutrophils % Seg Neuts % (Manual) Nucleated RBC % Seg Neutrophils # Seg Neutrophils # Man PT INR POC ABG pH POC ABG pCO2 POC ABG pO2 Sodium Potassium Chloride Carbon Dioxide BUN Creatinine Glucose POC Glucose 133 H 110 H Lactic Acid Calcium Magnesium Total Bilirubin AST ALT Alkaline Phosphatase Ammonia Troponin T C-Reactive Protein Total Protein Albumin Prealbumin TSH Crossmatch 09/23/16 09/23/16 09/23/16 04:45 04:45 05:36 WBC 13.6 H RBC 2.86 L Hgb 8.6 L Hct 26.4 L MCV MCH MCHC RDW 17.1 H Plt Count Seg Neutrophils % Seg Neuts % (Manual) Nucleated RBC % Seg Neutrophils # Seg Neutrophils # Cristian PT INR POC ABG pH POC ABG pCO2 POC ABG pO2 Sodium Potassium Chloride 109.2 H Carbon Dioxide 21 L BUN 43 H Creatinine 0.5 L Glucose 152 H POC Glucose 133 H Lactic Acid Calcium 7.7 L Magnesium Total Bilirubin AST ALT Alkaline Phosphatase Ammonia Troponin T C-Reactive Protein Total Protein Albumin Prealbumin TSH Crossmatch 09/23/16 09/23/16 09/23/16 07:42 11:55 13:26 WBC RBC Hgb Hct MCV MCH MCHC RDW Plt Count Seg Neutrophils % Seg Neuts % (Manual) Nucleated RBC % Seg Neutrophils # Seg Neutrophils # Cristian PT INR POC ABG pH POC ABG pCO2 POC ABG pO2 Sodium Potassium Chloride Carbon Dioxide BUN Creatinine Glucose POC Glucose 175 H 170 H 195 H Lactic Acid Calcium Magnesium Total Bilirubin AST ALT Alkaline Phosphatase Ammonia Troponin T C-Reactive Protein Total Protein Albumin Prealbumin TSH Crossmatch 09/23/16 09/23/16 09/24/16 17:37 21:54 02:56 WBC RBC Hgb Hct MCV MCH MCHC RDW Plt Count Seg Neutrophils % Seg Neuts % (Manual) Nucleated RBC % Seg Neutrophils # Seg Neutrophils # Man PT INR POC ABG pH POC ABG pCO2 POC ABG pO2 Sodium Potassium Chloride Carbon Dioxide BUN Creatinine Glucose POC Glucose 182 H 184 H 187 H Lactic Acid Calcium Magnesium Total Bilirubin AST ALT Alkaline Phosphatase Ammonia Troponin T C-Reactive Protein Total Protein Albumin Prealbumin TSH Crossmatch 09/24/16 09/24/16 09/24/16 05:00 05:00 05:22 WBC RBC 2.82 L Hgb 8.8 L Hct 27.0 L MCV MCH MCHC RDW 17.2 H Plt Count Seg Neutrophils % Seg Neuts % (Manual) Nucleated RBC % Seg Neutrophils # Seg Neutrophils # Man PT INR POC ABG pH POC ABG pCO2 POC ABG pO2 Sodium 148 H Potassium Chloride 115.0 H Carbon Dioxide 21 L BUN 38 H Creatinine 0.6 L Glucose 163 H POC Glucose 194 H Lactic Acid Calcium 7.9 L Magnesium Total Bilirubin AST ALT Alkaline Phosphatase Ammonia Troponin T C-Reactive Protein Total Protein Albumin Prealbumin TSH Crossmatch 09/24/16 09/24/16 09/24/16 11:02 13:55 17:37 WBC RBC Hgb Hct MCV MCH MCHC RDW Plt Count Seg Neutrophils % Seg Neuts % (Manual) Nucleated RBC % Seg Neutrophils # Seg Neutrophils # Man PT INR POC ABG pH POC ABG pCO2 POC ABG pO2 Sodium Potassium Chloride Carbon Dioxide BUN Creatinine Glucose POC Glucose 210 H 182 H 169 H Lactic Acid Calcium Magnesium Total Bilirubin AST ALT Alkaline Phosphatase Ammonia Troponin T C-Reactive Protein Total Protein Albumin Prealbumin TSH Crossmatch 09/25/16 09/25/16 09/25/16 02:15 05:14 09:39 WBC RBC Hgb Hct MCV MCH MCHC RDW Plt Count Seg Neutrophils % Seg Neuts % (Manual) Nucleated RBC % Seg Neutrophils # Seg Neutrophils # Man PT INR POC ABG pH POC ABG pCO2 POC ABG pO2 Sodium Potassium Chloride Carbon Dioxide BUN Creatinine Glucose POC Glucose 139 H 151 H 184 H Lactic Acid Calcium Magnesium Total Bilirubin AST ALT Alkaline Phosphatase Ammonia Troponin T C-Reactive Protein Total Protein Albumin Prealbumin TSH Crossmatch 09/25/16 09/25/16 09/25/16 09:48 09:48 13:47 WBC RBC 2.76 L Hgb 8.7 L Hct 26.2 L MCV MCH MCHC RDW 17.3 H Plt Count Seg Neutrophils % Seg Neuts % (Manual) Nucleated RBC % Seg Neutrophils # Seg Neutrophils # Man PT INR POC ABG pH POC ABG pCO2 POC ABG pO2 Sodium 150 H Potassium Chloride 115.6 H Carbon Dioxide BUN 34 H Creatinine 0.4 L Glucose 168 H POC Glucose 167 H Lactic Acid Calcium 7.9 L Magnesium Total Bilirubin AST ALT Alkaline Phosphatase Ammonia Troponin T C-Reactive Protein Total Protein Albumin Prealbumin TSH Crossmatch 09/25/16 09/25/16 09/26/16 17:57 21:44 00:05 WBC RBC Hgb Hct MCV MCH MCHC RDW Plt Count Seg Neutrophils % Seg Neuts % (Manual) Nucleated RBC % Seg Neutrophils # Seg Neutrophils # Man PT INR POC ABG pH POC ABG pCO2 POC ABG pO2 Sodium Potassium Chloride Carbon Dioxide BUN Creatinine Glucose POC Glucose 206 H 188 H 188 H Lactic Acid Calcium Magnesium Total Bilirubin AST ALT Alkaline Phosphatase Ammonia Troponin T C-Reactive Protein Total Protein Albumin Prealbumin TSH Crossmatch 09/26/16 09/26/16 09/26/16 01:29 03:46 03:46 WBC RBC 2.76 L Hgb 8.6 L Hct 26.2 L MCV MCH MCHC RDW 18.2 H Plt Count Seg Neutrophils % Seg Neuts % (Manual) Nucleated RBC % Seg Neutrophils # Seg Neutrophils # Man PT INR POC ABG pH POC ABG pCO2 POC ABG pO2 Sodium 147 H Potassium Chloride 114.1 H Carbon Dioxide BUN 28 H Creatinine 0.4 L Glucose 172 H POC Glucose 198 H Lactic Acid Calcium 7.6 L Magnesium Total Bilirubin AST ALT Alkaline Phosphatase Ammonia Troponin T C-Reactive Protein Total Protein Albumin Prealbumin TSH Crossmatch 09/26/16 09/26/16 09/26/16 08:08 12:39 16:56 WBC RBC Hgb Hct MCV MCH MCHC RDW Plt Count Seg Neutrophils % Seg Neuts % (Manual) Nucleated RBC % Seg Neutrophils # Seg Neutrophils # Man PT INR POC ABG pH POC ABG pCO2 POC ABG pO2 Sodium Potassium Chloride Carbon Dioxide BUN Creatinine Glucose POC Glucose 161 H 176 H 128 H Lactic Acid Calcium Magnesium Total Bilirubin AST ALT Alkaline Phosphatase Ammonia Troponin T C-Reactive Protein Total Protein Albumin Prealbumin TSH Crossmatch 09/26/16 09/27/16 09/27/16 21:33 06:31 07:23 WBC RBC Hgb Hct MCV MCH MCHC RDW Plt Count Seg Neutrophils % Seg Neuts % (Manual) Nucleated RBC % Seg Neutrophils # Seg Neutrophils # Man PT INR POC ABG pH POC ABG pCO2 POC ABG pO2 Sodium Potassium Chloride Carbon Dioxide BUN Creatinine Glucose POC Glucose 120 H 209 H 173 H Lactic Acid Calcium Magnesium Total Bilirubin AST ALT Alkaline Phosphatase Ammonia Troponin T C-Reactive Protein Total Protein Albumin Prealbumin TSH Crossmatch 09/27/16 11:31 WBC RBC Hgb Hct MCV MCH MCHC RDW Plt Count Seg Neutrophils % Seg Neuts % (Manual) Nucleated RBC % Seg Neutrophils # Seg Neutrophils # Man PT INR POC ABG pH POC ABG pCO2 POC ABG pO2 Sodium Potassium Chloride Carbon Dioxide BUN Creatinine Glucose POC Glucose 185 H Lactic Acid Calcium Magnesium Total Bilirubin AST ALT Alkaline Phosphatase Ammonia Troponin T C-Reactive Protein Total Protein Albumin Prealbumin TSH Crossmatch Allied health notes reviewed: RT
--- NOTE | 2016-09-27 16:26 | Progress Note ---
Subjective Date of service: 09/27/16 Principal diagnosis: Acute Hypoxemic Hypercapnic Resp Failure; Severe Sepsis Interval history: Patient is a 61-year-old morbid obese woman with a history of congestive heart failure, severe protein calorie malnutrition (bilateral faith muscle severe wasting, hypothenar muscle wasting) with BMI of 81.6, functional quadriplegia, type 2 diabetes mellitus, hypertension, multiple skin breakdown between legs and thighs who presented to the hospital via EMS with AMS. 2D echocardiogram with ejection fraction of 50-55%. During the past admission, patient was recommended for placement but refused. On presentation to ED, patient was felt to be unable to maintain her airways and intubated the ER since 08/29/16. 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 placement when stable -Severe anemia s/p blood transfusion: monitor H/H -Paroxysmal atrial fibrillation: -Non-ST elevated TN type 2: Medical management -Acute on chronic kidney disease III: stable -Severe protein calorie malnutrition albumin 1.2. Continue nasogastric tube feedings -Morbid obesity BMI 81.6 -Mulitple PRESSURE ULCERS-POA: consulted wound care - DM: on ssi, s/p insulin drip -Acute anemia with drop in HCT s/p 5 units of PRBC monitor H&H as needed -Dvt prophylaxis: sq lovenox per [facility] Disposition: LTAC declined, case management is working on plan DNR Subjective: Patient is intubated and sedated unresponsive Objective: GEN: Critically ill, morbid obese BMI 81.6, intubated, HEENT: Pupils are pinpoint and reactive, ET tube in place NECK: SUPPLE, NO THYROMEGALY, NO JVD, CVS: regular NORMAL S1 S2 LUNGS/CHEST: CTA, NORMAL CHEST EXPANSION B, GOOD AIR ENTRY B ABD: SOFT, NONDISTENDED NEURO: doesn't follow commands, unresponsive PSY: awake with eyes open Extremities: 3+ all extremity edema Objective - Constitutional Vitals: Vital Signs - 12hr 09/27/16 09/27/16 09/27/16 05:00 05:29 05:58 Temperature Pulse Rate 81 87 80 Pulse Rate [ Anterior Bilateral Throughout] Pulse Rate [ From Monitor] Respiratory 25 H Rate Respiratory Rate [Anterior Bilateral Throughout] Blood Pressure 132/54 131/80 132/54 O2 Sat by Pulse 98 Oximetry 09/27/16 09/27/16 09/27/16 06:00 07:00 07:25 Temperature Pulse Rate 87 82 84 Pulse Rate [ 87 Anterior Bilateral Throughout] Pulse Rate [ From Monitor] Respiratory 27 H 21 Rate Respiratory 27 H Rate [Anterior Bilateral Throughout] Blood Pressure 139/61 139/61 122/89 O2 Sat by Pulse 99 79 L 100 Oximetry 09/27/16 09/27/16 09/27/16 07:35 08:00 09:00 Temperature 97.5 F L Pulse Rate 75 77 Pulse Rate [ 89 Anterior Bilateral Throughout] Pulse Rate [ 72 From Monitor] Respiratory 25 H 26 H Rate Respiratory 31 H Rate [Anterior Bilateral Throughout] Blood Pressure 94/34 105/57 O2 Sat by Pulse 100 100 Oximetry 09/27/16 09/27/16 09/27/16 10:00 11:00 11:18 Temperature Pulse Rate 77 77 69 Pulse Rate [ Anterior Bilateral Throughout] Pulse Rate [ From Monitor] Respiratory 25 H 26 H 24 Rate Respiratory Rate [Anterior Bilateral Throughout] Blood Pressure 113/65 113/65 132/65 O2 Sat by Pulse 100 100 100 Oximetry 09/27/16 09/27/16 09/27/16 12:00 12:30 13:00 Temperature 98.5 F Pulse Rate 82 80 83 Pulse Rate [ Anterior Bilateral Throughout] Pulse Rate [ From Monitor] Respiratory 25 H 25 H Rate Respiratory Rate [Anterior Bilateral Throughout] Blood Pressure 132/65 132/65 106/60 O2 Sat by Pulse 100 100 Oximetry 09/27/16 09/27/16 09/27/16 13:17 13:28 14:00 Temperature Pulse Rate 82 Pulse Rate [ 72 77 Anterior Bilateral Throughout] Pulse Rate [ From Monitor] Respiratory 28 H Rate Respiratory 25 H 27 H Rate [Anterior Bilateral Throughout] Blood Pressure 103/60 O2 Sat by Pulse 100 Oximetry - Labs CBC & Chem 7: 09/26/16 03:46 09/26/16 03:46 Labs: Abnormal lab results 09/26/16 09/26/16 09/27/16 Range/Units 16:56 21:33 06:31 POC Glucose 128 H 120 H 209 H (70-105) 06/18/17 06/18/17 Range/Units 07:23 11:31 POC Glucose 173 H 185 H (70-105)
[2016-09-27] MEDS: LASIX IV SCH (19:59)
[2016-09-28] MEDS: DUONEB 0.5 MG-3 MG/3 ML SOLN IH SCH ×4 (01:58→19:30)
[2016-09-28] MEDS: NOVOLOG SUB-Q SCH ×6 (02:02→22:29)
[2016-09-28 04:49] LABS: Hematocrit 28.7 % (30.3-42.9); Hemoglobin 9.4 gm/dl (10.1-14.3); Mean Corpuscular HGB Conc 33 % (30-34); Mean Corpuscular Hemoglobin 31 pg (28-32); Mean Corpuscular Volume 96 fl (79-97); Platelet Count 258 K/mm3 (140-440); Red Cell Distribution Width 19.1 % (13.2-15.2); White Blood Count 7.8 K/mm3 (4.5-11.0)
[2016-09-28 05:07] LABS: Anion Gap 14 mmol/L; Blood Urea Nitrogen 24 mg/dL (7-17); Calcium 7.9 mg/dL (8.4-10.2); Carbon Dioxide 22 mmol/L (22-30); Chloride 110.5 mmol/L (98-107); Glucose 214 mg/dL (65-100); Potassium 3.8 mmol/L (3.6-5.0); Sodium 143 mmol/L (137-145)
[2016-09-28] MEDS: LOPRESSOR PO SCH ×4 (05:46→23:00)
[2016-09-28] MEDS: PROAMATINE PO SCH ×3 (06:48→22:05)
[2016-09-28] MEDS: LASIX IV SCH ×4 (09:09→22:06)
[2016-09-28] MEDS: POTASSIUM CHLORIDE FEEDTUBE SCH (11:18)
[2016-09-28] MEDS: PROTONIX PO SCH (11:18)
[2016-09-28] MEDS: FERROUS SULFATE PO SCH (11:18)
[2016-09-28] MEDS: LEVEMIR SUB-Q SCH (11:19)
[2016-09-28] MEDS: KEPPRA PO SCH ×2 (11:19→22:05)
[2016-09-28] MEDS: FOLVITE PO SCH (11:19)
[2016-09-28] MEDS: SYNTHROID PO SCH (11:19)
--- NOTE | 2016-09-28 12:05 | Progress Note ---
Assessment and Plan - Patient Problems (1) Respiratory failure Current Visit: Yes Status: Acute Qualifiers: Chronicity: C Respiratory failure complication: R Plan to address problem: Currently on mechanical ventilatory support AC-VC at night an dpressure suppport during the day VAP bundle addressed Wean FIO2 for O2 sats>92% HOB>40, aspiration precautions VTE prophylaxis- discontinue enoxaparin in view of anemia and use SCDs Stress ulcer prophylaxis- Pantoprazole Lung protective strategies Tracheostomy placement today Continue with enteric feedings, monitor accucheck (2) Shock Current Visit: Yes Status: Acute Plan to address problem: Treated as septic shock secondary to HCAP -resolved (3) Acute on chronic diastolic (congestive) heart failure Current Visit: No Status: Acute Plan to address problem: Documented EF 55% Continue to monitoring renal function and electrolyte profile closely Monitor urine output, electrolyte profile (4) Altered mental status Current Visit: Yes Status: Acute Qualifiers: Altered mental status type: unspecified Coma depth: C Coma timing: C Qualified Code(s): R41.82 - Altered mental status, unspecified Plan to address problem: Neurology following (5) Morbid obesity Current Visit: Yes Status: Acute Qualifiers: Obesity type: unspecified obesity type Qualified Code(s): E66.01 - Morbid ( severe) obesity due to excess calories (6) Anemia Current Visit: Yes Status: Acute Qualifiers: Anemia type: unspecified type Iron deficiency anemia type: I Vitamin B12 deficiency anemia type: V Folate deficiency anemia type: F Bone marrow failure anemia type: B Hemolytic anemia type: H Other causes of anemia: O Chronic kidney disease stage: C Qualified Code(s): D64.9 - Anemia, unspecified Plan to address problem: Continue to moitor PEG placement Supportive transfusions (7) Status epilepticus Current Visit: Yes Status: Acute Plan to address problem: Continue AEDs Neurology following (8) Status epilepticus due to refractory complex partial seizures Current Visit: Yes Status: Acute Plan to address problem: Keppra and Dilantin Neurology following. (9) Discharge planning issues Current Visit: Yes Status: Acute Plan to address problem: Continue current care. AND/DNR LTACH placement. PEG/Tracheostomy placement to facilitate discharge planning and on-going care Subjective Date of service: 09/28/16 Principal diagnosis: Acute Hypoxemic Hypercapnic Resp Failure; Severe Sepsis Interval history: Remains orally intubated. Seen and examined. Vitals, labs, medications, chart and imaging reviewed. No seizures overnight Patient is now DNR in the event of cardiopulmonary arrest Awaiting tracheostomy placement and PEG placement Tolerating spontaneou breathing trials during the day and full support at night. PS10/5, with tidal volumes of 340 AC/VC 25/400/5/25% Objective - Exam Narrative Exam: GEN: Critically ill, morbid obese BMI 81.6, intubated, HEENT: Pupils are pinpoint and reactive, ET tube in place NECK: SUPPLE, NO THYROMEGALY, NO JVD, NO LAD CVS: regular irregular NORMAL S1S2 LUNGS/CHEST: TA B, NORMAL CHEST EXPANSION B, GOOD AIR ENTRY B ABD: SOFT, NONDISTENDED GBS, NO REBOUND OR GUARDING NEURO: doesn't follow commands PSY: awake with eyes open Extremities: 3+ edema Vital Signs - 12hr 09/28/16 09/28/16 09/28/16 01:00 01:58 02:00 Temperature Pulse Rate 96 H 97 H Pulse Rate [ 81 Anterior Bilateral Throughout] Respiratory 29 H 32 H Rate Respiratory 25 H Rate [Anterior Bilateral Throughout] Blood Pressure 100/56 99/46 O2 Sat by Pulse 99 99 Oximetry 09/28/16 09/28/16 09/28/16 03:00 03:46 03:55 Temperature 97.6 F Pulse Rate 83 81 Pulse Rate [ Anterior Bilateral Throughout] Respiratory 28 H Rate Respiratory Rate [Anterior Bilateral Throughout] Blood Pressure 183/132 117/70 O2 Sat by Pulse 98 97 Oximetry 09/28/16 09/28/16 09/28/16 04:00 05:00 05:46 Temperature Pulse Rate 78 69 75 Pulse Rate [ Anterior Bilateral Throughout] Respiratory 28 H 27 H Rate Respiratory Rate [Anterior Bilateral Throughout] Blood Pressure 98/35 142/74 142/74 O2 Sat by Pulse 100 100 Oximetry 09/28/16 09/28/16 09/28/16 07:41 08:05 08:12 Temperature 96.7 F L Pulse Rate 66 Pulse Rate [ 65 Anterior Bilateral Throughout] Respiratory 22 Rate Respiratory 25 H Rate [Anterior Bilateral Throughout] Blood Pressure 183/132 O2 Sat by Pulse 97 Oximetry 09/28/16 09/28/16 09/28/16 08:16 08:20 08:30 Temperature Pulse Rate 65 71 Pulse Rate [ 65 Anterior Bilateral Throughout] Respiratory 28 H 28 H Rate Respiratory Rate [Anterior Bilateral Throughout] Blood Pressure 183/132 183/132 O2 Sat by Pulse 98 99 Oximetry 09/28/16 09/28/16 09/28/16 08:46 09:00 09:15 Temperature Pulse Rate 75 78 68 Pulse Rate [ Anterior Bilateral Throughout] Respiratory 33 H 32 H 33 H Rate Respiratory Rate [Anterior Bilateral Throughout] Blood Pressure 183/132 117/51 114/87 O2 Sat by Pulse 100 100 99 Oximetry 09/28/16 09/28/16 09/28/16 09:30 09:35 09:45 Temperature Pulse Rate 72 82 78 Pulse Rate [ Anterior Bilateral Throughout] Respiratory 33 H 39 H Rate Respiratory Rate [Anterior Bilateral Throughout] Blood Pressure 114/87 114/87 O2 Sat by Pulse 100 99 100 Oximetry 09/28/16 09/28/16 09/28/16 10:01 10:15 10:31 Temperature Pulse Rate 70 67 76 Pulse Rate [ Anterior Bilateral Throughout] Respiratory 31 H 29 H 33 H Rate Respiratory Rate [Anterior Bilateral Throughout] Blood Pressure 106/16 106/16 106/16 O2 Sat by Pulse 100 100 98 Oximetry 09/28/16 09/28/16 09/28/16 10:45 11:01 11:15 Temperature Pulse Rate 77 74 75 Pulse Rate [ Anterior Bilateral Throughout] Respiratory 36 H 21 33 H Rate Respiratory Rate [Anterior Bilateral Throughout] Blood Pressure 106/16 82/26 82/26 O2 Sat by Pulse 99 100 100 Oximetry 09/28/16 11:25 Temperature Pulse Rate 72 Pulse Rate [ Anterior Bilateral Throughout] Respiratory Rate Respiratory Rate [Anterior Bilateral Throughout] Blood Pressure 82/26 O2 Sat by Pulse Oximetry Constitutional: no acute distress, other (encephalopathic) Eyes: non-icteric ENT: oropharynx moist, other (ETT 22cm RAFAEL) Neck: supple, no lymphadenopathy Effort: mildly labored Ascultation: Bilateral: clear, diminished breath sounds, rales (bases) Cardiovascular: regular rate and rhythm Gastrointestinal: hypoactive bowel sounds, soft, non-tender, non-distended Integumentary: normal Extremities: no cyanosis, pulses normal, no ischemia or petechiae, edema (1++) Neurologic: unable to assess, other (lethargic) Psychiatric: other (sedated) CBC and BMP: 09/28/16 04:00 09/28/16 04:00 ABG, PT/INR, D-dimer: ABG POC ABG pH 7.460 (7.35-7.45) H 09/22/16 03:26 POC ABG pCO2 29.9 (35-45) L 09/22/16 03:26 POC ABG pO2 112 (80-105) H 09/22/16 03:26 POC ABG HCO3 21.3 09/22/16 03:26 POC ABG Total CO2 22 09/22/16 03:26 POC ABG O2 Sat 99 09/22/16 03:26 PT/INR, D-dimer PT 13.8 Sec. (12.2-14.9) 09/10/16 05:10 INR 1.07 (0.87-1.13) 09/10/16 05:10 Abnormal lab findings: Abnormal Labs 08/29/16 08/30/16 08/30/16 21:59 00:16 05:39 WBC RBC Hgb Hct MCV MCH MCHC RDW Plt Count Seg Neutrophils % Seg Neuts % (Manual) Nucleated RBC % Seg Neutrophils # Seg Neutrophils # Man PT INR POC ABG pH POC ABG pCO2 POC ABG pO2 Sodium Potassium Chloride Carbon Dioxide BUN Creatinine Glucose POC Glucose 106 H 128 H Lactic Acid Calcium Magnesium Total Bilirubin AST ALT Alkaline Phosphatase Ammonia Troponin T C-Reactive Protein Total Protein Albumin Prealbumin 0.120 L TSH Crossmatch 08/30/16 08/30/16 08/30/16 10:30 10:30 11:12 WBC 11.1 H RBC 3.16 L Hgb 8.7 L Hct 29.9 L MCV MCH MCHC 29 L RDW 25.0 H Plt Count Seg Neutrophils % 78.6 H Seg Neuts % (Manual) Nucleated RBC % Seg Neutrophils # 8.7 H Seg Neutrophils # Man PT INR POC ABG pH POC ABG pCO2 POC ABG pO2 Sodium 135 L Potassium Chloride Carbon Dioxide 20 L BUN Creatinine 1.5 H Glucose 148 H POC Glucose 142 H Lactic Acid Calcium 7.2 L Magnesium Total Bilirubin 1.30 H AST 143 H ALT Alkaline Phosphatase 392 H Ammonia Troponin T C-Reactive Protein Total Protein 6.1 L Albumin 1.2 L Prealbumin TSH Crossmatch 08/30/16 08/30/16 08/30/16 17:41 18:03 18:18 WBC RBC Hgb Hct MCV MCH MCHC RDW Plt Count Seg Neutrophils % Seg Neuts % (Manual) Nucleated RBC % Seg Neutrophils # Seg Neutrophils # Man PT INR POC ABG pH 7.316 L POC ABG pCO2 POC ABG pO2 44 L 59 L Sodium Potassium Chloride Carbon Dioxide BUN Creatinine Glucose POC Glucose 150 H Lactic Acid Calcium Magnesium Total Bilirubin AST ALT Alkaline Phosphatase Ammonia Troponin T C-Reactive Protein Total Protein Albumin Prealbumin TSH Crossmatch 08/30/16 08/30/16 08/31/16 22:20 22:20 00:11 WBC RBC Hgb Hct MCV MCH MCHC RDW Plt Count Seg Neutrophils % Seg Neuts % (Manual) Nucleated RBC % Seg Neutrophils # Seg Neutrophils # Man PT INR POC ABG pH POC ABG pCO2 POC ABG pO2 Sodium Potassium Chloride Carbon Dioxide BUN Creatinine Glucose POC Glucose 133 H Lactic Acid 2.30 H* Calcium Magnesium Total Bilirubin AST ALT Alkaline Phosphatase Ammonia Troponin T C-Reactive Protein 10.20 H Total Protein Albumin Prealbumin TSH Crossmatch 08/31/16 08/31/16 08/31/16 04:20 04:20 04:20 WBC 18.3 H RBC 3.19 L Hgb 8.8 L Hct 30.0 L MCV MCH 27 L MCHC 29 L RDW 23.9 H Plt Count Seg Neutrophils % Seg Neuts % (Manual) Nucleated RBC % Seg Neutrophils # Seg Neutrophils # Man PT 16.8 H INR 1.37 H POC ABG pH POC ABG pCO2 POC ABG pO2 Sodium 136 L Potassium Chloride Carbon Dioxide 19 L BUN Creatinine 1.5 H Glucose 125 H POC Glucose Lactic Acid Calcium 7.0 L Magnesium Total Bilirubin 1.50 H AST 131 H ALT Alkaline Phosphatase 431 H Ammonia Troponin T C-Reactive Protein Total Protein 6.2 L Albumin 1.2 L Prealbumin TSH Crossmatch 08/31/16 08/31/16 08/31/16 04:20 05:22 05:24 WBC RBC Hgb Hct MCV MCH MCHC RDW Plt Count Seg Neutrophils % Seg Neuts % (Manual) Nucleated RBC % Seg Neutrophils # Seg Neutrophils # Man PT INR POC ABG pH POC ABG pCO2 POC ABG pO2 142 H Sodium Potassium Chloride Carbon Dioxide BUN Creatinine Glucose POC Glucose 123 H Lactic Acid Calcium Magnesium Total Bilirubin AST ALT Alkaline Phosphatase Ammonia 70.0 H Troponin T C-Reactive Protein Total Protein Albumin Prealbumin TSH Crossmatch 08/31/16 08/31/16 08/31/16 12:10 15:45 17:38 WBC RBC Hgb Hct MCV MCH MCHC RDW Plt Count Seg Neutrophils % Seg Neuts % (Manual) Nucleated RBC % Seg Neutrophils # Seg Neutrophils # Man PT INR POC ABG pH POC ABG pCO2 POC ABG pO2 Sodium 136 L Potassium Chloride Carbon Dioxide 21 L BUN Creatinine 1.5 H Glucose 160 H POC Glucose 147 H 151 H Lactic Acid Calcium 6.9 L Magnesium Total Bilirubin AST ALT Alkaline Phosphatase Ammonia Troponin T 0.109 H* D C-Reactive Protein Total Protein Albumin Prealbumin TSH Crossmatch 09/01/16 09/01/16 09/01/16 00:09 04:00 04:00 WBC 14.8 H RBC 2.89 L Hgb 7.8 L Hct 27.2 L MCV MCH 27 L MCHC 29 L RDW 24.4 H Plt Count Seg Neutrophils % Seg Neuts % (Manual) Nucleated RBC % Seg Neutrophils # Seg Neutrophils # Man PT 18.2 H INR 1.51 H POC ABG pH POC ABG pCO2 POC ABG pO2 Sodium Potassium Chloride Carbon Dioxide BUN Creatinine Glucose POC Glucose 192 H Lactic Acid Calcium Magnesium Total Bilirubin AST ALT Alkaline Phosphatase Ammonia Troponin T C-Reactive Protein Total Protein Albumin Prealbumin TSH Crossmatch 09/01/16 09/01/16 09/01/16 04:00 05:28 11:28 WBC RBC Hgb Hct MCV MCH MCHC RDW Plt Count Seg Neutrophils % Seg Neuts % (Manual) Nucleated RBC % Seg Neutrophils # Seg Neutrophils # Man PT INR POC ABG pH POC ABG pCO2 POC ABG pO2 Sodium Potassium Chloride Carbon Dioxide 20 L BUN Creatinine 1.6 H Glucose 183 H POC Glucose 189 H 207 H Lactic Acid Calcium 6.9 L Magnesium Total Bilirubin 1.30 H AST 138 H ALT Alkaline Phosphatase 520 H Ammonia Troponin T C-Reactive Protein Total Protein 6.1 L Albumin 1.2 L Prealbumin TSH Crossmatch 09/01/16 09/01/16 09/02/16 16:56 23:49 05:00 WBC RBC Hgb Hct MCV MCH MCHC RDW Plt Count Seg Neutrophils % Seg Neuts % (Manual) Nucleated RBC % Seg Neutrophils # Seg Neutrophils # Man PT 18.0 H INR 1.49 H POC ABG pH POC ABG pCO2 POC ABG pO2 Sodium Potassium Chloride Carbon Dioxide BUN Creatinine Glucose POC Glucose 250 H 307 H Lactic Acid Calcium Magnesium Total Bilirubin AST ALT Alkaline Phosphatase Ammonia Troponin T C-Reactive Protein Total Protein Albumin Prealbumin TSH Crossmatch 09/02/16 09/02/16 09/02/16 05:00 05:00 05:45 WBC 12.3 H RBC 2.57 L Hgb 7.1 L Hct 23.4 L MCV MCH MCHC RDW 23.9 H Plt Count Seg Neutrophils % Seg Neuts % (Manual) 72.0 H Nucleated RBC % 25.0 H Seg Neutrophils # Seg Neutrophils # Man 8.9 H PT INR POC ABG pH POC ABG pCO2 POC ABG pO2 Sodium Potassium Chloride Carbon Dioxide BUN Creatinine 1.4 H Glucose 299 H POC Glucose 327 H Lactic Acid Calcium 7.0 L Magnesium Total Bilirubin AST ALT Alkaline Phosphatase Ammonia Troponin T C-Reactive Protein Total Protein Albumin Prealbumin TSH Crossmatch 09/02/16 09/02/16 09/02/16 12:22 17:22 23:24 WBC RBC Hgb Hct MCV MCH MCHC RDW Plt Count Seg Neutrophils % Seg Neuts % (Manual) Nucleated RBC % Seg Neutrophils # Seg Neutrophils # Man PT INR POC ABG pH POC ABG pCO2 POC ABG pO2 Sodium Potassium Chloride Carbon Dioxide BUN Creatinine Glucose POC Glucose 310 H 358 H 286 H Lactic Acid Calcium Magnesium Total Bilirubin AST ALT Alkaline Phosphatase Ammonia Troponin T C-Reactive Protein Total Protein Albumin Prealbumin TSH Crossmatch 09/03/16 09/03/16 09/03/16 04:10 04:10 04:10 WBC 11.8 H RBC 2.29 L Hgb 6.1 L Hct 21.0 L MCV MCH 27 L MCHC 29 L RDW 24.1 H Plt Count Seg Neutrophils % Seg Neuts % (Manual) Nucleated RBC % Seg Neutrophils # Seg Neutrophils # Man PT 17.6 H INR 1.45 H POC ABG pH POC ABG pCO2 POC ABG pO2 Sodium Potassium Chloride Carbon Dioxide BUN Creatinine 1.4 H Glucose 301 H POC Glucose Lactic Acid Calcium 7.0 L Magnesium Total Bilirubin AST ALT Alkaline Phosphatase Ammonia Troponin T C-Reactive Protein Total Protein Albumin Prealbumin TSH Crossmatch 09/03/16 09/03/16 09/03/16 05:59 11:36 17:42 WBC RBC Hgb Hct MCV MCH MCHC RDW Plt Count Seg Neutrophils % Seg Neuts % (Manual) Nucleated RBC % Seg Neutrophils # Seg Neutrophils # Man PT INR POC ABG pH POC ABG pCO2 POC ABG pO2 Sodium Potassium Chloride Carbon Dioxide BUN Creatinine Glucose POC Glucose 351 H 285 H 259 H Lactic Acid Calcium Magnesium Total Bilirubin AST ALT Alkaline Phosphatase Ammonia Troponin T C-Reactive Protein Total Protein Albumin Prealbumin TSH Crossmatch 09/03/16 09/04/16 09/04/16 23:00 04:27 05:36 WBC RBC Hgb Hct MCV MCH MCHC RDW Plt Count Seg Neutrophils % Seg Neuts % (Manual) Nucleated RBC % Seg Neutrophils # Seg Neutrophils # Man PT INR POC ABG pH 7.544 H POC ABG pCO2 30.8 L POC ABG pO2 78 L Sodium Potassium Chloride Carbon Dioxide BUN Creatinine Glucose POC Glucose 192 H 228 H Lactic Acid Calcium Magnesium Total Bilirubin AST ALT Alkaline Phosphatase Ammonia Troponin T C-Reactive Protein Total Protein Albumin Prealbumin TSH Crossmatch 09/04/16 09/04/16 09/04/16 06:37 06:37 06:39 WBC 21.0 H RBC 2.22 L Hgb 6.0 L Hct 20.1 L MCV MCH 27 L MCHC RDW 24.3 H Plt Count Seg Neutrophils % Seg Neuts % (Manual) Nucleated RBC % Seg Neutrophils # Seg Neutrophils # Man PT 16.8 H INR 1.37 H POC ABG pH POC ABG pCO2 POC ABG pO2 Sodium Potassium Chloride Carbon Dioxide BUN Creatinine 1.4 H Glucose 201 H POC Glucose Lactic Acid Calcium 7.1 L Magnesium Total Bilirubin AST ALT Alkaline Phosphatase Ammonia Troponin T C-Reactive Protein Total Protein Albumin Prealbumin TSH Crossmatch 09/04/16 09/04/16 09/04/16 12:14 15:47 17:41 WBC RBC Hgb Hct MCV MCH MCHC RDW Plt Count Seg Neutrophils % Seg Neuts % (Manual) Nucleated RBC % Seg Neutrophils # Seg Neutrophils # Man PT INR POC ABG pH POC ABG pCO2 POC ABG pO2 Sodium Potassium Chloride Carbon Dioxide BUN Creatinine Glucose POC Glucose 176 H 218 H Lactic Acid Calcium Magnesium Total Bilirubin AST ALT Alkaline Phosphatase Ammonia Troponin T C-Reactive Protein Total Protein Albumin Prealbumin TSH Crossmatch See Detail 09/04/16 09/04/16 09/05/16 21:59 23:48 04:30 WBC RBC Hgb Hct MCV MCH MCHC RDW Plt Count Seg Neutrophils % Seg Neuts % (Manual) Nucleated RBC % Seg Neutrophils # Seg Neutrophils # Man PT 17.2 H INR 1.41 H POC ABG pH POC ABG pCO2 POC ABG pO2 Sodium Potassium Chloride Carbon Dioxide BUN Creatinine Glucose POC Glucose 170 H 121 H Lactic Acid Calcium Magnesium Total Bilirubin AST ALT Alkaline Phosphatase Ammonia Troponin T C-Reactive Protein Total Protein Albumin Prealbumin TSH Crossmatch 09/05/16 09/05/16 09/05/16 04:30 04:30 05:09 WBC 31.9 H RBC 3.11 L Hgb 8.5 L Hct 28.3 L D MCV MCH 27 L MCHC RDW 21.0 H Plt Count Seg Neutrophils % Seg Neuts % (Manual) Nucleated RBC % Seg Neutrophils # Seg Neutrophils # Man PT INR POC ABG pH 7.226 L POC ABG pCO2 61.6 H POC ABG pO2 68 L Sodium 134 L Potassium 5.5 H Chloride 96.6 L Carbon Dioxide BUN 23 H Creatinine 1.6 H Glucose 116 H POC Glucose Lactic Acid Calcium 7.1 L Magnesium Total Bilirubin AST ALT Alkaline Phosphatase Ammonia Troponin T C-Reactive Protein Total Protein Albumin Prealbumin TSH Crossmatch 09/05/16 09/05/16 09/05/16 05:33 12:08 17:32 WBC RBC Hgb Hct MCV MCH MCHC RDW Plt Count Seg Neutrophils % Seg Neuts % (Manual) Nucleated RBC % Seg Neutrophils # Seg Neutrophils # Man PT INR POC ABG pH POC ABG pCO2 POC ABG pO2 Sodium Potassium Chloride Carbon Dioxide BUN Creatinine Glucose POC Glucose 114 H 147 H 174 H Lactic Acid Calcium Magnesium Total Bilirubin AST ALT Alkaline Phosphatase Ammonia Troponin T C-Reactive Protein Total Protein Albumin Prealbumin TSH Crossmatch 09/06/16 09/06/16 09/06/16 03:30 03:30 03:30 WBC 25.4 H RBC 2.57 L Hgb 7.2 L Hct 22.8 L MCV MCH MCHC RDW 20.9 H Plt Count 138 L Seg Neutrophils % Seg Neuts % (Manual) Nucleated RBC % Seg Neutrophils # Seg Neutrophils # Man PT 16.4 H INR 1.33 H POC ABG pH POC ABG pCO2 POC ABG pO2 Sodium Potassium Chloride Carbon Dioxide BUN 36 H Creatinine 1.9 H Glucose POC Glucose Lactic Acid Calcium 7.2 L Magnesium Total Bilirubin AST ALT Alkaline Phosphatase Ammonia Troponin T C-Reactive Protein Total Protein Albumin Prealbumin TSH Crossmatch 09/06/16 09/06/16 09/06/16 11:07 12:03 14:44 WBC RBC Hgb Hct MCV MCH MCHC RDW Plt Count Seg Neutrophils % Seg Neuts % (Manual) Nucleated RBC % Seg Neutrophils # Seg Neutrophils # Man PT INR POC ABG pH POC ABG pCO2 POC ABG pO2 Sodium Potassium Chloride Carbon Dioxide BUN Creatinine Glucose POC Glucose 61 L 55 L Lactic Acid Calcium Magnesium Total Bilirubin AST ALT Alkaline Phosphatase Ammonia Troponin T 0.080 H C-Reactive Protein Total Protein Albumin Prealbumin TSH Crossmatch 09/06/16 09/06/16 09/07/16 21:05 23:53 03:36 WBC RBC Hgb Hct MCV MCH MCHC RDW Plt Count Seg Neutrophils % Seg Neuts % (Manual) Nucleated RBC % Seg Neutrophils # Seg Neutrophils # Man PT INR POC ABG pH POC ABG pCO2 POC ABG pO2 Sodium Potassium Chloride Carbon Dioxide BUN Creatinine Glucose POC Glucose 140 H 178 H 243 H Lactic Acid Calcium Magnesium Total Bilirubin AST ALT Alkaline Phosphatase Ammonia Troponin T C-Reactive Protein Total Protein Albumin Prealbumin TSH Crossmatch 09/07/16 09/07/16 09/07/16 03:42 03:42 05:04 WBC 17.3 H RBC 2.69 L Hgb 7.6 L Hct 23.8 L MCV MCH MCHC RDW 20.5 H Plt Count 137 L Seg Neutrophils % Seg Neuts % (Manual) Nucleated RBC % Seg Neutrophils # Seg Neutrophils # Man PT INR POC ABG pH POC ABG pCO2 POC ABG pO2 Sodium Potassium 3.3 L Chloride Carbon Dioxide BUN 38 H Creatinine 1.6 H Glucose 201 H POC Glucose 241 H Lactic Acid Calcium 7.4 L Magnesium Total Bilirubin AST ALT Alkaline Phosphatase Ammonia Troponin T C-Reactive Protein Total Protein Albumin Prealbumin TSH Crossmatch 09/07/16 09/07/16 09/07/16 11:46 17:41 23:18 WBC RBC Hgb Hct MCV MCH MCHC RDW Plt Count Seg Neutrophils % Seg Neuts % (Manual) Nucleated RBC % Seg Neutrophils # Seg Neutrophils # Man PT INR POC ABG pH POC ABG pCO2 POC ABG pO2 Sodium Potassium Chloride Carbon Dioxide BUN Creatinine Glucose POC Glucose 313 H 227 H 116 H Lactic Acid Calcium Magnesium Total Bilirubin AST ALT Alkaline Phosphatase Ammonia Troponin T C-Reactive Protein Total Protein Albumin Prealbumin TSH Crossmatch 09/08/16 09/08/16 09/08/16 04:00 04:00 05:15 WBC 18.4 H RBC 2.43 L Hgb 6.9 L Hct 21.5 L MCV MCH MCHC RDW 20.5 H Plt Count 119 L Seg Neutrophils % Seg Neuts % (Manual) Nucleated RBC % Seg Neutrophils # Seg Neutrophils # Man PT INR POC ABG pH 7.458 H POC ABG pCO2 POC ABG pO2 177 H Sodium Potassium 3.5 L Chloride Carbon Dioxide BUN 37 H Creatinine 1.3 H Glucose POC Glucose Lactic Acid Calcium 7.1 L Magnesium Total Bilirubin AST ALT Alkaline Phosphatase Ammonia Troponin T C-Reactive Protein Total Protein Albumin Prealbumin TSH Crossmatch 09/08/16 09/08/16 09/08/16 11:00 15:58 23:16 WBC RBC Hgb Hct MCV MCH MCHC RDW Plt Count Seg Neutrophils % Seg Neuts % (Manual) Nucleated RBC % Seg Neutrophils # Seg Neutrophils # Man PT INR POC ABG pH POC ABG pCO2 POC ABG pO2 113 H Sodium Potassium Chloride Carbon Dioxide BUN Creatinine Glucose POC Glucose 40 L Lactic Acid Calcium Magnesium Total Bilirubin AST ALT Alkaline Phosphatase Ammonia Troponin T C-Reactive Protein Total Protein Albumin Prealbumin TSH Crossmatch See Detail 09/09/16 09/09/16 09/09/16 05:02 12:33 18:10 WBC RBC Hgb Hct MCV MCH MCHC RDW Plt Count Seg Neutrophils % Seg Neuts % (Manual) Nucleated RBC % Seg Neutrophils # Seg Neutrophils # Man PT INR POC ABG pH 7.454 H POC ABG pCO2 POC ABG pO2 75 L Sodium Potassium Chloride Carbon Dioxide BUN Creatinine Glucose POC Glucose 59 L Lactic Acid Calcium Magnesium Total Bilirubin AST ALT Alkaline Phosphatase Ammonia Troponin T C-Reactive Protein Total Protein Albumin Prealbumin TSH 5.220 H Crossmatch 09/09/16 09/09/16 09/09/16 18:10 18:10 18:42 WBC 17.0 H RBC 2.90 L Hgb 8.5 L Hct 26.1 L MCV MCH MCHC RDW 17.9 H Plt Count 126 L Seg Neutrophils % Seg Neuts % (Manual) Nucleated RBC % Seg Neutrophils # Seg Neutrophils # Man PT INR POC ABG pH POC ABG pCO2 POC ABG pO2 Sodium Potassium Chloride Carbon Dioxide BUN 36 H Creatinine Glucose 133 H POC Glucose 148 H Lactic Acid Calcium 6.9 L Magnesium Total Bilirubin AST 253 H ALT 184 H Alkaline Phosphatase 729 H Ammonia Troponin T C-Reactive Protein Total Protein 5.1 L Albumin 1.7 L Prealbumin TSH Crossmatch 09/09/16 09/10/16 09/10/16 23:22 05:10 11:43 WBC RBC Hgb Hct MCV MCH MCHC RDW Plt Count Seg Neutrophils % Seg Neuts % (Manual) Nucleated RBC % Seg Neutrophils # Seg Neutrophils # Man PT INR POC ABG pH POC ABG pCO2 POC ABG pO2 Sodium Potassium Chloride Carbon Dioxide BUN 35 H Creatinine Glucose 240 H POC Glucose 170 H 268 H Lactic Acid Calcium 6.8 L Magnesium Total Bilirubin AST 226 H ALT 171 H Alkaline Phosphatase 710 H Ammonia Troponin T C-Reactive Protein Total Protein 5.2 L Albumin 1.7 L Prealbumin TSH Crossmatch 09/10/16 09/11/16 09/11/16 17:51 01:07 05:00 WBC RBC Hgb Hct MCV MCH MCHC RDW Plt Count Seg Neutrophils % Seg Neuts % (Manual) Nucleated RBC % Seg Neutrophils # Seg Neutrophils # Man PT INR POC ABG pH POC ABG pCO2 POC ABG pO2 Sodium Potassium 2.9 L* Chloride Carbon Dioxide BUN 35 H Creatinine Glucose 274 H POC Glucose 334 H 223 H Lactic Acid Calcium 6.9 L Magnesium Total Bilirubin AST 167 H ALT 145 H Alkaline Phosphatase 631 H Ammonia Troponin T C-Reactive Protein Total Protein 5.1 L Albumin 1.6 L Prealbumin TSH Crossmatch 09/11/16 09/11/16 09/11/16 05:01 12:16 17:12 WBC RBC Hgb Hct MCV MCH MCHC RDW Plt Count Seg Neutrophils % Seg Neuts % (Manual) Nucleated RBC % Seg Neutrophils # Seg Neutrophils # Man PT INR POC ABG pH POC ABG pCO2 POC ABG pO2 Sodium Potassium Chloride Carbon Dioxide BUN Creatinine Glucose POC Glucose 305 H 219 H 171 H Lactic Acid Calcium Magnesium Total Bilirubin AST ALT Alkaline Phosphatase Ammonia Troponin T C-Reactive Protein Total Protein Albumin Prealbumin TSH Crossmatch 09/11/16 09/12/16 09/12/16 23:35 03:33 05:00 WBC 12.9 H RBC 2.81 L Hgb 8.2 L Hct 25.4 L MCV MCH MCHC RDW 17.9 H Plt Count Seg Neutrophils % Seg Neuts % (Manual) Nucleated RBC % Seg Neutrophils # Seg Neutrophils # Man PT INR POC ABG pH POC ABG pCO2 POC ABG pO2 Sodium Potassium Chloride Carbon Dioxide BUN Creatinine Glucose POC Glucose 216 H 183 H Lactic Acid Calcium Magnesium Total Bilirubin AST ALT Alkaline Phosphatase Ammonia Troponin T C-Reactive Protein Total Protein Albumin Prealbumin TSH Crossmatch 0609/12/16 09/12/16 05:00 15:15 18:30 WBC RBC Hgb Hct MCV MCH MCHC RDW Plt Count Seg Neutrophils % Seg Neuts % (Manual) Nucleated RBC % Seg Neutrophils # Seg Neutrophils # Man PT INR POC ABG pH POC ABG pCO2 POC ABG pO2 Sodium Potassium 3.0 L 3.4 L Chloride Carbon Dioxide BUN 33 H Creatinine 0.5 L Glucose POC Glucose 215 H Lactic Acid Calcium 7.0 L Magnesium Total Bilirubin AST ALT Alkaline Phosphatase Ammonia Troponin T C-Reactive Protein Total Protein Albumin Prealbumin TSH Crossmatch 09/12/16 09/13/16 09/13/16 23:17 05:50 05:50 WBC RBC 2.93 L Hgb 8.8 L Hct 26.7 L MCV MCH MCHC RDW 18.0 H Plt Count Seg Neutrophils % Seg Neuts % (Manual) Nucleated RBC % Seg Neutrophils # Seg Neutrophils # Man PT INR POC ABG pH POC ABG pCO2 POC ABG pO2 Sodium Potassium 2.6 L* D Chloride Carbon Dioxide BUN 29 H Creatinine 0.5 L Glucose 106 H POC Glucose 155 H Lactic Acid Calcium 7.3 L Magnesium Total Bilirubin AST ALT Alkaline Phosphatase Ammonia Troponin T C-Reactive Protein Total Protein Albumin Prealbumin TSH Crossmatch 09/13/16 09/13/16 09/13/16 05:53 11:43 15:07 WBC RBC Hgb Hct MCV MCH MCHC RDW Plt Count Seg Neutrophils % Seg Neuts % (Manual) Nucleated RBC % Seg Neutrophils # Seg Neutrophils # Man PT INR POC ABG pH POC ABG pCO2 POC ABG pO2 Sodium Potassium 2.8 L* Chloride Carbon Dioxide BUN Creatinine Glucose POC Glucose 119 H 129 H Lactic Acid Calcium Magnesium Total Bilirubin AST ALT Alkaline Phosphatase Ammonia Troponin T C-Reactive Protein Total Protein Albumin Prealbumin TSH Crossmatch 09/13/16 09/13/16 09/14/16 17:39 23:30 05:34 WBC RBC Hgb Hct MCV MCH MCHC RDW Plt Count Seg Neutrophils % Seg Neuts % (Manual) Nucleated RBC % Seg Neutrophils # Seg Neutrophils # Man PT INR POC ABG pH POC ABG pCO2 POC ABG pO2 Sodium Potassium Chloride Carbon Dioxide BUN Creatinine Glucose POC Glucose 144 H 196 H 175 H Lactic Acid Calcium Magnesium Total Bilirubin AST ALT Alkaline Phosphatase Ammonia Troponin T C-Reactive Protein Total Protein Albumin Prealbumin TSH Crossmatch 06/08/2609/14/16 09/14/16 06:24 06:24 12:41 WBC RBC 2.82 L Hgb 8.4 L Hct 25.7 L MCV MCH MCHC RDW 18.0 H Plt Count Seg Neutrophils % Seg Neuts % (Manual) Nucleated RBC % Seg Neutrophils # Seg Neutrophils # Man PT INR POC ABG pH POC ABG pCO2 POC ABG pO2 Sodium Potassium 2.9 L* Chloride 107.3 H Carbon Dioxide BUN 26 H Creatinine 0.4 L Glucose 169 H POC Glucose 184 H Lactic Acid Calcium 7.5 L Magnesium Total Bilirubin AST ALT Alkaline Phosphatase Ammonia Troponin T C-Reactive Protein Total Protein Albumin Prealbumin TSH Crossmatch 09/14/16 09/14/16 09/14/16 14:50 17:57 23:34 WBC RBC Hgb Hct MCV MCH MCHC RDW Plt Count Seg Neutrophils % Seg Neuts % (Manual) Nucleated RBC % Seg Neutrophils # Seg Neutrophils # Man PT INR POC ABG pH POC ABG pCO2 POC ABG pO2 Sodium Potassium 3.3 L Chloride Carbon Dioxide BUN Creatinine Glucose POC Glucose 191 H 178 H Lactic Acid Calcium Magnesium Total Bilirubin AST ALT Alkaline Phosphatase Ammonia Troponin T C-Reactive Protein Total Protein Albumin Prealbumin TSH Crossmatch 09/15/16 09/15/16 09/15/16 05:02 07:57 07:57 WBC RBC 3.04 L Hgb 9.2 L Hct 28.2 L MCV MCH MCHC RDW 18.8 H Plt Count Seg Neutrophils % Seg Neuts % (Manual) Nucleated RBC % Seg Neutrophils # Seg Neutrophils # Man PT INR POC ABG pH POC ABG pCO2 POC ABG pO2 Sodium Potassium Chloride 107.2 H Carbon Dioxide BUN 26 H Creatinine 0.4 L Glucose 160 H POC Glucose 192 H Lactic Acid Calcium 7.7 L Magnesium Total Bilirubin AST ALT Alkaline Phosphatase Ammonia Troponin T C-Reactive Protein Total Protein Albumin Prealbumin TSH Crossmatch 09/15/16 09/15/16 09/15/16 11:23 17:51 23:45 WBC RBC Hgb Hct MCV MCH MCHC RDW Plt Count Seg Neutrophils % Seg Neuts % (Manual) Nucleated RBC % Seg Neutrophils # Seg Neutrophils # Man PT INR POC ABG pH POC ABG pCO2 POC ABG pO2 Sodium Potassium Chloride Carbon Dioxide BUN Creatinine Glucose POC Glucose 232 H 240 H 251 H Lactic Acid Calcium Magnesium Total Bilirubin AST ALT Alkaline Phosphatase Ammonia Troponin T C-Reactive Protein Total Protein Albumin Prealbumin TSH Crossmatch 09/16/16 09/16/16 09/16/16 04:55 04:55 05:38 WBC RBC 2.84 L Hgb 8.6 L Hct 26.2 L MCV MCH MCHC RDW 18.8 H Plt Count Seg Neutrophils % Seg Neuts % (Manual) Nucleated RBC % Seg Neutrophils # Seg Neutrophils # Man PT INR POC ABG pH POC ABG pCO2 POC ABG pO2 Sodium Potassium 3.1 L Chloride 107.6 H Carbon Dioxide BUN 25 H Creatinine 0.3 L Glucose 134 H POC Glucose 157 H Lactic Acid Calcium 7.6 L Magnesium Total Bilirubin AST ALT Alkaline Phosphatase Ammonia Troponin T C-Reactive Protein Total Protein Albumin Prealbumin TSH Crossmatch 09/16/16 09/16/16 09/16/16 11:53 17:56 23:54 WBC RBC Hgb Hct MCV MCH MCHC RDW Plt Count Seg Neutrophils % Seg Neuts % (Manual) Nucleated RBC % Seg Neutrophils # Seg Neutrophils # Man PT INR POC ABG pH POC ABG pCO2 POC ABG pO2 Sodium Potassium Chloride Carbon Dioxide BUN Creatinine Glucose POC Glucose 137 H 138 H 179 H Lactic Acid Calcium Magnesium Total Bilirubin AST ALT Alkaline Phosphatase Ammonia Troponin T C-Reactive Protein Total Protein Albumin Prealbumin TSH Crossmatch 09/17/16 09/17/16 09/17/16 05:00 05:00 05:28 WBC RBC 2.77 L Hgb 8.2 L Hct 25.9 L MCV MCH MCHC RDW 19.1 H Plt Count Seg Neutrophils % Seg Neuts % (Manual) Nucleated RBC % Seg Neutrophils # Seg Neutrophils # Man PT INR POC ABG pH POC ABG pCO2 POC ABG pO2 Sodium Potassium 3.5 L Chloride 108.4 H Carbon Dioxide BUN 29 H Creatinine 0.3 L Glucose 117 H POC Glucose 142 H Lactic Acid Calcium 7.4 L Magnesium Total Bilirubin AST ALT Alkaline Phosphatase Ammonia Troponin T C-Reactive Protein Total Protein Albumin Prealbumin TSH Crossmatch 09/17/16 09/17/16 09/18/16 18:07 23:31 06:29 WBC RBC Hgb Hct MCV MCH MCHC RDW Plt Count Seg Neutrophils % Seg Neuts % (Manual) Nucleated RBC % Seg Neutrophils # Seg Neutrophils # Man PT INR POC ABG pH POC ABG pCO2 POC ABG pO2 Sodium Potassium Chloride Carbon Dioxide BUN Creatinine Glucose POC Glucose 173 H 240 H 282 H Lactic Acid Calcium Magnesium Total Bilirubin AST ALT Alkaline Phosphatase Ammonia Troponin T C-Reactive Protein Total Protein Albumin Prealbumin TSH Crossmatch 09/18/16 09/18/16 09/18/16 06:30 12:21 17:55 WBC RBC Hgb Hct MCV MCH MCHC RDW Plt Count Seg Neutrophils % Seg Neuts % (Manual) Nucleated RBC % Seg Neutrophils # Seg Neutrophils # Man PT INR POC ABG pH POC ABG pCO2 POC ABG pO2 Sodium 148 H Potassium Chloride 110.7 H Carbon Dioxide BUN 30 H Creatinine 0.4 L Glucose 249 H POC Glucose 248 H 255 H Lactic Acid Calcium 7.4 L Magnesium 1.60 L Total Bilirubin AST ALT Alkaline Phosphatase Ammonia Troponin T C-Reactive Protein Total Protein Albumin Prealbumin TSH Crossmatch 09/19/16 09/19/16 09/19/16 00:09 04:45 05:11 WBC RBC Hgb Hct MCV MCH MCHC RDW Plt Count Seg Neutrophils % Seg Neuts % (Manual) Nucleated RBC % Seg Neutrophils # Seg Neutrophils # Man PT INR POC ABG pH POC ABG pCO2 POC ABG pO2 Sodium 146 H Potassium Chloride 110.8 H Carbon Dioxide BUN 34 H Creatinine 0.4 L Glucose 278 H POC Glucose 324 H 278 H Lactic Acid Calcium 7.3 L Magnesium Total Bilirubin AST ALT Alkaline Phosphatase Ammonia Troponin T C-Reactive Protein Total Protein Albumin Prealbumin TSH Crossmatch 09/19/16 09/19/16 09/19/16 11:12 12:09 17:10 WBC RBC Hgb Hct MCV MCH MCHC RDW Plt Count Seg Neutrophils % Seg Neuts % (Manual) Nucleated RBC % Seg Neutrophils # Seg Neutrophils # Man PT INR POC ABG pH POC ABG pCO2 POC ABG pO2 Sodium Potassium Chloride Carbon Dioxide BUN Creatinine Glucose POC Glucose 306 H 225 H 329 H Lactic Acid Calcium Magnesium Total Bilirubin AST ALT Alkaline Phosphatase Ammonia Troponin T C-Reactive Protein Total Protein Albumin Prealbumin TSH Crossmatch 09/19/16 09/20/16 09/20/16 23:34 04:52 05:00 WBC RBC Hgb Hct MCV MCH MCHC RDW Plt Count Seg Neutrophils % Seg Neuts % (Manual) Nucleated RBC % Seg Neutrophils # Seg Neutrophils # Man PT INR POC ABG pH POC ABG pCO2 POC ABG pO2 Sodium Potassium Chloride 108.6 H Carbon Dioxide BUN 35 H Creatinine 0.4 L Glucose 370 H POC Glucose 376 H 374 H Lactic Acid Calcium 7.3 L Magnesium Total Bilirubin AST ALT Alkaline Phosphatase Ammonia Troponin T C-Reactive Protein Total Protein Albumin Prealbumin TSH Crossmatch 09/20/16 09/20/16 09/20/16 11:18 17:39 23:49 WBC RBC Hgb Hct MCV MCH MCHC RDW Plt Count Seg Neutrophils % Seg Neuts % (Manual) Nucleated RBC % Seg Neutrophils # Seg Neutrophils # Man PT INR POC ABG pH POC ABG pCO2 POC ABG pO2 Sodium Potassium Chloride Carbon Dioxide BUN Creatinine Glucose POC Glucose 342 H 416 H 440 H Lactic Acid Calcium Magnesium Total Bilirubin AST ALT Alkaline Phosphatase Ammonia Troponin T C-Reactive Protein Total Protein Albumin Prealbumin TSH Crossmatch 09/21/16 09/21/16 09/21/16 04:58 05:15 05:15 WBC RBC 1.48 L Hgb 4.6 L* Hct 14.9 L* MCV 100 H MCH MCHC RDW 25.4 H Plt Count Seg Neutrophils % Seg Neuts % (Manual) Nucleated RBC % Seg Neutrophils # Seg Neutrophils # Man PT INR POC ABG pH POC ABG pCO2 POC ABG pO2 Sodium Potassium Chloride 107.5 H Carbon Dioxide 20 L BUN 45 H Creatinine 0.6 L Glucose 490 H POC Glucose > 500 H Lactic Acid Calcium 7.0 L Magnesium Total Bilirubin AST ALT Alkaline Phosphatase Ammonia Troponin T C-Reactive Protein Total Protein Albumin Prealbumin TSH Crossmatch 09/21/16 09/21/16 09/21/16 08:20 09:17 12:09 WBC RBC Hgb Hct MCV MCH MCHC RDW Plt Count Seg Neutrophils % Seg Neuts % (Manual) Nucleated RBC % Seg Neutrophils # Seg Neutrophils # Man PT INR POC ABG pH 7.464 H POC ABG pCO2 29.3 L POC ABG pO2 198 H Sodium Potassium Chloride Carbon Dioxide BUN Creatinine Glucose POC Glucose 248 H Lactic Acid Calcium Magnesium Total Bilirubin AST ALT Alkaline Phosphatase Ammonia Troponin T C-Reactive Protein Total Protein Albumin Prealbumin TSH Crossmatch See Detail 09/21/16 09/21/16 09/21/16 15:21 17:36 18:49 WBC RBC Hgb Hct MCV MCH MCHC RDW Plt Count Seg Neutrophils % Seg Neuts % (Manual) Nucleated RBC % Seg Neutrophils # Seg Neutrophils # Man PT INR POC ABG pH POC ABG pCO2 POC ABG pO2 Sodium Potassium Chloride Carbon Dioxide BUN Creatinine Glucose POC Glucose 403 H 437 H 482 H Lactic Acid Calcium Magnesium Total Bilirubin AST ALT Alkaline Phosphatase Ammonia Troponin T C-Reactive Protein Total Protein Albumin Prealbumin TSH Crossmatch 09/21/16 09/22/16 09/22/16 23:29 00:00 01:29 WBC 14.8 H RBC 2.94 L Hgb 9.1 L D Hct 27.5 L D MCV MCH MCHC RDW 16.7 H Plt Count Seg Neutrophils % Seg Neuts % (Manual) Nucleated RBC % Seg Neutrophils # Seg Neutrophils # Man PT INR POC ABG pH POC ABG pCO2 POC ABG pO2 Sodium Potassium Chloride Carbon Dioxide BUN Creatinine Glucose POC Glucose 311 H 288 H Lactic Acid Calcium Magnesium Total Bilirubin AST ALT Alkaline Phosphatase Ammonia Troponin T C-Reactive Protein Total Protein Albumin Prealbumin TSH Crossmatch 09/22/16 09/22/16 09/22/16 02:29 03:12 03:26 WBC RBC Hgb Hct MCV MCH MCHC RDW Plt Count Seg Neutrophils % Seg Neuts % (Manual) Nucleated RBC % Seg Neutrophils # Seg Neutrophils # Man PT INR POC ABG pH 7.460 H POC ABG pCO2 29.9 L POC ABG pO2 112 H Sodium Potassium Chloride Carbon Dioxide BUN Creatinine Glucose POC Glucose 261 H 239 H Lactic Acid Calcium Magnesium Total Bilirubin AST ALT Alkaline Phosphatase Ammonia Troponin T C-Reactive Protein Total Protein Albumin Prealbumin TSH Crossmatch 09/22/16 09/22/16 09/22/16 05:35 06:40 06:40 WBC 13.5 H RBC 3.18 L Hgb 9.5 L Hct 28.8 L MCV MCH MCHC RDW 16.2 H Plt Count Seg Neutrophils % Seg Neuts % (Manual) Nucleated RBC % Seg Neutrophils # Seg Neutrophils # Man PT INR POC ABG pH POC ABG pCO2 POC ABG pO2 Sodium 147 H Potassium 3.2 L D Chloride 112.3 H Carbon Dioxide BUN 49 H Creatinine 0.6 L Glucose 102 H POC Glucose 181 H Lactic Acid Calcium 7.5 L Magnesium Total Bilirubin AST ALT Alkaline Phosphatase Ammonia Troponin T C-Reactive Protein Total Protein Albumin Prealbumin TSH Crossmatch 09/22/16 09/22/16 09/22/16 07:16 18:03 20:05 WBC RBC Hgb Hct MCV MCH MCHC RDW Plt Count Seg Neutrophils % Seg Neuts % (Manual) Nucleated RBC % Seg Neutrophils # Seg Neutrophils # Man PT INR POC ABG pH POC ABG pCO2 POC ABG pO2 Sodium Potassium Chloride Carbon Dioxide BUN Creatinine Glucose POC Glucose 152 H 115 H 107 H Lactic Acid Calcium Magnesium Total Bilirubin AST ALT Alkaline Phosphatase Ammonia Troponin T C-Reactive Protein Total Protein Albumin Prealbumin TSH Crossmatch 09/22/16 09/22/16 09/23/16 21:00 23:55 02:02 WBC 13.8 H RBC 3.04 L Hgb 9.2 L Hct 28.0 L MCV MCH MCHC RDW 16.2 H Plt Count Seg Neutrophils % Seg Neuts % (Manual) Nucleated RBC % Seg Neutrophils # Seg Neutrophils # Man PT INR POC ABG pH POC ABG pCO2 POC ABG pO2 Sodium Potassium Chloride Carbon Dioxide BUN Creatinine Glucose POC Glucose 133 H 110 H Lactic Acid Calcium Magnesium Total Bilirubin AST ALT Alkaline Phosphatase Ammonia Troponin T C-Reactive Protein Total Protein Albumin Prealbumin TSH Crossmatch 09/23/16 09/23/16 09/23/16 04:45 04:45 05:36 WBC 13.6 H RBC 2.86 L Hgb 8.6 L Hct 26.4 L MCV MCH MCHC RDW 17.1 H Plt Count Seg Neutrophils % Seg Neuts % (Manual) Nucleated RBC % Seg Neutrophils # Seg Neutrophils # Man PT INR POC ABG pH POC ABG pCO2 POC ABG pO2 Sodium Potassium Chloride 109.2 H Carbon Dioxide 21 L BUN 43 H Creatinine 0.5 L Glucose 152 H POC Glucose 133 H Lactic Acid Calcium 7.7 L Magnesium Total Bilirubin AST ALT Alkaline Phosphatase Ammonia Troponin T C-Reactive Protein Total Protein Albumin Prealbumin TSH Crossmatch 09/23/16 09/23/16 09/23/16 07:42 11:55 13:26 WBC RBC Hgb Hct MCV MCH MCHC RDW Plt Count Seg Neutrophils % Seg Neuts % (Manual) Nucleated RBC % Seg Neutrophils # Seg Neutrophils # Man PT INR POC ABG pH POC ABG pCO2 POC ABG pO2 Sodium Potassium Chloride Carbon Dioxide BUN Creatinine Glucose POC Glucose 175 H 170 H 195 H Lactic Acid Calcium Magnesium Total Bilirubin AST ALT Alkaline Phosphatase Ammonia Troponin T C-Reactive Protein Total Protein Albumin Prealbumin TSH Crossmatch 09/23/16 09/23/16 09/24/16 17:37 21:54 02:56 WBC RBC Hgb Hct MCV MCH MCHC RDW Plt Count Seg Neutrophils % Seg Neuts % (Manual) Nucleated RBC % Seg Neutrophils # Seg Neutrophils # Man PT INR POC ABG pH POC ABG pCO2 POC ABG pO2 Sodium Potassium Chloride Carbon Dioxide BUN Creatinine Glucose POC Glucose 182 H 184 H 187 H Lactic Acid Calcium Magnesium Total Bilirubin AST ALT Alkaline Phosphatase Ammonia Troponin T C-Reactive Protein Total Protein Albumin Prealbumin TSH Crossmatch 09/24/16 09/24/16 09/24/16 05:00 05:00 05:22 WBC RBC 2.82 L Hgb 8.8 L Hct 27.0 L MCV MCH MCHC RDW 17.2 H Plt Count Seg Neutrophils % Seg Neuts % (Manual) Nucleated RBC % Seg Neutrophils # Seg Neutrophils # Man PT INR POC ABG pH POC ABG pCO2 POC ABG pO2 Sodium 148 H Potassium Chloride 115.0 H Carbon Dioxide 21 L BUN 38 H Creatinine 0.6 L Glucose 163 H POC Glucose 194 H Lactic Acid Calcium 7.9 L Magnesium Total Bilirubin AST ALT Alkaline Phosphatase Ammonia Troponin T C-Reactive Protein Total Protein Albumin Prealbumin TSH Crossmatch 09/24/16 09/24/16 09/24/16 11:02 13:55 17:37 WBC RBC Hgb Hct MCV MCH MCHC RDW Plt Count Seg Neutrophils % Seg Neuts % (Manual) Nucleated RBC % Seg Neutrophils # Seg Neutrophils # Man PT INR POC ABG pH POC ABG pCO2 POC ABG pO2 Sodium Potassium Chloride Carbon Dioxide BUN Creatinine Glucose POC Glucose 210 H 182 H 169 H Lactic Acid Calcium Magnesium Total Bilirubin AST ALT Alkaline Phosphatase Ammonia Troponin T C-Reactive Protein Total Protein Albumin Prealbumin TSH Crossmatch 09/25/16 09/25/16 09/25/16 02:15 05:14 09:39 WBC RBC Hgb Hct MCV MCH MCHC RDW Plt Count Seg Neutrophils % Seg Neuts % (Manual) Nucleated RBC % Seg Neutrophils # Seg Neutrophils # Man PT INR POC ABG pH POC ABG pCO2 POC ABG pO2 Sodium Potassium Chloride Carbon Dioxide BUN Creatinine Glucose POC Glucose 139 H 151 H 184 H Lactic Acid Calcium Magnesium Total Bilirubin AST ALT Alkaline Phosphatase Ammonia Troponin T C-Reactive Protein Total Protein Albumin Prealbumin TSH Crossmatch 09/25/16 09/25/16 09/25/16 09:48 09:48 13:47 WBC RBC 2.76 L Hgb 8.7 L Hct 26.2 L MCV MCH MCHC RDW 17.3 H Plt Count Seg Neutrophils % Seg Neuts % (Manual) Nucleated RBC % Seg Neutrophils # Seg Neutrophils # Man PT INR POC ABG pH POC ABG pCO2 POC ABG pO2 Sodium 150 H Potassium Chloride 115.6 H Carbon Dioxide BUN 34 H Creatinine 0.4 L Glucose 168 H POC Glucose 167 H Lactic Acid Calcium 7.9 L Magnesium Total Bilirubin AST ALT Alkaline Phosphatase Ammonia Troponin T C-Reactive Protein Total Protein Albumin Prealbumin TSH Crossmatch 09/25/16 09/25/16 09/26/16 17:57 21:44 00:05 WBC RBC Hgb Hct MCV MCH MCHC RDW Plt Count Seg Neutrophils % Seg Neuts % (Manual) Nucleated RBC % Seg Neutrophils # Seg Neutrophils # Man PT INR POC ABG pH POC ABG pCO2 POC ABG pO2 Sodium Potassium Chloride Carbon Dioxide BUN Creatinine Glucose POC Glucose 206 H 188 H 188 H Lactic Acid Calcium Magnesium Total Bilirubin AST ALT Alkaline Phosphatase Ammonia Troponin T C-Reactive Protein Total Protein Albumin Prealbumin TSH Crossmatch 09/26/16 09/26/16 09/26/16 01:29 03:46 03:46 WBC RBC 2.76 L Hgb 8.6 L Hct 26.2 L MCV MCH MCHC RDW 18.2 H Plt Count Seg Neutrophils % Seg Neuts % (Manual) Nucleated RBC % Seg Neutrophils # Seg Neutrophils # Man PT INR POC ABG pH POC ABG pCO2 POC ABG pO2 Sodium 147 H Potassium Chloride 114.1 H Carbon Dioxide BUN 28 H Creatinine 0.4 L Glucose 172 H POC Glucose 198 H Lactic Acid Calcium 7.6 L Magnesium Total Bilirubin AST ALT Alkaline Phosphatase Ammonia Troponin T C-Reactive Protein Total Protein Albumin Prealbumin TSH Crossmatch 09/26/16 09/26/16 09/26/16 08:08 12:39 16:56 WBC RBC Hgb Hct MCV MCH MCHC RDW Plt Count Seg Neutrophils % Seg Neuts % (Manual) Nucleated RBC % Seg Neutrophils # Seg Neutrophils # Man PT INR POC ABG pH POC ABG pCO2 POC ABG pO2 Sodium Potassium Chloride Carbon Dioxide BUN Creatinine Glucose POC Glucose 161 H 176 H 128 H Lactic Acid Calcium Magnesium Total Bilirubin AST ALT Alkaline Phosphatase Ammonia Troponin T C-Reactive Protein Total Protein Albumin Prealbumin TSH Crossmatch 09/26/16 09/27/16 09/27/16 21:33 06:31 07:23 WBC RBC Hgb Hct MCV MCH MCHC RDW Plt Count Seg Neutrophils % Seg Neuts % (Manual) Nucleated RBC % Seg Neutrophils # Seg Neutrophils # Man PT INR POC ABG pH POC ABG pCO2 POC ABG pO2 Sodium Potassium Chloride Carbon Dioxide BUN Creatinine Glucose POC Glucose 120 H 209 H 173 H Lactic Acid Calcium Magnesium Total Bilirubin AST ALT Alkaline Phosphatase Ammonia Troponin T C-Reactive Protein Total Protein Albumin Prealbumin TSH Crossmatch 09/27/16 09/27/16 09/27/16 11:31 17:22 20:41 WBC RBC Hgb Hct MCV MCH MCHC RDW Plt Count Seg Neutrophils % Seg Neuts % (Manual) Nucleated RBC % Seg Neutrophils # Seg Neutrophils # Man PT INR POC ABG pH POC ABG pCO2 POC ABG pO2 Sodium Potassium Chloride Carbon Dioxide BUN Creatinine Glucose POC Glucose 185 H 167 H 185 H Lactic Acid Calcium Magnesium Total Bilirubin AST ALT Alkaline Phosphatase Ammonia Troponin T C-Reactive Protein Total Protein Albumin Prealbumin TSH Crossmatch 09/28/16 09/28/16 09/28/16 00:30 04:00 04:00 WBC RBC 3.00 L Hgb 9.4 L Hct 28.7 L MCV MCH MCHC RDW 19.1 H Plt Count Seg Neutrophils % Seg Neuts % (Manual) Nucleated RBC % Seg Neutrophils # Seg Neutrophils # Man PT INR POC ABG pH POC ABG pCO2 POC ABG pO2 Sodium Potassium Chloride 110.5 H Carbon Dioxide BUN 24 H Creatinine 0.3 L Glucose 214 H POC Glucose 159 H Lactic Acid Calcium 7.9 L Magnesium Total Bilirubin AST ALT Alkaline Phosphatase Ammonia Troponin T C-Reactive Protein Total Protein Albumin Prealbumin TSH Crossmatch 09/28/16 04:12 WBC RBC Hgb Hct MCV MCH MCHC RDW Plt Count Seg Neutrophils % Seg Neuts % (Manual) Nucleated RBC % Seg Neutrophils # Seg Neutrophils # Man PT INR POC ABG pH POC ABG pCO2 POC ABG pO2 Sodium Potassium Chloride Carbon Dioxide BUN Creatinine Glucose POC Glucose 209 H Lactic Acid Calcium Magnesium Total Bilirubin AST ALT Alkaline Phosphatase Ammonia Troponin T C-Reactive Protein Total Protein Albumin Prealbumin TSH Crossmatch Allied health notes reviewed: RT
--- NOTE | 2016-09-28 14:27 | Progress Note ---
Assessment and Plan Patient is a 61-year-old morbid obese woman with a history of congestive heart failure, severe protein calorie malnutrition (bilateral faith muscle severe wasting, hypothenar muscle wasting) with BMI of 81.6, functional quadriplegia, type 2 diabetes mellitus, hypertension, multiple skin breakdown between legs and thighs who presented to the hospital via EMS with AMS. 2D echocardiogram with ejection fraction of 50-55%. During the past admission, patient was recommended for placement but refused. On presentation to ED, patient was felt to be unable to maintain her airways and intubated the ER since 08/29/16. 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, poa: supportative care, Unable to get CT head due to weight issues -Acute on chronic diastolic congestive heart failure: treated with diuresis -Acute on chronic respiratory failure, intubated for PEG and trach. placement when stable -Severe anemia s/p 5 units of PRBC monitor H&H as needed -Paroxysmal atrial fibrillation: -Non-ST elevated LA type 2: Medical management, not on anticoagulation for ongoing anemia -Acute on chronic kidney disease III: stable - Hyponatremia, getting free water with 2 feeding -Severe protein calorie malnutrition albumin 1.2. Continue nasogastric tube feedings -Morbid obesity BMI 81.6 -Mulitple PRESSURE ULCERS-POA: consulted wound care - DM: on ssi, s/p insulin drip -Dvt prophylaxis: sq lovenox per [facility] Disposition: LTAC declined, case management is working on placement. General surgeon evaluating for trach and PEG placement DNR Subjective Date of service: 09/28/16 Principal diagnosis: Acute Hypoxemic Hypercapnic Resp Failure; Severe Sepsis Interval history: Patient seen and examined. Follow up on respiratory failure. Patient still intubated. She appears still unresponsive. Off Levophed today. General surgeon to schedule for trach and PEG Objective - Exam Narrative Exam: GEN: Critically ill, morbid obese BMI 81.6, intubated, HEENT: Pupils are pinpoint and reactive, ET tube in place NECK: SUPPLE, NO THYROMEGALY, NO JVD, NO LAD CVS: regular irregular NORMAL S1S2 LUNGS/CHEST: TA B, NORMAL CHEST EXPANSION B, GOOD AIR ENTRY B ABD: SOFT, NONDISTENDED GBS, NO REBOUND OR GUARDING NEURO: doesn't follow commands PSY: awake with eyes open Extremities: 3+ edema - Constitutional Vitals: Vital Signs - 12hr 06/19/17 06/19/17 06/19/17 03:00 03:46 03:55 Temperature 97.6 F Pulse Rate 83 81 Pulse Rate [ Anterior Bilateral Throughout] Pulse Rate [ From Monitor] Respiratory 28 H Rate Respiratory Rate [Anterior Bilateral Throughout] Blood Pressure 183/132 117/70 O2 Sat by Pulse 98 97 Oximetry 09/28/16 09/28/16 09/28/16 04:00 05:00 05:46 Temperature Pulse Rate 78 69 75 Pulse Rate [ Anterior Bilateral Throughout] Pulse Rate [ From Monitor] Respiratory 28 H 27 H Rate Respiratory Rate [Anterior Bilateral Throughout] Blood Pressure 98/35 142/74 142/74 O2 Sat by Pulse 100 100 Oximetry 09/28/16 09/28/16 09/28/16 07:41 08:00 08:05 Temperature 96.7 F L Pulse Rate Pulse Rate [ 65 Anterior Bilateral Throughout] Pulse Rate [ 71 From Monitor] Respiratory 31 H Rate Respiratory 25 H Rate [Anterior Bilateral Throughout] Blood Pressure O2 Sat by Pulse 99 Oximetry 09/28/16 09/28/16 09/28/16 08:12 08:16 08:20 Temperature Pulse Rate 66 65 Pulse Rate [ 65 Anterior Bilateral Throughout] Pulse Rate [ From Monitor] Respiratory 22 28 H Rate Respiratory Rate [Anterior Bilateral Throughout] Blood Pressure 183/132 183/132 O2 Sat by Pulse 97 98 Oximetry 09/28/16 09/28/16 09/28/16 08:30 08:46 09:00 Temperature Pulse Rate 71 75 78 Pulse Rate [ Anterior Bilateral Throughout] Pulse Rate [ From Monitor] Respiratory 28 H 33 H 32 H Rate Respiratory Rate [Anterior Bilateral Throughout] Blood Pressure 183/132 183/132 117/51 O2 Sat by Pulse 99 100 100 Oximetry 09/28/16 09/28/16 09/28/16 09:15 09:30 09:35 Temperature Pulse Rate 68 72 82 Pulse Rate [ Anterior Bilateral Throughout] Pulse Rate [ From Monitor] Respiratory 33 H 33 H Rate Respiratory Rate [Anterior Bilateral Throughout] Blood Pressure 114/87 114/87 114/87 O2 Sat by Pulse 99 100 99 Oximetry 09/28/16 09/28/16 09/28/16 09:45 10:00 10:01 Temperature Pulse Rate 78 72 70 Pulse Rate [ Anterior Bilateral Throughout] Pulse Rate [ From Monitor] Respiratory 39 H 31 H Rate Respiratory Rate [Anterior Bilateral Throughout] Blood Pressure 106/16 O2 Sat by Pulse 100 100 Oximetry 09/28/16 09/28/16 09/28/16 10:15 10:31 10:45 Temperature Pulse Rate 67 76 77 Pulse Rate [ Anterior Bilateral Throughout] Pulse Rate [ From Monitor] Respiratory 29 H 33 H 36 H Rate Respiratory Rate [Anterior Bilateral Throughout] Blood Pressure 106/16 106/16 106/16 O2 Sat by Pulse 100 98 99 Oximetry 09/28/16 09/28/16 09/28/16 11:01 11:15 11:25 Temperature Pulse Rate 74 75 72 Pulse Rate [ Anterior Bilateral Throughout] Pulse Rate [ From Monitor] Respiratory 21 33 H Rate Respiratory Rate [Anterior Bilateral Throughout] Blood Pressure 82/26 82/26 82/26 O2 Sat by Pulse 100 100 Oximetry 09/28/16 11:58 Temperature 97.4 F L Pulse Rate Pulse Rate [ Anterior Bilateral Throughout] Pulse Rate [ From Monitor] Respiratory Rate Respiratory Rate [Anterior Bilateral Throughout] Blood Pressure O2 Sat by Pulse Oximetry - Labs CBC & Chem 7: 09/28/16 04:00 09/28/16 04:00 Labs: Abnormal lab results 09/27/16 09/27/16 09/28/16 Range/Units 17:22 20:41 00:30 RBC (3.65-5.03) M/mm3 Hgb (10.1-14.3) gm/dl Hct (30.3-42.9) % RDW (13.2-15.2) % Chloride (98-107) mmol/L BUN (7-17) mg/dL Creatinine (0.7-1.2) mg/dL Glucose (65-100) mg/dL POC Glucose 167 H 185 H 159 H (70-105) Calcium (8.4-10.2) mg/dL 09/28/16 09/28/16 09/28/16 Range/Units 04:00 04:00 04:12 RBC 3.00 L (3.65-5.03) M/mm3 Hgb 9.4 L (10.1-14.3) gm/dl Hct 28.7 L (30.3-42.9) % RDW 19.1 H (13.2-15.2) % Chloride 110.5 H (98-107) mmol/L BUN 24 H (7-17) mg/dL Creatinine 0.3 L (0.7-1.2) mg/dL Glucose 214 H (65-100) mg/dL POC Glucose 209 H (70-105) Calcium 7.9 L (8.4-10.2) mg/dL 09/28/16 Range/Units 09:58 RBC (3.65-5.03) M/mm3 Hgb (10.1-14.3) gm/dl Hct (30.3-42.9) % RDW (13.2-15.2) % Chloride (98-107) mmol/L BUN (7-17) mg/dL Creatinine (0.7-1.2) mg/dL Glucose (65-100) mg/dL POC Glucose 191 H (70-105) Calcium (8.4-10.2) mg/dL
--- NOTE | 2016-09-28 14:30 | Progress Note ---
Assessment and Plan A/P: 1. The patient is currently off pressors. We will schedule the trach/PEG at the earliest available time in the operating room. Subjective Date of service: 09/28/16 Narrative: The patient remains intubated. Objective Vital Signs - 12hr 09/28/16 09/28/16 09/28/16 03:00 03:46 03:55 Temperature 97.6 F Pulse Rate 83 81 Pulse Rate [ Anterior Bilateral Throughout] Pulse Rate [ From Monitor] Respiratory 28 H Rate Respiratory Rate [Anterior Bilateral Throughout] Blood Pressure 183/132 117/70 O2 Sat by Pulse 98 97 Oximetry 09/28/16 09/28/16 09/28/16 04:00 05:00 05:46 Temperature Pulse Rate 78 69 75 Pulse Rate [ Anterior Bilateral Throughout] Pulse Rate [ From Monitor] Respiratory 28 H 27 H Rate Respiratory Rate [Anterior Bilateral Throughout] Blood Pressure 98/35 142/74 142/74 O2 Sat by Pulse 100 100 Oximetry 09/28/16 09/28/16 09/28/16 07:41 08:00 08:05 Temperature 96.7 F L Pulse Rate Pulse Rate [ 65 Anterior Bilateral Throughout] Pulse Rate [ 71 From Monitor] Respiratory 31 H Rate Respiratory 25 H Rate [Anterior Bilateral Throughout] Blood Pressure O2 Sat by Pulse 99 Oximetry 09/28/16 09/28/16 09/28/16 08:12 08:16 08:20 Temperature Pulse Rate 66 65 Pulse Rate [ 65 Anterior Bilateral Throughout] Pulse Rate [ From Monitor] Respiratory 22 28 H Rate Respiratory Rate [Anterior Bilateral Throughout] Blood Pressure 183/132 183/132 O2 Sat by Pulse 97 98 Oximetry 09/28/16 09/28/16 09/28/16 08:30 08:46 09:00 Temperature Pulse Rate 71 75 78 Pulse Rate [ Anterior Bilateral Throughout] Pulse Rate [ From Monitor] Respiratory 28 H 33 H 32 H Rate Respiratory Rate [Anterior Bilateral Throughout] Blood Pressure 183/132 183/132 117/51 O2 Sat by Pulse 99 100 100 Oximetry 09/28/16 09/28/16 09/28/16 09:15 09:30 09:35 Temperature Pulse Rate 68 72 82 Pulse Rate [ Anterior Bilateral Throughout] Pulse Rate [ From Monitor] Respiratory 33 H 33 H Rate Respiratory Rate [Anterior Bilateral Throughout] Blood Pressure 114/87 114/87 114/87 O2 Sat by Pulse 99 100 99 Oximetry 09/28/16 09/28/16 09/28/16 09:45 10:00 10:01 Temperature Pulse Rate 78 72 70 Pulse Rate [ Anterior Bilateral Throughout] Pulse Rate [ From Monitor] Respiratory 39 H 31 H Rate Respiratory Rate [Anterior Bilateral Throughout] Blood Pressure 106/16 O2 Sat by Pulse 100 100 Oximetry 09/28/16 09/28/16 09/28/16 10:15 10:31 10:45 Temperature Pulse Rate 67 76 77 Pulse Rate [ Anterior Bilateral Throughout] Pulse Rate [ From Monitor] Respiratory 29 H 33 H 36 H Rate Respiratory Rate [Anterior Bilateral Throughout] Blood Pressure 106/16 106/16 106/16 O2 Sat by Pulse 100 98 99 Oximetry 09/28/16 09/28/16 09/28/16 11:01 11:15 11:25 Temperature Pulse Rate 74 75 72 Pulse Rate [ Anterior Bilateral Throughout] Pulse Rate [ From Monitor] Respiratory 21 33 H Rate Respiratory Rate [Anterior Bilateral Throughout] Blood Pressure 82/26 82/26 82/26 O2 Sat by Pulse 100 100 Oximetry 09/28/16 11:58 Temperature 97.4 F L Pulse Rate Pulse Rate [ Anterior Bilateral Throughout] Pulse Rate [ From Monitor] Respiratory Rate Respiratory Rate [Anterior Bilateral Throughout] Blood Pressure O2 Sat by Pulse Oximetry - Neck no masses, trachea midline - Abdomen soft (morbidly obese) - Labs 09/28/16 04:00 09/28/16 04:00 Diabetes panel 09/28/16 Range/Units 04:00 Sodium 143 (137-145) mmol/L Potassium 3.8 (3.6-5.0) mmol/L Chloride 110.5 H (98-107) mmol/L Carbon Dioxide 22 (22-30) mmol/L BUN 24 H (7-17) mg/dL Creatinine 0.3 L (0.7-1.2) mg/dL Glucose 214 H (65-100) mg/dL Calcium 7.9 L (8.4-10.2) mg/dL Calcium panel 09/28/16 Range/Units 04:00 Calcium 7.9 L (8.4-10.2) mg/dL Pituitary panel 09/28/16 Range/Units 04:00 Sodium 143 (137-145) mmol/L Potassium 3.8 (3.6-5.0) mmol/L Chloride 110.5 H (98-107) mmol/L Carbon Dioxide 22 (22-30) mmol/L BUN 24 H (7-17) mg/dL Creatinine 0.3 L (0.7-1.2) mg/dL Glucose 214 H (65-100) mg/dL Calcium 7.9 L (8.4-10.2) mg/dL Adrenal panel 09/28/16 Range/Units 04:00 Sodium 143 (137-145) mmol/L Potassium 3.8 (3.6-5.0) mmol/L Chloride 110.5 H (98-107) mmol/L Carbon Dioxide 22 (22-30) mmol/L BUN 24 H (7-17) mg/dL Creatinine 0.3 L (0.7-1.2) mg/dL Glucose 214 H (65-100) mg/dL Calcium 7.9 L (8.4-10.2) mg/dL
[2016-09-28] MEDS: ATIVAN IV PRN (19:03)
[2016-09-29] MEDS: DUONEB 0.5 MG-3 MG/3 ML SOLN IH SCH ×4 (01:40→19:45)
[2016-09-29] MEDS: NOVOLOG SUB-Q SCH ×6 (02:50→22:23)
[2016-09-29] MEDS: LOPRESSOR PO SCH ×3 (05:34→16:00)
[2016-09-29] MEDS: PROAMATINE PO SCH ×3 (05:34→21:31)
[2016-09-29] MEDS: ATIVAN IV PRN ×3 (05:51→16:00)
--- NOTE | 2016-09-29 09:18 | Progress Note ---
Assessment and Plan - Patient Problems (1) Respiratory failure Current Visit: Yes Status: Acute Qualifiers: Chronicity: C Respiratory failure complication: R Plan to address problem: Currently on mechanical ventilatory support AC-VC at night and pressure support during the day VAP bundle addressed Wean FIO2 for O2 sats>92% HOB>40, aspiration precautions VTE prophylaxis- discontinue enoxaparin in view of anemia and use SCDs Stress ulcer prophylaxis- Pantoprazole Lung protective strategies Tracheostomy placement once there is availability in OR per surgery notes Continue with enteric feedings, monitor accucheck (2) Shock Current Visit: Yes Status: Acute Plan to address problem: Treated as septic shock secondary to HCAP -resolved (3) Acute on chronic diastolic (congestive) heart failure Current Visit: No Status: Acute Plan to address problem: Documented EF 55% Continue to monitoring renal function and electrolyte profile closely Monitor urine output, electrolyte profile (4) Altered mental status Current Visit: Yes Status: Acute Qualifiers: Altered mental status type: unspecified Coma depth: C Coma timing: C Qualified Code(s): R41.82 - Altered mental status, unspecified Plan to address problem: Continue to monitor (5) Morbid obesity Current Visit: Yes Status: Acute Qualifiers: Obesity type: unspecified obesity type Qualified Code(s): E66.01 - Morbid ( severe) obesity due to excess calories (6) Anemia Current Visit: Yes Status: Acute Qualifiers: Anemia type: unspecified type Iron deficiency anemia type: I Vitamin B12 deficiency anemia type: V Folate deficiency anemia type: F Bone marrow failure anemia type: B Hemolytic anemia type: H Other causes of anemia: O Chronic kidney disease stage: C Qualified Code(s): D64.9 - Anemia, unspecified Plan to address problem: Continue to monitor. CBC prn Supportive transfusions (7) Status epilepticus Current Visit: Yes Status: Acute (8) Status epilepticus due to refractory complex partial seizures Current Visit: Yes Status: Acute Plan to address problem: [facility] following. (9) Discharge planning issues Current Visit: Yes Status: Acute Plan to address problem: Continue current care. AND/DNR LTACH placement. PEG/Tracheostomy placement to facilitate discharge planning and on-going care (10) Dysphagia, oropharyngeal phase Current Visit: Yes Status: Acute Plan to address problem: PEG tube placement by surgery Subjective Date of service: 09/29/16 Principal diagnosis: Acute Hypoxemic Hypercapnic Resp Failure; Severe Sepsis Interval history: Remains orally intubated. Seen and examined. Vitals, labs, medications, chart and imaging reviewed. No seizures overnight Patient is now DNR in the event of cardiopulmonary arrest Awaiting tracheostomy placement and PEG placement Tolerating spontaneous breathing trials during the day and full support at night. PS10/5, with tidal volumes of 340 AC/VC 25/400/5/25% Objective Vital Signs - 12hr 09/28/16 09/28/16 09/28/16 21:31 22:00 22:30 Temperature Pulse Rate 89 72 89 Pulse Rate [ Anterior Bilateral Throughout] Pulse Rate [ From Monitor] Respiratory 16 25 H 18 Rate Respiratory Rate [Anterior Bilateral Throughout] Blood Pressure 116/43 114/45 116/44 O2 Sat by Pulse 100 99 98 Oximetry 09/28/16 09/28/16 09/28/16 23:00 23:03 23:30 Temperature Pulse Rate 92 H 93 H 96 H Pulse Rate [ Anterior Bilateral Throughout] Pulse Rate [ From Monitor] Respiratory 31 H 31 H 32 H Rate Respiratory Rate [Anterior Bilateral Throughout] Blood Pressure 111/51 111/51 108/52 O2 Sat by Pulse 97 99 98 Oximetry 09/28/16 09/29/16 09/29/16 23:47 00:00 00:30 Temperature 98.5 F Pulse Rate 85 78 Pulse Rate [ Anterior Bilateral Throughout] Pulse Rate [ 85 From Monitor] Respiratory 17 15 Rate Respiratory Rate [Anterior Bilateral Throughout] Blood Pressure 110/43 108/41 O2 Sat by Pulse 98 98 Oximetry 09/29/16 09/29/16 09/29/16 01:00 01:30 01:40 Temperature Pulse Rate 75 83 Pulse Rate [ 95 H Anterior Bilateral Throughout] Pulse Rate [ From Monitor] Respiratory 24 16 Rate Respiratory 25 H Rate [Anterior Bilateral Throughout] Blood Pressure 109/44 110/41 O2 Sat by Pulse 98 99 Oximetry 09/29/16 09/29/16 09/29/16 01:55 02:00 02:30 Temperature Pulse Rate 80 82 Pulse Rate [ 97 H Anterior Bilateral Throughout] Pulse Rate [ From Monitor] Respiratory 26 H 26 H Rate Respiratory 25 H Rate [Anterior Bilateral Throughout] Blood Pressure 93/39 95/41 O2 Sat by Pulse 98 99 Oximetry 09/29/16 09/29/16 09/29/16 03:01 03:31 04:00 Temperature 98.7 F Pulse Rate 97 H 90 80 Pulse Rate [ Anterior Bilateral Throughout] Pulse Rate [ 80 From Monitor] Respiratory 30 H 32 H 26 H Rate Respiratory Rate [Anterior Bilateral Throughout] Blood Pressure 132/40 125/44 103/48 O2 Sat by Pulse 98 99 100 Oximetry 09/29/16 09/29/16 09/29/16 04:31 05:01 05:31 Temperature Pulse Rate 98 H 79 80 Pulse Rate [ Anterior Bilateral Throughout] Pulse Rate [ From Monitor] Respiratory 31 H 31 H Rate Respiratory Rate [Anterior Bilateral Throughout] Blood Pressure 121/80 118/74 172/145 O2 Sat by Pulse 99 97 97 Oximetry 09/29/16 09/29/16 09/29/16 05:34 06:00 06:30 Temperature Pulse Rate 79 65 67 Pulse Rate [ Anterior Bilateral Throughout] Pulse Rate [ From Monitor] Respiratory 25 H 25 H Rate Respiratory Rate [Anterior Bilateral Throughout] Blood Pressure 118/74 94/41 73/32 O2 Sat by Pulse 99 98 Oximetry 09/29/16 09/29/16 09/29/16 07:00 07:30 08:00 Temperature 98.2 F Pulse Rate 68 73 Pulse Rate [ Anterior Bilateral Throughout] Pulse Rate [ From Monitor] Respiratory 25 H 25 H Rate Respiratory Rate [Anterior Bilateral Throughout] Blood Pressure 77/33 102/50 O2 Sat by Pulse 98 99 Oximetry 09/29/16 09:10 Temperature Pulse Rate Pulse Rate [ Anterior Bilateral Throughout] Pulse Rate [ From Monitor] Respiratory 25 H Rate Respiratory Rate [Anterior Bilateral Throughout] Blood Pressure 110/44 O2 Sat by Pulse 99 Oximetry Constitutional: no acute distress, other (encephalopathic, orally intubated to mechanical ventilation) Eyes: non-icteric ENT: oropharynx moist, other (ETT 22cm RAFAEL) Neck: supple, no lymphadenopathy, no JVD Effort: normal, mildly labored Ascultation: Bilateral: clear, diminished breath sounds, rales (bases) Cardiovascular: regular rate and rhythm, other (S1,S2, no murmurs, gallops or rubs) Gastrointestinal: normoactive bowel sounds, hypoactive bowel sounds, soft (obese ), non-tender, non-distended Integumentary: normal, other (chronic venous stasis changes) Extremities: no cyanosis, no edema, pulses normal, no ischemia or petechiae, edema (1+) Neurologic: unable to assess, other (lethargic) Psychiatric: other (awake but not obeying commands, not tracking voice) CBC and BMP: 09/28/16 04:00 09/28/16 04:00 ABG, PT/INR, D-dimer: ABG POC ABG pH 7.460 (7.35-7.45) H 09/22/16 03:26 POC ABG pCO2 29.9 (35-45) L 09/22/16 03:26 POC ABG pO2 112 (80-105) H 09/22/16 03:26 POC ABG HCO3 21.3 09/22/16 03:26 POC ABG Total CO2 22 09/22/16 03:26 POC ABG O2 Sat 99 09/22/16 03:26 PT/INR, D-dimer PT 13.8 Sec. (12.2-14.9) 09/10/16 05:10 INR 1.07 (0.87-1.13) 09/10/16 05:10 Abnormal lab findings: Abnormal Labs 08/29/16 08/30/16 08/30/16 21:59 00:16 05:39 WBC RBC Hgb Hct MCV MCH MCHC RDW Plt Count Seg Neutrophils % Seg Neuts % (Manual) Nucleated RBC % Seg Neutrophils # Seg Neutrophils # Man PT INR POC ABG pH POC ABG pCO2 POC ABG pO2 Sodium Potassium Chloride Carbon Dioxide BUN Creatinine Glucose POC Glucose 106 H 128 H Lactic Acid Calcium Magnesium Total Bilirubin AST ALT Alkaline Phosphatase Ammonia Troponin T C-Reactive Protein Total Protein Albumin Prealbumin 0.120 L TSH Crossmatch 08/30/16 08/30/16 08/30/16 10:30 10:30 11:12 WBC 11.1 H RBC 3.16 L Hgb 8.7 L Hct 29.9 L MCV MCH MCHC 29 L RDW 25.0 H Plt Count Seg Neutrophils % 78.6 H Seg Neuts % (Manual) Nucleated RBC % Seg Neutrophils # 8.7 H Seg Neutrophils # Man PT INR POC ABG pH POC ABG pCO2 POC ABG pO2 Sodium 135 L Potassium Chloride Carbon Dioxide 20 L BUN Creatinine 1.5 H Glucose 148 H POC Glucose 142 H Lactic Acid Calcium 7.2 L Magnesium Total Bilirubin 1.30 H AST 143 H ALT Alkaline Phosphatase 392 H Ammonia Troponin T C-Reactive Protein Total Protein 6.1 L Albumin 1.2 L Prealbumin TSH Crossmatch 08/30/16 08/30/16 08/30/16 17:41 18:03 18:18 WBC RBC Hgb Hct MCV MCH MCHC RDW Plt Count Seg Neutrophils % Seg Neuts % (Manual) Nucleated RBC % Seg Neutrophils # Seg Neutrophils # Man PT INR POC ABG pH 7.316 L POC ABG pCO2 POC ABG pO2 44 L 59 L Sodium Potassium Chloride Carbon Dioxide BUN Creatinine Glucose POC Glucose 150 H Lactic Acid Calcium Magnesium Total Bilirubin AST ALT Alkaline Phosphatase Ammonia Troponin T C-Reactive Protein Total Protein Albumin Prealbumin TSH Crossmatch 08/30/16 08/30/16 08/31/16 22:20 22:20 00:11 WBC RBC Hgb Hct MCV MCH MCHC RDW Plt Count Seg Neutrophils % Seg Neuts % (Manual) Nucleated RBC % Seg Neutrophils # Seg Neutrophils # Man PT INR POC ABG pH POC ABG pCO2 POC ABG pO2 Sodium Potassium Chloride Carbon Dioxide BUN Creatinine Glucose POC Glucose 133 H Lactic Acid 2.30 H* Calcium Magnesium Total Bilirubin AST ALT Alkaline Phosphatase Ammonia Troponin T C-Reactive Protein 10.20 H Total Protein Albumin Prealbumin TSH Crossmatch 08/31/16 08/31/16 08/31/16 04:20 04:20 04:20 WBC 18.3 H RBC 3.19 L Hgb 8.8 L Hct 30.0 L MCV MCH 27 L MCHC 29 L RDW 23.9 H Plt Count Seg Neutrophils % Seg Neuts % (Manual) Nucleated RBC % Seg Neutrophils # Seg Neutrophils # Man PT 16.8 H INR 1.37 H POC ABG pH POC ABG pCO2 POC ABG pO2 Sodium 136 L Potassium Chloride Carbon Dioxide 19 L BUN Creatinine 1.5 H Glucose 125 H POC Glucose Lactic Acid Calcium 7.0 L Magnesium Total Bilirubin 1.50 H AST 131 H ALT Alkaline Phosphatase 431 H Ammonia Troponin T C-Reactive Protein Total Protein 6.2 L Albumin 1.2 L Prealbumin TSH Crossmatch 08/31/16 08/31/16 08/31/16 04:20 05:22 05:24 WBC RBC Hgb Hct MCV MCH MCHC RDW Plt Count Seg Neutrophils % Seg Neuts % (Manual) Nucleated RBC % Seg Neutrophils # Seg Neutrophils # Man PT INR POC ABG pH POC ABG pCO2 POC ABG pO2 142 H Sodium Potassium Chloride Carbon Dioxide BUN Creatinine Glucose POC Glucose 123 H Lactic Acid Calcium Magnesium Total Bilirubin AST ALT Alkaline Phosphatase Ammonia 70.0 H Troponin T C-Reactive Protein Total Protein Albumin Prealbumin TSH Crossmatch 08/31/16 08/31/16 08/31/16 12:10 15:45 17:38 WBC RBC Hgb Hct MCV MCH MCHC RDW Plt Count Seg Neutrophils % Seg Neuts % (Manual) Nucleated RBC % Seg Neutrophils # Seg Neutrophils # Cristian PT INR POC ABG pH POC ABG pCO2 POC ABG pO2 Sodium 136 L Potassium Chloride Carbon Dioxide 21 L BUN Creatinine 1.5 H Glucose 160 H POC Glucose 147 H 151 H Lactic Acid Calcium 6.9 L Magnesium Total Bilirubin AST ALT Alkaline Phosphatase Ammonia Troponin T 0.109 H* D C-Reactive Protein Total Protein Albumin Prealbumin TSH Crossmatch 09/01/16 09/01/16 09/01/16 00:09 04:00 04:00 WBC 14.8 H RBC 2.89 L Hgb 7.8 L Hct 27.2 L MCV MCH 27 L MCHC 29 L RDW 24.4 H Plt Count Seg Neutrophils % Seg Neuts % (Manual) Nucleated RBC % Seg Neutrophils # Seg Neutrophils # Man PT 18.2 H INR 1.51 H POC ABG pH POC ABG pCO2 POC ABG pO2 Sodium Potassium Chloride Carbon Dioxide BUN Creatinine Glucose POC Glucose 192 H Lactic Acid Calcium Magnesium Total Bilirubin AST ALT Alkaline Phosphatase Ammonia Troponin T C-Reactive Protein Total Protein Albumin Prealbumin TSH Crossmatch 09/01/16 09/01/16 09/01/16 04:00 05:28 11:28 WBC RBC Hgb Hct MCV MCH MCHC RDW Plt Count Seg Neutrophils % Seg Neuts % (Manual) Nucleated RBC % Seg Neutrophils # Seg Neutrophils # Man PT INR POC ABG pH POC ABG pCO2 POC ABG pO2 Sodium Potassium Chloride Carbon Dioxide 20 L BUN Creatinine 1.6 H Glucose 183 H POC Glucose 189 H 207 H Lactic Acid Calcium 6.9 L Magnesium Total Bilirubin 1.30 H AST 138 H ALT Alkaline Phosphatase 520 H Ammonia Troponin T C-Reactive Protein Total Protein 6.1 L Albumin 1.2 L Prealbumin TSH Crossmatch 09/01/16 09/01/16 09/02/16 16:56 23:49 05:00 WBC RBC Hgb Hct MCV MCH MCHC RDW Plt Count Seg Neutrophils % Seg Neuts % (Manual) Nucleated RBC % Seg Neutrophils # Seg Neutrophils # Man PT 18.0 H INR 1.49 H POC ABG pH POC ABG pCO2 POC ABG pO2 Sodium Potassium Chloride Carbon Dioxide BUN Creatinine Glucose POC Glucose 250 H 307 H Lactic Acid Calcium Magnesium Total Bilirubin AST ALT Alkaline Phosphatase Ammonia Troponin T C-Reactive Protein Total Protein Albumin Prealbumin TSH Crossmatch 09/02/16 09/02/16 09/02/16 05:00 05:00 05:45 WBC 12.3 H RBC 2.57 L Hgb 7.1 L Hct 23.4 L MCV MCH MCHC RDW 23.9 H Plt Count Seg Neutrophils % Seg Neuts % (Manual) 72.0 H Nucleated RBC % 25.0 H Seg Neutrophils # Seg Neutrophils # Man 8.9 H PT INR POC ABG pH POC ABG pCO2 POC ABG pO2 Sodium Potassium Chloride Carbon Dioxide BUN Creatinine 1.4 H Glucose 299 H POC Glucose 327 H Lactic Acid Calcium 7.0 L Magnesium Total Bilirubin AST ALT Alkaline Phosphatase Ammonia Troponin T C-Reactive Protein Total Protein Albumin Prealbumin TSH Crossmatch 09/02/16 09/02/16 09/02/16 12:22 17:22 23:24 WBC RBC Hgb Hct MCV MCH MCHC RDW Plt Count Seg Neutrophils % Seg Neuts % (Manual) Nucleated RBC % Seg Neutrophils # Seg Neutrophils # Man PT INR POC ABG pH POC ABG pCO2 POC ABG pO2 Sodium Potassium Chloride Carbon Dioxide BUN Creatinine Glucose POC Glucose 310 H 358 H 286 H Lactic Acid Calcium Magnesium Total Bilirubin AST ALT Alkaline Phosphatase Ammonia Troponin T C-Reactive Protein Total Protein Albumin Prealbumin TSH Crossmatch 09/03/16 09/03/16 09/03/16 04:10 04:10 04:10 WBC 11.8 H RBC 2.29 L Hgb 6.1 L Hct 21.0 L MCV MCH 27 L MCHC 29 L RDW 24.1 H Plt Count Seg Neutrophils % Seg Neuts % (Manual) Nucleated RBC % Seg Neutrophils # Seg Neutrophils # Man PT 17.6 H INR 1.45 H POC ABG pH POC ABG pCO2 POC ABG pO2 Sodium Potassium Chloride Carbon Dioxide BUN Creatinine 1.4 H Glucose 301 H POC Glucose Lactic Acid Calcium 7.0 L Magnesium Total Bilirubin AST ALT Alkaline Phosphatase Ammonia Troponin T C-Reactive Protein Total Protein Albumin Prealbumin TSH Crossmatch 09/03/16 09/03/16 09/03/16 05:59 11:36 17:42 WBC RBC Hgb Hct MCV MCH MCHC RDW Plt Count Seg Neutrophils % Seg Neuts % (Manual) Nucleated RBC % Seg Neutrophils # Seg Neutrophils # Man PT INR POC ABG pH POC ABG pCO2 POC ABG pO2 Sodium Potassium Chloride Carbon Dioxide BUN Creatinine Glucose POC Glucose 351 H 285 H 259 H Lactic Acid Calcium Magnesium Total Bilirubin AST ALT Alkaline Phosphatase Ammonia Troponin T C-Reactive Protein Total Protein Albumin Prealbumin TSH Crossmatch 09/03/16 09/04/16 09/04/16 23:00 04:27 05:36 WBC RBC Hgb Hct MCV MCH MCHC RDW Plt Count Seg Neutrophils % Seg Neuts % (Manual) Nucleated RBC % Seg Neutrophils # Seg Neutrophils # Man PT INR POC ABG pH 7.544 H POC ABG pCO2 30.8 L POC ABG pO2 78 L Sodium Potassium Chloride Carbon Dioxide BUN Creatinine Glucose POC Glucose 192 H 228 H Lactic Acid Calcium Magnesium Total Bilirubin AST ALT Alkaline Phosphatase Ammonia Troponin T C-Reactive Protein Total Protein Albumin Prealbumin TSH Crossmatch 09/04/16 09/04/16 09/04/16 06:37 06:37 06:39 WBC 21.0 H RBC 2.22 L Hgb 6.0 L Hct 20.1 L MCV MCH 27 L MCHC RDW 24.3 H Plt Count Seg Neutrophils % Seg Neuts % (Manual) Nucleated RBC % Seg Neutrophils # Seg Neutrophils # Man PT 16.8 H INR 1.37 H POC ABG pH POC ABG pCO2 POC ABG pO2 Sodium Potassium Chloride Carbon Dioxide BUN Creatinine 1.4 H Glucose 201 H POC Glucose Lactic Acid Calcium 7.1 L Magnesium Total Bilirubin AST ALT Alkaline Phosphatase Ammonia Troponin T C-Reactive Protein Total Protein Albumin Prealbumin TSH Crossmatch 09/04/16 09/04/16 09/04/16 12:14 15:47 17:41 WBC RBC Hgb Hct MCV MCH MCHC RDW Plt Count Seg Neutrophils % Seg Neuts % (Manual) Nucleated RBC % Seg Neutrophils # Seg Neutrophils # Man PT INR POC ABG pH POC ABG pCO2 POC ABG pO2 Sodium Potassium Chloride Carbon Dioxide BUN Creatinine Glucose POC Glucose 176 H 218 H Lactic Acid Calcium Magnesium Total Bilirubin AST ALT Alkaline Phosphatase Ammonia Troponin T C-Reactive Protein Total Protein Albumin Prealbumin TSH Crossmatch See Detail 09/04/16 09/04/16 09/05/16 21:59 23:48 04:30 WBC RBC Hgb Hct MCV MCH MCHC RDW Plt Count Seg Neutrophils % Seg Neuts % (Manual) Nucleated RBC % Seg Neutrophils # Seg Neutrophils # Man PT 17.2 H INR 1.41 H POC ABG pH POC ABG pCO2 POC ABG pO2 Sodium Potassium Chloride Carbon Dioxide BUN Creatinine Glucose POC Glucose 170 H 121 H Lactic Acid Calcium Magnesium Total Bilirubin AST ALT Alkaline Phosphatase Ammonia Troponin T C-Reactive Protein Total Protein Albumin Prealbumin TSH Crossmatch 09/05/16 09/05/16 09/05/16 04:30 04:30 05:09 WBC 31.9 H RBC 3.11 L Hgb 8.5 L Hct 28.3 L D MCV MCH 27 L MCHC RDW 21.0 H Plt Count Seg Neutrophils % Seg Neuts % (Manual) Nucleated RBC % Seg Neutrophils # Seg Neutrophils # Man PT INR POC ABG pH 7.226 L POC ABG pCO2 61.6 H POC ABG pO2 68 L Sodium 134 L Potassium 5.5 H Chloride 96.6 L Carbon Dioxide BUN 23 H Creatinine 1.6 H Glucose 116 H POC Glucose Lactic Acid Calcium 7.1 L Magnesium Total Bilirubin AST ALT Alkaline Phosphatase Ammonia Troponin T C-Reactive Protein Total Protein Albumin Prealbumin TSH Crossmatch 09/05/16 09/05/16 09/05/16 05:33 12:08 17:32 WBC RBC Hgb Hct MCV MCH MCHC RDW Plt Count Seg Neutrophils % Seg Neuts % (Manual) Nucleated RBC % Seg Neutrophils # Seg Neutrophils # Man PT INR POC ABG pH POC ABG pCO2 POC ABG pO2 Sodium Potassium Chloride Carbon Dioxide BUN Creatinine Glucose POC Glucose 114 H 147 H 174 H Lactic Acid Calcium Magnesium Total Bilirubin AST ALT Alkaline Phosphatase Ammonia Troponin T C-Reactive Protein Total Protein Albumin Prealbumin TSH Crossmatch 09/06/16 09/06/16 09/06/16 03:30 03:30 03:30 WBC 25.4 H RBC 2.57 L Hgb 7.2 L Hct 22.8 L MCV MCH MCHC RDW 20.9 H Plt Count 138 L Seg Neutrophils % Seg Neuts % (Manual) Nucleated RBC % Seg Neutrophils # Seg Neutrophils # Man PT 16.4 H INR 1.33 H POC ABG pH POC ABG pCO2 POC ABG pO2 Sodium Potassium Chloride Carbon Dioxide BUN 36 H Creatinine 1.9 H Glucose POC Glucose Lactic Acid Calcium 7.2 L Magnesium Total Bilirubin AST ALT Alkaline Phosphatase Ammonia Troponin T C-Reactive Protein Total Protein Albumin Prealbumin TSH Crossmatch 09/06/16 09/06/16 09/06/16 11:07 12:03 14:44 WBC RBC Hgb Hct MCV MCH MCHC RDW Plt Count Seg Neutrophils % Seg Neuts % (Manual) Nucleated RBC % Seg Neutrophils # Seg Neutrophils # Man PT INR POC ABG pH POC ABG pCO2 POC ABG pO2 Sodium Potassium Chloride Carbon Dioxide BUN Creatinine Glucose POC Glucose 61 L 55 L Lactic Acid Calcium Magnesium Total Bilirubin AST ALT Alkaline Phosphatase Ammonia Troponin T 0.080 H C-Reactive Protein Total Protein Albumin Prealbumin TSH Crossmatch 09/06/16 09/06/16 09/07/16 21:05 23:53 03:36 WBC RBC Hgb Hct MCV MCH MCHC RDW Plt Count Seg Neutrophils % Seg Neuts % (Manual) Nucleated RBC % Seg Neutrophils # Seg Neutrophils # Man PT INR POC ABG pH POC ABG pCO2 POC ABG pO2 Sodium Potassium Chloride Carbon Dioxide BUN Creatinine Glucose POC Glucose 140 H 178 H 243 H Lactic Acid Calcium Magnesium Total Bilirubin AST ALT Alkaline Phosphatase Ammonia Troponin T C-Reactive Protein Total Protein Albumin Prealbumin TSH Crossmatch 09/07/16 09/07/16 09/07/16 03:42 03:42 05:04 WBC 17.3 H RBC 2.69 L Hgb 7.6 L Hct 23.8 L MCV MCH MCHC RDW 20.5 H Plt Count 137 L Seg Neutrophils % Seg Neuts % (Manual) Nucleated RBC % Seg Neutrophils # Seg Neutrophils # Man PT INR POC ABG pH POC ABG pCO2 POC ABG pO2 Sodium Potassium 3.3 L Chloride Carbon Dioxide BUN 38 H Creatinine 1.6 H Glucose 201 H POC Glucose 241 H Lactic Acid Calcium 7.4 L Magnesium Total Bilirubin AST ALT Alkaline Phosphatase Ammonia Troponin T C-Reactive Protein Total Protein Albumin Prealbumin TSH Crossmatch 09/07/16 09/07/16 09/07/16 11:46 17:41 23:18 WBC RBC Hgb Hct MCV MCH MCHC RDW Plt Count Seg Neutrophils % Seg Neuts % (Manual) Nucleated RBC % Seg Neutrophils # Seg Neutrophils # Man PT INR POC ABG pH POC ABG pCO2 POC ABG pO2 Sodium Potassium Chloride Carbon Dioxide BUN Creatinine Glucose POC Glucose 313 H 227 H 116 H Lactic Acid Calcium Magnesium Total Bilirubin AST ALT Alkaline Phosphatase Ammonia Troponin T C-Reactive Protein Total Protein Albumin Prealbumin TSH Crossmatch 09/08/16 09/08/16 09/08/16 04:00 04:00 05:15 WBC 18.4 H RBC 2.43 L Hgb 6.9 L Hct 21.5 L MCV MCH MCHC RDW 20.5 H Plt Count 119 L Seg Neutrophils % Seg Neuts % (Manual) Nucleated RBC % Seg Neutrophils # Seg Neutrophils # Man PT INR POC ABG pH 7.458 H POC ABG pCO2 POC ABG pO2 177 H Sodium Potassium 3.5 L Chloride Carbon Dioxide BUN 37 H Creatinine 1.3 H Glucose POC Glucose Lactic Acid Calcium 7.1 L Magnesium Total Bilirubin AST ALT Alkaline Phosphatase Ammonia Troponin T C-Reactive Protein Total Protein Albumin Prealbumin TSH Crossmatch 09/08/16 09/08/16 09/08/16 11:00 15:58 23:16 WBC RBC Hgb Hct MCV MCH MCHC RDW Plt Count Seg Neutrophils % Seg Neuts % (Manual) Nucleated RBC % Seg Neutrophils # Seg Neutrophils # Man PT INR POC ABG pH POC ABG pCO2 POC ABG pO2 113 H Sodium Potassium Chloride Carbon Dioxide BUN Creatinine Glucose POC Glucose 40 L Lactic Acid Calcium Magnesium Total Bilirubin AST ALT Alkaline Phosphatase Ammonia Troponin T C-Reactive Protein Total Protein Albumin Prealbumin TSH Crossmatch See Detail 09/09/16 09/09/16 09/09/16 05:02 12:33 18:10 WBC RBC Hgb Hct MCV MCH MCHC RDW Plt Count Seg Neutrophils % Seg Neuts % (Manual) Nucleated RBC % Seg Neutrophils # Seg Neutrophils # Man PT INR POC ABG pH 7.454 H POC ABG pCO2 POC ABG pO2 75 L Sodium Potassium Chloride Carbon Dioxide BUN Creatinine Glucose POC Glucose 59 L Lactic Acid Calcium Magnesium Total Bilirubin AST ALT Alkaline Phosphatase Ammonia Troponin T C-Reactive Protein Total Protein Albumin Prealbumin TSH 5.220 H Crossmatch 09/09/16 09/09/16 09/09/16 18:10 18:10 18:42 WBC 17.0 H RBC 2.90 L Hgb 8.5 L Hct 26.1 L MCV MCH MCHC RDW 17.9 H Plt Count 126 L Seg Neutrophils % Seg Neuts % (Manual) Nucleated RBC % Seg Neutrophils # Seg Neutrophils # Man PT INR POC ABG pH POC ABG pCO2 POC ABG pO2 Sodium Potassium Chloride Carbon Dioxide BUN 36 H Creatinine Glucose 133 H POC Glucose 148 H Lactic Acid Calcium 6.9 L Magnesium Total Bilirubin AST 253 H ALT 184 H Alkaline Phosphatase 729 H Ammonia Troponin T C-Reactive Protein Total Protein 5.1 L Albumin 1.7 L Prealbumin TSH Crossmatch 09/09/16 09/10/16 09/10/16 23:22 05:10 11:43 WBC RBC Hgb Hct MCV MCH MCHC RDW Plt Count Seg Neutrophils % Seg Neuts % (Manual) Nucleated RBC % Seg Neutrophils # Seg Neutrophils # Man PT INR POC ABG pH POC ABG pCO2 POC ABG pO2 Sodium Potassium Chloride Carbon Dioxide BUN 35 H Creatinine Glucose 240 H POC Glucose 170 H 268 H Lactic Acid Calcium 6.8 L Magnesium Total Bilirubin AST 226 H ALT 171 H Alkaline Phosphatase 710 H Ammonia Troponin T C-Reactive Protein Total Protein 5.2 L Albumin 1.7 L Prealbumin TSH Crossmatch 09/10/16 09/11/16 09/11/16 17:51 01:07 05:00 WBC RBC Hgb Hct MCV MCH MCHC RDW Plt Count Seg Neutrophils % Seg Neuts % (Manual) Nucleated RBC % Seg Neutrophils # Seg Neutrophils # Man PT INR POC ABG pH POC ABG pCO2 POC ABG pO2 Sodium Potassium 2.9 L* Chloride Carbon Dioxide BUN 35 H Creatinine Glucose 274 H POC Glucose 334 H 223 H Lactic Acid Calcium 6.9 L Magnesium Total Bilirubin AST 167 H ALT 145 H Alkaline Phosphatase 631 H Ammonia Troponin T C-Reactive Protein Total Protein 5.1 L Albumin 1.6 L Prealbumin TSH Crossmatch 09/11/16 09/11/16 09/11/16 05:01 12:16 17:12 WBC RBC Hgb Hct MCV MCH MCHC RDW Plt Count Seg Neutrophils % Seg Neuts % (Manual) Nucleated RBC % Seg Neutrophils # Seg Neutrophils # Man PT INR POC ABG pH POC ABG pCO2 POC ABG pO2 Sodium Potassium Chloride Carbon Dioxide BUN Creatinine Glucose POC Glucose 305 H 219 H 171 H Lactic Acid Calcium Magnesium Total Bilirubin AST ALT Alkaline Phosphatase Ammonia Troponin T C-Reactive Protein Total Protein Albumin Prealbumin TSH Crossmatch 09/11/16 09/12/16 09/12/16 23:35 03:33 05:00 WBC 12.9 H RBC 2.81 L Hgb 8.2 L Hct 25.4 L MCV MCH MCHC RDW 17.9 H Plt Count Seg Neutrophils % Seg Neuts % (Manual) Nucleated RBC % Seg Neutrophils # Seg Neutrophils # Man PT INR POC ABG pH POC ABG pCO2 POC ABG pO2 Sodium Potassium Chloride Carbon Dioxide BUN Creatinine Glucose POC Glucose 216 H 183 H Lactic Acid Calcium Magnesium Total Bilirubin AST ALT Alkaline Phosphatase Ammonia Troponin T C-Reactive Protein Total Protein Albumin Prealbumin TSH Crossmatch 09/12/16 09/12/16 09/12/16 05:00 15:15 18:30 WBC RBC Hgb Hct MCV MCH MCHC RDW Plt Count Seg Neutrophils % Seg Neuts % (Manual) Nucleated RBC % Seg Neutrophils # Seg Neutrophils # Man PT INR POC ABG pH POC ABG pCO2 POC ABG pO2 Sodium Potassium 3.0 L 3.4 L Chloride Carbon Dioxide BUN 33 H Creatinine 0.5 L Glucose POC Glucose 215 H Lactic Acid Calcium 7.0 L Magnesium Total Bilirubin AST ALT Alkaline Phosphatase Ammonia Troponin T C-Reactive Protein Total Protein Albumin Prealbumin TSH Crossmatch 09/12/16 09/13/16 09/13/16 23:17 05:50 05:50 WBC RBC 2.93 L Hgb 8.8 L Hct 26.7 L MCV MCH MCHC RDW 18.0 H Plt Count Seg Neutrophils % Seg Neuts % (Manual) Nucleated RBC % Seg Neutrophils # Seg Neutrophils # Man PT INR POC ABG pH POC ABG pCO2 POC ABG pO2 Sodium Potassium 2.6 L* D Chloride Carbon Dioxide BUN 29 H Creatinine 0.5 L Glucose 106 H POC Glucose 155 H Lactic Acid Calcium 7.3 L Magnesium Total Bilirubin AST ALT Alkaline Phosphatase Ammonia Troponin T C-Reactive Protein Total Protein Albumin Prealbumin TSH Crossmatch 09/13/16 09/13/16 09/13/16 05:53 11:43 15:07 WBC RBC Hgb Hct MCV MCH MCHC RDW Plt Count Seg Neutrophils % Seg Neuts % (Manual) Nucleated RBC % Seg Neutrophils # Seg Neutrophils # Man PT INR POC ABG pH POC ABG pCO2 POC ABG pO2 Sodium Potassium 2.8 L* Chloride Carbon Dioxide BUN Creatinine Glucose POC Glucose 119 H 129 H Lactic Acid Calcium Magnesium Total Bilirubin AST ALT Alkaline Phosphatase Ammonia Troponin T C-Reactive Protein Total Protein Albumin Prealbumin TSH Crossmatch 09/13/16 09/13/16 09/14/16 17:39 23:30 05:34 WBC RBC Hgb Hct MCV MCH MCHC RDW Plt Count Seg Neutrophils % Seg Neuts % (Manual) Nucleated RBC % Seg Neutrophils # Seg Neutrophils # Man PT INR POC ABG pH POC ABG pCO2 POC ABG pO2 Sodium Potassium Chloride Carbon Dioxide BUN Creatinine Glucose POC Glucose 144 H 196 H 175 H Lactic Acid Calcium Magnesium Total Bilirubin AST ALT Alkaline Phosphatase Ammonia Troponin T C-Reactive Protein Total Protein Albumin Prealbumin TSH Crossmatch 09/14/16 09/14/16 09/14/16 06:24 06:24 12:41 WBC RBC 2.82 L Hgb 8.4 L Hct 25.7 L MCV MCH MCHC RDW 18.0 H Plt Count Seg Neutrophils % Seg Neuts % (Manual) Nucleated RBC % Seg Neutrophils # Seg Neutrophils # Man PT INR POC ABG pH POC ABG pCO2 POC ABG pO2 Sodium Potassium 2.9 L* Chloride 107.3 H Carbon Dioxide BUN 26 H Creatinine 0.4 L Glucose 169 H POC Glucose 184 H Lactic Acid Calcium 7.5 L Magnesium Total Bilirubin AST ALT Alkaline Phosphatase Ammonia Troponin T C-Reactive Protein Total Protein Albumin Prealbumin TSH Crossmatch 09/14/16 09/14/16 09/14/16 14:50 17:57 23:34 WBC RBC Hgb Hct MCV MCH MCHC RDW Plt Count Seg Neutrophils % Seg Neuts % (Manual) Nucleated RBC % Seg Neutrophils # Seg Neutrophils # Man PT INR POC ABG pH POC ABG pCO2 POC ABG pO2 Sodium Potassium 3.3 L Chloride Carbon Dioxide BUN Creatinine Glucose POC Glucose 191 H 178 H Lactic Acid Calcium Magnesium Total Bilirubin AST ALT Alkaline Phosphatase Ammonia Troponin T C-Reactive Protein Total Protein Albumin Prealbumin TSH Crossmatch 09/15/16 09/15/16 09/15/16 05:02 07:57 07:57 WBC RBC 3.04 L Hgb 9.2 L Hct 28.2 L MCV MCH MCHC RDW 18.8 H Plt Count Seg Neutrophils % Seg Neuts % (Manual) Nucleated RBC % Seg Neutrophils # Seg Neutrophils # Man PT INR POC ABG pH POC ABG pCO2 POC ABG pO2 Sodium Potassium Chloride 107.2 H Carbon Dioxide BUN 26 H Creatinine 0.4 L Glucose 160 H POC Glucose 192 H Lactic Acid Calcium 7.7 L Magnesium Total Bilirubin AST ALT Alkaline Phosphatase Ammonia Troponin T C-Reactive Protein Total Protein Albumin Prealbumin TSH Crossmatch 09/15/16 09/15/16 09/15/16 11:23 17:51 23:45 WBC RBC Hgb Hct MCV MCH MCHC RDW Plt Count Seg Neutrophils % Seg Neuts % (Manual) Nucleated RBC % Seg Neutrophils # Seg Neutrophils # Man PT INR POC ABG pH POC ABG pCO2 POC ABG pO2 Sodium Potassium Chloride Carbon Dioxide BUN Creatinine Glucose POC Glucose 232 H 240 H 251 H Lactic Acid Calcium Magnesium Total Bilirubin AST ALT Alkaline Phosphatase Ammonia Troponin T C-Reactive Protein Total Protein Albumin Prealbumin TSH Crossmatch 09/16/16 09/16/16 09/16/16 04:55 04:55 05:38 WBC RBC 2.84 L Hgb 8.6 L Hct 26.2 L MCV MCH MCHC RDW 18.8 H Plt Count Seg Neutrophils % Seg Neuts % (Manual) Nucleated RBC % Seg Neutrophils # Seg Neutrophils # Man PT INR POC ABG pH POC ABG pCO2 POC ABG pO2 Sodium Potassium 3.1 L Chloride 107.6 H Carbon Dioxide BUN 25 H Creatinine 0.3 L Glucose 134 H POC Glucose 157 H Lactic Acid Calcium 7.6 L Magnesium Total Bilirubin AST ALT Alkaline Phosphatase Ammonia Troponin T C-Reactive Protein Total Protein Albumin Prealbumin TSH Crossmatch 09/16/16 09/16/16 09/16/16 11:53 17:56 23:54 WBC RBC Hgb Hct MCV MCH MCHC RDW Plt Count Seg Neutrophils % Seg Neuts % (Manual) Nucleated RBC % Seg Neutrophils # Seg Neutrophils # Man PT INR POC ABG pH POC ABG pCO2 POC ABG pO2 Sodium Potassium Chloride Carbon Dioxide BUN Creatinine Glucose POC Glucose 137 H 138 H 179 H Lactic Acid Calcium Magnesium Total Bilirubin AST ALT Alkaline Phosphatase Ammonia Troponin T C-Reactive Protein Total Protein Albumin Prealbumin TSH Crossmatch 09/17/16 09/17/16 09/17/16 05:00 05:00 05:28 WBC RBC 2.77 L Hgb 8.2 L Hct 25.9 L MCV MCH MCHC RDW 19.1 H Plt Count Seg Neutrophils % Seg Neuts % (Manual) Nucleated RBC % Seg Neutrophils # Seg Neutrophils # Man PT INR POC ABG pH POC ABG pCO2 POC ABG pO2 Sodium Potassium 3.5 L Chloride 108.4 H Carbon Dioxide BUN 29 H Creatinine 0.3 L Glucose 117 H POC Glucose 142 H Lactic Acid Calcium 7.4 L Magnesium Total Bilirubin AST ALT Alkaline Phosphatase Ammonia Troponin T C-Reactive Protein Total Protein Albumin Prealbumin TSH Crossmatch 09/17/16 09/17/16 09/18/16 18:07 23:31 06:29 WBC RBC Hgb Hct MCV MCH MCHC RDW Plt Count Seg Neutrophils % Seg Neuts % (Manual) Nucleated RBC % Seg Neutrophils # Seg Neutrophils # Man PT INR POC ABG pH POC ABG pCO2 POC ABG pO2 Sodium Potassium Chloride Carbon Dioxide BUN Creatinine Glucose POC Glucose 173 H 240 H 282 H Lactic Acid Calcium Magnesium Total Bilirubin AST ALT Alkaline Phosphatase Ammonia Troponin T C-Reactive Protein Total Protein Albumin Prealbumin TSH Crossmatch 09/18/16 09/18/16 09/18/16 06:30 12:21 17:55 WBC RBC Hgb Hct MCV MCH MCHC RDW Plt Count Seg Neutrophils % Seg Neuts % (Manual) Nucleated RBC % Seg Neutrophils # Seg Neutrophils # Man PT INR POC ABG pH POC ABG pCO2 POC ABG pO2 Sodium 148 H Potassium Chloride 110.7 H Carbon Dioxide BUN 30 H Creatinine 0.4 L Glucose 249 H POC Glucose 248 H 255 H Lactic Acid Calcium 7.4 L Magnesium 1.60 L Total Bilirubin AST ALT Alkaline Phosphatase Ammonia Troponin T C-Reactive Protein Total Protein Albumin Prealbumin TSH Crossmatch 09/19/16 09/19/16 09/19/16 00:09 04:45 05:11 WBC RBC Hgb Hct MCV MCH MCHC RDW Plt Count Seg Neutrophils % Seg Neuts % (Manual) Nucleated RBC % Seg Neutrophils # Seg Neutrophils # Man PT INR POC ABG pH POC ABG pCO2 POC ABG pO2 Sodium 146 H Potassium Chloride 110.8 H Carbon Dioxide BUN 34 H Creatinine 0.4 L Glucose 278 H POC Glucose 324 H 278 H Lactic Acid Calcium 7.3 L Magnesium Total Bilirubin AST ALT Alkaline Phosphatase Ammonia Troponin T C-Reactive Protein Total Protein Albumin Prealbumin TSH Crossmatch 09/19/16 09/19/16 09/19/16 11:12 12:09 17:10 WBC RBC Hgb Hct MCV MCH MCHC RDW Plt Count Seg Neutrophils % Seg Neuts % (Manual) Nucleated RBC % Seg Neutrophils # Seg Neutrophils # Man PT INR POC ABG pH POC ABG pCO2 POC ABG pO2 Sodium Potassium Chloride Carbon Dioxide BUN Creatinine Glucose POC Glucose 306 H 225 H 329 H Lactic Acid Calcium Magnesium Total Bilirubin AST ALT Alkaline Phosphatase Ammonia Troponin T C-Reactive Protein Total Protein Albumin Prealbumin TSH Crossmatch 09/19/16 09/20/16 09/20/16 23:34 04:52 05:00 WBC RBC Hgb Hct MCV MCH MCHC RDW Plt Count Seg Neutrophils % Seg Neuts % (Manual) Nucleated RBC % Seg Neutrophils # Seg Neutrophils # Man PT INR POC ABG pH POC ABG pCO2 POC ABG pO2 Sodium Potassium Chloride 108.6 H Carbon Dioxide BUN 35 H Creatinine 0.4 L Glucose 370 H POC Glucose 376 H 374 H Lactic Acid Calcium 7.3 L Magnesium Total Bilirubin AST ALT Alkaline Phosphatase Ammonia Troponin T C-Reactive Protein Total Protein Albumin Prealbumin TSH Crossmatch 09/20/16 09/20/16 09/20/16 11:18 17:39 23:49 WBC RBC Hgb Hct MCV MCH MCHC RDW Plt Count Seg Neutrophils % Seg Neuts % (Manual) Nucleated RBC % Seg Neutrophils # Seg Neutrophils # Man PT INR POC ABG pH POC ABG pCO2 POC ABG pO2 Sodium Potassium Chloride Carbon Dioxide BUN Creatinine Glucose POC Glucose 342 H 416 H 440 H Lactic Acid Calcium Magnesium Total Bilirubin AST ALT Alkaline Phosphatase Ammonia Troponin T C-Reactive Protein Total Protein Albumin Prealbumin TSH Crossmatch 09/21/16 09/21/16 09/21/16 04:58 05:15 05:15 WBC RBC 1.48 L Hgb 4.6 L* Hct 14.9 L* MCV 100 H MCH MCHC RDW 25.4 H Plt Count Seg Neutrophils % Seg Neuts % (Manual) Nucleated RBC % Seg Neutrophils # Seg Neutrophils # Man PT INR POC ABG pH POC ABG pCO2 POC ABG pO2 Sodium Potassium Chloride 107.5 H Carbon Dioxide 20 L BUN 45 H Creatinine 0.6 L Glucose 490 H POC Glucose > 500 H Lactic Acid Calcium 7.0 L Magnesium Total Bilirubin AST ALT Alkaline Phosphatase Ammonia Troponin T C-Reactive Protein Total Protein Albumin Prealbumin TSH Crossmatch 09/21/16 09/21/16 09/21/16 08:20 09:17 12:09 WBC RBC Hgb Hct MCV MCH MCHC RDW Plt Count Seg Neutrophils % Seg Neuts % (Manual) Nucleated RBC % Seg Neutrophils # Seg Neutrophils # Man PT INR POC ABG pH 7.464 H POC ABG pCO2 29.3 L POC ABG pO2 198 H Sodium Potassium Chloride Carbon Dioxide BUN Creatinine Glucose POC Glucose 248 H Lactic Acid Calcium Magnesium Total Bilirubin AST ALT Alkaline Phosphatase Ammonia Troponin T C-Reactive Protein Total Protein Albumin Prealbumin TSH Crossmatch See Detail 09/21/16 09/21/16 09/21/16 15:21 17:36 18:49 WBC RBC Hgb Hct MCV MCH MCHC RDW Plt Count Seg Neutrophils % Seg Neuts % (Manual) Nucleated RBC % Seg Neutrophils # Seg Neutrophils # Man PT INR POC ABG pH POC ABG pCO2 POC ABG pO2 Sodium Potassium Chloride Carbon Dioxide BUN Creatinine Glucose POC Glucose 403 H 437 H 482 H Lactic Acid Calcium Magnesium Total Bilirubin AST ALT Alkaline Phosphatase Ammonia Troponin T C-Reactive Protein Total Protein Albumin Prealbumin TSH Crossmatch 09/21/16 09/22/16 09/22/16 23:29 00:00 01:29 WBC 14.8 H RBC 2.94 L Hgb 9.1 L D Hct 27.5 L D MCV MCH MCHC RDW 16.7 H Plt Count Seg Neutrophils % Seg Neuts % (Manual) Nucleated RBC % Seg Neutrophils # Seg Neutrophils # Man PT INR POC ABG pH POC ABG pCO2 POC ABG pO2 Sodium Potassium Chloride Carbon Dioxide BUN Creatinine Glucose POC Glucose 311 H 288 H Lactic Acid Calcium Magnesium Total Bilirubin AST ALT Alkaline Phosphatase Ammonia Troponin T C-Reactive Protein Total Protein Albumin Prealbumin TSH Crossmatch 09/22/16 09/22/16 09/22/16 02:29 03:12 03:26 WBC RBC Hgb Hct MCV MCH MCHC RDW Plt Count Seg Neutrophils % Seg Neuts % (Manual) Nucleated RBC % Seg Neutrophils # Seg Neutrophils # Man PT INR POC ABG pH 7.460 H POC ABG pCO2 29.9 L POC ABG pO2 112 H Sodium Potassium Chloride Carbon Dioxide BUN Creatinine Glucose POC Glucose 261 H 239 H Lactic Acid Calcium Magnesium Total Bilirubin AST ALT Alkaline Phosphatase Ammonia Troponin T C-Reactive Protein Total Protein Albumin Prealbumin TSH Crossmatch 09/22/16 09/22/16 09/22/16 05:35 06:40 06:40 WBC 13.5 H RBC 3.18 L Hgb 9.5 L Hct 28.8 L MCV MCH MCHC RDW 16.2 H Plt Count Seg Neutrophils % Seg Neuts % (Manual) Nucleated RBC % Seg Neutrophils # Seg Neutrophils # Man PT INR POC ABG pH POC ABG pCO2 POC ABG pO2 Sodium 147 H Potassium 3.2 L D Chloride 112.3 H Carbon Dioxide BUN 49 H Creatinine 0.6 L Glucose 102 H POC Glucose 181 H Lactic Acid Calcium 7.5 L Magnesium Total Bilirubin AST ALT Alkaline Phosphatase Ammonia Troponin T C-Reactive Protein Total Protein Albumin Prealbumin TSH Crossmatch 09/22/16 09/22/16 09/22/16 07:16 18:03 20:05 WBC RBC Hgb Hct MCV MCH MCHC RDW Plt Count Seg Neutrophils % Seg Neuts % (Manual) Nucleated RBC % Seg Neutrophils # Seg Neutrophils # Man PT INR POC ABG pH POC ABG pCO2 POC ABG pO2 Sodium Potassium Chloride Carbon Dioxide BUN Creatinine Glucose POC Glucose 152 H 115 H 107 H Lactic Acid Calcium Magnesium Total Bilirubin AST ALT Alkaline Phosphatase Ammonia Troponin T C-Reactive Protein Total Protein Albumin Prealbumin TSH Crossmatch 09/22/16 09/22/16 09/23/16 21:00 23:55 02:02 WBC 13.8 H RBC 3.04 L Hgb 9.2 L Hct 28.0 L MCV MCH MCHC RDW 16.2 H Plt Count Seg Neutrophils % Seg Neuts % (Manual) Nucleated RBC % Seg Neutrophils # Seg Neutrophils # Man PT INR POC ABG pH POC ABG pCO2 POC ABG pO2 Sodium Potassium Chloride Carbon Dioxide BUN Creatinine Glucose POC Glucose 133 H 110 H Lactic Acid Calcium Magnesium Total Bilirubin AST ALT Alkaline Phosphatase Ammonia Troponin T C-Reactive Protein Total Protein Albumin Prealbumin TSH Crossmatch 09/23/16 09/23/16 09/23/16 04:45 04:45 05:36 WBC 13.6 H RBC 2.86 L Hgb 8.6 L Hct 26.4 L MCV MCH MCHC RDW 17.1 H Plt Count Seg Neutrophils % Seg Neuts % (Manual) Nucleated RBC % Seg Neutrophils # Seg Neutrophils # Man PT INR POC ABG pH POC ABG pCO2 POC ABG pO2 Sodium Potassium Chloride 109.2 H Carbon Dioxide 21 L BUN 43 H Creatinine 0.5 L Glucose 152 H POC Glucose 133 H Lactic Acid Calcium 7.7 L Magnesium Total Bilirubin AST ALT Alkaline Phosphatase Ammonia Troponin T C-Reactive Protein Total Protein Albumin Prealbumin TSH Crossmatch 09/23/16 09/23/16 09/23/16 07:42 11:55 13:26 WBC RBC Hgb Hct MCV MCH MCHC RDW Plt Count Seg Neutrophils % Seg Neuts % (Manual) Nucleated RBC % Seg Neutrophils # Seg Neutrophils # Man PT INR POC ABG pH POC ABG pCO2 POC ABG pO2 Sodium Potassium Chloride Carbon Dioxide BUN Creatinine Glucose POC Glucose 175 H 170 H 195 H Lactic Acid Calcium Magnesium Total Bilirubin AST ALT Alkaline Phosphatase Ammonia Troponin T C-Reactive Protein Total Protein Albumin Prealbumin TSH Crossmatch 09/23/16 09/23/16 09/24/16 17:37 21:54 02:56 WBC RBC Hgb Hct MCV MCH MCHC RDW Plt Count Seg Neutrophils % Seg Neuts % (Manual) Nucleated RBC % Seg Neutrophils # Seg Neutrophils # Man PT INR POC ABG pH POC ABG pCO2 POC ABG pO2 Sodium Potassium Chloride Carbon Dioxide BUN Creatinine Glucose POC Glucose 182 H 184 H 187 H Lactic Acid Calcium Magnesium Total Bilirubin AST ALT Alkaline Phosphatase Ammonia Troponin T C-Reactive Protein Total Protein Albumin Prealbumin TSH Crossmatch 09/24/16 09/24/16 09/24/16 05:00 05:00 05:22 WBC RBC 2.82 L Hgb 8.8 L Hct 27.0 L MCV MCH MCHC RDW 17.2 H Plt Count Seg Neutrophils % Seg Neuts % (Manual) Nucleated RBC % Seg Neutrophils # Seg Neutrophils # Man PT INR POC ABG pH POC ABG pCO2 POC ABG pO2 Sodium 148 H Potassium Chloride 115.0 H Carbon Dioxide 21 L BUN 38 H Creatinine 0.6 L Glucose 163 H POC Glucose 194 H Lactic Acid Calcium 7.9 L Magnesium Total Bilirubin AST ALT Alkaline Phosphatase Ammonia Troponin T C-Reactive Protein Total Protein Albumin Prealbumin TSH Crossmatch 09/24/16 09/24/16 09/24/16 11:02 13:55 17:37 WBC RBC Hgb Hct MCV MCH MCHC RDW Plt Count Seg Neutrophils % Seg Neuts % (Manual) Nucleated RBC % Seg Neutrophils # Seg Neutrophils # Man PT INR POC ABG pH POC ABG pCO2 POC ABG pO2 Sodium Potassium Chloride Carbon Dioxide BUN Creatinine Glucose POC Glucose 210 H 182 H 169 H Lactic Acid Calcium Magnesium Total Bilirubin AST ALT Alkaline Phosphatase Ammonia Troponin T C-Reactive Protein Total Protein Albumin Prealbumin TSH Crossmatch 09/25/16 09/25/16 09/25/16 02:15 05:14 09:39 WBC RBC Hgb Hct MCV MCH MCHC RDW Plt Count Seg Neutrophils % Seg Neuts % (Manual) Nucleated RBC % Seg Neutrophils # Seg Neutrophils # Man PT INR POC ABG pH POC ABG pCO2 POC ABG pO2 Sodium Potassium Chloride Carbon Dioxide BUN Creatinine Glucose POC Glucose 139 H 151 H 184 H Lactic Acid Calcium Magnesium Total Bilirubin AST ALT Alkaline Phosphatase Ammonia Troponin T C-Reactive Protein Total Protein Albumin Prealbumin TSH Crossmatch 09/25/16 09/25/16 09/25/16 09:48 09:48 13:47 WBC RBC 2.76 L Hgb 8.7 L Hct 26.2 L MCV MCH MCHC RDW 17.3 H Plt Count Seg Neutrophils % Seg Neuts % (Manual) Nucleated RBC % Seg Neutrophils # Seg Neutrophils # Man PT INR POC ABG pH POC ABG pCO2 POC ABG pO2 Sodium 150 H Potassium Chloride 115.6 H Carbon Dioxide BUN 34 H Creatinine 0.4 L Glucose 168 H POC Glucose 167 H Lactic Acid Calcium 7.9 L Magnesium Total Bilirubin AST ALT Alkaline Phosphatase Ammonia Troponin T C-Reactive Protein Total Protein Albumin Prealbumin TSH Crossmatch 09/25/16 09/25/16 09/26/16 17:57 21:44 00:05 WBC RBC Hgb Hct MCV MCH MCHC RDW Plt Count Seg Neutrophils % Seg Neuts % (Manual) Nucleated RBC % Seg Neutrophils # Seg Neutrophils # Man PT INR POC ABG pH POC ABG pCO2 POC ABG pO2 Sodium Potassium Chloride Carbon Dioxide BUN Creatinine Glucose POC Glucose 206 H 188 H 188 H Lactic Acid Calcium Magnesium Total Bilirubin AST ALT Alkaline Phosphatase Ammonia Troponin T C-Reactive Protein Total Protein Albumin Prealbumin TSH Crossmatch 09/26/16 09/26/16 09/26/16 01:29 03:46 03:46 WBC RBC 2.76 L Hgb 8.6 L Hct 26.2 L MCV MCH MCHC RDW 18.2 H Plt Count Seg Neutrophils % Seg Neuts % (Manual) Nucleated RBC % Seg Neutrophils # Seg Neutrophils # Man PT INR POC ABG pH POC ABG pCO2 POC ABG pO2 Sodium 147 H Potassium Chloride 114.1 H Carbon Dioxide BUN 28 H Creatinine 0.4 L Glucose 172 H POC Glucose 198 H Lactic Acid Calcium 7.6 L Magnesium Total Bilirubin AST ALT Alkaline Phosphatase Ammonia Troponin T C-Reactive Protein Total Protein Albumin Prealbumin TSH Crossmatch 09/26/16 09/26/16 09/26/16 08:08 12:39 16:56 WBC RBC Hgb Hct MCV MCH MCHC RDW Plt Count Seg Neutrophils % Seg Neuts % (Manual) Nucleated RBC % Seg Neutrophils # Seg Neutrophils # Man PT INR POC ABG pH POC ABG pCO2 POC ABG pO2 Sodium Potassium Chloride Carbon Dioxide BUN Creatinine Glucose POC Glucose 161 H 176 H 128 H Lactic Acid Calcium Magnesium Total Bilirubin AST ALT Alkaline Phosphatase Ammonia Troponin T C-Reactive Protein Total Protein Albumin Prealbumin TSH Crossmatch 06/17/17 06/18/17 06/18/17 21:33 06:31 07:23 WBC RBC Hgb Hct MCV MCH MCHC RDW Plt Count Seg Neutrophils % Seg Neuts % (Manual) Nucleated RBC % Seg Neutrophils # Seg Neutrophils # Man PT INR POC ABG pH POC ABG pCO2 POC ABG pO2 Sodium Potassium Chloride Carbon Dioxide BUN Creatinine Glucose POC Glucose 120 H 209 H 173 H Lactic Acid Calcium Magnesium Total Bilirubin AST ALT Alkaline Phosphatase Ammonia Troponin T C-Reactive Protein Total Protein Albumin Prealbumin TSH Crossmatch 09/27/16 09/27/16 09/27/16 11:31 17:22 20:41 WBC RBC Hgb Hct MCV MCH MCHC RDW Plt Count Seg Neutrophils % Seg Neuts % (Manual) Nucleated RBC % Seg Neutrophils # Seg Neutrophils # Man PT INR POC ABG pH POC ABG pCO2 POC ABG pO2 Sodium Potassium Chloride Carbon Dioxide BUN Creatinine Glucose POC Glucose 185 H 167 H 185 H Lactic Acid Calcium Magnesium Total Bilirubin AST ALT Alkaline Phosphatase Ammonia Troponin T C-Reactive Protein Total Protein Albumin Prealbumin TSH Crossmatch 09/28/16 09/28/16 09/28/16 00:30 04:00 04:00 WBC RBC 3.00 L Hgb 9.4 L Hct 28.7 L MCV MCH MCHC RDW 19.1 H Plt Count Seg Neutrophils % Seg Neuts % (Manual) Nucleated RBC % Seg Neutrophils # Seg Neutrophils # Man PT INR POC ABG pH POC ABG pCO2 POC ABG pO2 Sodium Potassium Chloride 110.5 H Carbon Dioxide BUN 24 H Creatinine 0.3 L Glucose 214 H POC Glucose 159 H Lactic Acid Calcium 7.9 L Magnesium Total Bilirubin AST ALT Alkaline Phosphatase Ammonia Troponin T C-Reactive Protein Total Protein Albumin Prealbumin TSH Crossmatch 09/28/16 09/28/16 09/28/16 04:12 09:58 15:15 WBC RBC Hgb Hct MCV MCH MCHC RDW Plt Count Seg Neutrophils % Seg Neuts % (Manual) Nucleated RBC % Seg Neutrophils # Seg Neutrophils # Man PT INR POC ABG pH POC ABG pCO2 POC ABG pO2 Sodium Potassium Chloride Carbon Dioxide BUN Creatinine Glucose POC Glucose 209 H 191 H 162 H Lactic Acid Calcium Magnesium Total Bilirubin AST ALT Alkaline Phosphatase Ammonia Troponin T C-Reactive Protein Total Protein Albumin Prealbumin TSH Crossmatch 09/28/16 09/28/16 09/29/16 17:58 21:38 02:38 WBC RBC Hgb Hct MCV MCH MCHC RDW Plt Count Seg Neutrophils % Seg Neuts % (Manual) Nucleated RBC % Seg Neutrophils # Seg Neutrophils # Man PT INR POC ABG pH POC ABG pCO2 POC ABG pO2 Sodium Potassium Chloride Carbon Dioxide BUN Creatinine Glucose POC Glucose 174 H 162 H 180 H Lactic Acid Calcium Magnesium Total Bilirubin AST ALT Alkaline Phosphatase Ammonia Troponin T C-Reactive Protein Total Protein Albumin Prealbumin TSH Crossmatch 09/29/16 05:16 WBC RBC Hgb Hct MCV MCH MCHC RDW Plt Count Seg Neutrophils % Seg Neuts % (Manual) Nucleated RBC % Seg Neutrophils # Seg Neutrophils # Man PT INR POC ABG pH POC ABG pCO2 POC ABG pO2 Sodium Potassium Chloride Carbon Dioxide BUN Creatinine Glucose POC Glucose 152 H Lactic Acid Calcium Magnesium Total Bilirubin AST ALT Alkaline Phosphatase Ammonia Troponin T C-Reactive Protein Total Protein Albumin Prealbumin TSH Crossmatch Allied health notes reviewed: RT
[2016-09-29] MEDS: PROTONIX PO SCH (10:19)
[2016-09-29] MEDS: KEPPRA PO SCH ×2 (10:19→21:31)
[2016-09-29] MEDS: FERROUS SULFATE PO SCH (10:19)
[2016-09-29] MEDS: SYNTHROID PO SCH (10:19)
[2016-09-29] MEDS: FOLVITE PO SCH (10:19)
[2016-09-29] MEDS: POTASSIUM CHLORIDE FEEDTUBE SCH (10:20)
[2016-09-29] MEDS: LASIX IV SCH (10:20)
[2016-09-29] MEDS: LEVEMIR SUB-Q SCH (10:27)
--- NOTE | 2016-09-29 12:27 | Progress Note ---
Assessment and Plan - Patient Problems (1) Respiratory failure Current Visit: Yes Status: Acute Qualifiers: Chronicity: C Respiratory failure complication: R Plan to address problem: Trach and PEG tentatively scheduled for this if patient remains stable Subjective Date of service: 09/29/16 Patient Reports: Positive: other (on vent) Objective Vital Signs - 12hr 09/29/16 09/29/16 09/29/16 00:30 01:00 01:30 Temperature Pulse Rate 78 75 83 Pulse Rate [ Anterior Bilateral Throughout] Pulse Rate [ From Monitor] Respiratory 15 24 16 Rate Respiratory Rate [Anterior Bilateral Throughout] Blood Pressure 108/41 109/44 110/41 O2 Sat by Pulse 98 98 99 Oximetry 09/29/16 09/29/16 09/29/16 01:40 01:55 02:00 Temperature Pulse Rate 80 Pulse Rate [ 95 H 97 H Anterior Bilateral Throughout] Pulse Rate [ From Monitor] Respiratory 26 H Rate Respiratory 25 H 25 H Rate [Anterior Bilateral Throughout] Blood Pressure 93/39 O2 Sat by Pulse 98 Oximetry 09/29/16 09/29/16 09/29/16 02:30 03:01 03:31 Temperature Pulse Rate 82 97 H 90 Pulse Rate [ Anterior Bilateral Throughout] Pulse Rate [ From Monitor] Respiratory 26 H 30 H 32 H Rate Respiratory Rate [Anterior Bilateral Throughout] Blood Pressure 95/41 132/40 125/44 O2 Sat by Pulse 99 98 99 Oximetry 09/29/16 09/29/16 09/29/16 04:00 04:31 05:01 Temperature 98.7 F Pulse Rate 80 98 H 79 Pulse Rate [ Anterior Bilateral Throughout] Pulse Rate [ 80 From Monitor] Respiratory 26 H 31 H Rate Respiratory Rate [Anterior Bilateral Throughout] Blood Pressure 103/48 121/80 118/74 O2 Sat by Pulse 100 99 97 Oximetry 09/29/16 09/29/16 09/29/16 05:31 05:34 06:00 Temperature Pulse Rate 80 79 65 Pulse Rate [ Anterior Bilateral Throughout] Pulse Rate [ From Monitor] Respiratory 31 H 25 H Rate Respiratory Rate [Anterior Bilateral Throughout] Blood Pressure 172/145 118/74 94/41 O2 Sat by Pulse 97 99 Oximetry 09/29/16 09/29/16 09/29/16 06:30 07:00 07:30 Temperature Pulse Rate 67 68 73 Pulse Rate [ Anterior Bilateral Throughout] Pulse Rate [ From Monitor] Respiratory 25 H 25 H 25 H Rate Respiratory Rate [Anterior Bilateral Throughout] Blood Pressure 73/32 77/33 102/50 O2 Sat by Pulse 98 98 99 Oximetry 09/29/16 09/29/16 09/29/16 08:00 08:30 09:00 Temperature 98.2 F Pulse Rate 70 67 69 Pulse Rate [ Anterior Bilateral Throughout] Pulse Rate [ 74 From Monitor] Respiratory 25 H 25 H 24 Rate Respiratory Rate [Anterior Bilateral Throughout] Blood Pressure 101/38 93/39 110/44 O2 Sat by Pulse 99 99 99 Oximetry 09/29/16 09/29/16 09/29/16 09:10 09:30 10:00 Temperature Pulse Rate 75 82 Pulse Rate [ Anterior Bilateral Throughout] Pulse Rate [ From Monitor] Respiratory 25 H 15 Rate Respiratory Rate [Anterior Bilateral Throughout] Blood Pressure 110/44 113/48 O2 Sat by Pulse 99 100 Oximetry 09/29/16 09/29/16 09/29/16 10:01 10:31 11:01 Temperature Pulse Rate 84 74 89 Pulse Rate [ Anterior Bilateral Throughout] Pulse Rate [ From Monitor] Respiratory 28 H 27 H 28 H Rate Respiratory Rate [Anterior Bilateral Throughout] Blood Pressure 113/48 101/49 111/42 O2 Sat by Pulse 99 98 97 Oximetry 09/29/16 09/29/16 09/29/16 11:30 11:45 11:59 Temperature Pulse Rate 76 82 Pulse Rate [ Anterior Bilateral Throughout] Pulse Rate [ 84 From Monitor] Respiratory 29 H 29 H Rate Respiratory Rate [Anterior Bilateral Throughout] Blood Pressure 94/38 94/38 O2 Sat by Pulse 96 100 Oximetry 09/29/16 12:00 Temperature Pulse Rate 87 Pulse Rate [ Anterior Bilateral Throughout] Pulse Rate [ From Monitor] Respiratory 33 H Rate Respiratory Rate [Anterior Bilateral Throughout] Blood Pressure 99/56 O2 Sat by Pulse 100 Oximetry - General physical appearance no distress - Neck trachea midline - Abdomen soft - Labs 09/28/16 04:00 09/28/16 04:00
[2016-09-29] MEDS ORDERED: NACL 0.9% 1000 ML 1,000 ML ONE (15:18)
[2016-09-29] MEDS ORDERED: CORDARONE IV ONE ×2 (15:31→16:00)
[2016-09-29] MEDS ORDERED: DULCOLAX PR PRN (15:41)
[2016-09-29] MEDS ORDERED: MILK OF MAGNESIA PO PRN (15:49)
[2016-09-29] MEDS ORDERED: PROVENTIL IH PRN (15:50)
[2016-09-29] MEDS ORDERED: TYLENOL PO PRN (15:51)
[2016-09-29] MEDS ORDERED: D5W IV ONE (16:00)
[2016-09-29] MEDS ORDERED: NACL 0.9% 500 ML 500 ML IV ONE ×2 (16:00→16:38)
[2016-09-29] MEDS ORDERED: LEVOPHED DRIP 4 MG/NS 250 ML 4 MG/250 ML BAG IV SCH (16:00)
--- NOTE | 2016-09-29 16:48 | Progress Note ---
Assessment and Plan Assessment and plan: Patient is a 61-year-old morbid obese woman with a history of congestive heart failure, severe protein calorie malnutrition (bilateral orthodox muscle severe wasting, hypothenar muscle wasting) with BMI of 81.6, functional quadriplegia, type 2 diabetes mellitus, hypertension, multiple skin breakdown between legs and thighs who presented to the hospital via EMS with AMS. 2D echocardiogram with ejection fraction of 50-55%. During the past admission, patient was recommended for placement but refused. On presentation to ED, patient was felt to be unable to maintain her airways and intubated the ER since 08/29/16. 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, poa: supportative care -Acute on chronic diastolic congestive heart failure: treated with diuresis -Acute on chronic respiratory failure, intubated > 96 hours -Septic shock off IV solucorticef and midodrine -Severe anemia s/p blood transfusion: monitor cbc closely altered -Paroxysmal atrial fibrillation -Non-ST elevated VT type 2: Conservative management -Acute on chronic kidney disease III, likely secondary to vasomotor nephropathy- POA -Transaminitis-elevated alkaline phosphatase and AST: continue to monitor -Severe protein calorie malnutrition albumin 1.2 -Morbid obesity BMI 81.6 -Mulitple PRESSURE ULCERS-POA: consulted wound care -uncontrolled dm: increased ssi -Acute anemia with drop in HCT s/p 5 units of PRBC transfused so far. Ordered 2 more units. -Levaphed restarted last night 09/20/16 -Unable to get CT head due to weight issues -Dvt prophylaxis: scd only due to the anemia Disposition: LTAC declined, case management is working on plan DNR 09/04/16 , boyfriendTad agreed to blood transfusion, hgb is 6.0 will transfuse 2 units==>h/h steady, continue to monitor 09/05/16: Overnight was very eventful. New issue: Status epilepticus most likely due to anoxic brain injury, poa. She is back on 8 mcg of Levophed, which had weaned off up to the point of seizure activity Patient had status epilepticus before receiving blood transfusions. She was given multiple doses of Ativan and was still having breakthrough seizures. She was given phenobarbital and Dilantin but still having seizures. I started propofol drip which is helping. She still on IV Ativan drip also. Difficult family dynamics: Her son (she has multiple children), Srikanth and sister Leanne were at her bedside and well as her boyfriend who is not her legal , which he told me. They are upset because they didn't know patient was in the hospital. It appears the gentleman in the room is her boyfriend and not her legal He also did not notify the family the patient was here. That gentleman who is her boyfriend dropped the patient's wallet and our security called the number inside the wallet which was patient's mother's number and this is how the family found out that patient was in the hospital. I was told by RN, that patient has no , patient has 7 siblings and they are estranged from mother. No legal POA but sister Leanne is active in sister's life. Her boyfriend name is Tad Vieyra and he has consistently been at her beside, holding her hand and being supportive. 09/10/16 (resumed care): Trying to get to LTAC, still on 2 mcg of Levaphed but not sedated==>?Significant anoxic brain injury most likely poa, Ethic committee consulted because some family members want to withdraw. 09/11/16, Trach aspirated GNR, continue abx pending identification, off levaphed today. Trying to get to LTAC, they can trach her there. Only [facility] takes her insurance 09/12/16 Trach aspirate still pending, new issue of hypothermia, responded to [facility], tube feeding low rate due to high residuals, abd xray unremarkable. Potassium replaced. No restraints needs, no sedation needed, poor prognosis 09/15/16(resumed care): new issue seizure, gave 1mg iv ativan x 1. Awaiting to go to [facility], they want to trach and peg when she gets there. 09/16-11/26: cpm, no new seizures. 09/18/16: [facility] did not accept patient, so trach and peg here. Patient has been intubated since 08/29/16. 09/19/16 no new issue, trying to wean 09/20/16: d/w boyfriend at bedside. He believes she is having purposefully spontaneous movements, like blinking. Heart rate went up to 150s but spontaneously went down without any medications given. 09/21/16: Overnight she became hypotensive, Levophed drip restarted at 12mcg, hgb found to be 4.6, blood transfusions ordered, hyperglycemic worse, so Levemir increased, She has apneic breathing on vent, POOR sign, anticipate w/in 48 hours because she will tire out. 09/29/16 Resumed care of Ms. Ashley, she is currently tachycardiac, HR 200s and SBP 70s. She has SVT. Ordered Amiodarone 300mg iv x 1 bolus and nss bolus 500ml and bp improved. Once bolus stopped sbp dropped below 90 again so gave another 500ml ns bolus x 1. Amiodrone iv bolus still pending. Reconsulted Cardiology. He had twitches are back. Given iv ativan last night. Start Amiodarone drip after. May need to re-start Levophed. I have kindly asked nurse to notify CCM also. Patient has lost approximately 85 lbs, hopefully [facility] will re- consider. I believe the seizures are manifestation of anoxic brain injury, poa. Surgeron considering peg/trach on . CCT 40 minutes History Interval history: Patient seen and examined. Follow up on respiratory failure. Patient still intubated. Overnight, bp dropped, Levophed restarted. Tad at bedside Hospitalist Physical - Physical exam Narrative exam: GEN: Critically ill, morbid obese BMI 81.6, intubated, apneic breathing HEENT: Pupils are pinpoint and reactive, ET tube in place NECK: SUPPLE, NO THYROMEGALY, NO JVD, NO LAD CVS: regular irregular NORMAL S1S2 LUNGS/CHEST: TA B, NORMAL CHEST EXPANSION B, GOOD AIR ENTRY B ABD: SOFT, NONDISTENDED GBS, NO REBOUND OR GUARDING NEURO: CN 2-12 GROSSLY INTACT, doesn't follow commands PSY: Comatose - Constitutional Vitals: Temp Pulse Resp BP Pulse Ox 97.4 F L 128 H 24 79/44 100 09/29/16 16:00 09/29/16 16:00 09/29/16 16:00 09/29/16 16:00 09/29/16 16:00 General appearance: Present: no acute distress, obese Results - Labs CBC & Chem 7: 09/28/16 04:00 09/28/16 04:00 Labs: Laboratory Last Values WBC 7.8 K/mm3 (4.5-11.0) 09/28/16 04:00 RBC 3.00 M/mm3 (3.65-5.03) L 09/28/16 04:00 Hgb 9.4 gm/dl (10.1-14.3) L 09/28/16 04:00 Hct 28.7 % (30.3-42.9) L 09/28/16 04:00 MCV 96 fl (79-97) 09/28/16 04:00 MCH 31 pg (28-32) 09/28/16 04:00 MCHC 33 % (30-34) 09/28/16 04:00 RDW 19.1 % (13.2-15.2) H 09/28/16 04:00 Plt Count 258 K/mm3 (140-440) 09/28/16 04:00 Lymph % (Auto) 15.6 % (13.4-35.0) 08/30/16 10:30 [place] % (Auto) 5.1 % (0.0-7.3) 08/30/16 10:30 Eos % (Auto) 0.6 % (0.0-4.3) 08/30/16 10:30 Baso % (Auto) 0.1 % (0.0-1.8) 08/30/16 10:30 Lymph # 1.7 K/mm3 (1.2-5.4) 08/30/16 10:30 [place] # 0.6 K/mm3 (0.0-0.8) 08/30/16 10:30 Eos # 0.1 K/mm3 (0.0-0.4) 08/30/16 10:30 Baso # 0.0 K/mm3 (0.0-0.1) 08/30/16 10:30 Add Manual Diff Complete 09/02/16 05:00 Total Counted 100 09/02/16 05:00 Seg Neutrophils % 78.6 % (40.0-70.0) H 08/30/16 10:30 Seg Neuts % (Manual) 72.0 % (40.0-70.0) H 09/02/16 05:00 Band Neutrophils % 9.0 % 09/02/16 05:00 Lymphocytes % (Manual) 15.0 % (13.4-35.0) 09/02/16 05:00 Reactive Lymphs % (Man) 0 % 09/02/16 05:00 Monocytes % (Manual) 4.0 % (0.0-7.3) 09/02/16 05:00 Eosinophils % (Manual) 0 % (0.0-4.3) 09/02/16 05:00 Basophils % (Manual) 0 % (0.0-1.8) 09/02/16 05:00 Metamyelocytes % 0 % 09/02/16 05:00 Myelocytes % 0 % 09/02/16 05:00 Promyelocytes % 0 % 09/02/16 05:00 Blast Cells % 0 % 09/02/16 05:00 Nucleated RBC % 25.0 % (0.0-0.9) H 09/02/16 05:00 Seg Neutrophils # 8.7 K/mm3 (1.8-7.7) H 08/30/16 10:30 Seg Neutrophils # Man 8.9 K/mm3 (1.8-7.7) H 09/02/16 05:00 Band Neutrophils # 1.1 K/mm3 09/02/16 05:00 Lymphocytes # (Manual) 1.8 K/mm3 (1.2-5.4) 09/02/16 05:00 Abs React Lymphs (Man) 0.0 K/mm3 09/02/16 05:00 Monocytes # (Manual) 0.5 K/mm3 (0.0-0.8) 09/02/16 05:00 Eosinophils # (Manual) 0.0 K/mm3 (0.0-0.4) 09/02/16 05:00 Basophils # (Manual) 0.0 K/mm3 (0.0-0.1) 09/02/16 05:00 Metamyelocytes # 0.0 K/mm3 09/02/16 05:00 Myelocytes # 0.0 K/mm3 09/02/16 05:00 Promyelocytes # 0.0 K/mm3 09/02/16 05:00 Blast Cells # 0.0 K/mm3 09/02/16 05:00 WBC Morphology Not Reportable 09/02/16 05:00 Hypersegmented Neuts Not Reportable 09/02/16 05:00 Hyposegmented Neuts Not Reportable 09/02/16 05:00 Hypogranular Neuts Not Reportable 09/02/16 05:00 Smudge Cells Not Reportable 09/02/16 05:00 Toxic Granulation Not Reportable 09/02/16 05:00 Toxic Vacuolation Not Reportable 09/02/16 05:00 Dohle Bodies Not Reportable 09/02/16 05:00 Pelger-Huet Anomaly Not Reportable 09/02/16 05:00 Feli Rods Not Reportable 09/02/16 05:00 Platelet Estimate Consistent w auto 09/02/16 05:00 Clumped Platelets Not Reportable 09/02/16 05:00 Plt Clumps, EDTA Not Reportable 09/02/16 05:00 Large Platelets Not Reportable 09/02/16 05:00 Giant Platelets Not Reportable 09/02/16 05:00 Platelet Satelliting Not Reportable 09/02/16 05:00 Plt Morphology Comment Not Reportable 09/02/16 05:00 RBC Morphology Not Reportable 09/02/16 05:00 Dimorphic RBCs Not Reportable 09/02/16 05:00 Polychromasia Rare 09/02/16 05:00 Hypochromasia Not Reportable 09/02/16 05:00 Poikilocytosis Not Reportable 09/02/16 05:00 Anisocytosis 1+ 09/02/16 05:00 Microcytosis Not Reportable 09/02/16 05:00 Macrocytosis 1+ 09/02/16 05:00 Spherocytes Not Reportable 09/02/16 05:00 Pappenheimer Bodies Not Reportable 09/02/16 05:00 Sickle Cells Not Reportable 09/02/16 05:00 Target Cells Not Reportable 09/02/16 05:00 Tear Drop Cells Not Reportable 09/02/16 05:00 Ovalocytes Not Reportable 09/02/16 05:00 Helmet Cells Not Reportable 09/02/16 05:00 [place] Bodies Not Reportable 09/02/16 05:00 [place] Rings Not Reportable 09/02/16 05:00 [place] Cells Not Reportable 09/02/16 05:00 Bite Cells Not Reportable 09/02/16 05:00 Crenated Cell Not Reportable 09/02/16 05:00 Elliptocytes Not Reportable 09/02/16 05:00 Acanthocytes (Spur) Not Reportable 09/02/16 05:00 Rouleaux Not Reportable 09/02/16 05:00 Hemoglobin C Crystals Not Reportable 09/02/16 05:00 Schistocytes Not Reportable 09/02/16 05:00 Malaria parasites Not Reportable 09/02/16 05:00 Manny Bodies Not Reportable 09/02/16 05:00 Hem Pathologist Commnt No 09/02/16 05:00 PT 13.8 Sec. (12.2-14.9) 09/10/16 05:10 INR 1.07 (0.87-1.13) 09/10/16 05:10 APTT 29.5 Sec. (24.2-36.6) 08/29/16 17:40 POC ABG pH 7.460 (7.35-7.45) H 09/22/16 03:26 POC ABG pCO2 29.9 (35-45) L 09/22/16 03:26 POC ABG pO2 112 (80-105) H 09/22/16 03:26 POC ABG HCO3 21.3 09/22/16 03:26 POC ABG Total CO2 22 09/22/16 03:26 POC ABG O2 Sat 99 09/22/16 03:26 POC ABG Base Excess -3 09/22/16 03:26 VBG pH 7.366 (7.320-7.420) 08/29/16 17:40 FiO2 25 % 09/22/16 03:26 Sodium 143 mmol/L (137-145) 09/28/16 04:00 Potassium 3.8 mmol/L (3.6-5.0) 09/28/16 04:00 Chloride 110.5 mmol/L (98-107) H 09/28/16 04:00 Carbon Dioxide 22 mmol/L (22-30) 09/28/16 04:00 Anion Gap 14 mmol/L 09/28/16 04:00 BUN 24 mg/dL (7-17) H 09/28/16 04:00 Creatinine 0.3 mg/dL (0.7-1.2) L 09/28/16 04:00 Estimated GFR > 60 ml/min 09/28/16 04:00 BUN/Creatinine Ratio 80.00 % 09/28/16 04:00 Glucose 214 mg/dL (65-100) H 09/28/16 04:00 POC Glucose 190 (70-105) H 09/29/16 14:37 Lactic Acid 1.90 mmol/L (0.7-2.0) 09/07/16 15:00 Calcium 7.9 mg/dL (8.4-10.2) L 09/28/16 04:00 Phosphorus 3.60 mg/dL (2.5-4.5) 08/29/16 21:59 Magnesium 1.90 mg/dL (1.7-2.3) 09/20/16 05:00 Total Bilirubin 0.70 mg/dL (0.1-1.2) 09/11/16 05:00 AST 167 units/L (5-40) H 09/11/16 05:00 ALT 145 units/L (7-56) H 09/11/16 05:00 Alkaline Phosphatase 631 units/L (35-129) H 09/11/16 05:00 Ammonia 39.0 umol/L (25-60) 09/07/16 15:00 Total Creatine Kinase 36 units/L (30-135) 09/06/16 11:07 CK-MB (CK-2) < 1.0 ng/mL (0.0-4.0) 09/06/16 11:07 CK-MB (CK-2) Rel Index 2.7 (0-4) 09/06/16 11:07 Troponin T 0.080 ng/mL (0.00-0.029) H 09/06/16 11:07 C-Reactive Protein 10.20 mg/dL (0.00-1.30) H 08/30/16 22:20 NT-Pro-B Natriuret Pep 1712 pg/mL (0-900) H 08/29/16 17:40 Total Protein 5.1 g/dL (6.3-8.2) L 09/11/16 05:00 Albumin 1.6 g/dL (3.9-5) L 09/11/16 05:00 Albumin/Globulin Ratio 0.5 % 09/11/16 05:00 Prealbumin 0.120 g/L (0.200-0.400) L 08/29/16 21:59 Triglycerides 225 mg/dL (2-149) H 08/29/16 17:40 Cholesterol 130 mg/dL (50-199) 08/29/16 17:40 LDL Cholesterol Direct 82 mg/dL (50-130) 08/29/16 17:40 HDL Cholesterol 3 mg/dL (40-59) L 08/29/16 17:40 Cholesterol/HDL Ratio 43.33 % 08/29/16 17:40 TSH 5.220 mlU/mL (0.270-4.200) H 09/09/16 18:10 Urine Color Yellow (Yellow) 08/31/16 15:37 Urine Turbidity Clear (Clear) 08/31/16 15:37 Urine pH 5.0 (5.0-7.0) 08/31/16 15:37 Ur Specific [place] 1.009 (1.003-1.030) 08/31/16 15:37 Urine Protein <15 mg/dl mg/dL (Negative) 08/31/16 15:37 Urine Glucose (UA) Neg mg/dL (Negative) 08/31/16 15:37 Urine Ketones Neg mg/dL (Negative) 08/31/16 15:37 Urine Blood Sm (Negative) 08/31/16 15:37 Urine Nitrite Neg (Negative) 08/31/16 15:37 Urine Bilirubin Neg (Negative) 08/31/16 15:37 Urine Urobilinogen < 2.0 mg/dL (<2.0) 08/31/16 15:37 Ur Leukocyte Esterase Sm (Negative) 08/31/16 15:37 Urine WBC (Auto) 3.0 /HPF (0.0-6.0) 08/31/16 15:37 Urine RBC (Auto) 1.0 /HPF (0.0-6.0) 08/31/16 15:37 U Epithel Cells (Auto) < 1.0 /HPF (0-13.0) 08/31/16 15:37 Urine Bacteria (Auto) 1+ /HPF (Negative) 08/31/16 15:37 Hyaline Casts 5 /LPF 08/31/16 15:37 Urine Mucus Few /HPF 08/31/16 15:37 Blood Type O POSITIVE 09/21/16 08:20 Antibody Screen TNR 09/21/16 08:20 PATRICK Antibody Screen Negative 09/21/16 08:20 Crossmatch See Detail 09/21/16 08:20
[2016-09-29] MEDS ORDERED: PITRESSin 20 UNIT in NACL 0.9% 100 ML IV SCH (18:40)
[2016-09-29] MEDS: CORDARONE 900 MG in D5W 482 ML IV SCH (19:30)
[2016-09-29] MEDS ORDERED: ZOFRAN IV PRN (22:00)
[2016-09-30] MEDS: DUONEB 0.5 MG-3 MG/3 ML SOLN IH SCH ×4 (02:00→20:01)
[2016-09-30] MEDS: NOVOLOG SUB-Q SCH ×5 (02:57→18:28)
[2016-09-30] MEDS: PROAMATINE PO SCH ×3 (06:19→21:36)
--- NOTE | 2016-09-30 08:05 | Progress Note ---
Assessment and Plan - Patient Problems (1) Respiratory failure Current Visit: Yes Status: Acute Qualifiers: Chronicity: C Respiratory failure complication: R Plan to address problem: Currently on mechanical ventilatory support AC-VC at night and pressure support during the day VAP bundle addressed Wean FIO2 for O2 sats>92% HOB>40, aspiration precautions VTE prophylaxis- discontinue enoxaparin in view of anemia and use SCDs Stress ulcer prophylaxis- Pantoprazole Lung protective strategies Tracheostomy placement today Continue with enteric feedings, monitor accucheck (2) Shock Current Visit: Yes Status: Acute Plan to address problem: Treated as septic shock secondary to HCAP -resolved (3) Acute on chronic diastolic (congestive) heart failure Current Visit: No Status: Acute (4) Altered mental status Current Visit: Yes Status: Acute Qualifiers: Altered mental status type: unspecified Coma depth: C Coma timing: C Qualified Code(s): R41.82 - Altered mental status, unspecified Plan to address problem: Continue to monitor (5) Morbid obesity Current Visit: Yes Status: Acute Qualifiers: Obesity type: unspecified obesity type Qualified Code(s): E66.01 - Morbid ( severe) obesity due to excess calories (6) Anemia Current Visit: Yes Status: Acute Qualifiers: Anemia type: unspecified type Iron deficiency anemia type: I Vitamin B12 deficiency anemia type: V Folate deficiency anemia type: F Bone marrow failure anemia type: B Hemolytic anemia type: H Other causes of anemia: O Chronic kidney disease stage: C Qualified Code(s): D64.9 - Anemia, unspecified Plan to address problem: Continue to monitor. CBC prn Supportive transfusions (7) Status epilepticus Current Visit: Yes Status: Acute Plan to address problem: Continue AEDs Neurology following (8) Discharge planning issues Current Visit: Yes Status: Acute Plan to address problem: Continue current care. AND/DNR LTACH placement. PEG/Tracheostomy placement to facilitate discharge planning and on-going care (9) Atrial fibrillation Current Visit: No Status: Chronic Qualifiers: Atrial fibrillation type: A Plan to address problem: Rate controlled on amiodarone infusion. cardiology following Subjective Date of service: 09/30/16 Principal diagnosis: Acute Hypoxemic Hypercapnic Resp Failure; Severe Sepsis Interval history: Remains orally intubated. Seen and examined. Vitals, labs, medications, chart and imaging reviewed. No seizures overnight but had episodes of hypotension in the setting of Afib with RVR- currently on amiodarone, off norepinephrine. Patient is now DNR in the event of cardiopulmonary arrest Tracheostomy placement and PEG placement-by surgery Tolerating spontaneous breathing trials during the day and full support at night. PS10/5, with tidal volumes of 340 AC/VC 25/400/5/25% Objective Vital Signs - 12hr 09/29/16 09/29/16 09/29/16 20:15 20:30 20:45 Temperature Pulse Rate 77 80 81 Pulse Rate [ Anterior Bilateral Throughout] Pulse Rate [ From Monitor] Respiratory 29 H 25 H 25 H Rate Respiratory Rate [Anterior Bilateral Throughout] Blood Pressure 111/90 92/43 93/46 O2 Sat by Pulse 100 100 99 Oximetry 09/29/16 09/29/16 09/29/16 21:00 21:15 21:30 Temperature Pulse Rate 86 87 88 Pulse Rate [ Anterior Bilateral Throughout] Pulse Rate [ From Monitor] Respiratory 28 H 25 H 29 H Rate Respiratory Rate [Anterior Bilateral Throughout] Blood Pressure 98/45 77/35 93/41 O2 Sat by Pulse 100 100 100 Oximetry 09/29/16 09/29/16 09/29/16 21:45 22:01 22:15 Temperature Pulse Rate 80 80 78 Pulse Rate [ Anterior Bilateral Throughout] Pulse Rate [ From Monitor] Respiratory 29 H 21 27 H Rate Respiratory Rate [Anterior Bilateral Throughout] Blood Pressure 110/53 110/53 110/60 O2 Sat by Pulse 100 100 100 Oximetry 09/29/16 09/29/16 09/29/16 22:31 22:37 22:45 Temperature Pulse Rate 84 84 76 Pulse Rate [ Anterior Bilateral Throughout] Pulse Rate [ From Monitor] Respiratory 30 H 26 H Rate Respiratory Rate [Anterior Bilateral Throughout] Blood Pressure 100/61 106/73 O2 Sat by Pulse 99 100 Oximetry 09/29/16 09/29/16 09/29/16 23:00 23:15 23:30 Temperature Pulse Rate 81 72 76 Pulse Rate [ Anterior Bilateral Throughout] Pulse Rate [ From Monitor] Respiratory 25 H 26 H 27 H Rate Respiratory Rate [Anterior Bilateral Throughout] Blood Pressure 111/45 111/45 125/54 O2 Sat by Pulse 100 98 100 Oximetry 09/29/16 09/29/16 09/30/16 23:45 23:50 00:00 Temperature 98.6 F Pulse Rate 78 75 Pulse Rate [ Anterior Bilateral Throughout] Pulse Rate [ 74 From Monitor] Respiratory 27 H 30 H Rate Respiratory Rate [Anterior Bilateral Throughout] Blood Pressure 92/43 126/51 O2 Sat by Pulse 100 100 100 Oximetry 09/30/16 09/30/16 09/30/16 00:01 00:15 00:30 Temperature Pulse Rate 74 73 74 Pulse Rate [ Anterior Bilateral Throughout] Pulse Rate [ From Monitor] Respiratory 30 H 26 H 32 H Rate Respiratory Rate [Anterior Bilateral Throughout] Blood Pressure 126/51 132/40 114/67 O2 Sat by Pulse 100 100 100 Oximetry 09/30/16 09/30/16 09/30/16 00:35 00:45 01:00 Temperature Pulse Rate 80 84 81 Pulse Rate [ Anterior Bilateral Throughout] Pulse Rate [ From Monitor] Respiratory 33 H 32 H 30 H Rate Respiratory Rate [Anterior Bilateral Throughout] Blood Pressure 114/67 123/53 112/63 O2 Sat by Pulse 100 100 100 Oximetry 09/30/16 09/30/16 09/30/16 01:15 01:30 01:45 Temperature Pulse Rate 67 82 83 Pulse Rate [ Anterior Bilateral Throughout] Pulse Rate [ From Monitor] Respiratory 31 H 30 H 31 H Rate Respiratory Rate [Anterior Bilateral Throughout] Blood Pressure 108/51 117/50 118/45 O2 Sat by Pulse 100 100 100 Oximetry 09/30/16 09/30/16 09/30/16 02:00 02:10 02:15 Temperature Pulse Rate 85 90 Pulse Rate [ 76 79 Anterior Bilateral Throughout] Pulse Rate [ From Monitor] Respiratory 31 H 32 H Rate Respiratory 32 H 30 H Rate [Anterior Bilateral Throughout] Blood Pressure 114/41 112/43 O2 Sat by Pulse 100 100 Oximetry 09/30/16 09/30/16 09/30/16 02:30 02:45 03:00 Temperature Pulse Rate 90 84 98 H Pulse Rate [ Anterior Bilateral Throughout] Pulse Rate [ From Monitor] Respiratory 38 H 31 H 29 H Rate Respiratory Rate [Anterior Bilateral Throughout] Blood Pressure 106/46 101/44 101/47 O2 Sat by Pulse 100 99 100 Oximetry 09/30/16 09/30/16 09/30/16 03:15 03:30 03:45 Temperature 98.5 F Pulse Rate 130 H 99 H 93 H Pulse Rate [ Anterior Bilateral Throughout] Pulse Rate [ From Monitor] Respiratory 29 H 29 H 30 H Rate Respiratory Rate [Anterior Bilateral Throughout] Blood Pressure 108/41 121/76 119/32 O2 Sat by Pulse 99 99 100 Oximetry 09/30/16 09/30/16 09/30/16 03:50 04:00 04:15 Temperature Pulse Rate 93 H 94 H 85 Pulse Rate [ Anterior Bilateral Throughout] Pulse Rate [ From Monitor] Respiratory 36 H 32 H Rate Respiratory Rate [Anterior Bilateral Throughout] Blood Pressure 119/32 123/51 103/35 O2 Sat by Pulse 100 100 100 Oximetry 09/30/16 09/30/16 09/30/16 04:30 04:45 05:01 Temperature Pulse Rate 78 95 H Pulse Rate [ Anterior Bilateral Throughout] Pulse Rate [ From Monitor] Respiratory 35 H 34 H Rate Respiratory Rate [Anterior Bilateral Throughout] Blood Pressure 128/52 132/51 151/81 O2 Sat by Pulse 100 99 100 Oximetry 09/30/16 09/30/16 09/30/16 05:15 05:30 05:45 Temperature Pulse Rate 92 H 98 H 89 Pulse Rate [ Anterior Bilateral Throughout] Pulse Rate [ From Monitor] Respiratory 35 H 40 H 38 H Rate Respiratory Rate [Anterior Bilateral Throughout] Blood Pressure 139/75 143/74 160/92 O2 Sat by Pulse 100 99 99 Oximetry 09/30/16 09/30/16 09/30/16 06:00 06:15 06:31 Temperature Pulse Rate 92 H 94 H 82 Pulse Rate [ Anterior Bilateral Throughout] Pulse Rate [ From Monitor] Respiratory 26 H 33 H 26 H Rate Respiratory Rate [Anterior Bilateral Throughout] Blood Pressure 128/67 127/54 117/54 O2 Sat by Pulse 100 100 100 Oximetry 09/30/16 09/30/16 09/30/16 06:45 07:01 07:34 Temperature Pulse Rate 78 83 92 H Pulse Rate [ Anterior Bilateral Throughout] Pulse Rate [ From Monitor] Respiratory 25 H 28 H Rate Respiratory Rate [Anterior Bilateral Throughout] Blood Pressure 92/44 93/49 85/46 O2 Sat by Pulse 100 100 100 Oximetry 09/30/16 09/30/16 07:42 07:49 Temperature Pulse Rate Pulse Rate [ 92 H Anterior Bilateral Throughout] Pulse Rate [ 88 From Monitor] Respiratory 30 H Rate Respiratory 34 H Rate [Anterior Bilateral Throughout] Blood Pressure O2 Sat by Pulse 100 Oximetry Constitutional: no acute distress, other (encephalopathic) Eyes: non-icteric ENT: oropharynx moist, other (ETT 22cm RAFAEL) Neck: supple, no lymphadenopathy Effort: normal, mildly labored Ascultation: Bilateral: clear, diminished breath sounds, rales (bases) Cardiovascular: irregular rhythm Gastrointestinal: normoactive bowel sounds, hypoactive bowel sounds, soft, non- tender, non-distended Integumentary: normal Extremities: no cyanosis, pulses normal, no ischemia or petechiae, edema (1++) Neurologic: unable to assess, other (lethargic) Psychiatric: other (unable to assess) CBC and BMP: 10/01/16 08:35 10/01/16 08:35 ABG, PT/INR, D-dimer: ABG POC ABG pH 7.460 (7.35-7.45) H 09/22/16 03:26 POC ABG pCO2 29.9 (35-45) L 09/22/16 03:26 POC ABG pO2 112 (80-105) H 09/22/16 03:26 POC ABG HCO3 21.3 09/22/16 03:26 POC ABG Total CO2 22 09/22/16 03:26 POC ABG O2 Sat 99 09/22/16 03:26 PT/INR, D-dimer PT 13.8 Sec. (12.2-14.9) 09/10/16 05:10 INR 1.07 (0.87-1.13) 09/10/16 05:10 Abnormal lab findings: Abnormal Labs 08/29/16 08/30/16 08/30/16 21:59 00:16 05:39 WBC RBC Hgb Hct MCV MCH MCHC RDW Plt Count Seg Neutrophils % Seg Neuts % (Manual) Nucleated RBC % Seg Neutrophils # Seg Neutrophils # Man PT INR POC ABG pH POC ABG pCO2 POC ABG pO2 Sodium Potassium Chloride Carbon Dioxide BUN Creatinine Glucose POC Glucose 106 H 128 H Lactic Acid Calcium Magnesium Total Bilirubin AST ALT Alkaline Phosphatase Ammonia Troponin T C-Reactive Protein Total Protein Albumin Prealbumin 0.120 L TSH Crossmatch 08/30/16 08/30/16 08/30/16 10:30 10:30 11:12 WBC 11.1 H RBC 3.16 L Hgb 8.7 L Hct 29.9 L MCV MCH MCHC 29 L RDW 25.0 H Plt Count Seg Neutrophils % 78.6 H Seg Neuts % (Manual) Nucleated RBC % Seg Neutrophils # 8.7 H Seg Neutrophils # Man PT INR POC ABG pH POC ABG pCO2 POC ABG pO2 Sodium 135 L Potassium Chloride Carbon Dioxide 20 L BUN Creatinine 1.5 H Glucose 148 H POC Glucose 142 H Lactic Acid Calcium 7.2 L Magnesium Total Bilirubin 1.30 H AST 143 H ALT Alkaline Phosphatase 392 H Ammonia Troponin T C-Reactive Protein Total Protein 6.1 L Albumin 1.2 L Prealbumin TSH Crossmatch 08/30/16 08/30/16 08/30/16 17:41 18:03 18:18 WBC RBC Hgb Hct MCV MCH MCHC RDW Plt Count Seg Neutrophils % Seg Neuts % (Manual) Nucleated RBC % Seg Neutrophils # Seg Neutrophils # Man PT INR POC ABG pH 7.316 L POC ABG pCO2 POC ABG pO2 44 L 59 L Sodium Potassium Chloride Carbon Dioxide BUN Creatinine Glucose POC Glucose 150 H Lactic Acid Calcium Magnesium Total Bilirubin AST ALT Alkaline Phosphatase Ammonia Troponin T C-Reactive Protein Total Protein Albumin Prealbumin TSH Crossmatch 08/30/16 08/30/16 08/31/16 22:20 22:20 00:11 WBC RBC Hgb Hct MCV MCH MCHC RDW Plt Count Seg Neutrophils % Seg Neuts % (Manual) Nucleated RBC % Seg Neutrophils # Seg Neutrophils # Man PT INR POC ABG pH POC ABG pCO2 POC ABG pO2 Sodium Potassium Chloride Carbon Dioxide BUN Creatinine Glucose POC Glucose 133 H Lactic Acid 2.30 H* Calcium Magnesium Total Bilirubin AST ALT Alkaline Phosphatase Ammonia Troponin T C-Reactive Protein 10.20 H Total Protein Albumin Prealbumin TSH Crossmatch 08/31/16 08/31/16 08/31/16 04:20 04:20 04:20 WBC 18.3 H RBC 3.19 L Hgb 8.8 L Hct 30.0 L MCV MCH 27 L MCHC 29 L RDW 23.9 H Plt Count Seg Neutrophils % Seg Neuts % (Manual) Nucleated RBC % Seg Neutrophils # Seg Neutrophils # Man PT 16.8 H INR 1.37 H POC ABG pH POC ABG pCO2 POC ABG pO2 Sodium 136 L Potassium Chloride Carbon Dioxide 19 L BUN Creatinine 1.5 H Glucose 125 H POC Glucose Lactic Acid Calcium 7.0 L Magnesium Total Bilirubin 1.50 H AST 131 H ALT Alkaline Phosphatase 431 H Ammonia Troponin T C-Reactive Protein Total Protein 6.2 L Albumin 1.2 L Prealbumin TSH Crossmatch 08/31/16 08/31/16 08/31/16 04:20 05:22 05:24 WBC RBC Hgb Hct MCV MCH MCHC RDW Plt Count Seg Neutrophils % Seg Neuts % (Manual) Nucleated RBC % Seg Neutrophils # Seg Neutrophils # Man PT INR POC ABG pH POC ABG pCO2 POC ABG pO2 142 H Sodium Potassium Chloride Carbon Dioxide BUN Creatinine Glucose POC Glucose 123 H Lactic Acid Calcium Magnesium Total Bilirubin AST ALT Alkaline Phosphatase Ammonia 70.0 H Troponin T C-Reactive Protein Total Protein Albumin Prealbumin TSH Crossmatch 08/31/16 08/31/16 08/31/16 12:10 15:45 17:38 WBC RBC Hgb Hct MCV MCH MCHC RDW Plt Count Seg Neutrophils % Seg Neuts % (Manual) Nucleated RBC % Seg Neutrophils # Seg Neutrophils # Man PT INR POC ABG pH POC ABG pCO2 POC ABG pO2 Sodium 136 L Potassium Chloride Carbon Dioxide 21 L BUN Creatinine 1.5 H Glucose 160 H POC Glucose 147 H 151 H Lactic Acid Calcium 6.9 L Magnesium Total Bilirubin AST ALT Alkaline Phosphatase Ammonia Troponin T 0.109 H* D C-Reactive Protein Total Protein Albumin Prealbumin TSH Crossmatch 09/01/16 09/01/16 09/01/16 00:09 04:00 04:00 WBC 14.8 H RBC 2.89 L Hgb 7.8 L Hct 27.2 L MCV MCH 27 L MCHC 29 L RDW 24.4 H Plt Count Seg Neutrophils % Seg Neuts % (Manual) Nucleated RBC % Seg Neutrophils # Seg Neutrophils # Man PT 18.2 H INR 1.51 H POC ABG pH POC ABG pCO2 POC ABG pO2 Sodium Potassium Chloride Carbon Dioxide BUN Creatinine Glucose POC Glucose 192 H Lactic Acid Calcium Magnesium Total Bilirubin AST ALT Alkaline Phosphatase Ammonia Troponin T C-Reactive Protein Total Protein Albumin Prealbumin TSH Crossmatch 09/01/16 09/01/16 09/01/16 04:00 05:28 11:28 WBC RBC Hgb Hct MCV MCH MCHC RDW Plt Count Seg Neutrophils % Seg Neuts % (Manual) Nucleated RBC % Seg Neutrophils # Seg Neutrophils # Man PT INR POC ABG pH POC ABG pCO2 POC ABG pO2 Sodium Potassium Chloride Carbon Dioxide 20 L BUN Creatinine 1.6 H Glucose 183 H POC Glucose 189 H 207 H Lactic Acid Calcium 6.9 L Magnesium Total Bilirubin 1.30 H AST 138 H ALT Alkaline Phosphatase 520 H Ammonia Troponin T C-Reactive Protein Total Protein 6.1 L Albumin 1.2 L Prealbumin TSH Crossmatch 09/01/16 09/01/16 09/02/16 16:56 23:49 05:00 WBC RBC Hgb Hct MCV MCH MCHC RDW Plt Count Seg Neutrophils % Seg Neuts % (Manual) Nucleated RBC % Seg Neutrophils # Seg Neutrophils # Cristian PT 18.0 H INR 1.49 H POC ABG pH POC ABG pCO2 POC ABG pO2 Sodium Potassium Chloride Carbon Dioxide BUN Creatinine Glucose POC Glucose 250 H 307 H Lactic Acid Calcium Magnesium Total Bilirubin AST ALT Alkaline Phosphatase Ammonia Troponin T C-Reactive Protein Total Protein Albumin Prealbumin TSH Crossmatch 09/02/16 09/02/16 09/02/16 05:00 05:00 05:45 WBC 12.3 H RBC 2.57 L Hgb 7.1 L Hct 23.4 L MCV MCH MCHC RDW 23.9 H Plt Count Seg Neutrophils % Seg Neuts % (Manual) 72.0 H Nucleated RBC % 25.0 H Seg Neutrophils # Seg Neutrophils # Man 8.9 H PT INR POC ABG pH POC ABG pCO2 POC ABG pO2 Sodium Potassium Chloride Carbon Dioxide BUN Creatinine 1.4 H Glucose 299 H POC Glucose 327 H Lactic Acid Calcium 7.0 L Magnesium Total Bilirubin AST ALT Alkaline Phosphatase Ammonia Troponin T C-Reactive Protein Total Protein Albumin Prealbumin TSH Crossmatch 09/02/16 09/02/16 09/02/16 12:22 17:22 23:24 WBC RBC Hgb Hct MCV MCH MCHC RDW Plt Count Seg Neutrophils % Seg Neuts % (Manual) Nucleated RBC % Seg Neutrophils # Seg Neutrophils # Man PT INR POC ABG pH POC ABG pCO2 POC ABG pO2 Sodium Potassium Chloride Carbon Dioxide BUN Creatinine Glucose POC Glucose 310 H 358 H 286 H Lactic Acid Calcium Magnesium Total Bilirubin AST ALT Alkaline Phosphatase Ammonia Troponin T C-Reactive Protein Total Protein Albumin Prealbumin TSH Crossmatch 09/03/16 09/03/16 09/03/16 04:10 04:10 04:10 WBC 11.8 H RBC 2.29 L Hgb 6.1 L Hct 21.0 L MCV MCH 27 L MCHC 29 L RDW 24.1 H Plt Count Seg Neutrophils % Seg Neuts % (Manual) Nucleated RBC % Seg Neutrophils # Seg Neutrophils # Man PT 17.6 H INR 1.45 H POC ABG pH POC ABG pCO2 POC ABG pO2 Sodium Potassium Chloride Carbon Dioxide BUN Creatinine 1.4 H Glucose 301 H POC Glucose Lactic Acid Calcium 7.0 L Magnesium Total Bilirubin AST ALT Alkaline Phosphatase Ammonia Troponin T C-Reactive Protein Total Protein Albumin Prealbumin TSH Crossmatch 09/03/16 09/03/16 09/03/16 05:59 11:36 17:42 WBC RBC Hgb Hct MCV MCH MCHC RDW Plt Count Seg Neutrophils % Seg Neuts % (Manual) Nucleated RBC % Seg Neutrophils # Seg Neutrophils # Man PT INR POC ABG pH POC ABG pCO2 POC ABG pO2 Sodium Potassium Chloride Carbon Dioxide BUN Creatinine Glucose POC Glucose 351 H 285 H 259 H Lactic Acid Calcium Magnesium Total Bilirubin AST ALT Alkaline Phosphatase Ammonia Troponin T C-Reactive Protein Total Protein Albumin Prealbumin TSH Crossmatch 09/03/16 09/04/16 09/04/16 23:00 04:27 05:36 WBC RBC Hgb Hct MCV MCH MCHC RDW Plt Count Seg Neutrophils % Seg Neuts % (Manual) Nucleated RBC % Seg Neutrophils # Seg Neutrophils # Man PT INR POC ABG pH 7.544 H POC ABG pCO2 30.8 L POC ABG pO2 78 L Sodium Potassium Chloride Carbon Dioxide BUN Creatinine Glucose POC Glucose 192 H 228 H Lactic Acid Calcium Magnesium Total Bilirubin AST ALT Alkaline Phosphatase Ammonia Troponin T C-Reactive Protein Total Protein Albumin Prealbumin TSH Crossmatch 09/04/16 09/04/16 09/04/16 06:37 06:37 06:39 WBC 21.0 H RBC 2.22 L Hgb 6.0 L Hct 20.1 L MCV MCH 27 L MCHC RDW 24.3 H Plt Count Seg Neutrophils % Seg Neuts % (Manual) Nucleated RBC % Seg Neutrophils # Seg Neutrophils # Man PT 16.8 H INR 1.37 H POC ABG pH POC ABG pCO2 POC ABG pO2 Sodium Potassium Chloride Carbon Dioxide BUN Creatinine 1.4 H Glucose 201 H POC Glucose Lactic Acid Calcium 7.1 L Magnesium Total Bilirubin AST ALT Alkaline Phosphatase Ammonia Troponin T C-Reactive Protein Total Protein Albumin Prealbumin TSH Crossmatch 09/04/16 09/04/16 09/04/16 12:14 15:47 17:41 WBC RBC Hgb Hct MCV MCH MCHC RDW Plt Count Seg Neutrophils % Seg Neuts % (Manual) Nucleated RBC % Seg Neutrophils # Seg Neutrophils # Man PT INR POC ABG pH POC ABG pCO2 POC ABG pO2 Sodium Potassium Chloride Carbon Dioxide BUN Creatinine Glucose POC Glucose 176 H 218 H Lactic Acid Calcium Magnesium Total Bilirubin AST ALT Alkaline Phosphatase Ammonia Troponin T C-Reactive Protein Total Protein Albumin Prealbumin TSH Crossmatch See Detail 09/04/16 09/04/16 09/05/16 21:59 23:48 04:30 WBC RBC Hgb Hct MCV MCH MCHC RDW Plt Count Seg Neutrophils % Seg Neuts % (Manual) Nucleated RBC % Seg Neutrophils # Seg Neutrophils # Man PT 17.2 H INR 1.41 H POC ABG pH POC ABG pCO2 POC ABG pO2 Sodium Potassium Chloride Carbon Dioxide BUN Creatinine Glucose POC Glucose 170 H 121 H Lactic Acid Calcium Magnesium Total Bilirubin AST ALT Alkaline Phosphatase Ammonia Troponin T C-Reactive Protein Total Protein Albumin Prealbumin TSH Crossmatch 09/05/16 09/05/16 09/05/16 04:30 04:30 05:09 WBC 31.9 H RBC 3.11 L Hgb 8.5 L Hct 28.3 L D MCV MCH 27 L MCHC RDW 21.0 H Plt Count Seg Neutrophils % Seg Neuts % (Manual) Nucleated RBC % Seg Neutrophils # Seg Neutrophils # Man PT INR POC ABG pH 7.226 L POC ABG pCO2 61.6 H POC ABG pO2 68 L Sodium 134 L Potassium 5.5 H Chloride 96.6 L Carbon Dioxide BUN 23 H Creatinine 1.6 H Glucose 116 H POC Glucose Lactic Acid Calcium 7.1 L Magnesium Total Bilirubin AST ALT Alkaline Phosphatase Ammonia Troponin T C-Reactive Protein Total Protein Albumin Prealbumin TSH Crossmatch 09/05/16 09/05/16 09/05/16 05:33 12:08 17:32 WBC RBC Hgb Hct MCV MCH MCHC RDW Plt Count Seg Neutrophils % Seg Neuts % (Manual) Nucleated RBC % Seg Neutrophils # Seg Neutrophils # Man PT INR POC ABG pH POC ABG pCO2 POC ABG pO2 Sodium Potassium Chloride Carbon Dioxide BUN Creatinine Glucose POC Glucose 114 H 147 H 174 H Lactic Acid Calcium Magnesium Total Bilirubin AST ALT Alkaline Phosphatase Ammonia Troponin T C-Reactive Protein Total Protein Albumin Prealbumin TSH Crossmatch 09/06/16 09/06/16 09/06/16 03:30 03:30 03:30 WBC 25.4 H RBC 2.57 L Hgb 7.2 L Hct 22.8 L MCV MCH MCHC RDW 20.9 H Plt Count 138 L Seg Neutrophils % Seg Neuts % (Manual) Nucleated RBC % Seg Neutrophils # Seg Neutrophils # Man PT 16.4 H INR 1.33 H POC ABG pH POC ABG pCO2 POC ABG pO2 Sodium Potassium Chloride Carbon Dioxide BUN 36 H Creatinine 1.9 H Glucose POC Glucose Lactic Acid Calcium 7.2 L Magnesium Total Bilirubin AST ALT Alkaline Phosphatase Ammonia Troponin T C-Reactive Protein Total Protein Albumin Prealbumin TSH Crossmatch 09/06/16 09/06/16 09/06/16 11:07 12:03 14:44 WBC RBC Hgb Hct MCV MCH MCHC RDW Plt Count Seg Neutrophils % Seg Neuts % (Manual) Nucleated RBC % Seg Neutrophils # Seg Neutrophils # Man PT INR POC ABG pH POC ABG pCO2 POC ABG pO2 Sodium Potassium Chloride Carbon Dioxide BUN Creatinine Glucose POC Glucose 61 L 55 L Lactic Acid Calcium Magnesium Total Bilirubin AST ALT Alkaline Phosphatase Ammonia Troponin T 0.080 H C-Reactive Protein Total Protein Albumin Prealbumin TSH Crossmatch 09/06/16 09/06/16 09/07/16 21:05 23:53 03:36 WBC RBC Hgb Hct MCV MCH MCHC RDW Plt Count Seg Neutrophils % Seg Neuts % (Manual) Nucleated RBC % Seg Neutrophils # Seg Neutrophils # Man PT INR POC ABG pH POC ABG pCO2 POC ABG pO2 Sodium Potassium Chloride Carbon Dioxide BUN Creatinine Glucose POC Glucose 140 H 178 H 243 H Lactic Acid Calcium Magnesium Total Bilirubin AST ALT Alkaline Phosphatase Ammonia Troponin T C-Reactive Protein Total Protein Albumin Prealbumin TSH Crossmatch 09/07/16 09/07/16 09/07/16 03:42 03:42 05:04 WBC 17.3 H RBC 2.69 L Hgb 7.6 L Hct 23.8 L MCV MCH MCHC RDW 20.5 H Plt Count 137 L Seg Neutrophils % Seg Neuts % (Manual) Nucleated RBC % Seg Neutrophils # Seg Neutrophils # Man PT INR POC ABG pH POC ABG pCO2 POC ABG pO2 Sodium Potassium 3.3 L Chloride Carbon Dioxide BUN 38 H Creatinine 1.6 H Glucose 201 H POC Glucose 241 H Lactic Acid Calcium 7.4 L Magnesium Total Bilirubin AST ALT Alkaline Phosphatase Ammonia Troponin T C-Reactive Protein Total Protein Albumin Prealbumin TSH Crossmatch 09/07/16 09/07/16 09/07/16 11:46 17:41 23:18 WBC RBC Hgb Hct MCV MCH MCHC RDW Plt Count Seg Neutrophils % Seg Neuts % (Manual) Nucleated RBC % Seg Neutrophils # Seg Neutrophils # Man PT INR POC ABG pH POC ABG pCO2 POC ABG pO2 Sodium Potassium Chloride Carbon Dioxide BUN Creatinine Glucose POC Glucose 313 H 227 H 116 H Lactic Acid Calcium Magnesium Total Bilirubin AST ALT Alkaline Phosphatase Ammonia Troponin T C-Reactive Protein Total Protein Albumin Prealbumin TSH Crossmatch 09/08/16 09/08/16 09/08/16 04:00 04:00 05:15 WBC 18.4 H RBC 2.43 L Hgb 6.9 L Hct 21.5 L MCV MCH MCHC RDW 20.5 H Plt Count 119 L Seg Neutrophils % Seg Neuts % (Manual) Nucleated RBC % Seg Neutrophils # Seg Neutrophils # Man PT INR POC ABG pH 7.458 H POC ABG pCO2 POC ABG pO2 177 H Sodium Potassium 3.5 L Chloride Carbon Dioxide BUN 37 H Creatinine 1.3 H Glucose POC Glucose Lactic Acid Calcium 7.1 L Magnesium Total Bilirubin AST ALT Alkaline Phosphatase Ammonia Troponin T C-Reactive Protein Total Protein Albumin Prealbumin TSH Crossmatch 09/08/16 09/08/16 09/08/16 11:00 15:58 23:16 WBC RBC Hgb Hct MCV MCH MCHC RDW Plt Count Seg Neutrophils % Seg Neuts % (Manual) Nucleated RBC % Seg Neutrophils # Seg Neutrophils # Man PT INR POC ABG pH POC ABG pCO2 POC ABG pO2 113 H Sodium Potassium Chloride Carbon Dioxide BUN Creatinine Glucose POC Glucose 40 L Lactic Acid Calcium Magnesium Total Bilirubin AST ALT Alkaline Phosphatase Ammonia Troponin T C-Reactive Protein Total Protein Albumin Prealbumin TSH Crossmatch See Detail 09/09/16 09/09/16 09/09/16 05:02 12:33 18:10 WBC RBC Hgb Hct MCV MCH MCHC RDW Plt Count Seg Neutrophils % Seg Neuts % (Manual) Nucleated RBC % Seg Neutrophils # Seg Neutrophils # Man PT INR POC ABG pH 7.454 H POC ABG pCO2 POC ABG pO2 75 L Sodium Potassium Chloride Carbon Dioxide BUN Creatinine Glucose POC Glucose 59 L Lactic Acid Calcium Magnesium Total Bilirubin AST ALT Alkaline Phosphatase Ammonia Troponin T C-Reactive Protein Total Protein Albumin Prealbumin TSH 5.220 H Crossmatch 09/09/16 09/09/16 09/09/16 18:10 18:10 18:42 WBC 17.0 H RBC 2.90 L Hgb 8.5 L Hct 26.1 L MCV MCH MCHC RDW 17.9 H Plt Count 126 L Seg Neutrophils % Seg Neuts % (Manual) Nucleated RBC % Seg Neutrophils # Seg Neutrophils # Man PT INR POC ABG pH POC ABG pCO2 POC ABG pO2 Sodium Potassium Chloride Carbon Dioxide BUN 36 H Creatinine Glucose 133 H POC Glucose 148 H Lactic Acid Calcium 6.9 L Magnesium Total Bilirubin AST 253 H ALT 184 H Alkaline Phosphatase 729 H Ammonia Troponin T C-Reactive Protein Total Protein 5.1 L Albumin 1.7 L Prealbumin TSH Crossmatch 09/09/16 09/10/16 09/10/16 23:22 05:10 11:43 WBC RBC Hgb Hct MCV MCH MCHC RDW Plt Count Seg Neutrophils % Seg Neuts % (Manual) Nucleated RBC % Seg Neutrophils # Seg Neutrophils # Man PT INR POC ABG pH POC ABG pCO2 POC ABG pO2 Sodium Potassium Chloride Carbon Dioxide BUN 35 H Creatinine Glucose 240 H POC Glucose 170 H 268 H Lactic Acid Calcium 6.8 L Magnesium Total Bilirubin AST 226 H ALT 171 H Alkaline Phosphatase 710 H Ammonia Troponin T C-Reactive Protein Total Protein 5.2 L Albumin 1.7 L Prealbumin TSH Crossmatch 09/10/16 09/11/16 09/11/16 17:51 01:07 05:00 WBC RBC Hgb Hct MCV MCH MCHC RDW Plt Count Seg Neutrophils % Seg Neuts % (Manual) Nucleated RBC % Seg Neutrophils # Seg Neutrophils # Man PT INR POC ABG pH POC ABG pCO2 POC ABG pO2 Sodium Potassium 2.9 L* Chloride Carbon Dioxide BUN 35 H Creatinine Glucose 274 H POC Glucose 334 H 223 H Lactic Acid Calcium 6.9 L Magnesium Total Bilirubin AST 167 H ALT 145 H Alkaline Phosphatase 631 H Ammonia Troponin T C-Reactive Protein Total Protein 5.1 L Albumin 1.6 L Prealbumin TSH Crossmatch 09/11/16 09/11/16 09/11/16 05:01 12:16 17:12 WBC RBC Hgb Hct MCV MCH MCHC RDW Plt Count Seg Neutrophils % Seg Neuts % (Manual) Nucleated RBC % Seg Neutrophils # Seg Neutrophils # Man PT INR POC ABG pH POC ABG pCO2 POC ABG pO2 Sodium Potassium Chloride Carbon Dioxide BUN Creatinine Glucose POC Glucose 305 H 219 H 171 H Lactic Acid Calcium Magnesium Total Bilirubin AST ALT Alkaline Phosphatase Ammonia Troponin T C-Reactive Protein Total Protein Albumin Prealbumin TSH Crossmatch 09/11/16 09/12/16 09/12/16 23:35 03:33 05:00 WBC 12.9 H RBC 2.81 L Hgb 8.2 L Hct 25.4 L MCV MCH MCHC RDW 17.9 H Plt Count Seg Neutrophils % Seg Neuts % (Manual) Nucleated RBC % Seg Neutrophils # Seg Neutrophils # Man PT INR POC ABG pH POC ABG pCO2 POC ABG pO2 Sodium Potassium Chloride Carbon Dioxide BUN Creatinine Glucose POC Glucose 216 H 183 H Lactic Acid Calcium Magnesium Total Bilirubin AST ALT Alkaline Phosphatase Ammonia Troponin T C-Reactive Protein Total Protein Albumin Prealbumin TSH Crossmatch 09/12/16 09/12/16 09/12/16 05:00 15:15 18:30 WBC RBC Hgb Hct MCV MCH MCHC RDW Plt Count Seg Neutrophils % Seg Neuts % (Manual) Nucleated RBC % Seg Neutrophils # Seg Neutrophils # Man PT INR POC ABG pH POC ABG pCO2 POC ABG pO2 Sodium Potassium 3.0 L 3.4 L Chloride Carbon Dioxide BUN 33 H Creatinine 0.5 L Glucose POC Glucose 215 H Lactic Acid Calcium 7.0 L Magnesium Total Bilirubin AST ALT Alkaline Phosphatase Ammonia Troponin T C-Reactive Protein Total Protein Albumin Prealbumin TSH Crossmatch 09/12/16 09/13/16 09/13/16 23:17 05:50 05:50 WBC RBC 2.93 L Hgb 8.8 L Hct 26.7 L MCV MCH MCHC RDW 18.0 H Plt Count Seg Neutrophils % Seg Neuts % (Manual) Nucleated RBC % Seg Neutrophils # Seg Neutrophils # Man PT INR POC ABG pH POC ABG pCO2 POC ABG pO2 Sodium Potassium 2.6 L* D Chloride Carbon Dioxide BUN 29 H Creatinine 0.5 L Glucose 106 H POC Glucose 155 H Lactic Acid Calcium 7.3 L Magnesium Total Bilirubin AST ALT Alkaline Phosphatase Ammonia Troponin T C-Reactive Protein Total Protein Albumin Prealbumin TSH Crossmatch 09/13/16 09/13/16 09/13/16 05:53 11:43 15:07 WBC RBC Hgb Hct MCV MCH MCHC RDW Plt Count Seg Neutrophils % Seg Neuts % (Manual) Nucleated RBC % Seg Neutrophils # Seg Neutrophils # Man PT INR POC ABG pH POC ABG pCO2 POC ABG pO2 Sodium Potassium 2.8 L* Chloride Carbon Dioxide BUN Creatinine Glucose POC Glucose 119 H 129 H Lactic Acid Calcium Magnesium Total Bilirubin AST ALT Alkaline Phosphatase Ammonia Troponin T C-Reactive Protein Total Protein Albumin Prealbumin TSH Crossmatch 09/13/16 09/13/16 09/14/16 17:39 23:30 05:34 WBC RBC Hgb Hct MCV MCH MCHC RDW Plt Count Seg Neutrophils % Seg Neuts % (Manual) Nucleated RBC % Seg Neutrophils # Seg Neutrophils # Man PT INR POC ABG pH POC ABG pCO2 POC ABG pO2 Sodium Potassium Chloride Carbon Dioxide BUN Creatinine Glucose POC Glucose 144 H 196 H 175 H Lactic Acid Calcium Magnesium Total Bilirubin AST ALT Alkaline Phosphatase Ammonia Troponin T C-Reactive Protein Total Protein Albumin Prealbumin TSH Crossmatch 09/14/16 09/14/16 09/14/16 06:24 06:24 12:41 WBC RBC 2.82 L Hgb 8.4 L Hct 25.7 L MCV MCH MCHC RDW 18.0 H Plt Count Seg Neutrophils % Seg Neuts % (Manual) Nucleated RBC % Seg Neutrophils # Seg Neutrophils # Man PT INR POC ABG pH POC ABG pCO2 POC ABG pO2 Sodium Potassium 2.9 L* Chloride 107.3 H Carbon Dioxide BUN 26 H Creatinine 0.4 L Glucose 169 H POC Glucose 184 H Lactic Acid Calcium 7.5 L Magnesium Total Bilirubin AST ALT Alkaline Phosphatase Ammonia Troponin T C-Reactive Protein Total Protein Albumin Prealbumin TSH Crossmatch 09/14/16 09/14/16 09/14/16 14:50 17:57 23:34 WBC RBC Hgb Hct MCV MCH MCHC RDW Plt Count Seg Neutrophils % Seg Neuts % (Manual) Nucleated RBC % Seg Neutrophils # Seg Neutrophils # Man PT INR POC ABG pH POC ABG pCO2 POC ABG pO2 Sodium Potassium 3.3 L Chloride Carbon Dioxide BUN Creatinine Glucose POC Glucose 191 H 178 H Lactic Acid Calcium Magnesium Total Bilirubin AST ALT Alkaline Phosphatase Ammonia Troponin T C-Reactive Protein Total Protein Albumin Prealbumin TSH Crossmatch 09/15/16 09/15/16 09/15/16 05:02 07:57 07:57 WBC RBC 3.04 L Hgb 9.2 L Hct 28.2 L MCV MCH MCHC RDW 18.8 H Plt Count Seg Neutrophils % Seg Neuts % (Manual) Nucleated RBC % Seg Neutrophils # Seg Neutrophils # Man PT INR POC ABG pH POC ABG pCO2 POC ABG pO2 Sodium Potassium Chloride 107.2 H Carbon Dioxide BUN 26 H Creatinine 0.4 L Glucose 160 H POC Glucose 192 H Lactic Acid Calcium 7.7 L Magnesium Total Bilirubin AST ALT Alkaline Phosphatase Ammonia Troponin T C-Reactive Protein Total Protein Albumin Prealbumin TSH Crossmatch 09/15/16 09/15/16 09/15/16 11:23 17:51 23:45 WBC RBC Hgb Hct MCV MCH MCHC RDW Plt Count Seg Neutrophils % Seg Neuts % (Manual) Nucleated RBC % Seg Neutrophils # Seg Neutrophils # Man PT INR POC ABG pH POC ABG pCO2 POC ABG pO2 Sodium Potassium Chloride Carbon Dioxide BUN Creatinine Glucose POC Glucose 232 H 240 H 251 H Lactic Acid Calcium Magnesium Total Bilirubin AST ALT Alkaline Phosphatase Ammonia Troponin T C-Reactive Protein Total Protein Albumin Prealbumin TSH Crossmatch 09/16/16 09/16/16 09/16/16 04:55 04:55 05:38 WBC RBC 2.84 L Hgb 8.6 L Hct 26.2 L MCV MCH MCHC RDW 18.8 H Plt Count Seg Neutrophils % Seg Neuts % (Manual) Nucleated RBC % Seg Neutrophils # Seg Neutrophils # Man PT INR POC ABG pH POC ABG pCO2 POC ABG pO2 Sodium Potassium 3.1 L Chloride 107.6 H Carbon Dioxide BUN 25 H Creatinine 0.3 L Glucose 134 H POC Glucose 157 H Lactic Acid Calcium 7.6 L Magnesium Total Bilirubin AST ALT Alkaline Phosphatase Ammonia Troponin T C-Reactive Protein Total Protein Albumin Prealbumin TSH Crossmatch 09/16/16 09/16/16 09/16/16 11:53 17:56 23:54 WBC RBC Hgb Hct MCV MCH MCHC RDW Plt Count Seg Neutrophils % Seg Neuts % (Manual) Nucleated RBC % Seg Neutrophils # Seg Neutrophils # Man PT INR POC ABG pH POC ABG pCO2 POC ABG pO2 Sodium Potassium Chloride Carbon Dioxide BUN Creatinine Glucose POC Glucose 137 H 138 H 179 H Lactic Acid Calcium Magnesium Total Bilirubin AST ALT Alkaline Phosphatase Ammonia Troponin T C-Reactive Protein Total Protein Albumin Prealbumin TSH Crossmatch 09/17/16 09/17/16 09/17/16 05:00 05:00 05:28 WBC RBC 2.77 L Hgb 8.2 L Hct 25.9 L MCV MCH MCHC RDW 19.1 H Plt Count Seg Neutrophils % Seg Neuts % (Manual) Nucleated RBC % Seg Neutrophils # Seg Neutrophils # Man PT INR POC ABG pH POC ABG pCO2 POC ABG pO2 Sodium Potassium 3.5 L Chloride 108.4 H Carbon Dioxide BUN 29 H Creatinine 0.3 L Glucose 117 H POC Glucose 142 H Lactic Acid Calcium 7.4 L Magnesium Total Bilirubin AST ALT Alkaline Phosphatase Ammonia Troponin T C-Reactive Protein Total Protein Albumin Prealbumin TSH Crossmatch 09/17/16 09/17/16 09/18/16 18:07 23:31 06:29 WBC RBC Hgb Hct MCV MCH MCHC RDW Plt Count Seg Neutrophils % Seg Neuts % (Manual) Nucleated RBC % Seg Neutrophils # Seg Neutrophils # Man PT INR POC ABG pH POC ABG pCO2 POC ABG pO2 Sodium Potassium Chloride Carbon Dioxide BUN Creatinine Glucose POC Glucose 173 H 240 H 282 H Lactic Acid Calcium Magnesium Total Bilirubin AST ALT Alkaline Phosphatase Ammonia Troponin T C-Reactive Protein Total Protein Albumin Prealbumin TSH Crossmatch 09/18/16 09/18/16 09/18/16 06:30 12:21 17:55 WBC RBC Hgb Hct MCV MCH MCHC RDW Plt Count Seg Neutrophils % Seg Neuts % (Manual) Nucleated RBC % Seg Neutrophils # Seg Neutrophils # Man PT INR POC ABG pH POC ABG pCO2 POC ABG pO2 Sodium 148 H Potassium Chloride 110.7 H Carbon Dioxide BUN 30 H Creatinine 0.4 L Glucose 249 H POC Glucose 248 H 255 H Lactic Acid Calcium 7.4 L Magnesium 1.60 L Total Bilirubin AST ALT Alkaline Phosphatase Ammonia Troponin T C-Reactive Protein Total Protein Albumin Prealbumin TSH Crossmatch 09/19/16 09/19/16 09/19/16 00:09 04:45 05:11 WBC RBC Hgb Hct MCV MCH MCHC RDW Plt Count Seg Neutrophils % Seg Neuts % (Manual) Nucleated RBC % Seg Neutrophils # Seg Neutrophils # Man PT INR POC ABG pH POC ABG pCO2 POC ABG pO2 Sodium 146 H Potassium Chloride 110.8 H Carbon Dioxide BUN 34 H Creatinine 0.4 L Glucose 278 H POC Glucose 324 H 278 H Lactic Acid Calcium 7.3 L Magnesium Total Bilirubin AST ALT Alkaline Phosphatase Ammonia Troponin T C-Reactive Protein Total Protein Albumin Prealbumin TSH Crossmatch 09/19/16 09/19/16 09/19/16 11:12 12:09 17:10 WBC RBC Hgb Hct MCV MCH MCHC RDW Plt Count Seg Neutrophils % Seg Neuts % (Manual) Nucleated RBC % Seg Neutrophils # Seg Neutrophils # Man PT INR POC ABG pH POC ABG pCO2 POC ABG pO2 Sodium Potassium Chloride Carbon Dioxide BUN Creatinine Glucose POC Glucose 306 H 225 H 329 H Lactic Acid Calcium Magnesium Total Bilirubin AST ALT Alkaline Phosphatase Ammonia Troponin T C-Reactive Protein Total Protein Albumin Prealbumin TSH Crossmatch 09/19/16 09/20/16 09/20/16 23:34 04:52 05:00 WBC RBC Hgb Hct MCV MCH MCHC RDW Plt Count Seg Neutrophils % Seg Neuts % (Manual) Nucleated RBC % Seg Neutrophils # Seg Neutrophils # Man PT INR POC ABG pH POC ABG pCO2 POC ABG pO2 Sodium Potassium Chloride 108.6 H Carbon Dioxide BUN 35 H Creatinine 0.4 L Glucose 370 H POC Glucose 376 H 374 H Lactic Acid Calcium 7.3 L Magnesium Total Bilirubin AST ALT Alkaline Phosphatase Ammonia Troponin T C-Reactive Protein Total Protein Albumin Prealbumin TSH Crossmatch 09/20/16 09/20/16 09/20/16 11:18 17:39 23:49 WBC RBC Hgb Hct MCV MCH MCHC RDW Plt Count Seg Neutrophils % Seg Neuts % (Manual) Nucleated RBC % Seg Neutrophils # Seg Neutrophils # Man PT INR POC ABG pH POC ABG pCO2 POC ABG pO2 Sodium Potassium Chloride Carbon Dioxide BUN Creatinine Glucose POC Glucose 342 H 416 H 440 H Lactic Acid Calcium Magnesium Total Bilirubin AST ALT Alkaline Phosphatase Ammonia Troponin T C-Reactive Protein Total Protein Albumin Prealbumin TSH Crossmatch 09/21/16 09/21/16 09/21/16 04:58 05:15 05:15 WBC RBC 1.48 L Hgb 4.6 L* Hct 14.9 L* MCV 100 H MCH MCHC RDW 25.4 H Plt Count Seg Neutrophils % Seg Neuts % (Manual) Nucleated RBC % Seg Neutrophils # Seg Neutrophils # Man PT INR POC ABG pH POC ABG pCO2 POC ABG pO2 Sodium Potassium Chloride 107.5 H Carbon Dioxide 20 L BUN 45 H Creatinine 0.6 L Glucose 490 H POC Glucose > 500 H Lactic Acid Calcium 7.0 L Magnesium Total Bilirubin AST ALT Alkaline Phosphatase Ammonia Troponin T C-Reactive Protein Total Protein Albumin Prealbumin TSH Crossmatch 09/21/16 09/21/16 09/21/16 08:20 09:17 12:09 WBC RBC Hgb Hct MCV MCH MCHC RDW Plt Count Seg Neutrophils % Seg Neuts % (Manual) Nucleated RBC % Seg Neutrophils # Seg Neutrophils # Man PT INR POC ABG pH 7.464 H POC ABG pCO2 29.3 L POC ABG pO2 198 H Sodium Potassium Chloride Carbon Dioxide BUN Creatinine Glucose POC Glucose 248 H Lactic Acid Calcium Magnesium Total Bilirubin AST ALT Alkaline Phosphatase Ammonia Troponin T C-Reactive Protein Total Protein Albumin Prealbumin TSH Crossmatch See Detail 09/21/16 09/21/16 09/21/16 15:21 17:36 18:49 WBC RBC Hgb Hct MCV MCH MCHC RDW Plt Count Seg Neutrophils % Seg Neuts % (Manual) Nucleated RBC % Seg Neutrophils # Seg Neutrophils # Man PT INR POC ABG pH POC ABG pCO2 POC ABG pO2 Sodium Potassium Chloride Carbon Dioxide BUN Creatinine Glucose POC Glucose 403 H 437 H 482 H Lactic Acid Calcium Magnesium Total Bilirubin AST ALT Alkaline Phosphatase Ammonia Troponin T C-Reactive Protein Total Protein Albumin Prealbumin TSH Crossmatch 09/21/16 09/22/16 09/22/16 23:29 00:00 01:29 WBC 14.8 H RBC 2.94 L Hgb 9.1 L D Hct 27.5 L D MCV MCH MCHC RDW 16.7 H Plt Count Seg Neutrophils % Seg Neuts % (Manual) Nucleated RBC % Seg Neutrophils # Seg Neutrophils # Man PT INR POC ABG pH POC ABG pCO2 POC ABG pO2 Sodium Potassium Chloride Carbon Dioxide BUN Creatinine Glucose POC Glucose 311 H 288 H Lactic Acid Calcium Magnesium Total Bilirubin AST ALT Alkaline Phosphatase Ammonia Troponin T C-Reactive Protein Total Protein Albumin Prealbumin TSH Crossmatch 09/22/16 09/22/16 09/22/16 02:29 03:12 03:26 WBC RBC Hgb Hct MCV MCH MCHC RDW Plt Count Seg Neutrophils % Seg Neuts % (Manual) Nucleated RBC % Seg Neutrophils # Seg Neutrophils # Man PT INR POC ABG pH 7.460 H POC ABG pCO2 29.9 L POC ABG pO2 112 H Sodium Potassium Chloride Carbon Dioxide BUN Creatinine Glucose POC Glucose 261 H 239 H Lactic Acid Calcium Magnesium Total Bilirubin AST ALT Alkaline Phosphatase Ammonia Troponin T C-Reactive Protein Total Protein Albumin Prealbumin TSH Crossmatch 09/22/16 09/22/16 09/22/16 05:35 06:40 06:40 WBC 13.5 H RBC 3.18 L Hgb 9.5 L Hct 28.8 L MCV MCH MCHC RDW 16.2 H Plt Count Seg Neutrophils % Seg Neuts % (Manual) Nucleated RBC % Seg Neutrophils # Seg Neutrophils # Man PT INR POC ABG pH POC ABG pCO2 POC ABG pO2 Sodium 147 H Potassium 3.2 L D Chloride 112.3 H Carbon Dioxide BUN 49 H Creatinine 0.6 L Glucose 102 H POC Glucose 181 H Lactic Acid Calcium 7.5 L Magnesium Total Bilirubin AST ALT Alkaline Phosphatase Ammonia Troponin T C-Reactive Protein Total Protein Albumin Prealbumin TSH Crossmatch 09/22/16 09/22/16 09/22/16 07:16 18:03 20:05 WBC RBC Hgb Hct MCV MCH MCHC RDW Plt Count Seg Neutrophils % Seg Neuts % (Manual) Nucleated RBC % Seg Neutrophils # Seg Neutrophils # Man PT INR POC ABG pH POC ABG pCO2 POC ABG pO2 Sodium Potassium Chloride Carbon Dioxide BUN Creatinine Glucose POC Glucose 152 H 115 H 107 H Lactic Acid Calcium Magnesium Total Bilirubin AST ALT Alkaline Phosphatase Ammonia Troponin T C-Reactive Protein Total Protein Albumin Prealbumin TSH Crossmatch 09/22/16 09/22/16 09/23/16 21:00 23:55 02:02 WBC 13.8 H RBC 3.04 L Hgb 9.2 L Hct 28.0 L MCV MCH MCHC RDW 16.2 H Plt Count Seg Neutrophils % Seg Neuts % (Manual) Nucleated RBC % Seg Neutrophils # Seg Neutrophils # Man PT INR POC ABG pH POC ABG pCO2 POC ABG pO2 Sodium Potassium Chloride Carbon Dioxide BUN Creatinine Glucose POC Glucose 133 H 110 H Lactic Acid Calcium Magnesium Total Bilirubin AST ALT Alkaline Phosphatase Ammonia Troponin T C-Reactive Protein Total Protein Albumin Prealbumin TSH Crossmatch 09/23/16 09/23/16 09/23/16 04:45 04:45 05:36 WBC 13.6 H RBC 2.86 L Hgb 8.6 L Hct 26.4 L MCV MCH MCHC RDW 17.1 H Plt Count Seg Neutrophils % Seg Neuts % (Manual) Nucleated RBC % Seg Neutrophils # Seg Neutrophils # Man PT INR POC ABG pH POC ABG pCO2 POC ABG pO2 Sodium Potassium Chloride 109.2 H Carbon Dioxide 21 L BUN 43 H Creatinine 0.5 L Glucose 152 H POC Glucose 133 H Lactic Acid Calcium 7.7 L Magnesium Total Bilirubin AST ALT Alkaline Phosphatase Ammonia Troponin T C-Reactive Protein Total Protein Albumin Prealbumin TSH Crossmatch 09/23/16 09/23/16 09/23/16 07:42 11:55 13:26 WBC RBC Hgb Hct MCV MCH MCHC RDW Plt Count Seg Neutrophils % Seg Neuts % (Manual) Nucleated RBC % Seg Neutrophils # Seg Neutrophils # Man PT INR POC ABG pH POC ABG pCO2 POC ABG pO2 Sodium Potassium Chloride Carbon Dioxide BUN Creatinine Glucose POC Glucose 175 H 170 H 195 H Lactic Acid Calcium Magnesium Total Bilirubin AST ALT Alkaline Phosphatase Ammonia Troponin T C-Reactive Protein Total Protein Albumin Prealbumin TSH Crossmatch 09/23/16 09/23/16 09/24/16 17:37 21:54 02:56 WBC RBC Hgb Hct MCV MCH MCHC RDW Plt Count Seg Neutrophils % Seg Neuts % (Manual) Nucleated RBC % Seg Neutrophils # Seg Neutrophils # Man PT INR POC ABG pH POC ABG pCO2 POC ABG pO2 Sodium Potassium Chloride Carbon Dioxide BUN Creatinine Glucose POC Glucose 182 H 184 H 187 H Lactic Acid Calcium Magnesium Total Bilirubin AST ALT Alkaline Phosphatase Ammonia Troponin T C-Reactive Protein Total Protein Albumin Prealbumin TSH Crossmatch 09/24/16 09/24/16 09/24/16 05:00 05:00 05:22 WBC RBC 2.82 L Hgb 8.8 L Hct 27.0 L MCV MCH MCHC RDW 17.2 H Plt Count Seg Neutrophils % Seg Neuts % (Manual) Nucleated RBC % Seg Neutrophils # Seg Neutrophils # Man PT INR POC ABG pH POC ABG pCO2 POC ABG pO2 Sodium 148 H Potassium Chloride 115.0 H Carbon Dioxide 21 L BUN 38 H Creatinine 0.6 L Glucose 163 H POC Glucose 194 H Lactic Acid Calcium 7.9 L Magnesium Total Bilirubin AST ALT Alkaline Phosphatase Ammonia Troponin T C-Reactive Protein Total Protein Albumin Prealbumin TSH Crossmatch 09/24/16 09/24/16 09/24/16 11:02 13:55 17:37 WBC RBC Hgb Hct MCV MCH MCHC RDW Plt Count Seg Neutrophils % Seg Neuts % (Manual) Nucleated RBC % Seg Neutrophils # Seg Neutrophils # Man PT INR POC ABG pH POC ABG pCO2 POC ABG pO2 Sodium Potassium Chloride Carbon Dioxide BUN Creatinine Glucose POC Glucose 210 H 182 H 169 H Lactic Acid Calcium Magnesium Total Bilirubin AST ALT Alkaline Phosphatase Ammonia Troponin T C-Reactive Protein Total Protein Albumin Prealbumin TSH Crossmatch 09/25/16 09/25/16 09/25/16 02:15 05:14 09:39 WBC RBC Hgb Hct MCV MCH MCHC RDW Plt Count Seg Neutrophils % Seg Neuts % (Manual) Nucleated RBC % Seg Neutrophils # Seg Neutrophils # Man PT INR POC ABG pH POC ABG pCO2 POC ABG pO2 Sodium Potassium Chloride Carbon Dioxide BUN Creatinine Glucose POC Glucose 139 H 151 H 184 H Lactic Acid Calcium Magnesium Total Bilirubin AST ALT Alkaline Phosphatase Ammonia Troponin T C-Reactive Protein Total Protein Albumin Prealbumin TSH Crossmatch 09/25/16 09/25/16 09/25/16 09:48 09:48 13:47 WBC RBC 2.76 L Hgb 8.7 L Hct 26.2 L MCV MCH MCHC RDW 17.3 H Plt Count Seg Neutrophils % Seg Neuts % (Manual) Nucleated RBC % Seg Neutrophils # Seg Neutrophils # Man PT INR POC ABG pH POC ABG pCO2 POC ABG pO2 Sodium 150 H Potassium Chloride 115.6 H Carbon Dioxide BUN 34 H Creatinine 0.4 L Glucose 168 H POC Glucose 167 H Lactic Acid Calcium 7.9 L Magnesium Total Bilirubin AST ALT Alkaline Phosphatase Ammonia Troponin T C-Reactive Protein Total Protein Albumin Prealbumin TSH Crossmatch 09/25/16 09/25/16 09/26/16 17:57 21:44 00:05 WBC RBC Hgb Hct MCV MCH MCHC RDW Plt Count Seg Neutrophils % Seg Neuts % (Manual) Nucleated RBC % Seg Neutrophils # Seg Neutrophils # Man PT INR POC ABG pH POC ABG pCO2 POC ABG pO2 Sodium Potassium Chloride Carbon Dioxide BUN Creatinine Glucose POC Glucose 206 H 188 H 188 H Lactic Acid Calcium Magnesium Total Bilirubin AST ALT Alkaline Phosphatase Ammonia Troponin T C-Reactive Protein Total Protein Albumin Prealbumin TSH Crossmatch 09/26/16 09/26/16 09/26/16 01:29 03:46 03:46 WBC RBC 2.76 L Hgb 8.6 L Hct 26.2 L MCV MCH MCHC RDW 18.2 H Plt Count Seg Neutrophils % Seg Neuts % (Manual) Nucleated RBC % Seg Neutrophils # Seg Neutrophils # Man PT INR POC ABG pH POC ABG pCO2 POC ABG pO2 Sodium 147 H Potassium Chloride 114.1 H Carbon Dioxide BUN 28 H Creatinine 0.4 L Glucose 172 H POC Glucose 198 H Lactic Acid Calcium 7.6 L Magnesium Total Bilirubin AST ALT Alkaline Phosphatase Ammonia Troponin T C-Reactive Protein Total Protein Albumin Prealbumin TSH Crossmatch 09/26/16 09/26/16 09/26/16 08:08 12:39 16:56 WBC RBC Hgb Hct MCV MCH MCHC RDW Plt Count Seg Neutrophils % Seg Neuts % (Manual) Nucleated RBC % Seg Neutrophils # Seg Neutrophils # Man PT INR POC ABG pH POC ABG pCO2 POC ABG pO2 Sodium Potassium Chloride Carbon Dioxide BUN Creatinine Glucose POC Glucose 161 H 176 H 128 H Lactic Acid Calcium Magnesium Total Bilirubin AST ALT Alkaline Phosphatase Ammonia Troponin T C-Reactive Protein Total Protein Albumin Prealbumin TSH Crossmatch 09/26/16 09/27/16 09/27/16 21:33 06:31 07:23 WBC RBC Hgb Hct MCV MCH MCHC RDW Plt Count Seg Neutrophils % Seg Neuts % (Manual) Nucleated RBC % Seg Neutrophils # Seg Neutrophils # Man PT INR POC ABG pH POC ABG pCO2 POC ABG pO2 Sodium Potassium Chloride Carbon Dioxide BUN Creatinine Glucose POC Glucose 120 H 209 H 173 H Lactic Acid Calcium Magnesium Total Bilirubin AST ALT Alkaline Phosphatase Ammonia Troponin T C-Reactive Protein Total Protein Albumin Prealbumin TSH Crossmatch 09/27/16 09/27/16 09/27/16 11:31 17:22 20:41 WBC RBC Hgb Hct MCV MCH MCHC RDW Plt Count Seg Neutrophils % Seg Neuts % (Manual) Nucleated RBC % Seg Neutrophils # Seg Neutrophils # Man PT INR POC ABG pH POC ABG pCO2 POC ABG pO2 Sodium Potassium Chloride Carbon Dioxide BUN Creatinine Glucose POC Glucose 185 H 167 H 185 H Lactic Acid Calcium Magnesium Total Bilirubin AST ALT Alkaline Phosphatase Ammonia Troponin T C-Reactive Protein Total Protein Albumin Prealbumin TSH Crossmatch 09/28/16 09/28/16 09/28/16 00:30 04:00 04:00 WBC RBC 3.00 L Hgb 9.4 L Hct 28.7 L MCV MCH MCHC RDW 19.1 H Plt Count Seg Neutrophils % Seg Neuts % (Manual) Nucleated RBC % Seg Neutrophils # Seg Neutrophils # Man PT INR POC ABG pH POC ABG pCO2 POC ABG pO2 Sodium Potassium Chloride 110.5 H Carbon Dioxide BUN 24 H Creatinine 0.3 L Glucose 214 H POC Glucose 159 H Lactic Acid Calcium 7.9 L Magnesium Total Bilirubin AST ALT Alkaline Phosphatase Ammonia Troponin T C-Reactive Protein Total Protein Albumin Prealbumin TSH Crossmatch 09/28/16 09/28/16 09/28/16 04:12 09:58 15:15 WBC RBC Hgb Hct MCV MCH MCHC RDW Plt Count Seg Neutrophils % Seg Neuts % (Manual) Nucleated RBC % Seg Neutrophils # Seg Neutrophils # Man PT INR POC ABG pH POC ABG pCO2 POC ABG pO2 Sodium Potassium Chloride Carbon Dioxide BUN Creatinine Glucose POC Glucose 209 H 191 H 162 H Lactic Acid Calcium Magnesium Total Bilirubin AST ALT Alkaline Phosphatase Ammonia Troponin T C-Reactive Protein Total Protein Albumin Prealbumin TSH Crossmatch 09/28/16 09/28/16 09/29/16 17:58 21:38 02:38 WBC RBC Hgb Hct MCV MCH MCHC RDW Plt Count Seg Neutrophils % Seg Neuts % (Manual) Nucleated RBC % Seg Neutrophils # Seg Neutrophils # Man PT INR POC ABG pH POC ABG pCO2 POC ABG pO2 Sodium Potassium Chloride Carbon Dioxide BUN Creatinine Glucose POC Glucose 174 H 162 H 180 H Lactic Acid Calcium Magnesium Total Bilirubin AST ALT Alkaline Phosphatase Ammonia Troponin T C-Reactive Protein Total Protein Albumin Prealbumin TSH Crossmatch 09/29/16 09/29/16 09/29/16 05:16 10:24 14:37 WBC RBC Hgb Hct MCV MCH MCHC RDW Plt Count Seg Neutrophils % Seg Neuts % (Manual) Nucleated RBC % Seg Neutrophils # Seg Neutrophils # Man PT INR POC ABG pH POC ABG pCO2 POC ABG pO2 Sodium Potassium Chloride Carbon Dioxide BUN Creatinine Glucose POC Glucose 152 H 182 H 190 H Lactic Acid Calcium Magnesium Total Bilirubin AST ALT Alkaline Phosphatase Ammonia Troponin T C-Reactive Protein Total Protein Albumin Prealbumin TSH Crossmatch 09/29/16 09/29/16 09/30/16 17:30 21:39 01:45 WBC RBC Hgb Hct MCV MCH MCHC RDW Plt Count Seg Neutrophils % Seg Neuts % (Manual) Nucleated RBC % Seg Neutrophils # Seg Neutrophils # Man PT INR POC ABG pH POC ABG pCO2 POC ABG pO2 Sodium Potassium Chloride Carbon Dioxide BUN Creatinine Glucose POC Glucose 192 H 219 H 210 H Lactic Acid Calcium Magnesium Total Bilirubin AST ALT Alkaline Phosphatase Ammonia Troponin T C-Reactive Protein Total Protein Albumin Prealbumin TSH Crossmatch 09/30/16 05:02 WBC RBC Hgb Hct MCV MCH MCHC RDW Plt Count Seg Neutrophils % Seg Neuts % (Manual) Nucleated RBC % Seg Neutrophils # Seg Neutrophils # Man PT INR POC ABG pH POC ABG pCO2 POC ABG pO2 Sodium Potassium Chloride Carbon Dioxide BUN Creatinine Glucose POC Glucose 148 H Lactic Acid Calcium Magnesium Total Bilirubin AST ALT Alkaline Phosphatase Ammonia Troponin T C-Reactive Protein Total Protein Albumin Prealbumin TSH Crossmatch Allied health notes reviewed: RT
[2016-09-30 09:35] LABS: Anion Gap 15 mmol/L; Blood Urea Nitrogen 22 mg/dL (7-17); Calcium 7.8 mg/dL (8.4-10.2); Carbon Dioxide 22 mmol/L (22-30); Chloride 108.5 mmol/L (98-107); Glucose 223 mg/dL (65-100); Potassium 3.5 mmol/L (3.6-5.0); Sodium 142 mmol/L (137-145)
[2016-09-30] MEDS: PROTONIX PO SCH (10:03)
[2016-09-30] MEDS: KEPPRA PO SCH ×2 (10:03→21:36)
[2016-09-30] MEDS: FOLVITE PO SCH (10:03)
[2016-09-30] MEDS: LEVEMIR SUB-Q SCH (10:03)
[2016-09-30] MEDS: FERROUS SULFATE PO SCH (10:03)
[2016-09-30] MEDS: SYNTHROID PO SCH (10:03)
[2016-09-30] MEDS: POTASSIUM CHLORIDE FEEDTUBE SCH (10:05)
--- NOTE | 2016-09-30 10:06 | Progress Note ---
Assessment and Plan Altered mental status/encephalopathy Chronic respiratory failure intubated on the vent Anemia requiring blood transfusion Morbid Obesity Decubitus ulcers Diabetes AND/DNR status EF 50-55% on echo 06/2016. Recommendations: Continue IV amiodarone loading at 0.5 mg/min (started yesterday around 7 pm) Continue pressor support with levophed +/_ vasopression Not a candidate for OAC given anemia and recurrent PRBC transfusions (patient received a total of 9 units of PRBCs this admission) Prognosis is poor Subjective Date of service: 09/30/16 Principal diagnosis: Acute Hypoxemic Hypercapnic Resp Failure; Severe Sepsis Interval history: Cardiology reconsulted due to afib with RVR associated with hypotension. This morning rate is better controlled on IV amiodarone and BP 101/54 on levophed. Objective Vital Signs Temp Pulse Pulse Pulse Resp Resp BP 09/30/16 09:00 88 24 110/50 09/30/16 08:24 91 H 33 H 09/30/16 08:00 97.4 F L 87 16 98/42 09/30/16 07:49 88 30 H 09/30/16 07:42 92 H 34 H 09/30/16 07:34 92 H 85/46 09/30/16 07:01 83 28 H 93/49 09/30/16 06:45 78 25 H 92/44 09/30/16 06:31 82 26 H 117/54 09/30/16 06:15 94 H 33 H 127/54 09/30/16 06:00 92 H 26 H 128/67 09/30/16 05:45 89 38 H 160/92 09/30/16 05:30 98 H 40 H 143/74 09/30/16 05:15 92 H 35 H 139/75 09/30/16 05:01 151/81 09/30/16 04:45 95 H 34 H 132/51 09/30/16 04:30 78 35 H 128/52 09/30/16 04:15 85 32 H 103/35 09/30/16 04:00 94 H 94 H 36 H 123/51 09/30/16 03:50 93 H 119/32 09/30/16 03:45 98.5 F 93 H 30 H 119/32 09/30/16 03:30 99 H 29 H 121/76 09/30/16 03:15 130 H 29 H 108/41 09/30/16 03:00 98 H 29 H 101/47 09/30/16 02:45 84 31 H 101/44 09/30/16 02:30 90 38 H 106/46 09/30/16 02:15 90 32 H 112/43 09/30/16 02:10 79 30 H 09/30/16 02:00 85 76 31 H 32 H 114/41 09/30/16 01:45 83 31 H 118/45 09/30/16 01:30 82 30 H 117/50 09/30/16 01:15 67 31 H 108/51 09/30/16 01:00 81 30 H 112/63 09/30/16 00:45 84 32 H 123/53 09/30/16 00:35 80 33 H 114/67 09/30/16 00:30 74 32 H 114/67 09/30/16 00:15 73 26 H 132/40 09/30/16 00:01 74 30 H 126/51 09/30/16 00:00 98.6 F 74 30 H 09/29/16 23:50 75 126/51 09/29/16 23:45 78 27 H 92/43 09/29/16 23:30 76 27 H 125/54 09/29/16 23:15 72 26 H 111/45 09/29/16 23:00 81 25 H 111/45 09/29/16 22:45 76 26 H 106/73 09/29/16 22:37 84 09/29/16 22:31 84 30 H 100/61 09/29/16 22:15 78 27 H 110/60 09/29/16 22:01 80 21 110/53 09/29/16 21:45 80 29 H 110/53 09/29/16 21:30 88 29 H 93/41 09/29/16 21:15 87 25 H 77/35 09/29/16 21:00 86 28 H 98/45 09/29/16 20:45 81 25 H 93/46 09/29/16 20:30 80 25 H 92/43 09/29/16 20:15 77 29 H 111/90 09/29/16 20:00 82 82 29 H 91/51 09/29/16 19:55 82 30 H 09/29/16 19:47 97.6 F 06/17 19:45 82 83 29 H 30 H 139/66 09/29/16 19:40 83 139/66 09/29/16 19:30 78 33 H 139/66 09/29/16 19:15 81 30 H 131/63 09/29/16 19:01 82 33 H 136/51 09/29/16 18:45 81 28 H 140/91 09/29/16 18:31 80 29 H 140/86 09/29/16 18:15 80 31 H 124/83 09/29/16 18:00 77 30 H 171/104 09/29/16 17:45 77 30 H 158/73 09/29/16 17:30 123 H 27 H 09/29/16 17:15 112 H 18 09/29/16 17:01 125 H 20 53/28 09/29/16 16:45 111 H 25 H 104/51 09/29/16 16:31 114 H 27 H 84/55 09/29/16 16:15 133 H 28 H 72/43 09/29/16 16:00 97.4 F L 132 H 24 107/49 09/29/16 15:39 168 H 6 L 107/49 09/29/16 15:31 165 H 31 H 107/49 09/29/16 15:01 157 H 32 H 78/55 09/29/16 14:31 95 H 30 H 106/50 09/29/16 14:20 88 20 09/29/16 14:00 81 26 H 100/44 09/29/16 13:55 84 22 09/29/16 13:30 80 26 H 90/42 09/29/16 13:20 85 30 H 90/42 09/29/16 13:01 93 H 33 H 86/47 09/29/16 12:30 84 23 116/45 09/29/16 12:00 97.2 F L 87 33 H 99/56 09/29/16 11:59 84 29 H 09/29/16 11:45 82 94/38 09/29/16 11:30 76 29 H 94/38 09/29/16 11:01 89 28 H 111/42 09/29/16 10:31 74 27 H 101/49 Pulse Ox 09/30/16 09:00 100 09/30/16 08:24 09/30/16 08:00 99 09/30/16 07:49 100 09/30/16 07:42 09/30/16 07:34 100 09/30/16 07:01 100 09/30/16 06:45 100 09/30/16 06:31 100 09/30/16 06:15 100 09/30/16 06:00 100 09/30/16 05:45 99 09/30/16 05:30 99 09/30/16 05:15 100 09/30/16 05:01 100 09/30/16 04:45 99 09/30/16 04:30 100 09/30/16 04:15 100 09/30/16 04:00 100 09/30/16 03:50 100 09/30/16 03:45 100 09/30/16 03:30 99 09/30/16 03:15 99 09/30/16 03:00 100 09/30/16 02:45 99 09/30/16 02:30 100 09/30/16 02:15 100 09/30/16 02:10 09/30/16 02:00 100 09/30/16 01:45 100 09/30/16 01:30 100 09/30/16 01:15 100 09/30/16 01:00 100 09/30/16 00:45 100 09/30/16 00:35 100 09/30/16 00:30 100 09/30/16 00:15 100 09/30/16 00:01 100 09/30/16 00:00 100 09/29/16 23:50 100 09/29/16 23:45 100 09/29/16 23:30 100 09/29/16 23:15 98 09/29/16 23:00 100 09/29/16 22:45 100 09/29/16 22:37 09/29/16 22:31 99 09/29/16 22:15 100 09/29/16 22:01 100 09/29/16 21:45 100 09/29/16 21:30 100 09/29/16 21:15 100 09/29/16 21:00 100 09/29/16 20:45 99 09/29/16 20:30 100 09/29/16 20:15 100 09/29/16 20:00 100 09/29/16 19:55 09/29/16 19:47 09/29/16 19:45 100 09/29/16 19:40 100 09/29/16 19:30 100 09/29/16 19:15 100 09/29/16 19:01 100 09/29/16 18:45 100 09/29/16 18:31 100 09/29/16 18:15 100 09/29/16 18:00 100 09/29/16 17:45 100 09/29/16 17:30 99 09/29/16 17:15 100 09/29/16 17:01 100 09/29/16 16:45 100 09/29/16 16:31 99 09/29/16 16:15 100 09/29/16 16:00 99 09/29/16 15:39 100 09/29/16 15:31 100 09/29/16 15:01 100 09/29/16 14:31 98 09/29/16 14:20 09/29/16 14:00 97 09/29/16 13:55 09/29/16 13:30 09/29/16 13:20 100 09/29/16 13:01 100 09/29/16 12:30 100 09/29/16 12:00 100 09/29/16 11:59 100 09/29/16 11:45 09/29/16 11:30 96 09/29/16 11:01 97 09/29/16 10:31 98 - Physical Examination General: Other (intubated on the vent) HEENT: Positive: PERRL, Normocephaly, Mucus Membranes Moist Neck: Positive: neck supple. Negative: JVD/HJR Cardiac: Positive: Irregularly Regular Lungs: Positive: Ventilated Respirations Neuro: Positive: Other (sedated, on the vent) Abdomen: Positive: Unremarkable, Soft Skin: Positive: Clear Extremities: Absent: edema - Labs and Meds Comprehensive Metabolic Panel 09/30/16 Range/Units 08:30 Sodium 142 (137-145) mmol/L Potassium 3.5 L (3.6-5.0) mmol/L Chloride 108.5 H (98-107) mmol/L Carbon Dioxide 22 (22-30) mmol/L BUN 22 H (7-17) mg/dL Creatinine 0.4 L (0.7-1.2) mg/dL Glucose 223 H (65-100) mg/dL Calcium 7.8 L (8.4-10.2) mg/dL - Allied health notes Allied health notes reviewed: RT
[2016-09-30] MEDS ORDERED: MAGNESIUM SULFATE IV ONE (10:14)
--- NOTE | 2016-09-30 11:11 | Anesthesia Consultation ---
Anesthesia Consult and Med Hx Date of service: 09/30/16 - Airway Anesthetic Teeth Evaluation: Poor (unable to access due to intubated) - Pre-Operative Health Status ASA Pre-Surgery Classification: ASA4, ASA5 Proposed Anesthetic Plan: General, MAC - Pre-Anesthesia Comment Pre-Anesthesia Comments: Pt is intubated/altered mental status. Phone consent from sister Leanne Singh. - Pulmonary Hx Asthma: No Hx Respiratory Symptoms: Yes (Acute Hypoxemic Hypercapnic Resp Failure intubated since 08/26) COPD: No Hx Pneumonia: Yes Hx Sleep Apnea: Yes - Cardiovascular System Hx Hypertension: Yes (CHF 2D Echo 06/26 showed EF 50-55%) Hx Cardia Arrhythmia: Yes (Afib with RVR with hypotension, on amiodarone and levophed drips) - Central Nervous System Hx Neuromuscular Disorder: Yes (functional quadriplegia) Hx Seizures: Yes (was on propofol drip, likely due to anoxic shankar injury) - Endocrine Hx End Stage Renal Disease: No Hx Non-Insulin Dependent Diabetes: Yes - Hematic Hx Anemia: Yes (9 PRBC since Admission) - Other Systems Hx Cancer: No Hx Obesity: Yes (BMI 67)
[2016-09-30] MEDS ORDERED: POTASSIUM CHLORIDE FEEDTUBE ONE (12:00)
[2016-09-30] MEDS ORDERED: MAGNESIUM SULFATE 2GM/50ML 2 GM/50 ML BAG IV ONE (12:00)
--- NOTE | 2016-09-30 14:25 | Progress Note ---
Assessment and Plan Assessment and plan: Patient is a 61-year-old morbid obese woman with a history of congestive heart failure, severe protein calorie malnutrition (bilateral mandaeism muscle severe wasting, hypothenar muscle wasting) with BMI of 81.6, functional quadriplegia, type 2 diabetes mellitus, hypertension, multiple skin breakdown between legs and thighs who presented to the hospital via EMS with AMS. 2D echocardiogram with ejection fraction of 50-55%. During the past admission, patient was recommended for placement but refused. On presentation to ED, patient was felt to be unable to maintain her airways and intubated the ER since 08/29/16. 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, poa: supportative care -Acute on chronic diastolic congestive heart failure: treated with diuresis -Acute on chronic respiratory failure, intubated > 96 hours -Septic shock off IV solucorticef and midodrine -Severe anemia s/p blood transfusion: monitor cbc closely altered -Paroxysmal atrial fibrillation -Non-ST elevated NE type 2: Conservative management -Acute on chronic kidney disease III, likely secondary to vasomotor nephropathy- POA -Transaminitis-elevated alkaline phosphatase and AST: continue to monitor -Severe protein calorie malnutrition albumin 1.2 -Morbid obesity BMI 81.6 -Mulitple PRESSURE ULCERS-POA: consulted wound care -uncontrolled dm: increased ssi -Acute anemia with drop in HCT s/p 5 units of PRBC transfused so far. Ordered 2 more units. -Levaphed restarted last night 09/20/16 -Unable to get CT head due to weight issues -Dvt prophylaxis: scd only due to the anemia Disposition: LTAC declined, case management is working on plan DNR 09/04/16 , boyfriendTad agreed to blood transfusion, hgb is 6.0 will transfuse 2 units==>h/h steady, continue to monitor 09/05/16: Overnight was very eventful. New issue: Status epilepticus most likely due to anoxic brain injury, poa. She is back on 8 mcg of Levophed, which had weaned off up to the point of seizure activity Patient had status epilepticus before receiving blood transfusions. She was given multiple doses of Ativan and was still having breakthrough seizures. She was given phenobarbital and Dilantin but still having seizures. I started propofol drip which is helping. She still on IV Ativan drip also. Difficult family dynamics: Her son (she has multiple children), Srikanth and sister Leanne were at her bedside and well as her boyfriend who is not her legal , which he told me. They are upset because they didn't know patient was in the hospital. It appears the gentleman in the room is her boyfriend and not her legal He also did not notify the family the patient was here. That gentleman who is her boyfriend dropped the patient's wallet and our security called the number inside the wallet which was patient's mother's number and this is how the family found out that patient was in the hospital. I was told by RN, that patient has no , patient has 7 siblings and they are estranged from mother. No legal POA but sister Leanne is active in sister's life. Her boyfriend name is Tad Vieyra and he has consistently been at her beside, holding her hand and being supportive. 09/10/16 (resumed care): Trying to get to LTAC, still on 2 mcg of Levaphed but not sedated==>?Significant anoxic brain injury most likely poa, Ethic committee consulted because some family members want to withdraw. 09/11/16, Trach aspirated GNR, continue abx pending identification, off levaphed today. Trying to get to LTAC, they can trach her there. Only [facility] takes her insurance 09/12/16 Trach aspirate still pending, new issue of hypothermia, responded to [facility], tube feeding low rate due to high residuals, abd xray unremarkable. Potassium replaced. No restraints needs, no sedation needed, poor prognosis 09/15/16(resumed care): new issue seizure, gave 1mg iv ativan x 1. Awaiting to go to [facility], they want to trach and peg when she gets there. 09/16-11/26: cpm, no new seizures. 09/18/16: [facility] did not accept patient, so trach and peg here. Patient has been intubated since 08/29/16. 09/19/16 no new issue, trying to wean 09/20/16: d/w boyfriend at bedside. He believes she is having purposefully spontaneous movements, like blinking. Heart rate went up to 150s but spontaneously went down without any medications given. 09/21/16: Overnight she became hypotensive, Levophed drip restarted at 12mcg, hgb found to be 4.6, blood transfusions ordered, hyperglycemic worse, so Levemir increased, She has apneic breathing on vent, POOR sign, anticipate w/in 48 hours because she will tire out. 09/29/16 Resumed care of Ms. Ashley, she is currently tachycardiac, HR 200s and SBP 70s. She has SVT. Ordered Amiodarone 300mg iv x 1 bolus and nss bolus 500ml and bp improved. Once bolus stopped sbp dropped below 90 again so gave another 500ml ns bolus x 1. Amiodrone iv bolus still pending. Reconsulted Cardiology. He had twitches are back. Given iv ativan last night. Start Amiodarone drip after. May need to re-start Levophed. I have kindly asked nurse to notify CCM also. Patient has lost approximately 85 lbs, hopefully Medicaid [facility] will re- consider. I believe the seizures are manifestation of anoxic brain injury, poa. Surgeron considering peg/trach on . CCT 40 minutes 09/30/16 She was off Levophed drip this morning. On Amiodarone drip, Cardiology re-called and they are following again. History Interval history: Patient seen and examined. Follow up on respiratory failure. Patient still intubated. Hospitalist Physical - Physical exam Narrative exam: GEN: Critically ill, morbid obese BMI 81.6, intubated, apneic breathing==>bmi now 67.3 HEENT: Pupils are pinpoint and reactive, ET tube in place CVS: irregular irregular NORMAL S1S2 LUNGS/CHEST: NORMAL CHEST EXPANSION B, GOOD AIR ENTRY B ABD: SOFT, NONDISTENDED GBS, NO REBOUND OR GUARDING NEURO: doesn't follow commands PSY: Comatose - Constitutional Vitals: Temp Pulse Resp BP Pulse Ox 97.6 F 85 31 H 114/43 100 09/30/16 12:51 09/30/16 13:57 09/30/16 13:57 09/30/16 12:00 09/30/16 12:00 General appearance: Present: obese Results - Labs CBC & Chem 7: 09/28/16 04:00 09/30/16 08:30 Labs: Laboratory Last Values WBC 7.8 K/mm3 (4.5-11.0) 09/28/16 04:00 RBC 3.00 M/mm3 (3.65-5.03) L 09/28/16 04:00 Hgb 9.4 gm/dl (10.1-14.3) L 09/28/16 04:00 Hct 28.7 % (30.3-42.9) L 09/28/16 04:00 MCV 96 fl (79-97) 09/28/16 04:00 MCH 31 pg (28-32) 09/28/16 04:00 MCHC 33 % (30-34) 09/28/16 04:00 RDW 19.1 % (13.2-15.2) H 09/28/16 04:00 Plt Count 258 K/mm3 (140-440) 09/28/16 04:00 Lymph % (Auto) 15.6 % (13.4-35.0) 08/30/16 10:30 [place] % (Auto) 5.1 % (0.0-7.3) 08/30/16 10:30 Eos % (Auto) 0.6 % (0.0-4.3) 08/30/16 10:30 Baso % (Auto) 0.1 % (0.0-1.8) 08/30/16 10:30 Lymph # 1.7 K/mm3 (1.2-5.4) 08/30/16 10:30 [place] # 0.6 K/mm3 (0.0-0.8) 08/30/16 10:30 Eos # 0.1 K/mm3 (0.0-0.4) 08/30/16 10:30 Baso # 0.0 K/mm3 (0.0-0.1) 08/30/16 10:30 Add Manual Diff Complete 09/02/16 05:00 Total Counted 100 09/02/16 05:00 Seg Neutrophils % 78.6 % (40.0-70.0) H 08/30/16 10:30 Seg Neuts % (Manual) 72.0 % (40.0-70.0) H 09/02/16 05:00 Band Neutrophils % 9.0 % 09/02/16 05:00 Lymphocytes % (Manual) 15.0 % (13.4-35.0) 09/02/16 05:00 Reactive Lymphs % (Man) 0 % 09/02/16 05:00 Monocytes % (Manual) 4.0 % (0.0-7.3) 09/02/16 05:00 Eosinophils % (Manual) 0 % (0.0-4.3) 09/02/16 05:00 Basophils % (Manual) 0 % (0.0-1.8) 09/02/16 05:00 Metamyelocytes % 0 % 09/02/16 05:00 Myelocytes % 0 % 09/02/16 05:00 Promyelocytes % 0 % 09/02/16 05:00 Blast Cells % 0 % 09/02/16 05:00 Nucleated RBC % 25.0 % (0.0-0.9) H 09/02/16 05:00 Seg Neutrophils # 8.7 K/mm3 (1.8-7.7) H 08/30/16 10:30 Seg Neutrophils # Man 8.9 K/mm3 (1.8-7.7) H 09/02/16 05:00 Band Neutrophils # 1.1 K/mm3 09/02/16 05:00 Lymphocytes # (Manual) 1.8 K/mm3 (1.2-5.4) 09/02/16 05:00 Abs React Lymphs (Man) 0.0 K/mm3 09/02/16 05:00 Monocytes # (Manual) 0.5 K/mm3 (0.0-0.8) 09/02/16 05:00 Eosinophils # (Manual) 0.0 K/mm3 (0.0-0.4) 09/02/16 05:00 Basophils # (Manual) 0.0 K/mm3 (0.0-0.1) 09/02/16 05:00 Metamyelocytes # 0.0 K/mm3 09/02/16 05:00 Myelocytes # 0.0 K/mm3 09/02/16 05:00 Promyelocytes # 0.0 K/mm3 09/02/16 05:00 Blast Cells # 0.0 K/mm3 09/02/16 05:00 WBC Morphology Not Reportable 09/02/16 05:00 Hypersegmented Neuts Not Reportable 09/02/16 05:00 Hyposegmented Neuts Not Reportable 09/02/16 05:00 Hypogranular Neuts Not Reportable 09/02/16 05:00 Smudge Cells Not Reportable 09/02/16 05:00 Toxic Granulation Not Reportable 09/02/16 05:00 Toxic Vacuolation Not Reportable 09/02/16 05:00 Dohle Bodies Not Reportable 09/02/16 05:00 Pelger-Huet Anomaly Not Reportable 09/02/16 05:00 Feli Rods Not Reportable 09/02/16 05:00 Platelet Estimate Consistent w auto 09/02/16 05:00 Clumped Platelets Not Reportable 09/02/16 05:00 Plt Clumps, EDTA Not Reportable 09/02/16 05:00 Large Platelets Not Reportable 09/02/16 05:00 Giant Platelets Not Reportable 09/02/16 05:00 Platelet Satelliting Not Reportable 09/02/16 05:00 Plt Morphology Comment Not Reportable 09/02/16 05:00 RBC Morphology Not Reportable 09/02/16 05:00 Dimorphic RBCs Not Reportable 09/02/16 05:00 Polychromasia Rare 09/02/16 05:00 Hypochromasia Not Reportable 09/02/16 05:00 Poikilocytosis Not Reportable 09/02/16 05:00 Anisocytosis 1+ 09/02/16 05:00 Microcytosis Not Reportable 09/02/16 05:00 Macrocytosis 1+ 09/02/16 05:00 Spherocytes Not Reportable 09/02/16 05:00 Pappenheimer Bodies Not Reportable 09/02/16 05:00 Sickle Cells Not Reportable 09/02/16 05:00 Target Cells Not Reportable 09/02/16 05:00 Tear Drop Cells Not Reportable 09/02/16 05:00 Ovalocytes Not Reportable 09/02/16 05:00 Helmet Cells Not Reportable 09/02/16 05:00 [place] Bodies Not Reportable 09/02/16 05:00 [place] Rings Not Reportable 09/02/16 05:00 [place] Cells Not Reportable 09/02/16 05:00 Bite Cells Not Reportable 09/02/16 05:00 Crenated Cell Not Reportable 09/02/16 05:00 Elliptocytes Not Reportable 09/02/16 05:00 Acanthocytes (Spur) Not Reportable 09/02/16 05:00 Rouleaux Not Reportable 09/02/16 05:00 Hemoglobin C Crystals Not Reportable 09/02/16 05:00 Schistocytes Not Reportable 09/02/16 05:00 Malaria parasites Not Reportable 09/02/16 05:00 Manny Bodies Not Reportable 09/02/16 05:00 Hem Pathologist Commnt No 09/02/16 05:00 PT 13.8 Sec. (12.2-14.9) 09/10/16 05:10 INR 1.07 (0.87-1.13) 09/10/16 05:10 APTT 29.5 Sec. (24.2-36.6) 08/29/16 17:40 POC ABG pH 7.460 (7.35-7.45) H 09/22/16 03:26 POC ABG pCO2 29.9 (35-45) L 09/22/16 03:26 POC ABG pO2 112 (80-105) H 09/22/16 03:26 POC ABG HCO3 21.3 09/22/16 03:26 POC ABG Total CO2 22 09/22/16 03:26 POC ABG O2 Sat 99 09/22/16 03:26 POC ABG Base Excess -3 09/22/16 03:26 VBG pH 7.366 (7.320-7.420) 08/29/16 17:40 FiO2 25 % 09/22/16 03:26 Sodium 142 mmol/L (137-145) 09/30/16 08:30 Potassium 3.5 mmol/L (3.6-5.0) L 09/30/16 08:30 Chloride 108.5 mmol/L (98-107) H 09/30/16 08:30 Carbon Dioxide 22 mmol/L (22-30) 09/30/16 08:30 Anion Gap 15 mmol/L 09/30/16 08:30 BUN 22 mg/dL (7-17) H 09/30/16 08:30 Creatinine 0.4 mg/dL (0.7-1.2) L 09/30/16 08:30 Estimated GFR > 60 ml/min 09/30/16 08:30 BUN/Creatinine Ratio 55.00 % 09/30/16 08:30 Glucose 223 mg/dL (65-100) H 09/30/16 08:30 POC Glucose 286 (70-105) H 09/30/16 11:48 Lactic Acid 1.90 mmol/L (0.7-2.0) 09/07/16 15:00 Calcium 7.8 mg/dL (8.4-10.2) L 09/30/16 08:30 Phosphorus 3.60 mg/dL (2.5-4.5) 08/29/16 21:59 Magnesium 1.50 mg/dL (1.7-2.3) L 09/30/16 08:30 Total Bilirubin 0.70 mg/dL (0.1-1.2) 09/11/16 05:00 AST 167 units/L (5-40) H 09/11/16 05:00 ALT 145 units/L (7-56) H 09/11/16 05:00 Alkaline Phosphatase 631 units/L (35-129) H 09/11/16 05:00 Ammonia 39.0 umol/L (25-60) 09/07/16 15:00 Total Creatine Kinase 36 units/L (30-135) 09/06/16 11:07 CK-MB (CK-2) < 1.0 ng/mL (0.0-4.0) 09/06/16 11:07 CK-MB (CK-2) Rel Index 2.7 (0-4) 09/06/16 11:07 Troponin T 0.080 ng/mL (0.00-0.029) H 09/06/16 11:07 C-Reactive Protein 10.20 mg/dL (0.00-1.30) H 08/30/16 22:20 NT-Pro-B Natriuret Pep 1712 pg/mL (0-900) H 08/29/16 17:40 Total Protein 5.1 g/dL (6.3-8.2) L 09/11/16 05:00 Albumin 1.6 g/dL (3.9-5) L 09/11/16 05:00 Albumin/Globulin Ratio 0.5 % 09/11/16 05:00 Prealbumin 0.120 g/L (0.200-0.400) L 08/29/16 21:59 Triglycerides 225 mg/dL (2-149) H 08/29/16 17:40 Cholesterol 130 mg/dL (50-199) 08/29/16 17:40 LDL Cholesterol Direct 82 mg/dL (50-130) 08/29/16 17:40 HDL Cholesterol 3 mg/dL (40-59) L 08/29/16 17:40 Cholesterol/HDL Ratio 43.33 % 08/29/16 17:40 TSH 5.220 mlU/mL (0.270-4.200) H 09/09/16 18:10 Urine Color Yellow (Yellow) 08/31/16 15:37 Urine Turbidity Clear (Clear) 08/31/16 15:37 Urine pH 5.0 (5.0-7.0) 08/31/16 15:37 Ur Specific [place] 1.009 (1.003-1.030) 08/31/16 15:37 Urine Protein <15 mg/dl mg/dL (Negative) 08/31/16 15:37 Urine Glucose (UA) Neg mg/dL (Negative) 08/31/16 15:37 Urine Ketones Neg mg/dL (Negative) 08/31/16 15:37 Urine Blood Sm (Negative) 08/31/16 15:37 Urine Nitrite Neg (Negative) 08/31/16 15:37 Urine Bilirubin Neg (Negative) 08/31/16 15:37 Urine Urobilinogen < 2.0 mg/dL (<2.0) 08/31/16 15:37 Ur Leukocyte Esterase Sm (Negative) 08/31/16 15:37 Urine WBC (Auto) 3.0 /HPF (0.0-6.0) 08/31/16 15:37 Urine RBC (Auto) 1.0 /HPF (0.0-6.0) 08/31/16 15:37 U Epithel Cells (Auto) < 1.0 /HPF (0-13.0) 08/31/16 15:37 Urine Bacteria (Auto) 1+ /HPF (Negative) 08/31/16 15:37 Hyaline Casts 5 /LPF 08/31/16 15:37 Urine Mucus Few /HPF 08/31/16 15:37 Blood Type O POSITIVE 09/21/16 08:20 Antibody Screen TNR 09/21/16 08:20 PATRICK Antibody Screen Negative 09/21/16 08:20 Crossmatch See Detail 09/21/16 08:20
[2016-09-30] MEDS ORDERED: ceFAZolin 2 GM in NACL 0.9% 100 ML IV ONE (16:01)
--- NOTE | 2016-09-30 16:01 | Progress Note ---
Assessment and Plan A/P: 1) The patient is scheduled for a trach/PEG tomorrow. 2. NPO past midnight (hold tube feeds). Subjective Date of service: 09/30/16 Narrative: The patient remains intubated. She is not on any vasopressors. Objective Vital Signs - 12hr 09/30/16 09/30/16 09/30/16 04:00 04:15 04:30 Temperature Pulse Rate 94 H 85 78 Pulse Rate [ Anterior Bilateral Throughout] Pulse Rate [ 94 H From Monitor] Respiratory 36 H 32 H 35 H Rate Respiratory Rate [Anterior Bilateral Throughout] Blood Pressure 123/51 103/35 128/52 O2 Sat by Pulse 100 100 100 Oximetry 09/30/16 09/30/16 09/30/16 04:45 05:01 05:15 Temperature Pulse Rate 95 H 92 H Pulse Rate [ Anterior Bilateral Throughout] Pulse Rate [ From Monitor] Respiratory 34 H 35 H Rate Respiratory Rate [Anterior Bilateral Throughout] Blood Pressure 132/51 151/81 139/75 O2 Sat by Pulse 99 100 100 Oximetry 09/30/16 09/30/16 09/30/16 05:30 05:45 06:00 Temperature Pulse Rate 98 H 89 92 H Pulse Rate [ Anterior Bilateral Throughout] Pulse Rate [ From Monitor] Respiratory 40 H 38 H 26 H Rate Respiratory Rate [Anterior Bilateral Throughout] Blood Pressure 143/74 160/92 128/67 O2 Sat by Pulse 99 99 100 Oximetry 09/30/16 09/30/16 09/30/16 06:15 06:31 06:45 Temperature Pulse Rate 94 H 82 78 Pulse Rate [ Anterior Bilateral Throughout] Pulse Rate [ From Monitor] Respiratory 33 H 26 H 25 H Rate Respiratory Rate [Anterior Bilateral Throughout] Blood Pressure 127/54 117/54 92/44 O2 Sat by Pulse 100 100 100 Oximetry 09/30/16 09/30/16 09/30/16 07:01 07:34 07:42 Temperature Pulse Rate 83 92 H Pulse Rate [ 92 H Anterior Bilateral Throughout] Pulse Rate [ From Monitor] Respiratory 28 H 30 H Rate Respiratory 34 H Rate [Anterior Bilateral Throughout] Blood Pressure 93/49 85/46 O2 Sat by Pulse 100 100 Oximetry 09/30/16 09/30/16 09/30/16 07:49 08:00 08:24 Temperature 97.4 F L Pulse Rate 87 Pulse Rate [ 91 H Anterior Bilateral Throughout] Pulse Rate [ 88 From Monitor] Respiratory 30 H 16 Rate Respiratory 33 H Rate [Anterior Bilateral Throughout] Blood Pressure 98/42 O2 Sat by Pulse 100 99 Oximetry 09/30/16 09/30/16 09/30/16 09:00 10:01 11:00 Temperature Pulse Rate 88 90 78 Pulse Rate [ Anterior Bilateral Throughout] Pulse Rate [ From Monitor] Respiratory 24 30 H 31 H Rate Respiratory Rate [Anterior Bilateral Throughout] Blood Pressure 110/50 105/60 120/51 O2 Sat by Pulse 100 100 99 Oximetry 09/30/16 09/30/16 09/30/16 11:30 12:00 12:51 Temperature 97.6 F Pulse Rate 92 H 94 H Pulse Rate [ Anterior Bilateral Throughout] Pulse Rate [ From Monitor] Respiratory 32 H Rate Respiratory Rate [Anterior Bilateral Throughout] Blood Pressure 118/60 114/43 O2 Sat by Pulse 100 100 Oximetry 09/30/16 09/30/16 13:57 14:43 Temperature Pulse Rate Pulse Rate [ 85 92 H Anterior Bilateral Throughout] Pulse Rate [ From Monitor] Respiratory Rate Respiratory 31 H 34 H Rate [Anterior Bilateral Throughout] Blood Pressure O2 Sat by Pulse Oximetry - Neck no masses, trachea midline - Abdomen soft (obese) - Labs 09/28/16 04:00 09/30/16 08:30 Diabetes panel 09/30/16 Range/Units 08:30 Sodium 142 (137-145) mmol/L Potassium 3.5 L (3.6-5.0) mmol/L Chloride 108.5 H (98-107) mmol/L Carbon Dioxide 22 (22-30) mmol/L BUN 22 H (7-17) mg/dL Creatinine 0.4 L (0.7-1.2) mg/dL Glucose 223 H (65-100) mg/dL Calcium 7.8 L (8.4-10.2) mg/dL Calcium panel 09/30/16 Range/Units 08:30 Calcium 7.8 L (8.4-10.2) mg/dL Pituitary panel 09/30/16 Range/Units 08:30 Sodium 142 (137-145) mmol/L Potassium 3.5 L (3.6-5.0) mmol/L Chloride 108.5 H (98-107) mmol/L Carbon Dioxide 22 (22-30) mmol/L BUN 22 H (7-17) mg/dL Creatinine 0.4 L (0.7-1.2) mg/dL Glucose 223 H (65-100) mg/dL Calcium 7.8 L (8.4-10.2) mg/dL Adrenal panel 09/30/16 Range/Units 08:30 Sodium 142 (137-145) mmol/L Potassium 3.5 L (3.6-5.0) mmol/L Chloride 108.5 H (98-107) mmol/L Carbon Dioxide 22 (22-30) mmol/L BUN 22 H (7-17) mg/dL Creatinine 0.4 L (0.7-1.2) mg/dL Glucose 223 H (65-100) mg/dL Calcium 7.8 L (8.4-10.2) mg/dL
[2016-09-30] MEDS ORDERED: HEPARIN SUB-Q NR (16:15)
[2016-09-30 18:10] LABS: INR 1.13 (0.87-1.13)
[2016-09-30 18:56] LABS: Partial Thromboplastin Time 30.7 Sec. (24.2-36.6)
[2016-09-30] MEDS: CORDARONE 900 MG in D5W 482 ML IV SCH (21:41)
[2016-10-01] MEDS: NOVOLOG SUB-Q SCH ×7 (01:13→23:02)
[2016-10-01] MEDS: DUONEB 0.5 MG-3 MG/3 ML SOLN IH SCH ×4 (01:57→19:42)
[2016-10-01] MEDS ORDERED: ANCEF/STERILE WATER 2 GM/20 ML 2 GM/20 ML SYRINGE IV SCH (06:00)
[2016-10-01] MEDS: PROAMATINE PO SCH ×3 (06:18→21:05)
[2016-10-01] MEDS ORDERED: NEO SYNEPHRINE ONE (07:33)
[2016-10-01] MEDS ORDERED: ZEMURON IV ONE (07:33)
[2016-10-01] MEDS ORDERED: SUBLIMAZE ONE (07:33)
[2016-10-01] MEDS ORDERED: NACL 0.9% 1000 ML 1,000 ML ONE ×2 (07:34→09:38)
[2016-10-01] MEDS ORDERED: VERSED ONE ×2 (07:36→10:40)
[2016-10-01] MEDS ORDERED: WATER FOR IRRIG STERILE IR ONE ×2 (08:31→09:40)
[2016-10-01] MEDS ORDERED: MARCAINE 0.25% INFILTRATI ONE (08:39)
[2016-10-01] MEDS ORDERED: METHYLENE BLUE ONE (08:40)
[2016-10-01 09:08] LABS: Basophils % (Auto) 0.4 % (0.0-1.8); Eosinophils % (Auto) 1.1 % (0.0-4.3); Hematocrit 26.5 % (30.3-42.9); Hemoglobin 8.5 gm/dl (10.1-14.3); Mean Corpuscular HGB Conc 32 % (30-34); Mean Corpuscular Hemoglobin 31 pg (28-32); Mean Corpuscular Volume 97 fl (79-97); Platelet Count 272 K/mm3 (140-440); Red Blood Count 2.75 M/mm3 (3.65-5.03); White Blood Count 11.7 K/mm3 (4.5-11.0)
[2016-10-01] MEDS ORDERED: ROBINUL ONE (09:08)
[2016-10-01 09:13] LABS: Anion Gap 14 mmol/L; Blood Urea Nitrogen 20 mg/dL (7-17); Calcium 7.9 mg/dL (8.4-10.2); Carbon Dioxide 22 mmol/L (22-30); Glucose 137 mg/dL (65-100); Potassium 3.7 mmol/L (3.6-5.0); Sodium 140 mmol/L (137-145)
[2016-10-01] MEDS ORDERED: ANCEF/STERILE WATER 2 GM/20 ML 4 GM/40 ML SYRINGE IV ONE (09:19)
[2016-10-01] MEDS ORDERED: ZOFRAN ONE (09:30)
[2016-10-01] MEDS ORDERED: NACL 0.9% IR ONE (09:36)
[2016-10-01] MEDS ORDERED: NACL 0.9% 100 ML ONE (09:38)
[2016-10-01] MEDS ORDERED: ARTIFICIAL TEARS OPHTH OINT ONE (09:38)
--- NOTE | 2016-10-01 10:32 | Progress Note ---
Assessment and Plan Altered mental status/encephalopathy Chronic respiratory failure intubated on the vent Anemia requiring blood transfusion Morbid Obesity Decubitus ulcers Diabetes Afib with RVR -on IV amiodarone AND/DNR status EF 50-55% on echo 06/2016. Subjective Date of service: 10/01/16 Principal diagnosis: Acute Hypoxemic Hypercapnic Resp Failure; Severe Sepsis Interval history: Remains on IV amiodarone drip. Objective Vital Signs Temp Pulse Pulse Pulse Resp Resp BP 10/01/16 08:19 71 27 H 10/01/16 08:00 97.4 F L 75 30 H 119/58 10/01/16 07:42 98 H 33 H 10/01/16 07:35 78 10/01/16 07:00 70 26 H 123/56 10/01/16 06:00 71 25 H 128/51 10/01/16 05:00 82 29 H 125/47 10/01/16 04:12 89 138/64 10/01/16 04:00 97.7 F 91 H 81 32 H 138/64 10/01/16 03:01 81 29 H 114/46 10/01/16 02:07 90 24 10/01/16 02:00 85 25 H 124/63 10/01/16 01:57 85 28 H 10/01/16 01:00 79 26 H 138/57 10/01/16 00:05 85 120/61 10/01/16 00:00 89 75 32 H 114/79 09/30/16 23:44 97.8 F 09/30/16 23:00 77 25 H 113/61 09/30/16 22:00 91 H 32 H 117/60 09/30/16 21:00 93 H 31 H 120/50 09/30/16 20:45 82 32 H 117/57 09/30/16 20:11 87 30 H 09/30/16 20:01 87 33 H 09/30/16 20:00 97.6 F 87 86 36 H 127/46 09/30/16 19:55 87 114/46 09/30/16 19:00 92 H 33 H 121/63 09/30/16 18:00 86 32 H 115/61 09/30/16 17:00 82 31 H 111/55 09/30/16 16:18 77 126/54 09/30/16 16:09 97.5 F L 06/21/17 16:01 89 33 H 126/54 09/30/16 16:00 85 27 H 09/30/16 15:01 88 37 H 150/64 09/30/16 14:43 92 H 34 H 09/30/16 14:01 74 28 H 99/43 09/30/16 13:57 85 31 H 09/30/16 13:00 89 33 H 115/49 09/30/16 12:51 97.6 F 09/30/16 12:00 94 H 32 H 114/43 09/30/16 11:30 92 H 118/60 09/30/16 11:00 78 31 H 120/51 Pulse Ox 10/01/16 08:19 10/01/16 08:00 100 10/01/16 07:42 10/01/16 07:35 100 10/01/16 07:00 100 10/01/16 06:00 100 10/01/16 05:00 100 10/01/16 04:12 98 10/01/16 04:00 99 10/01/16 03:01 100 10/01/16 02:07 10/01/16 02:00 99 10/01/16 01:57 10/01/16 01:00 99 10/01/16 00:05 100 10/01/16 00:00 98 09/30/16 23:44 09/30/16 23:00 100 09/30/16 22:00 98 09/30/16 21:00 99 09/30/16 20:45 100 09/30/16 20:11 09/30/16 20:01 09/30/16 20:00 99 09/30/16 19:55 100 09/30/16 19:00 93 09/30/16 18:00 98 09/30/16 17:00 99 09/30/16 16:18 98 09/30/16 16:09 09/30/16 16:01 96 09/30/16 16:00 09/30/16 15:01 97 09/30/16 14:43 09/30/16 14:01 100 09/30/16 13:57 09/30/16 13:00 100 09/30/16 12:51 09/30/16 12:00 100 09/30/16 11:30 100 09/30/16 11:00 99 - Physical Examination General: Other (intubated on the vent) - Labs and Meds Coagulation 09/30/16 Range/Units 17:30 PT 14.4 (12.2-14.9) Sec. INR 1.13 (0.87-1.13) APTT 30.7 (24.2-36.6) Sec. CBC 10/01/16 Range/Units 08:35 WBC 11.7 H (4.5-11.0) K/mm3 RBC 2.75 L (3.65-5.03) M/mm3 Hgb 8.5 L (10.1-14.3) gm/dl Hct 26.5 L (30.3-42.9) % Plt Count 272 (140-440) K/mm3 Lymph # 2.3 (1.2-5.4) K/mm3 [place] # 1.4 H (0.0-0.8) K/mm3 Eos # 0.1 (0.0-0.4) K/mm3 Baso # 0.1 (0.0-0.1) K/mm3 Comprehensive Metabolic Panel 10/01/16 Range/Units 08:35 Sodium 140 (137-145) mmol/L Potassium 3.7 (3.6-5.0) mmol/L Chloride 108.0 H (98-107) mmol/L Carbon Dioxide 22 (22-30) mmol/L BUN 20 H (7-17) mg/dL Creatinine 0.4 L (0.7-1.2) mg/dL Glucose 137 H (65-100) mg/dL Calcium 7.9 L (8.4-10.2) mg/dL - Allied health notes Allied health notes reviewed: RT
--- NOTE | 2016-10-01 10:48 | Post Operative Note ---
Pre-op diagnosis: Respiratory failure Post-op diagnosis: same Findings: Frozen abdomen Procedure: Laparoscopic lysis of adhesions Anesthesia: GETA, local Surgeon: KHARI MONET Estimated blood loss: minimal Pathology: none Condition: critical Disposition: ICU
--- NOTE | 2016-10-01 11:22 | Post Anesthesia Evaluation ---
- Post Anesthesia Evaluation Patient Participated: No Airway Patent: Yes Stable Respiratory Function: Yes Nausea/Vomiting: No Temp > 96.8F: Yes Pain Manageable: Yes Adequeate Hydration: Yes Anesthesia Complications: No Block Receding Appropriately: Not Applicable Patient on Ventilator: Yes
--- NOTE | 2016-10-01 11:31 | Operative Report ---
Operative Report Operative Report: Pre-op diagnosis - Respiratory failure Post-op diagnosis - Respiratory failure Procedure - Percutaneous tracheostomy Surgeon - Rahul aGmino MD Asst - Dr. Joseph Brewster MD Anesthesia - GETA EBL - minimal Complications - none Procedure - The patient was brought to the operating room. Appropriate preop antibiotics were given. A shoulder roll was placed under the patient's shoulders to hyperextend the neck. The neck was then prepped/draped in sterile fashion. 1% lidocaine was used to infiltrate the skin/soft tissue over the area of the second tracheal ring. The endotracheal tube was then pulled back to 16cm at the teeth. A finder needle was used to access the trachea. A guidewire was then passed through the needle and into the trachea. The needle was then removed and a small dilator was passed over the wire to dilate the tract. Then, the largest dilator was then used to dilate the tract more. An 8F tracheostomy was then placed over a 28F dilator and then passed into the trachea. The dilator and guidewire were then removed. End tidal CO2 was then confirmed by the ventilator. The tracheostomy was then secured into place with prolene sutures. The patient tolerated the procedure well.
--- NOTE | 2016-10-01 11:34 | Operative Report ---
Operative Report Operative Report: preop diagnosis - respiratory failure
--- NOTE | 2016-10-01 12:10 | Operative Report ---
PREOPERATIVE DIAGNOSIS: Respiratory failure. POSTOPERATIVE DIAGNOSIS: Frozen abdomen. PROCEDURE: Laparoscopic lysis of adhesions. SURGEON: Joseph Brewster MD ANESTHESIA: General and local. ESTIMATED BLOOD LOSS: Minimal. SPECIMEN: None. IMPLANTS: None. DRAINS: None. FINDINGS: Frozen abdomen. COMPLICATIONS: None. INDICATIONS: This is a 61-year-old female with a BMI of 81, who is in the OR for a tracheostomy placement and a PEG tube for her respiratory failure and attempt was made to place the PEG tube, but we could not access the stomach in the traditional manner. Therefore, a laparoscopic approach was adopted. DESCRIPTION OF PROCEDURE: We had the abdomen prepped and draped in the usual manner. I made periumbilical 5 mm incision using Veress needle technique. The abdomen was insufflated to 15 mmHg pressure. A 5 mm trocar was inserted. We immediately discovered that there was almost no window at all in her abdominal cavity and she had a frozen abdomen with the adhesions throughout this is in the patient with no known surgical history and no abdominal scars. With gentle blunt dissection using the camera, I was able to open up inoperable window to the right upper quadrant that I can place an additional 5 mm port and then using this one to help dissect, I was able to place an additional right upper quadrant port site to then proceed with our lysis of adhesions. This was done with a combination of blunt, sharp and cautery dissection. The adipose tissue and fat were fused with the liver going up over the dome of the liver as well. We had to dissect this off of the liver and take down the falciform ligament as we went. There was no bowel adhered to the abdominal wall. This was all omentum and fat, but we then had to separate the omentum from the edge of the liver in order to expose the stomach. This was again done with a lot of sharp, blunt, and cautery dissection with care being taken not to injure the surrounding structures. There were several small lacerations made to the liver parenchyma during the retraction process. The liver was extremely friable due to severe fatty infiltration, but at the end of procedure these lacerations were hemostatic and not bleeding at all. Once we had all the adhesions down in the upper abdomen, we did not proceed to do adhesions lysis in the lower abdomen. We were then able to expose the stomach and then Dr. Gamino proceeded to inflate the stomach further with his endoscope and we then proceeded to do the rest of the PEG procedure in the standard fashion, noting that when I pulled the wire and tube through the abdominal wall, I did use Betadine on the outside to coat the tube to maintain our sterile technique. At the end of procedure, once the PEG was completed and please see Dr. Gamino's note for the PEG procedure. We then closed all the incisions that were done surgically with a 4-0 Vicryl suture, Steri-Strips, and bandage. One other finding to note was when we did see some small bowel in the abdomen, the small bowel itself appeared mildly distended, suggesting that she may have an underlying mild ileus, but there was no other pathology seen during the surgery other than the diffuse adhesions with frozen abdomen. Once I was satisfied, we had good hemostasis throughout with no signs of injury to other structures. The PEG flange could be seen in the stomach flushed through the abdominal wall at around 5 cm at the skin. We then removed the port under direct vision and then closed all the incisions as described with a 4-0 Vicryl suture, Steri-Strips, and bandage. She tolerated the procedure well without complications. [facility]# [id number] [facility]
[2016-10-01] MEDS: FERROUS SULFATE PO SCH (12:46)
[2016-10-01] MEDS: FOLVITE PO SCH (12:46)
[2016-10-01] MEDS: LEVEMIR SUB-Q SCH (12:47)
[2016-10-01] MEDS: KEPPRA PO SCH ×2 (12:47→21:05)
[2016-10-01] MEDS: POTASSIUM CHLORIDE FEEDTUBE SCH (12:47)
[2016-10-01] MEDS: PROTONIX PO SCH (12:48)
[2016-10-01] MEDS: SYNTHROID PO SCH (12:48)
--- NOTE | 2016-10-01 16:02 | Progress Note ---
Assessment and Plan - Patient Problems (1) Respiratory failure Current Visit: Yes Status: Acute Qualifiers: Chronicity: C Respiratory failure complication: R Plan to address problem: Currently on mechanical ventilatory support AC-VC at night and pressure support during the day VAP bundle addressed Wean FIO2 for O2 sats>92% HOB>40, aspiration precautions VTE prophylaxis- discontinue enoxaparin in view of anemia and use SCDs Stress ulcer prophylaxis- Pantoprazole Lung protective strategies Tracheostomy placement today Continue with enteric feedings, monitor accucheck (2) Shock Current Visit: Yes Status: Acute Plan to address problem: Treated as septic shock secondary to HCAP -resolved (3) Acute on chronic diastolic (congestive) heart failure Current Visit: No Status: Acute Plan to address problem: Documented EF 55% Continue to monitoring renal function and electrolyte profile closely Monitor urine output, electrolyte profile (4) Altered mental status Current Visit: Yes Status: Acute Qualifiers: Altered mental status type: unspecified Coma depth: C Coma timing: C Qualified Code(s): R41.82 - Altered mental status, unspecified Plan to address problem: Continue to monitor (5) Morbid obesity Current Visit: Yes Status: Acute Qualifiers: Obesity type: unspecified obesity type Qualified Code(s): E66.01 - Morbid ( severe) obesity due to excess calories (6) Anemia Current Visit: Yes Status: Acute Qualifiers: Anemia type: unspecified type Iron deficiency anemia type: I Vitamin B12 deficiency anemia type: V Folate deficiency anemia type: F Bone marrow failure anemia type: B Hemolytic anemia type: H Other causes of anemia: O Chronic kidney disease stage: C Qualified Code(s): D64.9 - Anemia, unspecified Plan to address problem: Continue to monitor. CBC prn Supportive transfusions (7) Status epilepticus Current Visit: Yes Status: Acute Plan to address problem: Continue AEDs Neurology following (8) Status epilepticus due to refractory complex partial seizures Current Visit: Yes Status: Acute Plan to address problem: Keppra and Dilantin Neurology following. (9) Discharge planning issues Current Visit: Yes Status: Acute Plan to address problem: Continue current care. AND/DNR LTACH placement. PEG/Tracheostomy placement to facilitate discharge planning and on-going care (10) Dysphagia, oropharyngeal phase Current Visit: Yes Status: Acute Plan to address problem: PEG tube placement by surgery Subjective Date of service: 10/01/16 Principal diagnosis: Acute Hypoxemic Hypercapnic Resp Failure; Severe Sepsis Interval history: Remains orally intubated. Seen and examined. Vitals, labs, medications, chart and imaging reviewed. No seizures overnight Patient is now DNR in the event of cardiopulmonary arrest Tracheostomy placement and PEG placement- in OR today Tolerating spontaneous breathing trials during the day and full support at night. PS10/5, with tidal volumes of 340 AC/VC 25/400/5/25% Objective Vital Signs - 12hr 10/01/16 10/01/16 10/01/16 04:00 04:12 05:00 Temperature 97.7 F Pulse Rate 91 H 89 82 Pulse Rate [ Anterior Bilateral Throughout] Pulse Rate [ 81 From Monitor] Respiratory 32 H 29 H Rate Respiratory Rate [Anterior Bilateral Throughout] Blood Pressure 138/64 138/64 125/47 O2 Sat by Pulse 99 98 100 Oximetry 10/01/16 10/01/16 10/01/16 06:00 07:00 07:35 Temperature Pulse Rate 71 70 78 Pulse Rate [ Anterior Bilateral Throughout] Pulse Rate [ From Monitor] Respiratory 25 H 26 H Rate Respiratory Rate [Anterior Bilateral Throughout] Blood Pressure 128/51 123/56 O2 Sat by Pulse 100 100 100 Oximetry 10/01/16 10/01/16 10/01/16 07:42 08:00 08:19 Temperature 97.4 F L Pulse Rate 75 Pulse Rate [ 98 H 71 Anterior Bilateral Throughout] Pulse Rate [ 70 From Monitor] Respiratory 25 H Rate Respiratory 33 H 27 H Rate [Anterior Bilateral Throughout] Blood Pressure 119/58 O2 Sat by Pulse 100 Oximetry 10/01/16 10/01/16 10/01/16 10:58 11:00 11:02 Temperature 97.3 F L Pulse Rate 66 66 66 Pulse Rate [ Anterior Bilateral Throughout] Pulse Rate [ From Monitor] Respiratory 25 H 25 H Rate Respiratory Rate [Anterior Bilateral Throughout] Blood Pressure 117/41 110/44 110/44 O2 Sat by Pulse 99 100 99 Oximetry 10/01/16 10/01/16 10/01/16 11:05 11:10 11:15 Temperature Pulse Rate 66 67 66 Pulse Rate [ Anterior Bilateral Throughout] Pulse Rate [ From Monitor] Respiratory 25 H 25 H 25 H Rate Respiratory Rate [Anterior Bilateral Throughout] Blood Pressure 111/46 112/45 112/45 O2 Sat by Pulse 98 98 98 Oximetry 06/10/01/16 10/01/16 11:20 11:25 11:30 Temperature 96.9 F L Pulse Rate 66 66 66 Pulse Rate [ Anterior Bilateral Throughout] Pulse Rate [ From Monitor] Respiratory 25 H 25 H 25 H Rate Respiratory Rate [Anterior Bilateral Throughout] Blood Pressure 112/47 107/46 109/49 O2 Sat by Pulse 98 99 99 Oximetry 10/01/16 10/01/16 10/01/16 11:49 12:00 13:00 Temperature 97 F L Pulse Rate 66 67 66 Pulse Rate [ Anterior Bilateral Throughout] Pulse Rate [ 68 From Monitor] Respiratory 12 25 H 25 H Rate Respiratory Rate [Anterior Bilateral Throughout] Blood Pressure 115/45 103/61 O2 Sat by Pulse 88 100 98 Oximetry 10/01/16 10/01/16 14:00 14:43 Temperature Pulse Rate 70 Pulse Rate [ 66 68 Anterior Bilateral Throughout] Pulse Rate [ From Monitor] Respiratory 5 L Rate Respiratory 25 H 25 H Rate [Anterior Bilateral Throughout] Blood Pressure 122/50 O2 Sat by Pulse 99 Oximetry Constitutional: no acute distress, other (encephalopathic, orally intubated to mechanical ventilation) Eyes: non-icteric ENT: oropharynx moist, other (ETT 22cm RAFAEL) Neck: supple, no lymphadenopathy, no JVD Effort: normal, mildly labored Ascultation: Bilateral: clear, diminished breath sounds, rales (bases) Cardiovascular: regular rate and rhythm, irregular rhythm, other (S1,S2, no murmurs, gallops or rubs) Gastrointestinal: normoactive bowel sounds, hypoactive bowel sounds, soft (obese ), non-tender, non-distended Integumentary: normal, other (chronic venous stasis changes) Extremities: no cyanosis, pulses normal, no ischemia or petechiae, edema (1+) Neurologic: unable to assess, other (encephalopathic) Psychiatric: other (awake but not obeying commands, not tracking voice) CBC and BMP: 10/01/16 08:35 10/01/16 08:35 ABG, PT/INR, D-dimer: ABG POC ABG pH 7.460 (7.35-7.45) H 09/22/16 03:26 POC ABG pCO2 29.9 (35-45) L 09/22/16 03:26 POC ABG pO2 112 (80-105) H 09/22/16 03:26 POC ABG HCO3 21.3 09/22/16 03:26 POC ABG Total CO2 22 09/22/16 03:26 POC ABG O2 Sat 99 09/22/16 03:26 PT/INR, D-dimer PT 14.4 Sec. (12.2-14.9) 09/30/16 17:30 INR 1.13 (0.87-1.13) 09/30/16 17:30 Abnormal lab findings: Abnormal Labs 08/29/16 08/30/16 08/30/16 21:59 00:16 05:39 WBC RBC Hgb Hct MCV MCH MCHC RDW Plt Count [place] % (Auto) [place] # Seg Neutrophils % Seg Neuts % (Manual) Nucleated RBC % Seg Neutrophils # Seg Neutrophils # Man PT INR POC ABG pH POC ABG pCO2 POC ABG pO2 Sodium Potassium Chloride Carbon Dioxide BUN Creatinine Glucose POC Glucose 106 H 128 H Lactic Acid Calcium Magnesium Total Bilirubin AST ALT Alkaline Phosphatase Ammonia Troponin T C-Reactive Protein Total Protein Albumin Prealbumin 0.120 L TSH Crossmatch 08/30/16 08/30/16 08/30/16 10:30 10:30 11:12 WBC 11.1 H RBC 3.16 L Hgb 8.7 L Hct 29.9 L MCV MCH MCHC 29 L RDW 25.0 H Plt Count [place] % (Auto) [place] # Seg Neutrophils % 78.6 H Seg Neuts % (Manual) Nucleated RBC % Seg Neutrophils # 8.7 H Seg Neutrophils # Man PT INR POC ABG pH POC ABG pCO2 POC ABG pO2 Sodium 135 L Potassium Chloride Carbon Dioxide 20 L BUN Creatinine 1.5 H Glucose 148 H POC Glucose 142 H Lactic Acid Calcium 7.2 L Magnesium Total Bilirubin 1.30 H AST 143 H ALT Alkaline Phosphatase 392 H Ammonia Troponin T C-Reactive Protein Total Protein 6.1 L Albumin 1.2 L Prealbumin TSH Crossmatch 08/30/16 08/30/16 08/30/16 17:41 18:03 18:18 WBC RBC Hgb Hct MCV MCH MCHC RDW Plt Count [place] % (Auto) [place] # Seg Neutrophils % Seg Neuts % (Manual) Nucleated RBC % Seg Neutrophils # Seg Neutrophils # Man PT INR POC ABG pH 7.316 L POC ABG pCO2 POC ABG pO2 44 L 59 L Sodium Potassium Chloride Carbon Dioxide BUN Creatinine Glucose POC Glucose 150 H Lactic Acid Calcium Magnesium Total Bilirubin AST ALT Alkaline Phosphatase Ammonia Troponin T C-Reactive Protein Total Protein Albumin Prealbumin TSH Crossmatch 08/30/16 08/30/16 08/31/16 22:20 22:20 00:11 WBC RBC Hgb Hct MCV MCH MCHC RDW Plt Count [place] % (Auto) [place] # Seg Neutrophils % Seg Neuts % (Manual) Nucleated RBC % Seg Neutrophils # Seg Neutrophils # Man PT INR POC ABG pH POC ABG pCO2 POC ABG pO2 Sodium Potassium Chloride Carbon Dioxide BUN Creatinine Glucose POC Glucose 133 H Lactic Acid 2.30 H* Calcium Magnesium Total Bilirubin AST ALT Alkaline Phosphatase Ammonia Troponin T C-Reactive Protein 10.20 H Total Protein Albumin Prealbumin TSH Crossmatch 08/31/16 08/31/16 08/31/16 04:20 04:20 04:20 WBC 18.3 H RBC 3.19 L Hgb 8.8 L Hct 30.0 L MCV MCH 27 L MCHC 29 L RDW 23.9 H Plt Count [place] % (Auto) [place] # Seg Neutrophils % Seg Neuts % (Manual) Nucleated RBC % Seg Neutrophils # Seg Neutrophils # Man PT 16.8 H INR 1.37 H POC ABG pH POC ABG pCO2 POC ABG pO2 Sodium 136 L Potassium Chloride Carbon Dioxide 19 L BUN Creatinine 1.5 H Glucose 125 H POC Glucose Lactic Acid Calcium 7.0 L Magnesium Total Bilirubin 1.50 H AST 131 H ALT Alkaline Phosphatase 431 H Ammonia Troponin T C-Reactive Protein Total Protein 6.2 L Albumin 1.2 L Prealbumin TSH Crossmatch 08/31/16 08/31/16 08/31/16 04:20 05:22 05:24 WBC RBC Hgb Hct MCV MCH MCHC RDW Plt Count [place] % (Auto) [place] # Seg Neutrophils % Seg Neuts % (Manual) Nucleated RBC % Seg Neutrophils # Seg Neutrophils # Man PT INR POC ABG pH POC ABG pCO2 POC ABG pO2 142 H Sodium Potassium Chloride Carbon Dioxide BUN Creatinine Glucose POC Glucose 123 H Lactic Acid Calcium Magnesium Total Bilirubin AST ALT Alkaline Phosphatase Ammonia 70.0 H Troponin T C-Reactive Protein Total Protein Albumin Prealbumin TSH Crossmatch 08/31/16 08/31/16 08/31/16 12:10 15:45 17:38 WBC RBC Hgb Hct MCV MCH MCHC RDW Plt Count [place] % (Auto) [place] # Seg Neutrophils % Seg Neuts % (Manual) Nucleated RBC % Seg Neutrophils # Seg Neutrophils # Cristian PT INR POC ABG pH POC ABG pCO2 POC ABG pO2 Sodium 136 L Potassium Chloride Carbon Dioxide 21 L BUN Creatinine 1.5 H Glucose 160 H POC Glucose 147 H 151 H Lactic Acid Calcium 6.9 L Magnesium Total Bilirubin AST ALT Alkaline Phosphatase Ammonia Troponin T 0.109 H* D C-Reactive Protein Total Protein Albumin Prealbumin TSH Crossmatch 09/01/16 09/01/16 09/01/16 00:09 04:00 04:00 WBC 14.8 H RBC 2.89 L Hgb 7.8 L Hct 27.2 L MCV MCH 27 L MCHC 29 L RDW 24.4 H Plt Count [place] % (Auto) [place] # Seg Neutrophils % Seg Neuts % (Manual) Nucleated RBC % Seg Neutrophils # Seg Neutrophils # Cristian PT 18.2 H INR 1.51 H POC ABG pH POC ABG pCO2 POC ABG pO2 Sodium Potassium Chloride Carbon Dioxide BUN Creatinine Glucose POC Glucose 192 H Lactic Acid Calcium Magnesium Total Bilirubin AST ALT Alkaline Phosphatase Ammonia Troponin T C-Reactive Protein Total Protein Albumin Prealbumin TSH Crossmatch 09/01/16 09/01/16 09/01/16 04:00 05:28 11:28 WBC RBC Hgb Hct MCV MCH MCHC RDW Plt Count [place] % (Auto) [place] # Seg Neutrophils % Seg Neuts % (Manual) Nucleated RBC % Seg Neutrophils # Seg Neutrophils # Cristian PT INR POC ABG pH POC ABG pCO2 POC ABG pO2 Sodium Potassium Chloride Carbon Dioxide 20 L BUN Creatinine 1.6 H Glucose 183 H POC Glucose 189 H 207 H Lactic Acid Calcium 6.9 L Magnesium Total Bilirubin 1.30 H AST 138 H ALT Alkaline Phosphatase 520 H Ammonia Troponin T C-Reactive Protein Total Protein 6.1 L Albumin 1.2 L Prealbumin TSH Crossmatch 09/01/16 09/01/16 09/02/16 16:56 23:49 05:00 WBC RBC Hgb Hct MCV MCH MCHC RDW Plt Count [place] % (Auto) [place] # Seg Neutrophils % Seg Neuts % (Manual) Nucleated RBC % Seg Neutrophils # Seg Neutrophils # Cristian PT 18.0 H INR 1.49 H POC ABG pH POC ABG pCO2 POC ABG pO2 Sodium Potassium Chloride Carbon Dioxide BUN Creatinine Glucose POC Glucose 250 H 307 H Lactic Acid Calcium Magnesium Total Bilirubin AST ALT Alkaline Phosphatase Ammonia Troponin T C-Reactive Protein Total Protein Albumin Prealbumin TSH Crossmatch 09/02/16 09/02/16 09/02/16 05:00 05:00 05:45 WBC 12.3 H RBC 2.57 L Hgb 7.1 L Hct 23.4 L MCV MCH MCHC RDW 23.9 H Plt Count [place] % (Auto) [place] # Seg Neutrophils % Seg Neuts % (Manual) 72.0 H Nucleated RBC % 25.0 H Seg Neutrophils # Seg Neutrophils # Cristian 8.9 H PT INR POC ABG pH POC ABG pCO2 POC ABG pO2 Sodium Potassium Chloride Carbon Dioxide BUN Creatinine 1.4 H Glucose 299 H POC Glucose 327 H Lactic Acid Calcium 7.0 L Magnesium Total Bilirubin AST ALT Alkaline Phosphatase Ammonia Troponin T C-Reactive Protein Total Protein Albumin Prealbumin TSH Crossmatch 09/02/16 09/02/16 09/02/16 12:22 17:22 23:24 WBC RBC Hgb Hct MCV MCH MCHC RDW Plt Count [place] % (Auto) [place] # Seg Neutrophils % Seg Neuts % (Manual) Nucleated RBC % Seg Neutrophils # Seg Neutrophils # Man PT INR POC ABG pH POC ABG pCO2 POC ABG pO2 Sodium Potassium Chloride Carbon Dioxide BUN Creatinine Glucose POC Glucose 310 H 358 H 286 H Lactic Acid Calcium Magnesium Total Bilirubin AST ALT Alkaline Phosphatase Ammonia Troponin T C-Reactive Protein Total Protein Albumin Prealbumin TSH Crossmatch 09/03/16 09/03/16 09/03/16 04:10 04:10 04:10 WBC 11.8 H RBC 2.29 L Hgb 6.1 L Hct 21.0 L MCV MCH 27 L MCHC 29 L RDW 24.1 H Plt Count [place] % (Auto) [place] # Seg Neutrophils % Seg Neuts % (Manual) Nucleated RBC % Seg Neutrophils # Seg Neutrophils # Man PT 17.6 H INR 1.45 H POC ABG pH POC ABG pCO2 POC ABG pO2 Sodium Potassium Chloride Carbon Dioxide BUN Creatinine 1.4 H Glucose 301 H POC Glucose Lactic Acid Calcium 7.0 L Magnesium Total Bilirubin AST ALT Alkaline Phosphatase Ammonia Troponin T C-Reactive Protein Total Protein Albumin Prealbumin TSH Crossmatch 09/03/16 09/03/16 09/03/16 05:59 11:36 17:42 WBC RBC Hgb Hct MCV MCH MCHC RDW Plt Count [place] % (Auto) [place] # Seg Neutrophils % Seg Neuts % (Manual) Nucleated RBC % Seg Neutrophils # Seg Neutrophils # Man PT INR POC ABG pH POC ABG pCO2 POC ABG pO2 Sodium Potassium Chloride Carbon Dioxide BUN Creatinine Glucose POC Glucose 351 H 285 H 259 H Lactic Acid Calcium Magnesium Total Bilirubin AST ALT Alkaline Phosphatase Ammonia Troponin T C-Reactive Protein Total Protein Albumin Prealbumin TSH Crossmatch 09/03/16 09/04/16 09/04/16 23:00 04:27 05:36 WBC RBC Hgb Hct MCV MCH MCHC RDW Plt Count [place] % (Auto) [place] # Seg Neutrophils % Seg Neuts % (Manual) Nucleated RBC % Seg Neutrophils # Seg Neutrophils # Man PT INR POC ABG pH 7.544 H POC ABG pCO2 30.8 L POC ABG pO2 78 L Sodium Potassium Chloride Carbon Dioxide BUN Creatinine Glucose POC Glucose 192 H 228 H Lactic Acid Calcium Magnesium Total Bilirubin AST ALT Alkaline Phosphatase Ammonia Troponin T C-Reactive Protein Total Protein Albumin Prealbumin TSH Crossmatch 09/04/16 09/04/16 09/04/16 06:37 06:37 06:39 WBC 21.0 H RBC 2.22 L Hgb 6.0 L Hct 20.1 L MCV MCH 27 L MCHC RDW 24.3 H Plt Count [place] % (Auto) [place] # Seg Neutrophils % Seg Neuts % (Manual) Nucleated RBC % Seg Neutrophils # Seg Neutrophils # Cristian PT 16.8 H INR 1.37 H POC ABG pH POC ABG pCO2 POC ABG pO2 Sodium Potassium Chloride Carbon Dioxide BUN Creatinine 1.4 H Glucose 201 H POC Glucose Lactic Acid Calcium 7.1 L Magnesium Total Bilirubin AST ALT Alkaline Phosphatase Ammonia Troponin T C-Reactive Protein Total Protein Albumin Prealbumin TSH Crossmatch 09/04/16 09/04/16 09/04/16 12:14 15:47 17:41 WBC RBC Hgb Hct MCV MCH MCHC RDW Plt Count [place] % (Auto) [place] # Seg Neutrophils % Seg Neuts % (Manual) Nucleated RBC % Seg Neutrophils # Seg Neutrophils # Man PT INR POC ABG pH POC ABG pCO2 POC ABG pO2 Sodium Potassium Chloride Carbon Dioxide BUN Creatinine Glucose POC Glucose 176 H 218 H Lactic Acid Calcium Magnesium Total Bilirubin AST ALT Alkaline Phosphatase Ammonia Troponin T C-Reactive Protein Total Protein Albumin Prealbumin TSH Crossmatch See Detail 09/04/16 09/04/16 09/05/16 21:59 23:48 04:30 WBC RBC Hgb Hct MCV MCH MCHC RDW Plt Count [place] % (Auto) [place] # Seg Neutrophils % Seg Neuts % (Manual) Nucleated RBC % Seg Neutrophils # Seg Neutrophils # Cristian PT 17.2 H INR 1.41 H POC ABG pH POC ABG pCO2 POC ABG pO2 Sodium Potassium Chloride Carbon Dioxide BUN Creatinine Glucose POC Glucose 170 H 121 H Lactic Acid Calcium Magnesium Total Bilirubin AST ALT Alkaline Phosphatase Ammonia Troponin T C-Reactive Protein Total Protein Albumin Prealbumin TSH Crossmatch 09/05/16 09/05/16 09/05/16 04:30 04:30 05:09 WBC 31.9 H RBC 3.11 L Hgb 8.5 L Hct 28.3 L D MCV MCH 27 L MCHC RDW 21.0 H Plt Count [place] % (Auto) [place] # Seg Neutrophils % Seg Neuts % (Manual) Nucleated RBC % Seg Neutrophils # Seg Neutrophils # Cristian PT INR POC ABG pH 7.226 L POC ABG pCO2 61.6 H POC ABG pO2 68 L Sodium 134 L Potassium 5.5 H Chloride 96.6 L Carbon Dioxide BUN 23 H Creatinine 1.6 H Glucose 116 H POC Glucose Lactic Acid Calcium 7.1 L Magnesium Total Bilirubin AST ALT Alkaline Phosphatase Ammonia Troponin T C-Reactive Protein Total Protein Albumin Prealbumin TSH Crossmatch 09/05/16 09/05/16 09/05/16 05:33 12:08 17:32 WBC RBC Hgb Hct MCV MCH MCHC RDW Plt Count [place] % (Auto) [place] # Seg Neutrophils % Seg Neuts % (Manual) Nucleated RBC % Seg Neutrophils # Seg Neutrophils # Cristian PT INR POC ABG pH POC ABG pCO2 POC ABG pO2 Sodium Potassium Chloride Carbon Dioxide BUN Creatinine Glucose POC Glucose 114 H 147 H 174 H Lactic Acid Calcium Magnesium Total Bilirubin AST ALT Alkaline Phosphatase Ammonia Troponin T C-Reactive Protein Total Protein Albumin Prealbumin TSH Crossmatch 09/06/16 09/06/16 09/06/16 03:30 03:30 03:30 WBC 25.4 H RBC 2.57 L Hgb 7.2 L Hct 22.8 L MCV MCH MCHC RDW 20.9 H Plt Count 138 L [place] % (Auto) [place] # Seg Neutrophils % Seg Neuts % (Manual) Nucleated RBC % Seg Neutrophils # Seg Neutrophils # Cristian PT 16.4 H INR 1.33 H POC ABG pH POC ABG pCO2 POC ABG pO2 Sodium Potassium Chloride Carbon Dioxide BUN 36 H Creatinine 1.9 H Glucose POC Glucose Lactic Acid Calcium 7.2 L Magnesium Total Bilirubin AST ALT Alkaline Phosphatase Ammonia Troponin T C-Reactive Protein Total Protein Albumin Prealbumin TSH Crossmatch 09/06/16 09/06/16 09/06/16 11:07 12:03 14:44 WBC RBC Hgb Hct MCV MCH MCHC RDW Plt Count [place] % (Auto) [place] # Seg Neutrophils % Seg Neuts % (Manual) Nucleated RBC % Seg Neutrophils # Seg Neutrophils # Man PT INR POC ABG pH POC ABG pCO2 POC ABG pO2 Sodium Potassium Chloride Carbon Dioxide BUN Creatinine Glucose POC Glucose 61 L 55 L Lactic Acid Calcium Magnesium Total Bilirubin AST ALT Alkaline Phosphatase Ammonia Troponin T 0.080 H C-Reactive Protein Total Protein Albumin Prealbumin TSH Crossmatch 09/06/16 09/06/16 09/07/16 21:05 23:53 03:36 WBC RBC Hgb Hct MCV MCH MCHC RDW Plt Count [place] % (Auto) [place] # Seg Neutrophils % Seg Neuts % (Manual) Nucleated RBC % Seg Neutrophils # Seg Neutrophils # Man PT INR POC ABG pH POC ABG pCO2 POC ABG pO2 Sodium Potassium Chloride Carbon Dioxide BUN Creatinine Glucose POC Glucose 140 H 178 H 243 H Lactic Acid Calcium Magnesium Total Bilirubin AST ALT Alkaline Phosphatase Ammonia Troponin T C-Reactive Protein Total Protein Albumin Prealbumin TSH Crossmatch 09/07/16 09/07/16 09/07/16 03:42 03:42 05:04 WBC 17.3 H RBC 2.69 L Hgb 7.6 L Hct 23.8 L MCV MCH MCHC RDW 20.5 H Plt Count 137 L [place] % (Auto) [place] # Seg Neutrophils % Seg Neuts % (Manual) Nucleated RBC % Seg Neutrophils # Seg Neutrophils # Man PT INR POC ABG pH POC ABG pCO2 POC ABG pO2 Sodium Potassium 3.3 L Chloride Carbon Dioxide BUN 38 H Creatinine 1.6 H Glucose 201 H POC Glucose 241 H Lactic Acid Calcium 7.4 L Magnesium Total Bilirubin AST ALT Alkaline Phosphatase Ammonia Troponin T C-Reactive Protein Total Protein Albumin Prealbumin TSH Crossmatch 09/07/16 09/07/16 09/07/16 11:46 17:41 23:18 WBC RBC Hgb Hct MCV MCH MCHC RDW Plt Count [place] % (Auto) [place] # Seg Neutrophils % Seg Neuts % (Manual) Nucleated RBC % Seg Neutrophils # Seg Neutrophils # Man PT INR POC ABG pH POC ABG pCO2 POC ABG pO2 Sodium Potassium Chloride Carbon Dioxide BUN Creatinine Glucose POC Glucose 313 H 227 H 116 H Lactic Acid Calcium Magnesium Total Bilirubin AST ALT Alkaline Phosphatase Ammonia Troponin T C-Reactive Protein Total Protein Albumin Prealbumin TSH Crossmatch 09/08/16 09/08/16 09/08/16 04:00 04:00 05:15 WBC 18.4 H RBC 2.43 L Hgb 6.9 L Hct 21.5 L MCV MCH MCHC RDW 20.5 H Plt Count 119 L [place] % (Auto) [place] # Seg Neutrophils % Seg Neuts % (Manual) Nucleated RBC % Seg Neutrophils # Seg Neutrophils # Man PT INR POC ABG pH 7.458 H POC ABG pCO2 POC ABG pO2 177 H Sodium Potassium 3.5 L Chloride Carbon Dioxide BUN 37 H Creatinine 1.3 H Glucose POC Glucose Lactic Acid Calcium 7.1 L Magnesium Total Bilirubin AST ALT Alkaline Phosphatase Ammonia Troponin T C-Reactive Protein Total Protein Albumin Prealbumin TSH Crossmatch 09/08/16 09/08/16 09/08/16 11:00 15:58 23:16 WBC RBC Hgb Hct MCV MCH MCHC RDW Plt Count [place] % (Auto) [place] # Seg Neutrophils % Seg Neuts % (Manual) Nucleated RBC % Seg Neutrophils # Seg Neutrophils # Man PT INR POC ABG pH POC ABG pCO2 POC ABG pO2 113 H Sodium Potassium Chloride Carbon Dioxide BUN Creatinine Glucose POC Glucose 40 L Lactic Acid Calcium Magnesium Total Bilirubin AST ALT Alkaline Phosphatase Ammonia Troponin T C-Reactive Protein Total Protein Albumin Prealbumin TSH Crossmatch See Detail 09/09/16 09/09/16 09/09/16 05:02 12:33 18:10 WBC RBC Hgb Hct MCV MCH MCHC RDW Plt Count [place] % (Auto) [place] # Seg Neutrophils % Seg Neuts % (Manual) Nucleated RBC % Seg Neutrophils # Seg Neutrophils # Man PT INR POC ABG pH 7.454 H POC ABG pCO2 POC ABG pO2 75 L Sodium Potassium Chloride Carbon Dioxide BUN Creatinine Glucose POC Glucose 59 L Lactic Acid Calcium Magnesium Total Bilirubin AST ALT Alkaline Phosphatase Ammonia Troponin T C-Reactive Protein Total Protein Albumin Prealbumin TSH 5.220 H Crossmatch 09/09/16 09/09/16 09/09/16 18:10 18:10 18:42 WBC 17.0 H RBC 2.90 L Hgb 8.5 L Hct 26.1 L MCV MCH MCHC RDW 17.9 H Plt Count 126 L [place] % (Auto) [place] # Seg Neutrophils % Seg Neuts % (Manual) Nucleated RBC % Seg Neutrophils # Seg Neutrophils # Man PT INR POC ABG pH POC ABG pCO2 POC ABG pO2 Sodium Potassium Chloride Carbon Dioxide BUN 36 H Creatinine Glucose 133 H POC Glucose 148 H Lactic Acid Calcium 6.9 L Magnesium Total Bilirubin AST 253 H ALT 184 H Alkaline Phosphatase 729 H Ammonia Troponin T C-Reactive Protein Total Protein 5.1 L Albumin 1.7 L Prealbumin TSH Crossmatch 09/09/16 09/10/16 09/10/16 23:22 05:10 11:43 WBC RBC Hgb Hct MCV MCH MCHC RDW Plt Count [place] % (Auto) [place] # Seg Neutrophils % Seg Neuts % (Manual) Nucleated RBC % Seg Neutrophils # Seg Neutrophils # Man PT INR POC ABG pH POC ABG pCO2 POC ABG pO2 Sodium Potassium Chloride Carbon Dioxide BUN 35 H Creatinine Glucose 240 H POC Glucose 170 H 268 H Lactic Acid Calcium 6.8 L Magnesium Total Bilirubin AST 226 H ALT 171 H Alkaline Phosphatase 710 H Ammonia Troponin T C-Reactive Protein Total Protein 5.2 L Albumin 1.7 L Prealbumin TSH Crossmatch 09/10/16 09/11/16 09/11/16 17:51 01:07 05:00 WBC RBC Hgb Hct MCV MCH MCHC RDW Plt Count [place] % (Auto) [place] # Seg Neutrophils % Seg Neuts % (Manual) Nucleated RBC % Seg Neutrophils # Seg Neutrophils # Man PT INR POC ABG pH POC ABG pCO2 POC ABG pO2 Sodium Potassium 2.9 L* Chloride Carbon Dioxide BUN 35 H Creatinine Glucose 274 H POC Glucose 334 H 223 H Lactic Acid Calcium 6.9 L Magnesium Total Bilirubin AST 167 H ALT 145 H Alkaline Phosphatase 631 H Ammonia Troponin T C-Reactive Protein Total Protein 5.1 L Albumin 1.6 L Prealbumin TSH Crossmatch 09/11/16 09/11/16 09/11/16 05:01 12:16 17:12 WBC RBC Hgb Hct MCV MCH MCHC RDW Plt Count [place] % (Auto) [place] # Seg Neutrophils % Seg Neuts % (Manual) Nucleated RBC % Seg Neutrophils # Seg Neutrophils # Man PT INR POC ABG pH POC ABG pCO2 POC ABG pO2 Sodium Potassium Chloride Carbon Dioxide BUN Creatinine Glucose POC Glucose 305 H 219 H 171 H Lactic Acid Calcium Magnesium Total Bilirubin AST ALT Alkaline Phosphatase Ammonia Troponin T C-Reactive Protein Total Protein Albumin Prealbumin TSH Crossmatch 09/11/16 09/12/16 09/12/16 23:35 03:33 05:00 WBC 12.9 H RBC 2.81 L Hgb 8.2 L Hct 25.4 L MCV MCH MCHC RDW 17.9 H Plt Count [place] % (Auto) [place] # Seg Neutrophils % Seg Neuts % (Manual) Nucleated RBC % Seg Neutrophils # Seg Neutrophils # Man PT INR POC ABG pH POC ABG pCO2 POC ABG pO2 Sodium Potassium Chloride Carbon Dioxide BUN Creatinine Glucose POC Glucose 216 H 183 H Lactic Acid Calcium Magnesium Total Bilirubin AST ALT Alkaline Phosphatase Ammonia Troponin T C-Reactive Protein Total Protein Albumin Prealbumin TSH Crossmatch 09/12/16 09/12/16 09/12/16 05:00 15:15 18:30 WBC RBC Hgb Hct MCV MCH MCHC RDW Plt Count [place] % (Auto) [place] # Seg Neutrophils % Seg Neuts % (Manual) Nucleated RBC % Seg Neutrophils # Seg Neutrophils # Man PT INR POC ABG pH POC ABG pCO2 POC ABG pO2 Sodium Potassium 3.0 L 3.4 L Chloride Carbon Dioxide BUN 33 H Creatinine 0.5 L Glucose POC Glucose 215 H Lactic Acid Calcium 7.0 L Magnesium Total Bilirubin AST ALT Alkaline Phosphatase Ammonia Troponin T C-Reactive Protein Total Protein Albumin Prealbumin TSH Crossmatch 09/12/16 09/13/16 09/13/16 23:17 05:50 05:50 WBC RBC 2.93 L Hgb 8.8 L Hct 26.7 L MCV MCH MCHC RDW 18.0 H Plt Count [place] % (Auto) [place] # Seg Neutrophils % Seg Neuts % (Manual) Nucleated RBC % Seg Neutrophils # Seg Neutrophils # Man PT INR POC ABG pH POC ABG pCO2 POC ABG pO2 Sodium Potassium 2.6 L* D Chloride Carbon Dioxide BUN 29 H Creatinine 0.5 L Glucose 106 H POC Glucose 155 H Lactic Acid Calcium 7.3 L Magnesium Total Bilirubin AST ALT Alkaline Phosphatase Ammonia Troponin T C-Reactive Protein Total Protein Albumin Prealbumin TSH Crossmatch 09/13/16 09/13/16 09/13/16 05:53 11:43 15:07 WBC RBC Hgb Hct MCV MCH MCHC RDW Plt Count [place] % (Auto) [place] # Seg Neutrophils % Seg Neuts % (Manual) Nucleated RBC % Seg Neutrophils # Seg Neutrophils # Man PT INR POC ABG pH POC ABG pCO2 POC ABG pO2 Sodium Potassium 2.8 L* Chloride Carbon Dioxide BUN Creatinine Glucose POC Glucose 119 H 129 H Lactic Acid Calcium Magnesium Total Bilirubin AST ALT Alkaline Phosphatase Ammonia Troponin T C-Reactive Protein Total Protein Albumin Prealbumin TSH Crossmatch 09/13/16 09/13/16 09/14/16 17:39 23:30 05:34 WBC RBC Hgb Hct MCV MCH MCHC RDW Plt Count [place] % (Auto) [place] # Seg Neutrophils % Seg Neuts % (Manual) Nucleated RBC % Seg Neutrophils # Seg Neutrophils # Man PT INR POC ABG pH POC ABG pCO2 POC ABG pO2 Sodium Potassium Chloride Carbon Dioxide BUN Creatinine Glucose POC Glucose 144 H 196 H 175 H Lactic Acid Calcium Magnesium Total Bilirubin AST ALT Alkaline Phosphatase Ammonia Troponin T C-Reactive Protein Total Protein Albumin Prealbumin TSH Crossmatch 09/14/16 09/14/16 09/14/16 06:24 06:24 12:41 WBC RBC 2.82 L Hgb 8.4 L Hct 25.7 L MCV MCH MCHC RDW 18.0 H Plt Count [place] % (Auto) [place] # Seg Neutrophils % Seg Neuts % (Manual) Nucleated RBC % Seg Neutrophils # Seg Neutrophils # Man PT INR POC ABG pH POC ABG pCO2 POC ABG pO2 Sodium Potassium 2.9 L* Chloride 107.3 H Carbon Dioxide BUN 26 H Creatinine 0.4 L Glucose 169 H POC Glucose 184 H Lactic Acid Calcium 7.5 L Magnesium Total Bilirubin AST ALT Alkaline Phosphatase Ammonia Troponin T C-Reactive Protein Total Protein Albumin Prealbumin TSH Crossmatch 09/14/16 09/14/16 09/14/16 14:50 17:57 23:34 WBC RBC Hgb Hct MCV MCH MCHC RDW Plt Count [place] % (Auto) [place] # Seg Neutrophils % Seg Neuts % (Manual) Nucleated RBC % Seg Neutrophils # Seg Neutrophils # Man PT INR POC ABG pH POC ABG pCO2 POC ABG pO2 Sodium Potassium 3.3 L Chloride Carbon Dioxide BUN Creatinine Glucose POC Glucose 191 H 178 H Lactic Acid Calcium Magnesium Total Bilirubin AST ALT Alkaline Phosphatase Ammonia Troponin T C-Reactive Protein Total Protein Albumin Prealbumin TSH Crossmatch 09/15/16 09/15/16 09/15/16 05:02 07:57 07:57 WBC RBC 3.04 L Hgb 9.2 L Hct 28.2 L MCV MCH MCHC RDW 18.8 H Plt Count [place] % (Auto) [place] # Seg Neutrophils % Seg Neuts % (Manual) Nucleated RBC % Seg Neutrophils # Seg Neutrophils # Man PT INR POC ABG pH POC ABG pCO2 POC ABG pO2 Sodium Potassium Chloride 107.2 H Carbon Dioxide BUN 26 H Creatinine 0.4 L Glucose 160 H POC Glucose 192 H Lactic Acid Calcium 7.7 L Magnesium Total Bilirubin AST ALT Alkaline Phosphatase Ammonia Troponin T C-Reactive Protein Total Protein Albumin Prealbumin TSH Crossmatch 09/15/16 09/15/16 09/15/16 11:23 17:51 23:45 WBC RBC Hgb Hct MCV MCH MCHC RDW Plt Count [place] % (Auto) [place] # Seg Neutrophils % Seg Neuts % (Manual) Nucleated RBC % Seg Neutrophils # Seg Neutrophils # Man PT INR POC ABG pH POC ABG pCO2 POC ABG pO2 Sodium Potassium Chloride Carbon Dioxide BUN Creatinine Glucose POC Glucose 232 H 240 H 251 H Lactic Acid Calcium Magnesium Total Bilirubin AST ALT Alkaline Phosphatase Ammonia Troponin T C-Reactive Protein Total Protein Albumin Prealbumin TSH Crossmatch 09/16/16 09/16/16 09/16/16 04:55 04:55 05:38 WBC RBC 2.84 L Hgb 8.6 L Hct 26.2 L MCV MCH MCHC RDW 18.8 H Plt Count [place] % (Auto) [place] # Seg Neutrophils % Seg Neuts % (Manual) Nucleated RBC % Seg Neutrophils # Seg Neutrophils # Man PT INR POC ABG pH POC ABG pCO2 POC ABG pO2 Sodium Potassium 3.1 L Chloride 107.6 H Carbon Dioxide BUN 25 H Creatinine 0.3 L Glucose 134 H POC Glucose 157 H Lactic Acid Calcium 7.6 L Magnesium Total Bilirubin AST ALT Alkaline Phosphatase Ammonia Troponin T C-Reactive Protein Total Protein Albumin Prealbumin TSH Crossmatch 09/16/16 09/16/16 09/16/16 11:53 17:56 23:54 WBC RBC Hgb Hct MCV MCH MCHC RDW Plt Count [place] % (Auto) [place] # Seg Neutrophils % Seg Neuts % (Manual) Nucleated RBC % Seg Neutrophils # Seg Neutrophils # Man PT INR POC ABG pH POC ABG pCO2 POC ABG pO2 Sodium Potassium Chloride Carbon Dioxide BUN Creatinine Glucose POC Glucose 137 H 138 H 179 H Lactic Acid Calcium Magnesium Total Bilirubin AST ALT Alkaline Phosphatase Ammonia Troponin T C-Reactive Protein Total Protein Albumin Prealbumin TSH Crossmatch 09/17/16 09/17/16 09/17/16 05:00 05:00 05:28 WBC RBC 2.77 L Hgb 8.2 L Hct 25.9 L MCV MCH MCHC RDW 19.1 H Plt Count [place] % (Auto) [place] # Seg Neutrophils % Seg Neuts % (Manual) Nucleated RBC % Seg Neutrophils # Seg Neutrophils # Man PT INR POC ABG pH POC ABG pCO2 POC ABG pO2 Sodium Potassium 3.5 L Chloride 108.4 H Carbon Dioxide BUN 29 H Creatinine 0.3 L Glucose 117 H POC Glucose 142 H Lactic Acid Calcium 7.4 L Magnesium Total Bilirubin AST ALT Alkaline Phosphatase Ammonia Troponin T C-Reactive Protein Total Protein Albumin Prealbumin TSH Crossmatch 09/17/16 09/17/16 09/18/16 18:07 23:31 06:29 WBC RBC Hgb Hct MCV MCH MCHC RDW Plt Count [place] % (Auto) [place] # Seg Neutrophils % Seg Neuts % (Manual) Nucleated RBC % Seg Neutrophils # Seg Neutrophils # Man PT INR POC ABG pH POC ABG pCO2 POC ABG pO2 Sodium Potassium Chloride Carbon Dioxide BUN Creatinine Glucose POC Glucose 173 H 240 H 282 H Lactic Acid Calcium Magnesium Total Bilirubin AST ALT Alkaline Phosphatase Ammonia Troponin T C-Reactive Protein Total Protein Albumin Prealbumin TSH Crossmatch 09/18/16 09/18/16 09/18/16 06:30 12:21 17:55 WBC RBC Hgb Hct MCV MCH MCHC RDW Plt Count [place] % (Auto) [place] # Seg Neutrophils % Seg Neuts % (Manual) Nucleated RBC % Seg Neutrophils # Seg Neutrophils # Man PT INR POC ABG pH POC ABG pCO2 POC ABG pO2 Sodium 148 H Potassium Chloride 110.7 H Carbon Dioxide BUN 30 H Creatinine 0.4 L Glucose 249 H POC Glucose 248 H 255 H Lactic Acid Calcium 7.4 L Magnesium 1.60 L Total Bilirubin AST ALT Alkaline Phosphatase Ammonia Troponin T C-Reactive Protein Total Protein Albumin Prealbumin TSH Crossmatch 09/19/16 09/19/16 09/19/16 00:09 04:45 05:11 WBC RBC Hgb Hct MCV MCH MCHC RDW Plt Count [place] % (Auto) [place] # Seg Neutrophils % Seg Neuts % (Manual) Nucleated RBC % Seg Neutrophils # Seg Neutrophils # Man PT INR POC ABG pH POC ABG pCO2 POC ABG pO2 Sodium 146 H Potassium Chloride 110.8 H Carbon Dioxide BUN 34 H Creatinine 0.4 L Glucose 278 H POC Glucose 324 H 278 H Lactic Acid Calcium 7.3 L Magnesium Total Bilirubin AST ALT Alkaline Phosphatase Ammonia Troponin T C-Reactive Protein Total Protein Albumin Prealbumin TSH Crossmatch 09/19/16 09/19/16 09/19/16 11:12 12:09 17:10 WBC RBC Hgb Hct MCV MCH MCHC RDW Plt Count [place] % (Auto) [place] # Seg Neutrophils % Seg Neuts % (Manual) Nucleated RBC % Seg Neutrophils # Seg Neutrophils # Man PT INR POC ABG pH POC ABG pCO2 POC ABG pO2 Sodium Potassium Chloride Carbon Dioxide BUN Creatinine Glucose POC Glucose 306 H 225 H 329 H Lactic Acid Calcium Magnesium Total Bilirubin AST ALT Alkaline Phosphatase Ammonia Troponin T C-Reactive Protein Total Protein Albumin Prealbumin TSH Crossmatch 09/19/16 09/20/16 09/20/16 23:34 04:52 05:00 WBC RBC Hgb Hct MCV MCH MCHC RDW Plt Count [place] % (Auto) [place] # Seg Neutrophils % Seg Neuts % (Manual) Nucleated RBC % Seg Neutrophils # Seg Neutrophils # Man PT INR POC ABG pH POC ABG pCO2 POC ABG pO2 Sodium Potassium Chloride 108.6 H Carbon Dioxide BUN 35 H Creatinine 0.4 L Glucose 370 H POC Glucose 376 H 374 H Lactic Acid Calcium 7.3 L Magnesium Total Bilirubin AST ALT Alkaline Phosphatase Ammonia Troponin T C-Reactive Protein Total Protein Albumin Prealbumin TSH Crossmatch 09/20/16 09/20/16 09/20/16 11:18 17:39 23:49 WBC RBC Hgb Hct MCV MCH MCHC RDW Plt Count [place] % (Auto) [place] # Seg Neutrophils % Seg Neuts % (Manual) Nucleated RBC % Seg Neutrophils # Seg Neutrophils # Man PT INR POC ABG pH POC ABG pCO2 POC ABG pO2 Sodium Potassium Chloride Carbon Dioxide BUN Creatinine Glucose POC Glucose 342 H 416 H 440 H Lactic Acid Calcium Magnesium Total Bilirubin AST ALT Alkaline Phosphatase Ammonia Troponin T C-Reactive Protein Total Protein Albumin Prealbumin TSH Crossmatch 09/21/16 09/21/16 09/21/16 04:58 05:15 05:15 WBC RBC 1.48 L Hgb 4.6 L* Hct 14.9 L* MCV 100 H MCH MCHC RDW 25.4 H Plt Count [place] % (Auto) [place] # Seg Neutrophils % Seg Neuts % (Manual) Nucleated RBC % Seg Neutrophils # Seg Neutrophils # Man PT INR POC ABG pH POC ABG pCO2 POC ABG pO2 Sodium Potassium Chloride 107.5 H Carbon Dioxide 20 L BUN 45 H Creatinine 0.6 L Glucose 490 H POC Glucose > 500 H Lactic Acid Calcium 7.0 L Magnesium Total Bilirubin AST ALT Alkaline Phosphatase Ammonia Troponin T C-Reactive Protein Total Protein Albumin Prealbumin TSH Crossmatch 09/21/16 09/21/16 09/21/16 08:20 09:17 12:09 WBC RBC Hgb Hct MCV MCH MCHC RDW Plt Count [place] % (Auto) [place] # Seg Neutrophils % Seg Neuts % (Manual) Nucleated RBC % Seg Neutrophils # Seg Neutrophils # Man PT INR POC ABG pH 7.464 H POC ABG pCO2 29.3 L POC ABG pO2 198 H Sodium Potassium Chloride Carbon Dioxide BUN Creatinine Glucose POC Glucose 248 H Lactic Acid Calcium Magnesium Total Bilirubin AST ALT Alkaline Phosphatase Ammonia Troponin T C-Reactive Protein Total Protein Albumin Prealbumin TSH Crossmatch See Detail 09/21/16 09/21/16 09/21/16 15:21 17:36 18:49 WBC RBC Hgb Hct MCV MCH MCHC RDW Plt Count [place] % (Auto) [place] # Seg Neutrophils % Seg Neuts % (Manual) Nucleated RBC % Seg Neutrophils # Seg Neutrophils # Man PT INR POC ABG pH POC ABG pCO2 POC ABG pO2 Sodium Potassium Chloride Carbon Dioxide BUN Creatinine Glucose POC Glucose 403 H 437 H 482 H Lactic Acid Calcium Magnesium Total Bilirubin AST ALT Alkaline Phosphatase Ammonia Troponin T C-Reactive Protein Total Protein Albumin Prealbumin TSH Crossmatch 09/21/16 09/22/16 09/22/16 23:29 00:00 01:29 WBC 14.8 H RBC 2.94 L Hgb 9.1 L D Hct 27.5 L D MCV MCH MCHC RDW 16.7 H Plt Count [place] % (Auto) [place] # Seg Neutrophils % Seg Neuts % (Manual) Nucleated RBC % Seg Neutrophils # Seg Neutrophils # Man PT INR POC ABG pH POC ABG pCO2 POC ABG pO2 Sodium Potassium Chloride Carbon Dioxide BUN Creatinine Glucose POC Glucose 311 H 288 H Lactic Acid Calcium Magnesium Total Bilirubin AST ALT Alkaline Phosphatase Ammonia Troponin T C-Reactive Protein Total Protein Albumin Prealbumin TSH Crossmatch 09/22/16 09/22/16 09/22/16 02:29 03:12 03:26 WBC RBC Hgb Hct MCV MCH MCHC RDW Plt Count [place] % (Auto) [place] # Seg Neutrophils % Seg Neuts % (Manual) Nucleated RBC % Seg Neutrophils # Seg Neutrophils # Man PT INR POC ABG pH 7.460 H POC ABG pCO2 29.9 L POC ABG pO2 112 H Sodium Potassium Chloride Carbon Dioxide BUN Creatinine Glucose POC Glucose 261 H 239 H Lactic Acid Calcium Magnesium Total Bilirubin AST ALT Alkaline Phosphatase Ammonia Troponin T C-Reactive Protein Total Protein Albumin Prealbumin TSH Crossmatch 09/22/16 09/22/16 09/22/16 05:35 06:40 06:40 WBC 13.5 H RBC 3.18 L Hgb 9.5 L Hct 28.8 L MCV MCH MCHC RDW 16.2 H Plt Count [place] % (Auto) [place] # Seg Neutrophils % Seg Neuts % (Manual) Nucleated RBC % Seg Neutrophils # Seg Neutrophils # Man PT INR POC ABG pH POC ABG pCO2 POC ABG pO2 Sodium 147 H Potassium 3.2 L D Chloride 112.3 H Carbon Dioxide BUN 49 H Creatinine 0.6 L Glucose 102 H POC Glucose 181 H Lactic Acid Calcium 7.5 L Magnesium Total Bilirubin AST ALT Alkaline Phosphatase Ammonia Troponin T C-Reactive Protein Total Protein Albumin Prealbumin TSH Crossmatch 09/22/16 09/22/16 09/22/16 07:16 18:03 20:05 WBC RBC Hgb Hct MCV MCH MCHC RDW Plt Count [place] % (Auto) [place] # Seg Neutrophils % Seg Neuts % (Manual) Nucleated RBC % Seg Neutrophils # Seg Neutrophils # Man PT INR POC ABG pH POC ABG pCO2 POC ABG pO2 Sodium Potassium Chloride Carbon Dioxide BUN Creatinine Glucose POC Glucose 152 H 115 H 107 H Lactic Acid Calcium Magnesium Total Bilirubin AST ALT Alkaline Phosphatase Ammonia Troponin T C-Reactive Protein Total Protein Albumin Prealbumin TSH Crossmatch 09/22/16 09/22/16 09/23/16 21:00 23:55 02:02 WBC 13.8 H RBC 3.04 L Hgb 9.2 L Hct 28.0 L MCV MCH MCHC RDW 16.2 H Plt Count [place] % (Auto) [place] # Seg Neutrophils % Seg Neuts % (Manual) Nucleated RBC % Seg Neutrophils # Seg Neutrophils # Man PT INR POC ABG pH POC ABG pCO2 POC ABG pO2 Sodium Potassium Chloride Carbon Dioxide BUN Creatinine Glucose POC Glucose 133 H 110 H Lactic Acid Calcium Magnesium Total Bilirubin AST ALT Alkaline Phosphatase Ammonia Troponin T C-Reactive Protein Total Protein Albumin Prealbumin TSH Crossmatch 09/23/16 09/23/16 09/23/16 04:45 04:45 05:36 WBC 13.6 H RBC 2.86 L Hgb 8.6 L Hct 26.4 L MCV MCH MCHC RDW 17.1 H Plt Count [place] % (Auto) [place] # Seg Neutrophils % Seg Neuts % (Manual) Nucleated RBC % Seg Neutrophils # Seg Neutrophils # Man PT INR POC ABG pH POC ABG pCO2 POC ABG pO2 Sodium Potassium Chloride 109.2 H Carbon Dioxide 21 L BUN 43 H Creatinine 0.5 L Glucose 152 H POC Glucose 133 H Lactic Acid Calcium 7.7 L Magnesium Total Bilirubin AST ALT Alkaline Phosphatase Ammonia Troponin T C-Reactive Protein Total Protein Albumin Prealbumin TSH Crossmatch 09/23/16 09/23/16 09/23/16 07:42 11:55 13:26 WBC RBC Hgb Hct MCV MCH MCHC RDW Plt Count [place] % (Auto) [place] # Seg Neutrophils % Seg Neuts % (Manual) Nucleated RBC % Seg Neutrophils # Seg Neutrophils # Man PT INR POC ABG pH POC ABG pCO2 POC ABG pO2 Sodium Potassium Chloride Carbon Dioxide BUN Creatinine Glucose POC Glucose 175 H 170 H 195 H Lactic Acid Calcium Magnesium Total Bilirubin AST ALT Alkaline Phosphatase Ammonia Troponin T C-Reactive Protein Total Protein Albumin Prealbumin TSH Crossmatch 09/23/16 09/23/16 09/24/16 17:37 21:54 02:56 WBC RBC Hgb Hct MCV MCH MCHC RDW Plt Count [place] % (Auto) [place] # Seg Neutrophils % Seg Neuts % (Manual) Nucleated RBC % Seg Neutrophils # Seg Neutrophils # Man PT INR POC ABG pH POC ABG pCO2 POC ABG pO2 Sodium Potassium Chloride Carbon Dioxide BUN Creatinine Glucose POC Glucose 182 H 184 H 187 H Lactic Acid Calcium Magnesium Total Bilirubin AST ALT Alkaline Phosphatase Ammonia Troponin T C-Reactive Protein Total Protein Albumin Prealbumin TSH Crossmatch 09/24/16 09/24/16 09/24/16 05:00 05:00 05:22 WBC RBC 2.82 L Hgb 8.8 L Hct 27.0 L MCV MCH MCHC RDW 17.2 H Plt Count [place] % (Auto) [place] # Seg Neutrophils % Seg Neuts % (Manual) Nucleated RBC % Seg Neutrophils # Seg Neutrophils # Man PT INR POC ABG pH POC ABG pCO2 POC ABG pO2 Sodium 148 H Potassium Chloride 115.0 H Carbon Dioxide 21 L BUN 38 H Creatinine 0.6 L Glucose 163 H POC Glucose 194 H Lactic Acid Calcium 7.9 L Magnesium Total Bilirubin AST ALT Alkaline Phosphatase Ammonia Troponin T C-Reactive Protein Total Protein Albumin Prealbumin TSH Crossmatch 09/24/16 09/24/16 09/24/16 11:02 13:55 17:37 WBC RBC Hgb Hct MCV MCH MCHC RDW Plt Count [place] % (Auto) [place] # Seg Neutrophils % Seg Neuts % (Manual) Nucleated RBC % Seg Neutrophils # Seg Neutrophils # Man PT INR POC ABG pH POC ABG pCO2 POC ABG pO2 Sodium Potassium Chloride Carbon Dioxide BUN Creatinine Glucose POC Glucose 210 H 182 H 169 H Lactic Acid Calcium Magnesium Total Bilirubin AST ALT Alkaline Phosphatase Ammonia Troponin T C-Reactive Protein Total Protein Albumin Prealbumin TSH Crossmatch 09/25/16 09/25/16 09/25/16 02:15 05:14 09:39 WBC RBC Hgb Hct MCV MCH MCHC RDW Plt Count [place] % (Auto) [place] # Seg Neutrophils % Seg Neuts % (Manual) Nucleated RBC % Seg Neutrophils # Seg Neutrophils # Man PT INR POC ABG pH POC ABG pCO2 POC ABG pO2 Sodium Potassium Chloride Carbon Dioxide BUN Creatinine Glucose POC Glucose 139 H 151 H 184 H Lactic Acid Calcium Magnesium Total Bilirubin AST ALT Alkaline Phosphatase Ammonia Troponin T C-Reactive Protein Total Protein Albumin Prealbumin TSH Crossmatch 09/25/16 09/25/16 09/25/16 09:48 09:48 13:47 WBC RBC 2.76 L Hgb 8.7 L Hct 26.2 L MCV MCH MCHC RDW 17.3 H Plt Count [place] % (Auto) [place] # Seg Neutrophils % Seg Neuts % (Manual) Nucleated RBC % Seg Neutrophils # Seg Neutrophils # Man PT INR POC ABG pH POC ABG pCO2 POC ABG pO2 Sodium 150 H Potassium Chloride 115.6 H Carbon Dioxide BUN 34 H Creatinine 0.4 L Glucose 168 H POC Glucose 167 H Lactic Acid Calcium 7.9 L Magnesium Total Bilirubin AST ALT Alkaline Phosphatase Ammonia Troponin T C-Reactive Protein Total Protein Albumin Prealbumin TSH Crossmatch 09/25/16 09/25/16 09/26/16 17:57 21:44 00:05 WBC RBC Hgb Hct MCV MCH MCHC RDW Plt Count [place] % (Auto) [place] # Seg Neutrophils % Seg Neuts % (Manual) Nucleated RBC % Seg Neutrophils # Seg Neutrophils # Man PT INR POC ABG pH POC ABG pCO2 POC ABG pO2 Sodium Potassium Chloride Carbon Dioxide BUN Creatinine Glucose POC Glucose 206 H 188 H 188 H Lactic Acid Calcium Magnesium Total Bilirubin AST ALT Alkaline Phosphatase Ammonia Troponin T C-Reactive Protein Total Protein Albumin Prealbumin TSH Crossmatch 09/26/16 09/26/16 09/26/16 01:29 03:46 03:46 WBC RBC 2.76 L Hgb 8.6 L Hct 26.2 L MCV MCH MCHC RDW 18.2 H Plt Count [place] % (Auto) [place] # Seg Neutrophils % Seg Neuts % (Manual) Nucleated RBC % Seg Neutrophils # Seg Neutrophils # Man PT INR POC ABG pH POC ABG pCO2 POC ABG pO2 Sodium 147 H Potassium Chloride 114.1 H Carbon Dioxide BUN 28 H Creatinine 0.4 L Glucose 172 H POC Glucose 198 H Lactic Acid Calcium 7.6 L Magnesium Total Bilirubin AST ALT Alkaline Phosphatase Ammonia Troponin T C-Reactive Protein Total Protein Albumin Prealbumin TSH Crossmatch 09/26/16 09/26/16 09/26/16 08:08 12:39 16:56 WBC RBC Hgb Hct MCV MCH MCHC RDW Plt Count [place] % (Auto) [place] # Seg Neutrophils % Seg Neuts % (Manual) Nucleated RBC % Seg Neutrophils # Seg Neutrophils # Man PT INR POC ABG pH POC ABG pCO2 POC ABG pO2 Sodium Potassium Chloride Carbon Dioxide BUN Creatinine Glucose POC Glucose 161 H 176 H 128 H Lactic Acid Calcium Magnesium Total Bilirubin AST ALT Alkaline Phosphatase Ammonia Troponin T C-Reactive Protein Total Protein Albumin Prealbumin TSH Crossmatch 09/26/16 09/27/16 09/27/16 21:33 06:31 07:23 WBC RBC Hgb Hct MCV MCH MCHC RDW Plt Count [place] % (Auto) [place] # Seg Neutrophils % Seg Neuts % (Manual) Nucleated RBC % Seg Neutrophils # Seg Neutrophils # Man PT INR POC ABG pH POC ABG pCO2 POC ABG pO2 Sodium Potassium Chloride Carbon Dioxide BUN Creatinine Glucose POC Glucose 120 H 209 H 173 H Lactic Acid Calcium Magnesium Total Bilirubin AST ALT Alkaline Phosphatase Ammonia Troponin T C-Reactive Protein Total Protein Albumin Prealbumin TSH Crossmatch 09/27/16 09/27/16 09/27/16 11:31 17:22 20:41 WBC RBC Hgb Hct MCV MCH MCHC RDW Plt Count [place] % (Auto) [place] # Seg Neutrophils % Seg Neuts % (Manual) Nucleated RBC % Seg Neutrophils # Seg Neutrophils # Man PT INR POC ABG pH POC ABG pCO2 POC ABG pO2 Sodium Potassium Chloride Carbon Dioxide BUN Creatinine Glucose POC Glucose 185 H 167 H 185 H Lactic Acid Calcium Magnesium Total Bilirubin AST ALT Alkaline Phosphatase Ammonia Troponin T C-Reactive Protein Total Protein Albumin Prealbumin TSH Crossmatch 09/28/16 09/28/16 09/28/16 00:30 04:00 04:00 WBC RBC 3.00 L Hgb 9.4 L Hct 28.7 L MCV MCH MCHC RDW 19.1 H Plt Count [place] % (Auto) [place] # Seg Neutrophils % Seg Neuts % (Manual) Nucleated RBC % Seg Neutrophils # Seg Neutrophils # Man PT INR POC ABG pH POC ABG pCO2 POC ABG pO2 Sodium Potassium Chloride 110.5 H Carbon Dioxide BUN 24 H Creatinine 0.3 L Glucose 214 H POC Glucose 159 H Lactic Acid Calcium 7.9 L Magnesium Total Bilirubin AST ALT Alkaline Phosphatase Ammonia Troponin T C-Reactive Protein Total Protein Albumin Prealbumin TSH Crossmatch 09/28/16 09/28/16 09/28/16 04:12 09:58 15:15 WBC RBC Hgb Hct MCV MCH MCHC RDW Plt Count [place] % (Auto) [place] # Seg Neutrophils % Seg Neuts % (Manual) Nucleated RBC % Seg Neutrophils # Seg Neutrophils # Man PT INR POC ABG pH POC ABG pCO2 POC ABG pO2 Sodium Potassium Chloride Carbon Dioxide BUN Creatinine Glucose POC Glucose 209 H 191 H 162 H Lactic Acid Calcium Magnesium Total Bilirubin AST ALT Alkaline Phosphatase Ammonia Troponin T C-Reactive Protein Total Protein Albumin Prealbumin TSH Crossmatch 09/28/16 09/28/16 09/29/16 17:58 21:38 02:38 WBC RBC Hgb Hct MCV MCH MCHC RDW Plt Count [place] % (Auto) [place] # Seg Neutrophils % Seg Neuts % (Manual) Nucleated RBC % Seg Neutrophils # Seg Neutrophils # Man PT INR POC ABG pH POC ABG pCO2 POC ABG pO2 Sodium Potassium Chloride Carbon Dioxide BUN Creatinine Glucose POC Glucose 174 H 162 H 180 H Lactic Acid Calcium Magnesium Total Bilirubin AST ALT Alkaline Phosphatase Ammonia Troponin T C-Reactive Protein Total Protein Albumin Prealbumin TSH Crossmatch 09/29/16 09/29/16 09/29/16 05:16 10:24 14:37 WBC RBC Hgb Hct MCV MCH MCHC RDW Plt Count [place] % (Auto) [place] # Seg Neutrophils % Seg Neuts % (Manual) Nucleated RBC % Seg Neutrophils # Seg Neutrophils # Man PT INR POC ABG pH POC ABG pCO2 POC ABG pO2 Sodium Potassium Chloride Carbon Dioxide BUN Creatinine Glucose POC Glucose 152 H 182 H 190 H Lactic Acid Calcium Magnesium Total Bilirubin AST ALT Alkaline Phosphatase Ammonia Troponin T C-Reactive Protein Total Protein Albumin Prealbumin TSH Crossmatch 09/29/16 09/29/16 09/30/16 17:30 21:39 01:45 WBC RBC Hgb Hct MCV MCH MCHC RDW Plt Count [place] % (Auto) [place] # Seg Neutrophils % Seg Neuts % (Manual) Nucleated RBC % Seg Neutrophils # Seg Neutrophils # Man PT INR POC ABG pH POC ABG pCO2 POC ABG pO2 Sodium Potassium Chloride Carbon Dioxide BUN Creatinine Glucose POC Glucose 192 H 219 H 210 H Lactic Acid Calcium Magnesium Total Bilirubin AST ALT Alkaline Phosphatase Ammonia Troponin T C-Reactive Protein Total Protein Albumin Prealbumin TSH Crossmatch 09/30/16 09/30/16 09/30/16 05:02 07:42 08:30 WBC RBC Hgb Hct MCV MCH MCHC RDW Plt Count [place] % (Auto) [place] # Seg Neutrophils % Seg Neuts % (Manual) Nucleated RBC % Seg Neutrophils # Seg Neutrophils # Man PT INR POC ABG pH POC ABG pCO2 POC ABG pO2 Sodium Potassium 3.5 L Chloride 108.5 H Carbon Dioxide BUN 22 H Creatinine 0.4 L Glucose 223 H POC Glucose 148 H 227 H Lactic Acid Calcium 7.8 L Magnesium 1.50 L Total Bilirubin AST ALT Alkaline Phosphatase Ammonia Troponin T C-Reactive Protein Total Protein Albumin Prealbumin TSH Crossmatch 09/30/16 09/30/16 09/30/16 11:48 15:21 18:06 WBC RBC Hgb Hct MCV MCH MCHC RDW Plt Count [place] % (Auto) [place] # Seg Neutrophils % Seg Neuts % (Manual) Nucleated RBC % Seg Neutrophils # Seg Neutrophils # Man PT INR POC ABG pH POC ABG pCO2 POC ABG pO2 Sodium Potassium Chloride Carbon Dioxide BUN Creatinine Glucose POC Glucose 286 H 281 H 194 H Lactic Acid Calcium Magnesium Total Bilirubin AST ALT Alkaline Phosphatase Ammonia Troponin T C-Reactive Protein Total Protein Albumin Prealbumin TSH Crossmatch 09/30/16 10/01/16 10/01/16 21:23 03:27 05:36 WBC RBC Hgb Hct MCV MCH MCHC RDW Plt Count [place] % (Auto) [place] # Seg Neutrophils % Seg Neuts % (Manual) Nucleated RBC % Seg Neutrophils # Seg Neutrophils # Man PT INR POC ABG pH POC ABG pCO2 POC ABG pO2 Sodium Potassium Chloride Carbon Dioxide BUN Creatinine Glucose POC Glucose 117 H 161 H 160 H Lactic Acid Calcium Magnesium Total Bilirubin AST ALT Alkaline Phosphatase Ammonia Troponin T C-Reactive Protein Total Protein Albumin Prealbumin TSH Crossmatch 10/01/16 10/01/16 10/01/16 08:35 08:35 11:06 WBC 11.7 H RBC 2.75 L Hgb 8.5 L Hct 26.5 L MCV MCH MCHC RDW 21.0 H Plt Count [place] % (Auto) 11.7 H [place] # 1.4 H Seg Neutrophils % Seg Neuts % (Manual) Nucleated RBC % Seg Neutrophils # 7.8 H Seg Neutrophils # Man PT INR POC ABG pH POC ABG pCO2 POC ABG pO2 Sodium Potassium Chloride 108.0 H Carbon Dioxide BUN 20 H Creatinine 0.4 L Glucose 137 H POC Glucose 160 H Lactic Acid Calcium 7.9 L Magnesium Total Bilirubin AST ALT Alkaline Phosphatase Ammonia Troponin T C-Reactive Protein Total Protein Albumin Prealbumin TSH Crossmatch 10/01/16 10/01/16 11:50 13:47 WBC RBC Hgb Hct MCV MCH MCHC RDW Plt Count [place] % (Auto) [place] # Seg Neutrophils % Seg Neuts % (Manual) Nucleated RBC % Seg Neutrophils # Seg Neutrophils # Man PT INR POC ABG pH POC ABG pCO2 POC ABG pO2 Sodium Potassium Chloride Carbon Dioxide BUN Creatinine Glucose POC Glucose 142 H 151 H Lactic Acid Calcium Magnesium Total Bilirubin AST ALT Alkaline Phosphatase Ammonia Troponin T C-Reactive Protein Total Protein Albumin Prealbumin TSH Crossmatch Allied health notes reviewed: RT
[2016-10-02] MEDS: DUONEB 0.5 MG-3 MG/3 ML SOLN IH SCH ×4 (02:36→19:30)
[2016-10-02] MEDS: NOVOLOG SUB-Q SCH ×6 (02:38→22:17)
[2016-10-02] MEDS: CORDARONE 900 MG in D5W 482 ML IV SCH (04:19)
[2016-10-02] MEDS: PROAMATINE PO SCH ×3 (05:19→22:12)
--- NOTE | 2016-10-02 07:00 | Progress Note ---
Assessment and Plan Altered mental status/encephalopathy Chronic respiratory failure intubated on the vent Anemia requiring blood transfusion Morbid Obesity Decubitus ulcers Diabetes Afib with RVR -on IV amiodarone with moderate rate control AND/DNR status EF 50-55% on echo 06/2016. Prognosis extremely guarded Subjective Date of service: 10/02/16 Principal diagnosis: Acute Hypoxemic Hypercapnic Resp Failure; Severe Sepsis Interval history: No events overnight. Objective Vital Signs Temp Pulse Pulse Pulse Resp Resp BP 10/02/16 06:00 100 H 17 153/56 10/02/16 05:00 100 H 28 H 122/48 10/02/16 04:39 100 H 115/45 10/02/16 04:00 98.5 F 96 H 98 H 28 H 132/42 10/02/16 03:01 126 H 18 132/62 10/02/16 02:42 88 30 H 10/02/16 02:32 91 H 32 H 10/02/16 02:00 94 H 24 131/56 10/02/16 01:00 87 26 H 124/55 10/02/16 00:00 97.3 F L 85 22 135/48 10/01/16 23:40 76 139/56 10/01/16 23:14 114 H 18 10/01/16 23:05 80 25 H 132/53 10/01/16 23:00 83 26 H 132/53 10/01/16 22:01 73 14 114/53 10/01/16 22:00 97.3 F L 65 10/01/16 21:00 72 14 124/56 10/01/16 20:00 61 64 29 H 110/50 10/01/16 19:52 71 25 H 10/01/16 19:48 73 137/44 10/01/16 19:42 70 16 10/01/16 19:00 69 10 L 127/65 10/01/16 18:00 66 10 L 123/51 10/01/16 17:01 69 24 135/53 10/01/16 16:05 67 102/52 10/01/16 16:00 95.4 F L 68 70 25 H 122/53 10/01/16 15:00 64 15 128/39 10/01/16 14:43 68 25 H 10/01/16 14:05 67 115/45 10/01/16 14:00 70 66 5 L 25 H 122/50 10/01/16 13:00 66 25 H 103/61 10/01/16 12:00 97 F L 67 68 25 H 106/50 10/01/16 11:49 66 12 10/01/16 11:30 96.9 F L 66 25 H 109/49 10/01/16 11:25 66 25 H 107/46 10/01/16 11:20 66 25 H 112/47 10/01/16 11:15 66 25 H 112/45 10/01/16 11:10 67 25 H 112/45 10/01/16 11:05 66 25 H 111/46 10/01/16 11:02 66 110/44 10/01/16 11:00 66 25 H 110/44 10/01/16 10:58 97.3 F L 66 25 H 117/41 10/01/16 08:19 71 27 H 10/01/16 08:00 97.4 F L 75 70 25 H 119/58 10/01/16 07:42 98 H 33 H 10/01/16 07:35 78 10/01/16 07:00 70 26 H 123/56 Pulse Ox 10/02/16 06:00 95 10/02/16 05:00 95 10/02/16 04:39 95 10/02/16 04:00 95 10/02/16 03:01 95 10/02/16 02:42 10/02/16 02:32 10/02/16 02:00 97 10/02/16 01:00 95 10/02/16 00:00 96 10/01/16 23:40 99 10/01/16 23:14 97 10/01/16 23:05 99 10/01/16 23:00 97 10/01/16 22:01 97 10/01/16 22:00 10/01/16 21:00 96 10/01/16 20:00 97 10/01/16 19:52 10/01/16 19:48 99 10/01/16 19:42 10/01/16 19:00 99 10/01/16 18:00 100 10/01/16 17:01 100 10/01/16 16:05 100 10/01/16 16:00 100 10/01/16 15:00 99 10/01/16 14:43 10/01/16 14:05 100 10/01/16 14:00 99 10/01/16 13:00 98 10/01/16 12:00 98 10/01/16 11:49 88 10/01/16 11:30 99 10/01/16 11:25 99 10/01/16 11:20 98 10/01/16 11:15 98 10/01/16 11:10 98 10/01/16 11:05 98 10/01/16 11:02 99 10/01/16 11:00 100 10/01/16 10:58 99 10/01/16 08:19 10/01/16 08:00 100 10/01/16 07:42 10/01/16 07:35 100 10/01/16 07:00 100 - Physical Examination Narrative exam: Obese . alert but non verbal General: Other (intubated on the vent) HEENT: Positive: PERRL, Normocephaly, Mucus Membranes Moist Neck: Positive: neck supple. Negative: JVD/HJR Cardiac: Positive: irregularly irregular Lungs: Positive: clear to auscultation Neuro: Positive: Other (sedated, on the vent) Abdomen: Positive: Unremarkable, Soft Skin: Positive: Clear Extremities: Present: normal. Absent: edema - Labs and Meds CBC 10/01/16 Range/Units 08:35 WBC 11.7 H (4.5-11.0) K/mm3 RBC 2.75 L (3.65-5.03) M/mm3 Hgb 8.5 L (10.1-14.3) gm/dl Hct 26.5 L (30.3-42.9) % Plt Count 272 (140-440) K/mm3 Lymph # 2.3 (1.2-5.4) K/mm3 [place] # 1.4 H (0.0-0.8) K/mm3 Eos # 0.1 (0.0-0.4) K/mm3 Baso # 0.1 (0.0-0.1) K/mm3 Comprehensive Metabolic Panel 10/01/16 Range/Units 08:35 Sodium 140 (137-145) mmol/L Potassium 3.7 (3.6-5.0) mmol/L Chloride 108.0 H (98-107) mmol/L Carbon Dioxide 22 (22-30) mmol/L BUN 20 H (7-17) mg/dL Creatinine 0.4 L (0.7-1.2) mg/dL Glucose 137 H (65-100) mg/dL Calcium 7.9 L (8.4-10.2) mg/dL - Allied health notes Allied health notes reviewed: RT
[2016-10-02] MEDS: KEPPRA PO SCH ×2 (09:46→22:11)
[2016-10-02] MEDS: FERROUS SULFATE PO SCH (09:46)
[2016-10-02] MEDS: FOLVITE PO SCH (09:46)
[2016-10-02] MEDS: LEVEMIR SUB-Q SCH (09:47)
[2016-10-02] MEDS: POTASSIUM CHLORIDE FEEDTUBE SCH (09:47)
[2016-10-02] MEDS: PROTONIX PO SCH (09:48)
[2016-10-02] MEDS: SYNTHROID PO SCH (09:48)
--- NOTE | 2016-10-02 10:50 | Progress Note ---
Assessment and Plan - Patient Problems (1) Respiratory failure Current Visit: Yes Status: Acute Qualifiers: Chronicity: C Respiratory failure complication: R Plan to address problem: Currently on mechanical ventilatory support AC-VC at night and pressure support during the day VAP bundle addressed Wean FIO2 for O2 sats>92% HOB>40, aspiration precautions VTE prophylaxis- discontinue enoxaparin in view of anemia and use SCDs Stress ulcer prophylaxis- Pantoprazole Lung protective strategies s/p Tracheostomy Continue with enteric feedings, monitor accucheck (2) Shock Current Visit: Yes Status: Acute Plan to address problem: Treated as septic shock secondary to HCAP -resolved (3) Acute on chronic diastolic (congestive) heart failure Current Visit: No Status: Acute Plan to address problem: Documented EF 55% Continue to monitoring renal function and electrolyte profile closely Monitor urine output, electrolyte profile (4) Altered mental status Current Visit: Yes Status: Acute Qualifiers: Altered mental status type: unspecified Coma depth: C Coma timing: C Qualified Code(s): R41.82 - Altered mental status, unspecified Plan to address problem: Continue to monitor (5) Morbid obesity Current Visit: Yes Status: Acute Qualifiers: Obesity type: unspecified obesity type Qualified Code(s): E66.01 - Morbid ( severe) obesity due to excess calories (6) Anemia Current Visit: Yes Status: Acute Qualifiers: Anemia type: unspecified type Iron deficiency anemia type: I Vitamin B12 deficiency anemia type: V Folate deficiency anemia type: F Bone marrow failure anemia type: B Hemolytic anemia type: H Other causes of anemia: O Chronic kidney disease stage: C Qualified Code(s): D64.9 - Anemia, unspecified Plan to address problem: Continue to monitor. CBC prn Supportive transfusions (7) Status epilepticus Current Visit: Yes Status: Acute Plan to address problem: Continue AEDs Unable to get neuro-imaging secondary to her weight Neurology following (8) Discharge planning issues Current Visit: Yes Status: Acute Plan to address problem: Continue current care. AND/DNR LTACH placement when a bed becomes available. s/p PEG/Tracheostomy (9) Atrial fibrillation Current Visit: No Status: Chronic Qualifiers: Atrial fibrillation type: A Plan to address problem: Rate controlled on amiodarone infusion. cardiology following Subjective Date of service: 10/02/16 Principal diagnosis: Acute Hypoxemic Hypercapnic Resp Failure; Severe Sepsis Interval history: Remains orally intubated. Seen and examined. Vitals, labs, medications, chart and imaging reviewed. s/p Tracheostomy and PEG Tolerating spontaneous breathing trials during the day and full support at night. PS10/5, with tidal volumes of 340 AC/VC 25/400/5/25% Continues to have episodes of Afib with RVR, on amiodarone infusion at 0.5mg Objective Vital Signs - 12hr 10/01/16 10/01/16 10/01/16 23:00 23:05 23:14 Temperature Pulse Rate 83 80 Pulse Rate [ Anterior Bilateral Throughout] Pulse Rate [ 114 H From Monitor] Respiratory 26 H 25 H 18 Rate Respiratory Rate [Anterior Bilateral Throughout] Blood Pressure 132/53 132/53 O2 Sat by Pulse 97 99 97 Oximetry O2 Sat by Pulse Oximetry [ Assessment] 10/01/16 10/02/16 10/02/16 23:40 00:00 01:00 Temperature 97.3 F L Pulse Rate 76 85 87 Pulse Rate [ Anterior Bilateral Throughout] Pulse Rate [ From Monitor] Respiratory 22 26 H Rate Respiratory Rate [Anterior Bilateral Throughout] Blood Pressure 139/56 135/48 124/55 O2 Sat by Pulse 99 96 95 Oximetry O2 Sat by Pulse Oximetry [ Assessment] 10/02/16 10/02/16 10/02/16 02:00 02:32 02:42 Temperature Pulse Rate 94 H Pulse Rate [ 91 H 88 Anterior Bilateral Throughout] Pulse Rate [ From Monitor] Respiratory 24 Rate Respiratory 32 H 30 H Rate [Anterior Bilateral Throughout] Blood Pressure 131/56 O2 Sat by Pulse 97 Oximetry O2 Sat by Pulse Oximetry [ Assessment] 10/02/16 10/02/16 10/02/16 03:01 04:00 04:39 Temperature 98.5 F Pulse Rate 126 H 96 H 100 H Pulse Rate [ Anterior Bilateral Throughout] Pulse Rate [ 98 H From Monitor] Respiratory 18 28 H Rate Respiratory Rate [Anterior Bilateral Throughout] Blood Pressure 132/62 132/42 115/45 O2 Sat by Pulse 95 95 95 Oximetry O2 Sat by Pulse Oximetry [ Assessment] 10/02/16 10/02/16 10/02/16 05:00 06:00 07:00 Temperature Pulse Rate 100 H 100 H 103 H Pulse Rate [ Anterior Bilateral Throughout] Pulse Rate [ From Monitor] Respiratory 28 H 17 15 Rate Respiratory Rate [Anterior Bilateral Throughout] Blood Pressure 122/48 153/56 119/64 O2 Sat by Pulse 95 95 94 Oximetry O2 Sat by Pulse Oximetry [ Assessment] 10/02/16 10/02/16 10/02/16 07:50 08:00 09:00 Temperature 98.6 F Pulse Rate 95 H 100 H Pulse Rate [ Anterior Bilateral Throughout] Pulse Rate [ From Monitor] Respiratory 27 H 29 H Rate Respiratory Rate [Anterior Bilateral Throughout] Blood Pressure 103/49 90/57 O2 Sat by Pulse 97 98 Oximetry O2 Sat by Pulse Oximetry [ Assessment] 10/02/16 10/02/16 10/02/16 09:08 09:25 09:38 Temperature Pulse Rate 100 H Pulse Rate [ 100 H 103 H Anterior Bilateral Throughout] Pulse Rate [ From Monitor] Respiratory Rate Respiratory 25 H 36 H Rate [Anterior Bilateral Throughout] Blood Pressure 90/57 O2 Sat by Pulse 97 Oximetry O2 Sat by Pulse 97 Oximetry [ Assessment] 10/02/16 10:00 Temperature Pulse Rate 98 H Pulse Rate [ Anterior Bilateral Throughout] Pulse Rate [ From Monitor] Respiratory Rate Respiratory Rate [Anterior Bilateral Throughout] Blood Pressure O2 Sat by Pulse Oximetry O2 Sat by Pulse Oximetry [ Assessment] Constitutional: no acute distress, other (encephalopathic, extreme obesity) Eyes: non-icteric ENT: oropharynx moist, other (s/p tracheostomy) Neck: supple, no lymphadenopathy Effort: normal, mildly labored Ascultation: Bilateral: clear, diminished breath sounds, rales (bases) Cardiovascular: irregular rhythm Gastrointestinal: normoactive bowel sounds, hypoactive bowel sounds, soft, non- tender, non-distended Integumentary: normal, cellulitis (over the anterior aspects of her thighs, induration, skin is intact) Extremities: no cyanosis, pulses normal, no ischemia or petechiae, edema (2+) Neurologic: unable to assess, other (encephalopathic, awake) Psychiatric: other (unable to assess) CBC and BMP: 10/01/16 08:35 10/01/16 08:35 ABG, PT/INR, D-dimer: ABG POC ABG pH 7.460 (7.35-7.45) H 09/22/16 03:26 POC ABG pCO2 29.9 (35-45) L 09/22/16 03:26 POC ABG pO2 112 (80-105) H 09/22/16 03:26 POC ABG HCO3 21.3 09/22/16 03:26 POC ABG Total CO2 22 09/22/16 03:26 POC ABG O2 Sat 99 09/22/16 03:26 PT/INR, D-dimer PT 14.4 Sec. (12.2-14.9) 09/30/16 17:30 INR 1.13 (0.87-1.13) 09/30/16 17:30 Abnormal lab findings: Abnormal Labs 08/29/16 08/30/16 08/30/16 21:59 00:16 05:39 WBC RBC Hgb Hct MCV MCH MCHC RDW Plt Count [place] % (Auto) [place] # Seg Neutrophils % Seg Neuts % (Manual) Nucleated RBC % Seg Neutrophils # Seg Neutrophils # Man PT INR POC ABG pH POC ABG pCO2 POC ABG pO2 Sodium Potassium Chloride Carbon Dioxide BUN Creatinine Glucose POC Glucose 106 H 128 H Lactic Acid Calcium Magnesium Total Bilirubin AST ALT Alkaline Phosphatase Ammonia Troponin T C-Reactive Protein Total Protein Albumin Prealbumin 0.120 L TSH Crossmatch 08/30/16 08/30/16 08/30/16 10:30 10:30 11:12 WBC 11.1 H RBC 3.16 L Hgb 8.7 L Hct 29.9 L MCV MCH MCHC 29 L RDW 25.0 H Plt Count [place] % (Auto) [place] # Seg Neutrophils % 78.6 H Seg Neuts % (Manual) Nucleated RBC % Seg Neutrophils # 8.7 H Seg Neutrophils # Man PT INR POC ABG pH POC ABG pCO2 POC ABG pO2 Sodium 135 L Potassium Chloride Carbon Dioxide 20 L BUN Creatinine 1.5 H Glucose 148 H POC Glucose 142 H Lactic Acid Calcium 7.2 L Magnesium Total Bilirubin 1.30 H AST 143 H ALT Alkaline Phosphatase 392 H Ammonia Troponin T C-Reactive Protein Total Protein 6.1 L Albumin 1.2 L Prealbumin TSH Crossmatch 08/30/16 08/30/16 08/30/16 17:41 18:03 18:18 WBC RBC Hgb Hct MCV MCH MCHC RDW Plt Count [place] % (Auto) [place] # Seg Neutrophils % Seg Neuts % (Manual) Nucleated RBC % Seg Neutrophils # Seg Neutrophils # Man PT INR POC ABG pH 7.316 L POC ABG pCO2 POC ABG pO2 44 L 59 L Sodium Potassium Chloride Carbon Dioxide BUN Creatinine Glucose POC Glucose 150 H Lactic Acid Calcium Magnesium Total Bilirubin AST ALT Alkaline Phosphatase Ammonia Troponin T C-Reactive Protein Total Protein Albumin Prealbumin TSH Crossmatch 08/30/16 08/30/16 08/31/16 22:20 22:20 00:11 WBC RBC Hgb Hct MCV MCH MCHC RDW Plt Count [place] % (Auto) [place] # Seg Neutrophils % Seg Neuts % (Manual) Nucleated RBC % Seg Neutrophils # Seg Neutrophils # Man PT INR POC ABG pH POC ABG pCO2 POC ABG pO2 Sodium Potassium Chloride Carbon Dioxide BUN Creatinine Glucose POC Glucose 133 H Lactic Acid 2.30 H* Calcium Magnesium Total Bilirubin AST ALT Alkaline Phosphatase Ammonia Troponin T C-Reactive Protein 10.20 H Total Protein Albumin Prealbumin TSH Crossmatch 08/31/16 08/31/16 08/31/16 04:20 04:20 04:20 WBC 18.3 H RBC 3.19 L Hgb 8.8 L Hct 30.0 L MCV MCH 27 L MCHC 29 L RDW 23.9 H Plt Count [place] % (Auto) [place] # Seg Neutrophils % Seg Neuts % (Manual) Nucleated RBC % Seg Neutrophils # Seg Neutrophils # Man PT 16.8 H INR 1.37 H POC ABG pH POC ABG pCO2 POC ABG pO2 Sodium 136 L Potassium Chloride Carbon Dioxide 19 L BUN Creatinine 1.5 H Glucose 125 H POC Glucose Lactic Acid Calcium 7.0 L Magnesium Total Bilirubin 1.50 H AST 131 H ALT Alkaline Phosphatase 431 H Ammonia Troponin T C-Reactive Protein Total Protein 6.2 L Albumin 1.2 L Prealbumin TSH Crossmatch 08/31/16 08/31/16 08/31/16 04:20 05:22 05:24 WBC RBC Hgb Hct MCV MCH MCHC RDW Plt Count [place] % (Auto) [place] # Seg Neutrophils % Seg Neuts % (Manual) Nucleated RBC % Seg Neutrophils # Seg Neutrophils # Man PT INR POC ABG pH POC ABG pCO2 POC ABG pO2 142 H Sodium Potassium Chloride Carbon Dioxide BUN Creatinine Glucose POC Glucose 123 H Lactic Acid Calcium Magnesium Total Bilirubin AST ALT Alkaline Phosphatase Ammonia 70.0 H Troponin T C-Reactive Protein Total Protein Albumin Prealbumin TSH Crossmatch 08/31/16 08/31/16 08/31/16 12:10 15:45 17:38 WBC RBC Hgb Hct MCV MCH MCHC RDW Plt Count [place] % (Auto) [place] # Seg Neutrophils % Seg Neuts % (Manual) Nucleated RBC % Seg Neutrophils # Seg Neutrophils # Cristian PT INR POC ABG pH POC ABG pCO2 POC ABG pO2 Sodium 136 L Potassium Chloride Carbon Dioxide 21 L BUN Creatinine 1.5 H Glucose 160 H POC Glucose 147 H 151 H Lactic Acid Calcium 6.9 L Magnesium Total Bilirubin AST ALT Alkaline Phosphatase Ammonia Troponin T 0.109 H* D C-Reactive Protein Total Protein Albumin Prealbumin TSH Crossmatch 09/01/16 09/01/16 09/01/16 00:09 04:00 04:00 WBC 14.8 H RBC 2.89 L Hgb 7.8 L Hct 27.2 L MCV MCH 27 L MCHC 29 L RDW 24.4 H Plt Count [place] % (Auto) [place] # Seg Neutrophils % Seg Neuts % (Manual) Nucleated RBC % Seg Neutrophils # Seg Neutrophils # Cristian PT 18.2 H INR 1.51 H POC ABG pH POC ABG pCO2 POC ABG pO2 Sodium Potassium Chloride Carbon Dioxide BUN Creatinine Glucose POC Glucose 192 H Lactic Acid Calcium Magnesium Total Bilirubin AST ALT Alkaline Phosphatase Ammonia Troponin T C-Reactive Protein Total Protein Albumin Prealbumin TSH Crossmatch 09/01/16 09/01/16 09/01/16 04:00 05:28 11:28 WBC RBC Hgb Hct MCV MCH MCHC RDW Plt Count [place] % (Auto) [place] # Seg Neutrophils % Seg Neuts % (Manual) Nucleated RBC % Seg Neutrophils # Seg Neutrophils # Cristian PT INR POC ABG pH POC ABG pCO2 POC ABG pO2 Sodium Potassium Chloride Carbon Dioxide 20 L BUN Creatinine 1.6 H Glucose 183 H POC Glucose 189 H 207 H Lactic Acid Calcium 6.9 L Magnesium Total Bilirubin 1.30 H AST 138 H ALT Alkaline Phosphatase 520 H Ammonia Troponin T C-Reactive Protein Total Protein 6.1 L Albumin 1.2 L Prealbumin TSH Crossmatch 09/01/16 09/01/16 09/02/16 16:56 23:49 05:00 WBC RBC Hgb Hct MCV MCH MCHC RDW Plt Count [place] % (Auto) [place] # Seg Neutrophils % Seg Neuts % (Manual) Nucleated RBC % Seg Neutrophils # Seg Neutrophils # Cristian PT 18.0 H INR 1.49 H POC ABG pH POC ABG pCO2 POC ABG pO2 Sodium Potassium Chloride Carbon Dioxide BUN Creatinine Glucose POC Glucose 250 H 307 H Lactic Acid Calcium Magnesium Total Bilirubin AST ALT Alkaline Phosphatase Ammonia Troponin T C-Reactive Protein Total Protein Albumin Prealbumin TSH Crossmatch 09/02/16 09/02/16 09/02/16 05:00 05:00 05:45 WBC 12.3 H RBC 2.57 L Hgb 7.1 L Hct 23.4 L MCV MCH MCHC RDW 23.9 H Plt Count [place] % (Auto) [place] # Seg Neutrophils % Seg Neuts % (Manual) 72.0 H Nucleated RBC % 25.0 H Seg Neutrophils # Seg Neutrophils # Man 8.9 H PT INR POC ABG pH POC ABG pCO2 POC ABG pO2 Sodium Potassium Chloride Carbon Dioxide BUN Creatinine 1.4 H Glucose 299 H POC Glucose 327 H Lactic Acid Calcium 7.0 L Magnesium Total Bilirubin AST ALT Alkaline Phosphatase Ammonia Troponin T C-Reactive Protein Total Protein Albumin Prealbumin TSH Crossmatch 09/02/16 09/02/16 09/02/16 12:22 17:22 23:24 WBC RBC Hgb Hct MCV MCH MCHC RDW Plt Count [place] % (Auto) [place] # Seg Neutrophils % Seg Neuts % (Manual) Nucleated RBC % Seg Neutrophils # Seg Neutrophils # Man PT INR POC ABG pH POC ABG pCO2 POC ABG pO2 Sodium Potassium Chloride Carbon Dioxide BUN Creatinine Glucose POC Glucose 310 H 358 H 286 H Lactic Acid Calcium Magnesium Total Bilirubin AST ALT Alkaline Phosphatase Ammonia Troponin T C-Reactive Protein Total Protein Albumin Prealbumin TSH Crossmatch 09/03/16 09/03/16 09/03/16 04:10 04:10 04:10 WBC 11.8 H RBC 2.29 L Hgb 6.1 L Hct 21.0 L MCV MCH 27 L MCHC 29 L RDW 24.1 H Plt Count [place] % (Auto) [place] # Seg Neutrophils % Seg Neuts % (Manual) Nucleated RBC % Seg Neutrophils # Seg Neutrophils # Man PT 17.6 H INR 1.45 H POC ABG pH POC ABG pCO2 POC ABG pO2 Sodium Potassium Chloride Carbon Dioxide BUN Creatinine 1.4 H Glucose 301 H POC Glucose Lactic Acid Calcium 7.0 L Magnesium Total Bilirubin AST ALT Alkaline Phosphatase Ammonia Troponin T C-Reactive Protein Total Protein Albumin Prealbumin TSH Crossmatch 09/03/16 09/03/16 09/03/16 05:59 11:36 17:42 WBC RBC Hgb Hct MCV MCH MCHC RDW Plt Count [place] % (Auto) [place] # Seg Neutrophils % Seg Neuts % (Manual) Nucleated RBC % Seg Neutrophils # Seg Neutrophils # Cristian PT INR POC ABG pH POC ABG pCO2 POC ABG pO2 Sodium Potassium Chloride Carbon Dioxide BUN Creatinine Glucose POC Glucose 351 H 285 H 259 H Lactic Acid Calcium Magnesium Total Bilirubin AST ALT Alkaline Phosphatase Ammonia Troponin T C-Reactive Protein Total Protein Albumin Prealbumin TSH Crossmatch 09/03/16 09/04/16 09/04/16 23:00 04:27 05:36 WBC RBC Hgb Hct MCV MCH MCHC RDW Plt Count [place] % (Auto) [place] # Seg Neutrophils % Seg Neuts % (Manual) Nucleated RBC % Seg Neutrophils # Seg Neutrophils # Man PT INR POC ABG pH 7.544 H POC ABG pCO2 30.8 L POC ABG pO2 78 L Sodium Potassium Chloride Carbon Dioxide BUN Creatinine Glucose POC Glucose 192 H 228 H Lactic Acid Calcium Magnesium Total Bilirubin AST ALT Alkaline Phosphatase Ammonia Troponin T C-Reactive Protein Total Protein Albumin Prealbumin TSH Crossmatch 09/04/16 09/04/16 09/04/16 06:37 06:37 06:39 WBC 21.0 H RBC 2.22 L Hgb 6.0 L Hct 20.1 L MCV MCH 27 L MCHC RDW 24.3 H Plt Count [place] % (Auto) [place] # Seg Neutrophils % Seg Neuts % (Manual) Nucleated RBC % Seg Neutrophils # Seg Neutrophils # Man PT 16.8 H INR 1.37 H POC ABG pH POC ABG pCO2 POC ABG pO2 Sodium Potassium Chloride Carbon Dioxide BUN Creatinine 1.4 H Glucose 201 H POC Glucose Lactic Acid Calcium 7.1 L Magnesium Total Bilirubin AST ALT Alkaline Phosphatase Ammonia Troponin T C-Reactive Protein Total Protein Albumin Prealbumin TSH Crossmatch 09/04/16 09/04/16 09/04/16 12:14 15:47 17:41 WBC RBC Hgb Hct MCV MCH MCHC RDW Plt Count [place] % (Auto) [place] # Seg Neutrophils % Seg Neuts % (Manual) Nucleated RBC % Seg Neutrophils # Seg Neutrophils # Man PT INR POC ABG pH POC ABG pCO2 POC ABG pO2 Sodium Potassium Chloride Carbon Dioxide BUN Creatinine Glucose POC Glucose 176 H 218 H Lactic Acid Calcium Magnesium Total Bilirubin AST ALT Alkaline Phosphatase Ammonia Troponin T C-Reactive Protein Total Protein Albumin Prealbumin TSH Crossmatch See Detail 09/04/16 09/04/16 09/05/16 21:59 23:48 04:30 WBC RBC Hgb Hct MCV MCH MCHC RDW Plt Count [place] % (Auto) [place] # Seg Neutrophils % Seg Neuts % (Manual) Nucleated RBC % Seg Neutrophils # Seg Neutrophils # Cristian PT 17.2 H INR 1.41 H POC ABG pH POC ABG pCO2 POC ABG pO2 Sodium Potassium Chloride Carbon Dioxide BUN Creatinine Glucose POC Glucose 170 H 121 H Lactic Acid Calcium Magnesium Total Bilirubin AST ALT Alkaline Phosphatase Ammonia Troponin T C-Reactive Protein Total Protein Albumin Prealbumin TSH Crossmatch 09/05/16 09/05/16 09/05/16 04:30 04:30 05:09 WBC 31.9 H RBC 3.11 L Hgb 8.5 L Hct 28.3 L D MCV MCH 27 L MCHC RDW 21.0 H Plt Count [place] % (Auto) [place] # Seg Neutrophils % Seg Neuts % (Manual) Nucleated RBC % Seg Neutrophils # Seg Neutrophils # Cristian PT INR POC ABG pH 7.226 L POC ABG pCO2 61.6 H POC ABG pO2 68 L Sodium 134 L Potassium 5.5 H Chloride 96.6 L Carbon Dioxide BUN 23 H Creatinine 1.6 H Glucose 116 H POC Glucose Lactic Acid Calcium 7.1 L Magnesium Total Bilirubin AST ALT Alkaline Phosphatase Ammonia Troponin T C-Reactive Protein Total Protein Albumin Prealbumin TSH Crossmatch 09/05/16 09/05/16 09/05/16 05:33 12:08 17:32 WBC RBC Hgb Hct MCV MCH MCHC RDW Plt Count [place] % (Auto) [place] # Seg Neutrophils % Seg Neuts % (Manual) Nucleated RBC % Seg Neutrophils # Seg Neutrophils # Cristian PT INR POC ABG pH POC ABG pCO2 POC ABG pO2 Sodium Potassium Chloride Carbon Dioxide BUN Creatinine Glucose POC Glucose 114 H 147 H 174 H Lactic Acid Calcium Magnesium Total Bilirubin AST ALT Alkaline Phosphatase Ammonia Troponin T C-Reactive Protein Total Protein Albumin Prealbumin TSH Crossmatch 09/06/16 09/06/16 09/06/16 03:30 03:30 03:30 WBC 25.4 H RBC 2.57 L Hgb 7.2 L Hct 22.8 L MCV MCH MCHC RDW 20.9 H Plt Count 138 L [place] % (Auto) [place] # Seg Neutrophils % Seg Neuts % (Manual) Nucleated RBC % Seg Neutrophils # Seg Neutrophils # Cristian PT 16.4 H INR 1.33 H POC ABG pH POC ABG pCO2 POC ABG pO2 Sodium Potassium Chloride Carbon Dioxide BUN 36 H Creatinine 1.9 H Glucose POC Glucose Lactic Acid Calcium 7.2 L Magnesium Total Bilirubin AST ALT Alkaline Phosphatase Ammonia Troponin T C-Reactive Protein Total Protein Albumin Prealbumin TSH Crossmatch 09/06/16 09/06/16 09/06/16 11:07 12:03 14:44 WBC RBC Hgb Hct MCV MCH MCHC RDW Plt Count [place] % (Auto) [place] # Seg Neutrophils % Seg Neuts % (Manual) Nucleated RBC % Seg Neutrophils # Seg Neutrophils # Man PT INR POC ABG pH POC ABG pCO2 POC ABG pO2 Sodium Potassium Chloride Carbon Dioxide BUN Creatinine Glucose POC Glucose 61 L 55 L Lactic Acid Calcium Magnesium Total Bilirubin AST ALT Alkaline Phosphatase Ammonia Troponin T 0.080 H C-Reactive Protein Total Protein Albumin Prealbumin TSH Crossmatch 09/06/16 09/06/16 09/07/16 21:05 23:53 03:36 WBC RBC Hgb Hct MCV MCH MCHC RDW Plt Count [place] % (Auto) [place] # Seg Neutrophils % Seg Neuts % (Manual) Nucleated RBC % Seg Neutrophils # Seg Neutrophils # Man PT INR POC ABG pH POC ABG pCO2 POC ABG pO2 Sodium Potassium Chloride Carbon Dioxide BUN Creatinine Glucose POC Glucose 140 H 178 H 243 H Lactic Acid Calcium Magnesium Total Bilirubin AST ALT Alkaline Phosphatase Ammonia Troponin T C-Reactive Protein Total Protein Albumin Prealbumin TSH Crossmatch 09/07/16 09/07/16 09/07/16 03:42 03:42 05:04 WBC 17.3 H RBC 2.69 L Hgb 7.6 L Hct 23.8 L MCV MCH MCHC RDW 20.5 H Plt Count 137 L [place] % (Auto) [place] # Seg Neutrophils % Seg Neuts % (Manual) Nucleated RBC % Seg Neutrophils # Seg Neutrophils # Man PT INR POC ABG pH POC ABG pCO2 POC ABG pO2 Sodium Potassium 3.3 L Chloride Carbon Dioxide BUN 38 H Creatinine 1.6 H Glucose 201 H POC Glucose 241 H Lactic Acid Calcium 7.4 L Magnesium Total Bilirubin AST ALT Alkaline Phosphatase Ammonia Troponin T C-Reactive Protein Total Protein Albumin Prealbumin TSH Crossmatch 09/07/16 09/07/16 09/07/16 11:46 17:41 23:18 WBC RBC Hgb Hct MCV MCH MCHC RDW Plt Count [place] % (Auto) [place] # Seg Neutrophils % Seg Neuts % (Manual) Nucleated RBC % Seg Neutrophils # Seg Neutrophils # Man PT INR POC ABG pH POC ABG pCO2 POC ABG pO2 Sodium Potassium Chloride Carbon Dioxide BUN Creatinine Glucose POC Glucose 313 H 227 H 116 H Lactic Acid Calcium Magnesium Total Bilirubin AST ALT Alkaline Phosphatase Ammonia Troponin T C-Reactive Protein Total Protein Albumin Prealbumin TSH Crossmatch 09/08/16 09/08/16 09/08/16 04:00 04:00 05:15 WBC 18.4 H RBC 2.43 L Hgb 6.9 L Hct 21.5 L MCV MCH MCHC RDW 20.5 H Plt Count 119 L [place] % (Auto) [place] # Seg Neutrophils % Seg Neuts % (Manual) Nucleated RBC % Seg Neutrophils # Seg Neutrophils # Man PT INR POC ABG pH 7.458 H POC ABG pCO2 POC ABG pO2 177 H Sodium Potassium 3.5 L Chloride Carbon Dioxide BUN 37 H Creatinine 1.3 H Glucose POC Glucose Lactic Acid Calcium 7.1 L Magnesium Total Bilirubin AST ALT Alkaline Phosphatase Ammonia Troponin T C-Reactive Protein Total Protein Albumin Prealbumin TSH Crossmatch 09/08/16 09/08/16 09/08/16 11:00 15:58 23:16 WBC RBC Hgb Hct MCV MCH MCHC RDW Plt Count [place] % (Auto) [place] # Seg Neutrophils % Seg Neuts % (Manual) Nucleated RBC % Seg Neutrophils # Seg Neutrophils # Man PT INR POC ABG pH POC ABG pCO2 POC ABG pO2 113 H Sodium Potassium Chloride Carbon Dioxide BUN Creatinine Glucose POC Glucose 40 L Lactic Acid Calcium Magnesium Total Bilirubin AST ALT Alkaline Phosphatase Ammonia Troponin T C-Reactive Protein Total Protein Albumin Prealbumin TSH Crossmatch See Detail 09/09/16 09/09/16 09/09/16 05:02 12:33 18:10 WBC RBC Hgb Hct MCV MCH MCHC RDW Plt Count [place] % (Auto) [place] # Seg Neutrophils % Seg Neuts % (Manual) Nucleated RBC % Seg Neutrophils # Seg Neutrophils # Man PT INR POC ABG pH 7.454 H POC ABG pCO2 POC ABG pO2 75 L Sodium Potassium Chloride Carbon Dioxide BUN Creatinine Glucose POC Glucose 59 L Lactic Acid Calcium Magnesium Total Bilirubin AST ALT Alkaline Phosphatase Ammonia Troponin T C-Reactive Protein Total Protein Albumin Prealbumin TSH 5.220 H Crossmatch 09/09/16 09/09/16 09/09/16 18:10 18:10 18:42 WBC 17.0 H RBC 2.90 L Hgb 8.5 L Hct 26.1 L MCV MCH MCHC RDW 17.9 H Plt Count 126 L [place] % (Auto) [place] # Seg Neutrophils % Seg Neuts % (Manual) Nucleated RBC % Seg Neutrophils # Seg Neutrophils # Man PT INR POC ABG pH POC ABG pCO2 POC ABG pO2 Sodium Potassium Chloride Carbon Dioxide BUN 36 H Creatinine Glucose 133 H POC Glucose 148 H Lactic Acid Calcium 6.9 L Magnesium Total Bilirubin AST 253 H ALT 184 H Alkaline Phosphatase 729 H Ammonia Troponin T C-Reactive Protein Total Protein 5.1 L Albumin 1.7 L Prealbumin TSH Crossmatch 09/09/16 09/10/16 09/10/16 23:22 05:10 11:43 WBC RBC Hgb Hct MCV MCH MCHC RDW Plt Count [place] % (Auto) [place] # Seg Neutrophils % Seg Neuts % (Manual) Nucleated RBC % Seg Neutrophils # Seg Neutrophils # Man PT INR POC ABG pH POC ABG pCO2 POC ABG pO2 Sodium Potassium Chloride Carbon Dioxide BUN 35 H Creatinine Glucose 240 H POC Glucose 170 H 268 H Lactic Acid Calcium 6.8 L Magnesium Total Bilirubin AST 226 H ALT 171 H Alkaline Phosphatase 710 H Ammonia Troponin T C-Reactive Protein Total Protein 5.2 L Albumin 1.7 L Prealbumin TSH Crossmatch 09/10/16 09/11/16 09/11/16 17:51 01:07 05:00 WBC RBC Hgb Hct MCV MCH MCHC RDW Plt Count [place] % (Auto) [place] # Seg Neutrophils % Seg Neuts % (Manual) Nucleated RBC % Seg Neutrophils # Seg Neutrophils # Man PT INR POC ABG pH POC ABG pCO2 POC ABG pO2 Sodium Potassium 2.9 L* Chloride Carbon Dioxide BUN 35 H Creatinine Glucose 274 H POC Glucose 334 H 223 H Lactic Acid Calcium 6.9 L Magnesium Total Bilirubin AST 167 H ALT 145 H Alkaline Phosphatase 631 H Ammonia Troponin T C-Reactive Protein Total Protein 5.1 L Albumin 1.6 L Prealbumin TSH Crossmatch 09/11/16 09/11/16 09/11/16 05:01 12:16 17:12 WBC RBC Hgb Hct MCV MCH MCHC RDW Plt Count [place] % (Auto) [place] # Seg Neutrophils % Seg Neuts % (Manual) Nucleated RBC % Seg Neutrophils # Seg Neutrophils # Man PT INR POC ABG pH POC ABG pCO2 POC ABG pO2 Sodium Potassium Chloride Carbon Dioxide BUN Creatinine Glucose POC Glucose 305 H 219 H 171 H Lactic Acid Calcium Magnesium Total Bilirubin AST ALT Alkaline Phosphatase Ammonia Troponin T C-Reactive Protein Total Protein Albumin Prealbumin TSH Crossmatch 09/11/16 09/12/16 09/12/16 23:35 03:33 05:00 WBC 12.9 H RBC 2.81 L Hgb 8.2 L Hct 25.4 L MCV MCH MCHC RDW 17.9 H Plt Count [place] % (Auto) [place] # Seg Neutrophils % Seg Neuts % (Manual) Nucleated RBC % Seg Neutrophils # Seg Neutrophils # Man PT INR POC ABG pH POC ABG pCO2 POC ABG pO2 Sodium Potassium Chloride Carbon Dioxide BUN Creatinine Glucose POC Glucose 216 H 183 H Lactic Acid Calcium Magnesium Total Bilirubin AST ALT Alkaline Phosphatase Ammonia Troponin T C-Reactive Protein Total Protein Albumin Prealbumin TSH Crossmatch 09/12/16 09/12/16 09/12/16 05:00 15:15 18:30 WBC RBC Hgb Hct MCV MCH MCHC RDW Plt Count [place] % (Auto) [place] # Seg Neutrophils % Seg Neuts % (Manual) Nucleated RBC % Seg Neutrophils # Seg Neutrophils # Man PT INR POC ABG pH POC ABG pCO2 POC ABG pO2 Sodium Potassium 3.0 L 3.4 L Chloride Carbon Dioxide BUN 33 H Creatinine 0.5 L Glucose POC Glucose 215 H Lactic Acid Calcium 7.0 L Magnesium Total Bilirubin AST ALT Alkaline Phosphatase Ammonia Troponin T C-Reactive Protein Total Protein Albumin Prealbumin TSH Crossmatch 09/12/16 09/13/16 09/13/16 23:17 05:50 05:50 WBC RBC 2.93 L Hgb 8.8 L Hct 26.7 L MCV MCH MCHC RDW 18.0 H Plt Count [place] % (Auto) [place] # Seg Neutrophils % Seg Neuts % (Manual) Nucleated RBC % Seg Neutrophils # Seg Neutrophils # Man PT INR POC ABG pH POC ABG pCO2 POC ABG pO2 Sodium Potassium 2.6 L* D Chloride Carbon Dioxide BUN 29 H Creatinine 0.5 L Glucose 106 H POC Glucose 155 H Lactic Acid Calcium 7.3 L Magnesium Total Bilirubin AST ALT Alkaline Phosphatase Ammonia Troponin T C-Reactive Protein Total Protein Albumin Prealbumin TSH Crossmatch 09/13/16 09/13/16 09/13/16 05:53 11:43 15:07 WBC RBC Hgb Hct MCV MCH MCHC RDW Plt Count [place] % (Auto) [place] # Seg Neutrophils % Seg Neuts % (Manual) Nucleated RBC % Seg Neutrophils # Seg Neutrophils # Man PT INR POC ABG pH POC ABG pCO2 POC ABG pO2 Sodium Potassium 2.8 L* Chloride Carbon Dioxide BUN Creatinine Glucose POC Glucose 119 H 129 H Lactic Acid Calcium Magnesium Total Bilirubin AST ALT Alkaline Phosphatase Ammonia Troponin T C-Reactive Protein Total Protein Albumin Prealbumin TSH Crossmatch 09/13/16 09/13/16 09/14/16 17:39 23:30 05:34 WBC RBC Hgb Hct MCV MCH MCHC RDW Plt Count [place] % (Auto) [place] # Seg Neutrophils % Seg Neuts % (Manual) Nucleated RBC % Seg Neutrophils # Seg Neutrophils # Man PT INR POC ABG pH POC ABG pCO2 POC ABG pO2 Sodium Potassium Chloride Carbon Dioxide BUN Creatinine Glucose POC Glucose 144 H 196 H 175 H Lactic Acid Calcium Magnesium Total Bilirubin AST ALT Alkaline Phosphatase Ammonia Troponin T C-Reactive Protein Total Protein Albumin Prealbumin TSH Crossmatch 09/14/16 09/14/16 09/14/16 06:24 06:24 12:41 WBC RBC 2.82 L Hgb 8.4 L Hct 25.7 L MCV MCH MCHC RDW 18.0 H Plt Count [place] % (Auto) [place] # Seg Neutrophils % Seg Neuts % (Manual) Nucleated RBC % Seg Neutrophils # Seg Neutrophils # Man PT INR POC ABG pH POC ABG pCO2 POC ABG pO2 Sodium Potassium 2.9 L* Chloride 107.3 H Carbon Dioxide BUN 26 H Creatinine 0.4 L Glucose 169 H POC Glucose 184 H Lactic Acid Calcium 7.5 L Magnesium Total Bilirubin AST ALT Alkaline Phosphatase Ammonia Troponin T C-Reactive Protein Total Protein Albumin Prealbumin TSH Crossmatch 09/14/16 09/14/16 09/14/16 14:50 17:57 23:34 WBC RBC Hgb Hct MCV MCH MCHC RDW Plt Count [place] % (Auto) [place] # Seg Neutrophils % Seg Neuts % (Manual) Nucleated RBC % Seg Neutrophils # Seg Neutrophils # Man PT INR POC ABG pH POC ABG pCO2 POC ABG pO2 Sodium Potassium 3.3 L Chloride Carbon Dioxide BUN Creatinine Glucose POC Glucose 191 H 178 H Lactic Acid Calcium Magnesium Total Bilirubin AST ALT Alkaline Phosphatase Ammonia Troponin T C-Reactive Protein Total Protein Albumin Prealbumin TSH Crossmatch 09/15/16 09/15/16 09/15/16 05:02 07:57 07:57 WBC RBC 3.04 L Hgb 9.2 L Hct 28.2 L MCV MCH MCHC RDW 18.8 H Plt Count [place] % (Auto) [place] # Seg Neutrophils % Seg Neuts % (Manual) Nucleated RBC % Seg Neutrophils # Seg Neutrophils # Man PT INR POC ABG pH POC ABG pCO2 POC ABG pO2 Sodium Potassium Chloride 107.2 H Carbon Dioxide BUN 26 H Creatinine 0.4 L Glucose 160 H POC Glucose 192 H Lactic Acid Calcium 7.7 L Magnesium Total Bilirubin AST ALT Alkaline Phosphatase Ammonia Troponin T C-Reactive Protein Total Protein Albumin Prealbumin TSH Crossmatch 09/15/16 09/15/16 09/15/16 11:23 17:51 23:45 WBC RBC Hgb Hct MCV MCH MCHC RDW Plt Count [place] % (Auto) [place] # Seg Neutrophils % Seg Neuts % (Manual) Nucleated RBC % Seg Neutrophils # Seg Neutrophils # Man PT INR POC ABG pH POC ABG pCO2 POC ABG pO2 Sodium Potassium Chloride Carbon Dioxide BUN Creatinine Glucose POC Glucose 232 H 240 H 251 H Lactic Acid Calcium Magnesium Total Bilirubin AST ALT Alkaline Phosphatase Ammonia Troponin T C-Reactive Protein Total Protein Albumin Prealbumin TSH Crossmatch 09/16/16 09/16/16 09/16/16 04:55 04:55 05:38 WBC RBC 2.84 L Hgb 8.6 L Hct 26.2 L MCV MCH MCHC RDW 18.8 H Plt Count [place] % (Auto) [place] # Seg Neutrophils % Seg Neuts % (Manual) Nucleated RBC % Seg Neutrophils # Seg Neutrophils # Man PT INR POC ABG pH POC ABG pCO2 POC ABG pO2 Sodium Potassium 3.1 L Chloride 107.6 H Carbon Dioxide BUN 25 H Creatinine 0.3 L Glucose 134 H POC Glucose 157 H Lactic Acid Calcium 7.6 L Magnesium Total Bilirubin AST ALT Alkaline Phosphatase Ammonia Troponin T C-Reactive Protein Total Protein Albumin Prealbumin TSH Crossmatch 09/16/16 09/16/16 09/16/16 11:53 17:56 23:54 WBC RBC Hgb Hct MCV MCH MCHC RDW Plt Count [place] % (Auto) [place] # Seg Neutrophils % Seg Neuts % (Manual) Nucleated RBC % Seg Neutrophils # Seg Neutrophils # Man PT INR POC ABG pH POC ABG pCO2 POC ABG pO2 Sodium Potassium Chloride Carbon Dioxide BUN Creatinine Glucose POC Glucose 137 H 138 H 179 H Lactic Acid Calcium Magnesium Total Bilirubin AST ALT Alkaline Phosphatase Ammonia Troponin T C-Reactive Protein Total Protein Albumin Prealbumin TSH Crossmatch 09/17/16 09/17/16 09/17/16 05:00 05:00 05:28 WBC RBC 2.77 L Hgb 8.2 L Hct 25.9 L MCV MCH MCHC RDW 19.1 H Plt Count [place] % (Auto) [place] # Seg Neutrophils % Seg Neuts % (Manual) Nucleated RBC % Seg Neutrophils # Seg Neutrophils # Man PT INR POC ABG pH POC ABG pCO2 POC ABG pO2 Sodium Potassium 3.5 L Chloride 108.4 H Carbon Dioxide BUN 29 H Creatinine 0.3 L Glucose 117 H POC Glucose 142 H Lactic Acid Calcium 7.4 L Magnesium Total Bilirubin AST ALT Alkaline Phosphatase Ammonia Troponin T C-Reactive Protein Total Protein Albumin Prealbumin TSH Crossmatch 09/17/16 09/17/16 09/18/16 18:07 23:31 06:29 WBC RBC Hgb Hct MCV MCH MCHC RDW Plt Count [place] % (Auto) [place] # Seg Neutrophils % Seg Neuts % (Manual) Nucleated RBC % Seg Neutrophils # Seg Neutrophils # Man PT INR POC ABG pH POC ABG pCO2 POC ABG pO2 Sodium Potassium Chloride Carbon Dioxide BUN Creatinine Glucose POC Glucose 173 H 240 H 282 H Lactic Acid Calcium Magnesium Total Bilirubin AST ALT Alkaline Phosphatase Ammonia Troponin T C-Reactive Protein Total Protein Albumin Prealbumin TSH Crossmatch 09/18/16 09/18/16 09/18/16 06:30 12:21 17:55 WBC RBC Hgb Hct MCV MCH MCHC RDW Plt Count [place] % (Auto) [place] # Seg Neutrophils % Seg Neuts % (Manual) Nucleated RBC % Seg Neutrophils # Seg Neutrophils # Man PT INR POC ABG pH POC ABG pCO2 POC ABG pO2 Sodium 148 H Potassium Chloride 110.7 H Carbon Dioxide BUN 30 H Creatinine 0.4 L Glucose 249 H POC Glucose 248 H 255 H Lactic Acid Calcium 7.4 L Magnesium 1.60 L Total Bilirubin AST ALT Alkaline Phosphatase Ammonia Troponin T C-Reactive Protein Total Protein Albumin Prealbumin TSH Crossmatch 09/19/16 09/19/16 09/19/16 00:09 04:45 05:11 WBC RBC Hgb Hct MCV MCH MCHC RDW Plt Count [place] % (Auto) [place] # Seg Neutrophils % Seg Neuts % (Manual) Nucleated RBC % Seg Neutrophils # Seg Neutrophils # Man PT INR POC ABG pH POC ABG pCO2 POC ABG pO2 Sodium 146 H Potassium Chloride 110.8 H Carbon Dioxide BUN 34 H Creatinine 0.4 L Glucose 278 H POC Glucose 324 H 278 H Lactic Acid Calcium 7.3 L Magnesium Total Bilirubin AST ALT Alkaline Phosphatase Ammonia Troponin T C-Reactive Protein Total Protein Albumin Prealbumin TSH Crossmatch 09/19/16 09/19/16 09/19/16 11:12 12:09 17:10 WBC RBC Hgb Hct MCV MCH MCHC RDW Plt Count [place] % (Auto) [place] # Seg Neutrophils % Seg Neuts % (Manual) Nucleated RBC % Seg Neutrophils # Seg Neutrophils # Man PT INR POC ABG pH POC ABG pCO2 POC ABG pO2 Sodium Potassium Chloride Carbon Dioxide BUN Creatinine Glucose POC Glucose 306 H 225 H 329 H Lactic Acid Calcium Magnesium Total Bilirubin AST ALT Alkaline Phosphatase Ammonia Troponin T C-Reactive Protein Total Protein Albumin Prealbumin TSH Crossmatch 09/19/16 09/20/16 09/20/16 23:34 04:52 05:00 WBC RBC Hgb Hct MCV MCH MCHC RDW Plt Count [place] % (Auto) [place] # Seg Neutrophils % Seg Neuts % (Manual) Nucleated RBC % Seg Neutrophils # Seg Neutrophils # Man PT INR POC ABG pH POC ABG pCO2 POC ABG pO2 Sodium Potassium Chloride 108.6 H Carbon Dioxide BUN 35 H Creatinine 0.4 L Glucose 370 H POC Glucose 376 H 374 H Lactic Acid Calcium 7.3 L Magnesium Total Bilirubin AST ALT Alkaline Phosphatase Ammonia Troponin T C-Reactive Protein Total Protein Albumin Prealbumin TSH Crossmatch 09/20/16 09/20/16 09/20/16 11:18 17:39 23:49 WBC RBC Hgb Hct MCV MCH MCHC RDW Plt Count [place] % (Auto) [place] # Seg Neutrophils % Seg Neuts % (Manual) Nucleated RBC % Seg Neutrophils # Seg Neutrophils # Man PT INR POC ABG pH POC ABG pCO2 POC ABG pO2 Sodium Potassium Chloride Carbon Dioxide BUN Creatinine Glucose POC Glucose 342 H 416 H 440 H Lactic Acid Calcium Magnesium Total Bilirubin AST ALT Alkaline Phosphatase Ammonia Troponin T C-Reactive Protein Total Protein Albumin Prealbumin TSH Crossmatch 09/21/16 09/21/16 09/21/16 04:58 05:15 05:15 WBC RBC 1.48 L Hgb 4.6 L* Hct 14.9 L* MCV 100 H MCH MCHC RDW 25.4 H Plt Count [place] % (Auto) [place] # Seg Neutrophils % Seg Neuts % (Manual) Nucleated RBC % Seg Neutrophils # Seg Neutrophils # Man PT INR POC ABG pH POC ABG pCO2 POC ABG pO2 Sodium Potassium Chloride 107.5 H Carbon Dioxide 20 L BUN 45 H Creatinine 0.6 L Glucose 490 H POC Glucose > 500 H Lactic Acid Calcium 7.0 L Magnesium Total Bilirubin AST ALT Alkaline Phosphatase Ammonia Troponin T C-Reactive Protein Total Protein Albumin Prealbumin TSH Crossmatch 09/21/16 09/21/16 09/21/16 08:20 09:17 12:09 WBC RBC Hgb Hct MCV MCH MCHC RDW Plt Count [place] % (Auto) [place] # Seg Neutrophils % Seg Neuts % (Manual) Nucleated RBC % Seg Neutrophils # Seg Neutrophils # Man PT INR POC ABG pH 7.464 H POC ABG pCO2 29.3 L POC ABG pO2 198 H Sodium Potassium Chloride Carbon Dioxide BUN Creatinine Glucose POC Glucose 248 H Lactic Acid Calcium Magnesium Total Bilirubin AST ALT Alkaline Phosphatase Ammonia Troponin T C-Reactive Protein Total Protein Albumin Prealbumin TSH Crossmatch See Detail 09/21/16 09/21/16 09/21/16 15:21 17:36 18:49 WBC RBC Hgb Hct MCV MCH MCHC RDW Plt Count [place] % (Auto) [place] # Seg Neutrophils % Seg Neuts % (Manual) Nucleated RBC % Seg Neutrophils # Seg Neutrophils # Man PT INR POC ABG pH POC ABG pCO2 POC ABG pO2 Sodium Potassium Chloride Carbon Dioxide BUN Creatinine Glucose POC Glucose 403 H 437 H 482 H Lactic Acid Calcium Magnesium Total Bilirubin AST ALT Alkaline Phosphatase Ammonia Troponin T C-Reactive Protein Total Protein Albumin Prealbumin TSH Crossmatch 09/21/16 09/22/16 09/22/16 23:29 00:00 01:29 WBC 14.8 H RBC 2.94 L Hgb 9.1 L D Hct 27.5 L D MCV MCH MCHC RDW 16.7 H Plt Count [place] % (Auto) [place] # Seg Neutrophils % Seg Neuts % (Manual) Nucleated RBC % Seg Neutrophils # Seg Neutrophils # Man PT INR POC ABG pH POC ABG pCO2 POC ABG pO2 Sodium Potassium Chloride Carbon Dioxide BUN Creatinine Glucose POC Glucose 311 H 288 H Lactic Acid Calcium Magnesium Total Bilirubin AST ALT Alkaline Phosphatase Ammonia Troponin T C-Reactive Protein Total Protein Albumin Prealbumin TSH Crossmatch 09/22/16 09/22/16 09/22/16 02:29 03:12 03:26 WBC RBC Hgb Hct MCV MCH MCHC RDW Plt Count [place] % (Auto) [place] # Seg Neutrophils % Seg Neuts % (Manual) Nucleated RBC % Seg Neutrophils # Seg Neutrophils # Man PT INR POC ABG pH 7.460 H POC ABG pCO2 29.9 L POC ABG pO2 112 H Sodium Potassium Chloride Carbon Dioxide BUN Creatinine Glucose POC Glucose 261 H 239 H Lactic Acid Calcium Magnesium Total Bilirubin AST ALT Alkaline Phosphatase Ammonia Troponin T C-Reactive Protein Total Protein Albumin Prealbumin TSH Crossmatch 09/22/16 09/22/16 09/22/16 05:35 06:40 06:40 WBC 13.5 H RBC 3.18 L Hgb 9.5 L Hct 28.8 L MCV MCH MCHC RDW 16.2 H Plt Count [place] % (Auto) [place] # Seg Neutrophils % Seg Neuts % (Manual) Nucleated RBC % Seg Neutrophils # Seg Neutrophils # Man PT INR POC ABG pH POC ABG pCO2 POC ABG pO2 Sodium 147 H Potassium 3.2 L D Chloride 112.3 H Carbon Dioxide BUN 49 H Creatinine 0.6 L Glucose 102 H POC Glucose 181 H Lactic Acid Calcium 7.5 L Magnesium Total Bilirubin AST ALT Alkaline Phosphatase Ammonia Troponin T C-Reactive Protein Total Protein Albumin Prealbumin TSH Crossmatch 09/22/16 09/22/16 09/22/16 07:16 18:03 20:05 WBC RBC Hgb Hct MCV MCH MCHC RDW Plt Count [place] % (Auto) [place] # Seg Neutrophils % Seg Neuts % (Manual) Nucleated RBC % Seg Neutrophils # Seg Neutrophils # Man PT INR POC ABG pH POC ABG pCO2 POC ABG pO2 Sodium Potassium Chloride Carbon Dioxide BUN Creatinine Glucose POC Glucose 152 H 115 H 107 H Lactic Acid Calcium Magnesium Total Bilirubin AST ALT Alkaline Phosphatase Ammonia Troponin T C-Reactive Protein Total Protein Albumin Prealbumin TSH Crossmatch 09/22/16 09/22/16 09/23/16 21:00 23:55 02:02 WBC 13.8 H RBC 3.04 L Hgb 9.2 L Hct 28.0 L MCV MCH MCHC RDW 16.2 H Plt Count [place] % (Auto) [place] # Seg Neutrophils % Seg Neuts % (Manual) Nucleated RBC % Seg Neutrophils # Seg Neutrophils # Man PT INR POC ABG pH POC ABG pCO2 POC ABG pO2 Sodium Potassium Chloride Carbon Dioxide BUN Creatinine Glucose POC Glucose 133 H 110 H Lactic Acid Calcium Magnesium Total Bilirubin AST ALT Alkaline Phosphatase Ammonia Troponin T C-Reactive Protein Total Protein Albumin Prealbumin TSH Crossmatch 09/23/16 09/23/16 09/23/16 04:45 04:45 05:36 WBC 13.6 H RBC 2.86 L Hgb 8.6 L Hct 26.4 L MCV MCH MCHC RDW 17.1 H Plt Count [place] % (Auto) [place] # Seg Neutrophils % Seg Neuts % (Manual) Nucleated RBC % Seg Neutrophils # Seg Neutrophils # Man PT INR POC ABG pH POC ABG pCO2 POC ABG pO2 Sodium Potassium Chloride 109.2 H Carbon Dioxide 21 L BUN 43 H Creatinine 0.5 L Glucose 152 H POC Glucose 133 H Lactic Acid Calcium 7.7 L Magnesium Total Bilirubin AST ALT Alkaline Phosphatase Ammonia Troponin T C-Reactive Protein Total Protein Albumin Prealbumin TSH Crossmatch 09/23/16 09/23/16 09/23/16 07:42 11:55 13:26 WBC RBC Hgb Hct MCV MCH MCHC RDW Plt Count [place] % (Auto) [place] # Seg Neutrophils % Seg Neuts % (Manual) Nucleated RBC % Seg Neutrophils # Seg Neutrophils # Man PT INR POC ABG pH POC ABG pCO2 POC ABG pO2 Sodium Potassium Chloride Carbon Dioxide BUN Creatinine Glucose POC Glucose 175 H 170 H 195 H Lactic Acid Calcium Magnesium Total Bilirubin AST ALT Alkaline Phosphatase Ammonia Troponin T C-Reactive Protein Total Protein Albumin Prealbumin TSH Crossmatch 09/23/16 09/23/16 09/24/16 17:37 21:54 02:56 WBC RBC Hgb Hct MCV MCH MCHC RDW Plt Count [place] % (Auto) [place] # Seg Neutrophils % Seg Neuts % (Manual) Nucleated RBC % Seg Neutrophils # Seg Neutrophils # Man PT INR POC ABG pH POC ABG pCO2 POC ABG pO2 Sodium Potassium Chloride Carbon Dioxide BUN Creatinine Glucose POC Glucose 182 H 184 H 187 H Lactic Acid Calcium Magnesium Total Bilirubin AST ALT Alkaline Phosphatase Ammonia Troponin T C-Reactive Protein Total Protein Albumin Prealbumin TSH Crossmatch 09/24/16 09/24/16 09/24/16 05:00 05:00 05:22 WBC RBC 2.82 L Hgb 8.8 L Hct 27.0 L MCV MCH MCHC RDW 17.2 H Plt Count [place] % (Auto) [place] # Seg Neutrophils % Seg Neuts % (Manual) Nucleated RBC % Seg Neutrophils # Seg Neutrophils # Man PT INR POC ABG pH POC ABG pCO2 POC ABG pO2 Sodium 148 H Potassium Chloride 115.0 H Carbon Dioxide 21 L BUN 38 H Creatinine 0.6 L Glucose 163 H POC Glucose 194 H Lactic Acid Calcium 7.9 L Magnesium Total Bilirubin AST ALT Alkaline Phosphatase Ammonia Troponin T C-Reactive Protein Total Protein Albumin Prealbumin TSH Crossmatch 09/24/16 09/24/16 09/24/16 11:02 13:55 17:37 WBC RBC Hgb Hct MCV MCH MCHC RDW Plt Count [place] % (Auto) [place] # Seg Neutrophils % Seg Neuts % (Manual) Nucleated RBC % Seg Neutrophils # Seg Neutrophils # Man PT INR POC ABG pH POC ABG pCO2 POC ABG pO2 Sodium Potassium Chloride Carbon Dioxide BUN Creatinine Glucose POC Glucose 210 H 182 H 169 H Lactic Acid Calcium Magnesium Total Bilirubin AST ALT Alkaline Phosphatase Ammonia Troponin T C-Reactive Protein Total Protein Albumin Prealbumin TSH Crossmatch 09/25/16 09/25/16 09/25/16 02:15 05:14 09:39 WBC RBC Hgb Hct MCV MCH MCHC RDW Plt Count [place] % (Auto) [place] # Seg Neutrophils % Seg Neuts % (Manual) Nucleated RBC % Seg Neutrophils # Seg Neutrophils # Man PT INR POC ABG pH POC ABG pCO2 POC ABG pO2 Sodium Potassium Chloride Carbon Dioxide BUN Creatinine Glucose POC Glucose 139 H 151 H 184 H Lactic Acid Calcium Magnesium Total Bilirubin AST ALT Alkaline Phosphatase Ammonia Troponin T C-Reactive Protein Total Protein Albumin Prealbumin TSH Crossmatch 09/25/16 09/25/16 09/25/16 09:48 09:48 13:47 WBC RBC 2.76 L Hgb 8.7 L Hct 26.2 L MCV MCH MCHC RDW 17.3 H Plt Count [place] % (Auto) [place] # Seg Neutrophils % Seg Neuts % (Manual) Nucleated RBC % Seg Neutrophils # Seg Neutrophils # Man PT INR POC ABG pH POC ABG pCO2 POC ABG pO2 Sodium 150 H Potassium Chloride 115.6 H Carbon Dioxide BUN 34 H Creatinine 0.4 L Glucose 168 H POC Glucose 167 H Lactic Acid Calcium 7.9 L Magnesium Total Bilirubin AST ALT Alkaline Phosphatase Ammonia Troponin T C-Reactive Protein Total Protein Albumin Prealbumin TSH Crossmatch 09/25/16 09/25/16 09/26/16 17:57 21:44 00:05 WBC RBC Hgb Hct MCV MCH MCHC RDW Plt Count [place] % (Auto) [place] # Seg Neutrophils % Seg Neuts % (Manual) Nucleated RBC % Seg Neutrophils # Seg Neutrophils # Man PT INR POC ABG pH POC ABG pCO2 POC ABG pO2 Sodium Potassium Chloride Carbon Dioxide BUN Creatinine Glucose POC Glucose 206 H 188 H 188 H Lactic Acid Calcium Magnesium Total Bilirubin AST ALT Alkaline Phosphatase Ammonia Troponin T C-Reactive Protein Total Protein Albumin Prealbumin TSH Crossmatch 09/26/16 09/26/16 09/26/16 01:29 03:46 03:46 WBC RBC 2.76 L Hgb 8.6 L Hct 26.2 L MCV MCH MCHC RDW 18.2 H Plt Count [place] % (Auto) [place] # Seg Neutrophils % Seg Neuts % (Manual) Nucleated RBC % Seg Neutrophils # Seg Neutrophils # Man PT INR POC ABG pH POC ABG pCO2 POC ABG pO2 Sodium 147 H Potassium Chloride 114.1 H Carbon Dioxide BUN 28 H Creatinine 0.4 L Glucose 172 H POC Glucose 198 H Lactic Acid Calcium 7.6 L Magnesium Total Bilirubin AST ALT Alkaline Phosphatase Ammonia Troponin T C-Reactive Protein Total Protein Albumin Prealbumin TSH Crossmatch 09/26/16 09/26/16 09/26/16 08:08 12:39 16:56 WBC RBC Hgb Hct MCV MCH MCHC RDW Plt Count [place] % (Auto) [place] # Seg Neutrophils % Seg Neuts % (Manual) Nucleated RBC % Seg Neutrophils # Seg Neutrophils # Man PT INR POC ABG pH POC ABG pCO2 POC ABG pO2 Sodium Potassium Chloride Carbon Dioxide BUN Creatinine Glucose POC Glucose 161 H 176 H 128 H Lactic Acid Calcium Magnesium Total Bilirubin AST ALT Alkaline Phosphatase Ammonia Troponin T C-Reactive Protein Total Protein Albumin Prealbumin TSH Crossmatch 09/26/16 09/27/16 09/27/16 21:33 06:31 07:23 WBC RBC Hgb Hct MCV MCH MCHC RDW Plt Count [place] % (Auto) [place] # Seg Neutrophils % Seg Neuts % (Manual) Nucleated RBC % Seg Neutrophils # Seg Neutrophils # Man PT INR POC ABG pH POC ABG pCO2 POC ABG pO2 Sodium Potassium Chloride Carbon Dioxide BUN Creatinine Glucose POC Glucose 120 H 209 H 173 H Lactic Acid Calcium Magnesium Total Bilirubin AST ALT Alkaline Phosphatase Ammonia Troponin T C-Reactive Protein Total Protein Albumin Prealbumin TSH Crossmatch 09/27/16 09/27/16 09/27/16 11:31 17:22 20:41 WBC RBC Hgb Hct MCV MCH MCHC RDW Plt Count [place] % (Auto) [place] # Seg Neutrophils % Seg Neuts % (Manual) Nucleated RBC % Seg Neutrophils # Seg Neutrophils # Man PT INR POC ABG pH POC ABG pCO2 POC ABG pO2 Sodium Potassium Chloride Carbon Dioxide BUN Creatinine Glucose POC Glucose 185 H 167 H 185 H Lactic Acid Calcium Magnesium Total Bilirubin AST ALT Alkaline Phosphatase Ammonia Troponin T C-Reactive Protein Total Protein Albumin Prealbumin TSH Crossmatch 09/28/16 09/28/16 09/28/16 00:30 04:00 04:00 WBC RBC 3.00 L Hgb 9.4 L Hct 28.7 L MCV MCH MCHC RDW 19.1 H Plt Count [place] % (Auto) [place] # Seg Neutrophils % Seg Neuts % (Manual) Nucleated RBC % Seg Neutrophils # Seg Neutrophils # Man PT INR POC ABG pH POC ABG pCO2 POC ABG pO2 Sodium Potassium Chloride 110.5 H Carbon Dioxide BUN 24 H Creatinine 0.3 L Glucose 214 H POC Glucose 159 H Lactic Acid Calcium 7.9 L Magnesium Total Bilirubin AST ALT Alkaline Phosphatase Ammonia Troponin T C-Reactive Protein Total Protein Albumin Prealbumin TSH Crossmatch 09/28/16 09/28/16 09/28/16 04:12 09:58 15:15 WBC RBC Hgb Hct MCV MCH MCHC RDW Plt Count [place] % (Auto) [place] # Seg Neutrophils % Seg Neuts % (Manual) Nucleated RBC % Seg Neutrophils # Seg Neutrophils # Man PT INR POC ABG pH POC ABG pCO2 POC ABG pO2 Sodium Potassium Chloride Carbon Dioxide BUN Creatinine Glucose POC Glucose 209 H 191 H 162 H Lactic Acid Calcium Magnesium Total Bilirubin AST ALT Alkaline Phosphatase Ammonia Troponin T C-Reactive Protein Total Protein Albumin Prealbumin TSH Crossmatch 09/28/16 09/28/16 09/29/16 17:58 21:38 02:38 WBC RBC Hgb Hct MCV MCH MCHC RDW Plt Count [place] % (Auto) [place] # Seg Neutrophils % Seg Neuts % (Manual) Nucleated RBC % Seg Neutrophils # Seg Neutrophils # Man PT INR POC ABG pH POC ABG pCO2 POC ABG pO2 Sodium Potassium Chloride Carbon Dioxide BUN Creatinine Glucose POC Glucose 174 H 162 H 180 H Lactic Acid Calcium Magnesium Total Bilirubin AST ALT Alkaline Phosphatase Ammonia Troponin T C-Reactive Protein Total Protein Albumin Prealbumin TSH Crossmatch 09/29/16 09/29/16 09/29/16 05:16 10:24 14:37 WBC RBC Hgb Hct MCV MCH MCHC RDW Plt Count [place] % (Auto) [place] # Seg Neutrophils % Seg Neuts % (Manual) Nucleated RBC % Seg Neutrophils # Seg Neutrophils # Man PT INR POC ABG pH POC ABG pCO2 POC ABG pO2 Sodium Potassium Chloride Carbon Dioxide BUN Creatinine Glucose POC Glucose 152 H 182 H 190 H Lactic Acid Calcium Magnesium Total Bilirubin AST ALT Alkaline Phosphatase Ammonia Troponin T C-Reactive Protein Total Protein Albumin Prealbumin TSH Crossmatch 09/29/16 09/29/16 09/30/16 17:30 21:39 01:45 WBC RBC Hgb Hct MCV MCH MCHC RDW Plt Count [place] % (Auto) [place] # Seg Neutrophils % Seg Neuts % (Manual) Nucleated RBC % Seg Neutrophils # Seg Neutrophils # Man PT INR POC ABG pH POC ABG pCO2 POC ABG pO2 Sodium Potassium Chloride Carbon Dioxide BUN Creatinine Glucose POC Glucose 192 H 219 H 210 H Lactic Acid Calcium Magnesium Total Bilirubin AST ALT Alkaline Phosphatase Ammonia Troponin T C-Reactive Protein Total Protein Albumin Prealbumin TSH Crossmatch 09/30/16 09/30/16 09/30/16 05:02 07:42 08:30 WBC RBC Hgb Hct MCV MCH MCHC RDW Plt Count [place] % (Auto) [place] # Seg Neutrophils % Seg Neuts % (Manual) Nucleated RBC % Seg Neutrophils # Seg Neutrophils # Man PT INR POC ABG pH POC ABG pCO2 POC ABG pO2 Sodium Potassium 3.5 L Chloride 108.5 H Carbon Dioxide BUN 22 H Creatinine 0.4 L Glucose 223 H POC Glucose 148 H 227 H Lactic Acid Calcium 7.8 L Magnesium 1.50 L Total Bilirubin AST ALT Alkaline Phosphatase Ammonia Troponin T C-Reactive Protein Total Protein Albumin Prealbumin TSH Crossmatch 09/30/16 09/30/16 09/30/16 11:48 15:21 18:06 WBC RBC Hgb Hct MCV MCH MCHC RDW Plt Count [place] % (Auto) [place] # Seg Neutrophils % Seg Neuts % (Manual) Nucleated RBC % Seg Neutrophils # Seg Neutrophils # Man PT INR POC ABG pH POC ABG pCO2 POC ABG pO2 Sodium Potassium Chloride Carbon Dioxide BUN Creatinine Glucose POC Glucose 286 H 281 H 194 H Lactic Acid Calcium Magnesium Total Bilirubin AST ALT Alkaline Phosphatase Ammonia Troponin T C-Reactive Protein Total Protein Albumin Prealbumin TSH Crossmatch 09/30/16 10/01/16 10/01/16 21:23 03:27 05:36 WBC RBC Hgb Hct MCV MCH MCHC RDW Plt Count [place] % (Auto) [place] # Seg Neutrophils % Seg Neuts % (Manual) Nucleated RBC % Seg Neutrophils # Seg Neutrophils # Man PT INR POC ABG pH POC ABG pCO2 POC ABG pO2 Sodium Potassium Chloride Carbon Dioxide BUN Creatinine Glucose POC Glucose 117 H 161 H 160 H Lactic Acid Calcium Magnesium Total Bilirubin AST ALT Alkaline Phosphatase Ammonia Troponin T C-Reactive Protein Total Protein Albumin Prealbumin TSH Crossmatch 10/01/16 10/01/16 10/01/16 08:35 08:35 11:06 WBC 11.7 H RBC 2.75 L Hgb 8.5 L Hct 26.5 L MCV MCH MCHC RDW 21.0 H Plt Count [place] % (Auto) 11.7 H [place] # 1.4 H Seg Neutrophils % Seg Neuts % (Manual) Nucleated RBC % Seg Neutrophils # 7.8 H Seg Neutrophils # Man PT INR POC ABG pH POC ABG pCO2 POC ABG pO2 Sodium Potassium Chloride 108.0 H Carbon Dioxide BUN 20 H Creatinine 0.4 L Glucose 137 H POC Glucose 160 H Lactic Acid Calcium 7.9 L Magnesium Total Bilirubin AST ALT Alkaline Phosphatase Ammonia Troponin T C-Reactive Protein Total Protein Albumin Prealbumin TSH Crossmatch 10/01/16 10/01/16 10/01/16 11:50 13:47 17:40 WBC RBC Hgb Hct MCV MCH MCHC RDW Plt Count [place] % (Auto) [place] # Seg Neutrophils % Seg Neuts % (Manual) Nucleated RBC % Seg Neutrophils # Seg Neutrophils # Man PT INR POC ABG pH POC ABG pCO2 POC ABG pO2 Sodium Potassium Chloride Carbon Dioxide BUN Creatinine Glucose POC Glucose 142 H 151 H 163 H Lactic Acid Calcium Magnesium Total Bilirubin AST ALT Alkaline Phosphatase Ammonia Troponin T C-Reactive Protein Total Protein Albumin Prealbumin TSH Crossmatch 10/01/16 10/02/16 10/02/16 22:02 02:03 06:21 WBC RBC Hgb Hct MCV MCH MCHC RDW Plt Count [place] % (Auto) [place] # Seg Neutrophils % Seg Neuts % (Manual) Nucleated RBC % Seg Neutrophils # Seg Neutrophils # Man PT INR POC ABG pH POC ABG pCO2 POC ABG pO2 Sodium Potassium Chloride Carbon Dioxide BUN Creatinine Glucose POC Glucose 179 H 144 H 153 H Lactic Acid Calcium Magnesium Total Bilirubin AST ALT Alkaline Phosphatase Ammonia Troponin T C-Reactive Protein Total Protein Albumin Prealbumin TSH Crossmatch 10/02/16 10/02/16 09:34 10:16 WBC RBC Hgb Hct MCV MCH MCHC RDW Plt Count [place] % (Auto) [place] # Seg Neutrophils % Seg Neuts % (Manual) Nucleated RBC % Seg Neutrophils # Seg Neutrophils # Man PT INR POC ABG pH POC ABG pCO2 POC ABG pO2 Sodium Potassium Chloride Carbon Dioxide BUN Creatinine Glucose POC Glucose 206 H 170 H Lactic Acid Calcium Magnesium Total Bilirubin AST ALT Alkaline Phosphatase Ammonia Troponin T C-Reactive Protein Total Protein Albumin Prealbumin TSH Crossmatch Allied health notes reviewed: RT
--- NOTE | 2016-10-02 14:23 | Progress Note ---
Assessment and Plan s/p trach/PEG (POD 1) 1. The patient is s/p trach/PEG (POD 1). The tube feeds have been started. We will sign off at this point. Subjective Date of service: 10/02/16 Narrative: No acute events. The patient is s/p trach/PEG (POD 1) Objective Vital Signs - 12hr 10/02/16 10/02/16 10/02/16 02:32 02:42 03:01 Temperature Pulse Rate 126 H Pulse Rate [ 91 H 88 Anterior Bilateral Throughout] Pulse Rate [ From Monitor] Respiratory 18 Rate Respiratory 32 H 30 H Rate [Anterior Bilateral Throughout] Blood Pressure 132/62 O2 Sat by Pulse 95 Oximetry O2 Sat by Pulse Oximetry [ Assessment] 10/02/16 10/02/16 10/02/16 04:00 04:39 05:00 Temperature 98.5 F Pulse Rate 96 H 100 H 100 H Pulse Rate [ Anterior Bilateral Throughout] Pulse Rate [ 98 H From Monitor] Respiratory 28 H 28 H Rate Respiratory Rate [Anterior Bilateral Throughout] Blood Pressure 132/42 115/45 122/48 O2 Sat by Pulse 95 95 95 Oximetry O2 Sat by Pulse Oximetry [ Assessment] 10/02/16 10/02/16 10/02/16 06:00 07:00 07:50 Temperature 98.6 F Pulse Rate 100 H 103 H Pulse Rate [ Anterior Bilateral Throughout] Pulse Rate [ From Monitor] Respiratory 17 15 Rate Respiratory Rate [Anterior Bilateral Throughout] Blood Pressure 153/56 119/64 O2 Sat by Pulse 95 94 Oximetry O2 Sat by Pulse Oximetry [ Assessment] 10/02/16 10/02/16 10/02/16 08:00 09:00 09:08 Temperature Pulse Rate 95 H 100 H 100 H Pulse Rate [ 100 H Anterior Bilateral Throughout] Pulse Rate [ From Monitor] Respiratory 27 H 29 H Rate Respiratory 25 H Rate [Anterior Bilateral Throughout] Blood Pressure 103/49 90/57 90/57 O2 Sat by Pulse 97 98 97 Oximetry O2 Sat by Pulse Oximetry [ Assessment] 10/02/16 10/02/16 10/02/16 09:25 09:38 10:00 Temperature Pulse Rate 96 H Pulse Rate [ 103 H Anterior Bilateral Throughout] Pulse Rate [ From Monitor] Respiratory 29 H Rate Respiratory 36 H Rate [Anterior Bilateral Throughout] Blood Pressure 115/59 O2 Sat by Pulse 98 Oximetry O2 Sat by Pulse 97 Oximetry [ Assessment] 10/02/16 10/02/16 10/02/16 11:00 12:00 13:00 Temperature 97.6 F Pulse Rate 82 96 H 81 Pulse Rate [ Anterior Bilateral Throughout] Pulse Rate [ From Monitor] Respiratory 25 H 17 25 H Rate Respiratory Rate [Anterior Bilateral Throughout] Blood Pressure 114/63 133/69 129/66 O2 Sat by Pulse 98 99 98 Oximetry O2 Sat by Pulse Oximetry [ Assessment] 10/02/16 14:00 Temperature Pulse Rate 84 Pulse Rate [ Anterior Bilateral Throughout] Pulse Rate [ From Monitor] Respiratory 25 H Rate Respiratory Rate [Anterior Bilateral Throughout] Blood Pressure 135/62 O2 Sat by Pulse 99 Oximetry O2 Sat by Pulse Oximetry [ Assessment] - Neck trachea midline (tracheostomy in place) - Abdomen soft (PEG tube in place) - Labs 10/01/16 08:35 10/01/16 08:35
[2016-10-03] MEDS: NOVOLOG SUB-Q SCH ×5 (02:03→18:28)
[2016-10-03] MEDS: CORDARONE 900 MG in D5W 482 ML IV SCH (05:00)
[2016-10-03] MEDS: DUONEB 0.5 MG-3 MG/3 ML SOLN IH SCH ×4 (05:12→19:20)
[2016-10-03] MEDS: PROAMATINE PO SCH ×3 (06:36→22:07)
--- NOTE | 2016-10-03 09:11 | Progress Note ---
Assessment and Plan - Patient Problems (1) Respiratory failure Current Visit: Yes Status: Acute Qualifiers: Chronicity: C Respiratory failure complication: R Plan to address problem: Currently on mechanical ventilatory support AC-VC at night and pressure support during the day VAP bundle addressed Wean FIO2 for O2 sats>92% HOB>40, aspiration precautions VTE prophylaxis- discontinue enoxaparin in view of anemia and use SCDs Stress ulcer prophylaxis- Pantoprazole Lung protective strategies s/p Tracheostomy Routine trach care by RT Jose catheter in this extremely obese, critically ill patient Continue with enteric feedings, monitor accucheck (2) Shock Current Visit: Yes Status: Acute Plan to address problem: Treated as septic shock secondary to HCAP -resolved (3) Acute on chronic diastolic (congestive) heart failure Current Visit: No Status: Acute Plan to address problem: Documented EF 55% Continue to monitoring renal function and electrolyte profile closely Monitor urine output, electrolyte profile (4) Altered mental status Current Visit: Yes Status: Acute Qualifiers: Altered mental status type: unspecified Coma depth: C Coma timing: C Qualified Code(s): R41.82 - Altered mental status, unspecified Plan to address problem: Continue to monitor (5) Morbid obesity Current Visit: Yes Status: Acute Qualifiers: Obesity type: unspecified obesity type Qualified Code(s): E66.01 - Morbid ( severe) obesity due to excess calories (6) Anemia Current Visit: Yes Status: Acute Qualifiers: Anemia type: unspecified type Iron deficiency anemia type: I Vitamin B12 deficiency anemia type: V Folate deficiency anemia type: F Bone marrow failure anemia type: B Hemolytic anemia type: H Other causes of anemia: O Chronic kidney disease stage: C Qualified Code(s): D64.9 - Anemia, unspecified Plan to address problem: Continue to monitor. CBC prn Supportive transfusions (7) Status epilepticus Current Visit: Yes Status: Acute Plan to address problem: Continue AEDs Unable to get neuro-imaging secondary to her weight Neurology following (8) Discharge planning issues Current Visit: Yes Status: Acute Plan to address problem: Continue current care. AND/DNR LTACH placement when a bed becomes available. s/p PEG/Tracheostomy (9) Atrial fibrillation Current Visit: No Status: Chronic Qualifiers: Atrial fibrillation type: A Plan to address problem: Rate controlled on amiodarone infusion. cardiology following Subjective Date of service: 10/03/16 Principal diagnosis: Acute Hypoxemic Hypercapnic Resp Failure; Severe Sepsis Interval history: Remains orally intubated. Seen and examined. Vitals, labs, medications, chart and imaging reviewed. No acute overnight events Patient is now DNR in the event of cardiopulmonary arrest s/p Tracheostomy and PEG Tolerating spontaneous breathing trials during the day and full support at night. PS10/5, with tidal volumes of 340 AC/VC 25/400/5/25% Objective Vital Signs - 12hr 10/02/16 10/02/16 10/02/16 22:00 23:00 23:24 Temperature Pulse Rate 72 81 82 Pulse Rate [ Anterior Bilateral Throughout] Respiratory 25 H 9 L Rate Respiratory Rate [Anterior Bilateral Throughout] Blood Pressure 107/58 99/54 99/54 O2 Sat by Pulse 98 98 99 Oximetry 10/03/16 10/03/16 10/03/16 00:00 00:21 01:00 Temperature 97.4 F L 98.4 F Pulse Rate 80 80 Pulse Rate [ Anterior Bilateral Throughout] Respiratory 31 H 21 Rate Respiratory Rate [Anterior Bilateral Throughout] Blood Pressure 132/70 127/64 O2 Sat by Pulse 99 100 Oximetry 10/03/16 10/03/16 10/03/16 02:00 02:01 03:00 Temperature Pulse Rate 79 82 Pulse Rate [ 82 Anterior Bilateral Throughout] Respiratory 29 H 27 H Rate Respiratory 32 H Rate [Anterior Bilateral Throughout] Blood Pressure 126/56 131/76 O2 Sat by Pulse 99 99 Oximetry 10/03/16 10/03/16 10/03/16 04:00 05:01 06:00 Temperature 97.6 F Pulse Rate 68 85 84 Pulse Rate [ Anterior Bilateral Throughout] Respiratory 25 H 23 32 H Rate Respiratory Rate [Anterior Bilateral Throughout] Blood Pressure 142/66 141/64 134/56 O2 Sat by Pulse 99 99 99 Oximetry 10/03/16 10/03/16 10/03/16 07:00 08:00 08:21 Temperature Pulse Rate 78 68 82 Pulse Rate [ Anterior Bilateral Throughout] Respiratory 26 H 26 H Rate Respiratory Rate [Anterior Bilateral Throughout] Blood Pressure 121/57 132/58 132/58 O2 Sat by Pulse 99 99 82 L Oximetry 10/03/16 08:28 Temperature Pulse Rate Pulse Rate [ 80 Anterior Bilateral Throughout] Respiratory Rate Respiratory 30 H Rate [Anterior Bilateral Throughout] Blood Pressure O2 Sat by Pulse Oximetry Constitutional: no acute distress, other (encephalopathic) Eyes: non-icteric ENT: oropharynx moist, other (s/p tracheostomy) Neck: supple, no lymphadenopathy Effort: normal, mildly labored Ascultation: Bilateral: clear, diminished breath sounds, rales (bases) Cardiovascular: irregular rhythm Gastrointestinal: normoactive bowel sounds, hypoactive bowel sounds, soft, non- tender, non-distended, other (s/p PEG- clean and dry site. No signs of inflammation) Integumentary: normal, erythema (thighs with induration) Extremities: no cyanosis, pulses normal, no ischemia or petechiae, edema (1++) Neurologic: unable to assess, other (encephalopathic) Psychiatric: other (unable to assess) CBC and BMP: 10/01/16 08:35 10/01/16 08:35 ABG, PT/INR, D-dimer: ABG POC ABG pH 7.460 (7.35-7.45) H 09/22/16 03:26 POC ABG pCO2 29.9 (35-45) L 09/22/16 03:26 POC ABG pO2 112 (80-105) H 09/22/16 03:26 POC ABG HCO3 21.3 09/22/16 03:26 POC ABG Total CO2 22 09/22/16 03:26 POC ABG O2 Sat 99 09/22/16 03:26 PT/INR, D-dimer PT 14.4 Sec. (12.2-14.9) 09/30/16 17:30 INR 1.13 (0.87-1.13) 09/30/16 17:30 Abnormal lab findings: Abnormal Labs 08/29/16 08/30/16 08/30/16 21:59 00:16 05:39 WBC RBC Hgb Hct MCV MCH MCHC RDW Plt Count [place] % (Auto) [place] # Seg Neutrophils % Seg Neuts % (Manual) Nucleated RBC % Seg Neutrophils # Seg Neutrophils # Man PT INR POC ABG pH POC ABG pCO2 POC ABG pO2 Sodium Potassium Chloride Carbon Dioxide BUN Creatinine Glucose POC Glucose 106 H 128 H Lactic Acid Calcium Magnesium Total Bilirubin AST ALT Alkaline Phosphatase Ammonia Troponin T C-Reactive Protein Total Protein Albumin Prealbumin 0.120 L TSH Crossmatch 05/21/17 05/21/17 05/21/17 10:30 10:30 11:12 WBC 11.1 H RBC 3.16 L Hgb 8.7 L Hct 29.9 L MCV MCH MCHC 29 L RDW 25.0 H Plt Count [place] % (Auto) [place] # Seg Neutrophils % 78.6 H Seg Neuts % (Manual) Nucleated RBC % Seg Neutrophils # 8.7 H Seg Neutrophils # Man PT INR POC ABG pH POC ABG pCO2 POC ABG pO2 Sodium 135 L Potassium Chloride Carbon Dioxide 20 L BUN Creatinine 1.5 H Glucose 148 H POC Glucose 142 H Lactic Acid Calcium 7.2 L Magnesium Total Bilirubin 1.30 H AST 143 H ALT Alkaline Phosphatase 392 H Ammonia Troponin T C-Reactive Protein Total Protein 6.1 L Albumin 1.2 L Prealbumin TSH Crossmatch 08/30/16 08/30/16 08/30/16 17:41 18:03 18:18 WBC RBC Hgb Hct MCV MCH MCHC RDW Plt Count [place] % (Auto) [place] # Seg Neutrophils % Seg Neuts % (Manual) Nucleated RBC % Seg Neutrophils # Seg Neutrophils # Man PT INR POC ABG pH 7.316 L POC ABG pCO2 POC ABG pO2 44 L 59 L Sodium Potassium Chloride Carbon Dioxide BUN Creatinine Glucose POC Glucose 150 H Lactic Acid Calcium Magnesium Total Bilirubin AST ALT Alkaline Phosphatase Ammonia Troponin T C-Reactive Protein Total Protein Albumin Prealbumin TSH Crossmatch 08/30/16 08/30/16 08/31/16 22:20 22:20 00:11 WBC RBC Hgb Hct MCV MCH MCHC RDW Plt Count [place] % (Auto) [place] # Seg Neutrophils % Seg Neuts % (Manual) Nucleated RBC % Seg Neutrophils # Seg Neutrophils # Man PT INR POC ABG pH POC ABG pCO2 POC ABG pO2 Sodium Potassium Chloride Carbon Dioxide BUN Creatinine Glucose POC Glucose 133 H Lactic Acid 2.30 H* Calcium Magnesium Total Bilirubin AST ALT Alkaline Phosphatase Ammonia Troponin T C-Reactive Protein 10.20 H Total Protein Albumin Prealbumin TSH Crossmatch 08/31/16 08/31/16 08/31/16 04:20 04:20 04:20 WBC 18.3 H RBC 3.19 L Hgb 8.8 L Hct 30.0 L MCV MCH 27 L MCHC 29 L RDW 23.9 H Plt Count [place] % (Auto) [place] # Seg Neutrophils % Seg Neuts % (Manual) Nucleated RBC % Seg Neutrophils # Seg Neutrophils # Man PT 16.8 H INR 1.37 H POC ABG pH POC ABG pCO2 POC ABG pO2 Sodium 136 L Potassium Chloride Carbon Dioxide 19 L BUN Creatinine 1.5 H Glucose 125 H POC Glucose Lactic Acid Calcium 7.0 L Magnesium Total Bilirubin 1.50 H AST 131 H ALT Alkaline Phosphatase 431 H Ammonia Troponin T C-Reactive Protein Total Protein 6.2 L Albumin 1.2 L Prealbumin TSH Crossmatch 08/31/16 08/31/16 08/31/16 04:20 05:22 05:24 WBC RBC Hgb Hct MCV MCH MCHC RDW Plt Count [place] % (Auto) [place] # Seg Neutrophils % Seg Neuts % (Manual) Nucleated RBC % Seg Neutrophils # Seg Neutrophils # Man PT INR POC ABG pH POC ABG pCO2 POC ABG pO2 142 H Sodium Potassium Chloride Carbon Dioxide BUN Creatinine Glucose POC Glucose 123 H Lactic Acid Calcium Magnesium Total Bilirubin AST ALT Alkaline Phosphatase Ammonia 70.0 H Troponin T C-Reactive Protein Total Protein Albumin Prealbumin TSH Crossmatch 08/31/16 08/31/16 08/31/16 12:10 15:45 17:38 WBC RBC Hgb Hct MCV MCH MCHC RDW Plt Count [place] % (Auto) [place] # Seg Neutrophils % Seg Neuts % (Manual) Nucleated RBC % Seg Neutrophils # Seg Neutrophils # Man PT INR POC ABG pH POC ABG pCO2 POC ABG pO2 Sodium 136 L Potassium Chloride Carbon Dioxide 21 L BUN Creatinine 1.5 H Glucose 160 H POC Glucose 147 H 151 H Lactic Acid Calcium 6.9 L Magnesium Total Bilirubin AST ALT Alkaline Phosphatase Ammonia Troponin T 0.109 H* D C-Reactive Protein Total Protein Albumin Prealbumin TSH Crossmatch 09/01/16 09/01/16 09/01/16 00:09 04:00 04:00 WBC 14.8 H RBC 2.89 L Hgb 7.8 L Hct 27.2 L MCV MCH 27 L MCHC 29 L RDW 24.4 H Plt Count [place] % (Auto) [place] # Seg Neutrophils % Seg Neuts % (Manual) Nucleated RBC % Seg Neutrophils # Seg Neutrophils # Man PT 18.2 H INR 1.51 H POC ABG pH POC ABG pCO2 POC ABG pO2 Sodium Potassium Chloride Carbon Dioxide BUN Creatinine Glucose POC Glucose 192 H Lactic Acid Calcium Magnesium Total Bilirubin AST ALT Alkaline Phosphatase Ammonia Troponin T C-Reactive Protein Total Protein Albumin Prealbumin TSH Crossmatch 09/01/16 09/01/16 09/01/16 04:00 05:28 11:28 WBC RBC Hgb Hct MCV MCH MCHC RDW Plt Count [place] % (Auto) [place] # Seg Neutrophils % Seg Neuts % (Manual) Nucleated RBC % Seg Neutrophils # Seg Neutrophils # Cristian PT INR POC ABG pH POC ABG pCO2 POC ABG pO2 Sodium Potassium Chloride Carbon Dioxide 20 L BUN Creatinine 1.6 H Glucose 183 H POC Glucose 189 H 207 H Lactic Acid Calcium 6.9 L Magnesium Total Bilirubin 1.30 H AST 138 H ALT Alkaline Phosphatase 520 H Ammonia Troponin T C-Reactive Protein Total Protein 6.1 L Albumin 1.2 L Prealbumin TSH Crossmatch 09/01/16 09/01/16 09/02/16 16:56 23:49 05:00 WBC RBC Hgb Hct MCV MCH MCHC RDW Plt Count [place] % (Auto) [place] # Seg Neutrophils % Seg Neuts % (Manual) Nucleated RBC % Seg Neutrophils # Seg Neutrophils # Cristian PT 18.0 H INR 1.49 H POC ABG pH POC ABG pCO2 POC ABG pO2 Sodium Potassium Chloride Carbon Dioxide BUN Creatinine Glucose POC Glucose 250 H 307 H Lactic Acid Calcium Magnesium Total Bilirubin AST ALT Alkaline Phosphatase Ammonia Troponin T C-Reactive Protein Total Protein Albumin Prealbumin TSH Crossmatch 09/02/16 09/02/16 09/02/16 05:00 05:00 05:45 WBC 12.3 H RBC 2.57 L Hgb 7.1 L Hct 23.4 L MCV MCH MCHC RDW 23.9 H Plt Count [place] % (Auto) [place] # Seg Neutrophils % Seg Neuts % (Manual) 72.0 H Nucleated RBC % 25.0 H Seg Neutrophils # Seg Neutrophils # Man 8.9 H PT INR POC ABG pH POC ABG pCO2 POC ABG pO2 Sodium Potassium Chloride Carbon Dioxide BUN Creatinine 1.4 H Glucose 299 H POC Glucose 327 H Lactic Acid Calcium 7.0 L Magnesium Total Bilirubin AST ALT Alkaline Phosphatase Ammonia Troponin T C-Reactive Protein Total Protein Albumin Prealbumin TSH Crossmatch 09/02/16 09/02/16 09/02/16 12:22 17:22 23:24 WBC RBC Hgb Hct MCV MCH MCHC RDW Plt Count [place] % (Auto) [place] # Seg Neutrophils % Seg Neuts % (Manual) Nucleated RBC % Seg Neutrophils # Seg Neutrophils # Man PT INR POC ABG pH POC ABG pCO2 POC ABG pO2 Sodium Potassium Chloride Carbon Dioxide BUN Creatinine Glucose POC Glucose 310 H 358 H 286 H Lactic Acid Calcium Magnesium Total Bilirubin AST ALT Alkaline Phosphatase Ammonia Troponin T C-Reactive Protein Total Protein Albumin Prealbumin TSH Crossmatch 09/03/16 09/03/16 09/03/16 04:10 04:10 04:10 WBC 11.8 H RBC 2.29 L Hgb 6.1 L Hct 21.0 L MCV MCH 27 L MCHC 29 L RDW 24.1 H Plt Count [place] % (Auto) [place] # Seg Neutrophils % Seg Neuts % (Manual) Nucleated RBC % Seg Neutrophils # Seg Neutrophils # Man PT 17.6 H INR 1.45 H POC ABG pH POC ABG pCO2 POC ABG pO2 Sodium Potassium Chloride Carbon Dioxide BUN Creatinine 1.4 H Glucose 301 H POC Glucose Lactic Acid Calcium 7.0 L Magnesium Total Bilirubin AST ALT Alkaline Phosphatase Ammonia Troponin T C-Reactive Protein Total Protein Albumin Prealbumin TSH Crossmatch 09/03/16 09/03/16 09/03/16 05:59 11:36 17:42 WBC RBC Hgb Hct MCV MCH MCHC RDW Plt Count [place] % (Auto) [place] # Seg Neutrophils % Seg Neuts % (Manual) Nucleated RBC % Seg Neutrophils # Seg Neutrophils # Man PT INR POC ABG pH POC ABG pCO2 POC ABG pO2 Sodium Potassium Chloride Carbon Dioxide BUN Creatinine Glucose POC Glucose 351 H 285 H 259 H Lactic Acid Calcium Magnesium Total Bilirubin AST ALT Alkaline Phosphatase Ammonia Troponin T C-Reactive Protein Total Protein Albumin Prealbumin TSH Crossmatch 09/03/16 09/04/16 09/04/16 23:00 04:27 05:36 WBC RBC Hgb Hct MCV MCH MCHC RDW Plt Count [place] % (Auto) [place] # Seg Neutrophils % Seg Neuts % (Manual) Nucleated RBC % Seg Neutrophils # Seg Neutrophils # Man PT INR POC ABG pH 7.544 H POC ABG pCO2 30.8 L POC ABG pO2 78 L Sodium Potassium Chloride Carbon Dioxide BUN Creatinine Glucose POC Glucose 192 H 228 H Lactic Acid Calcium Magnesium Total Bilirubin AST ALT Alkaline Phosphatase Ammonia Troponin T C-Reactive Protein Total Protein Albumin Prealbumin TSH Crossmatch 09/04/16 09/04/16 09/04/16 06:37 06:37 06:39 WBC 21.0 H RBC 2.22 L Hgb 6.0 L Hct 20.1 L MCV MCH 27 L MCHC RDW 24.3 H Plt Count [place] % (Auto) [place] # Seg Neutrophils % Seg Neuts % (Manual) Nucleated RBC % Seg Neutrophils # Seg Neutrophils # Cristian PT 16.8 H INR 1.37 H POC ABG pH POC ABG pCO2 POC ABG pO2 Sodium Potassium Chloride Carbon Dioxide BUN Creatinine 1.4 H Glucose 201 H POC Glucose Lactic Acid Calcium 7.1 L Magnesium Total Bilirubin AST ALT Alkaline Phosphatase Ammonia Troponin T C-Reactive Protein Total Protein Albumin Prealbumin TSH Crossmatch 09/04/16 09/04/16 09/04/16 12:14 15:47 17:41 WBC RBC Hgb Hct MCV MCH MCHC RDW Plt Count [place] % (Auto) [place] # Seg Neutrophils % Seg Neuts % (Manual) Nucleated RBC % Seg Neutrophils # Seg Neutrophils # Cristian PT INR POC ABG pH POC ABG pCO2 POC ABG pO2 Sodium Potassium Chloride Carbon Dioxide BUN Creatinine Glucose POC Glucose 176 H 218 H Lactic Acid Calcium Magnesium Total Bilirubin AST ALT Alkaline Phosphatase Ammonia Troponin T C-Reactive Protein Total Protein Albumin Prealbumin TSH Crossmatch See Detail 09/04/16 09/04/16 09/05/16 21:59 23:48 04:30 WBC RBC Hgb Hct MCV MCH MCHC RDW Plt Count [place] % (Auto) [place] # Seg Neutrophils % Seg Neuts % (Manual) Nucleated RBC % Seg Neutrophils # Seg Neutrophils # Cristian PT 17.2 H INR 1.41 H POC ABG pH POC ABG pCO2 POC ABG pO2 Sodium Potassium Chloride Carbon Dioxide BUN Creatinine Glucose POC Glucose 170 H 121 H Lactic Acid Calcium Magnesium Total Bilirubin AST ALT Alkaline Phosphatase Ammonia Troponin T C-Reactive Protein Total Protein Albumin Prealbumin TSH Crossmatch 09/05/16 09/05/16 09/05/16 04:30 04:30 05:09 WBC 31.9 H RBC 3.11 L Hgb 8.5 L Hct 28.3 L D MCV MCH 27 L MCHC RDW 21.0 H Plt Count [place] % (Auto) [place] # Seg Neutrophils % Seg Neuts % (Manual) Nucleated RBC % Seg Neutrophils # Seg Neutrophils # Man PT INR POC ABG pH 7.226 L POC ABG pCO2 61.6 H POC ABG pO2 68 L Sodium 134 L Potassium 5.5 H Chloride 96.6 L Carbon Dioxide BUN 23 H Creatinine 1.6 H Glucose 116 H POC Glucose Lactic Acid Calcium 7.1 L Magnesium Total Bilirubin AST ALT Alkaline Phosphatase Ammonia Troponin T C-Reactive Protein Total Protein Albumin Prealbumin TSH Crossmatch 09/05/16 09/05/16 09/05/16 05:33 12:08 17:32 WBC RBC Hgb Hct MCV MCH MCHC RDW Plt Count [place] % (Auto) [place] # Seg Neutrophils % Seg Neuts % (Manual) Nucleated RBC % Seg Neutrophils # Seg Neutrophils # Man PT INR POC ABG pH POC ABG pCO2 POC ABG pO2 Sodium Potassium Chloride Carbon Dioxide BUN Creatinine Glucose POC Glucose 114 H 147 H 174 H Lactic Acid Calcium Magnesium Total Bilirubin AST ALT Alkaline Phosphatase Ammonia Troponin T C-Reactive Protein Total Protein Albumin Prealbumin TSH Crossmatch 09/06/16 09/06/16 09/06/16 03:30 03:30 03:30 WBC 25.4 H RBC 2.57 L Hgb 7.2 L Hct 22.8 L MCV MCH MCHC RDW 20.9 H Plt Count 138 L [place] % (Auto) [place] # Seg Neutrophils % Seg Neuts % (Manual) Nucleated RBC % Seg Neutrophils # Seg Neutrophils # Man PT 16.4 H INR 1.33 H POC ABG pH POC ABG pCO2 POC ABG pO2 Sodium Potassium Chloride Carbon Dioxide BUN 36 H Creatinine 1.9 H Glucose POC Glucose Lactic Acid Calcium 7.2 L Magnesium Total Bilirubin AST ALT Alkaline Phosphatase Ammonia Troponin T C-Reactive Protein Total Protein Albumin Prealbumin TSH Crossmatch 09/06/16 09/06/16 09/06/16 11:07 12:03 14:44 WBC RBC Hgb Hct MCV MCH MCHC RDW Plt Count [place] % (Auto) [place] # Seg Neutrophils % Seg Neuts % (Manual) Nucleated RBC % Seg Neutrophils # Seg Neutrophils # Man PT INR POC ABG pH POC ABG pCO2 POC ABG pO2 Sodium Potassium Chloride Carbon Dioxide BUN Creatinine Glucose POC Glucose 61 L 55 L Lactic Acid Calcium Magnesium Total Bilirubin AST ALT Alkaline Phosphatase Ammonia Troponin T 0.080 H C-Reactive Protein Total Protein Albumin Prealbumin TSH Crossmatch 09/06/16 09/06/16 09/07/16 21:05 23:53 03:36 WBC RBC Hgb Hct MCV MCH MCHC RDW Plt Count [place] % (Auto) [place] # Seg Neutrophils % Seg Neuts % (Manual) Nucleated RBC % Seg Neutrophils # Seg Neutrophils # Man PT INR POC ABG pH POC ABG pCO2 POC ABG pO2 Sodium Potassium Chloride Carbon Dioxide BUN Creatinine Glucose POC Glucose 140 H 178 H 243 H Lactic Acid Calcium Magnesium Total Bilirubin AST ALT Alkaline Phosphatase Ammonia Troponin T C-Reactive Protein Total Protein Albumin Prealbumin TSH Crossmatch 09/07/16 09/07/16 09/07/16 03:42 03:42 05:04 WBC 17.3 H RBC 2.69 L Hgb 7.6 L Hct 23.8 L MCV MCH MCHC RDW 20.5 H Plt Count 137 L [place] % (Auto) [place] # Seg Neutrophils % Seg Neuts % (Manual) Nucleated RBC % Seg Neutrophils # Seg Neutrophils # Man PT INR POC ABG pH POC ABG pCO2 POC ABG pO2 Sodium Potassium 3.3 L Chloride Carbon Dioxide BUN 38 H Creatinine 1.6 H Glucose 201 H POC Glucose 241 H Lactic Acid Calcium 7.4 L Magnesium Total Bilirubin AST ALT Alkaline Phosphatase Ammonia Troponin T C-Reactive Protein Total Protein Albumin Prealbumin TSH Crossmatch 09/07/16 09/07/16 09/07/16 11:46 17:41 23:18 WBC RBC Hgb Hct MCV MCH MCHC RDW Plt Count [place] % (Auto) [place] # Seg Neutrophils % Seg Neuts % (Manual) Nucleated RBC % Seg Neutrophils # Seg Neutrophils # Man PT INR POC ABG pH POC ABG pCO2 POC ABG pO2 Sodium Potassium Chloride Carbon Dioxide BUN Creatinine Glucose POC Glucose 313 H 227 H 116 H Lactic Acid Calcium Magnesium Total Bilirubin AST ALT Alkaline Phosphatase Ammonia Troponin T C-Reactive Protein Total Protein Albumin Prealbumin TSH Crossmatch 09/08/16 09/08/16 09/08/16 04:00 04:00 05:15 WBC 18.4 H RBC 2.43 L Hgb 6.9 L Hct 21.5 L MCV MCH MCHC RDW 20.5 H Plt Count 119 L [place] % (Auto) [place] # Seg Neutrophils % Seg Neuts % (Manual) Nucleated RBC % Seg Neutrophils # Seg Neutrophils # Man PT INR POC ABG pH 7.458 H POC ABG pCO2 POC ABG pO2 177 H Sodium Potassium 3.5 L Chloride Carbon Dioxide BUN 37 H Creatinine 1.3 H Glucose POC Glucose Lactic Acid Calcium 7.1 L Magnesium Total Bilirubin AST ALT Alkaline Phosphatase Ammonia Troponin T C-Reactive Protein Total Protein Albumin Prealbumin TSH Crossmatch 09/08/16 09/08/16 09/08/16 11:00 15:58 23:16 WBC RBC Hgb Hct MCV MCH MCHC RDW Plt Count [place] % (Auto) [place] # Seg Neutrophils % Seg Neuts % (Manual) Nucleated RBC % Seg Neutrophils # Seg Neutrophils # Man PT INR POC ABG pH POC ABG pCO2 POC ABG pO2 113 H Sodium Potassium Chloride Carbon Dioxide BUN Creatinine Glucose POC Glucose 40 L Lactic Acid Calcium Magnesium Total Bilirubin AST ALT Alkaline Phosphatase Ammonia Troponin T C-Reactive Protein Total Protein Albumin Prealbumin TSH Crossmatch See Detail 09/09/16 09/09/16 09/09/16 05:02 12:33 18:10 WBC RBC Hgb Hct MCV MCH MCHC RDW Plt Count [place] % (Auto) [place] # Seg Neutrophils % Seg Neuts % (Manual) Nucleated RBC % Seg Neutrophils # Seg Neutrophils # Man PT INR POC ABG pH 7.454 H POC ABG pCO2 POC ABG pO2 75 L Sodium Potassium Chloride Carbon Dioxide BUN Creatinine Glucose POC Glucose 59 L Lactic Acid Calcium Magnesium Total Bilirubin AST ALT Alkaline Phosphatase Ammonia Troponin T C-Reactive Protein Total Protein Albumin Prealbumin TSH 5.220 H Crossmatch 09/09/16 09/09/16 09/09/16 18:10 18:10 18:42 WBC 17.0 H RBC 2.90 L Hgb 8.5 L Hct 26.1 L MCV MCH MCHC RDW 17.9 H Plt Count 126 L [place] % (Auto) [place] # Seg Neutrophils % Seg Neuts % (Manual) Nucleated RBC % Seg Neutrophils # Seg Neutrophils # Man PT INR POC ABG pH POC ABG pCO2 POC ABG pO2 Sodium Potassium Chloride Carbon Dioxide BUN 36 H Creatinine Glucose 133 H POC Glucose 148 H Lactic Acid Calcium 6.9 L Magnesium Total Bilirubin AST 253 H ALT 184 H Alkaline Phosphatase 729 H Ammonia Troponin T C-Reactive Protein Total Protein 5.1 L Albumin 1.7 L Prealbumin TSH Crossmatch 09/09/16 09/10/16 09/10/16 23:22 05:10 11:43 WBC RBC Hgb Hct MCV MCH MCHC RDW Plt Count [place] % (Auto) [place] # Seg Neutrophils % Seg Neuts % (Manual) Nucleated RBC % Seg Neutrophils # Seg Neutrophils # Man PT INR POC ABG pH POC ABG pCO2 POC ABG pO2 Sodium Potassium Chloride Carbon Dioxide BUN 35 H Creatinine Glucose 240 H POC Glucose 170 H 268 H Lactic Acid Calcium 6.8 L Magnesium Total Bilirubin AST 226 H ALT 171 H Alkaline Phosphatase 710 H Ammonia Troponin T C-Reactive Protein Total Protein 5.2 L Albumin 1.7 L Prealbumin TSH Crossmatch 09/10/16 09/11/16 09/11/16 17:51 01:07 05:00 WBC RBC Hgb Hct MCV MCH MCHC RDW Plt Count [place] % (Auto) [place] # Seg Neutrophils % Seg Neuts % (Manual) Nucleated RBC % Seg Neutrophils # Seg Neutrophils # Cristian PT INR POC ABG pH POC ABG pCO2 POC ABG pO2 Sodium Potassium 2.9 L* Chloride Carbon Dioxide BUN 35 H Creatinine Glucose 274 H POC Glucose 334 H 223 H Lactic Acid Calcium 6.9 L Magnesium Total Bilirubin AST 167 H ALT 145 H Alkaline Phosphatase 631 H Ammonia Troponin T C-Reactive Protein Total Protein 5.1 L Albumin 1.6 L Prealbumin TSH Crossmatch 09/11/16 09/11/16 09/11/16 05:01 12:16 17:12 WBC RBC Hgb Hct MCV MCH MCHC RDW Plt Count [place] % (Auto) [place] # Seg Neutrophils % Seg Neuts % (Manual) Nucleated RBC % Seg Neutrophils # Seg Neutrophils # Man PT INR POC ABG pH POC ABG pCO2 POC ABG pO2 Sodium Potassium Chloride Carbon Dioxide BUN Creatinine Glucose POC Glucose 305 H 219 H 171 H Lactic Acid Calcium Magnesium Total Bilirubin AST ALT Alkaline Phosphatase Ammonia Troponin T C-Reactive Protein Total Protein Albumin Prealbumin TSH Crossmatch 09/11/16 09/12/16 09/12/16 23:35 03:33 05:00 WBC 12.9 H RBC 2.81 L Hgb 8.2 L Hct 25.4 L MCV MCH MCHC RDW 17.9 H Plt Count [place] % (Auto) [place] # Seg Neutrophils % Seg Neuts % (Manual) Nucleated RBC % Seg Neutrophils # Seg Neutrophils # Man PT INR POC ABG pH POC ABG pCO2 POC ABG pO2 Sodium Potassium Chloride Carbon Dioxide BUN Creatinine Glucose POC Glucose 216 H 183 H Lactic Acid Calcium Magnesium Total Bilirubin AST ALT Alkaline Phosphatase Ammonia Troponin T C-Reactive Protein Total Protein Albumin Prealbumin TSH Crossmatch 09/12/16 09/12/16 09/12/16 05:00 15:15 18:30 WBC RBC Hgb Hct MCV MCH MCHC RDW Plt Count [place] % (Auto) [place] # Seg Neutrophils % Seg Neuts % (Manual) Nucleated RBC % Seg Neutrophils # Seg Neutrophils # Man PT INR POC ABG pH POC ABG pCO2 POC ABG pO2 Sodium Potassium 3.0 L 3.4 L Chloride Carbon Dioxide BUN 33 H Creatinine 0.5 L Glucose POC Glucose 215 H Lactic Acid Calcium 7.0 L Magnesium Total Bilirubin AST ALT Alkaline Phosphatase Ammonia Troponin T C-Reactive Protein Total Protein Albumin Prealbumin TSH Crossmatch 09/12/16 09/13/16 09/13/16 23:17 05:50 05:50 WBC RBC 2.93 L Hgb 8.8 L Hct 26.7 L MCV MCH MCHC RDW 18.0 H Plt Count [place] % (Auto) [place] # Seg Neutrophils % Seg Neuts % (Manual) Nucleated RBC % Seg Neutrophils # Seg Neutrophils # Man PT INR POC ABG pH POC ABG pCO2 POC ABG pO2 Sodium Potassium 2.6 L* D Chloride Carbon Dioxide BUN 29 H Creatinine 0.5 L Glucose 106 H POC Glucose 155 H Lactic Acid Calcium 7.3 L Magnesium Total Bilirubin AST ALT Alkaline Phosphatase Ammonia Troponin T C-Reactive Protein Total Protein Albumin Prealbumin TSH Crossmatch 09/13/16 09/13/16 09/13/16 05:53 11:43 15:07 WBC RBC Hgb Hct MCV MCH MCHC RDW Plt Count [place] % (Auto) [place] # Seg Neutrophils % Seg Neuts % (Manual) Nucleated RBC % Seg Neutrophils # Seg Neutrophils # Man PT INR POC ABG pH POC ABG pCO2 POC ABG pO2 Sodium Potassium 2.8 L* Chloride Carbon Dioxide BUN Creatinine Glucose POC Glucose 119 H 129 H Lactic Acid Calcium Magnesium Total Bilirubin AST ALT Alkaline Phosphatase Ammonia Troponin T C-Reactive Protein Total Protein Albumin Prealbumin TSH Crossmatch 09/13/16 09/13/16 09/14/16 17:39 23:30 05:34 WBC RBC Hgb Hct MCV MCH MCHC RDW Plt Count [place] % (Auto) [place] # Seg Neutrophils % Seg Neuts % (Manual) Nucleated RBC % Seg Neutrophils # Seg Neutrophils # Man PT INR POC ABG pH POC ABG pCO2 POC ABG pO2 Sodium Potassium Chloride Carbon Dioxide BUN Creatinine Glucose POC Glucose 144 H 196 H 175 H Lactic Acid Calcium Magnesium Total Bilirubin AST ALT Alkaline Phosphatase Ammonia Troponin T C-Reactive Protein Total Protein Albumin Prealbumin TSH Crossmatch 09/14/16 09/14/16 09/14/16 06:24 06:24 12:41 WBC RBC 2.82 L Hgb 8.4 L Hct 25.7 L MCV MCH MCHC RDW 18.0 H Plt Count [place] % (Auto) [place] # Seg Neutrophils % Seg Neuts % (Manual) Nucleated RBC % Seg Neutrophils # Seg Neutrophils # Man PT INR POC ABG pH POC ABG pCO2 POC ABG pO2 Sodium Potassium 2.9 L* Chloride 107.3 H Carbon Dioxide BUN 26 H Creatinine 0.4 L Glucose 169 H POC Glucose 184 H Lactic Acid Calcium 7.5 L Magnesium Total Bilirubin AST ALT Alkaline Phosphatase Ammonia Troponin T C-Reactive Protein Total Protein Albumin Prealbumin TSH Crossmatch 09/14/16 09/14/16 09/14/16 14:50 17:57 23:34 WBC RBC Hgb Hct MCV MCH MCHC RDW Plt Count [place] % (Auto) [place] # Seg Neutrophils % Seg Neuts % (Manual) Nucleated RBC % Seg Neutrophils # Seg Neutrophils # Man PT INR POC ABG pH POC ABG pCO2 POC ABG pO2 Sodium Potassium 3.3 L Chloride Carbon Dioxide BUN Creatinine Glucose POC Glucose 191 H 178 H Lactic Acid Calcium Magnesium Total Bilirubin AST ALT Alkaline Phosphatase Ammonia Troponin T C-Reactive Protein Total Protein Albumin Prealbumin TSH Crossmatch 09/15/16 09/15/16 09/15/16 05:02 07:57 07:57 WBC RBC 3.04 L Hgb 9.2 L Hct 28.2 L MCV MCH MCHC RDW 18.8 H Plt Count [place] % (Auto) [place] # Seg Neutrophils % Seg Neuts % (Manual) Nucleated RBC % Seg Neutrophils # Seg Neutrophils # Man PT INR POC ABG pH POC ABG pCO2 POC ABG pO2 Sodium Potassium Chloride 107.2 H Carbon Dioxide BUN 26 H Creatinine 0.4 L Glucose 160 H POC Glucose 192 H Lactic Acid Calcium 7.7 L Magnesium Total Bilirubin AST ALT Alkaline Phosphatase Ammonia Troponin T C-Reactive Protein Total Protein Albumin Prealbumin TSH Crossmatch 09/15/16 09/15/16 09/15/16 11:23 17:51 23:45 WBC RBC Hgb Hct MCV MCH MCHC RDW Plt Count [place] % (Auto) [place] # Seg Neutrophils % Seg Neuts % (Manual) Nucleated RBC % Seg Neutrophils # Seg Neutrophils # Man PT INR POC ABG pH POC ABG pCO2 POC ABG pO2 Sodium Potassium Chloride Carbon Dioxide BUN Creatinine Glucose POC Glucose 232 H 240 H 251 H Lactic Acid Calcium Magnesium Total Bilirubin AST ALT Alkaline Phosphatase Ammonia Troponin T C-Reactive Protein Total Protein Albumin Prealbumin TSH Crossmatch 09/16/16 09/16/16 09/16/16 04:55 04:55 05:38 WBC RBC 2.84 L Hgb 8.6 L Hct 26.2 L MCV MCH MCHC RDW 18.8 H Plt Count [place] % (Auto) [place] # Seg Neutrophils % Seg Neuts % (Manual) Nucleated RBC % Seg Neutrophils # Seg Neutrophils # Man PT INR POC ABG pH POC ABG pCO2 POC ABG pO2 Sodium Potassium 3.1 L Chloride 107.6 H Carbon Dioxide BUN 25 H Creatinine 0.3 L Glucose 134 H POC Glucose 157 H Lactic Acid Calcium 7.6 L Magnesium Total Bilirubin AST ALT Alkaline Phosphatase Ammonia Troponin T C-Reactive Protein Total Protein Albumin Prealbumin TSH Crossmatch 09/16/16 09/16/16 09/16/16 11:53 17:56 23:54 WBC RBC Hgb Hct MCV MCH MCHC RDW Plt Count [place] % (Auto) [place] # Seg Neutrophils % Seg Neuts % (Manual) Nucleated RBC % Seg Neutrophils # Seg Neutrophils # Man PT INR POC ABG pH POC ABG pCO2 POC ABG pO2 Sodium Potassium Chloride Carbon Dioxide BUN Creatinine Glucose POC Glucose 137 H 138 H 179 H Lactic Acid Calcium Magnesium Total Bilirubin AST ALT Alkaline Phosphatase Ammonia Troponin T C-Reactive Protein Total Protein Albumin Prealbumin TSH Crossmatch 09/17/16 09/17/16 09/17/16 05:00 05:00 05:28 WBC RBC 2.77 L Hgb 8.2 L Hct 25.9 L MCV MCH MCHC RDW 19.1 H Plt Count [place] % (Auto) [place] # Seg Neutrophils % Seg Neuts % (Manual) Nucleated RBC % Seg Neutrophils # Seg Neutrophils # Man PT INR POC ABG pH POC ABG pCO2 POC ABG pO2 Sodium Potassium 3.5 L Chloride 108.4 H Carbon Dioxide BUN 29 H Creatinine 0.3 L Glucose 117 H POC Glucose 142 H Lactic Acid Calcium 7.4 L Magnesium Total Bilirubin AST ALT Alkaline Phosphatase Ammonia Troponin T C-Reactive Protein Total Protein Albumin Prealbumin TSH Crossmatch 09/17/16 09/17/16 09/18/16 18:07 23:31 06:29 WBC RBC Hgb Hct MCV MCH MCHC RDW Plt Count [place] % (Auto) [place] # Seg Neutrophils % Seg Neuts % (Manual) Nucleated RBC % Seg Neutrophils # Seg Neutrophils # Man PT INR POC ABG pH POC ABG pCO2 POC ABG pO2 Sodium Potassium Chloride Carbon Dioxide BUN Creatinine Glucose POC Glucose 173 H 240 H 282 H Lactic Acid Calcium Magnesium Total Bilirubin AST ALT Alkaline Phosphatase Ammonia Troponin T C-Reactive Protein Total Protein Albumin Prealbumin TSH Crossmatch 09/18/16 09/18/16 09/18/16 06:30 12:21 17:55 WBC RBC Hgb Hct MCV MCH MCHC RDW Plt Count [place] % (Auto) [place] # Seg Neutrophils % Seg Neuts % (Manual) Nucleated RBC % Seg Neutrophils # Seg Neutrophils # Man PT INR POC ABG pH POC ABG pCO2 POC ABG pO2 Sodium 148 H Potassium Chloride 110.7 H Carbon Dioxide BUN 30 H Creatinine 0.4 L Glucose 249 H POC Glucose 248 H 255 H Lactic Acid Calcium 7.4 L Magnesium 1.60 L Total Bilirubin AST ALT Alkaline Phosphatase Ammonia Troponin T C-Reactive Protein Total Protein Albumin Prealbumin TSH Crossmatch 09/19/16 09/19/16 09/19/16 00:09 04:45 05:11 WBC RBC Hgb Hct MCV MCH MCHC RDW Plt Count [place] % (Auto) [place] # Seg Neutrophils % Seg Neuts % (Manual) Nucleated RBC % Seg Neutrophils # Seg Neutrophils # Man PT INR POC ABG pH POC ABG pCO2 POC ABG pO2 Sodium 146 H Potassium Chloride 110.8 H Carbon Dioxide BUN 34 H Creatinine 0.4 L Glucose 278 H POC Glucose 324 H 278 H Lactic Acid Calcium 7.3 L Magnesium Total Bilirubin AST ALT Alkaline Phosphatase Ammonia Troponin T C-Reactive Protein Total Protein Albumin Prealbumin TSH Crossmatch 09/19/16 09/19/16 09/19/16 11:12 12:09 17:10 WBC RBC Hgb Hct MCV MCH MCHC RDW Plt Count [place] % (Auto) [place] # Seg Neutrophils % Seg Neuts % (Manual) Nucleated RBC % Seg Neutrophils # Seg Neutrophils # Man PT INR POC ABG pH POC ABG pCO2 POC ABG pO2 Sodium Potassium Chloride Carbon Dioxide BUN Creatinine Glucose POC Glucose 306 H 225 H 329 H Lactic Acid Calcium Magnesium Total Bilirubin AST ALT Alkaline Phosphatase Ammonia Troponin T C-Reactive Protein Total Protein Albumin Prealbumin TSH Crossmatch 09/19/16 09/20/16 09/20/16 23:34 04:52 05:00 WBC RBC Hgb Hct MCV MCH MCHC RDW Plt Count [place] % (Auto) [place] # Seg Neutrophils % Seg Neuts % (Manual) Nucleated RBC % Seg Neutrophils # Seg Neutrophils # Man PT INR POC ABG pH POC ABG pCO2 POC ABG pO2 Sodium Potassium Chloride 108.6 H Carbon Dioxide BUN 35 H Creatinine 0.4 L Glucose 370 H POC Glucose 376 H 374 H Lactic Acid Calcium 7.3 L Magnesium Total Bilirubin AST ALT Alkaline Phosphatase Ammonia Troponin T C-Reactive Protein Total Protein Albumin Prealbumin TSH Crossmatch 09/20/16 09/20/16 09/20/16 11:18 17:39 23:49 WBC RBC Hgb Hct MCV MCH MCHC RDW Plt Count [place] % (Auto) [place] # Seg Neutrophils % Seg Neuts % (Manual) Nucleated RBC % Seg Neutrophils # Seg Neutrophils # Man PT INR POC ABG pH POC ABG pCO2 POC ABG pO2 Sodium Potassium Chloride Carbon Dioxide BUN Creatinine Glucose POC Glucose 342 H 416 H 440 H Lactic Acid Calcium Magnesium Total Bilirubin AST ALT Alkaline Phosphatase Ammonia Troponin T C-Reactive Protein Total Protein Albumin Prealbumin TSH Crossmatch 09/21/16 09/21/16 09/21/16 04:58 05:15 05:15 WBC RBC 1.48 L Hgb 4.6 L* Hct 14.9 L* MCV 100 H MCH MCHC RDW 25.4 H Plt Count [place] % (Auto) [place] # Seg Neutrophils % Seg Neuts % (Manual) Nucleated RBC % Seg Neutrophils # Seg Neutrophils # Man PT INR POC ABG pH POC ABG pCO2 POC ABG pO2 Sodium Potassium Chloride 107.5 H Carbon Dioxide 20 L BUN 45 H Creatinine 0.6 L Glucose 490 H POC Glucose > 500 H Lactic Acid Calcium 7.0 L Magnesium Total Bilirubin AST ALT Alkaline Phosphatase Ammonia Troponin T C-Reactive Protein Total Protein Albumin Prealbumin TSH Crossmatch 09/21/16 09/21/16 09/21/16 08:20 09:17 12:09 WBC RBC Hgb Hct MCV MCH MCHC RDW Plt Count [place] % (Auto) [place] # Seg Neutrophils % Seg Neuts % (Manual) Nucleated RBC % Seg Neutrophils # Seg Neutrophils # Man PT INR POC ABG pH 7.464 H POC ABG pCO2 29.3 L POC ABG pO2 198 H Sodium Potassium Chloride Carbon Dioxide BUN Creatinine Glucose POC Glucose 248 H Lactic Acid Calcium Magnesium Total Bilirubin AST ALT Alkaline Phosphatase Ammonia Troponin T C-Reactive Protein Total Protein Albumin Prealbumin TSH Crossmatch See Detail 09/21/16 09/21/16 09/21/16 15:21 17:36 18:49 WBC RBC Hgb Hct MCV MCH MCHC RDW Plt Count [place] % (Auto) [place] # Seg Neutrophils % Seg Neuts % (Manual) Nucleated RBC % Seg Neutrophils # Seg Neutrophils # Man PT INR POC ABG pH POC ABG pCO2 POC ABG pO2 Sodium Potassium Chloride Carbon Dioxide BUN Creatinine Glucose POC Glucose 403 H 437 H 482 H Lactic Acid Calcium Magnesium Total Bilirubin AST ALT Alkaline Phosphatase Ammonia Troponin T C-Reactive Protein Total Protein Albumin Prealbumin TSH Crossmatch 09/21/16 09/22/16 09/22/16 23:29 00:00 01:29 WBC 14.8 H RBC 2.94 L Hgb 9.1 L D Hct 27.5 L D MCV MCH MCHC RDW 16.7 H Plt Count [place] % (Auto) [place] # Seg Neutrophils % Seg Neuts % (Manual) Nucleated RBC % Seg Neutrophils # Seg Neutrophils # Man PT INR POC ABG pH POC ABG pCO2 POC ABG pO2 Sodium Potassium Chloride Carbon Dioxide BUN Creatinine Glucose POC Glucose 311 H 288 H Lactic Acid Calcium Magnesium Total Bilirubin AST ALT Alkaline Phosphatase Ammonia Troponin T C-Reactive Protein Total Protein Albumin Prealbumin TSH Crossmatch 09/22/16 09/22/16 09/22/16 02:29 03:12 03:26 WBC RBC Hgb Hct MCV MCH MCHC RDW Plt Count [place] % (Auto) [place] # Seg Neutrophils % Seg Neuts % (Manual) Nucleated RBC % Seg Neutrophils # Seg Neutrophils # Man PT INR POC ABG pH 7.460 H POC ABG pCO2 29.9 L POC ABG pO2 112 H Sodium Potassium Chloride Carbon Dioxide BUN Creatinine Glucose POC Glucose 261 H 239 H Lactic Acid Calcium Magnesium Total Bilirubin AST ALT Alkaline Phosphatase Ammonia Troponin T C-Reactive Protein Total Protein Albumin Prealbumin TSH Crossmatch 09/22/16 09/22/16 09/22/16 05:35 06:40 06:40 WBC 13.5 H RBC 3.18 L Hgb 9.5 L Hct 28.8 L MCV MCH MCHC RDW 16.2 H Plt Count [place] % (Auto) [place] # Seg Neutrophils % Seg Neuts % (Manual) Nucleated RBC % Seg Neutrophils # Seg Neutrophils # Man PT INR POC ABG pH POC ABG pCO2 POC ABG pO2 Sodium 147 H Potassium 3.2 L D Chloride 112.3 H Carbon Dioxide BUN 49 H Creatinine 0.6 L Glucose 102 H POC Glucose 181 H Lactic Acid Calcium 7.5 L Magnesium Total Bilirubin AST ALT Alkaline Phosphatase Ammonia Troponin T C-Reactive Protein Total Protein Albumin Prealbumin TSH Crossmatch 09/22/16 09/22/16 09/22/16 07:16 18:03 20:05 WBC RBC Hgb Hct MCV MCH MCHC RDW Plt Count [place] % (Auto) [place] # Seg Neutrophils % Seg Neuts % (Manual) Nucleated RBC % Seg Neutrophils # Seg Neutrophils # Cristian PT INR POC ABG pH POC ABG pCO2 POC ABG pO2 Sodium Potassium Chloride Carbon Dioxide BUN Creatinine Glucose POC Glucose 152 H 115 H 107 H Lactic Acid Calcium Magnesium Total Bilirubin AST ALT Alkaline Phosphatase Ammonia Troponin T C-Reactive Protein Total Protein Albumin Prealbumin TSH Crossmatch 09/22/16 09/22/16 09/23/16 21:00 23:55 02:02 WBC 13.8 H RBC 3.04 L Hgb 9.2 L Hct 28.0 L MCV MCH MCHC RDW 16.2 H Plt Count [place] % (Auto) [place] # Seg Neutrophils % Seg Neuts % (Manual) Nucleated RBC % Seg Neutrophils # Seg Neutrophils # Man PT INR POC ABG pH POC ABG pCO2 POC ABG pO2 Sodium Potassium Chloride Carbon Dioxide BUN Creatinine Glucose POC Glucose 133 H 110 H Lactic Acid Calcium Magnesium Total Bilirubin AST ALT Alkaline Phosphatase Ammonia Troponin T C-Reactive Protein Total Protein Albumin Prealbumin TSH Crossmatch 09/23/16 09/23/16 09/23/16 04:45 04:45 05:36 WBC 13.6 H RBC 2.86 L Hgb 8.6 L Hct 26.4 L MCV MCH MCHC RDW 17.1 H Plt Count [place] % (Auto) [place] # Seg Neutrophils % Seg Neuts % (Manual) Nucleated RBC % Seg Neutrophils # Seg Neutrophils # Man PT INR POC ABG pH POC ABG pCO2 POC ABG pO2 Sodium Potassium Chloride 109.2 H Carbon Dioxide 21 L BUN 43 H Creatinine 0.5 L Glucose 152 H POC Glucose 133 H Lactic Acid Calcium 7.7 L Magnesium Total Bilirubin AST ALT Alkaline Phosphatase Ammonia Troponin T C-Reactive Protein Total Protein Albumin Prealbumin TSH Crossmatch 09/23/16 09/23/16 09/23/16 07:42 11:55 13:26 WBC RBC Hgb Hct MCV MCH MCHC RDW Plt Count [place] % (Auto) [place] # Seg Neutrophils % Seg Neuts % (Manual) Nucleated RBC % Seg Neutrophils # Seg Neutrophils # Man PT INR POC ABG pH POC ABG pCO2 POC ABG pO2 Sodium Potassium Chloride Carbon Dioxide BUN Creatinine Glucose POC Glucose 175 H 170 H 195 H Lactic Acid Calcium Magnesium Total Bilirubin AST ALT Alkaline Phosphatase Ammonia Troponin T C-Reactive Protein Total Protein Albumin Prealbumin TSH Crossmatch 09/23/16 09/23/16 09/24/16 17:37 21:54 02:56 WBC RBC Hgb Hct MCV MCH MCHC RDW Plt Count [place] % (Auto) [place] # Seg Neutrophils % Seg Neuts % (Manual) Nucleated RBC % Seg Neutrophils # Seg Neutrophils # Man PT INR POC ABG pH POC ABG pCO2 POC ABG pO2 Sodium Potassium Chloride Carbon Dioxide BUN Creatinine Glucose POC Glucose 182 H 184 H 187 H Lactic Acid Calcium Magnesium Total Bilirubin AST ALT Alkaline Phosphatase Ammonia Troponin T C-Reactive Protein Total Protein Albumin Prealbumin TSH Crossmatch 09/24/16 09/24/16 09/24/16 05:00 05:00 05:22 WBC RBC 2.82 L Hgb 8.8 L Hct 27.0 L MCV MCH MCHC RDW 17.2 H Plt Count [place] % (Auto) [place] # Seg Neutrophils % Seg Neuts % (Manual) Nucleated RBC % Seg Neutrophils # Seg Neutrophils # Man PT INR POC ABG pH POC ABG pCO2 POC ABG pO2 Sodium 148 H Potassium Chloride 115.0 H Carbon Dioxide 21 L BUN 38 H Creatinine 0.6 L Glucose 163 H POC Glucose 194 H Lactic Acid Calcium 7.9 L Magnesium Total Bilirubin AST ALT Alkaline Phosphatase Ammonia Troponin T C-Reactive Protein Total Protein Albumin Prealbumin TSH Crossmatch 09/24/16 09/24/16 09/24/16 11:02 13:55 17:37 WBC RBC Hgb Hct MCV MCH MCHC RDW Plt Count [place] % (Auto) [place] # Seg Neutrophils % Seg Neuts % (Manual) Nucleated RBC % Seg Neutrophils # Seg Neutrophils # Man PT INR POC ABG pH POC ABG pCO2 POC ABG pO2 Sodium Potassium Chloride Carbon Dioxide BUN Creatinine Glucose POC Glucose 210 H 182 H 169 H Lactic Acid Calcium Magnesium Total Bilirubin AST ALT Alkaline Phosphatase Ammonia Troponin T C-Reactive Protein Total Protein Albumin Prealbumin TSH Crossmatch 09/25/16 09/25/16 09/25/16 02:15 05:14 09:39 WBC RBC Hgb Hct MCV MCH MCHC RDW Plt Count [place] % (Auto) [place] # Seg Neutrophils % Seg Neuts % (Manual) Nucleated RBC % Seg Neutrophils # Seg Neutrophils # Man PT INR POC ABG pH POC ABG pCO2 POC ABG pO2 Sodium Potassium Chloride Carbon Dioxide BUN Creatinine Glucose POC Glucose 139 H 151 H 184 H Lactic Acid Calcium Magnesium Total Bilirubin AST ALT Alkaline Phosphatase Ammonia Troponin T C-Reactive Protein Total Protein Albumin Prealbumin TSH Crossmatch 09/25/16 09/25/16 09/25/16 09:48 09:48 13:47 WBC RBC 2.76 L Hgb 8.7 L Hct 26.2 L MCV MCH MCHC RDW 17.3 H Plt Count [place] % (Auto) [place] # Seg Neutrophils % Seg Neuts % (Manual) Nucleated RBC % Seg Neutrophils # Seg Neutrophils # Man PT INR POC ABG pH POC ABG pCO2 POC ABG pO2 Sodium 150 H Potassium Chloride 115.6 H Carbon Dioxide BUN 34 H Creatinine 0.4 L Glucose 168 H POC Glucose 167 H Lactic Acid Calcium 7.9 L Magnesium Total Bilirubin AST ALT Alkaline Phosphatase Ammonia Troponin T C-Reactive Protein Total Protein Albumin Prealbumin TSH Crossmatch 09/25/16 09/25/16 09/26/16 17:57 21:44 00:05 WBC RBC Hgb Hct MCV MCH MCHC RDW Plt Count [place] % (Auto) [place] # Seg Neutrophils % Seg Neuts % (Manual) Nucleated RBC % Seg Neutrophils # Seg Neutrophils # Cristian PT INR POC ABG pH POC ABG pCO2 POC ABG pO2 Sodium Potassium Chloride Carbon Dioxide BUN Creatinine Glucose POC Glucose 206 H 188 H 188 H Lactic Acid Calcium Magnesium Total Bilirubin AST ALT Alkaline Phosphatase Ammonia Troponin T C-Reactive Protein Total Protein Albumin Prealbumin TSH Crossmatch 09/26/16 09/26/16 09/26/16 01:29 03:46 03:46 WBC RBC 2.76 L Hgb 8.6 L Hct 26.2 L MCV MCH MCHC RDW 18.2 H Plt Count [place] % (Auto) [place] # Seg Neutrophils % Seg Neuts % (Manual) Nucleated RBC % Seg Neutrophils # Seg Neutrophils # Man PT INR POC ABG pH POC ABG pCO2 POC ABG pO2 Sodium 147 H Potassium Chloride 114.1 H Carbon Dioxide BUN 28 H Creatinine 0.4 L Glucose 172 H POC Glucose 198 H Lactic Acid Calcium 7.6 L Magnesium Total Bilirubin AST ALT Alkaline Phosphatase Ammonia Troponin T C-Reactive Protein Total Protein Albumin Prealbumin TSH Crossmatch 09/26/16 09/26/16 09/26/16 08:08 12:39 16:56 WBC RBC Hgb Hct MCV MCH MCHC RDW Plt Count [place] % (Auto) [place] # Seg Neutrophils % Seg Neuts % (Manual) Nucleated RBC % Seg Neutrophils # Seg Neutrophils # Man PT INR POC ABG pH POC ABG pCO2 POC ABG pO2 Sodium Potassium Chloride Carbon Dioxide BUN Creatinine Glucose POC Glucose 161 H 176 H 128 H Lactic Acid Calcium Magnesium Total Bilirubin AST ALT Alkaline Phosphatase Ammonia Troponin T C-Reactive Protein Total Protein Albumin Prealbumin TSH Crossmatch 09/26/16 09/27/16 09/27/16 21:33 06:31 07:23 WBC RBC Hgb Hct MCV MCH MCHC RDW Plt Count [place] % (Auto) [place] # Seg Neutrophils % Seg Neuts % (Manual) Nucleated RBC % Seg Neutrophils # Seg Neutrophils # Man PT INR POC ABG pH POC ABG pCO2 POC ABG pO2 Sodium Potassium Chloride Carbon Dioxide BUN Creatinine Glucose POC Glucose 120 H 209 H 173 H Lactic Acid Calcium Magnesium Total Bilirubin AST ALT Alkaline Phosphatase Ammonia Troponin T C-Reactive Protein Total Protein Albumin Prealbumin TSH Crossmatch 09/27/16 09/27/16 09/27/16 11:31 17:22 20:41 WBC RBC Hgb Hct MCV MCH MCHC RDW Plt Count [place] % (Auto) [place] # Seg Neutrophils % Seg Neuts % (Manual) Nucleated RBC % Seg Neutrophils # Seg Neutrophils # Man PT INR POC ABG pH POC ABG pCO2 POC ABG pO2 Sodium Potassium Chloride Carbon Dioxide BUN Creatinine Glucose POC Glucose 185 H 167 H 185 H Lactic Acid Calcium Magnesium Total Bilirubin AST ALT Alkaline Phosphatase Ammonia Troponin T C-Reactive Protein Total Protein Albumin Prealbumin TSH Crossmatch 09/28/16 09/28/16 09/28/16 00:30 04:00 04:00 WBC RBC 3.00 L Hgb 9.4 L Hct 28.7 L MCV MCH MCHC RDW 19.1 H Plt Count [place] % (Auto) [place] # Seg Neutrophils % Seg Neuts % (Manual) Nucleated RBC % Seg Neutrophils # Seg Neutrophils # Man PT INR POC ABG pH POC ABG pCO2 POC ABG pO2 Sodium Potassium Chloride 110.5 H Carbon Dioxide BUN 24 H Creatinine 0.3 L Glucose 214 H POC Glucose 159 H Lactic Acid Calcium 7.9 L Magnesium Total Bilirubin AST ALT Alkaline Phosphatase Ammonia Troponin T C-Reactive Protein Total Protein Albumin Prealbumin TSH Crossmatch 09/28/16 09/28/16 09/28/16 04:12 09:58 15:15 WBC RBC Hgb Hct MCV MCH MCHC RDW Plt Count [place] % (Auto) [place] # Seg Neutrophils % Seg Neuts % (Manual) Nucleated RBC % Seg Neutrophils # Seg Neutrophils # Man PT INR POC ABG pH POC ABG pCO2 POC ABG pO2 Sodium Potassium Chloride Carbon Dioxide BUN Creatinine Glucose POC Glucose 209 H 191 H 162 H Lactic Acid Calcium Magnesium Total Bilirubin AST ALT Alkaline Phosphatase Ammonia Troponin T C-Reactive Protein Total Protein Albumin Prealbumin TSH Crossmatch 09/28/16 09/28/16 09/29/16 17:58 21:38 02:38 WBC RBC Hgb Hct MCV MCH MCHC RDW Plt Count [place] % (Auto) [place] # Seg Neutrophils % Seg Neuts % (Manual) Nucleated RBC % Seg Neutrophils # Seg Neutrophils # Man PT INR POC ABG pH POC ABG pCO2 POC ABG pO2 Sodium Potassium Chloride Carbon Dioxide BUN Creatinine Glucose POC Glucose 174 H 162 H 180 H Lactic Acid Calcium Magnesium Total Bilirubin AST ALT Alkaline Phosphatase Ammonia Troponin T C-Reactive Protein Total Protein Albumin Prealbumin TSH Crossmatch 09/29/16 09/29/16 09/29/16 05:16 10:24 14:37 WBC RBC Hgb Hct MCV MCH MCHC RDW Plt Count [place] % (Auto) [place] # Seg Neutrophils % Seg Neuts % (Manual) Nucleated RBC % Seg Neutrophils # Seg Neutrophils # Man PT INR POC ABG pH POC ABG pCO2 POC ABG pO2 Sodium Potassium Chloride Carbon Dioxide BUN Creatinine Glucose POC Glucose 152 H 182 H 190 H Lactic Acid Calcium Magnesium Total Bilirubin AST ALT Alkaline Phosphatase Ammonia Troponin T C-Reactive Protein Total Protein Albumin Prealbumin TSH Crossmatch 09/29/16 09/29/16 09/30/16 17:30 21:39 01:45 WBC RBC Hgb Hct MCV MCH MCHC RDW Plt Count [place] % (Auto) [place] # Seg Neutrophils % Seg Neuts % (Manual) Nucleated RBC % Seg Neutrophils # Seg Neutrophils # Man PT INR POC ABG pH POC ABG pCO2 POC ABG pO2 Sodium Potassium Chloride Carbon Dioxide BUN Creatinine Glucose POC Glucose 192 H 219 H 210 H Lactic Acid Calcium Magnesium Total Bilirubin AST ALT Alkaline Phosphatase Ammonia Troponin T C-Reactive Protein Total Protein Albumin Prealbumin TSH Crossmatch 09/30/16 09/30/16 09/30/16 05:02 07:42 08:30 WBC RBC Hgb Hct MCV MCH MCHC RDW Plt Count [place] % (Auto) [place] # Seg Neutrophils % Seg Neuts % (Manual) Nucleated RBC % Seg Neutrophils # Seg Neutrophils # Man PT INR POC ABG pH POC ABG pCO2 POC ABG pO2 Sodium Potassium 3.5 L Chloride 108.5 H Carbon Dioxide BUN 22 H Creatinine 0.4 L Glucose 223 H POC Glucose 148 H 227 H Lactic Acid Calcium 7.8 L Magnesium 1.50 L Total Bilirubin AST ALT Alkaline Phosphatase Ammonia Troponin T C-Reactive Protein Total Protein Albumin Prealbumin TSH Crossmatch 09/30/16 09/30/16 09/30/16 11:48 15:21 18:06 WBC RBC Hgb Hct MCV MCH MCHC RDW Plt Count [place] % (Auto) [place] # Seg Neutrophils % Seg Neuts % (Manual) Nucleated RBC % Seg Neutrophils # Seg Neutrophils # Man PT INR POC ABG pH POC ABG pCO2 POC ABG pO2 Sodium Potassium Chloride Carbon Dioxide BUN Creatinine Glucose POC Glucose 286 H 281 H 194 H Lactic Acid Calcium Magnesium Total Bilirubin AST ALT Alkaline Phosphatase Ammonia Troponin T C-Reactive Protein Total Protein Albumin Prealbumin TSH Crossmatch 09/30/16 10/01/16 10/01/16 21:23 03:27 05:36 WBC RBC Hgb Hct MCV MCH MCHC RDW Plt Count [place] % (Auto) [place] # Seg Neutrophils % Seg Neuts % (Manual) Nucleated RBC % Seg Neutrophils # Seg Neutrophils # Man PT INR POC ABG pH POC ABG pCO2 POC ABG pO2 Sodium Potassium Chloride Carbon Dioxide BUN Creatinine Glucose POC Glucose 117 H 161 H 160 H Lactic Acid Calcium Magnesium Total Bilirubin AST ALT Alkaline Phosphatase Ammonia Troponin T C-Reactive Protein Total Protein Albumin Prealbumin TSH Crossmatch 10/01/16 10/01/16 10/01/16 08:35 08:35 11:06 WBC 11.7 H RBC 2.75 L Hgb 8.5 L Hct 26.5 L MCV MCH MCHC RDW 21.0 H Plt Count [place] % (Auto) 11.7 H [place] # 1.4 H Seg Neutrophils % Seg Neuts % (Manual) Nucleated RBC % Seg Neutrophils # 7.8 H Seg Neutrophils # Man PT INR POC ABG pH POC ABG pCO2 POC ABG pO2 Sodium Potassium Chloride 108.0 H Carbon Dioxide BUN 20 H Creatinine 0.4 L Glucose 137 H POC Glucose 160 H Lactic Acid Calcium 7.9 L Magnesium Total Bilirubin AST ALT Alkaline Phosphatase Ammonia Troponin T C-Reactive Protein Total Protein Albumin Prealbumin TSH Crossmatch 10/01/16 10/01/16 10/01/16 11:50 13:47 17:40 WBC RBC Hgb Hct MCV MCH MCHC RDW Plt Count [place] % (Auto) [place] # Seg Neutrophils % Seg Neuts % (Manual) Nucleated RBC % Seg Neutrophils # Seg Neutrophils # Man PT INR POC ABG pH POC ABG pCO2 POC ABG pO2 Sodium Potassium Chloride Carbon Dioxide BUN Creatinine Glucose POC Glucose 142 H 151 H 163 H Lactic Acid Calcium Magnesium Total Bilirubin AST ALT Alkaline Phosphatase Ammonia Troponin T C-Reactive Protein Total Protein Albumin Prealbumin TSH Crossmatch 10/01/16 10/02/16 10/02/16 22:02 02:03 06:21 WBC RBC Hgb Hct MCV MCH MCHC RDW Plt Count [place] % (Auto) [place] # Seg Neutrophils % Seg Neuts % (Manual) Nucleated RBC % Seg Neutrophils # Seg Neutrophils # Man PT INR POC ABG pH POC ABG pCO2 POC ABG pO2 Sodium Potassium Chloride Carbon Dioxide BUN Creatinine Glucose POC Glucose 179 H 144 H 153 H Lactic Acid Calcium Magnesium Total Bilirubin AST ALT Alkaline Phosphatase Ammonia Troponin T C-Reactive Protein Total Protein Albumin Prealbumin TSH Crossmatch 10/02/16 10/02/16 10/02/16 09:34 10:16 14:21 WBC RBC Hgb Hct MCV MCH MCHC RDW Plt Count [place] % (Auto) [place] # Seg Neutrophils % Seg Neuts % (Manual) Nucleated RBC % Seg Neutrophils # Seg Neutrophils # Man PT INR POC ABG pH POC ABG pCO2 POC ABG pO2 Sodium Potassium Chloride Carbon Dioxide BUN Creatinine Glucose POC Glucose 206 H 170 H 166 H Lactic Acid Calcium Magnesium Total Bilirubin AST ALT Alkaline Phosphatase Ammonia Troponin T C-Reactive Protein Total Protein Albumin Prealbumin TSH Crossmatch 10/02/16 10/02/16 10/03/16 17:29 21:30 01:47 WBC RBC Hgb Hct MCV MCH MCHC RDW Plt Count [place] % (Auto) [place] # Seg Neutrophils % Seg Neuts % (Manual) Nucleated RBC % Seg Neutrophils # Seg Neutrophils # Man PT INR POC ABG pH POC ABG pCO2 POC ABG pO2 Sodium Potassium Chloride Carbon Dioxide BUN Creatinine Glucose POC Glucose 150 H 147 H 191 H Lactic Acid Calcium Magnesium Total Bilirubin AST ALT Alkaline Phosphatase Ammonia Troponin T C-Reactive Protein Total Protein Albumin Prealbumin TSH Crossmatch 10/03/16 05:13 WBC RBC Hgb Hct MCV MCH MCHC RDW Plt Count [place] % (Auto) [place] # Seg Neutrophils % Seg Neuts % (Manual) Nucleated RBC % Seg Neutrophils # Seg Neutrophils # Man PT INR POC ABG pH POC ABG pCO2 POC ABG pO2 Sodium Potassium Chloride Carbon Dioxide BUN Creatinine Glucose POC Glucose 165 H Lactic Acid Calcium Magnesium Total Bilirubin AST ALT Alkaline Phosphatase Ammonia Troponin T C-Reactive Protein Total Protein Albumin Prealbumin TSH Crossmatch Allied health notes reviewed: RT
[2016-10-03] MEDS: FERROUS SULFATE PO SCH (10:16)
[2016-10-03] MEDS: KEPPRA PO SCH ×2 (10:16→22:07)
[2016-10-03] MEDS: POTASSIUM CHLORIDE FEEDTUBE SCH (10:17)
[2016-10-03] MEDS: PROTONIX PO SCH (10:17)
[2016-10-03] MEDS: SYNTHROID PO SCH (10:17)
[2016-10-03] MEDS: LEVEMIR SUB-Q SCH (10:17)
[2016-10-03] MEDS: FOLVITE PO SCH (10:17)
--- NOTE | 2016-10-03 11:47 | Progress Note ---
Assessment and Plan 1. Respiratory failure status post tracheostomy 2. Encephalopathy 3. Type 2 diabetes mellitus 4. Obesity 5. Atrial fibrillation Plan. Continue present management. Subjective Date of service: 10/03/16 Principal diagnosis: Acute Hypoxemic Hypercapnic Resp Failure; Severe Sepsis Interval history: Intubated and sedated Objective Vital Signs Temp Pulse Pulse Pulse Resp Resp BP 10/03/16 10:00 84 31 H 139/66 10/03/16 09:13 80 30 H 10/03/16 09:00 82 30 H 140/81 10/03/16 08:28 80 30 H 10/03/16 08:21 82 132/58 10/03/16 08:00 97.5 F L 68 26 H 132/58 10/03/16 07:00 78 26 H 121/57 10/03/16 06:00 84 32 H 134/56 10/03/16 05:01 85 23 141/64 10/03/16 04:00 97.6 F 68 25 H 142/66 10/03/16 03:00 82 27 H 131/76 10/03/16 02:01 79 29 H 126/56 10/03/16 02:00 82 32 H 10/03/16 01:00 80 21 127/64 10/03/16 00:21 98.4 F 10/03/16 00:00 97.4 F L 80 31 H 132/70 10/02/16 23:24 82 99/54 10/02/16 23:00 81 9 L 99/54 10/02/16 22:00 72 25 H 107/58 10/02/16 21:00 71 19 112/58 10/02/16 20:07 79 15 121/50 10/02/16 20:00 97.4 F L 79 26 H 125/57 10/02/16 19:52 85 25 H 10/02/16 19:32 77 119/54 10/02/16 19:31 79 12 10/02/16 19:00 76 13 119/54 10/02/16 18:00 71 10 L 124/65 10/02/16 17:30 73 129/56 10/02/16 17:00 80 29 H 134/61 10/02/16 16:00 97.4 F L 77 25 H 124/59 10/02/16 15:36 82 27 H 10/02/16 15:00 79 25 H 134/64 10/02/16 14:41 83 25 H 10/02/16 14:32 75 124/72 10/02/16 14:29 79 25 H 10/02/16 14:00 84 25 H 135/62 10/02/16 13:00 81 25 H 129/66 10/02/16 12:00 97.6 F 96 H 96 H 26 H 133/69 Pulse Ox 10/03/16 10:00 100 10/03/16 09:13 10/03/16 09:00 99 10/03/16 08:28 10/03/16 08:21 82 L 10/03/16 08:00 99 10/03/16 07:00 99 10/03/16 06:00 99 10/03/16 05:01 99 10/03/16 04:00 99 10/03/16 03:00 99 10/03/16 02:01 99 10/03/16 02:00 10/03/16 01:00 100 10/03/16 00:21 10/03/16 00:00 99 10/02/16 23:24 99 10/02/16 23:00 98 10/02/16 22:00 98 10/02/16 21:00 99 10/02/16 20:07 99 10/02/16 20:00 99 10/02/16 19:52 10/02/16 19:32 97 10/02/16 19:31 10/02/16 19:00 99 10/02/16 18:00 99 10/02/16 17:30 98 10/02/16 17:00 99 10/02/16 16:00 99 10/02/16 15:36 99 10/02/16 15:00 99 10/02/16 14:41 10/02/16 14:32 99 10/02/16 14:29 10/02/16 14:00 99 10/02/16 13:00 98 10/02/16 12:00 99 - Physical Examination General: Other (intubated on the vent) HEENT: Positive: PERRL, Normocephaly, Mucus Membranes Moist Neck: Positive: neck supple. Negative: JVD/HJR Cardiac: Positive: Regular Rate, S1/S2, PMI, Laterally Displaced Lungs: Positive: clear to auscultation, No Wheeze, Rales, Rhonchi Neuro: Positive: Other (sedated, on the vent) Abdomen: Positive: Unremarkable, Soft Skin: Positive: Clear Extremities: Present: normal. Absent: edema - Allied health notes Allied health notes reviewed: RT
[2016-10-03] MEDS: ATIVAN IV PRN (14:00)
--- NOTE | 2016-10-03 15:40 | Progress Note ---
Assessment and Plan Assessment and plan: Patient is a 61-year-old morbid obese woman with a history of congestive heart failure, severe protein calorie malnutrition (bilateral buddhist muscle severe wasting, hypothenar muscle wasting) with BMI of 81.6, functional quadriplegia, type 2 diabetes mellitus, hypertension, multiple skin breakdown between legs and thighs who presented to the hospital via EMS with AMS. 2D echocardiogram with ejection fraction of 50-55%. During the past admission, patient was recommended for placement but refused. On presentation to ED, patient was felt to be unable to maintain her airways and intubated the ER since 08/29/16. 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, poa: supportative care -Acute on chronic diastolic congestive heart failure: treated with diuresis -Acute on chronic respiratory failure, intubated > 96 hours -Septic shock off IV solucorticef and midodrine -Severe anemia s/p blood transfusion: monitor cbc closely altered -Paroxysmal atrial fibrillation -Non-ST elevated LA type 2: Conservative management -Acute on chronic kidney disease III, likely secondary to vasomotor nephropathy- POA -Transaminitis-elevated alkaline phosphatase and AST: continue to monitor -Severe protein calorie malnutrition albumin 1.2 -Morbid obesity BMI 81.6 -Mulitple PRESSURE ULCERS-POA: consulted wound care -uncontrolled dm: increased ssi -Acute anemia with drop in HCT s/p 5 units of PRBC transfused so far. Ordered 2 more units. -Levaphed restarted last night 09/20/16 -Unable to get CT head due to weight issues -Dvt prophylaxis: scd only due to the anemia Disposition: LTAC declined, case management is working on plan DNR 09/04/16 , boyfriendTad agreed to blood transfusion, hgb is 6.0 will transfuse 2 units==>h/h steady, continue to monitor 09/05/16: Overnight was very eventful. New issue: Status epilepticus most likely due to anoxic brain injury, poa. She is back on 8 mcg of Levophed, which had weaned off up to the point of seizure activity Patient had status epilepticus before receiving blood transfusions. She was given multiple doses of Ativan and was still having breakthrough seizures. She was given phenobarbital and Dilantin but still having seizures. I started propofol drip which is helping. She still on IV Ativan drip also. Difficult family dynamics: Her son (she has multiple children), Srikanth and sister Leanne were at her bedside and well as her boyfriend who is not her legal , which he told me. They are upset because they didn't know patient was in the hospital. It appears the gentleman in the room is her boyfriend and not her legal He also did not notify the family the patient was here. That gentleman who is her boyfriend dropped the patient's wallet and our security called the number inside the wallet which was patient's mother's number and this is how the family found out that patient was in the hospital. I was told by RN, that patient has no , patient has 7 siblings and they are estranged from mother. No legal POA but sister Leanne is active in sister's life. Her boyfriend name is Tad Vieyra and he has consistently been at her beside, holding her hand and being supportive. 09/10/16 (resumed care): Trying to get to LTAC, still on 2 mcg of Levaphed but not sedated==>?Significant anoxic brain injury most likely poa, Ethic committee consulted because some family members want to withdraw. 09/11/16, Trach aspirated GNR, continue abx pending identification, off levaphed today. Trying to get to LTAC, they can trach her there. Only [facility] takes her insurance 09/12/16 Trach aspirate still pending, new issue of hypothermia, responded to [place], tube feeding low rate due to high residuals, abd xray unremarkable. Potassium replaced. No restraints needs, no sedation needed, poor prognosis 09/15/16(resumed care): new issue seizure, gave 1mg iv ativan x 1. Awaiting to go to [facility], they want to trach and peg when she gets there. 09/16-11/26: cpm, no new seizures. 09/18/16: [facility] did not accept patient, so trach and peg here. Patient has been intubated since 08/29/16. 09/19/16 no new issue, trying to wean 09/20/16: d/w boyfriend at bedside. He believes she is having purposefully spontaneous movements, like blinking. Heart rate went up to 150s but spontaneously went down without any medications given. 09/21/16: Overnight she became hypotensive, Levophed drip restarted at 12mcg, hgb found to be 4.6, blood transfusions ordered, hyperglycemic worse, so Levemir increased, She has apneic breathing on vent, POOR sign, anticipate w/in 48 hours because she will tire out. 09/29/16 Resumed care of Ms. Ashley, she is currently tachycardiac, HR 200s and SBP 70s. She has SVT. Ordered Amiodarone 300mg iv x 1 bolus and nss bolus 500ml and bp improved. Once bolus stopped sbp dropped below 90 again so gave another 500ml ns bolus x 1. Amiodrone iv bolus still pending. Reconsulted Cardiology. He had twitches are back. Given iv ativan last night. Start Amiodarone drip after. May need to re-start Levophed. I have kindly asked nurse to notify CCM also. Patient has lost approximately 85 lbs, hopefully [facility] will re- consider. I believe the seizures are manifestation of anoxic brain injury, poa. Surgeron considering peg/trach on . CCT 40 minutes 09/30/16 She was off Levophed drip this morning. On Amiodarone drip, Cardiology re-called and they are following again. 10/01/16 preop diagnosis - respiratory failure postop diagnosis - same procedure - PEG tube insertion surgeon - Rahul Gamino MD asst - Joseph Brewster MD anesthesia - GETA complications - none procedure - The patient was taken to the operating room. Appropriate preop antibiotics were given. A time out was called. First, an endoscope was used to access and insufflate the stomach. Dr. Brewster accessed the stomach through the anterior abdominal wall with the access needle. To do so, he had to do a laparascopic lysis of adhesions which he will dictate as a separate dictation. Once the stomach was accessed, a guidewire was passed through the access needle. A snare was then passed through the endoscope and was closed around the guidewire. The guidewire was then pulled out through the patient's mouth with the endoscope. A 20F PEG tube was attached to the guidewire and pulled through the stomach and out the anterior abdominal wall. It was secured into place at 7 cm at the anterior abdominal wall. The endoscope was used to see the PEG tube flush with the stomach wall. The patient tolerated the procedure well. Still on Levophed and Amiodarone 10/02/16 still on levophed and amiodarone 10/03/16 still on levophed and amiodarone, still intubated. No sedation and no purposeful movement. History Interval history: Patient seen and examined. Follow up on respiratory failure. Patient still intubated. Hospitalist Physical - Physical exam Narrative exam: GEN: Critically ill, morbid obese BMI 81.6, intubated, apneic breathing==>bmi now 67.3 HEENT: Pupils are pinpoint and reactive, ET tube in place CVS: irregular irregular NORMAL S1S2 LUNGS/CHEST: NORMAL CHEST EXPANSION B, GOOD AIR ENTRY B ABD: SOFT, NONDISTENDED GBS, NO REBOUND OR GUARDING NEURO: doesn't follow commands PSY: Comatose - Constitutional Vitals: Temp Pulse Resp BP Pulse Ox 97.8 F 75 28 H 139/77 100 10/03/16 12:00 10/03/16 15:31 10/03/16 15:00 10/03/16 15:31 10/03/16 15:31 General appearance: Present: obese Results - Labs CBC & Chem 7: 10/01/16 08:35 10/01/16 08:35 Labs: Laboratory Last Values WBC 11.7 K/mm3 (4.5-11.0) H 10/01/16 08:35 RBC 2.75 M/mm3 (3.65-5.03) L 10/01/16 08:35 Hgb 8.5 gm/dl (10.1-14.3) L 10/01/16 08:35 Hct 26.5 % (30.3-42.9) L 10/01/16 08:35 MCV 97 fl (79-97) 10/01/16 08:35 MCH 31 pg (28-32) 10/01/16 08:35 MCHC 32 % (30-34) 10/01/16 08:35 RDW 21.0 % (13.2-15.2) H 10/01/16 08:35 Plt Count 272 K/mm3 (140-440) 10/01/16 08:35 Lymph % (Auto) 19.9 % (13.4-35.0) 10/01/16 08:35 [place] % (Auto) 11.7 % (0.0-7.3) H 10/01/16 08:35 Eos % (Auto) 1.1 % (0.0-4.3) 10/01/16 08:35 Baso % (Auto) 0.4 % (0.0-1.8) 10/01/16 08:35 Lymph # 2.3 K/mm3 (1.2-5.4) 10/01/16 08:35 [place] # 1.4 K/mm3 (0.0-0.8) H 10/01/16 08:35 Eos # 0.1 K/mm3 (0.0-0.4) 10/01/16 08:35 Baso # 0.1 K/mm3 (0.0-0.1) 10/01/16 08:35 Add Manual Diff Complete 09/02/16 05:00 Total Counted 100 09/02/16 05:00 Seg Neutrophils % 66.9 % (40.0-70.0) 10/01/16 08:35 Seg Neuts % (Manual) 72.0 % (40.0-70.0) H 09/02/16 05:00 Band Neutrophils % 9.0 % 09/02/16 05:00 Lymphocytes % (Manual) 15.0 % (13.4-35.0) 09/02/16 05:00 Reactive Lymphs % (Man) 0 % 09/02/16 05:00 Monocytes % (Manual) 4.0 % (0.0-7.3) 09/02/16 05:00 Eosinophils % (Manual) 0 % (0.0-4.3) 09/02/16 05:00 Basophils % (Manual) 0 % (0.0-1.8) 09/02/16 05:00 Metamyelocytes % 0 % 09/02/16 05:00 Myelocytes % 0 % 09/02/16 05:00 Promyelocytes % 0 % 09/02/16 05:00 Blast Cells % 0 % 09/02/16 05:00 Nucleated RBC % 25.0 % (0.0-0.9) H 09/02/16 05:00 Seg Neutrophils # 7.8 K/mm3 (1.8-7.7) H 10/01/16 08:35 Seg Neutrophils # Man 8.9 K/mm3 (1.8-7.7) H 09/02/16 05:00 Band Neutrophils # 1.1 K/mm3 09/02/16 05:00 Lymphocytes # (Manual) 1.8 K/mm3 (1.2-5.4) 09/02/16 05:00 Abs React Lymphs (Man) 0.0 K/mm3 09/02/16 05:00 Monocytes # (Manual) 0.5 K/mm3 (0.0-0.8) 09/02/16 05:00 Eosinophils # (Manual) 0.0 K/mm3 (0.0-0.4) 09/02/16 05:00 Basophils # (Manual) 0.0 K/mm3 (0.0-0.1) 09/02/16 05:00 Metamyelocytes # 0.0 K/mm3 09/02/16 05:00 Myelocytes # 0.0 K/mm3 09/02/16 05:00 Promyelocytes # 0.0 K/mm3 09/02/16 05:00 Blast Cells # 0.0 K/mm3 09/02/16 05:00 WBC Morphology Not Reportable 09/02/16 05:00 Hypersegmented Neuts Not Reportable 09/02/16 05:00 Hyposegmented Neuts Not Reportable 09/02/16 05:00 Hypogranular Neuts Not Reportable 09/02/16 05:00 Smudge Cells Not Reportable 09/02/16 05:00 Toxic Granulation Not Reportable 09/02/16 05:00 Toxic Vacuolation Not Reportable 09/02/16 05:00 Dohle Bodies Not Reportable 09/02/16 05:00 Pelger-Huet Anomaly Not Reportable 09/02/16 05:00 Feli Rods Not Reportable 09/02/16 05:00 Platelet Estimate Consistent w auto 09/02/16 05:00 Clumped Platelets Not Reportable 09/02/16 05:00 Plt Clumps, EDTA Not Reportable 09/02/16 05:00 Large Platelets Not Reportable 09/02/16 05:00 Giant Platelets Not Reportable 09/02/16 05:00 Platelet Satelliting Not Reportable 09/02/16 05:00 Plt Morphology Comment Not Reportable 09/02/16 05:00 RBC Morphology Not Reportable 09/02/16 05:00 Dimorphic RBCs Not Reportable 09/02/16 05:00 Polychromasia Rare 09/02/16 05:00 Hypochromasia Not Reportable 09/02/16 05:00 Poikilocytosis Not Reportable 09/02/16 05:00 Anisocytosis 1+ 09/02/16 05:00 Microcytosis Not Reportable 09/02/16 05:00 Macrocytosis 1+ 09/02/16 05:00 Spherocytes Not Reportable 09/02/16 05:00 Pappenheimer Bodies Not Reportable 09/02/16 05:00 Sickle Cells Not Reportable 09/02/16 05:00 Target Cells Not Reportable 09/02/16 05:00 Tear Drop Cells Not Reportable 09/02/16 05:00 Ovalocytes Not Reportable 09/02/16 05:00 Helmet Cells Not Reportable 09/02/16 05:00 Patterson-Ravena Bodies Not Reportable 09/02/16 05:00 [place] Rings Not Reportable 09/02/16 05:00 Dana Cells Not Reportable 09/02/16 05:00 Bite Cells Not Reportable 09/02/16 05:00 Crenated Cell Not Reportable 09/02/16 05:00 Elliptocytes Not Reportable 09/02/16 05:00 Acanthocytes (Spur) Not Reportable 09/02/16 05:00 Rouleaux Not Reportable 09/02/16 05:00 Hemoglobin C Crystals Not Reportable 09/02/16 05:00 Schistocytes Not Reportable 09/02/16 05:00 Malaria parasites Not Reportable 09/02/16 05:00 Manny Bodies Not Reportable 09/02/16 05:00 Hem Pathologist Commnt No 09/02/16 05:00 PT 14.4 Sec. (12.2-14.9) 09/30/16 17:30 INR 1.13 (0.87-1.13) 09/30/16 17:30 APTT 30.7 Sec. (24.2-36.6) 09/30/16 17:30 POC ABG pH 7.460 (7.35-7.45) H 09/22/16 03:26 POC ABG pCO2 29.9 (35-45) L 09/22/16 03:26 POC ABG pO2 112 (80-105) H 09/22/16 03:26 POC ABG HCO3 21.3 09/22/16 03:26 POC ABG Total CO2 22 09/22/16 03:26 POC ABG O2 Sat 99 09/22/16 03:26 POC ABG Base Excess -3 09/22/16 03:26 VBG pH 7.366 (7.320-7.420) 08/29/16 17:40 FiO2 25 % 09/22/16 03:26 Sodium 140 mmol/L (137-145) 10/01/16 08:35 Potassium 3.7 mmol/L (3.6-5.0) 10/01/16 08:35 Chloride 108.0 mmol/L (98-107) H 10/01/16 08:35 Carbon Dioxide 22 mmol/L (22-30) 10/01/16 08:35 Anion Gap 14 mmol/L 10/01/16 08:35 BUN 20 mg/dL (7-17) H 10/01/16 08:35 Creatinine 0.4 mg/dL (0.7-1.2) L 10/01/16 08:35 Estimated GFR > 60 ml/min 10/01/16 08:35 BUN/Creatinine Ratio 50.00 % 10/01/16 08:35 Glucose 137 mg/dL (65-100) H 10/01/16 08:35 POC Glucose 200 (70-105) H 10/03/16 09:15 Lactic Acid 1.90 mmol/L (0.7-2.0) 09/07/16 15:00 Calcium 7.9 mg/dL (8.4-10.2) L 10/01/16 08:35 Phosphorus 3.60 mg/dL (2.5-4.5) 08/29/16 21:59 Magnesium 1.50 mg/dL (1.7-2.3) L 09/30/16 08:30 Total Bilirubin 0.70 mg/dL (0.1-1.2) 09/11/16 05:00 AST 167 units/L (5-40) H 09/11/16 05:00 ALT 145 units/L (7-56) H 09/11/16 05:00 Alkaline Phosphatase 631 units/L (35-129) H 09/11/16 05:00 Ammonia 39.0 umol/L (25-60) 09/07/16 15:00 Total Creatine Kinase 36 units/L (30-135) 09/06/16 11:07 CK-MB (CK-2) < 1.0 ng/mL (0.0-4.0) 09/06/16 11:07 CK-MB (CK-2) Rel Index 2.7 (0-4) 09/06/16 11:07 Troponin T 0.080 ng/mL (0.00-0.029) H 09/06/16 11:07 C-Reactive Protein 10.20 mg/dL (0.00-1.30) H 08/30/16 22:20 NT-Pro-B Natriuret Pep 1712 pg/mL (0-900) H 08/29/16 17:40 Total Protein 5.1 g/dL (6.3-8.2) L 09/11/16 05:00 Albumin 1.6 g/dL (3.9-5) L 09/11/16 05:00 Albumin/Globulin Ratio 0.5 % 09/11/16 05:00 Prealbumin 0.120 g/L (0.200-0.400) L 08/29/16 21:59 Triglycerides 225 mg/dL (2-149) H 08/29/16 17:40 Cholesterol 130 mg/dL (50-199) 08/29/16 17:40 LDL Cholesterol Direct 82 mg/dL (50-130) 08/29/16 17:40 HDL Cholesterol 3 mg/dL (40-59) L 08/29/16 17:40 Cholesterol/HDL Ratio 43.33 % 08/29/16 17:40 TSH 5.220 mlU/mL (0.270-4.200) H 09/09/16 18:10 Urine Color Yellow (Yellow) 08/31/16 15:37 Urine Turbidity Clear (Clear) 08/31/16 15:37 Urine pH 5.0 (5.0-7.0) 08/31/16 15:37 Ur Specific [place] 1.009 (1.003-1.030) 08/31/16 15:37 Urine Protein <15 mg/dl mg/dL (Negative) 08/31/16 15:37 Urine Glucose (UA) Neg mg/dL (Negative) 08/31/16 15:37 Urine Ketones Neg mg/dL (Negative) 08/31/16 15:37 Urine Blood Sm (Negative) 08/31/16 15:37 Urine Nitrite Neg (Negative) 08/31/16 15:37 Urine Bilirubin Neg (Negative) 08/31/16 15:37 Urine Urobilinogen < 2.0 mg/dL (<2.0) 08/31/16 15:37 Ur Leukocyte Esterase Sm (Negative) 08/31/16 15:37 Urine WBC (Auto) 3.0 /HPF (0.0-6.0) 08/31/16 15:37 Urine RBC (Auto) 1.0 /HPF (0.0-6.0) 08/31/16 15:37 U Epithel Cells (Auto) < 1.0 /HPF (0-13.0) 08/31/16 15:37 Urine Bacteria (Auto) 1+ /HPF (Negative) 08/31/16 15:37 Hyaline Casts 5 /LPF 08/31/16 15:37 Urine Mucus Few /HPF 08/31/16 15:37 Blood Type O POSITIVE 09/21/16 08:20 Antibody Screen TNR 09/21/16 08:20 PATRICK Antibody Screen Negative 09/21/16 08:20 Crossmatch See Detail 09/21/16 08:20
[2016-10-04] MEDS: NOVOLOG SUB-Q SCH ×7 (00:51→23:27)
[2016-10-04] MEDS: DUONEB 0.5 MG-3 MG/3 ML SOLN IH SCH ×4 (01:45→19:26)
[2016-10-04] MEDS: CORDARONE 900 MG in D5W 482 ML IV SCH (06:43)
[2016-10-04] MEDS: PROAMATINE PO SCH ×3 (06:48→23:27)
[2016-10-04 08:51] LABS: Hematocrit 25.7 % (30.3-42.9); Hemoglobin 8.2 gm/dl (10.1-14.3); Mean Corpuscular HGB Conc 32 % (30-34); Mean Corpuscular Hemoglobin 30 pg (28-32); Mean Corpuscular Volume 95 fl (79-97); Platelet Count 287 K/mm3 (140-440); White Blood Count 14.6 K/mm3 (4.5-11.0)
[2016-10-04 08:57] LABS: Anion Gap 17 mmol/L; Blood Urea Nitrogen 18 mg/dL (7-17); Calcium 8.2 mg/dL (8.4-10.2); Carbon Dioxide 21 mmol/L (22-30); Chloride 106.3 mmol/L (98-107); Glucose 159 mg/dL (65-100); Potassium 3.8 mmol/L (3.6-5.0); Sodium 140 mmol/L (137-145)
[2016-10-04] MEDS: POTASSIUM CHLORIDE FEEDTUBE SCH (10:10)
[2016-10-04] MEDS: FOLVITE PO SCH (10:10)
[2016-10-04] MEDS: PROTONIX PO SCH (10:11)
[2016-10-04] MEDS: KEPPRA PO SCH ×2 (10:11→23:27)
[2016-10-04] MEDS: FERROUS SULFATE PO SCH (10:11)
[2016-10-04] MEDS: LEVEMIR SUB-Q SCH (10:12)
[2016-10-04] MEDS: SYNTHROID PO SCH (10:16)
--- NOTE | 2016-10-04 11:09 | Progress Note ---
Assessment and Plan 1. Respiratory failure status post tracheostomy 2. Encephalopathy 3. Type 2 diabetes mellitus 4. Obesity 5. Atrial fibrillation Plan. Continue present management. Subjective Date of service: 10/04/16 Principal diagnosis: Acute Hypoxemic Hypercapnic Resp Failure; Severe Sepsis Interval history: Intubated and sedated Objective Vital Signs Temp Pulse Pulse Pulse Resp Resp BP 10/04/16 10:15 10/04/16 08:00 98 F 75 25 H 123/52 10/04/16 07:38 95 H 25 H 10/04/16 07:28 79 81 25 H 130/55 10/04/16 07:00 99 F 80 30 H 130/55 10/04/16 06:00 73 31 H 137/67 10/04/16 05:00 89 28 H 131/66 10/04/16 04:41 71 131/66 10/04/16 04:00 92.8 F L 76 33 H 133/68 10/04/16 03:00 77 30 H 141/73 10/04/16 02:00 71 78 25 H 29 H 141/79 10/04/16 01:45 77 29 H 10/04/16 01:00 76 35 H 117/69 10/04/16 00:00 78 34 H 137/71 10/03/16 23:35 78 135/94 10/03/16 23:32 76 32 H 133/78 10/03/16 23:10 10/03/16 23:00 82 20 135/94 10/03/16 22:00 78 17 136/64 10/03/16 21:00 68 25 H 122/67 10/03/16 20:00 96.8 F L 74 75 28 H 133/61 10/03/16 19:35 72 28 H 10/03/16 19:21 77 144/75 10/03/16 19:20 69 28 H 10/03/16 19:00 78 32 H 144/75 10/03/16 18:00 75 33 H 129/87 10/03/16 17:00 67 28 H 139/79 10/03/16 16:00 97.6 F 65 26 H 137/73 10/03/16 15:31 75 139/77 10/03/16 15:00 70 63 32 H 28 H 139/77 10/03/16 14:37 10/03/16 14:20 71 31 H 06/24/17 14:00 73 31 H 141/74 10/03/16 13:00 65 26 H 147/71 10/03/16 12:00 97.8 F 73 29 H 140/56 10/03/16 11:46 72 133/59 Pulse Ox Pulse Ox 10/04/16 10:15 100 10/04/16 08:00 98 10/04/16 07:38 10/04/16 07:28 100 10/04/16 07:00 100 10/04/16 06:00 10/04/16 05:00 10/04/16 04:41 99 10/04/16 04:00 99 10/04/16 03:00 100 10/04/16 02:00 100 10/04/16 01:45 10/04/16 01:00 10/04/16 00:00 10/03/16 23:35 99 10/03/16 23:32 100 10/03/16 23:10 100 10/03/16 23:00 10/03/16 22:00 99 10/03/16 21:00 10/03/16 20:00 10/03/16 19:35 10/03/16 19:21 100 10/03/16 19:20 10/03/16 19:00 99 10/03/16 18:00 100 10/03/16 17:00 10/03/16 16:00 100 10/03/16 15:31 100 10/03/16 15:00 100 10/03/16 14:37 100 10/03/16 14:20 10/03/16 14:00 100 10/03/16 13:00 100 10/03/16 12:00 99 10/03/16 11:46 100 - Physical Examination General: Other (intubated on the vent) HEENT: Positive: PERRL, Normocephaly, Mucus Membranes Moist Neck: Positive: neck supple. Negative: JVD/HJR Cardiac: Positive: Regular Rate, S1/S2, PMI, Laterally Displaced. Negative: S3 Lungs: Positive: No Wheeze, Rales, Rhonchi Neuro: Positive: Other (sedated, on the vent) Abdomen: Positive: Unremarkable, Soft Skin: Positive: Clear Extremities: Present: normal. Absent: edema - Labs and Meds CBC 10/04/16 Range/Units 08:00 WBC 14.6 H (4.5-11.0) K/mm3 RBC 2.70 L (3.65-5.03) M/mm3 Hgb 8.2 L (10.1-14.3) gm/dl Hct 25.7 L (30.3-42.9) % Plt Count 287 (140-440) K/mm3 Comprehensive Metabolic Panel 10/04/16 Range/Units 08:00 Sodium 140 (137-145) mmol/L Potassium 3.8 (3.6-5.0) mmol/L Chloride 106.3 (98-107) mmol/L Carbon Dioxide 21 L (22-30) mmol/L BUN 18 H (7-17) mg/dL Creatinine 0.5 L (0.7-1.2) mg/dL Glucose 159 H (65-100) mg/dL Calcium 8.2 L (8.4-10.2) mg/dL - Allied health notes Allied health notes reviewed: RT
--- NOTE | 2016-10-04 12:53 | Progress Note ---
Assessment and Plan - Patient Problems (1) Respiratory failure Current Visit: Yes Status: Acute Qualifiers: Chronicity: C Respiratory failure complication: R Plan to address problem: Currently on mechanical ventilatory support AC-VC at night and pressure support during the day VAP bundle addressed Wean FIO2 for O2 sats>92% HOB>40, aspiration precautions VTE prophylaxis- discontinue enoxaparin in view of anemia and use SCDs Stress ulcer prophylaxis- Pantoprazole Lung protective strategies s/p Tracheostomy Routine trach care by RT Jose catheter in this extremely obese, critically ill patient Continue with enteric feedings, monitor accucheck (2) Shock Current Visit: Yes Status: Acute Plan to address problem: Treated as septic shock secondary to HCAP -resolved (3) Acute on chronic diastolic (congestive) heart failure Current Visit: No Status: Acute (4) Altered mental status Current Visit: Yes Status: Acute Qualifiers: Altered mental status type: unspecified Coma depth: C Coma timing: C Qualified Code(s): R41.82 - Altered mental status, unspecified Plan to address problem: Continue to monitor (5) Morbid obesity Current Visit: Yes Status: Acute Qualifiers: Obesity type: unspecified obesity type Qualified Code(s): E66.01 - Morbid ( severe) obesity due to excess calories (6) Anemia Current Visit: Yes Status: Acute Qualifiers: Anemia type: unspecified type Iron deficiency anemia type: I Vitamin B12 deficiency anemia type: V Folate deficiency anemia type: F Bone marrow failure anemia type: B Hemolytic anemia type: H Other causes of anemia: O Chronic kidney disease stage: C Qualified Code(s): D64.9 - Anemia, unspecified Plan to address problem: Continue to monitor. CBC prn Supportive transfusions (7) Status epilepticus Current Visit: Yes Status: Acute Plan to address problem: Continue AEDs Unable to get neuro-imaging secondary to her weight Neurology following (8) Discharge planning issues Current Visit: Yes Status: Acute Plan to address problem: Continue current care. AND/DNR LTACH placement when a bed becomes available. s/p PEG/Tracheostomy (9) Atrial fibrillation Current Visit: No Status: Chronic Qualifiers: Atrial fibrillation type: A Plan to address problem: Rate controlled on amiodarone infusion. cardiology following (10) Hypothermia Current Visit: Yes Status: Acute Qualifiers: Encounter type: E Plan to address problem: Monitor closely and also monitor leukocytosis. Get urine cultures and blood cultures as this could be a harbinger of gram negative sepsis. Subjective Principal diagnosis: Acute Hypoxemic Hypercapnic Resp Failure; Severe Sepsis Interval history: Remains orally intubated. Seen and examined. Vitals, labs, medications, chart and imaging reviewed. Waas hypothermic over night and external warming was initiated Patient is now DNR in the event of cardiopulmonary arrest s/p Tracheostomy and PEG Tolerating spontaneous breathing trials during the day and full support at night. PS10/5, with tidal volumes of 340 AC/VC 25/400/5/25% Objective Vital Signs - 12hr 10/04/16 10/04/16 10/04/16 01:00 01:45 02:00 Temperature Pulse Rate 76 71 Pulse Rate [ 77 78 Anterior Bilateral Throughout] Respiratory 35 H 25 H Rate Respiratory 29 H 29 H Rate [Anterior Bilateral Throughout] Blood Pressure 117/69 141/79 O2 Sat by Pulse 100 100 Oximetry O2 Sat by Pulse Oximetry [ Assessment] 10/04/16 10/04/16 10/04/16 03:00 04:00 04:41 Temperature 92.8 F L Pulse Rate 77 76 71 Pulse Rate [ Anterior Bilateral Throughout] Respiratory 30 H 33 H Rate Respiratory Rate [Anterior Bilateral Throughout] Blood Pressure 141/73 133/68 131/66 O2 Sat by Pulse 100 99 99 Oximetry O2 Sat by Pulse Oximetry [ Assessment] 10/04/16 10/04/16 10/04/16 05:00 06:00 07:00 Temperature 99 F Pulse Rate 89 73 80 Pulse Rate [ Anterior Bilateral Throughout] Respiratory 28 H 31 H 30 H Rate Respiratory Rate [Anterior Bilateral Throughout] Blood Pressure 131/66 137/67 130/55 O2 Sat by Pulse 100 100 Oximetry O2 Sat by Pulse Oximetry [ Assessment] 10/04/16 10/04/16 10/04/16 07:28 07:38 08:00 Temperature 98 F Pulse Rate 79 75 Pulse Rate [ 81 95 H Anterior Bilateral Throughout] Respiratory 25 H Rate Respiratory 25 H 25 H Rate [Anterior Bilateral Throughout] Blood Pressure 130/55 123/52 O2 Sat by Pulse 100 98 Oximetry O2 Sat by Pulse Oximetry [ Assessment] 10/04/16 10/04/16 10/04/16 10:15 11:59 12:20 Temperature 99 F Pulse Rate 96 H Pulse Rate [ Anterior Bilateral Throughout] Respiratory 37 H Rate Respiratory Rate [Anterior Bilateral Throughout] Blood Pressure 108/45 O2 Sat by Pulse 98 Oximetry O2 Sat by Pulse 100 Oximetry [ Assessment] Constitutional: no acute distress, other (encephalopathic) Eyes: non-icteric ENT: oropharynx moist, other (s/p tracheostomy) Neck: supple, no lymphadenopathy Effort: normal, mildly labored Ascultation: Bilateral: clear, diminished breath sounds, rales (bases) Cardiovascular: irregular rhythm Gastrointestinal: normoactive bowel sounds, hypoactive bowel sounds, soft, non- tender, non-distended, other (s/p PEG- clean and dry site. No signs of inflammation) Integumentary: normal, erythema (thighs with induration) Extremities: no cyanosis, pulses normal, no ischemia or petechiae, edema (1++) Neurologic: unable to assess, other (encephalopathic) Psychiatric: other (unable to assess) CBC and BMP: 10/04/16 08:00 10/04/16 08:00 ABG, PT/INR, D-dimer: ABG POC ABG pH 7.460 (7.35-7.45) H 09/22/16 03:26 POC ABG pCO2 29.9 (35-45) L 09/22/16 03:26 POC ABG pO2 112 (80-105) H 09/22/16 03:26 POC ABG HCO3 21.3 09/22/16 03:26 POC ABG Total CO2 22 09/22/16 03:26 POC ABG O2 Sat 99 09/22/16 03:26 PT/INR, D-dimer PT 14.4 Sec. (12.2-14.9) 09/30/16 17:30 INR 1.13 (0.87-1.13) 09/30/16 17:30 Abnormal lab findings: Abnormal Labs 08/29/16 08/30/16 08/30/16 21:59 00:16 05:39 WBC RBC Hgb Hct MCV MCH MCHC RDW Plt Count [place] % (Auto) [place] # Seg Neutrophils % Seg Neuts % (Manual) Nucleated RBC % Seg Neutrophils # Seg Neutrophils # Man PT INR POC ABG pH POC ABG pCO2 POC ABG pO2 Sodium Potassium Chloride Carbon Dioxide BUN Creatinine Glucose POC Glucose 106 H 128 H Lactic Acid Calcium Magnesium Total Bilirubin AST ALT Alkaline Phosphatase Ammonia Troponin T C-Reactive Protein Total Protein Albumin Prealbumin 0.120 L TSH Crossmatch 08/30/16 08/30/16 08/30/16 10:30 10:30 11:12 WBC 11.1 H RBC 3.16 L Hgb 8.7 L Hct 29.9 L MCV MCH MCHC 29 L RDW 25.0 H Plt Count [place] % (Auto) [place] # Seg Neutrophils % 78.6 H Seg Neuts % (Manual) Nucleated RBC % Seg Neutrophils # 8.7 H Seg Neutrophils # Man PT INR POC ABG pH POC ABG pCO2 POC ABG pO2 Sodium 135 L Potassium Chloride Carbon Dioxide 20 L BUN Creatinine 1.5 H Glucose 148 H POC Glucose 142 H Lactic Acid Calcium 7.2 L Magnesium Total Bilirubin 1.30 H AST 143 H ALT Alkaline Phosphatase 392 H Ammonia Troponin T C-Reactive Protein Total Protein 6.1 L Albumin 1.2 L Prealbumin TSH Crossmatch 08/30/16 08/30/16 08/30/16 17:41 18:03 18:18 WBC RBC Hgb Hct MCV MCH MCHC RDW Plt Count [place] % (Auto) [place] # Seg Neutrophils % Seg Neuts % (Manual) Nucleated RBC % Seg Neutrophils # Seg Neutrophils # Man PT INR POC ABG pH 7.316 L POC ABG pCO2 POC ABG pO2 44 L 59 L Sodium Potassium Chloride Carbon Dioxide BUN Creatinine Glucose POC Glucose 150 H Lactic Acid Calcium Magnesium Total Bilirubin AST ALT Alkaline Phosphatase Ammonia Troponin T C-Reactive Protein Total Protein Albumin Prealbumin TSH Crossmatch 08/30/16 08/30/16 08/31/16 22:20 22:20 00:11 WBC RBC Hgb Hct MCV MCH MCHC RDW Plt Count [place] % (Auto) [place] # Seg Neutrophils % Seg Neuts % (Manual) Nucleated RBC % Seg Neutrophils # Seg Neutrophils # Man PT INR POC ABG pH POC ABG pCO2 POC ABG pO2 Sodium Potassium Chloride Carbon Dioxide BUN Creatinine Glucose POC Glucose 133 H Lactic Acid 2.30 H* Calcium Magnesium Total Bilirubin AST ALT Alkaline Phosphatase Ammonia Troponin T C-Reactive Protein 10.20 H Total Protein Albumin Prealbumin TSH Crossmatch 08/31/16 08/31/16 08/31/16 04:20 04:20 04:20 WBC 18.3 H RBC 3.19 L Hgb 8.8 L Hct 30.0 L MCV MCH 27 L MCHC 29 L RDW 23.9 H Plt Count [place] % (Auto) [place] # Seg Neutrophils % Seg Neuts % (Manual) Nucleated RBC % Seg Neutrophils # Seg Neutrophils # Cristian PT 16.8 H INR 1.37 H POC ABG pH POC ABG pCO2 POC ABG pO2 Sodium 136 L Potassium Chloride Carbon Dioxide 19 L BUN Creatinine 1.5 H Glucose 125 H POC Glucose Lactic Acid Calcium 7.0 L Magnesium Total Bilirubin 1.50 H AST 131 H ALT Alkaline Phosphatase 431 H Ammonia Troponin T C-Reactive Protein Total Protein 6.2 L Albumin 1.2 L Prealbumin TSH Crossmatch 08/31/16 08/31/16 08/31/16 04:20 05:22 05:24 WBC RBC Hgb Hct MCV MCH MCHC RDW Plt Count [place] % (Auto) [place] # Seg Neutrophils % Seg Neuts % (Manual) Nucleated RBC % Seg Neutrophils # Seg Neutrophils # Cristian PT INR POC ABG pH POC ABG pCO2 POC ABG pO2 142 H Sodium Potassium Chloride Carbon Dioxide BUN Creatinine Glucose POC Glucose 123 H Lactic Acid Calcium Magnesium Total Bilirubin AST ALT Alkaline Phosphatase Ammonia 70.0 H Troponin T C-Reactive Protein Total Protein Albumin Prealbumin TSH Crossmatch 08/31/16 08/31/16 08/31/16 12:10 15:45 17:38 WBC RBC Hgb Hct MCV MCH MCHC RDW Plt Count [place] % (Auto) [place] # Seg Neutrophils % Seg Neuts % (Manual) Nucleated RBC % Seg Neutrophils # Seg Neutrophils # Cristian PT INR POC ABG pH POC ABG pCO2 POC ABG pO2 Sodium 136 L Potassium Chloride Carbon Dioxide 21 L BUN Creatinine 1.5 H Glucose 160 H POC Glucose 147 H 151 H Lactic Acid Calcium 6.9 L Magnesium Total Bilirubin AST ALT Alkaline Phosphatase Ammonia Troponin T 0.109 H* D C-Reactive Protein Total Protein Albumin Prealbumin TSH Crossmatch 09/01/16 09/01/16 09/01/16 00:09 04:00 04:00 WBC 14.8 H RBC 2.89 L Hgb 7.8 L Hct 27.2 L MCV MCH 27 L MCHC 29 L RDW 24.4 H Plt Count [place] % (Auto) [place] # Seg Neutrophils % Seg Neuts % (Manual) Nucleated RBC % Seg Neutrophils # Seg Neutrophils # Cristian PT 18.2 H INR 1.51 H POC ABG pH POC ABG pCO2 POC ABG pO2 Sodium Potassium Chloride Carbon Dioxide BUN Creatinine Glucose POC Glucose 192 H Lactic Acid Calcium Magnesium Total Bilirubin AST ALT Alkaline Phosphatase Ammonia Troponin T C-Reactive Protein Total Protein Albumin Prealbumin TSH Crossmatch 09/01/16 09/01/16 09/01/16 04:00 05:28 11:28 WBC RBC Hgb Hct MCV MCH MCHC RDW Plt Count [place] % (Auto) [place] # Seg Neutrophils % Seg Neuts % (Manual) Nucleated RBC % Seg Neutrophils # Seg Neutrophils # Man PT INR POC ABG pH POC ABG pCO2 POC ABG pO2 Sodium Potassium Chloride Carbon Dioxide 20 L BUN Creatinine 1.6 H Glucose 183 H POC Glucose 189 H 207 H Lactic Acid Calcium 6.9 L Magnesium Total Bilirubin 1.30 H AST 138 H ALT Alkaline Phosphatase 520 H Ammonia Troponin T C-Reactive Protein Total Protein 6.1 L Albumin 1.2 L Prealbumin TSH Crossmatch 09/01/16 09/01/16 09/02/16 16:56 23:49 05:00 WBC RBC Hgb Hct MCV MCH MCHC RDW Plt Count [place] % (Auto) [place] # Seg Neutrophils % Seg Neuts % (Manual) Nucleated RBC % Seg Neutrophils # Seg Neutrophils # Man PT 18.0 H INR 1.49 H POC ABG pH POC ABG pCO2 POC ABG pO2 Sodium Potassium Chloride Carbon Dioxide BUN Creatinine Glucose POC Glucose 250 H 307 H Lactic Acid Calcium Magnesium Total Bilirubin AST ALT Alkaline Phosphatase Ammonia Troponin T C-Reactive Protein Total Protein Albumin Prealbumin TSH Crossmatch 09/02/16 09/02/16 09/02/16 05:00 05:00 05:45 WBC 12.3 H RBC 2.57 L Hgb 7.1 L Hct 23.4 L MCV MCH MCHC RDW 23.9 H Plt Count [place] % (Auto) [place] # Seg Neutrophils % Seg Neuts % (Manual) 72.0 H Nucleated RBC % 25.0 H Seg Neutrophils # Seg Neutrophils # Man 8.9 H PT INR POC ABG pH POC ABG pCO2 POC ABG pO2 Sodium Potassium Chloride Carbon Dioxide BUN Creatinine 1.4 H Glucose 299 H POC Glucose 327 H Lactic Acid Calcium 7.0 L Magnesium Total Bilirubin AST ALT Alkaline Phosphatase Ammonia Troponin T C-Reactive Protein Total Protein Albumin Prealbumin TSH Crossmatch 09/02/16 09/02/16 09/02/16 12:22 17:22 23:24 WBC RBC Hgb Hct MCV MCH MCHC RDW Plt Count [place] % (Auto) [place] # Seg Neutrophils % Seg Neuts % (Manual) Nucleated RBC % Seg Neutrophils # Seg Neutrophils # Cristian PT INR POC ABG pH POC ABG pCO2 POC ABG pO2 Sodium Potassium Chloride Carbon Dioxide BUN Creatinine Glucose POC Glucose 310 H 358 H 286 H Lactic Acid Calcium Magnesium Total Bilirubin AST ALT Alkaline Phosphatase Ammonia Troponin T C-Reactive Protein Total Protein Albumin Prealbumin TSH Crossmatch 09/03/16 09/03/16 09/03/16 04:10 04:10 04:10 WBC 11.8 H RBC 2.29 L Hgb 6.1 L Hct 21.0 L MCV MCH 27 L MCHC 29 L RDW 24.1 H Plt Count [place] % (Auto) [place] # Seg Neutrophils % Seg Neuts % (Manual) Nucleated RBC % Seg Neutrophils # Seg Neutrophils # Man PT 17.6 H INR 1.45 H POC ABG pH POC ABG pCO2 POC ABG pO2 Sodium Potassium Chloride Carbon Dioxide BUN Creatinine 1.4 H Glucose 301 H POC Glucose Lactic Acid Calcium 7.0 L Magnesium Total Bilirubin AST ALT Alkaline Phosphatase Ammonia Troponin T C-Reactive Protein Total Protein Albumin Prealbumin TSH Crossmatch 09/03/16 09/03/16 09/03/16 05:59 11:36 17:42 WBC RBC Hgb Hct MCV MCH MCHC RDW Plt Count [place] % (Auto) [place] # Seg Neutrophils % Seg Neuts % (Manual) Nucleated RBC % Seg Neutrophils # Seg Neutrophils # Man PT INR POC ABG pH POC ABG pCO2 POC ABG pO2 Sodium Potassium Chloride Carbon Dioxide BUN Creatinine Glucose POC Glucose 351 H 285 H 259 H Lactic Acid Calcium Magnesium Total Bilirubin AST ALT Alkaline Phosphatase Ammonia Troponin T C-Reactive Protein Total Protein Albumin Prealbumin TSH Crossmatch 09/03/16 09/04/16 09/04/16 23:00 04:27 05:36 WBC RBC Hgb Hct MCV MCH MCHC RDW Plt Count [place] % (Auto) [place] # Seg Neutrophils % Seg Neuts % (Manual) Nucleated RBC % Seg Neutrophils # Seg Neutrophils # Man PT INR POC ABG pH 7.544 H POC ABG pCO2 30.8 L POC ABG pO2 78 L Sodium Potassium Chloride Carbon Dioxide BUN Creatinine Glucose POC Glucose 192 H 228 H Lactic Acid Calcium Magnesium Total Bilirubin AST ALT Alkaline Phosphatase Ammonia Troponin T C-Reactive Protein Total Protein Albumin Prealbumin TSH Crossmatch 09/04/16 09/04/16 09/04/16 06:37 06:37 06:39 WBC 21.0 H RBC 2.22 L Hgb 6.0 L Hct 20.1 L MCV MCH 27 L MCHC RDW 24.3 H Plt Count [place] % (Auto) [place] # Seg Neutrophils % Seg Neuts % (Manual) Nucleated RBC % Seg Neutrophils # Seg Neutrophils # Cristian PT 16.8 H INR 1.37 H POC ABG pH POC ABG pCO2 POC ABG pO2 Sodium Potassium Chloride Carbon Dioxide BUN Creatinine 1.4 H Glucose 201 H POC Glucose Lactic Acid Calcium 7.1 L Magnesium Total Bilirubin AST ALT Alkaline Phosphatase Ammonia Troponin T C-Reactive Protein Total Protein Albumin Prealbumin TSH Crossmatch 09/04/16 09/04/16 09/04/16 12:14 15:47 17:41 WBC RBC Hgb Hct MCV MCH MCHC RDW Plt Count [place] % (Auto) [place] # Seg Neutrophils % Seg Neuts % (Manual) Nucleated RBC % Seg Neutrophils # Seg Neutrophils # Cristian PT INR POC ABG pH POC ABG pCO2 POC ABG pO2 Sodium Potassium Chloride Carbon Dioxide BUN Creatinine Glucose POC Glucose 176 H 218 H Lactic Acid Calcium Magnesium Total Bilirubin AST ALT Alkaline Phosphatase Ammonia Troponin T C-Reactive Protein Total Protein Albumin Prealbumin TSH Crossmatch See Detail 09/04/16 09/04/16 09/05/16 21:59 23:48 04:30 WBC RBC Hgb Hct MCV MCH MCHC RDW Plt Count [place] % (Auto) [place] # Seg Neutrophils % Seg Neuts % (Manual) Nucleated RBC % Seg Neutrophils # Seg Neutrophils # Cristian PT 17.2 H INR 1.41 H POC ABG pH POC ABG pCO2 POC ABG pO2 Sodium Potassium Chloride Carbon Dioxide BUN Creatinine Glucose POC Glucose 170 H 121 H Lactic Acid Calcium Magnesium Total Bilirubin AST ALT Alkaline Phosphatase Ammonia Troponin T C-Reactive Protein Total Protein Albumin Prealbumin TSH Crossmatch 09/05/16 09/05/16 09/05/16 04:30 04:30 05:09 WBC 31.9 H RBC 3.11 L Hgb 8.5 L Hct 28.3 L D MCV MCH 27 L MCHC RDW 21.0 H Plt Count [place] % (Auto) [place] # Seg Neutrophils % Seg Neuts % (Manual) Nucleated RBC % Seg Neutrophils # Seg Neutrophils # Man PT INR POC ABG pH 7.226 L POC ABG pCO2 61.6 H POC ABG pO2 68 L Sodium 134 L Potassium 5.5 H Chloride 96.6 L Carbon Dioxide BUN 23 H Creatinine 1.6 H Glucose 116 H POC Glucose Lactic Acid Calcium 7.1 L Magnesium Total Bilirubin AST ALT Alkaline Phosphatase Ammonia Troponin T C-Reactive Protein Total Protein Albumin Prealbumin TSH Crossmatch 09/05/16 09/05/16 09/05/16 05:33 12:08 17:32 WBC RBC Hgb Hct MCV MCH MCHC RDW Plt Count [place] % (Auto) [place] # Seg Neutrophils % Seg Neuts % (Manual) Nucleated RBC % Seg Neutrophils # Seg Neutrophils # Man PT INR POC ABG pH POC ABG pCO2 POC ABG pO2 Sodium Potassium Chloride Carbon Dioxide BUN Creatinine Glucose POC Glucose 114 H 147 H 174 H Lactic Acid Calcium Magnesium Total Bilirubin AST ALT Alkaline Phosphatase Ammonia Troponin T C-Reactive Protein Total Protein Albumin Prealbumin TSH Crossmatch 09/06/16 09/06/16 09/06/16 03:30 03:30 03:30 WBC 25.4 H RBC 2.57 L Hgb 7.2 L Hct 22.8 L MCV MCH MCHC RDW 20.9 H Plt Count 138 L [place] % (Auto) [place] # Seg Neutrophils % Seg Neuts % (Manual) Nucleated RBC % Seg Neutrophils # Seg Neutrophils # Man PT 16.4 H INR 1.33 H POC ABG pH POC ABG pCO2 POC ABG pO2 Sodium Potassium Chloride Carbon Dioxide BUN 36 H Creatinine 1.9 H Glucose POC Glucose Lactic Acid Calcium 7.2 L Magnesium Total Bilirubin AST ALT Alkaline Phosphatase Ammonia Troponin T C-Reactive Protein Total Protein Albumin Prealbumin TSH Crossmatch 09/06/16 09/06/16 09/06/16 11:07 12:03 14:44 WBC RBC Hgb Hct MCV MCH MCHC RDW Plt Count [place] % (Auto) [place] # Seg Neutrophils % Seg Neuts % (Manual) Nucleated RBC % Seg Neutrophils # Seg Neutrophils # Man PT INR POC ABG pH POC ABG pCO2 POC ABG pO2 Sodium Potassium Chloride Carbon Dioxide BUN Creatinine Glucose POC Glucose 61 L 55 L Lactic Acid Calcium Magnesium Total Bilirubin AST ALT Alkaline Phosphatase Ammonia Troponin T 0.080 H C-Reactive Protein Total Protein Albumin Prealbumin TSH Crossmatch 09/06/16 09/06/16 09/07/16 21:05 23:53 03:36 WBC RBC Hgb Hct MCV MCH MCHC RDW Plt Count [place] % (Auto) [place] # Seg Neutrophils % Seg Neuts % (Manual) Nucleated RBC % Seg Neutrophils # Seg Neutrophils # Man PT INR POC ABG pH POC ABG pCO2 POC ABG pO2 Sodium Potassium Chloride Carbon Dioxide BUN Creatinine Glucose POC Glucose 140 H 178 H 243 H Lactic Acid Calcium Magnesium Total Bilirubin AST ALT Alkaline Phosphatase Ammonia Troponin T C-Reactive Protein Total Protein Albumin Prealbumin TSH Crossmatch 09/07/16 09/07/16 09/07/16 03:42 03:42 05:04 WBC 17.3 H RBC 2.69 L Hgb 7.6 L Hct 23.8 L MCV MCH MCHC RDW 20.5 H Plt Count 137 L [place] % (Auto) [place] # Seg Neutrophils % Seg Neuts % (Manual) Nucleated RBC % Seg Neutrophils # Seg Neutrophils # Man PT INR POC ABG pH POC ABG pCO2 POC ABG pO2 Sodium Potassium 3.3 L Chloride Carbon Dioxide BUN 38 H Creatinine 1.6 H Glucose 201 H POC Glucose 241 H Lactic Acid Calcium 7.4 L Magnesium Total Bilirubin AST ALT Alkaline Phosphatase Ammonia Troponin T C-Reactive Protein Total Protein Albumin Prealbumin TSH Crossmatch 09/07/16 09/07/16 09/07/16 11:46 17:41 23:18 WBC RBC Hgb Hct MCV MCH MCHC RDW Plt Count [place] % (Auto) [place] # Seg Neutrophils % Seg Neuts % (Manual) Nucleated RBC % Seg Neutrophils # Seg Neutrophils # Man PT INR POC ABG pH POC ABG pCO2 POC ABG pO2 Sodium Potassium Chloride Carbon Dioxide BUN Creatinine Glucose POC Glucose 313 H 227 H 116 H Lactic Acid Calcium Magnesium Total Bilirubin AST ALT Alkaline Phosphatase Ammonia Troponin T C-Reactive Protein Total Protein Albumin Prealbumin TSH Crossmatch 09/08/16 09/08/16 09/08/16 04:00 04:00 05:15 WBC 18.4 H RBC 2.43 L Hgb 6.9 L Hct 21.5 L MCV MCH MCHC RDW 20.5 H Plt Count 119 L [place] % (Auto) [place] # Seg Neutrophils % Seg Neuts % (Manual) Nucleated RBC % Seg Neutrophils # Seg Neutrophils # Man PT INR POC ABG pH 7.458 H POC ABG pCO2 POC ABG pO2 177 H Sodium Potassium 3.5 L Chloride Carbon Dioxide BUN 37 H Creatinine 1.3 H Glucose POC Glucose Lactic Acid Calcium 7.1 L Magnesium Total Bilirubin AST ALT Alkaline Phosphatase Ammonia Troponin T C-Reactive Protein Total Protein Albumin Prealbumin TSH Crossmatch 09/08/16 09/08/16 09/08/16 11:00 15:58 23:16 WBC RBC Hgb Hct MCV MCH MCHC RDW Plt Count [place] % (Auto) [place] # Seg Neutrophils % Seg Neuts % (Manual) Nucleated RBC % Seg Neutrophils # Seg Neutrophils # Man PT INR POC ABG pH POC ABG pCO2 POC ABG pO2 113 H Sodium Potassium Chloride Carbon Dioxide BUN Creatinine Glucose POC Glucose 40 L Lactic Acid Calcium Magnesium Total Bilirubin AST ALT Alkaline Phosphatase Ammonia Troponin T C-Reactive Protein Total Protein Albumin Prealbumin TSH Crossmatch See Detail 09/09/16 09/09/16 09/09/16 05:02 12:33 18:10 WBC RBC Hgb Hct MCV MCH MCHC RDW Plt Count [place] % (Auto) [place] # Seg Neutrophils % Seg Neuts % (Manual) Nucleated RBC % Seg Neutrophils # Seg Neutrophils # Man PT INR POC ABG pH 7.454 H POC ABG pCO2 POC ABG pO2 75 L Sodium Potassium Chloride Carbon Dioxide BUN Creatinine Glucose POC Glucose 59 L Lactic Acid Calcium Magnesium Total Bilirubin AST ALT Alkaline Phosphatase Ammonia Troponin T C-Reactive Protein Total Protein Albumin Prealbumin TSH 5.220 H Crossmatch 09/09/16 09/09/16 09/09/16 18:10 18:10 18:42 WBC 17.0 H RBC 2.90 L Hgb 8.5 L Hct 26.1 L MCV MCH MCHC RDW 17.9 H Plt Count 126 L [place] % (Auto) [place] # Seg Neutrophils % Seg Neuts % (Manual) Nucleated RBC % Seg Neutrophils # Seg Neutrophils # Man PT INR POC ABG pH POC ABG pCO2 POC ABG pO2 Sodium Potassium Chloride Carbon Dioxide BUN 36 H Creatinine Glucose 133 H POC Glucose 148 H Lactic Acid Calcium 6.9 L Magnesium Total Bilirubin AST 253 H ALT 184 H Alkaline Phosphatase 729 H Ammonia Troponin T C-Reactive Protein Total Protein 5.1 L Albumin 1.7 L Prealbumin TSH Crossmatch 09/09/16 09/10/16 09/10/16 23:22 05:10 11:43 WBC RBC Hgb Hct MCV MCH MCHC RDW Plt Count [place] % (Auto) [place] # Seg Neutrophils % Seg Neuts % (Manual) Nucleated RBC % Seg Neutrophils # Seg Neutrophils # Man PT INR POC ABG pH POC ABG pCO2 POC ABG pO2 Sodium Potassium Chloride Carbon Dioxide BUN 35 H Creatinine Glucose 240 H POC Glucose 170 H 268 H Lactic Acid Calcium 6.8 L Magnesium Total Bilirubin AST 226 H ALT 171 H Alkaline Phosphatase 710 H Ammonia Troponin T C-Reactive Protein Total Protein 5.2 L Albumin 1.7 L Prealbumin TSH Crossmatch 09/10/16 09/11/16 09/11/16 17:51 01:07 05:00 WBC RBC Hgb Hct MCV MCH MCHC RDW Plt Count [place] % (Auto) [place] # Seg Neutrophils % Seg Neuts % (Manual) Nucleated RBC % Seg Neutrophils # Seg Neutrophils # Man PT INR POC ABG pH POC ABG pCO2 POC ABG pO2 Sodium Potassium 2.9 L* Chloride Carbon Dioxide BUN 35 H Creatinine Glucose 274 H POC Glucose 334 H 223 H Lactic Acid Calcium 6.9 L Magnesium Total Bilirubin AST 167 H ALT 145 H Alkaline Phosphatase 631 H Ammonia Troponin T C-Reactive Protein Total Protein 5.1 L Albumin 1.6 L Prealbumin TSH Crossmatch 09/11/16 09/11/16 09/11/16 05:01 12:16 17:12 WBC RBC Hgb Hct MCV MCH MCHC RDW Plt Count [place] % (Auto) [place] # Seg Neutrophils % Seg Neuts % (Manual) Nucleated RBC % Seg Neutrophils # Seg Neutrophils # Man PT INR POC ABG pH POC ABG pCO2 POC ABG pO2 Sodium Potassium Chloride Carbon Dioxide BUN Creatinine Glucose POC Glucose 305 H 219 H 171 H Lactic Acid Calcium Magnesium Total Bilirubin AST ALT Alkaline Phosphatase Ammonia Troponin T C-Reactive Protein Total Protein Albumin Prealbumin TSH Crossmatch 09/11/16 09/12/16 09/12/16 23:35 03:33 05:00 WBC 12.9 H RBC 2.81 L Hgb 8.2 L Hct 25.4 L MCV MCH MCHC RDW 17.9 H Plt Count [place] % (Auto) [place] # Seg Neutrophils % Seg Neuts % (Manual) Nucleated RBC % Seg Neutrophils # Seg Neutrophils # Man PT INR POC ABG pH POC ABG pCO2 POC ABG pO2 Sodium Potassium Chloride Carbon Dioxide BUN Creatinine Glucose POC Glucose 216 H 183 H Lactic Acid Calcium Magnesium Total Bilirubin AST ALT Alkaline Phosphatase Ammonia Troponin T C-Reactive Protein Total Protein Albumin Prealbumin TSH Crossmatch 09/12/16 09/12/16 09/12/16 05:00 15:15 18:30 WBC RBC Hgb Hct MCV MCH MCHC RDW Plt Count [place] % (Auto) [place] # Seg Neutrophils % Seg Neuts % (Manual) Nucleated RBC % Seg Neutrophils # Seg Neutrophils # Man PT INR POC ABG pH POC ABG pCO2 POC ABG pO2 Sodium Potassium 3.0 L 3.4 L Chloride Carbon Dioxide BUN 33 H Creatinine 0.5 L Glucose POC Glucose 215 H Lactic Acid Calcium 7.0 L Magnesium Total Bilirubin AST ALT Alkaline Phosphatase Ammonia Troponin T C-Reactive Protein Total Protein Albumin Prealbumin TSH Crossmatch 09/12/16 09/13/16 09/13/16 23:17 05:50 05:50 WBC RBC 2.93 L Hgb 8.8 L Hct 26.7 L MCV MCH MCHC RDW 18.0 H Plt Count [place] % (Auto) [place] # Seg Neutrophils % Seg Neuts % (Manual) Nucleated RBC % Seg Neutrophils # Seg Neutrophils # Man PT INR POC ABG pH POC ABG pCO2 POC ABG pO2 Sodium Potassium 2.6 L* D Chloride Carbon Dioxide BUN 29 H Creatinine 0.5 L Glucose 106 H POC Glucose 155 H Lactic Acid Calcium 7.3 L Magnesium Total Bilirubin AST ALT Alkaline Phosphatase Ammonia Troponin T C-Reactive Protein Total Protein Albumin Prealbumin TSH Crossmatch 09/13/16 09/13/16 09/13/16 05:53 11:43 15:07 WBC RBC Hgb Hct MCV MCH MCHC RDW Plt Count [place] % (Auto) [place] # Seg Neutrophils % Seg Neuts % (Manual) Nucleated RBC % Seg Neutrophils # Seg Neutrophils # Man PT INR POC ABG pH POC ABG pCO2 POC ABG pO2 Sodium Potassium 2.8 L* Chloride Carbon Dioxide BUN Creatinine Glucose POC Glucose 119 H 129 H Lactic Acid Calcium Magnesium Total Bilirubin AST ALT Alkaline Phosphatase Ammonia Troponin T C-Reactive Protein Total Protein Albumin Prealbumin TSH Crossmatch 09/13/16 09/13/16 09/14/16 17:39 23:30 05:34 WBC RBC Hgb Hct MCV MCH MCHC RDW Plt Count [place] % (Auto) [place] # Seg Neutrophils % Seg Neuts % (Manual) Nucleated RBC % Seg Neutrophils # Seg Neutrophils # Man PT INR POC ABG pH POC ABG pCO2 POC ABG pO2 Sodium Potassium Chloride Carbon Dioxide BUN Creatinine Glucose POC Glucose 144 H 196 H 175 H Lactic Acid Calcium Magnesium Total Bilirubin AST ALT Alkaline Phosphatase Ammonia Troponin T C-Reactive Protein Total Protein Albumin Prealbumin TSH Crossmatch 09/14/16 09/14/16 09/14/16 06:24 06:24 12:41 WBC RBC 2.82 L Hgb 8.4 L Hct 25.7 L MCV MCH MCHC RDW 18.0 H Plt Count [place] % (Auto) [place] # Seg Neutrophils % Seg Neuts % (Manual) Nucleated RBC % Seg Neutrophils # Seg Neutrophils # Man PT INR POC ABG pH POC ABG pCO2 POC ABG pO2 Sodium Potassium 2.9 L* Chloride 107.3 H Carbon Dioxide BUN 26 H Creatinine 0.4 L Glucose 169 H POC Glucose 184 H Lactic Acid Calcium 7.5 L Magnesium Total Bilirubin AST ALT Alkaline Phosphatase Ammonia Troponin T C-Reactive Protein Total Protein Albumin Prealbumin TSH Crossmatch 09/14/16 09/14/16 09/14/16 14:50 17:57 23:34 WBC RBC Hgb Hct MCV MCH MCHC RDW Plt Count [place] % (Auto) [place] # Seg Neutrophils % Seg Neuts % (Manual) Nucleated RBC % Seg Neutrophils # Seg Neutrophils # Man PT INR POC ABG pH POC ABG pCO2 POC ABG pO2 Sodium Potassium 3.3 L Chloride Carbon Dioxide BUN Creatinine Glucose POC Glucose 191 H 178 H Lactic Acid Calcium Magnesium Total Bilirubin AST ALT Alkaline Phosphatase Ammonia Troponin T C-Reactive Protein Total Protein Albumin Prealbumin TSH Crossmatch 09/15/16 09/15/16 09/15/16 05:02 07:57 07:57 WBC RBC 3.04 L Hgb 9.2 L Hct 28.2 L MCV MCH MCHC RDW 18.8 H Plt Count [place] % (Auto) [place] # Seg Neutrophils % Seg Neuts % (Manual) Nucleated RBC % Seg Neutrophils # Seg Neutrophils # Man PT INR POC ABG pH POC ABG pCO2 POC ABG pO2 Sodium Potassium Chloride 107.2 H Carbon Dioxide BUN 26 H Creatinine 0.4 L Glucose 160 H POC Glucose 192 H Lactic Acid Calcium 7.7 L Magnesium Total Bilirubin AST ALT Alkaline Phosphatase Ammonia Troponin T C-Reactive Protein Total Protein Albumin Prealbumin TSH Crossmatch 09/15/16 09/15/16 09/15/16 11:23 17:51 23:45 WBC RBC Hgb Hct MCV MCH MCHC RDW Plt Count [place] % (Auto) [place] # Seg Neutrophils % Seg Neuts % (Manual) Nucleated RBC % Seg Neutrophils # Seg Neutrophils # Man PT INR POC ABG pH POC ABG pCO2 POC ABG pO2 Sodium Potassium Chloride Carbon Dioxide BUN Creatinine Glucose POC Glucose 232 H 240 H 251 H Lactic Acid Calcium Magnesium Total Bilirubin AST ALT Alkaline Phosphatase Ammonia Troponin T C-Reactive Protein Total Protein Albumin Prealbumin TSH Crossmatch 09/16/16 09/16/16 09/16/16 04:55 04:55 05:38 WBC RBC 2.84 L Hgb 8.6 L Hct 26.2 L MCV MCH MCHC RDW 18.8 H Plt Count [place] % (Auto) [place] # Seg Neutrophils % Seg Neuts % (Manual) Nucleated RBC % Seg Neutrophils # Seg Neutrophils # Man PT INR POC ABG pH POC ABG pCO2 POC ABG pO2 Sodium Potassium 3.1 L Chloride 107.6 H Carbon Dioxide BUN 25 H Creatinine 0.3 L Glucose 134 H POC Glucose 157 H Lactic Acid Calcium 7.6 L Magnesium Total Bilirubin AST ALT Alkaline Phosphatase Ammonia Troponin T C-Reactive Protein Total Protein Albumin Prealbumin TSH Crossmatch 09/16/16 09/16/16 09/16/16 11:53 17:56 23:54 WBC RBC Hgb Hct MCV MCH MCHC RDW Plt Count [place] % (Auto) [place] # Seg Neutrophils % Seg Neuts % (Manual) Nucleated RBC % Seg Neutrophils # Seg Neutrophils # Man PT INR POC ABG pH POC ABG pCO2 POC ABG pO2 Sodium Potassium Chloride Carbon Dioxide BUN Creatinine Glucose POC Glucose 137 H 138 H 179 H Lactic Acid Calcium Magnesium Total Bilirubin AST ALT Alkaline Phosphatase Ammonia Troponin T C-Reactive Protein Total Protein Albumin Prealbumin TSH Crossmatch 09/17/16 09/17/16 09/17/16 05:00 05:00 05:28 WBC RBC 2.77 L Hgb 8.2 L Hct 25.9 L MCV MCH MCHC RDW 19.1 H Plt Count [place] % (Auto) [place] # Seg Neutrophils % Seg Neuts % (Manual) Nucleated RBC % Seg Neutrophils # Seg Neutrophils # Man PT INR POC ABG pH POC ABG pCO2 POC ABG pO2 Sodium Potassium 3.5 L Chloride 108.4 H Carbon Dioxide BUN 29 H Creatinine 0.3 L Glucose 117 H POC Glucose 142 H Lactic Acid Calcium 7.4 L Magnesium Total Bilirubin AST ALT Alkaline Phosphatase Ammonia Troponin T C-Reactive Protein Total Protein Albumin Prealbumin TSH Crossmatch 09/17/16 09/17/16 09/18/16 18:07 23:31 06:29 WBC RBC Hgb Hct MCV MCH MCHC RDW Plt Count [place] % (Auto) [place] # Seg Neutrophils % Seg Neuts % (Manual) Nucleated RBC % Seg Neutrophils # Seg Neutrophils # Man PT INR POC ABG pH POC ABG pCO2 POC ABG pO2 Sodium Potassium Chloride Carbon Dioxide BUN Creatinine Glucose POC Glucose 173 H 240 H 282 H Lactic Acid Calcium Magnesium Total Bilirubin AST ALT Alkaline Phosphatase Ammonia Troponin T C-Reactive Protein Total Protein Albumin Prealbumin TSH Crossmatch 09/18/16 09/18/16 09/18/16 06:30 12:21 17:55 WBC RBC Hgb Hct MCV MCH MCHC RDW Plt Count [place] % (Auto) [place] # Seg Neutrophils % Seg Neuts % (Manual) Nucleated RBC % Seg Neutrophils # Seg Neutrophils # Cristian PT INR POC ABG pH POC ABG pCO2 POC ABG pO2 Sodium 148 H Potassium Chloride 110.7 H Carbon Dioxide BUN 30 H Creatinine 0.4 L Glucose 249 H POC Glucose 248 H 255 H Lactic Acid Calcium 7.4 L Magnesium 1.60 L Total Bilirubin AST ALT Alkaline Phosphatase Ammonia Troponin T C-Reactive Protein Total Protein Albumin Prealbumin TSH Crossmatch 09/19/16 09/19/16 09/19/16 00:09 04:45 05:11 WBC RBC Hgb Hct MCV MCH MCHC RDW Plt Count [place] % (Auto) [place] # Seg Neutrophils % Seg Neuts % (Manual) Nucleated RBC % Seg Neutrophils # Seg Neutrophils # Cristian PT INR POC ABG pH POC ABG pCO2 POC ABG pO2 Sodium 146 H Potassium Chloride 110.8 H Carbon Dioxide BUN 34 H Creatinine 0.4 L Glucose 278 H POC Glucose 324 H 278 H Lactic Acid Calcium 7.3 L Magnesium Total Bilirubin AST ALT Alkaline Phosphatase Ammonia Troponin T C-Reactive Protein Total Protein Albumin Prealbumin TSH Crossmatch 09/19/16 09/19/16 09/19/16 11:12 12:09 17:10 WBC RBC Hgb Hct MCV MCH MCHC RDW Plt Count [place] % (Auto) [place] # Seg Neutrophils % Seg Neuts % (Manual) Nucleated RBC % Seg Neutrophils # Seg Neutrophils # Cristian PT INR POC ABG pH POC ABG pCO2 POC ABG pO2 Sodium Potassium Chloride Carbon Dioxide BUN Creatinine Glucose POC Glucose 306 H 225 H 329 H Lactic Acid Calcium Magnesium Total Bilirubin AST ALT Alkaline Phosphatase Ammonia Troponin T C-Reactive Protein Total Protein Albumin Prealbumin TSH Crossmatch 09/19/16 09/20/16 09/20/16 23:34 04:52 05:00 WBC RBC Hgb Hct MCV MCH MCHC RDW Plt Count [place] % (Auto) [place] # Seg Neutrophils % Seg Neuts % (Manual) Nucleated RBC % Seg Neutrophils # Seg Neutrophils # Man PT INR POC ABG pH POC ABG pCO2 POC ABG pO2 Sodium Potassium Chloride 108.6 H Carbon Dioxide BUN 35 H Creatinine 0.4 L Glucose 370 H POC Glucose 376 H 374 H Lactic Acid Calcium 7.3 L Magnesium Total Bilirubin AST ALT Alkaline Phosphatase Ammonia Troponin T C-Reactive Protein Total Protein Albumin Prealbumin TSH Crossmatch 09/20/16 09/20/16 09/20/16 11:18 17:39 23:49 WBC RBC Hgb Hct MCV MCH MCHC RDW Plt Count [place] % (Auto) [place] # Seg Neutrophils % Seg Neuts % (Manual) Nucleated RBC % Seg Neutrophils # Seg Neutrophils # Man PT INR POC ABG pH POC ABG pCO2 POC ABG pO2 Sodium Potassium Chloride Carbon Dioxide BUN Creatinine Glucose POC Glucose 342 H 416 H 440 H Lactic Acid Calcium Magnesium Total Bilirubin AST ALT Alkaline Phosphatase Ammonia Troponin T C-Reactive Protein Total Protein Albumin Prealbumin TSH Crossmatch 09/21/16 09/21/16 09/21/16 04:58 05:15 05:15 WBC RBC 1.48 L Hgb 4.6 L* Hct 14.9 L* MCV 100 H MCH MCHC RDW 25.4 H Plt Count [place] % (Auto) [place] # Seg Neutrophils % Seg Neuts % (Manual) Nucleated RBC % Seg Neutrophils # Seg Neutrophils # Man PT INR POC ABG pH POC ABG pCO2 POC ABG pO2 Sodium Potassium Chloride 107.5 H Carbon Dioxide 20 L BUN 45 H Creatinine 0.6 L Glucose 490 H POC Glucose > 500 H Lactic Acid Calcium 7.0 L Magnesium Total Bilirubin AST ALT Alkaline Phosphatase Ammonia Troponin T C-Reactive Protein Total Protein Albumin Prealbumin TSH Crossmatch 09/21/16 09/21/16 09/21/16 08:20 09:17 12:09 WBC RBC Hgb Hct MCV MCH MCHC RDW Plt Count [place] % (Auto) [place] # Seg Neutrophils % Seg Neuts % (Manual) Nucleated RBC % Seg Neutrophils # Seg Neutrophils # Man PT INR POC ABG pH 7.464 H POC ABG pCO2 29.3 L POC ABG pO2 198 H Sodium Potassium Chloride Carbon Dioxide BUN Creatinine Glucose POC Glucose 248 H Lactic Acid Calcium Magnesium Total Bilirubin AST ALT Alkaline Phosphatase Ammonia Troponin T C-Reactive Protein Total Protein Albumin Prealbumin TSH Crossmatch See Detail 09/21/16 09/21/16 09/21/16 15:21 17:36 18:49 WBC RBC Hgb Hct MCV MCH MCHC RDW Plt Count [place] % (Auto) [place] # Seg Neutrophils % Seg Neuts % (Manual) Nucleated RBC % Seg Neutrophils # Seg Neutrophils # Man PT INR POC ABG pH POC ABG pCO2 POC ABG pO2 Sodium Potassium Chloride Carbon Dioxide BUN Creatinine Glucose POC Glucose 403 H 437 H 482 H Lactic Acid Calcium Magnesium Total Bilirubin AST ALT Alkaline Phosphatase Ammonia Troponin T C-Reactive Protein Total Protein Albumin Prealbumin TSH Crossmatch 09/21/16 09/22/16 09/22/16 23:29 00:00 01:29 WBC 14.8 H RBC 2.94 L Hgb 9.1 L D Hct 27.5 L D MCV MCH MCHC RDW 16.7 H Plt Count [place] % (Auto) [place] # Seg Neutrophils % Seg Neuts % (Manual) Nucleated RBC % Seg Neutrophils # Seg Neutrophils # Man PT INR POC ABG pH POC ABG pCO2 POC ABG pO2 Sodium Potassium Chloride Carbon Dioxide BUN Creatinine Glucose POC Glucose 311 H 288 H Lactic Acid Calcium Magnesium Total Bilirubin AST ALT Alkaline Phosphatase Ammonia Troponin T C-Reactive Protein Total Protein Albumin Prealbumin TSH Crossmatch 09/22/16 09/22/16 09/22/16 02:29 03:12 03:26 WBC RBC Hgb Hct MCV MCH MCHC RDW Plt Count [place] % (Auto) [place] # Seg Neutrophils % Seg Neuts % (Manual) Nucleated RBC % Seg Neutrophils # Seg Neutrophils # Man PT INR POC ABG pH 7.460 H POC ABG pCO2 29.9 L POC ABG pO2 112 H Sodium Potassium Chloride Carbon Dioxide BUN Creatinine Glucose POC Glucose 261 H 239 H Lactic Acid Calcium Magnesium Total Bilirubin AST ALT Alkaline Phosphatase Ammonia Troponin T C-Reactive Protein Total Protein Albumin Prealbumin TSH Crossmatch 09/22/16 09/22/16 09/22/16 05:35 06:40 06:40 WBC 13.5 H RBC 3.18 L Hgb 9.5 L Hct 28.8 L MCV MCH MCHC RDW 16.2 H Plt Count [place] % (Auto) [place] # Seg Neutrophils % Seg Neuts % (Manual) Nucleated RBC % Seg Neutrophils # Seg Neutrophils # Man PT INR POC ABG pH POC ABG pCO2 POC ABG pO2 Sodium 147 H Potassium 3.2 L D Chloride 112.3 H Carbon Dioxide BUN 49 H Creatinine 0.6 L Glucose 102 H POC Glucose 181 H Lactic Acid Calcium 7.5 L Magnesium Total Bilirubin AST ALT Alkaline Phosphatase Ammonia Troponin T C-Reactive Protein Total Protein Albumin Prealbumin TSH Crossmatch 09/22/16 09/22/16 09/22/16 07:16 18:03 20:05 WBC RBC Hgb Hct MCV MCH MCHC RDW Plt Count [place] % (Auto) [place] # Seg Neutrophils % Seg Neuts % (Manual) Nucleated RBC % Seg Neutrophils # Seg Neutrophils # Man PT INR POC ABG pH POC ABG pCO2 POC ABG pO2 Sodium Potassium Chloride Carbon Dioxide BUN Creatinine Glucose POC Glucose 152 H 115 H 107 H Lactic Acid Calcium Magnesium Total Bilirubin AST ALT Alkaline Phosphatase Ammonia Troponin T C-Reactive Protein Total Protein Albumin Prealbumin TSH Crossmatch 09/22/16 09/22/16 09/23/16 21:00 23:55 02:02 WBC 13.8 H RBC 3.04 L Hgb 9.2 L Hct 28.0 L MCV MCH MCHC RDW 16.2 H Plt Count [place] % (Auto) [place] # Seg Neutrophils % Seg Neuts % (Manual) Nucleated RBC % Seg Neutrophils # Seg Neutrophils # Man PT INR POC ABG pH POC ABG pCO2 POC ABG pO2 Sodium Potassium Chloride Carbon Dioxide BUN Creatinine Glucose POC Glucose 133 H 110 H Lactic Acid Calcium Magnesium Total Bilirubin AST ALT Alkaline Phosphatase Ammonia Troponin T C-Reactive Protein Total Protein Albumin Prealbumin TSH Crossmatch 09/23/16 09/23/16 09/23/16 04:45 04:45 05:36 WBC 13.6 H RBC 2.86 L Hgb 8.6 L Hct 26.4 L MCV MCH MCHC RDW 17.1 H Plt Count [place] % (Auto) [place] # Seg Neutrophils % Seg Neuts % (Manual) Nucleated RBC % Seg Neutrophils # Seg Neutrophils # Man PT INR POC ABG pH POC ABG pCO2 POC ABG pO2 Sodium Potassium Chloride 109.2 H Carbon Dioxide 21 L BUN 43 H Creatinine 0.5 L Glucose 152 H POC Glucose 133 H Lactic Acid Calcium 7.7 L Magnesium Total Bilirubin AST ALT Alkaline Phosphatase Ammonia Troponin T C-Reactive Protein Total Protein Albumin Prealbumin TSH Crossmatch 09/23/16 09/23/16 09/23/16 07:42 11:55 13:26 WBC RBC Hgb Hct MCV MCH MCHC RDW Plt Count [place] % (Auto) [place] # Seg Neutrophils % Seg Neuts % (Manual) Nucleated RBC % Seg Neutrophils # Seg Neutrophils # Man PT INR POC ABG pH POC ABG pCO2 POC ABG pO2 Sodium Potassium Chloride Carbon Dioxide BUN Creatinine Glucose POC Glucose 175 H 170 H 195 H Lactic Acid Calcium Magnesium Total Bilirubin AST ALT Alkaline Phosphatase Ammonia Troponin T C-Reactive Protein Total Protein Albumin Prealbumin TSH Crossmatch 09/23/16 09/23/16 09/24/16 17:37 21:54 02:56 WBC RBC Hgb Hct MCV MCH MCHC RDW Plt Count [place] % (Auto) [place] # Seg Neutrophils % Seg Neuts % (Manual) Nucleated RBC % Seg Neutrophils # Seg Neutrophils # Man PT INR POC ABG pH POC ABG pCO2 POC ABG pO2 Sodium Potassium Chloride Carbon Dioxide BUN Creatinine Glucose POC Glucose 182 H 184 H 187 H Lactic Acid Calcium Magnesium Total Bilirubin AST ALT Alkaline Phosphatase Ammonia Troponin T C-Reactive Protein Total Protein Albumin Prealbumin TSH Crossmatch 09/24/16 09/24/16 09/24/16 05:00 05:00 05:22 WBC RBC 2.82 L Hgb 8.8 L Hct 27.0 L MCV MCH MCHC RDW 17.2 H Plt Count [place] % (Auto) [place] # Seg Neutrophils % Seg Neuts % (Manual) Nucleated RBC % Seg Neutrophils # Seg Neutrophils # Man PT INR POC ABG pH POC ABG pCO2 POC ABG pO2 Sodium 148 H Potassium Chloride 115.0 H Carbon Dioxide 21 L BUN 38 H Creatinine 0.6 L Glucose 163 H POC Glucose 194 H Lactic Acid Calcium 7.9 L Magnesium Total Bilirubin AST ALT Alkaline Phosphatase Ammonia Troponin T C-Reactive Protein Total Protein Albumin Prealbumin TSH Crossmatch 09/24/16 09/24/16 09/24/16 11:02 13:55 17:37 WBC RBC Hgb Hct MCV MCH MCHC RDW Plt Count [place] % (Auto) [place] # Seg Neutrophils % Seg Neuts % (Manual) Nucleated RBC % Seg Neutrophils # Seg Neutrophils # Man PT INR POC ABG pH POC ABG pCO2 POC ABG pO2 Sodium Potassium Chloride Carbon Dioxide BUN Creatinine Glucose POC Glucose 210 H 182 H 169 H Lactic Acid Calcium Magnesium Total Bilirubin AST ALT Alkaline Phosphatase Ammonia Troponin T C-Reactive Protein Total Protein Albumin Prealbumin TSH Crossmatch 09/25/16 09/25/16 09/25/16 02:15 05:14 09:39 WBC RBC Hgb Hct MCV MCH MCHC RDW Plt Count [place] % (Auto) [place] # Seg Neutrophils % Seg Neuts % (Manual) Nucleated RBC % Seg Neutrophils # Seg Neutrophils # Cristian PT INR POC ABG pH POC ABG pCO2 POC ABG pO2 Sodium Potassium Chloride Carbon Dioxide BUN Creatinine Glucose POC Glucose 139 H 151 H 184 H Lactic Acid Calcium Magnesium Total Bilirubin AST ALT Alkaline Phosphatase Ammonia Troponin T C-Reactive Protein Total Protein Albumin Prealbumin TSH Crossmatch 09/25/16 09/25/16 09/25/16 09:48 09:48 13:47 WBC RBC 2.76 L Hgb 8.7 L Hct 26.2 L MCV MCH MCHC RDW 17.3 H Plt Count [place] % (Auto) [place] # Seg Neutrophils % Seg Neuts % (Manual) Nucleated RBC % Seg Neutrophils # Seg Neutrophils # Man PT INR POC ABG pH POC ABG pCO2 POC ABG pO2 Sodium 150 H Potassium Chloride 115.6 H Carbon Dioxide BUN 34 H Creatinine 0.4 L Glucose 168 H POC Glucose 167 H Lactic Acid Calcium 7.9 L Magnesium Total Bilirubin AST ALT Alkaline Phosphatase Ammonia Troponin T C-Reactive Protein Total Protein Albumin Prealbumin TSH Crossmatch 09/25/16 09/25/16 09/26/16 17:57 21:44 00:05 WBC RBC Hgb Hct MCV MCH MCHC RDW Plt Count [place] % (Auto) [place] # Seg Neutrophils % Seg Neuts % (Manual) Nucleated RBC % Seg Neutrophils # Seg Neutrophils # Man PT INR POC ABG pH POC ABG pCO2 POC ABG pO2 Sodium Potassium Chloride Carbon Dioxide BUN Creatinine Glucose POC Glucose 206 H 188 H 188 H Lactic Acid Calcium Magnesium Total Bilirubin AST ALT Alkaline Phosphatase Ammonia Troponin T C-Reactive Protein Total Protein Albumin Prealbumin TSH Crossmatch 09/26/16 09/26/16 09/26/16 01:29 03:46 03:46 WBC RBC 2.76 L Hgb 8.6 L Hct 26.2 L MCV MCH MCHC RDW 18.2 H Plt Count [place] % (Auto) [place] # Seg Neutrophils % Seg Neuts % (Manual) Nucleated RBC % Seg Neutrophils # Seg Neutrophils # Man PT INR POC ABG pH POC ABG pCO2 POC ABG pO2 Sodium 147 H Potassium Chloride 114.1 H Carbon Dioxide BUN 28 H Creatinine 0.4 L Glucose 172 H POC Glucose 198 H Lactic Acid Calcium 7.6 L Magnesium Total Bilirubin AST ALT Alkaline Phosphatase Ammonia Troponin T C-Reactive Protein Total Protein Albumin Prealbumin TSH Crossmatch 09/26/16 09/26/16 09/26/16 08:08 12:39 16:56 WBC RBC Hgb Hct MCV MCH MCHC RDW Plt Count [place] % (Auto) [place] # Seg Neutrophils % Seg Neuts % (Manual) Nucleated RBC % Seg Neutrophils # Seg Neutrophils # Man PT INR POC ABG pH POC ABG pCO2 POC ABG pO2 Sodium Potassium Chloride Carbon Dioxide BUN Creatinine Glucose POC Glucose 161 H 176 H 128 H Lactic Acid Calcium Magnesium Total Bilirubin AST ALT Alkaline Phosphatase Ammonia Troponin T C-Reactive Protein Total Protein Albumin Prealbumin TSH Crossmatch 09/26/16 09/27/16 09/27/16 21:33 06:31 07:23 WBC RBC Hgb Hct MCV MCH MCHC RDW Plt Count [place] % (Auto) [place] # Seg Neutrophils % Seg Neuts % (Manual) Nucleated RBC % Seg Neutrophils # Seg Neutrophils # Man PT INR POC ABG pH POC ABG pCO2 POC ABG pO2 Sodium Potassium Chloride Carbon Dioxide BUN Creatinine Glucose POC Glucose 120 H 209 H 173 H Lactic Acid Calcium Magnesium Total Bilirubin AST ALT Alkaline Phosphatase Ammonia Troponin T C-Reactive Protein Total Protein Albumin Prealbumin TSH Crossmatch 09/27/16 09/27/16 09/27/16 11:31 17:22 20:41 WBC RBC Hgb Hct MCV MCH MCHC RDW Plt Count [place] % (Auto) [place] # Seg Neutrophils % Seg Neuts % (Manual) Nucleated RBC % Seg Neutrophils # Seg Neutrophils # Man PT INR POC ABG pH POC ABG pCO2 POC ABG pO2 Sodium Potassium Chloride Carbon Dioxide BUN Creatinine Glucose POC Glucose 185 H 167 H 185 H Lactic Acid Calcium Magnesium Total Bilirubin AST ALT Alkaline Phosphatase Ammonia Troponin T C-Reactive Protein Total Protein Albumin Prealbumin TSH Crossmatch 09/28/16 09/28/16 09/28/16 00:30 04:00 04:00 WBC RBC 3.00 L Hgb 9.4 L Hct 28.7 L MCV MCH MCHC RDW 19.1 H Plt Count [place] % (Auto) [place] # Seg Neutrophils % Seg Neuts % (Manual) Nucleated RBC % Seg Neutrophils # Seg Neutrophils # Man PT INR POC ABG pH POC ABG pCO2 POC ABG pO2 Sodium Potassium Chloride 110.5 H Carbon Dioxide BUN 24 H Creatinine 0.3 L Glucose 214 H POC Glucose 159 H Lactic Acid Calcium 7.9 L Magnesium Total Bilirubin AST ALT Alkaline Phosphatase Ammonia Troponin T C-Reactive Protein Total Protein Albumin Prealbumin TSH Crossmatch 09/28/16 09/28/16 09/28/16 04:12 09:58 15:15 WBC RBC Hgb Hct MCV MCH MCHC RDW Plt Count [place] % (Auto) [place] # Seg Neutrophils % Seg Neuts % (Manual) Nucleated RBC % Seg Neutrophils # Seg Neutrophils # Man PT INR POC ABG pH POC ABG pCO2 POC ABG pO2 Sodium Potassium Chloride Carbon Dioxide BUN Creatinine Glucose POC Glucose 209 H 191 H 162 H Lactic Acid Calcium Magnesium Total Bilirubin AST ALT Alkaline Phosphatase Ammonia Troponin T C-Reactive Protein Total Protein Albumin Prealbumin TSH Crossmatch 09/28/16 09/28/16 09/29/16 17:58 21:38 02:38 WBC RBC Hgb Hct MCV MCH MCHC RDW Plt Count [place] % (Auto) [place] # Seg Neutrophils % Seg Neuts % (Manual) Nucleated RBC % Seg Neutrophils # Seg Neutrophils # Man PT INR POC ABG pH POC ABG pCO2 POC ABG pO2 Sodium Potassium Chloride Carbon Dioxide BUN Creatinine Glucose POC Glucose 174 H 162 H 180 H Lactic Acid Calcium Magnesium Total Bilirubin AST ALT Alkaline Phosphatase Ammonia Troponin T C-Reactive Protein Total Protein Albumin Prealbumin TSH Crossmatch 09/29/16 09/29/16 09/29/16 05:16 10:24 14:37 WBC RBC Hgb Hct MCV MCH MCHC RDW Plt Count [place] % (Auto) [place] # Seg Neutrophils % Seg Neuts % (Manual) Nucleated RBC % Seg Neutrophils # Seg Neutrophils # Man PT INR POC ABG pH POC ABG pCO2 POC ABG pO2 Sodium Potassium Chloride Carbon Dioxide BUN Creatinine Glucose POC Glucose 152 H 182 H 190 H Lactic Acid Calcium Magnesium Total Bilirubin AST ALT Alkaline Phosphatase Ammonia Troponin T C-Reactive Protein Total Protein Albumin Prealbumin TSH Crossmatch 09/29/16 09/29/16 09/30/16 17:30 21:39 01:45 WBC RBC Hgb Hct MCV MCH MCHC RDW Plt Count [place] % (Auto) [place] # Seg Neutrophils % Seg Neuts % (Manual) Nucleated RBC % Seg Neutrophils # Seg Neutrophils # Man PT INR POC ABG pH POC ABG pCO2 POC ABG pO2 Sodium Potassium Chloride Carbon Dioxide BUN Creatinine Glucose POC Glucose 192 H 219 H 210 H Lactic Acid Calcium Magnesium Total Bilirubin AST ALT Alkaline Phosphatase Ammonia Troponin T C-Reactive Protein Total Protein Albumin Prealbumin TSH Crossmatch 09/30/16 09/30/16 09/30/16 05:02 07:42 08:30 WBC RBC Hgb Hct MCV MCH MCHC RDW Plt Count [place] % (Auto) [place] # Seg Neutrophils % Seg Neuts % (Manual) Nucleated RBC % Seg Neutrophils # Seg Neutrophils # Man PT INR POC ABG pH POC ABG pCO2 POC ABG pO2 Sodium Potassium 3.5 L Chloride 108.5 H Carbon Dioxide BUN 22 H Creatinine 0.4 L Glucose 223 H POC Glucose 148 H 227 H Lactic Acid Calcium 7.8 L Magnesium 1.50 L Total Bilirubin AST ALT Alkaline Phosphatase Ammonia Troponin T C-Reactive Protein Total Protein Albumin Prealbumin TSH Crossmatch 09/30/16 09/30/16 09/30/16 11:48 15:21 18:06 WBC RBC Hgb Hct MCV MCH MCHC RDW Plt Count [place] % (Auto) [place] # Seg Neutrophils % Seg Neuts % (Manual) Nucleated RBC % Seg Neutrophils # Seg Neutrophils # Man PT INR POC ABG pH POC ABG pCO2 POC ABG pO2 Sodium Potassium Chloride Carbon Dioxide BUN Creatinine Glucose POC Glucose 286 H 281 H 194 H Lactic Acid Calcium Magnesium Total Bilirubin AST ALT Alkaline Phosphatase Ammonia Troponin T C-Reactive Protein Total Protein Albumin Prealbumin TSH Crossmatch 09/30/16 10/01/16 10/01/16 21:23 03:27 05:36 WBC RBC Hgb Hct MCV MCH MCHC RDW Plt Count [place] % (Auto) [place] # Seg Neutrophils % Seg Neuts % (Manual) Nucleated RBC % Seg Neutrophils # Seg Neutrophils # Man PT INR POC ABG pH POC ABG pCO2 POC ABG pO2 Sodium Potassium Chloride Carbon Dioxide BUN Creatinine Glucose POC Glucose 117 H 161 H 160 H Lactic Acid Calcium Magnesium Total Bilirubin AST ALT Alkaline Phosphatase Ammonia Troponin T C-Reactive Protein Total Protein Albumin Prealbumin TSH Crossmatch 10/01/16 10/01/16 10/01/16 08:35 08:35 11:06 WBC 11.7 H RBC 2.75 L Hgb 8.5 L Hct 26.5 L MCV MCH MCHC RDW 21.0 H Plt Count [place] % (Auto) 11.7 H [place] # 1.4 H Seg Neutrophils % Seg Neuts % (Manual) Nucleated RBC % Seg Neutrophils # 7.8 H Seg Neutrophils # Man PT INR POC ABG pH POC ABG pCO2 POC ABG pO2 Sodium Potassium Chloride 108.0 H Carbon Dioxide BUN 20 H Creatinine 0.4 L Glucose 137 H POC Glucose 160 H Lactic Acid Calcium 7.9 L Magnesium Total Bilirubin AST ALT Alkaline Phosphatase Ammonia Troponin T C-Reactive Protein Total Protein Albumin Prealbumin TSH Crossmatch 10/01/16 10/01/16 10/01/16 11:50 13:47 17:40 WBC RBC Hgb Hct MCV MCH MCHC RDW Plt Count [place] % (Auto) [place] # Seg Neutrophils % Seg Neuts % (Manual) Nucleated RBC % Seg Neutrophils # Seg Neutrophils # Man PT INR POC ABG pH POC ABG pCO2 POC ABG pO2 Sodium Potassium Chloride Carbon Dioxide BUN Creatinine Glucose POC Glucose 142 H 151 H 163 H Lactic Acid Calcium Magnesium Total Bilirubin AST ALT Alkaline Phosphatase Ammonia Troponin T C-Reactive Protein Total Protein Albumin Prealbumin TSH Crossmatch 10/01/16 10/02/16 10/02/16 22:02 02:03 06:21 WBC RBC Hgb Hct MCV MCH MCHC RDW Plt Count [place] % (Auto) [place] # Seg Neutrophils % Seg Neuts % (Manual) Nucleated RBC % Seg Neutrophils # Seg Neutrophils # Man PT INR POC ABG pH POC ABG pCO2 POC ABG pO2 Sodium Potassium Chloride Carbon Dioxide BUN Creatinine Glucose POC Glucose 179 H 144 H 153 H Lactic Acid Calcium Magnesium Total Bilirubin AST ALT Alkaline Phosphatase Ammonia Troponin T C-Reactive Protein Total Protein Albumin Prealbumin TSH Crossmatch 10/02/16 10/02/16 10/02/16 09:34 10:16 14:21 WBC RBC Hgb Hct MCV MCH MCHC RDW Plt Count [place] % (Auto) [place] # Seg Neutrophils % Seg Neuts % (Manual) Nucleated RBC % Seg Neutrophils # Seg Neutrophils # Man PT INR POC ABG pH POC ABG pCO2 POC ABG pO2 Sodium Potassium Chloride Carbon Dioxide BUN Creatinine Glucose POC Glucose 206 H 170 H 166 H Lactic Acid Calcium Magnesium Total Bilirubin AST ALT Alkaline Phosphatase Ammonia Troponin T C-Reactive Protein Total Protein Albumin Prealbumin TSH Crossmatch 10/02/16 10/02/16 10/03/16 17:29 21:30 01:47 WBC RBC Hgb Hct MCV MCH MCHC RDW Plt Count [place] % (Auto) [place] # Seg Neutrophils % Seg Neuts % (Manual) Nucleated RBC % Seg Neutrophils # Seg Neutrophils # Man PT INR POC ABG pH POC ABG pCO2 POC ABG pO2 Sodium Potassium Chloride Carbon Dioxide BUN Creatinine Glucose POC Glucose 150 H 147 H 191 H Lactic Acid Calcium Magnesium Total Bilirubin AST ALT Alkaline Phosphatase Ammonia Troponin T C-Reactive Protein Total Protein Albumin Prealbumin TSH Crossmatch 10/03/16 10/03/16 10/03/16 05:13 09:15 13:12 WBC RBC Hgb Hct MCV MCH MCHC RDW Plt Count [place] % (Auto) [place] # Seg Neutrophils % Seg Neuts % (Manual) Nucleated RBC % Seg Neutrophils # Seg Neutrophils # Man PT INR POC ABG pH POC ABG pCO2 POC ABG pO2 Sodium Potassium Chloride Carbon Dioxide BUN Creatinine Glucose POC Glucose 165 H 200 H 247 H Lactic Acid Calcium Magnesium Total Bilirubin AST ALT Alkaline Phosphatase Ammonia Troponin T C-Reactive Protein Total Protein Albumin Prealbumin TSH Crossmatch 10/03/16 10/03/16 10/04/16 16:36 21:43 02:00 WBC RBC Hgb Hct MCV MCH MCHC RDW Plt Count [place] % (Auto) [place] # Seg Neutrophils % Seg Neuts % (Manual) Nucleated RBC % Seg Neutrophils # Seg Neutrophils # Man PT INR POC ABG pH POC ABG pCO2 POC ABG pO2 Sodium Potassium Chloride Carbon Dioxide BUN Creatinine Glucose POC Glucose 187 H 107 H 223 H Lactic Acid Calcium Magnesium Total Bilirubin AST ALT Alkaline Phosphatase Ammonia Troponin T C-Reactive Protein Total Protein Albumin Prealbumin TSH Crossmatch 10/04/16 10/04/16 10/04/16 05:52 07:16 08:00 WBC 14.6 H RBC 2.70 L Hgb 8.2 L Hct 25.7 L MCV MCH MCHC RDW 21.0 H Plt Count [place] % (Auto) [place] # Seg Neutrophils % Seg Neuts % (Manual) Nucleated RBC % Seg Neutrophils # Seg Neutrophils # Man PT INR POC ABG pH POC ABG pCO2 POC ABG pO2 Sodium Potassium Chloride Carbon Dioxide BUN Creatinine Glucose POC Glucose 182 H 190 H Lactic Acid Calcium Magnesium Total Bilirubin AST ALT Alkaline Phosphatase Ammonia Troponin T C-Reactive Protein Total Protein Albumin Prealbumin TSH Crossmatch 10/04/16 10/04/16 08:00 11:55 WBC RBC Hgb Hct MCV MCH MCHC RDW Plt Count [place] % (Auto) [place] # Seg Neutrophils % Seg Neuts % (Manual) Nucleated RBC % Seg Neutrophils # Seg Neutrophils # Man PT INR POC ABG pH POC ABG pCO2 POC ABG pO2 Sodium Potassium Chloride Carbon Dioxide 21 L BUN 18 H Creatinine 0.5 L Glucose 159 H POC Glucose 120 H Lactic Acid Calcium 8.2 L Magnesium Total Bilirubin AST ALT Alkaline Phosphatase Ammonia Troponin T C-Reactive Protein Total Protein Albumin Prealbumin TSH Crossmatch Allied health notes reviewed: RT
--- NOTE | 2016-10-04 15:15 | Progress Note ---
Assessment and Plan Assessment and plan: Patient is a 61-year-old morbid obese woman with a history of congestive heart failure, severe protein calorie malnutrition (bilateral taoism muscle severe wasting, hypothenar muscle wasting) with BMI of 81.6, functional quadriplegia, type 2 diabetes mellitus, hypertension, multiple skin breakdown between legs and thighs who presented to the hospital via EMS with AMS. 2D echocardiogram with ejection fraction of 50-55%. During the past admission, patient was recommended for placement but refused. On presentation to ED, patient was felt to be unable to maintain her airways and intubated the ER since 08/29/16. 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, poa: supportative care -Acute on chronic diastolic congestive heart failure: treated with diuresis -Acute on chronic respiratory failure, intubated > 96 hours -Septic shock off IV solucorticef and midodrine -Severe anemia s/p blood transfusion: monitor cbc closely altered -Paroxysmal atrial fibrillation -Non-ST elevated LA type 2: Conservative management -Acute on chronic kidney disease III, likely secondary to vasomotor nephropathy- POA -Transaminitis-elevated alkaline phosphatase and AST: continue to monitor -Severe protein calorie malnutrition albumin 1.2 -Morbid obesity BMI 81.6 -Mulitple PRESSURE ULCERS-POA: consulted wound care -uncontrolled dm: insulin -Acute anemia with drop in HCT s/p 5 units of PRBC transfused so far. Ordered 2 more units. -Unable to get CT head due to weight issues -Dvt prophylaxis: scd only due to the anemia Disposition: LTAC declined, case management is working on plan DNR 09/04/16 , boyfriend, Tad agreed to blood transfusion, hgb is 6.0 will transfuse 2 units==>h/h steady, continue to monitor 09/05/16: Overnight was very eventful. New issue: Status epilepticus most likely due to anoxic brain injury, poa. She is back on 8 mcg of Levophed, which had weaned off up to the point of seizure activity Patient had status epilepticus before receiving blood transfusions. She was given multiple doses of Ativan and was still having breakthrough seizures. She was given phenobarbital and Dilantin but still having seizures. I started propofol drip which is helping. She still on IV Ativan drip also. Difficult family dynamics: Her son (she has multiple children), Srikanth and sister Leanne were at her bedside and well as her boyfriend who is not her legal , which he told me. They are upset because they didn't know patient was in the hospital. It appears the gentleman in the room is her boyfriend and not her legal He also did not notify the family the patient was here. That gentleman who is her boyfriend dropped the patient's wallet and our security called the number inside the wallet which was patient's mother's number and this is how the family found out that patient was in the hospital. I was told by RN, that patient has no , patient has 7 siblings and they are estranged from mother. No legal POA but sister Leanne is active in sister's life. Her boyfriend name is Tad Vieyra and he has consistently been at her beside, holding her hand and being supportive. 09/10/16 (resumed care): Trying to get to LTAC, still on 2 mcg of Levaphed but not sedated==>?Significant anoxic brain injury most likely poa, Ethic committee consulted because some family members want to withdraw. 09/11/16, Trach aspirated GNR, continue abx pending identification, off levaphed today. Trying to get to LTAC, they can trach her there. Only [facility] takes her insurance 09/12/16 Trach aspirate still pending, new issue of hypothermia, responded to [facility] [place], tube feeding low rate due to high residuals, abd xray unremarkable. Potassium replaced. No restraints needs, no sedation needed, poor prognosis 09/15/16(resumed care): new issue seizure, gave 1mg iv ativan x 1. Awaiting to go to [facility], they want to trach and peg when she gets there. 09/16-11/26: cpm, no new seizures. 09/18/16: [facility] did not accept patient, so trach and peg here. Patient has been intubated since 08/29/16. 09/19/16 no new issue, trying to wean 09/20/16: d/w boyfriend at bedside. He believes she is having purposefully spontaneous movements, like blinking. Heart rate went up to 150s but spontaneously went down without any medications given. 09/21/16: Overnight she became hypotensive, Levophed drip restarted at 12mcg, hgb found to be 4.6, blood transfusions ordered, hyperglycemic worse, so Levemir increased, She has apneic breathing on vent, POOR sign, anticipate w/in 48 hours because she will tire out. 09/29/16 Resumed care of Ms. Ashley, she is currently tachycardiac, HR 200s and SBP 70s. She has SVT. Ordered Amiodarone 300mg iv x 1 bolus and nss bolus 500ml and bp improved. Once bolus stopped sbp dropped below 90 again so gave another 500ml ns bolus x 1. Amiodrone iv bolus still pending. Reconsulted Cardiology. He had twitches are back. Given iv ativan last night. Start Amiodarone drip after. May need to re-start Levophed. I have kindly asked nurse to notify CCM also. Patient has lost approximately 85 lbs, hopefully [facility] will re- consider. I believe the seizures are manifestation of anoxic brain injury, poa. Surgeron considering peg/trach on . CCT 40 minutes 09/30/16 She was off Levophed drip this morning. On Amiodarone drip, Cardiology re-called and they are following again. 10/01/16 preop diagnosis - respiratory failure postop diagnosis - same procedure - PEG tube insertion surgeon - Rahul Gamino MD asst - Joseph Brewster MD anesthesia - GETA complications - none procedure - The patient was taken to the operating room. Appropriate preop antibiotics were given. A time out was called. First, an endoscope was used to access and insufflate the stomach. Dr. Brewster accessed the stomach through the anterior abdominal wall with the access needle. To do so, he had to do a laparascopic lysis of adhesions which he will dictate as a separate dictation. Once the stomach was accessed, a guidewire was passed through the access needle. A snare was then passed through the endoscope and was closed around the guidewire. The guidewire was then pulled out through the patient's mouth with the endoscope. A 20F PEG tube was attached to the guidewire and pulled through the stomach and out the anterior abdominal wall. It was secured into place at 7 cm at the anterior abdominal wall. The endoscope was used to see the PEG tube flush with the stomach wall. The patient tolerated the procedure well. Still on Levophed and Amiodarone 10/02/16 still on levophed and amiodarone 10/03/16 still on levophed and amiodarone, still intubated. No sedation and no purposeful movement. 10/04/16 on warming blanket now, prognosis still not good. History Interval history: Patient seen and examined. Follow up on respiratory failure. Patient still intubated. Hospitalist Physical - Physical exam Narrative exam: GEN: Critically ill, morbid obese BMI 81.6, intubated, apneic breathing==>bmi now 67.3 HEENT: Pupils are pinpoint and reactive, ET tube in place CVS: irregular irregular NORMAL S1S2 LUNGS/CHEST: NORMAL CHEST EXPANSION B, GOOD AIR ENTRY B ABD: SOFT, NONDISTENDED GBS, NO REBOUND OR GUARDING NEURO: doesn't follow commands PSY: Comatose - Constitutional Vitals: Temp Pulse Resp BP Pulse Ox 99 F 100 H 38 H 119/44 99 10/04/16 11:59 10/04/16 13:00 10/04/16 13:00 10/04/16 13:00 10/04/16 13:00 General appearance: Present: obese Results - Labs CBC & Chem 7: 10/04/16 08:00 10/04/16 08:00 Labs: Laboratory Last Values WBC 14.6 K/mm3 (4.5-11.0) H 10/04/16 08:00 RBC 2.70 M/mm3 (3.65-5.03) L 10/04/16 08:00 Hgb 8.2 gm/dl (10.1-14.3) L 10/04/16 08:00 Hct 25.7 % (30.3-42.9) L 10/04/16 08:00 MCV 95 fl (79-97) 10/04/16 08:00 MCH 30 pg (28-32) 10/04/16 08:00 MCHC 32 % (30-34) 10/04/16 08:00 RDW 21.0 % (13.2-15.2) H 10/04/16 08:00 Plt Count 287 K/mm3 (140-440) 10/04/16 08:00 Lymph % (Auto) 19.9 % (13.4-35.0) 10/01/16 08:35 [place] % (Auto) 11.7 % (0.0-7.3) H 10/01/16 08:35 Eos % (Auto) 1.1 % (0.0-4.3) 10/01/16 08:35 Baso % (Auto) 0.4 % (0.0-1.8) 10/01/16 08:35 Lymph # 2.3 K/mm3 (1.2-5.4) 10/01/16 08:35 [place] # 1.4 K/mm3 (0.0-0.8) H 10/01/16 08:35 Eos # 0.1 K/mm3 (0.0-0.4) 10/01/16 08:35 Baso # 0.1 K/mm3 (0.0-0.1) 10/01/16 08:35 Add Manual Diff Complete 09/02/16 05:00 Total Counted 100 09/02/16 05:00 Seg Neutrophils % 66.9 % (40.0-70.0) 10/01/16 08:35 Seg Neuts % (Manual) 72.0 % (40.0-70.0) H 09/02/16 05:00 Band Neutrophils % 9.0 % 09/02/16 05:00 Lymphocytes % (Manual) 15.0 % (13.4-35.0) 09/02/16 05:00 Reactive Lymphs % (Man) 0 % 09/02/16 05:00 Monocytes % (Manual) 4.0 % (0.0-7.3) 09/02/16 05:00 Eosinophils % (Manual) 0 % (0.0-4.3) 09/02/16 05:00 Basophils % (Manual) 0 % (0.0-1.8) 09/02/16 05:00 Metamyelocytes % 0 % 09/02/16 05:00 Myelocytes % 0 % 09/02/16 05:00 Promyelocytes % 0 % 09/02/16 05:00 Blast Cells % 0 % 09/02/16 05:00 Nucleated RBC % 25.0 % (0.0-0.9) H 09/02/16 05:00 Seg Neutrophils # 7.8 K/mm3 (1.8-7.7) H 10/01/16 08:35 Seg Neutrophils # Man 8.9 K/mm3 (1.8-7.7) H 09/02/16 05:00 Band Neutrophils # 1.1 K/mm3 09/02/16 05:00 Lymphocytes # (Manual) 1.8 K/mm3 (1.2-5.4) 09/02/16 05:00 Abs React Lymphs (Man) 0.0 K/mm3 09/02/16 05:00 Monocytes # (Manual) 0.5 K/mm3 (0.0-0.8) 09/02/16 05:00 Eosinophils # (Manual) 0.0 K/mm3 (0.0-0.4) 09/02/16 05:00 Basophils # (Manual) 0.0 K/mm3 (0.0-0.1) 09/02/16 05:00 Metamyelocytes # 0.0 K/mm3 09/02/16 05:00 Myelocytes # 0.0 K/mm3 09/02/16 05:00 Promyelocytes # 0.0 K/mm3 09/02/16 05:00 Blast Cells # 0.0 K/mm3 09/02/16 05:00 WBC Morphology Not Reportable 09/02/16 05:00 Hypersegmented Neuts Not Reportable 09/02/16 05:00 Hyposegmented Neuts Not Reportable 09/02/16 05:00 Hypogranular Neuts Not Reportable 09/02/16 05:00 Smudge Cells Not Reportable 09/02/16 05:00 Toxic Granulation Not Reportable 09/02/16 05:00 Toxic Vacuolation Not Reportable 09/02/16 05:00 Dohle Bodies Not Reportable 09/02/16 05:00 [place]-Huet Anomaly Not Reportable 09/02/16 05:00 Feli Rods Not Reportable 09/02/16 05:00 Platelet Estimate Consistent w auto 09/02/16 05:00 Clumped Platelets Not Reportable 09/02/16 05:00 Plt Clumps, EDTA Not Reportable 09/02/16 05:00 Large Platelets Not Reportable 09/02/16 05:00 Giant Platelets Not Reportable 09/02/16 05:00 Platelet Satelliting Not Reportable 09/02/16 05:00 Plt Morphology Comment Not Reportable 09/02/16 05:00 RBC Morphology Not Reportable 09/02/16 05:00 Dimorphic RBCs Not Reportable 09/02/16 05:00 Polychromasia Rare 09/02/16 05:00 Hypochromasia Not Reportable 09/02/16 05:00 Poikilocytosis Not Reportable 09/02/16 05:00 Anisocytosis 1+ 09/02/16 05:00 Microcytosis Not Reportable 09/02/16 05:00 Macrocytosis 1+ 09/02/16 05:00 Spherocytes Not Reportable 09/02/16 05:00 Pappenheimer Bodies Not Reportable 09/02/16 05:00 Sickle Cells Not Reportable 09/02/16 05:00 Target Cells Not Reportable 09/02/16 05:00 Tear Drop Cells Not Reportable 09/02/16 05:00 Ovalocytes Not Reportable 09/02/16 05:00 Helmet Cells Not Reportable 09/02/16 05:00 [place]-Ramer Bodies Not Reportable 09/02/16 05:00 [place] Rings Not Reportable 09/02/16 05:00 [place] Cells Not Reportable 09/02/16 05:00 Bite Cells Not Reportable 09/02/16 05:00 Crenated Cell Not Reportable 09/02/16 05:00 Elliptocytes Not Reportable 09/02/16 05:00 Acanthocytes (Spur) Not Reportable 09/02/16 05:00 Rouleaux Not Reportable 09/02/16 05:00 Hemoglobin C Crystals Not Reportable 09/02/16 05:00 Schistocytes Not Reportable 09/02/16 05:00 Malaria parasites Not Reportable 09/02/16 05:00 Manny Bodies Not Reportable 09/02/16 05:00 Hem Pathologist Commnt No 09/02/16 05:00 PT 14.4 Sec. (12.2-14.9) 09/30/16 17:30 INR 1.13 (0.87-1.13) 09/30/16 17:30 APTT 30.7 Sec. (24.2-36.6) 09/30/16 17:30 POC ABG pH 7.460 (7.35-7.45) H 09/22/16 03:26 POC ABG pCO2 29.9 (35-45) L 09/22/16 03:26 POC ABG pO2 112 (80-105) H 09/22/16 03:26 POC ABG HCO3 21.3 09/22/16 03:26 POC ABG Total CO2 22 09/22/16 03:26 POC ABG O2 Sat 99 09/22/16 03:26 POC ABG Base Excess -3 09/22/16 03:26 VBG pH 7.366 (7.320-7.420) 08/29/16 17:40 FiO2 25 % 09/22/16 03:26 Sodium 140 mmol/L (137-145) 10/04/16 08:00 Potassium 3.8 mmol/L (3.6-5.0) 10/04/16 08:00 Chloride 106.3 mmol/L (98-107) 10/04/16 08:00 Carbon Dioxide 21 mmol/L (22-30) L 10/04/16 08:00 Anion Gap 17 mmol/L 10/04/16 08:00 BUN 18 mg/dL (7-17) H 10/04/16 08:00 Creatinine 0.5 mg/dL (0.7-1.2) L 10/04/16 08:00 Estimated GFR > 60 ml/min 10/04/16 08:00 BUN/Creatinine Ratio 36.00 % 10/04/16 08:00 Glucose 159 mg/dL (65-100) H 10/04/16 08:00 POC Glucose 120 (70-105) H 10/04/16 11:55 Lactic Acid 1.90 mmol/L (0.7-2.0) 09/07/16 15:00 Calcium 8.2 mg/dL (8.4-10.2) L 10/04/16 08:00 Phosphorus 3.60 mg/dL (2.5-4.5) 08/29/16 21:59 Magnesium 1.50 mg/dL (1.7-2.3) L 09/30/16 08:30 Total Bilirubin 0.70 mg/dL (0.1-1.2) 09/11/16 05:00 AST 167 units/L (5-40) H 09/11/16 05:00 ALT 145 units/L (7-56) H 09/11/16 05:00 Alkaline Phosphatase 631 units/L (35-129) H 09/11/16 05:00 Ammonia 39.0 umol/L (25-60) 09/07/16 15:00 Total Creatine Kinase 36 units/L (30-135) 09/06/16 11:07 CK-MB (CK-2) < 1.0 ng/mL (0.0-4.0) 09/06/16 11:07 CK-MB (CK-2) Rel Index 2.7 (0-4) 09/06/16 11:07 Troponin T 0.080 ng/mL (0.00-0.029) H 09/06/16 11:07 C-Reactive Protein 10.20 mg/dL (0.00-1.30) H 08/30/16 22:20 NT-Pro-B Natriuret Pep 1712 pg/mL (0-900) H 08/29/16 17:40 Total Protein 5.1 g/dL (6.3-8.2) L 09/11/16 05:00 Albumin 1.6 g/dL (3.9-5) L 09/11/16 05:00 Albumin/Globulin Ratio 0.5 % 09/11/16 05:00 Prealbumin 0.120 g/L (0.200-0.400) L 08/29/16 21:59 Triglycerides 225 mg/dL (2-149) H 08/29/16 17:40 Cholesterol 130 mg/dL (50-199) 08/29/16 17:40 LDL Cholesterol Direct 82 mg/dL (50-130) 08/29/16 17:40 HDL Cholesterol 3 mg/dL (40-59) L 08/29/16 17:40 Cholesterol/HDL Ratio 43.33 % 08/29/16 17:40 TSH 5.220 mlU/mL (0.270-4.200) H 09/09/16 18:10 Urine Color Yellow (Yellow) 08/31/16 15:37 Urine Turbidity Clear (Clear) 08/31/16 15:37 Urine pH 5.0 (5.0-7.0) 08/31/16 15:37 Ur Specific [place] 1.009 (1.003-1.030) 08/31/16 15:37 Urine Protein <15 mg/dl mg/dL (Negative) 08/31/16 15:37 Urine Glucose (UA) Neg mg/dL (Negative) 08/31/16 15:37 Urine Ketones Neg mg/dL (Negative) 08/31/16 15:37 Urine Blood Sm (Negative) 08/31/16 15:37 Urine Nitrite Neg (Negative) 08/31/16 15:37 Urine Bilirubin Neg (Negative) 08/31/16 15:37 Urine Urobilinogen < 2.0 mg/dL (<2.0) 08/31/16 15:37 Ur Leukocyte Esterase Sm (Negative) 08/31/16 15:37 Urine WBC (Auto) 3.0 /HPF (0.0-6.0) 08/31/16 15:37 Urine RBC (Auto) 1.0 /HPF (0.0-6.0) 08/31/16 15:37 U Epithel Cells (Auto) < 1.0 /HPF (0-13.0) 08/31/16 15:37 Urine Bacteria (Auto) 1+ /HPF (Negative) 08/31/16 15:37 Hyaline Casts 5 /LPF 08/31/16 15:37 Urine Mucus Few /HPF 08/31/16 15:37 Blood Type O POSITIVE 09/21/16 08:20 Antibody Screen TNR 09/21/16 08:20 PATRICK Antibody Screen Negative 09/21/16 08:20 Crossmatch See Detail 09/21/16 08:20
[2016-10-05] MEDS: DUONEB 0.5 MG-3 MG/3 ML SOLN IH SCH ×3 (02:13→14:56)
[2016-10-05] MEDS: NOVOLOG SUB-Q SCH ×5 (02:53→19:23)
[2016-10-05] MEDS: PROAMATINE PO SCH ×2 (06:31→14:26)
[2016-10-05] MEDS: FERROUS SULFATE PO SCH (09:38)
[2016-10-05] MEDS: POTASSIUM CHLORIDE FEEDTUBE SCH (09:38)
[2016-10-05] MEDS: FOLVITE PO SCH (09:39)
[2016-10-05] MEDS: SYNTHROID PO SCH (09:39)
[2016-10-05] MEDS: KEPPRA PO SCH (09:39)
[2016-10-05] MEDS: PROTONIX PO SCH (09:39)
[2016-10-05] MEDS: LEVEMIR SUB-Q SCH (09:40)
[2016-10-05] MEDS: CORDARONE 900 MG in D5W 482 ML IV SCH (11:00)
--- NOTE | 2016-10-05 11:12 | Progress Note ---
Subjective Date of service: 10/05/16 Principal diagnosis: Acute Hypoxemic Hypercapnic Resp Failure; Severe Sepsis Interval history: Seen and examined at bedside; 24 hour events reviewed; nursing and respiratory care staff consulted; no adverse overnight events reported to me; Objective Vital Signs - 12hr 10/04/16 10/04/16 10/05/16 23:26 23:30 00:00 Temperature 98.3 F Pulse Rate 70 72 82 Pulse Rate [ Anterior Bilateral Throughout] Pulse Rate [ 78 From Monitor] Respiratory 26 H 30 H Rate Respiratory Rate [Anterior Bilateral Throughout] Blood Pressure 132/58 132/58 126/55 O2 Sat by Pulse 98 100 100 Oximetry 10/05/16 10/05/16 10/05/16 01:00 02:00 02:13 Temperature Pulse Rate 72 80 Pulse Rate [ 75 Anterior Bilateral Throughout] Pulse Rate [ From Monitor] Respiratory 28 H 22 Rate Respiratory 28 H Rate [Anterior Bilateral Throughout] Blood Pressure 138/67 136/70 O2 Sat by Pulse 100 100 Oximetry 10/05/16 10/05/16 10/05/16 02:28 03:00 04:00 Temperature 97.5 F L Pulse Rate 74 66 Pulse Rate [ 77 Anterior Bilateral Throughout] Pulse Rate [ 67 From Monitor] Respiratory 20 29 H Rate Respiratory 28 H Rate [Anterior Bilateral Throughout] Blood Pressure 140/74 139/47 O2 Sat by Pulse 100 100 Oximetry 10/05/16 10/05/16 10/05/16 04:33 05:00 06:00 Temperature Pulse Rate 70 64 68 Pulse Rate [ Anterior Bilateral Throughout] Pulse Rate [ From Monitor] Respiratory 25 H 30 H Rate Respiratory Rate [Anterior Bilateral Throughout] Blood Pressure 139/47 129/55 146/64 O2 Sat by Pulse 100 100 100 Oximetry 10/05/16 10/05/16 10/05/16 07:00 08:00 09:00 Temperature 98.5 F Pulse Rate 76 68 78 Pulse Rate [ Anterior Bilateral Throughout] Pulse Rate [ From Monitor] Respiratory 29 H 24 26 H Rate Respiratory Rate [Anterior Bilateral Throughout] Blood Pressure 146/75 141/65 146/71 O2 Sat by Pulse 100 99 100 Oximetry 10/05/16 10/05/16 10/05/16 09:36 09:41 10:30 Temperature Pulse Rate 76 Pulse Rate [ 76 68 Anterior Bilateral Throughout] Pulse Rate [ From Monitor] Respiratory Rate Respiratory 33 H 28 H Rate [Anterior Bilateral Throughout] Blood Pressure 146/71 O2 Sat by Pulse 100 Oximetry 10/05/16 10:54 Temperature Pulse Rate 69 Pulse Rate [ Anterior Bilateral Throughout] Pulse Rate [ From Monitor] Respiratory 29 H Rate Respiratory Rate [Anterior Bilateral Throughout] Blood Pressure 151/71 O2 Sat by Pulse 100 Oximetry Constitutional: no acute distress, other (encephalopathic) Eyes: non-icteric ENT: oropharynx moist, other (s/p tracheostomy) Neck: supple, no lymphadenopathy Effort: normal, mildly labored Ascultation: Bilateral: clear, diminished breath sounds, rales (bases) Cardiovascular: irregular rhythm Gastrointestinal: normoactive bowel sounds, hypoactive bowel sounds, soft, non- tender, non-distended, other (s/p PEG- clean and dry site. No signs of inflammation) Integumentary: normal, erythema (thighs with induration) Extremities: no cyanosis, pulses normal, no ischemia or petechiae, edema (1++) Neurologic: unable to assess, other (encephalopathic) Psychiatric: other (unable to assess) CBC and BMP: 10/04/16 08:00 10/04/16 08:00 ABG, PT/INR, D-dimer: ABG POC ABG pH 7.460 (7.35-7.45) H 09/22/16 03:26 POC ABG pCO2 29.9 (35-45) L 09/22/16 03:26 POC ABG pO2 112 (80-105) H 09/22/16 03:26 POC ABG HCO3 21.3 09/22/16 03:26 POC ABG Total CO2 22 09/22/16 03:26 POC ABG O2 Sat 99 09/22/16 03:26 PT/INR, D-dimer PT 14.4 Sec. (12.2-14.9) 09/30/16 17:30 INR 1.13 (0.87-1.13) 09/30/16 17:30 Abnormal lab findings: Abnormal Labs 08/29/16 08/30/16 08/30/16 21:59 00:16 05:39 WBC RBC Hgb Hct MCV MCH MCHC RDW Plt Count [place] % (Auto) [place] # Seg Neutrophils % Seg Neuts % (Manual) Nucleated RBC % Seg Neutrophils # Seg Neutrophils # Man PT INR POC ABG pH POC ABG pCO2 POC ABG pO2 Sodium Potassium Chloride Carbon Dioxide BUN Creatinine Glucose POC Glucose 106 H 128 H Lactic Acid Calcium Magnesium Total Bilirubin AST ALT Alkaline Phosphatase Ammonia Troponin T C-Reactive Protein Total Protein Albumin Prealbumin 0.120 L TSH Crossmatch 08/30/16 08/30/16 08/30/16 10:30 10:30 11:12 WBC 11.1 H RBC 3.16 L Hgb 8.7 L Hct 29.9 L MCV MCH MCHC 29 L RDW 25.0 H Plt Count [place] % (Auto) [place] # Seg Neutrophils % 78.6 H Seg Neuts % (Manual) Nucleated RBC % Seg Neutrophils # 8.7 H Seg Neutrophils # Man PT INR POC ABG pH POC ABG pCO2 POC ABG pO2 Sodium 135 L Potassium Chloride Carbon Dioxide 20 L BUN Creatinine 1.5 H Glucose 148 H POC Glucose 142 H Lactic Acid Calcium 7.2 L Magnesium Total Bilirubin 1.30 H AST 143 H ALT Alkaline Phosphatase 392 H Ammonia Troponin T C-Reactive Protein Total Protein 6.1 L Albumin 1.2 L Prealbumin TSH Crossmatch 08/30/16 08/30/16 08/30/16 17:41 18:03 18:18 WBC RBC Hgb Hct MCV MCH MCHC RDW Plt Count [place] % (Auto) [place] # Seg Neutrophils % Seg Neuts % (Manual) Nucleated RBC % Seg Neutrophils # Seg Neutrophils # Man PT INR POC ABG pH 7.316 L POC ABG pCO2 POC ABG pO2 44 L 59 L Sodium Potassium Chloride Carbon Dioxide BUN Creatinine Glucose POC Glucose 150 H Lactic Acid Calcium Magnesium Total Bilirubin AST ALT Alkaline Phosphatase Ammonia Troponin T C-Reactive Protein Total Protein Albumin Prealbumin TSH Crossmatch 08/30/16 08/30/16 08/31/16 22:20 22:20 00:11 WBC RBC Hgb Hct MCV MCH MCHC RDW Plt Count [place] % (Auto) [place] # Seg Neutrophils % Seg Neuts % (Manual) Nucleated RBC % Seg Neutrophils # Seg Neutrophils # Man PT INR POC ABG pH POC ABG pCO2 POC ABG pO2 Sodium Potassium Chloride Carbon Dioxide BUN Creatinine Glucose POC Glucose 133 H Lactic Acid 2.30 H* Calcium Magnesium Total Bilirubin AST ALT Alkaline Phosphatase Ammonia Troponin T C-Reactive Protein 10.20 H Total Protein Albumin Prealbumin TSH Crossmatch 08/31/16 08/31/16 08/31/16 04:20 04:20 04:20 WBC 18.3 H RBC 3.19 L Hgb 8.8 L Hct 30.0 L MCV MCH 27 L MCHC 29 L RDW 23.9 H Plt Count [place] % (Auto) [place] # Seg Neutrophils % Seg Neuts % (Manual) Nucleated RBC % Seg Neutrophils # Seg Neutrophils # Cristian PT 16.8 H INR 1.37 H POC ABG pH POC ABG pCO2 POC ABG pO2 Sodium 136 L Potassium Chloride Carbon Dioxide 19 L BUN Creatinine 1.5 H Glucose 125 H POC Glucose Lactic Acid Calcium 7.0 L Magnesium Total Bilirubin 1.50 H AST 131 H ALT Alkaline Phosphatase 431 H Ammonia Troponin T C-Reactive Protein Total Protein 6.2 L Albumin 1.2 L Prealbumin TSH Crossmatch 08/31/16 08/31/16 08/31/16 04:20 05:22 05:24 WBC RBC Hgb Hct MCV MCH MCHC RDW Plt Count [place] % (Auto) [place] # Seg Neutrophils % Seg Neuts % (Manual) Nucleated RBC % Seg Neutrophils # Seg Neutrophils # Cristian PT INR POC ABG pH POC ABG pCO2 POC ABG pO2 142 H Sodium Potassium Chloride Carbon Dioxide BUN Creatinine Glucose POC Glucose 123 H Lactic Acid Calcium Magnesium Total Bilirubin AST ALT Alkaline Phosphatase Ammonia 70.0 H Troponin T C-Reactive Protein Total Protein Albumin Prealbumin TSH Crossmatch 08/31/16 08/31/16 08/31/16 12:10 15:45 17:38 WBC RBC Hgb Hct MCV MCH MCHC RDW Plt Count [place] % (Auto) [place] # Seg Neutrophils % Seg Neuts % (Manual) Nucleated RBC % Seg Neutrophils # Seg Neutrophils # Cristian PT INR POC ABG pH POC ABG pCO2 POC ABG pO2 Sodium 136 L Potassium Chloride Carbon Dioxide 21 L BUN Creatinine 1.5 H Glucose 160 H POC Glucose 147 H 151 H Lactic Acid Calcium 6.9 L Magnesium Total Bilirubin AST ALT Alkaline Phosphatase Ammonia Troponin T 0.109 H* D C-Reactive Protein Total Protein Albumin Prealbumin TSH Crossmatch 09/01/16 09/01/16 09/01/16 00:09 04:00 04:00 WBC 14.8 H RBC 2.89 L Hgb 7.8 L Hct 27.2 L MCV MCH 27 L MCHC 29 L RDW 24.4 H Plt Count [place] % (Auto) [place] # Seg Neutrophils % Seg Neuts % (Manual) Nucleated RBC % Seg Neutrophils # Seg Neutrophils # Cristian PT 18.2 H INR 1.51 H POC ABG pH POC ABG pCO2 POC ABG pO2 Sodium Potassium Chloride Carbon Dioxide BUN Creatinine Glucose POC Glucose 192 H Lactic Acid Calcium Magnesium Total Bilirubin AST ALT Alkaline Phosphatase Ammonia Troponin T C-Reactive Protein Total Protein Albumin Prealbumin TSH Crossmatch 09/01/16 09/01/16 09/01/16 04:00 05:28 11:28 WBC RBC Hgb Hct MCV MCH MCHC RDW Plt Count [place] % (Auto) [place] # Seg Neutrophils % Seg Neuts % (Manual) Nucleated RBC % Seg Neutrophils # Seg Neutrophils # Man PT INR POC ABG pH POC ABG pCO2 POC ABG pO2 Sodium Potassium Chloride Carbon Dioxide 20 L BUN Creatinine 1.6 H Glucose 183 H POC Glucose 189 H 207 H Lactic Acid Calcium 6.9 L Magnesium Total Bilirubin 1.30 H AST 138 H ALT Alkaline Phosphatase 520 H Ammonia Troponin T C-Reactive Protein Total Protein 6.1 L Albumin 1.2 L Prealbumin TSH Crossmatch 09/01/16 09/01/16 09/02/16 16:56 23:49 05:00 WBC RBC Hgb Hct MCV MCH MCHC RDW Plt Count [place] % (Auto) [place] # Seg Neutrophils % Seg Neuts % (Manual) Nucleated RBC % Seg Neutrophils # Seg Neutrophils # Man PT 18.0 H INR 1.49 H POC ABG pH POC ABG pCO2 POC ABG pO2 Sodium Potassium Chloride Carbon Dioxide BUN Creatinine Glucose POC Glucose 250 H 307 H Lactic Acid Calcium Magnesium Total Bilirubin AST ALT Alkaline Phosphatase Ammonia Troponin T C-Reactive Protein Total Protein Albumin Prealbumin TSH Crossmatch 09/02/16 09/02/16 09/02/16 05:00 05:00 05:45 WBC 12.3 H RBC 2.57 L Hgb 7.1 L Hct 23.4 L MCV MCH MCHC RDW 23.9 H Plt Count [place] % (Auto) [place] # Seg Neutrophils % Seg Neuts % (Manual) 72.0 H Nucleated RBC % 25.0 H Seg Neutrophils # Seg Neutrophils # Man 8.9 H PT INR POC ABG pH POC ABG pCO2 POC ABG pO2 Sodium Potassium Chloride Carbon Dioxide BUN Creatinine 1.4 H Glucose 299 H POC Glucose 327 H Lactic Acid Calcium 7.0 L Magnesium Total Bilirubin AST ALT Alkaline Phosphatase Ammonia Troponin T C-Reactive Protein Total Protein Albumin Prealbumin TSH Crossmatch 05/24/17 05/24/17 05/24/17 12:22 17:22 23:24 WBC RBC Hgb Hct MCV MCH MCHC RDW Plt Count [place] % (Auto) [place] # Seg Neutrophils % Seg Neuts % (Manual) Nucleated RBC % Seg Neutrophils # Seg Neutrophils # Man PT INR POC ABG pH POC ABG pCO2 POC ABG pO2 Sodium Potassium Chloride Carbon Dioxide BUN Creatinine Glucose POC Glucose 310 H 358 H 286 H Lactic Acid Calcium Magnesium Total Bilirubin AST ALT Alkaline Phosphatase Ammonia Troponin T C-Reactive Protein Total Protein Albumin Prealbumin TSH Crossmatch 09/03/16 09/03/16 09/03/16 04:10 04:10 04:10 WBC 11.8 H RBC 2.29 L Hgb 6.1 L Hct 21.0 L MCV MCH 27 L MCHC 29 L RDW 24.1 H Plt Count [place] % (Auto) [place] # Seg Neutrophils % Seg Neuts % (Manual) Nucleated RBC % Seg Neutrophils # Seg Neutrophils # Man PT 17.6 H INR 1.45 H POC ABG pH POC ABG pCO2 POC ABG pO2 Sodium Potassium Chloride Carbon Dioxide BUN Creatinine 1.4 H Glucose 301 H POC Glucose Lactic Acid Calcium 7.0 L Magnesium Total Bilirubin AST ALT Alkaline Phosphatase Ammonia Troponin T C-Reactive Protein Total Protein Albumin Prealbumin TSH Crossmatch 09/03/16 09/03/16 09/03/16 05:59 11:36 17:42 WBC RBC Hgb Hct MCV MCH MCHC RDW Plt Count [place] % (Auto) [place] # Seg Neutrophils % Seg Neuts % (Manual) Nucleated RBC % Seg Neutrophils # Seg Neutrophils # Man PT INR POC ABG pH POC ABG pCO2 POC ABG pO2 Sodium Potassium Chloride Carbon Dioxide BUN Creatinine Glucose POC Glucose 351 H 285 H 259 H Lactic Acid Calcium Magnesium Total Bilirubin AST ALT Alkaline Phosphatase Ammonia Troponin T C-Reactive Protein Total Protein Albumin Prealbumin TSH Crossmatch 09/03/16 09/04/16 09/04/16 23:00 04:27 05:36 WBC RBC Hgb Hct MCV MCH MCHC RDW Plt Count [place] % (Auto) [place] # Seg Neutrophils % Seg Neuts % (Manual) Nucleated RBC % Seg Neutrophils # Seg Neutrophils # Man PT INR POC ABG pH 7.544 H POC ABG pCO2 30.8 L POC ABG pO2 78 L Sodium Potassium Chloride Carbon Dioxide BUN Creatinine Glucose POC Glucose 192 H 228 H Lactic Acid Calcium Magnesium Total Bilirubin AST ALT Alkaline Phosphatase Ammonia Troponin T C-Reactive Protein Total Protein Albumin Prealbumin TSH Crossmatch 09/04/16 09/04/16 09/04/16 06:37 06:37 06:39 WBC 21.0 H RBC 2.22 L Hgb 6.0 L Hct 20.1 L MCV MCH 27 L MCHC RDW 24.3 H Plt Count [place] % (Auto) [place] # Seg Neutrophils % Seg Neuts % (Manual) Nucleated RBC % Seg Neutrophils # Seg Neutrophils # Cristian PT 16.8 H INR 1.37 H POC ABG pH POC ABG pCO2 POC ABG pO2 Sodium Potassium Chloride Carbon Dioxide BUN Creatinine 1.4 H Glucose 201 H POC Glucose Lactic Acid Calcium 7.1 L Magnesium Total Bilirubin AST ALT Alkaline Phosphatase Ammonia Troponin T C-Reactive Protein Total Protein Albumin Prealbumin TSH Crossmatch 09/04/16 09/04/16 09/04/16 12:14 15:47 17:41 WBC RBC Hgb Hct MCV MCH MCHC RDW Plt Count [place] % (Auto) [place] # Seg Neutrophils % Seg Neuts % (Manual) Nucleated RBC % Seg Neutrophils # Seg Neutrophils # Man PT INR POC ABG pH POC ABG pCO2 POC ABG pO2 Sodium Potassium Chloride Carbon Dioxide BUN Creatinine Glucose POC Glucose 176 H 218 H Lactic Acid Calcium Magnesium Total Bilirubin AST ALT Alkaline Phosphatase Ammonia Troponin T C-Reactive Protein Total Protein Albumin Prealbumin TSH Crossmatch See Detail 09/04/16 09/04/16 09/05/16 21:59 23:48 04:30 WBC RBC Hgb Hct MCV MCH MCHC RDW Plt Count [place] % (Auto) [place] # Seg Neutrophils % Seg Neuts % (Manual) Nucleated RBC % Seg Neutrophils # Seg Neutrophils # Cristian PT 17.2 H INR 1.41 H POC ABG pH POC ABG pCO2 POC ABG pO2 Sodium Potassium Chloride Carbon Dioxide BUN Creatinine Glucose POC Glucose 170 H 121 H Lactic Acid Calcium Magnesium Total Bilirubin AST ALT Alkaline Phosphatase Ammonia Troponin T C-Reactive Protein Total Protein Albumin Prealbumin TSH Crossmatch 09/05/16 09/05/16 09/05/16 04:30 04:30 05:09 WBC 31.9 H RBC 3.11 L Hgb 8.5 L Hct 28.3 L D MCV MCH 27 L MCHC RDW 21.0 H Plt Count [place] % (Auto) [place] # Seg Neutrophils % Seg Neuts % (Manual) Nucleated RBC % Seg Neutrophils # Seg Neutrophils # Man PT INR POC ABG pH 7.226 L POC ABG pCO2 61.6 H POC ABG pO2 68 L Sodium 134 L Potassium 5.5 H Chloride 96.6 L Carbon Dioxide BUN 23 H Creatinine 1.6 H Glucose 116 H POC Glucose Lactic Acid Calcium 7.1 L Magnesium Total Bilirubin AST ALT Alkaline Phosphatase Ammonia Troponin T C-Reactive Protein Total Protein Albumin Prealbumin TSH Crossmatch 09/05/16 09/05/16 09/05/16 05:33 12:08 17:32 WBC RBC Hgb Hct MCV MCH MCHC RDW Plt Count [place] % (Auto) [place] # Seg Neutrophils % Seg Neuts % (Manual) Nucleated RBC % Seg Neutrophils # Seg Neutrophils # Man PT INR POC ABG pH POC ABG pCO2 POC ABG pO2 Sodium Potassium Chloride Carbon Dioxide BUN Creatinine Glucose POC Glucose 114 H 147 H 174 H Lactic Acid Calcium Magnesium Total Bilirubin AST ALT Alkaline Phosphatase Ammonia Troponin T C-Reactive Protein Total Protein Albumin Prealbumin TSH Crossmatch 09/06/16 09/06/16 09/06/16 03:30 03:30 03:30 WBC 25.4 H RBC 2.57 L Hgb 7.2 L Hct 22.8 L MCV MCH MCHC RDW 20.9 H Plt Count 138 L [place] % (Auto) [place] # Seg Neutrophils % Seg Neuts % (Manual) Nucleated RBC % Seg Neutrophils # Seg Neutrophils # Man PT 16.4 H INR 1.33 H POC ABG pH POC ABG pCO2 POC ABG pO2 Sodium Potassium Chloride Carbon Dioxide BUN 36 H Creatinine 1.9 H Glucose POC Glucose Lactic Acid Calcium 7.2 L Magnesium Total Bilirubin AST ALT Alkaline Phosphatase Ammonia Troponin T C-Reactive Protein Total Protein Albumin Prealbumin TSH Crossmatch 09/06/16 09/06/16 09/06/16 11:07 12:03 14:44 WBC RBC Hgb Hct MCV MCH MCHC RDW Plt Count [place] % (Auto) [place] # Seg Neutrophils % Seg Neuts % (Manual) Nucleated RBC % Seg Neutrophils # Seg Neutrophils # Man PT INR POC ABG pH POC ABG pCO2 POC ABG pO2 Sodium Potassium Chloride Carbon Dioxide BUN Creatinine Glucose POC Glucose 61 L 55 L Lactic Acid Calcium Magnesium Total Bilirubin AST ALT Alkaline Phosphatase Ammonia Troponin T 0.080 H C-Reactive Protein Total Protein Albumin Prealbumin TSH Crossmatch 09/06/16 09/06/16 09/07/16 21:05 23:53 03:36 WBC RBC Hgb Hct MCV MCH MCHC RDW Plt Count [place] % (Auto) [place] # Seg Neutrophils % Seg Neuts % (Manual) Nucleated RBC % Seg Neutrophils # Seg Neutrophils # Man PT INR POC ABG pH POC ABG pCO2 POC ABG pO2 Sodium Potassium Chloride Carbon Dioxide BUN Creatinine Glucose POC Glucose 140 H 178 H 243 H Lactic Acid Calcium Magnesium Total Bilirubin AST ALT Alkaline Phosphatase Ammonia Troponin T C-Reactive Protein Total Protein Albumin Prealbumin TSH Crossmatch 09/07/16 09/07/16 09/07/16 03:42 03:42 05:04 WBC 17.3 H RBC 2.69 L Hgb 7.6 L Hct 23.8 L MCV MCH MCHC RDW 20.5 H Plt Count 137 L [place] % (Auto) [place] # Seg Neutrophils % Seg Neuts % (Manual) Nucleated RBC % Seg Neutrophils # Seg Neutrophils # Man PT INR POC ABG pH POC ABG pCO2 POC ABG pO2 Sodium Potassium 3.3 L Chloride Carbon Dioxide BUN 38 H Creatinine 1.6 H Glucose 201 H POC Glucose 241 H Lactic Acid Calcium 7.4 L Magnesium Total Bilirubin AST ALT Alkaline Phosphatase Ammonia Troponin T C-Reactive Protein Total Protein Albumin Prealbumin TSH Crossmatch 09/07/16 09/07/16 09/07/16 11:46 17:41 23:18 WBC RBC Hgb Hct MCV MCH MCHC RDW Plt Count [place] % (Auto) [place] # Seg Neutrophils % Seg Neuts % (Manual) Nucleated RBC % Seg Neutrophils # Seg Neutrophils # Man PT INR POC ABG pH POC ABG pCO2 POC ABG pO2 Sodium Potassium Chloride Carbon Dioxide BUN Creatinine Glucose POC Glucose 313 H 227 H 116 H Lactic Acid Calcium Magnesium Total Bilirubin AST ALT Alkaline Phosphatase Ammonia Troponin T C-Reactive Protein Total Protein Albumin Prealbumin TSH Crossmatch 09/08/16 09/08/16 09/08/16 04:00 04:00 05:15 WBC 18.4 H RBC 2.43 L Hgb 6.9 L Hct 21.5 L MCV MCH MCHC RDW 20.5 H Plt Count 119 L [place] % (Auto) [place] # Seg Neutrophils % Seg Neuts % (Manual) Nucleated RBC % Seg Neutrophils # Seg Neutrophils # Man PT INR POC ABG pH 7.458 H POC ABG pCO2 POC ABG pO2 177 H Sodium Potassium 3.5 L Chloride Carbon Dioxide BUN 37 H Creatinine 1.3 H Glucose POC Glucose Lactic Acid Calcium 7.1 L Magnesium Total Bilirubin AST ALT Alkaline Phosphatase Ammonia Troponin T C-Reactive Protein Total Protein Albumin Prealbumin TSH Crossmatch 09/08/16 09/08/16 09/08/16 11:00 15:58 23:16 WBC RBC Hgb Hct MCV MCH MCHC RDW Plt Count [place] % (Auto) [place] # Seg Neutrophils % Seg Neuts % (Manual) Nucleated RBC % Seg Neutrophils # Seg Neutrophils # Man PT INR POC ABG pH POC ABG pCO2 POC ABG pO2 113 H Sodium Potassium Chloride Carbon Dioxide BUN Creatinine Glucose POC Glucose 40 L Lactic Acid Calcium Magnesium Total Bilirubin AST ALT Alkaline Phosphatase Ammonia Troponin T C-Reactive Protein Total Protein Albumin Prealbumin TSH Crossmatch See Detail 09/09/16 09/09/16 09/09/16 05:02 12:33 18:10 WBC RBC Hgb Hct MCV MCH MCHC RDW Plt Count [place] % (Auto) [place] # Seg Neutrophils % Seg Neuts % (Manual) Nucleated RBC % Seg Neutrophils # Seg Neutrophils # Man PT INR POC ABG pH 7.454 H POC ABG pCO2 POC ABG pO2 75 L Sodium Potassium Chloride Carbon Dioxide BUN Creatinine Glucose POC Glucose 59 L Lactic Acid Calcium Magnesium Total Bilirubin AST ALT Alkaline Phosphatase Ammonia Troponin T C-Reactive Protein Total Protein Albumin Prealbumin TSH 5.220 H Crossmatch 09/09/16 09/09/16 09/09/16 18:10 18:10 18:42 WBC 17.0 H RBC 2.90 L Hgb 8.5 L Hct 26.1 L MCV MCH MCHC RDW 17.9 H Plt Count 126 L [place] % (Auto) [place] # Seg Neutrophils % Seg Neuts % (Manual) Nucleated RBC % Seg Neutrophils # Seg Neutrophils # Man PT INR POC ABG pH POC ABG pCO2 POC ABG pO2 Sodium Potassium Chloride Carbon Dioxide BUN 36 H Creatinine Glucose 133 H POC Glucose 148 H Lactic Acid Calcium 6.9 L Magnesium Total Bilirubin AST 253 H ALT 184 H Alkaline Phosphatase 729 H Ammonia Troponin T C-Reactive Protein Total Protein 5.1 L Albumin 1.7 L Prealbumin TSH Crossmatch 09/09/16 09/10/16 09/10/16 23:22 05:10 11:43 WBC RBC Hgb Hct MCV MCH MCHC RDW Plt Count [place] % (Auto) [place] # Seg Neutrophils % Seg Neuts % (Manual) Nucleated RBC % Seg Neutrophils # Seg Neutrophils # Man PT INR POC ABG pH POC ABG pCO2 POC ABG pO2 Sodium Potassium Chloride Carbon Dioxide BUN 35 H Creatinine Glucose 240 H POC Glucose 170 H 268 H Lactic Acid Calcium 6.8 L Magnesium Total Bilirubin AST 226 H ALT 171 H Alkaline Phosphatase 710 H Ammonia Troponin T C-Reactive Protein Total Protein 5.2 L Albumin 1.7 L Prealbumin TSH Crossmatch 09/10/16 09/11/16 09/11/16 17:51 01:07 05:00 WBC RBC Hgb Hct MCV MCH MCHC RDW Plt Count [place] % (Auto) [place] # Seg Neutrophils % Seg Neuts % (Manual) Nucleated RBC % Seg Neutrophils # Seg Neutrophils # Man PT INR POC ABG pH POC ABG pCO2 POC ABG pO2 Sodium Potassium 2.9 L* Chloride Carbon Dioxide BUN 35 H Creatinine Glucose 274 H POC Glucose 334 H 223 H Lactic Acid Calcium 6.9 L Magnesium Total Bilirubin AST 167 H ALT 145 H Alkaline Phosphatase 631 H Ammonia Troponin T C-Reactive Protein Total Protein 5.1 L Albumin 1.6 L Prealbumin TSH Crossmatch 09/11/16 09/11/16 09/11/16 05:01 12:16 17:12 WBC RBC Hgb Hct MCV MCH MCHC RDW Plt Count [place] % (Auto) [place] # Seg Neutrophils % Seg Neuts % (Manual) Nucleated RBC % Seg Neutrophils # Seg Neutrophils # Man PT INR POC ABG pH POC ABG pCO2 POC ABG pO2 Sodium Potassium Chloride Carbon Dioxide BUN Creatinine Glucose POC Glucose 305 H 219 H 171 H Lactic Acid Calcium Magnesium Total Bilirubin AST ALT Alkaline Phosphatase Ammonia Troponin T C-Reactive Protein Total Protein Albumin Prealbumin TSH Crossmatch 09/11/16 09/12/16 09/12/16 23:35 03:33 05:00 WBC 12.9 H RBC 2.81 L Hgb 8.2 L Hct 25.4 L MCV MCH MCHC RDW 17.9 H Plt Count [place] % (Auto) [place] # Seg Neutrophils % Seg Neuts % (Manual) Nucleated RBC % Seg Neutrophils # Seg Neutrophils # Man PT INR POC ABG pH POC ABG pCO2 POC ABG pO2 Sodium Potassium Chloride Carbon Dioxide BUN Creatinine Glucose POC Glucose 216 H 183 H Lactic Acid Calcium Magnesium Total Bilirubin AST ALT Alkaline Phosphatase Ammonia Troponin T C-Reactive Protein Total Protein Albumin Prealbumin TSH Crossmatch 09/12/16 09/12/16 09/12/16 05:00 15:15 18:30 WBC RBC Hgb Hct MCV MCH MCHC RDW Plt Count [place] % (Auto) [place] # Seg Neutrophils % Seg Neuts % (Manual) Nucleated RBC % Seg Neutrophils # Seg Neutrophils # Man PT INR POC ABG pH POC ABG pCO2 POC ABG pO2 Sodium Potassium 3.0 L 3.4 L Chloride Carbon Dioxide BUN 33 H Creatinine 0.5 L Glucose POC Glucose 215 H Lactic Acid Calcium 7.0 L Magnesium Total Bilirubin AST ALT Alkaline Phosphatase Ammonia Troponin T C-Reactive Protein Total Protein Albumin Prealbumin TSH Crossmatch 09/12/16 09/13/16 09/13/16 23:17 05:50 05:50 WBC RBC 2.93 L Hgb 8.8 L Hct 26.7 L MCV MCH MCHC RDW 18.0 H Plt Count [place] % (Auto) [place] # Seg Neutrophils % Seg Neuts % (Manual) Nucleated RBC % Seg Neutrophils # Seg Neutrophils # Man PT INR POC ABG pH POC ABG pCO2 POC ABG pO2 Sodium Potassium 2.6 L* D Chloride Carbon Dioxide BUN 29 H Creatinine 0.5 L Glucose 106 H POC Glucose 155 H Lactic Acid Calcium 7.3 L Magnesium Total Bilirubin AST ALT Alkaline Phosphatase Ammonia Troponin T C-Reactive Protein Total Protein Albumin Prealbumin TSH Crossmatch 09/13/16 09/13/16 09/13/16 05:53 11:43 15:07 WBC RBC Hgb Hct MCV MCH MCHC RDW Plt Count [place] % (Auto) [place] # Seg Neutrophils % Seg Neuts % (Manual) Nucleated RBC % Seg Neutrophils # Seg Neutrophils # Man PT INR POC ABG pH POC ABG pCO2 POC ABG pO2 Sodium Potassium 2.8 L* Chloride Carbon Dioxide BUN Creatinine Glucose POC Glucose 119 H 129 H Lactic Acid Calcium Magnesium Total Bilirubin AST ALT Alkaline Phosphatase Ammonia Troponin T C-Reactive Protein Total Protein Albumin Prealbumin TSH Crossmatch 09/13/16 09/13/16 09/14/16 17:39 23:30 05:34 WBC RBC Hgb Hct MCV MCH MCHC RDW Plt Count [place] % (Auto) [place] # Seg Neutrophils % Seg Neuts % (Manual) Nucleated RBC % Seg Neutrophils # Seg Neutrophils # Man PT INR POC ABG pH POC ABG pCO2 POC ABG pO2 Sodium Potassium Chloride Carbon Dioxide BUN Creatinine Glucose POC Glucose 144 H 196 H 175 H Lactic Acid Calcium Magnesium Total Bilirubin AST ALT Alkaline Phosphatase Ammonia Troponin T C-Reactive Protein Total Protein Albumin Prealbumin TSH Crossmatch 09/14/16 09/14/16 09/14/16 06:24 06:24 12:41 WBC RBC 2.82 L Hgb 8.4 L Hct 25.7 L MCV MCH MCHC RDW 18.0 H Plt Count [place] % (Auto) [place] # Seg Neutrophils % Seg Neuts % (Manual) Nucleated RBC % Seg Neutrophils # Seg Neutrophils # Man PT INR POC ABG pH POC ABG pCO2 POC ABG pO2 Sodium Potassium 2.9 L* Chloride 107.3 H Carbon Dioxide BUN 26 H Creatinine 0.4 L Glucose 169 H POC Glucose 184 H Lactic Acid Calcium 7.5 L Magnesium Total Bilirubin AST ALT Alkaline Phosphatase Ammonia Troponin T C-Reactive Protein Total Protein Albumin Prealbumin TSH Crossmatch 09/14/16 09/14/16 09/14/16 14:50 17:57 23:34 WBC RBC Hgb Hct MCV MCH MCHC RDW Plt Count [place] % (Auto) [place] # Seg Neutrophils % Seg Neuts % (Manual) Nucleated RBC % Seg Neutrophils # Seg Neutrophils # Man PT INR POC ABG pH POC ABG pCO2 POC ABG pO2 Sodium Potassium 3.3 L Chloride Carbon Dioxide BUN Creatinine Glucose POC Glucose 191 H 178 H Lactic Acid Calcium Magnesium Total Bilirubin AST ALT Alkaline Phosphatase Ammonia Troponin T C-Reactive Protein Total Protein Albumin Prealbumin TSH Crossmatch 09/15/16 09/15/16 09/15/16 05:02 07:57 07:57 WBC RBC 3.04 L Hgb 9.2 L Hct 28.2 L MCV MCH MCHC RDW 18.8 H Plt Count [place] % (Auto) [place] # Seg Neutrophils % Seg Neuts % (Manual) Nucleated RBC % Seg Neutrophils # Seg Neutrophils # Man PT INR POC ABG pH POC ABG pCO2 POC ABG pO2 Sodium Potassium Chloride 107.2 H Carbon Dioxide BUN 26 H Creatinine 0.4 L Glucose 160 H POC Glucose 192 H Lactic Acid Calcium 7.7 L Magnesium Total Bilirubin AST ALT Alkaline Phosphatase Ammonia Troponin T C-Reactive Protein Total Protein Albumin Prealbumin TSH Crossmatch 09/15/16 09/15/16 09/15/16 11:23 17:51 23:45 WBC RBC Hgb Hct MCV MCH MCHC RDW Plt Count [place] % (Auto) [place] # Seg Neutrophils % Seg Neuts % (Manual) Nucleated RBC % Seg Neutrophils # Seg Neutrophils # Man PT INR POC ABG pH POC ABG pCO2 POC ABG pO2 Sodium Potassium Chloride Carbon Dioxide BUN Creatinine Glucose POC Glucose 232 H 240 H 251 H Lactic Acid Calcium Magnesium Total Bilirubin AST ALT Alkaline Phosphatase Ammonia Troponin T C-Reactive Protein Total Protein Albumin Prealbumin TSH Crossmatch 09/16/16 09/16/16 09/16/16 04:55 04:55 05:38 WBC RBC 2.84 L Hgb 8.6 L Hct 26.2 L MCV MCH MCHC RDW 18.8 H Plt Count [place] % (Auto) [place] # Seg Neutrophils % Seg Neuts % (Manual) Nucleated RBC % Seg Neutrophils # Seg Neutrophils # Man PT INR POC ABG pH POC ABG pCO2 POC ABG pO2 Sodium Potassium 3.1 L Chloride 107.6 H Carbon Dioxide BUN 25 H Creatinine 0.3 L Glucose 134 H POC Glucose 157 H Lactic Acid Calcium 7.6 L Magnesium Total Bilirubin AST ALT Alkaline Phosphatase Ammonia Troponin T C-Reactive Protein Total Protein Albumin Prealbumin TSH Crossmatch 09/16/16 09/16/16 09/16/16 11:53 17:56 23:54 WBC RBC Hgb Hct MCV MCH MCHC RDW Plt Count [place] % (Auto) [place] # Seg Neutrophils % Seg Neuts % (Manual) Nucleated RBC % Seg Neutrophils # Seg Neutrophils # Man PT INR POC ABG pH POC ABG pCO2 POC ABG pO2 Sodium Potassium Chloride Carbon Dioxide BUN Creatinine Glucose POC Glucose 137 H 138 H 179 H Lactic Acid Calcium Magnesium Total Bilirubin AST ALT Alkaline Phosphatase Ammonia Troponin T C-Reactive Protein Total Protein Albumin Prealbumin TSH Crossmatch 09/17/16 09/17/16 09/17/16 05:00 05:00 05:28 WBC RBC 2.77 L Hgb 8.2 L Hct 25.9 L MCV MCH MCHC RDW 19.1 H Plt Count [place] % (Auto) [place] # Seg Neutrophils % Seg Neuts % (Manual) Nucleated RBC % Seg Neutrophils # Seg Neutrophils # Man PT INR POC ABG pH POC ABG pCO2 POC ABG pO2 Sodium Potassium 3.5 L Chloride 108.4 H Carbon Dioxide BUN 29 H Creatinine 0.3 L Glucose 117 H POC Glucose 142 H Lactic Acid Calcium 7.4 L Magnesium Total Bilirubin AST ALT Alkaline Phosphatase Ammonia Troponin T C-Reactive Protein Total Protein Albumin Prealbumin TSH Crossmatch 09/17/16 09/17/16 09/18/16 18:07 23:31 06:29 WBC RBC Hgb Hct MCV MCH MCHC RDW Plt Count [place] % (Auto) [place] # Seg Neutrophils % Seg Neuts % (Manual) Nucleated RBC % Seg Neutrophils # Seg Neutrophils # Man PT INR POC ABG pH POC ABG pCO2 POC ABG pO2 Sodium Potassium Chloride Carbon Dioxide BUN Creatinine Glucose POC Glucose 173 H 240 H 282 H Lactic Acid Calcium Magnesium Total Bilirubin AST ALT Alkaline Phosphatase Ammonia Troponin T C-Reactive Protein Total Protein Albumin Prealbumin TSH Crossmatch 09/18/16 09/18/16 09/18/16 06:30 12:21 17:55 WBC RBC Hgb Hct MCV MCH MCHC RDW Plt Count [place] % (Auto) [place] # Seg Neutrophils % Seg Neuts % (Manual) Nucleated RBC % Seg Neutrophils # Seg Neutrophils # Man PT INR POC ABG pH POC ABG pCO2 POC ABG pO2 Sodium 148 H Potassium Chloride 110.7 H Carbon Dioxide BUN 30 H Creatinine 0.4 L Glucose 249 H POC Glucose 248 H 255 H Lactic Acid Calcium 7.4 L Magnesium 1.60 L Total Bilirubin AST ALT Alkaline Phosphatase Ammonia Troponin T C-Reactive Protein Total Protein Albumin Prealbumin TSH Crossmatch 09/19/16 09/19/16 09/19/16 00:09 04:45 05:11 WBC RBC Hgb Hct MCV MCH MCHC RDW Plt Count [place] % (Auto) [place] # Seg Neutrophils % Seg Neuts % (Manual) Nucleated RBC % Seg Neutrophils # Seg Neutrophils # Man PT INR POC ABG pH POC ABG pCO2 POC ABG pO2 Sodium 146 H Potassium Chloride 110.8 H Carbon Dioxide BUN 34 H Creatinine 0.4 L Glucose 278 H POC Glucose 324 H 278 H Lactic Acid Calcium 7.3 L Magnesium Total Bilirubin AST ALT Alkaline Phosphatase Ammonia Troponin T C-Reactive Protein Total Protein Albumin Prealbumin TSH Crossmatch 09/19/16 09/19/16 09/19/16 11:12 12:09 17:10 WBC RBC Hgb Hct MCV MCH MCHC RDW Plt Count [place] % (Auto) [place] # Seg Neutrophils % Seg Neuts % (Manual) Nucleated RBC % Seg Neutrophils # Seg Neutrophils # Man PT INR POC ABG pH POC ABG pCO2 POC ABG pO2 Sodium Potassium Chloride Carbon Dioxide BUN Creatinine Glucose POC Glucose 306 H 225 H 329 H Lactic Acid Calcium Magnesium Total Bilirubin AST ALT Alkaline Phosphatase Ammonia Troponin T C-Reactive Protein Total Protein Albumin Prealbumin TSH Crossmatch 09/19/16 09/20/16 09/20/16 23:34 04:52 05:00 WBC RBC Hgb Hct MCV MCH MCHC RDW Plt Count [place] % (Auto) [place] # Seg Neutrophils % Seg Neuts % (Manual) Nucleated RBC % Seg Neutrophils # Seg Neutrophils # Man PT INR POC ABG pH POC ABG pCO2 POC ABG pO2 Sodium Potassium Chloride 108.6 H Carbon Dioxide BUN 35 H Creatinine 0.4 L Glucose 370 H POC Glucose 376 H 374 H Lactic Acid Calcium 7.3 L Magnesium Total Bilirubin AST ALT Alkaline Phosphatase Ammonia Troponin T C-Reactive Protein Total Protein Albumin Prealbumin TSH Crossmatch 09/20/16 09/20/16 09/20/16 11:18 17:39 23:49 WBC RBC Hgb Hct MCV MCH MCHC RDW Plt Count [place] % (Auto) [place] # Seg Neutrophils % Seg Neuts % (Manual) Nucleated RBC % Seg Neutrophils # Seg Neutrophils # Man PT INR POC ABG pH POC ABG pCO2 POC ABG pO2 Sodium Potassium Chloride Carbon Dioxide BUN Creatinine Glucose POC Glucose 342 H 416 H 440 H Lactic Acid Calcium Magnesium Total Bilirubin AST ALT Alkaline Phosphatase Ammonia Troponin T C-Reactive Protein Total Protein Albumin Prealbumin TSH Crossmatch 09/21/16 09/21/16 09/21/16 04:58 05:15 05:15 WBC RBC 1.48 L Hgb 4.6 L* Hct 14.9 L* MCV 100 H MCH MCHC RDW 25.4 H Plt Count [place] % (Auto) [place] # Seg Neutrophils % Seg Neuts % (Manual) Nucleated RBC % Seg Neutrophils # Seg Neutrophils # Man PT INR POC ABG pH POC ABG pCO2 POC ABG pO2 Sodium Potassium Chloride 107.5 H Carbon Dioxide 20 L BUN 45 H Creatinine 0.6 L Glucose 490 H POC Glucose > 500 H Lactic Acid Calcium 7.0 L Magnesium Total Bilirubin AST ALT Alkaline Phosphatase Ammonia Troponin T C-Reactive Protein Total Protein Albumin Prealbumin TSH Crossmatch 09/21/16 09/21/16 09/21/16 08:20 09:17 12:09 WBC RBC Hgb Hct MCV MCH MCHC RDW Plt Count [place] % (Auto) [place] # Seg Neutrophils % Seg Neuts % (Manual) Nucleated RBC % Seg Neutrophils # Seg Neutrophils # Man PT INR POC ABG pH 7.464 H POC ABG pCO2 29.3 L POC ABG pO2 198 H Sodium Potassium Chloride Carbon Dioxide BUN Creatinine Glucose POC Glucose 248 H Lactic Acid Calcium Magnesium Total Bilirubin AST ALT Alkaline Phosphatase Ammonia Troponin T C-Reactive Protein Total Protein Albumin Prealbumin TSH Crossmatch See Detail 09/21/16 09/21/16 09/21/16 15:21 17:36 18:49 WBC RBC Hgb Hct MCV MCH MCHC RDW Plt Count [place] % (Auto) [place] # Seg Neutrophils % Seg Neuts % (Manual) Nucleated RBC % Seg Neutrophils # Seg Neutrophils # Man PT INR POC ABG pH POC ABG pCO2 POC ABG pO2 Sodium Potassium Chloride Carbon Dioxide BUN Creatinine Glucose POC Glucose 403 H 437 H 482 H Lactic Acid Calcium Magnesium Total Bilirubin AST ALT Alkaline Phosphatase Ammonia Troponin T C-Reactive Protein Total Protein Albumin Prealbumin TSH Crossmatch 09/21/16 09/22/16 09/22/16 23:29 00:00 01:29 WBC 14.8 H RBC 2.94 L Hgb 9.1 L D Hct 27.5 L D MCV MCH MCHC RDW 16.7 H Plt Count [place] % (Auto) [place] # Seg Neutrophils % Seg Neuts % (Manual) Nucleated RBC % Seg Neutrophils # Seg Neutrophils # Man PT INR POC ABG pH POC ABG pCO2 POC ABG pO2 Sodium Potassium Chloride Carbon Dioxide BUN Creatinine Glucose POC Glucose 311 H 288 H Lactic Acid Calcium Magnesium Total Bilirubin AST ALT Alkaline Phosphatase Ammonia Troponin T C-Reactive Protein Total Protein Albumin Prealbumin TSH Crossmatch 09/22/16 09/22/16 09/22/16 02:29 03:12 03:26 WBC RBC Hgb Hct MCV MCH MCHC RDW Plt Count [place] % (Auto) [place] # Seg Neutrophils % Seg Neuts % (Manual) Nucleated RBC % Seg Neutrophils # Seg Neutrophils # Man PT INR POC ABG pH 7.460 H POC ABG pCO2 29.9 L POC ABG pO2 112 H Sodium Potassium Chloride Carbon Dioxide BUN Creatinine Glucose POC Glucose 261 H 239 H Lactic Acid Calcium Magnesium Total Bilirubin AST ALT Alkaline Phosphatase Ammonia Troponin T C-Reactive Protein Total Protein Albumin Prealbumin TSH Crossmatch 09/22/16 09/22/16 09/22/16 05:35 06:40 06:40 WBC 13.5 H RBC 3.18 L Hgb 9.5 L Hct 28.8 L MCV MCH MCHC RDW 16.2 H Plt Count [place] % (Auto) [place] # Seg Neutrophils % Seg Neuts % (Manual) Nucleated RBC % Seg Neutrophils # Seg Neutrophils # Man PT INR POC ABG pH POC ABG pCO2 POC ABG pO2 Sodium 147 H Potassium 3.2 L D Chloride 112.3 H Carbon Dioxide BUN 49 H Creatinine 0.6 L Glucose 102 H POC Glucose 181 H Lactic Acid Calcium 7.5 L Magnesium Total Bilirubin AST ALT Alkaline Phosphatase Ammonia Troponin T C-Reactive Protein Total Protein Albumin Prealbumin TSH Crossmatch 09/22/16 09/22/16 09/22/16 07:16 18:03 20:05 WBC RBC Hgb Hct MCV MCH MCHC RDW Plt Count [place] % (Auto) [place] # Seg Neutrophils % Seg Neuts % (Manual) Nucleated RBC % Seg Neutrophils # Seg Neutrophils # Man PT INR POC ABG pH POC ABG pCO2 POC ABG pO2 Sodium Potassium Chloride Carbon Dioxide BUN Creatinine Glucose POC Glucose 152 H 115 H 107 H Lactic Acid Calcium Magnesium Total Bilirubin AST ALT Alkaline Phosphatase Ammonia Troponin T C-Reactive Protein Total Protein Albumin Prealbumin TSH Crossmatch 09/22/16 09/22/16 09/23/16 21:00 23:55 02:02 WBC 13.8 H RBC 3.04 L Hgb 9.2 L Hct 28.0 L MCV MCH MCHC RDW 16.2 H Plt Count [place] % (Auto) [place] # Seg Neutrophils % Seg Neuts % (Manual) Nucleated RBC % Seg Neutrophils # Seg Neutrophils # Man PT INR POC ABG pH POC ABG pCO2 POC ABG pO2 Sodium Potassium Chloride Carbon Dioxide BUN Creatinine Glucose POC Glucose 133 H 110 H Lactic Acid Calcium Magnesium Total Bilirubin AST ALT Alkaline Phosphatase Ammonia Troponin T C-Reactive Protein Total Protein Albumin Prealbumin TSH Crossmatch 09/23/16 09/23/16 09/23/16 04:45 04:45 05:36 WBC 13.6 H RBC 2.86 L Hgb 8.6 L Hct 26.4 L MCV MCH MCHC RDW 17.1 H Plt Count [place] % (Auto) [place] # Seg Neutrophils % Seg Neuts % (Manual) Nucleated RBC % Seg Neutrophils # Seg Neutrophils # Man PT INR POC ABG pH POC ABG pCO2 POC ABG pO2 Sodium Potassium Chloride 109.2 H Carbon Dioxide 21 L BUN 43 H Creatinine 0.5 L Glucose 152 H POC Glucose 133 H Lactic Acid Calcium 7.7 L Magnesium Total Bilirubin AST ALT Alkaline Phosphatase Ammonia Troponin T C-Reactive Protein Total Protein Albumin Prealbumin TSH Crossmatch 06/14/17 06/14/17 06/14/17 07:42 11:55 13:26 WBC RBC Hgb Hct MCV MCH MCHC RDW Plt Count [place] % (Auto) [place] # Seg Neutrophils % Seg Neuts % (Manual) Nucleated RBC % Seg Neutrophils # Seg Neutrophils # Man PT INR POC ABG pH POC ABG pCO2 POC ABG pO2 Sodium Potassium Chloride Carbon Dioxide BUN Creatinine Glucose POC Glucose 175 H 170 H 195 H Lactic Acid Calcium Magnesium Total Bilirubin AST ALT Alkaline Phosphatase Ammonia Troponin T C-Reactive Protein Total Protein Albumin Prealbumin TSH Crossmatch 09/23/16 09/23/16 09/24/16 17:37 21:54 02:56 WBC RBC Hgb Hct MCV MCH MCHC RDW Plt Count [place] % (Auto) [place] # Seg Neutrophils % Seg Neuts % (Manual) Nucleated RBC % Seg Neutrophils # Seg Neutrophils # Man PT INR POC ABG pH POC ABG pCO2 POC ABG pO2 Sodium Potassium Chloride Carbon Dioxide BUN Creatinine Glucose POC Glucose 182 H 184 H 187 H Lactic Acid Calcium Magnesium Total Bilirubin AST ALT Alkaline Phosphatase Ammonia Troponin T C-Reactive Protein Total Protein Albumin Prealbumin TSH Crossmatch 09/24/16 09/24/16 09/24/16 05:00 05:00 05:22 WBC RBC 2.82 L Hgb 8.8 L Hct 27.0 L MCV MCH MCHC RDW 17.2 H Plt Count [place] % (Auto) [place] # Seg Neutrophils % Seg Neuts % (Manual) Nucleated RBC % Seg Neutrophils # Seg Neutrophils # Man PT INR POC ABG pH POC ABG pCO2 POC ABG pO2 Sodium 148 H Potassium Chloride 115.0 H Carbon Dioxide 21 L BUN 38 H Creatinine 0.6 L Glucose 163 H POC Glucose 194 H Lactic Acid Calcium 7.9 L Magnesium Total Bilirubin AST ALT Alkaline Phosphatase Ammonia Troponin T C-Reactive Protein Total Protein Albumin Prealbumin TSH Crossmatch 09/24/16 09/24/16 09/24/16 11:02 13:55 17:37 WBC RBC Hgb Hct MCV MCH MCHC RDW Plt Count [place] % (Auto) [place] # Seg Neutrophils % Seg Neuts % (Manual) Nucleated RBC % Seg Neutrophils # Seg Neutrophils # Man PT INR POC ABG pH POC ABG pCO2 POC ABG pO2 Sodium Potassium Chloride Carbon Dioxide BUN Creatinine Glucose POC Glucose 210 H 182 H 169 H Lactic Acid Calcium Magnesium Total Bilirubin AST ALT Alkaline Phosphatase Ammonia Troponin T C-Reactive Protein Total Protein Albumin Prealbumin TSH Crossmatch 06/09/25/16 09/25/16 02:15 05:14 09:39 WBC RBC Hgb Hct MCV MCH MCHC RDW Plt Count [place] % (Auto) [place] # Seg Neutrophils % Seg Neuts % (Manual) Nucleated RBC % Seg Neutrophils # Seg Neutrophils # Man PT INR POC ABG pH POC ABG pCO2 POC ABG pO2 Sodium Potassium Chloride Carbon Dioxide BUN Creatinine Glucose POC Glucose 139 H 151 H 184 H Lactic Acid Calcium Magnesium Total Bilirubin AST ALT Alkaline Phosphatase Ammonia Troponin T C-Reactive Protein Total Protein Albumin Prealbumin TSH Crossmatch 09/25/16 09/25/16 09/25/16 09:48 09:48 13:47 WBC RBC 2.76 L Hgb 8.7 L Hct 26.2 L MCV MCH MCHC RDW 17.3 H Plt Count [place] % (Auto) [place] # Seg Neutrophils % Seg Neuts % (Manual) Nucleated RBC % Seg Neutrophils # Seg Neutrophils # Man PT INR POC ABG pH POC ABG pCO2 POC ABG pO2 Sodium 150 H Potassium Chloride 115.6 H Carbon Dioxide BUN 34 H Creatinine 0.4 L Glucose 168 H POC Glucose 167 H Lactic Acid Calcium 7.9 L Magnesium Total Bilirubin AST ALT Alkaline Phosphatase Ammonia Troponin T C-Reactive Protein Total Protein Albumin Prealbumin TSH Crossmatch 09/25/16 09/25/16 09/26/16 17:57 21:44 00:05 WBC RBC Hgb Hct MCV MCH MCHC RDW Plt Count [place] % (Auto) [place] # Seg Neutrophils % Seg Neuts % (Manual) Nucleated RBC % Seg Neutrophils # Seg Neutrophils # Man PT INR POC ABG pH POC ABG pCO2 POC ABG pO2 Sodium Potassium Chloride Carbon Dioxide BUN Creatinine Glucose POC Glucose 206 H 188 H 188 H Lactic Acid Calcium Magnesium Total Bilirubin AST ALT Alkaline Phosphatase Ammonia Troponin T C-Reactive Protein Total Protein Albumin Prealbumin TSH Crossmatch 09/26/16 09/26/16 09/26/16 01:29 03:46 03:46 WBC RBC 2.76 L Hgb 8.6 L Hct 26.2 L MCV MCH MCHC RDW 18.2 H Plt Count [place] % (Auto) [place] # Seg Neutrophils % Seg Neuts % (Manual) Nucleated RBC % Seg Neutrophils # Seg Neutrophils # Man PT INR POC ABG pH POC ABG pCO2 POC ABG pO2 Sodium 147 H Potassium Chloride 114.1 H Carbon Dioxide BUN 28 H Creatinine 0.4 L Glucose 172 H POC Glucose 198 H Lactic Acid Calcium 7.6 L Magnesium Total Bilirubin AST ALT Alkaline Phosphatase Ammonia Troponin T C-Reactive Protein Total Protein Albumin Prealbumin TSH Crossmatch 09/26/16 09/26/16 09/26/16 08:08 12:39 16:56 WBC RBC Hgb Hct MCV MCH MCHC RDW Plt Count [place] % (Auto) [place] # Seg Neutrophils % Seg Neuts % (Manual) Nucleated RBC % Seg Neutrophils # Seg Neutrophils # Man PT INR POC ABG pH POC ABG pCO2 POC ABG pO2 Sodium Potassium Chloride Carbon Dioxide BUN Creatinine Glucose POC Glucose 161 H 176 H 128 H Lactic Acid Calcium Magnesium Total Bilirubin AST ALT Alkaline Phosphatase Ammonia Troponin T C-Reactive Protein Total Protein Albumin Prealbumin TSH Crossmatch 09/26/16 09/27/16 09/27/16 21:33 06:31 07:23 WBC RBC Hgb Hct MCV MCH MCHC RDW Plt Count [place] % (Auto) [place] # Seg Neutrophils % Seg Neuts % (Manual) Nucleated RBC % Seg Neutrophils # Seg Neutrophils # Man PT INR POC ABG pH POC ABG pCO2 POC ABG pO2 Sodium Potassium Chloride Carbon Dioxide BUN Creatinine Glucose POC Glucose 120 H 209 H 173 H Lactic Acid Calcium Magnesium Total Bilirubin AST ALT Alkaline Phosphatase Ammonia Troponin T C-Reactive Protein Total Protein Albumin Prealbumin TSH Crossmatch 09/27/16 09/27/16 09/27/16 11:31 17:22 20:41 WBC RBC Hgb Hct MCV MCH MCHC RDW Plt Count [place] % (Auto) [place] # Seg Neutrophils % Seg Neuts % (Manual) Nucleated RBC % Seg Neutrophils # Seg Neutrophils # Man PT INR POC ABG pH POC ABG pCO2 POC ABG pO2 Sodium Potassium Chloride Carbon Dioxide BUN Creatinine Glucose POC Glucose 185 H 167 H 185 H Lactic Acid Calcium Magnesium Total Bilirubin AST ALT Alkaline Phosphatase Ammonia Troponin T C-Reactive Protein Total Protein Albumin Prealbumin TSH Crossmatch 09/28/16 09/28/16 09/28/16 00:30 04:00 04:00 WBC RBC 3.00 L Hgb 9.4 L Hct 28.7 L MCV MCH MCHC RDW 19.1 H Plt Count [place] % (Auto) [place] # Seg Neutrophils % Seg Neuts % (Manual) Nucleated RBC % Seg Neutrophils # Seg Neutrophils # Man PT INR POC ABG pH POC ABG pCO2 POC ABG pO2 Sodium Potassium Chloride 110.5 H Carbon Dioxide BUN 24 H Creatinine 0.3 L Glucose 214 H POC Glucose 159 H Lactic Acid Calcium 7.9 L Magnesium Total Bilirubin AST ALT Alkaline Phosphatase Ammonia Troponin T C-Reactive Protein Total Protein Albumin Prealbumin TSH Crossmatch 09/28/16 09/28/16 09/28/16 04:12 09:58 15:15 WBC RBC Hgb Hct MCV MCH MCHC RDW Plt Count [place] % (Auto) [place] # Seg Neutrophils % Seg Neuts % (Manual) Nucleated RBC % Seg Neutrophils # Seg Neutrophils # Man PT INR POC ABG pH POC ABG pCO2 POC ABG pO2 Sodium Potassium Chloride Carbon Dioxide BUN Creatinine Glucose POC Glucose 209 H 191 H 162 H Lactic Acid Calcium Magnesium Total Bilirubin AST ALT Alkaline Phosphatase Ammonia Troponin T C-Reactive Protein Total Protein Albumin Prealbumin TSH Crossmatch 09/28/16 09/28/16 09/29/16 17:58 21:38 02:38 WBC RBC Hgb Hct MCV MCH MCHC RDW Plt Count [place] % (Auto) [place] # Seg Neutrophils % Seg Neuts % (Manual) Nucleated RBC % Seg Neutrophils # Seg Neutrophils # Man PT INR POC ABG pH POC ABG pCO2 POC ABG pO2 Sodium Potassium Chloride Carbon Dioxide BUN Creatinine Glucose POC Glucose 174 H 162 H 180 H Lactic Acid Calcium Magnesium Total Bilirubin AST ALT Alkaline Phosphatase Ammonia Troponin T C-Reactive Protein Total Protein Albumin Prealbumin TSH Crossmatch 09/29/16 09/29/16 09/29/16 05:16 10:24 14:37 WBC RBC Hgb Hct MCV MCH MCHC RDW Plt Count [place] % (Auto) [place] # Seg Neutrophils % Seg Neuts % (Manual) Nucleated RBC % Seg Neutrophils # Seg Neutrophils # Man PT INR POC ABG pH POC ABG pCO2 POC ABG pO2 Sodium Potassium Chloride Carbon Dioxide BUN Creatinine Glucose POC Glucose 152 H 182 H 190 H Lactic Acid Calcium Magnesium Total Bilirubin AST ALT Alkaline Phosphatase Ammonia Troponin T C-Reactive Protein Total Protein Albumin Prealbumin TSH Crossmatch 09/29/16 09/29/16 09/30/16 17:30 21:39 01:45 WBC RBC Hgb Hct MCV MCH MCHC RDW Plt Count [place] % (Auto) [place] # Seg Neutrophils % Seg Neuts % (Manual) Nucleated RBC % Seg Neutrophils # Seg Neutrophils # Man PT INR POC ABG pH POC ABG pCO2 POC ABG pO2 Sodium Potassium Chloride Carbon Dioxide BUN Creatinine Glucose POC Glucose 192 H 219 H 210 H Lactic Acid Calcium Magnesium Total Bilirubin AST ALT Alkaline Phosphatase Ammonia Troponin T C-Reactive Protein Total Protein Albumin Prealbumin TSH Crossmatch 09/30/16 09/30/16 09/30/16 05:02 07:42 08:30 WBC RBC Hgb Hct MCV MCH MCHC RDW Plt Count [place] % (Auto) [place] # Seg Neutrophils % Seg Neuts % (Manual) Nucleated RBC % Seg Neutrophils # Seg Neutrophils # Man PT INR POC ABG pH POC ABG pCO2 POC ABG pO2 Sodium Potassium 3.5 L Chloride 108.5 H Carbon Dioxide BUN 22 H Creatinine 0.4 L Glucose 223 H POC Glucose 148 H 227 H Lactic Acid Calcium 7.8 L Magnesium 1.50 L Total Bilirubin AST ALT Alkaline Phosphatase Ammonia Troponin T C-Reactive Protein Total Protein Albumin Prealbumin TSH Crossmatch 09/30/16 09/30/16 09/30/16 11:48 15:21 18:06 WBC RBC Hgb Hct MCV MCH MCHC RDW Plt Count [place] % (Auto) [place] # Seg Neutrophils % Seg Neuts % (Manual) Nucleated RBC % Seg Neutrophils # Seg Neutrophils # Man PT INR POC ABG pH POC ABG pCO2 POC ABG pO2 Sodium Potassium Chloride Carbon Dioxide BUN Creatinine Glucose POC Glucose 286 H 281 H 194 H Lactic Acid Calcium Magnesium Total Bilirubin AST ALT Alkaline Phosphatase Ammonia Troponin T C-Reactive Protein Total Protein Albumin Prealbumin TSH Crossmatch 09/30/16 10/01/16 10/01/16 21:23 03:27 05:36 WBC RBC Hgb Hct MCV MCH MCHC RDW Plt Count [place] % (Auto) [place] # Seg Neutrophils % Seg Neuts % (Manual) Nucleated RBC % Seg Neutrophils # Seg Neutrophils # Man PT INR POC ABG pH POC ABG pCO2 POC ABG pO2 Sodium Potassium Chloride Carbon Dioxide BUN Creatinine Glucose POC Glucose 117 H 161 H 160 H Lactic Acid Calcium Magnesium Total Bilirubin AST ALT Alkaline Phosphatase Ammonia Troponin T C-Reactive Protein Total Protein Albumin Prealbumin TSH Crossmatch 10/01/16 10/01/16 10/01/16 08:35 08:35 11:06 WBC 11.7 H RBC 2.75 L Hgb 8.5 L Hct 26.5 L MCV MCH MCHC RDW 21.0 H Plt Count [place] % (Auto) 11.7 H [place] # 1.4 H Seg Neutrophils % Seg Neuts % (Manual) Nucleated RBC % Seg Neutrophils # 7.8 H Seg Neutrophils # Man PT INR POC ABG pH POC ABG pCO2 POC ABG pO2 Sodium Potassium Chloride 108.0 H Carbon Dioxide BUN 20 H Creatinine 0.4 L Glucose 137 H POC Glucose 160 H Lactic Acid Calcium 7.9 L Magnesium Total Bilirubin AST ALT Alkaline Phosphatase Ammonia Troponin T C-Reactive Protein Total Protein Albumin Prealbumin TSH Crossmatch 10/01/16 10/01/16 10/01/16 11:50 13:47 17:40 WBC RBC Hgb Hct MCV MCH MCHC RDW Plt Count [place] % (Auto) [place] # Seg Neutrophils % Seg Neuts % (Manual) Nucleated RBC % Seg Neutrophils # Seg Neutrophils # Man PT INR POC ABG pH POC ABG pCO2 POC ABG pO2 Sodium Potassium Chloride Carbon Dioxide BUN Creatinine Glucose POC Glucose 142 H 151 H 163 H Lactic Acid Calcium Magnesium Total Bilirubin AST ALT Alkaline Phosphatase Ammonia Troponin T C-Reactive Protein Total Protein Albumin Prealbumin TSH Crossmatch 10/01/16 10/02/16 10/02/16 22:02 02:03 06:21 WBC RBC Hgb Hct MCV MCH MCHC RDW Plt Count [place] % (Auto) [place] # Seg Neutrophils % Seg Neuts % (Manual) Nucleated RBC % Seg Neutrophils # Seg Neutrophils # Cristian PT INR POC ABG pH POC ABG pCO2 POC ABG pO2 Sodium Potassium Chloride Carbon Dioxide BUN Creatinine Glucose POC Glucose 179 H 144 H 153 H Lactic Acid Calcium Magnesium Total Bilirubin AST ALT Alkaline Phosphatase Ammonia Troponin T C-Reactive Protein Total Protein Albumin Prealbumin TSH Crossmatch 10/02/16 10/02/16 10/02/16 09:34 10:16 14:21 WBC RBC Hgb Hct MCV MCH MCHC RDW Plt Count [place] % (Auto) [place] # Seg Neutrophils % Seg Neuts % (Manual) Nucleated RBC % Seg Neutrophils # Seg Neutrophils # Man PT INR POC ABG pH POC ABG pCO2 POC ABG pO2 Sodium Potassium Chloride Carbon Dioxide BUN Creatinine Glucose POC Glucose 206 H 170 H 166 H Lactic Acid Calcium Magnesium Total Bilirubin AST ALT Alkaline Phosphatase Ammonia Troponin T C-Reactive Protein Total Protein Albumin Prealbumin TSH Crossmatch 10/02/16 10/02/16 10/03/16 17:29 21:30 01:47 WBC RBC Hgb Hct MCV MCH MCHC RDW Plt Count [place] % (Auto) [place] # Seg Neutrophils % Seg Neuts % (Manual) Nucleated RBC % Seg Neutrophils # Seg Neutrophils # Man PT INR POC ABG pH POC ABG pCO2 POC ABG pO2 Sodium Potassium Chloride Carbon Dioxide BUN Creatinine Glucose POC Glucose 150 H 147 H 191 H Lactic Acid Calcium Magnesium Total Bilirubin AST ALT Alkaline Phosphatase Ammonia Troponin T C-Reactive Protein Total Protein Albumin Prealbumin TSH Crossmatch 10/03/16 10/03/16 10/03/16 05:13 09:15 13:12 WBC RBC Hgb Hct MCV MCH MCHC RDW Plt Count [place] % (Auto) [place] # Seg Neutrophils % Seg Neuts % (Manual) Nucleated RBC % Seg Neutrophils # Seg Neutrophils # Man PT INR POC ABG pH POC ABG pCO2 POC ABG pO2 Sodium Potassium Chloride Carbon Dioxide BUN Creatinine Glucose POC Glucose 165 H 200 H 247 H Lactic Acid Calcium Magnesium Total Bilirubin AST ALT Alkaline Phosphatase Ammonia Troponin T C-Reactive Protein Total Protein Albumin Prealbumin TSH Crossmatch 10/03/16 10/03/16 10/04/16 16:36 21:43 02:00 WBC RBC Hgb Hct MCV MCH MCHC RDW Plt Count [place] % (Auto) [place] # Seg Neutrophils % Seg Neuts % (Manual) Nucleated RBC % Seg Neutrophils # Seg Neutrophils # Man PT INR POC ABG pH POC ABG pCO2 POC ABG pO2 Sodium Potassium Chloride Carbon Dioxide BUN Creatinine Glucose POC Glucose 187 H 107 H 223 H Lactic Acid Calcium Magnesium Total Bilirubin AST ALT Alkaline Phosphatase Ammonia Troponin T C-Reactive Protein Total Protein Albumin Prealbumin TSH Crossmatch 10/04/16 10/04/16 10/04/16 05:52 07:16 08:00 WBC 14.6 H RBC 2.70 L Hgb 8.2 L Hct 25.7 L MCV MCH MCHC RDW 21.0 H Plt Count [place] % (Auto) [place] # Seg Neutrophils % Seg Neuts % (Manual) Nucleated RBC % Seg Neutrophils # Seg Neutrophils # Man PT INR POC ABG pH POC ABG pCO2 POC ABG pO2 Sodium Potassium Chloride Carbon Dioxide BUN Creatinine Glucose POC Glucose 182 H 190 H Lactic Acid Calcium Magnesium Total Bilirubin AST ALT Alkaline Phosphatase Ammonia Troponin T C-Reactive Protein Total Protein Albumin Prealbumin TSH Crossmatch 10/04/16 10/04/16 10/04/16 08:00 11:55 17:51 WBC RBC Hgb Hct MCV MCH MCHC RDW Plt Count [place] % (Auto) [place] # Seg Neutrophils % Seg Neuts % (Manual) Nucleated RBC % Seg Neutrophils # Seg Neutrophils # Man PT INR POC ABG pH POC ABG pCO2 POC ABG pO2 Sodium Potassium Chloride Carbon Dioxide 21 L BUN 18 H Creatinine 0.5 L Glucose 159 H POC Glucose 120 H 152 H Lactic Acid Calcium 8.2 L Magnesium Total Bilirubin AST ALT Alkaline Phosphatase Ammonia Troponin T C-Reactive Protein Total Protein Albumin Prealbumin TSH Crossmatch 10/04/16 10/04/16 10/05/16 21:58 23:30 01:33 WBC RBC Hgb Hct MCV MCH MCHC RDW Plt Count [place] % (Auto) [place] # Seg Neutrophils % Seg Neuts % (Manual) Nucleated RBC % Seg Neutrophils # Seg Neutrophils # Man PT INR POC ABG pH POC ABG pCO2 POC ABG pO2 Sodium Potassium Chloride Carbon Dioxide BUN Creatinine Glucose POC Glucose 128 H 143 H 159 H Lactic Acid Calcium Magnesium Total Bilirubin AST ALT Alkaline Phosphatase Ammonia Troponin T C-Reactive Protein Total Protein Albumin Prealbumin TSH Crossmatch 10/05/16 10:08 WBC RBC Hgb Hct MCV MCH MCHC RDW Plt Count [place] % (Auto) [place] # Seg Neutrophils % Seg Neuts % (Manual) Nucleated RBC % Seg Neutrophils # Seg Neutrophils # Man PT INR POC ABG pH POC ABG pCO2 POC ABG pO2 Sodium Potassium Chloride Carbon Dioxide BUN Creatinine Glucose POC Glucose 138 H Lactic Acid Calcium Magnesium Total Bilirubin AST ALT Alkaline Phosphatase Ammonia Troponin T C-Reactive Protein Total Protein Albumin Prealbumin TSH Crossmatch Allied health notes reviewed: RT
--- NOTE | 2016-10-05 13:38 | Progress Note ---
Assessment and Plan Altered mental status/encephalopathy Chronic respiratory failure intubated on the vent Anemia requiring blood transfusion Morbid Obesity Decubitus ulcers Diabetes Afib with RVR -on IV amiodarone AND/DNR status EF 50-55% on echo 06/2016. Sinus rhythm on telemetry. We will transition to oral amiodarone for suppression of Afib. Patient considered not a candidate for oral anticoagulation due to severe anemia requiring blood transfusion. Subjective Date of service: 10/05/16 Principal diagnosis: Acute Hypoxemic Hypercapnic Resp Failure; Severe Sepsis Interval history: Sinus rhythm on telemetry. Remains on IV amiodarone drip. Objective Vital Signs Temp Pulse Pulse Pulse Resp Resp BP 10/05/16 13:00 70 18 149/69 10/05/16 12:00 97.8 F 76 29 H 147/71 10/05/16 11:00 74 18 165/72 10/05/16 10:54 69 29 H 151/71 10/05/16 10:30 68 28 H 10/05/16 10:00 73 30 H 147/72 10/05/16 09:41 76 33 H 10/05/16 09:36 76 146/71 10/05/16 09:00 78 26 H 146/71 10/05/16 08:00 98.5 F 68 24 141/65 10/05/16 07:00 76 29 H 146/75 10/05/16 06:00 68 30 H 146/64 10/05/16 05:00 64 25 H 129/55 10/05/16 04:33 70 139/47 10/05/16 04:00 97.5 F L 66 67 29 H 139/47 10/05/16 03:00 74 20 140/74 10/05/16 02:28 77 28 H 10/05/16 02:13 75 28 H 10/05/16 02:00 80 22 136/70 10/05/16 01:00 72 28 H 138/67 10/05/16 00:00 98.3 F 82 78 30 H 126/55 10/04/16 23:30 72 132/58 10/04/16 23:26 70 26 H 132/58 10/04/16 23:12 10/04/16 23:00 76 30 H 132/58 10/04/16 22:00 82 33 H 128/53 10/04/16 21:00 77 31 H 129/52 10/04/16 20:00 98.5 F 82 73 32 H 130/49 10/04/16 19:42 85 30 H 10/04/16 19:36 82 131/49 10/04/16 19:27 83 30 H 10/04/16 19:00 86 17 131/47 10/04/16 18:00 81 25 H 114/43 10/04/16 17:00 82 28 H 108/44 10/04/16 16:00 98.4 F 92 H 99 H 29 H 108/44 10/04/16 15:00 89 30 H 107/41 10/04/16 14:16 92 H 30 H 10/04/16 14:06 86 30 H 10/04/16 14:00 93 H 36 H 113/51 Pulse Ox Pulse Ox 10/05/16 13:00 100 10/05/16 12:00 100 10/05/16 11:00 100 10/05/16 10:54 100 10/05/16 10:30 10/05/16 10:00 100 10/05/16 09:41 10/05/16 09:36 100 10/05/16 09:00 100 10/05/16 08:00 99 10/05/16 07:00 100 10/05/16 06:00 100 10/05/16 05:00 100 10/05/16 04:33 100 10/05/16 04:00 100 10/05/16 03:00 100 10/05/16 02:28 10/05/16 02:13 10/05/16 02:00 100 10/05/16 01:00 100 10/05/16 00:00 100 10/04/16 23:30 100 10/04/16 23:26 98 10/04/16 23:12 100 10/04/16 23:00 99 10/04/16 22:00 99 10/04/16 21:00 99 10/04/16 20:00 99 10/04/16 19:42 10/04/16 19:36 99 10/04/16 19:27 10/04/16 19:00 99 10/04/16 18:00 98 10/04/16 17:00 99 10/04/16 16:00 99 10/04/16 15:00 99 10/04/16 14:16 10/04/16 14:06 10/04/16 14:00 98 - Physical Examination Cardiac: Positive: Reg Rate and Rhythm - Allied health notes Allied health notes reviewed: RT
[2016-10-05] MEDS ORDERED: CORDARONE PO SCH (14:00)
--- NOTE | 2016-10-05 15:25 | Discharge Summary ---
Providers - Providers Date of Admission: 08/29/16 21:57 Date of discharge: 10/05/16 Attending physician: JENNIFER GOLDSTEIN 08/29/16 22:00 Consult to Dietitian/Nutrition [CONS] Routine Physician Instructions: Assess nutrtn needs, initiate, modify, manage TF Reason For Exam: Tube feeding Reason for Consult: Write/Manage Tube Feeding Reason for Consult: Write/Manage Tube Feeding 08/29/16 22:07 Consult to Physician [CONS] Routine Consulting Provider: SNOW SUTHERLAND Reason For Exam: Ac Resp failure Place consult to:: leelee Notified:: yes Phone number called:: [phone] Was contact made?: Yes If yes, spoke with:: answering service Time called:: 08:03 08/30/16 08:34 Consult to Wound/ET Nurse [CONS] Routine Reason For Exam: wound eval 08/30/16 08:53 Consult to Physician [CONS] Routine Consulting Provider: ANGELA TOWNSEND Reason For Exam: poncho Place consult to:: se Notified:: yes Phone number called:: [phone] Was contact made?: Yes If yes, spoke with:: answering service Time called:: 09:59 09/04/16 09:45 Consult to Physician [CONS] Routine Consulting Provider: RAGHAV NUÑEZ Reason For Exam: leukocytosis, Place consult to:: Dr Nuñez Notified:: yes Phone number called:: [phone] Was contact made?: Yes If yes, spoke with:: Dr Nuñez Time called:: 10:32 09/05/16 02:46 Consult to Dietitian/Nutrition [CONS] Routine Physician Instructions: Reason For Exam: Reason for Consult: Evaluate nutritional intake 09/05/16 09:55 Consult to Dietitian/Nutrition [CONS] Routine Physician Instructions: Reason For Exam: Reason for Consult: Evaluate nutritional intake 09/07/16 12:01 Consult to Ethics Committee [CONS] Routine Reason For Exam: withdrawal from vent, who can make decision 09/08/16 11:51 Consult to Physician [CONS] Urgent Consulting Provider: EDX IZAGUIRRE Reason For Exam: evaluate for brain Place consult to:: Abeba Garo Notified:: message left on answering machine Phone number called:: [phone] 09/09/16 12:53 Consult to Physician [CONS] Routine Consulting Provider: GEOFFREY ESTRADA Reason For Exam: Trach and PEG Place consult to:: answering service Notified:: Yes Phone number called:: [phone] Was contact made?: Yes If yes, spoke with:: Em Time called:: 12:45 Comment:: "Dr. Gamino commissioning engineer will be notified" 09/16/16 15:29 Consult to Physician [CONS] Routine Consulting Provider: GEOFFREY ESTRADA Reason For Exam: Please assist with tracheostomy and PEG placement Place consult to:: Dr Gamino Notified:: MD documentation Phone number called:: chart reviewed Was contact made?: Yes If yes, spoke with:: Dr Gamino's note Time called:: 11:21 09/21/16 13:47 Consult to Physician [CONS] Stat Consulting Provider: SNOW SUTHERLAND Reason For Exam: GI Bleed Place consult to:: [facility] Notified:: Talked to Olman who will tell md commissioning engineer Phone number called:: [phone] Was contact made?: Yes If yes, spoke with:: Olman Time called:: 13:52 09/29/16 16:42 Consult to Physician [CONS] Routine Consulting Provider: LEIGH ANN CHAU Reason For Exam: SVT again, already seen before and signed off Place consult to:: Jania PONCE Notified:: yes If yes, spoke with:: Dr murguia Primary care physician: [employer] Hospitalization Condition: Fair Hospital course: Admitted August 29, 2016 Patient is a 61-year-old morbid obese woman with a history of congestive heart failure, severe protein calorie malnutrition (bilateral evangelical muscle severe wasting, hypothenar muscle wasting) with BMI of 81.6, functional quadriplegia, type 2 diabetes mellitus, hypertension, multiple skin breakdown between legs and thighs who presented to the hospital via EMS with AMS. 2D echocardiogram with ejection fraction of 50-55%. During the past admission, patient was recommended for placement but refused. On presentation to ED, patient was felt to be unable to maintain her airways and intubated the ER since 08/29/16. 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, poa: supportative care -Acute on chronic diastolic congestive heart failure: treated with diuresis -Acute on chronic respiratory failure, intubated > 96 hours -Septic shock off IV solucorticef and midodrine -Severe anemia s/p blood transfusion s/p 9units of PRBC given: monitor cbc closely -Paroxysmal atrial fibrillation, no anticoagulation due to severe anemia -Non-ST elevated OR type 2: Conservative management -Acute on chronic kidney disease III, likely secondary to vasomotor nephropathy- POA -Transaminitis-elevated alkaline phosphatase and AST: continue to monitor -Severe protein calorie malnutrition albumin 1.2 -Morbid obesity BMI 81.6 -Mulitple PRESSURE ULCERS-POA: consulted wound care -uncontrolled dm: insulin -Acute anemia with drop in HCT s/p 5 units of PRBC transfused so far. Ordered 2 more units. -Unable to get CT head due to weight issues -Dvt prophylaxis: scd only due to the anemia Disposition: LTAC declined, case management is working on plan DNR 09/04/16: Boyfriend, Tad agreed to blood transfusion, hgb is 6.0 transfused 2 units=>h/h steady, continue to monitor. For 2 days, Mr. Tad Roe declined blood products and he told me that he was her , which later was proved to be false. 09/05/16: Overnight was very eventful. New issue: Status epilepticus most likely due to anoxic brain injury, poa. She is back on 8 mcg of Levophed, which had weaned off up to the point of seizure activity Patient had status epilepticus before receiving blood transfusions. She was given multiple doses of Ativan and was still having breakthrough seizures. She was given phenobarbital and Dilantin but still having seizures. I started propofol drip which is helping. She still on IV Ativan drip also. Difficult family dynamics: Her son (she has multiple children), Srikanth and sister Leanne were at her bedside and well as her boyfriend who is not her legal , which he told me. They are upset because they didn't know patient was in the hospital. It appears the gentleman in the room is her boyfriend and not her legal He also did not notify the family the patient was here. That gentleman who is her boyfriend dropped the patient's wallet and our security called the number inside the wallet which was patient's mother's number and this is how the family found out that patient was in the hospital. I was told by RN, that patient has no , patient has 7 siblings and they are estranged from mother. No legal POA but sister Leanne is active in sister's life. Her boyfriend name is Tad Vieyra and he has consistently been at her beside, holding her hand and being supportive. 09/10/16 (resumed care): Trying to get to LTAC, still on 2 mcg of Levaphed but not sedated==>?Significant anoxic brain injury most likely poa, Ethic committee consulted because some family members want to withdraw. 09/11/16, Trach aspirated GNR, continue abx pending identification, off levaphed today. Trying to get to LTAC, they can trach her there. Only [facility] takes her insurance 09/12/16 Trach aspirate still pending, new issue of hypothermia, responded to [employer]ger, tube feeding low rate due to high residuals, abd xray unremarkable. Potassium replaced. No restraints needs, no sedation needed, poor prognosis 09/15/16(resumed care): new issue seizure, gave 1mg iv ativan x 1. Awaiting to go to [facility], they want to trach and peg when she gets there. 09/16-11/26: cpm, no new seizures. 09/18/16: [facility] did not accept patient, so trach and peg here. Patient has been intubated since 08/29/16. 09/19/16 no new issue, trying to wean 09/20/16: d/w boyfriend at bedside. He believes she is having purposefully spontaneous movements, like blinking. Heart rate went up to 150s but spontaneously went down without any medications given. 09/21/16: Overnight she became hypotensive, Levophed drip restarted at 12mcg, hgb found to be 4.6, blood transfusions ordered, hyperglycemic worse, so Levemir increased, She has apneic breathing on vent, POOR sign, anticipate w/in 48 hours because she will tire out. 09/29/16 Resumed care of Ms. Ashley, she is currently tachycardiac, HR 200s and SBP 70s. She has SVT. Ordered Amiodarone 300mg iv x 1 bolus and nss bolus 500ml and bp improved. Once bolus stopped sbp dropped below 90 again so gave another 500ml ns bolus x 1. Amiodrone iv bolus still pending. Reconsulted Cardiology. He had twitches are back. Given iv ativan last night. Start Amiodarone drip after. May need to re-start Levophed. I have kindly asked nurse to notify CCM also. Patient has lost approximately 85 lbs, hopefully [facility] will re- consider. I believe the seizures are manifestation of anoxic brain injury, poa. [facility]geron considering peg/trach on . CCT 40 minutes 09/30/16 She was off Levophed drip this morning. On Amiodarone drip, Cardiology re-called and they are following again. 10/01/16 preop diagnosis - respiratory failure postop diagnosis - same procedure - PEG tube insertion surgeon - Rahul Gamino MD asst - Joseph Brewster MD anesthesia - GETA complications - none procedure - The patient was taken to the operating room. Appropriate preop antibiotics were given. A time out was called. First, an endoscope was used to access and insufflate the stomach. Dr. Brewster accessed the stomach through the anterior abdominal wall with the access needle. To do so, he had to do a laparascopic lysis of adhesions which he will dictate as a separate dictation. Once the stomach was accessed, a guidewire was passed through the access needle. A snare was then passed through the endoscope and was closed around the guidewire. The guidewire was then pulled out through the patient's mouth with the endoscope. A 20F PEG tube was attached to the guidewire and pulled through the stomach and out the anterior abdominal wall. It was secured into place at 7 cm at the anterior abdominal wall. The endoscope was used to see the PEG tube flush with the stomach wall. The patient tolerated the procedure well. Still on Levophed and Amiodarone drip 10/02/16 still on levophed and amiodarone 10/03/16 still on levophed and amiodarone, still intubated. No sedation and no purposeful movement. 10/04/16 on warming blanket now, prognosis still not good, levophed turned off now. 10/05/16 Doing better, off warming blanket, off levophed drip and amiodarone drip changed to peg tube administration. Anticipated d/c to [facility], who has accepted, just waiting for sisterLeanne to come sign paperwork. BMI down from 81 to 67.3 Disposition: [id number]/TX-[id number] ANOTHER TYPE HLTHCARE Time spent for discharge: 40 minutes Core Measure Documentation - Palliative Care Palliative Care/ Comfort Measures: Not Applicable - Core Measures Any of the following diagnoses?: none - VTE Discharge Requirements Deep Vein Thrombosis/Pulmonary Embolism Present on Admission: No Has pt received <5 days of overlap therapy or INR<2.0: No Anticoagulant overlap therapy prescribed at discharge: No Contraindication No Overlap Therapy order at DC: Not Indicated Exam - Physical Exam Narrative exam: GEN: Critically ill, morbid obese BMI 81.6, intubated, apneic breathing==>bmi now 67.3 HEENT: Pupils are pinpoint and reactive, ET tube in place CVS: irregular irregular NORMAL S1S2 LUNGS/CHEST: NORMAL CHEST EXPANSION B, GOOD AIR ENTRY B ABD: SOFT, NONDISTENDED GBS, NO REBOUND OR GUARDING NEURO: doesn't follow commands PSY: Comatose - Constitutional Vitals: Temp Pulse Resp BP Pulse Ox 97.8 F 72 34 H 157/71 100 10/05/16 12:00 10/05/16 14:56 10/05/16 14:56 10/05/16 14:11 10/05/16 14:11 Plan Activity: other (pressure relieve mattress needed and frequent q2hr turn) Diet: per dietitian instruction Wound: per wound nurse instructions Special Instructions: record daily weights, record daily BP diary Follow up with: PRIMARY CARE, [Primary Care Provider] - 3-5 Days Prescriptions: Insulin Lispro [HumaLOG VIAL] 1 dose SQ Q6H #1 vial
--- NOTE | 2016-10-05 15:40 | Progress Note ---
Assessment and Plan Assessment and plan: Admitted August 29, 2016 Patient is a 61-year-old morbid obese woman with a history of congestive heart failure, severe protein calorie malnutrition (bilateral moravian muscle severe wasting, hypothenar muscle wasting) with BMI of 81.6, functional quadriplegia, type 2 diabetes mellitus, hypertension, multiple skin breakdown between legs and thighs who presented to the hospital via EMS with AMS. 2D echocardiogram with ejection fraction of 50-55%. During the past admission, patient was recommended for placement but refused. On presentation to ED, patient was felt to be unable to maintain her airways and intubated the ER since 08/29/16. 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, poa: supportative care -Acute on chronic diastolic congestive heart failure: treated with diuresis -Acute on chronic respiratory failure, intubated > 96 hours -Septic shock off IV solucorticef and midodrine -Severe anemia s/p blood transfusion s/p 9units of PRBC given: monitor cbc closely -Paroxysmal atrial fibrillation, no anticoagulation due to severe anemia -Non-ST elevated [place] type 2: Conservative management -Acute on chronic kidney disease III, likely secondary to vasomotor nephropathy- POA -Transaminitis-elevated alkaline phosphatase and AST: continue to monitor -Severe protein calorie malnutrition albumin 1.2 -Morbid obesity BMI 81.6 -Mulitple PRESSURE ULCERS-POA: consulted wound care -uncontrolled dm: insulin -Acute anemia with drop in HCT s/p 5 units of PRBC transfused so far. Ordered 2 more units. -Unable to get CT head due to weight issues -Dvt prophylaxis: scd only due to the anemia Disposition: LTAC declined, case management is working on plan DNR 09/04/16: BoyfriendTad agreed to blood transfusion, hgb is 6.0 transfused 2 units=>h/h steady, continue to monitor. For 2 days, Mr. Tad Roe declined blood products and he told me that he was her , which later was proved to be false. 09/05/16: Overnight was very eventful. New issue: Status epilepticus most likely due to anoxic brain injury, poa. She is back on 8 mcg of Levophed, which had weaned off up to the point of seizure activity Patient had status epilepticus before receiving blood transfusions. She was given multiple doses of Ativan and was still having breakthrough seizures. She was given phenobarbital and Dilantin but still having seizures. I started propofol drip which is helping. She still on IV Ativan drip also. Difficult family dynamics: Her son (she has multiple children), Srikanth and sister Leanne were at her bedside and well as her boyfriend who is not her legal , which he told me. They are upset because they didn't know patient was in the hospital. It appears the gentleman in the room is her boyfriend and not her legal He also did not notify the family the patient was here. That gentleman who is her boyfriend dropped the patient's wallet and our security called the number inside the wallet which was patient's mother's number and this is how the family found out that patient was in the hospital. I was told by RN, that patient has no , patient has 7 siblings and they are estranged from mother. No legal POA but sister Leanne is active in sister's life. Her boyfriend name is Tad Vieyra and he has consistently been at her beside, holding her hand and being supportive. 09/10/16 (resumed care): Trying to get to LTAC, still on 2 mcg of Levaphed but not sedated==>?Significant anoxic brain injury most likely poa, Ethic committee consulted because some family members want to withdraw. 09/11/16, Trach aspirated GNR, continue abx pending identification, off levaphed today. Trying to get to LTAC, they can trach her there. Only [facility] takes her insurance 09/12/16 Trach aspirate still pending, new issue of hypothermia, responded to [facility], tube feeding low rate due to high residuals, abd xray unremarkable. Potassium replaced. No restraints needs, no sedation needed, poor prognosis 09/15/16(resumed care): new issue seizure, gave 1mg iv ativan x 1. Awaiting to go to [facility], they want to trach and peg when she gets there. 09/16-11/26: cpm, no new seizures. 09/18/16: [facility] did not accept patient, so trach and peg here. Patient has been intubated since 08/29/16. 09/19/16 no new issue, trying to wean 09/20/16: d/w boyfriend at bedside. He believes she is having purposefully spontaneous movements, like blinking. Heart rate went up to 150s but spontaneously went down without any medications given. 09/21/16: Overnight she became hypotensive, Levophed drip restarted at 12mcg, hgb found to be 4.6, blood transfusions ordered, hyperglycemic worse, so Levemir increased, She has apneic breathing on vent, POOR sign, anticipate w/in 48 hours because she will tire out. 09/29/16 Resumed care of Ms. Ashley, she is currently tachycardiac, HR 200s and SBP 70s. She has SVT. Ordered Amiodarone 300mg iv x 1 bolus and nss bolus 500ml and bp improved. Once bolus stopped sbp dropped below 90 again so gave another 500ml ns bolus x 1. Amiodrone iv bolus still pending. Reconsulted Cardiology. He had twitches are back. Given iv ativan last night. Start Amiodarone drip after. May need to re-start Levophed. I have kindly asked nurse to notify CCM also. Patient has lost approximately 85 lbs, hopefully [facility] will re- consider. I believe the seizures are manifestation of anoxic brain injury, poa. Surgeron considering peg/trach on . CCT 40 minutes 09/30/16 She was off Levophed drip this morning. On Amiodarone drip, Cardiology re-called and they are following again. 10/01/16 preop diagnosis - respiratory failure postop diagnosis - same procedure - PEG tube insertion surgeon - Rahul Gamino MD asst - Joseph Brewster MD anesthesia - GETA complications - none procedure - The patient was taken to the operating room. Appropriate preop antibiotics were given. A time out was called. First, an endoscope was used to access and insufflate the stomach. Dr. Brewster accessed the stomach through the anterior abdominal wall with the access needle. To do so, he had to do a laparascopic lysis of adhesions which he will dictate as a separate dictation. Once the stomach was accessed, a guidewire was passed through the access needle. A snare was then passed through the endoscope and was closed around the guidewire. The guidewire was then pulled out through the patient's mouth with the endoscope. A 20F PEG tube was attached to the guidewire and pulled through the stomach and out the anterior abdominal wall. It was secured into place at 7 cm at the anterior abdominal wall. The endoscope was used to see the PEG tube flush with the stomach wall. The patient tolerated the procedure well. Still on Levophed and Amiodarone drip 10/02/16 still on levophed and amiodarone 10/03/16 still on levophed and amiodarone, still intubated. No sedation and no purposeful movement. 10/04/16 on warming blanket now, prognosis still not good, levophed turned off now. 10/05/16 Doing better, off warming blanket, off levophed drip and amiodarone drip changed to peg tube administration. Anticipated d/c to [facility], who has accepted, just waiting for sisterLeanne to come sign paperwork. BMI down from 81 to 67.3 History Interval history: Patient seen and examined. Follow up on respiratory failure. Patient still intubated. Hospitalist Physical - Physical exam Narrative exam: GEN: Critically ill, morbid obese BMI 81.6, intubated, apneic breathing==>bmi now 67.3 HEENT: Pupils are pinpoint and reactive, ET tube in place CVS: irregular irregular NORMAL S1S2 LUNGS/CHEST: NORMAL CHEST EXPANSION B, GOOD AIR ENTRY B ABD: SOFT, NONDISTENDED GBS, NO REBOUND OR GUARDING NEURO: doesn't follow commands PSY: Comatose - Constitutional Vitals: Temp Pulse Resp BP Pulse Ox 97.8 F 72 34 H 157/71 100 10/05/16 12:00 10/05/16 14:56 10/05/16 14:56 10/05/16 14:11 10/05/16 14:11 General appearance: Present: obese Results - Labs CBC & Chem 7: 10/04/16 08:00 10/04/16 08:00 Labs: Laboratory Last Values WBC 14.6 K/mm3 (4.5-11.0) H 10/04/16 08:00 RBC 2.70 M/mm3 (3.65-5.03) L 10/04/16 08:00 Hgb 8.2 gm/dl (10.1-14.3) L 10/04/16 08:00 Hct 25.7 % (30.3-42.9) L 10/04/16 08:00 MCV 95 fl (79-97) 10/04/16 08:00 MCH 30 pg (28-32) 10/04/16 08:00 MCHC 32 % (30-34) 10/04/16 08:00 RDW 21.0 % (13.2-15.2) H 10/04/16 08:00 Plt Count 287 K/mm3 (140-440) 10/04/16 08:00 Lymph % (Auto) 19.9 % (13.4-35.0) 10/01/16 08:35 Rincon % (Auto) 11.7 % (0.0-7.3) H 10/01/16 08:35 Eos % (Auto) 1.1 % (0.0-4.3) 10/01/16 08:35 Baso % (Auto) 0.4 % (0.0-1.8) 10/01/16 08:35 Lymph # 2.3 K/mm3 (1.2-5.4) 10/01/16 08:35 Rincon # 1.4 K/mm3 (0.0-0.8) H 10/01/16 08:35 Eos # 0.1 K/mm3 (0.0-0.4) 10/01/16 08:35 Baso # 0.1 K/mm3 (0.0-0.1) 10/01/16 08:35 Add Manual Diff Complete 09/02/16 05:00 Total Counted 100 09/02/16 05:00 Seg Neutrophils % 66.9 % (40.0-70.0) 10/01/16 08:35 Seg Neuts % (Manual) 72.0 % (40.0-70.0) H 09/02/16 05:00 Band Neutrophils % 9.0 % 09/02/16 05:00 Lymphocytes % (Manual) 15.0 % (13.4-35.0) 09/02/16 05:00 Reactive Lymphs % (Man) 0 % 09/02/16 05:00 Monocytes % (Manual) 4.0 % (0.0-7.3) 09/02/16 05:00 Eosinophils % (Manual) 0 % (0.0-4.3) 09/02/16 05:00 Basophils % (Manual) 0 % (0.0-1.8) 09/02/16 05:00 Metamyelocytes % 0 % 09/02/16 05:00 Myelocytes % 0 % 09/02/16 05:00 Promyelocytes % 0 % 09/02/16 05:00 Blast Cells % 0 % 09/02/16 05:00 Nucleated RBC % 25.0 % (0.0-0.9) H 09/02/16 05:00 Seg Neutrophils # 7.8 K/mm3 (1.8-7.7) H 10/01/16 08:35 Seg Neutrophils # Man 8.9 K/mm3 (1.8-7.7) H 09/02/16 05:00 Band Neutrophils # 1.1 K/mm3 09/02/16 05:00 Lymphocytes # (Manual) 1.8 K/mm3 (1.2-5.4) 09/02/16 05:00 Abs React Lymphs (Man) 0.0 K/mm3 09/02/16 05:00 Monocytes # (Manual) 0.5 K/mm3 (0.0-0.8) 09/02/16 05:00 Eosinophils # (Manual) 0.0 K/mm3 (0.0-0.4) 09/02/16 05:00 Basophils # (Manual) 0.0 K/mm3 (0.0-0.1) 09/02/16 05:00 Metamyelocytes # 0.0 K/mm3 09/02/16 05:00 Myelocytes # 0.0 K/mm3 09/02/16 05:00 Promyelocytes # 0.0 K/mm3 09/02/16 05:00 Blast Cells # 0.0 K/mm3 09/02/16 05:00 WBC Morphology Not Reportable 09/02/16 05:00 Hypersegmented Neuts Not Reportable 09/02/16 05:00 Hyposegmented Neuts Not Reportable 09/02/16 05:00 Hypogranular Neuts Not Reportable 09/02/16 05:00 Smudge Cells Not Reportable 09/02/16 05:00 Toxic Granulation Not Reportable 09/02/16 05:00 Toxic Vacuolation Not Reportable 09/02/16 05:00 Dohle Bodies Not Reportable 09/02/16 05:00 Pelger-Huet Anomaly Not Reportable 09/02/16 05:00 Feli Rods Not Reportable 09/02/16 05:00 Platelet Estimate Consistent w auto 09/02/16 05:00 Clumped Platelets Not Reportable 09/02/16 05:00 Plt Clumps, EDTA Not Reportable 09/02/16 05:00 Large Platelets Not Reportable 09/02/16 05:00 Giant Platelets Not Reportable 09/02/16 05:00 Platelet Satelliting Not Reportable 09/02/16 05:00 Plt Morphology Comment Not Reportable 09/02/16 05:00 RBC Morphology Not Reportable 09/02/16 05:00 Dimorphic RBCs Not Reportable 09/02/16 05:00 Polychromasia Rare 09/02/16 05:00 Hypochromasia Not Reportable 09/02/16 05:00 Poikilocytosis Not Reportable 09/02/16 05:00 Anisocytosis 1+ 09/02/16 05:00 Microcytosis Not Reportable 09/02/16 05:00 Macrocytosis 1+ 09/02/16 05:00 Spherocytes Not Reportable 09/02/16 05:00 Pappenheimer Bodies Not Reportable 09/02/16 05:00 Sickle Cells Not Reportable 09/02/16 05:00 Target Cells Not Reportable 09/02/16 05:00 Tear Drop Cells Not Reportable 09/02/16 05:00 Ovalocytes Not Reportable 09/02/16 05:00 Helmet Cells Not Reportable 09/02/16 05:00 Patterson-Hitchcock Bodies Not Reportable 09/02/16 05:00 Sharon Rings Not Reportable 09/02/16 05:00 Dana Cells Not Reportable 09/02/16 05:00 Bite Cells Not Reportable 09/02/16 05:00 Crenated Cell Not Reportable 09/02/16 05:00 Elliptocytes Not Reportable 09/02/16 05:00 Acanthocytes (Spur) Not Reportable 09/02/16 05:00 Rouleaux Not Reportable 09/02/16 05:00 Hemoglobin C Crystals Not Reportable 09/02/16 05:00 Schistocytes Not Reportable 09/02/16 05:00 Malaria parasites Not Reportable 09/02/16 05:00 Manny Bodies Not Reportable 09/02/16 05:00 Hem Pathologist Commnt No 09/02/16 05:00 PT 14.4 Sec. (12.2-14.9) 09/30/16 17:30 INR 1.13 (0.87-1.13) 09/30/16 17:30 APTT 30.7 Sec. (24.2-36.6) 09/30/16 17:30 POC ABG pH 7.460 (7.35-7.45) H 09/22/16 03:26 POC ABG pCO2 29.9 (35-45) L 09/22/16 03:26 POC ABG pO2 112 (80-105) H 09/22/16 03:26 POC ABG HCO3 21.3 09/22/16 03:26 POC ABG Total CO2 22 09/22/16 03:26 POC ABG O2 Sat 99 09/22/16 03:26 POC ABG Base Excess -3 09/22/16 03:26 VBG pH 7.366 (7.320-7.420) 08/29/16 17:40 FiO2 25 % 09/22/16 03:26 Sodium 140 mmol/L (137-145) 10/04/16 08:00 Potassium 3.8 mmol/L (3.6-5.0) 10/04/16 08:00 Chloride 106.3 mmol/L (98-107) 10/04/16 08:00 Carbon Dioxide 21 mmol/L (22-30) L 10/04/16 08:00 Anion Gap 17 mmol/L 10/04/16 08:00 BUN 18 mg/dL (7-17) H 10/04/16 08:00 Creatinine 0.5 mg/dL (0.7-1.2) L 10/04/16 08:00 Estimated GFR > 60 ml/min 10/04/16 08:00 BUN/Creatinine Ratio 36.00 % 10/04/16 08:00 Glucose 159 mg/dL (65-100) H 10/04/16 08:00 POC Glucose 138 (70-105) H 10/05/16 10:08 Lactic Acid 1.90 mmol/L (0.7-2.0) 09/07/16 15:00 Calcium 8.2 mg/dL (8.4-10.2) L 10/04/16 08:00 Phosphorus 3.60 mg/dL (2.5-4.5) 08/29/16 21:59 Magnesium 1.50 mg/dL (1.7-2.3) L 09/30/16 08:30 Total Bilirubin 0.70 mg/dL (0.1-1.2) 09/11/16 05:00 AST 167 units/L (5-40) H 09/11/16 05:00 ALT 145 units/L (7-56) H 09/11/16 05:00 Alkaline Phosphatase 631 units/L (35-129) H 09/11/16 05:00 Ammonia 39.0 umol/L (25-60) 09/07/16 15:00 Total Creatine Kinase 36 units/L (30-135) 09/06/16 11:07 CK-MB (CK-2) < 1.0 ng/mL (0.0-4.0) 09/06/16 11:07 CK-MB (CK-2) Rel Index 2.7 (0-4) 09/06/16 11:07 Troponin T 0.080 ng/mL (0.00-0.029) H 09/06/16 11:07 C-Reactive Protein 10.20 mg/dL (0.00-1.30) H 08/30/16 22:20 NT-Pro-B Natriuret Pep 1712 pg/mL (0-900) H 08/29/16 17:40 Total Protein 5.1 g/dL (6.3-8.2) L 09/11/16 05:00 Albumin 1.6 g/dL (3.9-5) L 09/11/16 05:00 Albumin/Globulin Ratio 0.5 % 09/11/16 05:00 Prealbumin 0.120 g/L (0.200-0.400) L 08/29/16 21:59 Triglycerides 225 mg/dL (2-149) H 08/29/16 17:40 Cholesterol 130 mg/dL (50-199) 08/29/16 17:40 LDL Cholesterol Direct 82 mg/dL (50-130) 08/29/16 17:40 HDL Cholesterol 3 mg/dL (40-59) L 08/29/16 17:40 Cholesterol/HDL Ratio 43.33 % 08/29/16 17:40 TSH 5.220 mlU/mL (0.270-4.200) H 09/09/16 18:10 Urine Color Yellow (Yellow) 08/31/16 15:37 Urine Turbidity Clear (Clear) 08/31/16 15:37 Urine pH 5.0 (5.0-7.0) 08/31/16 15:37 Ur Specific [place] 1.009 (1.003-1.030) 08/31/16 15:37 Urine Protein <15 mg/dl mg/dL (Negative) 08/31/16 15:37 Urine Glucose (UA) Neg mg/dL (Negative) 08/31/16 15:37 Urine Ketones Neg mg/dL (Negative) 08/31/16 15:37 Urine Blood Sm (Negative) 08/31/16 15:37 Urine Nitrite Neg (Negative) 08/31/16 15:37 Urine Bilirubin Neg (Negative) 08/31/16 15:37 Urine Urobilinogen < 2.0 mg/dL (<2.0) 08/31/16 15:37 Ur Leukocyte Esterase Sm (Negative) 08/31/16 15:37 Urine WBC (Auto) 3.0 /HPF (0.0-6.0) 08/31/16 15:37 Urine RBC (Auto) 1.0 /HPF (0.0-6.0) 08/31/16 15:37 U Epithel Cells (Auto) < 1.0 /HPF (0-13.0) 08/31/16 15:37 Urine Bacteria (Auto) 1+ /HPF (Negative) 08/31/16 15:37 Hyaline Casts 5 /LPF 08/31/16 15:37 Urine Mucus Few /HPF 08/31/16 15:37 Blood Type O POSITIVE 09/21/16 08:20 Antibody Screen TNR 09/21/16 08:20 PATRICK Antibody Screen Negative 09/21/16 08:20 Crossmatch See Detail 09/21/16 08:20
[2016-10-05 18:52] VITALS: BP 141/51
== END 2016-10-05 21:00 | disposition short-term general hospital (02) | DRG 3 ==
LOC: ED 15:47 → CC1 21:57
PROVIDERS: ADMIT Internal Medicine; ATTEND Internal Medicine
PROC: 30233N1 Transfusion of Nonautologous Red Blood Cells into Peripheral Vein, Percutaneous Approach (ICD-10-PCS; 2016-08-29)
PROC: 05H633Z Insertion of Infusion Device into Left Subclavian Vein, Percutaneous Approach (ICD-10-PCS; 2016-08-29)
PROC: B547ZZA Ultrasonography of Left Subclavian Vein, Guidance (ICD-10-PCS; 2016-08-29)
PROC: 4A033R1 Measurement of Arterial Saturation, Peripheral, Percutaneous Approach (ICD-10-PCS; 2016-09-05)
PROC: 5A1955Z Respiratory Ventilation, Greater than 96 Consecutive Hours (ICD-10-PCS; principal; 2016-09-17)
PROC: 0BH17EZ Insertion of Endotracheal Airway into Trachea, Via Natural or Artificial Opening (ICD-10-PCS; 2016-09-17)
PROC: 0B110F4 Bypass Trachea to Cutaneous with Tracheostomy Device, Open Approach (ICD-10-PCS; 2016-10-01)
PROC: 0FN04ZZ Release Liver, Percutaneous Endoscopic Approach (ICD-10-PCS; 2016-10-01)
PROC: 0DNS4ZZ (ICD-10-PCS; 2016-10-01)
PROC: 0DNT4ZZ (ICD-10-PCS; 2016-10-01)
PROC: 0DH64UZ Insertion of Feeding Device into Stomach, Percutaneous Endoscopic Approach (ICD-10-PCS; 2016-10-01)
DX: A41.9 Sepsis, unspecified organism (principal); J96.20 Acute and chronic respiratory failure, unspecified whether with hypoxia or hypercapnia; G92 Toxic encephalopathy; N17.0 Acute kidney failure with tubular necrosis; I21.4 Non-ST elevation (NSTEMI) myocardial infarction; E43 Unspecified severe protein-calorie malnutrition; R65.21 Severe sepsis with septic shock; I48.0 Paroxysmal atrial fibrillation; E66.01 Morbid (severe) obesity due to excess calories; Z68.45 Body mass index [BMI] 70 or greater, adult; L89.90 Pressure ulcer of unspecified site, unspecified stage; E11.65 Type 2 diabetes mellitus with hyperglycemia; E03.9 Hypothyroidism, unspecified; D64.9 Anemia, unspecified; G40.901 Epilepsy, unspecified, not intractable, with status epilepticus; I34.2 Nonrheumatic mitral (valve) stenosis; E87.2 Acidosis; Z66 Do not resuscitate; R53.2 Functional quadriplegia; E87.1 Hypo-osmolality and hyponatremia; Z79.4 Long term (current) use of insulin; I13.0 Hypertensive heart and chronic kidney disease with heart failure and stage 1 through stage 4 chronic kidney disease, or unspecified chronic kidney disease; E11.22 Type 2 diabetes mellitus with diabetic chronic kidney disease; N18.3 Chronic kidney disease, stage 3 (moderate); I50.33 Acute on chronic diastolic (congestive) heart failure; T68.XXXA Hypothermia, initial encounter; D68.59 Other primary thrombophilia; Z74.01 Bed confinement status
CPT/HCPCS: 36415; 36600; 71010; 74000; 76770; 80048; 80053; 80061; 81001; 82140; 82270; 82550; 82553; 82803; 82805; 82962; 83735; 83880; 84100; 84132; 84134; 84443; 84484; 85007; 85025; 85027; 85610; 85730; 86140; 86403; 86850; 86900; 86901; 86920; 87040; 87070; 87076; 87086; 87186; 87205; 90732; 93005; 93010; 94002; 94003; 94640; 95819; 96361; 96365; 96375; C9113; J0282; J0330; J0690; J0692; J0696; J1165; J1265; J1644; J1650; J1720; J1815; J1818; J1940; J1953; J1956; J2060; J2250; J2370; J2405; J2543; J2560; J2704; J2765; J2916; J2920; J3010; J3246; J3475; J3480; J7030; J7040; J7042; J7050; J7060; P9016; Q9968